=== PATIENT | male | born 1960 | race Caucasian/White ===

== ENCOUNTER 2016-11-13 13:08 | Inpatient (IN) | payer OTHER ==
[~2016-11-13] VITALS: Ht 185.4 cm; Wt 119.5 kg
[2016-11-13] MEDS ORDERED: SODIUM CHLOR 0.9% 1000 ML INJ 1,000 ML IV SCH ×2 (13:24)
--- NOTE | 2016-11-13 13:27 | PD ---
HPI Chief Complaint: general weakness Time Seen by Provider: 13:27 Travel History International Travel<30 days: No Contact w/Intl Traveler<30days: No History of Present Illness HPI 56-year-old male is brought to the emergency department by EMS for evaluation of generalized weakness for about 2 weeks. Per EMS report the patient initially had an oxygen saturation of 88% on room air. He was given 1 albuterol nebulizer and Solu-Medrol 125 mg IV. Once placed on oxygen his saturation improved to 95% on 2 L. The patient states that he's "felt sick" for the last 2 weeks. States that he has had a productive cough. States he has had some shortness of breath over the last several days as well. Denies fever, chills, nausea, vomiting, diarrhea, chest pain, abdominal pain. States that he feels a little confused and "out of it." He denies any alcohol or drug use. He denies any medical history. States that he has a remote history of smoking cigarettes for 20 years. States that his neighbor called 911 because he had seen him in several days because he's been laying in bed for about one week. No other complaints. Does not have a PCP. [facility] Social History Alcohol Use: No Tobacco Use: No (remote history) Substance Use: No (remote history of marijuana use) Allergies-Medications (Allergen,Severity, Reaction): Coded Allergies: No Known Allergies (Unverified , 11/13/16) Reported Meds & Prescriptions Reported Meds & Active Scripts Active No Active Prescriptions or Reported Medications Review of Systems Except as stated in HPI: all other systems reviewed are Neg Physical Exam Narrative GENERAL: Well-nourished and well-developed male patient in no acute distress who is nontoxic appearing. SKIN: Warm and dry. Few scattered erythematous lesions to bilateral lower legs. HEAD: Normocephalic and atraumatic. EYES: No injection, drainage, or hyphema noted. PERRLA. EOMI. ENT: No nasal drainage noted. Oropharynx is clear. NECK: Supple and the trachea is midline. CARDIOVASCULAR: Regular rate and rhythm. RESPIRATORY: Mild wheeze to right upper lobe. No accessory muscle use, rhonchi , or crackles. GASTROINTESTINAL: Abdomen is soft, non-tender, and nondistended. MUSCULOSKELETAL: Mild swelling of bilateral ankles. Negative Jaime's sign. No obvious deformities, cyanosis, or ecchymosis is present throughout the upper and lower extremities. Patient has full range of motion without any signs of neurovascular compromise. NEUROLOGICAL: Awake, alert, and oriented. Normal speech and gait. Cranial nerves are grossly intact. Data Data Last Documented VS Vital Signs Date Time Temp Pulse Resp B/P Pulse Ox O2 Delivery O2 Flow Rate FiO2 11/13/16 14:54 104 20 115/68 96 Nasal Cannula 4 11/13/16 13:38 98.6 Orders Complete Blood Count With Diff (11/13/16 13:24) Comprehensive Metabolic Panel (11/13/16 13:24) Act Partial Throm Time (Ptt) (11/13/16 13:24) Prothrombin Time / Inr (Pt) (11/13/16 13:24) Urinalysis - C+S If Indicated (11/13/16 13:24) Influenzae A/B Antigen (11/13/16 13:24) Iv Access Insert/Monitor (11/13/16 13:24) Electrocardiogram (11/13/16 13:24) Ecg Monitoring (11/13/16 13:24) Oximetry (11/13/16 13:24) Oxygen Administration (11/13/16 13:24) Chest, Single Ap (11/13/16 13:24) Sodium Chloride 0.9% Flush (Ns Flush) (11/13/16 13:30) Albuterol-Ipratropium Neb (Duoneb Neb) (11/13/16 13:30) Blood Culture (11/13/16 13:24) Ct Brain W/O Iv Contrast(Rout) (11/13/16 13:24) Sodium Chloride 0.9% Flush (Ns Flush) (11/13/16 13:30) Sodium Chlor 0.9% 1000 Ml Inj (Ns 1000 M (11/13/16 13:24) Sodium Chlor 0.9% 1000 Ml Inj (Ns 1000 M (11/13/16 13:24) Alcohol (Ethanol) (11/13/16 13:26) Drug Screen, Random Urine (11/13/16 13:26) Ct Pulmonary Angiogram (11/13/16 13:28) Lactic Acid Sepsis Protocol (11/13/16 14:15) Blood Culture (11/13/16 14:15) Piperacil-Tazo 4.5 Gm Premix (Zosyn 4.5 (11/13/16 14:15) Azithromycin Inj (Zithromax Inj) (11/13/16 14:15) Isolation 08,20 (11/13/16 14:28) Equip, Isolation Cart (11/13/16 14:28) Iohexol 350 Inj (Omnipaque 350 Inj) (11/13/16 16:08) Invasive Rad Dept Consult (11/13/16 16:22) Us Guided Thoracentesis (11/13/16 ) Amylase, Pleural Fluid (11/13/16 16:23) Glucose, Pleural Fluid (11/13/16 16:23) Ldh, Pleural Fluid (11/13/16 16:23) Pleural Fluid Ph (11/13/16 16:23) Pleural Fl Cell Count + Diff (11/13/16 16:23) Fluid Culture And Gram Stain (11/13/16 16:23) Fluid Afb Culture And Stain (11/13/16 16:23) Fluid Fungus Culture And Stain (11/13/16 16:23) Cytology Request For Service (11/13/16 16:23) Total Protein, Pleural Fluid (11/13/16 16:23) Labs Laboratory Tests Test 11/13/16 11/13/16 13:30 14:30 White Blood Count 35.0 TH/MM3 Red Blood Count 4.10 MIL/MM3 Hemoglobin 12.6 GM/DL Hematocrit 37.8 % Mean Corpuscular Volume 92.2 FL Mean Corpuscular Hemoglobin 30.9 PG Mean Corpuscular Hemoglobin 33.5 % Concent Red Cell Distribution Width 14.3 % Platelet Count 389 TH/MM3 Mean Platelet Volume 7.2 FL Neutrophils (%) (Auto) 89.6 % Lymphocytes (%) (Auto) 4.2 % Monocytes (%) (Auto) 5.7 % Eosinophils (%) (Auto) 0.0 % Basophils (%) (Auto) 0.5 % Neutrophils # (Auto) 31.3 TH/MM3 Lymphocytes # (Auto) 1.5 TH/MM3 Monocytes # (Auto) 2.0 TH/MM3 Eosinophils # (Auto) 0.0 TH/MM3 Basophils # (Auto) 0.2 TH/MM3 CBC Comment AUTO DIFF Differential Total Cells 100 Counted Neutrophils % (Manual) 91 % Band Neutrophils % 4 % Lymphocytes % 3 % Monocytes % 1 % Neutrophils # (Manual) 33.6 TH/MM3 Promyelocytes 1 % Differential Comment FINAL DIFF MANUAL Platelet Estimate NORMAL Platelet Morphology Comment NORMAL Prothrombin Time 15.4 SEC Prothromb Time International 1.4 RATIO Ratio Activated Partial 28.0 SEC Thromboplast Time Sodium Level 126 MEQ/L Potassium Level 4.0 MEQ/L Chloride Level 84 MEQ/L Carbon Dioxide Level 34.2 MEQ/L Anion Gap 8 MEQ/L Blood Urea Nitrogen 21 MG/DL Creatinine 0.86 MG/DL Estimat Glomerular Filtration 92 ML/MIN Rate Random Glucose 118 MG/DL Calcium Level 8.2 MG/DL Total Bilirubin 1.4 MG/DL Aspartate Amino Transf 56 U/L (AST/SGOT) Alanine Aminotransferase 48 U/L (ALT/SGPT) Alkaline Phosphatase 176 U/L Total Protein 7.6 GM/DL Albumin 1.6 GM/DL Lactic Acid Level 2.4 mmol/L MDM Medical Decision Making Medical Screen Exam Complete: Yes Emergency Medical Condition: Yes Differential Diagnosis Pneumonia versus sepsis versus dehydration versus PE Narrative Course 56-year-old male is brought to the emergency department by EMS for evaluation of generalized weakness with hypoxia. Patient is afebrile. He is tachycardic with a heart rate of 115 bpm. His oxygen saturation is 88% on room air. Once placed on 2 L of nasal cannula it improved to 95%. IV access is obtained, labs have been drawn and sent. Patient is placed on cardiac telemetry and pulse oximetry monitoring. Patient is given 2 more nebulizer treatments and IV fluids. CBC shows leukocytosis with a white count of 35 with 91% neutrophils. CMP shows hyponatremia with a sodium of 126. Mild dehydration with a BUN of 21. Kidney functions within normal limits. Lactic acid is 2.4. Coags show INR is elevated at 1.4, indicating intrinsic coagulopathy. Chest x-ray shows large 7.7 x 7.8 cm cavitary right midlung mass with associated small to moderate right-sided pleural effusion. Subcentimeter left mid lung pulmonary nodules. Apparently expansile left posterior ninth rib lesion. Overall findings are consistent with metastatic disease. Recommend further evaluation with CT scan. After chest x-ray findings patient is covered with Zosyn 4.5 g and Zithromax 500 mg IV and is placed on respiratory isolation. He does have risk factors for TB with recent night sweats and being [facility] [address] pulmonary angiogram is negative for PE. Shows multiple cavitary lesions within both lungs with the largest measuring 9.5 cm in the right upper lobe. Differential diagnosis includes infectious and neoplastic etiologies. Moderate size right pleural effusion with adjacent compressive atelectasis and/or infiltrate. Cardiomegaly and coronary artery calcifications. Subcarinal mediastinal lymphadenopathy. Degenerative changes throughout the thoracic spine. Patient is reassessed and has remained stable. He is currently on 5 L of nasal cannula with oxygen saturation of 96%. My attending physician spoke with interventional radiology and ordered a thoracentesis of the pleural effusion. The patient will be admitted to the negative turner apprentice service. I discussed the case with my attending physician Dr. Magana who is aware of the patients history, physical examination findings, and treatment plan. Physician Communication Physician Communication My attending physician Dr. Magana spoke with Dr. Padilla with IR and placed an order for thoracentesis. I spoke with Dr. Velez negative turner apprentice who agrees to admit the patient to his service. Diagnosis Primary Impression: Sepsis Qualified Code: A41.9 - Sepsis, due to unspecified organism Additional Impressions: Cavitary lung disease Pleural effusion Admitting Information Admitting Physician Requests: Admit Scripts No Active Prescriptions or Reported Meds Latesha Diego Nov 13, 2016 13:27
[2016-11-13] MEDS ORDERED: SODIUM CHLORIDE 0.9% FLUSH 10 ML FLUSH IVF PRN (13:30)
[2016-11-13] MEDS ORDERED: SODIUM CHLORIDE 0.9% FLUSH 5 ML FLUSH IV FLUSH PRN (13:30)
[2016-11-13 13:33] VITALS: O2SAT 92
[2016-11-13] MEDS: RESP: ALBUTEROL 2.5 MG/IPRATROPIUM 0.5 MG NEB (SCH) INH ×2 (13:33→21:06)
[2016-11-13 13:38] VITALS: BP 133/82; PULSE 115; RESP 22; TEMP 98.6; O2SAT 88
--- NOTE | 2016-11-13 13:52 | RADRPT ---
EXAM DATE/TIME: 11/13/2016 13:25 [facility] COMPARISON: No previous studies available for comparison. INDICATIONS : Short of breath. MEDICAL HISTORY : None. SURGICAL HISTORY : None. ENCOUNTER: Initial ACUITY: 1 day PAIN SCORE: Non-responsive. LOCATION: Bilateral chest FINDINGS: Large cavitary mass in the right midlung measuring 7.7 x 7.8 cm. There is associated [id number] e right-sided pleural effusion with associated right lower lobe airspace disease. There are additiona l subcentimeter nodular opacities noted in the left midlung. Cardiomediastinal contours are within no rmal limits. Apparent expansile mass in the left posterior ninth rib. CONCLUSION: 1. Large 7.7 x 7.8 cm cavitary right mid lung mass with associated small to moderate right-sided pleu ral effusion. 2. Subcentimeter left midlung pulmonary nodules. 3. Apparent expansile left posterior ninth rib lesion. 4. Overall findings are consistent with metastatic disease. Recommend further evaluation with CT exam . Elder Long MD on November 13, 2016 at 13:45 Board Certified Radiologist. This report was verified electronically.
[2016-11-13] MEDS ORDERED: PIPERACIL-TAZO 4.5 GM PREMIX 100 ML IV STA (14:15)
[2016-11-13] MEDS ORDERED: AZITHROMYCIN INJ 500 MG in SODIUM CHLOR 0.9% 250 ML INJ 250 ML IV STA (14:15)
[2016-11-13 14:16] LABS: AUTOMATED NEUTROPHIL # 31.3 TH/MM3 (1.8-7.7); BASOPHIL # 0.2 TH/MM3 (0-0.2); BASOPHIL % 0.5 % (0.0-2.0); HEMATOCRIT 37.8 % (39.0-51.0); LYMPH % 4.2 % (9.0-44.0); LYMPHOCYTE # 1.5 TH/MM3 (1.0-4.8); MEAN CELL VOLUME 92.2 FL (80.0-100.0); MEAN CORPUSCULAR HEMOGLOBIN 30.9 PG (27.0-34.0); MEAN CORPUSCULAR HGB CONC 33.5 % (32.0-36.0); MONO % 5.7 % (0.0-8.0); NEUT % 89.6 % (16.0-70.0); PLATELET COUNT 389 TH/MM3 (150-450); RED CELL DISTRIBUTION WIDTH 14.3 % (11.6-17.2)
[2016-11-13 14:18] LABS: HEMO FLAGS AUTO DIFF
[2016-11-13 14:28] LABS: INTERNATIONAL NORMALIZED RATIO 1.4 RATIO; PROTHROMBIN TIME - PATIENT 15.4 SEC (9.8-11.6)
[2016-11-13 14:29] LABS: ALT (GPT) 48 U/L (12-78); ANION GAP 8 MEQ/L (5-15); AST (GOT) 56 U/L (15-37); BICARBONATE 34.2 MEQ/L (21.0-32.0); BLOOD UREA NITROGEN 21 MG/DL (7-18); CHLORIDE 84 MEQ/L (98-107); GLOMERULAR FILTRATION RATE 92 ML/MIN (>89); SODIUM (NA) 126 MEQ/L (136-145)
[2016-11-13 14:31] LABS: ALKALINE PHOSPHATASE 176 U/L (45-117); TOTAL BILIRUBIN ADULT 1.4 MG/DL (0.2-1.0)
[2016-11-13 14:54] VITALS: BP 115/68; PULSE 104; RESP 20; O2SAT 96
--- NOTE | 2016-11-13 15:17 | PD ---
Data Data Last Documented VS Vital Signs Date Time Temp Pulse Resp B/P Pulse Ox O2 Delivery O2 Flow Rate FiO2 11/13/16 17:10 104 22 112/58 95 Nasal Cannula 5 11/13/16 13:38 98.6 Orders Complete Blood Count With Diff (11/13/16 13:24) Comprehensive Metabolic Panel (11/13/16 13:24) Act Partial Throm Time (Ptt) (11/13/16 13:24) Prothrombin Time / Inr (Pt) (11/13/16 13:24) Urinalysis - C+S If Indicated (11/13/16 13:24) Influenzae A/B Antigen (11/13/16 13:24) Iv Access Insert/Monitor (11/13/16 13:24) Electrocardiogram (11/13/16 13:24) Ecg Monitoring (11/13/16 13:24) Oximetry (11/13/16 13:24) Oxygen Administration (11/13/16 13:24) Chest, Single Ap (11/13/16 13:24) Sodium Chloride 0.9% Flush (Ns Flush) (11/13/16 13:30) Albuterol-Ipratropium Neb (Duoneb Neb) (11/13/16 13:30) Blood Culture (11/13/16 13:24) Ct Brain W/O Iv Contrast(Rout) (11/13/16 13:24) Sodium Chloride 0.9% Flush (Ns Flush) (11/13/16 13:30) Sodium Chlor 0.9% 1000 Ml Inj (Ns 1000 M (11/13/16 13:24) Sodium Chlor 0.9% 1000 Ml Inj (Ns 1000 M (11/13/16 13:24) Alcohol (Ethanol) (11/13/16 13:26) Drug Screen, Random Urine (11/13/16 13:26) Ct Pulmonary Angiogram (11/13/16 13:28) Lactic Acid Sepsis Protocol (11/13/16 14:15) Blood Culture (11/13/16 14:15) Piperacil-Tazo 4.5 Gm Premix (Zosyn 4.5 (11/13/16 14:15) Azithromycin Inj (Zithromax Inj) (11/13/16 14:15) Isolation 08,20 (11/13/16 14:28) Equip, Isolation Cart (11/13/16 14:28) Iohexol 350 Inj (Omnipaque 350 Inj) (11/13/16 16:08) Amylase, Pleural Fluid (11/13/16 16:23) Pleural Fluid Ph (11/13/16 16:23) Pleural Fl Cell Count + Diff (11/13/16 16:23) Fluid Culture And Gram Stain (11/13/16 16:23) Fluid Afb Culture And Stain (11/13/16 16:23) Fluid Fungus Culture And Stain (11/13/16 16:23) Cytology Request For Service (11/13/16 16:23) Admit Order (Ed Use Only) (11/13/16 17:08) Labs Laboratory Tests Test 11/13/16 11/13/16 11/13/16 13:26 13:30 14:30 Ethyl Alcohol Level 5 MG/DL White Blood Count 35.0 TH/MM3 Red Blood Count 4.10 MIL/MM3 Hemoglobin 12.6 GM/DL Hematocrit 37.8 % Mean Corpuscular Volume 92.2 FL Mean Corpuscular Hemoglobin 30.9 PG Mean Corpuscular Hemoglobin 33.5 % Concent Red Cell Distribution Width 14.3 % Platelet Count 389 TH/MM3 Mean Platelet Volume 7.2 FL Neutrophils (%) (Auto) 89.6 % Lymphocytes (%) (Auto) 4.2 % Monocytes (%) (Auto) 5.7 % Eosinophils (%) (Auto) 0.0 % Basophils (%) (Auto) 0.5 % Neutrophils # (Auto) 31.3 TH/MM3 Lymphocytes # (Auto) 1.5 TH/MM3 Monocytes # (Auto) 2.0 TH/MM3 Eosinophils # (Auto) 0.0 TH/MM3 Basophils # (Auto) 0.2 TH/MM3 CBC Comment AUTO DIFF Differential Total Cells 100 Counted Neutrophils % (Manual) 91 % Band Neutrophils % 4 % Lymphocytes % 3 % Monocytes % 1 % Neutrophils # (Manual) 33.6 TH/MM3 Promyelocytes 1 % Differential Comment FINAL DIFF MANUAL Platelet Estimate NORMAL Platelet Morphology Comment NORMAL Prothrombin Time 15.4 SEC Prothromb Time International 1.4 RATIO Ratio Activated Partial 28.0 SEC Thromboplast Time Sodium Level 126 MEQ/L Potassium Level 4.0 MEQ/L Chloride Level 84 MEQ/L Carbon Dioxide Level 34.2 MEQ/L Anion Gap 8 MEQ/L Blood Urea Nitrogen 21 MG/DL Creatinine 0.86 MG/DL Estimat Glomerular Filtration 92 ML/MIN Rate Random Glucose 118 MG/DL Calcium Level 8.2 MG/DL Total Bilirubin 1.4 MG/DL Aspartate Amino Transf 56 U/L (AST/SGOT) Alanine Aminotransferase 48 U/L (ALT/SGPT) Alkaline Phosphatase 176 U/L Total Protein 7.6 GM/DL Albumin 1.6 GM/DL Lactic Acid Level 2.4 mmol/L MDM Supervised Visit with KRYSTYNA: Yes Narrative Course I, Dr. Magana, have reviewed the advance practice practitioner's documentation and am in agreement, met with the patient face to face, made the diagnosis, and the medical decision making was done by me. *My assessment and Findings: This is a 56-year-old male who presents hypoxic with fever, sepsis protocol has been ordered. I reviewed his checks to x-ray which shows what could be a lung abscess versus cancer with reactive pleural effusion versus a parapneumonic effusion. Patient appears quite ill. CAT scan was obtained which does indeed show what appears to be a cavitary lesion considering its appearance staph bacteremia needs to be considered. Patient was initially discussed with Dr. Padilla for CT versus ultrasound guided thoracentesis however patient was admitted to Dr. Velez who elected to do this at the bedside. Nearly a liter of fluid was pulled off the patient's chest by Dr. Calix. She was started on broad -spectrum antibiotics. Will be admitted to the ICU. Diagnosis Primary Impression: Cavitary pneumonia Additional Impressions: Cavitary lung disease Severe sepsis Acute respiratory failure with hypoxia Admitting Information Admitting Physician Requests: Admit Scripts No Active Prescriptions or Reported Meds Condition: Serious Jed Magana MD Nov 13, 2016 15:17
[2016-11-13 15:38] LABS: BANDS 4 % (0-6); NEUTROPHIL # MANUAL DIFF 33.6 TH/MM3 (1.8-7.7); POLYS (SEG NEUTROPHILS) 91 % (16-70); PROMYELOCYTES 1 % (0-0); WBC DIFF SAMPLE 100
[2016-11-13 15:39] LABS: PLATELET ESTIMATE SMEAR NORMAL (NORMAL); PLATELET MORPHOLOGY NORMAL (NORMAL); SCAN/DIFF FINAL DIFF MANUAL
[2016-11-13] MEDS ORDERED: IOHEXOL 350 MG/ML 10 ML VIAL (for RAD DIAG) IV ONE (16:08)
--- NOTE | 2016-11-13 16:08 | RADRPT ---
EXAM DATE/TIME: 11/13/2016 15:46 [facility] COMPARISON: No previous studies available for comparison. INDICATIONS : Evaluate for altered mental status. RADIATION DOSE: 69.19 CTDIvol (mGy) MEDICAL HISTORY : None SURGICAL HISTORY : None. ENCOUNTER: Initial ACUITY: 1 week PAIN SCALE: 8/10 LOCATION: Bilateral cranial TECHNIQUE: Multiple contiguous axial images were obtained of the head. Using automated exposure control and adj ustment of the mA and/or kV according to patient size, radiation dose was kept as low as reasonably a chievable to obtain optimal diagnostic quality images. DICOM format image data is available electro nically for review and comparison. FINDINGS: CEREBRUM: Small subcentimeter left periventricular white matter hypodensity likely reflects small lacunar infar ct. The ventricles are normal for age. No evidence of midline shift, mass lesion, hemorrhage or acut e infarction. No extra-axial fluid collections are seen. POSTERIOR FOSSA: The cerebellum and brainstem are intact. The 4th ventricle is midline. The cerebellopontine angle i s unremarkable. EXTRACRANIAL: The visualized portion of the orbits is intact. SKULL: The calvaria is intact. No evidence of skull fracture. Probable small mucus retention cysts in the a ctually sinuses bilaterally. CONCLUSION: 1. No acute intracranial abnormality. Elder Long MD on November 13, 2016 at 16:03 Board Certified Radiologist. This report was verified electronically.
--- NOTE | 2016-11-13 16:24 | RADRPT ---
EXAM DATE/TIME: 11/13/2016 15:50 [facility] COMPARISON: No previous studies available for comparison. INDICATIONS : Evaluate for pulmonary embolism. IV CONTRAST: 75 cc Omnipaque 350 (iohexol) IV RADIATION DOSE: 13.28 CTDIvol (mGy) MEDICAL HISTORY : None SURGICAL HISTORY : None. ENCOUNTER: Initial ACUITY: 1 week PAIN SCALE: 8/10 LOCATION: Bilateral chest TECHNIQUE: Volumetric scanning of the chest was performed using a pulmonary embolism protocol MIP images were re constructed. Using automated exposure control and adjustment of the mA and/or kV according to patien t size, radiation dose was kept as low as reasonably achievable to obtain optimal diagnostic quality images. DICOM format image data is available electronically for review and comparison. FINDINGS: There is no evidence of pulmonary embolism. A moderate sized right pleural effusion is noted. Compr essive atelectasis and/or infiltrate is noted adjacent to the right pleural effusion. There are mult iple cavitary lesions throughout both lungs. The largest cavitary lesion is located within the right upper lobe and measures 9.5 cm in greatest dimension. Differential diagnosis includes infectious an d neoplastic etiologies. Subcarinal lymphadenopathy is noted measuring 2.2 cm in greatest dimension. Coronary artery calcifications are noted. There are scattered un-enlarged pretracheal, precarinal and AP window lymph nodes. No axillary lymphadenopathy is noted. No hilar lymphadenopathy is noted. The heart is enlarged. Degenerative changes are noted throughout the thoracic spine. CONCLUSION: 1. Multiple cavitary lesions within both lungs with the largest measuring 9.5 cm in the right upper lobe. Differential diagnosis includes infectious and neoplastic etiologies. 2. Moderate sized right pleural effusion with adjacent compressive atelectasis and/or infiltrate. 3. Cardiomegaly and coronary artery calcifications. 4. Subcarinal mediastinal lymphadenopathy. 5. Degenerative changes throughout the thoracic spine. Jed Ponce MD on November 13, 2016 at 16:10 Board Certified Radiologist. This report was verified electronically.
[2016-11-13 16:38] LABS: LACTIC ACID GHOST NOT REPORTABLE
[2016-11-13 17:10] VITALS: BP 112/58; PULSE 104; RESP 22; O2SAT 95
[2016-11-13] MEDS ORDERED: CHLORHEXIDINE GLUCONATE 2 % 1 PACK (2 CLOTHS) TOP PRN (17:15)
[2016-11-13] MEDS ORDERED: MISCELLANEOUS NURSING INFORMATION XX SCH (17:15)
[2016-11-13] MEDS ORDERED: Vancomycin Consult Pharmacy 1 EA OTHER SCH (17:30)
[2016-11-13] MEDS ORDERED: VANCOMYCIN INJ 1,250 MG in SODIUM CHLOR 0.9% 250 ML INJ 250 ML IV ONE (17:30)
--- NOTE | 2016-11-13 18:05 | HHI.HP ---
HPI Service Critical Care Medicine Primary Care Physician No Primary Care Physician Admission Diagnosis Sepsis, Pulmonary Cavitary Lesions, Pleural Effusion, Hypoxia Diagnosis: (1) Severe sepsis Diagnosis: Principal (2) Cavitary pneumonia Diagnosis: Principal (3) Pleural effusion Diagnosis: Principal (4) Acute respiratory insufficiency Diagnosis: Principal (5) Hyponatremia Diagnosis: Principal (6) Hypoxia Diagnosis: Principal (7) Leukocytosis Diagnosis: Principal Chief Complaint: Severe sepsis Encephalopathy Travel History International Travel<30 Days: No Contact w/Intl Traveler <30 Da: No Traveled to Known Affected Are: No Sepsis Criteria SIRS Criteria (2 or more): Heart rate over 90, RR > 20 or PaCO2 < 32, WBC > 78031, < 4000 or > 10% bands Sepsis Criteria (SIRS+source): Infect source susp/known Severe Sepsis (+one): Lactate >2 Criteria Outcome: Meets severe sepsis criteria History of Present Illness 56-year-old male is brought to the emergency department by EMS for evaluation of generalized weakness, confusion for about 2 weeks, and also increasing shortness of breath. His oxygen saturation was 88% on room air. EMS administered breathing treatments and Solu-Medrol 125 mg 1 and placed him on nasal cannula. Patient states that he had been sick for almost 10 days, but he is a poor historian. He had a productive cough, but reports no hematemesis or weight loss. He states that it was his neighbor who made him called EMS. He has no past medical history and last time had seen a doctor was about 15 years ago. He denies any fevers but reports some night sweats and chills. He was tachycardic with a heart rate of 115 bpm, had severe leukocytosis with a white count of 35,000 with 91% neutrophils. CMP shows hyponatremia with a sodium of 126. Lactic acid is 2.4. His Chest x-ray shows large 7.7 x 7.8 cm cavitary right midlung lesion with associated right-sided pleural effusion. Subcentimeter left mid lung pulmonary nodules. Patient received 1 L normal saline bolus and Zosyn 4.5 g and Zithromax 500 mg IV and was placed on TB/ respiratory isolation. He has been being in halfway 2 years ago increasing his risk of tuberculosis. CT pulmonary angiogram negative for PE but showed multiple cavitary lesions within both lungs with the largest measuring 9.5 cm in the right upper lobe. Moderate size right pleural effusion. I evaluated the patient in the emergency department. Patient appears critically ill in moderate distress mildly tachypneic, sweating. I performed a bedside ultrasound which showed a right effusion which is large. The thoracentesis was performed and 1 L of cloudy dark pleural fluid was removed. Patient will be continued on Zosyn and Levaquin and vancomycin. ID consulted and I discussed with Dr. Kraus-she recommended no empiric treatments for TB. Review of Systems ROS Limitations: Other (as per HPI) Past Family Social History Allergies: Coded Allergies: No Known Allergies (Unverified , 11/13/16) Past Medical History No significant past medical history Quit smoking in 1996 Past Surgical History No surgeries Reported Medications No medications Active Ordered Medications Received Zosyn and azithromycin in the ER Family History Patient does not give any pertinent family history Social History Quit smoking in 1996. No alcohol abuse. History of cocaine and cannabis use in Physical Exam Vital Signs Vital Signs Date Time Temp Pulse Resp B/P Pulse Ox O2 Delivery O2 Flow Rate FiO2 11/13/16 17:10 104 22 112/58 95 Nasal Cannula 5 11/13/16 14:54 104 20 115/68 96 Nasal Cannula 4 11/13/16 13:42 94 Nasal Cannula 3 11/13/16 13:38 98.6 115 22 133/82 88 11/13/16 13:33 92 Nasal Cannula 4.00 Physical Exam GENERAL: Well-nourished and well-developed male patient in moderate respiratory distress, sweating, appears toxic SKIN: Warm and dry. Scattered skin lesions erythematous predominantly left lower extremity, (probable bug bites per patient) HEAD: Normocephalic and atraumatic. EYES: No injection, drainage. PERRLA. ENT: No nasal drainage noted. Oropharynx is clear. NECK: Supple and the trachea is midline. CARDIOVASCULAR: Tachycardic, no murmurs. RESPIRATORY: Patient is tachypneic with mild accessory muscle use, bilateral mild expiratory wheezing and few crackles scattered GASTROINTESTINAL: Abdomen is soft, non-tender, and nondistended. MUSCULOSKELETAL: Mild swelling of bilateral ankles. Multiple erythematous raised lesions on bilateral lower extremity predominantly left lower leg NEUROLOGICAL: Awake, alert. Normal speech. Cranial nerves are grossly intact. Laboratory Laboratory Tests Test 11/13/16 11/13/16 13:30 14:30 White Blood Count 35.0 Red Blood Count 4.10 Hemoglobin 12.6 Hematocrit 37.8 Mean Corpuscular Volume 92.2 Mean Corpuscular Hemoglobin 30.9 Mean Corpuscular Hemoglobin 33.5 Concent Red Cell Distribution Width 14.3 Platelet Count 389 Mean Platelet Volume 7.2 Neutrophils (%) (Auto) 89.6 Lymphocytes (%) (Auto) 4.2 Monocytes (%) (Auto) 5.7 Eosinophils (%) (Auto) 0.0 Basophils (%) (Auto) 0.5 Neutrophils # (Auto) 31.3 Lymphocytes # (Auto) 1.5 Monocytes # (Auto) 2.0 Eosinophils # (Auto) 0.0 Basophils # (Auto) 0.2 CBC Comment AUTO DIFF Differential Total Cells 100 Counted Neutrophils % (Manual) 91 Band Neutrophils % 4 Lymphocytes % 3 Monocytes % 1 Neutrophils # (Manual) 33.6 Promyelocytes 1 Differential Comment FINAL DIFF MANUAL Platelet Estimate NORMAL Platelet Morphology Comment NORMAL Prothrombin Time 15.4 Prothromb Time International 1.4 Ratio Activated Partial 28.0 Thromboplast Time Sodium Level 126 Potassium Level 4.0 Chloride Level 84 Carbon Dioxide Level 34.2 Anion Gap 8 Blood Urea Nitrogen 21 Creatinine 0.86 Estimat Glomerular Filtration 92 Rate Random Glucose 118 Calcium Level 8.2 Total Bilirubin 1.4 Aspartate Amino Transf 56 (AST/SGOT) Alanine Aminotransferase 48 (ALT/SGPT) Alkaline Phosphatase 176 Total Protein 7.6 Albumin 1.6 Lactic Acid Level 2.4 Date/Time Procedure Status Source Growth 11/13/16 14:00 Influenza Types A,B Antigen ([facility]) - Final Complete Nasal Washing NEGATIVE FOR FLU A AND B ANTIGEN.... 11/13/16 13:30 Aerobic Blood Culture Received Blood Peripheral Pending 11/13/16 13:30 Anaerobic Blood Culture Received Blood Peripheral Pending Result Diagram: 11/13/16 1330 11/13/[address] of the chest shows multiple cavitated relations, large 9.5 cm cavitated lesion in the right upper lobe, moderate-sized right pleural effusion Septic Shock Reassessment Heart: Irregular, Other (tachycardic) Lungs: Course, Crackles Skin: Warm Peripheral Pulses: Bounding Right Radial Bounding Left Radial Capillary Refill: Brisk Assessment and Plan Assessment and Plan NEURO: Metabolic encephalopathy - His encephalopathy seems to be secondary to severe sepsis - Minimize sedation RESP: Bilateral cavitary lung lesions/most likely cavitating pneumonia Respiratory insufficiency with hypoxia Large right pleural effusion - Right thoracentesis with 1 L cloudy yellow fluid removed, fluid cell studies pending - Patient will need pig tail chest tube if pleural effusion is parapneumonic - Broad-spectrum antibiotics with vancomycin and Zosyn and Levaquin - DuoNeb every 6 hours and when necessary - AFB isolation, sputum culture including AFB stain - Pulmonology consult pending - Patient's presentation more consistent with cavitating bacterial pneumonia, cannot rule out tuberculosis or malignancy - Await fluid studies CV: Lactic acidosis - Normal saline IV fluids 3L bolus and 84 ml per hour - 2d echo to rule out infective endocarditis - Trend lactic acid GI: - Once clinically stable, heart healthy diet, IV Protonix - CT of the abdomen pelvis to rule out any evidence of metastatic disease or abscesses : - Monitor renal function closely. Fluid resuscitation as above ID: Severe sepsis Multilobar cavitating pneumonia - IV vancomycin, pharmacy to dose. Zosyn 4.5 g every 6 hours. Levaquin 750 mg daily - Discussed with ID Dr. Kraus, no indication for empiric treatment for TB - Follow-up on blood sputum cultures, send urine for Legionella and pneumococcal antigen HEME: - Monitor CBC, CMP, coags ENDO: Hyponatremia - Hyponatremia may be secondary to SIADH from pneumonia versus malignancy - Electrolyte Replacement per protocol PROPH: - Bilateral lower extremity SCDs. Lovenox, IV Protonix for prophylaxis LINES: - Utilize peripheral IVs, central line if needed CC time 77 min excluding procedures Code Status Full Discussed Condition With Jan Jay MD Nov 13, 2016 18:05
[2016-11-13] MEDS ORDERED: VANCOMYCIN INJ 2,000 MG in SODIUM CHLORID 0.9% 500 ML INJ 500 ML IV ONE (18:10)
--- NOTE | 2016-11-13 18:21 | PD.PROCEDR ---
Procedure Note Procedure Procedure Notes: Thoracentesis Indication: Large right pleural effusion A time-out was completed verifying correct patient, procedure, site, positioning , and special equipment if applicable. The patient's right side was prepped and draped in a sterile manner after the appropriate infiltration level was confirmed by ultrasound. 1% lidocaine was used anesthetize the surrounding skin. A 10-blade scalpel used to make the incision. The thoracentesis Angio cath was then introduced without difficulty and needle was removed. Catheter was connected to Vacutainer bottle and 1000 ml (1L) of cloudy dark yellow fluid was removed. A post-procedure chest x-ray was ordered and the fluid will be sent for several studies. Estimated Blood Loss: <1 ml The patient tolerated the procedure well and there were no immediate complications. Fluid send out for further studies Jan Velez MD Nov 13, 2016 18:21
[2016-11-13] MEDS: SODIUM CHLOR 0.9% 1000 ML INJ 1,000 ML IV SCH (18:22)
[2016-11-13] MEDS: LEVOFLOXACIN 750 MG PREMIX INJ 150 ML IV SCH (18:23)
[2016-11-13] MEDS ORDERED: SODIUM CHLOR 0.9% 1000 ML INJ 1,000 ML IV ONE ×2 (18:30→19:00)
--- NOTE | 2016-11-13 18:43 | RADRPT ---
EXAM DATE/TIME: 11/13/2016 18:32 [facility] COMPARISON: CT PULMONARY ANGIOGRAM, November 13, 2016, 15:50. CHEST SINGLE AP, November 13, 2016, 13:25. INDICATIONS : Post right side thoracentesis. Multiple cavitary lesions in both lungs. MEDICAL HISTORY : None. SURGICAL HISTORY : None. ENCOUNTER: Initial ACUITY: 1 day PAIN SCORE: 0/10 LOCATION: Right chest FINDINGS: A single AP expiratory erect view of the chest was obtained and demonstrates an interval decrease in the right pleural effusion with no visualized pneumothorax. There is a small residual right effusion. A large cavitary mass is again noted in the right midlung. There is mild patchy opacity in the left lung. The heart size remains within normal limits. The bony thorax is intact. CONCLUSION: 1. Interval decrease in the right pleural effusion with no visualized pneumothorax. 2. Large cavitary mass again noted in the right midlung. Krzysztfo Mendez MD on November 13, 2016 at 18:38 Board Certified Radiologist. This report was verified electronically.
--- NOTE | 2016-11-13 18:54 | RADRPT ---
EXAM DATE/TIME: 11/13/2016 18:33 [facility] COMPARISON: No previous studies available for comparison. INDICATIONS : Patient with shortness of breath, right effusion and multiple cavitary pulmonary masses. Evaluate for metastasis. ORAL CONTRAST: No oral contrast ingested. RADIATION DOSE: 10.03 CTDIvol (mGy) MEDICAL HISTORY : None SURGICAL HISTORY : None. ENCOUNTER: Initial ACUITY: 1 day PAIN SCALE: 0/10 LOCATION: TECHNIQUE: Volumetric scanning of the abdomen and pelvis was performed. Using automated exposure control and ad justment of the mA and/or kV according to patient size, radiation dose was kept as low as reasonably achievable to obtain optimal diagnostic quality images. DICOM format image data is available electro nically for review and comparison. FINDINGS: LOWER LUNGS: There is a right basilar effusion again noted which appears partially loculated. There is mild consol idation in the right lung base. There are multiple small scattered cavitary masses in the left lower lobe as well as a larger cavitary mass in the posterior lung base measuring up to 2 cm. There is a ca vitary mass in the right lung base as well. LIVER: Homogeneous density without lesion. There is no dilation of the biliary tree. No calcified gallston es. The gallbladder is contracted. SPLEEN: Normal size without lesion. There is apparent small adjacent splenule. PANCREAS: Within normal limits. KIDNEYS: Normal in size and shape. There is no solid mass, stone, or hydronephrosis. Excreted contrast is not ed in the kidneys, ureters and bladder. There is an apparent small simple cyst in the upper pole the right kidney measuring approximately 11 mm. ADRENAL GLANDS: Within normal limits. VASCULAR: There is no aortic aneurysm. BOWEL/MESENTERY: No oral contrast was given limiting the sensitivity of the exam. The stomach, small bowel, and colon demonstrate no acute abnormality. There is no free intraperitoneal air or fluid. ABDOMINAL WALL: Within normal limits. RETROPERITONEUM: There is no lymphadenopathy. BLADDER: No wall thickening or mass. REPRODUCTIVE: Within normal limits. INGUINAL: There is no lymphadenopathy or hernia. MUSCULOSKELETAL: Within normal limits for patient age. CONCLUSION: 1. No definite evidence of metastatic disease within the abdomen or pelvis on this noncontrast exam. No oral contrast was given limiting sensitivity. 2. Ultiple cavitary masses in both lung bases again noted. 3. Excreted contrast in the kidneys from prior CT. 4. Apparent small simple cyst in the upper pole of the right kidney. 5. Loculated right effusion with mild consolidation. Krzysztof Mendez MD on November 13, 2016 at 18:46 Board Certified Radiologist. This report was verified electronically.
[2016-11-13] MEDS ORDERED: RESP: ALBUTEROL 2.5 MG/IPRATROPIUM 0.5 MG NEB (SCH) INH (20:00)
[2016-11-13 20:52] VITALS: BP 132/83; PULSE 97; RESP 20; TEMP 97.7; O2SAT 98
[2016-11-13] MEDS: DOCUSATE SODIUM 50 MG/SENNA 8.6 MG TAB PO SCH (21:00)
[2016-11-13] MEDS: SODIUM CHLORIDE 0.9% FLUSH 10 ML FLUSH IV FLUSH SCH (21:00)
[2016-11-13 21:04] LABS: PLEURAL FLUID PH 8.5
[2016-11-13] MEDS: ENOXAPARIN SODIUM 40 MG/0.4 ML SYRINGE SQ SCH (21:06)
[2016-11-13] MEDS: PIPERACIL-TAZO 4.5 GM PREMIX 100 ML IV SCH (21:06)
[2016-11-13 21:07] VITALS: O2SAT 98
[2016-11-13 21:10] LABS: PLEURAL FLUID LYMPHS 12 %
[2016-11-14] VITALS (12 sets, daily range): BP systolic 120–162; BP diastolic 67–95; PULSE 88–100; RESP 14–29; TEMP 96.3–97.8; O2SAT 89–99
[2016-11-14] MEDS: RESP: ALBUTEROL 2.5 MG/IPRATROPIUM 0.5 MG NEB (SCH) INH ×4 (03:36→22:43)
[2016-11-14] MEDS: CHLORHEXIDINE GLUCONATE 2 % 1 PACK (2 CLOTHS) TOP SCH (03:39)
[2016-11-14] MEDS: PIPERACIL-TAZO 4.5 GM PREMIX 100 ML IV SCH ×4 (03:39→21:36)
[2016-11-14] MEDS: SODIUM CHLOR 0.9% 1000 ML INJ 1,000 ML IV SCH ×2 (03:39→17:43)
[2016-11-14] MEDS: VANCOMYCIN INJ 1,250 MG in SODIUM CHLOR 0.9% 250 ML INJ 250 ML IV SCH ×2 (03:42→17:51)
--- NOTE | 2016-11-14 03:48 | RADRPT ---
EXAM DATE/TIME: 11/14/2016 03:07 [facility] COMPARISON: CHEST SINGLE AP, November 13, 2016, 18:32. INDICATIONS : Shortness of breath, possible pulmonary disease. MEDICAL HISTORY : Sepsis. Hypoxia SURGICAL HISTORY : Thoracentesis ENCOUNTER: Subsequent ACUITY: 2 days PAIN SCORE: 0/10 LOCATION: Bilateral chest FINDINGS: Cavitary mass right midlung measures 9.5 cm superior/inferior extent. Focal thickening along collate ral margin and associated blunting of the costophrenic angle. The appearance is similar to prior exa m. In the left lung peripheral mid and upper region, there are 2 new small focal areas of infiltrate . Heart is normal size. CONCLUSION: 1. Stable cavitary lesion in the right mid chest, right pleural effusion and elevation right hemidiap hragm. 2. New small infiltrates in the lateral left mid and upper left lung. Keyur Sauceda MD on November 14, 2016 at 3:44 Board Certified Radiologist. This report was verified electronically.
[2016-11-14 04:40] LABS: AUTOMATED NEUTROPHIL # 27.3 TH/MM3 (1.8-7.7); BASOPHIL # 0.1 TH/MM3 (0-0.2); BASOPHIL % 0.3 % (0.0-2.0); EOSINOPHIL % 0.1 % (0.0-4.0); HEMATOCRIT 34.1 % (39.0-51.0); HEMO FLAGS DIFF FINAL; LYMPH % 2.5 % (9.0-44.0); LYMPHOCYTE # 0.7 TH/MM3 (1.0-4.8); MEAN CELL VOLUME 92.7 FL (80.0-100.0); MEAN CORPUSCULAR HEMOGLOBIN 30.9 PG (27.0-34.0); MEAN CORPUSCULAR HGB CONC 33.3 % (32.0-36.0); MONO % 2.5 % (0.0-8.0); NEUT % 94.6 % (16.0-70.0); PLATELET COUNT 302 TH/MM3 (150-450); RED BLOOD COUNT 3.68 MIL/MM3 (4.50-5.90); RED CELL DISTRIBUTION WIDTH 14.2 % (11.6-17.2); WHITE BLOOD COUNT 28.9 TH/MM3 (4.0-11.0)
[2016-11-14 05:05] LABS: ALKALINE PHOSPHATASE 152 U/L (45-117); ALT (GPT) 42 U/L (12-78); ANION GAP 8 MEQ/L (5-15); AST (GOT) 36 U/L (15-37); BICARBONATE 30.5 MEQ/L (21.0-32.0); BLOOD UREA NITROGEN 18 MG/DL (7-18); CHLORIDE 98 MEQ/L (98-107); GLOMERULAR FILTRATION RATE 125 ML/MIN (>89); POTASSIUM 3.6 MEQ/L (3.5-5.1); SODIUM (NA) 136 MEQ/L (136-145); TOTAL BILIRUBIN ADULT 0.7 MG/DL (0.2-1.0)
[2016-11-14] MEDS ORDERED: ONDANSETRON HCL 4 MG/2 ML VIAL IV PUSH PRN (06:30)
[2016-11-14] MEDS: INSULIN ASPART SUPPLEMENTAL SCALE SQ SCH ×4 (07:00→21:00)
[2016-11-14] MEDS ORDERED: MORPHINE SULFATE 8 MG/ML INJ ONE (07:01)
[2016-11-14] MEDS ORDERED: MORPHINE SULFATE 4 MG/ML INJ IV ONE ×3 (07:15→13:45)
--- NOTE | 2016-11-14 08:07 | EKG ---
Date Performed: 11/13/2016 Time Performed: 13:55:18 PTAGE: 56 years EKG: SINUS TACHYCARDIA POSSIBLE LEFT ATRIAL ENLARGEMENT ABNORMAL RHYTHM ECG NO PREVIOUS TRACING DOCTOR: Heriberto Prince Interpretating Date/Time 11/14/2016 08:01:02
--- NOTE | 2016-11-14 08:28 | HHI.CCPN ---
Subjective Remarks/Hospital Course 56-year-old male is brought to the emergency department by EMS for evaluation of generalized weakness, confusion for about 2 weeks, and also increasing shortness of breath. His oxygen saturation was 88% on room air. EMS administered breathing treatments and Solu-Medrol 125 mg 1 and placed him on nasal cannula. Patient states that he had been sick for almost 10 days, but he is a poor historian. He had a productive cough, but reports no hematemesis or weight loss. He states that it was his neighbor who made him called EMS. He has no past medical history and last time had seen a doctor was about 15 years ago. He denies any fevers but reports some night sweats and chills. He was tachycardic with a heart rate of 115 bpm, had severe leukocytosis with a white count of 35,000 with 91% neutrophils. CMP shows hyponatremia with a sodium of 126. Lactic acid is 2.4. His Chest x-ray shows large 7.7 x 7.8 cm cavitary right midlung lesion with associated right-sided pleural effusion. Subcentimeter left mid lung pulmonary nodules. Patient received 1 L normal saline bolus and Zosyn 4.5 g and Zithromax 500 mg IV and was placed on TB/ respiratory isolation. He has been being in longterm 2 years ago increasing his risk of tuberculosis. CT pulmonary angiogram negative for PE but showed multiple cavitary lesions within both lungs with the largest measuring 9.5 cm in the right upper lobe. Moderate size right pleural effusion. I evaluated the patient in the emergency department. Patient appears critically ill in moderate distress mildly tachypneic, sweating. I performed a bedside ultrasound which showed a right effusion which is large. The thoracentesis was performed and 1 L of cloudy dark pleural fluid was removed. Patient will be continued on Zosyn and Levaquin and vancomycin. ID consulted and I discussed with Dr. Kraus-she recommended no empiric treatments for TB. SUBJ 11/14/16: Patient seen and examined complaints of severe epigastric and periumbilical abdominal pain. Patient remains oriented to person. His white count is slightly improved from 35,000-28,9000. Na improved to 136. I have ordered a STAT CT abd/pelvis with IV contrast. Chest x-ray shows reaccumulation of right pleural effusion-fluid chemistries are pending but cell count indicates at least a parapneumonic effusion and patient will need a pigtail chest tube Objective Vital Signs Date Time Temp Pulse Resp B/P Pulse Ox O2 Delivery O2 Flow Rate FiO2 11/14/16 04:00 97.5 100 29 129/95 92 11/13/16 21:07 Nasal Cannula 5.00 Intake and Output 11/13/16 11/13/16 11/14/16 08:00 16:00 00:00 Intake Total 1042 ml Output Total 850 ml Balance 192 ml Result Diagram: 11/14/16 0406 11/14/16 0406 Other Results Microbiology Date/Time Procedure Status Source Growth 11/13/16 14:00 Influenza Types A,B Antigen ([facility]) - Final Complete Nasal Washing NEGATIVE FOR FLU A AND B ANTIGEN.... Imaging CT of the chest shows multiple cavitated relations, large 9.5 cm cavitated lesion in the right upper lobe, moderate-sized right pleural effusion Objective Remarks GENERAL: Well-nourished and well-developed male patient in moderate distress, toxic appearing SKIN: Warm and dry. Scattered skin lesions erythematous predominantly left lower extremity, (probable bug bites per patient) HEAD: Normocephalic and atraumatic. EYES: No injection, drainage. AMURO. ENT: No nasal drainage noted. Oropharynx is clear. NECK: Supple and the trachea is midline. CARDIOVASCULAR: Tachycardic, no murmurs. RESPIRATORY: Patient is slightly tachypneic with mild accessory muscle use, bilateral mild expiratory wheezing and few crackles GASTROINTESTINAL: Abdomen is soft, reports tenderness in the periumbilical region and epigastric region. No rebound or guarding MUSCULOSKELETAL: Mild swelling of bilateral ankles. Multiple erythematous raised lesions on bilateral lower extremity predominantly left lower leg NEUROLOGICAL: Awake, alert. Normal speech. Cranial nerves are grossly intact. Urinary Catheter: Yes Assessment to: Continue A/P Assessment and Plan NEURO: Metabolic encephalopathy - Encephalopathy seems to be secondary to severe sepsis - Minimize sedation - Morphine 2 mg IV every 6 hours when necessary RESP: Bilateral cavitary lung lesions/most likely cavitating pneumonia Respiratory insufficiency with hypoxia Large right pleural effusion - Right thoracentesis with 1 L cloudy yellow fluid removed, fluid cell studies WBC 2,600, chemistry pending - Patient will need pig tail chest tube - Broad-spectrum antibiotics with vancomycin and Zosyn and Levaquin - DuoNeb every 6 hours and when necessary - AFB isolation, sputum culture including AFB stain - Pulmonology consult pending, ID consult pending - Patient's presentation more consistent with cavitating bacterial pneumonia, cannot rule out tuberculosis or malignancy CV: Lactic acidosis - Normal saline IV fluids 3L bolus 11/13/16 and continue 84 ml per hour - 2d echo to rule out infective endocarditis - Trend lactic acid GI: Acute abdominal pain - NPO, IV Protonix. Check amylase, lipase STAT - CT of the abdomen pelvis with IV contrast stat due to 02/25 acute abdominal pain : - Monitor renal function closely. Fluid resuscitation as above ID: Severe sepsis Multilobar cavitating pneumonia - IV vancomycin, pharmacy to dose. Zosyn 4.5 g every 6 hours, Levaquin 750 mg IV daily - Discussed with ID Dr. Kraus, no indication for empiric treatment for TB - Follow-up on blood sputum cultures, f/u urine for Legionella and pneumococcal antigen HEME: - Monitor CBC, CMP, coags ENDO: Hyponatremia - Hyponatremia may be secondary to SIADH from pneumonia versus malignancy - Electrolyte Replacement per protocol PROPH: - Bilateral lower extremity SCDs. Lovenox, IV Protonix for prophylaxis LINES: - Utilize peripheral IVs, central line if needed CC time 45 min excluding procedures Patient remains critically ill with severe sepsis, multilobar cavitating pneumonia, metabolic encephalopathy and now with severe abdominal pain. His respiratory status remains tenuous, and he may progress to respiratory failure requiring intubation Jan Velez MD Nov 14, 2016 08:28
[2016-11-14] MEDS ORDERED: MORPHINE SULFATE 4 MG/ML INJ IV PUSH PRN (09:00)
[2016-11-14] MEDS ORDERED: PANTOPRAZOLE SODIUM 40 MG VIAL IV SCH (09:00)
[2016-11-14] MEDS: SODIUM CHLORIDE 0.9% FLUSH 10 ML FLUSH IV FLUSH SCH ×2 (09:05→21:36)
[2016-11-14] MEDS: DOCUSATE SODIUM 50 MG/SENNA 8.6 MG TAB PO SCH ×2 (09:05→21:35)
[2016-11-14] MEDS ORDERED: IOHEXOL 350 MG/ML 10 ML VIAL (for RAD DIAG) IV ONE (09:59)
--- NOTE | 2016-11-14 11:29 | RADRPT ---
EXAM DATE/TIME: 11/14/2016 09:55 [facility] COMPARISON: CT ABDOMEN & PELVIS W/O CONTRAST, November 13, 2016, 18:33. INDICATIONS : Severe abdominal pain. IV CONTRAST: 85 cc Omnipaque 350 (iohexol) IV ORAL CONTRAST: No oral contrast ingested. RADIATION DOSE: 12.57 CTDIvol (mGy) MEDICAL HISTORY : None SURGICAL HISTORY : None. ENCOUNTER: Initial ACUITY: 1 day PAIN SCALE: 7/10 LOCATION: Umbilical TECHNIQUE: Volumetric scanning of the abdomen and pelvis was performed. Using automated exposure control and ad justment of the mA and/or kV according to patient size, radiation dose was kept as low as reasonably achievable to obtain optimal diagnostic quality images. DICOM format image data is available electro nically for review and comparison. FINDINGS: LOWER LUNGS: Visualized lung bases again demonstrates a slightly loculated small right pleural effusion with multi ple bilateral cavitary masses are unchanged from yesterday's CT exam. LIVER: Homogeneous density without lesion. There is no dilation of the biliary tree. No calcified gallston es. SPLEEN: Normal size without lesion. PANCREAS: Within normal limits. KIDNEYS: Kidneys demonstrate symmetrical enhancement without evidence for radiopaque renal calculi or hydronep hrosis. There is a 2.0 x 2.1 cm ill-defined hypodense lesion in the left renal midpole. There is a st able 1.2 x 1.2 cm hypodense cystic lesion in the superior pole of the right kidney with indeterminate density. Subcentimeter hypodense lesions in the inferior pole of the right kidney are too small to f ully characterize. ADRENAL GLANDS: Within normal limits. VASCULAR: Mild to moderate atherosclerotic calcifications. Non-aneurysmal. BOWEL/MESENTERY: There is concentric luminal narrowing of the gastroduodenal junction which appears similar to yesterd ay's CT examination. There is no definitive associated mass or regional adenopathy. Small bowel is no t dilated. However, there are multiple loops of fluid-filled small bowel which are larger in caliber in comparison to yesterday's exam. This may reflect developing adynamic ileus. Bowel otherwise appear s grossly unremarkable. There is no significant free fluid or drainable fluid collection. ABDOMINAL WALL: Within normal limits. RETROPERITONEUM: There is no lymphadenopathy. BLADDER: No wall thickening or mass. REPRODUCTIVE: Within normal limits. INGUINAL: There is no lymphadenopathy or hernia. MUSCULOSKELETAL: No definite focal lytic or blastic bony lesions. CONCLUSION: 1. Multiple loops of fluid-filled small bowel which are larger in caliber in comparison to yesterday' s examination although not enlarged by size criteria. This may reflect mild enteritis versus developi ng mild adynamic ileus. 2. Persistent luminal narrowing at the gastroduodenal junction without definite focal mass. This is o f uncertain clinical significance and likely reflects gastric contraction. Gastric mass/metastatic di sease is not very likely based on appearance although it cannot be excluded. 3. 2 cm ill-defined hypodense lesion in the left renal mid pole with indeterminate density. Different ial considerations include complex cyst versus metastatic disease in this patient with apparent diffu se metastatic disease in the chest. 4. Redemonstration of multiple bilateral cavitary masses at the lung bases with loculated right pleur al effusion. Elder Long MD on November 14, 2016 at 10:47 Board Certified Radiologist. This report was verified electronically.
[2016-11-14 13:07] LABS: AMYLASE 78 U/L (25-115)
--- NOTE | 2016-11-14 14:50 | MB ---
cc: CARROLL GILBERT MD DATE OF CONSULTATION: 11/14/[address] Velez. REASON FOR CONSULTATION Multiple cavitary lesion. Risk of TB. HISTORY OF PRESENT ILLNESS This is a 56-year-old white male who presented to the emergency department with a 2-week history of weakness. He was noted to have low oxygen saturation. He reported that he had productive cough over the past couple of weeks and was experiencing shortness of breath. The patient is a poor historian. He is oriented to person and time and knows he is in the hospital but does not know which hospital. The patient had temperature of 98.6 degrees in the emergency department and a pulse of 104 and white count of 35,000 and lactic acid level of 2.4. He also was noted to have hyponatremia with sodium of 126. A chest x-ray showed a large cavitary lesion in the right lung and associated right-sided pleural effusion and also smaller left midlung pulmonary nodules. He is also noted to have a lesion at the left 9th rib. The patient was taken for thoracentesis and the fluid showed white count of 2620, 85% neutrophils, 1767 red cells and pH of 8.5. Blood cultures were taken and four bottles from 11/13 has gram-positive cocci. The pleural fluid culture is pending. The gram stain showed no organisms. Sputum culture for AFB is also pending. Pleural fluid culture for AFB is pending. The patient appears a little confused. He was sitting upright in bed and ripped off his cardiac monitoring leads. He tells me that he was getting up to take a shower. The patient denies prior history of pneumonias. He reports to me that he has been sleeping in the dow over the last few weeks. He denies night sweats and chest pain. He denies contact with sick persons. The patient tells me that he was in prison for 2 days approximately 1 year ago. He states that he has never been tested for tuberculosis and has no family members with tuberculosis to which he has been exposed in the past. He states that he may have lost approximately 15 pounds over the past 2-3 weeks. His appetite is good. The patient has several erythematous punctate lesions on the legs particularly the left anterior tibia and left foot and also the right foot with a crop of punctate lesions at the inner aspect of the right foot. He has debris at the soles of the feet. He reports to me that he walks barefoot. He admits to having had problems with shortness of breath with exertion over the last few weeks. He tells me that he has had a cough for about 7 months. His toxicology screen showed alcohol level of 5. The patient denies alcohol use. He denies drug use. PAST MEDICAL HISTORY Negative, per patient. ALLERGIES NO KNOWN DRUG ALLERGIES. MEDICATIONS 1. Vancomycin. 2. Piperacillin/Tazobactam. 3. Levaquin. 4. Insulin. 5. Protonix. 6. Albuterol. 7. Lovenox. 8. Chinyere-Colace. SOCIAL HISTORY The patient denies tobacco, alcohol or illicit drugs. FAMILY HISTORY Noncontributory. REVIEW OF SYSTEMS Pertinent as mentioned above in history of present illness. Otherwise, the patient denies back pain, chest pain, dysuria, night sweats or chills. PHYSICAL EXAMINATION GENERAL: This is a well-developed male who appears well-nourished. He is in no acute distress. VITAL SIGNS: Include temperature of 94 degrees. Temperature earlier today was 97.5. Blood pressure 147/64. Heart rate 94. HEENT: Head is atraumatic. Extraocular movements grossly intact, pupils reactive to light. No icterus. Oropharynx moist mucosa without lesions. No thrush. NECK: Supple without adenopathy. LUNGS: Rhonchi bilateral. HEART: Normal S1-S2 without audible murmurs, rubs or gallops. ABDOMEN: Bowel sounds present, soft, no tenderness appreciated. No palpable masses. RECTAL: Not performed. EXTREMITIES: No clubbing or cyanosis or edema. The distal extremities are cold. No calf tenderness. SKIN: Punctate erythematous lesions at the lower extremities including the left tibia, left foot and right foot which blanches with palpation. NEURO: No gross focal findings. PSYCHE: The patient is calm. He appears somewhat confused. LABORATORY DATA WBC 28.9, 94% neutrophils, hemoglobin 11.4, creatinine 0.66, BUN 18, sodium 136. Liver function tests normal. Alk phos slightly elevated at 152. IMPRESSION 1. Sepsis. Positive blood cultures with gram-positive cocci. 2. Cavitary pulmonary lesions. Questionable etiology. Rule out tuberculosis. 3. Pneumonia. 4. Skin lesions which potentially could be embolic. 5. Leukocytosis secondary to infection. 6. Rule out neoplastic etiology of lung lesions. RECOMMENDATIONS 1. Follow AFB from sputum and pleural fluid. 2. Hold off on TB treatment for now. 3. Continue vancomycin for gram-positive cocci in the blood. 4. Continue Levaquin. 5. Continue piperacillin/Tazobactam. 6. Monitor white blood cell count. 7. Obtain a 2-D echocardiogram to evaluate the heart valve in light of skin lesions and positive blood cultures. Thank you for this consultation. The patient's progress will be followed and further recommendations will be given on followup if necessary. Carroll Gilbert MD FD/KELLY /11:50 AM /2:20 PM
--- NOTE | 2016-11-14 14:51 | PD.CONS ---
HPI History of Present Illness This is a 56 year old male who presented after his "neighbor made" him come in; he was having increasing SOB, activity intolerance. On admission his sats were 88% and he was found to have leukocytosis, bilat cavitaria lesions, sepsis , hyponatremia. He is c/o of epigastric and umbilical pain that started today around lunch time with some nausea, no vomiting. He is not currently nauseous. Denies diarrhea; says he hasn't had a BM in 2 weeks. He has not been eating much either. He usually is regular. Denies weight loss, blood in stool, tarry stool, ever having had colonoscopy or upper endoscopy. Pt is poor historian. PFSH Past Medical History none per pt Past Surgical History none per pt Coded Allergies: No Known Allergies (Unverified , 11/13/16) Family History none per pt Social History no ETOH no tobacco use quit smoking marijuana 6m ago, denies other illicit drug use Review of Systems Constitutional: COMPLAINS OF: Fatigue, Change in appetite, DENIES: Weight loss Eyes: DENIES: Blurred vision Ears, nose, mouth, throat: DENIES: Hearing loss Respiratory: COMPLAINS OF: Cough, Wheezing, Shortness of breath Cardiovascular: DENIES: Palpitations Gastrointestinal: COMPLAINS OF: Abdominal pain, Constipation, Nausea, DENIES: Black stools, Bloody stools, Diarrhea, Vomiting, Hematemesis Genitourinary: DENIES: Urinary incontinence Musculoskeletal: DENIES: Joint Swelling Integumentary: DENIES: Jaundice Hematologic/lymphatic: DENIES: Bruising Neurologic: DENIES: Headache Psychiatric: COMPLAINS OF: Confusion GI Exam Vitals I&O Vital Signs Date Time Temp Pulse Resp B/P Pulse Ox O2 Delivery O2 Flow Rate FiO2 11/14/16 04:00 97.5 100 29 129/95 92 11/14/16 00:00 97.8 93 22 120/67 97 11/13/16 21:07 98 Nasal Cannula 5.00 11/13/16 20:52 97.7 97 20 132/83 98 11/13/16 17:10 104 22 112/58 95 Nasal Cannula 5 11/13/16 14:54 104 20 115/68 96 Nasal Cannula 4 I/O 11/13/16 11/13/16 11/13/16 11/14/16 11/14/16 11/14/16 06:59 14:59 22:59 06:59 14:59 22:59 Intake Total 1042 ml 1039 ml Output Total 850 ml 600 ml Balance 192 ml 439 ml Intake Oral 480 ml 480 ml IV Total 562 ml 559 ml Output Urine Total 850 ml 600 ml # Bowel Movements 0 0 Imaging Last Impressions Chest X-Ray 11/14/16 0000 Signed Impressions: Service Date/Time: October 03:07 - CONCLUSION: 1. Stable cavitary lesion in the right mid chest, right pleural effusion and elevation right hemidiaphragm. 2. New small infiltrates in the lateral left mid and upper left lung. Keyur Sauceda MD Abdomen/Pelvis CT 11/14/16 0000 Signed Impressions: Service Date/Time: October 09:55 - CONCLUSION: 1. Multiple loops of fluid-filled small bowel which are larger in caliber in comparison to yesterday's examination although not enlarged by size criteria. This may reflect mild enteritis versus developing mild adynamic ileus. 2. Persistent luminal narrowing at the gastroduodenal junction without definite focal mass. This is of uncertain clinical significance and likely reflects gastric contraction. Gastric mass/metastatic disease is not very likely based on appearance although it cannot be excluded. 3. 2 cm ill-defined hypodense lesion in the left renal mid pole with indeterminate density. Differential considerations include complex cyst versus metastatic disease in this patient with apparent diffuse metastatic disease in the chest. 4. Redemonstration of multiple bilateral cavitary masses at the lung bases with loculated right pleural effusion. Elder Long MD CT Angiography 11/13/16 1328 Signed Impressions: Service Date/Time: Sunday, November 13, 2016 15:50 - CONCLUSION: 1. Multiple cavitary lesions within both lungs with the largest measuring 9.5 cm in the right upper lobe. Differential diagnosis includes infectious and neoplastic etiologies. 2. Moderate sized right pleural effusion with adjacent compressive atelectasis and/or infiltrate. 3. Cardiomegaly and coronary artery calcifications. 4. Subcarinal mediastinal lymphadenopathy. 5. Degenerative changes throughout the thoracic spine. Jed Ponce MD Head CT 11/13/16 1324 Signed Impressions: Service Date/Time: Sunday, November 13, 2016 15:46 - CONCLUSION: 1. No acute intracranial abnormality. Elder Long MD Laboratory Test 11/13/16 11/13/16 11/13/16 11/14/16 18:20 20:20 21:00 04:06 Pleural Fluid pH 8.5 Pleural Fluid WBC 2620 /MM3 Pleural Fluid RBC 1767 /MM3 Pleural Fluid Neutrophils 85 % Pleural Fluid Lymphocytes 12 % Pleural Fluid Monocytes 3 % Pleural Fluid Comment Lactic Acid Level 1.4 mmol/L 1.8 mmol/L Nasal Screen MRSA (PCR) MRSA NOT DETECTED White Blood Count 28.9 TH/MM3 Red Blood Count 3.68 MIL/MM3 Hemoglobin 11.4 GM/DL Hematocrit 34.1 % Mean Corpuscular Volume 92.7 FL Mean Corpuscular Hemoglobin 30.9 PG Mean Corpuscular Hemoglobin 33.3 % Concent Red Cell Distribution Width 14.2 % Platelet Count 302 TH/MM3 Mean Platelet Volume 6.9 FL Neutrophils (%) (Auto) 94.6 % Lymphocytes (%) (Auto) 2.5 % Monocytes (%) (Auto) 2.5 % Eosinophils (%) (Auto) 0.1 % Basophils (%) (Auto) 0.3 % Neutrophils # (Auto) 27.3 TH/MM3 Lymphocytes # (Auto) 0.7 TH/MM3 Monocytes # (Auto) 0.7 TH/MM3 Eosinophils # (Auto) 0.0 TH/MM3 Basophils # (Auto) 0.1 TH/MM3 CBC Comment DIFF FINAL Differential Comment Sodium Level 136 MEQ/L Potassium Level 3.6 MEQ/L Chloride Level 98 MEQ/L Carbon Dioxide Level 30.5 MEQ/L Anion Gap 8 MEQ/L Blood Urea Nitrogen 18 MG/DL Creatinine 0.66 MG/DL Estimat Glomerular Filtration 125 ML/MIN Rate Random Glucose 253 MG/DL Calcium Level 7.9 MG/DL Total Bilirubin 0.7 MG/DL Aspartate Amino Transf 36 U/L (AST/SGOT) Alanine Aminotransferase 42 U/L (ALT/SGPT) Alkaline Phosphatase 152 U/L Total Protein 6.5 GM/DL Albumin 1.3 GM/DL Test 11/14/16 12:37 Lactic Acid Level 2.5 mmol/L Amylase Level 78 U/L Lipase 206 U/L Date/Time Procedure Status Source Growth 11/14/16 06:30 Gram Stain - Final Resulted Sputum Endotracheal 11/14/16 06:30 Sputum Culture Resulted Sputum Endotracheal Pending 11/14/16 06:30 Acid Fast Stain Received Sputum Expectorated Sputum Pending 11/14/16 06:30 Mycobacterial Culture Received Sputum Expectorated Sputum Pending 11/13/16 18:20 Fungal Smear Received Fluid Pleural Fluid Pending 11/13/16 18:20 Fungal Culture Received Fluid Pleural Fluid Pending 11/13/16 14:00 Influenza Types A,B Antigen ([facility]) - Final Complete Nasal Washing NEGATIVE FOR FLU A AND B ANTIGEN.... 11/13/16 13:30 Aerobic Blood Culture - Preliminary Resulted Blood Peripheral Staphylococcus Aureus 11/13/16 13:30 Anaerobic Blood Culture - Preliminary Resulted Gram Positive Cocci Physical Examination HEENT: PERRL; normocephalic; atraumatic; no jaundice. CHEST: wheezes CARDIAC: tachy ABDOMEN: Soft, mildly distended, TTP epigastric, umbilical regions; no hepatosplenomegaly; hypoactive BS EXTREMITIES: No clubbing, cyanosis, or edema. SKIN: Normal; no rash; no jaundice. [employer]: No focal deficits; alert and oriented times three. Assessment and Plan Plan ASSESSMENT - abdominal pain - pt says no BM in 2 weeks, has not been eating much. Today began having severe epigastric, umbilical pain but is only mildly tender on exam. hypoactive BS, +flatus. CT 11-14-16 --> 1. Multiple loops of fluid-filled small bowel which are larger in caliber in comparison to yesterday's examination although not enlarged by size criteria. This may reflect mild enteritis versus developing mild adynamic ileus. 2. Persistent luminal narrowing at the gastroduodenal junction without definite focal mass. This is of uncertain clinical significance and likely reflects gastric contraction. Gastric mass/ metastatic disease is not very likely based on appearance although it cannot be excluded. - sepsis, bilat cavitary lung lesions - per [facility] - npo with sips water - consider NGT if distention worsens - KUB in am - supportive care - consider EGD when respiratory status improved - further recommendations to follow This pt seen by myself and Dr Figueroa and this note is written on his behalf Kristy Sweeney Nov 14, 2016 14:51
--- NOTE | 2016-11-14 15:20 | PD.PROCEDR ---
Procedure Note Procedure Procedure Ultrasound-guided right pigtail chest tube placement Indication: Large right pleural effusion, probable empyema A time-out was completed verifying correct patient, procedure, site, positioning. The patient's right side was prepped and draped in a sterile manner after the appropriate infiltration level was confirmed by ultrasound. 1% lidocaine was used anesthetize the surrounding skin. A 10-blade scalpel used to make the incision. 18G needle was then introduced without difficulty and into the pleural space and yellow purulent appearing fluid was removed. Guidewire was placed through the needle and the needle was removed. A 7 Ethiopian dilator was used, followed by placement of 10 Ethiopian pigtail catheter the guidewire using Seldinger technique. Guidewire was removed and pigtail was connected to the Vacutainer, initial episode about 200 ML of purulent appearing pleural fluid. A post-procedure chest x-ray was ordered and the fluid will be sent for several studies. Estimated Blood Loss: <1 ml. The patient tolerated the procedure well and there were no immediate complications. Pleural fluid now has appearance of empyema. Fluid Gram stain growing staph aureus. Cardiothoracic surgery consulted and discussed with Jan Galindo MD Nov 14, 2016 15:20
--- NOTE | 2016-11-14 15:40 | RADRPT ---
EXAM DATE/TIME: 11/14/2016 14:15 [facility] COMPARISON: CHEST SINGLE AP, November 14, 2016, 3:07. INDICATIONS : Cardiac distress. MEDICAL HISTORY : None. SURGICAL HISTORY : None. ENCOUNTER: Subsequent ACUITY: 1 day PAIN SCORE: Non-responsive. LOCATION: Bilateral chest FINDINGS: A small right-sided pigtail catheter is noted at the right lung base. A small right pleural effusion is still noted. There is no pneumothorax. Cavitary lesions are again noted bilaterally and are sta ble. The heart is stable. CONCLUSION: 1. Stable cavitary lesions within both lungs. 2. Small right pleural effusion with pigtail catheter identified in the right lung base. Jed Ponce MD on November 14, 2016 at 15:03 Board Certified Radiologist. This report was verified electronically.
--- NOTE | 2016-11-14 17:00 | ECHRPT ---
Indication: sepsis CONCLUSIONS The left ventricular systolic function is normal with an estimated ejection fraction in the range of 55-60%. Left ventricular diastolic function parameters are normal. Calcification noted on the right coronary cusp, does not appear to have non-cardiac motion. If endocarditis, most likely old as it is calcified. Moderate aortic valve regurgitation. BP: 112 / 58 HR: 104 Rhythm: Sinus MEASUREMENTS (Male / Female) Normal Values Technical Quality:Good 2D ECHO LV Diastolic Diameter PLAX 5.4 cm 4.2 - 5.9 / 3.9 - 5.3 cm LV Systolic Diameter PLAX 4.1 cm IVS Diastolic Thickness 1.0 cm 0.6 - 1.0 / 0.6 - 0.9 cm LVPW Diastolic Thickness 0.9 cm 0.6 - 1.0 / 0.6 - 0.9 cm LV Relative Wall Thickness 0.4 RV Internal Dim ED PLAX 2.6 cm LA Systolic Diameter LX 3.8 cm 3.0 - 4.0 / 2.7 - 3.8 cm M-MODE Aortic Root Diameter MM 3.7 cm AV Cusp Separation MM 1.7 cm DOPPLER AV Peak Velocity 187.0 cm/s AV Peak Gradient 14.0 mmHg LVOT Peak Velocity 148.0 cm/s LVOT Peak Gradient 8.8 mmHg Mitral E Point Velocity 98.7 cm/s Mitral A Point Velocity 54.3 cm/s Mitral E to A Ratio 1.8 LV E' Lateral Velocity 15.7 cm/s Mitral E to LV E' Lateral Ratio 6.3 TR Peak Velocity 297.0 cm/s TR Peak Gradient 35.3 mmHg FINDINGS LEFT VENTRICLE Normal left ventricular size and wall thickness. The left ventricular systolic function is normal with an estimated ejection fraction in the range of 55-60%. Left ventricular diastolic function parameters are normal. RIGHT VENTRICLE Normal right ventricular size and systolic function. LEFT ATRIUM The left atrial size is normal. RIGHT ATRIUM The right atrial size is normal. 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 AORTA The aortic root and proximal ascending aorta are normal in size on limited imaging. MITRAL VALVE Structurally normal mitral valve. No mitral valve stenosis or regurgitation. AORTIC VALVE Calcification noted on the right coronary cusp, does not appear to have non-cardiac motion. If endocarditis, most likely old as it is calcified. Moderate aortic valve regurgitation. TRICUSPID VALVE Structurally normal tricuspid valve. No tricuspid valve stenosis or regurgitation. PULMONARY VALVE The pulmonary valve is not well visualized. VESSELS The inferior vena cava is normal in size. PERICARDIUM A small pleural effusion is noted Dominik Avendano DO (Electronically Signed) Final Date:14 November 2016 16:59
[2016-11-14] MEDS: METOCLOPRAMIDE HCL 10 MG/2 ML VIAL IM SCH ×2 (17:40→23:58)
[2016-11-14] MEDS: LEVOFLOXACIN 750 MG PREMIX INJ 150 ML IV SCH (17:52)
--- NOTE | 2016-11-14 18:01 | MB ---
cc: [facility]FFER DATE OF CONSULTATION 11/14/[address] Jan Velez REASON FOR CONSULTATION Pulmonary management HISTORY OF PRESENT ILLNESS Mr. Mohan is a 56-year-old white male with no significant past medical history. He has not seen a physician for many, many years. 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 He has not worked for many months. He has been incarcerated three times before. He says that he has not been feeling well, feeling fatigued for the last many, many months but lately he has been having shortness of breath, congestion in his chest. He did not have fevers or night sweats. Denies any significant weight loss. His neighbor [facility]. The patient was brought to the hospital. He had a workup done. His CT scan of the chest shows he has multiple cavitary lesions in the lung, largest measured 9.5 pneumothorax and he has moderate right pleural effusion. His CBC showed WBC count 28.9, hemoglobin 11.4, hematocrit 34.1, MCV 92, platelet count 302. INR 1.4. Sodium 136, potassium 3.6, chloride 98, CO2 30, BUN 18, creatinine 0.66. The patient was admitted in the ICU. He had a chest tube placed. Pleural fluid is exudative with WBC 2620. Pleural fluid culture is growing staph aureus. Blood cultures are also growing staph aureus. PAST MEDICAL HISTORY Unremarkable. MEDICATIONS Currently taking 1. Reglan 10 mg q.8 h. 2. Protonix 40 mg a day. 3. Morphine for pain. 4. Vancomycin 1250 mg q. 8-hour. 5. Albuterol/Atrovent treatment. 6. Zosyn q.6 h. 7. Lovenox 40 mg a day. ALLERGIES NO KNOWN DRUG ALLERGIES. SOCIAL HISTORY He is single, lives with a friend. He has a history of smoking which he quit. He drinks 6-12 pack off and on. He uses marijuana. 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 He has one son 20 years old who lives with his mother. REVIEW OF SYSTEMS Denies any weight loss. No fevers or chills. No night sweats. He has been incarcerated three times before. No known exposure to TB. PHYSICAL EXAMINATION GENERAL: Well-built, well-nourished male not in acute distress. VITAL SIGNS: Blood pressure 129/95, heart rate 100, respirations 29, temperature 97.5 HEENT: Pupils are equal and reactive to light. Oral mucosa and nasal mucosa normal. NECK: Supple. JVD not raised. CHEST: He has right chest tube in place with decreased air flow in the right. CARDIOVASCULAR: S1, S2 normal. ABDOMEN: Benign. EXTREMITIES: No edema. IMPRESSION AND PLAN 1. Empyema 2. Septicemia. He has staph aureus infection. 3. Hydropneumothorax 4. Leukocytosis. PLAN I discussed with the patient and discussed with Dr. Velez continue chest tube drainage. He is on vancomycin and Zosyn. Continue aerosol treatment. thoracic surgery is consulted for possible thoracotomy. Further treatment will depend on the course in the hospital. Thank you, Dr. Velez, for this consultation. MD VERONICA Romero/ /5:29 PM /5:39 PM [facility]
[2016-11-14] MEDS ORDERED: PHARMACY ORDERED LAB ONE (20:45)
[2016-11-14] MEDS: ENOXAPARIN SODIUM 40 MG/0.4 ML SYRINGE SQ SCH (21:35)
[2016-11-14] MEDS: POLYETHYLENE GLYCOL 17 GM PKG PO SCH (21:35)
[2016-11-14] MEDS: PANTOPRAZOLE SODIUM 40 MG VIAL IV SCH (21:36)
[2016-11-14 22:25] LABS: PLEURAL FLUID LYMPHS 2 %
[2016-11-15] VITALS (18 sets, daily range): BP systolic 114–137; BP diastolic 55–64; PULSE 95–158; RESP 18–31; TEMP 97.4–98.5; O2SAT 81–95
[2016-11-15] MEDS ORDERED: PHARMACY ORDERED LAB ONE ×2 (01:00→11:45)
[2016-11-15] MEDS ORDERED: VANCOMYCIN INJ 1,250 MG in SODIUM CHLOR 0.9% 250 ML INJ 250 ML IV SCH (02:00)
[2016-11-15] MEDS: CHLORHEXIDINE GLUCONATE 2 % 1 PACK (2 CLOTHS) TOP SCH (04:00)
[2016-11-15] MEDS: VANCOMYCIN INJ 1,250 MG in SODIUM CHLOR 0.9% 250 ML INJ 250 ML IV SCH ×2 (04:10→12:24)
[2016-11-15] MEDS: PIPERACIL-TAZO 4.5 GM PREMIX 100 ML IV SCH ×3 (04:11→14:30)
--- NOTE | 2016-11-15 04:21 | RADRPT ---
EXAM DATE/TIME: 11/15/2016 03:03 [facility] COMPARISON: CHEST SINGLE AP, November 14, 2016, 14:15. INDICATIONS : Status post patient pulling out right sided chest tube. Evaluate for pneumothorax. MEDICAL HISTORY : None. SURGICAL HISTORY : None. ENCOUNTER: Subsequent ACUITY: 1 day PAIN SCORE: Non-responsive. LOCATION: chest FINDINGS: Bilateral parenchymal opacities are present worse in the right lung and not significantly changed. Th e rest of the examination has not significantly changed. No definite pneumothorax is seen for techniq ue. CONCLUSION: No appreciable change. Reba Banerjee MD on November 15, 2016 at 4:19 Board Certified Radiologist. This report was verified electronically.
--- NOTE | 2016-11-15 04:25 | RADRPT ---
EXAM DATE/TIME: 11/15/2016 03:07 [facility] COMPARISON: CT ABDOMEN & PELVIS W CONTRAST, November 14, 2016, 9:55. CHEST SINGLE AP, November 15, 2016, 3:03. INDICATIONS : Evaluate for ileus. MEDICAL HISTORY : None. SURGICAL HISTORY : None. ENCOUNTER: Subsequent ACUITY: 1 day PAIN SCORE: Non-responsive. LOCATION: Abdomen FINDINGS: The right lung base parenchymal processes present discussed on the patient's chest x-ray. No definite free air is identified for technique. There is slight prominence of loops of bowel on the left side of the abdomen probable mild ileus. There is gas in the colon down to the rectum. CONCLUSION: Probable mild ileus involving loops of bowel on the left side. Reba Banerjee MD on November 15, 2016 at 4:22 Board Certified Radiologist. This report was verified electronically.
[2016-11-15] MEDS: RESP: ALBUTEROL 2.5 MG/IPRATROPIUM 0.5 MG NEB (SCH) INH ×4 (04:58→22:32)
[2016-11-15] MEDS: INSULIN ASPART SUPPLEMENTAL SCALE SQ SCH ×4 (07:00→21:00)
[2016-11-15] MEDS: METOCLOPRAMIDE HCL 10 MG/2 ML VIAL IM SCH ×3 (07:00→21:58)
[2016-11-15] MEDS: SODIUM CHLOR 0.9% 1000 ML INJ 1,000 ML IV SCH ×2 (07:01→22:00)
[2016-11-15 07:12] LABS: AUTOMATED NEUTROPHIL # 23.6 TH/MM3 (1.8-7.7); BASOPHIL # 0.1 TH/MM3 (0-0.2); BASOPHIL % 0.2 % (0.0-2.0); EOSINOPHIL % 0.1 % (0.0-4.0); HEMATOCRIT 36.9 % (39.0-51.0); LYMPH % 2.6 % (9.0-44.0); LYMPHOCYTE # 0.7 TH/MM3 (1.0-4.8); MEAN CELL VOLUME 93.5 FL (80.0-100.0); MEAN CORPUSCULAR HEMOGLOBIN 29.8 PG (27.0-34.0); MEAN CORPUSCULAR HGB CONC 31.8 % (32.0-36.0); MONO % 5.8 % (0.0-8.0); NEUT % 91.3 % (16.0-70.0); PLATELET COUNT 310 TH/MM3 (150-450); RED BLOOD COUNT 3.95 MIL/MM3 (4.50-5.90); RED CELL DISTRIBUTION WIDTH 14.3 % (11.6-17.2); WHITE BLOOD COUNT 25.8 TH/MM3 (4.0-11.0)
[2016-11-15 07:14] LABS: HEMO FLAGS AUTO DIFF
[2016-11-15 07:43] LABS: ALKALINE PHOSPHATASE 120 U/L (45-117); ALT (GPT) 32 U/L (12-78); ANION GAP 6 MEQ/L (5-15); AST (GOT) 33 U/L (15-37); BICARBONATE 32.3 MEQ/L (21.0-32.0); BLOOD UREA NITROGEN 17 MG/DL (7-18); CHLORIDE 96 MEQ/L (98-107); GLOMERULAR FILTRATION RATE 132 ML/MIN (>89); MAGNESIUM 2.5 MG/DL (1.5-2.5); POTASSIUM 3.9 MEQ/L (3.5-5.1); SODIUM (NA) 134 MEQ/L (136-145); TOTAL BILIRUBIN ADULT 0.8 MG/DL (0.2-1.0)
[2016-11-15 08:51] LABS: BANDS 15 % (0-6); NEUTROPHIL # MANUAL DIFF 24.3 TH/MM3 (1.8-7.7); PLATELET ESTIMATE SMEAR NORMAL (NORMAL); PLATELET MORPHOLOGY NORMAL (NORMAL); POLYS (SEG NEUTROPHILS) 79 % (16-70); SCAN/DIFF FINAL DIFF MANUAL; WBC DIFF SAMPLE 100
--- NOTE | 2016-11-15 10:18 | HHI.GIFU ---
Subjective Remarks Resting in bed. States he has not had a bowel movement in 8 days. No n/v, pain. Clinically, his abdomen is rather benign. Had CHANDNI this am, large vegetation. CT out overnight. Objective Vitals I&O Vital Signs Date Time Temp Pulse Resp B/P Pulse Ox O2 Delivery O2 Flow Rate FiO2 11/15/16 09:04 94 Nasal Cannula 5.00 11/15/16 06:00 100 11/15/16 06:00 100 11/15/16 04:00 98.5 96 28 133/64 93 11/15/16 04:00 96 11/15/16 02:00 95 11/15/16 00:00 97.5 96 28 136/64 81 11/15/16 00:00 96 11/14/16 22:43 99 Nasal Cannula 4.00 11/14/16 22:00 94 11/14/16 20:00 93 11/14/16 20:00 97.4 93 14 139/67 94 11/14/16 18:00 92 11/14/16 16:36 92 21 11/14/16 16:00 96.6 90 24 141/67 92 11/14/16 16:00 90 11/14/16 14:00 88 11/14/16 12:37 20 11/14/16 12:00 96.3 91 21 158/72 89 11/14/16 12:00 91 I/O 11/14/16 11/14/16 11/14/16 11/15/16 11/15/16 11/15/16 07:00 15:00 23:00 07:00 15:00 23:00 Intake Total 1039 ml 1365 ml 2322 ml 2008 ml Output Total 600 ml 540 ml 725 ml 350 ml Balance 439 ml 825 ml 1597 ml 1658 ml Intake Oral 480 ml 480 ml 1000 ml 1000 ml IV Total 559 ml 885 ml 1322 ml 1008 ml Output Urine Total 600 ml 200 ml 600 ml 350 ml Chest Tube Drainage Total 340 ml 125 ml # Voids 4 2 # Bowel Movements 0 Laboratory Laboratory Tests Test 11/14/16 11/14/16 11/15/16 11/15/16 12:37 14:15 06:17 06:48 Lactic Acid Level 2.5 Amylase Level 78 Lipase 206 Pleural Fluid WBC 23463 Pleural Fluid RBC 56110 Pleural Fluid Neutrophils 97 Pleural Fluid Lymphocytes 2 Pleural Fluid Monocytes 1 Sodium Level 134 Potassium Level 3.9 Chloride Level 96 Carbon Dioxide Level 32.3 Anion Gap 6 Blood Urea Nitrogen 17 Creatinine 0.63 Estimat Glomerular Filtration 132 Rate Random Glucose 127 Calcium Level 8.0 Magnesium Level 2.5 Total Bilirubin 0.8 Aspartate Amino Transf 33 (AST/SGOT) Alanine Aminotransferase 32 (ALT/SGPT) Alkaline Phosphatase 120 Total Protein 6.7 Albumin 1.4 White Blood Count 25.8 Red Blood Count 3.95 Hemoglobin 11.8 Hematocrit 36.9 Mean Corpuscular Volume 93.5 Mean Corpuscular Hemoglobin 29.8 Mean Corpuscular Hemoglobin 31.8 Concent Red Cell Distribution Width 14.3 Platelet Count 310 Mean Platelet Volume 6.9 Neutrophils (%) (Auto) 91.3 Lymphocytes (%) (Auto) 2.6 Monocytes (%) (Auto) 5.8 Eosinophils (%) (Auto) 0.1 Basophils (%) (Auto) 0.2 Neutrophils # (Auto) 23.6 Lymphocytes # (Auto) 0.7 Monocytes # (Auto) 1.5 Eosinophils # (Auto) 0.0 Basophils # (Auto) 0.1 CBC Comment AUTO DIFF Differential Total Cells 100 Counted Neutrophils % (Manual) 79 Band Neutrophils % 15 Lymphocytes % 2 Monocytes % 4 Neutrophils # (Manual) 24.3 Differential Comment FINAL DIFF MANUAL Platelet Estimate NORMAL Platelet Morphology Comment NORMAL Date/Time Procedure Status Source Growth 11/14/16 14:15 Gram Stain - Final Resulted Fluid Pleural Fluid 11/14/16 14:15 Body Fluid Culture Resulted Fluid Pleural Fluid Pending 11/14/16 14:15 Fungal Smear - Final Resulted Fluid Pleural Fluid NO FUNGAL ELEMENTS SEEN. 11/14/16 14:15 Fungal Culture Resulted Fluid Pleural Fluid Pending 11/14/16 14:15 Acid Fast Stain Received Fluid Pleural Fluid Pending 11/14/16 14:15 Mycobacterial Culture Received Fluid Pleural Fluid Pending 11/13/16 14:00 Influenza Types A,B Antigen ([facility]) - Final Complete Nasal Washing NEGATIVE FOR FLU A AND B ANTIGEN.... 11/13/16 13:30 Aerobic Blood Culture - Preliminary Resulted Blood Peripheral Staphylococcus Aureus 11/13/16 13:30 Anaerobic Blood Culture - Preliminary Resulted Gram Positive Cocci Imaging Last Impressions Chest X-Ray 11/15/16 0600 Signed Impressions: Service Date/Time: Tuesday, November 15, 2016 03:03 - CONCLUSION: No appreciable change. Reba Banerjee MD Abdomen X-Ray 11/15/16 0600 Signed Impressions: Service Date/Time: Tuesday, November 15, 2016 03:07 - CONCLUSION: Probable mild ileus involving loops of bowel on the left side. Reba Banerjee MD Abdomen/Pelvis CT 11/14/16 0000 Signed Impressions: Service Date/Time: October 09:55 - CONCLUSION: 1. Multiple loops of fluid-filled small bowel which are larger in caliber in comparison to yesterday's examination although not enlarged by size criteria. This may reflect mild enteritis versus developing mild adynamic ileus. 2. Persistent luminal narrowing at the gastroduodenal junction without definite focal mass. This is of uncertain clinical significance and likely reflects gastric contraction. Gastric mass/metastatic disease is not very likely based on appearance although it cannot be excluded. 3. 2 cm ill-defined hypodense lesion in the left renal mid pole with indeterminate density. Differential considerations include complex cyst versus metastatic disease in this patient with apparent diffuse metastatic disease in the chest. 4. Redemonstration of multiple bilateral cavitary masses at the lung bases with loculated right pleural effusion. Elder Long MD CT Angiography 11/13/16 1328 Signed Impressions: Service Date/Time: Sunday, November 13, 2016 15:50 - CONCLUSION: 1. Multiple cavitary lesions within both lungs with the largest measuring 9.5 cm in the right upper lobe. Differential diagnosis includes infectious and neoplastic etiologies. 2. Moderate sized right pleural effusion with adjacent compressive atelectasis and/or infiltrate. 3. Cardiomegaly and coronary artery calcifications. 4. Subcarinal mediastinal lymphadenopathy. 5. Degenerative changes throughout the thoracic spine. Jed Ponce MD Head CT 11/13/16 1324 Signed Impressions: Service Date/Time: Sunday, November 13, 2016 15:46 - CONCLUSION: 1. No acute intracranial abnormality. Elder Long MD Physical Exam HEENT: Normocephalic; atraumatic; no jaundice. CHEST: Resp even/unlabored, course. Diminished bases. Drsg right chest. CARDIAC: RRR ABDOMEN: Soft, nondistended, nontender; no hepatosplenomegaly; bowel sounds are present in all four quadrants. EXTREMITIES: No clubbing, cyanosis, or edema. SKIN: Multiple spotted lesions to ble/feet. [employer]: No focal deficits; alert and oriented times three. Assessment and Plan Plan ASSESSMENT - Abdominal pain. Abdomen/Pelvis CT (11/14/16)-----> 1. Multiple loops of fluid- filled small bowel which are larger in caliber in comparison to yesterday's examination although not enlarged by size criteria. This may reflect mild enteritis versus developing mild adynamic ileus. 2. Persistent luminal narrowing at the gastroduodenal junction without definite focal mass. This is of uncertain clinical significance and likely reflects gastric contraction. Gastric mass/metastatic disease is not very likely based on appearance although it cannot be excluded. 3. 2 cm ill-defined hypodense lesion in the left renal mid pole with indeterminate density. Differential considerations include complex cyst versus metastatic disease in this patient with apparent diffuse metastatic disease in the chest. 4. Redemonstration of multiple bilateral cavitary masses at the lung bases with loculated right pleural effusion. IMPROVED. No pain at this time. PPI. - Mild ileus/constipation. Abdomen X-Ray (11/15/16)----> Probable mild ileus involving loops of bowel on the left side. Reglan, Pericolace, Miralax. No bm yet, but abdomen is soft, nondistended, bowel sounds. Nontender. No abdominal pain. - Abnormal imaging with persistent luminal narrowing at the gastroduodenal junction without definite focal mass. PPI. Will need EGD at some point, timing to be determined. - Anemia. Likely multifactorial. No active bleeding. 11.8/36.9. - Bilateral cavitary lung lesions and right sided pleural effusion. CT Angiography (11/13/16)----> 1. Multiple cavitary lesions within both lungs with the largest measuring 9.5 cm in the right upper lobe. Differential diagnosis includes infectious and neoplastic etiologies. 2. Moderate sized right pleural effusion with adjacent compressive atelectasis and/or infiltrate. 3. Cardiomegaly and coronary artery calcifications. 4. Subcarinal mediastinal lymphadenopathy. 5. Degenerative changes throughout the thoracic spine. S /P CT, but out overnight. Pleural fluid with staphylococcus aureus. N/C. Vanco, Levaquin, Zosyn. Pulm/ID/CCM following. - Sepsis with endocarditis. Abnormal 2D echo with moderate aortic regurgitation and CHANDNI with large vegetation. WBC 25.8. per CCM/ID, Landy Templeton Zosyn PLAN: - Okay for clears from GI standpoint if okay with attending - Cont. PPI - Cont. Miralax - Cont. Reglan - Cont. Pericolace - Abx per ID/CCM - Monitor stool output - Supportive care - Consider EGD +/- Colonoscopy, timing to be determined- current septic with endocarditis/vegetation/bilateral cavitary lesions/pleural effusion. - Further recommendations to follow based on results of above - Pt seen and examined by Dr. Figueroa and myself and this note is written on his behalf Charlene Mueller Nov 15, 2016 10:18
[2016-11-15] MEDS: PANTOPRAZOLE SODIUM 40 MG VIAL IV SCH ×2 (10:36→21:59)
[2016-11-15] MEDS: DOCUSATE SODIUM 50 MG/SENNA 8.6 MG TAB PO SCH ×2 (10:37→21:58)
[2016-11-15] MEDS: POLYETHYLENE GLYCOL 17 GM PKG PO SCH ×2 (10:37→21:58)
[2016-11-15] MEDS: SODIUM CHLORIDE 0.9% FLUSH 10 ML FLUSH IV FLUSH SCH ×2 (10:37→21:59)
--- NOTE | 2016-11-15 12:55 | PD.CONS ---
History of Present Illness Service CT Surgery Consult Requested By Dr. Velez Reason for Consult Staph sepsis, right empyema Primary Care Physician No Primary Care Physician Diagnoses: (1) Severe sepsis (2) Cavitary pneumonia (3) Pleural effusion History of Present Illness 56y/o male presents with fever, malaise and dyspnea. His symptoms started ~2 weeks prior to admission. He was brought to the ED by EMS and found to be hypoxic. His evaluation is notable for bilateral cavitary lesions with a large~ 9 cm one on the right. He also had a right pleural effusion which was tapped. This fluid grew staph which is methicillin susceptible. A chest tube was placed by Dr. Velez with excellent drainage. He also recently underwent CHANDNI which shows a vegetation on the aortic valve. Review of Systems Constitutional: COMPLAINS OF: Diaphoretic episodes, Fatigue, Fever, Chills, Night Sweats Endocrine: DENIES: Heat/cold intolerance, Polydipsia, Polyuria, Polyphagia Eyes: DENIES: Blurred vision, Diplopia, Eye inflammation, Eye pain, Vision loss , Photosensitivity, Double Vision Ears, nose, mouth, throat: DENIES: Tinnitus, Hearing loss, Vertigo, Nasal discharge, Oral lesions, Throat pain, Hoarseness, Ear Pain, Running Nose, Epistaxis, Sinus Pain, Toothache, Odynophagia Respiratory: COMPLAINS OF: Cough, Sputum production, Shortness of breath, DENIES: Apneas, Snoring, Wheezing, Hemoptysis Cardiovascular: COMPLAINS OF: Chest pain, Dyspnea on Exertion, DENIES: Palpitations, Syncope, PND, Lower Extremity Edema, Orthopnea, Claudication Gastrointestinal: DENIES: Abdominal pain, Black stools, Bloody stools, Constipation, Diarrhea, Nausea, Vomiting, Difficulty Swallowing, Anorexia Genitourinary: DENIES: Sexual dysfunction, Urinary frequency, Urinary incontinence, Urgency, Hematuria, Dysuria, Nocturia, Penile Discharge, Testicular Pain, Testicular Swelling Musculoskeletal: COMPLAINS OF: Joint pain, Muscle aches, DENIES: Stiffness, Joint Swelling, Back pain, Neck pain Integumentary: DENIES: Abnormal pigmentation, Nail changes, Pruritus, Rash Hematologic/lymphatic: DENIES: Bruising, Lymphadenopathy Immunologic/allergic: DENIES: Eczema, Urticaria Neurologic: DENIES: Abnormal gait, Headache, Localized weakness, Paresthesias, Seizures, Speech Problems, Tremor, Poor Balance Psychiatric: COMPLAINS OF: Confusion, DENIES: Anxiety, Mood changes, Depression, Hallucinations, Agitation, Suicidal Ideation, Homicidal Ideation, Delusions Past Family Social History Allergies: Coded Allergies: No Known Allergies (Unverified , 11/13/16) Past Medical History none reported Past Surgical History none reported Reported Medications no outpatient medications Active Ordered Medications Current Medications Medications (Trade) Dose Ordered Sig/Gaye Route Start Time Stop Time Status Last Admin Piperacillin Sod/ Tazobactam Sod 100 ml @ 200 mls/hr Q6H IV 11/13/16 21:00 11/15/16 10:36 Levofloxacin/ Dextrose 150 ml @ 100 mls/hr Q24H IV 11/13/16 18:00 11/14/16 17:52 (NS 1000 ml Inj) 1,000 ml @ 84 mls/hr [id number] IV 11/13/16 17:15 11/15/16 07:01 (NS Flush) 2 ml UNSCH PRN IV FLUSH 11/13/16 17:15 (NS Flush) 2 ml BID IV FLUSH 11/13/16 21:00 11/15/16 10:37 (Lovenox Inj) 40 mg Q24H SQ 11/13/16 20:00 11/14/16 21:35 Miscellaneous Information 1 [id number] XX 11/13/16 17:15 (Chlorhexidine 2% Cloth) 3 pack Taper DAILY@04 TOP 11/14/16 04:00 11/10/17 03:59 11/15/16 04:00 (Chlorhexidine 2% Cloth) 3 pack UNSCH PRN TOP 11/13/16 17:15 Senna/Docusate Sodium 1 tab 1 tab BID PO 11/13/16 21:00 11/15/16 10:37 (Vancomycin Consult Pharmacy) 0 ml @ 0 mls/hr UNSCH OTHER 11/13/16 17:30 (Zofran Inj) 4 mg Q6H PRN IV PUSH 11/14/16 06:30 11/14/16 06:52 (Morphine Inj) 2 mg Q3H PRN IV PUSH 11/14/16 09:00 11/14/16 12:32 (Reglan Inj) 10 mg Q8HR IM 11/14/16 14:00 11/15/16 07:00 (Protonix Inj) 40 mg BID IV 11/14/16 21:00 11/15/16 10:36 Polyethylene Glycol 17 gm 17 gm BID PO 11/14/16 21:00 11/15/16 10:37 (Vancomycin Inj/ NS 250 ml Inj) 262.5 ml @ 250 mls/hr Q8H IV 11/15/16 04:00 11/15/16 12:24 Social History remote smoking history Physical Exam Vital Signs Vital Signs Date Time Temp Pulse Resp B/P Pulse Ox O2 Delivery O2 Flow Rate FiO2 11/15/16 12:00 101 11/15/16 12:00 97.4 101 18 124/60 95 11/15/16 10:00 101 11/15/16 09:04 94 Nasal Cannula 5.00 11/15/16 08:00 101 11/15/16 08:00 98.0 101 20 125/59 93 11/15/16 06:00 100 11/15/16 06:00 100 11/15/16 04:00 98.5 96 28 133/64 93 11/15/16 04:00 96 11/15/16 02:00 95 11/15/16 00:00 97.5 96 28 136/64 81 11/15/16 00:00 96 11/14/16 22:43 99 Nasal Cannula 4.00 11/14/16 22:00 94 11/14/16 20:00 93 11/14/16 20:00 97.4 93 14 139/67 94 11/14/16 18:00 92 11/14/16 16:36 92 21 11/14/16 16:00 96.6 90 24 141/67 92 11/14/16 16:00 90 11/14/16 14:00 88 Physical Exam GENERAL: This is a well-nourished, well-developed patient, in no apparent distress. SKIN: No rashes, ecchymoses or lesions. Cool and dry. HEAD: Atraumatic. Normocephalic. No temporal or scalp tenderness. EYES: Pupils equal round and reactive. Extraocular motions intact. No scleral icterus. No injection or drainage. ENT: Nose without bleeding, purulent drainage or septal hematoma. Throat without erythema, tonsillar hypertrophy or exudate. Uvula midline. Airway patent. NECK: Trachea midline. No JVD or lymphadenopathy. Supple, nontender, no meningeal signs. CARDIOVASCULAR: Regular rate and rhythm with soft diastolic murmur. RESPIRATORY: Bilateral crackles R>L. GASTROINTESTINAL: Abdomen soft, non-tender, nondistended. No hepato-splenomegaly , or palpable masses. MUSCULOSKELETAL: Extremities without clubbing, cyanosis, or edema. No joint tenderness, effusion, or edema noted. No calf tenderness. Negative Homans sign bilaterally. NEUROLOGICAL: Awake and alert. Cranial nerves II through XII intact. Motor and sensory grossly within normal limits. Five out of 5 muscle strength in all muscle groups. Normal speech. Laboratory Laboratory Tests Test 11/14/16 11/15/16 11/15/16 14:15 06:17 06:48 Pleural Fluid WBC 03812 Pleural Fluid RBC 39445 Pleural Fluid Neutrophils 97 Pleural Fluid Lymphocytes 2 Pleural Fluid Monocytes 1 Sodium Level 134 Potassium Level 3.9 Chloride Level 96 Carbon Dioxide Level 32.3 Anion Gap 6 Blood Urea Nitrogen 17 Creatinine 0.63 Estimat Glomerular Filtration 132 Rate Random Glucose 127 Calcium Level 8.0 Magnesium Level 2.5 Total Bilirubin 0.8 Aspartate Amino Transf 33 (AST/SGOT) Alanine Aminotransferase 32 (ALT/SGPT) Alkaline Phosphatase 120 Total Protein 6.7 Albumin 1.4 White Blood Count 25.8 Red Blood Count 3.95 Hemoglobin 11.8 Hematocrit 36.9 Mean Corpuscular Volume 93.5 Mean Corpuscular Hemoglobin 29.8 Mean Corpuscular Hemoglobin 31.8 Concent Red Cell Distribution Width 14.3 Platelet Count 310 Mean Platelet Volume 6.9 Neutrophils (%) (Auto) 91.3 Lymphocytes (%) (Auto) 2.6 Monocytes (%) (Auto) 5.8 Eosinophils (%) (Auto) 0.1 Basophils (%) (Auto) 0.2 Neutrophils # (Auto) 23.6 Lymphocytes # (Auto) 0.7 Monocytes # (Auto) 1.5 Eosinophils # (Auto) 0.0 Basophils # (Auto) 0.1 CBC Comment AUTO DIFF Differential Total Cells 100 Counted Neutrophils % (Manual) 79 Band Neutrophils % 15 Lymphocytes % 2 Monocytes % 4 Neutrophils # (Manual) 24.3 Differential Comment FINAL DIFF MANUAL Platelet Estimate NORMAL Platelet Morphology Comment NORMAL Date/Time Procedure Status Source Growth 11/14/16 14:15 Gram Stain - Final Resulted Fluid Pleural Fluid 11/14/16 14:15 Body Fluid Culture Resulted Fluid Pleural Fluid Pending 11/14/16 14:15 Fungal Smear - Final Resulted Fluid Pleural Fluid NO FUNGAL ELEMENTS SEEN. 6/29/17 14:15 Fungal Culture Resulted Fluid Pleural Fluid Pending 11/14/16 14:15 Acid Fast Stain Received Fluid Pleural Fluid Pending 11/14/16 14:15 Mycobacterial Culture Received Fluid Pleural Fluid Pending 11/13/16 14:00 Influenza Types A,B Antigen (KAMI) - Final Complete Nasal Washing NEGATIVE FOR FLU A AND B ANTIGEN.... 11/13/16 13:30 Aerobic Blood Culture - Preliminary Resulted Blood Peripheral Staphylococcus Aureus 11/13/16 13:30 Anaerobic Blood Culture - Preliminary Resulted Staphylococcus Aureus Result Diagram: 11/15/16 0648 11/15/16 0617 Imaging Last Impressions Chest X-Ray 11/15/16 0600 Signed Impressions: Service Date/Time: Tuesday, November 15, 2016 03:03 - CONCLUSION: No appreciable change. Reba Banerjee MD Abdomen X-Ray 11/15/16 0600 Signed Impressions: Service Date/Time: Tuesday, November 15, 2016 03:07 - CONCLUSION: Probable mild ileus involving loops of bowel on the left side. Reba Banerjee MD Abdomen/Pelvis CT 11/14/16 0000 Signed Impressions: Service Date/Time: October 09:55 - CONCLUSION: 1. Multiple loops of fluid-filled small bowel which are larger in caliber in comparison to yesterday's examination although not enlarged by size criteria. This may reflect mild enteritis versus developing mild adynamic ileus. 2. Persistent luminal narrowing at the gastroduodenal junction without definite focal mass. This is of uncertain clinical significance and likely reflects gastric contraction. Gastric mass/metastatic disease is not very likely based on appearance although it cannot be excluded. 3. 2 cm ill-defined hypodense lesion in the left renal mid pole with indeterminate density. Differential considerations include complex cyst versus metastatic disease in this patient with apparent diffuse metastatic disease in the chest. 4. Redemonstration of multiple bilateral cavitary masses at the lung bases with loculated right pleural effusion. Elder Long MD CT Angiography 11/13/16 1328 Signed Impressions: Service Date/Time: Sunday, November 13, 2016 15:50 - CONCLUSION: 1. Multiple cavitary lesions within both lungs with the largest measuring 9.5 cm in the right upper lobe. Differential diagnosis includes infectious and neoplastic etiologies. 2. Moderate sized right pleural effusion with adjacent compressive atelectasis and/or infiltrate. 3. Cardiomegaly and coronary artery calcifications. 4. Subcarinal mediastinal lymphadenopathy. 5. Degenerative changes throughout the thoracic spine. Jed Ponce MD Head CT 11/13/16 1324 Signed Impressions: Service Date/Time: Sunday, November 13, 2016 15:46 - CONCLUSION: 1. No acute intracranial abnormality. Elder Long MD Course Patient is admitted to the ICU. He has had multiple positive blood cultures and pleural fluid cultures for presumably MSSA. He is being treated with IV antibiotics. He pulled out the chest drain Dr. Velez placed for unknown reasons. He is not compliant. He denies IV drug use, but admits to cocaine and marijuana use in the past. Assessment and Plan Problem List: (1) Severe sepsis Status: Acute (2) Endocarditis Status: Acute (3) Empyema Status: Acute Assessment and Plan 56y/o male presents MSSA sepsis, apparent septic emboli to both lungs, and aortic valve endocarditis. The source of this infection is unclear as the patient denies IV drug use. Currently, his right chest has been drained well by Dr. Velez. It is unfortunate that the patient pulled out the chest drain. I currently have no plan to operate on him. His prognosis is guarded to poor. Recommend continuing supportive care. Discussed Condition With patient Problem Qualifiers (1) Endocarditis: Qualified Code: I33.0 - Acute bacterial endocarditis Breann Samuels MD Nov 15, 2016 12:55
--- NOTE | 2016-11-15 13:04 | ECHRPT ---
Indication: R/O AOV ENDOCARDITIS CONCLUSIONS There is a large vegetation that measures 17 x 17 mm that is very mobile going into and out of the o utflow tract. There is a moderate amount of aortic insufficiency that is with this vegetation. Normal left ventricular size. The left ventricular systolic function is normal. BP: 102 / 72 HR: 140 Rhythm: Sinus Technical Quality:Good Medications Complications Proc. Components FINDINGS LEFT VENTRICLE Normal left ventricular size. Wall thickness is normal. The left ventricular systolic function is grossly normal on limited imaging. The left ventricular systolic function is normal with an estimated ejection fraction in the range of 60-65%. RIGHT VENTRICLE The right ventricular systoilc function is normal. LEFT ATRIUM The left atrial size is normal. RIGHT ATRIUM The right atrial size is normal. ATRIAL APPENDAGES Normal left atrial appendage size with no evidence of thrombus formation. ATRIAL SEPTUM Normal atrial septal thickness without atrial level shunting by limited color doppler interrogation. AORTA mild plaquining MITRAL VALVE structurally normal mitral valve. [id number] mitral valve regurgitation. AORTIC VALVE There is a large vegetation that measures 17 x 17 mm that is very mobile going into and out of the o utflow tract. There is a moderate amount of aortic insufficiency that is with this vegetation. TRICUSPID VALVE trivial TR VESSELS No pulmonary valve regurgitation or stenosis. PERICADIUM No pericardial effusion. Godfrey Foley MD (Electronically Signed) Final Date:15 November 2016 13:03
[2016-11-15 14:21] LABS: BODY FLUID LDH 646 U/L (()); BODY FLUID LDH SOURCE PLEURAL (())
--- NOTE | 2016-11-15 15:19 | HHI.CCPN ---
Subjective Remarks/Hospital Course 56-year-old male is brought to the emergency department by EMS for evaluation of generalized weakness, confusion for about 2 weeks, and also increasing shortness of breath. His oxygen saturation was 88% on room air. EMS administered breathing treatments and Solu-Medrol 125 mg 1 and placed him on nasal cannula. Patient states that he had been sick for almost 10 days, but he is a poor historian. He had a productive cough, but reports no hematemesis or weight loss. He states that it was his neighbor who made him called EMS. He has no past medical history and last time had seen a doctor was about 15 years ago. He denies any fevers but reports some night sweats and chills. He was tachycardic with a heart rate of 115 bpm, had severe leukocytosis with a white count of 35,000 with 91% neutrophils. CMP shows hyponatremia with a sodium of 126. Lactic acid is 2.4. His Chest x-ray shows large 7.7 x 7.8 cm cavitary right midlung lesion with associated right-sided pleural effusion. Subcentimeter left mid lung pulmonary nodules. Patient received 1 L normal saline bolus and Zosyn 4.5 g and Zithromax 500 mg IV and was placed on TB/ respiratory isolation. He has been being in detention 2 years ago increasing his risk of tuberculosis. CT pulmonary angiogram negative for PE but showed multiple cavitary lesions within both lungs with the largest measuring 9.5 cm in the right upper lobe. Moderate size right pleural effusion. I evaluated the patient in the emergency department. Patient appears critically ill in moderate distress mildly tachypneic, sweating. I performed a bedside ultrasound which showed a right effusion which is large. The thoracentesis was performed and 1 L of cloudy dark pleural fluid was removed. Patient will be continued on Zosyn and Levaquin and vancomycin. ID consulted and I discussed with Dr. Steele-she recommended no empiric treatments for TB. 11/14/16: Patient seen and examined complaints of severe epigastric and periumbilical abdominal pain. Patient remains oriented to person. His white count is slightly improved from 35,000-28,9000. Na improved to 136. I have ordered a STAT CT abd/pelvis with IV contrast. Chest x-ray shows reaccumulation of right pleural effusion-fluid chemistries are pending but cell count indicates at least a parapneumonic effusion and patient will need a pigtail chest tube Subjective 11/15: Patient pulled his right-sided pigtail catheter out overnight last night. Currently nasal cannula in no acute distress. Afebrile. Continues to have a leukocytosis. Objective Vital Signs Date Time Temp Pulse Resp B/P Pulse Ox O2 Delivery O2 Flow Rate FiO2 11/15/16 14:00 105 11/15/16 12:00 97.4 18 124/60 95 11/15/16 09:04 Nasal Cannula 5.00 11/14/16 16:36 21 Intake and Output 11/14/16 11/14/16 11/15/16 08:00 16:00 00:00 Intake Total 1039 ml 1365 ml 2322 ml Output Total 600 ml 540 ml 725 ml Balance 439 ml 825 ml 1597 ml Result Diagram: 11/15/16 0648 11/15/16 0617 Other Results Microbiology Date/Time Procedure Status Source Growth 11/14/16 14:15 Gram Stain - Final Resulted Fluid Pleural Fluid 11/14/16 14:15 Body Fluid Culture - Preliminary Resulted Staphylococcus Aureus 11/14/16 14:15 Fungal Smear - Final Resulted Fluid Pleural Fluid NO FUNGAL ELEMENTS SEEN. 11/14/16 14:15 Fungal Culture Resulted Fluid Pleural Fluid Pending 11/14/16 14:15 Acid Fast Stain - Final Resulted Fluid Pleural Fluid NO ACID FAST BACILLI SEEN 11/14/16 14:15 Mycobacterial Culture Resulted Fluid Pleural Fluid Pending 11/13/16 14:00 Influenza Types A,B Antigen (KAMI) - Final Complete Nasal Washing NEGATIVE FOR FLU A AND B ANTIGEN.... 11/13/16 13:30 Aerobic Blood Culture - Preliminary Resulted Blood Peripheral Staphylococcus Aureus 11/13/16 13:30 Anaerobic Blood Culture - Preliminary Resulted Staphylococcus Aureus Imaging Last Impressions Chest X-Ray 11/15/16 0600 Signed Impressions: Service Date/Time: Tuesday, November 15, 2016 03:03 - CONCLUSION: No appreciable change. Reba Banerjee MD Abdomen X-Ray 11/15/16 0600 Signed Impressions: Service Date/Time: Tuesday, November 15, 2016 03:07 - CONCLUSION: Probable mild ileus involving loops of bowel on the left side. Reba Banerjee MD Abdomen/Pelvis CT 11/14/16 0000 Signed Impressions: Service Date/Time: October 09:55 - CONCLUSION: 1. Multiple loops of fluid-filled small bowel which are larger in caliber in comparison to yesterday's examination although not enlarged by size criteria. This may reflect mild enteritis versus developing mild adynamic ileus. 2. Persistent luminal narrowing at the gastroduodenal junction without definite focal mass. This is of uncertain clinical significance and likely reflects gastric contraction. Gastric mass/metastatic disease is not very likely based on appearance although it cannot be excluded. 3. 2 cm ill-defined hypodense lesion in the left renal mid pole with indeterminate density. Differential considerations include complex cyst versus metastatic disease in this patient with apparent diffuse metastatic disease in the chest. 4. Redemonstration of multiple bilateral cavitary masses at the lung bases with loculated right pleural effusion. Elder Long MD CT Angiography 11/13/16 1328 Signed Impressions: Service Date/Time: Sunday, November 13, 2016 15:50 - CONCLUSION: 1. Multiple cavitary lesions within both lungs with the largest measuring 9.5 cm in the right upper lobe. Differential diagnosis includes infectious and neoplastic etiologies. 2. Moderate sized right pleural effusion with adjacent compressive atelectasis and/or infiltrate. 3. Cardiomegaly and coronary artery calcifications. 4. Subcarinal mediastinal lymphadenopathy. 5. Degenerative changes throughout the thoracic spine. Jed Ponce MD Head CT 11/13/16 1323 Signed Impressions: Service Date/Time: Sunday, November 13, 2016 15:46 - CONCLUSION: 1. No acute intracranial abnormality. Elder Long MD Objective Remarks GENERAL: 86-year-old male, resting in bed in no acute distress SKIN: Warm and dry. Scattered skin lesions erythematous predominantly left lower extremity, (probable bug bites per patient) HEAD: Normocephalic and atraumatic. EYES: No injection, drainage. MAURO. ENT: No nasal drainage noted. Oropharynx is clear. NECK: Supple and the trachea is midline. CARDIOVASCULAR: Tachycardic, RR. S1, S2. No S4. Murmurs not appreciated RESPIRATORY: Diminished breath sounds right lower lobe. Bilateral mild expiratory wheezing and few crackles GASTROINTESTINAL: Abdomen is soft, reports tenderness in the periumbilical region and epigastric region. No rebound or guarding MUSCULOSKELETAL: Mild swelling of bilateral ankles. Multiple erythematous raised lesions on bilateral lower extremity predominantly left lower leg NEUROLOGICAL: Awake, alert. Normal speech. Cranial nerves are grossly intact. A/P Assessment and Plan NEURO/PSYCH: Metabolic encephalopathy - Encephalopathy seems to be secondary to severe sepsis - Minimize sedation - Morphine 2 mg IV every 6 hours when necessary for pain management RESP: Bilateral cavitary lung lesions/most likely cavitating pneumonia from staph aureus Respiratory insufficiency with hypoxia Large right loculated pleural effusion - Right thoracentesis with 1 L cloudy yellow fluid removed, fluid cell studies WBC 2,600, chemistry pending - Patient status post pigtail catheter placement yesterday, 445 cc prior pulled out yesterday. - DuoNeb every 6 hours and when necessary albuterol - Patient's presentation more consistent with cavitating bacterial pneumonia, cannot rule out tuberculosis or malignancy CV: Lactic acidosis Sinus tachycardia Aortic valve endocarditis - Normal saline IV fluids 3L bolus 11/13/16 and continue 84 ml per hour 2-D echocardiogram revealed EF 55-60%. Moderate AR. CHANDNI revealed 17 mm x 17 millimeter mobile mass on aortic valve - CT surgery consult. Recommendations pending - Trend lactic acid GI: Acute abdominal pain Hypoalbuminemia - NPO, IV Protonix. - CT of the abdomen pelvis with IV contrast revealed possible ileus., Gastric contraction at gastric duodenal junction. 2 mm renal cyst. - Ax-ray 11/15 revealed improving mild ileus. GI following. : - Monitor renal function closely. Fluid resuscitation as above ID: Severe sepsis Multilobar cavitating pneumonia secondary staph aureus Staph aureus empyema - IV vancomycin, pharmacy to dose. Zosyn 4.5 g every 6 hours, Pertinent cultures 11/13 - blood cultures 2 - staph aureus 11/13 and 11/14- pleural fluid- staph aureus 11/14- sputum- staph aureus Pansensitive. Blood cultures 2 ordered today. Infectious disease following. - Follow-up on blood sputum cultures, f/u urine for Legionella and pneumococcal antigen HEME: Leukocytosis - Monitor CBC, CMP, coags ENDO: Hyponatremia - Hyponatremia may be secondary to SIADH from pneumonia versus malignancy - Electrolyte Replacement per protocol PROPH: - Bilateral lower extremity SCDs. Lovenox, IV Protonix for prophylaxis LINES: - Utilize peripheral IVs, central line if needed level II Josh Saunders MD Nov 15, 2016 15:19
[2016-11-15] MEDS ORDERED: DILTIAZEM HCL 25 MG/5 ML VIAL IVP ONE (15:45)
[2016-11-15] MEDS ORDERED: POTASSIUM CHLORIDE 20 MEQ CONTROLLED RELEASE TAB PO ONE (15:45)
--- NOTE | 2016-11-15 16:09 | HHI.IDPN ---
Note Infectious Disease Note Patient is somnolent and unresponsive. Sedated. Afebrile. Currently in afib. Large vegetation on AV and moderate aortic regurg on CHANDNI. Culture of blood 11/14 - Staph aureus. Culture of pleural fluid 11/14 - staph aureus. AFB stain negative. Presented to the emergency department with a 2-week history of weakness. He was noted to have low oxygen saturation. He reported that he had productive cough over the past couple of weeks and was experiencing shortness of breath. ALLERGIES NO KNOWN DRUG ALLERGIES. Current Medications Medications (Trade) Dose Ordered Sig/Gaye Route PRN Reason Start Time Stop Time Status Last Admin Dose Admin Piperacillin Sod/ Tazobactam Sod 100 ml @ 200 mls/hr Q6H IV 11/13/16 21:00 11/15/16 14:30 Levofloxacin/ Dextrose 150 ml @ 100 mls/hr Q24H IV 11/13/16 18:00 11/14/16 17:52 Sodium Chloride (NS 1000 ml Inj) 1,000 ml @ 84 mls/hr [id number] IV 11/13/16 17:15 11/15/16 07:01 Sodium Chloride (NS Flush) 2 ml UNSCH PRN IV FLUSH FLUSH AFTER USING IV ACCESS 11/13/16 17:15 Sodium Chloride (NS Flush) 2 ml BID IV FLUSH 11/13/16 21:00 11/15/16 10:37 Enoxaparin Sodium (Lovenox Inj) 40 mg Q24H SQ 11/13/16 20:00 11/14/16 21:35 Miscellaneous Information 1 [id number] XX 11/13/16 17:15 Chlorhexidine Gluconate (Chlorhexidine 2% Cloth) 3 pack Taper DAILY@04 TOP 11/14/16 04:00 11/10/17 03:59 11/15/16 04:00 Chlorhexidine Gluconate (Chlorhexidine 2% Cloth) 3 pack UNSCH PRN TOP HYGIENIC CARE 11/13/16 17:15 Senna/Docusate Sodium 1 tab 1 tab BID PO 11/13/16 21:00 11/15/16 10:37 Pharmacy Profile Note (Vancomycin Consult Pharmacy) 0 ml @ 0 mls/hr UNSCH OTHER 11/13/16 17:30 Ondansetron HCl (Zofran Inj) 4 mg Q6H PRN IV PUSH NAUSEA 11/14/16 06:30 11/14/16 06:52 Morphine Sulfate (Morphine Inj) 2 mg Q3H PRN IV PUSH pain 5-10 11/14/16 09:00 11/14/16 12:32 Metoclopramide HCl (Reglan Inj) 10 mg Q8HR IM 11/14/16 14:00 11/15/16 14:30 Pantoprazole Sodium (Protonix Inj) 40 mg BID IV 11/14/16 21:00 11/15/16 10:36 Polyethylene Glycol 17 gm 17 gm BID PO 11/14/16 21:00 11/15/16 10:37 Vancomycin HCl/ Sodium Chloride (Vancomycin Inj/ NS 250 ml Inj) 262.5 ml @ 250 mls/hr Q8H IV 11/15/16 04:00 11/15/16 12:24 Miscellaneous Information SPECIFIC LAB TO BE ... ONCE ONCE .XX 11/16/16 03:45 11/16/16 03:46 Diltiazem HCl/ Sodium Chloride (Cardizem Inj/NS Inj) 125 ml @ 0 mls/hr TITRATE IV 11/15/16 15:45 OBJECTIVE: Vital Signs Date Time Temp Pulse Resp B/P Pulse Ox O2 Delivery O2 Flow Rate FiO2 11/15/16 14:00 105 11/15/16 12:00 101 11/15/16 12:00 97.4 101 18 124/60 95 11/15/16 10:00 101 11/15/16 09:04 94 Nasal Cannula 5.00 11/15/16 08:00 101 11/15/16 08:00 98.0 101 20 125/59 93 11/15/16 06:00 100 11/15/16 06:00 100 11/15/16 04:00 98.5 96 28 133/64 93 11/15/16 04:00 96 11/15/16 02:00 95 11/15/16 00:00 97.5 96 28 136/64 81 11/15/16 00:00 96 11/14/16 22:43 99 Nasal Cannula 4.00 11/14/16 22:00 94 11/14/16 20:00 93 11/14/16 20:00 97.4 93 14 139/67 94 11/14/16 18:00 92 11/14/16 16:36 92 21 11/14/16 11/14/16 11/15/16 15:00 23:00 07:00 Intake Total 1365 ml 2322 ml 2008 ml Output Total 540 ml 725 ml 350 ml Balance 825 ml 1597 ml 1658 ml Intake Oral 480 ml 1000 ml 1000 ml IV Total 885 ml 1322 ml 1008 ml Output Urine Total 200 ml 600 ml 350 ml Chest Tube Drainage Total 340 ml 125 ml # Voids 4 2 Laboratory Tests Test 11/14/16 11/15/16 04:06 06:48 White Blood Count 28.9 TH/MM3 25.8 TH/MM3 Red Blood Count 3.68 MIL/MM3 3.95 MIL/MM3 Hemoglobin 11.4 GM/DL 11.8 GM/DL Hematocrit 34.1 % 36.9 % Mean Corpuscular Volume 92.7 FL 93.5 FL Mean Corpuscular Hemoglobin 30.9 PG 29.8 PG Mean Corpuscular Hemoglobin 33.3 % 31.8 % Concent Red Cell Distribution Width 14.2 % 14.3 % Platelet Count 302 TH/MM3 310 TH/MM3 Mean Platelet Volume 6.9 FL 6.9 FL Neutrophils (%) (Auto) 94.6 % 91.3 % Lymphocytes (%) (Auto) 2.5 % 2.6 % Monocytes (%) (Auto) 2.5 % 5.8 % Eosinophils (%) (Auto) 0.1 % 0.1 % Basophils (%) (Auto) 0.3 % 0.2 % Neutrophils # (Auto) 27.3 TH/MM3 23.6 TH/MM3 Lymphocytes # (Auto) 0.7 TH/MM3 0.7 TH/MM3 Monocytes # (Auto) 0.7 TH/MM3 1.5 TH/MM3 Eosinophils # (Auto) 0.0 TH/MM3 0.0 TH/MM3 Basophils # (Auto) 0.1 TH/MM3 0.1 TH/MM3 CBC Comment DIFF FINAL AUTO DIFF Differential Comment FINAL DIFF MANUAL Differential Total Cells 100 Counted Neutrophils % (Manual) 79 % Band Neutrophils % 15 % Lymphocytes % 2 % Monocytes % 4 % Neutrophils # (Manual) 24.3 TH/MM3 Platelet Estimate NORMAL Platelet Morphology Comment NORMAL Laboratory Tests Test 11/13/16 11/14/16 11/14/16 11/15/16 20:20 04:06 12:37 06:17 Lactic Acid Level 1.4 mmol/L 1.8 mmol/L 2.5 mmol/L Sodium Level 136 MEQ/L 134 MEQ/L Potassium Level 3.6 MEQ/L 3.9 MEQ/L Chloride Level 98 MEQ/L 96 MEQ/L Carbon Dioxide Level 30.5 MEQ/L 32.3 MEQ/L Anion Gap 8 MEQ/L 6 MEQ/L Blood Urea Nitrogen 18 MG/DL 17 MG/DL Creatinine 0.66 MG/DL 0.63 MG/DL Estimat Glomerular Filtration 125 ML/MIN 132 ML/MIN Rate Random Glucose 253 MG/DL 127 MG/DL Calcium Level 7.9 MG/DL 8.0 MG/DL Total Bilirubin 0.7 MG/DL 0.8 MG/DL Aspartate Amino Transf 36 U/L 33 U/L (AST/SGOT) Alanine Aminotransferase 42 U/L 32 U/L (ALT/SGPT) Alkaline Phosphatase 152 U/L 120 U/L Total Protein 6.5 GM/DL 6.7 GM/DL Albumin 1.3 GM/DL 1.4 GM/DL Amylase Level 78 U/L Lipase 206 U/L Magnesium Level 2.5 MG/DL Microbiology Date/Time Procedure Status Source Growth 11/13/16 13:30 Aerobic Blood Culture - Preliminary Resulted Blood Peripheral Staphylococcus Aureus 11/13/16 13:30 Anaerobic Blood Culture - Preliminary Resulted Staphylococcus Aureus 11/13/16 13:30 Aerobic Blood Culture - Preliminary Resulted Blood Peripheral Staphylococcus Aureus 11/13/16 13:30 Anaerobic Blood Culture - Preliminary Resulted Staphylococcus Aureus 11/13/16 14:00 Influenza Types A,B Antigen (KAMI) - Final Complete Nasal Washing NEGATIVE FOR FLU A AND B ANTIGEN.... 11/13/16 18:20 Gram Stain - Final Complete Fluid Pleural Fluid 11/13/16 18:20 Body Fluid Culture - Final Complete Staphylococcus Aureus 11/13/16 18:20 Acid Fast Stain - Final Resulted Fluid Pleural Fluid NO ACID FAST BACILLI SEEN 11/13/16 18:20 Mycobacterial Culture Resulted Fluid Pleural Fluid Pending 11/13/16 18:20 Fungal Smear - Final Resulted Fluid Pleural Fluid NO FUNGAL ELEMENTS SEEN. 11/13/16 18:20 Fungal Culture Resulted Fluid Pleural Fluid Pending 11/14/16 06:30 Acid Fast Stain - Final Resulted Sputum Expectorated Sputum NO ACID FAST BACILLI SEEN 11/14/16 06:30 Mycobacterial Culture Resulted Sputum Expectorated Sputum Pending 11/14/16 06:30 Gram Stain - Final Resulted Sputum Endotracheal 11/14/16 06:30 Sputum Culture - Preliminary Resulted Staphylococcus Aureus 11/14/16 14:15 Gram Stain - Final Resulted Fluid Pleural Fluid 11/14/16 14:15 Body Fluid Culture - Preliminary Resulted Staphylococcus Aureus 11/14/16 14:15 Acid Fast Stain - Final Resulted Fluid Pleural Fluid NO ACID FAST BACILLI SEEN 11/14/16 14:15 Mycobacterial Culture Resulted Fluid Pleural Fluid Pending 11/14/16 14:15 Fungal Smear - Final Resulted Fluid Pleural Fluid NO FUNGAL ELEMENTS SEEN. 11/14/16 14:15 Fungal Culture Resulted Fluid Pleural Fluid Pending PHYSICAL EXAMINATION GENERAL: Sedate don the vent. HEENT: No icterus. Oropharynx moist mucosa without lesions. No thrush. NECK: Supple without adenopathy. LUNGS: Rhonchi bilateral. using accessory muscles. HEART: Normal S1-S2 without audible murmurs, rubs or gallops. ABDOMEN: Bowel sounds present, soft, no tenderness appreciated. No palpable masses. EXTREMITIES: No clubbing or cyanosis or edema. The distal extremities are cold. No calf tenderness. SKIN: Punctate erythematous lesions at the lower extremities including the left tibia, left foot and right foot which blanches with palpation. Not typically embolic appearing. NEURO: No gross focal findings. PSYCH: Somnolent, unable to assess. IMPRESSION 1. Sepsis. Endocarditis AV Staph aureus. 2. Cavitary pulmonary lesions. Embolic. 3. Pneumonia. 4. Skin lesions which potentially could be embolic. 5. Leukocytosis secondary to infection. RECOMMENDATIONS 1. Start IV Ancef. 2. Stop vancomycin. 3. Stop Levaquin. 4. Stop piperacillin/Tazobactam. 5. Discontinue AFB isolation. 6. Monitor white blood cell count. 7. Repeat blood culture. 8. Monitor temp. Slava Garcia MD Nov 15, 2016 16:09
[2016-11-15] MEDS ORDERED: METOPROLOL TARTRATE 5 MG/5 ML VIAL IV PUSH ONE (16:15)
[2016-11-15] MEDS: DILTIAZEM INJ 125 MG in SODIUM CHLORIDE 0.9% INJ 100 ML IV SCH (16:20)
[2016-11-15] MEDS: ceFAZolin 2 GM PREMIX 50 ML IV SCH (17:45)
[2016-11-15] MEDS: METOPROLOL TARTRATE 5 MG/5 ML VIAL IV PUSH SCH ×2 (17:45→21:58)
--- NOTE | 2016-11-15 19:05 | RADRPT ---
EXAM DATE/TIME: 11/15/2016 18:21 [facility] COMPARISON: CT PULMONARY ANGIOGRAM, November 13, 2016, 15:50. CHEST SINGLE AP, November 15, 2016, 3:03. INDICATIONS : Short of breath. Known cavitary lung masses. MEDICAL HISTORY : None. SURGICAL HISTORY : None. ENCOUNTER: Subsequent ACUITY: 1 day PAIN SCORE: Non-responsive. LOCATION: Bilateral chest FINDINGS: 2 AP portable semierect views of the chest were obtained and again demonstrate a large cavitary mass in the right mid and upper lung measuring up to 10.3 x 9.2 cm in diameter. There is a small right eff usion again noted with blunting of the costophrenic angle. There is coarse patchy opacity at the righ t lung base. There is mild streaky opacity in the left lung. The known small cavitary lesions seen on CT are not visualized. The heart size remains at the upper limits of normal. The bony thorax is inta ct. CONCLUSION: No significant change. Krzysztof Mendez MD on November 15, 2016 at 19:01 Board Certified Radiologist. This report was verified electronically.
--- NOTE | 2016-11-15 19:14 | HHI.PR ---
Subjective Remarks 56 YOWM with Bactremia, Empyema, Endocarditis Pulled out chest tube Seen by Mild sob, on 6LNC Does't sleep well wants sleeping pill, Objective Vital Signs Vital Signs Date Time Temp Pulse Resp B/P Pulse Ox O2 Delivery O2 Flow Rate FiO2 11/15/16 18:00 125 11/15/16 16:20 115 24 114/55 92 11/15/16 16:05 148 22 125/58 91 11/15/16 16:00 97.6 142 24 133/63 91 11/15/16 16:00 142 11/15/16 15:50 133 27 130/63 89 11/15/16 15:35 158 26 137/63 92 11/15/16 14:00 105 11/15/16 12:00 101 11/15/16 12:00 97.4 101 18 124/60 95 11/15/16 10:00 101 11/15/16 09:04 94 Nasal Cannula 5.00 11/15/16 08:00 101 11/15/16 08:00 98.0 101 20 125/59 93 11/15/16 06:00 100 11/15/16 06:00 100 11/15/16 04:00 98.5 96 28 133/64 93 11/15/16 04:00 96 11/15/16 02:00 95 11/15/16 00:00 97.5 96 28 136/64 81 11/15/16 00:00 96 11/14/16 22:43 99 Nasal Cannula 4.00 11/14/16 22:00 94 11/14/16 20:00 93 11/14/16 20:00 97.4 93 14 139/67 94 I/O 11/14/16 11/14/16 11/14/16 11/15/16 11/15/16 11/15/16 07:00 15:00 23:00 07:00 15:00 23:00 Intake Total 1039 ml 1365 ml 2322 ml 2008 ml 1268 ml Output Total 600 ml 540 ml 725 ml 350 ml 510 ml Balance 439 ml 825 ml 1597 ml 1658 ml 758 ml Intake Oral 480 ml 480 ml 1000 ml 1000 ml 240 ml IV Total 559 ml 885 ml 1322 ml 1008 ml 1028 ml Output Urine Total 600 ml 200 ml 600 ml 350 ml 510 ml Chest Tube Drainage Total 340 ml 125 ml # Voids 4 2 # Bowel Movements 0 Result Diagram: 11/15/16 0648 11/15/16 0617 Objective Remarks GENERAL: WMWN WM, mild sob SKIN: Warm and dry. HEAD: Normocephalic. EYES: No scleral icterus. No injection or drainage. NECK: Supple, trachea midline. No JVD or lymphadenopathy. CARDIOVASCULAR: Regular rate and rhythm without murmurs, gallops, or rubs. RESPIRATORY: Breath sounds equal bilaterally. No accessory muscle use. GASTROINTESTINAL: Abdomen soft, non-tender, nondistended. MUSCULOSKELETAL: No cyanosis, or edema. BACK: Nontender without obvious deformity. No CVA tenderness. A/P Assessment and Plan Empyema Bactremia, sepsis Endocarditis Leucocytosis PLAN: Cont Abx Supplement 02 Restoril 15 mg q hs prn Emmett Bolton MD Nov 15, 2016 19:14
--- NOTE | 2016-11-15 20:18 | EKG ---
Date Performed: 11/15/2016 Time Performed: 15:27:30 PTAGE: 56 years EKG: Atrial fibrillation with uncontrolled ventricular response with PVC(s) Extensive ST-T leone es are nonspecific Abnormal ECG In comparison, rapid atrial fibrillation is present. PREVIOUS TRACING : 11/13/2016 13.55 DOCTOR: Souleymane Hood Interpretating Date/Time 11/15/2016 20:17:43
[2016-11-15] MEDS ORDERED: TEMAZEPAM 15 MG CAP PO PRN (21:00)
[2016-11-15] MEDS: ENOXAPARIN SODIUM 40 MG/0.4 ML SYRINGE SQ SCH (21:57)
[2016-11-15 22:20] LABS: BICARBONATE 28.1 MEQ/L (21.0-32.0); MAGNESIUM 2.4 MG/DL (1.5-2.5); POTASSIUM 3.9 MEQ/L (3.5-5.1)
[2016-11-16] VITALS (19 sets, daily range): BP systolic 109–153; BP diastolic 58–75; PULSE 74–139; RESP 25–45; TEMP 97.2–98.6; O2SAT 84–98
[2016-11-16] MEDS ORDERED: SODIUM CHLOR 0.9% 1000 ML INJ 1,000 ML IV ONE ×2 (00:30)
[2016-11-16] MEDS ORDERED: METOPROLOL TARTRATE 5 MG/5 ML VIAL IV PUSH ONE (00:30)
[2016-11-16] MEDS: ceFAZolin 2 GM PREMIX 50 ML IV SCH ×3 (01:48→16:13)
[2016-11-16] MEDS: CHLORHEXIDINE GLUCONATE 2 % 1 PACK (2 CLOTHS) TOP SCH (02:54)
[2016-11-16] MEDS: DILTIAZEM INJ 125 MG in SODIUM CHLORIDE 0.9% INJ 100 ML IV SCH (02:54)
[2016-11-16] MEDS ORDERED: PHARMACY ORDERED LAB ONE (03:45)
[2016-11-16] MEDS: RESP: ALBUTEROL 2.5 MG/IPRATROPIUM 0.5 MG NEB (SCH) INH ×4 (04:29→22:39)
[2016-11-16] MEDS: METOPROLOL TARTRATE 5 MG/5 ML VIAL IV PUSH SCH ×4 (06:36→16:14)
[2016-11-16] MEDS: METOCLOPRAMIDE HCL 10 MG/2 ML VIAL IM SCH (06:36)
[2016-11-16 06:37] LABS: BICARBONATE 24.9 MEQ/L (21.0-32.0); MAGNESIUM 2.3 MG/DL (1.5-2.5)
[2016-11-16] MEDS: SODIUM CHLOR 0.9% 1000 ML INJ 1,000 ML IV SCH ×2 (06:38→17:55)
[2016-11-16] MEDS: INSULIN ASPART SUPPLEMENTAL SCALE SQ SCH ×4 (06:39→21:00)
[2016-11-16 07:17] LABS: AUTOMATED NEUTROPHIL # 36.4 TH/MM3 (1.8-7.7); BASOPHIL # 0.1 TH/MM3 (0-0.2); BASOPHIL % 0.2 % (0.0-2.0); EOSINOPHIL % 0.1 % (0.0-4.0); HEMATOCRIT 33.4 % (39.0-51.0); LYMPHOCYTE # 1.2 TH/MM3 (1.0-4.8); MEAN CELL VOLUME 93.9 FL (80.0-100.0); MONO % 4.3 % (0.0-8.0); NEUT % 92.4 % (16.0-70.0); PLATELET COUNT 321 TH/MM3 (150-450); RED BLOOD COUNT 3.56 MIL/MM3 (4.50-5.90); RED CELL DISTRIBUTION WIDTH 14.5 % (11.6-17.2); WHITE BLOOD COUNT 39.4 TH/MM3 (4.0-11.0)
[2016-11-16 07:27] LABS: HEMO FLAGS AUTO DIFF
--- NOTE | 2016-11-16 08:53 | HHI.CCPN ---
Subjective Remarks/Hospital Course 56-year-old male is brought to the emergency department by EMS for evaluation of generalized weakness, confusion for about 2 weeks, and also increasing shortness of breath. His oxygen saturation was 88% on room air. EMS administered breathing treatments and Solu-Medrol 125 mg 1 and placed him on nasal cannula. Patient states that he had been sick for almost 10 days, but he is a poor historian. He had a productive cough, but reports no hematemesis or weight loss. He states that it was his neighbor who made him called EMS. He has no past medical history and last time had seen a doctor was about 15 years ago. He denies any fevers but reports some night sweats and chills. He was tachycardic with a heart rate of 115 bpm, had severe leukocytosis with a white count of 35,000 with 91% neutrophils. CMP shows hyponatremia with a sodium of 126. Lactic acid is 2.4. His Chest x-ray shows large 7.7 x 7.8 cm cavitary right midlung lesion with associated right-sided pleural effusion. Subcentimeter left mid lung pulmonary nodules. Patient received 1 L normal saline bolus and Zosyn 4.5 g and Zithromax 500 mg IV and was placed on TB/ respiratory isolation. He has been being in detention 2 years ago increasing his risk of tuberculosis. CT pulmonary angiogram negative for PE but showed multiple cavitary lesions within both lungs with the largest measuring 9.5 cm in the right upper lobe. Moderate size right pleural effusion. I evaluated the patient in the emergency department. Patient appears critically ill in moderate distress mildly tachypneic, sweating. I performed a bedside ultrasound which showed a right effusion which is large. The thoracentesis was performed and 1 L of cloudy dark pleural fluid was removed. Patient will be continued on Zosyn and Levaquin and vancomycin. ID consulted and I discussed with Dr. Steele-she recommended no empiric treatments for TB. 11/14/16: Patient seen and examined complaints of severe epigastric and periumbilical abdominal pain. Patient remains oriented to person. His white count is slightly improved from 35,000-28,9000. Na improved to 136. I have ordered a STAT CT abd/pelvis with IV contrast. Chest x-ray shows reaccumulation of right pleural effusion-fluid chemistries are pending but cell count indicates at least a parapneumonic effusion and patient will need a pigtail chest tube 11/15: Patient pulled his right-sided pigtail catheter out overnight last night. Currently nasal cannula in no acute distress. Afebrile. Continues to have a leukocytosis. Subjective 11/16: Currently on room air. Hold out his IVs reportedly overnight last night. Requesting diet. Awake and alert and following commands. Objective Vital Signs Date Time Temp Pulse Resp B/P Pulse Ox O2 Delivery O2 Flow Rate FiO2 11/16/16 08:09 94 Nasal Cannula 5.00 11/16/16 06:00 97 11/16/16 04:00 98.2 33 117/58 11/14/16 16:36 21 Intake and Output 11/15/16 11/15/16 11/16/16 08:00 16:00 00:00 Intake Total 2008 ml 1268 ml 1129 ml Output Total 350 ml 510 ml 400 ml Balance 1658 ml 758 ml 729 ml Result Diagram: 11/16/16 0601 11/16/16 0601 Other Results Microbiology Date/Time Procedure Status Source Growth 11/15/16 21:19 Aerobic Blood Culture Received Blood Peripheral Pending 11/15/16 21:19 Anaerobic Blood Culture Received Blood Peripheral Pending 11/14/16 14:15 Gram Stain - Final Resulted Fluid Pleural Fluid 11/14/16 14:15 Body Fluid Culture - Preliminary Resulted Staphylococcus Aureus 11/14/16 14:15 Fungal Smear - Final Resulted Fluid Pleural Fluid NO FUNGAL ELEMENTS SEEN. 11/14/16 14:15 Fungal Culture Resulted Fluid Pleural Fluid Pending 11/14/16 14:15 Acid Fast Stain - Final Resulted Fluid Pleural Fluid NO ACID FAST BACILLI SEEN 11/14/16 14:15 Mycobacterial Culture Resulted Fluid Pleural Fluid Pending 11/13/16 14:00 Influenza Types A,B Antigen (KAMI) - Final Complete Nasal Washing NEGATIVE FOR FLU A AND B ANTIGEN.... 11/13/16 13:30 Aerobic Blood Culture - Preliminary Resulted Blood Peripheral Staphylococcus Aureus 11/13/16 13:30 Anaerobic Blood Culture - Preliminary Resulted Staphylococcus Aureus Imaging Last Impressions Chest X-Ray 11/15/16 0600 Signed Impressions: Service Date/Time: Tuesday, November 15, 2016 03:03 - CONCLUSION: No appreciable change. Reba Banerjee MD Abdomen X-Ray 11/15/16 0600 Signed Impressions: Service Date/Time: Tuesday, November 15, 2016 03:07 - CONCLUSION: Probable mild ileus involving loops of bowel on the left side. Reba Banerjee MD Abdomen/Pelvis CT 11/14/16 0000 Signed Impressions: Service Date/Time: October 09:55 - CONCLUSION: 1. Multiple loops of fluid-filled small bowel which are larger in caliber in comparison to yesterday's examination although not enlarged by size criteria. This may reflect mild enteritis versus developing mild adynamic ileus. 2. Persistent luminal narrowing at the gastroduodenal junction without definite focal mass. This is of uncertain clinical significance and likely reflects gastric contraction. Gastric mass/metastatic disease is not very likely based on appearance although it cannot be excluded. 3. 2 cm ill-defined hypodense lesion in the left renal mid pole with indeterminate density. Differential considerations include complex cyst versus metastatic disease in this patient with apparent diffuse metastatic disease in the chest. 4. Redemonstration of multiple bilateral cavitary masses at the lung bases with loculated right pleural effusion. Elder Long MD CT Angiography 11/13/16 1328 Signed Impressions: Service Date/Time: Sunday, November 13, 2016 15:50 - CONCLUSION: 1. Multiple cavitary lesions within both lungs with the largest measuring 9.5 cm in the right upper lobe. Differential diagnosis includes infectious and neoplastic etiologies. 2. Moderate sized right pleural effusion with adjacent compressive atelectasis and/or infiltrate. 3. Cardiomegaly and coronary artery calcifications. 4. Subcarinal mediastinal lymphadenopathy. 5. Degenerative changes throughout the thoracic spine. Jed Ponce MD Head CT 11/13/16 1324 Signed Impressions: Service Date/Time: Sunday, November 13, 2016 15:46 - CONCLUSION: 1. No acute intracranial abnormality. Elder Long MD Objective Remarks GENERAL: 86-year-old male, resting in bed in no acute distress SKIN: Warm and dry. Scattered skin lesions erythematous predominantly left lower extremity, (probable bug bites per patient) HEAD: Normocephalic and atraumatic. EYES: No injection, drainage. MAURO. ENT: No nasal drainage noted. Oropharynx is clear. NECK: Supple. No JVD or thyromegaly or lymphadenopathy. CARDIOVASCULAR: Tachycardic, RR. S1, S2. No S4. Surprisingly aortic regurgitation murmur not appreciated. RESPIRATORY: Diminished breath sounds right lower lobe. Bilateral mild expiratory wheezing and few crackles. Bandages placed over right chest status post chest tube removal GASTROINTESTINAL: Abdomen is soft, reports tenderness in the periumbilical region and epigastric region. No rebound or guarding MUSCULOSKELETAL: Mild swelling of bilateral ankles. Multiple erythematous raised lesions on bilateral lower extremity predominantly left lower leg NEUROLOGICAL: Awake, alert. Normal speech. Cranial nerves are grossly intact. A/P Assessment and Plan NEURO/PSYCH: Metabolic encephalopathy - Encephalopathy seems to be secondary to severe sepsis and resolving - Minimize sedation - Morphine 2 mg IV every 6 hours when necessary for pain management RESP: Bilateral cavitary lung lesions/most likely cavitating pneumonia from staph aureus Respiratory insufficiency with hypoxia Large right loculated pleural effusion/empyema - Right thoracentesis with 1 L cloudy yellow fluid removed, fluid cell studies WBC 2,600, - Patient status post pigtail catheter placement yesterday, 445 cc prior pulled out 11/15. - DuoNeb every 6 hours and when necessary albuterol - Patient's presentation more consistent with cavitating bacterial pneumonia, cannot rule out tuberculosis or malignancy Evaluated by Dr. Samuels/CT surgery. Per his recommendations, No indication for decortication at this time. Plan CT chest today to reevaluate right empyema. If loculated will likely need IR to attempt chest tube placement Friday? CV: Lactic acidosis Sinus tachycardia Aortic valve endocarditis Atrial fibrillation with RVR Elevated troponin - likely rate dependent - Normal saline IV fluids 3L bolus 11/13/16 and continue 84 ml per hour 2-D echocardiogram revealed EF 55-60%. Moderate AR. CHANDNI revealed 17 mm x 17 millimeter mobile mass on aortic valve - CT surgery consult. Recommendations to intervention at this time - Trend lactic acid has cleared Started on Cardizem drip at currently 15 mg an hour. Will wean off with oral Cardizem 30 mg 4 times a day. On Lopressor 5 mill grams IV every 4 hours. GI: Acute abdominal pain Hypoalbuminemia - NPO, IV Protonix. - CT of the abdomen pelvis with IV contrast revealed possible ileus., Gastric contraction at gastric duodenal junction. 2 mm renal cyst. - AX-ray 11/15 revealed improving mild ileus. GI following. : - Monitor renal function closely. Fluid resuscitation as above ID: Severe sepsis Multilobar cavitating pneumonia secondary staph aureus Staph aureus empyema - IV vancomycin, pharmacy to dose. Zosyn 4.5 g every 6 hours, discontinued yesterday 11/15 Currently on Ancef day #2 per ID Pertinent cultures 11/13 - blood cultures 2 - staph aureus 11/13 and 11/14- pleural fluid- staph aureus 11/14- sputum- staph aureus 11/15 - blood cultures 2 - pending Pansensitive. Infectious disease following. HEME: Leukocytosis Normocytic anemia - Monitor CBC, CMP, coags Noticed white cell count has increased overnight. ENDO: Hyponatremia - Hyponatremia may be secondary to SIADH from pneumonia versus malignancy - Electrolyte Replacement per protocol TSH 0.6. PROPH: - Bilateral lower extremity SCDs. Lovenox, IV Protonix for prophylaxis LINES: - Utilize peripheral IVs, central line if needed level II Addendum Patient became more confused, not His Mask. Likely Aspirating. Decision Made to Intubate. Central Line Placed after Discussion with Family friend (Kerrie hobson)[facility] Surrogate by Proxy Josh Saunders MD Nov 16, 2016 08:53
[2016-11-16] MEDS: PANTOPRAZOLE SODIUM 40 MG VIAL IV SCH ×2 (09:08→22:35)
[2016-11-16] MEDS: POLYETHYLENE GLYCOL 17 GM PKG PO SCH ×2 (09:08→21:00)
[2016-11-16] MEDS: DOCUSATE SODIUM 50 MG/SENNA 8.6 MG TAB PO SCH ×2 (09:09→21:00)
[2016-11-16] MEDS: SODIUM CHLORIDE 0.9% FLUSH 10 ML FLUSH IV FLUSH SCH ×2 (09:09→22:35)
[2016-11-16] MEDS: DILTIAZEM HCL 30 MG TAB PO SCH ×2 (09:09→13:25)
--- NOTE | 2016-11-16 10:37 | RADRPT ---
EXAM DATE/TIME: 11/16/2016 10:17 [facility] COMPARISON: CHEST SINGLE AP, November 15, 2016, 18:21. INDICATIONS : Shortness of breath. RADIATION DOSE: 56.35 CTDIvol (mGy) MEDICAL HISTORY : Sepsis. SURGICAL HISTORY : Chest tube. ENCOUNTER: Initial ACUITY: 1 day PAIN SCALE: 0/10 LOCATION: Bilateral chest TECHNIQUE: Volumetric scanning of the chest was performed. Using automated exposure control and adjustment of t he mA and/or kV according to patient size, radiation dose was kept as low as reasonably achievable to obtain optimal diagnostic quality images. DICOM format image data is available electronically for r eview and comparison. FINDINGS: There are bilateral pleural effusions including a loculated effusion on the right as well as a hydrop neumothorax on the right. There is patchy consolidation at both lung bases with scattered noncalcifie d nodular foci bilaterally, and cavitary mass in the right upper lobe with thick wall and air fluid l evel measuring 10 x 7.8 cm, cavitary left upper lobe mass measuring 4.4 x 2.7 cm and cavitary left up per lobe mass anteriorly measuring 4.2 x 3 1 cm. They're scattered reticulonodular infiltrates also s een. The osseous structures are intact. CONCLUSION: 1. Bilateral effusions, right hydropneumothorax and bilateral cavitary masses greatest in the right u pper lobe. 2. Patchy reticulonodular infiltrate and scattered noncalcified lung nodules. Deven Urrutia MD on November 16, 2016 at 10:34 Board Certified Radiologist. This report was verified electronically.
[2016-11-16] MEDS: MULTIVITAMIN INJ 10 ML, THIAMINE INJ 100 MG, FOLIC ACID INJ 1 MG in SODIUM CHLORID 0.9%... IV SCH (10:42)
[2016-11-16 11:04] LABS: BANDS 13 % (0-6); MYELOCYTES 4 % (0-0); NEUTROPHIL # MANUAL DIFF 34.3 TH/MM3 (1.8-7.7); PLATELET ESTIMATE SMEAR NORMAL (NORMAL); PLATELET MORPHOLOGY NORMAL (NORMAL); POLYS (SEG NEUTROPHILS) 70 % (16-70); SCAN/DIFF FINAL DIFF MANUAL; TOXIC GRANULATION 1+ (NORMAL); TOXIC VACUOLATION PRESENT (NONE SEEN); WBC DIFF SAMPLE 100
[2016-11-16] MEDS ORDERED: Gentamicin Consult Pharmacy 1 EA OTHER SCH (11:45)
--- NOTE | 2016-11-16 11:50 | HHI.IDPN ---
Note Infectious Disease Note ID [id number] for Chart reviewed. is a 56 y/o CM who presented to the emergency department with a 2-week history of generalized weakness and feeling unwell. He was noted to have low oxygen saturation. He reported that he had productive cough over the past couple of weeks and was experiencing shortness of breath. Patient is AAOx3 and reports to me that he has never had prior endocarditis before. 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 He denies any injuries. He denies any IVDA or drug abuse in general. He denies any skin lesions. Upon review of chart it appears patient is being treated for TV endocarditis, septic lung emboli, empyema (s/p pigtail catheter which patient pulled out accidentally). Large vegetation on AV and moderate aortic regurg on CHANDNI. Culture of blood 11/14 - Staph aureus (MSSA) Culture of pleural fluid 11/14 - staph aureus. AFB stain negative. Overnight events reviewed. No fevers No rash No diarrhea Short of breath, tachypneic. UO ok on Cardizem gtt Not on pressors. Moves all 4, AAOx3, follows commands. ALLERGIES NO KNOWN DRUG ALLERGIES. Current Medications Current Medications Medications (Trade) Dose Ordered Sig/Gaye Route Start Time Stop Time Status Last Admin (NS Flush) 2 ml UNSCH PRN IV FLUSH 11/13/16 17:15 (NS Flush) 2 ml BID IV FLUSH 11/13/16 21:00 11/16/16 09:09 (Lovenox Inj) 40 mg Q24H SQ 11/13/16 20:00 11/15/16 21:57 Miscellaneous Information 1 Q361D XX 11/13/16 17:15 (Chlorhexidine 2% Cloth) 3 pack Taper DAILY@04 TOP 11/14/16 04:00 11/10/17 03:59 11/16/16 02:54 (Chlorhexidine 2% Cloth) 3 pack UNSCH PRN TOP 11/13/16 17:15 (Chinyere-Colace) 1 tab BID PO 11/13/16 21:00 11/16/16 09:09 (Zofran Inj) 4 mg Q6H PRN IV PUSH 11/14/16 06:30 11/14/16 06:52 (Morphine Inj) 2 mg Q3H PRN IV PUSH 11/14/16 09:00 11/14/16 12:32 (Protonix Inj) 40 mg BID IV 11/14/16 21:00 11/16/16 09:08 Polyethylene Glycol 17 gm 17 gm BID PO 11/14/16 21:00 11/16/16 09:08 Diltiazem HCl 125 mg/Sodium Chloride 125 ml @ 0 mls/hr TITRATE IV 11/15/16 15:45 11/16/16 02:54 (Ancef 2 Gm Premix) 50 ml @ 100 mls/hr Q8H IV 11/15/16 17:00 11/16/16 09:08 (Restoril) 15 mg HS PRN PO 11/15/16 21:00 (Reglan Inj) 10 mg Q8HR IV 11/16/16 14:00 (Lopressor Inj) 5 mg Q4HR IV PUSH 11/16/16 12:00 Diltiazem HCl 30 mg 30 mg QID PO 11/16/16 09:00 11/16/16 09:09 (Mvi-12 Inj/ Thiamine Inj/ Folvite Inj/NS 500 ml Inj) 511.2 ml @ 125 mls/hr DAILY IV 11/16/16 09:00 11/19/16 08:59 11/16/16 10:42 OBJECTIVE: Vital Signs Date Time Temp Pulse Resp B/P Pulse Ox O2 Delivery O2 Flow Rate FiO2 11/16/16 08:09 94 Nasal Cannula 5.00 11/16/16 06:00 97 11/16/16 04:00 98.2 89 33 117/58 98 11/16/16 04:00 89 11/16/16 02:00 97 11/16/16 00:00 97.9 138 45 109/60 88 11/16/16 00:00 139 11/15/16 22:33 95 Nasal Cannula 5.00 11/15/16 22:00 146 11/15/16 20:00 98.0 131 31 117/57 90 11/15/16 20:00 131 11/15/16 18:00 125 11/15/16 16:20 115 24 114/55 92 11/15/16 16:05 148 22 125/58 91 11/15/16 16:00 97.6 142 24 133/63 91 11/15/16 16:00 142 11/15/16 15:50 133 27 130/63 89 11/15/16 15:35 158 26 137/63 92 11/15/16 14:00 105 11/15/16 12:00 101 11/15/16 12:00 97.4 101 18 124/60 95 11/15/16 11/15/16 11/16/16 15:00 23:00 07:00 Intake Total 1268 ml 1129 ml 2483 ml Output Total 510 ml 400 ml 350 ml Balance 758 ml 729 ml 2133 ml Intake Oral 240 ml 240 ml 240 ml IV Total 1028 ml 889 ml 2243 ml Output Urine Total 510 ml 400 ml 350 ml Laboratory Tests Laboratory Tests Test 11/13/16 11/13/16 11/13/16 11/13/16 13:26 13:30 14:30 18:20 Ethyl Alcohol Level 5 MG/DL White Blood Count 35.0 TH/MM3 Red Blood Count 4.10 MIL/MM3 Hemoglobin 12.6 GM/DL Hematocrit 37.8 % Mean Corpuscular Volume 92.2 FL Mean Corpuscular Hemoglobin 30.9 PG Mean Corpuscular Hemoglobin 33.5 % Concent Red Cell Distribution Width 14.3 % Platelet Count 389 TH/MM3 Mean Platelet Volume 7.2 FL Neutrophils (%) (Auto) 89.6 % Lymphocytes (%) (Auto) 4.2 % Monocytes (%) (Auto) 5.7 % Eosinophils (%) (Auto) 0.0 % Basophils (%) (Auto) 0.5 % Neutrophils # (Auto) 31.3 TH/MM3 Lymphocytes # (Auto) 1.5 TH/MM3 Monocytes # (Auto) 2.0 TH/MM3 Eosinophils # (Auto) 0.0 TH/MM3 Basophils # (Auto) 0.2 TH/MM3 CBC Comment AUTO DIFF Differential Total Cells 100 Counted Neutrophils % (Manual) 91 % Band Neutrophils % 4 % Lymphocytes % 3 % Monocytes % 1 % Neutrophils # (Manual) 33.6 TH/MM3 Promyelocytes 1 % Differential Comment FINAL DIFF MANUAL Platelet Estimate NORMAL Platelet Morphology Comment NORMAL Prothrombin Time 15.4 SEC Prothromb Time International 1.4 RATIO Ratio Activated Partial 28.0 SEC Thromboplast Time Sodium Level 126 MEQ/L Potassium Level 4.0 MEQ/L Chloride Level 84 MEQ/L Carbon Dioxide Level 34.2 MEQ/L Anion Gap 8 MEQ/L Blood Urea Nitrogen 21 MG/DL Creatinine 0.86 MG/DL Estimat Glomerular Filtration 92 ML/MIN Rate Random Glucose 118 MG/DL Calcium Level 8.2 MG/DL Total Bilirubin 1.4 MG/DL Aspartate Amino Transf 56 U/L (AST/SGOT) Alanine Aminotransferase 48 U/L (ALT/SGPT) Alkaline Phosphatase 176 U/L Total Protein 7.6 GM/DL Albumin 1.6 GM/DL Lactic Acid Level 2.4 mmol/L Pleural Fluid pH 8.5 Pleural Fluid WBC 2620 /MM3 Pleural Fluid RBC 1767 /MM3 Pleural Fluid Neutrophils 85 % Pleural Fluid Lymphocytes 12 % Pleural Fluid Monocytes 3 % Pleural Fluid Comment Body Fluid LDH Source PLEURAL Body Fluid Lactate 646 U/L Dehydrogenase Body Fluid Amylase Source PLEURAL Body Fluid Amylase 27 U/L Test 11/13/16 11/13/16 11/14/16 11/14/16 20:20 21:00 04:06 12:37 Lactic Acid Level 1.4 mmol/L 1.8 mmol/L 2.5 mmol/L Nasal Screen MRSA (PCR) MRSA NOT DETECTED White Blood Count 28.9 TH/MM3 Red Blood Count 3.68 MIL/MM3 Hemoglobin 11.4 GM/DL Hematocrit 34.1 % Mean Corpuscular Volume 92.7 FL Mean Corpuscular Hemoglobin 30.9 PG Mean Corpuscular Hemoglobin 33.3 % Concent Red Cell Distribution Width 14.2 % Platelet Count 302 TH/MM3 Mean Platelet Volume 6.9 FL Neutrophils (%) (Auto) 94.6 % Lymphocytes (%) (Auto) 2.5 % Monocytes (%) (Auto) 2.5 % Eosinophils (%) (Auto) 0.1 % Basophils (%) (Auto) 0.3 % Neutrophils # (Auto) 27.3 TH/MM3 Lymphocytes # (Auto) 0.7 TH/MM3 Monocytes # (Auto) 0.7 TH/MM3 Eosinophils # (Auto) 0.0 TH/MM3 Basophils # (Auto) 0.1 TH/MM3 CBC Comment DIFF FINAL Differential Comment Sodium Level 136 MEQ/L Potassium Level 3.6 MEQ/L Chloride Level 98 MEQ/L Carbon Dioxide Level 30.5 MEQ/L Anion Gap 8 MEQ/L Blood Urea Nitrogen 18 MG/DL Creatinine 0.66 MG/DL Estimat Glomerular Filtration 125 ML/MIN Rate Random Glucose 253 MG/DL Calcium Level 7.9 MG/DL Total Bilirubin 0.7 MG/DL Aspartate Amino Transf 36 U/L (AST/SGOT) Alanine Aminotransferase 42 U/L (ALT/SGPT) Alkaline Phosphatase 152 U/L Total Protein 6.5 GM/DL Albumin 1.3 GM/DL Amylase Level 78 U/L Lipase 206 U/L Test 11/14/16 11/15/16 11/15/16 11/15/16 14:15 06:17 06:48 21:19 Pleural Fluid WBC 97025 /MM3 Pleural Fluid RBC 88330 /MM3 Pleural Fluid Neutrophils 97 % Pleural Fluid Lymphocytes 2 % Pleural Fluid Monocytes 1 % Sodium Level 134 MEQ/L 135 MEQ/L Potassium Level 3.9 MEQ/L 3.9 MEQ/L Chloride Level 96 MEQ/L 99 MEQ/L Carbon Dioxide Level 32.3 MEQ/L 28.1 MEQ/L Anion Gap 6 MEQ/L 8 MEQ/L Blood Urea Nitrogen 17 MG/DL 13 MG/DL Creatinine 0.63 MG/DL 0.54 MG/DL Estimat Glomerular Filtration 132 ML/MIN 158 ML/MIN Rate Random Glucose 127 MG/DL 108 MG/DL Calcium Level 8.0 MG/DL 8.1 MG/DL Magnesium Level 2.5 MG/DL 2.4 MG/DL Total Bilirubin 0.8 MG/DL Aspartate Amino Transf 33 U/L (AST/SGOT) Alanine Aminotransferase 32 U/L (ALT/SGPT) Alkaline Phosphatase 120 U/L Total Protein 6.7 GM/DL Albumin 1.4 GM/DL Thyroid Stimulating Hormone 0.646 uIU/ML 3rd Gen White Blood Count 25.8 TH/MM3 Red Blood Count 3.95 MIL/MM3 Hemoglobin 11.8 GM/DL Hematocrit 36.9 % Mean Corpuscular Volume 93.5 FL Mean Corpuscular Hemoglobin 29.8 PG Mean Corpuscular Hemoglobin 31.8 % Concent Red Cell Distribution Width 14.3 % Platelet Count 310 TH/MM3 Mean Platelet Volume 6.9 FL Neutrophils (%) (Auto) 91.3 % Lymphocytes (%) (Auto) 2.6 % Monocytes (%) (Auto) 5.8 % Eosinophils (%) (Auto) 0.1 % Basophils (%) (Auto) 0.2 % Neutrophils # (Auto) 23.6 TH/MM3 Lymphocytes # (Auto) 0.7 TH/MM3 Monocytes # (Auto) 1.5 TH/MM3 Eosinophils # (Auto) 0.0 TH/MM3 Basophils # (Auto) 0.1 TH/MM3 CBC Comment AUTO DIFF Differential Total Cells 100 Counted Neutrophils % (Manual) 79 % Band Neutrophils % 15 % Lymphocytes % 2 % Monocytes % 4 % Neutrophils # (Manual) 24.3 TH/MM3 Differential Comment FINAL DIFF MANUAL Platelet Estimate NORMAL Platelet Morphology Comment NORMAL Phosphorus Level 3.3 MG/DL Troponin I 0.20 NG/ML Test 11/16/16 06:01 White Blood Count 39.4 TH/MM3 Red Blood Count 3.56 MIL/MM3 Hemoglobin 10.7 GM/DL Hematocrit 33.4 % Mean Corpuscular Volume 93.9 FL Mean Corpuscular Hemoglobin 30.0 PG Mean Corpuscular Hemoglobin 32.0 % Concent Red Cell Distribution Width 14.5 % Platelet Count 321 TH/MM3 Mean Platelet Volume 7.6 FL Neutrophils (%) (Auto) 92.4 % Lymphocytes (%) (Auto) 3.0 % Monocytes (%) (Auto) 4.3 % Eosinophils (%) (Auto) 0.1 % Basophils (%) (Auto) 0.2 % Neutrophils # (Auto) 36.4 TH/MM3 Lymphocytes # (Auto) 1.2 TH/MM3 Monocytes # (Auto) 1.7 TH/MM3 Eosinophils # (Auto) 0.0 TH/MM3 Basophils # (Auto) 0.1 TH/MM3 CBC Comment AUTO DIFF Differential Total Cells 100 Counted Neutrophils % (Manual) 70 % Band Neutrophils % 13 % Lymphocytes % 7 % Monocytes % 6 % Neutrophils # (Manual) 34.3 TH/MM3 Myelocytes 4 % Differential Comment FINAL DIFF MANUAL Toxic Granulation 1+ Toxic Vacuolation PRESENT Platelet Estimate NORMAL Platelet Morphology Comment NORMAL Sodium Level 134 MEQ/L Potassium Level 4.0 MEQ/L Chloride Level 102 MEQ/L Carbon Dioxide Level 24.9 MEQ/L Anion Gap 7 MEQ/L Blood Urea Nitrogen 20 MG/DL Creatinine 0.61 MG/DL Estimat Glomerular Filtration 137 ML/MIN Rate Random Glucose 124 MG/DL Calcium Level 8.1 MG/DL Phosphorus Level 3.3 MG/DL Magnesium Level 2.3 MG/DL Microbiology Date/Time Procedure Status Source Growth 11/15/16 21:19 Aerobic Blood Culture - Preliminary Resulted Blood Peripheral NO GROWTH IN 1 DAY 11/15/16 21:19 Anaerobic Blood Culture - Preliminary Resulted Blood Peripheral NO GROWTH IN 1 DAY 11/14/16 14:15 Gram Stain - Final Complete Fluid Pleural Fluid 11/14/16 14:15 Body Fluid Culture - Final Complete Staphylococcus Aureus 11/14/16 14:15 Fungal Smear - Final Resulted Fluid Pleural Fluid NO FUNGAL ELEMENTS SEEN. 11/14/16 14:15 Fungal Culture Resulted Fluid Pleural Fluid Pending 11/14/16 14:15 Acid Fast Stain - Final Resulted Fluid Pleural Fluid NO ACID FAST BACILLI SEEN 11/14/16 14:15 Mycobacterial Culture Resulted Fluid Pleural Fluid Pending 11/13/16 14:00 Influenza Types A,B Antigen ([facility]) - Final Complete Nasal Washing NEGATIVE FOR FLU A AND B ANTIGEN.... 11/13/16 13:30 Aerobic Blood Culture - Final Complete Blood Peripheral Staphylococcus Aureus 11/13/16 13:30 Anaerobic Blood Culture - Final Complete Staphylococcus Aureus Last Impressions Chest CT 11/16/16 0000 Signed Impressions: Service Date/Time: Wednesday, November 16, 2016 10:17 - CONCLUSION: 1. Bilateral effusions, right hydropneumothorax and bilateral cavitary masses greatest in the right upper lobe. 2. Patchy reticulonodular infiltrate and scattered noncalcified lung nodules. Deven Urrutia MD Chest X-Ray 11/15/16 0600 Signed Impressions: Service Date/Time: Tuesday, November 15, 2016 03:03 - CONCLUSION: No appreciable change. Reba Banerjee MD Abdomen X-Ray 11/15/16 0600 Signed Impressions: Service Date/Time: Tuesday, November 15, 2016 03:07 - CONCLUSION: Probable mild ileus involving loops of bowel on the left side. Reba Banerjee MD Abdomen/Pelvis CT 11/14/16 0000 Signed Impressions: Service Date/Time: October 09:55 - CONCLUSION: 1. Multiple loops of fluid-filled small bowel which are larger in caliber in comparison to yesterday's examination although not enlarged by size criteria. This may reflect mild enteritis versus developing mild adynamic ileus. 2. Persistent luminal narrowing at the gastroduodenal junction without definite focal mass. This is of uncertain clinical significance and likely reflects gastric contraction. Gastric mass/metastatic disease is not very likely based on appearance although it cannot be excluded. 3. 2 cm ill-defined hypodense lesion in the left renal mid pole with indeterminate density. Differential considerations include complex cyst versus metastatic disease in this patient with apparent diffuse metastatic disease in the chest. 4. Redemonstration of multiple bilateral cavitary masses at the lung bases with loculated right pleural effusion. Elder Long MD CT Angiography 11/13/16 1328 Signed Impressions: Service Date/Time: Sunday, November 13, 2016 15:50 - CONCLUSION: 1. Multiple cavitary lesions within both lungs with the largest measuring 9.5 cm in the right upper lobe. Differential diagnosis includes infectious and neoplastic etiologies. 2. Moderate sized right pleural effusion with adjacent compressive atelectasis and/or infiltrate. 3. Cardiomegaly and coronary artery calcifications. 4. Subcarinal mediastinal lymphadenopathy. 5. Degenerative changes throughout the thoracic spine. Jed Ponce MD Head CT 11/13/16 1324 Signed Impressions: Service Date/Time: Sunday, November 13, 2016 15:46 - CONCLUSION: 1. No acute intracranial abnormality. Elder Long MD PHYSICAL EXAMINATION GENERAL: Sick appearing, tachypneic, using accessory muscles of respiration. HEENT: No icterus. Oropharynx moist mucosa without lesions. No thrush. NECK: Supple without adenopathy. LUNGS: Rhonchi bilateral. using accessory muscles. HEART: Normal S1-S2 without audible murmurs, rubs or gallops. ABDOMEN: Bowel sounds present, soft, no tenderness appreciated. No palpable masses. EXTREMITIES: No clubbing or cyanosis or edema. The distal extremities are cold. No calf tenderness. SKIN: Punctate erythematous lesions at the lower extremities including the left tibia, left foot and right foot which blanches with palpation. Not typically embolic appearing. NEURO: No gross focal findings. No neck stiffness, AAOx3. Moves all 4 extremtiies. PSYCH: Cooperative. IMPRESSION Sepsis. 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 MSSA bacteremia/sepsis. Cavitary pulmonary lesions: embolic. Acute respiratory failure Pneumonia: MSSA and possible component of aspiration. Acute metabolic encephalopathy: infection related. Skin lesions which potentially could be embolic. Leukocytosis secondary to infection. RECOMMENDATIONS Continue Ancef IV (MSSA bacteremia, endocarditis) Start Genta IV (for synergy given large AV valve, persistent sepsis, increasing leucocytosis, surgical source control difficult to achieve: Noted CTS eval) Start Zosyn IV for PSAE coverage and aspiration pending further eval. If gets intubated recommend bronchoscopy (d/w ) and repeat sputum cultures. IR consult when respiratory stable to see if any drainable lung lesions. Follow clinically Follow Cultures If overnight any change in clinical condition ok to call ID and also start 1 dose of Vanco and 1 dose of Micafungin till further eval. Monitor white blood cell count. D/w Patient code status: wants to be full code and all measures taken. Consented to HIV and hepatitis panel testing. D.w RN Time spent in excess of 40 mins. Critical thinking, decision making, d/w RN and MD. Reviewed chart, cultures, MAR, interactions, radiology etc. Compared imaging. Carline Gallegos MD Nov 16, 2016 11:50
[2016-11-16] MEDS: PIPERACIL-TAZO 4.5 GM PREMIX 100 ML IV SCH ×2 (11:57→23:04)
--- NOTE | 2016-11-16 12:36 | HHI.PR ---
Subjective Remarks Patient is on 6L oxygen appears tachypneic and tachycardic. Afebrile. WBC increased 39.[address] chest chest showed, right hydropneumothorax and bilateral cavitary masses greatest in the right upper lobe.. Patchy reticulonodular infiltrate and scattered noncalcified lung nodules. Objective Vital Signs Vital Signs Date Time Temp Pulse Resp B/P Pulse Ox O2 Delivery O2 Flow Rate FiO2 11/16/16 08:09 94 Nasal Cannula 5.00 11/16/16 06:00 97 11/16/16 04:00 98.2 89 33 117/58 98 11/16/16 04:00 89 11/16/16 02:00 97 11/16/16 00:00 97.9 138 45 109/60 88 11/16/16 00:00 139 11/15/16 22:33 95 Nasal Cannula 5.00 11/15/16 22:00 146 11/15/16 20:00 98.0 131 31 117/57 90 11/15/16 20:00 131 11/15/16 18:00 125 11/15/16 16:20 115 24 114/55 92 11/15/16 16:05 148 22 125/58 91 11/15/16 16:00 97.6 142 24 133/63 91 11/15/16 16:00 142 11/15/16 15:50 133 27 130/63 89 11/15/16 15:35 158 26 137/63 92 11/15/16 14:00 105 I/O 11/15/16 11/15/16 11/15/16 11/16/16 11/16/16 11/16/16 07:00 15:00 23:00 07:00 15:00 23:00 Intake Total 2008 ml 1268 ml 1129 ml 2483 ml Output Total 350 ml 510 ml 400 ml 350 ml Balance 1658 ml 758 ml 729 ml 2133 ml Intake Oral 1000 ml 240 ml 240 ml 240 ml IV Total 1008 ml 1028 ml 889 ml 2243 ml Output Urine Total 350 ml 510 ml 400 ml 350 ml # Voids 2 Result Diagram: 11/16/16 0601 11/16/16 0601 Other Results Last Impressions Chest CT 11/16/16 0000 Signed Impressions: Service Date/Time: Wednesday, November 16, 2016 10:17 - CONCLUSION: 1. Bilateral effusions, right hydropneumothorax and bilateral cavitary masses greatest in the right upper lobe. 2. Patchy reticulonodular infiltrate and scattered noncalcified lung nodules. Deven Urrutia MD Chest X-Ray 11/15/16 0600 Signed Impressions: Service Date/Time: Tuesday, November 15, 2016 03:03 - CONCLUSION: No appreciable change. Reba Banerjee MD Abdomen X-Ray 11/15/16 0600 Signed Impressions: Service Date/Time: Tuesday, November 15, 2016 03:07 - CONCLUSION: Probable mild ileus involving loops of bowel on the left side. Reba Banerjee MD Abdomen/Pelvis CT 11/14/16 0000 Signed Impressions: Service Date/Time: October 09:55 - CONCLUSION: 1. Multiple loops of fluid-filled small bowel which are larger in caliber in comparison to yesterday's examination although not enlarged by size criteria. This may reflect mild enteritis versus developing mild adynamic ileus. 2. Persistent luminal narrowing at the gastroduodenal junction without definite focal mass. This is of uncertain clinical significance and likely reflects gastric contraction. Gastric mass/metastatic disease is not very likely based on appearance although it cannot be excluded. 3. 2 cm ill-defined hypodense lesion in the left renal mid pole with indeterminate density. Differential considerations include complex cyst versus metastatic disease in this patient with apparent diffuse metastatic disease in the chest. 4. Redemonstration of multiple bilateral cavitary masses at the lung bases with loculated right pleural effusion. Elder Long MD CT Angiography 11/13/16 1328 Signed Impressions: Service Date/Time: Sunday, November 13, 2016 15:50 - CONCLUSION: 1. Multiple cavitary lesions within both lungs with the largest measuring 9.5 cm in the right upper lobe. Differential diagnosis includes infectious and neoplastic etiologies. 2. Moderate sized right pleural effusion with adjacent compressive atelectasis and/or infiltrate. 3. Cardiomegaly and coronary artery calcifications. 4. Subcarinal mediastinal lymphadenopathy. 5. Degenerative changes throughout the thoracic spine. Jed Ponce MD Head CT 11/13/16 1324 Signed Impressions: Service Date/Time: Wednesday, November 13, 2016 15:46 - CONCLUSION: 1. No acute intracranial abnormality. Elder Long MD Objective Remarks GENERAL: Patient is 56 yo sititng up in bed tachypneic in mild- mod resp distress SKIN: Warm and dry. HEAD: Normocephalic. EYES: No scleral icterus. No injection or drainage. NECK: Supple, trachea midline. No JVD or lymphadenopathy. CARDIOVASCULAR: Regular rate and rhythm without murmurs, gallops, or rubs. RESPIRATORY: Breath sounds equal bilaterally. Diminished GASTROINTESTINAL: Abdomen soft, non-tender, nondistended. MUSCULOSKELETAL: No cyanosis,++ edema. Neuro: Awake and alert A/P Assessment and Plan 1)Resp Insuff 2)Staph Aureus bacteremia 3)Empyema 4)Endocarditis involving AV 5)Leucocytosis 6)Cavitary pulm masses 2nd staph Aureus 7)Right hydroPTX PLAN: Wean down oxygen as tiki keep sat >92% Bronchodilators. CT chest reviewed. Patient is high risk for bronch at this time given his resp status however will consider bronch with BAL if gets intubated. Abx per ID ( On Ancef, Zosyn, Gent)monitor for signs of infections ( Fever, WBC) CTS is following- no intervention at this time. Patient pulled his pig tail catheter. Continue treatment plan. Poor prognosis Noam Calhoun MD Nov 16, 2016 12:36
[2016-11-16] MEDS: METOCLOPRAMIDE HCL 10 MG/2 ML VIAL IV SCH ×2 (13:26→22:34)
--- NOTE | 2016-11-16 14:52 | HHI.GIFU ---
Subjective Remarks Pt had reportedly been doing well this morning then became tachypneic and tachycardic and required increased supplemental O2 to 6L oxygen. CT chest revealed right hydropneumothorax and bilateral cavitary masses greatest in the right upper lobe. Pt had been tolerating liquid diet and it was advanced this morning without any reported issues. (Mary Hand) Objective Vitals I&O Vital Signs Date Time Temp Pulse Resp B/P Pulse Ox O2 Delivery O2 Flow Rate FiO2 11/16/16 12:00 101 11/16/16 12:00 97.8 101 40 153/66 95 11/16/16 10:00 96 11/16/16 08:09 94 Nasal Cannula 5.00 11/16/16 08:00 97.4 94 34 129/58 84 11/16/16 08:00 94 11/16/16 06:00 97 11/16/16 04:00 98.2 89 33 117/58 98 11/16/16 04:00 89 11/16/16 02:00 97 11/16/16 00:00 97.9 138 45 109/60 88 11/16/16 00:00 139 11/15/16 22:33 95 Nasal Cannula 5.00 11/15/16 22:00 146 11/15/16 20:00 98.0 131 31 117/57 90 11/15/16 20:00 131 11/15/16 18:00 125 11/15/16 16:20 115 24 114/55 92 11/15/16 16:05 148 22 125/58 91 11/15/16 16:00 97.6 142 24 133/63 91 11/15/16 16:00 142 11/15/16 15:50 133 27 130/63 89 11/15/16 15:35 158 26 137/63 92 I/O 11/15/16 11/15/16 11/15/16 11/16/16 11/16/16 11/16/16 07:00 15:00 23:00 07:00 15:00 23:00 Intake Total 2008 ml 1268 ml 1129 ml 2483 ml Output Total 350 ml 510 ml 400 ml 350 ml Balance 1658 ml 758 ml 729 ml 2133 ml Intake Oral 1000 ml 240 ml 240 ml 240 ml IV Total 1008 ml 1028 ml 889 ml 2243 ml Output Urine Total 350 ml 510 ml 400 ml 350 ml # Voids 2 Laboratory Laboratory Tests Test 11/15/16 11/16/16 21:19 06:01 Sodium Level 135 134 Potassium Level 3.9 4.0 Chloride Level 99 102 Carbon Dioxide Level 28.1 24.9 Anion Gap 8 7 Blood Urea Nitrogen 13 20 Creatinine 0.54 0.61 Estimat Glomerular Filtration 158 137 Rate Random Glucose 108 124 Calcium Level 8.1 8.1 Phosphorus Level 3.3 3.3 Magnesium Level 2.4 2.3 Troponin I 0.20 White Blood Count 39.4 Red Blood Count 3.56 Hemoglobin 10.7 Hematocrit 33.4 Mean Corpuscular Volume 93.9 Mean Corpuscular Hemoglobin 30.0 Mean Corpuscular Hemoglobin 32.0 Concent Red Cell Distribution Width 14.5 Platelet Count 321 Mean Platelet Volume 7.6 Neutrophils (%) (Auto) 92.4 Lymphocytes (%) (Auto) 3.0 Monocytes (%) (Auto) 4.3 Eosinophils (%) (Auto) 0.1 Basophils (%) (Auto) 0.2 Neutrophils # (Auto) 36.4 Lymphocytes # (Auto) 1.2 Monocytes # (Auto) 1.7 Eosinophils # (Auto) 0.0 Basophils # (Auto) 0.1 CBC Comment AUTO DIFF Differential Total Cells 100 Counted Neutrophils % (Manual) 70 Band Neutrophils % 13 Lymphocytes % 7 Monocytes % 6 Neutrophils # (Manual) 34.3 Myelocytes 4 Differential Comment FINAL DIFF MANUAL Toxic Granulation 1+ Toxic Vacuolation PRESENT Platelet Estimate NORMAL Platelet Morphology Comment NORMAL Date/Time Procedure Status Source Growth 11/15/16 21:19 Aerobic Blood Culture - Preliminary Resulted Blood Peripheral NO GROWTH IN 1 DAY 11/15/16 21:19 Anaerobic Blood Culture - Preliminary Resulted Blood Peripheral NO GROWTH IN 1 DAY 11/14/16 14:15 Gram Stain - Final Complete Fluid Pleural Fluid 11/14/16 14:15 Body Fluid Culture - Final Complete Staphylococcus Aureus 11/14/16 14:15 Fungal Smear - Final Resulted Fluid Pleural Fluid NO FUNGAL ELEMENTS SEEN. 11/14/16 14:15 Fungal Culture Resulted Fluid Pleural Fluid Pending 11/14/16 14:15 Acid Fast Stain - Final Resulted Fluid Pleural Fluid NO ACID FAST BACILLI SEEN 11/14/16 14:15 Mycobacterial Culture Resulted Fluid Pleural Fluid Pending 11/13/16 14:00 Influenza Types A,B Antigen (KAMI) - Final Complete Nasal Washing NEGATIVE FOR FLU A AND B ANTIGEN.... 11/13/16 13:30 Aerobic Blood Culture - Final Complete Blood Peripheral Staphylococcus Aureus 11/13/16 13:30 Anaerobic Blood Culture - Final Complete Staphylococcus Aureus Imaging Last Impressions Chest CT 11/16/16 0000 Signed Impressions: Service Date/Time: Wednesday, November 16, 2016 10:17 - CONCLUSION: 1. Bilateral effusions, right hydropneumothorax and bilateral cavitary masses greatest in the right upper lobe. 2. Patchy reticulonodular infiltrate and scattered noncalcified lung nodules. Deven Urrutia MD Chest X-Ray 11/15/16 0600 Signed Impressions: Service Date/Time: Tuesday, November 15, 2016 03:03 - CONCLUSION: No appreciable change. Reba Banerjee MD Abdomen X-Ray 11/15/16 0600 Signed Impressions: Service Date/Time: Tuesday, November 15, 2016 03:07 - CONCLUSION: Probable mild ileus involving loops of bowel on the left side. Reba Banerjee MD Abdomen/Pelvis CT 11/14/16 0000 Signed Impressions: Service Date/Time: October 09:55 - CONCLUSION: 1. Multiple loops of fluid-filled small bowel which are larger in caliber in comparison to yesterday's examination although not enlarged by size criteria. This may reflect mild enteritis versus developing mild adynamic ileus. 2. Persistent luminal narrowing at the gastroduodenal junction without definite focal mass. This is of uncertain clinical significance and likely reflects gastric contraction. Gastric mass/metastatic disease is not very likely based on appearance although it cannot be excluded. 3. 2 cm ill-defined hypodense lesion in the left renal mid pole with indeterminate density. Differential considerations include complex cyst versus metastatic disease in this patient with apparent diffuse metastatic disease in the chest. 4. Redemonstration of multiple bilateral cavitary masses at the lung bases with loculated right pleural effusion. Elder Long MD CT Angiography 11/13/16 1328 Signed Impressions: Service Date/Time: Sunday, November 13, 2016 15:50 - CONCLUSION: 1. Multiple cavitary lesions within both lungs with the largest measuring 9.5 cm in the right upper lobe. Differential diagnosis includes infectious and neoplastic etiologies. 2. Moderate sized right pleural effusion with adjacent compressive atelectasis and/or infiltrate. 3. Cardiomegaly and coronary artery calcifications. 4. Subcarinal mediastinal lymphadenopathy. 5. Degenerative changes throughout the thoracic spine. Jed Ponce MD Head CT 11/13/16 1324 Signed Impressions: Service Date/Time: Sunday, November 13, 2016 15:46 - CONCLUSION: 1. No acute intracranial abnormality. Elder Long MD Physical Exam HEENT: Normocephalic; atraumatic; no jaundice. CHEST: Tachypneic, course breath sounds. Drsg right chest. CARDIAC: Tachy ABDOMEN: +BS, soft, nondistended, nontender. EXTREMITIES: No clubbing, cyanosis, or edema. SKIN: Multiple spotted lesions to ble/feet. GLUER AND WEDGER: No focal deficits; alert and oriented times three. (Mary Hand) Assessment and Plan Plan ASSESSMENT - Abdominal pain. Abdomen/Pelvis CT (11/14/16)-----> 1. Multiple loops of fluid- filled small bowel which are larger in caliber in comparison to yesterday's examination although not enlarged by size criteria. This may reflect mild enteritis versus developing mild adynamic ileus. 2. Persistent luminal narrowing at the gastroduodenal junction without definite focal mass. This is of uncertain clinical significance and likely reflects gastric contraction. Gastric mass/metastatic disease is not very likely based on appearance although it cannot be excluded. 3. 2 cm ill-defined hypodense lesion in the left renal mid pole with indeterminate density. Differential considerations include complex cyst versus metastatic disease in this patient with apparent diffuse metastatic disease in the chest. 4. Redemonstration of multiple bilateral cavitary masses at the lung bases with loculated right pleural effusion. IMPROVED. No pain at this time. PPI. - Mild ileus/constipation. Abdomen X-Ray (11/15/16)----> Probable mild ileus involving loops of bowel on the left side. Reglan, Pericolace, Miralax. No bm yet, but abdomen is soft, nondistended, bowel sounds. Nontender. No abdominal pain. - Abnormal imaging with persistent luminal narrowing at the gastroduodenal junction without definite focal mass. PPI. Will need EGD at some point, timing to be determined. - Anemia. Likely multifactorial. No active bleeding. 11.8/36.9. - Bilateral cavitary lung lesions and right sided pleural effusion. CT Angiography (11/13/16)----> 1. Multiple cavitary lesions within both lungs with the largest measuring 9.5 cm in the right upper lobe. Differential diagnosis includes infectious and neoplastic etiologies. 2. Moderate sized right pleural effusion with adjacent compressive atelectasis and/or infiltrate. 3. Cardiomegaly and coronary artery calcifications. 4. Subcarinal mediastinal lymphadenopathy. Degenerative changes throughout the thoracic spine. S/P CT , but pt pulled out on 11/15. Pleural fluid with staphylococcus aureus. Pt had reportedly been doing well this morning then became tachypneic and tachycardic and required increased supplemental O2 to 6L oxygen. CT chest (11/16/16) ---> Right hydropneumothorax and bilateral cavitary masses greatest in the right upper lobe. Landy Templeton Zosyn. Pulm/ID/CCM following. - Sepsis with endocarditis. Abnormal 2D echo with moderate aortic regurgitation and HCANDNI with large vegetation. WBC worsening to 39.4. per CCM/ID, Landy Templeton Zosyn PLAN: - Diet as tolerated - Cont. PPI - Cont. Miralax - Cont. Reglan - Cont. Chinyere-Colace - Abx per ID/CCM - Monitor stool output - Supportive care - Consider EGD +/- Colonoscopy, timing to be determined- current septic with endocarditis/vegetation/bilateral cavitary lesions/pleural effusion. - Further recommendations as the case develops - Pt seen and examined by Dr. Smith and myself and this note is written on his behalf (Mary Hand) Physician Comments Patient seen and examined Agree with above Continue with current supportive care Monitor labs (Melquiades Smith MD) Mary Hand Nov 16, 2016 14:52 Melquiades Smith MD Nov 16, 2016 18:33
[2016-11-16 15:08] LABS: BODY FLUID LDH 1881 U/L (()); BODY FLUID LDH SOURCE PLEURAL (())
[2016-11-16] MEDS: GENTAMICIN/SOD CHL 80 MG/100 ML IV SCH (16:13)
[2016-11-16] MEDS ORDERED: ROCURONIUM INJ 50 MG/5 ML VIAL ONE (16:20)
--- NOTE | 2016-11-16 16:24 | RADRPT ---
EXAM DATE/TIME: 11/16/2016 15:52 [facility] COMPARISON: CHEST SINGLE AP, November 15, 2016, 3:03. CT THORAX W/O CONTRAST, November 16, 2016, 10:17. CHEST SINGLE AP , November 15, 2016, 18:21. INDICATIONS : Follow-up right pneumothorax. MEDICAL HISTORY : Sepsis. Cavitary mass. SURGICAL HISTORY : Chest tube. ENCOUNTER: Subsequent ACUITY: 2 days PAIN SCORE: 0/10 LOCATION: Bilateral chest FINDINGS: The heart size is normal. There are numerous patchy areas of consolidation seen throughout both lungs . There is a large cavitary lesion seen in the right midlung measuring 11 cm in diameter. There is un derlying interstitial disease seen throughout. There is a mild right pleural effusion. There are smal l foci of air seen in the pleural space at the right base. CONCLUSION: Numerous patchy areas of consolidation including a large cavitary lesion in the right midlung. There is also diffuse increased interstitial markings from diffuse processes such as diffuse infection or e pavel. Compared to the prior exam, these parenchymal areas of consolidation appears questionably worse . There continues to be a mild right pleural effusion with some air seen in the inferior pleural spac e just above the right hemidiaphragm. Agustin Price MD on November 16, 2016 at 16:18 Board Certified Radiologist. This report was verified electronically.
[2016-11-16] MEDS ORDERED: ETOMIDATE 40 MG/20 ML VIAL IV PUSH ONE (16:30)
[2016-11-16] MEDS ORDERED: ROCURONIUM INJ 50 MG/5 ML VIAL IV ONE (16:30)
--- NOTE | 2016-11-16 17:03 | PD.PROCEDR ---
Central Line Procedure REASON FOR PROCEDURE Central venous access PROCEDURE PERFORMED Central line placement: Left IJ CVL CONSENT Informed consent for procedure was obtained. The risks and benefits of the procedure were discussed to include but limited to bleeding, clot formation, infection, and even . ANESTHESIA Local injection of 1% Lidocaine DESCRIPTION OF THE PROCEDURE The patient was placed in supine, mild Trendelenburg position. The area was exposed and cleansed with ChloraPrep, times two. Large sterile drape was used to cover the patient, with the site exposed, under sterile conditions including cap, face mask, sterile gown, and sterile gloves. On single attempt, the introducer needle was inserted with negative pressure in syringe and venous flash was obtained. The guide wire was then advanced without any restriction and the needle was removed. The dilator was used without any complications. Using Seldinger technique the triple-lumen antibiotic coated catheter was advanced over the guide wire to a depth of 20 centimeters. The guide wire was removed. All ports were aspirated with dark venous blood return and flushed easily with sterile saline. All ports were capped. Antibiotic disc was placed around central line at puncture site. The central line was secured to the skin with two interrupted 2.0 silk sutures. The area was bandaged with sterile see- through central line bandage. RADIOLOGICAL DATA Ultrasound guidance was used to locate left internal jugular vein. Doppler/ color flow was used to confirm venous flow. COMPLICATIONS: No apparent complications ESTIMATED BLOOD LOSS: Less than 1 cc. Josh Saunders MD Nov 16, 2016 17:03
--- NOTE | 2016-11-16 17:04 | PD.PROCEDR ---
Procedure Note Procedure DATE:11/16/2016 PROCEDURE: Orotracheal intubation INDICATION: Acute hypoxemic respiratory failure DETAILS OF PROCEDURE The patient was placed in optimal position and preoxygenated with 100% FiO2 via bag valve mask. At the start oxygen saturation was 92%. The patient was administered 20 mg etomidate IV and 50 mg rocuronium IV. I entered the oropharynx with a size 4 GVL glide scope blade and obtained a grade 2 view of the airway. On single attempt a size 8.0 cuffed endotracheal tube was passed through the vocal cords. Correct tube location was confirmed with end tidal CO2 detector and by auscultating over bilateral lung doyle. The endotracheal tube was secured with adhesive tape at a depth of 24 cm at the lips. The patient was connected to the ventilator. The patient tolerated the procedure well without any apparent complications. Oxygen saturations were maintained greater than 95% all times. STAT chest x-ray pending at time of dictation. Josh Saunders MD Nov 16, 2016 17:04
[2016-11-16] MEDS ORDERED: TERBUTALINE INJ 1 MG/ML AMP SQ PRN (17:15)
[2016-11-16 17:57] LABS: BLOOD GAS BASE EXCESS -0.1 mmol/L (-2-2); BLOOD GAS CARBOXYHEMOGLOBIN 1.2 % (0-4); BLOOD GAS HCO3 26 mmol/L (22-26); BLOOD GAS METHEMOGLOBIN 1.3 % (0-2); BLOOD GAS O2 HGB SATURATION 91 % (90-100); BLOOD GAS OXYGEN CONTENT 13.9 Vol % (12.0-20.0); BLOOD GAS PCO2 62 mmHg (38-42); BLOOD GAS PO2 86 mmHg (61-120); BLOOD GAS TOTAL HGB 10.8 G/DL (12.0-16.0); CRITICAL VALUE YES; DRAW SITE LT RADIAL; FIO2 100 %; NUMBER OF ARTERIAL PUNCTURES 1; OXYGEN DEVICE VENTILATOR; STAT NO; TEMP CORR TO 98.6; ULNAR PULSE PRESENT; VENT SETTINGS SEE COMMENTS
[2016-11-16] MEDS ORDERED: DILTIAZEM HCL 30 MG TAB NG SCH (18:00)
--- NOTE | 2016-11-16 18:07 | RADRPT ---
EXAM DATE/TIME: 11/16/2016 17:16 [facility] COMPARISON: CHEST SINGLE AP, November 16, 2016, 15:52. INDICATIONS : ET tube/ central line placement MEDICAL HISTORY : Sepsis. Cavitary mass. SURGICAL HISTORY : Chest tube ENCOUNTER: Initial ACUITY: 3 days PAIN SCORE: Non-responsive. LOCATION: Bilateral chest FINDINGS: The patient is intubated with ET tube 6 cm from the joseph. There is a left internal jugular central line place with the tip overlying the SVC. A significant pneumothorax is not seen. Again noted are th e multiple patchy masses/consolidations seen bilaterally and a cavitary mass in the right midlung. Th ere is a moderate right pleural effusion. There is chronic change at the distal left clavicle from pr ior injury. CONCLUSION: 1. ET tube and left internal jugular central line in good position. 2. Persistent patchy areas of consolidation seen bilaterally and the cavitary mass in the right mid l phoebe. 3. Moderate right pleural effusion. Agutsin Price MD on November 16, 2016 at 18:02 Board Certified Radiologist. This report was verified electronically.
[2016-11-16] MEDS ORDERED: LIDOCAINE 2%/EPINEPHrine 1:100,000 30ML MDV ONE (18:31)
[2016-11-16 18:41] LABS: BLOOD GAS BASE EXCESS -0.3 mmol/L (-2-2); BLOOD GAS CARBOXYHEMOGLOBIN 1.1 % (0-4); BLOOD GAS HCO3 26 mmol/L (22-26); BLOOD GAS METHEMOGLOBIN 1.1 % (0-2); BLOOD GAS O2 HGB SATURATION 97 % (90-100); BLOOD GAS OXYGEN CONTENT 14.7 Vol % (12.0-20.0); BLOOD GAS PCO2 55 mmHg (38-42); BLOOD GAS PO2 168 mmHg (61-120); BLOOD GAS TOTAL HGB 10.6 G/DL (12.0-16.0); CRITICAL VALUE YES; DRAW SITE LT RADIAL; FIO2 100 %; NUMBER OF ARTERIAL PUNCTURES 1; OXYGEN DEVICE VENTILATOR; STAT NO; TEMP CORR TO 98.6; ULNAR PULSE PRESENT; VENT SETTINGS SEE COMMENTS
--- NOTE | 2016-11-16 19:05 | PD.PROCEDR ---
Procedure Note Procedure Date of procedure: 11/16/2016 Procedure: Right chest tube placement Indication: Right hydropneumothorax Details of procedure: Informed consent was obtained from the healthcare proxy Deven. The patient was laid supine. The lateral chest wall was cleaned with ChloraPrep twice. Regional sterile drapes were applied. 1% lidocaine was used for local anesthesia and injected into the subcutaneous and deep muscle tissues. A 1.5 cm skin incision was made with a scalpel blade. A hemostat was used for blunt dissection. The hemostat was entered into the pleural space superior to the rib with release of balta fluid and air. I explored the wound with my finger. A size 28 Albanian chest tube was inserted with a Teetee clamp into the pleural cavity and directed toward the apex to a depth of 18. 0-0 silk was used to close the wound and to secure the chest tube. A sterile Vaseline gauze dressing was applied. The chest tube was connected to a Pleur-evac drainage system. There was a persistent 1 chamber air leak. There was 20 cc output from the chest tube. Estimated blood loss: 5 cc Complications: None. Stat chest x-ray pending at time of dictation. Josh Saunders MD Nov 16, 2016 19:05
--- NOTE | 2016-11-16 19:45 | RADRPT ---
EXAM DATE/TIME: 11/16/2016 19:05 [facility] COMPARISON: CT THORAX W/O CONTRAST, November 16, 2016, 10:17. CHEST SINGLE AP, November 16, 2016, 17:16. INDICATIONS : Evalute right sided chest tube placement. MEDICAL HISTORY : Sepsis. Cavitary mass. SURGICAL HISTORY : Chest tube. ENCOUNTER: Subsequent ACUITY: 3 days PAIN SCORE: Non-responsive. LOCATION: Bilateral chest FINDINGS: There is a right-sided chest tube seen over the right lateral inferior chest. There continues to be a mild right pleural effusion and some air in the inferior right pleural space. There is a cavitary ar ea in the right mid lung. There are patchy areas of consolidation seen bilaterally. ET tube, NG tube, and left internal jugular central line are well placed. CONCLUSION: Right-sided chest tube in place. Agustin Price MD on November 16, 2016 at 19:40 Board Certified Radiologist. This report was verified electronically.
[2016-11-16] MEDS: CHLORHEXIDINE 0.12% (ORAL KIT) 15 ML CUP MT SCH (20:00)
[2016-11-16] MEDS: PROPOFOL 1000 MG/100 ML INJ 100 ML IV SCH ×2 (20:03→22:36)
--- NOTE | 2016-11-16 21:14 | RADRPT ---
EXAM DATE/TIME: 11/16/2016 20:36 [facility] COMPARISON: CT PULMONARY ANGIOGRAM, November 13, 2016, 15:50. CT THORAX W/O CONTRAST, November 16, 2016, 10:17. INDICATIONS : Pneumothorax, right side chest tube. RADIATION DOSE: 7.93 CTDIvol (mGy) MEDICAL HISTORY : None SURGICAL HISTORY : Left tibia repair. ENCOUNTER: Initial ACUITY: 1 day PAIN SCALE: Non-responsive LOCATION: chest TECHNIQUE: Volumetric scanning of the chest was performed. Using automated exposure control and adjustment of t he mA and/or kV according to patient size, radiation dose was kept as low as reasonably achievable to obtain optimal diagnostic quality images. DICOM format image data is available electronically for r eview and comparison. FINDINGS: LUNGS: There is a 9.5 cm cavitary mass in the right midlung. There are multiple other focal irregular masses seen throughout both lungs. There are at least 2 masses on the left side demonstrating some cavitary change. There is atelectasis of the lower lobes posteriorly bilaterally. PLEURAE: There is a right-sided chest tube directed superiorly into the posterior superior pleural space. Ther e continues to be a moderate right pleural effusion primarily seen at the right base. There some scat tered loculated air within the right pleural space inferiorly. There is a mild left effusion. There i s a small focus of air seen within the posterior left effusion. MEDIASTINUM: Mild prominent lymph nodes are seen in the pre-carinal, subcarinal and tracheobronchial regions. AXILLAE: Within normal limits. No lymphadenopathy. MUSCULOSKELETAL: Within normal limits for patient age. MISCELLANEOUS: The visualized upper abdominal organs demonstrate no acute abnormality. CONCLUSION: 1. New right chest tube in the posterior superior right pleural space. There continues to be a modera te right pleural effusion primarily seen at the base. Some degree of loculation may be present inferi greg. The effusion does not layer posteriorly. There are scattered punctate areas of air within the p leural space inferiorly on the right. There is a solitary small area of air within the mild left pleu ral effusion. 2. Numerous irregular masses seen throughout both lungs some which are cavitary. These are nonspecifi c. Inflammatory masses needs be suspected. The multiplicity raises possibility of septic emboli. Agustin Price MD on November 16, 2016 at 21:04 Board Certified Radiologist. This report was verified electronically.
[2016-11-16] MEDS ORDERED: ROCURONIUM INJ 100 MG/10 ML VIAL IV ONE (21:15)
[2016-11-16 21:42] LABS: BLOOD, URINE NEG (NEG); COMMENT (UR) CULT NOT INDICATED; CULTURE IF INDICATED CULT NOT INDICATED; GLUCOSE,URINE NEG (NEG); GRANULAR CAST, URINE 3 /lpf; KETONE, URINE NEG (NEG); MUCUS URINE FEW /lpf (OCC); NITRITE,URINE NEG (NEG); SQUAMOUS EPITHELIAL CELL URINE <1 /hpf (0-5); URINE COLOR YELLOW (YELLW/STRAW); WHITE BLOOD CELL CAST, URINE 1 /lpf
--- NOTE | 2016-11-16 21:56 | PD.PROCEDR ---
Procedure Note Procedure DATE: 11/16/2016 PROCEDURE: Right femoral arterial catheter placement INDICATION: Neck access DETAILS OF PROCEDURE The patient was placed in supine position. The skin was cleansed with Chloraprep. Additional barrier precautions included large sterile drape, sterile gloves, sterile gown, face mask, and hat. 1% lidocaine was used for local anesthesia. Under direct ultrasound guidance and on the initial attempt, the artery was accessed with an introducer needle. The guide wire was advanced. Using Seldinger technique 20 gauge arterial catheter was placed. The guide wire was removed. The catheter was connected to a transducer line and flushed with saline. The video monitor displayed normal arterial wave forms. The catheter was secured with 2-0 silk. A sterile dressing with antibiotic disc was applied. ESTIMATED BLOOD LOSS: minimal COMPLICATIONS: None Josh Saunders MD Nov 16, 2016 21:56
--- NOTE | 2016-11-16 21:58 | PD.PROCEDR ---
Procedure Note Procedure DATE: 11/16/2016 Bronchoscopy/flexible diagnostic and therapeutic: With right upper, middle, lower and left upper and lower bronchoalveolar lavage INDICATION: Hypoxiacollapsed lower lobes bilaterally CONSENT Informed consent for procedure was obtained from both care proxy Madeline-. DESCRIPTION OF THE PROCEDURE The patient was placed in supine position. Patient received sedation with propofol drip at 50 mg/kg/m and fentanyl drip at 250 g an hour. Receiving rocuronium 50 mg IV 1 for paralytic. Patient was on ACV ventilation with FiO2 100%. I entered the 8.0 ET tube in noted thick white secretions at the end. These were lavaged. The trachea showed mild evidence of erythema and thick whitish secretions at the right and left mainstem. These were cleared with significant bronchial of arch over 10 minutes. After suctioning, each segment/ segment in the left upper lingula and lower lobe was visualized. There is mild friability throughout. There is modest thick white secretions/mucous plugging that was lavaged with sterile saline. There is no evidence of mass, anatomical distortion or hemorrhage. The bronchoscope was withdrawn and then advanced to the right mainstem. Again, thick white mucous plugging was lavaged with several aliquots of sterile saline. The right upper lobe showed no mass, anatomical distortions or hemorrhage. A Lukens trap was placed in right upper lobe with 30 cc sterile saline was irrigated with sample sent to see orders. The right middle, and lower lobes were both lavaged with mucous plugging. No mass/hemorrhage was noted. Mild friability throughout. The bronchoscope was withdrawn. Saturations remained above 92% all time. ESTIMATED BLOOD LOSS: Minimal COMPLICATIONS: No apparent complications. STAT chest x-ray pending at time of dictation Josh Saunders MD Nov 16, 2016 21:58
--- NOTE | 2016-11-16 22:26 | RADRPT ---
EXAM DATE/TIME: 11/16/2016 22:02 [facility] COMPARISON: CHEST SINGLE AP, November 16, 2016, 19:05. INDICATIONS : Post right sided bronchoscopy and right chest tube revision. MEDICAL HISTORY : Sepsis. Cavitary mass. SURGICAL HISTORY : Chest tube. ENCOUNTER: Subsequent ACUITY: 3 days PAIN SCORE: Non-responsive. LOCATION: Bilateral chest FINDINGS: There is a right-sided chest tube in place. The right effusion appears diminished. There is a large c avitary mass in the right midlung. There are multiple patchy areas of consolidation seen throughout b oth lungs. The heart size is normal. The ET tube, NG tube and left internal jugular central line are well placed. There is chronic change at the distal left clavicle. CONCLUSION: Right-sided chest tube with some decrease in the right pleural effusion. The parenchymal findings are unchanged. Agustin Price MD on November 16, 2016 at 22:21 Board Certified Radiologist. This report was verified electronically.
[2016-11-16] MEDS: HYDROCORTISONE SOD SUCCINATE 100 MG VIAL IV PUSH SCH (22:33)
[2016-11-16] MEDS: EPOPROSTENOL NEB SOLUTION 50 NG/KG/MIN 100 ML NEB SCH ×2 (22:33)
[2016-11-16] MEDS: VASOPRESSIN INJ 40 UNITS in DEXTROSE 5% IN WATER 100ML INJ 98 ML IV SCH ×2 (23:05)
[2016-11-16] MEDS: PHENYLEPHRINE INJ 160 MG in DEXTROSE 5% IN WATE 500 ML INJ 484 ML IV SCH ×2 (23:05)
[2016-11-17] VITALS (21 sets, daily range): BP systolic 108–123; BP diastolic 41–57; PULSE 65–74; RESP 20–22; TEMP 97.3–98.8; O2SAT 94–100
[2016-11-17] MEDS: GENTAMICIN/SOD CHL 80 MG/100 ML IV SCH ×3 (00:16→17:29)
[2016-11-17] MEDS: ceFAZolin 2 GM PREMIX 50 ML IV SCH ×3 (00:17→17:29)
[2016-11-17] MEDS: PROPOFOL 1000 MG/100 ML INJ 100 ML IV SCH ×6 (03:03→22:48)
[2016-11-17] MEDS: SODIUM CHLOR 0.9% 1000 ML INJ 1,000 ML IV SCH ×3 (03:03→15:43)
[2016-11-17] MEDS: CHLORHEXIDINE GLUCONATE 2 % 1 PACK (2 CLOTHS) TOP SCH (03:03)
[2016-11-17] MEDS: PIPERACIL-TAZO 4.5 GM PREMIX 100 ML IV SCH ×3 (03:28→21:48)
[2016-11-17] MEDS: fentaNYL DRIP 250 ML IV SCH ×2 (03:28→13:15)
[2016-11-17] MEDS: RESP: ALBUTEROL 2.5 MG/IPRATROPIUM 0.5 MG NEB (SCH) INH ×4 (03:50→20:09)
[2016-11-17 03:51] LABS: BRONCHOALVEOLAR LAVAGE WBC 422 /MM3
[2016-11-17 03:52] LABS: BRONCHOALVEOLAR LAVAGE RBC 56 /MM3; BRONCHOAVEOLAR HISTIOCYTES 2 %; BRONCHOAVEOLAR LYMPHOCYTES 4 %; BRONCHOAVEOLAR NEUTROPHILS 94 %
[2016-11-17 04:23] LABS: AUTOMATED NEUTROPHIL # 46.4 TH/MM3 (1.8-7.7); BASOPHIL # 0.1 TH/MM3 (0-0.2); BASOPHIL % 0.1 % (0.0-2.0); EOSINOPHIL # 0.1 TH/MM3 (0-0.4); EOSINOPHIL % 0.1 % (0.0-4.0); HEMATOCRIT 31.9 % (39.0-51.0); LYMPH % 2.1 % (9.0-44.0); MEAN CELL VOLUME 94.2 FL (80.0-100.0); MEAN CORPUSCULAR HEMOGLOBIN 30.2 PG (27.0-34.0); MEAN CORPUSCULAR HGB CONC 32.1 % (32.0-36.0); MONO % 2.8 % (0.0-8.0); NEUT % 94.9 % (16.0-70.0); PLATELET COUNT 340 TH/MM3 (150-450); RED BLOOD COUNT 3.39 MIL/MM3 (4.50-5.90); RED CELL DISTRIBUTION WIDTH 14.4 % (11.6-17.2)
[2016-11-17 04:30] LABS: HEMO FLAGS AUTO DIFF
--- NOTE | 2016-11-17 04:46 | RADRPT ---
EXAM DATE/TIME: 11/17/2016 03:36 [facility] COMPARISON: CHEST SINGLE AP, November 16, 2016, 22:02. INDICATIONS : Evaluate ETT placement. MEDICAL HISTORY : Sepsis. Cavitary mass. SURGICAL HISTORY : None. ENCOUNTER: Subsequent ACUITY: 1 week PAIN SCORE: Non-responsive. LOCATION: Bilateral chest FINDINGS: A single view of the chest demonstrates the endotracheal, nasogastric tube and left IJ central line i n good position. Right-sided chest tube remains with its tip overlying the apex. There is a large cav ity in the right midlung zone with the thick and thin walled cavity measuring 8.3 x 10.4 cm across. Some persistent consolidation the right lung base. Diffuse airspace disease on the left The cardiomed iastinal contours are unremarkable. Osseous structures are intact. CONCLUSION: Diffuse airspace disease a large cavity in the right midlung zone is unchanged. Tubes and catheter ar e in good position. Sawyer Robertson MD on November 17, 2016 at 4:43 Board Certified Radiologist. This report was verified electronically.
[2016-11-17 04:53] LABS: ANION GAP 9 MEQ/L (5-15); AST (GOT) 22 U/L (15-37); BICARBONATE 26.1 MEQ/L (21.0-32.0); BLOOD UREA NITROGEN 24 MG/DL (7-18); CHLORIDE 103 MEQ/L (98-107); GLOMERULAR FILTRATION RATE 110 ML/MIN (>89); MAGNESIUM 2.4 MG/DL (1.5-2.5); POTASSIUM 4.5 MEQ/L (3.5-5.1); SODIUM (NA) 138 MEQ/L (136-145)
[2016-11-17 04:55] LABS: ALT (GPT) 22 U/L (12-78)
[2016-11-17 04:56] LABS: ALKALINE PHOSPHATASE 142 U/L (45-117); BANDS 13 % (0-6); NEUTROPHIL # MANUAL DIFF 47.5 TH/MM3 (1.8-7.7); POLYS (SEG NEUTROPHILS) 84 % (16-70); TOTAL BILIRUBIN ADULT 1.1 MG/DL (0.2-1.0); WBC DIFF SAMPLE 100
[2016-11-17 04:57] LABS: PLATELET ESTIMATE SMEAR NORMAL (NORMAL); PLATELET MORPHOLOGY NORMAL (NORMAL); SCAN/DIFF FINAL DIFF MANUAL
[2016-11-17] MEDS: METOCLOPRAMIDE HCL 10 MG/2 ML VIAL IV SCH ×3 (05:34→21:50)
[2016-11-17] MEDS: HYDROCORTISONE SOD SUCCINATE 100 MG VIAL IV PUSH SCH ×3 (05:34→21:51)
[2016-11-17 05:58] LABS: BLOOD GAS BASE EXCESS -0.8 mmol/L (-2-2); BLOOD GAS HCO3 24 mmol/L (22-26); BLOOD GAS METHEMOGLOBIN 1.2 % (0-2); BLOOD GAS O2 HGB SATURATION 97 % (90-100); BLOOD GAS OXYGEN CONTENT 14.6 Vol % (12.0-20.0); BLOOD GAS PCO2 42 mmHg (38-42); BLOOD GAS PO2 158 mmHg (61-120); BLOOD GAS TOTAL HGB 10.5 G/DL (12.0-16.0); TEMP CORR TO 98.6
[2016-11-17 05:59] LABS: CRITICAL VALUE NO; FIO2 65 %; OXYGEN DEVICE VENTILATOR; VENT SETTINGS SEE COMMENTS
[2016-11-17 06:00] LABS: DRAW SITE ART LINE; STAT NO
[2016-11-17] MEDS: INSULIN ASPART SUPPLEMENTAL SCALE SQ SCH ×4 (06:41→21:00)
[2016-11-17] MEDS: EPOPROSTENOL NEB SOLUTION 50 NG/KG/MIN 100 ML NEB SCH ×6 (08:36→21:55)
[2016-11-17] MEDS: MULTIVITAMIN INJ 10 ML, THIAMINE INJ 100 MG, FOLIC ACID INJ 1 MG in SODIUM CHLORID 0.9%... IV SCH (08:37)
[2016-11-17] MEDS: PANTOPRAZOLE SODIUM 40 MG VIAL IV SCH ×2 (08:38→21:49)
[2016-11-17] MEDS: SODIUM CHLORIDE 0.9% FLUSH 10 ML FLUSH IV FLUSH SCH ×2 (08:39→21:49)
[2016-11-17] MEDS: SODIUM CHLORIDE 0.9% FLUSH 10 ML FLUSH IVF SCH (08:40)
[2016-11-17] MEDS: CHLORHEXIDINE 0.12% (ORAL KIT) 15 ML CUP MT SCH ×2 (08:41→21:49)
[2016-11-17] MEDS: POLYETHYLENE GLYCOL 17 GM PKG PO SCH ×2 (09:00→21:50)
[2016-11-17] MEDS: DOCUSATE SODIUM 50 MG/SENNA 8.6 MG TAB PO SCH ×2 (09:00→21:00)
--- NOTE | 2016-11-17 09:57 | HHI.PR ---
Subjective Remarks Patient was intubated last night for acute hypoxemic resp failure and a right chest tube was placed for right hydroPTX in addition patient underwent bronch with BAL ( mucous plugs b/l suctioned to clear). He is sedated with Diprivan, Fentanyl. Patient is also on Neosyn, Vasopressin and Flolan. Objective Vital Signs Vital Signs Date Time Temp Pulse Resp B/P Pulse Ox O2 Delivery O2 Flow Rate FiO2 11/17/16 07:36 97 40 11/17/16 06:02 99 45 11/17/16 06:00 71 11/17/16 04:27 98 65 11/17/16 04:00 65 11/17/16 04:00 97.6 69 20 114/56 96 112/42 11/17/16 04:00 71 11/17/16 02:00 69 11/17/16 01:13 99 85 11/17/16 00:00 98.8 74 20 112/50 97 117/43 11/17/16 00:00 74 11/17/16 00:00 100 11/16/16 22:44 97 100 11/16/16 22:00 74 11/16/16 21:24 95 100 11/16/16 20:50 95 100 11/16/16 20:27 96 100 11/16/16 20:00 98.6 81 25 114/58 96 11/16/16 20:00 81 11/16/16 20:00 100 11/16/16 18:00 81 11/16/16 17:33 98 100 11/16/16 16:35 100 11/16/16 16:00 97.2 101 25 150/75 93 11/16/16 16:00 101 11/16/16 14:00 92 11/16/16 12:00 101 11/16/16 12:00 97.8 101 40 153/66 95 11/16/16 10:00 96 I/O 11/16/16 11/16/16 11/16/16 11/17/16 11/17/16 11/17/16 07:00 15:00 23:00 07:00 15:00 23:00 Intake Total 2483 ml 2652 ml 2345 ml Output Total 350 ml 843 ml 698 ml Balance 2133 ml 1809 ml 1647 ml Intake Oral 240 ml 120 ml IV Total 2243 ml 2532 ml 2345 ml Output Urine Total 350 ml 843 ml 550 ml Chest Tube Drainage Total 148 ml # Bowel Movements 0 0 Result Diagram: 11/17/16 0330 11/17/16 0330 Other Results Laboratory Tests Test 11/16/16 11/16/16 11/16/16 11/16/16 17:46 18:30 20:00 22:00 Blood Gas Puncture Site LT RADIAL LT RADIAL Blood Gas Patient Temperature 98.6 98.6 Blood Gas HCO3 26 mmol/L 26 mmol/L Blood Gas Base Excess -0.1 mmol/L -0.3 mmol/L Blood Gas Oxygen Saturation 91 % 97 % Arterial Blood pH 7.25 7.29 Arterial Blood Partial 62 mmHg 55 mmHg Pressure CO2 Arterial Blood Partial 86 mmHg 168 mmHg Pressure O2 Arterial Blood Oxygen Content 13.9 Vol % 14.7 Vol % Arterial Blood 1.2 % 1.1 % Carboxyhemoglobin Arterial Blood Methemoglobin 1.3 % 1.1 % Blood Gas Hemoglobin 10.8 G/DL 10.6 G/DL Oxygen Delivery Device VENTILATOR VENTILATOR Blood Gas Ventilator Setting SEE COMMENTS SEE COMMENTS Blood Gas Inspired Oxygen 100 % 100 % Urine Color YELLOW Urine Turbidity HAZY Urine pH 6.0 Urine Specific [place] 1.026 Urine Protein 30 mg/dL Urine Glucose (UA) NEG mg/dL Urine Ketones NEG mg/dL Urine Occult Blood NEG Urine Nitrite NEG Urine Bilirubin NEG Urine Urobilinogen 2.0 MG/DL Urine Leukocyte Esterase NEG Urine RBC 1 /hpf Urine WBC 6 /hpf Urine Squamous Epithelial <1 /hpf Cells Urine Granular Casts 3 /lpf Urine White Blood Cell Casts 1 /lpf Urine Mucus FEW /lpf Microscopic Urinalysis Comment CULT NOT INDICATED Bronchoalveolar Lavage WBC 422 /MM3 Bronchoalveolar Lavage RBC 56 /MM3 Bronchoalveolar Lavage 94 % Neutrophils Bronchoalveolar Lavage 4 % Lymphocytes Bronchoalveolar Lavage 2 % Histiocytes Lavage Fluid Total Volume 20.0 ML Lavage Fluid Total WBC Count 5762996.000 MILLION Test 11/17/16 11/17/16 03:30 05:46 White Blood Count 49.0 TH/MM3 Red Blood Count 3.39 MIL/MM3 Hemoglobin 10.2 GM/DL Hematocrit 31.9 % Mean Corpuscular Volume 94.2 FL Mean Corpuscular Hemoglobin 30.2 PG Mean Corpuscular Hemoglobin 32.1 % Concent Red Cell Distribution Width 14.4 % Platelet Count 340 TH/MM3 Mean Platelet Volume 7.2 FL Neutrophils (%) (Auto) 94.9 % Lymphocytes (%) (Auto) 2.1 % Monocytes (%) (Auto) 2.8 % Eosinophils (%) (Auto) 0.1 % Basophils (%) (Auto) 0.1 % Neutrophils # (Auto) 46.4 TH/MM3 Lymphocytes # (Auto) 1.0 TH/MM3 Monocytes # (Auto) 1.4 TH/MM3 Eosinophils # (Auto) 0.1 TH/MM3 Basophils # (Auto) 0.1 TH/MM3 CBC Comment AUTO DIFF Differential Total Cells 100 Counted Neutrophils % (Manual) 84 % Band Neutrophils % 13 % Lymphocytes % 1 % Monocytes % 2 % Neutrophils # (Manual) 47.5 TH/MM3 Differential Comment FINAL DIFF MANUAL Platelet Estimate NORMAL Platelet Morphology Comment NORMAL Red Cell Morphology Comment NORMAL Sodium Level 138 MEQ/L Potassium Level 4.5 MEQ/L Chloride Level 103 MEQ/L Carbon Dioxide Level 26.1 MEQ/L Anion Gap 9 MEQ/L Blood Urea Nitrogen 24 MG/DL Creatinine 0.74 MG/DL Estimat Glomerular Filtration 110 ML/MIN Rate Random Glucose 146 MG/DL Lactic Acid Level 1.2 mmol/L Calcium Level 8.2 MG/DL Phosphorus Level 4.1 MG/DL Magnesium Level 2.4 MG/DL Total Bilirubin 1.1 MG/DL Aspartate Amino Transf 22 U/L (AST/SGOT) Alanine Aminotransferase 22 U/L (ALT/SGPT) Alkaline Phosphatase 142 U/L Total Protein 6.1 GM/DL Albumin 1.2 GM/DL Blood Gas Puncture Site ART LINE Blood Gas Patient Temperature 98.6 Blood Gas HCO3 24 mmol/L Blood Gas Base Excess -0.8 mmol/L Blood Gas Oxygen Saturation 97 % Arterial Blood pH 7.37 Arterial Blood Partial 42 mmHg Pressure CO2 Arterial Blood Partial 158 mmHg Pressure O2 Arterial Blood Oxygen Content 14.6 Vol % Arterial Blood 1.0 % Carboxyhemoglobin Arterial Blood Methemoglobin 1.2 % Blood Gas Hemoglobin 10.5 G/DL Oxygen Delivery Device VENTILATOR Blood Gas Ventilator Setting SEE COMMENTS Blood Gas Inspired Oxygen 65 % Objective Remarks GENERAL: Patient is 56 yo critically ill intubated , sedated and on pressors. SKIN: Warm and dry. HEAD: Normocephalic. EYES: No scleral icterus. No injection or drainage. NECK: Supple, trachea midline. No JVD or lymphadenopathy. CARDIOVASCULAR: Regular rate and rhythm without murmurs, gallops, or rubs. RESPIRATORY: Breath sounds equal bilaterally. No accessory muscle use. GASTROINTESTINAL: Abdomen soft, non-tender, nondistended. MUSCULOSKELETAL: No cyanosis, or edema. Neuro: Sedated and intubated A/P Assessment and Plan 1VDRF 2)Septic shock 3)Staph Aureus bacteremia 4)Empyema 6)Endocarditis involving AV 7)Leucocytosis 8)Cavitary pulm masses 2nd staph Aureus 9)Right hydroPTX PLAN: Continue with vent support keep sat >92% Bronchodilators, ICU vent bundle, on stress dose steroids- HC 100mg IV Q8 On PRVC/AC 20/520/1.1010, 40% On Flolan nebs ( 30,0000 ng/ml) 8ml/hr s/p bronch with BAL and right chest tube placement 11/16- Monitor chest tube drainage Continue with pressors ( Neosyn, Vaso) monitor HR and BP keep MAP>65mmHg Abx per ID ( On Ancef, Zosyn, Gent)monitor for signs of infections ( Fever, WBC ) Follow up on BAL results/cx CTS is following- no intervention at this time. Continue treatment plan. Poor prognosis Noam Calhoun MD Nov 17, 2016 09:57
--- NOTE | 2016-11-17 10:50 | RADRPT ---
EXAM DATE/TIME: 11/17/2016 10:39 [facility] COMPARISON: CT BRAIN W/O CONTRAST, November 13, 2016, 15:46. INDICATIONS : Altered mental status. RADIATION DOSE: 51.98 CTDIvol (mGy) MEDICAL HISTORY : Sepsis. Pneumthorax, weight loss, endocarditis. SURGICAL HISTORY : None. ENCOUNTER: Initial ACUITY: 2 days PAIN SCALE: Non-responsive LOCATION: cranial TECHNIQUE: Multiple contiguous axial images were obtained of the head. Using automated exposure control and adj ustment of the mA and/or kV according to patient size, radiation dose was kept as low as reasonably a chievable to obtain optimal diagnostic quality images. DICOM format image data is available electro nically for review and comparison. FINDINGS: No hemorrhage or mass. Stable low attenuation focus left frontal periventricular white matter consist ent with remote infarct. No signs of acute infarct or fracture. CONCLUSION: No significant change has occurred. Deven Urrutia MD on November 17, 2016 at 10:47 Board Certified Radiologist. This report was verified electronically.
--- NOTE | 2016-11-17 11:45 | HHI.CCPN ---
Subjective Remarks/Hospital Course 56-year-old male is brought to the emergency department by EMS for evaluation of generalized weakness, confusion for about 2 weeks, and also increasing shortness of breath. His oxygen saturation was 88% on room air. EMS administered breathing treatments and Solu-Medrol 125 mg 1 and placed him on nasal cannula. Patient states that he had been sick for almost 10 days, but he is a poor historian. He had a productive cough, but reports no hematemesis or weight loss. He states that it was his neighbor who made him called EMS. He has no past medical history and last time had seen a doctor was about 15 years ago. He denies any fevers but reports some night sweats and chills. He was tachycardic with a heart rate of 115 bpm, had severe leukocytosis with a white count of 35,000 with 91% neutrophils. CMP shows hyponatremia with a sodium of 126. Lactic acid is 2.4. His Chest x-ray shows large 7.7 x 7.8 cm cavitary right midlung lesion with associated right-sided pleural effusion. Subcentimeter left mid lung pulmonary nodules. Patient received 1 L normal saline bolus and Zosyn 4.5 g and Zithromax 500 mg IV and was placed on TB/ respiratory isolation. He has been being in [facility] 2 years ago increasing his risk of tuberculosis. CT pulmonary angiogram negative for PE but showed multiple cavitary lesions within both lungs with the largest measuring 9.5 cm in the right upper lobe. Moderate size right pleural effusion. I evaluated the patient in the emergency department. Patient appears critically ill in moderate distress mildly tachypneic, sweating. I performed a bedside ultrasound which showed a right effusion which is large. The thoracentesis was performed and 1 L of cloudy dark pleural fluid was removed. Patient will be continued on Zosyn and Levaquin and vancomycin. ID consulted and I discussed with Dr. Steele-she recommended no empiric treatments for TB. 11/14/16: Patient seen and examined complaints of severe epigastric and periumbilical abdominal pain. Patient remains oriented to person. His white count is slightly improved from 35,000-28,9000. Na improved to 136. I have ordered a STAT CT abd/pelvis with IV contrast. Chest x-ray shows reaccumulation of right pleural effusion-fluid chemistries are pending but cell count indicates at least a parapneumonic effusion and patient will need a pigtail chest tube 11/15: Patient pulled his right-sided pigtail catheter out overnight last night. Currently nasal cannula in no acute distress. Afebrile. Continues to have a leukocytosis. 11/16: Currently on room air. Hold out his IVs reportedly overnight last night. Requesting diet. Awake and alert and following commands. Subjective 11/17: Intubated yesterday due to acute hypercapnic respiratory failure. Hypoxic post intubation requiring right chest tube placement, bronchoscopy and Flolan. Bronchoscopy revealed thick mucous plugging at bilateral right and left mainstem which were clear. Improved oxygenation over the past 12 hours. Afebrile. Objective Vital Signs Date Time Temp Pulse Resp B/P Pulse Ox O2 Delivery O2 Flow Rate FiO2 11/17/16 11:13 95 40 11/17/16 06:00 71 11/17/16 04:00 97.6 20 114/56 112/42 11/16/16 08:09 Nasal Cannula 5.00 Intake and Output 11/16/16 11/16/16 11/17/16 08:00 16:00 00:00 Intake Total 2483 ml 2652 ml 1308 ml Output Total 350 ml 843 ml 436 ml Balance 2133 ml 1809 ml 872 ml Result Diagram: 11/17/16 0330 11/17/16 0330 Other Results Microbiology Date/Time Procedure Status Source Growth 11/16/16 22:00 Gram Stain - Final Resulted Bronchial Washings Right Upper Lobe 11/16/16 22:00 Bronchial Culture Resulted Bronchial Washings Right Upper Lobe Pending 11/16/16 22:00 Fungal Smear - Final Resulted Bronchial Washings Right Upper Lobe NO FUNGAL ELEMENTS SEEN. 11/16/16 22:00 Fungal Culture Resulted Bronchial Washings Right Upper Lobe Pending 11/16/16 22:00 Acid Fast Stain Received Bronchial Washings Right Upper Lobe Pending 11/16/16 22:00 Mycobacterial Culture Received Bronchial Washings Right Upper Lobe Pending 11/15/16 21:19 Aerobic Blood Culture - Preliminary Resulted Blood Peripheral NO GROWTH IN 2 DAYS 11/15/16 21:19 Anaerobic Blood Culture - Preliminary Resulted Blood Peripheral NO GROWTH IN 2 DAYS 11/14/16 14:15 Acid Fast Stain - Final Resulted Fluid Pleural Fluid NO ACID FAST BACILLI SEEN 11/14/16 14:15 Mycobacterial Culture Resulted Fluid Pleural Fluid Pending 11/13/16 14:00 Influenza Types A,B Antigen (KAMI) - Final Complete Nasal Washing NEGATIVE FOR FLU A AND B ANTIGEN.... 11/13/16 13:30 Aerobic Blood Culture - Final Complete Blood Peripheral Staphylococcus Aureus 11/13/16 13:30 Anaerobic Blood Culture - Final Complete Staphylococcus Aureus Imaging Last Impressions Head CT 11/17/16599 Signed Impressions: Service Date/Time: Thursday, November 17, 2016 10:39 - CONCLUSION: No significant change has occurred. Deven Urrutia MD Chest X-Ray 11/17/16599 Signed Impressions: Service Date/Time: Thursday, November 17, 2016 03:36 - CONCLUSION: Diffuse airspace disease a large cavity in the right midlung zone is unchanged. Tubes and catheter are in good position. Sawyer Robertson MD Chest CT 11/16/16 0000 Signed Impressions: Service Date/Time: Wednesday, November 16, 2016 20:36 - CONCLUSION: 1. New right chest tube in the posterior superior right pleural space. There continues to be a moderate right pleural effusion primarily seen at the base. Some degree of loculation may be present inferiorly. The effusion does not layer posteriorly. There are scattered punctate areas of air within the pleural space inferiorly on the right. There is a solitary small area of air within the mild left pleural effusion. 2. Numerous irregular masses seen throughout both lungs some which are cavitary. These are nonspecific. Inflammatory masses needs be suspected. The multiplicity raises possibility of septic emboli. Agustin Price MD Abdomen X-Ray 11/15/16599 Signed Impressions: Service Date/Time: Tuesday, November 15, 2016 03:07 - CONCLUSION: Probable mild ileus involving loops of bowel on the left side. Reba Banerjee MD Abdomen/Pelvis CT 11/14/16 0000 Signed Impressions: Service Date/Time: October 09:55 - CONCLUSION: 1. Multiple loops of fluid-filled small bowel which are larger in caliber in comparison to yesterday's examination although not enlarged by size criteria. This may reflect mild enteritis versus developing mild adynamic ileus. 2. Persistent luminal narrowing at the gastroduodenal junction without definite focal mass. This is of uncertain clinical significance and likely reflects gastric contraction. Gastric mass/metastatic disease is not very likely based on appearance although it cannot be excluded. 3. 2 cm ill-defined hypodense lesion in the left renal mid pole with indeterminate density. Differential considerations include complex cyst versus metastatic disease in this patient with apparent diffuse metastatic disease in the chest. 4. Redemonstration of multiple bilateral cavitary masses at the lung bases with loculated right pleural effusion. Elder Long MD CT Angiography 11/13/16 1328 Signed Impressions: Service Date/Time: Friday, November 13, 2016 15:50 - CONCLUSION: 1. Multiple cavitary lesions within both lungs with the largest measuring 9.5 cm in the right upper lobe. Differential diagnosis includes infectious and neoplastic etiologies. 2. Moderate sized right pleural effusion with adjacent compressive atelectasis and/or infiltrate. 3. Cardiomegaly and coronary artery calcifications. 4. Subcarinal mediastinal lymphadenopathy. 5. Degenerative changes throughout the thoracic spine. Jed Ponce MD Objective Remarks GENERAL: 86-year-old male, critically ill currently orotracheally intubated SKIN: Warm and dry. Scattered skin lesions erythematous predominantly left lower extremity HEAD: Normocephalic and atraumatic. EYES: No injection, drainage. Pupils equally round and reactive around 3 Diego 's bilaterally 2 mm. ENT: No nasal drainage noted. Oropharynx is clear. NECK: Supple. No JVD or thyromegaly or lymphadenopathy. Left IJ is clean dry and intact CARDIOVASCULAR: Tachycardic, RR. S1, S2. No S4. Surprisingly aortic regurgitation murmur not appreciated. RESPIRATORY: Diminished breath sounds right lower lobe. Bilateral mild expiratory wheezing and few crackles. Right chest tube is clean dry and intact. GASTROINTESTINAL: Abdomen is soft, no rebound or guarding on examination. Hypoactive bowel sounds are appreciated MUSCULOSKELETAL: Mild swelling of bilateral ankles. Multiple erythematous raised lesions on bilateral lower extremity predominantly left lower leg NEUROLOGICAL: Currently sedated on the ventilator propofol and fentanyl ventilator synchrony. Prior to intubation, moving all 4 extremity spontaneously interactive.. Urinary Catheter: Yes Assessment to: Continue Santana insert reason: Prolonged Immobilization Vascular Central Line Catheter: Yes Assessment to: Continue Date of Insertion: Nov 16, 2016 Line: Central Venous Catheter Side: Left Location: Internal, Jugular A/P Assessment and Plan NEURO/PSYCH: Metabolic encephalopathy Propofol at 25 mics grams per kilogram minutes//fentanyl 25 mics grams an hour drips for sedation/analgesia while intubated Goal of RA SS -[address] head 11/17 revealed no acute intracranial findings currently no signs of gross embolic events RESP: Bilateral cavitary lung lesions/most likely cavitating pneumonia from staph aureus Daily respiratory failure Large right loculated pleural effusion/empyema PRVC 20/520/1.05/28/39 Ventilator bundle Duo nebs every 4 hours with albuterol nebs every 2 hours. Breakthrough Flolan currently at 50 Right-sided chest tube #28 Serbian with 1 48 cc balta -20 cm H2O. - Right thoracentesis with 1 L cloudy yellow fluid removed, fluid cell studies WBC 2,600, - Patient status post pigtail catheter placement 11/14, 445 cc prior pulled out 11/15. Evaluated by Dr. Samuels/CT surgery. Per his recommendations, No indication for decortication at this time however will re-ask evaluation in a.m. on light of worsening status CV: Sinus tachycardia Aortic valve endocarditis Atrial fibrillation with RVR early normal sinus rhythm Elevated troponin - likely rate dependent Currently on Javed-Synephrine at 300 mics grams per minute/vasopressin 0.04 units per minute and Solu-Cortef 100 mg IV every 8 hours to maintain MAP> 65 Check CVP - Normal saline at 84 cc an hour 2-D echocardiogram revealed EF 55-60%. Moderate AR. CHANDNI revealed 17 mm x 17 millimeter mobile mass on aortic valve - CT surgery consult. Recommendations no intervention at this time and will re- asked to evaluate in a.m. Started on Cardizem drip and 11/15 today comes RVR.. In the meantime will hold oral Cardizem 30 mg 4 times a day. And Lopressor 5 mill grams IV every 4 hours while on vasopressors. GI: Acute abdominal pain - resolving Hypoalbuminemia Start tube feeding with Glucerna 1.5 goal 55 cc an hour. Dietary consultation IV Protonix. Chinyere-Colace and MiraLAX for bowel regimen Reglan for bowel motility - CT of the abdomen pelvis with IV contrast revealed possible ileus., Gastric contraction at gastric duodenal junction. 2 mm renal cyst. - AX-ray 11/15 revealed improving mild ileus. GI following. Okay for diet. A possible EGD and colonoscopy in future : - Monitor renal function closely. Fluid resuscitation as above ID: Severe sepsis Multilobar cavitating pneumonia secondary staph aureus Staph aureus empyema - IV vancomycin, pharmacy to dose. Zosyn 4.5 g every 6 hours, discontinued yesterday 11/15 Currently on Ancef day #3 per ID Pertinent cultures 11/13 - blood cultures 2 - staph aureus 11/13 and 11/14- pleural fluid- staph aureus 11/14- sputum- staph aureus 11/15 - blood cultures 2 - pending 11/16 - Broch samples all pending Pansensitive. Infectious disease following. HEME: Leukocytosis Normocytic anemia - Monitor CBC, CMP, coags Noticed white cell count has increased overnight. To 50,000 ENDO: Hyponatremia - resolved - Hyponatremia may be secondary to SIADH from pneumonia versus malignancy - Electrolyte Replacement per protocol TSH 0.6. PROPH: - Bilateral lower extremity SCDs. Lovenox, IV Protonix for prophylaxis LINES: - Utilize peripheral IVs, central line if needed Care time 35 minutes. Patient is critically ill requiring aggressive pulmonary intervention with Flolan and titration of vasoactive drips Addendum Patient became more confused, not His Mask. Likely Aspirating. Decision Made to Intubate. Central Line Placed after Discussion with Family friend (Kerrie hobson)[facility] Surrogate by Proxy Josh Saunders MD Nov 17, 2016 11:45
[2016-11-17] MEDS ORDERED: Vancomycin Consult Pharmacy 1 EA OTHER SCH (12:00)
--- NOTE | 2016-11-17 12:03 | HHI.IDPN ---
Note Infectious Disease Note ID Xcover for Chart reviewed. is a 56 y/o CM who presented to the emergency department with a 2-week history of generalized weakness and feeling unwell. He was noted to have low oxygen saturation. He reported that he had productive cough over the past couple of weeks and was experiencing shortness of breath. Patient is AAOx3 and reports to me that he has never had prior endocarditis before. 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 He denies any injuries. He denies any IVDA or drug abuse in general. He denies any skin lesions. Upon review of chart it appears patient is being treated for TV endocarditis, septic lung emboli, empyema (s/p pigtail catheter which patient pulled out accidentally). Large vegetation on AV and moderate aortic regurg on CHANDNI. Culture of blood 11/14 - Staph aureus (MSSA) Culture of pleural fluid 11/14 - staph aureus. AFB stain negative. Overnight events reviewed. Intubated overnight. CT placed on Right side. Central line placed in groin. S/p Bronchoscopy and cultures sent. No fevers No rash No diarrhea UO ok Not on pressors. Sedated. ALLERGIES NO KNOWN DRUG ALLERGIES. Current Medications Current Medications Current Medications Medications (Trade) Dose Ordered Sig/Gaye Route Start Time Stop Time Status Last Admin (NS Flush) 2 ml UNSCH PRN IV FLUSH 11/13/16 17:15 (NS Flush) 2 ml BID IV FLUSH 11/13/16 21:00 11/17/16 08:39 (Lovenox Inj) 40 mg Q24H SQ 11/13/16 20:00 Hold 11/15/16 21:57 Miscellaneous Information 1 Q361D XX 11/13/16 17:15 (Chlorhexidine 2% Cloth) 3 pack Taper DAILY@04 TOP 11/14/16 04:00 11/10/17 03:59 11/17/16 03:03 (Chlorhexidine 2% Cloth) 3 pack UNSCH PRN TOP 11/13/16 17:15 (Chinyere-Colace) 1 tab BID PO 11/13/16 21:00 11/17/16 09:00 (Zofran Inj) 4 mg Q6H PRN IV PUSH 11/14/16 06:30 11/14/16 06:52 (Morphine Inj) 2 mg Q3H PRN IV PUSH 11/14/16 09:00 11/14/16 12:32 (Protonix Inj) 40 mg BID IV 11/14/16 21:00 11/17/16 08:38 Polyethylene Glycol 17 gm 17 gm BID PO 11/14/16 21:00 11/17/16 09:00 (Ancef 2 Gm Premix) 50 ml @ 100 mls/hr Q8H IV 11/15/16 17:00 11/17/16 08:38 (Restoril) 15 mg HS PRN PO 11/15/16 21:00 (Reglan Inj) 10 mg Q8HR IV 11/16/16 14:00 11/17/16 05:34 Metoprolol Tartrate 5 mg 5 mg Q4HR IV PUSH 11/16/16 12:00 Hold 11/16/16 11:57 Multivitamins 10 ml/Thiamine HCl 100 mg/Folic Acid 1 mg/Sodium Chloride 511.2 ml @ 125 mls/hr DAILY IV 11/16/16 09:00 11/19/16 08:59 11/17/16 08:37 Pharmacy Profile Note 0 ml @ 0 mls/hr UNSCH OTHER 11/16/16 11:45 Piperacillin Sod/ Tazobactam Sod 100 ml @ 200 mls/hr Q8H IV 11/16/16 12:00 11/17/16 03:28 (Gentamicin 80 Mg Premix) 100 ml @ 200 mls/hr Q8H IV 11/16/16 16:00 11/17/16 08:39 Miscellaneous Information SPECIFIC LAB TO BE [facility]... ONCE ONCE .XX 11/17/16 15:30 11/17/16 15:31 Chlorhexidine Gluconate 15 ml 15 ml BID@08,20 MT 11/16/16 20:00 11/17/16 08:41 Propofol 100 ml @ 0 mls/hr TITRATE IV 11/16/16 16:30 11/17/16 11:28 (fentaNYL DRIP) 250 ml @ 0 mls/hr TITRATE IV 11/16/16 16:30 11/17/16 03:28 (NS Flush) DAILY IVF 11/17/16 09:00 11/17/16 08:40 (NS Flush) UNSCH PRN IVF 11/16/16 17:15 (Cardizem) 30 mg QID NG 11/16/16 18:00 Hold Terbutaline Sulfate 1 mg 1 mg UNSCH PRN SQ 11/16/16 17:15 Phenylephrine HCl 160 mg/Dextrose 500 ml @ 0 mls/hr TITRATE IV 11/16/16 18:00 11/16/16 23:05 Sodium Chloride 1,000 ml @ 100 mls/hr Q10H IV 11/16/16 17:15 11/17/16 03:03 Epoprostenol Sodium 100 ml/ Sodium Chloride 100 ml @ 8 mls/hr Q8H NEB 11/16/16 20:00 11/17/16 08:36 (Pitressin Inj/ D5W 100 ml Inj) 100 ml @ 1.5 mls/hr Q24H IV 11/16/16 21:57 11/16/16 23:05 (SoluCORTEF INJ) 100 mg Q8HR IV PUSH 11/16/16 22:00 11/17/16 05:34 (Tears Naturale Opth Soln) 1 drop Q8HR EACH EYE 11/17/16 14:00 OBJECTIVE: Vital Signs Date Time Temp Pulse Resp B/P Pulse Ox O2 Delivery O2 Flow Rate FiO2 11/17/16 11:13 95 40 11/17/16 11:00 100 100 11/17/16 07:36 97 40 11/17/16 06:02 99 45 11/17/16 06:00 71 11/17/16 04:27 98 65 11/17/16 04:00 65 11/17/16 04:00 97.6 69 20 114/56 96 112/42 11/17/16 04:00 71 11/17/16 02:00 69 11/17/16 01:13 99 85 11/17/16 00:00 98.8 74 20 112/50 97 117/43 11/17/16 00:00 74 11/17/16 00:00 100 11/16/16 22:44 97 100 11/16/16 22:00 74 11/16/16 21:24 95 100 11/16/16 20:50 95 100 11/16/16 20:27 96 100 11/16/16 20:00 98.6 81 25 114/58 96 11/16/16 20:00 81 11/16/16 20:00 100 11/16/16 18:00 81 11/16/16 17:33 98 100 11/16/16 16:35 100 11/16/16 16:00 97.2 101 25 150/75 93 11/16/16 16:00 101 11/16/16 14:00 92 11/16/16 12:00 101 11/16/16 12:00 97.8 101 40 153/66 95 11/16/16 11/16/16 11/17/16 15:00 23:00 07:00 Intake Total 2652 ml 2345 ml Output Total 843 ml 698 ml Balance 1809 ml 1647 ml Intake Oral 120 ml IV Total 2532 ml 2345 ml Output Urine Total 843 ml 550 ml Chest Tube Drainage Total 148 ml # Bowel Movements 0 0 Laboratory Tests Laboratory Tests Test 11/14/16 11/14/16 11/15/16 11/15/16 12:37 14:15 06:17 06:48 Lactic Acid Level 2.5 mmol/L Amylase Level 78 U/L Lipase 206 U/L Pleural Fluid WBC 95647 /MM3 Pleural Fluid RBC 24788 /MM3 Pleural Fluid Neutrophils 97 % Pleural Fluid Lymphocytes 2 % Pleural Fluid Monocytes 1 % Body Fluid LDH Source PLEURAL Body Fluid Lactate 1881 U/L Dehydrogenase Body Fluid Amylase Source PLEURAL Body Fluid Amylase 24 U/L Sodium Level 134 MEQ/L Potassium Level 3.9 MEQ/L Chloride Level 96 MEQ/L Carbon Dioxide Level 32.3 MEQ/L Anion Gap 6 MEQ/L Blood Urea Nitrogen 17 MG/DL Creatinine 0.63 MG/DL Estimat Glomerular Filtration 132 ML/MIN Rate Random Glucose 127 MG/DL Calcium Level 8.0 MG/DL Magnesium Level 2.5 MG/DL Total Bilirubin 0.8 MG/DL Aspartate Amino Transf 33 U/L (AST/SGOT) Alanine Aminotransferase 32 U/L (ALT/SGPT) Alkaline Phosphatase 120 U/L Total Protein 6.7 GM/DL Albumin 1.4 GM/DL Thyroid Stimulating Hormone 0.646 uIU/ML 3rd Gen White Blood Count 25.8 TH/MM3 Red Blood Count 3.95 MIL/MM3 Hemoglobin 11.8 GM/DL Hematocrit 36.9 % Mean Corpuscular Volume 93.5 FL Mean Corpuscular Hemoglobin 29.8 PG Mean Corpuscular Hemoglobin 31.8 % Concent Red Cell Distribution Width 14.3 % Platelet Count 310 TH/MM3 Mean Platelet Volume 6.9 FL Neutrophils (%) (Auto) 91.3 % Lymphocytes (%) (Auto) 2.6 % Monocytes (%) (Auto) 5.8 % Eosinophils (%) (Auto) 0.1 % Basophils (%) (Auto) 0.2 % Neutrophils # (Auto) 23.6 TH/MM3 Lymphocytes # (Auto) 0.7 TH/MM3 Monocytes # (Auto) 1.5 TH/MM3 Eosinophils # (Auto) 0.0 TH/MM3 Basophils # (Auto) 0.1 TH/MM3 CBC Comment AUTO DIFF Differential Total Cells 100 Counted Neutrophils % (Manual) 79 % Band Neutrophils % 15 % Lymphocytes % 2 % Monocytes % 4 % Neutrophils # (Manual) 24.3 TH/MM3 Differential Comment FINAL DIFF MANUAL Platelet Estimate NORMAL Platelet Morphology Comment NORMAL Test 11/15/16 11/16/16 11/16/16 11/16/16 21:19 06:01 17:46 18:30 Sodium Level 135 MEQ/L 134 MEQ/L Potassium Level 3.9 MEQ/L 4.0 MEQ/L Chloride Level 99 MEQ/L 102 MEQ/L Carbon Dioxide Level 28.1 MEQ/L 24.9 MEQ/L Anion Gap 8 MEQ/L 7 MEQ/L Blood Urea Nitrogen 13 MG/DL 20 MG/DL Creatinine 0.54 MG/DL 0.61 MG/DL Estimat Glomerular Filtration 158 ML/MIN 137 ML/MIN Rate Random Glucose 108 MG/DL 124 MG/DL Calcium Level 8.1 MG/DL 8.1 MG/DL Phosphorus Level 3.3 MG/DL 3.3 MG/DL Magnesium Level 2.4 MG/DL 2.3 MG/DL Troponin I 0.20 NG/ML White Blood Count 39.4 TH/MM3 Red Blood Count 3.56 MIL/MM3 Hemoglobin 10.7 GM/DL Hematocrit 33.4 % Mean Corpuscular Volume 93.9 FL Mean Corpuscular Hemoglobin 30.0 PG Mean Corpuscular Hemoglobin 32.0 % Concent Red Cell Distribution Width 14.5 % Platelet Count 321 TH/MM3 Mean Platelet Volume 7.6 FL Neutrophils (%) (Auto) 92.4 % Lymphocytes (%) (Auto) 3.0 % Monocytes (%) (Auto) 4.3 % Eosinophils (%) (Auto) 0.1 % Basophils (%) (Auto) 0.2 % Neutrophils # (Auto) 36.4 TH/MM3 Lymphocytes # (Auto) 1.2 TH/MM3 Monocytes # (Auto) 1.7 TH/MM3 Eosinophils # (Auto) 0.0 TH/MM3 Basophils # (Auto) 0.1 TH/MM3 CBC Comment AUTO DIFF Differential Total Cells 100 Counted Neutrophils % (Manual) 70 % Band Neutrophils % 13 % Lymphocytes % 7 % Monocytes % 6 % Neutrophils # (Manual) 34.3 TH/MM3 Myelocytes 4 % Differential Comment FINAL DIFF MANUAL Toxic Granulation 1+ Toxic Vacuolation PRESENT Platelet Estimate NORMAL Platelet Morphology Comment NORMAL Blood Gas Puncture Site LT RADIAL LT RADIAL Blood Gas Patient Temperature 98.6 98.6 Blood Gas HCO3 26 mmol/L 26 mmol/L Blood Gas Base Excess -0.1 mmol/L -0.3 mmol/L Blood Gas Oxygen Saturation 91 % 97 % Arterial Blood pH 7.25 7.29 Arterial Blood Partial 62 mmHg 55 mmHg Pressure CO2 Arterial Blood Partial 86 mmHg 168 mmHg Pressure O2 Arterial Blood Oxygen Content 13.9 Vol % 14.7 Vol % Arterial Blood 1.2 % 1.1 % Carboxyhemoglobin Arterial Blood Methemoglobin 1.3 % 1.1 % Blood Gas Hemoglobin 10.8 G/DL 10.6 G/DL Oxygen Delivery Device VENTILATOR VENTILATOR Blood Gas Ventilator Setting SEE COMMENTS SEE COMMENTS Blood Gas Inspired Oxygen 100 % 100 % Test 11/16/16 11/16/16 11/17/16 11/17/16 20:00 22:00 03:30 05:46 Urine Color YELLOW Urine Turbidity HAZY Urine pH 6.0 Urine Specific [place] 1.026 Urine Protein 30 mg/dL Urine Glucose (UA) NEG mg/dL Urine Ketones NEG mg/dL Urine Occult Blood NEG Urine Nitrite NEG Urine Bilirubin NEG Urine Urobilinogen 2.0 MG/DL Urine Leukocyte Esterase NEG Urine RBC 1 /hpf Urine WBC 6 /hpf Urine Squamous Epithelial <1 /hpf Cells Urine Granular Casts 3 /lpf Urine White Blood Cell Casts 1 /lpf Urine Mucus FEW /lpf Microscopic Urinalysis Comment CULT NOT INDICATED Bronchoalveolar Lavage WBC 422 /MM3 Bronchoalveolar Lavage RBC 56 /MM3 Bronchoalveolar Lavage 94 % Neutrophils Bronchoalveolar Lavage 4 % Lymphocytes Bronchoalveolar Lavage 2 % Histiocytes Lavage Fluid Total Volume 20.0 ML Lavage Fluid Total WBC Count 1746543.000 MILLION White Blood Count 49.0 TH/MM3 Red Blood Count 3.39 MIL/MM3 Hemoglobin 10.2 GM/DL Hematocrit 31.9 % Mean Corpuscular Volume 94.2 FL Mean Corpuscular Hemoglobin 30.2 PG Mean Corpuscular Hemoglobin 32.1 % Concent Red Cell Distribution Width 14.4 % Platelet Count 340 TH/MM3 Mean Platelet Volume 7.2 FL Neutrophils (%) (Auto) 94.9 % Lymphocytes (%) (Auto) 2.1 % Monocytes (%) (Auto) 2.8 % Eosinophils (%) (Auto) 0.1 % Basophils (%) (Auto) 0.1 % Neutrophils # (Auto) 46.4 TH/MM3 Lymphocytes # (Auto) 1.0 TH/MM3 Monocytes # (Auto) 1.4 TH/MM3 Eosinophils # (Auto) 0.1 TH/MM3 Basophils # (Auto) 0.1 TH/MM3 CBC Comment AUTO DIFF Differential Total Cells 100 Counted Neutrophils % (Manual) 84 % Band Neutrophils % 13 % Lymphocytes % 1 % Monocytes % 2 % Neutrophils # (Manual) 47.5 TH/MM3 Differential Comment FINAL DIFF MANUAL Platelet Estimate NORMAL Platelet Morphology Comment NORMAL Red Cell Morphology Comment NORMAL Sodium Level 138 MEQ/L Potassium Level 4.5 MEQ/L Chloride Level 103 MEQ/L Carbon Dioxide Level 26.1 MEQ/L Anion Gap 9 MEQ/L Blood Urea Nitrogen 24 MG/DL Creatinine 0.74 MG/DL Estimat Glomerular Filtration 110 ML/MIN Rate Random Glucose 146 MG/DL Lactic Acid Level 1.2 mmol/L Calcium Level 8.2 MG/DL Phosphorus Level 4.1 MG/DL Magnesium Level 2.4 MG/DL Total Bilirubin 1.1 MG/DL Aspartate Amino Transf 22 U/L (AST/SGOT) Alanine Aminotransferase 22 U/L (ALT/SGPT) Alkaline Phosphatase 142 U/L Total Protein 6.1 GM/DL Albumin 1.2 GM/DL Blood Gas Puncture Site ART LINE Blood Gas Patient Temperature 98.6 Blood Gas HCO3 24 mmol/L Blood Gas Base Excess -0.8 mmol/L Blood Gas Oxygen Saturation 97 % Arterial Blood pH 7.37 Arterial Blood Partial 42 mmHg Pressure CO2 Arterial Blood Partial 158 mmHg Pressure O2 Arterial Blood Oxygen Content 14.6 Vol % Arterial Blood 1.0 % Carboxyhemoglobin Arterial Blood Methemoglobin 1.2 % Blood Gas Hemoglobin 10.5 G/DL Oxygen Delivery Device VENTILATOR Blood Gas Ventilator Setting SEE COMMENTS Blood Gas Inspired Oxygen 65 % Laboratory Tests Microbiology Date/Time Procedure Status Source Growth 11/16/16 22:00 Gram Stain - Final Resulted Bronchial Washings Right Upper Lobe 7/1/17 22:00 Bronchial Culture Resulted Bronchial Washings Right Upper Lobe Pending 11/16/16 22:00 Fungal Smear - Final Resulted Bronchial Washings Right Upper Lobe NO FUNGAL ELEMENTS SEEN. 11/16/16 22:00 Fungal Culture Resulted Bronchial Washings Right Upper Lobe Pending 11/16/16 22:00 Acid Fast Stain Received Bronchial Washings Right Upper Lobe Pending 11/16/16 22:00 Mycobacterial Culture Received Bronchial Washings Right Upper Lobe Pending 11/15/16 21:19 Aerobic Blood Culture - Preliminary Resulted Blood Peripheral NO GROWTH IN 2 DAYS 11/15/16 21:19 Anaerobic Blood Culture - Preliminary Resulted Blood Peripheral NO GROWTH IN 2 DAYS 11/14/16 14:15 Acid Fast Stain - Final Resulted Fluid Pleural Fluid NO ACID FAST BACILLI SEEN 11/14/16 14:15 Mycobacterial Culture Resulted Fluid Pleural Fluid Pending 11/13/16 14:00 Influenza Types A,B Antigen ([facility]) - Final Complete Nasal Washing NEGATIVE FOR FLU A AND B ANTIGEN.... 11/13/16 13:30 Aerobic Blood Culture - Final Complete Blood Peripheral Staphylococcus Aureus 11/13/16 13:30 Anaerobic Blood Culture - Final Complete Staphylococcus Aureus Date/Time Procedure Status Source Growth 11/15/16 21:19 Aerobic Blood Culture - Preliminary Resulted Blood Peripheral NO GROWTH IN 1 DAY 11/15/16 21:19 Anaerobic Blood Culture - Preliminary Resulted Blood Peripheral NO GROWTH IN 1 DAY 11/14/16 14:15 Gram Stain - Final Complete Fluid Pleural Fluid 11/14/16 14:15 Body Fluid Culture - Final Complete Staphylococcus Aureus 11/14/16 14:15 Fungal Smear - Final Resulted Fluid Pleural Fluid NO FUNGAL ELEMENTS SEEN. 11/14/16 14:15 Fungal Culture Resulted Fluid Pleural Fluid Pending 11/14/16 14:15 Acid Fast Stain - Final Resulted Fluid Pleural Fluid NO ACID FAST BACILLI SEEN 11/14/16 14:15 Mycobacterial Culture Resulted Fluid Pleural Fluid Pending 11/13/16 14:00 Influenza Types A,B Antigen (KAMI) - Final Complete Nasal Washing NEGATIVE FOR FLU A AND B ANTIGEN.... 11/13/16 13:30 Aerobic Blood Culture - Final Complete Blood Peripheral Staphylococcus Aureus 11/13/16 13:30 Anaerobic Blood Culture - Final Complete Staphylococcus Aureus Last Impressions Last Impressions Head CT 11/17/16 0600 Signed Impressions: Service Date/Time: Thursday, November 17, 2016 10:39 - CONCLUSION: No significant change has occurred. Deven Urrutia MD Chest X-Ray 11/17/16 0600 Signed Impressions: Service Date/Time: Thursday, November 17, 2016 03:36 - CONCLUSION: Diffuse airspace disease a large cavity in the right midlung zone is unchanged. Tubes and catheter are in good position. Sawyer Robertson MD Chest CT 11/16/16 0000 Signed Impressions: Service Date/Time: Wednesday, November 16, 2016 20:36 - CONCLUSION: 1. New right chest tube in the posterior superior right pleural space. There continues to be a moderate right pleural effusion primarily seen at the base. Some degree of loculation may be present inferiorly. The effusion does not layer posteriorly. There are scattered punctate areas of air within the pleural space inferiorly on the right. There is a solitary small area of air within the mild left pleural effusion. 2. Numerous irregular masses seen throughout both lungs some which are cavitary. These are nonspecific. Inflammatory masses needs be suspected. The multiplicity raises possibility of septic emboli. Agustin Price MD Abdomen X-Ray 11/15/16 0600 Signed Impressions: Service Date/Time: Tuesday, November 15, 2016 03:07 - CONCLUSION: Probable mild ileus involving loops of bowel on the left side. Reba Banerjee MD Abdomen/Pelvis CT 11/14/16 0000 Signed Impressions: Service Date/Time: October 09:55 - CONCLUSION: 1. Multiple loops of fluid-filled small bowel which are larger in caliber in comparison to yesterday's examination although not enlarged by size criteria. This may reflect mild enteritis versus developing mild adynamic ileus. 2. Persistent luminal narrowing at the gastroduodenal junction without definite focal mass. This is of uncertain clinical significance and likely reflects gastric contraction. Gastric mass/metastatic disease is not very likely based on appearance although it cannot be excluded. 3. 2 cm ill-defined hypodense lesion in the left renal mid pole with indeterminate density. Differential considerations include complex cyst versus metastatic disease in this patient with apparent diffuse metastatic disease in the chest. 4. Redemonstration of multiple bilateral cavitary masses at the lung bases with loculated right pleural effusion. Elder Long MD CT Angiography 11/13/16 1328 Signed Impressions: Service Date/Time: Sunday, November 13, 2016 15:50 - CONCLUSION: 1. Multiple cavitary lesions within both lungs with the largest measuring 9.5 cm in the right upper lobe. Differential diagnosis includes infectious and neoplastic etiologies. 2. Moderate sized right pleural effusion with adjacent compressive atelectasis and/or infiltrate. 3. Cardiomegaly and coronary artery calcifications. 4. Subcarinal mediastinal lymphadenopathy. 5. Degenerative changes throughout the thoracic spine. Jed Ponce MD Chest CT 11/16/16 0000 Signed Impressions: Service Date/Time: Wednesday, November 16, 2016 10:17 - CONCLUSION: 1. Bilateral effusions, right hydropneumothorax and bilateral cavitary masses greatest in the right upper lobe. 2. Patchy reticulonodular infiltrate and scattered noncalcified lung nodules. Deven Urrutia MD Chest X-Ray 11/15/16 0600 Signed Impressions: Service Date/Time: Tuesday, November 15, 2016 03:03 - CONCLUSION: No appreciable change. Reba Banerjee MD Abdomen X-Ray 11/15/16 0600 Signed Impressions: Service Date/Time: Tuesday, November 15, 2016 03:07 - CONCLUSION: Probable mild ileus involving loops of bowel on the left side. Reba Banerjee MD Abdomen/Pelvis CT 11/14/16 0000 Signed Impressions: Service Date/Time: October 09:55 - CONCLUSION: 1. Multiple loops of fluid-filled small bowel which are larger in caliber in comparison to yesterday's examination although not enlarged by size criteria. This may reflect mild enteritis versus developing mild adynamic ileus. 2. Persistent luminal narrowing at the gastroduodenal junction without definite focal mass. This is of uncertain clinical significance and likely reflects gastric contraction. Gastric mass/metastatic disease is not very likely based on appearance although it cannot be excluded. 3. 2 cm ill-defined hypodense lesion in the left renal mid pole with indeterminate density. Differential considerations include complex cyst versus metastatic disease in this patient with apparent diffuse metastatic disease in the chest. 4. Redemonstration of multiple bilateral cavitary masses at the lung bases with loculated right pleural effusion. Elder Long MD CT Angiography 11/13/16 1328 Signed Impressions: Service Date/Time: Sunday, November 13, 2016 15:50 - CONCLUSION: 1. Multiple cavitary lesions within both lungs with the largest measuring 9.5 cm in the right upper lobe. Differential diagnosis includes infectious and neoplastic etiologies. 2. Moderate sized right pleural effusion with adjacent compressive atelectasis and/or infiltrate. 3. Cardiomegaly and coronary artery calcifications. 4. Subcarinal mediastinal lymphadenopathy. 5. Degenerative changes throughout the thoracic spine. Jed Ponce MD Head CT 11/13/16 1324 Signed Impressions: Service Date/Time: Sunday, November 13, 2016 15:46 - CONCLUSION: 1. No acute intracranial abnormality. Elder Long MD PHYSICAL EXAMINATION GENERAL: Sick appearing, tachypneic, using accessory muscles of respiration. HEENT: Intubated. NECK: Supple without adenopathy. LUNGS: Rhonchi bilateral. using accessory muscles. HEART: Normal S1-S2 without audible murmurs, rubs or gallops. ABDOMEN: Bowel sounds present, soft, no tenderness appreciated. No palpable masses. EXTREMITIES: No clubbing or cyanosis or edema. The distal extremities are cold. No calf tenderness. SKIN: Punctate erythematous lesions at the lower extremities including the left tibia, left foot and right foot which blanches with palpation. Not typically embolic appearing. NEURO: No gross focal findings. No neck stiffness, AAOx3. Moves all 4 extremities. PSYCH: Cooperative. IMPRESSION Sepsis. 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 MSSA bacteremia/sepsis. Cavitary pulmonary lesions: embolic. Acute respiratory failure Pneumonia: MSSA and possible component of aspiration. Acute metabolic encephalopathy: infection related. Skin lesions which potentially could be embolic. Leukocytosis secondary to infection. RECOMMENDATIONS Continue Ancef IV (MSSA bacteremia, endocarditis: definitive treatment for MSSA endocarditis) Continue Genta IV (for synergy given large AV valve, persistent sepsis, increasing leucocytosis) Continue Zosyn IV for PSAE coverage and aspiration pending further eval and culture reports in view of clinical worsening. Start Vanco IV (pending ID of the GP in sputum). Once identified as MSSA may be deescalated. Reconsult CT Surgery to reconsider lung decortication. Patient adamantly denied IVDA prior to being intubated. Source control is essential to control sepsis at this point as antibiotic therapy is optimized. Follow clinically Follow Cultures Monitor white blood cell count. Follow HIV and Hepatitis panel. D.w RN Time spent in excess of 40 mins. Critical thinking, decision making, d/w RN and MD. Reviewed chart, cultures, MAR, interactions, radiology etc. Compared imaging. to resume care in am 11/18/2016. Carline Gallegos MD Nov 17, 2016 12:03
[2016-11-17] MEDS: ARTIFICIAL TEARS OPTH SOLN 15 ML BTL EACH EYE SCH ×2 (13:19→21:50)
--- NOTE | 2016-11-17 13:56 | HHI.GIFU ---
Subjective Remarks Pt sedated on vent, intubated after respiratory failure yesterday, s/p bronch, insertion chest tube (Kristy Sweeney) Objective Vitals I&O Vital Signs Date Time Temp Pulse Resp B/P Pulse Ox O2 Delivery O2 Flow Rate FiO2 11/17/16 11:13 95 40 11/17/16 11:00 100 100 11/17/16 08:00 70 11/17/16 08:00 45 11/17/16 08:00 98.0 71 22 116/43 97 111/41 11/17/16 07:36 97 40 11/17/16 06:02 99 45 11/17/16 06:00 71 11/17/16 04:27 98 65 11/17/16 04:00 65 11/17/16 04:00 97.6 69 20 114/56 96 112/42 11/17/16 04:00 71 11/17/16 02:00 69 11/17/16 01:13 99 85 11/17/16 00:00 98.8 74 20 112/50 97 117/43 11/17/16 00:00 74 11/17/16 00:00 100 11/16/16 22:44 97 100 11/16/16 22:00 74 11/16/16 21:24 95 100 11/16/16 20:50 95 100 11/16/16 20:27 96 100 11/16/16 20:00 98.6 81 25 114/58 96 11/16/16 20:00 81 11/16/16 20:00 100 11/16/16 18:00 81 11/16/16 17:33 98 100 11/16/16 16:35 100 11/16/16 16:00 97.2 101 25 150/75 93 11/16/16 16:00 101 11/16/16 14:00 92 I/O 11/16/16 11/16/16 11/16/16 11/17/16 11/17/16 11/17/16 07:00 15:00 23:00 07:00 15:00 23:00 Intake Total 2483 ml 2652 ml 2345 ml Output Total 350 ml 843 ml 698 ml Balance 2133 ml 1809 ml 1647 ml Intake Oral 240 ml 120 ml IV Total 2243 ml 2532 ml 2345 ml Output Urine Total 350 ml 843 ml 550 ml Chest Tube Drainage Total 148 ml # Bowel Movements 0 0 Laboratory Laboratory Tests Test 11/16/16 11/16/16 11/16/16 11/16/16 17:46 18:30 20:00 22:00 Blood Gas Puncture Site LT RADIAL LT RADIAL Blood Gas Patient Temperature 98.6 98.6 Blood Gas HCO3 26 26 Blood Gas Base Excess -0.1 -0.3 Blood Gas Oxygen Saturation 91 97 Arterial Blood pH 7.25 7.29 Arterial Blood Partial 62 55 Pressure CO2 Arterial Blood Partial 86 168 Pressure O2 Arterial Blood Oxygen Content 13.9 14.7 Arterial Blood 1.2 1.1 Carboxyhemoglobin Arterial Blood Methemoglobin 1.3 1.1 Blood Gas Hemoglobin 10.8 10.6 Oxygen Delivery Device VENTILATOR VENTILATOR Blood Gas Ventilator Setting SEE COMMENTS SEE COMMENTS Blood Gas Inspired Oxygen 100 100 Urine Color YELLOW Urine Turbidity HAZY Urine pH 6.0 Urine Specific [place] 1.026 Urine Protein 30 Urine Glucose (UA) NEG Urine Ketones NEG Urine Occult Blood NEG Urine Nitrite NEG Urine Bilirubin NEG Urine Urobilinogen 2.0 Urine Leukocyte Esterase NEG Urine RBC 1 Urine WBC 6 Urine Squamous Epithelial <1 Cells Urine Granular Casts 3 Urine White Blood Cell Casts 1 Urine Mucus FEW Microscopic Urinalysis Comment CULT NOT INDICATED Bronchoalveolar Lavage WBC 422 Bronchoalveolar Lavage RBC 56 Bronchoalveolar Lavage 94 Neutrophils Bronchoalveolar Lavage 4 Lymphocytes Bronchoalveolar Lavage 2 Histiocytes Lavage Fluid Total Volume 20.0 Lavage Fluid Total WBC Count 5925041.000 Test 11/17/16 11/17/16 03:30 05:46 White Blood Count 49.0 Red Blood Count 3.39 Hemoglobin 10.2 Hematocrit 31.9 Mean Corpuscular Volume 94.2 Mean Corpuscular Hemoglobin 30.2 Mean Corpuscular Hemoglobin 32.1 Concent Red Cell Distribution Width 14.4 Platelet Count 340 Mean Platelet Volume 7.2 Neutrophils (%) (Auto) 94.9 Lymphocytes (%) (Auto) 2.1 Monocytes (%) (Auto) 2.8 Eosinophils (%) (Auto) 0.1 Basophils (%) (Auto) 0.1 Neutrophils # (Auto) 46.4 Lymphocytes # (Auto) 1.0 Monocytes # (Auto) 1.4 Eosinophils # (Auto) 0.1 Basophils # (Auto) 0.1 CBC Comment AUTO DIFF Differential Total Cells 100 Counted Neutrophils % (Manual) 84 Band Neutrophils % 13 Lymphocytes % 1 Monocytes % 2 Neutrophils # (Manual) 47.5 Differential Comment FINAL DIFF MANUAL Platelet Estimate NORMAL Platelet Morphology Comment NORMAL Red Cell Morphology Comment NORMAL Sodium Level 138 Potassium Level 4.5 Chloride Level 103 Carbon Dioxide Level 26.1 Anion Gap 9 Blood Urea Nitrogen 24 Creatinine 0.74 Estimat Glomerular Filtration 110 Rate Random Glucose 146 Lactic Acid Level 1.2 Calcium Level 8.2 Phosphorus Level 4.1 Magnesium Level 2.4 Total Bilirubin 1.1 Aspartate Amino Transf 22 (AST/SGOT) Alanine Aminotransferase 22 (ALT/SGPT) Alkaline Phosphatase 142 Total Protein 6.1 Albumin 1.2 Blood Gas Puncture Site ART LINE Blood Gas Patient Temperature 98.6 Blood Gas HCO3 24 Blood Gas Base Excess -0.8 Blood Gas Oxygen Saturation 97 Arterial Blood pH 7.37 Arterial Blood Partial 42 Pressure CO2 Arterial Blood Partial 158 Pressure O2 Arterial Blood Oxygen Content 14.6 Arterial Blood 1.0 Carboxyhemoglobin Arterial Blood Methemoglobin 1.2 Blood Gas Hemoglobin 10.5 Oxygen Delivery Device VENTILATOR Blood Gas Ventilator Setting SEE COMMENTS Blood Gas Inspired Oxygen 65 Date/Time Procedure Status Source Growth 11/16/16 22:00 Gram Stain - Final Resulted Bronchial Washings Right Upper Lobe 11/16/16 22:00 Bronchial Culture Resulted Bronchial Washings Right Upper Lobe Pending 11/16/16 22:00 Fungal Smear - Final Resulted Bronchial Washings Right Upper Lobe NO FUNGAL ELEMENTS SEEN. 11/16/16 22:00 Fungal Culture Resulted Bronchial Washings Right Upper Lobe Pending 11/16/16 22:00 Acid Fast Stain Received Bronchial Washings Right Upper Lobe Pending 11/16/16 22:00 Mycobacterial Culture Received Bronchial Washings Right Upper Lobe Pending 11/15/16 21:19 Aerobic Blood Culture - Preliminary Resulted Blood Peripheral NO GROWTH IN 2 DAYS 11/15/16 21:19 Anaerobic Blood Culture - Preliminary Resulted Blood Peripheral NO GROWTH IN 2 DAYS 11/14/16 14:15 Acid Fast Stain - Final Resulted Fluid Pleural Fluid NO ACID FAST BACILLI SEEN 11/14/16 14:15 Mycobacterial Culture Resulted Fluid Pleural Fluid Pending 11/13/16 14:00 Influenza Types A,B Antigen (KAMI) - Final Complete Nasal Washing NEGATIVE FOR FLU A AND B ANTIGEN.... 11/13/16 13:30 Aerobic Blood Culture - Final Complete Blood Peripheral Staphylococcus Aureus 11/13/16 13:30 Anaerobic Blood Culture - Final Complete Staphylococcus Aureus Imaging Last Impressions Head CT 7/2/17 0600 Signed Impressions: Service Date/Time: Thursday, November 17, 2016 10:39 - CONCLUSION: No significant change has occurred. Deven Urrutia MD Chest X-Ray 11/17/16599 Signed Impressions: Service Date/Time: Thursday, November 17, 2016 03:36 - CONCLUSION: Diffuse airspace disease a large cavity in the right midlung zone is unchanged. Tubes and catheter are in good position. Sawyer Robertson MD Chest CT 11/16/16 0000 Signed Impressions: Service Date/Time: Wednesday, November 16, 2016 20:36 - CONCLUSION: 1. New right chest tube in the posterior superior right pleural space. There continues to be a moderate right pleural effusion primarily seen at the base. Some degree of loculation may be present inferiorly. The effusion does not layer posteriorly. There are scattered punctate areas of air within the pleural space inferiorly on the right. There is a solitary small area of air within the mild left pleural effusion. 2. Numerous irregular masses seen throughout both lungs some which are cavitary. These are nonspecific. Inflammatory masses needs be suspected. The multiplicity raises possibility of septic emboli. Agustin Price MD Abdomen X-Ray 11/15/16599 Signed Impressions: Service Date/Time: Tuesday, November 15, 2016 03:07 - CONCLUSION: Probable mild ileus involving loops of bowel on the left side. Reba Banerjee MD Abdomen/Pelvis CT 11/14/16 0000 Signed Impressions: Service Date/Time: October 09:55 - CONCLUSION: 1. Multiple loops of fluid-filled small bowel which are larger in caliber in comparison to yesterday's examination although not enlarged by size criteria. This may reflect mild enteritis versus developing mild adynamic ileus. 2. Persistent luminal narrowing at the gastroduodenal junction without definite focal mass. This is of uncertain clinical significance and likely reflects gastric contraction. Gastric mass/metastatic disease is not very likely based on appearance although it cannot be excluded. 3. 2 cm ill-defined hypodense lesion in the left renal mid pole with indeterminate density. Differential considerations include complex cyst versus metastatic disease in this patient with apparent diffuse metastatic disease in the chest. 4. Redemonstration of multiple bilateral cavitary masses at the lung bases with loculated right pleural effusion. Elder Long MD CT Angiography 11/13/16 1328 Signed Impressions: Service Date/Time: Sunday, November 13, 2016 15:50 - CONCLUSION: 1. Multiple cavitary lesions within both lungs with the largest measuring 9.5 cm in the right upper lobe. Differential diagnosis includes infectious and neoplastic etiologies. 2. Moderate sized right pleural effusion with adjacent compressive atelectasis and/or infiltrate. 3. Cardiomegaly and coronary artery calcifications. 4. Subcarinal mediastinal lymphadenopathy. 5. Degenerative changes throughout the thoracic spine. Jed Ponce MD Physical Exam HEENT: Normocephalic; atraumatic; no jaundice. intubated CHEST: course breath sounds. chest tube right chest, blood tinged yellow drainage from tube CARDIAC: RRR ABDOMEN: +BS, soft, nondistended, nontender. EXTREMITIES: No clubbing, cyanosis, or edema. SKIN: Multiple spotted lesions to ble/feet. AREA FIELD PERSON: sedated on vent (Kristy Sweeney) Assessment and Plan Plan ASSESSMENT - Abdominal pain. Abdomen/Pelvis CT (11/14/16)-----> 1. Multiple loops of fluid- filled small bowel which are larger in caliber in comparison to yesterday's examination although not enlarged by size criteria. This may reflect mild enteritis versus developing mild adynamic ileus. 2. Persistent luminal narrowing at the gastroduodenal junction without definite focal mass. This is of uncertain clinical significance and likely reflects gastric contraction. Gastric mass/metastatic disease is not very likely based on appearance although it cannot be excluded. 3. 2 cm ill-defined hypodense lesion in the left renal mid pole with indeterminate density. Differential considerations include complex cyst versus metastatic disease in this patient with apparent diffuse metastatic disease in the chest. 4. Redemonstration of multiple bilateral cavitary masses at the lung bases with loculated right pleural effusion. IMPROVED. No pain at this time. PPI. - Mild ileus/constipation. Abdomen X-Ray (11/15/16)----> Probable mild ileus involving loops of bowel on the left side. Reglan, Pericolace, Miralax. No bm yet, but abdomen is soft, nondistended, bowel sounds. Nontender. No abdominal pain. - Abnormal imaging with persistent luminal narrowing at the gastroduodenal junction without definite focal mass. PPI. Will need EGD at some point, timing to be determined. - Anemia. Likely multifactorial. No active bleeding. 11.8/36.9. - elevated ALP - hep panel pending - Bilateral cavitary lung lesions and right sided pleural effusion. CT Angiography (11/13/16)----> 1. Multiple cavitary lesions within both lungs with the largest measuring 9.5 cm in the right upper lobe. Differential diagnosis includes infectious and neoplastic etiologies. 2. Moderate sized right pleural effusion with adjacent compressive atelectasis and/or infiltrate. 3. Cardiomegaly and coronary artery calcifications. 4. Subcarinal mediastinal lymphadenopathy. Degenerative changes throughout the thoracic spine. S/P CT , but pt pulled out on 11/15. Pleural fluid with staphylococcus aureus. Pt had reportedly been doing well this morning then became tachypneic and tachycardic and required increased supplemental O2 to 6L oxygen. CT chest (11/16/16) ---> Right hydropneumothorax and bilateral cavitary masses greatest in the right upper lobe. Landy Templeton Zosyn. Pulm/ID/CCM following. - Sepsis with endocarditis. Abnormal 2D echo with moderate aortic regurgitation and CHANDNI with large vegetation. WBC worsening to 39.4. per CCM/ID, Landy Templeton Zosyn - Respiratory failure - per CCM s/p bronch, chest tube insertion, intubation PLAN: - await hep panel - Cont. PPI - Cont. Miralax - Cont. Reglan - Cont. Chinyere-Colace - Abx per ID/CCM - Monitor stool output - Supportive care - Consider EGD +/- Colonoscopy, timing to be determined- current septic with endocarditis/vegetation/bilateral cavitary lesions/pleural effusion. - Further recommendations as the case develops - Pt seen and examined by and myself and this note is written on her behalf (Kristy Sweeney) Physician Comments seen, examined agree with above unstable for egd/colon stool c diff (Brisa Magallno MD) Kristy Sweeney Nov 17, 2016 13:56 Brisa Magallon MD Nov 17, 2016 14:14
[2016-11-17] MEDS: VANCOMYCIN INJ 1,250 MG in SODIUM CHLOR 0.9% 250 ML INJ 250 ML IV SCH ×2 (14:06→21:55)
[2016-11-17] MEDS ORDERED: PHARMACY ORDERED LAB ONE (15:30)
[2016-11-17] MEDS: PHENYLEPHRINE INJ 160 MG in DEXTROSE 5% IN WATE 500 ML INJ 484 ML IV SCH ×2 (21:48)
[2016-11-17] MEDS: VASOPRESSIN INJ 40 UNITS in DEXTROSE 5% IN WATER 100ML INJ 98 ML IV SCH ×2 (21:51)
[2016-11-18] VITALS (31 sets, daily range): BP systolic 104–155; BP diastolic 42–77; PULSE 64–103; RESP 11–27; TEMP 97.5–98.6; O2SAT 90–100
[2016-11-18] MEDS: ceFAZolin 2 GM PREMIX 50 ML IV SCH ×3 (00:18→17:19)
[2016-11-18] MEDS: GENTAMICIN/SOD CHL 80 MG/100 ML IV SCH ×4 (00:18→23:49)
[2016-11-18] MEDS: PROPOFOL 1000 MG/100 ML INJ 100 ML IV SCH ×5 (01:39→21:04)
[2016-11-18] MEDS: RESP: ALBUTEROL 2.5 MG/IPRATROPIUM 0.5 MG NEB (SCH) INH ×4 (03:54→20:09)
[2016-11-18] MEDS: CHLORHEXIDINE GLUCONATE 2 % 1 PACK (2 CLOTHS) TOP SCH (04:00)
[2016-11-18] MEDS: PIPERACIL-TAZO 4.5 GM PREMIX 100 ML IV SCH ×3 (04:08→20:09)
[2016-11-18 04:11] LABS: AUTOMATED NEUTROPHIL # 47.1 TH/MM3 (1.8-7.7); BASOPHIL % 0.1 % (0.0-2.0); HEMATOCRIT 31.7 % (39.0-51.0); LYMPH % 2.7 % (9.0-44.0); LYMPHOCYTE # 1.4 TH/MM3 (1.0-4.8); MEAN CELL VOLUME 94.6 FL (80.0-100.0); MEAN CORPUSCULAR HEMOGLOBIN 29.9 PG (27.0-34.0); MEAN CORPUSCULAR HGB CONC 31.6 % (32.0-36.0); MONO % 3.4 % (0.0-8.0); NEUT % 93.8 % (16.0-70.0); PLATELET COUNT 355 TH/MM3 (150-450); RED BLOOD COUNT 3.35 MIL/MM3 (4.50-5.90); RED CELL DISTRIBUTION WIDTH 15.2 % (11.6-17.2); WHITE BLOOD COUNT 50.2 TH/MM3 (4.0-11.0)
[2016-11-18 04:14] LABS: HEMO FLAGS AUTO DIFF
[2016-11-18 04:27] LABS: APTT (PATIENT) 27.2 SEC (24.3-30.1); PROTHROMBIN TIME - PATIENT 10.5 SEC (9.8-11.6)
[2016-11-18 04:38] LABS: ANION GAP 8 MEQ/L (5-15); AST (GOT) 21 U/L (15-37); BLOOD UREA NITROGEN 28 MG/DL (7-18); CHLORIDE 105 MEQ/L (98-107); GLOMERULAR FILTRATION RATE 115 ML/MIN (>89); MAGNESIUM 2.5 MG/DL (1.5-2.5); POTASSIUM 4.7 MEQ/L (3.5-5.1); SODIUM (NA) 137 MEQ/L (136-145)
[2016-11-18 04:40] LABS: ALT (GPT) 16 U/L (12-78)
[2016-11-18 04:43] LABS: ALKALINE PHOSPHATASE 108 U/L (45-117); CREATINE KINASE 235 U/L (39-308); TOTAL BILIRUBIN ADULT 0.8 MG/DL (0.2-1.0)
[2016-11-18] MEDS: ARTIFICIAL TEARS OPTH SOLN 15 ML BTL EACH EYE SCH ×3 (05:05→21:06)
[2016-11-18] MEDS: VANCOMYCIN INJ 1,250 MG in SODIUM CHLOR 0.9% 250 ML INJ 250 ML IV SCH ×3 (05:05→22:04)
[2016-11-18] MEDS: METOCLOPRAMIDE HCL 10 MG/2 ML VIAL IV SCH ×3 (05:05→21:05)
[2016-11-18] MEDS: HYDROCORTISONE SOD SUCCINATE 100 MG VIAL IV PUSH SCH ×4 (05:06→23:50)
[2016-11-18 05:47] LABS: BANDS 15 % (0-6); METAMYELOCYTES 2 % (0-1); NEUTROPHIL # MANUAL DIFF 50.2 TH/MM3 (1.8-7.7); PLATELET ESTIMATE SMEAR NORMAL (NORMAL); PLATELET MORPHOLOGY NORMAL (NORMAL); POLYS (SEG NEUTROPHILS) 83 % (16-70); SCAN/DIFF FINAL DIFF MANUAL; WBC DIFF SAMPLE 100
[2016-11-18 05:48] LABS: DOHLE BODIES PRESENT (NONE SEEN); TOXIC GRANULATION 1+ (NORMAL)
[2016-11-18] MEDS: INSULIN ASPART SUPPLEMENTAL SCALE SQ SCH ×4 (06:40→22:06)
[2016-11-18] MEDS: CHLORHEXIDINE 0.12% (ORAL KIT) 15 ML CUP MT SCH ×2 (07:37→20:09)
[2016-11-18] MEDS: PANTOPRAZOLE SODIUM 40 MG VIAL IV SCH ×2 (08:17→21:05)
[2016-11-18] MEDS: POLYETHYLENE GLYCOL 17 GM PKG PO SCH ×2 (08:17→21:04)
[2016-11-18] MEDS: MULTIVITAMIN INJ 10 ML, THIAMINE INJ 100 MG, FOLIC ACID INJ 1 MG in SODIUM CHLORID 0.9%... IV SCH (08:17)
[2016-11-18] MEDS: EPOPROSTENOL NEB SOLUTION 50 NG/KG/MIN 100 ML NEB SCH ×6 (08:18→20:09)
[2016-11-18] MEDS: fentaNYL DRIP 250 ML IV SCH ×2 (08:18→23:49)
[2016-11-18] MEDS: DOCUSATE SODIUM 50 MG/SENNA 8.6 MG TAB PO SCH ×2 (08:18→21:06)
[2016-11-18] MEDS: SODIUM CHLOR 0.9% 1000 ML INJ 1,000 ML IV SCH (08:19)
[2016-11-18] MEDS: SODIUM CHLORIDE 0.9% FLUSH 10 ML FLUSH IV FLUSH SCH ×2 (08:19→20:10)
[2016-11-18] MEDS: SODIUM CHLORIDE 0.9% FLUSH 10 ML FLUSH IVF SCH (08:19)
--- NOTE | 2016-11-18 09:55 | HHI.CCPN ---
Subjective Remarks/Hospital Course 56-year-old male is brought to the emergency department by EMS for evaluation of generalized weakness, confusion for about 2 weeks, and also increasing shortness of breath. His oxygen saturation was 88% on room air. EMS administered breathing treatments and Solu-Medrol 125 mg 1 and placed him on nasal cannula. Patient states that he had been sick for almost 10 days, but he is a poor historian. He had a productive cough, but reports no hematemesis or weight loss. He states that it was his neighbor who made him called EMS. He has no past medical history and last time had seen a doctor was about 15 years ago. He denies any fevers but reports some night sweats and chills. He was tachycardic with a heart rate of 115 bpm, had severe leukocytosis with a white count of 35,000 with 91% neutrophils. CMP shows hyponatremia with a sodium of 126. Lactic acid is 2.4. His Chest x-ray shows large 7.7 x 7.8 cm cavitary right midlung lesion with associated right-sided pleural effusion. Subcentimeter left mid lung pulmonary nodules. Patient received 1 L normal saline bolus and Zosyn 4.5 g and Zithromax 500 mg IV and was placed on TB/ respiratory isolation. He has been being in snf 2 years ago increasing his risk of tuberculosis. CT pulmonary angiogram negative for PE but showed multiple cavitary lesions within both lungs with the largest measuring 9.5 cm in the right upper lobe. Moderate size right pleural effusion. I evaluated the patient in the emergency department. Patient appears critically ill in moderate distress mildly tachypneic, sweating. I performed a bedside ultrasound which showed a right effusion which is large. The thoracentesis was performed and 1 L of cloudy dark pleural fluid was removed. Patient will be continued on Zosyn and Levaquin and vancomycin. ID consulted and I discussed with Dr. Steele-she recommended no empiric treatments for TB. 11/14/16: Patient seen and examined complaints of severe epigastric and periumbilical abdominal pain. Patient remains oriented to person. His white count is slightly improved from 35,000-28,9000. Na improved to 136. I have ordered a STAT CT abd/pelvis with IV contrast. Chest x-ray shows reaccumulation of right pleural effusion-fluid chemistries are pending but cell count indicates at least a parapneumonic effusion and patient will need a pigtail chest tube 11/15: Patient pulled his right-sided pigtail catheter out overnight last night. Currently nasal cannula in no acute distress. Afebrile. Continues to have a leukocytosis. 11/16: Currently on room air. Hold out his IVs reportedly overnight last night. Requesting diet. Awake and alert and following commands. Subjective 11/17: Intubated yesterday due to acute hypercapnic respiratory failure. Hypoxic post intubation requiring right chest tube placement, bronchoscopy and Flolan. Bronchoscopy revealed thick mucous plugging at bilateral right and left mainstem which were clear. Improved oxygenation over the past 12 hours. Afebrile. 11/18 Patient remains sedated with Diprivan, Fentanyl and intubated. On Vasopressin and Neosyn 120 mics. Objective Vital Signs Date Time Temp Pulse Resp B/P Pulse Ox O2 Delivery O2 Flow Rate FiO2 11/18/16 07:45 100 35 11/18/16 06:00 68 11/18/16 04:00 97.8 20 118/59 122/48 11/16/16 08:09 Nasal Cannula 5.00 Intake and Output 11/17/16 11/17/16 11/18/16 08:00 16:00 00:00 Intake Total 1037 ml 2418 ml 1441 ml Output Total 262 ml 490 ml 350 ml Balance 775 ml 1928 ml 1091 ml Result Diagram: 11/18/16 0345 11/18/16 0345 Other Results Laboratory Tests Test 11/18/16 03:45 White Blood Count 50.2 TH/MM3 Red Blood Count 3.35 MIL/MM3 Hemoglobin 10.0 GM/DL Hematocrit 31.7 % Mean Corpuscular Volume 94.6 FL Mean Corpuscular Hemoglobin 29.9 PG Mean Corpuscular Hemoglobin 31.6 % Concent Red Cell Distribution Width 15.2 % Platelet Count 355 TH/MM3 Mean Platelet Volume 7.2 FL Neutrophils (%) (Auto) 93.8 % Lymphocytes (%) (Auto) 2.7 % Monocytes (%) (Auto) 3.4 % Eosinophils (%) (Auto) 0.0 % Basophils (%) (Auto) 0.1 % Neutrophils # (Auto) 47.1 TH/MM3 Lymphocytes # (Auto) 1.4 TH/MM3 Monocytes # (Auto) 1.7 TH/MM3 Eosinophils # (Auto) 0.0 TH/MM3 Basophils # (Auto) 0.0 TH/MM3 CBC Comment AUTO DIFF Differential Total Cells 100 Counted Neutrophils % (Manual) 83 % Band Neutrophils % 15 % Neutrophils # (Manual) 50.2 TH/MM3 Metamyelocytes 2 % Differential Comment FINAL DIFF MANUAL Toxic Granulation 1+ Dohle Bodies PRESENT Platelet Estimate NORMAL Platelet Morphology Comment NORMAL Prothrombin Time 10.5 SEC Prothromb Time International 1.0 RATIO Ratio Activated Partial 27.2 SEC Thromboplast Time Fibrinogen 589 mg/dL Sodium Level 137 MEQ/L Potassium Level 4.7 MEQ/L Chloride Level 105 MEQ/L Carbon Dioxide Level 24.0 MEQ/L Anion Gap 8 MEQ/L Blood Urea Nitrogen 28 MG/DL Creatinine 0.71 MG/DL Estimat Glomerular Filtration 115 ML/MIN Rate Random Glucose 152 MG/DL Lactic Acid Level 1.3 mmol/L Calcium Level 8.0 MG/DL Phosphorus Level 4.1 MG/DL Magnesium Level 2.5 MG/DL Total Bilirubin 0.8 MG/DL Aspartate Amino Transf 21 U/L (AST/SGOT) Alanine Aminotransferase 16 U/L (ALT/SGPT) Alkaline Phosphatase 108 U/L Total Creatine Kinase 235 U/L Troponin I 0.11 NG/ML Total Protein 6.3 GM/DL Albumin 1.3 GM/DL Imaging Last Impressions Head CT 11/17/16 06 Signed Impressions: Service Date/Time: Thursday, November 17, 2016 10:39 - CONCLUSION: No significant change has occurred. Deven Urrutia MD Chest X-Ray 11/17/16 0600 Signed Impressions: Service Date/Time: Thursday, November 17, 2016 03:36 - CONCLUSION: Diffuse airspace disease a large cavity in the right midlung zone is unchanged. Tubes and catheter are in good position. Sawyer Robertson MD Chest CT 11/16/16 0000 Signed Impressions: Service Date/Time: Wednesday, November 16, 2016 20:36 - CONCLUSION: 1. New right chest tube in the posterior superior right pleural space. There continues to be a moderate right pleural effusion primarily seen at the base. Some degree of loculation may be present inferiorly. The effusion does not layer posteriorly. There are scattered punctate areas of air within the pleural space inferiorly on the right. There is a solitary small area of air within the mild left pleural effusion. 2. Numerous irregular masses seen throughout both lungs some which are cavitary. These are nonspecific. Inflammatory masses needs be suspected. The multiplicity raises possibility of septic emboli. Agustin Price MD Abdomen X-Ray 11/15/16 0600 Signed Impressions: Service Date/Time: Tuesday, November 15, 2016 03:07 - CONCLUSION: Probable mild ileus involving loops of bowel on the left side. Reba Banerjee MD Abdomen/Pelvis CT 11/14/16 0000 Signed Impressions: Service Date/Time: October 09:55 - CONCLUSION: 1. Multiple loops of fluid-filled small bowel which are larger in caliber in comparison to yesterday's examination although not enlarged by size criteria. This may reflect mild enteritis versus developing mild adynamic ileus. 2. Persistent luminal narrowing at the gastroduodenal junction without definite focal mass. This is of uncertain clinical significance and likely reflects gastric contraction. Gastric mass/metastatic disease is not very likely based on appearance although it cannot be excluded. 3. 2 cm ill-defined hypodense lesion in the left renal mid pole with indeterminate density. Differential considerations include complex cyst versus metastatic disease in this patient with apparent diffuse metastatic disease in the chest. 4. Redemonstration of multiple bilateral cavitary masses at the lung bases with loculated right pleural effusion. Elder Long MD CT Angiography 11/13/16 1328 Signed Impressions: Service Date/Time: Sunday, November 13, 2016 15:50 - CONCLUSION: 1. Multiple cavitary lesions within both lungs with the largest measuring 9.5 cm in the right upper lobe. Differential diagnosis includes infectious and neoplastic etiologies. 2. Moderate sized right pleural effusion with adjacent compressive atelectasis and/or infiltrate. 3. Cardiomegaly and coronary artery calcifications. 4. Subcarinal mediastinal lymphadenopathy. 5. Degenerative changes throughout the thoracic spine. Jed Ponce MD Objective Remarks GENERAL: 86-year-old male, critically ill currently orotracheally intubated SKIN: Warm and dry. Scattered skin lesions erythematous predominantly left lower extremity HEAD: Normocephalic and atraumatic. EYES: No injection, drainage. Pupils equally round and reactive around 3 Diego 's bilaterally 2 mm. ENT: No nasal drainage noted. Oropharynx is clear. NECK: Supple. No JVD or thyromegaly or lymphadenopathy. Left IJ is clean dry and intact CARDIOVASCULAR: Tachycardic, RR. S1, S2. No S4. Surprisingly aortic regurgitation murmur not appreciated. RESPIRATORY: Diminished breath sounds right lower lobe. Bilateral mild expiratory wheezing and few crackles. Right chest tube is clean dry and intact. GASTROINTESTINAL: Abdomen is soft, no rebound or guarding on examination. Hypoactive bowel sounds are appreciated MUSCULOSKELETAL: Mild swelling of bilateral ankles. Multiple erythematous raised lesions on bilateral lower extremity predominantly left lower leg NEUROLOGICAL: Currently sedated on the ventilator propofol and fentanyl ventilator synchrony. Prior to intubation, moving all 4 extremity spontaneously interactive.. Date of Insertion: Nov 16, 2016 Line: Central Venous Catheter Side: Left Location: Internal, Jugular A/P Assessment and Plan NEURO/PSYCH: Metabolic encephalopathy On Diprivan and Fentanyl infusion for sedation/analgesia while intubated Goal of RA SS -[address] head 11/17 revealed no acute intracranial findings currently no signs of gross embolic events On Thiamine/MVI/Folic acid RESP: Bilateral cavitary lung lesions/most likely cavitating pneumonia from staph aureus Daily respiratory failure Large right loculated pleural effusion/empyema PRVC 20/520/1.05/28/39 Continue with vent support keep sat >92%. Decrease PEEP: 5 Duo nebs every 4 hours with albuterol nebs every 2 hours. Vent bundle. Flolan currently at 30,000 ng/ml at 8ml/hr nebs Right-sided chest tube #28 Spanish with 1 48 cc balta -20 cm H2O. - Right thoracentesis with 1 L cloudy yellow fluid removed, fluid cell studies WBC 2,600, - Patient status post pigtail catheter placement 11/14, 445 cc prior pulled out 11/15. Evaluated by Dr. Samuels/CT surgery. Per his recommendations, No indication for decortication at this time CV: Sinus tachycardia Aortic valve endocarditis Atrial fibrillation with RVR early normal sinus rhythm Elevated troponin - likely rate dependent Wean off pressors as tiki ( On Neosyn 120 mics, Vasopressin) monitor HR and BP keep MAP>65mmHg - Stress dose steroids-decrease Hydrocortisone 50mg IV Q6 2-D echocardiogram revealed EF 55-60%. Moderate AR. CHANDNI revealed 17 mm x 17 millimeter mobile mass on aortic valve - CT surgery consult. Recommendations no intervention at this time GI: Acute abdominal pain - resolving Hypoalbuminemia Continue tube feeds with Glucerna 1.5 goal 55 cc an hour. IV Protonix for GI prophylaxis Chinyere-Colace and MiraLAX for bowel regimen Reglan for bowel motility - CT of the abdomen pelvis with IV contrast revealed possible ileus., Gastric contraction at gastric duodenal junction. 2 mm renal cyst. - KUB 11/15 revealed improving mild ileus. GI is following. ID: Severe sepsis Multilobar cavitating pneumonia secondary staph aureus Staph aureus empyema - Continue with abx per ID ( IV Vanco, Ancef, Zosyn, Gent) monitor for signs of infections ( Fever, WBC) Pertinent cultures 11/13 - blood cultures 2 - staph aureus 11/13 and 11/14- pleural fluid- staph aureus 11/14- sputum- staph aureus 11/15 - blood cultures 2 - pending 11/16 - Broch samples all pending 11/16 Sputum: Staph Aureus HEME: Leukocytosis Normocytic anemia - Monitor CBC, CMP, coags ENDO: SSI with accuchecks for glycemic control TSH 0.6. PROPH: - Bilateral lower extremity SCDs. Heaprin SQ, IV Protonix for prophylaxis LINES: - Left IJ CVP, Right Femoral Art line placed 11/16 Palliative care eval to asses with goals of care Care time 30 minutes. Noam Calhoun MD Nov 18, 2016 09:55 LINES: - Utilize peripheral IVs, central line if needed Care time 35 minutes. Patient is critically ill requiring aggressive pulmonary intervention with Flolan and titration of vasoactive drips Addendum Patient became more confused, not His Mask. Likely Aspirating. Decision Made to Intubate. Central Line Placed after Discussion with Family friend (Kerrie hobson)[facility] Surrogate by Proxy Noam Calhoun MD Nov 18, 2016 09:55
[2016-11-18] MEDS ORDERED: BUMETANIDE INJ 1 MG/4 ML VIAL IV PUSH ONE (10:00)
[2016-11-18] MEDS: MULTIVITAMIN TAB PO SCH (10:15)
[2016-11-18] MEDS: THIAMINE HCL 100 MG TAB PO SCH (10:15)
[2016-11-18] MEDS: FOLIC ACID 1 MG TAB PO SCH (10:15)
[2016-11-18] MEDS ORDERED: DEXTROSE 50% IN WATER 50 ML VIAL(D50) IV PUSH PRN (10:45)
[2016-11-18] MEDS ORDERED: GLUCAGON 1 MG/ML VIAL OTHER PRN (10:45)
--- NOTE | 2016-11-18 11:56 | HHI.GIFU ---
Subjective Remarks Resting in bed, sedated on the ventilator- required intubation on Friday. Friend at bedside. Tolerating TF. Objective Vitals I&O Vital Signs Date Time Temp Pulse Resp B/P Pulse Ox O2 Delivery O2 Flow Rate FiO2 11/18/16 10:00 68 11/18/16 08:00 40 11/18/16 08:00 97.5 65 20 115/55 100 118/51 11/18/16 08:00 68 11/18/16 07:45 100 35 11/18/16 06:00 68 11/18/16 04:12 100 40 11/18/16 04:00 66 11/18/16 04:00 40 11/18/16 04:00 97.8 66 20 118/59 100 122/48 11/18/16 02:00 64 11/18/16 00:51 100 40 11/18/16 00:00 40 11/18/16 00:00 97.6 68 20 114/56 95 111/42 11/18/16 00:00 68 11/17/16 22:55 99 40 11/17/16 22:00 65 11/17/16 20:11 98 40 11/17/16 20:00 40 11/17/16 20:00 68 11/17/16 20:00 97.3 68 20 113/57 97 123/50 11/17/16 18:00 67 11/17/16 16:00 97.4 67 20 108/55 94 116/44 11/17/16 16:00 67 11/17/16 16:00 40 11/17/16 15:17 96 40 11/17/16 14:00 69 11/17/16 12:00 98.3 70 20 108/57 97 114/42 11/17/16 12:00 70 11/17/16 12:00 40 I/O 11/17/16 11/17/16 11/17/16 11/18/16 11/18/16 11/18/16 07:00 15:00 23:00 07:00 15:00 23:00 Intake Total 2345 ml 2418 ml 1441 ml 1788 ml Output Total 698 ml 490 ml 350 ml 405 ml Balance 1647 ml 1928 ml 1091 ml 1383 ml IV Total 2345 ml 2418 ml 1441 ml 1788 ml Output Urine Total 550 ml 490 ml 250 ml 275 ml Chest Tube Drainage Total 148 ml 100 ml 130 ml # Bowel Movements 0 0 0 0 Laboratory Laboratory Tests Test 11/18/16 03:45 White Blood Count 50.2 Red Blood Count 3.35 Hemoglobin 10.0 Hematocrit 31.7 Mean Corpuscular Volume 94.6 Mean Corpuscular Hemoglobin 29.9 Mean Corpuscular Hemoglobin 31.6 Concent Red Cell Distribution Width 15.2 Platelet Count 355 Mean Platelet Volume 7.2 Neutrophils (%) (Auto) 93.8 Lymphocytes (%) (Auto) 2.7 Monocytes (%) (Auto) 3.4 Eosinophils (%) (Auto) 0.0 Basophils (%) (Auto) 0.1 Neutrophils # (Auto) 47.1 Lymphocytes # (Auto) 1.4 Monocytes # (Auto) 1.7 Eosinophils # (Auto) 0.0 Basophils # (Auto) 0.0 CBC Comment AUTO DIFF Differential Total Cells 100 Counted Neutrophils % (Manual) 83 Band Neutrophils % 15 Neutrophils # (Manual) 50.2 Metamyelocytes 2 Differential Comment FINAL DIFF MANUAL Toxic Granulation 1+ Dohle Bodies PRESENT Platelet Estimate NORMAL Platelet Morphology Comment NORMAL Prothrombin Time 10.5 Prothromb Time International 1.0 Ratio Activated Partial 27.2 Thromboplast Time Fibrinogen 589 Sodium Level 137 Potassium Level 4.7 Chloride Level 105 Carbon Dioxide Level 24.0 Anion Gap 8 Blood Urea Nitrogen 28 Creatinine 0.71 Estimat Glomerular Filtration 115 Rate Random Glucose 152 Lactic Acid Level 1.3 Calcium Level 8.0 Phosphorus Level 4.1 Magnesium Level 2.5 Total Bilirubin 0.8 Aspartate Amino Transf 21 (AST/SGOT) Alanine Aminotransferase 16 (ALT/SGPT) Alkaline Phosphatase 108 Total Creatine Kinase 235 Troponin I 0.11 Total Protein 6.3 Albumin 1.3 Date/Time Procedure Status Source Growth 11/16/16 22:00 Gram Stain - Final Resulted Bronchial Washings Right Upper Lobe 11/16/16 22:00 Bronchial Culture Resulted Bronchial Washings Right Upper Lobe Pending 11/16/16 22:00 Fungal Smear - Final Resulted Bronchial Washings Right Upper Lobe NO FUNGAL ELEMENTS SEEN. 11/16/16 22:00 Fungal Culture Resulted Bronchial Washings Right Upper Lobe Pending 11/16/16 22:00 Acid Fast Stain Received Bronchial Washings Right Upper Lobe Pending 11/16/16 22:00 Mycobacterial Culture Received Bronchial Washings Right Upper Lobe Pending 11/15/16 21:19 Aerobic Blood Culture - Preliminary Resulted Blood Peripheral Gram Positive Cocci 11/15/16 21:19 Anaerobic Blood Culture - Preliminary Resulted Blood Peripheral NO GROWTH IN 3 DAYS 11/14/16 14:15 Acid Fast Stain - Final Resulted Fluid Pleural Fluid NO ACID FAST BACILLI SEEN 11/14/16 14:15 Mycobacterial Culture Resulted Fluid Pleural Fluid Pending 11/13/16 14:00 Influenza Types A,B Antigen (KAMI) - Final Complete Nasal Washing NEGATIVE FOR FLU A AND B ANTIGEN.... 11/13/16 13:30 Aerobic Blood Culture - Final Complete Blood Peripheral Staphylococcus Aureus 11/13/16 13:30 Anaerobic Blood Culture - Final Complete Staphylococcus Aureus Imaging Last Impressions Head CT 11/17/16599 Signed Impressions: Service Date/Time: Thursday, November 17, 2016 10:39 - CONCLUSION: No significant change has occurred. Deven Urrutia MD Chest X-Ray 11/17/16599 Signed Impressions: Service Date/Time: Thursday, November 17, 2016 03:36 - CONCLUSION: Diffuse airspace disease a large cavity in the right midlung zone is unchanged. Tubes and catheter are in good position. Sawyer Robertson MD Chest CT 11/16/16 0000 Signed Impressions: Service Date/Time: Wednesday, November 16, 2016 20:36 - CONCLUSION: 1. New right chest tube in the posterior superior right pleural space. There continues to be a moderate right pleural effusion primarily seen at the base. Some degree of loculation may be present inferiorly. The effusion does not layer posteriorly. There are scattered punctate areas of air within the pleural space inferiorly on the right. There is a solitary small area of air within the mild left pleural effusion. 2. Numerous irregular masses seen throughout both lungs some which are cavitary. These are nonspecific. Inflammatory masses needs be suspected. The multiplicity raises possibility of septic emboli. Agustin Price MD Abdomen X-Ray 11/15/16 0600 Signed Impressions: Service Date/Time: Tuesday, November 15, 2016 03:07 - CONCLUSION: Probable mild ileus involving loops of bowel on the left side. Reba Banerjee MD Abdomen/Pelvis CT 11/14/16 0000 Signed Impressions: Service Date/Time: October 09:55 - CONCLUSION: 1. Multiple loops of fluid-filled small bowel which are larger in caliber in comparison to yesterday's examination although not enlarged by size criteria. This may reflect mild enteritis versus developing mild adynamic ileus. 2. Persistent luminal narrowing at the gastroduodenal junction without definite focal mass. This is of uncertain clinical significance and likely reflects gastric contraction. Gastric mass/metastatic disease is not very likely based on appearance although it cannot be excluded. 3. 2 cm ill-defined hypodense lesion in the left renal mid pole with indeterminate density. Differential considerations include complex cyst versus metastatic disease in this patient with apparent diffuse metastatic disease in the chest. 4. Redemonstration of multiple bilateral cavitary masses at the lung bases with loculated right pleural effusion. Elder Long MD CT Angiography 11/13/16 1328 Signed Impressions: Service Date/Time: Friday, November 13, 2016 15:50 - CONCLUSION: 1. Multiple cavitary lesions within both lungs with the largest measuring 9.5 cm in the right upper lobe. Differential diagnosis includes infectious and neoplastic etiologies. 2. Moderate sized right pleural effusion with adjacent compressive atelectasis and/or infiltrate. 3. Cardiomegaly and coronary artery calcifications. 4. Subcarinal mediastinal lymphadenopathy. 5. Degenerative changes throughout the thoracic spine. Jed Ponce MD Physical Exam HEENT: Normocephalic; atraumatic; no jaundice. CHEST: OETT to vent, course breath sounds. chest tube right chest CARDIAC: RRR ABDOMEN: Abdomen soft, nontender, nondistended. Bowel sounds present EXTREMITIES: No clubbing, cyanosis, or edema. SKIN: Multiple spotted lesions to ble/feet. 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 Abdomen/Pelvis CT (11/14/16)-----> 1. Multiple loops of fluid- filled small bowel which are larger in caliber in comparison to yesterday's examination although not enlarged by size criteria. This may reflect mild enteritis versus developing mild adynamic ileus. 2. Persistent luminal narrowing at the gastroduodenal junction without definite focal mass. This is of uncertain clinical significance and likely reflects gastric contraction. Gastric mass/metastatic disease is not very likely based on appearance although it cannot be excluded. 3. 2 cm ill-defined hypodense lesion in the left renal mid pole with indeterminate density. Differential considerations include complex cyst versus metastatic disease in this patient with apparent diffuse metastatic disease in the chest. 4. Redemonstration of multiple bilateral cavitary masses at the lung bases with loculated right pleural effusion. IMPROVED. Now sedated, but his pain resolved prior to being intubated. PPI. - Mild ileus/constipation. Abdomen X-Ray (11/15/16)----> Probable mild ileus involving loops of bowel on the left side. Reglan, Pericolace, Miralax. No bm yet, but abdomen is soft, nondistended, bowel sounds. Nontender. Does not appear to be tender. No BM yet. Will give dose of Lactulose today. - Abnormal imaging with persistent luminal narrowing at the gastroduodenal junction without definite focal mass. PPI. Will need EGD at some point, timing to be determined. - Anemia. Likely multifactorial. No active bleeding. 10.0/31.7. - Elevated alk phosphatase . Improved. LFT within normal limit now. Hepatitis panel negative. - Bilateral cavitary lung lesions and right sided pleural effusion. CT Angiography (11/13/16)----> 1. Multiple cavitary lesions within both lungs with the largest measuring 9.5 cm in the right upper lobe. Differential diagnosis includes infectious and neoplastic etiologies. 2. Moderate sized right pleural effusion with adjacent compressive atelectasis and/or infiltrate. 3. Cardiomegaly and coronary artery calcifications. 4. Subcarinal mediastinal lymphadenopathy. Degenerative changes throughout the thoracic spine. S/P CT , but pt pulled out on 11/15. Pleural fluid with staphylococcus aureus. CT replaced. He became tachypneic on 11/[address] chest (11/16/16) ---> Right hydropneumothorax and bilateral cavitary masses greatest in the right upper lobe. Vanco, Zosyn. Pulm/ID/CCM following. - Sepsis with endocarditis. Abnormal 2D echo with moderate aortic regurgitation and CHANDNI with large vegetation. Worsening WBC- 50.2 today. S/P CVT evaluation, no plans for surgical intervention at this time. Abx per ID/CCM. ByronoStephsyn - Respiratory failure - per CCM s/p bronch, chest tube insertion, intubation PLAN: - TF as tolerated - Lactulose 30mL po x 1 today - Cont. PPI - Cont. Miralax - Cont. Reglan - Cont. Chinyere-Colace - Abx per ID/CCM - Monitor stool output - Supportive care - Consider EGD +/- Colonoscopy, timing to be determined- current septic with endocarditis/vegetation/bilateral cavitary lesions/pleural effusion. - Further recommendations as the case develops - Pt seen and examined by Dr Figueroa and myself and this note is written on his behalf Charlene Mueller Nov 18, 2016 11:56
--- NOTE | 2016-11-18 12:30 | HHI.IDPN ---
Note Infectious Disease Note Weekend events noted. Patient intubated. On the vent. Has r. chest tube. Unresponsive. Sedated. Afebrile. On Neosynephrine. Large vegetation on AV and moderate aortic regurg on CHANDNI. Culture of blood 11/13, 11/15, 11/16. - Staph aureus. Culture of pleural fluid 11/14 - staph aureus. Presented to the emergency department with a 2-week history of weakness. He was noted to have low oxygen saturation. He reported that he had productive cough over the past couple of weeks and was experiencing shortness of breath. ALLERGIES NO KNOWN DRUG ALLERGIES. Current Medications Medications (Trade) Dose Ordered Sig/Gaye Route PRN Reason Start Time Stop Time Status Last Admin Dose Admin Sodium Chloride (NS Flush) 2 ml UNSCH PRN IV FLUSH FLUSH AFTER USING IV ACCESS 11/13/16 17:15 Sodium Chloride (NS Flush) 2 ml BID IV FLUSH 11/13/16 21:00 11/17/16 21:49 Miscellaneous Information 1 [id number] XX 11/13/16 17:15 Chlorhexidine Gluconate (Chlorhexidine 2% Cloth) 3 pack Taper DAILY@04 TOP 11/14/16 04:00 11/10/17 03:59 11/18/16 04:00 Chlorhexidine Gluconate (Chlorhexidine 2% Cloth) 3 pack UNSCH PRN TOP HYGIENIC CARE 11/13/16 17:15 Senna/Docusate Sodium (Chinyere-Colace) 1 tab BID PO 11/13/16 21:00 11/17/16 21:00 Ondansetron HCl (Zofran Inj) 4 mg Q6H PRN IV PUSH NAUSEA 11/14/16 06:30 11/14/16 06:52 Morphine Sulfate (Morphine Inj) 2 mg Q3H PRN IV PUSH pain 5-10 11/14/16 09:00 11/14/16 12:32 Pantoprazole Sodium (Protonix Inj) 40 mg BID IV 11/14/16 21:00 11/18/16 08:17 Polyethylene Glycol 17 gm 17 gm BID PO 11/14/16 21:00 11/18/16 08:17 Cefazolin Sodium/ Dextrose (Ancef 2 Gm Premix) 50 ml @ 100 mls/hr Q8H IV 11/15/16 17:00 11/18/16 08:18 Temazepam (Restoril) 15 mg HS PRN PO sleep 11/15/16 21:00 Metoclopramide HCl (Reglan Inj) 10 mg Q8HR IV 11/16/16 14:00 11/18/16 05:05 Metoprolol Tartrate 5 mg 5 mg Q4HR IV PUSH 11/16/16 12:00 Hold 11/16/16 11:57 Pharmacy Profile Note 0 ml @ 0 mls/hr UNSCH OTHER 11/16/16 11:45 Piperacillin Sod/ Tazobactam Sod 100 ml @ 200 mls/hr Q8H IV 11/16/16 12:00 11/18/16 11:44 Gentamicin Sulfate/Sodium Chloride (Gentamicin 80 Mg Premix) 100 ml @ 200 mls/hr Q8H IV 11/16/16 16:00 11/18/16 08:19 Chlorhexidine Gluconate 15 ml 15 ml BID@08,20 MT 11/16/16 20:00 11/18/16 07:37 Propofol 100 ml @ 0 mls/hr TITRATE IV 11/16/16 16:30 11/18/16 09:39 Fentanyl Citrate (fentaNYL DRIP) 250 ml @ 0 mls/hr TITRATE IV 11/16/16 16:30 11/18/16 08:18 Sodium Chloride (NS Flush) DAILY IVF 11/17/16 09:00 11/17/16 08:40 Sodium Chloride (NS Flush) UNSCH PRN IVF SEE PROTOCOL 11/16/16 17:15 Diltiazem HCl (Cardizem) 30 mg QID NG 11/16/16 18:00 Hold Terbutaline Sulfate 1 mg 1 mg UNSCH PRN SQ For Extravasation 11/16/16 17:15 Phenylephrine HCl 160 mg/Dextrose 500 ml @ 0 mls/hr TITRATE IV 11/16/16 18:00 11/17/16 21:48 Epoprostenol Sodium 100 ml/ Sodium Chloride 100 ml @ 8 mls/hr Q8H NEB 11/16/16 20:00 11/18/16 08:18 Vasopressin/ Dextrose (Pitressin Inj/ D5W 100 ml Inj) 100 ml @ 1.5 mls/hr Q24H IV 11/16/16 21:57 11/16/16 23:05 Artificial Tears 1 drop 1 drop Q8HR EACH EYE 11/17/16 14:00 11/18/16 05:05 Pharmacy Profile Note 0 ml @ 0 mls/hr UNSCH OTHER 11/17/16 12:00 Vancomycin HCl/ Sodium Chloride (Vancomycin Inj/ NS 250 ml Inj) 262.5 ml @ 250 mls/hr Q8H IV 11/17/16 14:00 11/18/16 05:05 Miscellaneous Information SPECIFIC LAB TO BE [facility]... ONCE ONCE .XX 11/18/16 13:45 11/18/16 13:46 Hydrocortisone Sodium Succinate (SoluCORTEF INJ) 50 mg Q6HR IV PUSH 11/18/16 12:00 11/18/16 11:44 Insulin Aspart (NovoLOG SUPPLEMENTAL SCALE) 1 Q6H SQ 11/18/16 11:00 Thiamine HCl (Vitamin B1) 100 mg DAILY PO 11/18/16 10:15 Folic Acid (Folate) 1 mg DAILY PO 11/18/16 10:15 Multivitamins (Theragran) 1 tab DAILY PO 11/18/16 10:15 Heparin Sodium (Porcine) (Heparin Inj) 5,000 units Q12HR SQ 11/18/16 21:00 Dextrose (D50w (Vial) Inj) 25 ml UNSCH PRN IV PUSH HYPOGLYCEMIA - SEE COMMENTS 11/18/16 10:45 Glucagon (Glucagon Inj) 1 mg UNSCH PRN OTHER HYPOGLYCEMIA-SEE COMMENTS 11/18/16 10:45 Lactulose (Lactulose Liq) 30 ml DAILY PO 11/18/16 12:00 UNV OBJECTIVE: Vital Signs Date Time Temp Pulse Resp B/P Pulse Ox O2 Delivery O2 Flow Rate FiO2 11/18/16 12:00 97.7 74 11 104/56 90 111/50 11/18/16 12:00 74 11/18/16 12:00 40 11/18/16 10:00 68 11/18/16 08:00 40 11/18/16 08:00 97.5 65 20 115/55 100 118/51 11/18/16 08:00 68 11/18/16 07:45 100 35 11/18/16 06:00 68 11/18/16 04:12 100 40 11/18/16 04:00 66 11/18/16 04:00 40 11/18/16 04:00 97.8 66 20 118/59 100 122/48 11/18/16 02:00 64 11/18/16 00:51 100 40 11/18/16 00:00 40 11/18/16 00:00 97.6 68 20 114/56 95 111/42 11/18/16 00:00 68 11/17/16 22:55 99 40 11/17/16 22:00 65 11/17/16 20:11 98 40 11/17/16 20:00 40 11/17/16 20:00 68 11/17/16 20:00 97.3 68 20 113/57 97 123/50 11/17/16 18:00 67 11/17/16 16:00 97.4 67 20 108/55 94 116/44 11/17/16 16:00 67 11/17/16 16:00 40 11/17/16 15:17 96 40 11/17/16 14:00 69 11/17/16 11/17/16 11/18/16 15:00 23:00 07:00 Intake Total 2418 ml 1441 ml 1788 ml Output Total 490 ml 350 ml 405 ml Balance 1928 ml 1091 ml 1383 ml IV Total 2418 ml 1441 ml 1788 ml Output Urine Total 490 ml 250 ml 275 ml Chest Tube Drainage Total 100 ml 130 ml # Bowel Movements 0 0 0 Laboratory Tests Test 11/17/16 11/18/16 03:30 03:45 White Blood Count 49.0 TH/MM3 50.2 TH/MM3 Red Blood Count 3.39 MIL/MM3 3.35 MIL/MM3 Hemoglobin 10.2 GM/DL 10.0 GM/DL Hematocrit 31.9 % 31.7 % Mean Corpuscular Volume 94.2 FL 94.6 FL Mean Corpuscular Hemoglobin 30.2 PG 29.9 PG Mean Corpuscular Hemoglobin 32.1 % 31.6 % Concent Red Cell Distribution Width 14.4 % 15.2 % Platelet Count 340 TH/MM3 355 TH/MM3 Mean Platelet Volume 7.2 FL 7.2 FL Neutrophils (%) (Auto) 94.9 % 93.8 % Lymphocytes (%) (Auto) 2.1 % 2.7 % Monocytes (%) (Auto) 2.8 % 3.4 % Eosinophils (%) (Auto) 0.1 % 0.0 % Basophils (%) (Auto) 0.1 % 0.1 % Neutrophils # (Auto) 46.4 TH/MM3 47.1 TH/MM3 Lymphocytes # (Auto) 1.0 TH/MM3 1.4 TH/MM3 Monocytes # (Auto) 1.4 TH/MM3 1.7 TH/MM3 Eosinophils # (Auto) 0.1 TH/MM3 0.0 TH/MM3 Basophils # (Auto) 0.1 TH/MM3 0.0 TH/MM3 CBC Comment AUTO DIFF AUTO DIFF Differential Total Cells 100 100 Counted Neutrophils % (Manual) 84 % 83 % Band Neutrophils % 13 % 15 % Lymphocytes % 1 % Monocytes % 2 % Neutrophils # (Manual) 47.5 TH/MM3 50.2 TH/MM3 Differential Comment FINAL DIFF FINAL DIFF MANUAL MANUAL Platelet Estimate NORMAL NORMAL Platelet Morphology Comment NORMAL NORMAL Red Cell Morphology Comment NORMAL Metamyelocytes 2 % Toxic Granulation 1+ Dohle Bodies PRESENT Laboratory Tests Test 11/17/16 11/18/16 03:30 03:45 Sodium Level 138 MEQ/L 137 MEQ/L Potassium Level 4.5 MEQ/L 4.7 MEQ/L Chloride Level 103 MEQ/L 105 MEQ/L Carbon Dioxide Level 26.1 MEQ/L 24.0 MEQ/L Anion Gap 9 MEQ/L 8 MEQ/L Blood Urea Nitrogen 24 MG/DL 28 MG/DL Creatinine 0.74 MG/DL 0.71 MG/DL Estimat Glomerular Filtration 110 ML/MIN 115 ML/MIN Rate Random Glucose 146 MG/DL 152 MG/DL Lactic Acid Level 1.2 mmol/L 1.3 mmol/L Calcium Level 8.2 MG/DL 8.0 MG/DL Phosphorus Level 4.1 MG/DL 4.1 MG/DL Magnesium Level 2.4 MG/DL 2.5 MG/DL Total Bilirubin 1.1 MG/DL 0.8 MG/DL Aspartate Amino Transf 22 U/L 21 U/L (AST/SGOT) Alanine Aminotransferase 22 U/L 16 U/L (ALT/SGPT) Alkaline Phosphatase 142 U/L 108 U/L Total Protein 6.1 GM/DL 6.3 GM/DL Albumin 1.2 GM/DL 1.3 GM/DL Total Creatine Kinase 235 U/L Troponin I 0.11 NG/ML Microbiology Date/Time Procedure Status Source Growth 11/15/16 21:10 Aerobic Blood Culture - Final Resulted Blood Peripheral Staphylococcus Aureus 11/15/16 21:10 Anaerobic Blood Culture - Preliminary Resulted Blood Peripheral NO GROWTH IN 3 DAYS 11/15/16 21:19 Aerobic Blood Culture - Preliminary Resulted Blood Peripheral Gram Positive Cocci 11/15/16 21:19 Anaerobic Blood Culture - Preliminary Resulted Blood Peripheral NO GROWTH IN 3 DAYS 11/16/16 16:40 Gram Stain - Final Resulted Sputum Endotracheal 11/16/16 16:40 Sputum Culture - Preliminary Resulted Staphylococcus Aureus 11/16/16 22:00 Gram Stain - Final Resulted Bronchial Washings Right Upper Lobe 11/16/16 22:00 Bronchial Culture Resulted Bronchial Washings Right Upper Lobe Pending 11/16/16 22:00 Acid Fast Stain Received Bronchial Washings Right Upper Lobe Pending 11/16/16 22:00 Mycobacterial Culture Received Bronchial Washings Right Upper Lobe Pending 11/16/16 22:00 Fungal Smear - Final Resulted Bronchial Washings Right Upper Lobe NO FUNGAL ELEMENTS SEEN. 11/16/16 22:00 Fungal Culture Resulted Bronchial Washings Right Upper Lobe Pending Microbiology Date/Time Procedure Status Source Growth 11/13/16 13:30 Aerobic Blood Culture - Preliminary Resulted Blood Peripheral Staphylococcus Aureus 11/13/16 13:30 Anaerobic Blood Culture - Preliminary Resulted Staphylococcus Aureus 11/13/16 13:30 Aerobic Blood Culture - Preliminary Resulted Blood Peripheral Staphylococcus Aureus 11/13/16 13:30 Anaerobic Blood Culture - Preliminary Resulted Staphylococcus Aureus 11/13/16 14:00 Influenza Types A,B Antigen ([facility]) - Final Complete Nasal Washing NEGATIVE FOR FLU A AND B ANTIGEN.... 11/13/16 18:20 Gram Stain - Final Complete Fluid Pleural Fluid 11/13/16 18:20 Body Fluid Culture - Final Complete Staphylococcus Aureus 11/13/16 18:20 Acid Fast Stain - Final Resulted Fluid Pleural Fluid NO ACID FAST BACILLI SEEN 11/13/16 18:20 Mycobacterial Culture Resulted Fluid Pleural Fluid Pending 11/13/16 18:20 Fungal Smear - Final Resulted Fluid Pleural Fluid NO FUNGAL ELEMENTS SEEN. 11/13/16 18:20 Fungal Culture Resulted Fluid Pleural Fluid Pending 11/14/16 06:30 Acid Fast Stain - Final Resulted Sputum Expectorated Sputum NO ACID FAST BACILLI SEEN 11/14/16 06:30 Mycobacterial Culture Resulted Sputum Expectorated Sputum Pending 11/14/16 06:30 Gram Stain - Final Resulted Sputum Endotracheal 11/14/16 06:30 Sputum Culture - Preliminary Resulted Staphylococcus Aureus 11/14/16 14:15 Gram Stain - Final Resulted Fluid Pleural Fluid 11/14/16 14:15 Body Fluid Culture - Preliminary Resulted Staphylococcus Aureus 11/14/16 14:15 Acid Fast Stain - Final Resulted Fluid Pleural Fluid NO ACID FAST BACILLI SEEN 11/14/16 14:15 Mycobacterial Culture Resulted Fluid Pleural Fluid Pending 11/14/16 14:15 Fungal Smear - Final Resulted Fluid Pleural Fluid NO FUNGAL ELEMENTS SEEN. 11/14/16 14:15 Fungal Culture Resulted Fluid Pleural Fluid Pending IMAGING: Head CT 11/17/16599 Signed Impressions: Service Date/Time: Thursday, November 17, 2016 10:39 - CONCLUSION: No significant change has occurred. Deven Urrutia MD Chest X-Ray 11/17/16599 Signed Impressions: Service Date/Time: Thursday, November 17, 2016 03:36 - CONCLUSION: Diffuse airspace disease a large cavity in the right midlung zone is unchanged. Tubes and catheter are in good position. Sawyer Robertson MD Chest CT 11/16/16 0000 Signed Impressions: Service Date/Time: Wednesday, November 16, 2016 20:36 - CONCLUSION: 1. New right chest tube in the posterior superior right pleural space. There continues to be a moderate right pleural effusion primarily seen at the base. Some degree of loculation may be present inferiorly. The effusion does not layer posteriorly. There are scattered punctate areas of air within the pleural space inferiorly on the right. There is a solitary small area of air within the mild left pleural effusion. 2. Numerous irregular masses seen throughout both lungs some which are cavitary. These are nonspecific. Inflammatory masses needs be suspected. The multiplicity raises possibility of septic emboli. Agustin Price MD Abdomen X-Ray 11/15/16599 Signed Impressions: Service Date/Time: Tuesday, November 15, 2016 03:07 - CONCLUSION: Probable mild ileus involving loops of bowel on the left side. Reba Banerjee MD Abdomen/Pelvis CT 11/14/16 0000 Signed Impressions: Service Date/Time: October 09:55 - CONCLUSION: 1. Multiple loops of fluid-filled small bowel which are larger in caliber in comparison to yesterday's examination although not enlarged by size criteria. This may reflect mild enteritis versus developing mild adynamic ileus. 2. Persistent luminal narrowing at the gastroduodenal junction without definite focal mass. This is of uncertain clinical significance and likely reflects gastric contraction. Gastric mass/metastatic disease is not very likely based on appearance although it cannot be excluded. 3. 2 cm ill-defined hypodense lesion in the left renal mid pole with indeterminate density. Differential considerations include complex cyst versus metastatic disease in this patient with apparent diffuse metastatic disease in the chest. 4. Redemonstration of multiple bilateral cavitary masses at the lung bases with loculated right pleural effusion. Elder Long MD CT Angiography 11/13/16 1328 Signed Impressions: Service Date/Time: Sunday, November 13, 2016 15:50 - CONCLUSION: 1. Multiple cavitary lesions within both lungs with the largest measuring 9.5 cm in the right upper lobe. Differential diagnosis includes infectious and neoplastic etiologies. 2. Moderate sized right pleural effusion with adjacent compressive atelectasis and/or infiltrate. 3. Cardiomegaly and coronary artery calcifications. 4. Subcarinal mediastinal lymphadenopathy. 5. Degenerative changes throughout the thoracic spine. Jed Ponce MD PHYSICAL EXAMINATION GENERAL: Sedate don the vent. HEENT: No icterus. Oropharynx moist mucosa without lesions. No thrush. NECK: Supple without adenopathy. LUNGS: Decreased breaths sound at the r. base. HEART: Normal S1-S2 without audible murmurs, rubs or gallops. ABDOMEN: Bowel sounds present, soft. EXTREMITIES: No clubbing or cyanosis or edema. SKIN: Punctate erythematous lesions at the lower extremities including the left tibia, left foot and right foot which blanches with palpation. NEURO: No gross focal findings. PSYCH: Somnolent, unable to assess. IMPRESSION 1. Sepsis. Endocarditis AV Staph aureus. 2. Cavitary pulmonary lesions. Embolic. 3. Pneumonia/parapneumonic effusion- MSSA. 4. Skin lesions which potentially could be embolic. 5. Leukocytosis secondary to infection. RECOMMENDATIONS 1. Continue IV Ancef. 2. Continue Vancomycin. 3. Continue Gentamycin. 4. Continue piperacillin/Tazobactam. 5. Monitor white blood cell count. 6. Monitor temp. 7. Monitor cultures. Slava Garcia MD Nov 18, 2016 12:30 Slava Garcia MD Nov 18, 2016 12:30
[2016-11-18] MEDS: LACTULOSE SYRUP 20 GM/30 ML CUP PO SCH (12:37)
[2016-11-18] MEDS ORDERED: PHARMACY ORDERED LAB ONE (13:45)
--- NOTE | 2016-11-18 16:33 | PD.CONS ---
Consult Service Palliative Care Consult Requested By Dr. Luque . Primary Care Physician No Primary Care Physician . Reason for Consultation a. To assist with evaluation and management of symptoms including: dyspnea b. To assist medical decision maker(s) with: better understanding of current medical conditions; weighing benefits/burdens of medical treatment options; making medical treatment decisions. . HPI History of Present Illness This 56-year-old male, with a past history of polysubstance abuse, presented to the emergency department on 11/13/16 after a couple weeks of progressive weakness , night sweats, and developing dyspnea. He did not have chest pain or reported syncope. In the emergency department, findings included: * Initial oxygen saturation 88% on room air, then 96% on 4 L * Temp 98.6, pulse 104, respirations 20, blood pressure 115/68 * White count 35,000, hemoglobin 12.6 * Sodium 126, creatinine 0.86, albumin 1.6 * Lactic acid 2.4 * Chest x-ray with a large cavitary lesion in the right midlung, and some nodules noted on the left * CT of the chest revealed multiple cavitary lesions bilateral and also some apparent adenopathy The patient was admitted, cultures were obtained, and he was begun on antibiotics. He became more dyspneic, and a thoracentesis was completed resulting in 1 L of dark fluid. That subsequently grew MSSA, and the blood cultures also returned MSSA. A pigtail catheter was put in the right chest, but on 11/14/16, the patient pulled that out. CHANDNI exam revealed a large vegetation on the aortic valve. On the morning of 11/16/16, the patient was alert and was beginning to ask for something to eat. However, later in the day he developed acute hypercapnic respiratory failure and was INTUBATED. Postintubation, he was still hypoxic, and a bronchoscopy found some thick mucus plugging and Flolan was also employed. The patient developed shock and has been on pressor drugs the past 24 hours. His white count as of today was 50.2, and albumin is down to 1.3. As the patient was declining, he was asked about a health care surrogate, and he named his landlord Kerrie and completed an HCS form. (However, now the family has arrived, Kerrie is declining to serve in that role and asks to be removed as the decision-maker.) Palliative Care was consulted to assist with symptom management, to identify the healthcare decision maker, and to enter into discussions with the family regarding the current illnesses, the prognosis, and the benefits and burdens of future treatment choices. . Function/Cognitive Trajectory The patient was reportedly functioning independently prior to the past couple weeks. . Review of Systems ROS Limitations: Clinical Condition, Intubated Constitutional: COMPLAINS OF: Diaphoretic episodes Endocrine: DENIES: Polyuria Eyes: DENIES: Eye inflammation Ears, nose, mouth, throat: DENIES: Epistaxis Respiratory: COMPLAINS OF: Cough, Shortness of breath Cardiovascular: COMPLAINS OF: Dyspnea on Exertion, DENIES: Chest pain, Syncope Gastrointestinal: DENIES: Bloody stools, Constipation, Diarrhea, Vomiting blood Genitourinary: DENIES: Hematuria Musculoskeletal: DENIES: Joint Swelling Integumentary: DENIES: Nail changes, Rash Hematologic/Lymphatics: DENIES: Bruising Immunologic/Allergic: DENIES: Urticaria Neurologic: DENIES: Seizures Psychiatric: COMPLAINS OF: Confusion, DENIES: Hallucinations, Agitation Past Family Social History Coded Allergies: No Known Allergies (Unverified , 11/13/16) Past Medical History * History of polysubstance abuse, but patient and subsequently his family have denied IV drug abuse . Past Surgical History No surgery prior to this hospitalization. Right thoracentesis 11/14/16 Right chest pigtail catheter insertion 11/14/16 . Reported Medications The patient was reportedly not on any prescription medicines at home. . Current Medications Medications (Trade) Dose Ordered Sig/Gaye Route Start Time Stop Time Status Last Admin (NS Flush) 2 ml UNSCH PRN IV FLUSH 11/13/16 17:15 (NS Flush) 2 ml BID IV FLUSH 11/13/16 21:00 11/17/16 21:49 Miscellaneous Information 1 Q361D XX 11/13/16 17:15 (Chlorhexidine 2% Cloth) 3 pack Taper DAILY@04 TOP 11/14/16 04:00 11/10/17 03:59 11/18/16 04:00 (Chlorhexidine 2% Cloth) 3 pack UNSCH PRN TOP 11/13/16 17:15 (Chinyere-Colace) 1 tab BID PO 11/13/16 21:00 11/17/16 21:00 (Zofran Inj) 4 mg Q6H PRN IV PUSH 11/14/16 06:30 11/14/16 06:52 (Morphine Inj) 2 mg Q3H PRN IV PUSH 11/14/16 09:00 11/14/16 12:32 (Protonix Inj) 40 mg BID IV 11/14/16 21:00 11/18/16 08:17 Polyethylene Glycol 17 gm 17 gm BID PO 11/14/16 21:00 11/18/16 08:17 (Ancef 2 Gm Premix) 50 ml @ 100 mls/hr Q8H IV 11/15/16 17:00 11/18/16 08:18 (Restoril) 15 mg HS PRN PO 11/15/16 21:00 (Reglan Inj) 10 mg Q8HR IV 11/16/16 14:00 11/18/16 12:37 Metoprolol Tartrate 5 mg 5 mg Q4HR IV PUSH 11/16/16 12:00 Hold 11/16/16 11:57 Pharmacy Profile Note 0 ml @ 0 mls/hr UNSCH OTHER 11/16/16 11:45 Piperacillin Sod/ Tazobactam Sod 100 ml @ 200 mls/hr Q8H IV 11/16/16 12:00 11/18/16 11:44 (Gentamicin 80 Mg Premix) 100 ml @ 200 mls/hr Q8H IV 11/16/16 16:00 11/18/16 08:19 Chlorhexidine Gluconate 15 ml 15 ml BID@08,20 MT 11/16/16 20:00 11/18/16 07:37 Propofol 100 ml @ 0 mls/hr TITRATE IV 11/16/16 16:30 11/18/16 12:51 (fentaNYL DRIP) 250 ml @ 0 mls/hr TITRATE IV 11/16/16 16:30 11/18/16 08:18 (NS Flush) DAILY IVF 11/17/16 09:00 11/17/16 08:40 (NS Flush) UNSCH PRN IVF 11/16/16 17:15 (Cardizem) 30 mg QID NG 11/16/16 18:00 Hold Terbutaline Sulfate 1 mg 1 mg UNSCH PRN SQ 11/16/16 17:15 Phenylephrine HCl 160 mg/Dextrose 500 ml @ 0 mls/hr TITRATE IV 11/16/16 18:00 11/17/16 21:48 Epoprostenol Sodium 100 ml/ Sodium Chloride 100 ml @ 8 mls/hr Q8H NEB 11/16/16 20:00 11/18/16 08:18 (Pitressin Inj/ D5W 100 ml Inj) 100 ml @ 1.5 mls/hr Q24H IV 11/16/16 21:57 11/16/16 23:05 Artificial Tears 1 drop 1 drop Q8HR EACH EYE 11/17/16 14:00 11/18/16 12:37 Pharmacy Profile Note 0 ml @ 0 mls/hr UNSCH OTHER 11/17/16 12:00 (Vancomycin Inj/ NS 250 ml Inj) 262.5 ml @ 250 mls/hr Q8H IV 11/17/16 14:00 11/18/16 05:05 (SoluCORTEF INJ) 50 mg Q6HR IV PUSH 11/18/16 12:00 11/18/16 11:44 (NovoLOG SUPPLEMENTAL SCALE) 1 Q6H SQ 11/18/16 11:00 (Vitamin B1) 100 mg DAILY PO 11/18/16 10:15 (Folate) 1 mg DAILY PO 11/18/16 10:15 (Theragran) 1 tab DAILY PO 11/18/16 10:15 (Heparin Inj) 5,000 units Q12HR SQ 11/18/16 21:00 (D50w (Vial) Inj) 25 ml UNSCH PRN IV PUSH 11/18/16 10:45 (Glucagon Inj) 1 mg UNSCH PRN OTHER 11/18/16 10:45 (Lactulose Liq) 30 ml DAILY PO 11/18/16 12:30 11/18/16 12:37 Miscellaneous Information SPECIFIC LAB TO BE [facility]... ONCE ONCE .XX 11/19/16 13:45 11/19/16 13:46 Family History The patient's father is of cardiac issues. His mother is present now in his room. No known family history of sepsis or diabetes. . Substance Use Tobacco: Long-term cigarette smoker, had reportedly quit 20 years ago but family reports he started again. Alcohol: Has used alcohol in excess in the past. Prescription med abuse: None reported Illicits: Has a history of cocaine and marijuana use, but reportedly preferring only marijuana in recent years. . Psychosocial History The patient was born in [place], but moved to [place] about 30 years ago. He has never been , but he has a 21-year-old son Adarsh Mohan living in [place] with his mother. 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 . 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 . Living Will: Never completed Health Care Surrogate: Copy in medical record Durable Power of Senior Electrical Project Manager: Never completed Health Care Surrogate(s): The patient lacks capacity for decision-making, and it seems unlikely that he will regain that capacity. Initially, he had named his landlord Kerrie Correa as healthcare surrogate on 11/14/16, but she makes it very clear by telephone [phone] on 11/18/16 that "since there is family around, I do not want to be the decision-maker for him in any way." I spoke with the patient's 21-year-old son Alexei Mohan [phone] in [place] by telephone, and he reports that he also does not want to be involved in the decision making; "he has not had any impact or played any role in my life, so that would not be appropriate for me to make decisions for him." Thus, the patient's mother Nellie Ying is his healthcare proxy decision-maker. Family/friends goals: The patient's family tells me they are "processing all of this bad news," and that they want to maintain his FULL CODE STATUS until they have time to consider this more and until we talk again tomorrow. The patient's mother and sister understand that the patient continues to worsen and that they may be facing a withdrawal of life support decision in the upcoming days. . Ethical and Legal Issues There are no ethical issues that would impact his care or decision-making at this time. The patient lacks capacity for decision-making, and it seems unlikely that he will regain that capacity. Initially, he had named his landlord Kerrie Correa as healthcare surrogate, but she makes it very clear by telephone [phone] on that "since there is family around, I do not want to be the decision- maker for him in any way." I spoke with the patient's 21-year-old son Alexei Mohan [phone] in [place] by telephone, and he reports that he also does not want to be involved in the decision making; "he has not had any impact or played any role in my life, so that would not be appropriate for me to make decisions for him." Thus, the patient's mother Nellie Ying is his healthcare proxy decision-maker. . Physical Exam Vital Signs Date Time Temp Pulse Resp B/P Pulse Ox O2 Delivery O2 Flow Rate FiO2 11/18/16 14:24 97 35 11/18/16 12:00 97.7 74 11 104/56 90 111/50 11/18/16 12:00 74 11/18/16 12:00 40 11/18/16 10:00 68 11/18/16 08:00 40 11/18/16 08:00 97.5 65 20 115/55 100 118/51 11/18/16 08:00 68 11/18/16 07:45 100 35 11/18/16 06:00 68 11/18/16 04:12 100 40 11/18/16 04:00 66 11/18/16 04:00 40 11/18/16 04:00 97.8 66 20 118/59 100 122/48 11/18/16 02:00 64 11/18/16 00:51 100 40 11/18/16 00:00 40 11/18/16 00:00 97.6 68 20 114/56 95 111/42 11/18/16 00:00 68 11/17/16 22:55 99 40 11/17/16 22:00 65 11/17/16 20:11 98 40 11/17/16 20:00 40 11/17/16 20:00 68 11/17/16 20:00 97.3 68 20 113/57 97 123/50 11/17/16 18:00 67 11/17/16 16:00 97.4 67 20 108/55 94 116/44 11/17/16 16:00 67 11/17/16 16:00 40 11/17/16 11/18/16 19:00 07:00 Intake Total 2418 ml 3229 ml Output Total 490 ml 755 ml Balance 1928 ml 2474 ml IV Total 2418 ml 3229 ml Output Urine Total 490 ml 525 ml Chest Tube Drainage Total 230 ml # Bowel Movements 0 0 Exam CONSTITUTIONAL/GENERAL: This is an adequately nourished patient, sedated, on the ventilator in [facility]. TUBES/LINES/DRAINS: Central line, endotracheal tube, Santana catheter SKIN: No jaundice, rashes. He has multiple small punctures and abrasions about his feet and ankles (reportedly from walking barefoot). No wounds seen anteriorly. Skin temperature appropriate. Not diaphoretic. HEAD: Atraumatic. Normocephalic. EYES: Pupils equal and round and reactive. No scleral icterus. No injection or drainage. Fundi not examined. ENT: Nose without bleeding or purulent drainage. NECK: Trachea midline. Supple, nontender. No palpable thyroid enlargement or nodularity. CARDIOVASCULAR: Regular rate and rhythm without murmurs, gallops, or rubs. No JVD. Peripheral pulses symmetric. RESPIRATORY/CHEST: Symmetric, unlabored respirations. Scattered rhonchi GASTROINTESTINAL: Abdomen soft, nondistended. No hepato-splenomegaly, or palpable masses. No guarding. Bowel sounds present. GENITOURINARY: Without palpable bladder distension. Santana catheter in place. MUSCULOSKELETAL: Extremities without clubbing, cyanosis, or edema. No joint tenderness or effusion noted. No mottling or clubbing. He has multiple small punctures and abrasions about his feet and ankles (reportedly from walking barefoot). LYMPHATICS: No palpable cervical or supraclavicular adenopathy. NEUROLOGICAL: Occasionally opens eyes slightly. Unresponsive to voice or painful stimulation. PSYCHIATRIC: Unable to assess due to clinical condition. . Diagnostic Tests Laboratory Laboratory Tests Test 11/15/16 11/16/16 11/16/16 11/16/16 21:19 06:01 17:46 18:30 Sodium Level 135 MEQ/L 134 MEQ/L (136-145) (136-145) Potassium Level 3.9 MEQ/L 4.0 MEQ/L (3.5-5.1) (3.5-5.1) Chloride Level 99 MEQ/L 102 MEQ/L (98-107) (98-107) Carbon Dioxide Level 28.1 MEQ/L 24.9 MEQ/L (21.0-32.0) (21.0-32.0) Anion Gap 8 MEQ/L (5-15) 7 MEQ/L (5-15) Blood Urea Nitrogen 13 MG/DL (7-18) 20 MG/DL (7-18) Creatinine 0.54 MG/DL 0.61 MG/DL (0.60-1.30) (0.60-1.30) Estimat Glomerular Filtration 158 ML/MIN 137 ML/MIN Rate (>89) (>89) Random Glucose 108 MG/DL 124 MG/DL (74-106) (74-106) Calcium Level 8.1 MG/DL 8.1 MG/DL (8.5-10.1) (8.5-10.1) Phosphorus Level 3.3 MG/DL 3.3 MG/DL (2.5-4.9) (2.5-4.9) Magnesium Level 2.4 MG/DL 2.3 MG/DL (1.5-2.5) (1.5-2.5) Troponin I 0.20 NG/ML (0.02-0.05) White Blood Count 39.4 TH/MM3 (4.0-11.0) Red Blood Count 3.56 MIL/MM3 (4.50-5.90) Hemoglobin 10.7 GM/DL (13.0-17.0) Hematocrit 33.4 % (39.0-51.0) Mean Corpuscular Volume 93.9 FL (80.0-100.0) Mean Corpuscular Hemoglobin 30.0 PG (27.0-34.0) Mean Corpuscular Hemoglobin 32.0 % Concent (32.0-36.0) Red Cell Distribution Width 14.5 % (11.6-17.2) Platelet Count 321 TH/MM3 (150-450) Mean Platelet Volume 7.6 FL (7.0-11.0) Neutrophils (%) (Auto) 92.4 % (16.0-70.0) Lymphocytes (%) (Auto) 3.0 % (9.0-44.0) Monocytes (%) (Auto) 4.3 % (0.0-8.0) Eosinophils (%) (Auto) 0.1 % (0.0-4.0) Basophils (%) (Auto) 0.2 % (0.0-2.0) Neutrophils # (Auto) 36.4 TH/MM3 (1.8-7.7) Lymphocytes # (Auto) 1.2 TH/MM3 (1.0-4.8) Monocytes # (Auto) 1.7 TH/MM3 (0-0.9) Eosinophils # (Auto) 0.0 TH/MM3 (0-0.4) Basophils # (Auto) 0.1 TH/MM3 (0-0.2) CBC Comment AUTO DIFF Differential Total Cells 100 Counted Neutrophils % (Manual) 70 % (16-70) Band Neutrophils % 13 % (0-6) Lymphocytes % 7 % (9-44) Monocytes % 6 % (0-8) Neutrophils # (Manual) 34.3 TH/MM3 (1.8-7.7) Myelocytes 4 % (0-0) Differential Comment FINAL DIFF MANUAL Toxic Granulation 1+ (NORMAL) Toxic Vacuolation PRESENT (NONE SEEN) Platelet Estimate NORMAL (NORMAL) Platelet Morphology Comment NORMAL (NORMAL) Blood Gas Puncture Site LT RADIAL LT RADIAL Blood Gas Patient Temperature 98.6 98.6 Blood Gas HCO3 26 mmol/L 26 mmol/L (22-26) (22-26) Blood Gas Base Excess -0.1 mmol/L -0.3 mmol/L (-2-2) (-2-2) Blood Gas Oxygen Saturation 91 % (90-100) 97 % (90-100) Arterial Blood pH 7.25 7.29 (7.380-7.420) (7.380-7.420) Arterial Blood Partial 62 mmHg (38-42) 55 mmHg (38-42) Pressure CO2 Arterial Blood Partial 86 mmHg 168 mmHg Pressure O2 (61-120) (61-120) Arterial Blood Oxygen Content 13.9 Vol % 14.7 Vol % (12.0-20.0) (12.0-20.0) Arterial Blood 1.2 % (0-4) 1.1 % (0-4) Carboxyhemoglobin Arterial Blood Methemoglobin 1.3 % (0-2) 1.1 % (0-2) Blood Gas Hemoglobin 10.8 G/DL 10.6 G/DL (12.0-16.0) (12.0-16.0) Oxygen Delivery Device VENTILATOR VENTILATOR Blood Gas Ventilator Setting SEE COMMENTS SEE COMMENTS Blood Gas Inspired Oxygen 100 % 100 % Test 7/1/17 7/1/17 7/1/17 7/2/17 20:00 21:07 22:00 03:30 Urine Color YELLOW (YELLW/STRAW) Urine Turbidity HAZY (CLEAR) Urine pH 6.0 (5.0-8.5) Urine Specific [place] 1.026 (1.002-1.035) Urine Protein 30 mg/dL (NEG-TRACE) Urine Glucose (UA) NEG mg/dL (NEG) Urine Ketones NEG mg/dL (NEG) Urine Occult Blood NEG (NEG) Urine Nitrite NEG (NEG) Urine Bilirubin NEG (NEG) Urine Urobilinogen 2.0 MG/DL (LESS THAN 2.0) Urine Leukocyte Esterase NEG (NEG) Urine RBC 1 /hpf (0-3) Urine WBC 6 /hpf (0-5) Urine Squamous Epithelial <1 /hpf (0-5) Cells Urine Granular Casts 3 /lpf (NONE) Urine White Blood Cell Casts 1 /lpf (NONE) Urine Mucus FEW /lpf (OCC) Microscopic Urinalysis Comment CULT NOT INDICATED Hepatitis A IgM Antibody NEGATIVE (NEGATIVE) Hepatitis B Surface Antigen NEGATIVE (NEGATIVE) Hepatitis B Core IgM Antibody NEGATIVE (NEGATIVE) Hepatitis C Antibody NEGATIVE (NEGATIVE) HIV (1&2) Antibody NEGATIVE (NEGATIVE) Bronchoalveolar Lavage WBC 422 /MM3 Bronchoalveolar Lavage RBC 56 /MM3 Bronchoalveolar Lavage 94 % Neutrophils Bronchoalveolar Lavage 4 % Lymphocytes Bronchoalveolar Lavage 2 % Histiocytes Lavage Fluid Total Volume 20.0 ML Lavage Fluid Total WBC Count 8.440 MILLION (4.700-7.100) White Blood Count 49.0 TH/MM3 (4.0-11.0) Red Blood Count 3.39 MIL/MM3 (4.50-5.90) Hemoglobin 10.2 GM/DL (13.0-17.0) Hematocrit 31.9 % (39.0-51.0) Mean Corpuscular Volume 94.2 FL (80.0-100.0) Mean Corpuscular Hemoglobin 30.2 PG (27.0-34.0) Mean Corpuscular Hemoglobin 32.1 % Concent (32.0-36.0) Red Cell Distribution Width 14.4 % (11.6-17.2) Platelet Count 340 TH/MM3 (150-450) Mean Platelet Volume 7.2 FL (7.0-11.0) Neutrophils (%) (Auto) 94.9 % (16.0-70.0) Lymphocytes (%) (Auto) 2.1 % (9.0-44.0) Monocytes (%) (Auto) 2.8 % (0.0-8.0) Eosinophils (%) (Auto) 0.1 % (0.0-4.0) Basophils (%) (Auto) 0.1 % (0.0-2.0) Neutrophils # (Auto) 46.4 TH/MM3 (1.8-7.7) Lymphocytes # (Auto) 1.0 TH/MM3 (1.0-4.8) Monocytes # (Auto) 1.4 TH/MM3 (0-0.9) Eosinophils # (Auto) 0.1 TH/MM3 (0-0.4) Basophils # (Auto) 0.1 TH/MM3 (0-0.2) CBC Comment AUTO DIFF Differential Total Cells 100 Counted Neutrophils % (Manual) 84 % (16-70) Band Neutrophils % 13 % (0-6) Lymphocytes % 1 % (9-44) Monocytes % 2 % (0-8) Neutrophils # (Manual) 47.5 TH/MM3 (1.8-7.7) Differential Comment FINAL DIFF MANUAL Platelet Estimate NORMAL (NORMAL) Platelet Morphology Comment NORMAL (NORMAL) Red Cell Morphology Comment NORMAL (NORMAL) Sodium Level 138 MEQ/L (136-145) Potassium Level 4.5 MEQ/L (3.5-5.1) Chloride Level 103 MEQ/L (98-107) Carbon Dioxide Level 26.1 MEQ/L (21.0-32.0) Anion Gap 9 MEQ/L (5-15) Blood Urea Nitrogen 24 MG/DL (7-18) Creatinine 0.74 MG/DL (0.60-1.30) Estimat Glomerular Filtration 110 ML/MIN Rate (>89) Random Glucose 146 MG/DL (74-106) Lactic Acid Level 1.2 mmol/L (0.4-2.0) Calcium Level 8.2 MG/DL (8.5-10.1) Phosphorus Level 4.1 MG/DL (2.5-4.9) Magnesium Level 2.4 MG/DL (1.5-2.5) Total Bilirubin 1.1 MG/DL (0.2-1.0) Aspartate Amino Transf 22 U/L (15-37) (AST/SGOT) Alanine Aminotransferase 22 U/L (12-78) (ALT/SGPT) Alkaline Phosphatase 142 U/L (45-117) Total Protein 6.1 GM/DL (6.4-8.2) Albumin 1.2 GM/DL (3.4-5.0) Test 11/17/16 11/17/16 11/18/16 11/18/16 05:46 07:28 03:45 13:45 Blood Gas Puncture Site ART LINE Blood Gas Patient Temperature 98.6 Blood Gas HCO3 24 mmol/L (22-26) Blood Gas Base Excess -0.8 mmol/L (-2-2) Blood Gas Oxygen Saturation 97 % (90-100) Arterial Blood pH 7.37 (7.380-7.420) Arterial Blood Partial 42 mmHg (38-42) Pressure CO2 Arterial Blood Partial 158 mmHg Pressure O2 (61-120) Arterial Blood Oxygen Content 14.6 Vol % (12.0-20.0) Arterial Blood 1.0 % (0-4) Carboxyhemoglobin Arterial Blood Methemoglobin 1.2 % (0-2) Blood Gas Hemoglobin 10.5 G/DL (12.0-16.0) Oxygen Delivery Device VENTILATOR Blood Gas Ventilator Setting SEE COMMENTS Blood Gas Inspired Oxygen 65 % Gentamicin Level Trough 0.9 MCG/ML (0.0-2.0) White Blood Count 50.2 TH/MM3 (4.0-11.0) Red Blood Count 3.35 MIL/MM3 (4.50-5.90) Hemoglobin 10.0 GM/DL (13.0-17.0) Hematocrit 31.7 % (39.0-51.0) Mean Corpuscular Volume 94.6 FL (80.0-100.0) Mean Corpuscular Hemoglobin 29.9 PG (27.0-34.0) Mean Corpuscular Hemoglobin 31.6 % Concent (32.0-36.0) Red Cell Distribution Width 15.2 % (11.6-17.2) Platelet Count 355 TH/MM3 (150-450) Mean Platelet Volume 7.2 FL (7.0-11.0) Neutrophils (%) (Auto) 93.8 % (16.0-70.0) Lymphocytes (%) (Auto) 2.7 % (9.0-44.0) Monocytes (%) (Auto) 3.4 % (0.0-8.0) Eosinophils (%) (Auto) 0.0 % (0.0-4.0) Basophils (%) (Auto) 0.1 % (0.0-2.0) Neutrophils # (Auto) 47.1 TH/MM3 (1.8-7.7) Lymphocytes # (Auto) 1.4 TH/MM3 (1.0-4.8) Monocytes # (Auto) 1.7 TH/MM3 (0-0.9) Eosinophils # (Auto) 0.0 TH/MM3 (0-0.4) Basophils # (Auto) 0.0 TH/MM3 (0-0.2) CBC Comment AUTO DIFF Differential Total Cells 100 Counted Neutrophils % (Manual) 83 % (16-70) Band Neutrophils % 15 % (0-6) Neutrophils # (Manual) 50.2 TH/MM3 (1.8-7.7) Metamyelocytes 2 % (0-1) Differential Comment FINAL DIFF MANUAL Toxic Granulation 1+ (NORMAL) Dohle Bodies PRESENT (NONE SEEN) Platelet Estimate NORMAL (NORMAL) Platelet Morphology Comment NORMAL (NORMAL) Prothrombin Time 10.5 SEC (9.8-11.6) Prothromb Time International 1.0 RATIO Ratio Activated Partial 27.2 SEC Thromboplast Time (24.3-30.1) Fibrinogen 589 mg/dL (227-377) Sodium Level 137 MEQ/L (136-145) Potassium Level 4.7 MEQ/L (3.5-5.1) Chloride Level 105 MEQ/L (98-107) Carbon Dioxide Level 24.0 MEQ/L (21.0-32.0) Anion Gap 8 MEQ/L (5-15) Blood Urea Nitrogen 28 MG/DL (7-18) Creatinine 0.71 MG/DL (0.60-1.30) Estimat Glomerular Filtration 115 ML/MIN Rate (>89) Random Glucose 152 MG/DL (74-106) Lactic Acid Level 1.3 mmol/L (0.4-2.0) Calcium Level 8.0 MG/DL (8.5-10.1) Phosphorus Level 4.1 MG/DL (2.5-4.9) Magnesium Level 2.5 MG/DL (1.5-2.5) Total Bilirubin 0.8 MG/DL (0.2-1.0) Aspartate Amino Transf 21 U/L (15-37) (AST/SGOT) Alanine Aminotransferase 16 U/L (12-78) (ALT/SGPT) Alkaline Phosphatase 108 U/L (45-117) Total Creatine Kinase 235 U/L (39-308) Troponin I 0.11 NG/ML (0.02-0.05) Total Protein 6.3 GM/DL (6.4-8.2) Albumin 1.3 GM/DL (3.4-5.0) Vancomycin Level Trough 17.5 MCG/ML (5.0-10.0) Result Diagram: 11/18/16 0345 11/18/16 0345 Microbiology Microbiology Date/Time Procedure Status Source Growth 11/15/16 21:10 Aerobic Blood Culture - Final Resulted Blood Peripheral Staphylococcus Aureus 11/15/16 21:10 Anaerobic Blood Culture - Preliminary Resulted Blood Peripheral NO GROWTH IN 3 DAYS 11/15/16 21:19 Aerobic Blood Culture - Preliminary Resulted Blood Peripheral Gram Positive Cocci 11/15/16 21:19 Anaerobic Blood Culture - Preliminary Resulted Blood Peripheral NO GROWTH IN 3 DAYS 11/16/16 16:40 Gram Stain - Final Complete Sputum Endotracheal 11/16/16 16:40 Sputum Culture - Final Complete Staphylococcus Aureus 11/16/16 22:00 Gram Stain - Final Resulted Bronchial Washings Right Upper Lobe 11/16/16 22:00 Bronchial Culture Resulted Bronchial Washings Right Upper Lobe Pending 11/16/16 22:00 Acid Fast Stain Received Bronchial Washings Right Upper Lobe Pending 11/16/16 22:00 Mycobacterial Culture Received Bronchial Washings Right Upper Lobe Pending 11/16/16 22:00 Fungal Smear - Final Resulted Bronchial Washings Right Upper Lobe NO FUNGAL ELEMENTS SEEN. 11/16/16 22:00 Fungal Culture Resulted Bronchial Washings Right Upper Lobe Pending Imaging Last Impressions Head CT 11/17/16 06 Signed Impressions: Service Date/Time: Thursday, November 17, 2016 10:39 - CONCLUSION: No significant change has occurred. Deven Urrutia MD Chest X-Ray 11/17/16 06 Signed Impressions: Service Date/Time: Thursday, November 17, 2016 03:36 - CONCLUSION: Diffuse airspace disease a large cavity in the right midlung zone is unchanged. Tubes and catheter are in good position. Sawyer Robertson MD Chest CT 11/16/16 0000 Signed Impressions: Service Date/Time: Wednesday, November 16, 2016 20:36 - CONCLUSION: 1. New right chest tube in the posterior superior right pleural space. There continues to be a moderate right pleural effusion primarily seen at the base. Some degree of loculation may be present inferiorly. The effusion does not layer posteriorly. There are scattered punctate areas of air within the pleural space inferiorly on the right. There is a solitary small area of air within the mild left pleural effusion. 2. Numerous irregular masses seen throughout both lungs some which are cavitary. These are nonspecific. Inflammatory masses needs be suspected. The multiplicity raises possibility of septic emboli. Agustin Price MD Abdomen X-Ray 11/15/16 0600 Signed Impressions: Service Date/Time: Tuesday, November 15, 2016 03:07 - CONCLUSION: Probable mild ileus involving loops of bowel on the left side. Reba Banerjee MD Abdomen/Pelvis CT 11/14/16 0000 Signed Impressions: Service Date/Time: October 09:55 - CONCLUSION: 1. Multiple loops of fluid-filled small bowel which are larger in caliber in comparison to yesterday's examination although not enlarged by size criteria. This may reflect mild enteritis versus developing mild adynamic ileus. 2. Persistent luminal narrowing at the gastroduodenal junction without definite focal mass. This is of uncertain clinical significance and likely reflects gastric contraction. Gastric mass/metastatic disease is not very likely based on appearance although it cannot be excluded. 3. 2 cm ill-defined hypodense lesion in the left renal mid pole with indeterminate density. Differential considerations include complex cyst versus metastatic disease in this patient with apparent diffuse metastatic disease in the chest. 4. Redemonstration of multiple bilateral cavitary masses at the lung bases with loculated right pleural effusion. Elder Long MD CT Angiography 11/13/16 1328 Signed Impressions: Service Date/Time: Sunday, November 13, 2016 15:50 - CONCLUSION: 1. Multiple cavitary lesions within both lungs with the largest measuring 9.5 cm in the right upper lobe. Differential diagnosis includes infectious and neoplastic etiologies. 2. Moderate sized right pleural effusion with adjacent compressive atelectasis and/or infiltrate. 3. Cardiomegaly and coronary artery calcifications. 4. Subcarinal mediastinal lymphadenopathy. 5. Degenerative changes throughout the thoracic spine. Jed Ponce MD Procedures Thoracentesis and right (pigtail) thoracostomy 11/14/16 INTUBATION 11/16/16 Bronchoscopy 11/16/16 . Patient/Family Conference Present at Family Conference: Patient's mother, sister Orquidea Ballard, and [id number] are present in the room initially. I also spoke on the telephone with his landlord Kerrie and the patient's son ALLYSSA Mohan. Family Conference Time (mins): 69 Family Conference Location: Bedside, Telephone Issues Discussed: * Palliative care role, purpose, approach * Additional medical, psychosocial, and spiritual history * Patients general health, functional status, and cognitive changes in the months leading up to the current hospitalization * Patient/family understanding of the current medical problems * Patient/family understanding of prognosis * Patients goals of care as best understood from advance directives and/or conversations and/or values * Current medical treatment options and benefits/burdens of those options * Likely scenarios comparing ongoing aggressive care with a transition to comfort measures only * Questions answered to the best of my ability * Palliative care contact information provided Assessment and Plan Disease Oriented Problem List: (1) respiratory failure (2) septic shock (3) MSSA sepsis (4) multiple pulmonary cavitary lesions (5) aortic valve endocarditis (6) aortic regurgitation Symptom Scale: (1) dyspnea 0-10 Scale: Unable to quantify (2) pain 0-10 Scale: Unable to quantify Pertinent Non-Medical Issues Psychosocial: Originally from [place], living here for 30 years. Never . One estranged son in [place]. 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 Legal: The patient lacks capacity for decision-making, and it seems unlikely that he will regain that capacity. Initially, he had named his landlord Kerrie Correa as healthcare surrogate, but she makes it very clear by telephone [phone] on 11/18/16 that "since there is family around, I do not want to be the decision-maker for him in any way." I spoke with the patient's 21-year-old son Alexei Mohan [phone] in [place] by telephone, and he reports that he also does not want to be involved in the decision making; "he has not had any impact or played any role in my life, so that would not be appropriate for me to make decisions for him." Thus, the patient's mother Nellie Ying is his healthcare proxy decision-maker. Ethical issues impacting care: None Important Contacts Mother: eNllie Ying <----> PROXY DECISION-MAKER -- [phone] Son: (estranged for many years) Adarsh Mohan [phone] . Prognosis The patient has multisystem organ failure and septic shock, and his overall prognosis is quite poor. . Code Status: Full Code Plan * FULL CODE * DECISION-MAKING: The patient lacks capacity for decision-making, and it seems unlikely that he will regain that capacity. Initially, he had named his landlord Kerrie Correa as healthcare surrogate, but she makes it very clear by telephone [phone] on 11/18/16 that "since there is family around, I do not want to be the decision-maker for him in any way." I spoke with the patient's 21-year-old son Alexei Mohan [phone] in [place] by telephone, and he reports that he also does not want to be involved in the decision making; "he has not had any impact or played any role in my life, so that would not be appropriate for me to make decisions for him." Thus, the patient's mother Nellie Ying is his healthcare proxy decision-maker. * GOALS: The patient's family tells me they are "processing all of this bad news," and that they want to maintain his FULL CODE STATUS until they have time to consider this more and until we talk again tomorrow. The patient's mother and sister understand that the patient continues to worsen and that they may be facing a withdrawal of life support decision in the upcoming days. * SYMPTOMS: Any pain or dyspnea is being managed by appropriate sedation in the ventilator, and I have no additional medication recommendations at this time. * Palliative Care will continue to follow the patient during this hospitalization. . Thank you for the opportunity to participate in the care of Mr. Mohan. Radha Carpenter MD Nov 18, 2016 16:33
[2016-11-18 16:44] LABS: M. TUBERCULOSIS PCR NOT DETECTED (NOT DETECT)
--- NOTE | 2016-11-18 19:58 | HHI.PR ---
Subjective Remarks Patient was intubated last night for acute hypoxemic resp failure and a right chest tube was placed for right hydroPTX in addition patient underwent bronch with BAL ( mucous plugs b/l suctioned to clear). He is sedated with Diprivan, Fentanyl. Patient is also on Neosyn, Vasopressin and Flolan. Awake, responds brother at Objective Vital Signs Vital Signs Date Time Temp Pulse Resp B/P Pulse Ox O2 Delivery O2 Flow Rate FiO2 11/18/16 18:00 82 11/18/16 16:00 83 11/18/16 16:00 40 11/18/16 16:00 97.7 82 17 125/64 96 126/52 11/18/16 14:24 97 35 11/18/16 14:00 85 11/18/16 12:00 97.7 74 11 104/56 90 111/50 11/18/16 12:00 74 11/18/16 12:00 40 11/18/16 10:00 68 11/18/16 08:00 40 11/18/16 08:00 97.5 65 20 115/55 100 118/51 11/18/16 08:00 68 11/18/16 07:45 100 35 11/18/16 06:00 68 11/18/16 04:12 100 40 11/18/16 04:00 66 11/18/16 04:00 40 11/18/16 04:00 97.8 66 20 118/59 100 122/48 11/18/16 02:00 64 11/18/16 00:51 100 40 11/18/16 00:00 40 11/18/16 00:00 97.6 68 20 114/56 95 111/42 11/18/16 00:00 68 11/17/16 22:55 99 40 11/17/16 22:00 65 11/17/16 20:11 98 40 11/17/16 20:00 40 11/17/16 20:00 68 11/17/16 20:00 97.3 68 20 113/57 97 123/50 I/O 11/17/16 11/17/16 11/17/16 11/18/16 11/18/16 11/18/16 07:00 15:00 23:00 07:00 15:00 23:00 Intake Total 2345 ml 2418 ml 1441 ml 1788 ml 1933 ml Output Total 698 ml 490 ml 350 ml 405 ml 650 ml Balance 1647 ml 1928 ml 1091 ml 1383 ml 1283 ml IV Total 2345 ml 2418 ml 1441 ml 1788 ml 1590 ml Tube Feeding 343 ml Output Urine Total 550 ml 490 ml 250 ml 275 ml 650 ml Chest Tube Drainage Total 148 ml 100 ml 130 ml # Bowel Movements 0 0 0 0 Result Diagram: 11/18/1634411/18/16344 Objective Remarks GENERAL: Patient is 56 yo critically ill intubated , sedated and on pressors. SKIN: Warm and dry. HEAD: Normocephalic. EYES: No scleral icterus. No injection or drainage. NECK: Supple, trachea midline. No JVD or lymphadenopathy. CARDIOVASCULAR: Regular rate and rhythm without murmurs, gallops, or rubs. RESPIRATORY: Breath sounds equal bilaterally. No accessory muscle use. GASTROINTESTINAL: Abdomen soft, non-tender, nondistended. MUSCULOSKELETAL: No cyanosis, or edema. Neuro: Sedated and intubated A/P Assessment and Plan 1VDRF 2)Septic shock 3)Staph Aureus bacteremia 4)Empyema 6)Endocarditis involving AV 7)Leucocytosis 8)Cavitary pulm masses 2nd staph Aureus 9)Right hydroPTX PLAN: Continue with vent support keep sat >92% Bronchodilators, ICU vent bundle, on stress dose steroids- HC 100mg IV Q8 On PRVC/AC 20/520/1.10/10, 40% On Flolan nebs ( 30,0000 ng/ml) 8ml/hr s/p bronch with BAL and right chest tube placement 11/16- Monitor chest tube drainage Continue with pressors ( Neosyn, Vaso) monitor HR and BP keep MAP>65mmHg Abx per ID ( On Ancef, Zosyn, Gent)monitor for signs of infections ( Fever, WBC ) Follow up on BAL results/cx CTS is following- no intervention at this time. Chest tube to suction Emmett Bolton MD Nov 18, 2016 19:58
[2016-11-18] MEDS: HEPARIN SODIUM - SQ 10,000 UNITS/ML VIAL SQ SCH (21:05)
[2016-11-18] MEDS: VASOPRESSIN INJ 40 UNITS in DEXTROSE 5% IN WATER 100ML INJ 98 ML IV SCH ×2 (21:57)
[2016-11-19] VITALS (58 sets, daily range): BP systolic 109–178; BP diastolic 49–82; PULSE 89–111; RESP 7–50; TEMP 98.1–99.4; O2SAT 92–100
[2016-11-19] MEDS: ceFAZolin 2 GM PREMIX 50 ML IV SCH ×3 (00:55→16:50)
[2016-11-19] MEDS: PROPOFOL 1000 MG/100 ML INJ 100 ML IV SCH ×3 (03:59→21:19)
[2016-11-19] MEDS: PIPERACIL-TAZO 4.5 GM PREMIX 100 ML IV SCH (03:59)
[2016-11-19] MEDS: CHLORHEXIDINE GLUCONATE 2 % 1 PACK (2 CLOTHS) TOP SCH (04:00)
[2016-11-19] MEDS: RESP: ALBUTEROL 2.5 MG/IPRATROPIUM 0.5 MG NEB (SCH) INH ×4 (04:30→21:04)
[2016-11-19 04:33] LABS: AUTOMATED NEUTROPHIL # 28.7 TH/MM3 (1.8-7.7); BASOPHIL # 0.1 TH/MM3 (0-0.2); BASOPHIL % 0.3 % (0.0-2.0); HEMATOCRIT 28.9 % (39.0-51.0); LYMPH % 2.5 % (9.0-44.0); LYMPHOCYTE # 0.8 TH/MM3 (1.0-4.8); MEAN CELL VOLUME 95.1 FL (80.0-100.0); MEAN CORPUSCULAR HEMOGLOBIN 30.6 PG (27.0-34.0); MEAN CORPUSCULAR HGB CONC 32.2 % (32.0-36.0); MONO % 2.9 % (0.0-8.0); NEUT % 94.3 % (16.0-70.0); PLATELET COUNT 314 TH/MM3 (150-450); RED BLOOD COUNT 3.03 MIL/MM3 (4.50-5.90); RED CELL DISTRIBUTION WIDTH 14.9 % (11.6-17.2); WHITE BLOOD COUNT 30.4 TH/MM3 (4.0-11.0)
[2016-11-19 04:37] LABS: HEMO FLAGS AUTO DIFF
[2016-11-19] MEDS: INSULIN ASPART SUPPLEMENTAL SCALE SQ SCH ×4 (05:00→22:28)
[2016-11-19 05:01] LABS: BICARBONATE 30.5 MEQ/L (21.0-32.0); POTASSIUM 4.4 MEQ/L (3.5-5.1)
[2016-11-19] MEDS: VANCOMYCIN INJ 1,250 MG in SODIUM CHLOR 0.9% 250 ML INJ 250 ML IV SCH ×3 (05:56→22:28)
[2016-11-19] MEDS: ARTIFICIAL TEARS OPTH SOLN 15 ML BTL EACH EYE SCH ×3 (05:56→22:28)
[2016-11-19] MEDS: EPOPROSTENOL NEB SOLUTION 50 NG/KG/MIN 100 ML NEB SCH ×2 (05:56)
[2016-11-19] MEDS: METOCLOPRAMIDE HCL 10 MG/2 ML VIAL IV SCH ×3 (05:58→22:28)
[2016-11-19] MEDS: HYDROCORTISONE SOD SUCCINATE 100 MG VIAL IV PUSH SCH ×3 (05:59→16:50)
[2016-11-19 07:15] LABS: BANDS 7 % (0-6); NEUTROPHIL # MANUAL DIFF 29.2 TH/MM3 (1.8-7.7); POLYS (SEG NEUTROPHILS) 89 % (16-70); WBC DIFF SAMPLE 100
[2016-11-19 07:16] LABS: SCAN/DIFF FINAL DIFF MANUAL
[2016-11-19] MEDS: CHLORHEXIDINE 0.12% (ORAL KIT) 15 ML CUP MT SCH ×2 (07:25→21:12)
[2016-11-19] MEDS: GENTAMICIN/SOD CHL 80 MG/100 ML IV SCH ×2 (07:58→16:50)
--- NOTE | 2016-11-19 08:38 | HHI.CCPN ---
Subjective Remarks/Hospital Course 56-year-old male is brought to the emergency department by EMS for evaluation of generalized weakness, confusion for about 2 weeks, and also increasing shortness of breath. His oxygen saturation was 88% on room air. EMS administered breathing treatments and Solu-Medrol 125 mg 1 and placed him on nasal cannula. Patient states that he had been sick for almost 10 days, but he is a poor historian. He had a productive cough, but reports no hematemesis or weight loss. He states that it was his neighbor who made him called EMS. He has no past medical history and last time had seen a doctor was about 15 years ago. He denies any fevers but reports some night sweats and chills. He was tachycardic with a heart rate of 115 bpm, had severe leukocytosis with a white count of 35,000 with 91% neutrophils. CMP shows hyponatremia with a sodium of 126. Lactic acid is 2.4. His Chest x-ray shows large 7.7 x 7.8 cm cavitary right midlung lesion with associated right-sided pleural effusion. Subcentimeter left mid lung pulmonary nodules. Patient received 1 L normal saline bolus and Zosyn 4.5 g and Zithromax 500 mg IV and was placed on TB/ respiratory isolation. He has been being in snf 2 years ago increasing his risk of tuberculosis. CT pulmonary angiogram negative for PE but showed multiple cavitary lesions within both lungs with the largest measuring 9.5 cm in the right upper lobe. Moderate size right pleural effusion. I evaluated the patient in the emergency department. Patient appears critically ill in moderate distress mildly tachypneic, sweating. I performed a bedside ultrasound which showed a right effusion which is large. The thoracentesis was performed and 1 L of cloudy dark pleural fluid was removed. Patient will be continued on Zosyn and Levaquin and vancomycin. ID consulted and I discussed with Dr. Steele-she recommended no empiric treatments for TB. 11/14/16: Patient seen and examined complaints of severe epigastric and periumbilical abdominal pain. Patient remains oriented to person. His white count is slightly improved from 35,000-28,9000. Na improved to 136. I have ordered a STAT CT abd/pelvis with IV contrast. Chest x-ray shows reaccumulation of right pleural effusion-fluid chemistries are pending but cell count indicates at least a parapneumonic effusion and patient will need a pigtail chest tube 11/15: Patient pulled his right-sided pigtail catheter out overnight last night. Currently nasal cannula in no acute distress. Afebrile. Continues to have a leukocytosis. 11/16: Currently on room air. Hold out his IVs reportedly overnight last night. Requesting diet. Awake and alert and following commands. Subjective 11/17: Intubated yesterday due to acute hypercapnic respiratory failure. Hypoxic post intubation requiring right chest tube placement, bronchoscopy and Flolan. Bronchoscopy revealed thick mucous plugging at bilateral right and left mainstem which were clear. Improved oxygenation over the past 12 hours. Afebrile. 11/18 Patient remains sedated with Diprivan, Fentanyl and intubated. On Vasopressin and Neosyn 120 mics. 11/19 Patient is sedated with Diprivan, Fentanyl and intubated. Afebrile. Off all pressors. Afebrile. WBC is trending down 30 today from 50. Objective Vital Signs Date Time Temp Pulse Resp B/P Pulse Ox O2 Delivery O2 Flow Rate FiO2 11/19/16 06:00 89 20 109/58 94 120/54 11/19/16 04:31 35 11/19/16 04:00 98.2 11/16/16 08:09 Nasal Cannula 5.00 Intake and Output 11/18/16 11/18/16 11/19/16 08:00 16:00 00:00 Intake Total 1788 ml 1933 ml 1387 ml Output Total 405 ml 650 ml 700.0 ml Balance 1383 ml 1283 ml 687.0 ml Result Diagram: 11/19/16 0335 11/19/16 0335 Other Results Laboratory Tests Test 11/18/16 11/18/16 11/19/16 12:45 13:45 03:35 M. tuberculosis Complex DNA NOT DETECTED (PCR) Vancomycin Level Trough 17.5 MCG/ML White Blood Count 30.4 TH/MM3 Red Blood Count 3.03 MIL/MM3 Hemoglobin 9.3 GM/DL Hematocrit 28.9 % Mean Corpuscular Volume 95.1 FL Mean Corpuscular Hemoglobin 30.6 PG Mean Corpuscular Hemoglobin 32.2 % Concent Red Cell Distribution Width 14.9 % Platelet Count 314 TH/MM3 Mean Platelet Volume 7.2 FL Neutrophils (%) (Auto) 94.3 % Lymphocytes (%) (Auto) 2.5 % Monocytes (%) (Auto) 2.9 % Eosinophils (%) (Auto) 0.0 % Basophils (%) (Auto) 0.3 % Neutrophils # (Auto) 28.7 TH/MM3 Lymphocytes # (Auto) 0.8 TH/MM3 Monocytes # (Auto) 0.9 TH/MM3 Eosinophils # (Auto) 0.0 TH/MM3 Basophils # (Auto) 0.1 TH/MM3 CBC Comment AUTO DIFF Differential Total Cells 100 Counted Neutrophils % (Manual) 89 % Band Neutrophils % 7 % Monocytes % 4 % Neutrophils # (Manual) 29.2 TH/MM3 Differential Comment FINAL DIFF MANUAL Sodium Level 144 MEQ/L Potassium Level 4.4 MEQ/L Chloride Level 109 MEQ/L Carbon Dioxide Level 30.5 MEQ/L Anion Gap 5 MEQ/L Blood Urea Nitrogen 27 MG/DL Creatinine 0.75 MG/DL Estimat Glomerular Filtration 108 ML/MIN Rate Random Glucose 121 MG/DL Calcium Level 8.3 MG/DL Imaging Last Impressions Head CT 11/17/16599 Signed Impressions: Service Date/Time: Thursday, November 17, 2016 10:39 - CONCLUSION: No significant change has occurred. Deven Urrutia MD Chest X-Ray 11/17/16 06 Signed Impressions: Service Date/Time: Thursday, November 17, 2016 03:36 - CONCLUSION: Diffuse airspace disease a large cavity in the right midlung zone is unchanged. Tubes and catheter are in good position. Sawyer Robertson MD Chest CT 11/16/16 0000 Signed Impressions: Service Date/Time: Wednesday, November 16, 2016 20:36 - CONCLUSION: 1. New right chest tube in the posterior superior right pleural space. There continues to be a moderate right pleural effusion primarily seen at the base. Some degree of loculation may be present inferiorly. The effusion does not layer posteriorly. There are scattered punctate areas of air within the pleural space inferiorly on the right. There is a solitary small area of air within the mild left pleural effusion. 2. Numerous irregular masses seen throughout both lungs some which are cavitary. These are nonspecific. Inflammatory masses needs be suspected. The multiplicity raises possibility of septic emboli. Agustin Price MD Abdomen X-Ray 11/15/16 0600 Signed Impressions: Service Date/Time: Tuesday, November 15, 2016 03:07 - CONCLUSION: Probable mild ileus involving loops of bowel on the left side. Reba Banerjee MD Abdomen/Pelvis CT 11/14/16 0000 Signed Impressions: Service Date/Time: October 09:55 - CONCLUSION: 1. Multiple loops of fluid-filled small bowel which are larger in caliber in comparison to yesterday's examination although not enlarged by size criteria. This may reflect mild enteritis versus developing mild adynamic ileus. 2. Persistent luminal narrowing at the gastroduodenal junction without definite focal mass. This is of uncertain clinical significance and likely reflects gastric contraction. Gastric mass/metastatic disease is not very likely based on appearance although it cannot be excluded. 3. 2 cm ill-defined hypodense lesion in the left renal mid pole with indeterminate density. Differential considerations include complex cyst versus metastatic disease in this patient with apparent diffuse metastatic disease in the chest. 4. Redemonstration of multiple bilateral cavitary masses at the lung bases with loculated right pleural effusion. Elder Long MD CT Angiography 11/13/16 1328 Signed Impressions: Service Date/Time: Sunday, November 13, 2016 15:50 - CONCLUSION: 1. Multiple cavitary lesions within both lungs with the largest measuring 9.5 cm in the right upper lobe. Differential diagnosis includes infectious and neoplastic etiologies. 2. Moderate sized right pleural effusion with adjacent compressive atelectasis and/or infiltrate. 3. Cardiomegaly and coronary artery calcifications. 4. Subcarinal mediastinal lymphadenopathy. 5. Degenerative changes throughout the thoracic spine. Jed Ponce MD Objective Remarks GENERAL: 86-year-old male, critically ill currently orotracheally intubated SKIN: Warm and dry. Scattered skin lesions erythematous predominantly left lower extremity HEAD: Normocephalic and atraumatic. EYES: No injection, drainage. Pupils equally round and reactive around 3 Diego 's bilaterally 2 mm. ENT: No nasal drainage noted. Oropharynx is clear. NECK: Supple. No JVD or thyromegaly or lymphadenopathy. Left IJ is clean dry and intact CARDIOVASCULAR: Tachycardic, RR. S1, S2. No S4. Surprisingly aortic regurgitation murmur not appreciated. RESPIRATORY: Diminished breath sounds right lower lobe. Bilateral mild expiratory wheezing and few crackles. Right chest tube is clean dry and intact. GASTROINTESTINAL: Abdomen is soft, no rebound or guarding on examination. Hypoactive bowel sounds are appreciated MUSCULOSKELETAL: Mild swelling of bilateral ankles. Multiple erythematous raised lesions on bilateral lower extremity predominantly left lower leg NEUROLOGICAL: Currently sedated on the ventilator propofol and fentanyl ventilator synchrony. Prior to intubation, moving all 4 extremity spontaneously interactive.. Date of Insertion: Nov 16, 2016 Line: Central Venous Catheter Side: Left Location: Internal, Jugular A/P Assessment and Plan NEURO/PSYCH: Metabolic encephalopathy On Diprivan and Fentanyl infusion for sedation/analgesia while intubated Goal of RA SS -[address] head 11/17 revealed no acute intracranial findings currently no signs of gross embolic events On Thiamine/MVI/Folic acid RESP: Bilateral cavitary lung lesions/most likely cavitating pneumonia from staph aureus Daily respiratory failure Large right loculated pleural effusion/empyema PRVC 20/520/1.05/28/34 Continue with vent support keep sat >92%. Decrease PEEP: 5 Duo nebs every 4 hours with albuterol nebs every 2 hours. Vent bundle. Start SBT daily as tiki. Flolan currently at 30,000 ng/ml at 8ml/hr nebs, Wean off Flolan Right-sided chest tube #28 English- monitor CT drainage( Drained 220 ml) - Right thoracentesis with 1 L cloudy yellow fluid removed, fluid cell studies WBC 2,600, - Patient status post pigtail catheter placement 11/14, 445 cc prior pulled out 11/15. Evaluated by Dr. Samuels/CT surgery. Per his recommendations, No indication for decortication at this time CV: Sinus tachycardia Aortic valve endocarditis Atrial fibrillation with RVR early normal sinus rhythm Elevated troponin - likely rate dependent Off all pressors monitor HR and BP keep MAP>65mmHg - Stress dose steroids- Hydrocortisone 50mg IV Q6 2-D echocardiogram revealed EF 55-60%. Moderate AR. CHANDNI revealed 17 mm x 17 millimeter mobile mass on aortic valve - CT surgery consult. Recommendations no intervention at this time GI: Acute abdominal pain - resolving Hypoalbuminemia Continue tube feeds with Glucerna 1.5 goal 55 cc an hour. IV Protonix for GI prophylaxis Chinyere-Colace and MiraLAX for bowel regimen Reglan for bowel motility - CT of the abdomen pelvis with IV contrast revealed possible ileus., Gastric contraction at gastric duodenal junction. 2 mm renal cyst. - KUB 11/15 revealed improving mild ileus. GI is following. : Monitor renal function, I/O's, electrolytes replacement per protocol. Diurese with Bumex 1mg x1 ID: Severe sepsis Multilobar cavitating pneumonia secondary staph aureus Staph aureus empyema - Continue with abx per ID ( IV Vanco, Ancef, Zosyn, Gent) monitor for signs of infections ( Fever, WBC) WBC is trending down Pertinent cultures 11/13 - blood cultures 2 - staph aureus 11/13 and 11/14- pleural fluid- staph aureus 11/14- sputum- staph aureus 11/15 - blood cultures 2 - pending 11/16 - Broch samples: Staph Aureus 11/16 Sputum: Staph Aureus HEME: Leukocytosis Normocytic anemia - Monitor CBC, CMP, coags ENDO: SSI with accuchecks for glycemic control TSH 0.6. PROPH: - Bilateral lower extremity SCDs. Heaprin SQ, IV Protonix for prophylaxis LINES: - Left IJ CVP, Right Femoral Art line placed 11/16 Palliative care is following Care time 30 minutes. Noam Calhoun MD Nov 19, 2016 08:38
[2016-11-19] MEDS: SODIUM CHLORIDE 0.9% FLUSH 10 ML FLUSH IV FLUSH SCH ×2 (09:00→21:13)
[2016-11-19] MEDS: SODIUM CHLORIDE 0.9% FLUSH 10 ML FLUSH IVF SCH (09:00)
[2016-11-19] MEDS ORDERED: BUMETANIDE INJ 1 MG/4 ML VIAL IV PUSH ONE (09:00)
[2016-11-19] MEDS: DOCUSATE SODIUM 50 MG/SENNA 8.6 MG TAB PO SCH ×2 (09:00→21:00)
[2016-11-19] MEDS: HEPARIN SODIUM - SQ 10,000 UNITS/ML VIAL SQ SCH ×2 (09:54→21:13)
[2016-11-19] MEDS: PANTOPRAZOLE SODIUM 40 MG VIAL IV SCH ×2 (09:54→21:13)
[2016-11-19] MEDS: THIAMINE HCL 100 MG TAB PO SCH (09:55)
[2016-11-19] MEDS: LACTULOSE SYRUP 20 GM/30 ML CUP PO SCH (09:55)
[2016-11-19] MEDS: MULTIVITAMIN TAB PO SCH (09:55)
[2016-11-19] MEDS: FOLIC ACID 1 MG TAB PO SCH (09:55)
[2016-11-19] MEDS: POLYETHYLENE GLYCOL 17 GM PKG PO SCH ×2 (09:57→21:00)
--- NOTE | 2016-11-19 11:16 | HHI.HCPN ---
Reason for visit a. To assist with evaluation and management of symptoms including: dyspnea b. To assist medical decision maker(s) with: better understanding of current medical conditions; weighing benefits/burdens of medical treatment options; making medical treatment decisions. . Subjective/Interval History INTERVAL NOTE: The patient is seen in the C and follow-up to reevaluate dyspnea and possible pain. The patient remains on the ventilator, but he has been removed from all pressors and is maintaining a reasonable blood pressure. He seems to be ventilating on his own somewhat now. His white count has gone from 50 back down to 30. At the time I am seeing him, he does not appear to be obviously dyspneic and does not appear to be in pain. . Family/friend interactions Discussed by telephone with the patient's mother Nellie. . Advance Directives Living Will: Never completed Health Care Surrogate: Copy in medical record Durable Power of Weigh Machine Operator: Never completed Advance Directive Specifics Health Care Surrogate(s): The patient lacks capacity for decision-making, and it seems unlikely that he will regain that capacity. Initially, he had named his landlord Kerrie Correa as healthcare surrogate on 11/14/16, but she makes it very clear by telephone [phone] on 11/18/16 that "since there is family around, I do not want to be the decision-maker for him in any way." I spoke with the patient's 21-year-old son Alexei Mohan [phone] in [place] by telephone, and he reports that he also does not want to be involved in the decision making; "he has not had any impact or played any role in my life, so that would not be appropriate for me to make decisions for him." Thus, the patient's mother Nellie Ying is his healthcare proxy decision-maker. Objective Vital Signs Date Time Temp Pulse Resp B/P Pulse Ox O2 Delivery O2 Flow Rate FiO2 11/19/16 08:53 97 35 11/19/16 08:00 104 11/19/16 08:00 40 11/19/16 08:00 98.2 94 20 117/58 93 130/57 11/19/16 06:00 89 20 109/58 94 120/54 11/19/16 06:00 89 11/19/16 05:45 90 20 109/55 93 123/55 7/4/17 05:30 93 38 113/55 95 125/55 7/4/17 05:15 103 35 124/62 100 156/76 7//17 05:00 99 7 121/58 96 138/63 7/4/17 04:45 99 32 129/63 98 148/66 7/4/17 04:31 99 35 7/4/17 04:30 98 23 117/61 99 126/54 7/4/17 04:30 98 23 117/61 99 126/54 7/4/17 04:15 98 24 121/64 97 130/55 7/4/17 04:00 99 17 04:00 98.2 99 22 121/67 98 135/58 7//17 04:00 99 27 121/67 98 135/58 7//17 04:00 40 /17 03:45 97 23 122/62 97 132/57 7/4/17 03:30 96 22 120/63 98 130/56 7//17 03:15 96 28 121/64 97 133/57 7//17 03:00 95 22 118/61 99 126/54 7//17 02:45 98 24 122/63 99 131/56 7/4/17 02:30 96 23 119/60 99 129/56 7/4/17 02:15 94 23 117/59 98 125/54 7//17 02:00 96 27 119/63 99 128/55 7/4/17 02:00 96 17 01:45 95 22 119/60 99 127/55 7/4/17 01:40 98 35 //17 01:30 94 20 117/57 98 123/53 7/4/17 01:15 92 19 113/59 97 118/51 7/4/17 01:00 95 21 116/57 98 121/52 7/4/17 00:45 95 23 118/58 97 121/52 7/4/17 00:30 102 27 121/62 99 133/56 7/4/17 00:15 96 21 122/59 97 124/53 7/4/17 00:00 98 /4/17 00:00 98 24 126/64 99 129/56 7/4/17 00:00 98 24 126/64 99 129/56 7/4/17 00:00 40 11/19/16 00:00 98.9 98 21 126/64 99 129/56 11/18/16 23:45 97 22 127/61 96 128/56 11/18/16 23:30 103 23 142/77 98 155/65 11/18/16 23:15 91 19 122/66 96 125/55 11/18/16 23:00 91 18 120/63 96 123/54 11/18/16 22:45 91 19 121/63 96 122/54 11/18/16 22:30 90 21 121/66 94 122/55 11/18/16 22:15 94 24 124/70 98 132/57 11/18/16 22:00 90 11/18/16 22:00 90 21 113/59 97 115/48 11/18/16 21:45 91 20 116/61 98 117/49 11/18/16 21:30 90 17 114/57 96 114/47 11/18/16 21:15 92 20 117/55 95 114/47 11/18/16 21:00 95 22 122/59 96 123/51 11/18/16 20:45 92 22 117/58 97 115/47 11/18/16 20:30 103 27 144/67 99 140/58 11/18/16 20:15 89 20 115/58 99 118/51 11/18/16 20:10 99 35 11/18/16 20:00 98.6 95 20 127/65 98 128/56 11/18/16 20:00 40 11/18/16 20:00 95 20 127/65 98 128/54 11/18/16 20:00 95 11/18/16 18:00 82 11/18/16 16:00 83 11/18/16 16:00 40 11/18/16 16:00 97.7 82 17 125/64 96 126/52 11/18/16 14:24 97 35 11/18/16 14:00 85 11/18/16 12:00 97.7 74 11 104/56 90 111/50 11/18/16 12:00 74 11/18/16 12:00 40 Intake & Output 11/19/16 11/19/16 07:00 19:00 Intake Total 2908 ml Output Total 1495.0 ml Balance 1413.0 ml IV Total 2123 ml Tube Feeding 665 ml Other 120 ml Output Urine Total 1275 ml Tube Feeding Residual Discard 0 ml Chest Tube Drainage Total 220 ml # Bowel Movements 1 Physical Exam CONSTITUTIONAL/GENERAL: This is an adequately nourished patient, sedated, on the ventilator [place] [facility] TUBES/LINES/DRAINS: Central line, endotracheal tube, Santana catheter SKIN: No jaundice, rashes. He has multiple small punctures and abrasions about his feet and ankles (reportedly from walking barefoot). No wounds seen anteriorly. Skin temperature appropriate. Not diaphoretic. NECK: Trachea midline. Supple, nontender. No palpable thyroid enlargement or nodularity. CARDIOVASCULAR: Regular rate and rhythm without murmurs, gallops, or rubs. No JVD. Peripheral pulses symmetric. RESPIRATORY/CHEST: Symmetric, unlabored respirations. Scattered rhonchi GASTROINTESTINAL: Abdomen soft, nondistended. No hepato-splenomegaly, or palpable masses. No guarding. Bowel sounds present. GENITOURINARY: Without palpable bladder distension. Santana catheter in place. MUSCULOSKELETAL: Extremities without clubbing, cyanosis, or edema. No joint tenderness or effusion noted. No mottling or clubbing. He has multiple small punctures and abrasions about his feet and ankles (reportedly from walking barefoot). NEUROLOGICAL: Occasionally opens eyes slightly. Unresponsive to voice or painful stimulation. PSYCHIATRIC: Unable to assess due to clinical condition. . Diagnostic Tests Laboratory Laboratory Tests Test 11/16/16 11/16/16 11/16/16 11/16/16 17:46 18:30 20:00 21:07 Blood Gas Puncture Site LT RADIAL LT RADIAL Blood Gas Patient Temperature 98.6 98.6 Blood Gas HCO3 26 mmol/L 26 mmol/L (22-26) (22-26) Blood Gas Base Excess -0.1 mmol/L -0.3 mmol/L (-2-2) (-2-2) Blood Gas Oxygen Saturation 91 % (90-100) 97 % (90-100) Arterial Blood pH 7.25 7.29 (7.380-7.420) (7.380-7.420) Arterial Blood Partial 62 mmHg (38-42) 55 mmHg (38-42) Pressure CO2 Arterial Blood Partial 86 mmHg 168 mmHg Pressure O2 (61-120) (61-120) Arterial Blood Oxygen Content 13.9 Vol % 14.7 Vol % (12.0-20.0) (12.0-20.0) Arterial Blood 1.2 % (0-4) 1.1 % (0-4) Carboxyhemoglobin Arterial Blood Methemoglobin 1.3 % (0-2) 1.1 % (0-2) Blood Gas Hemoglobin 10.8 G/DL 10.6 G/DL (12.0-16.0) (12.0-16.0) Oxygen Delivery Device VENTILATOR VENTILATOR Blood Gas Ventilator Setting SEE COMMENTS SEE COMMENTS Blood Gas Inspired Oxygen 100 % 100 % Urine Color YELLOW (YELLW/STRAW) Urine Turbidity HAZY (CLEAR) Urine pH 6.0 (5.0-8.5) Urine Specific [place] 1.026 (1.002-1.035) Urine Protein 30 mg/dL (NEG-TRACE) Urine Glucose (UA) NEG mg/dL (NEG) Urine Ketones NEG mg/dL (NEG) Urine Occult Blood NEG (NEG) Urine Nitrite NEG (NEG) Urine Bilirubin NEG (NEG) Urine Urobilinogen 2.0 MG/DL (LESS THAN 2.0) Urine Leukocyte Esterase NEG (NEG) Urine RBC 1 /hpf (0-3) Urine WBC 6 /hpf (0-5) Urine Squamous Epithelial <1 /hpf (0-5) Cells Urine Granular Casts 3 /lpf (NONE) Urine White Blood Cell Casts 1 /lpf (NONE) Urine Mucus FEW /lpf (OCC) Microscopic Urinalysis Comment CULT NOT INDICATED Hepatitis A IgM Antibody NEGATIVE (NEGATIVE) Hepatitis B Surface Antigen NEGATIVE (NEGATIVE) Hepatitis B Core IgM Antibody NEGATIVE (NEGATIVE) Hepatitis C Antibody NEGATIVE (NEGATIVE) HIV (1&2) Antibody NEGATIVE (NEGATIVE) Test 11/16/16 11/17/16 11/17/16 11/17/16 22:00 03:30 05:46 07:28 Bronchoalveolar Lavage WBC 422 /MM3 Bronchoalveolar Lavage RBC 56 /MM3 Bronchoalveolar Lavage 94 % Neutrophils Bronchoalveolar Lavage 4 % Lymphocytes Bronchoalveolar Lavage 2 % Histiocytes Lavage Fluid Total Volume 20.0 ML Lavage Fluid Total WBC Count 8.440 MILLION (4.700-7.100) White Blood Count 49.0 TH/MM3 (4.0-11.0) Red Blood Count 3.39 MIL/MM3 (4.50-5.90) Hemoglobin 10.2 GM/DL (13.0-17.0) Hematocrit 31.9 % (39.0-51.0) Mean Corpuscular Volume 94.2 FL (80.0-100.0) Mean Corpuscular Hemoglobin 30.2 PG (27.0-34.0) Mean Corpuscular Hemoglobin 32.1 % Concent (32.0-36.0) Red Cell Distribution Width 14.4 % (11.6-17.2) Platelet Count 340 TH/MM3 (150-450) Mean Platelet Volume 7.2 FL (7.0-11.0) Neutrophils (%) (Auto) 94.9 % (16.0-70.0) Lymphocytes (%) (Auto) 2.1 % (9.0-44.0) Monocytes (%) (Auto) 2.8 % (0.0-8.0) Eosinophils (%) (Auto) 0.1 % (0.0-4.0) Basophils (%) (Auto) 0.1 % (0.0-2.0) Neutrophils # (Auto) 46.4 TH/MM3 (1.8-7.7) Lymphocytes # (Auto) 1.0 TH/MM3 (1.0-4.8) Monocytes # (Auto) 1.4 TH/MM3 (0-0.9) Eosinophils # (Auto) 0.1 TH/MM3 (0-0.4) Basophils # (Auto) 0.1 TH/MM3 (0-0.2) CBC Comment AUTO DIFF Differential Total Cells 100 Counted Neutrophils % (Manual) 84 % (16-70) Band Neutrophils % 13 % (0-6) Lymphocytes % 1 % (9-44) Monocytes % 2 % (0-8) Neutrophils # (Manual) 47.5 TH/MM3 (1.8-7.7) Differential Comment FINAL DIFF MANUAL Platelet Estimate NORMAL (NORMAL) Platelet Morphology Comment NORMAL (NORMAL) Red Cell Morphology Comment NORMAL (NORMAL) Sodium Level 138 MEQ/L (136-145) Potassium Level 4.5 MEQ/L (3.5-5.1) Chloride Level 103 MEQ/L (98-107) Carbon Dioxide Level 26.1 MEQ/L (21.0-32.0) Anion Gap 9 MEQ/L (5-15) Blood Urea Nitrogen 24 MG/DL (7-18) Creatinine 0.74 MG/DL (0.60-1.30) Estimat Glomerular Filtration 110 ML/MIN Rate (>89) Random Glucose 146 MG/DL (74-106) Lactic Acid Level 1.2 mmol/L (0.4-2.0) Calcium Level 8.2 MG/DL (8.5-10.1) Phosphorus Level 4.1 MG/DL (2.5-4.9) Magnesium Level 2.4 MG/DL (1.5-2.5) Total Bilirubin 1.1 MG/DL (0.2-1.0) Aspartate Amino Transf 22 U/L (15-37) (AST/SGOT) Alanine Aminotransferase 22 U/L (12-78) (ALT/SGPT) Alkaline Phosphatase 142 U/L (45-117) Total Protein 6.1 GM/DL (6.4-8.2) Albumin 1.2 GM/DL (3.4-5.0) Blood Gas Puncture Site ART LINE Blood Gas Patient Temperature 98.6 Blood Gas HCO3 24 mmol/L (22-26) Blood Gas Base Excess -0.8 mmol/L (-2-2) Blood Gas Oxygen Saturation 97 % (90-100) Arterial Blood pH 7.37 (7.380-7.420) Arterial Blood Partial 42 mmHg (38-42) Pressure CO2 Arterial Blood Partial 158 mmHg Pressure O2 (61-120) Arterial Blood Oxygen Content 14.6 Vol % (12.0-20.0) Arterial Blood 1.0 % (0-4) Carboxyhemoglobin Arterial Blood Methemoglobin 1.2 % (0-2) Blood Gas Hemoglobin 10.5 G/DL (12.0-16.0) Oxygen Delivery Device VENTILATOR Blood Gas Ventilator Setting SEE COMMENTS Blood Gas Inspired Oxygen 65 % Gentamicin Level Trough 0.9 MCG/ML (0.0-2.0) Test 11/18/16 11/18/16 11/18/16 11/19/16 03:45 12:45 13:45 03:35 White Blood Count 50.2 TH/MM3 30.4 TH/MM3 (4.0-11.0) (4.0-11.0) Red Blood Count 3.35 MIL/MM3 3.03 MIL/MM3 (4.50-5.90) (4.50-5.90) Hemoglobin 10.0 GM/DL 9.3 GM/DL (13.0-17.0) (13.0-17.0) Hematocrit 31.7 % 28.9 % (39.0-51.0) (39.0-51.0) Mean Corpuscular Volume 94.6 FL 95.1 FL (80.0-100.0) (80.0-100.0) Mean Corpuscular Hemoglobin 29.9 PG 30.6 PG (27.0-34.0) (27.0-34.0) Mean Corpuscular Hemoglobin 31.6 % 32.2 % Concent (32.0-36.0) (32.0-36.0) Red Cell Distribution Width 15.2 % 14.9 % (11.6-17.2) (11.6-17.2) Platelet Count 355 TH/MM3 314 TH/MM3 (150-450) (150-450) Mean Platelet Volume 7.2 FL 7.2 FL (7.0-11.0) (7.0-11.0) Neutrophils (%) (Auto) 93.8 % 94.3 % (16.0-70.0) (16.0-70.0) Lymphocytes (%) (Auto) 2.7 % 2.5 % (9.0-44.0) (9.0-44.0) Monocytes (%) (Auto) 3.4 % (0.0-8.0) 2.9 % (0.0-8.0) Eosinophils (%) (Auto) 0.0 % (0.0-4.0) 0.0 % (0.0-4.0) Basophils (%) (Auto) 0.1 % (0.0-2.0) 0.3 % (0.0-2.0) Neutrophils # (Auto) 47.1 TH/MM3 28.7 TH/MM3 (1.8-7.7) (1.8-7.7) Lymphocytes # (Auto) 1.4 TH/MM3 0.8 TH/MM3 (1.0-4.8) (1.0-4.8) Monocytes # (Auto) 1.7 TH/MM3 0.9 TH/MM3 (0-0.9) (0-0.9) Eosinophils # (Auto) 0.0 TH/MM3 0.0 TH/MM3 (0-0.4) (0-0.4) Basophils # (Auto) 0.0 TH/MM3 0.1 TH/MM3 (0-0.2) (0-0.2) CBC Comment AUTO DIFF AUTO DIFF Differential Total Cells 100 100 Counted Neutrophils % (Manual) 83 % (16-70) 89 % (16-70) Band Neutrophils % 15 % (0-6) 7 % (0-6) Neutrophils # (Manual) 50.2 TH/MM3 29.2 TH/MM3 (1.8-7.7) (1.8-7.7) Metamyelocytes 2 % (0-1) Differential Comment FINAL DIFF FINAL DIFF MANUAL MANUAL Toxic Granulation 1+ (NORMAL) Dohle Bodies PRESENT (NONE SEEN) Platelet Estimate NORMAL (NORMAL) Platelet Morphology Comment NORMAL (NORMAL) Prothrombin Time 10.5 SEC (9.8-11.6) Prothromb Time International 1.0 RATIO Ratio Activated Partial 27.2 SEC Thromboplast Time (24.3-30.1) Fibrinogen 589 mg/dL (227-377) Sodium Level 137 MEQ/L 144 MEQ/L (136-145) (136-145) Potassium Level 4.7 MEQ/L 4.4 MEQ/L (3.5-5.1) (3.5-5.1) Chloride Level 105 MEQ/L 109 MEQ/L (98-107) (98-107) Carbon Dioxide Level 24.0 MEQ/L 30.5 MEQ/L (21.0-32.0) (21.0-32.0) Anion Gap 8 MEQ/L (5-15) 5 MEQ/L (5-15) Blood Urea Nitrogen 28 MG/DL (7-18) 27 MG/DL (7-18) Creatinine 0.71 MG/DL 0.75 MG/DL (0.60-1.30) (0.60-1.30) Estimat Glomerular Filtration 115 ML/MIN 108 ML/MIN Rate (>89) (>89) Random Glucose 152 MG/DL 121 MG/DL (74-106) (74-106) Lactic Acid Level 1.3 mmol/L (0.4-2.0) Calcium Level 8.0 MG/DL 8.3 MG/DL (8.5-10.1) (8.5-10.1) Phosphorus Level 4.1 MG/DL (2.5-4.9) Magnesium Level 2.5 MG/DL (1.5-2.5) Total Bilirubin 0.8 MG/DL (0.2-1.0) Aspartate Amino Transf 21 U/L (15-37) (AST/SGOT) Alanine Aminotransferase 16 U/L (12-78) (ALT/SGPT) Alkaline Phosphatase 108 U/L (45-117) Total Creatine Kinase 235 U/L (39-308) Troponin I 0.11 NG/ML (0.02-0.05) Total Protein 6.3 GM/DL (6.4-8.2) Albumin 1.3 GM/DL (3.4-5.0) M. tuberculosis Complex DNA NOT DETECTED (PCR) (NOT DETECT) Vancomycin Level Trough 17.5 MCG/ML (5.0-10.0) Monocytes % 4 % (0-8) Result Diagram: 11/19/16 0335 11/19/16 0335 Microbiology Microbiology Date/Time Procedure Status Source Growth 11/16/16 16:40 Gram Stain - Final Complete Sputum Endotracheal 11/16/16 16:40 Sputum Culture - Final Complete Staphylococcus Aureus 11/16/16 22:00 Gram Stain - Final Resulted Bronchial Washings Right Upper Lobe 11/16/16 22:00 Bronchial Culture - Preliminary Resulted Staphylococcus Aureus 11/16/16 22:00 Acid Fast Stain Worksheet Bronchial Washings Right Upper Lobe Pending 11/16/16 22:00 Mycobacterial Culture Worksheet Bronchial Washings Right Upper Lobe Pending 11/16/16 22:00 Fungal Smear - Final Resulted Bronchial Washings Right Upper Lobe NO FUNGAL ELEMENTS SEEN. 11/16/16 22:00 Fungal Culture Resulted Bronchial Washings Right Upper Lobe Pending Imaging Last Impressions Head CT 11/17/16 0600 Signed Impressions: Service Date/Time: Thursday, November 17, 2016 10:39 - CONCLUSION: No significant change has occurred. Deven Urrutia MD Chest X-Ray 11/17/16 0600 Signed Impressions: Service Date/Time: Thursday, November 17, 2016 03:36 - CONCLUSION: Diffuse airspace disease a large cavity in the right midlung zone is unchanged. Tubes and catheter are in good position. Sawyer Robertson MD Chest CT 11/16/16 0000 Signed Impressions: Service Date/Time: Wednesday, November 16, 2016 20:36 - CONCLUSION: 1. New right chest tube in the posterior superior right pleural space. There continues to be a moderate right pleural effusion primarily seen at the base. Some degree of loculation may be present inferiorly. The effusion does not layer posteriorly. There are scattered punctate areas of air within the pleural space inferiorly on the right. There is a solitary small area of air within the mild left pleural effusion. 2. Numerous irregular masses seen throughout both lungs some which are cavitary. These are nonspecific. Inflammatory masses needs be suspected. The multiplicity raises possibility of septic emboli. Agustin Price MD Abdomen X-Ray 11/15/16 0600 Signed Impressions: Service Date/Time: Tuesday, November 15, 2016 03:07 - CONCLUSION: Probable mild ileus involving loops of bowel on the left side. Reba Banerjee MD Abdomen/Pelvis CT 11/14/16 0000 Signed Impressions: Service Date/Time: October 09:55 - CONCLUSION: 1. Multiple loops of fluid-filled small bowel which are larger in caliber in comparison to yesterday's examination although not enlarged by size criteria. This may reflect mild enteritis versus developing mild adynamic ileus. 2. Persistent luminal narrowing at the gastroduodenal junction without definite focal mass. This is of uncertain clinical significance and likely reflects gastric contraction. Gastric mass/metastatic disease is not very likely based on appearance although it cannot be excluded. 3. 2 cm ill-defined hypodense lesion in the left renal mid pole with indeterminate density. Differential considerations include complex cyst versus metastatic disease in this patient with apparent diffuse metastatic disease in the chest. 4. Redemonstration of multiple bilateral cavitary masses at the lung bases with loculated right pleural effusion. Elder Long MD CT Angiography 11/13/16 1328 Signed Impressions: Service Date/Time: Sunday, November 13, 2016 15:50 - CONCLUSION: 1. Multiple cavitary lesions within both lungs with the largest measuring 9.5 cm in the right upper lobe. Differential diagnosis includes infectious and neoplastic etiologies. 2. Moderate sized right pleural effusion with adjacent compressive atelectasis and/or infiltrate. 3. Cardiomegaly and coronary artery calcifications. 4. Subcarinal mediastinal lymphadenopathy. 5. Degenerative changes throughout the thoracic spine. Jed Ponce MD Procedures Thoracentesis and right (pigtail) thoracostomy 11/14/16 INTUBATION 11/16/16 Bronchoscopy 11/16/16 . 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 Never . One estranged son in [place]. Spiritual: The patient is not and has not ever been spiritual or muslim person according to the family, but the family does want the billing department supervisor to continue to come and visit. Legal: The patient lacks capacity for decision-making, and it seems unlikely that he will regain that capacity. Initially, he had named his landlord Kerrie Correa as healthcare surrogate, but she makes it very clear by telephone [phone] on 11/18/16 that "since there is family around, I do not want to be the decision-maker for him in any way." I spoke with the patient's 21-year-old son Alexei Mohan [phone] in [place] by telephone, and he reports that he also does not want to be involved in the decision making; "he has not had any impact or played any role in my life, so that would not be appropriate for me to make decisions for him." Thus, the patient's mother Nellie Ying is his healthcare proxy decision-maker. Ethical issues impacting care: None . Important Contacts Mother: Nellie Ying <----> PROXY DECISION-MAKER -- [phone] Son: (estranged for many years) Adarsh Mohan [phone] . Prognosis The patient has multisystem organ failure and septic shock with a large vegetation on his aortic valve, and his overall prognosis is quite poor. . Code Status: Full Code Plan * FULL CODE * DECISION-MAKING: The patient lacks capacity for decision-making, and it seems unlikely that he will regain that capacity. Initially, he had named his landlord Kerrie Correa as healthcare surrogate, but she makes it very clear by telephone [phone] on 11/18/16 that "since there is family around, I do not want to be the decision-maker for him in any way." I spoke with the patient's 21-year-old son Alexei Mohan [phone] in [place] by telephone, and he reports that he also does not want to be involved in the decision making; "he has not had any impact or played any role in my life, so that would not be appropriate for me to make decisions for him." Thus, the patient's mother Nellie Ying is his healthcare proxy decision-maker. * GOALS: The patient's family tells me they are "processing all of this bad news," and that they want to maintain his FULL CODE STATUS for now. The patient 's mother and sister understand that the patient may still worsen and that they may be facing a withdrawal of life support decision at some point in time. * SYMPTOMS: Any pain or dyspnea is being managed by appropriate sedation and the ventilator, and I have no additional medication recommendations at this time. * Palliative Care will continue to follow the patient during this hospitalization. . Time Spent Total Floor Time (mins): 39 Face to Face Time (mins): 12 >50% Counseling/Coord of Care: Yes (d/w RN) Attestation To help prompt me to consider important information that might be impacting today's encounter and assessment, information from prior notes written by myself or my colleagues may have been "brought forward" into today's note. My signature on this note, however, is an attestation that I personally performed the exam, history, and/or decision-making noted today, and, unless otherwise indicated, the interactions with patient, family, and staff as well as the review of records all occurred today. I also attest that the listed assessment and stated plan reflect my best clinical judgment today based on the combination of historical information, prior notes, and today's exam/ interactions. When time spent is documented, it refers only to time spent today by the signer, or if indicated, combined time spent today by collaborating physician/nurse practitioner. Radha Carpenter MD Nov 19, 2016 11:16
--- NOTE | 2016-11-19 11:21 | HHI.IDPN ---
Note Infectious Disease Note Patient intubated. On the vent. Has r. chest tube. Sedated. Awakens when sedation is lifted. Afebrile. Off Neosynephrine. BP stable. Large vegetation on AV and moderate aortic regurg on CHANDNI. Culture of blood 11/13, 11/15, 11/16. - Staph aureus. Culture of pleural fluid 11/14 - staph aureus. Presented to the emergency department with a 2-week history of weakness. He was noted to have low oxygen saturation. He reported that he had productive cough over the past couple of weeks and was experiencing shortness of breath. ALLERGIES NO KNOWN DRUG ALLERGIES. Current Medications Medications (Trade) Dose Ordered Sig/Gaye Route PRN Reason Start Time Stop Time Status Last Admin Dose Admin Sodium Chloride (NS Flush) 2 ml UNSCH PRN IV FLUSH FLUSH AFTER USING IV ACCESS 11/13/16 17:15 Sodium Chloride (NS Flush) 2 ml BID IV FLUSH 11/13/16 21:00 11/18/16 20:10 Miscellaneous Information 1 Q361D XX 11/13/16 17:15 Chlorhexidine Gluconate (Chlorhexidine 2% Cloth) Taper DAILY@04 TOP 11/14/16 04:00 11/10/17 03:59 11/18/16 04:00 Chlorhexidine Gluconate (Chlorhexidine 2% Cloth) 3 pack UNSCH PRN TOP HYGIENIC CARE 11/13/16 17:15 Senna/Docusate Sodium (Chinyere-Colace) 1 tab BID PO 11/13/16 21:00 11/19/16 09:00 Ondansetron HCl (Zofran Inj) 4 mg Q6H PRN IV PUSH NAUSEA 11/14/16 06:30 11/14/16 06:52 Morphine Sulfate (Morphine Inj) 2 mg Q3H PRN IV PUSH pain 5-10 11/14/16 09:00 11/14/16 12:32 Pantoprazole Sodium (Protonix Inj) 40 mg BID IV 11/14/16 21:00 11/19/16 09:54 Polyethylene Glycol 17 gm 17 gm BID PO 11/14/16 21:00 11/19/16 09:57 Cefazolin Sodium/ Dextrose (Ancef 2 Gm Premix) 50 ml @ 100 mls/hr Q8H IV 11/15/16 17:00 11/19/16 07:58 Temazepam (Restoril) 15 mg HS PRN PO sleep 11/15/16 21:00 Metoclopramide HCl (Reglan Inj) 10 mg Q8HR IV 11/16/16 14:00 11/19/16 05:58 Metoprolol Tartrate 5 mg 5 mg Q4HR IV PUSH 11/16/16 12:00 Hold 11/16/16 11:57 Pharmacy Profile Note 0 ml @ 0 mls/hr UNSCH OTHER 11/16/16 11:45 Piperacillin Sod/ Tazobactam Sod 100 ml @ 200 mls/hr Q8H IV 11/16/16 12:00 11/19/16 03:59 Gentamicin Sulfate/Sodium Chloride (Gentamicin 80 Mg Premix) 100 ml @ 200 mls/hr Q8H IV 11/16/16 16:00 11/19/16 07:58 Chlorhexidine Gluconate 15 ml 15 ml BID@08,20 MT 11/16/16 20:00 11/19/16 07:25 Propofol 100 ml @ 0 mls/hr TITRATE IV 11/16/16 16:30 11/19/16 03:59 Fentanyl Citrate (fentaNYL DRIP) 250 ml @ 0 mls/hr TITRATE IV 11/16/16 16:30 11/18/16 23:49 Sodium Chloride (NS Flush) DAILY IVF 11/17/16 09:00 11/17/16 08:40 Sodium Chloride (NS Flush) UNSCH PRN IVF SEE PROTOCOL 11/16/16 17:15 Diltiazem HCl (Cardizem) 30 mg QID NG 11/16/16 18:00 Hold Terbutaline Sulfate 1 mg 1 mg UNSCH PRN SQ For Extravasation 11/16/16 17:15 Phenylephrine HCl 160 mg/Dextrose 500 ml @ 0 mls/hr TITRATE IV 11/16/16 18:00 11/17/16 21:48 Epoprostenol Sodium 100 ml/ Sodium Chloride 100 ml @ 8 mls/hr Q8H NEB 11/16/16 20:00 11/19/16 11:59 11/19/16 05:56 Vasopressin/ Dextrose (Pitressin Inj/ D5W 100 ml Inj) 100 ml @ 1.5 mls/hr Q24H IV 11/16/16 21:57 11/16/16 23:05 Artificial Tears 1 drop 1 drop Q8HR EACH EYE 11/17/16 14:00 11/19/16 05:56 Pharmacy Profile Note 0 ml @ 0 mls/hr UNSCH OTHER 11/17/16 12:00 Vancomycin HCl/ Sodium Chloride (Vancomycin Inj/ NS 250 ml Inj) 262.5 ml @ 250 mls/hr Q8H IV 11/17/16 14:00 11/19/16 05:56 Hydrocortisone Sodium Succinate (SoluCORTEF INJ) 50 mg Q6HR IV PUSH 11/18/16 12:00 11/19/16 05:59 Insulin Aspart (NovoLOG SUPPLEMENTAL SCALE) 1 Q6H SQ 11/18/16 11:00 Thiamine HCl (Vitamin B1) 100 mg DAILY PO 11/18/16 10:15 11/19/16 09:55 Folic Acid (Folate) 1 mg DAILY PO 11/18/16 10:15 11/19/16 09:55 Multivitamins (Theragran) 1 tab DAILY PO 11/18/16 10:15 11/19/16 09:55 Heparin Sodium (Porcine) (Heparin Inj) 5,000 units Q12HR SQ 11/18/16 21:00 11/19/16 09:54 Dextrose (D50w (Vial) Inj) 25 ml UNSCH PRN IV PUSH HYPOGLYCEMIA - SEE COMMENTS 11/18/16 10:45 Glucagon (Glucagon Inj) 1 mg UNSCH PRN OTHER HYPOGLYCEMIA-SEE COMMENTS 11/18/16 10:45 Lactulose (Lactulose Liq) 30 ml DAILY PO 11/18/16 12:30 11/19/16 09:55 Miscellaneous Information SPECIFIC LAB TO BE [facility]... ONCE ONCE .XX 11/19/16 13:45 11/19/16 13:46 Epoprostenol Sodium 80 ml/ Sodium Chloride 100 ml @ 8 mls/hr Q8H [facility] 11/19/16 12:00 11/19/16 19:59 Epoprostenol Sodium 60 ml/ Sodium Chloride 100 ml @ 8 mls/hr Q8H NEB 11/19/16 20:00 11/20/16 03:59 Epoprostenol Sodium 40 ml/ Sodium Chloride 100 ml @ 8 mls/hr Q8H [facility] 11/20/16 04:00 11/20/16 11:59 Epoprostenol Sodium/Sodium Chloride (Flolan (30,000 Ng/ml) Neb/NS Inj) 100 ml @ 8 mls/hr Q8H NEB 11/20/16 12:00 11/20/16 19:59 OBJECTIVE: Vital Signs Date Time Temp Pulse Resp B/P Pulse Ox O2 Delivery O2 Flow Rate FiO2 11/19/16 08:53 97 35 11/19/16 08:00 104 11/19/16 08:00 40 11/19/16 08:00 98.2 94 20 117/58 93 130/57 11/19/16 06:00 89 20 109/58 94 120/54 11/19/16 06:00 89 11/19/16 05:45 90 20 109/55 93 123/55 11/19/16 05:30 93 38 113/55 95 125/55 11/19/16 05:15 103 35 124/62 100 156/76 11/19/16 05:00 99 7 121/58 96 138/63 11/19/16 04:45 99 32 129/63 98 148/66 11/19/16 04:31 99 35 11/19/16 04:30 98 23 117/61 99 126/54 11/19/16 04:30 98 23 117/61 99 126/54 11/19/16 04:15 98 24 121/64 97 130/55 11/19/16 04:00 99 11/19/16 04:00 98.2 99 22 121/67 98 135/58 11/19/16 04:00 99 27 121/67 98 135/58 11/19/16 04:00 40 11/19/16 03:45 97 23 122/62 97 132/57 11/19/16 03:30 96 22 120/63 98 130/56 11/19/16 03:15 96 28 121/64 97 133/57 11/19/16 03:00 95 22 118/61 99 126/54 11/19/16 02:45 98 24 122/63 99 131/56 11/19/16 02:30 96 23 119/60 99 129/56 11/19/16 02:15 94 23 117/59 98 125/54 11/19/16 02:00 96 27 119/63 99 128/55 11/19/16 02:00 96 11/19/16 01:45 95 22 119/60 99 127/55 7/4/17 01:40 98 35 7/4/17 01:30 94 20 117/57 98 123/53 7/4/17 01:15 92 19 113/59 97 118/51 7/4/17 01:00 95 21 116/57 98 121/52 7/4/17 00:45 95 23 118/58 97 121/52 7/4/17 00:30 102 27 121/62 99 133/56 7/4/17 00:15 96 21 122/59 97 124/53 7/4/17 00:00 98 /4/17 00:00 98 24 126/64 99 129/56 7/4/17 00:00 98 24 126/64 99 129/56 7/4/17 00:00 40 7//17 00:00 98.9 98 21 126/64 99 129/56 7/3/17 23:45 97 22 127/61 96 128/56 7/3/17 23:30 103 23 142/77 98 155/65 7//17 23:15 91 19 122/66 96 125/55 7/3/17 23:00 91 18 120/63 96 123/54 7/3/17 22:45 91 19 121/63 96 122/54 7/3/17 22:30 90 21 121/66 94 122/55 7/3/17 22:15 94 24 124/70 98 132/57 7/3/17 22:00 90 11/18/17 22:00 90 21 113/59 97 115/48 7/3/17 21:45 91 20 116/61 98 117/49 7/3/17 21:30 90 17 114/57 96 114/47 7/3/17 21:15 92 20 117/55 95 114/47 7/3/17 21:00 95 22 122/59 96 123/51 7/3/17 20:45 92 22 117/58 97 115/47 7/3/17 20:30 103 27 144/67 99 140/58 7/3/17 20:15 89 20 115/58 99 118/51 7/3/17 20:10 99 35 7/3/17 20:00 98.6 95 20 127/65 98 128/56 7/3/17 20:00 40 7/3/17 20:00 95 20 127/65 98 128/54 7/3/17 20:00 95 11/18/16 18:00 82 11/18/16 16:00 83 11/18/16 16:00 40 11/18/16 16:00 97.7 82 17 125/64 96 126/52 11/18/16 14:24 97 35 11/18/16 14:00 85 11/18/16 12:00 97.7 74 11 104/56 90 111/50 11/18/16 12:00 74 11/18/16 12:00 40 11/18/16 11/18/16 11/19/16 15:00 23:00 07:00 Intake Total 1933 ml 1387 ml 1521 ml Output Total 650 ml 700 ml 795 ml Balance 1283 ml 687 ml 726 ml IV Total 1590 ml 1083 ml 1040 ml Tube Feeding 343 ml 244 ml 421 ml Other 60 ml 60 ml Output Urine Total 650 ml 650 ml 625 ml Tube Feeding Residual Discard 0 ml 0 ml Chest Tube Drainage Total 50 ml 170 ml # Bowel Movements 0 1 Laboratory Tests Test 11/18/16 11/19/16 03:45 03:35 White Blood Count 50.2 TH/MM3 30.4 TH/MM3 Red Blood Count 3.35 MIL/MM3 3.03 MIL/MM3 Hemoglobin 10.0 GM/DL 9.3 GM/DL Hematocrit 31.7 % 28.9 % Mean Corpuscular Volume 94.6 FL 95.1 FL Mean Corpuscular Hemoglobin 29.9 PG 30.6 PG Mean Corpuscular Hemoglobin 31.6 % 32.2 % Concent Red Cell Distribution Width 15.2 % 14.9 % Platelet Count 355 TH/MM3 314 TH/MM3 Mean Platelet Volume 7.2 FL 7.2 FL Neutrophils (%) (Auto) 93.8 % 94.3 % Lymphocytes (%) (Auto) 2.7 % 2.5 % Monocytes (%) (Auto) 3.4 % 2.9 % Eosinophils (%) (Auto) 0.0 % 0.0 % Basophils (%) (Auto) 0.1 % 0.3 % Neutrophils # (Auto) 47.1 TH/MM3 28.7 TH/MM3 Lymphocytes # (Auto) 1.4 TH/MM3 0.8 TH/MM3 Monocytes # (Auto) 1.7 TH/MM3 0.9 TH/MM3 Eosinophils # (Auto) 0.0 TH/MM3 0.0 TH/MM3 Basophils # (Auto) 0.0 TH/MM3 0.1 TH/MM3 CBC Comment AUTO DIFF AUTO DIFF Differential Total Cells 100 100 Counted Neutrophils % (Manual) 83 % 89 % Band Neutrophils % 15 % 7 % Neutrophils # (Manual) 50.2 TH/MM3 29.2 TH/MM3 Metamyelocytes 2 % Differential Comment FINAL DIFF FINAL DIFF MANUAL MANUAL Toxic Granulation 1+ Dohle Bodies PRESENT Platelet Estimate NORMAL Platelet Morphology Comment NORMAL Monocytes % 4 % Laboratory Tests Test 11/18/16 11/19/16 03:45 03:35 Sodium Level 137 MEQ/L 144 MEQ/L Potassium Level 4.7 MEQ/L 4.4 MEQ/L Chloride Level 105 MEQ/L 109 MEQ/L Carbon Dioxide Level 24.0 MEQ/L 30.5 MEQ/L Anion Gap 8 MEQ/L 5 MEQ/L Blood Urea Nitrogen 28 MG/DL 27 MG/DL Creatinine 0.71 MG/DL 0.75 MG/DL Estimat Glomerular Filtration 115 ML/MIN 108 ML/MIN Rate Random Glucose 152 MG/DL 121 MG/DL Lactic Acid Level 1.3 mmol/L Calcium Level 8.0 MG/DL 8.3 MG/DL Phosphorus Level 4.1 MG/DL Magnesium Level 2.5 MG/DL Total Bilirubin 0.8 MG/DL Aspartate Amino Transf 21 U/L (AST/SGOT) Alanine Aminotransferase 16 U/L (ALT/SGPT) Alkaline Phosphatase 108 U/L Total Creatine Kinase 235 U/L Troponin I 0.11 NG/ML Total Protein 6.3 GM/DL Albumin 1.3 GM/DL Microbiology Date/Time Procedure Status Source Growth 11/16/16 16:40 Gram Stain - Final Complete Sputum Endotracheal 11/16/16 16:40 Sputum Culture - Final Complete Staphylococcus Aureus 11/16/16 22:00 Gram Stain - Final Resulted Bronchial Washings Right Upper Lobe 11/16/16 22:00 Bronchial Culture - Preliminary Resulted Staphylococcus Aureus 11/16/16 22:00 Acid Fast Stain Worksheet Bronchial Washings Right Upper Lobe Pending 11/16/16 22:00 Mycobacterial Culture Worksheet Bronchial Washings Right Upper Lobe Pending 11/16/16 22:00 Fungal Smear - Final Resulted Bronchial Washings Right Upper Lobe NO FUNGAL ELEMENTS SEEN. 11/16/16 22:00 Fungal Culture Resulted Bronchial Washings Right Upper Lobe Pending IMAGING: Head CT 11/17/16599 Signed Impressions: Service Date/Time: Thursday, November 17, 2016 10:39 - CONCLUSION: No significant change has occurred. Deven Urrutia MD Chest X-Ray 11/17/16599 Signed Impressions: Service Date/Time: Thursday, November 17, 2016 03:36 - CONCLUSION: Diffuse airspace disease a large cavity in the right midlung zone is unchanged. Tubes and catheter are in good position. Sawyer Robertson MD Chest CT 11/16/16 0000 Signed Impressions: Service Date/Time: Wednesday, November 16, 2016 20:36 - CONCLUSION: 1. New right chest tube in the posterior superior right pleural space. There continues to be a moderate right pleural effusion primarily seen at the base. Some degree of loculation may be present inferiorly. The effusion does not layer posteriorly. There are scattered punctate areas of air within the pleural space inferiorly on the right. There is a solitary small area of air within the mild left pleural effusion. 2. Numerous irregular masses seen throughout both lungs some which are cavitary. These are nonspecific. Inflammatory masses needs be suspected. The multiplicity raises possibility of septic emboli. Agustin Price MD Abdomen X-Ray 11/15/16599 Signed Impressions: Service Date/Time: Tuesday, November 15, 2016 03:07 - CONCLUSION: Probable mild ileus involving loops of bowel on the left side. Reba Banerjee MD Abdomen/Pelvis CT 11/14/16 0000 Signed Impressions: Service Date/Time: October 09:55 - CONCLUSION: 1. Multiple loops of fluid-filled small bowel which are larger in caliber in comparison to yesterday's examination although not enlarged by size criteria. This may reflect mild enteritis versus developing mild adynamic ileus. 2. Persistent luminal narrowing at the gastroduodenal junction without definite focal mass. This is of uncertain clinical significance and likely reflects gastric contraction. Gastric mass/metastatic disease is not very likely based on appearance although it cannot be excluded. 3. 2 cm ill-defined hypodense lesion in the left renal mid pole with indeterminate density. Differential considerations include complex cyst versus metastatic disease in this patient with apparent diffuse metastatic disease in the chest. 4. Redemonstration of multiple bilateral cavitary masses at the lung bases with loculated right pleural effusion. Elder Long MD CT Angiography 11/13/16 1328 Signed Impressions: Service Date/Time: Sunday, November 13, 2016 15:50 - CONCLUSION: 1. Multiple cavitary lesions within both lungs with the largest measuring 9.5 cm in the right upper lobe. Differential diagnosis includes infectious and neoplastic etiologies. 2. Moderate sized right pleural effusion with adjacent compressive atelectasis and/or infiltrate. 3. Cardiomegaly and coronary artery calcifications. 4. Subcarinal mediastinal lymphadenopathy. 5. Degenerative changes throughout the thoracic spine. Jed Ponce MD PHYSICAL EXAMINATION GENERAL: On the vent. HEENT: No icterus. Oropharynx moist mucosa without lesions. No thrush. NECK: Supple without adenopathy. LUNGS: Bilateral rhonchi and mild wheezing. HEART: Normal S1-S2 without audible murmurs, rubs or gallops. ABDOMEN: Bowel sounds present, soft. EXTREMITIES: No clubbing or cyanosis or edema. SKIN: Punctate erythematous lesions at the lower extremities including the left tibia, left foot and right foot which blanches with palpation. NEURO: No gross focal findings. PSYCH: unable to assess. IMPRESSION 1. Sepsis. Endocarditis AV Staph aureus (MSSA). 2. Cavitary pulmonary lesions. Embolic. 3. Pneumonia/parapneumonic effusion- MSSA. 4. Skin lesions which potentially could be embolic. 5. Leukocytosis secondary to infection. WBC lower. RECOMMENDATIONS 1. Continue IV Ancef. 2. Continue Vancomycin. 3. Continue Gentamycin. 4. Stop piperacillin/Tazobactam. 5. Monitor white blood cell count. 6. Monitor temp. 7. Monitor cultures. Slava Garcia MD Nov 19, 2016 11:21
[2016-11-19] MEDS ORDERED: EPOPROSTENOL NEB SOLUTION 40 NG/KG/MIN 100 ML NEB SCH ×2 (12:00)
[2016-11-19] MEDS ORDERED: PHARMACY ORDERED LAB ONE (13:45)
--- NOTE | 2016-11-19 14:47 | HHI.PR ---
Subjective Remarks Patient was intubated last night for acute hypoxemic resp failure and a right chest tube was placed for right hydroPTX in addition patient underwent bronch with BAL ( mucous plugs b/l suctioned to clear). He is sedated with Diprivan, Fentanyl. Patient is also on Flolan. Neosyn weaned off Sister at [facility] with Diprivan and Fentanyl On Flolan Objective Vital Signs Vital Signs Date Time Temp Pulse Resp B/P Pulse Ox O2 Delivery O2 Flow Rate FiO2 11/19/16 14:00 91 11/19/16 12:41 97 35 11/19/16 12:00 40 11/19/16 12:00 100 11/19/16 12:00 98.1 100 125/60 99 140/58 11/19/16 10:00 99 11/19/16 08:53 97 35 11/19/16 08:00 104 11/19/16 08:00 40 11/19/16 08:00 98.2 94 20 117/58 93 130/57 11/19/16 06:00 89 20 109/58 94 120/54 11/19/16 06:00 89 11/19/16 05:45 90 20 109/55 93 123/55 11/19/16 05:30 93 38 113/55 95 125/55 11/19/16 05:15 103 35 124/62 100 156/76 11/19/16 05:00 99 7 121/58 96 138/63 11/19/16 04:45 99 32 129/63 98 148/66 11/19/16 04:31 99 35 11/19/16 04:30 98 23 117/61 99 126/54 11/19/16 04:30 98 23 117/61 99 126/54 11/19/16 04:15 98 24 121/64 97 130/55 11/19/16 04:00 99 11/19/16 04:00 98.2 99 22 121/67 98 135/58 11/19/16 04:00 99 27 121/67 98 135/58 11/19/16 04:00 40 11/19/16 03:45 97 23 122/62 97 132/57 11/19/16 03:30 96 22 120/63 98 130/56 11/19/16 03:15 96 28 121/64 97 133/57 11/19/16 03:00 95 22 118/61 99 126/54 7//17 02:45 98 24 122/63 99 131/56 7//17 02:30 96 23 119/60 99 129/56 7//17 02:15 94 23 117/59 98 125/54 7//17 02:00 96 27 119/63 99 128/55 7//17 02:00 96 11/19/16 01:45 95 22 119/60 99 127/55 7//17 01:40 98 35 /17 01:30 94 20 117/57 98 123/53 7//17 01:15 92 19 113/59 97 118/51 7//17 01:00 95 21 116/57 98 121/52 7//17 00:45 95 23 118/58 97 121/52 7//17 00:30 102 27 121/62 99 133/56 7//17 00:15 96 21 122/59 97 124/53 7//17 00:00 98 11/19/16 00:00 98 24 126/64 99 129/56 7//17 00:00 98 24 126/64 99 129/56 7//17 00:00 40 17 00:00 98.9 98 21 126/64 99 129/56 7//17 23:45 97 22 127/61 96 128/56 7//17 23:30 103 23 142/77 98 155/65 7//17 23:15 91 19 122/66 96 125/55 7//17 23:00 91 18 120/63 96 123/54 7//17 22:45 91 19 121/63 96 122/54 7//17 22:30 90 21 121/66 94 122/55 7/3/17 22:15 94 24 124/70 98 132/57 7//17 22:00 90 //17 22:00 90 21 113/59 97 115/48 7/3/17 21:45 91 20 116/61 98 117/49 7/3/17 21:30 90 17 114/57 96 114/47 7/3/17 21:15 92 20 117/55 95 114/47 7/3/17 21:00 95 22 122/59 96 123/51 7/3/17 20:45 92 22 117/58 97 115/47 11/18/16 20:30 103 27 144/67 99 140/58 11/18/16 20:15 89 20 115/58 99 118/51 11/18/16 20:10 99 35 11/18/16 20:00 98.6 95 20 127/65 98 128/56 11/18/16 20:00 40 11/18/16 20:00 95 20 127/65 98 128/54 11/18/16 20:00 95 11/18/16 18:00 82 11/18/16 16:00 83 11/18/16 16:00 40 11/18/16 16:00 97.7 82 17 125/64 96 126/52 I/O 11/18/16 11/18/16 11/18/16 11/19/16 11/19/16 11/19/16 07:00 15:00 23:00 07:00 15:00 23:00 Intake Total 1788 ml 1933 ml 1387 ml 1521 ml Output Total 405 ml 650 ml 700 ml 795 ml Balance 1383 ml 1283 ml 687 ml 726 ml IV Total 1788 ml 1590 ml 1083 ml 1040 ml Tube Feeding 343 ml 244 ml 421 ml Other 60 ml 60 ml Output Urine Total 275 ml 650 ml 650 ml 625 ml Tube Feeding Residual Discard 0 ml 0 ml Chest Tube Drainage Total 130 ml 50 ml 170 ml # Bowel Movements 0 0 1 Result Diagram: 11/19/16 0335 11/19/16 0335 Objective Remarks GENERAL: Patient is 56 yo critically ill intubated , sedated and on pressors. SKIN: Warm and dry. HEAD: Normocephalic. EYES: No scleral icterus. No injection or drainage. NECK: Supple, trachea midline. No JVD or lymphadenopathy. CARDIOVASCULAR: Regular rate and rhythm without murmurs, gallops, or rubs. RESPIRATORY: Breath sounds equal bilaterally. No accessory muscle use. GASTROINTESTINAL: Abdomen soft, non-tender, nondistended. MUSCULOSKELETAL: No cyanosis, or edema. Neuro: Sedated and intubated A/P Assessment and Plan 1VDRF 2)Septic shock 3)Staph Aureus bacteremia 4)Empyema 6)Endocarditis involving AV 7)Leucocytosis 8)Cavitary pulm masses 2nd staph Aureus 9)Right hydroPTX PLAN: Continue with vent support keep sat >92% Bronchodilators, ICU vent bundle, on stress dose steroids- HC 100mg IV Q8 On PRVC/AC /.02/25, 35% On Flolan nebs ( 30,0000 ng/ml) 8ml/hr s/p bronch with BAL and right chest tube placement 11/16- Monitor chest tube drainage Abx per ID ( On Ancef, Zosyn, Gent)monitor for signs of infections ( Fever, WBC ) Follow up on BAL results/cx CTS is following- no intervention at this time. Chest tube to suction Off Neosyn DW sister at [facility],Emmett Walker MD Nov 19, 2016 14:47
[2016-11-19] MEDS: fentaNYL DRIP 250 ML IV SCH (14:58)
[2016-11-19] MEDS ORDERED: EPOPROSTENOL NEB SOLUTION 30 NG/KG/MIN 100 ML NEB SCH ×2 (20:00)
[2016-11-20] VITALS (70 sets, daily range): BP systolic 111–166; BP diastolic 47–72; PULSE 88–129; RESP 21; TEMP 98.7–100; O2SAT 87–100
[2016-11-20] MEDS: GENTAMICIN/SOD CHL 80 MG/100 ML IV SCH ×3 (00:25→22:26)
[2016-11-20] MEDS: HYDROCORTISONE SOD SUCCINATE 100 MG VIAL IV PUSH SCH ×5 (00:25→22:29)
[2016-11-20] MEDS: PROPOFOL 1000 MG/100 ML INJ 100 ML IV SCH ×5 (00:25→22:26)
[2016-11-20] MEDS: ceFAZolin 2 GM PREMIX 50 ML IV SCH ×4 (01:08→22:28)
[2016-11-20] MEDS: RESP: ALBUTEROL 2.5 MG/IPRATROPIUM 0.5 MG NEB (SCH) INH ×4 (02:28→20:30)
[2016-11-20] MEDS: fentaNYL DRIP 250 ML IV SCH ×3 (03:04→22:26)
[2016-11-20] MEDS: CHLORHEXIDINE GLUCONATE 2 % 1 PACK (2 CLOTHS) TOP SCH (04:00)
[2016-11-20] MEDS ORDERED: EPOPROSTENOL NEB SOLUTION 20 NG/KG/MIN 100 ML NEB SCH ×2 (04:00)
[2016-11-20 04:41] LABS: AUTOMATED NEUTROPHIL # 25.2 TH/MM3 (1.8-7.7); BASOPHIL % 0.1 % (0.0-2.0); HEMATOCRIT 28.8 % (39.0-51.0); HEMO FLAGS DIFF FINAL; LYMPH % 3.7 % (9.0-44.0); MEAN CELL VOLUME 95.5 FL (80.0-100.0); MEAN CORPUSCULAR HEMOGLOBIN 30.5 PG (27.0-34.0); MONO % 4.1 % (0.0-8.0); NEUT % 92.1 % (16.0-70.0); PLATELET COUNT 301 TH/MM3 (150-450); RED BLOOD COUNT 3.01 MIL/MM3 (4.50-5.90); WHITE BLOOD COUNT 27.4 TH/MM3 (4.0-11.0)
[2016-11-20] MEDS: INSULIN ASPART SUPPLEMENTAL SCALE SQ SCH ×4 (05:00→22:34)
[2016-11-20 05:02] LABS: MAGNESIUM 2.4 MG/DL (1.5-2.5); POTASSIUM 4.1 MEQ/L (3.5-5.1)
[2016-11-20] MEDS: METOCLOPRAMIDE HCL 10 MG/2 ML VIAL IV SCH ×3 (06:23→22:29)
[2016-11-20] MEDS: VANCOMYCIN INJ 1,250 MG in SODIUM CHLOR 0.9% 250 ML INJ 250 ML IV SCH ×3 (06:23→22:28)
[2016-11-20] MEDS: ARTIFICIAL TEARS OPTH SOLN 15 ML BTL EACH EYE SCH ×3 (06:25→22:31)
[2016-11-20] MEDS ORDERED: PHARMACY ORDERED LAB ONE ×2 (07:45→13:45)
[2016-11-20] MEDS: LACTULOSE SYRUP 20 GM/30 ML CUP PO SCH (08:30)
[2016-11-20] MEDS: MULTIVITAMIN TAB PO SCH (08:30)
[2016-11-20] MEDS: FOLIC ACID 1 MG TAB PO SCH (08:30)
[2016-11-20] MEDS: SODIUM CHLORIDE 0.9% FLUSH 10 ML FLUSH IV FLUSH SCH ×2 (08:31→22:29)
[2016-11-20] MEDS: PANTOPRAZOLE SODIUM 40 MG VIAL IV SCH ×2 (08:31→22:29)
[2016-11-20] MEDS: SODIUM CHLORIDE 0.9% FLUSH 10 ML FLUSH IVF SCH (08:31)
[2016-11-20] MEDS: POLYETHYLENE GLYCOL 17 GM PKG PO SCH ×2 (08:31→21:00)
[2016-11-20] MEDS: CHLORHEXIDINE 0.12% (ORAL KIT) 15 ML CUP MT SCH ×2 (08:31→22:30)
[2016-11-20] MEDS: HEPARIN SODIUM - SQ 10,000 UNITS/ML VIAL SQ SCH ×2 (08:32→22:28)
[2016-11-20] MEDS: THIAMINE HCL 100 MG TAB PO SCH (08:32)
[2016-11-20] MEDS: DOCUSATE SODIUM 50 MG/SENNA 8.6 MG TAB PO SCH ×2 (09:00→21:00)
--- NOTE | 2016-11-20 11:02 | HHI.HCPN ---
Reason for visit a. To assist with evaluation and management of symptoms including: dyspnea b. To assist medical decision maker(s) with: better understanding of current medical conditions; weighing benefits/burdens of medical treatment options; making medical treatment decisions. . Subjective/Interval History INTERVAL NOTE: The patient is seen in the [facility] and follow-up to reevaluate dyspnea and possible pain. The patient remains on the ventilator, but he remains off of all pressors and is maintaining a reasonable blood pressure. He is breathing somewhat on his own. His white count has gone from 50 to 30 and now 27. At the time I am seeing him, he does not appear to be obviously dyspneic and does not appear to be in pain. Tmax 100.0 early a.m. . 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 They are hoping that he may become a surgical candidate or that the antibiotics will somehow "fix" the infection. They want to continue aggressive care at this time. . Advance Directives Living Will: Never completed Health Care Surrogate: Copy in medical record Durable Power of Food Concession Manager: Never completed Advance Directive Specifics Health Care Surrogate(s): The patient lacks capacity for decision-making, and it is uncertain whether he will regain that capacity. Initially, he had named his landlord Kerriejoshua Ferreray as healthcare surrogate on 11/14/16, but she makes it very clear by telephone on 11/18/16 that "since there is family around, I do not want to be the decision-maker for him in any way." I spoke with the patient's 21-year-old son Alexei Mohan [phone] in [place] by telephone, and he reports that he also does not want to be involved in the decision making; "he has not had any impact or played any role in my life, so that would not be appropriate for me to make decisions for him." Thus, the patient's mother Nellie Ying is his healthcare proxy decision-maker. Objective Vital Signs Date Time Temp Pulse Resp B/P Pulse Ox O2 Delivery O2 Flow Rate FiO2 11/20/16 08:06 95 35 11/20/16 06:00 89 135/61 94 116/50 7/5/17 06:00 89 7/5/17 05:45 88 133/60 94 114/50 7/5/17 05:30 90 134/61 93 117/51 7/5/17 05:15 92 138/60 92 115/50 7/5/17 05:00 94 142/63 91 121/51 7/5/17 04:45 96 142/63 91 119/52 7/5/17 04:30 98 143/65 97 124/62 7/5/17 04:30 98 143/65 97 124/62 7/5/17 04:15 109 148/60 94 126/54 7/5/17 04:00 100 134/61 92 124/52 7/5/17 04:00 35 7/5/17 04:00 100.0 100 21 134/61 92 124/52 7/5/17 04:00 92 35 7/5/17 04:00 100 7//17 03:46 104 138/65 96 125/52 7/5/17 03:30 115 158/72 97 151/62 7/5/17 03:15 108 152/67 93 140/56 7/5/17 03:00 100 136/63 99 123/51 7/5/17 02:45 95 135/61 99 119/50 7/5/17 02:30 97 141/64 99 125/52 7/5/17 02:15 97 138/64 100 124/51 7/5/17 02:00 97 136/63 99 121/49 7/5/17 02:00 97 7/5/17 01:50 100 40 7/5/17 01:45 97 138/62 100 120/50 7/5/17 01:30 99 140/65 100 123/51 7/5/17 01:15 101 140/64 97 127/51 7/5/17 01:00 105 149/67 96 134/54 7/5/17 00:45 103 145/65 95 137/55 7/5/17 00:30 93 132/61 98 120/49 7/5/17 00:15 92 135/61 97 119/48 7/5/17 00:00 92 134/61 97 119/49 7/5/17 00:00 92 134/61 97 119/49 7/5/17 00:00 92 75 00:00 98.9 92 21 134/61 97 119/49 7/5/17 00:00 35 7/4/17 23:45 93 137/63 97 120/49 7/4/17 23:30 96 135/61 96 122/49 7/4/17 23:15 97 135/63 96 124/50 7/4/17 23:00 103 154/67 96 130/53 7/4/17 22:45 101 20 148/67 97 153/62 7/4/17 22:30 99 21 146/66 93 138/59 7//17 22:15 98 21 147/63 93 143/62 7//17 22:05 93 40 7/09/02 22:00 97 24 144/64 92 141/61 7//17 22:00 97 /17 21:45 99 22 147/66 93 144/62 7//17 21:30 99 23 143/65 93 141/61 7//17 21:15 105 27 153/67 92 155/67 //17 21:00 92 20 130/62 93 125/54 7//17 20:45 95 21 129/62 93 129/55 7//17 20:30 98 21 133/60 93 128/54 7//17 20:15 97 21 132/63 93 145/70 7//17 20:00 35 7/17 20:00 111 717 20:00 99.4 111 21 165/77 95 178/82 7//17 20:00 111 26 165/77 95 178/82 7/4/17 19:51 93 35 7/4/17 18:00 100 7//17 16:00 97 7//17 16:00 98.4 103 20 131/60 94 165/75 7/4/17 16:00 40 7/4/17 15:29 94 35 7/4/17 14:00 91 7//17 14:00 93 114/57 94 129/54 7/4/17 13:00 96 117/58 96 132/55 7/4/17 12:41 97 35 7/4/17 12:00 100 125/60 99 140/58 7/4/17 12:00 40 7/4/17 12:00 100 11/19/16 12:00 98.1 100 125/60 99 140/58 11/19/16 11:00 104 129/63 93 158/72 Intake & Output 11/20/16 11/20/16 07:00 19:00 Intake Total 2060 ml Output Total 1160.0 ml Balance 900.0 ml IV Total 1481 ml Tube Feeding 489 ml Other 90 ml Output Urine Total 1050 ml Tube Feeding Residual Discard 0 ml Chest Tube Drainage Total 110 ml # Bowel Movements 2 Physical Exam CONSTITUTIONAL/GENERAL: This is an adequately nourished patient, sedated, on the ventilator in [facility]. TUBES/LINES/DRAINS: Central line, endotracheal tube, Santana catheter SKIN: No jaundice, rashes. He has multiple small punctures and abrasions about his feet and ankles (reportedly from walking barefoot). No wounds seen anteriorly. Skin temperature appropriate. Not diaphoretic. CARDIOVASCULAR: Regular rate and rhythm without murmurs, gallops, or rubs. No JVD. Peripheral pulses symmetric. RESPIRATORY/CHEST: Symmetric, unlabored respirations. Scattered rhonchi GASTROINTESTINAL: Abdomen soft, nondistended. No hepato-splenomegaly, or palpable masses. No guarding. Bowel sounds present. GENITOURINARY: Without palpable bladder distension. Santana catheter in place. MUSCULOSKELETAL: Extremities without clubbing, cyanosis, or edema. No joint tenderness or effusion noted. No mottling or clubbing. He has multiple small punctures and abrasions about his feet and ankles (reportedly from walking barefoot). NEUROLOGICAL: Occasionally opens eyes slightly. Unresponsive to voice or painful stimulation. PSYCHIATRIC: Unable to assess due to clinical condition. . Diagnostic Tests Laboratory Laboratory Tests Test 11/18/16 11/18/16 11/18/16 11/19/16 03:45 12:45 13:45 03:35 White Blood Count 50.2 TH/MM3 30.4 TH/MM3 (4.0-11.0) (4.0-11.0) Red Blood Count 3.35 MIL/MM3 3.03 MIL/MM3 (4.50-5.90) (4.50-5.90) Hemoglobin 10.0 GM/DL 9.3 GM/DL (13.0-17.0) (13.0-17.0) Hematocrit 31.7 % 28.9 % (39.0-51.0) (39.0-51.0) Mean Corpuscular Volume 94.6 FL 95.1 FL (80.0-100.0) (80.0-100.0) Mean Corpuscular Hemoglobin 29.9 PG 30.6 PG (27.0-34.0) (27.0-34.0) Mean Corpuscular Hemoglobin 31.6 % 32.2 % Concent (32.0-36.0) (32.0-36.0) Red Cell Distribution Width 15.2 % 14.9 % (11.6-17.2) (11.6-17.2) Platelet Count 355 TH/MM3 314 TH/MM3 (150-450) (150-450) Mean Platelet Volume 7.2 FL 7.2 FL (7.0-11.0) (7.0-11.0) Neutrophils (%) (Auto) 93.8 % 94.3 % (16.0-70.0) (16.0-70.0) Lymphocytes (%) (Auto) 2.7 % 2.5 % (9.0-44.0) (9.0-44.0) Monocytes (%) (Auto) 3.4 % (0.0-8.0) 2.9 % (0.0-8.0) Eosinophils (%) (Auto) 0.0 % (0.0-4.0) 0.0 % (0.0-4.0) Basophils (%) (Auto) 0.1 % (0.0-2.0) 0.3 % (0.0-2.0) Neutrophils # (Auto) 47.1 TH/MM3 28.7 TH/MM3 (1.8-7.7) (1.8-7.7) Lymphocytes # (Auto) 1.4 TH/MM3 0.8 TH/MM3 (1.0-4.8) (1.0-4.8) Monocytes # (Auto) 1.7 TH/MM3 0.9 TH/MM3 (0-0.9) (0-0.9) Eosinophils # (Auto) 0.0 TH/MM3 0.0 TH/MM3 (0-0.4) (0-0.4) Basophils # (Auto) 0.0 TH/MM3 0.1 TH/MM3 (0-0.2) (0-0.2) CBC Comment AUTO DIFF AUTO DIFF Differential Total Cells 100 100 Counted Neutrophils % (Manual) 83 % (16-70) 89 % (16-70) Band Neutrophils % 15 % (0-6) 7 % (0-6) Neutrophils # (Manual) 50.2 TH/MM3 29.2 TH/MM3 (1.8-7.7) (1.8-7.7) Metamyelocytes 2 % (0-1) Differential Comment FINAL DIFF FINAL DIFF MANUAL MANUAL Toxic Granulation 1+ (NORMAL) Dohle Bodies PRESENT (NONE SEEN) Platelet Estimate NORMAL (NORMAL) Platelet Morphology Comment NORMAL (NORMAL) Prothrombin Time 10.5 SEC (9.8-11.6) Prothromb Time International 1.0 RATIO Ratio Activated Partial 27.2 SEC Thromboplast Time (24.3-30.1) Fibrinogen 589 mg/dL (227-377) Sodium Level 137 MEQ/L 144 MEQ/L (136-145) (136-145) Potassium Level 4.7 MEQ/L 4.4 MEQ/L (3.5-5.1) (3.5-5.1) Chloride Level 105 MEQ/L 109 MEQ/L (98-107) (98-107) Carbon Dioxide Level 24.0 MEQ/L 30.5 MEQ/L (21.0-32.0) (21.0-32.0) Anion Gap 8 MEQ/L (5-15) 5 MEQ/L (5-15) Blood Urea Nitrogen 28 MG/DL (7-18) 27 MG/DL (7-18) Creatinine 0.71 MG/DL 0.75 MG/DL (0.60-1.30) (0.60-1.30) Estimat Glomerular Filtration 115 ML/MIN 108 ML/MIN Rate (>89) (>89) Random Glucose 152 MG/DL 121 MG/DL (74-106) (74-106) Lactic Acid Level 1.3 mmol/L (0.4-2.0) Calcium Level 8.0 MG/DL 8.3 MG/DL (8.5-10.1) (8.5-10.1) Phosphorus Level 4.1 MG/DL (2.5-4.9) Magnesium Level 2.5 MG/DL (1.5-2.5) Total Bilirubin 0.8 MG/DL (0.2-1.0) Aspartate Amino Transf 21 U/L (15-37) (AST/SGOT) Alanine Aminotransferase 16 U/L (12-78) (ALT/SGPT) Alkaline Phosphatase 108 U/L (45-117) Total Creatine Kinase 235 U/L (39-308) Troponin I 0.11 NG/ML (0.02-0.05) Total Protein 6.3 GM/DL (6.4-8.2) Albumin 1.3 GM/DL (3.4-5.0) M. tuberculosis Complex DNA NOT DETECTED (PCR) (NOT DETECT) Vancomycin Level Trough 17.5 MCG/ML (5.0-10.0) Monocytes % 4 % (0-8) Test 11/19/16 11/20/16 11/20/16 14:10 03:30 07:55 Vancomycin Level Trough 18.7 MCG/ML 38.4 MCG/ML (5.0-10.0) (5.0-10.0) White Blood Count 27.4 TH/MM3 (4.0-11.0) Red Blood Count 3.01 MIL/MM3 (4.50-5.90) Hemoglobin 9.2 GM/DL (13.0-17.0) Hematocrit 28.8 % (39.0-51.0) Mean Corpuscular Volume 95.5 FL (80.0-100.0) Mean Corpuscular Hemoglobin 30.5 PG (27.0-34.0) Mean Corpuscular Hemoglobin 32.0 % Concent (32.0-36.0) Red Cell Distribution Width 15.0 % (11.6-17.2) Platelet Count 301 TH/MM3 (150-450) Mean Platelet Volume 7.2 FL (7.0-11.0) Neutrophils (%) (Auto) 92.1 % (16.0-70.0) Lymphocytes (%) (Auto) 3.7 % (9.0-44.0) Monocytes (%) (Auto) 4.1 % (0.0-8.0) Eosinophils (%) (Auto) 0.0 % (0.0-4.0) Basophils (%) (Auto) 0.1 % (0.0-2.0) Neutrophils # (Auto) 25.2 TH/MM3 (1.8-7.7) Lymphocytes # (Auto) 1.0 TH/MM3 (1.0-4.8) Monocytes # (Auto) 1.1 TH/MM3 (0-0.9) Eosinophils # (Auto) 0.0 TH/MM3 (0-0.4) Basophils # (Auto) 0.0 TH/MM3 (0-0.2) CBC Comment DIFF FINAL Differential Comment Sodium Level 148 MEQ/L (136-145) Potassium Level 4.1 MEQ/L (3.5-5.1) Chloride Level 111 MEQ/L (98-107) Carbon Dioxide Level 30.0 MEQ/L (21.0-32.0) Anion Gap 7 MEQ/L (5-15) Blood Urea Nitrogen 23 MG/DL (7-18) Creatinine 0.67 MG/DL (0.60-1.30) Estimat Glomerular Filtration 123 ML/MIN Rate (>89) Random Glucose 107 MG/DL (74-106) Calcium Level 8.3 MG/DL (8.5-10.1) Phosphorus Level 3.4 MG/DL (2.5-4.9) Magnesium Level 2.4 MG/DL (1.5-2.5) Gentamicin Level Trough 1.1 MCG/ML (0.0-2.0) Result Diagram: 11/20/16 0330 11/20/16 033 Microbiology Microbiology Date/Time Procedure Status Source Growth 11/19/16 21:47 Aerobic Blood Culture Received Blood Peripheral Pending 11/19/16 21:47 Anaerobic Blood Culture Received Blood Peripheral Pending 11/19/16 21:50 Aerobic Blood Culture Received Blood Peripheral Pending 11/19/16 21:50 Anaerobic Blood Culture Received Blood Peripheral Pending Imaging Last Impressions Head CT 11/17/16 06 Signed Impressions: Service Date/Time: Thursday, November 17, 2016 10:39 - CONCLUSION: No significant change has occurred. Deven Urrutia MD Chest X-Ray 11/17/16 06 Signed Impressions: Service Date/Time: Thursday, November 17, 2016 03:36 - CONCLUSION: Diffuse airspace disease a large cavity in the right midlung zone is unchanged. Tubes and catheter are in good position. Sawyer Robertson MD Chest CT 11/16/16 0000 Signed Impressions: Service Date/Time: Wednesday, November 16, 2016 20:36 - CONCLUSION: 1. New right chest tube in the posterior superior right pleural space. There continues to be a moderate right pleural effusion primarily seen at the base. Some degree of loculation may be present inferiorly. The effusion does not layer posteriorly. There are scattered punctate areas of air within the pleural space inferiorly on the right. There is a solitary small area of air within the mild left pleural effusion. 2. Numerous irregular masses seen throughout both lungs some which are cavitary. These are nonspecific. Inflammatory masses needs be suspected. The multiplicity raises possibility of septic emboli. Agustin Price MD Abdomen X-Ray 11/15/16 0600 Signed Impressions: Service Date/Time: Tuesday, November 15, 2016 03:07 - CONCLUSION: Probable mild ileus involving loops of bowel on the left side. Reba Banerjee MD Abdomen/Pelvis CT 11/14/16 0000 Signed Impressions: Service Date/Time: October 09:55 - CONCLUSION: 1. Multiple loops of fluid-filled small bowel which are larger in caliber in comparison to yesterday's examination although not enlarged by size criteria. This may reflect mild enteritis versus developing mild adynamic ileus. 2. Persistent luminal narrowing at the gastroduodenal junction without definite focal mass. This is of uncertain clinical significance and likely reflects gastric contraction. Gastric mass/metastatic disease is not very likely based on appearance although it cannot be excluded. 3. 2 cm ill-defined hypodense lesion in the left renal mid pole with indeterminate density. Differential considerations include complex cyst versus metastatic disease in this patient with apparent diffuse metastatic disease in the chest. 4. Redemonstration of multiple bilateral cavitary masses at the lung bases with loculated right pleural effusion. Elder Long MD CT Angiography 11/13/16 1328 Signed Impressions: Service Date/Time: Sunday, November 13, 2016 15:50 - CONCLUSION: 1. Multiple cavitary lesions within both lungs with the largest measuring 9.5 cm in the right upper lobe. Differential diagnosis includes infectious and neoplastic etiologies. 2. Moderate sized right pleural effusion with adjacent compressive atelectasis and/or infiltrate. 3. Cardiomegaly and coronary artery calcifications. 4. Subcarinal mediastinal lymphadenopathy. 5. Degenerative changes throughout the thoracic spine. Jed Ponce MD Procedures Thoracentesis and right (pigtail) thoracostomy 11/14/16 INTUBATION 11/16/16 Bronchoscopy 11/16/16 . Assessment and Plan Disease Oriented Problem List: (1) respiratory failure (2) septic shock (3) MSSA sepsis (4) multiple pulmonary cavitary lesions (5) aortic valve endocarditis (6) aortic regurgitation Symptom Scale: (1) dyspnea 0-10 Scale: Unable to quantify (2) pain 0-10 Scale: Unable to quantify Pertinent Non-Medical Issues Psychosocial: Originally from [place], living here for 30 years. Never . One estranged son in [place]. Spiritual: The patient is not and has not ever been spiritual or rastafarian person according to the family, but the family does want the marketing analytics lead to continue to come and visit. Legal: The patient lacks capacity for decision-making, and it it is uncertain whether he will regain that capacity. Initially, he had named his landlord Kerrie Correa as healthcare surrogate, but she makes it very clear by telephone [phone] on 11/18/16 that "since there is family around, I do not want to be the decision-maker for him in any way." I spoke with the patient's 21-year-old son Alexei Mohan [phone] in [place] by telephone, and he reports that he also does not want to be involved in the decision making; "he has not had any impact or played any role in my life, so that would not be appropriate for me to make decisions for him." Thus, the patient's mother Nellie Ying is his healthcare proxy decision-maker. Ethical issues impacting care: None . Important Contacts Mother: Nellie Ying <----> PROXY DECISION-MAKER -- [phone] Son: (estranged for many years) Adarsh Mohan [phone] . Prognosis The patient has multisystem organ failure and septic shock with a large vegetation on his aortic valve, and his overall prognosis is quite guarded. . Code Status: Full Code Plan * FULL CODE * DECISION-MAKING: The patient lacks capacity for decision-making, and it is uncertain whether he will regain that capacity. Initially, he had named his landlord Kerrie Correa as healthcare surrogate, but she makes it very clear by telephone [phone] on 11/18/16 that "since there is family around, I do not want to be the decision-maker for him in any way." I spoke with the patient's 21-year-old son Alexei Mohan [phone] in [place] by telephone, and he reports that he also does not want to be involved in the decision making; "he has not had any impact or played any role in my life, so that would not be appropriate for me to make decisions for him." Thus, the patient's mother Nellie Ying is his healthcare proxy decision-maker. * GOALS: The patient's family wants to continue aggressive care at this time, hoping that perhaps he will be able to get a new valve or that the current infection will somehow resolve with medical treatment. (CV surgery may reevaluate the patient if he is able to be weaned and medically extubated at some point.) * SYMPTOMS: Any pain or dyspnea is being managed by appropriate sedation and the ventilator, and I have no additional medication recommendations at this time. * Palliative Care will continue to follow the patient during this hospitalization. . Time Spent Total Floor Time (mins): 38 Face to Face Time (mins): 12 >50% Counseling/Coord of Care: Yes (d/w Dr. Velez and w RN) Attestation To help prompt me to consider important information that might be impacting today's encounter and assessment, information from prior notes written by myself or my colleagues may have been "brought forward" into today's note. My signature on this note, however, is an attestation that I personally performed the exam, history, and/or decision-making noted today, and, unless otherwise indicated, the interactions with patient, family, and staff as well as the review of records all occurred today. I also attest that the listed assessment and stated plan reflect my best clinical judgment today based on the combination of historical information, prior notes, and today's exam/ interactions. When time spent is documented, it refers only to time spent today by the signer, or if indicated, combined time spent today by collaborating physician/nurse practitioner. Radha Carpenter MD Nov 20, 2016 11:02
[2016-11-20] MEDS: EPOPROSTENOL NEB SOLUTION 10 NG/KG/MIN 100 ML NEB SCH ×4 (12:00→18:49)
--- NOTE | 2016-11-20 12:04 | HHI.CCPN ---
Subjective Remarks/Hospital Course 56-year-old male is brought to the emergency department by EMS for evaluation of generalized weakness, confusion for about 2 weeks, and also increasing shortness of breath. His oxygen saturation was 88% on room air. EMS administered breathing treatments and Solu-Medrol 125 mg 1 and placed him on nasal cannula. Patient states that he had been sick for almost 10 days, but he is a poor historian. He had a productive cough, but reports no hematemesis or weight loss. He states that it was his neighbor who made him called EMS. He has no past medical history and last time had seen a doctor was about 15 years ago. He denies any fevers but reports some night sweats and chills. He was tachycardic with a heart rate of 115 bpm, had severe leukocytosis with a white count of 35,000 with 91% neutrophils. CMP shows hyponatremia with a sodium of 126. Lactic acid is 2.4. His Chest x-ray shows large 7.7 x 7.8 cm cavitary right midlung lesion with associated right-sided pleural effusion. Subcentimeter left mid lung pulmonary nodules. Patient received 1 L normal saline bolus and Zosyn 4.5 g and Zithromax 500 mg IV and was placed on TB/ respiratory isolation. He has been being in long term 2 years ago increasing his risk of tuberculosis. CT pulmonary angiogram negative for PE but showed multiple cavitary lesions within both lungs with the largest measuring 9.5 cm in the right upper lobe. Moderate size right pleural effusion. I evaluated the patient in the emergency department. Patient appears critically ill in moderate distress mildly tachypneic, sweating. I performed a bedside ultrasound which showed a right effusion which is large. The thoracentesis was performed and 1 L of cloudy dark pleural fluid was removed. Patient will be continued on Zosyn and Levaquin and vancomycin. ID consulted and I discussed with Dr. Steele-she recommended no empiric treatments for TB. 11/14/16: Patient seen and examined complaints of severe epigastric and periumbilical abdominal pain. Patient remains oriented to person. His white count is slightly improved from 35,000-28,9000. Na improved to 136. I have ordered a STAT CT abd/pelvis with IV contrast. Chest x-ray shows reaccumulation of right pleural effusion-fluid chemistries are pending but cell count indicates at least a parapneumonic effusion and patient will need a pigtail chest tube 11/15: Patient pulled his right-sided pigtail catheter out overnight last night. Currently nasal cannula in no acute distress. Afebrile. Continues to have a leukocytosis. 11/16: Currently on room air. Hold out his IVs reportedly overnight last night. Requesting diet. Awake and alert and following commands. Subjective 11/17: Intubated yesterday due to acute hypercapnic respiratory failure. Hypoxic post intubation requiring right chest tube placement, bronchoscopy and Flolan. Bronchoscopy revealed thick mucous plugging at bilateral right and left mainstem which were clear. Improved oxygenation over the past 12 hours. Afebrile. 11/18 Patient remains sedated with Diprivan, Fentanyl and intubated. On Vasopressin and Neosyn 120 mics. 11/19 Patient is sedated with Diprivan, Fentanyl and intubated. Afebrile. Off all pressors. Afebrile. WBC is trending down 30 today from 50. 11/20: Remains severely septic and encephalopathic even though weaned off all pressors. White count still elevated but trending down. Became extremely tachycardic and tachypneic on lowering sedation. We'll check MRI of the brain to rule out embolic infarct. Family at the bedside updated Objective Vital Signs Date Time Temp Pulse Resp B/P Pulse Ox O2 Delivery O2 Flow Rate FiO2 11/20/16 08:06 95 35 11/20/16 06:00 89 135/61 116/50 11/20/16 04:00 100.0 21 11/16/16 08:09 Nasal Cannula 5.00 Intake and Output 11/19/16 11/19/16 11/20/16 08:00 16:00 00:00 Intake Total 1521 ml 1154 ml 878 ml Output Total 795 ml 1570 ml 550.0 ml Balance 726 ml -416 ml 328.0 ml Result Diagram: 11/20/1632911/20/16329 Imaging Last Impressions Head CT 11/17/16599 Signed Impressions: Service Date/Time: Thursday, November 17, 2016 10:39 - CONCLUSION: No significant change has occurred. Deven Urrutia MD Chest X-Ray 11/17/16599 Signed Impressions: Service Date/Time: Thursday, November 17, 2016 03:36 - CONCLUSION: Diffuse airspace disease a large cavity in the right midlung zone is unchanged. Tubes and catheter are in good position. Sawyer Robertson MD Chest CT 11/16/16 0000 Signed Impressions: Service Date/Time: Wednesday, November 16, 2016 20:36 - CONCLUSION: 1. New right chest tube in the posterior superior right pleural space. There continues to be a moderate right pleural effusion primarily seen at the base. Some degree of loculation may be present inferiorly. The effusion does not layer posteriorly. There are scattered punctate areas of air within the pleural space inferiorly on the right. There is a solitary small area of air within the mild left pleural effusion. 2. Numerous irregular masses seen throughout both lungs some which are cavitary. These are nonspecific. Inflammatory masses needs be suspected. The multiplicity raises possibility of septic emboli. Agustin Price MD Abdomen X-Ray 11/15/16 0600 Signed Impressions: Service Date/Time: Tuesday, November 15, 2016 03:07 - CONCLUSION: Probable mild ileus involving loops of bowel on the left side. Reba Banerjee MD Abdomen/Pelvis CT 11/14/16 0000 Signed Impressions: Service Date/Time: October 09:55 - CONCLUSION: 1. Multiple loops of fluid-filled small bowel which are larger in caliber in comparison to yesterday's examination although not enlarged by size criteria. This may reflect mild enteritis versus developing mild adynamic ileus. 2. Persistent luminal narrowing at the gastroduodenal junction without definite focal mass. This is of uncertain clinical significance and likely reflects gastric contraction. Gastric mass/metastatic disease is not very likely based on appearance although it cannot be excluded. 3. 2 cm ill-defined hypodense lesion in the left renal mid pole with indeterminate density. Differential considerations include complex cyst versus metastatic disease in this patient with apparent diffuse metastatic disease in the chest. 4. Redemonstration of multiple bilateral cavitary masses at the lung bases with loculated right pleural effusion. Elder Long MD CT Angiography 11/13/16 1328 Signed Impressions: Service Date/Time: Sunday, November 13, 2016 15:50 - CONCLUSION: 1. Multiple cavitary lesions within both lungs with the largest measuring 9.5 cm in the right upper lobe. Differential diagnosis includes infectious and neoplastic etiologies. 2. Moderate sized right pleural effusion with adjacent compressive atelectasis and/or infiltrate. 3. Cardiomegaly and coronary artery calcifications. 4. Subcarinal mediastinal lymphadenopathy. 5. Degenerative changes throughout the thoracic spine. Jed Ponce MD Objective Remarks GENERAL: 86-year-old male, critically ill currently orotracheally intubated SKIN: Warm and dry. Scattered skin lesions erythematous predominantly left lower extremity HEAD: Normocephalic and atraumatic. EYES: No injection, drainage. Pupils equally round and reactive around 3 mm bilaterally 2 mm. ENT: No nasal drainage noted. Oropharynx is clear. NECK: Supple. No JVD or thyromegaly or lymphadenopathy. Left IJ is clean dry and intact CARDIOVASCULAR: Tachycardic, RR. S1, S2. No S4. Aortic regurgitation murmur not appreciated. RESPIRATORY: Diminished breath sounds right lower lobe. Bilateral mild expiratory wheezing and few crackles. Right chest tube is clean dry and intact , 230 ml output in 24 hours GASTROINTESTINAL: Abdomen is soft, no rebound or guarding on examination. Hypoactive bowel sounds are appreciated MUSCULOSKELETAL: Mild swelling of bilateral ankles. Multiple erythematous raised lesions on bilateral lower extremity predominantly left lower leg NEUROLOGICAL: Currently sedated on the ventilator propofol and fentanyl ventilator synchrony. Moving all 4 extremity spontaneously interactive. Do not follow commands Urinary Catheter: Yes Assessment to: Continue Date of Insertion: Nov 16, 2016 Line: Central Venous Catheter Side: Left Location: Internal, Jugular A/P Assessment and Plan NEURO/PSYCH: Metabolic encephalopathy On Diprivan and Fentanyl infusion for sedation/analgesia while intubated Goal of RA SS -2. Daily sedation vacation. Start Precedex to facilitate vent weaning CT head 11/17 revealed no acute intracranial findings currently no signs of gross embolic events. Check MRI brain with and without contrast On Thiamine/MVI/Folic acid RESP: Bilateral cavitary lung lesions/most likely cavitating pneumonia from staph aureus Daily respiratory failure Large right loculated pleural effusion/empyema PRVC 16/600/1.05/23/34. Continue with vent support keep sat >92%. Duo nebs every 4 hours with albuterol nebs every 2 hours. Vent bundle. Did not tolerate CPAP, failed due to severe agitation and tachypnea, tachycardia Flolan currently at 30,000 ng/ml at 8ml/hr nebs, Wean to DC Flolan Right-sided chest tube #28 Romanian- monitor CT drainage( Drained 230 ml, in 24 hours) - Right thoracentesis with 1 L cloudy yellow fluid removed, fluid cell studies WBC 2,600, - Patient status post pigtail catheter placement 11/14, 445 cc prior pulled out 11/15. Evaluated by Dr. Samuels/CT surgery. Per his recommendations, No indication for decortication at this time CV: Aortic valve endocarditis/large vegetation Sinus tachycardia Atrial fibrillation with RVR early normal sinus rhythm Elevated troponin - likely rate dependent Off all pressors monitor HR and BP keep MAP>65mmHg - Stress dose steroids- Hydrocortisone 50mg IV Q6 2-D echocardiogram revealed EF 55-60%. Moderate AR. CHANDNI revealed 17 mm x 17 millimeter mobile mass on aortic valve - CT surgery consult. Recommendations no intervention at this time - Repeat limited Echo on Friday GI: Hypoalbuminemia Continue tube feeds with Glucerna 1.5 goal 55 cc an hour. IV Protonix for GI prophylaxis Chinyere-Colace and MiraLAX for bowel regimen Reglan for bowel motility - CT of the abdomen pelvis with IV contrast revealed possible ileus., Gastric contraction at gastric duodenal junction. 2 mm renal cyst. - KUB 11/15 revealed improving mild ileus. GI is following. : Monitor renal function, I/O's, electrolytes replacement per protocol. Diuresed with Bumex 1mg x1 11/19 ID: Severe sepsis Multilobar cavitating pneumonia secondary staph aureus Staph aureus empyema - Continue with abx per ID ( IV Vanco, Ancef, Gent) monitor for signs of infections ( Fever, WBC) WBC is trending down Pertinent cultures 11/13 - blood cultures 2 - staph aureus 11/13 and 11/14- pleural fluid- staph aureus 11/14- sputum- staph aureus 11/15 - blood cultures 2 - pending 11/16 - Broch samples: Staph Aureus 11/16 Sputum: Staph Aureus HEME: Leukocytosis Normocytic anemia - Monitor CBC, CMP, coags ENDO: SSI with accuchecks for glycemic control TSH 0.6. PROPH: - Bilateral lower extremity SCDs. Heaprin SQ, IV Protonix for prophylaxis LINES: - Left IJ CVP, Right Femoral Art line placed 11/16 Palliative care is following Care time 35 minutes. Jan Velez MD Nov 20, 2016 12:03
--- NOTE | 2016-11-20 13:44 | HHI.IDPN ---
Note Infectious Disease Note Patient intubated. On the vent. Has r. chest tube. (+) output. Sedated. Becomes agitated and tachycardic when sedation is lifted. Afebrile. BP stable. Large vegetation on AV and moderate aortic regurg on CHANDNI. Culture of blood 11/13, 11/15, 11/16. - Staph aureus. / pending. Culture of pleural fluid 11/14 - staph aureus. Presented to the emergency department with a 2-week history of weakness. He was noted to have low oxygen saturation. He reported that he had productive cough over the past couple of weeks and was experiencing shortness of breath. ALLERGIES NO KNOWN DRUG ALLERGIES. Current Medications Medications (Trade) Dose Ordered Sig/Gaye Route PRN Reason Start Time Stop Time Status Last Admin Dose Admin Sodium Chloride (NS Flush) 2 ml UNSCH PRN IV FLUSH FLUSH AFTER USING IV ACCESS 11/13/16 17:15 Sodium Chloride (NS Flush) 2 ml BID IV FLUSH 11/13/16 21:00 11/20/16 08:31 Miscellaneous Information 1 Q361D XX 11/13/16 17:15 Chlorhexidine Gluconate (Chlorhexidine 2% Cloth) Taper DAILY@04 TOP 11/14/16 04:00 11/10/17 03:59 11/18/16 04:00 Chlorhexidine Gluconate (Chlorhexidine 2% Cloth) 3 pack UNSCH PRN TOP HYGIENIC CARE 11/13/16 17:15 Senna/Docusate Sodium (Chinyere-Colace) 1 tab BID PO 11/13/16 21:00 11/19/16 09:00 Ondansetron HCl (Zofran Inj) 4 mg Q6H PRN IV PUSH NAUSEA 11/14/16 06:30 11/14/16 06:52 Morphine Sulfate (Morphine Inj) 2 mg Q3H PRN IV PUSH pain 5-10 11/14/16 09:00 11/14/16 12:32 Pantoprazole Sodium (Protonix Inj) 40 mg BID IV 11/14/16 21:00 11/20/16 08:31 Polyethylene Glycol 17 gm 17 gm BID PO 11/14/16 21:00 11/20/16 08:31 Cefazolin Sodium/ Dextrose (Ancef 2 Gm Premix) 50 ml @ 100 mls/hr Q8H IV 11/15/16 17:00 11/20/16 08:33 Temazepam (Restoril) 15 mg HS PRN PO sleep 11/15/16 21:00 Metoclopramide HCl (Reglan Inj) 10 mg Q8HR IV 11/16/16 14:00 11/20/16 06:23 Metoprolol Tartrate 5 mg 5 mg Q4HR IV PUSH 11/16/16 12:00 Hold 11/16/16 11:57 Pharmacy Profile Note (Gentamicin Consult Pharmacy) 0 ml @ 0 mls/hr UNSCH OTHER 11/16/16 11:45 Chlorhexidine Gluconate 15 ml 15 ml BID@08,20 MT 11/16/16 20:00 11/20/16 08:31 Propofol 100 ml @ 0 mls/hr TITRATE IV 11/16/16 16:30 11/20/16 12:56 Fentanyl Citrate (fentaNYL DRIP) 250 ml @ 0 mls/hr TITRATE IV 11/16/16 16:30 11/20/16 13:01 Sodium Chloride (NS Flush) DAILY IVF 11/17/16 09:00 11/20/16 08:31 Sodium Chloride (NS Flush) UNSCH PRN IVF SEE PROTOCOL 11/16/16 17:15 Diltiazem HCl (Cardizem) 30 mg QID NG 11/16/16 18:00 Hold Terbutaline Sulfate 1 mg 1 mg UNSCH PRN SQ For Extravasation 11/16/16 17:15 Phenylephrine HCl 160 mg/Dextrose 500 ml @ 0 mls/hr TITRATE IV 11/16/16 18:00 11/17/16 21:48 Vasopressin/ Dextrose (Pitressin Inj/ D5W 100 ml Inj) 100 ml @ 1.5 mls/hr Q24H IV 11/16/16 21:57 11/16/16 23:05 Artificial Tears 1 drop 1 drop Q8HR EACH EYE 11/17/16 14:00 11/20/16 06:25 Pharmacy Profile Note 0 ml @ 0 mls/hr UNSCH OTHER 11/17/16 12:00 Vancomycin HCl/ Sodium Chloride (Vancomycin Inj/ NS 250 ml Inj) 262.5 ml @ 250 mls/hr Q8H IV 11/17/16 14:00 11/20/16 06:23 Hydrocortisone Sodium Succinate (SoluCORTEF INJ) 50 mg Q6HR IV PUSH 11/18/16 12:00 11/20/16 12:56 Insulin Aspart (NovoLOG SUPPLEMENTAL SCALE) 1 Q6H SQ 11/18/16 11:00 Thiamine HCl (Vitamin B1) 100 mg DAILY PO 11/18/16 10:15 11/20/16 08:32 Folic Acid (Folate) 1 mg DAILY PO 11/18/16 10:15 11/20/16 08:30 Multivitamins (Theragran) 1 tab DAILY PO 11/18/16 10:15 11/20/16 08:30 Heparin Sodium (Porcine) (Heparin Inj) 5,000 units Q12HR SQ 11/18/16 21:00 11/20/16 08:32 Dextrose (D50w (Vial) Inj) 25 ml UNSCH PRN IV PUSH HYPOGLYCEMIA - SEE COMMENTS 11/18/16 10:45 Glucagon (Glucagon Inj) 1 mg UNSCH PRN OTHER HYPOGLYCEMIA-SEE COMMENTS 11/18/16 10:45 Lactulose 30 ml 30 ml DAILY PO 11/18/16 12:30 11/20/16 08:30 Epoprostenol Sodium/Sodium Chloride (Flolan (30,000 Ng/ml) Neb/NS Inj) 100 ml @ 8 mls/hr Q8H NEB 11/20/16 12:00 11/20/16 19:59 Miscellaneous Information SPECIFIC LAB TO BE DRAWN:VANCO TROUGH DATE TO BE DR... ONCE ONCE .XX 11/20/16 13:45 11/20/16 13:46 Miscellaneous Information SPECIFIC LAB TO BE DRAWN:GENTAMICIN TROUGH DATE TO... ONCE ONCE .XX 11/22/16 07:45 11/22/16 07:46 Gentamicin Sulfate/Sodium Chloride 100 ml @ 200 mls/hr Q12H IV 11/20/16 12:00 11/20/16 12:57 Dexmedetomidine HCl/Sodium Chloride (Precedex Inj/NS Inj) 52 ml @ 0 mls/hr TITRATE IV 11/20/16 12:00 OBJECTIVE: Vital Signs Date Time Temp Pulse Resp B/P Pulse Ox O2 Delivery O2 Flow Rate FiO2 11/20/16 12:01 92 45 11/20/16 12:00 45 11/20/16 08:06 95 35 11/20/16 08:00 35 11/20/16 06:00 89 135/61 94 116/50 7/5/17 06:00 89 7/5/17 05:45 88 133/60 94 114/50 7/5/17 05:30 90 134/61 93 117/51 7/5/17 05:15 92 138/60 92 115/50 7/5/17 05:00 94 142/63 91 121/51 7/5/17 04:45 96 142/63 91 119/52 7/5/17 04:30 98 143/65 97 124/62 7/5/17 04:30 98 143/65 97 124/62 7/5/17 04:15 109 148/60 94 126/54 7/5/17 04:00 100 134/61 92 124/52 7/5/17 04:00 35 7/5/17 04:00 100.0 100 21 134/61 92 124/52 7/5/17 04:00 92 35 7/5/17 04:00 100 7//17 03:46 104 138/65 96 125/52 7/5/17 03:30 115 158/72 97 151/62 7/5/17 03:15 108 152/67 93 140/56 7/5/17 03:00 100 136/63 99 123/51 7/5/17 02:45 95 135/61 99 119/50 7/5/17 02:30 97 141/64 99 125/52 7/5/17 02:15 97 138/64 100 124/51 7/5/17 02:00 97 136/63 99 121/49 7/5/17 02:00 97 7/5/17 01:50 100 40 7/5/17 01:45 97 138/62 100 120/50 7/5/17 01:30 99 140/65 100 123/51 7/5/17 01:15 101 140/64 97 127/51 7/5/17 01:00 105 149/67 96 134/54 7/5/17 00:45 103 145/65 95 137/55 7/5/17 00:30 93 132/61 98 120/49 7/5/17 00:15 92 135/61 97 119/48 7/5/17 00:00 92 134/61 97 119/49 7/5/17 00:00 92 134/61 97 119/49 7/5/17 00:00 92 7/5/17 00:00 98.9 92 21 134/61 97 119/49 11/20/16 00:00 35 11/19/16 23:45 93 137/63 97 120/49 11/19/16 23:30 96 135/61 96 122/49 11/19/16 23:15 97 135/63 96 124/50 11/19/16 23:00 103 154/67 96 130/53 11/19/16 22:45 101 20 148/67 97 153/62 11/19/16 22:30 99 21 146/66 93 138/59 11/19/16 22:15 98 21 147/63 93 143/62 11/19/16 22:05 93 40 11/19/16 22:00 97 24 144/64 92 141/61 11/19/16 22:00 97 11/19/16 21:45 99 22 147/66 93 144/62 11/19/16 21:30 99 23 143/65 93 141/61 11/19/16 21:15 105 27 153/67 92 155/67 11/19/16 21:00 92 20 130/62 93 125/54 11/19/16 20:45 95 21 129/62 93 129/55 11/19/16 20:30 98 21 133/60 93 128/54 11/19/16 20:15 97 21 132/63 93 145/70 11/19/16 20:00 35 11/19/16 20:00 111 11/19/16 20:00 99.4 111 21 165/77 95 178/82 11/19/16 20:00 111 26 165/77 95 178/82 11/19/16 19:51 93 35 11/19/16 18:00 100 11/19/16 16:00 97 11/19/16 16:00 98.4 103 20 131/60 94 165/75 11/19/16 16:00 40 11/19/16 15:29 94 35 11/19/16 14:00 91 11/19/16 14:00 93 114/57 94 129/54 7//17 11/19/17 11/20/16 14:59 22:59 06:59 Intake Total 1154 ml 878 ml 1182 ml Output Total 1570 ml 550 ml 610 ml Balance -416 ml 328 ml 572 ml IV Total 946 ml 676 ml 805 ml Tube Feeding 208 ml 172 ml 317 ml Other 30 ml 60 ml Output Urine Total 1450 ml 550 ml 500 ml Tube Feeding Residual Discard 0 ml 0 ml Chest Tube Drainage Total 120 ml 110 ml # Bowel Movements 1 2 1 Laboratory Tests Test 11/19/16 11/20/16 03:35 03:30 White Blood Count 30.4 TH/MM3 27.4 TH/MM3 Red Blood Count 3.03 MIL/MM3 3.01 MIL/MM3 Hemoglobin 9.3 GM/DL 9.2 GM/DL Hematocrit 28.9 % 28.8 % Mean Corpuscular Volume 95.1 FL 95.5 FL Mean Corpuscular Hemoglobin 30.6 PG 30.5 PG Mean Corpuscular Hemoglobin 32.2 % 32.0 % Concent Red Cell Distribution Width 14.9 % 15.0 % Platelet Count 314 TH/MM3 301 TH/MM3 Mean Platelet Volume 7.2 FL 7.2 FL Neutrophils (%) (Auto) 94.3 % 92.1 % Lymphocytes (%) (Auto) 2.5 % 3.7 % Monocytes (%) (Auto) 2.9 % 4.1 % Eosinophils (%) (Auto) 0.0 % 0.0 % Basophils (%) (Auto) 0.3 % 0.1 % Neutrophils # (Auto) 28.7 TH/MM3 25.2 TH/MM3 Lymphocytes # (Auto) 0.8 TH/MM3 1.0 TH/MM3 Monocytes # (Auto) 0.9 TH/MM3 1.1 TH/MM3 Eosinophils # (Auto) 0.0 TH/MM3 0.0 TH/MM3 Basophils # (Auto) 0.1 TH/MM3 0.0 TH/MM3 CBC Comment AUTO DIFF DIFF FINAL Differential Total Cells 100 Counted Neutrophils % (Manual) 89 % Band Neutrophils % 7 % Monocytes % 4 % Neutrophils # (Manual) 29.2 TH/MM3 Differential Comment FINAL DIFF MANUAL Laboratory Tests Test 11/19/16 11/20/16 03:35 03:30 Sodium Level 144 MEQ/L 148 MEQ/L Potassium Level 4.4 MEQ/L 4.1 MEQ/L Chloride Level 109 MEQ/L 111 MEQ/L Carbon Dioxide Level 30.5 MEQ/L 30.0 MEQ/L Anion Gap 5 MEQ/L 7 MEQ/L Blood Urea Nitrogen 27 MG/DL 23 MG/DL Creatinine 0.75 MG/DL 0.67 MG/DL Estimat Glomerular Filtration 108 ML/MIN 123 ML/MIN Rate Random Glucose 121 MG/DL 107 MG/DL Calcium Level 8.3 MG/DL 8.3 MG/DL Phosphorus Level 3.4 MG/DL Magnesium Level 2.4 MG/DL Microbiology Date/Time Procedure Status Source Growth 11/19/16 21:47 Aerobic Blood Culture - Preliminary Resulted Blood Peripheral NO GROWTH IN 1 DAY 11/19/16 21:47 Anaerobic Blood Culture - Preliminary Resulted Blood Peripheral NO GROWTH IN 1 DAY 11/19/16 21:50 Aerobic Blood Culture - Preliminary Resulted Blood Peripheral NO GROWTH IN 1 DAY 11/19/16 21:50 Anaerobic Blood Culture - Preliminary Resulted Blood Peripheral NO GROWTH IN 1 DAY Microbiology Date/Time Procedure Status Source Growth 11/16/16 16:40 Gram Stain - Final Complete Sputum Endotracheal 11/16/16 16:40 Sputum Culture - Final Complete Staphylococcus Aureus 11/16/16 22:00 Gram Stain - Final Resulted Bronchial Washings Right Upper Lobe 11/16/16 22:00 Bronchial Culture - Preliminary Resulted Staphylococcus Aureus 11/16/16 22:00 Acid Fast Stain Worksheet Bronchial Washings Right Upper Lobe Pending 11/16/16 22:00 Mycobacterial Culture Worksheet Bronchial Washings Right Upper Lobe Pending 11/16/16 22:00 Fungal Smear - Final Resulted Bronchial Washings Right Upper Lobe NO FUNGAL ELEMENTS SEEN. 11/16/16 22:00 Fungal Culture Resulted Bronchial Washings Right Upper Lobe Pending IMAGING: Head CT 11/17/16 0600 Signed Impressions: Service Date/Time: Thursday, November 17, 2016 10:39 - CONCLUSION: No significant change has occurred. Deven Urrutia MD Chest X-Ray 11/17/16 0600 Signed Impressions: Service Date/Time: Thursday, November 17, 2016 03:36 - CONCLUSION: Diffuse airspace disease a large cavity in the right midlung zone is unchanged. Tubes and catheter are in good position. Sawyer Robertson MD Chest CT 11/16/16 0000 Signed Impressions: Service Date/Time: Wednesday, November 16, 2016 20:36 - CONCLUSION: 1. New right chest tube in the posterior superior right pleural space. There continues to be a moderate right pleural effusion primarily seen at the base. Some degree of loculation may be present inferiorly. The effusion does not layer posteriorly. There are scattered punctate areas of air within the pleural space inferiorly on the right. There is a solitary small area of air within the mild left pleural effusion. 2. Numerous irregular masses seen throughout both lungs some which are cavitary. These are nonspecific. Inflammatory masses needs be suspected. The multiplicity raises possibility of septic emboli. Agustin Price MD Abdomen X-Ray 11/15/16 0600 Signed Impressions: Service Date/Time: Tuesday, November 15, 2016 03:07 - CONCLUSION: Probable mild ileus involving loops of bowel on the left side. Reba Banerjee MD Abdomen/Pelvis CT 11/14/16 0000 Signed Impressions: Service Date/Time: October 09:55 - CONCLUSION: 1. Multiple loops of fluid-filled small bowel which are larger in caliber in comparison to yesterday's examination although not enlarged by size criteria. This may reflect mild enteritis versus developing mild adynamic ileus. 2. Persistent luminal narrowing at the gastroduodenal junction without definite focal mass. This is of uncertain clinical significance and likely reflects gastric contraction. Gastric mass/metastatic disease is not very likely based on appearance although it cannot be excluded. 3. 2 cm ill-defined hypodense lesion in the left renal mid pole with indeterminate density. Differential considerations include complex cyst versus metastatic disease in this patient with apparent diffuse metastatic disease in the chest. 4. Redemonstration of multiple bilateral cavitary masses at the lung bases with loculated right pleural effusion. Elder Long MD CT Angiography 11/13/16 1328 Signed Impressions: Service Date/Time: Sunday, November 13, 2016 15:50 - CONCLUSION: 1. Multiple cavitary lesions within both lungs with the largest measuring 9.5 cm in the right upper lobe. Differential diagnosis includes infectious and neoplastic etiologies. 2. Moderate sized right pleural effusion with adjacent compressive atelectasis and/or infiltrate. 3. Cardiomegaly and coronary artery calcifications. 4. Subcarinal mediastinal lymphadenopathy. 5. Degenerative changes throughout the thoracic spine. Jed Ponce MD PHYSICAL EXAMINATION GENERAL: On the vent. HEENT: No icterus. Oropharynx moist mucosa without lesions. No thrush. NECK: Supple without adenopathy. LUNGS: Coarse bilateral rhonchi. HEART: Normal S1-S2 without audible murmurs, rubs or gallops. ABDOMEN: Bowel sounds present, soft. EXTREMITIES: No clubbing or cyanosis or edema. SKIN: Punctate erythematous lesions at the lower extremities including the left tibia, left foot and right foot which blanches with palpation. NEURO: Sedated. PSYCH: unable to assess. IMPRESSION 1. Sepsis. Endocarditis Aortic valve Staph aureus (MSSA). 2. Cavitary pulmonary lesions. Embolic. 3. Pneumonia/parapneumonic effusion- MSSA. 4. Skin lesions which potentially could be embolic. 5. Leukocytosis secondary to infection. WBC lower. 6. Fever secondary to infection. RECOMMENDATIONS 1. Continue IV Ancef. 2. Continue Vancomycin. 3. Continue Gentamycin. 4. Monitor repeat blood culture. - No growth in 1 day. 5. Monitor white blood cell count. 6. Monitor temp. . Slava Garcia MD Nov 20, 2016 13:44
[2016-11-20 15:17] LABS: AMPHETAMINE, URINE NEG (NEG); BARBITURATES, URINE NEG (NEG); COCAINE, URINE NEG (NEG)
--- NOTE | 2016-11-20 18:11 | HHI.PR ---
Subjective Remarks Patient was intubated last night for acute hypoxemic resp failure and a right chest tube was placed for right hydroPTX in addition patient underwent bronch with BAL ( mucous plugs b/l suctioned to clear). He is sedated with Diprivan, Fentanyl. Patient is also on Flolan. Sister at [facility] Sedated with Diprivan and Fentanyl On Flolan Gets techcardiac on weaning sedation Objective Vital Signs Vital Signs Date Time Temp Pulse Resp B/P Pulse Ox O2 Delivery O2 Flow Rate FiO2 11/20/16 16:00 99.3 99 147/65 94 139/63 11/20/16 16:00 40 11/20/16 16:00 99 11/20/16 15:45 97 139/65 93 122/62 11/20/16 15:37 92 40 11/20/16 15:30 93 138/64 93 129/61 11/20/16 15:15 93 138/64 93 127/61 11/20/16 15:00 93 141/65 93 129/61 11/20/16 14:45 95 141/63 93 130/61 11/20/16 14:30 96 142/64 94 131/60 11/20/16 14:15 97 140/63 93 130/60 11/20/16 14:00 96 140/64 95 128/60 11/20/16 14:00 96 11/20/16 13:30 97 144/62 94 131/62 11/20/16 13:15 95 144/66 93 129/60 11/20/16 13:00 98 140/63 92 129/59 11/20/16 12:45 99 143/66 92 132/60 11/20/16 12:30 98 139/60 92 130/59 11/20/16 12:15 102 139/61 91 130/59 11/20/16 12:01 92 45 11/20/16 12:00 45 11/20/16 12:00 98.7 102 133/61 89 132/60 11/20/16 12:00 102 11/20/16 11:45 112 166/69 121/67 11/20/16 11:30 109 144/65 90 133/62 11/20/16 11:21 129 141/66 87 129/63 11/20/16 11:00 101 149/67 93 140/63 7/5/17 10:45 96 132/60 92 124/56 7/5/17 10:30 97 135/63 93 129/58 7/5/17 10:15 95 134/62 94 128/58 7/5/17 10:00 96 7/5/17 10:00 96 132/60 93 126/57 7/5/17 09:45 102 145/63 94 138/61 7/5/17 09:30 96 137/62 91 127/58 7/5/17 09:15 97 138/61 90 127/57 7/5/17 09:00 100 139/63 92 131/58 7/5/17 08:45 104 147/65 91 136/60 7/5/17 08:30 102 138/63 91 131/59 7/5/17 08:15 101 143/66 93 132/60 7/5/17 08:06 95 35 7/5/17 08:00 35 7//17 08:00 93 7//17 08:00 99.0 93 136/62 93 116/49 7/5/17 07:45 93 134/60 94 119/52 7/5/17 07:30 93 131/60 95 112/48 7/5/17 07:15 92 131/58 96 114/48 7/5/17 07:00 94 125/63 95 111/47 7/5/17 06:00 89 135/61 94 116/50 7/5/17 06:00 89 7//17 05:45 88 133/60 94 114/50 7/5/17 05:30 90 134/61 93 117/51 7/5/17 05:15 92 138/60 92 115/50 7/5/17 05:00 94 142/63 91 121/51 7/5/17 04:45 96 142/63 91 119/52 7/5/17 04:30 98 143/65 97 124/62 7/5/17 04:30 98 143/65 97 124/62 7/5/17 04:15 109 148/60 94 126/54 7/5/17 04:00 100 134/61 92 124/52 7/5/17 04:00 35 7/5/17 04:00 100.0 100 21 134/61 92 124/52 7/5/17 04:00 92 35 7/5/17 04:00 100 7/5/17 03:46 104 138/65 96 125/52 7/5/17 03:30 115 158/72 97 151/62 7/5/17 03:15 108 152/67 93 140/56 7/5/17 03:00 100 136/63 99 123/51 7/5/17 02:45 95 135/61 99 119/50 7/5/17 02:30 97 141/64 99 125/52 7/5/17 02:15 97 138/64 100 124/51 7/5/17 02:00 97 136/63 99 121/49 7/5/17 02:00 97 7/5/17 01:50 100 40 7/5/17 01:45 97 138/62 100 120/50 7/5/17 01:30 99 140/65 100 123/51 7/5/17 01:15 101 140/64 97 127/51 7/5/17 01:00 105 149/67 96 134/54 7/5/17 00:45 103 145/65 95 137/55 7/5/17 00:30 93 132/61 98 120/49 7/5/17 00:15 92 135/61 97 119/48 7/5/17 00:00 92 134/61 97 119/49 7/5/17 00:00 92 134/61 97 119/49 7/5/17 00:00 92 7/5/17 00:00 98.9 92 21 134/61 97 119/49 7/5/17 00:00 35 7//17 23:45 93 137/63 97 120/49 7/4/17 23:30 96 135/61 96 122/49 7/4/17 23:15 97 135/63 96 124/50 7/4/17 23:00 103 154/67 96 130/53 7/4/17 22:45 101 20 148/67 97 153/62 7/4/17 22:30 99 21 146/66 93 138/59 7/4/17 22:15 98 21 147/63 93 143/62 7/4/17 22:05 93 40 7/4/17 22:00 97 24 144/64 92 141/61 7/4/17 22:00 97 7/4/17 21:45 99 22 147/66 93 144/62 11/19/16 21:30 99 23 143/65 93 141/61 11/19/16 21:15 105 27 153/67 92 155/67 11/19/16 21:00 92 20 130/62 93 125/54 11/19/16 20:45 95 21 129/62 93 129/55 11/19/16 20:30 98 21 133/60 93 128/54 11/19/16 20:15 97 21 132/63 93 145/70 11/19/16 20:00 35 11/19/16 20:00 111 11/19/16 20:00 99.4 111 21 165/77 95 178/82 11/19/16 20:00 111 26 165/77 95 178/82 11/19/16 19:51 93 35 I/O 11/19/16 11/19/16 11/19/16 11/20/16 11/20/16 11/20/16 07:00 15:00 23:00 07:00 15:00 23:00 Intake Total 1521 ml 1154 ml 878 ml 1182 ml 1421 ml Output Total 795 ml 1570 ml 550 ml 610 ml 560 ml Balance 726 ml -416 ml 328 ml 572 ml 861 ml IV Total 1040 ml 946 ml 676 ml 805 ml 863 ml Tube Feeding 421 ml 208 ml 172 ml 317 ml 458 ml Other 60 ml 30 ml 60 ml 100 ml Output Urine Total 625 ml 1450 ml 550 ml 500 ml 500 ml Tube Feeding Residual Discard 0 ml 0 ml 0 ml 0 ml Chest Tube Drainage Total 170 ml 120 ml 110 ml 60 ml # Bowel Movements 1 1 2 1 1 Result Diagram: 11/20/16 0330 11/20/16 0330 Objective Remarks GENERAL: Patient is 56 yo critically ill intubated , sedated and on pressors. SKIN: Warm and dry. HEAD: Normocephalic. EYES: No scleral icterus. No injection or drainage. NECK: Supple, trachea midline. No JVD or lymphadenopathy. CARDIOVASCULAR: Regular rate and rhythm without murmurs, gallops, or rubs. RESPIRATORY: Breath sounds equal bilaterally. No accessory muscle use. GASTROINTESTINAL: Abdomen soft, non-tender, nondistended. MUSCULOSKELETAL: No cyanosis, or edema. Neuro: Sedated and intubated A/P Assessment and Plan 1VDRF 2)Septic shock 3)Staph Aureus bacteremia 4)Empyema 6)Endocarditis involving AV 7)Leucocytosis 8)Cavitary pulm masses 2nd staph Aureus 9)Right hydroPTX PLAN: Continue with vent support keep sat >92% Bronchodilators, ICU vent bundle, on stress dose steroids- HC 100mg IV Q8 On PRVC/AC 20/520/1.10/10, 40% Abx per ID ( On Ancef, Zosyn, Gent)monitor for signs of infections ( Fever, WBC ) Follow up on BAL results/cx CTS is following- no intervention at this time. Chest tube to suction Off Neosyn DW sister at [facility] [place],Emmett Walker MD Nov 20, 2016 18:11
[2016-11-20] MEDS: VASOPRESSIN INJ 40 UNITS in DEXTROSE 5% IN WATER 100ML INJ 98 ML IV SCH ×2 (21:57)
[2016-11-21] VITALS (21 sets, daily range): BP systolic 111–143; BP diastolic 43–65; PULSE 87–101; RESP 16; TEMP 98.4–99.7; O2SAT 88–98
[2016-11-21] MEDS: PROPOFOL 1000 MG/100 ML INJ 100 ML IV SCH ×5 (03:11→15:52)
[2016-11-21] MEDS: CHLORHEXIDINE GLUCONATE 2 % 1 PACK (2 CLOTHS) TOP SCH (03:11)
[2016-11-21] MEDS: INSULIN ASPART SUPPLEMENTAL SCALE SQ SCH ×4 (05:00→23:00)
[2016-11-21] MEDS: METOCLOPRAMIDE HCL 10 MG/2 ML VIAL IV SCH ×3 (06:03→21:28)
[2016-11-21] MEDS: HYDROCORTISONE SOD SUCCINATE 100 MG VIAL IV PUSH SCH ×3 (06:03→17:14)
[2016-11-21] MEDS: ARTIFICIAL TEARS OPTH SOLN 15 ML BTL EACH EYE SCH ×3 (06:04→21:30)
[2016-11-21] MEDS: VANCOMYCIN INJ 1,250 MG in SODIUM CHLOR 0.9% 250 ML INJ 250 ML IV SCH ×3 (06:04→21:28)
[2016-11-21] MEDS: POLYETHYLENE GLYCOL 17 GM PKG PO SCH ×2 (07:53→21:00)
[2016-11-21] MEDS: CHLORHEXIDINE 0.12% (ORAL KIT) 15 ML CUP MT SCH ×2 (07:53→21:31)
[2016-11-21] MEDS: FOLIC ACID 1 MG TAB PO SCH (07:54)
[2016-11-21] MEDS: MULTIVITAMIN TAB PO SCH (07:54)
[2016-11-21] MEDS: SODIUM CHLORIDE 0.9% FLUSH 10 ML FLUSH IV FLUSH SCH ×2 (07:54→21:29)
[2016-11-21] MEDS: DOCUSATE SODIUM 50 MG/SENNA 8.6 MG TAB PO SCH ×2 (07:54→21:00)
[2016-11-21] MEDS: SODIUM CHLORIDE 0.9% FLUSH 10 ML FLUSH IVF SCH (07:54)
[2016-11-21] MEDS: LACTULOSE SYRUP 20 GM/30 ML CUP PO SCH (07:54)
[2016-11-21] MEDS: THIAMINE HCL 100 MG TAB PO SCH (07:54)
[2016-11-21] MEDS: HEPARIN SODIUM - SQ 10,000 UNITS/ML VIAL SQ SCH ×2 (07:55→21:28)
[2016-11-21] MEDS: ceFAZolin 2 GM PREMIX 50 ML IV SCH ×2 (07:55→15:52)
[2016-11-21] MEDS: PANTOPRAZOLE SODIUM 40 MG VIAL IV SCH ×2 (07:55→21:28)
[2016-11-21] MEDS: fentaNYL DRIP 250 ML IV SCH ×2 (08:32→17:14)
--- NOTE | 2016-11-21 10:55 | HHI.CCPN ---
Subjective Remarks/Hospital Course 56-year-old male is brought to the emergency department by EMS for evaluation of generalized weakness, confusion for about 2 weeks, and also increasing shortness of breath. His oxygen saturation was 88% on room air. EMS administered breathing treatments and Solu-Medrol 125 mg 1 and placed him on nasal cannula. Patient states that he had been sick for almost 10 days, but he is a poor historian. He had a productive cough, but reports no hematemesis or weight loss. He states that it was his neighbor who made him called EMS. He has no past medical history and last time had seen a doctor was about 15 years ago. He denies any fevers but reports some night sweats and chills. He was tachycardic with a heart rate of 115 bpm, had severe leukocytosis with a white count of 35,000 with 91% neutrophils. CMP shows hyponatremia with a sodium of 126. Lactic acid is 2.4. His Chest x-ray shows large 7.7 x 7.8 cm cavitary right midlung lesion with associated right-sided pleural effusion. Subcentimeter left mid lung pulmonary nodules. Patient received 1 L normal saline bolus and Zosyn 4.5 g and Zithromax 500 mg IV and was placed on TB/ respiratory isolation. He has been being in [facility] 2 years ago increasing his risk of tuberculosis. CT pulmonary angiogram negative for PE but showed multiple cavitary lesions within both lungs with the largest measuring 9.5 cm in the right upper lobe. Moderate size right pleural effusion. I evaluated the patient in the emergency department. Patient appears critically ill in moderate distress mildly tachypneic, sweating. I performed a bedside ultrasound which showed a right effusion which is large. The thoracentesis was performed and 1 L of cloudy dark pleural fluid was removed. Patient will be continued on Zosyn and Levaquin and vancomycin. ID consulted and I discussed with Dr. Steele-she recommended no empiric treatments for TB. 11/14/16: Patient seen and examined complaints of severe epigastric and periumbilical abdominal pain. Patient remains oriented to person. His white count is slightly improved from 35,000-28,9000. Na improved to 136. I have ordered a STAT CT abd/pelvis with IV contrast. Chest x-ray shows reaccumulation of right pleural effusion-fluid chemistries are pending but cell count indicates at least a parapneumonic effusion and patient will need a pigtail chest tube 11/15: Patient pulled his right-sided pigtail catheter out overnight last night. Currently nasal cannula in no acute distress. Afebrile. Continues to have a leukocytosis. 11/16: Currently on room air. Hold out his IVs reportedly overnight last night. Requesting diet. Awake and alert and following commands. Subjective 11/17: Intubated yesterday due to acute hypercapnic respiratory failure. Hypoxic post intubation requiring right chest tube placement, bronchoscopy and Flolan. Bronchoscopy revealed thick mucous plugging at bilateral right and left mainstem which were clear. Improved oxygenation over the past 12 hours. Afebrile. 11/18 Patient remains sedated with Diprivan, Fentanyl and intubated. On Vasopressin and Neosyn 120 mics. 11/19 Patient is sedated with Diprivan, Fentanyl and intubated. Afebrile. Off all pressors. Afebrile. WBC is trending down 30 today from 50. 11/20: Remains severely septic and encephalopathic even though weaned off all pressors. White count still elevated but trending down. Became extremely tachycardic and tachypneic on lowering sedation. We'll check MRI of the brain to rule out embolic infarct. Family at the bedside updated 11/21 Remains heavily sedated, remains encephalopathic. MRI brain is pending. Family is at bedside. Remains critically with resp failure severe from endocarditis, now unable to wean off the ventilator due to severe metabolic encephalopathy Objective Vital Signs Date Time Temp Pulse Resp B/P Pulse Ox O2 Delivery O2 Flow Rate FiO2 11/21/16 09:12 95 35 11/21/16 06:00 92 11/21/16 04:00 98.9 16 136/62 130/60 Intake and Output 11/20/16 11/20/16 11/21/16 08:00 16:00 00:00 Intake Total 1182 ml 1421 ml 1327 ml Output Total 610.0 ml 560 ml 500 ml Balance 572.0 ml 861 ml 827 ml Result Diagram: 11/20/16 0330 11/20/16 033 Imaging Last Impressions Head CT 11/17/16 0600 Signed Impressions: Service Date/Time: Thursday, November 17, 2016 10:39 - CONCLUSION: No significant change has occurred. Deven Urrutia MD Chest X-Ray 11/17/16 0600 Signed Impressions: Service Date/Time: Thursday, November 17, 2016 03:36 - CONCLUSION: Diffuse airspace disease a large cavity in the right midlung zone is unchanged. Tubes and catheter are in good position. Sawyer Robertson MD Chest CT 11/16/16 0000 Signed Impressions: Service Date/Time: Wednesday, November 16, 2016 20:36 - CONCLUSION: 1. New right chest tube in the posterior superior right pleural space. There continues to be a moderate right pleural effusion primarily seen at the base. Some degree of loculation may be present inferiorly. The effusion does not layer posteriorly. There are scattered punctate areas of air within the pleural space inferiorly on the right. There is a solitary small area of air within the mild left pleural effusion. 2. Numerous irregular masses seen throughout both lungs some which are cavitary. These are nonspecific. Inflammatory masses needs be suspected. The multiplicity raises possibility of septic emboli. Agustin Price MD Abdomen X-Ray 11/15/16 0600 Signed Impressions: Service Date/Time: Tuesday, November 15, 2016 03:07 - CONCLUSION: Probable mild ileus involving loops of bowel on the left side. Reba Banerjee MD Abdomen/Pelvis CT 11/14/16 0000 Signed Impressions: Service Date/Time: October 09:55 - CONCLUSION: 1. Multiple loops of fluid-filled small bowel which are larger in caliber in comparison to yesterday's examination although not enlarged by size criteria. This may reflect mild enteritis versus developing mild adynamic ileus. 2. Persistent luminal narrowing at the gastroduodenal junction without definite focal mass. This is of uncertain clinical significance and likely reflects gastric contraction. Gastric mass/metastatic disease is not very likely based on appearance although it cannot be excluded. 3. 2 cm ill-defined hypodense lesion in the left renal mid pole with indeterminate density. Differential considerations include complex cyst versus metastatic disease in this patient with apparent diffuse metastatic disease in the chest. 4. Redemonstration of multiple bilateral cavitary masses at the lung bases with loculated right pleural effusion. Elder Long MD CT Angiography 11/13/16 1328 Signed Impressions: Service Date/Time: Sunday, November 13, 2016 15:50 - CONCLUSION: 1. Multiple cavitary lesions within both lungs with the largest measuring 9.5 cm in the right upper lobe. Differential diagnosis includes infectious and neoplastic etiologies. 2. Moderate sized right pleural effusion with adjacent compressive atelectasis and/or infiltrate. 3. Cardiomegaly and coronary artery calcifications. 4. Subcarinal mediastinal lymphadenopathy. 5. Degenerative changes throughout the thoracic spine. Jed Ponce MD Objective Remarks GENERAL: 86-year-old male, critically ill currently orotracheally intubated SKIN: Warm and dry. Scattered skin lesions erythematous predominantly left lower extremity HEAD: Normocephalic and atraumatic. EYES: No injection, drainage. Pupils equally round and reactive around 3 mm bilaterally 2 mm. ENT: No nasal drainage noted. Oropharynx is clear. NECK: Supple. No JVD or thyromegaly or lymphadenopathy. Left IJ is clean dry and intact CARDIOVASCULAR: Tachycardic, RR. S1, S2. No S4. Aortic regurgitation murmur not appreciated. RESPIRATORY: Diminished breath sounds right lower lobe. Mild expiratory wheezing and few crackles. Right chest tube is clean dry and intact, 140 ml output in 24 hours GASTROINTESTINAL: Abdomen is soft, no rebound or guarding on examination. Hypoactive bowel sounds are appreciated MUSCULOSKELETAL: Mild swelling of bilateral ankles. Multiple erythematous raised lesions on bilateral lower extremity predominantly left lower leg NEUROLOGICAL: Currently sedated on the ventilator propofol and fentanyl ventilator synchrony. Moving all 4 extremity spontaneously when sedation is lightened. Do not follow commands Date of Insertion: Nov 16, 2016 Line: Central Venous Catheter Side: Left Location: Internal, Jugular A/P Assessment and Plan NEURO/PSYCH: Metabolic encephalopathy On Diprivan and Fentanyl infusion for sedation/analgesia while intubated Goal of RA SS -2. Daily sedation vacation. Precedex to facilitate vent weaning CT head 11/17 revealed no acute intracranial findings currently no signs of gross embolic events. Check MRI brain with and without contrast-pending today On Thiamine/MVI/Folic acid RESP: Bilateral cavitary lung lesions/most likely cavitating pneumonia from staph aureus Acute respiratory failure Large right loculated pleural effusion/empyema PRVC 16/600/1.1/. Continue with vent support keep sat >90%. Duo nebs every 4 hours with albuterol nebs every 2 hours. Vent bundle. Did not tolerate CPAP, failed due to severe agitation and tachypnea, tachycardia DCd Flolan Right-sided chest tube #28 Pashto- monitor CT drainage( Drained 140 ml, in 24 hours) - Right thoracentesis with 1 L cloudy yellow fluid removed, fluid cell studies WBC 2,600, - Patient status post pigtail catheter placement 11/14, 445 cc prior pulled out 11/15. Evaluated by Dr. Samuels/CT surgery. Per his recommendations, No indication for decortication at this time CV: Aortic valve endocarditis/large vegetation Sinus tachycardia Atrial fibrillation with RVR early normal sinus rhythm Elevated troponin - likely rate dependent Off all pressors monitor HR and BP keep MAP>65mmHg - Stress dose steroids- Hydrocortisone 50mg IV Q6 - 2-D echocardiogram revealed EF 55-60%. Moderate AR. CHANDNI revealed 17 mm x 17 millimeter mobile mass on aortic valve - CT surgery. Recommendations no intervention at this time - Repeat limited Echo on Friday (11/22/16) GI: Hypoalbuminemia Continue tube feeds with Glucerna 1.5 goal 55 cc an hour. IV Protonix for GI prophylaxis Chinyere-Colace and MiraLAX for bowel regimen Reglan for bowel motility - CT of the abdomen pelvis with IV contrast revealed possible ileus., Gastric contraction at gastric duodenal junction. 2 mm renal cyst. - KUB 11/15 revealed improving mild ileus. GI is following. : Monitor renal function, I/O's, electrolytes replacement per protocol. Diuresed with Bumex 1mg x1 11/19 ID: Severe sepsis Multilobar cavitating pneumonia secondary staph aureus Staph aureus empyema - Continue with abx per ID ( IV Vanco, Ancef, Gent) monitor for signs of infections ( Fever, WBC) WBC is trending down Pertinent cultures 11/13 - blood cultures 2 - staph aureus 11/13 and 11/14- pleural fluid- staph aureus 11/14- sputum- staph aureus 11/15 - blood cultures 2 - pending 11/16 - Broch samples: Staph Aureus 11/16 Sputum: Staph Aureus HEME: Leukocytosis Normocytic anemia - Monitor CBC, CMP, coags ENDO: SSI with accuchecks for glycemic control TSH 0.6. PROPH: - Bilateral lower extremity SCDs. Heparin SQ, IV Protonix for prophylaxis LINES: - Left IJ CVP, Right Femoral Art line placed 11/16 Palliative care is following Care time 35 minutes. Jan Velez MD Nov 21, 2016 10:55
[2016-11-21] MEDS: GENTAMICIN/SOD CHL 80 MG/100 ML IV SCH (11:55)
[2016-11-21] MEDS ORDERED: GADODIAMIDE PF 287 MG/ML 5 ML VIAL (for RAD MRI) IV ONE (12:57)
--- NOTE | 2016-11-21 14:55 | RADRPT ---
EXAM DATE/TIME: 11/21/2016 12:33 [facility] COMPARISON: CT ABDOMEN & PELVIS W CONTRAST, November 14, 2016, 9:55. CT BRAIN W/O CONTRAST, November 17, 2016, 10:39. INDICATIONS : Altered mental status. Septic emboli. Abscess. CONTRAST: 21 cc Omniscan (gadodiamide) IV MEDICAL HISTORY : endocarditis, weight loss, pneomothorax, sepsis SURGICAL HISTORY : unable to obtain ENCOUNTER: Subsequent ACUITY: 1 week PAIN SCORE: 10/10 LOCATION: cranial TECHNIQUE: Multiplanar, multisequence MRI of the brain was performed both prior to and following the administrat ion of paramagnetic contrast. FINDINGS: CEREBRUM: Ventricles are normal in size. There are multiple scattered areas of flair and T2 hyperintense signal in the periventricular white matter, subcortical white matter, and cortically based in the right fro ntal high convexity. Some of these areas are associated with restricted diffusion. No enhancement is appreciated within these areas. There is a single punctate area of susceptibility artifact on the SWI images in the left parietal high convexity. No acute blood products are present. There is no midline shift or herniation. WHITE MATTER: There is mild scattered periventricular and subcortical white matter signal change bilaterally in an asymmetric distribution. POSTERIOR FOSSA: No acute abnormality is identified. DIFFUSION IMAGING: There are innumerable multifocal areas of restricted diffusion that are cortically based, and located in the periventricular and subcortical white matter bilaterally. The largest areas in the right fron april high convexity. EXTRACRANIAL: There is fluid in the nasopharynx and a small amount of fluid in the right mastoid air cells. POST-CONTRAST: No abnormal areas of parenchymal or dural enhancement. No evidence of blood-brain barrier breakdown. CONCLUSION: Multifocal areas of restricted diffusion primarily in the periventricular and subcortical white matte r bilaterally but also cortically based in the right frontal lobe. Findings likely represent ischemic change likely related to septic emboli given the patient's clinical history. No abscess or enhancing lesion is visualized. Agustin Bonner MD on November 21, 2016 at 14:45 Board Certified Radiologist. This report was verified electronically.
--- NOTE | 2016-11-21 15:44 | HHI.IDPN ---
Note Infectious Disease Note Patient intubated. On the vent. Sedated. Becomes agitated and tachycardic when sedation is lifted. Afebrile. BP stable. Large vegetation on AV and moderate aortic regurg on CHANDNI. Culture of blood 11/13, 11/15, 11/16. - Staph aureus. &/ pending. Culture of pleural fluid 11/14 - staph aureus. Presented to the emergency department with a 2-week history of weakness. He was noted to have low oxygen saturation. He reported that he had productive cough over the past couple of weeks and was experiencing shortness of breath. ALLERGIES NO KNOWN DRUG ALLERGIES. OBJECTIVE: Vital Signs Date Time Temp Pulse Resp B/P Pulse Ox O2 Delivery O2 Flow Rate FiO2 11/21/16 13:20 98 100 11/21/16 12:00 35 11/21/16 11:36 95 35 11/21/16 09:12 95 35 11/21/16 08:00 35 11/21/16 06:00 92 11/21/16 04:06 94 40 11/21/16 04:00 93 11/21/16 04:00 98.9 93 16 136/62 94 130/60 11/21/16 04:00 40 11/21/16 02:00 89 11/21/16 01:10 95 40 11/21/16 00:00 40 11/21/16 00:00 90 11/21/16 00:00 98.8 90 16 129/60 94 128/61 11/20/16 22:26 94 40 11/20/16 22:00 91 11/20/16 20:00 40 11/20/16 20:00 98.9 93 134/63 94 132/62 11/20/16 20:00 93 11/20/16 19:54 97 40 11/20/16 18:00 95 11/20/16 16:00 99.3 99 147/65 94 139/63 11/20/16 16:00 40 11/20/16 16:00 99 11/20/16 15:45 97 139/65 93 122/62 11/20/16 11/20/16 11/21/16 15:00 23:00 07:00 Intake Total 1421 ml 1327 ml 1080 ml Output Total 560 ml 500 ml 480 ml Balance 861 ml 827 ml 600 ml IV Total 863 ml 813 ml 655 ml Tube Feeding 458 ml 514 ml 425 ml Other 100 ml Output Urine Total 500 ml 500 ml 400 ml Tube Feeding Residual Discard 0 ml Chest Tube Drainage Total 60 ml 80 ml # Bowel Movements 1 1 Laboratory Tests Test 11/20/16 03:30 White Blood Count 27.4 TH/MM3 Red Blood Count 3.01 MIL/MM3 Hemoglobin 9.2 GM/DL Hematocrit 28.8 % Mean Corpuscular Volume 95.5 FL Mean Corpuscular Hemoglobin 30.5 PG Mean Corpuscular Hemoglobin 32.0 % Concent Red Cell Distribution Width 15.0 % Platelet Count 301 TH/MM3 Mean Platelet Volume 7.2 FL Neutrophils (%) (Auto) 92.1 % Lymphocytes (%) (Auto) 3.7 % Monocytes (%) (Auto) 4.1 % Eosinophils (%) (Auto) 0.0 % Basophils (%) (Auto) 0.1 % Neutrophils # (Auto) 25.2 TH/MM3 Lymphocytes # (Auto) 1.0 TH/MM3 Monocytes # (Auto) 1.1 TH/MM3 Eosinophils # (Auto) 0.0 TH/MM3 Basophils # (Auto) 0.0 TH/MM3 CBC Comment DIFF FINAL Differential Comment Laboratory Tests Test 11/20/16 03:30 Sodium Level 148 MEQ/L Potassium Level 4.1 MEQ/L Chloride Level 111 MEQ/L Carbon Dioxide Level 30.0 MEQ/L Anion Gap 7 MEQ/L Blood Urea Nitrogen 23 MG/DL Creatinine 0.67 MG/DL Estimat Glomerular Filtration 123 ML/MIN Rate Random Glucose 107 MG/DL Calcium Level 8.3 MG/DL Phosphorus Level 3.4 MG/DL Magnesium Level 2.4 MG/DL Microbiology Date/Time Procedure Status Source Growth 11/19/16 21:47 Aerobic Blood Culture - Preliminary Resulted Blood Peripheral NO GROWTH IN 2 DAYS 11/19/16 21:47 Anaerobic Blood Culture - Preliminary Resulted Blood Peripheral NO GROWTH IN 2 DAYS 11/19/16 21:50 Aerobic Blood Culture - Preliminary Resulted Blood Peripheral NO GROWTH IN 2 DAYS 11/19/16 21:50 Anaerobic Blood Culture - Preliminary Resulted Blood Peripheral NO GROWTH IN 2 DAYS Microbiology Date/Time Procedure Status Source Growth 11/19/16 21:47 Aerobic Blood Culture - Preliminary Resulted Blood Peripheral NO GROWTH IN 1 DAY 11/19/16 21:47 Anaerobic Blood Culture - Preliminary Resulted Blood Peripheral NO GROWTH IN 1 DAY 11/19/16 21:50 Aerobic Blood Culture - Preliminary Resulted Blood Peripheral NO GROWTH IN 1 DAY 11/19/16 21:50 Anaerobic Blood Culture - Preliminary Resulted Blood Peripheral NO GROWTH IN 1 DAY Microbiology Date/Time Procedure Status Source Growth 11/16/16 16:40 Gram Stain - Final Complete Sputum Endotracheal 11/16/16 16:40 Sputum Culture - Final Complete Staphylococcus Aureus 11/16/16 22:00 Gram Stain - Final Resulted Bronchial Washings Right Upper Lobe 11/16/16 22:00 Bronchial Culture - Preliminary Resulted Staphylococcus Aureus 11/16/16 22:00 Acid Fast Stain Worksheet Bronchial Washings Right Upper Lobe Pending 11/16/16 22:00 Mycobacterial Culture Worksheet Bronchial Washings Right Upper Lobe Pending 11/16/16 22:00 Fungal Smear - Final Resulted Bronchial Washings Right Upper Lobe NO FUNGAL ELEMENTS SEEN. 11/16/16 22:00 Fungal Culture Resulted Bronchial Washings Right Upper Lobe Pending IMAGING: Brain MRI 11/21/16 0000 Signed Impressions: Service Date/Time: November 12:33 - CONCLUSION: Multifocal areas of restricted diffusion primarily in the periventricular and subcortical white matter bilaterally but also cortically based in the right frontal lobe. Findings likely represent ischemic change likely related to septic emboli given the patient's clinical history. No abscess or enhancing lesion is visualized. Agustin Bonner MD Head CT 11/17/16 06 Signed Impressions: Service Date/Time: Thursday, November 17, 2016 10:39 - CONCLUSION: No significant change has occurred. Deven Urrutia MD Chest X-Ray 11/17/16 06 Signed Impressions: Service Date/Time: Thursday, November 17, 2016 03:36 - CONCLUSION: Diffuse airspace disease a large cavity in the right midlung zone is unchanged. Tubes and catheter are in good position. Sawyer Robertson MD Chest CT 11/16/16 0000 Signed Impressions: Service Date/Time: Wednesday, November 16, 2016 20:36 - CONCLUSION: 1. New right chest tube in the posterior superior right pleural space. There continues to be a moderate right pleural effusion primarily seen at the base. Some degree of loculation may be present inferiorly. The effusion does not layer posteriorly. There are scattered punctate areas of air within the pleural space inferiorly on the right. There is a solitary small area of air within the mild left pleural effusion. 2. Numerous irregular masses seen throughout both lungs some which are cavitary. These are nonspecific. Inflammatory masses needs be suspected. The multiplicity raises possibility of septic emboli. Agustin Price MD Abdomen X-Ray 11/15/16 0600 Signed Impressions: Service Date/Time: Tuesday, November 15, 2016 03:07 - CONCLUSION: Probable mild ileus involving loops of bowel on the left side. Reba Banerjee MD Abdomen/Pelvis CT 11/14/16 0000 Signed Impressions: Service Date/Time: October 09:55 - CONCLUSION: 1. Multiple loops of fluid-filled small bowel which are larger in caliber in comparison to yesterday's examination although not enlarged by size criteria. This may reflect mild enteritis versus developing mild adynamic ileus. 2. Persistent luminal narrowing at the gastroduodenal junction without definite focal mass. This is of uncertain clinical significance and likely reflects gastric contraction. Gastric mass/metastatic disease is not very likely based on appearance although it cannot be excluded. 3. 2 cm ill-defined hypodense lesion in the left renal mid pole with indeterminate density. Differential considerations include complex cyst versus metastatic disease in this patient with apparent diffuse metastatic disease in the chest. 4. Redemonstration of multiple bilateral cavitary masses at the lung bases with loculated right pleural effusion. Elder Long MD CT Angiography 11/13/16 1328 Signed Impressions: Service Date/Time: Sunday, November 13, 2016 15:50 - CONCLUSION: 1. Multiple cavitary lesions within both lungs with the largest measuring 9.5 cm in the right upper lobe. Differential diagnosis includes infectious and neoplastic etiologies. 2. Moderate sized right pleural effusion with adjacent compressive atelectasis and/or infiltrate. 3. Cardiomegaly and coronary artery calcifications. 4. Subcarinal mediastinal lymphadenopathy. 5. Degenerative changes throughout the thoracic spine. Jed Ponce MD PHYSICAL EXAMINATION GENERAL: On the vent. HEENT: No icterus. Oropharynx moist mucosa without lesions. NECK: Supple without adenopathy. LUNGS: Coarse bilateral rhonchi. HEART: Normal S1-S2 without audible murmurs, rubs or gallops. ABDOMEN: Bowel sounds present, soft. Distended. EXTREMITIES: No clubbing or cyanosis or edema. SKIN: Punctate erythematous lesions at the lower extremities including the left tibia, left foot and right foot which blanches with palpation. NEURO: Sedated. PSYCH: unable to assess. IMPRESSION 1. Sepsis. Endocarditis Aortic valve Staph aureus (MSSA). 2. Cavitary pulmonary lesions. Embolic./ CARPENTER ASSISTANT ischemic lesions suggesting embolic lesions. 3. Pneumonia/parapneumonic effusion- MSSA. 4. Skin lesions which potentially could be embolic. 5. Leukocytosis secondary to infection. WBC lower. 6. Fever secondary to infection. Temp lower. Remains critically ill. RECOMMENDATIONS 1. Continue IV Ancef. 2. Continue Vancomycin. 3. Continue Gentamycin. 4. Monitor repeat blood culture. - No growth day 2. 5. Monitor white blood cell count. 6. Monitor temp. . Slava Garcia MD Nov 21, 2016 15:44
--- NOTE | 2016-11-21 16:44 | HHI.HCPN ---
Reason for visit a. To assist with evaluation and management of symptoms including: dyspnea b. To assist medical decision maker(s) with: better understanding of current medical conditions; weighing benefits/burdens of medical treatment options; making medical treatment decisions. . Subjective/Interval History INTERVAL NOTE: The patient is seen in the C and follow-up to reevaluate dyspnea, encephalopathy, and possible pain. The patient remains on the ventilator, and he remains off of all pressors. He is severely encephalopathic, and has pronounced symptoms if sedation is lightened. No fever since yesterday morning. 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 . Family/friend interactions Sister Orquidea Ballard is at the bedside, and I informed her of the MRI findings. She understands that the patient is quite encephalopathic now, may not be able to be extubated, and may therefore not be a valve replacement candidate. . Advance Directives Living Will: Never completed Health Care Surrogate: Copy in medical record Durable Power of Premix Operator Concentrate: Never completed Advance Directive Specifics Health Care Surrogate(s): The patient lacks capacity for decision-making, and it is unlikely that he will regain that capacity. Initially, he had named his landlord Kerrie Correa as healthcare surrogate on 11/14/16, but she makes it very clear by telephone on 11/18/16 that "since there is family around, I do not want to be the decision-maker for him in any way." I spoke with the patient's 21-year-old son Alexei Mohan [phone] in [place] by telephone, and he reports that he also does not want to be involved in the decision making; "he has not had any impact or played any role in my life, so that would not be appropriate for me to make decisions for him." Thus, the patient's mother Nellie Ying is his healthcare proxy decision-maker. Objective Vital Signs Date Time Temp Pulse Resp B/P Pulse Ox O2 Delivery O2 Flow Rate FiO2 11/21/16 13:20 98 100 11/21/16 12:00 35 11/21/16 11:36 95 35 11/21/16 09:12 95 35 11/21/16 08:00 35 11/21/16 06:00 92 11/21/16 04:06 94 40 11/21/16 04:00 93 11/21/16 04:00 98.9 93 16 136/62 94 130/60 11/21/16 04:00 40 11/21/16 02:00 89 11/21/16 01:10 95 40 11/21/16 00:00 40 11/21/16 00:00 90 11/21/16 00:00 98.8 90 16 129/60 94 128/61 11/20/16 22:26 94 40 11/20/16 22:00 91 11/20/16 20:00 40 11/20/16 20:00 98.9 93 134/63 94 132/62 11/20/16 20:00 93 11/20/16 19:54 97 40 11/20/16 18:00 95 Intake & Output 11/21/16 11/21/16 07:00 19:00 Intake Total 2407 ml 901 ml Output Total 980 ml 555 ml Balance 1427 ml 346 ml IV Total 1468 ml 382 ml Tube Feeding 939 ml 319 ml Other 200 ml Output Urine Total 900 ml 425 ml Chest Tube Drainage Total 80 ml 130 ml # Bowel Movements 1 1 Physical Exam CONSTITUTIONAL/GENERAL: This is an adequately nourished patient, sedated, on the ventilator in [facility] [place]. TUBES/LINES/DRAINS: Central line, endotracheal tube, Santana catheter SKIN: No jaundice, rashes. He has multiple small, healing punctures and abrasions about his feet and ankles (reportedly from walking barefoot). CARDIOVASCULAR: Regular rate and rhythm with grade 2 systolic murmur. No JVD. Peripheral pulses symmetric. RESPIRATORY/CHEST: Symmetric, unlabored respirations. Scattered rhonchi GASTROINTESTINAL: Abdomen soft, nondistended. No hepato-splenomegaly, or palpable masses. No guarding. Bowel sounds present. GENITOURINARY: Without palpable bladder distension. Santana catheter in place. MUSCULOSKELETAL: Extremities without clubbing, cyanosis, or edema. No joint tenderness or effusion noted. No mottling or clubbing. He has multiple small punctures and abrasions about his feet and ankles (reportedly from walking barefoot). NEUROLOGICAL: Occasionally opens eyes slightly. Unresponsive to voice or painful stimulation. PSYCHIATRIC: Unable to assess due to clinical condition. . Diagnostic Tests Laboratory Laboratory Tests Test 11/19/16 11/19/16 11/20/16 11/20/16 03:35 14:10 03:30 07:55 White Blood Count 30.4 TH/MM3 27.4 TH/MM3 (4.0-11.0) (4.0-11.0) Red Blood Count 3.03 MIL/MM3 3.01 MIL/MM3 (4.50-5.90) (4.50-5.90) Hemoglobin 9.3 GM/DL 9.2 GM/DL (13.0-17.0) (13.0-17.0) Hematocrit 28.9 % 28.8 % (39.0-51.0) (39.0-51.0) Mean Corpuscular Volume 95.1 FL 95.5 FL (80.0-100.0) (80.0-100.0) Mean Corpuscular Hemoglobin 30.6 PG 30.5 PG (27.0-34.0) (27.0-34.0) Mean Corpuscular Hemoglobin 32.2 % 32.0 % Concent (32.0-36.0) (32.0-36.0) Red Cell Distribution Width 14.9 % 15.0 % (11.6-17.2) (11.6-17.2) Platelet Count 314 TH/MM3 301 TH/MM3 (150-450) (150-450) Mean Platelet Volume 7.2 FL 7.2 FL (7.0-11.0) (7.0-11.0) Neutrophils (%) (Auto) 94.3 % 92.1 % (16.0-70.0) (16.0-70.0) Lymphocytes (%) (Auto) 2.5 % 3.7 % (9.0-44.0) (9.0-44.0) Monocytes (%) (Auto) 2.9 % (0.0-8.0) 4.1 % (0.0-8.0) Eosinophils (%) (Auto) 0.0 % (0.0-4.0) 0.0 % (0.0-4.0) Basophils (%) (Auto) 0.3 % (0.0-2.0) 0.1 % (0.0-2.0) Neutrophils # (Auto) 28.7 TH/MM3 25.2 TH/MM3 (1.8-7.7) (1.8-7.7) Lymphocytes # (Auto) 0.8 TH/MM3 1.0 TH/MM3 (1.0-4.8) (1.0-4.8) Monocytes # (Auto) 0.9 TH/MM3 1.1 TH/MM3 (0-0.9) (0-0.9) Eosinophils # (Auto) 0.0 TH/MM3 0.0 TH/MM3 (0-0.4) (0-0.4) Basophils # (Auto) 0.1 TH/MM3 0.0 TH/MM3 (0-0.2) (0-0.2) CBC Comment AUTO DIFF DIFF FINAL Differential Total Cells 100 Counted Neutrophils % (Manual) 89 % (16-70) Band Neutrophils % 7 % (0-6) Monocytes % 4 % (0-8) Neutrophils # (Manual) 29.2 TH/MM3 (1.8-7.7) Differential Comment FINAL DIFF MANUAL Sodium Level 144 MEQ/L 148 MEQ/L (136-145) (136-145) Potassium Level 4.4 MEQ/L 4.1 MEQ/L (3.5-5.1) (3.5-5.1) Chloride Level 109 MEQ/L 111 MEQ/L (98-107) (98-107) Carbon Dioxide Level 30.5 MEQ/L 30.0 MEQ/L (21.0-32.0) (21.0-32.0) Anion Gap 5 MEQ/L (5-15) 7 MEQ/L (5-15) Blood Urea Nitrogen 27 MG/DL (7-18) 23 MG/DL (7-18) Creatinine 0.75 MG/DL 0.67 MG/DL (0.60-1.30) (0.60-1.30) Estimat Glomerular Filtration 108 ML/MIN 123 ML/MIN Rate (>89) (>89) Random Glucose 121 MG/DL 107 MG/DL (74-106) (74-106) Calcium Level 8.3 MG/DL 8.3 MG/DL (8.5-10.1) (8.5-10.1) Vancomycin Level Trough 18.7 MCG/ML 38.4 MCG/ML (5.0-10.0) (5.0-10.0) Phosphorus Level 3.4 MG/DL (2.5-4.9) Magnesium Level 2.4 MG/DL (1.5-2.5) Gentamicin Level Trough 1.1 MCG/ML (0.0-2.0) Test 11/20/16 11/20/16 13:30 13:45 Urine Opiates Screen NEG (NEG) Urine Barbiturates Screen NEG (NEG) Urine Amphetamines Screen NEG (NEG) Urine Benzodiazepines Screen NEG (NEG) Urine Cocaine Screen NEG (NEG) Urine Cannabinoids Screen POS (NEG) Vancomycin Level Trough 19.3 MCG/ML (5.0-10.0) Result Diagram: 11/20/16 0330 11/20/16 0330 Microbiology Microbiology Date/Time Procedure Status Source Growth 11/19/16 21:47 Aerobic Blood Culture - Preliminary Resulted Blood Peripheral NO GROWTH IN 2 DAYS 11/19/16 21:47 Anaerobic Blood Culture - Preliminary Resulted Blood Peripheral NO GROWTH IN 2 DAYS 11/19/16 21:50 Aerobic Blood Culture - Preliminary Resulted Blood Peripheral NO GROWTH IN 2 DAYS 11/19/16 21:50 Anaerobic Blood Culture - Preliminary Resulted Blood Peripheral NO GROWTH IN 2 DAYS Imaging Last Impressions Brain MRI 11/21/16 0000 Signed Impressions: Service Date/Time: November 12:33 - CONCLUSION: Multifocal areas of restricted diffusion primarily in the periventricular and subcortical white matter bilaterally but also cortically based in the right frontal lobe. Findings likely represent ischemic change likely related to septic emboli given the patient's clinical history. No abscess or enhancing lesion is visualized. Agustin Bonner MD Head CT 11/17/16 0600 Signed Impressions: Service Date/Time: Thursday, November 17, 2016 10:39 - CONCLUSION: No significant change has occurred. Deven Urrutia MD Chest X-Ray 11/17/16 0600 Signed Impressions: Service Date/Time: Thursday, November 17, 2016 03:36 - CONCLUSION: Diffuse airspace disease a large cavity in the right midlung zone is unchanged. Tubes and catheter are in good position. Sawyer Robertson MD Chest CT 11/16/16 0000 Signed Impressions: Service Date/Time: Wednesday, November 16, 2016 20:36 - CONCLUSION: 1. New right chest tube in the posterior superior right pleural space. There continues to be a moderate right pleural effusion primarily seen at the base. Some degree of loculation may be present inferiorly. The effusion does not layer posteriorly. There are scattered punctate areas of air within the pleural space inferiorly on the right. There is a solitary small area of air within the mild left pleural effusion. 2. Numerous irregular masses seen throughout both lungs some which are cavitary. These are nonspecific. Inflammatory masses needs be suspected. The multiplicity raises possibility of septic emboli. Agustin Price MD Abdomen X-Ray 11/15/16 0600 Signed Impressions: Service Date/Time: Tuesday, November 15, 2016 03:07 - CONCLUSION: Probable mild ileus involving loops of bowel on the left side. Reba Banerjee MD Abdomen/Pelvis CT 11/14/16 0000 Signed Impressions: Service Date/Time: October 09:55 - CONCLUSION: 1. Multiple loops of fluid-filled small bowel which are larger in caliber in comparison to yesterday's examination although not enlarged by size criteria. This may reflect mild enteritis versus developing mild adynamic ileus. 2. Persistent luminal narrowing at the gastroduodenal junction without definite focal mass. This is of uncertain clinical significance and likely reflects gastric contraction. Gastric mass/metastatic disease is not very likely based on appearance although it cannot be excluded. 3. 2 cm ill-defined hypodense lesion in the left renal mid pole with indeterminate density. Differential considerations include complex cyst versus metastatic disease in this patient with apparent diffuse metastatic disease in the chest. 4. Redemonstration of multiple bilateral cavitary masses at the lung bases with loculated right pleural effusion. Elder Long MD CT Angiography 11/13/16 1328 Signed Impressions: Service Date/Time: Sunday, November 13, 2016 15:50 - CONCLUSION: 1. Multiple cavitary lesions within both lungs with the largest measuring 9.5 cm in the right upper lobe. Differential diagnosis includes infectious and neoplastic etiologies. 2. Moderate sized right pleural effusion with adjacent compressive atelectasis and/or infiltrate. 3. Cardiomegaly and coronary artery calcifications. 4. Subcarinal mediastinal lymphadenopathy. 5. Degenerative changes throughout the thoracic spine. Jed Ponce MD Procedures Thoracentesis and right (pigtail) thoracostomy 11/14/16 INTUBATION 11/16/16 Bronchoscopy 11/16/16 . 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 Never . One estranged son in [place]. Spiritual: The patient is not and has not ever been spiritual or anglican person according to the family, but the family does want the hydraulic governor assembler to continue to come and visit. Legal: The patient lacks capacity for decision-making, and it it is uncertain whether he will regain that capacity. Initially, he had named his landlord Kerrie Correa as healthcare surrogate, but she makes it very clear by telephone [phone] on 11/18/16 that "since there is family around, I do not want to be the decision-maker for him in any way." I spoke with the patient's 21-year-old son Alexei Mohan [phone] in [place] by telephone, and he reports that he also does not want to be involved in the decision making; "he has not had any impact or played any role in my life, so that would not be appropriate for me to make decisions for him." Thus, the patient's mother Nellie Ying is his healthcare proxy decision-maker. Ethical issues impacting care: None . Important Contacts Mother: Nellie Ying <----> PROXY DECISION-MAKER -- [phone] Son: (estranged for many years) Adarsh Mohan [phone] . Prognosis The patient has multisystem organ failure and septic shock with a large vegetation on his aortic valve, and his overall prognosis is quite guarded. . Code Status: Full Code Plan * FULL CODE * DECISION-MAKING: The patient lacks capacity for decision-making, and it is unlikely that he will regain that capacity. The patient's mother Nellie Ying is his healthcare proxy decision-maker. * GOALS: The patient's family has been hoping that perhaps he will be able to get a new valve or that the current infection will somehow resolve with medical treatment. With his now documented multiple cerebral emboli and profound encephalopathy, his opportunity for valve replacement and return to functional status seems to be fading away. * SYMPTOMS: Any pain or dyspnea is being managed by appropriate sedation and the ventilator, and I have no additional medication recommendations at this time. * Palliative Care will continue to follow the patient during this hospitalization. . Time Spent Total Floor Time (mins): 40 Face to Face Time (mins): 28 >50% Counseling/Coord of Care: Yes (d/w RN) Radha Carpenter MD Nov 21, 2016 16:44
--- NOTE | 2016-11-21 18:50 | HHI.PR ---
Subjective Remarks Patient was intubated last night for acute hypoxemic resp failure and a right chest tube was placed for right hydroPTX in addition patient underwent bronch with BAL ( mucous plugs b/l suctioned to clear). He is sedated with Diprivan, Fentanyl. Patient is also on Flolan. Sister at BS Sedated with Diprivan and Fentanyl MRI brain multifocal area of septic emboli/infarct Objective Vital Signs Vital Signs Date Time Temp Pulse Resp B/P Pulse Ox O2 Delivery O2 Flow Rate FiO2 11/21/16 18:00 90 11/21/16 17:04 96 60 11/21/16 16:00 100 11/21/16 16:00 99.1 87 16 111/43 98 11/21/16 16:00 87 11/21/16 14:00 92 11/21/16 13:20 98 100 11/21/16 12:00 98 11/21/16 12:00 35 11/21/16 12:00 98.4 98 142/64 88 120/46 11/21/16 11:36 95 35 11/21/16 11:00 92 11/21/16 10:00 91 11/21/16 10:00 91 138/61 90 115/45 11/21/16 09:12 95 35 11/21/16 09:00 99 11/21/16 08:00 35 11/21/16 08:00 99.7 101 143/65 94 122/45 11/21/16 08:00 101 11/21/16 06:00 92 11/21/16 04:06 94 40 11/21/16 04:00 93 11/21/16 04:00 98.9 93 16 136/62 94 130/60 11/21/16 04:00 40 11/21/16 02:00 89 11/21/16 01:10 95 40 11/21/16 00:00 40 11/21/16 00:00 90 11/21/16 00:00 98.8 90 16 129/60 94 128/61 11/20/16 22:26 94 40 11/20/16 22:00 91 11/20/16 20:00 40 11/20/16 20:00 98.9 93 134/63 94 132/62 11/20/16 20:00 93 11/20/16 19:54 97 40 I/O 11/20/16 11/20/16 11/20/16 11/21/16 11/21/16 11/21/16 07:00 15:00 23:00 07:00 15:00 23:00 Intake Total 1182 ml 1421 ml 1327 ml 1080 ml 901 ml Output Total 610 ml 560 ml 500 ml 480 ml 555 ml Balance 572 ml 861 ml 827 ml 600 ml 346 ml IV Total 805 ml 863 ml 813 ml 655 ml 382 ml Tube Feeding 317 ml 458 ml 514 ml 425 ml 319 ml Other 60 ml 100 ml 200 ml Output Urine Total 500 ml 500 ml 500 ml 400 ml 425 ml Tube Feeding Residual Discard 0 ml 0 ml Chest Tube Drainage Total 110 ml 60 ml 80 ml 130 ml # Bowel Movements 1 1 1 1 Result Diagram: 11/20/1632911/20/16329 Objective Remarks GENERAL: Patient is 56 yo critically ill intubated , sedated and on pressors. SKIN: Warm and dry. HEAD: Normocephalic. EYES: No scleral icterus. No injection or drainage. NECK: Supple, trachea midline. No JVD or lymphadenopathy. CARDIOVASCULAR: Regular rate and rhythm without murmurs, gallops, or rubs. RESPIRATORY: Breath sounds equal bilaterally. No accessory muscle use. GASTROINTESTINAL: Abdomen soft, non-tender, nondistended. MUSCULOSKELETAL: No cyanosis, or edema. Neuro: Sedated and intubated A/P Assessment and Plan 1VDRF 2)Septic shock 3)Staph Aureus bacteremia 4)Empyema 6)Endocarditis involving AV 7)Leucocytosis 8)Cavitary pulm masses 2nd staph Aureus 9)Right hydroPTX PLAN: Continue with vent support keep sat >92% Bronchodilators, ICU vent bundle, on stress dose steroids- HC 100mg IV Q8 On PRVC/AC 20/520/1.10/10, 40% Abx per ID ( On Ancef, Zosyn, Gent)monitor for signs of infections ( Fever, WBC ) Follow up on BAL results/cx CTS is following- no intervention at this time. Chest tube to suction DW sister at palliative care following Emmett Bolton MD Nov 21, 2016 18:50
[2016-11-21] MEDS: RESP: ALBUTEROL 2.5 MG/3 ML NEB (PRN) INH (20:27)
[2016-11-21] MEDS: VASOPRESSIN INJ 40 UNITS in DEXTROSE 5% IN WATER 100ML INJ 98 ML IV SCH ×2 (21:30)
[2016-11-21 23:46] LABS: HEMATOCRIT 26.4 % (39.0-51.0); MEAN CELL VOLUME 97.2 FL (80.0-100.0); MEAN CORPUSCULAR HEMOGLOBIN 30.3 PG (27.0-34.0); MEAN CORPUSCULAR HGB CONC 31.2 % (32.0-36.0); PLATELET COUNT 285 TH/MM3 (150-450); RED BLOOD COUNT 2.71 MIL/MM3 (4.50-5.90); RED CELL DISTRIBUTION WIDTH 15.4 % (11.6-17.2); REVIEW FLAG FINAL; WHITE BLOOD COUNT 22.1 TH/MM3 (4.0-11.0)
[2016-11-22] VITALS (36 sets, daily range): BP systolic 96–169; BP diastolic 38–79; PULSE 86–128; RESP 15–41; TEMP 98.4–100; O2SAT 78–100
[2016-11-22] MEDS: ceFAZolin 2 GM PREMIX 50 ML IV SCH ×3 (01:05→16:57)
[2016-11-22] MEDS: PROPOFOL 1000 MG/100 ML INJ 100 ML IV SCH ×2 (01:06→03:27)
[2016-11-22] MEDS: HYDROCORTISONE SOD SUCCINATE 100 MG VIAL IV PUSH SCH ×3 (01:06→19:45)
[2016-11-22] MEDS: CHLORHEXIDINE GLUCONATE 2 % 1 PACK (2 CLOTHS) TOP SCH (01:07)
[2016-11-22] MEDS: GENTAMICIN/SOD CHL 80 MG/100 ML IV SCH ×2 (01:10→11:43)
[2016-11-22] MEDS: fentaNYL DRIP 250 ML IV SCH ×2 (03:27→19:44)
[2016-11-22 04:21] LABS: AUTOMATED NEUTROPHIL # 19.1 TH/MM3 (1.8-7.7); BASOPHIL % 0.1 % (0.0-2.0); EOSINOPHIL % 0.1 % (0.0-4.0); HEMATOCRIT 25.1 % (39.0-51.0); HEMO FLAGS DIFF FINAL; LYMPH % 3.5 % (9.0-44.0); LYMPHOCYTE # 0.7 TH/MM3 (1.0-4.8); MEAN CELL VOLUME 95.5 FL (80.0-100.0); MEAN CORPUSCULAR HGB CONC 32.5 % (32.0-36.0); NEUT % 91.3 % (16.0-70.0); PLATELET COUNT 285 TH/MM3 (150-450); RED BLOOD COUNT 2.62 MIL/MM3 (4.50-5.90); RED CELL DISTRIBUTION WIDTH 15.1 % (11.6-17.2)
[2016-11-22 04:42] LABS: MAGNESIUM 2.6 MG/DL (1.5-2.5)
[2016-11-22] MEDS: INSULIN ASPART SUPPLEMENTAL SCALE SQ SCH ×4 (05:00→22:40)
--- NOTE | 2016-11-22 05:48 | RADRPT ---
EXAM DATE/TIME: 11/22/2016 04:25 [facility] COMPARISON: CHEST SINGLE AP, November 17, 2016, 3:36. INDICATIONS : Evalaute for respiratory disease. MEDICAL HISTORY : Sepsis. Cavitary mass. SURGICAL HISTORY : None. ENCOUNTER: Subsequent ACUITY: 1 week PAIN SCORE: Non-responsive. LOCATION: chest FINDINGS: A single view of the chest demonstrates stable position of the right-sided thoracostomy tube. A promi nent cavitary lesion in the right midlung actually appear slightly smaller when compared to the prior . Improving right-sided effusion but there may be a loculated pneumothorax laterally in the right low er lung with progressive removal of the right-sided effusion. Left basilar consolidation/effusion. Mu ltiple nodular densities identified in the pulmonary parenchyma on the prior exam are less conspicuou s on the current exam. Life support tubes are all stable in position. Osseous spurring off the inferi or aspect of the left clavicle in the region of the coracoclavicular ligament. Osseous structures are otherwise intact. CONCLUSION: 1. Cavitary lesion in the right mid lung appears somewhat smaller when compared to prior. Multiple no dular densities previously seen in the left lung are less conspicuous on the current exam. 2. Stable position of life support tubes including a right sided thoracostomy tube. There may be a de veloping loculated pneumothorax inferolaterally on the right with marked improvement in the previousl y seen right-sided effusion. 3. Left basilar consolidation/effusion David Rojas MD on November 22, 2016 at 5:40 Board Certified Radiologist. This report was verified electronically.
[2016-11-22] MEDS: METOCLOPRAMIDE HCL 10 MG/2 ML VIAL IV SCH ×3 (06:18→22:39)
[2016-11-22] MEDS: VANCOMYCIN INJ 1,250 MG in SODIUM CHLOR 0.9% 250 ML INJ 250 ML IV SCH (06:18)
[2016-11-22] MEDS: ARTIFICIAL TEARS OPTH SOLN 15 ML BTL EACH EYE SCH ×3 (06:19→21:16)
[2016-11-22] MEDS: POLYETHYLENE GLYCOL 17 GM PKG PO SCH ×2 (08:10→19:45)
[2016-11-22] MEDS: FOLIC ACID 1 MG TAB PO SCH (08:10)
[2016-11-22] MEDS: LACTULOSE SYRUP 20 GM/30 ML CUP PO SCH (08:10)
[2016-11-22] MEDS: MULTIVITAMIN TAB PO SCH (08:10)
[2016-11-22] MEDS: THIAMINE HCL 100 MG TAB PO SCH (08:10)
[2016-11-22] MEDS: PANTOPRAZOLE SODIUM 40 MG VIAL IV SCH ×2 (08:11→19:45)
[2016-11-22] MEDS: SODIUM CHLORIDE 0.9% FLUSH 10 ML FLUSH IV FLUSH SCH ×2 (08:11→19:46)
[2016-11-22] MEDS: SODIUM CHLORIDE 0.9% FLUSH 10 ML FLUSH IVF SCH (08:11)
[2016-11-22] MEDS: CHLORHEXIDINE 0.12% (ORAL KIT) 15 ML CUP MT SCH ×2 (08:12→19:46)
[2016-11-22] MEDS: DOCUSATE SODIUM 50 MG/SENNA 8.6 MG TAB PO SCH ×2 (08:12→19:45)
[2016-11-22] MEDS: HEPARIN SODIUM - SQ 10,000 UNITS/ML VIAL SQ SCH ×2 (08:12→19:45)
--- NOTE | 2016-11-22 09:33 | HHI.CCPN ---
Subjective Remarks/Hospital Course 56-year-old male is brought to the emergency department by EMS for evaluation of generalized weakness, confusion for about 2 weeks, and also increasing shortness of breath. His oxygen saturation was 88% on room air. EMS administered breathing treatments and Solu-Medrol 125 mg 1 and placed him on nasal cannula. Patient states that he had been sick for almost 10 days, but he is a poor historian. He had a productive cough, but reports no hematemesis or weight loss. He states that it was his neighbor who made him called EMS. He has no past medical history and last time had seen a doctor was about 15 years ago. He denies any fevers but reports some night sweats and chills. He was tachycardic with a heart rate of 115 bpm, had severe leukocytosis with a white count of 35,000 with 91% neutrophils. CMP shows hyponatremia with a sodium of 126. Lactic acid is 2.4. His Chest x-ray shows large 7.7 x 7.8 cm cavitary right midlung lesion with associated right-sided pleural effusion. Subcentimeter left mid lung pulmonary nodules. Patient received 1 L normal saline bolus and Zosyn 4.5 g and Zithromax 500 mg IV and was placed on TB/ respiratory isolation. He has been being in [facility] 2 years ago increasing his risk of tuberculosis. CT pulmonary angiogram negative for PE but showed multiple cavitary lesions within both lungs with the largest measuring 9.5 cm in the right upper lobe. Moderate size right pleural effusion. I evaluated the patient in the emergency department. Patient appears critically ill in moderate distress mildly tachypneic, sweating. I performed a bedside ultrasound which showed a right effusion which is large. The thoracentesis was performed and 1 L of cloudy dark pleural fluid was removed. Patient will be continued on Zosyn and Levaquin and vancomycin. ID consulted and I discussed with Dr. Steele-she recommended no empiric treatments for TB. 11/14/16: Patient seen and examined complaints of severe epigastric and periumbilical abdominal pain. Patient remains oriented to person. His white count is slightly improved from 35,000-28,9000. Na improved to 136. I have ordered a STAT CT abd/pelvis with IV contrast. Chest x-ray shows reaccumulation of right pleural effusion-fluid chemistries are pending but cell count indicates at least a parapneumonic effusion and patient will need a pigtail chest tube 11/15: Patient pulled his right-sided pigtail catheter out overnight last night. Currently nasal cannula in no acute distress. Afebrile. Continues to have a leukocytosis. 11/16: Currently on room air. Hold out his IVs reportedly overnight last night. Requesting diet. Awake and alert and following commands. Subjective 11/17: Intubated yesterday due to acute hypercapnic respiratory failure. Hypoxic post intubation requiring right chest tube placement, bronchoscopy and Flolan. Bronchoscopy revealed thick mucous plugging at bilateral right and left mainstem which were clear. Improved oxygenation over the past 12 hours. Afebrile. 11/18 Patient remains sedated with Diprivan, Fentanyl and intubated. On Vasopressin and Neosyn 120 mics. 11/19 Patient is sedated with Diprivan, Fentanyl and intubated. Afebrile. Off all pressors. Afebrile. WBC is trending down 30 today from 50. 11/20: Remains severely septic and encephalopathic even though weaned off all pressors. White count still elevated but trending down. Became extremely tachycardic and tachypneic on lowering sedation. We'll check MRI of the brain to rule out embolic infarct. Family at the bedside updated 11/21 Remains heavily sedated, remains encephalopathic. MRI brain is pending. Family is at bedside. Remains critically with resp failure severe from endocarditis, now unable to wean off the ventilator due to severe metabolic encephalopathy 11/22 No events overnight. Sedated with Diprivan, fentanyl and intubated. Afebrile. MRI brain yesterday showed ischemic changes likely related to septic emboli. Objective Vital Signs Date Time Temp Pulse Resp B/P Pulse Ox O2 Delivery O2 Flow Rate FiO2 11/22/16 07:46 95 45 11/22/16 06:00 100 11/22/16 04:00 98.5 16 131/59 114/43 Intake and Output 11/21/16 11/21/16 11/22/16 08:00 16:00 00:00 Intake Total 1080 ml 901 ml Output Total 480 ml 555 ml Balance 600 ml 346 ml Result Diagram: 11/22/16 0330 11/22/16 0330 Other Results Laboratory Tests Test 11/21/16 11/22/16 22:12 03:30 White Blood Count 22.1 TH/MM3 21.0 TH/MM3 Red Blood Count 2.71 MIL/MM3 2.62 MIL/MM3 Hemoglobin 8.2 GM/DL 8.1 GM/DL Hematocrit 26.4 % 25.1 % Mean Corpuscular Volume 97.2 FL 95.5 FL Mean Corpuscular Hemoglobin 30.3 PG 31.0 PG Mean Corpuscular Hemoglobin 31.2 % 32.5 % Concent Red Cell Distribution Width 15.4 % 15.1 % Platelet Count 285 TH/MM3 285 TH/MM3 Mean Platelet Volume 7.5 FL 7.5 FL Neutrophils (%) (Auto) 91.3 % Lymphocytes (%) (Auto) 3.5 % Monocytes (%) (Auto) 5.0 % Eosinophils (%) (Auto) 0.1 % Basophils (%) (Auto) 0.1 % Neutrophils # (Auto) 19.1 TH/MM3 Lymphocytes # (Auto) 0.7 TH/MM3 Monocytes # (Auto) 1.0 TH/MM3 Eosinophils # (Auto) 0.0 TH/MM3 Basophils # (Auto) 0.0 TH/MM3 CBC Comment DIFF FINAL Differential Comment Creatinine 0.65 MG/DL Estimat Glomerular Filtration 128 ML/MIN Rate Magnesium Level 2.6 MG/DL Imaging Last Impressions Chest X-Ray 11/22/16 06 Signed Impressions: Service Date/Time: Tuesday, November 22, 2016 04:25 - CONCLUSION: 1. Cavitary lesion in the right mid lung appears somewhat smaller when compared to prior. Multiple nodular densities previously seen in the left lung are less conspicuous on the current exam. 2. Stable position of life support tubes including a right sided thoracostomy tube. There may be a developing loculated pneumothorax inferolaterally on the right with marked improvement in the previously seen right-sided effusion. 3. Left basilar consolidation/effusion David Rojas MD Brain MRI 11/21/16 0000 Signed Impressions: Service Date/Time: November 12:33 - CONCLUSION: Multifocal areas of restricted diffusion primarily in the periventricular and subcortical white matter bilaterally but also cortically based in the right frontal lobe. Findings likely represent ischemic change likely related to septic emboli given the patient's clinical history. No abscess or enhancing lesion is visualized. Agustin Bonner MD Head CT 11/17/16 0600 Signed Impressions: Service Date/Time: Thursday, November 17, 2016 10:39 - CONCLUSION: No significant change has occurred. Deven Urrutia MD Chest CT 11/16/16 0000 Signed Impressions: Service Date/Time: Wednesday, November 16, 2016 20:36 - CONCLUSION: 1. New right chest tube in the posterior superior right pleural space. There continues to be a moderate right pleural effusion primarily seen at the base. Some degree of loculation may be present inferiorly. The effusion does not layer posteriorly. There are scattered punctate areas of air within the pleural space inferiorly on the right. There is a solitary small area of air within the mild left pleural effusion. 2. Numerous irregular masses seen throughout both lungs some which are cavitary. These are nonspecific. Inflammatory masses needs be suspected. The multiplicity raises possibility of septic emboli. Agustin Price MD Abdomen X-Ray 11/15/16 0600 Signed Impressions: Service Date/Time: Tuesday, November 15, 2016 03:07 - CONCLUSION: Probable mild ileus involving loops of bowel on the left side. Reba Banerjee MD Abdomen/Pelvis CT 11/14/16 0000 Signed Impressions: Service Date/Time: October 09:55 - CONCLUSION: 1. Multiple loops of fluid-filled small bowel which are larger in caliber in comparison to yesterday's examination although not enlarged by size criteria. This may reflect mild enteritis versus developing mild adynamic ileus. 2. Persistent luminal narrowing at the gastroduodenal junction without definite focal mass. This is of uncertain clinical significance and likely reflects gastric contraction. Gastric mass/metastatic disease is not very likely based on appearance although it cannot be excluded. 3. 2 cm ill-defined hypodense lesion in the left renal mid pole with indeterminate density. Differential considerations include complex cyst versus metastatic disease in this patient with apparent diffuse metastatic disease in the chest. 4. Redemonstration of multiple bilateral cavitary masses at the lung bases with loculated right pleural effusion. Elder Long MD CT Angiography 11/13/16 1328 Signed Impressions: Service Date/Time: Sunday, November 13, 2016 15:50 - CONCLUSION: 1. Multiple cavitary lesions within both lungs with the largest measuring 9.5 cm in the right upper lobe. Differential diagnosis includes infectious and neoplastic etiologies. 2. Moderate sized right pleural effusion with adjacent compressive atelectasis and/or infiltrate. 3. Cardiomegaly and coronary artery calcifications. 4. Subcarinal mediastinal lymphadenopathy. 5. Degenerative changes throughout the thoracic spine. Jed Ponce MD Objective Remarks GENERAL: 86-year-old male, critically ill currently orotracheally intubated SKIN: Warm and dry. Scattered skin lesions erythematous predominantly left lower extremity HEAD: Normocephalic and atraumatic. EYES: No injection, drainage. Pupils equally round and reactive around 3 mm bilaterally 2 mm. ENT: No nasal drainage noted. Oropharynx is clear. NECK: Supple. No JVD or thyromegaly or lymphadenopathy. Left IJ is clean dry and intact CARDIOVASCULAR: Tachycardic, RR. S1, S2. No S4. Aortic regurgitation murmur not appreciated. RESPIRATORY: Diminished breath sounds right lower lobe. Mild expiratory wheezing and few crackles. Right chest tube is clean dry and intact, 140 ml output in 24 hours GASTROINTESTINAL: Abdomen is soft, no rebound or guarding on examination. Hypoactive bowel sounds are appreciated MUSCULOSKELETAL: Mild swelling of bilateral ankles. Multiple erythematous raised lesions on bilateral lower extremity predominantly left lower leg NEUROLOGICAL: Currently sedated on the ventilator propofol and fentanyl ventilator synchrony. Moving all 4 extremity spontaneously when sedation is lightened. Do not follow commands Date of Insertion: Nov 16, 2016 Line: Central Venous Catheter Side: Left Location: Internal, Jugular A/P Assessment and Plan NEURO/PSYCH: Metabolic encephalopathy On Diprivan and Fentanyl infusion for sedation/analgesia while intubated Goal of RA SS -2. Daily sedation vacation. MRI brain 11/21: Ischemic changes likely related to septic emboli. Neuro eval CT head 11/17 revealed no acute intracranial findings currently no signs of gross embolic events. Check MRI brain with and without contrast-pending today On Thiamine/MVI/Folic acid RESP: Bilateral cavitary lung lesions/most likely cavitating pneumonia from staph aureus Acute respiratory failure Large right loculated pleural effusion/empyema [facility] 16[address]/1.05/23/49. Continue with vent support keep sat >90%.Decrease FIO2 40 % as tiki. Duo nebs every 4 hours with albuterol nebs every 2 hours. Vent bundle. Off Flolan Right-sided chest tube #28 [place]- monitor CT drainage( Drained 60 ml overnight) - Right thoracentesis with 1 L cloudy yellow fluid removed, fluid cell studies WBC 2,600, - Patient status post pigtail catheter placement 11/14, 445 cc prior pulled out 11/15. Evaluated by Dr. Samuels/CT surgery. Per his recommendations, No indication for decortication at this time CV: Aortic valve endocarditis/large vegetation Sinus tachycardia Atrial fibrillation with RVR early normal sinus rhythm Elevated troponin - likely rate dependent Monitor HR and BP keep MAP>65mmHg - Stress dose steroids- Decrease Hydrocortisone 50mg IV Q12 - 2-D echocardiogram revealed EF 55-60%. Moderate AR. CHANDNI revealed 17 mm x 17 millimeter mobile mass on aortic valve. For a limited echo today - CT surgery. Recommendations no intervention at this time - Repeat limited Echo on Friday (11/22/16) GI: Hypoalbuminemia Continue tube feeds with Glucerna 1.5 goal 55 cc an hour. IV Protonix for GI prophylaxis Chinyere-Colace and MiraLAX for bowel regimen Reglan for bowel motility - CT of the abdomen pelvis with IV contrast revealed possible ileus., Gastric contraction at gastric duodenal junction. 2 mm renal cyst. - KUB 11/15 revealed improving mild ileus. GI is following. : Monitor renal function, I/O's, electrolytes replacement per protocol. Check BMP ID: Severe sepsis Multilobar cavitating pneumonia secondary staph aureus Staph aureus empyema - Continue with abx per ID ( IV Vanco, Ancef, Gent) monitor for signs of infections ( Fever, WBC) WBC is trending down Pertinent cultures 11/13 - blood cultures 2 - staph aureus 11/13 and 11/14- pleural fluid- staph aureus 11/14- sputum- staph aureus 11/15 - blood cultures 2 - pending 11/16 - Bronch samples: Staph Aureus 11/16 Sputum: Staph Aureus HEME: Leukocytosis Normocytic anemia - Monitor CBC, CMP, coags ENDO: SSI with accuchecks for glycemic control TSH 0.6. PROPH: - Bilateral lower extremity SCDs. Heparin SQ, IV Protonix for prophylaxis LINES: - Left IJ CVP, Right Femoral Art line placed 11/16 Palliative care is following Care time 30 minutes. Noam Calhoun MD Nov 22, 2016 09:33
[2016-11-22] MEDS: DEXMEDETOMIDINE INJ 200 MCG in SODIUM CHLORIDE 0.9% INJ 50 ML IV SCH ×6 (10:48→21:16)
--- NOTE | 2016-11-22 11:22 | HHI.IDPN ---
Note Infectious Disease Note Patient intubated. On the vent. Sedated weaned and he follows commands. Becomes agitated and tachycardic when sedation is lifted. Afebrile. D/W RN. Large vegetation on AV and moderate aortic regurg on CHANDNI. Culture of blood 11/13, 11/15, 11/16. - Staph aureus. &/4 pending. Culture of pleural fluid 11/14 - staph aureus. Presented to the emergency department with a 2-week history of weakness. He was noted to have low oxygen saturation. He reported that he had productive cough over the past couple of weeks and was experiencing shortness of breath. ALLERGIES NO KNOWN DRUG ALLERGIES. OBJECTIVE: Vital Signs Date Time Temp Pulse Resp B/P Pulse Ox O2 Delivery O2 Flow Rate FiO2 11/22/16 10:00 100 11/22/16 08:00 91 11/22/16 08:00 45 11/22/16 08:00 98.4 91 16 130/61 95 119/48 11/22/16 07:46 95 45 11/22/16 06:00 100 11/22/16 04:14 95 50 11/22/16 04:00 93 11/22/16 04:00 98.5 93 16 131/59 96 114/43 11/22/16 04:00 50 11/22/16 02:00 91 11/22/16 01:47 95 60 11/22/16 00:00 99.0 92 16 128/58 95 112/42 11/22/16 00:00 92 11/22/16 00:00 40 11/21/16 22:00 100 11/21/16 20:27 96 60 11/21/16 20:00 90 11/21/16 20:00 99.6 92 16 131/59 96 116/45 11/21/16 20:00 40 11/21/16 18:00 90 11/21/16 17:04 96 60 11/21/16 16:00 100 11/21/16 16:00 99.1 87 16 111/43 98 11/21/16 16:00 87 11/21/16 14:00 92 11/21/16 13:20 98 100 11/21/16 12:00 98 11/21/16 12:00 35 11/21/16 12:00 98.4 98 142/64 88 120/46 11/21/16 11:36 95 35 11/21/16 11/21/16 11/22/16 15:00 23:00 07:00 Intake Total 901 ml 2714 ml Output Total 555 ml 1010 ml Balance 346 ml 1704 ml IV Total 382 ml 1763 ml Tube Feeding 319 ml 951 ml Other 200 ml Output Urine Total 425 ml 950 ml Chest Tube Drainage Total 130 ml 60 ml # Bowel Movements 1 1 Laboratory Tests Test 11/21/16 11/22/16 22:12 03:30 White Blood Count 22.1 TH/MM3 21.0 TH/MM3 Red Blood Count 2.71 MIL/MM3 2.62 MIL/MM3 Hemoglobin 8.2 GM/DL 8.1 GM/DL Hematocrit 26.4 % 25.1 % Mean Corpuscular Volume 97.2 FL 95.5 FL Mean Corpuscular Hemoglobin 30.3 PG 31.0 PG Mean Corpuscular Hemoglobin 31.2 % 32.5 % Concent Red Cell Distribution Width 15.4 % 15.1 % Platelet Count 285 TH/MM3 285 TH/MM3 Mean Platelet Volume 7.5 FL 7.5 FL Neutrophils (%) (Auto) 91.3 % Lymphocytes (%) (Auto) 3.5 % Monocytes (%) (Auto) 5.0 % Eosinophils (%) (Auto) 0.1 % Basophils (%) (Auto) 0.1 % Neutrophils # (Auto) 19.1 TH/MM3 Lymphocytes # (Auto) 0.7 TH/MM3 Monocytes # (Auto) 1.0 TH/MM3 Eosinophils # (Auto) 0.0 TH/MM3 Basophils # (Auto) 0.0 TH/MM3 CBC Comment DIFF FINAL Differential Comment Laboratory Tests Test 11/22/16 03:30 Creatinine 0.65 MG/DL Estimat Glomerular Filtration 128 ML/MIN Rate Magnesium Level 2.6 MG/DL Microbiology Date/Time Procedure Status Source Growth 11/19/16 21:47 Aerobic Blood Culture - Preliminary Resulted Blood Peripheral NO GROWTH IN 3 DAYS 11/19/16 21:47 Anaerobic Blood Culture - Preliminary Resulted Blood Peripheral NO GROWTH IN 3 DAYS 11/19/16 21:50 Aerobic Blood Culture - Preliminary Resulted Blood Peripheral NO GROWTH IN 3 DAYS 11/19/16 21:50 Anaerobic Blood Culture - Preliminary Resulted Blood Peripheral NO GROWTH IN 3 DAYS Microbiology Date/Time Procedure Status Source Growth 11/19/16 21:47 Aerobic Blood Culture - Preliminary Resulted Blood Peripheral NO GROWTH IN 1 DAY 11/19/16 21:47 Anaerobic Blood Culture - Preliminary Resulted Blood Peripheral NO GROWTH IN 1 DAY 11/19/16 21:50 Aerobic Blood Culture - Preliminary Resulted Blood Peripheral NO GROWTH IN 1 DAY 11/19/16 21:50 Anaerobic Blood Culture - Preliminary Resulted Blood Peripheral NO GROWTH IN 1 DAY Microbiology Date/Time Procedure Status Source Growth 11/16/16 16:40 Gram Stain - Final Complete Sputum Endotracheal 11/16/16 16:40 Sputum Culture - Final Complete Staphylococcus Aureus 11/16/16 22:00 Gram Stain - Final Resulted Bronchial Washings Right Upper Lobe 11/16/16 22:00 Bronchial Culture - Preliminary Resulted Staphylococcus Aureus 11/16/16 22:00 Acid Fast Stain Worksheet Bronchial Washings Right Upper Lobe Pending 11/16/16 22:00 Mycobacterial Culture Worksheet Bronchial Washings Right Upper Lobe Pending 11/16/16 22:00 Fungal Smear - Final Resulted Bronchial Washings Right Upper Lobe NO FUNGAL ELEMENTS SEEN. 11/16/16 22:00 Fungal Culture Resulted Bronchial Washings Right Upper Lobe Pending IMAGING: Chest X-Ray 11/22/16 0600 Signed Impressions: Service Date/Time: Tuesday, November 22, 2016 04:25 - CONCLUSION: 1. Cavitary lesion in the right mid lung appears somewhat smaller when compared to prior. Multiple nodular densities previously seen in the left lung are less conspicuous on the current exam. 2. Stable position of life support tubes including a right sided thoracostomy tube. There may be a developing loculated pneumothorax inferolaterally on the right with marked improvement in the previously seen right-sided effusion. 3. Left basilar consolidation/effusion David Rojas MD Brain MRI 11/21/16 0000 Signed Impressions: Service Date/Time: November 12:33 - CONCLUSION: Multifocal areas of restricted diffusion primarily in the periventricular and subcortical white matter bilaterally but also cortically based in the right frontal lobe. Findings likely represent ischemic change likely related to septic emboli given the patient's clinical history. No abscess or enhancing lesion is visualized. Agustin Bonner MD Head CT 11/17/16 0600 Signed Impressions: Service Date/Time: Thursday, November 17, 2016 10:39 - CONCLUSION: No significant change has occurred. Deven Urrutia MD Chest X-Ray 11/17/16 0600 Signed Impressions: Service Date/Time: Thursday, November 17, 2016 03:36 - CONCLUSION: Diffuse airspace disease a large cavity in the right midlung zone is unchanged. Tubes and catheter are in good position. Sawyer Robertson MD Chest CT 11/16/16 0000 Signed Impressions: Service Date/Time: Wednesday, November 16, 2016 20:36 - CONCLUSION: 1. New right chest tube in the posterior superior right pleural space. There continues to be a moderate right pleural effusion primarily seen at the base. Some degree of loculation may be present inferiorly. The effusion does not layer posteriorly. There are scattered punctate areas of air within the pleural space inferiorly on the right. There is a solitary small area of air within the mild left pleural effusion. 2. Numerous irregular masses seen throughout both lungs some which are cavitary. These are nonspecific. Inflammatory masses needs be suspected. The multiplicity raises possibility of septic emboli. Agustin Price MD Abdomen X-Ray 11/15/16 0600 Signed Impressions: Service Date/Time: Tuesday, November 15, 2016 03:07 - CONCLUSION: Probable mild ileus involving loops of bowel on the left side. Reba Banerjee MD Abdomen/Pelvis CT 11/14/16 0000 Signed Impressions: Service Date/Time: October 09:55 - CONCLUSION: 1. Multiple loops of fluid-filled small bowel which are larger in caliber in comparison to yesterday's examination although not enlarged by size criteria. This may reflect mild enteritis versus developing mild adynamic ileus. 2. Persistent luminal narrowing at the gastroduodenal junction without definite focal mass. This is of uncertain clinical significance and likely reflects gastric contraction. Gastric mass/metastatic disease is not very likely based on appearance although it cannot be excluded. 3. 2 cm ill-defined hypodense lesion in the left renal mid pole with indeterminate density. Differential considerations include complex cyst versus metastatic disease in this patient with apparent diffuse metastatic disease in the chest. 4. Redemonstration of multiple bilateral cavitary masses at the lung bases with loculated right pleural effusion. Elder Long MD CT Angiography 11/13/16 7538 Signed Impressions: Service Date/Time: Sunday, November 13, 2016 15:50 - CONCLUSION: 1. Multiple cavitary lesions within both lungs with the largest measuring 9.5 cm in the right upper lobe. Differential diagnosis includes infectious and neoplastic etiologies. 2. Moderate sized right pleural effusion with adjacent compressive atelectasis and/or infiltrate. 3. Cardiomegaly and coronary artery calcifications. 4. Subcarinal mediastinal lymphadenopathy. 5. Degenerative changes throughout the thoracic spine. Jed Ponce MD PHYSICAL EXAMINATION GENERAL: On the vent. HEENT: No icterus. Oropharynx moist mucosa without lesions. NECK: Supple without adenopathy. LUNGS: Coarse bilateral rhonchi. HEART: Normal S1-S2 without audible murmurs, rubs or gallops. ABDOMEN: Bowel sounds present, soft. Distended. EXTREMITIES: No clubbing or cyanosis or edema. SKIN: Punctate erythematous lesions at the lower extremities including the left tibia, left foot and right foot which blanches with palpation. NEURO: Sedated. PSYCH: unable to assess. IMPRESSION 1. Sepsis. Endocarditis Aortic valve Staph aureus (MSSA). 2. Cavitary pulmonary lesions. Embolic./ [employer] ischemic lesions suggesting embolic lesions. 3. Pneumonia/parapneumonic effusion- MSSA. 4. Skin lesions which potentially could be embolic. 5. Leukocytosis secondary to infection. WBC lower. 6. Fever secondary to infection. Temp lower. Remains critically ill. RECOMMENDATIONS 1. Continue IV Ancef. 2. Stop Vancomycin. 3. Continue Gentamycin. 4. Monitor repeat blood culture. 5. Monitor white blood cell count. Decreasing. 6. Monitor temp. . Slava Garcia MD Nov 22, 2016 11:22
[2016-11-22] MEDS ORDERED: PHARMACY ORDERED LAB ONE (11:45)
[2016-11-22] MEDS ORDERED: PHARMACY ORDERED LAB-VANCO TROUGH ONE (13:45)
--- NOTE | 2016-11-22 17:28 | HHI.HCPN ---
Reason for visit a. To assist with evaluation and management of symptoms including: dyspnea b. To assist medical decision maker(s) with: better understanding of current medical conditions; weighing benefits/burdens of medical treatment options; making medical treatment decisions. . Subjective/Interval History INTERVAL NOTE: The patient is seen in the C and follow-up to reevaluate dyspnea, encephalopathy, and possible pain. The patient remains on the ventilator, and he remains off of pressors. He is more alert today, following some simple commands now. CPAP trials have been initiated, and he tolerated a couple hours today. 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 The chest x-ray today seems to be revealing some resolving areas of infection/cavitations. . Advance Directives Living Will: Never completed Health Care Surrogate: Copy in medical record Durable Power of Clin Nurse: Never completed Advance Directive Specifics Health Care Surrogate(s): The patient lacks capacity for decision-making, and it is uncertain whether he will regain that capacity. Initially, he had named his landlord Kerrie Correa as healthcare surrogate on 11/14/16, but she makes it very clear by telephone on 11/18/16 that "since there is family around, I do not want to be the decision-maker for him in any way." I spoke with the patient's 21-year-old son Alexei Mohan [phone] in [employer] by telephone, and he reports that he also does not want to be involved in the decision making; "he has not had any impact or played any role in my life, so that would not be appropriate for me to make decisions for him." Thus, the patient's mother Nellie Ying is his healthcare proxy decision-maker. Objective Vital Signs Date Time Temp Pulse Resp B/P Pulse Ox O2 Delivery O2 Flow Rate FiO2 11/22/16 16:03 92 45 11/22/16 16:00 45 11/22/16 16:00 98.8 86 21 111/53 93 105/42 11/22/16 16:00 86 11/22/16 14:38 92 80 11/22/16 14:00 115 11/22/16 14:00 45 11/22/16 12:00 127 11/22/16 12:00 40 11/22/16 12:00 100.0 127 41 146/76 93 151/62 11/22/16 11:35 94 40 11/22/16 10:00 100 11/22/16 10:00 40 11/22/16 08:00 91 11/22/16 08:00 45 11/22/16 08:00 98.4 91 16 130/61 95 119/48 11/22/16 07:46 95 45 11/22/16 06:00 100 11/22/16 04:14 95 50 11/22/16 04:00 93 11/22/16 04:00 98.5 93 16 131/59 96 114/43 11/22/16 04:00 50 11/22/16 02:00 91 11/22/16 01:47 95 60 11/22/16 00:00 99.0 92 16 128/58 95 112/42 11/22/16 00:00 92 11/22/16 00:00 40 11/21/16 22:00 100 11/21/16 20:27 96 60 11/21/16 20:00 90 11/21/16 20:00 99.6 92 16 131/59 96 116/45 11/21/16 20:00 40 11/21/16 18:00 90 Intake & Output 11/22/16 11/22/16 07:00 19:00 Intake Total 2714 ml 1292 ml Output Total 1010 ml 1510 ml Balance 1704 ml -218 ml IV Total 1763 ml 763 ml Tube Feeding 951 ml 529 ml Output Urine Total 950 ml 650 ml Stool Total 700 ml Chest Tube Drainage Total 60 ml 160 ml # Bowel Movements 1 3 Physical Exam CONSTITUTIONAL/GENERAL: This is an adequately nourished patient, sedated, on the ventilator in [facility]. TUBES/LINES/DRAINS: Central line, endotracheal tube, Santana catheter SKIN: No jaundice, rashes. He has multiple small, healing punctures and abrasions about his feet and ankles (reportedly from walking barefoot). CARDIOVASCULAR: Regular rate and rhythm with grade 2 systolic murmur. No JVD. Peripheral pulses symmetric. RESPIRATORY/CHEST: Symmetric, unlabored respirations. Scattered rhonchi GASTROINTESTINAL: Abdomen soft, nondistended. No hepato-splenomegaly, or palpable masses. No guarding. Bowel sounds present. MUSCULOSKELETAL: Extremities without clubbing, cyanosis, or edema. No joint tenderness or effusion noted. No mottling or clubbing. He has multiple small punctures and abrasions about his feet and ankles (reportedly from walking barefoot). NEUROLOGICAL: Opens eyes, tracks, follows some simple commands. PSYCHIATRIC: Seems restless at times . Diagnostic Tests Laboratory Laboratory Tests Test 11/20/16 11/20/16 11/20/16 11/20/16 03:30 07:55 13:30 13:45 White Blood Count 27.4 TH/MM3 (4.0-11.0) Red Blood Count 3.01 MIL/MM3 (4.50-5.90) Hemoglobin 9.2 GM/DL (13.0-17.0) Hematocrit 28.8 % (39.0-51.0) Mean Corpuscular Volume 95.5 FL (80.0-100.0) Mean Corpuscular Hemoglobin 30.5 PG (27.0-34.0) Mean Corpuscular Hemoglobin 32.0 % Concent (32.0-36.0) Red Cell Distribution Width 15.0 % (11.6-17.2) Platelet Count 301 TH/MM3 (150-450) Mean Platelet Volume 7.2 FL (7.0-11.0) Neutrophils (%) (Auto) 92.1 % (16.0-70.0) Lymphocytes (%) (Auto) 3.7 % (9.0-44.0) Monocytes (%) (Auto) 4.1 % (0.0-8.0) Eosinophils (%) (Auto) 0.0 % (0.0-4.0) Basophils (%) (Auto) 0.1 % (0.0-2.0) Neutrophils # (Auto) 25.2 TH/MM3 (1.8-7.7) Lymphocytes # (Auto) 1.0 TH/MM3 (1.0-4.8) Monocytes # (Auto) 1.1 TH/MM3 (0-0.9) Eosinophils # (Auto) 0.0 TH/MM3 (0-0.4) Basophils # (Auto) 0.0 TH/MM3 (0-0.2) CBC Comment DIFF FINAL Differential Comment Sodium Level 148 MEQ/L (136-145) Potassium Level 4.1 MEQ/L (3.5-5.1) Chloride Level 111 MEQ/L (98-107) Carbon Dioxide Level 30.0 MEQ/L (21.0-32.0) Anion Gap 7 MEQ/L (5-15) Blood Urea Nitrogen 23 MG/DL (7-18) Creatinine 0.67 MG/DL (0.60-1.30) Estimat Glomerular Filtration 123 ML/MIN Rate (>89) Random Glucose 107 MG/DL (74-106) Calcium Level 8.3 MG/DL (8.5-10.1) Phosphorus Level 3.4 MG/DL (2.5-4.9) Magnesium Level 2.4 MG/DL (1.5-2.5) Gentamicin Level Trough 1.1 MCG/ML (0.0-2.0) Vancomycin Level Trough 38.4 MCG/ML 19.3 MCG/ML (5.0-10.0) (5.0-10.0) Urine Opiates Screen NEG (NEG) Urine Barbiturates Screen NEG (NEG) Urine Amphetamines Screen NEG (NEG) Urine Benzodiazepines Screen NEG (NEG) Urine Cocaine Screen NEG (NEG) Urine Cannabinoids Screen POS (NEG) Test 11/21/16 11/22/16 11/22/16 22:12 03:30 10:00 White Blood Count 22.1 TH/MM3 21.0 TH/MM3 (4.0-11.0) (4.0-11.0) Red Blood Count 2.71 MIL/MM3 2.62 MIL/MM3 (4.50-5.90) (4.50-5.90) Hemoglobin 8.2 GM/DL 8.1 GM/DL (13.0-17.0) (13.0-17.0) Hematocrit 26.4 % 25.1 % (39.0-51.0) (39.0-51.0) Mean Corpuscular Volume 97.2 FL 95.5 FL (80.0-100.0) (80.0-100.0) Mean Corpuscular Hemoglobin 30.3 PG 31.0 PG (27.0-34.0) (27.0-34.0) Mean Corpuscular Hemoglobin 31.2 % 32.5 % Concent (32.0-36.0) (32.0-36.0) Red Cell Distribution Width 15.4 % 15.1 % (11.6-17.2) (11.6-17.2) Platelet Count 285 TH/MM3 285 TH/MM3 (150-450) (150-450) Mean Platelet Volume 7.5 FL 7.5 FL (7.0-11.0) (7.0-11.0) Neutrophils (%) (Auto) 91.3 % (16.0-70.0) Lymphocytes (%) (Auto) 3.5 % (9.0-44.0) Monocytes (%) (Auto) 5.0 % (0.0-8.0) Eosinophils (%) (Auto) 0.1 % (0.0-4.0) Basophils (%) (Auto) 0.1 % (0.0-2.0) Neutrophils # (Auto) 19.1 TH/MM3 (1.8-7.7) Lymphocytes # (Auto) 0.7 TH/MM3 (1.0-4.8) Monocytes # (Auto) 1.0 TH/MM3 (0-0.9) Eosinophils # (Auto) 0.0 TH/MM3 (0-0.4) Basophils # (Auto) 0.0 TH/MM3 (0-0.2) CBC Comment DIFF FINAL Differential Comment Creatinine 0.65 MG/DL (0.60-1.30) Estimat Glomerular Filtration 128 ML/MIN Rate (>89) Magnesium Level 2.6 MG/DL (1.5-2.5) Gentamicin Level Trough 0.9 MCG/ML (0.0-2.0) Result Diagram: 11/22/16 0330 11/22/16 0330 Microbiology Microbiology Date/Time Procedure Status Source Growth 11/19/16 21:47 Aerobic Blood Culture - Preliminary Resulted Blood Peripheral NO GROWTH IN 3 DAYS 11/19/16 21:47 Anaerobic Blood Culture - Preliminary Resulted Blood Peripheral NO GROWTH IN 3 DAYS 11/19/16 21:50 Aerobic Blood Culture - Preliminary Resulted Blood Peripheral NO GROWTH IN 3 DAYS 11/19/16 21:50 Anaerobic Blood Culture - Preliminary Resulted Blood Peripheral NO GROWTH IN 3 DAYS Imaging Last Impressions Chest X-Ray 11/22/16 0600 Signed Impressions: Service Date/Time: Tuesday, November 22, 2016 04:25 - CONCLUSION: 1. Cavitary lesion in the right mid lung appears somewhat smaller when compared to prior. Multiple nodular densities previously seen in the left lung are less conspicuous on the current exam. 2. Stable position of life support tubes including a right sided thoracostomy tube. There may be a developing loculated pneumothorax inferolaterally on the right with marked improvement in the previously seen right-sided effusion. 3. Left basilar consolidation/effusion David Rojas MD Brain MRI 11/21/16 0000 Signed Impressions: Service Date/Time: November 12:33 - CONCLUSION: Multifocal areas of restricted diffusion primarily in the periventricular and subcortical white matter bilaterally but also cortically based in the right frontal lobe. Findings likely represent ischemic change likely related to septic emboli given the patient's clinical history. No abscess or enhancing lesion is visualized. Agustin Bonner MD Head CT 11/17/16599 Signed Impressions: Service Date/Time: Thursday, November 17, 2016 10:39 - CONCLUSION: No significant change has occurred. Deven Urrutia MD Chest CT 11/16/16 0000 Signed Impressions: Service Date/Time: Wednesday, November 16, 2016 20:36 - CONCLUSION: 1. New right chest tube in the posterior superior right pleural space. There continues to be a moderate right pleural effusion primarily seen at the base. Some degree of loculation may be present inferiorly. The effusion does not layer posteriorly. There are scattered punctate areas of air within the pleural space inferiorly on the right. There is a solitary small area of air within the mild left pleural effusion. 2. Numerous irregular masses seen throughout both lungs some which are cavitary. These are nonspecific. Inflammatory masses needs be suspected. The multiplicity raises possibility of septic emboli. Agustin Price MD Abdomen X-Ray 11/15/16599 Signed Impressions: Service Date/Time: Tuesday, November 15, 2016 03:07 - CONCLUSION: Probable mild ileus involving loops of bowel on the left side. Reba Banerjee MD Abdomen/Pelvis CT 11/14/16 0000 Signed Impressions: Service Date/Time: October 09:55 - CONCLUSION: 1. Multiple loops of fluid-filled small bowel which are larger in caliber in comparison to yesterday's examination although not enlarged by size criteria. This may reflect mild enteritis versus developing mild adynamic ileus. 2. Persistent luminal narrowing at the gastroduodenal junction without definite focal mass. This is of uncertain clinical significance and likely reflects gastric contraction. Gastric mass/metastatic disease is not very likely based on appearance although it cannot be excluded. 3. 2 cm ill-defined hypodense lesion in the left renal mid pole with indeterminate density. Differential considerations include complex cyst versus metastatic disease in this patient with apparent diffuse metastatic disease in the chest. 4. Redemonstration of multiple bilateral cavitary masses at the lung bases with loculated right pleural effusion. Elder Long MD CT Angiography 11/13/16 1328 Signed Impressions: Service Date/Time: Friday, November 13, 2016 15:50 - CONCLUSION: 1. Multiple cavitary lesions within both lungs with the largest measuring 9.5 cm in the right upper lobe. Differential diagnosis includes infectious and neoplastic etiologies. 2. Moderate sized right pleural effusion with adjacent compressive atelectasis and/or infiltrate. 3. Cardiomegaly and coronary artery calcifications. 4. Subcarinal mediastinal lymphadenopathy. 5. Degenerative changes throughout the thoracic spine. Jed Ponce MD Procedures Thoracentesis and right (pigtail) thoracostomy 11/14/16 INTUBATION 11/16/16 Bronchoscopy 11/16/16 . 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 Never . One estranged son in [employer]. Spiritual: The patient is not and has not ever been spiritual or druze person according to the family, but the family does want the throw out clerk to continue to come and visit. Legal: The patient lacks capacity for decision-making, and it it is uncertain whether he will regain that capacity. Initially, he had named his landlord Kerrie Correa as healthcare surrogate, but she makes it very clear by telephone [phone] on 11/18/16 that "since there is family around, I do not want to be the decision-maker for him in any way." I spoke with the patient's 21-year-old son Alexei Mohan [phone] in [employer] by telephone, and he reports that he also does not want to be involved in the decision making; "he has not had any impact or played any role in my life, so that would not be appropriate for me to make decisions for him." Thus, the patient's mother Nellie Ying is his healthcare proxy decision-maker. Ethical issues impacting care: None . Important Contacts Mother: Nellie Ying <----> PROXY DECISION-MAKER -- [phone] Son: (estranged for many years) Adarsh Mohan [phone] . Prognosis The patient has multisystem organ failure and septic shock with a large vegetation on his aortic valve, and his overall prognosis is quite guarded. . Code Status: Full Code Plan * FULL CODE * DECISION-MAKING: The patient lacks capacity for decision-making, and it is uncertain whether he will regain that capacity. The patient's mother Nellie Ying is his healthcare proxy decision-maker. * GOALS: The patient's family has been hoping that perhaps he will be able to get a new valve or that the current infection will somehow resolve with medical treatment. With his now documented multiple cerebral emboli and encephalopathy , the family members' goals for valve replacement and return to functional status remain quite challenging. * SYMPTOMS: Any pain or dyspnea is being managed by appropriate sedation and the ventilator, and I have no additional medication recommendations at this time. * Palliative Care will continue to follow the patient during this hospitalization. . Time Spent Total Floor Time (mins): 36 Face to Face Time (mins): 11 >50% Counseling/Coord of Care: Yes (d/w Dr. Luque and with RN) Attestation To help prompt me to consider important information that might be impacting today's encounter and assessment, information from prior notes written by myself or my colleagues may have been "brought forward" into today's note. My signature on this note, however, is an attestation that I personally performed the exam, history, and/or decision-making noted today, and, unless otherwise indicated, the interactions with patient, family, and staff as well as the review of records all occurred today. I also attest that the listed assessment and stated plan reflect my best clinical judgment today based on the combination of historical information, prior notes, and today's exam/ interactions. When time spent is documented, it refers only to time spent today by the signer, or if indicated, combined time spent today by collaborating physician/nurse practitioner. Radha Carpenter MD Nov 22, 2016 17:28
--- NOTE | 2016-11-22 17:46 | HHI.PR ---
Subjective Remarks Patient was intubated last night for acute hypoxemic resp failure and a right chest tube was placed for right hydroPTX in addition patient underwent bronch with BAL ( mucous plugs b/l suctioned to clear). MRI brain multifocal area of septic emboli/infarct On Precedex, awake, moves extremities Objective Vital Signs Vital Signs Date Time Temp Pulse Resp B/P Pulse Ox O2 Delivery O2 Flow Rate FiO2 11/22/16 16:03 92 45 11/22/16 16:00 45 11/22/16 16:00 98.8 86 21 111/53 93 105/42 11/22/16 16:00 86 11/22/16 14:38 92 80 11/22/16 14:00 115 11/22/16 14:00 45 11/22/16 12:00 127 11/22/16 12:00 40 11/22/16 12:00 100.0 127 41 146/76 93 151/62 11/22/16 11:35 94 40 11/22/16 10:00 100 11/22/16 10:00 40 11/22/16 08:00 91 11/22/16 08:00 45 11/22/16 08:00 98.4 91 16 130/61 95 119/48 11/22/16 07:46 95 45 11/22/16 06:00 100 11/22/16 04:14 95 50 11/22/16 04:00 93 11/22/16 04:00 98.5 93 16 131/59 96 114/43 11/22/16 04:00 50 11/22/16 02:00 91 11/22/16 01:47 95 60 11/22/16 00:00 99.0 92 16 128/58 95 112/42 11/22/16 00:00 92 11/22/16 00:00 40 11/21/16 22:00 100 11/21/16 20:27 96 60 11/21/16 20:00 90 11/21/16 20:00 99.6 92 16 131/59 96 116/45 11/21/16 20:00 40 11/21/16 18:00 90 I/O 11/21/16 11/21/16 11/21/16 11/22/16 11/22/16 11/22/16 07:00 15:00 23:00 07:00 15:00 23:00 Intake Total 1080 ml 901 ml 2714 ml 1292 ml Output Total 480 ml 555 ml 1010 ml 1510 ml Balance 600 ml 346 ml 1704 ml -218 ml IV Total 655 ml 382 ml 1763 ml 763 ml Tube Feeding 425 ml 319 ml 951 ml 529 ml Other 200 ml Output Urine Total 400 ml 425 ml 950 ml 650 ml Stool Total 700 ml Chest Tube Drainage Total 80 ml 130 ml 60 ml 160 ml # Bowel Movements 1 1 3 Result Diagram: 11/22/16 03311/22/16 033 Objective Remarks GENERAL: Patient is 56 yo critically ill intubated , sedated and on pressors. SKIN: Warm and dry. HEAD: Normocephalic. EYES: No scleral icterus. No injection or drainage. NECK: Supple, trachea midline. No JVD or lymphadenopathy. CARDIOVASCULAR: Regular rate and rhythm without murmurs, gallops, or rubs. RESPIRATORY: Breath sounds equal bilaterally. No accessory muscle use. GASTROINTESTINAL: Abdomen soft, non-tender, nondistended. MUSCULOSKELETAL: No cyanosis, or edema. Neuro: Sedated and intubated A/P Assessment and Plan 1VDRF 2)Septic shock 3)Staph Aureus bacteremia 4)Empyema 6)Endocarditis involving AV 7)Leucocytosis 8)Cavitary pulm masses 2nd staph Aureus 9)Right hydroPTX PLAN: Continue with vent support keep sat >92% Bronchodilators, ICU vent bundle, on stress dose steroids- HC 100mg IV Q8 On PRVC/AC 20/520/1.10/10, 40% Abx per ID ( On Ancef, Zosyn, Gent)monitor for signs of infections ( Fever, WBC ) Follow up on BAL results/cx CTS is following- no intervention at this time. Chest tube to suction On Precedex palliative care following Emmett Bolton MD Nov 22, 2016 17:45
[2016-11-22 18:19] LABS: BICARBONATE 34.6 MEQ/L (21.0-32.0); MAGNESIUM 2.6 MG/DL (1.5-2.5)
--- NOTE | 2016-11-22 18:20 | ECHRPT ---
Indication: EVAL AORTIC VALVE VEGETATION CONCLUSIONS LV function grossly normal, wall motion not evaluated. There is an aortic valve vegetation that is present, noted on the right coronary cusp. Probably moderate aortic regurgitation, although difficult to determine on this echo. BP: 136 / 62 HR: 86 Rhythm: Sinus MEASUREMENTS (Male / Female) Normal Values Technical Quality:Fair 2D ECHO LVOT Diameter 2.6 cm Aortic Root Diameter 3.8 cm M-MODE AV Cusp Separation MM 2.7 cm DOPPLER AV Peak Velocity 192.0 cm/s AV Peak Gradient 14.7 mmHg AV Mean Gradient 7.0 mmHg AV Velocity Time Integral 33.2 cm AI Peak Velocity 353.0 cm/s AI Peak Gradient 49.8 mmHg AI Pressure Half Time 89.0 ms LVOT Peak Velocity 101.0 cm/s LVOT Peak Gradient 4.1 mmHg LVOT Velocity Time Integral 19.6 cm LVOT Cardiac Index 3803.7 cm/minm AV Area Cont Eq vti 3.1 cm AV Area Cont Eq pk 2.8 cm FINDINGS LEFT VENTRICLE LV function grossly normal, wall motion not evaluated AORTIC VALVE Trileaflet aortic valve. There is an aortic valve vegetation that is present, noted on the right coronary cusp. Probably moderate aortic regurgitation, although difficult to determine on this echo Dominik Avendano DO (Electronically Signed) Final Date:22 November 2016 18:18
--- NOTE | 2016-11-22 20:37 | MB ---
cc: KALEB ROLLE DATE OF CONSULTATION 11/22/16 REASON FOR CONSULTATION Encephalopathy. HISTORY OF PRESENT ILLNESS Mr. Mohan is a 56-year-old man who was admitted to the ER due to confusion and generalized weakness for about two weeks felt related to sepsis. She also was hypernatremic with a sodium of 126, O2 saturation was 88% room air. He has been treated with antibiotics and Solu-Medrol, has been on the ventilator. He also had a right pleural effusion. Thoracentesis was performed and he had a chest tube placed. He has found to have cavitary pulmonary lesions as well. The patient has been minimally responsive and he had an MRI of the brain performed which revealed multiple areas of restricted diffusion consistent with Strokes, possible septic emboli. He had a transesophageal echocardiogram performed showing a large vegetation 17 x 17 mm in the aortic valve. MEDICATIONS Current are 1. Gentamicin. 2. Hydrocortisone 3. Subcu Heparin 5000 units b.i.d., 4. Lactulose. 5. Thiamine. 6. Folic acid. NEUROLOGIC EXAMINATION Blood pressure is 111/53, pulse 86, respirations 21, temperature is 98.8 degrees. Higher cortical function - The patient is alert appearing. He does not follow any complex commands. Occasionally, he follows simple commands such as closing his eyes, but this is very intermittent. The pupils are 2 mm, symmetrical and reactive. Extraocular movements are intact. Motor exam - he has no focal deficits. Reflexes are symmetric. IMPRESSION Probable multiple septic emboli from endocarditis. RECOMMENDATIONS Continue antibiotic coverage. We will obtain an electroencephalogram. MD MIRELLA Ng/ /8:21 PM /8:36 PM
[2016-11-22] MEDS: VASOPRESSIN INJ 40 UNITS in DEXTROSE 5% IN WATER 100ML INJ 98 ML IV SCH ×2 (21:16)
[2016-11-22] MEDS: DEXMEDETOMIDINE INJ 1,000 MCG in SODIUM CHLOR 0.9% 250 ML INJ 240 ML IV SCH (23:24)
[2016-11-23] VITALS (49 sets, daily range): BP systolic 100–152; BP diastolic 46–74; PULSE 81–112; RESP 0–38; TEMP 98.4–101.3; O2SAT 75–100
[2016-11-23] MEDS: GENTAMICIN/SOD CHL 80 MG/100 ML IV SCH ×2 (00:01→11:57)
[2016-11-23] MEDS: ceFAZolin 2 GM PREMIX 50 ML IV SCH ×3 (01:20→17:27)
[2016-11-23] MEDS: CHLORHEXIDINE GLUCONATE 2 % 1 PACK (2 CLOTHS) TOP SCH (04:00)
[2016-11-23 04:32] LABS: AUTOMATED NEUTROPHIL # 14.7 TH/MM3 (1.8-7.7); EOSINOPHIL % 0.1 % (0.0-4.0); HEMATOCRIT 24.3 % (39.0-51.0); HEMO FLAGS DIFF FINAL; LYMPH % 7.6 % (9.0-44.0); LYMPHOCYTE # 1.3 TH/MM3 (1.0-4.8); MEAN CELL VOLUME 95.1 FL (80.0-100.0); MEAN CORPUSCULAR HEMOGLOBIN 30.7 PG (27.0-34.0); MEAN CORPUSCULAR HGB CONC 32.3 % (32.0-36.0); NEUT % 86.3 % (16.0-70.0); PLATELET COUNT 297 TH/MM3 (150-450); RED BLOOD COUNT 2.55 MIL/MM3 (4.50-5.90)
[2016-11-23 04:47] LABS: BICARBONATE 35.4 MEQ/L (21.0-32.0); POTASSIUM 3.8 MEQ/L (3.5-5.1)
[2016-11-23] MEDS: INSULIN ASPART SUPPLEMENTAL SCALE SQ SCH ×4 (05:00→23:00)
--- NOTE | 2016-11-23 05:21 | RADRPT ---
EXAM DATE/TIME: 11/23/2016 03:50 [facility] COMPARISON: CHEST SINGLE AP, November 22, 2016, 4:25. INDICATIONS : Shortness of breath, possible pulmonary disease. MEDICAL HISTORY : Sepsis. Cavitary mass SURGICAL HISTORY : Thoracentesis ENCOUNTER: Subsequent ACUITY: 1 week PAIN SCORE: Non-responsive. LOCATION: Bilateral chest FINDINGS: A single view of the chest demonstrates stable 5.7 cm cavitary lesion in the right upper lung. Persis tent haziness over the left chest suggests effusion with scattered nodular densities laterally in the left midlung. Right-sided thoracostomy tube without effusion. Again, there may be a loculated pneumo thorax laterally in the right base. Heart size is prominent. Life support tubes are all stable in pos ition including an endotracheal tube with the tip appropriately positioned above the joseph. CONCLUSION: 1. Stable appearance of the chest of a 5.7 cm cavitary lesion in the right upper lobe, left basilar c onsolidation/effusion and haziness over the left chest possibly representing a posterior layering eff usion. 2. Peripherally positioned nodular densities in the left mid chest. These are all stable. 3. Right-sided thoracostomy tube without effusion. There may be a small loculated pneumothorax latera lly in the right base, however. 4. Cardiomegaly David Rojas MD on November 23, 2016 at 5:16 Board Certified Radiologist. This report was verified electronically.
[2016-11-23] MEDS: ARTIFICIAL TEARS OPTH SOLN 15 ML BTL EACH EYE SCH ×3 (05:55→20:16)
[2016-11-23] MEDS: METOCLOPRAMIDE HCL 10 MG/2 ML VIAL IV SCH ×3 (05:55→20:16)
[2016-11-23] MEDS: THIAMINE HCL 100 MG TAB PO SCH (08:18)
[2016-11-23] MEDS: FOLIC ACID 1 MG TAB PO SCH (08:18)
[2016-11-23] MEDS: POLYETHYLENE GLYCOL 17 GM PKG PO SCH ×2 (08:18→20:13)
[2016-11-23] MEDS: MULTIVITAMIN TAB PO SCH (08:18)
[2016-11-23] MEDS: CHLORHEXIDINE 0.12% (ORAL KIT) 15 ML CUP MT SCH ×2 (08:18→20:11)
[2016-11-23] MEDS: DOCUSATE SODIUM 50 MG/SENNA 8.6 MG TAB PO SCH ×2 (08:18→20:13)
[2016-11-23] MEDS: DEXMEDETOMIDINE INJ 1,000 MCG in SODIUM CHLOR 0.9% 250 ML INJ 240 ML IV SCH ×3 (08:19→20:29)
[2016-11-23] MEDS: SODIUM CHLORIDE 0.9% FLUSH 10 ML FLUSH IVF SCH (08:19)
[2016-11-23] MEDS: SODIUM CHLORIDE 0.9% FLUSH 10 ML FLUSH IV FLUSH SCH ×2 (08:19→20:12)
[2016-11-23] MEDS: PANTOPRAZOLE SODIUM 40 MG VIAL IV SCH ×2 (08:19→20:11)
[2016-11-23] MEDS: LACTULOSE SYRUP 20 GM/30 ML CUP PO SCH (08:20)
[2016-11-23] MEDS: HEPARIN SODIUM - SQ 10,000 UNITS/ML VIAL SQ SCH ×2 (08:20→20:14)
[2016-11-23] MEDS: HYDROCORTISONE SOD SUCCINATE 100 MG VIAL IV PUSH SCH ×2 (08:20→20:12)
[2016-11-23] MEDS: DEXTROSE 5% IN WATE 1000ML INJ 1,000 ML IV SCH ×2 (10:54→17:28)
--- NOTE | 2016-11-23 15:32 | HHI.CCPN ---
Subjective Remarks/Hospital Course 56-year-old male is brought to the emergency department by EMS for evaluation of generalized weakness, confusion for about 2 weeks, and also increasing shortness of breath. His oxygen saturation was 88% on room air. EMS administered breathing treatments and Solu-Medrol 125 mg 1 and placed him on nasal cannula. Patient states that he had been sick for almost 10 days, but he is a poor historian. He had a productive cough, but reports no hematemesis or weight loss. He states that it was his neighbor who made him called EMS. He has no past medical history and last time had seen a doctor was about 15 years ago. He denies any fevers but reports some night sweats and chills. He was tachycardic with a heart rate of 115 bpm, had severe leukocytosis with a white count of 35,000 with 91% neutrophils. CMP shows hyponatremia with a sodium of 126. Lactic acid is 2.4. His Chest x-ray shows large 7.7 x 7.8 cm cavitary right midlung lesion with associated right-sided pleural effusion. Subcentimeter left mid lung pulmonary nodules. Patient received 1 L normal saline bolus and Zosyn 4.5 g and Zithromax 500 mg IV and was placed on TB/ respiratory isolation. He has been being in skilled nursing 2 years ago increasing his risk of tuberculosis. CT pulmonary angiogram negative for PE but showed multiple cavitary lesions within both lungs with the largest measuring 9.5 cm in the right upper lobe. Moderate size right pleural effusion. I evaluated the patient in the emergency department. Patient appears critically ill in moderate distress mildly tachypneic, sweating. I performed a bedside ultrasound which showed a right effusion which is large. The thoracentesis was performed and 1 L of cloudy dark pleural fluid was removed. Patient will be continued on Zosyn and Levaquin and vancomycin. ID consulted and I discussed with Dr. Steele-she recommended no empiric treatments for TB. 11/14/16: Patient seen and examined complaints of severe epigastric and periumbilical abdominal pain. Patient remains oriented to person. His white count is slightly improved from 35,000-28,9000. Na improved to 136. I have ordered a STAT CT abd/pelvis with IV contrast. Chest x-ray shows reaccumulation of right pleural effusion-fluid chemistries are pending but cell count indicates at least a parapneumonic effusion and patient will need a pigtail chest tube 11/15: Patient pulled his right-sided pigtail catheter out overnight last night. Currently nasal cannula in no acute distress. Afebrile. Continues to have a leukocytosis. 11/16: Currently on room air. Hold out his IVs reportedly overnight last night. Requesting diet. Awake and alert and following commands. Subjective 11/17: Intubated yesterday due to acute hypercapnic respiratory failure. Hypoxic post intubation requiring right chest tube placement, bronchoscopy and Flolan. Bronchoscopy revealed thick mucous plugging at bilateral right and left mainstem which were clear. Improved oxygenation over the past 12 hours. Afebrile. 11/18 Patient remains sedated with Diprivan, Fentanyl and intubated. On Vasopressin and Neosyn 120 mics. 11/19 Patient is sedated with Diprivan, Fentanyl and intubated. Afebrile. Off all pressors. Afebrile. WBC is trending down 30 today from 50. 11/20: Remains severely septic and encephalopathic even though weaned off all pressors. White count still elevated but trending down. Became extremely tachycardic and tachypneic on lowering sedation. We'll check MRI of the brain to rule out embolic infarct. Family at the bedside updated 11/21 Remains heavily sedated, remains encephalopathic. MRI brain is pending. Family is at bedside. Remains critically with resp failure severe from endocarditis, now unable to wean off the ventilator due to severe metabolic encephalopathy 11/22 No events overnight. Sedated with Diprivan, fentanyl and intubated. Afebrile. MRI brain yesterday showed ischemic changes likely related to septic emboli. 11/23: Patient remains encephalopathic, severe hyponatremia possible contributing , Na is 157 today. Currently on Precedex and fentanyl. CXR shows increasing L effusion Objective Vital Signs Date Time Temp Pulse Resp B/P Pulse Ox O2 Delivery O2 Flow Rate FiO2 11/23/16 14:00 106 11/23/16 12:32 94 45 11/23/16 12:00 99.6 25 117/58 133/56 Intake and Output 11/22/16 11/22/16 11/23/16 08:00 16:00 00:00 Intake Total 2714 ml 1292 ml 701 ml Output Total 1010 ml 1510 ml 500 ml Balance 1704 ml -218 ml 201 ml Result Diagram: 11/23/16 0400 11/23/16 1200 Imaging Last Impressions Chest X-Ray 11/22/16 06 Signed Impressions: Service Date/Time: Tuesday, November 22, 2016 04:25 - CONCLUSION: 1. Cavitary lesion in the right mid lung appears somewhat smaller when compared to prior. Multiple nodular densities previously seen in the left lung are less conspicuous on the current exam. 2. Stable position of life support tubes including a right sided thoracostomy tube. There may be a developing loculated pneumothorax inferolaterally on the right with marked improvement in the previously seen right-sided effusion. 3. Left basilar consolidation/effusion David Rojas MD Brain MRI 11/21/16 0000 Signed Impressions: Service Date/Time: November 12:33 - CONCLUSION: Multifocal areas of restricted diffusion primarily in the periventricular and subcortical white matter bilaterally but also cortically based in the right frontal lobe. Findings likely represent ischemic change likely related to septic emboli given the patient's clinical history. No abscess or enhancing lesion is visualized. Agustin Bonner MD Head CT 11/17/16 0600 Signed Impressions: Service Date/Time: Thursday, November 17, 2016 10:39 - CONCLUSION: No significant change has occurred. Deven Urrutia MD Chest CT 11/16/16 0000 Signed Impressions: Service Date/Time: Wednesday, November 16, 2016 20:36 - CONCLUSION: 1. New right chest tube in the posterior superior right pleural space. There continues to be a moderate right pleural effusion primarily seen at the base. Some degree of loculation may be present inferiorly. The effusion does not layer posteriorly. There are scattered punctate areas of air within the pleural space inferiorly on the right. There is a solitary small area of air within the mild left pleural effusion. 2. Numerous irregular masses seen throughout both lungs some which are cavitary. These are nonspecific. Inflammatory masses needs be suspected. The multiplicity raises possibility of septic emboli. Agustin Price MD Abdomen X-Ray 11/15/16 0600 Signed Impressions: Service Date/Time: Tuesday, November 15, 2016 03:07 - CONCLUSION: Probable mild ileus involving loops of bowel on the left side. Reba Banerjee MD Abdomen/Pelvis CT 11/14/16 0000 Signed Impressions: Service Date/Time: October 09:55 - CONCLUSION: 1. Multiple loops of fluid-filled small bowel which are larger in caliber in comparison to yesterday's examination although not enlarged by size criteria. This may reflect mild enteritis versus developing mild adynamic ileus. 2. Persistent luminal narrowing at the gastroduodenal junction without definite focal mass. This is of uncertain clinical significance and likely reflects gastric contraction. Gastric mass/metastatic disease is not very likely based on appearance although it cannot be excluded. 3. 2 cm ill-defined hypodense lesion in the left renal mid pole with indeterminate density. Differential considerations include complex cyst versus metastatic disease in this patient with apparent diffuse metastatic disease in the chest. 4. Redemonstration of multiple bilateral cavitary masses at the lung bases with loculated right pleural effusion. Elder Long MD CT Angiography 11/13/16 1328 Signed Impressions: Service Date/Time: Sunday, November 13, 2016 15:50 - CONCLUSION: 1. Multiple cavitary lesions within both lungs with the largest measuring 9.5 cm in the right upper lobe. Differential diagnosis includes infectious and neoplastic etiologies. 2. Moderate sized right pleural effusion with adjacent compressive atelectasis and/or infiltrate. 3. Cardiomegaly and coronary artery calcifications. 4. Subcarinal mediastinal lymphadenopathy. 5. Degenerative changes throughout the thoracic spine. Jed Ponce MD Objective Remarks GENERAL: 86-year-old male, critically ill currently orotracheally intubated SKIN: Warm and dry. Scattered skin lesions erythematous predominantly left lower extremity HEAD: Normocephalic and atraumatic. EYES: No injection, drainage. Pupils equally round and reactive around 3 mm bilaterally 2 mm. ENT: No nasal drainage noted. Oropharynx is clear. NECK: Supple. No JVD or thyromegaly or lymphadenopathy. Left IJ is clean dry and intact CARDIOVASCULAR: Tachycardic, RR. S1, S2. No S4. Aortic regurgitation murmur not appreciated. RESPIRATORY: Diminished breath sounds bilaterally. Mild expiratory wheezing and few crackles. Right chest tube is clean dry and intact, 200 ml output in 24 hours GASTROINTESTINAL: Abdomen is soft, no rebound or guarding on examination. Hypoactive bowel sounds are appreciated MUSCULOSKELETAL: Mild swelling of bilateral ankles. Multiple erythematous raised lesions on bilateral lower extremity predominantly left lower leg NEUROLOGICAL: Precedex and fentanyl ventilator synchrony. Moving all 4 extremity spontaneously and does follow commands Date of Insertion: Nov 16, 2016 Line: Central Venous Catheter Side: Left Location: Internal, Jugular A/P Assessment and Plan NEURO/PSYCH: Metabolic encephalopathy Septic brain emboli On Precedex and Fentanyl infusion for sedation/analgesia while intubated Goal of RA SS -2. Daily sedation vacation. MRI brain 11/21: Ischemic changes likely related to septic emboli. Neuro consulted Dr. Hernandez CT head 11/17 revealed no acute intracranial findings currently no signs of gross embolic events. On Thiamine/MVI/Folic acid RESP: Bilateral cavitary lung lesions/most likely cavitating pneumonia from staph aureus Acute respiratory failure Large right loculated pleural effusion/empyema Left pleural effusion PRVC 16/600/1.05/23/49. Continue with vent support keep sat >90%.Decrease FIO2 40 % as tiki. Duo nebs every 4 hours with albuterol nebs every 2 hours. Vent bundle. Off Flolan. Daily SBT Right-sided chest tube #28 Lao- monitor CT drainage( Drained 200 ml in 24 hours) - Right thoracentesis with 1 L cloudy yellow fluid removed, fluid cell studies WBC 2,600, - Patient status post pigtail catheter placement 11/14, 445 cc prior pulled out 11/15. Evaluated by Dr. Samuels/CT surgery. Per his recommendations, No indication for decortication at this time Bedside US to evaluate L effusion today CV: Aortic valve endocarditis/large vegetation Sinus tachycardia Atrial fibrillation with RVR early normal sinus rhythm Elevated troponin - likely rate dependent Monitor HR and BP keep MAP>65mmHg - Stress dose steroids-Hydrocortisone 50mg IV Q12 - 2-D echocardiogram revealed EF 55-60%. Moderate AR. CHANDNI revealed 17 mm x 17 millimeter mobile mass on aortic valve. limited echo 11/22 Persistent vegetation - CT surgery. Recommendations no intervention at this time GI: Hypoalbuminemia Continue tube feeds with Glucerna 1.5 goal 55 cc an hour. IV Protonix for GI prophylaxis Chinyere-Colace and MiraLAX for bowel regimen Reglan for bowel motility - CT of the abdomen pelvis with IV contrast revealed possible ileus., Gastric contraction at gastric duodenal junction. 2 mm renal cyst. - KUB 11/15 revealed improving mild ileus. GI is following. : Monitor renal function, I/O's, electrolytes replacement per protocol. BMP ID: Severe sepsis Multilobar cavitating pneumonia secondary staph aureus Staph aureus empyema - Continue with abx per ID ( IV Vanco, Ancef, Gent) monitor for signs of infections ( Fever, WBC) WBC is trending down Pertinent cultures 11/13 - blood cultures 2 - staph aureus 11/13 and 11/14- pleural fluid- staph aureus 11/14- sputum- staph aureus 11/15 - blood cultures 2 - pending 11/16 - Bronch samples: Staph Aureus 11/16 Sputum: Staph Aureus HEME: Leukocytosis Normocytic anemia - Monitor CBC, CMP, coags ENDO: SSI with accuchecks for glycemic control TSH 0.6. PROPH: - Bilateral lower extremity SCDs. Heparin SQ, IV Protonix for prophylaxis LINES: - Left IJ CVL, Right Femoral Art line placed 11/16-DC Art line Palliative care is following Care time 32 minutes excluding procedures. Jan Velez MD Nov 23, 2016 15:32
--- NOTE | 2016-11-23 15:33 | HHI.IDPN ---
Note Infectious Disease Note Patient intubated. On the vent. CPAP in progress. Sedated. follows commands. Becomes agitated and tachycardic when sedation is lifted. Afebrile. D/W RN. Large vegetation on AV and moderate aortic regurg on CHANDNI. Culture of blood 11/13, 11/15, 11/16. - Staph aureus. 11/19 no growth. Culture of pleural fluid 11/14 - staph aureus. Presented to the emergency department with a 2-week history of weakness. He was noted to have low oxygen saturation. He reported that he had productive cough over the past couple of weeks and was experiencing shortness of breath. ALLERGIES NO KNOWN DRUG ALLERGIES. OBJECTIVE: Vital Signs Date Time Temp Pulse Resp B/P Pulse Ox O2 Delivery O2 Flow Rate FiO2 11/23/16 15:25 98 40 11/23/16 14:00 106 11/23/16 12:32 94 45 11/23/16 12:00 45 11/23/16 12:00 98 11/23/16 12:00 99.6 98 25 117/58 100 133/56 11/23/16 11:30 87 19 116/54 99 119/51 11/23/16 11:00 112 29 125/59 97 146/60 11/23/16 10:30 91 21 118/56 95 120/51 11/23/16 10:00 102 11/23/16 10:00 102 23 132/61 95 138/58 11/23/16 09:00 102 22 128/60 75 135/57 11/23/16 08:32 95 45 11/23/16 08:30 96 24 128/60 100 135/57 11/23/16 08:00 45 11/23/16 08:00 87 11/23/16 08:00 98.4 87 19 111/56 96 116/50 11/23/16 07:30 83 17 113/53 97 118/51 11/23/16 07:00 84 19 112/53 96 121/53 11/23/16 06:31 101 24 125/56 98 134/56 11/23/16 06:00 84 11/23/16 06:00 84 17 110/56 96 111/49 11/23/16 05:30 87 18 113/53 97 118/51 11/23/16 05:00 97 22 119/58 96 128/55 11/23/16 04:00 98.7 92 20 119/56 100 117/47 11/23/16 04:00 92 11/23/16 04:00 45 11/23/16 03:48 100 45 11/23/16 02:00 90 11/23/16 01:08 98 45 11/23/16 00:00 104 11/23/16 00:00 45 11/23/16 00:00 98.9 104 23 119/57 98 127/50 11/22/16 22:00 113 11/22/16 21:44 100 45 11/22/16 20:00 95 11/22/16 20:00 99.0 95 18 115/56 94 109/43 11/22/16 20:00 45 11/22/16 18:00 105 11/22/16 18:00 105 21 130/62 78 135/54 11/22/16 17:30 101 21 126/59 95 111/38 11/22/16 17:00 105 23 123/56 93 134/45 11/22/16 16:30 86 20 112/53 96 105/40 11/22/16 16:03 92 45 11/22/16 16:00 45 11/22/16 16:00 98.8 86 21 111/53 93 105/42 11/22/16 16:00 86 11/22/16 15:30 91 22 122/58 92 113/46 11/22/16 11/22/16 11/23/16 15:00 23:00 07:00 Intake Total 1993 ml 961 ml Output Total 2010 ml 540 ml Balance -17 ml 421 ml IV Total 1106 ml 560 ml Tube Feeding 887 ml 401 ml Output Urine Total 1050 ml 450 ml Stool Total 800 ml 50 ml Chest Tube Drainage Total 160 ml 40 ml # Bowel Movements 3 Laboratory Tests Test 11/21/16 11/22/16 11/23/16 22:12 03:30 04:00 White Blood Count 22.1 TH/MM3 21.0 TH/MM3 17.0 TH/MM3 Red Blood Count 2.71 MIL/MM3 2.62 MIL/MM3 2.55 MIL/MM3 Hemoglobin 8.2 GM/DL 8.1 GM/DL 7.9 GM/DL Hematocrit 26.4 % 25.1 % 24.3 % Mean Corpuscular Volume 97.2 FL 95.5 FL 95.1 FL Mean Corpuscular Hemoglobin 30.3 PG 31.0 PG 30.7 PG Mean Corpuscular Hemoglobin 31.2 % 32.5 % 32.3 % Concent Red Cell Distribution Width 15.4 % 15.1 % 15.0 % Platelet Count 285 TH/MM3 285 TH/MM3 297 TH/MM3 Mean Platelet Volume 7.5 FL 7.5 FL 7.8 FL Neutrophils (%) (Auto) 91.3 % 86.3 % Lymphocytes (%) (Auto) 3.5 % 7.6 % Monocytes (%) (Auto) 5.0 % 6.0 % Eosinophils (%) (Auto) 0.1 % 0.1 % Basophils (%) (Auto) 0.1 % 0.0 % Neutrophils # (Auto) 19.1 TH/MM3 14.7 TH/MM3 Lymphocytes # (Auto) 0.7 TH/MM3 1.3 TH/MM3 Monocytes # (Auto) 1.0 TH/MM3 1.0 TH/MM3 Eosinophils # (Auto) 0.0 TH/MM3 0.0 TH/MM3 Basophils # (Auto) 0.0 TH/MM3 0.0 TH/MM3 CBC Comment DIFF FINAL DIFF FINAL Differential Comment Laboratory Tests Test 11/22/16 11/22/16 11/23/16 11/23/16 03:30 17:00 04:00 12:00 Creatinine 0.65 MG/DL 0.72 MG/DL 0.79 MG/DL Estimat Glomerular Filtration 128 ML/MIN 113 ML/MIN 102 ML/MIN Rate Magnesium Level 2.6 MG/DL 2.6 MG/DL Sodium Level 155 MEQ/L 157 MEQ/L 157 MEQ/L Potassium Level 4.0 MEQ/L 3.8 MEQ/L Chloride Level 117 MEQ/L 119 MEQ/L Carbon Dioxide Level 34.6 MEQ/L 35.4 MEQ/L Anion Gap 3 MEQ/L 3 MEQ/L Blood Urea Nitrogen 31 MG/DL 32 MG/DL Random Glucose 106 MG/DL 114 MG/DL Calcium Level 8.4 MG/DL 8.2 MG/DL Phosphorus Level 2.5 MG/DL Microbiology Date/Time Procedure Status Source Growth 11/19/16 21:47 Aerobic Blood Culture - Preliminary Resulted Blood Peripheral NO GROWTH IN 3 DAYS 11/19/16 21:47 Anaerobic Blood Culture - Preliminary Resulted Blood Peripheral NO GROWTH IN 3 DAYS 11/19/16 21:50 Aerobic Blood Culture - Preliminary Resulted Blood Peripheral NO GROWTH IN 3 DAYS 11/19/16 21:50 Anaerobic Blood Culture - Preliminary Resulted Blood Peripheral NO GROWTH IN 3 DAYS Microbiology Date/Time Procedure Status Source Growth 11/19/16 21:47 Aerobic Blood Culture - Preliminary Resulted Blood Peripheral NO GROWTH IN 1 DAY 11/19/16 21:47 Anaerobic Blood Culture - Preliminary Resulted Blood Peripheral NO GROWTH IN 1 DAY 11/19/16 21:50 Aerobic Blood Culture - Preliminary Resulted Blood Peripheral NO GROWTH IN 1 DAY 11/19/16 21:50 Anaerobic Blood Culture - Preliminary Resulted Blood Peripheral NO GROWTH IN 1 DAY Microbiology Date/Time Procedure Status Source Growth 11/16/16 16:40 Gram Stain - Final Complete Sputum Endotracheal 11/16/16 16:40 Sputum Culture - Final Complete Staphylococcus Aureus 11/16/16 22:00 Gram Stain - Final Resulted Bronchial Washings Right Upper Lobe 11/16/16 22:00 Bronchial Culture - Preliminary Resulted Staphylococcus Aureus 11/16/16 22:00 Acid Fast Stain Worksheet Bronchial Washings Right Upper Lobe Pending 11/16/16 22:00 Mycobacterial Culture Worksheet Bronchial Washings Right Upper Lobe Pending 11/16/16 22:00 Fungal Smear - Final Resulted Bronchial Washings Right Upper Lobe NO FUNGAL ELEMENTS SEEN. 11/16/16 22:00 Fungal Culture Resulted Bronchial Washings Right Upper Lobe Pending IMAGING: Chest X-Ray 11/23/16 0600 Signed Impressions: Service Date/Time: Wednesday, November 23, 2016 03:50 - CONCLUSION: 1. Stable appearance of the chest of a 5.7 cm cavitary lesion in the right upper lobe, left basilar consolidation/effusion and haziness over the left chest possibly representing a posterior layering effusion. 2. Peripherally positioned nodular densities in the left mid chest. These are all stable. 3. Right-sided thoracostomy tube without effusion. There may be a small loculated pneumothorax laterally in the right base, however. 4. Cardiomegaly David Rojas MD Brain MRI 11/21/16 0000 Signed Impressions: Service Date/Time: November 12:33 - CONCLUSION: Multifocal areas of restricted diffusion primarily in the periventricular and subcortical white matter bilaterally but also cortically based in the right frontal lobe. Findings likely represent ischemic change likely related to septic emboli given the patient's clinical history. No abscess or enhancing lesion is visualized. Agustin Bonner MD Head CT 11/17/16599 Signed Impressions: Service Date/Time: Thursday, November 17, 2016 10:39 - CONCLUSION: No significant change has occurred. Deven Urrutia MD Chest X-Ray 11/17/16599 Signed Impressions: Service Date/Time: Thursday, November 17, 2016 03:36 - CONCLUSION: Diffuse airspace disease a large cavity in the right midlung zone is unchanged. Tubes and catheter are in good position. Sawyer Robertson MD Chest CT 11/16/16 0000 Signed Impressions: Service Date/Time: Wednesday, November 16, 2016 20:36 - CONCLUSION: 1. New right chest tube in the posterior superior right pleural space. There continues to be a moderate right pleural effusion primarily seen at the base. Some degree of loculation may be present inferiorly. The effusion does not layer posteriorly. There are scattered punctate areas of air within the pleural space inferiorly on the right. There is a solitary small area of air within the mild left pleural effusion. 2. Numerous irregular masses seen throughout both lungs some which are cavitary. These are nonspecific. Inflammatory masses needs be suspected. The multiplicity raises possibility of septic emboli. Agustin Price MD Abdomen X-Ray 11/15/16599 Signed Impressions: Service Date/Time: Tuesday, November 15, 2016 03:07 - CONCLUSION: Probable mild ileus involving loops of bowel on the left side. Reba Banerjee MD Abdomen/Pelvis CT 11/14/16 0000 Signed Impressions: Service Date/Time: October 09:55 - CONCLUSION: 1. Multiple loops of fluid-filled small bowel which are larger in caliber in comparison to yesterday's examination although not enlarged by size criteria. This may reflect mild enteritis versus developing mild adynamic ileus. 2. Persistent luminal narrowing at the gastroduodenal junction without definite focal mass. This is of uncertain clinical significance and likely reflects gastric contraction. Gastric mass/metastatic disease is not very likely based on appearance although it cannot be excluded. 3. 2 cm ill-defined hypodense lesion in the left renal mid pole with indeterminate density. Differential considerations include complex cyst versus metastatic disease in this patient with apparent diffuse metastatic disease in the chest. 4. Redemonstration of multiple bilateral cavitary masses at the lung bases with loculated right pleural effusion. Elder Long MD CT Angiography 11/13/16 1328 Signed Impressions: Service Date/Time: Sunday, November 13, 2016 15:50 - CONCLUSION: 1. Multiple cavitary lesions within both lungs with the largest measuring 9.5 cm in the right upper lobe. Differential diagnosis includes infectious and neoplastic etiologies. 2. Moderate sized right pleural effusion with adjacent compressive atelectasis and/or infiltrate. 3. Cardiomegaly and coronary artery calcifications. 4. Subcarinal mediastinal lymphadenopathy. 5. Degenerative changes throughout the thoracic spine. Jed Ponce MD PHYSICAL EXAMINATION GENERAL: On the vent. HEENT: No icterus. Oropharynx moist mucosa without lesions. NECK: Supple without adenopathy. LUNGS: Coarse bilateral rhonchi. HEART: Normal S1-S2 without audible murmurs, rubs or gallops. ABDOMEN: Bowel sounds present, soft. Distended. EXTREMITIES: No clubbing or cyanosis or edema. SKIN: Punctate erythematous lesions at the lower extremities including the left tibia, left foot and right foot which blanches with palpation. NEURO: Sedated. PSYCH: unable to assess. IMPRESSION 1. Sepsis. Endocarditis Aortic valve Staph aureus (MSSA). 2. Cavitary pulmonary lesions. Embolic./ DAIRY HUSBANDMAN ischemic lesions suggesting embolic lesions. 3. Pneumonia/parapneumonic effusion- MSSA. 4. Skin lesions which potentially could be embolic. 5. Leukocytosis secondary to infection. WBC lower. 6. Fever secondary to infection. Temp lower. RECOMMENDATIONS 1. Continue IV Ancef. 2. Continue Gentamycin. 3. Monitor repeat blood culture. 4. Monitor white blood cell count. Decreasing. 5. Monitor temp. . Slava Garcia MD Nov 23, 2016 15:33
[2016-11-23] MEDS ORDERED: ROCURONIUM INJ 50 MG/5 ML VIAL ONE (15:55)
[2016-11-23] MEDS ORDERED: MIDAZOLAM HCL 5 MG/ML VIAL (1 ML) ONE (15:55)
--- NOTE | 2016-11-23 16:45 | PD.PROCEDR ---
Procedure Note Procedure Procedure Ultrasound-guided left pigtail chest tube placement Indication: Large right pleural effusion, in a patient with known right empyema A time-out was completed verifying correct patient, procedure, site, positioning. The patient's right side was prepped and draped in a sterile manner after the appropriate infiltration level was confirmed by ultrasound. 1% lidocaine was used to anesthetize the surrounding skin. A 10-blade scalpel used to make the incision. 18G needle was then introduced without difficulty and into the pleural space and slightly yellow free flowing fluid was removed. Guidewire was placed through the needle and the needle was removed. A 7 Faroese dilator was used, followed by placement of 10 Faroese pigtail catheter over the guidewire using Seldinger technique. Guidewire was removed and pigtail was connected to the PleuroVac, initial output about 1000 ML of clear light yellow pleural fluid. A post-procedure chest x-ray was ordered and the fluid will be sent for several studies. Estimated Blood Loss: <1 ml. The patient tolerated the procedure well and there were no immediate complications. Jan Velez MD Nov 23, 2016 16:45
[2016-11-23] MEDS ORDERED: MIDAZOLAM HCL 5 MG/5 ML VIAL IV ONE (17:15)
[2016-11-23] MEDS ORDERED: ROCURONIUM INJ 50 MG/5 ML VIAL IV ONE (17:15)
[2016-11-23] MEDS: fentaNYL DRIP 250 ML IV SCH (17:27)
--- NOTE | 2016-11-23 17:31 | RADRPT ---
EXAM DATE/TIME: 11/23/2016 16:59 [facility] COMPARISON: CHEST SINGLE AP, November 23, 2016, 3:50. INDICATIONS : Left sided chest tube placement. MEDICAL HISTORY : Sepsis. Cavitary mass. SURGICAL HISTORY : Thoracentesis. ENCOUNTER: Initial ACUITY: 1 day PAIN SCORE: Non-responsive. LOCATION: Bilateral chest FINDINGS: A single view of the chest demonstrates scattered parenchymal opacities greater throughout the right mid lung. Right-sided chest tube without pneumothorax. Cavitary lesion right upper lobe again seen. T here is volume loss on the right. Endotracheal tube is seen at the thoracic inlet and should be advan mi. Nasogastric tube with tip in stomach. Osseous structures are intact. CONCLUSION: 1. Bilateral pulmonary opacities greater in the right midlung. 2. Right-sided chest tube without pneumothorax. 3. There is volume loss on the right. 4. Endotracheal tube with tip at the thoracic inlet and should be advanced 4-5 cm. Jhoan Bishop MD on November 23, 2016 at 17:28 Board Certified Radiologist. This report was verified electronically.
[2016-11-23 19:11] LABS: PLEURAL FLUID LYMPHS 47 %
[2016-11-23] MEDS: VASOPRESSIN INJ 40 UNITS in DEXTROSE 5% IN WATER 100ML INJ 98 ML IV SCH ×2 (20:55)
[2016-11-24] VITALS (23 sets, daily range): BP systolic 109–147; BP diastolic 49–64; PULSE 79–109; RESP 20–27; TEMP 99.2–101.4; O2SAT 92–100
[2016-11-24] MEDS: GENTAMICIN/SOD CHL 80 MG/100 ML IV SCH ×3 (00:50→23:24)
[2016-11-24] MEDS: DEXTROSE 5% IN WATE 1000ML INJ 1,000 ML IV SCH ×5 (00:51→20:19)
[2016-11-24] MEDS: ceFAZolin 2 GM PREMIX 50 ML IV SCH ×3 (00:51→17:26)
[2016-11-24] MEDS: CHLORHEXIDINE GLUCONATE 2 % 1 PACK (2 CLOTHS) TOP SCH (04:00)
[2016-11-24] MEDS: INSULIN ASPART SUPPLEMENTAL SCALE SQ SCH ×4 (05:00→23:00)
[2016-11-24] MEDS: METOCLOPRAMIDE HCL 10 MG/2 ML VIAL IV SCH ×3 (05:36→20:21)
[2016-11-24] MEDS: DEXMEDETOMIDINE INJ 1,000 MCG in SODIUM CHLOR 0.9% 250 ML INJ 240 ML IV SCH (05:37)
[2016-11-24] MEDS: ARTIFICIAL TEARS OPTH SOLN 15 ML BTL EACH EYE SCH ×3 (05:38→20:20)
[2016-11-24] MEDS: RESP: ALBUTEROL 2.5 MG/3 ML NEB (PRN) INH ×2 (07:51→20:21)
[2016-11-24] MEDS: PANTOPRAZOLE SODIUM 40 MG VIAL IV SCH ×2 (07:59→20:19)
[2016-11-24] MEDS: MULTIVITAMIN TAB PO SCH (07:59)
[2016-11-24] MEDS: HEPARIN SODIUM - SQ 10,000 UNITS/ML VIAL SQ SCH ×2 (07:59→20:20)
[2016-11-24] MEDS: DOCUSATE SODIUM 50 MG/SENNA 8.6 MG TAB PO SCH ×2 (08:00→20:20)
[2016-11-24] MEDS: LACTULOSE SYRUP 20 GM/30 ML CUP PO SCH (08:00)
[2016-11-24] MEDS: FOLIC ACID 1 MG TAB PO SCH (08:00)
[2016-11-24] MEDS: THIAMINE HCL 100 MG TAB PO SCH (08:00)
[2016-11-24] MEDS: SODIUM CHLORIDE 0.9% FLUSH 10 ML FLUSH IVF SCH (08:00)
[2016-11-24] MEDS: SODIUM CHLORIDE 0.9% FLUSH 10 ML FLUSH IV FLUSH SCH ×2 (08:01→20:19)
[2016-11-24] MEDS: HYDROCORTISONE SOD SUCCINATE 100 MG VIAL IV PUSH SCH ×2 (08:01→20:19)
[2016-11-24] MEDS: CHLORHEXIDINE 0.12% (ORAL KIT) 15 ML CUP MT SCH ×2 (08:02→20:18)
[2016-11-24] MEDS: POLYETHYLENE GLYCOL 17 GM PKG PO SCH ×2 (08:02→20:19)
[2016-11-24] MEDS: fentaNYL DRIP 250 ML IV SCH (08:06)
--- NOTE | 2016-11-24 11:18 | RADRPT ---
EXAM DATE/TIME: 11/24/2016 10:31 [facility] COMPARISON: CHEST SINGLE AP, November 23, 2016, 16:59. INDICATIONS : Respiratory disease MEDICAL HISTORY : Sepsis. Cavitary mass. SURGICAL HISTORY : Thoracentesis. Left side chest tube ENCOUNTER: Subsequent ACUITY: 2 days PAIN SCORE: Non-responsive. LOCATION: Bilateral chest FINDINGS: A single view of the chest demonstrates there is a 9.1 x 7.5 cm cavitary lesion right lung apex. Righ t-sided chest remains in good position. There is a lucency in the right lateral costophrenic angle ma y be some residual pleural air. The endotracheal tube and nasogastric tube remain in good position . Patchy infiltrate in the left lung base. The cardiomediastinal contours are unremarkable. Osseous structures are intact. Left IJ central line in good position. CONCLUSION: Similar to previous study. The cavitary lesion right lung is stable. Right-sided chest remains in goo d position. Residual air right lower lateral costophrenic angle. Tubes and catheters in good position . Sawyer Robertson MD on November 24, 2016 at 11:14 Board Certified Radiologist. This report was verified electronically.
--- NOTE | 2016-11-24 12:38 | HHI.CCPN ---
Subjective Remarks/Hospital Course 56-year-old male is brought to the emergency department by EMS for evaluation of generalized weakness, confusion for about 2 weeks, and also increasing shortness of breath. His oxygen saturation was 88% on room air. EMS administered breathing treatments and Solu-Medrol 125 mg 1 and placed him on nasal cannula. Patient states that he had been sick for almost 10 days, but he is a poor historian. He had a productive cough, but reports no hematemesis or weight loss. He states that it was his neighbor who made him called EMS. He has no past medical history and last time had seen a doctor was about 15 years ago. He denies any fevers but reports some night sweats and chills. He was tachycardic with a heart rate of 115 bpm, had severe leukocytosis with a white count of 35,000 with 91% neutrophils. CMP shows hyponatremia with a sodium of 126. Lactic acid is 2.4. His Chest x-ray shows large 7.7 x 7.8 cm cavitary right midlung lesion with associated right-sided pleural effusion. Subcentimeter left mid lung pulmonary nodules. Patient received 1 L normal saline bolus and Zosyn 4.5 g and Zithromax 500 mg IV and was placed on TB/ respiratory isolation. He has been being in long-term 2 years ago increasing his risk of tuberculosis. CT pulmonary angiogram negative for PE but showed multiple cavitary lesions within both lungs with the largest measuring 9.5 cm in the right upper lobe. Moderate size right pleural effusion. I evaluated the patient in the emergency department. Patient appears critically ill in moderate distress mildly tachypneic, sweating. I performed a bedside ultrasound which showed a right effusion which is large. The thoracentesis was performed and 1 L of cloudy dark pleural fluid was removed. Patient will be continued on Zosyn and Levaquin and vancomycin. ID consulted and I discussed with Dr. Steele-she recommended no empiric treatments for TB. 11/14/16: Patient seen and examined complaints of severe epigastric and periumbilical abdominal pain. Patient remains oriented to person. His white count is slightly improved from 35,000-28,9000. Na improved to 136. I have ordered a STAT CT abd/pelvis with IV contrast. Chest x-ray shows reaccumulation of right pleural effusion-fluid chemistries are pending but cell count indicates at least a parapneumonic effusion and patient will need a pigtail chest tube 11/15: Patient pulled his right-sided pigtail catheter out overnight last night. Currently nasal cannula in no acute distress. Afebrile. Continues to have a leukocytosis. 11/16: Currently on room air. Hold out his IVs reportedly overnight last night. Requesting diet. Awake and alert and following commands. Subjective 11/17: Intubated yesterday due to acute hypercapnic respiratory failure. Hypoxic post intubation requiring right chest tube placement, bronchoscopy and Flolan. Bronchoscopy revealed thick mucous plugging at bilateral right and left mainstem which were clear. Improved oxygenation over the past 12 hours. Afebrile. 11/18 Patient remains sedated with Diprivan, Fentanyl and intubated. On Vasopressin and Neosyn 120 mics. 11/19 Patient is sedated with Diprivan, Fentanyl and intubated. Afebrile. Off all pressors. Afebrile. WBC is trending down 30 today from 50. 11/20: Remains severely septic and encephalopathic even though weaned off all pressors. White count still elevated but trending down. Became extremely tachycardic and tachypneic on lowering sedation. We'll check MRI of the brain to rule out embolic infarct. Family at the bedside updated 11/21 Remains heavily sedated, remains encephalopathic. MRI brain is pending. Family is at bedside. Remains critically with resp failure severe from endocarditis, now unable to wean off the ventilator due to severe metabolic encephalopathy 11/22 No events overnight. Sedated with Diprivan, fentanyl and intubated. Afebrile. MRI brain yesterday showed ischemic changes likely related to septic emboli. 11/23: Patient remains encephalopathic, severe hyponatremia possible contributing , Na is 157 today. Currently on Precedex and fentanyl. CXR shows increasing L effusion 11/24: Patient more awake today. Follows Commands but did not tolerate spontaneous breathing trials. Had left pigtail chest tube placed yesterday 1.6 L transudative fluid removal since placement Objective Vital Signs Date Time Temp Pulse Resp B/P Pulse Ox O2 Delivery O2 Flow Rate FiO2 11/24/16 11:11 99 40 11/24/16 06:00 80 11/24/16 04:00 101.3 20 109/54 147/53 Intake and Output 11/23/16 11/23/16 11/24/16 08:00 16:00 00:00 Intake Total 961 ml 1423 ml 1415 ml Output Total 540 ml 645 ml 450 ml Balance 421 ml 778 ml 965 ml Result Diagram: 11/23/16 0400 11/23/167 Imaging Last Impressions Chest X-Ray 11/22/16 0600 Signed Impressions: Service Date/Time: Tuesday, November 22, 2016 04:25 - CONCLUSION: 1. Cavitary lesion in the right mid lung appears somewhat smaller when compared to prior. Multiple nodular densities previously seen in the left lung are less conspicuous on the current exam. 2. Stable position of life support tubes including a right sided thoracostomy tube. There may be a developing loculated pneumothorax inferolaterally on the right with marked improvement in the previously seen right-sided effusion. 3. Left basilar consolidation/effusion David Rojas MD Brain MRI 11/21/16 0000 Signed Impressions: Service Date/Time: November 12:33 - CONCLUSION: Multifocal areas of restricted diffusion primarily in the periventricular and subcortical white matter bilaterally but also cortically based in the right frontal lobe. Findings likely represent ischemic change likely related to septic emboli given the patient's clinical history. No abscess or enhancing lesion is visualized. Agustin Bonner MD Head CT 11/17/16 0600 Signed Impressions: Service Date/Time: Thursday, November 17, 2016 10:39 - CONCLUSION: No significant change has occurred. Deven Urrutia MD Chest CT 11/16/16 0000 Signed Impressions: Service Date/Time: Wednesday, November 16, 2016 20:36 - CONCLUSION: 1. New right chest tube in the posterior superior right pleural space. There continues to be a moderate right pleural effusion primarily seen at the base. Some degree of loculation may be present inferiorly. The effusion does not layer posteriorly. There are scattered punctate areas of air within the pleural space inferiorly on the right. There is a solitary small area of air within the mild left pleural effusion. 2. Numerous irregular masses seen throughout both lungs some which are cavitary. These are nonspecific. Inflammatory masses needs be suspected. The multiplicity raises possibility of septic emboli. Agustin Price MD Abdomen X-Ray 11/15/16 0600 Signed Impressions: Service Date/Time: Tuesday, November 15, 2016 03:07 - CONCLUSION: Probable mild ileus involving loops of bowel on the left side. Reba Banerjee MD Abdomen/Pelvis CT 11/14/16 0000 Signed Impressions: Service Date/Time: October 09:55 - CONCLUSION: 1. Multiple loops of fluid-filled small bowel which are larger in caliber in comparison to yesterday's examination although not enlarged by size criteria. This may reflect mild enteritis versus developing mild adynamic ileus. 2. Persistent luminal narrowing at the gastroduodenal junction without definite focal mass. This is of uncertain clinical significance and likely reflects gastric contraction. Gastric mass/metastatic disease is not very likely based on appearance although it cannot be excluded. 3. 2 cm ill-defined hypodense lesion in the left renal mid pole with indeterminate density. Differential considerations include complex cyst versus metastatic disease in this patient with apparent diffuse metastatic disease in the chest. 4. Redemonstration of multiple bilateral cavitary masses at the lung bases with loculated right pleural effusion. Elder Long MD CT Angiography 11/13/16 1328 Signed Impressions: Service Date/Time: Sunday, November 13, 2016 15:50 - CONCLUSION: 1. Multiple cavitary lesions within both lungs with the largest measuring 9.5 cm in the right upper lobe. Differential diagnosis includes infectious and neoplastic etiologies. 2. Moderate sized right pleural effusion with adjacent compressive atelectasis and/or infiltrate. 3. Cardiomegaly and coronary artery calcifications. 4. Subcarinal mediastinal lymphadenopathy. 5. Degenerative changes throughout the thoracic spine. Jed Ponce MD Objective Remarks GENERAL: 56-year-old male, critically ill currently orotracheally intubated SKIN: Warm and dry. Scattered skin lesions erythematous predominantly left lower extremity HEAD: Normocephalic and atraumatic. EYES: No injection, drainage. Pupils equally round and reactive around 3 mm bilaterally 2 mm. ENT: No nasal drainage noted. Oropharynx is clear. NECK: Supple. No JVD or thyromegaly or lymphadenopathy. Left IJ is clean dry and intact CARDIOVASCULAR: Tachycardic, RR. S1, S2. No S4. Aortic regurgitation murmur not appreciated. RESPIRATORY: Diminished breath sounds bilaterally. Mild expiratory wheezing and few crackles. Right chest tube 170 ml output, L pigtail 210 ml output in 24 hours GASTROINTESTINAL: Abdomen is soft, distended no rebound or guarding on examination. Hypoactive bowel sounds are appreciated MUSCULOSKELETAL: Mild swelling of bilateral ankles. Multiple erythematous raised lesions on bilateral lower extremity predominantly left lower leg NEUROLOGICAL: Precedex and fentanyl ventilator synchrony. Awake, Moving all 4 extremity spontaneously and follows commands Date of Insertion: Nov 16, 2016 Line: Central Venous Catheter Side: Left Location: Internal, Jugular A/P Assessment and Plan NEURO/PSYCH: Metabolic encephalopathy Septic brain emboli On Precedex and Fentanyl infusion for sedation/analgesia while intubated. Will DC Precedex and re start propofol as the patient is noted ready for extubation Goal of RASS -2. Daily sedation vacation. steadily improving neuro exam MRI brain 11/21: Ischemic changes likely related to septic emboli. Neuro consulted Dr. Hernandez CT head 11/17 revealed no acute intracranial findings currently no signs of gross embolic events. On Thiamine/MVI/Folic acid RESP: Bilateral cavitary lung lesions/most likely cavitating pneumonia from staph aureus Acute respiratory failure Large right loculated pleural effusion/empyema Left pleural effusion PRVC 16/600/1.1/50. Continue with vent support keep sat >90%.Decrease FIO2 40 % as tiki. Duo nebs every 4 hours with albuterol nebs every 2 hours. Vent bundle. Daily SBT Right-sided chest tube #28 Swiss- monitor CT drainage( Drained 170 ml in 24 hours) Left-sided chest tube #10 Swiss- Drained 1600ml since placement 11/24/16 - Right thoracentesis with 1 L cloudy yellow fluid removed, fluid cell studies WBC 2,600, - Patient status post pigtail catheter placement 11/14, 445 cc prior pulled out 11/15. Evaluated by Dr. Samuels/CT surgery. Per his recommendations, No indication for decortication at this time Bedside US to evaluate L effusion today CV: Aortic valve endocarditis/large vegetation Sinus tachycardia Atrial fibrillation with RVR early normal sinus rhythm Elevated troponin - likely rate dependent Monitor HR and BP keep MAP>65mmHg - Stress dose steroids-Hydrocortisone 50mg IV Q12 - 2-D echocardiogram revealed EF 55-60%. Moderate AR. CHANDNI revealed 17 mm x 17 millimeter mobile mass on aortic valve. limited echo 11/22 Persistent vegetation - CT surgery. Recommendations no intervention at this time GI: Hypoalbuminemia Continue tube feeds with Glucerna 1.5 goal 55 cc an hour. IV Protonix for GI prophylaxis. Chinyere-Colace and MiraLAX for bowel regimen Reglan for bowel motility - CT of the abdomen pelvis with IV contrast revealed possible ileus., Gastric contraction at gastric duodenal junction. 2 mm renal cyst. - KUB 11/15 revealed improving mild ileus. GI is following. : Monitor renal function, I/O's, electrolytes replacement per protocol. BMP ID: Severe sepsis New fever Multilobar cavitating pneumonia secondary staph aureus Staph aureus empyema - Continue with abx per ID ( IV Vanco, Ancef, Gent) monitor for signs of infections ( Fever, WBC) WBC is trending down - Repeat kumar culture for new fever - May need central line changed or DCd Pertinent cultures 11/13 - blood cultures 2 - staph aureus 11/13 and 11/14- pleural fluid- staph aureus 11/14- sputum- staph aureus 11/15 - blood cultures 2 - pending 11/16 - Bronch samples: Staph Aureus 11/16 Sputum: Staph Aureus HEME: Leukocytosis Normocytic anemia - Monitor CBC, CMP, coags ENDO: SSI with accuchecks for glycemic control TSH 0.6. PROPH: - Bilateral lower extremity SCDs. Heparin SQ, IV Protonix for prophylaxis LINES: - Left IJ CVL, Right Femoral Art line placed 11/16-DC Art line Palliative care is following Care time 32 minutes excluding procedures. New fever today, kumar cultured. Not tolerating SBT, becomes tachypneic. Mother and sister Updated. Jan Velez MD Nov 24, 2016 12:38
--- NOTE | 2016-11-24 13:47 | HHI.PR ---
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 Diagnosis/Plan: Subjective Subjective Comments No acute events reported Active Medications Current Medications Medications (Trade) Dose Ordered Sig/Gaye Route Start Time Stop Time Status Last Admin (NS Flush) 2 ml UNSCH PRN IV FLUSH 11/13/16 17:15 (NS Flush) 2 ml BID IV FLUSH 11/13/16 21:00 11/23/16 20:12 Miscellaneous Information 1 Q361D XX 11/13/16 17:15 (Chlorhexidine 2% Cloth) Taper DAILY@04 TOP 11/14/16 04:00 11/10/17 03:59 11/24/16 04:00 (Chlorhexidine 2% Cloth) 3 pack UNSCH PRN TOP 11/13/16 17:15 (Chinyere-Colace) 1 tab BID PO 11/13/16 21:00 11/24/16 08:00 (Zofran Inj) 4 mg Q6H PRN IV PUSH 11/14/16 06:30 11/14/16 06:52 (Morphine Inj) 2 mg Q3H PRN IV PUSH 11/14/16 09:00 11/14/16 12:32 (Protonix Inj) 40 mg BID IV 11/14/16 21:00 11/24/16 07:59 Polyethylene Glycol 17 gm 17 gm BID PO 11/14/16 21:00 11/23/16 20:13 (Ancef 2 Gm Premix) 50 ml @ 100 mls/hr Q8H IV 11/15/16 17:00 11/24/16 07:58 (Restoril) 15 mg HS PRN PO 11/15/16 21:00 (Reglan Inj) 10 mg Q8HR IV 11/16/16 14:00 11/24/16 05:36 Metoprolol Tartrate 5 mg 5 mg Q4HR IV PUSH 11/16/16 12:00 Hold 11/16/16 11:57 (Gentamicin Consult Pharmacy) 0 ml @ 0 mls/hr UNSCH OTHER 11/16/16 11:45 Chlorhexidine Gluconate 15 ml 15 ml BID@08,20 MT 11/16/16 20:00 11/24/16 08:02 (fentaNYL DRIP) 250 ml @ 0 mls/hr TITRATE IV 11/16/16 16:30 11/24/16 08:06 (NS Flush) DAILY IVF 11/17/16 09:00 11/23/16 08:19 (NS Flush) UNSCH PRN IVF 11/16/16 17:15 (Cardizem) 30 mg QID NG 11/16/16 18:00 Hold Terbutaline Sulfate 1 mg 1 mg UNSCH PRN SQ 11/16/16 17:15 Phenylephrine HCl 160 mg/Dextrose 500 ml @ 0 mls/hr TITRATE IV 11/16/16 18:00 11/17/16 21:48 (Pitressin Inj/ D5W 100 ml Inj) 100 ml @ 1.5 mls/hr Q24H IV 11/16/16 21:57 11/16/16 23:05 (Tears Naturale Opth Soln) 1 drop Q8HR EACH EYE 11/17/16 14:00 11/24/16 05:38 (NovoLOG SUPPLEMENTAL SCALE) 1 Q6H SQ 11/18/16 11:00 11/22/16 11:48 (Vitamin B1) 100 mg DAILY PO 11/18/16 10:15 11/24/16 08:00 (Folate) 1 mg DAILY PO 11/18/16 10:15 11/24/16 08:00 (Theragran) 1 tab DAILY PO 11/18/16 10:15 11/24/16 07:59 (Heparin Inj) 5,000 units Q12HR SQ 11/18/16 21:00 11/24/16 07:59 (D50w (Vial) Inj) 25 ml UNSCH PRN IV PUSH 11/18/16 10:45 (Glucagon Inj) 1 mg UNSCH PRN OTHER 11/18/16 10:45 Lactulose 30 ml 30 ml DAILY PO 11/18/16 12:30 11/22/16 08:10 (Gentamicin 80 Mg Premix) 100 ml @ 200 mls/hr Q12H IV 11/20/16 12:00 11/24/16 00:50 Hydrocortisone Sodium Succinate 50 mg 50 mg Q12HR IV PUSH 11/22/16 21:00 11/24/16 08:01 Dextrose 1,000 ml @ 150 mls/hr Q6H40M IV 11/23/16 09:00 11/24/16 00:51 (Diprivan 1000 Mg/100ml Inj) 100 ml @ 0 mls/hr TITRATE IV 11/24/16 12:45 Allergies Allergies Coded Allergies No Known Allergies (Unverified11/13/16) Exam I&O / VS 11/23/16 11/23/16 11/24/16 15:00 23:00 07:00 Intake Total 1423 ml 1415 ml 2112 ml Output Total 645 ml 450 ml 985 ml Balance 778 ml 965 ml 1127 ml IV Total 950 ml 1096 ml 1607 ml Tube Feeding 473 ml 319 ml 505 ml Output Urine Total 525 ml 350 ml 475 ml Stool Total 100 ml 50 ml 200 ml Chest Tube Drainage Total 20 ml 50 ml 310 ml Vital Signs Date Time Temp Pulse Resp B/P Pulse Ox O2 Delivery O2 Flow Rate FiO2 11/24/16 11:11 99 40 11/24/16 07:45 95 40 11/24/16 06:00 80 11/24/16 04:17 100 50 11/24/16 04:00 50 11/24/16 04:00 101.3 83 20 109/54 100 147/53 11/24/16 04:00 79 11/24/16 02:00 80 11/24/16 01:05 100 50 11/24/16 00:00 80 11/24/16 00:00 101.4 90 25 110/53 100 114/49 11/24/16 00:00 50 11/23/16 22:05 100 50 11/23/16 22:00 82 11/23/16 20:31 98 60 11/23/16 20:00 50 11/23/16 20:00 101.3 82 16 102/52 100 117/50 11/23/16 20:00 82 11/23/16 18:00 81 11/23/16 18:00 81 16 104/52 100 110/48 11/23/16 17:30 82 16 103/55 100 106/46 11/23/16 17:00 86 10 110/53 100 109/49 11/23/16 16:56 87 0 108/53 100 112/52 11/23/16 16:52 90 1 110/53 100 113/52 11/23/16 16:48 92 0 112/53 100 118/55 11/23/16 16:44 94 33 110/57 96 121/48 11/23/16 16:40 100 38 103/58 96 143/65 11/23/16 16:36 100 13 102/57 95 140/67 11/23/16 16:32 100 7 102/56 94 137/65 11/23/16 16:28 105 17 105/57 89 141/66 11/23/16 16:24 105 1 111/57 89 148/71 11/23/16 16:20 107 0 112/56 89 148/71 11/23/16 16:16 108 1 114/60 88 151/72 11/23/16 16:12 108 2 115/59 89 152/74 11/23/16 16:08 100 0 100/49 87 129/56 11/23/16 16:00 98.9 96 29 114/54 95 123/51 11/23/16 16:00 100 11/23/16 16:00 96 11/23/16 15:31 102 29 119/57 100 135/55 11/23/16 15:25 98 40 11/23/16 15:00 104 34 109/57 90 136/56 11/23/16 14:30 98 26 112/57 97 128/53 11/23/16 14:00 106 27 123/58 84 134/55 11/23/16 14:00 106 Exam Comments more alert today. Follows simple commands PERRL, EOM-intact MOTOR moves both UE equally with no focal deficit noted Objective Micro and Labs Laboratory Tests Test 11/23/16 11/23/16 16:45 21:07 Pleural Fluid pH 9.0 Pleural Fluid WBC 191 Pleural Fluid RBC 82 Pleural Fluid Neutrophils 31 Pleural Fluid Lymphocytes 47 Pleural Fluid Monocytes 7 Pleural Fluid Plasma Cells 6 Pleural Fluid Mesothelial 9 Cells Sodium Level 154 Date/Time Procedure Status Source Growth 11/23/16 16:45 Gram Stain - Final Resulted Fluid Pleural Fluid 11/23/16 16:45 Body Fluid Culture Resulted Fluid Pleural Fluid Pending 11/23/16 16:45 Fungal Smear - Final Resulted Fluid Pleural Fluid NO FUNGAL ELEMENTS SEEN. 11/23/16 16:45 Fungal Culture Resulted Fluid Pleural Fluid Pending 11/23/16 16:45 Acid Fast Stain Received Fluid Pleural Fluid Pending 11/23/16 16:45 Mycobacterial Culture Received Fluid Pleural Fluid Pending 11/19/16 21:50 Aerobic Blood Culture - Final Complete Blood Peripheral NO GROWTH IN 5 DAYS 11/19/16 21:50 Anaerobic Blood Culture - Final Complete Blood Peripheral NO GROWTH IN 5 DAYS Adarsh Hernandez PhD Nov 24, 2016 13:47
[2016-11-24] MEDS: PROPOFOL 1000 MG/100 ML INJ 100 ML IV SCH (14:05)
--- NOTE | 2016-11-24 14:24 | HHI.IDPN ---
Note Infectious Disease Note Patient intubated. On the vent. CPAP in progress. Tolerating. Sedated. follows commands. Temp increased. Becomes agitated and tachycardic when sedation is lifted. Pulled out his arterial line. D/W RN. Large vegetation on AV and moderate aortic regurg on CHANDNI. Culture of blood 11/13, 11/15, 11/16. - Staph aureus. 11/19 no growth. Culture of pleural fluid 11/14 - staph aureus. Presented to the emergency department with a 2-week history of weakness. He was noted to have low oxygen saturation. He reported that he had productive cough over the past couple of weeks and was experiencing shortness of breath. ALLERGIES NO KNOWN DRUG ALLERGIES. OBJECTIVE: Vital Signs Date Time Temp Pulse Resp B/P Pulse Ox O2 Delivery O2 Flow Rate FiO2 11/24/16 12:00 40 11/24/16 11:11 99 40 11/24/16 08:00 40 11/24/16 07:45 95 40 11/24/16 06:00 80 11/24/16 04:17 100 50 11/24/16 04:00 50 11/24/16 04:00 101.3 83 20 109/54 100 147/53 11/24/16 04:00 79 11/24/16 02:00 80 11/24/16 01:05 100 50 11/24/16 00:00 80 11/24/16 00:00 101.4 90 25 110/53 100 114/49 11/24/16 00:00 50 11/23/16 22:05 100 50 11/23/16 22:00 82 11/23/16 20:31 98 60 11/23/16 20:00 50 11/23/16 20:00 101.3 82 16 102/52 100 117/50 11/23/16 20:00 82 11/23/16 18:00 81 11/23/16 18:00 81 16 104/52 100 110/48 11/23/16 17:30 82 16 103/55 100 106/46 11/23/16 17:00 86 10 110/53 100 109/49 11/23/16 16:56 87 0 108/53 100 112/52 11/23/16 16:52 90 1 110/53 100 113/52 11/23/16 16:48 92 0 112/53 100 118/55 11/23/16 16:44 94 33 110/57 96 121/48 11/23/16 16:40 100 38 103/58 96 143/65 11/23/16 16:36 100 13 102/57 95 140/67 17 16:32 100 7 102/56 94 137/65 11/23/16 16:28 105 17 105/57 89 141/66 11/23/16 16:24 105 1 111/57 89 148/71 11/23/16 16:20 107 0 112/56 89 148/71 11/23/16 16:16 108 1 114/60 88 151/72 11/23/16 16:12 108 2 115/59 89 152/74 11/23/16 16:08 100 0 100/49 87 129/56 11/23/16 16:00 98.9 96 29 114/54 95 123/51 11/23/16 16:00 100 11/23/16 16:00 96 11/23/16 15:31 102 29 119/57 100 135/55 11/23/16 15:25 98 40 11/23/16 15:00 104 34 109/57 90 136/56 11/23/16 14:30 98 26 112/57 97 128/53 11/23/16 11/23/16 11/24/16 15:00 23:00 07:00 Intake Total 1423 ml 1415 ml 2112 ml Output Total 645 ml 450 ml 985 ml Balance 778 ml 965 ml 1127 ml IV Total 950 ml 1096 ml 1607 ml Tube Feeding 473 ml 319 ml 505 ml Output Urine Total 525 ml 350 ml 475 ml Stool Total 100 ml 50 ml 200 ml Chest Tube Drainage Total 20 ml 50 ml 310 ml Laboratory Tests Test 11/23/16 04:00 White Blood Count 17.0 TH/MM3 Red Blood Count 2.55 MIL/MM3 Hemoglobin 7.9 GM/DL Hematocrit 24.3 % Mean Corpuscular Volume 95.1 FL Mean Corpuscular Hemoglobin 30.7 PG Mean Corpuscular Hemoglobin 32.3 % Concent Red Cell Distribution Width 15.0 % Platelet Count 297 TH/MM3 Mean Platelet Volume 7.8 FL Neutrophils (%) (Auto) 86.3 % Lymphocytes (%) (Auto) 7.6 % Monocytes (%) (Auto) 6.0 % Eosinophils (%) (Auto) 0.1 % Basophils (%) (Auto) 0.0 % Neutrophils # (Auto) 14.7 TH/MM3 Lymphocytes # (Auto) 1.3 TH/MM3 Monocytes # (Auto) 1.0 TH/MM3 Eosinophils # (Auto) 0.0 TH/MM3 Basophils # (Auto) 0.0 TH/MM3 CBC Comment DIFF FINAL Differential Comment Laboratory Tests Test 11/22/16 11/23/16 11/23/16 11/23/16 17:00 04:00 12:00 21:07 Sodium Level 155 MEQ/L 157 MEQ/L 157 MEQ/L 154 MEQ/L Potassium Level 4.0 MEQ/L 3.8 MEQ/L Chloride Level 117 MEQ/L 119 MEQ/L Carbon Dioxide Level 34.6 MEQ/L 35.4 MEQ/L Anion Gap 3 MEQ/L 3 MEQ/L Blood Urea Nitrogen 31 MG/DL 32 MG/DL Creatinine 0.72 MG/DL 0.79 MG/DL Estimat Glomerular Filtration 113 ML/MIN 102 ML/MIN Rate Random Glucose 106 MG/DL 114 MG/DL Calcium Level 8.4 MG/DL 8.2 MG/DL Phosphorus Level 2.5 MG/DL Magnesium Level 2.6 MG/DL Microbiology Date/Time Procedure Status Source Growth 11/23/16 16:45 Gram Stain - Final Resulted Fluid Pleural Fluid 11/23/16 16:45 Body Fluid Culture - Preliminary Resulted Fluid Pleural Fluid NO GROWTH IN 24 HOURS. 11/23/16 16:45 Acid Fast Stain Received Fluid Pleural Fluid Pending 11/23/16 16:45 Mycobacterial Culture Received Fluid Pleural Fluid Pending 11/23/16 16:45 Fungal Smear - Final Resulted Fluid Pleural Fluid NO FUNGAL ELEMENTS SEEN. 11/23/16 16:45 Fungal Culture Resulted Fluid Pleural Fluid Pending 11/24/16 14:10 Aerobic Blood Culture Received Blood Peripheral Pending 11/24/16 14:10 Anaerobic Blood Culture Received Blood Peripheral Pending 11/24/16 14:15 Aerobic Blood Culture Received Blood Peripheral Pending 11/24/16 14:15 Anaerobic Blood Culture Received Blood Peripheral Pending IMAGING: Chest X-Ray 11/24/16 0000 Signed Impressions: Service Date/Time: Thursday, November 24, 2016 10:31 - CONCLUSION: Similar to previous study. The cavitary lesion right lung is stable. Right-sided chest remains in good position. Residual air right lower lateral costophrenic angle. Tubes and catheters in good position. Sawyer Robertson MD Chest X-Ray 11/23/16599 Signed Impressions: Service Date/Time: Wednesday, November 23, 2016 03:50 - CONCLUSION: 1. Stable appearance of the chest of a 5.7 cm cavitary lesion in the right upper lobe, left basilar consolidation/effusion and haziness over the left chest possibly representing a posterior layering effusion. 2. Peripherally positioned nodular densities in the left mid chest. These are all stable. 3. Right-sided thoracostomy tube without effusion. There may be a small loculated pneumothorax laterally in the right base, however. 4. Cardiomegaly David Rojas MD Brain MRI 11/21/16 0000 Signed Impressions: Service Date/Time: November 12:33 - CONCLUSION: Multifocal areas of restricted diffusion primarily in the periventricular and subcortical white matter bilaterally but also cortically based in the right frontal lobe. Findings likely represent ischemic change likely related to septic emboli given the patient's clinical history. No abscess or enhancing lesion is visualized. Agustin Bonner MD Head CT 11/17/16599 Signed Impressions: Service Date/Time: Thursday, November 17, 2016 10:39 - CONCLUSION: No significant change has occurred. Deven Urrutia MD Chest X-Ray 11/17/16599 Signed Impressions: Service Date/Time: Thursday, November 17, 2016 03:36 - CONCLUSION: Diffuse airspace disease a large cavity in the right midlung zone is unchanged. Tubes and catheter are in good position. Sawyer Robertson MD Chest CT 11/16/16 0000 Signed Impressions: Service Date/Time: Wednesday, November 16, 2016 20:36 - CONCLUSION: 1. New right chest tube in the posterior superior right pleural space. There continues to be a moderate right pleural effusion primarily seen at the base. Some degree of loculation may be present inferiorly. The effusion does not layer posteriorly. There are scattered punctate areas of air within the pleural space inferiorly on the right. There is a solitary small area of air within the mild left pleural effusion. 2. Numerous irregular masses seen throughout both lungs some which are cavitary. These are nonspecific. Inflammatory masses needs be suspected. The multiplicity raises possibility of septic emboli. Agustin Price MD Abdomen X-Ray 11/15/16 0600 Signed Impressions: Service Date/Time: Tuesday, November 15, 2016 03:07 - CONCLUSION: Probable mild ileus involving loops of bowel on the left side. Reba Banerjee MD Abdomen/Pelvis CT 11/14/16 0000 Signed Impressions: Service Date/Time: October 09:55 - CONCLUSION: 1. Multiple loops of fluid-filled small bowel which are larger in caliber in comparison to yesterday's examination although not enlarged by size criteria. This may reflect mild enteritis versus developing mild adynamic ileus. 2. Persistent luminal narrowing at the gastroduodenal junction without definite focal mass. This is of uncertain clinical significance and likely reflects gastric contraction. Gastric mass/metastatic disease is not very likely based on appearance although it cannot be excluded. 3. 2 cm ill-defined hypodense lesion in the left renal mid pole with indeterminate density. Differential considerations include complex cyst versus metastatic disease in this patient with apparent diffuse metastatic disease in the chest. 4. Redemonstration of multiple bilateral cavitary masses at the lung bases with loculated right pleural effusion. Elder Long MD CT Angiography 11/13/16 1328 Signed Impressions: Service Date/Time: Sunday, November 13, 2016 15:50 - CONCLUSION: 1. Multiple cavitary lesions within both lungs with the largest measuring 9.5 cm in the right upper lobe. Differential diagnosis includes infectious and neoplastic etiologies. 2. Moderate sized right pleural effusion with adjacent compressive atelectasis and/or infiltrate. 3. Cardiomegaly and coronary artery calcifications. 4. Subcarinal mediastinal lymphadenopathy. 5. Degenerative changes throughout the thoracic spine. Jed Ponce MD PHYSICAL EXAMINATION GENERAL: On the vent. HEENT: No icterus. Oropharynx moist mucosa without lesions. NECK: Supple without adenopathy. LUNGS: Coarse bilateral rhonchi same. HEART: Normal S1-S2 without audible murmurs, rubs or gallops. ABDOMEN: Bowel sounds present, soft. Distended. EXTREMITIES: No clubbing or cyanosis or edema. SKIN: Punctate erythematous lesions at the lower extremities including the left tibia, left foot and right foot which blanches with palpation. NEURO: Sedated. PSYCH: unable to assess. IMPRESSION 1. Sepsis. Endocarditis Aortic valve Staph aureus (MSSA). 2. Cavitary pulmonary lesions. Embolic./ [employer] ischemic lesions suggesting embolic lesions. 3. Pneumonia/parapneumonic effusion- MSSA. 4. Skin lesions which potentially could be embolic. 5. Leukocytosis secondary to infection. WBC lower. 6. Fever secondary to infection. ? line related at this point. RECOMMENDATIONS 1. Continue IV Ancef. 2. Continue Gentamycin. 3. Monitor blood culture. 4. Monitor white blood cell count. Decreasing. 5. Monitor temp. 6. Agree with central line change. . Slava Garcia MD Nov 24, 2016 14:24
[2016-11-24] MEDS ORDERED: DEXTROSE 5% IN WATE 500 ML INJ 500 ML IV ONE (16:00)
[2016-11-24] MEDS: VASOPRESSIN INJ 40 UNITS in DEXTROSE 5% IN WATER 100ML INJ 98 ML IV SCH ×2 (20:20)
[2016-11-25] VITALS (23 sets, daily range): BP systolic 104–139; BP diastolic 53–61; PULSE 82–109; RESP 16–21; TEMP 97.6–99.9; O2SAT 92–100
[2016-11-25] MEDS: ceFAZolin 2 GM PREMIX 50 ML IV SCH ×3 (00:34→17:47)
[2016-11-25] MEDS: DEXTROSE 5% IN WATE 1000ML INJ 1,000 ML IV SCH ×4 (02:21→19:39)
[2016-11-25] MEDS: PROPOFOL 1000 MG/100 ML INJ 100 ML IV SCH ×3 (02:31→17:47)
[2016-11-25] MEDS: CHLORHEXIDINE GLUCONATE 2 % 1 PACK (2 CLOTHS) TOP SCH (04:00)
[2016-11-25] MEDS: ARTIFICIAL TEARS OPTH SOLN 15 ML BTL EACH EYE SCH ×3 (05:22→21:17)
[2016-11-25] MEDS: METOCLOPRAMIDE HCL 10 MG/2 ML VIAL IV SCH ×3 (05:22→22:50)
[2016-11-25] MEDS: INSULIN ASPART SUPPLEMENTAL SCALE SQ SCH ×4 (05:24→22:55)
[2016-11-25 05:36] LABS: AUTOMATED NEUTROPHIL # 13.7 TH/MM3 (1.8-7.7); BASOPHIL % 0.1 % (0.0-2.0); HEMATOCRIT 22.6 % (39.0-51.0); HEMO FLAGS DIFF FINAL; LYMPH % 6.7 % (9.0-44.0); MEAN CELL VOLUME 96.8 FL (80.0-100.0); MEAN CORPUSCULAR HEMOGLOBIN 30.5 PG (27.0-34.0); MEAN CORPUSCULAR HGB CONC 31.5 % (32.0-36.0); MONO % 4.8 % (0.0-8.0); NEUT % 88.4 % (16.0-70.0); PLATELET COUNT 223 TH/MM3 (150-450); RED BLOOD COUNT 2.33 MIL/MM3 (4.50-5.90); WHITE BLOOD COUNT 15.5 TH/MM3 (4.0-11.0)
[2016-11-25 05:54] LABS: ANION GAP 5 MEQ/L (5-15); AST (GOT) 25 U/L (15-37); BICARBONATE 31.6 MEQ/L (21.0-32.0); BLOOD UREA NITROGEN 36 MG/DL (7-18); CHLORIDE 113 MEQ/L (98-107); GLOMERULAR FILTRATION RATE 75 ML/MIN (>89); MAGNESIUM 2.5 MG/DL (1.5-2.5); POTASSIUM 3.7 MEQ/L (3.5-5.1); SODIUM (NA) 150 MEQ/L (136-145)
[2016-11-25 05:56] LABS: ALT (GPT) 26 U/L (12-78)
[2016-11-25 05:57] LABS: ALKALINE PHOSPHATASE 83 U/L (45-117); TOTAL BILIRUBIN ADULT 0.4 MG/DL (0.2-1.0)
--- NOTE | 2016-11-25 07:13 | RADRPT ---
EXAM DATE/TIME: 11/25/2016 04:41 [facility] COMPARISON: CHEST SINGLE AP, November 23, 2016, 16:59. CHEST SINGLE AP, November 24, 2016, 10:31. INDICATIONS : Shortness of breath, possible pulmonary disease. MEDICAL HISTORY : Sepsis. Cavitary mass SURGICAL HISTORY : Thoracentesis ENCOUNTER: Subsequent ACUITY: 2 weeks PAIN SCORE: Non-responsive. LOCATION: Bilateral chest FINDINGS: Right-sided chest tube remains in place. Small loculated pneumothorax is again noted in the right bas e. Cavitary lesion in the right mid to upper lung field is stable. Patchy airspace disease and interstitial vascular prominence remains throughout both lungs and may be slightly worse. Endotracheal tube and nasogastric remain in good position.. CONCLUSION: Mild increased interstitial vascular prominence. Stable right basilar loculated pneumothorax. Stable right lung cavitary lesion. Support devices remain in good position. Jose A Escobedo MD on November 25, 2016 at 7:09 Board Certified Radiologist. This report was verified electronically.
[2016-11-25] MEDS: PANTOPRAZOLE SODIUM 40 MG VIAL IV SCH ×2 (08:32→21:15)
[2016-11-25] MEDS: fentaNYL DRIP 250 ML IV SCH ×2 (08:32→22:51)
[2016-11-25] MEDS: POLYETHYLENE GLYCOL 17 GM PKG PO SCH ×2 (08:32→21:16)
[2016-11-25] MEDS: MULTIVITAMIN TAB PO SCH (08:33)
[2016-11-25] MEDS: DOCUSATE SODIUM 50 MG/SENNA 8.6 MG TAB PO SCH ×2 (08:33→21:00)
[2016-11-25] MEDS: THIAMINE HCL 100 MG TAB PO SCH (08:33)
[2016-11-25] MEDS: HEPARIN SODIUM - SQ 10,000 UNITS/ML VIAL SQ SCH ×2 (08:33→21:16)
[2016-11-25] MEDS: FOLIC ACID 1 MG TAB PO SCH (08:33)
[2016-11-25] MEDS: SODIUM CHLORIDE 0.9% FLUSH 10 ML FLUSH IV FLUSH SCH ×2 (08:34→21:16)
[2016-11-25] MEDS: LACTULOSE SYRUP 20 GM/30 ML CUP PO SCH (08:34)
[2016-11-25] MEDS: CHLORHEXIDINE 0.12% (ORAL KIT) 15 ML CUP MT SCH ×2 (08:34→21:15)
[2016-11-25] MEDS: SODIUM CHLORIDE 0.9% FLUSH 10 ML FLUSH IVF SCH (08:35)
--- NOTE | 2016-11-25 10:08 | HHI.CCPN ---
Subjective Remarks/Hospital Course 56-year-old male is brought to the emergency department by EMS for evaluation of generalized weakness, confusion for about 2 weeks, and also increasing shortness of breath. His oxygen saturation was 88% on room air. EMS administered breathing treatments and Solu-Medrol 125 mg 1 and placed him on nasal cannula. Patient states that he had been sick for almost 10 days, but he is a poor historian. He had a productive cough, but reports no hematemesis or weight loss. He states that it was his neighbor who made him called EMS. He has no past medical history and last time had seen a doctor was about 15 years ago. He denies any fevers but reports some night sweats and chills. He was tachycardic with a heart rate of 115 bpm, had severe leukocytosis with a white count of 35,000 with 91% neutrophils. CMP shows hyponatremia with a sodium of 126. Lactic acid is 2.4. His Chest x-ray shows large 7.7 x 7.8 cm cavitary right midlung lesion with associated right-sided pleural effusion. Subcentimeter left mid lung pulmonary nodules. Patient received 1 L normal saline bolus and Zosyn 4.5 g and Zithromax 500 mg IV and was placed on TB/ respiratory isolation. He has been being in senior care 2 years ago increasing his risk of tuberculosis. CT pulmonary angiogram negative for PE but showed multiple cavitary lesions within both lungs with the largest measuring 9.5 cm in the right upper lobe. Moderate size right pleural effusion. I evaluated the patient in the emergency department. Patient appears critically ill in moderate distress mildly tachypneic, sweating. I performed a bedside ultrasound which showed a right effusion which is large. The thoracentesis was performed and 1 L of cloudy dark pleural fluid was removed. Patient will be continued on Zosyn and Levaquin and vancomycin. ID consulted and I discussed with Dr. Steele-she recommended no empiric treatments for TB. 11/14/16: Patient seen and examined complaints of severe epigastric and periumbilical abdominal pain. Patient remains oriented to person. His white count is slightly improved from 35,000-28,9000. Na improved to 136. I have ordered a STAT CT abd/pelvis with IV contrast. Chest x-ray shows reaccumulation of right pleural effusion-fluid chemistries are pending but cell count indicates at least a parapneumonic effusion and patient will need a pigtail chest tube 11/15: Patient pulled his right-sided pigtail catheter out overnight last night. Currently nasal cannula in no acute distress. Afebrile. Continues to have a leukocytosis. 11/16: Currently on room air. Hold out his IVs reportedly overnight last night. Requesting diet. Awake and alert and following commands. Subjective 11/17: Intubated yesterday due to acute hypercapnic respiratory failure. Hypoxic post intubation requiring right chest tube placement, bronchoscopy and Flolan. Bronchoscopy revealed thick mucous plugging at bilateral right and left mainstem which were clear. Improved oxygenation over the past 12 hours. Afebrile. 11/18 Patient remains sedated with Diprivan, Fentanyl and intubated. On Vasopressin and Neosyn 120 mics. 11/19 Patient is sedated with Diprivan, Fentanyl and intubated. Afebrile. Off all pressors. Afebrile. WBC is trending down 30 today from 50. 11/20: Remains severely septic and encephalopathic even though weaned off all pressors. White count still elevated but trending down. Became extremely tachycardic and tachypneic on lowering sedation. We'll check MRI of the brain to rule out embolic infarct. Family at the bedside updated 11/21 Remains heavily sedated, remains encephalopathic. MRI brain is pending. Family is at bedside. Remains critically with resp failure severe from endocarditis, now unable to wean off the ventilator due to severe metabolic encephalopathy 11/22 No events overnight. Sedated with Diprivan, fentanyl and intubated. Afebrile. MRI brain yesterday showed ischemic changes likely related to septic emboli. 11/23: Patient remains encephalopathic, severe hyponatremia possible contributing , Na is 157 today. Currently on Precedex and fentanyl. CXR shows increasing L effusion 11/24: Patient more awake today. Follows Commands but did not tolerate spontaneous breathing trials. Had left pigtail chest tube placed yesterday 1.6 L transudative fluid removal since placement 11/25 Patient is sedated with Diprivan, Fentanyl and intubated. T:99.9 Objective Vital Signs Date Time Temp Pulse Resp B/P Pulse Ox O2 Delivery O2 Flow Rate FiO2 11/25/16 08:24 94 Ventilator 11/25/16 08:24 40 11/25/16 06:00 93 11/25/16 04:00 99.9 16 105/53 Intake and Output 11/24/16 11/24/16 11/25/16 08:00 16:00 00:00 Intake Total 2112 ml 2222 ml 2209 ml Output Total 985 ml 1050 ml 735 ml Balance 1127 ml 1172 ml 1474 ml Result Diagram: 11/25/16 0508 11/25/16 0508 Other Results Laboratory Tests Test 11/24/16 11/25/16 13:55 05:08 Sodium Level 154 MEQ/L 150 MEQ/L White Blood Count 15.5 TH/MM3 Red Blood Count 2.33 MIL/MM3 Hemoglobin 7.1 GM/DL Hematocrit 22.6 % Mean Corpuscular Volume 96.8 FL Mean Corpuscular Hemoglobin 30.5 PG Mean Corpuscular Hemoglobin 31.5 % Concent Red Cell Distribution Width 15.0 % Platelet Count 223 TH/MM3 Mean Platelet Volume 8.1 FL Neutrophils (%) (Auto) 88.4 % Lymphocytes (%) (Auto) 6.7 % Monocytes (%) (Auto) 4.8 % Eosinophils (%) (Auto) 0.0 % Basophils (%) (Auto) 0.1 % Neutrophils # (Auto) 13.7 TH/MM3 Lymphocytes # (Auto) 1.0 TH/MM3 Monocytes # (Auto) 0.7 TH/MM3 Eosinophils # (Auto) 0.0 TH/MM3 Basophils # (Auto) 0.0 TH/MM3 CBC Comment DIFF FINAL Differential Comment Potassium Level 3.7 MEQ/L Chloride Level 113 MEQ/L Carbon Dioxide Level 31.6 MEQ/L Anion Gap 5 MEQ/L Blood Urea Nitrogen 36 MG/DL Creatinine 1.03 MG/DL Estimat Glomerular Filtration 75 ML/MIN Rate Random Glucose 181 MG/DL Calcium Level 7.7 MG/DL Magnesium Level 2.5 MG/DL Total Bilirubin 0.4 MG/DL Aspartate Amino Transf 25 U/L (AST/SGOT) Alanine Aminotransferase 26 U/L (ALT/SGPT) Alkaline Phosphatase 83 U/L Total Protein 5.9 GM/DL Albumin 1.3 GM/DL Imaging Last Impressions Chest X-Ray 11/25/16 0600 Signed Impressions: Service Date/Time: Friday, November 25, 2016 04:41 - CONCLUSION: Mild increased interstitial vascular prominence. Stable right basilar loculated pneumothorax. Stable right lung cavitary lesion. Support devices remain in good position. Jose A Escobedo MD Brain MRI 11/21/16 Signed Impressions: Service Date/Time: November 12:33 - CONCLUSION: Multifocal areas of restricted diffusion primarily in the periventricular and subcortical white matter bilaterally but also cortically based in the right frontal lobe. Findings likely represent ischemic change likely related to septic emboli given the patient's clinical history. No abscess or enhancing lesion is visualized. Agustin Bonner MD Head CT 11/17/16599 Signed Impressions: Service Date/Time: Thursday, November 17, 2016 10:39 - CONCLUSION: No significant change has occurred. Deven Urrutia MD Chest CT 11/16/16 Signed Impressions: Service Date/Time: Wednesday, November 16, 2016 20:36 - CONCLUSION: 1. New right chest tube in the posterior superior right pleural space. There continues to be a moderate right pleural effusion primarily seen at the base. Some degree of loculation may be present inferiorly. The effusion does not layer posteriorly. There are scattered punctate areas of air within the pleural space inferiorly on the right. There is a solitary small area of air within the mild left pleural effusion. 2. Numerous irregular masses seen throughout both lungs some which are cavitary. These are nonspecific. Inflammatory masses needs be suspected. The multiplicity raises possibility of septic emboli. Agustin Price MD Abdomen X-Ray 11/15/16599 Signed Impressions: Service Date/Time: Tuesday, November 15, 2016 03:07 - CONCLUSION: Probable mild ileus involving loops of bowel on the left side. Reba Banerjee MD Abdomen/Pelvis CT 11/14/16 Signed Impressions: Service Date/Time: October 09:55 - CONCLUSION: 1. Multiple loops of fluid-filled small bowel which are larger in caliber in comparison to yesterday's examination although not enlarged by size criteria. This may reflect mild enteritis versus developing mild adynamic ileus. 2. Persistent luminal narrowing at the gastroduodenal junction without definite focal mass. This is of uncertain clinical significance and likely reflects gastric contraction. Gastric mass/metastatic disease is not very likely based on appearance although it cannot be excluded. 3. 2 cm ill-defined hypodense lesion in the left renal mid pole with indeterminate density. Differential considerations include complex cyst versus metastatic disease in this patient with apparent diffuse metastatic disease in the chest. 4. Redemonstration of multiple bilateral cavitary masses at the lung bases with loculated right pleural effusion. Elder Long MD CT Angiography 11/13/16 1328 Signed Impressions: Service Date/Time: Friday, November 13, 2016 15:50 - CONCLUSION: 1. Multiple cavitary lesions within both lungs with the largest measuring 9.5 cm in the right upper lobe. Differential diagnosis includes infectious and neoplastic etiologies. 2. Moderate sized right pleural effusion with adjacent compressive atelectasis and/or infiltrate. 3. Cardiomegaly and coronary artery calcifications. 4. Subcarinal mediastinal lymphadenopathy. 5. Degenerative changes throughout the thoracic spine. Jed Ponce MD Objective Remarks GENERAL: 56-year-old male, critically ill currently orotracheally intubated SKIN: Warm and dry. Scattered skin lesions erythematous predominantly left lower extremity HEAD: Normocephalic and atraumatic. EYES: No injection, drainage. Pupils equally round and reactive around 3 mm bilaterally 2 mm. ENT: No nasal drainage noted. Oropharynx is clear. NECK: Supple. No JVD or thyromegaly or lymphadenopathy. Left IJ is clean dry and intact CARDIOVASCULAR: Tachycardic, RR. S1, S2. No S4. Aortic regurgitation murmur not appreciated. RESPIRATORY: Diminished breath sounds bilaterally. Mild expiratory wheezing and few crackles. Right chest tube 170 ml output, L pigtail 210 ml output in 24 hours GASTROINTESTINAL: Abdomen is soft, distended no rebound or guarding on examination. Hypoactive bowel sounds are appreciated MUSCULOSKELETAL: Mild swelling of bilateral ankles. Multiple erythematous raised lesions on bilateral lower extremity predominantly left lower leg NEUROLOGICAL: Precedex and fentanyl ventilator synchrony. Awake, Moving all 4 extremity spontaneously and follows commands Date of Insertion: Nov 16, 2016 Line: Central Venous Catheter Side: Left Location: Internal, Jugular A/P Assessment and Plan NEURO/PSYCH: Metabolic encephalopathy Septic brain emboli On Diprivan and Fentanyl infusion for sedation/analgesia while intubated. Goal of RASS -2. Daily sedation vacation. steadily improving neuro exam MRI brain 11/21: Ischemic changes likely related to septic emboli. Neuro consulted Dr. Hernandez CT head 11/17 revealed no acute intracranial findings currently no signs of gross embolic events. On Thiamine/MVI/Folic acid RESP: Bilateral cavitary lung lesions/most likely cavitating pneumonia from staph aureus Acute respiratory failure Large right loculated pleural effusion/empyema Left pleural effusion PRVC 16/600/1.05/23/39. Continue with vent support keep sat >90%. Duo nebs every 4 hours with albuterol nebs every 2 hours. Vent bundle. Daily SBT Right-sided chest tube #28 Latv[place]- monitor CT drainage( Drained 380 ml in 24 hours) Left-sided chest tube #10 [place]- placed 11/24/16-drained 300 ml in 24 hrs - Right thoracentesis with 1 L cloudy yellow fluid removed, fluid cell studies WBC 2,600, - Patient status post pigtail catheter placement 11/14, 445 cc prior pulled out 11/15. Evaluated by Dr. Samuels/CT surgery. Per his recommendations, No indication for decortication at this time CV: Aortic valve endocarditis/large vegetation Sinus tachycardia Atrial fibrillation with RVR early normal sinus rhythm Elevated troponin - likely rate dependent Monitor HR and BP keep MAP>65mmHg - Stress dose steroids-Hydrocortisone 50mg IV Q12 - 2-D echocardiogram revealed EF 55-60%. Moderate AR. CHANDNI revealed 17 mm x 17 millimeter mobile mass on aortic valve. limited echo 11/22 Persistent vegetation - CT surgery. Recommendations no intervention at this time GI: Hypoalbuminemia Continue tube feeds with Glucerna 1.5@ 55 cc an hour. IV Protonix for GI prophylaxis. Chinyere-Colace and MiraLAX for bowel regimen Reglan for bowel motility - CT of the abdomen pelvis with IV contrast revealed possible ileus., Gastric contraction at gastric duodenal junction. 2 mm renal cyst. - KUB 11/15 revealed improving mild ileus. GI is following. : Monitor renal function, I/O's, electrolytes replacement per protocol. Decrease D5W 100ml/hr, add Free water 250ml Q8 monitor sodium level ( trending down) ID: Severe sepsis New fever Multilobar cavitating pneumonia secondary staph aureus Staph aureus empyema - Continue with abx per ID ( IV Vanco, Ancef, Gent) monitor for signs of infections ( Fever, WBC) WBC is trending down - Follow up on blood cxs from 11/24, fluid cxs from 11/23, check sputum cx Pertinent cultures 11/13 - blood cultures 2 - staph aureus 11/13 and 11/14- pleural fluid- staph aureus 11/14- sputum- staph aureus 11/15 - blood cultures 2 - pending 11/16 - Bronch samples: Staph Aureus 11/16 Sputum: Staph Aureus HEME: Leukocytosis Normocytic anemia - Monitor CBC, CMP, coags ENDO: SSI with accuchecks for glycemic control TSH 0.6. PROPH: - Bilateral lower extremity SCDs. Heparin SQ, IV Protonix for prophylaxis LINES: - Left IJ CVL placed 11/16 Palliative care is following Care time 30 minutes excluding procedures. Noam Calhoun MD Nov 25, 2016 10:08
[2016-11-25] MEDS: HYDROCORTISONE SOD SUCCINATE 100 MG VIAL IV PUSH SCH ×2 (11:41→21:16)
[2016-11-25] MEDS: GENTAMICIN/SOD CHL 80 MG/100 ML IV SCH ×2 (11:42→23:47)
--- NOTE | 2016-11-25 11:52 | MG ---
cc: MARITZA WILKERSON M.D. Lab No: [id number] Date: 11/24/2016 Age: 56 Sex: M Race: DATE OF : [address] Hernandez. Room 523. Intubated with photic stimulation, sedated ____ mcg, 1.3 mg. Unable to restless without sedation, intubated. MRI multifocal areas of restricted diffusion periventricular subcortical white matter, also right frontal lobe, history of 2 weeks confusion, generalized weakness. ____ gentamicin, Reglan, cephazolin, Dextrose, Fentanyl . DESCRIPTION OF RECORD Quite a bit of artifact, a lot of disorganization with the patient moving his arms and shaking his head. Overall what looks like a delta frequency. But again, there is so much artifact it is difficult to tell 2 Hz background, at one point he is asleep. There is no evidence of any epileptic activity. Photic stimulation there is no driving response. IMPRESSION Moderately severe background slowing consistent with what looks like an encephalopathic process without any epileptic activity. MD KAYY Singer/KELLY /9:37 AM /11:51 AM
[2016-11-25] MEDS: FREE WATER G-TUBE SCH ×2 (13:03→21:17)
--- NOTE | 2016-11-25 15:48 | HHI.HCPN ---
Reason for visit a. To assist with evaluation and management of symptoms including: dyspnea b. To assist medical decision maker(s) with: better understanding of current medical conditions; weighing benefits/burdens of medical treatment options; making medical treatment decisions. . Subjective/Interval History INTERVAL NOTE: The patient is seen in the [facility] and follow-up to reevaluate dyspnea, encephalopathy, and possible pain. Pt remains sedated and intubated. Over the weekend. neurology noted that pt followed some simple commands. Chest X ray today show mild increased in interstitial vascular prominence. Stable pneumothorax and right lung cavitary lesions. EEG showed moderate severe background slowing consistent with encephalopathic process, without epileptic activity. Family/friend interactions Spoke with pt's mother. Reviewed labs and gave update. Will meet with her tomorrow. Did went over the peg/trach decision, if we are not able to wean him off the ventilator. Advance Directives Living Will: Never completed Health Care Surrogate: Copy in medical record Durable Power of Deck Molder: Never completed Advance Directive Specifics Health Care Surrogate(s): The patient lacks capacity for decision-making, and it is uncertain whether he will regain that capacity. Initially, he had named his landlord Kerrie Correa as healthcare surrogate on 11/14/16, but she makes it very clear by telephone on 11/18/16 that "since there is family around, I do not want to be the decision-maker for him in any way." I spoke with the patient's 21-year-old son Alexei Mohan [phone] in [place] by telephone, and he reports that he also does not want to be involved in the decision making; "he has not had any impact or played any role in my life, so that would not be appropriate for me to make decisions for him." Thus, the patient's mother Nellie Ying is his healthcare proxy decision-maker. Objective Vital Signs Date Time Temp Pulse Resp B/P Pulse Ox O2 Delivery O2 Flow Rate FiO2 11/25/16 14:00 92 11/25/16 13:00 97 11/25/16 12:00 94 11/25/16 12:00 40 11/25/16 11:00 104 11/25/16 10:37 100 40 11/25/16 10:00 109 11/25/16 09:00 91 11/25/16 08:30 90 11/25/16 08:24 94 Ventilator 11/25/16 08:24 95 40 11/25/16 08:24 40 11/25/16 08:00 40 11/25/16 08:00 82 11/25/16 06:00 93 11/25/16 04:10 95 40 11/25/16 04:00 99.9 87 16 105/53 92 11/25/16 04:00 87 11/25/16 04:00 50 11/25/16 02:00 104 11/25/16 01:45 96 40 11/25/16 00:00 99.7 109 21 139/61 93 11/25/16 00:00 109 11/25/16 00:00 50 11/24/16 22:00 109 11/24/16 20:16 96 40 11/24/16 20:00 109 11/24/16 20:00 99.2 96 24 126/60 99 Arterial Line 11/24/16 20:00 50 11/24/16 18:00 93 11/24/16 17:00 101 11/24/16 16:00 40 11/24/16 16:00 99.8 91 27 117/56 92 11/24/16 16:00 91 Intake & Output 11/25/16 11/25/16 07:00 19:00 Intake Total 4694 ml 2282 ml Output Total 805 ml 870 ml Balance 3889 ml 1412 ml IV Total 3746 ml 1595 ml Tube Feeding 748 ml 437 ml Other 200 ml 250 ml Output Urine Total 275 ml 450 ml Stool Total 300 ml Chest Tube Drainage Total 230 ml 420 ml # Bowel Movements 2 Physical Exam CONSTITUTIONAL/GENERAL: This is an adequately nourished patient, sedated, on the ventilator in [facility]. TUBES/LINES/DRAINS: Central line, endotracheal tube, Santana catheter SKIN: No jaundice, rashes. He has multiple small, healing punctures and abrasions about his feet and ankles (reportedly from walking barefoot). CARDIOVASCULAR: Regular rate and rhythm with grade 2 systolic murmur. No JVD. Peripheral pulses symmetric. RESPIRATORY/CHEST: Symmetric, unlabored respirations. Scattered rhonchi GASTROINTESTINAL: Abdomen soft, nondistended. No hepato-splenomegaly, or palpable masses. No guarding. Bowel sounds present. MUSCULOSKELETAL: Extremities without clubbing, cyanosis, or edema. No joint tenderness or effusion noted. No mottling or clubbing. He has multiple small punctures and abrasions about his feet and ankles (reportedly from walking barefoot). NEUROLOGICAL: Opens eyes, tracks, follows some simple commands. PSYCHIATRIC: Seems restless at times . Diagnostic Tests Laboratory Laboratory Tests Test 11/22/16 11/23/16 11/23/16 11/23/16 17:00 04:00 12:00 16:45 Sodium Level 155 MEQ/L 157 MEQ/L 157 MEQ/L (136-145) (136-145) (136-145) Potassium Level 4.0 MEQ/L 3.8 MEQ/L (3.5-5.1) (3.5-5.1) Chloride Level 117 MEQ/L 119 MEQ/L (98-107) (98-107) Carbon Dioxide Level 34.6 MEQ/L 35.4 MEQ/L (21.0-32.0) (21.0-32.0) Anion Gap 3 MEQ/L (5-15) 3 MEQ/L (5-15) Blood Urea Nitrogen 31 MG/DL (7-18) 32 MG/DL (7-18) Creatinine 0.72 MG/DL 0.79 MG/DL (0.60-1.30) (0.60-1.30) Estimat Glomerular Filtration 113 ML/MIN 102 ML/MIN Rate (>89) (>89) Random Glucose 106 MG/DL 114 MG/DL (74-106) (74-106) Calcium Level 8.4 MG/DL 8.2 MG/DL (8.5-10.1) (8.5-10.1) Phosphorus Level 2.5 MG/DL (2.5-4.9) Magnesium Level 2.6 MG/DL (1.5-2.5) White Blood Count 17.0 TH/MM3 (4.0-11.0) Red Blood Count 2.55 MIL/MM3 (4.50-5.90) Hemoglobin 7.9 GM/DL (13.0-17.0) Hematocrit 24.3 % (39.0-51.0) Mean Corpuscular Volume 95.1 FL (80.0-100.0) Mean Corpuscular Hemoglobin 30.7 PG (27.0-34.0) Mean Corpuscular Hemoglobin 32.3 % Concent (32.0-36.0) Red Cell Distribution Width 15.0 % (11.6-17.2) Platelet Count 297 TH/MM3 (150-450) Mean Platelet Volume 7.8 FL (7.0-11.0) Neutrophils (%) (Auto) 86.3 % (16.0-70.0) Lymphocytes (%) (Auto) 7.6 % (9.0-44.0) Monocytes (%) (Auto) 6.0 % (0.0-8.0) Eosinophils (%) (Auto) 0.1 % (0.0-4.0) Basophils (%) (Auto) 0.0 % (0.0-2.0) Neutrophils # (Auto) 14.7 TH/MM3 (1.8-7.7) Lymphocytes # (Auto) 1.3 TH/MM3 (1.0-4.8) Monocytes # (Auto) 1.0 TH/MM3 (0-0.9) Eosinophils # (Auto) 0.0 TH/MM3 (0-0.4) Basophils # (Auto) 0.0 TH/MM3 (0-0.2) CBC Comment DIFF FINAL Differential Comment Pleural Fluid pH 9.0 Pleural Fluid WBC 191 /MM3 (0-10) Pleural Fluid RBC 82 /MM3 (0-0) Pleural Fluid Neutrophils 31 % Pleural Fluid Lymphocytes 47 % Pleural Fluid Monocytes 7 % Pleural Fluid Plasma Cells 6 % Pleural Fluid Mesothelial 9 % Cells Test 11/23/16 11/24/16 11/25/16 21:07 13:55 05:08 Sodium Level 154 MEQ/L 154 MEQ/L 150 MEQ/L (136-145) (136-145) (136-145) White Blood Count 15.5 TH/MM3 (4.0-11.0) Red Blood Count 2.33 MIL/MM3 (4.50-5.90) Hemoglobin 7.1 GM/DL (13.0-17.0) Hematocrit 22.6 % (39.0-51.0) Mean Corpuscular Volume 96.8 FL (80.0-100.0) Mean Corpuscular Hemoglobin 30.5 PG (27.0-34.0) Mean Corpuscular Hemoglobin 31.5 % Concent (32.0-36.0) Red Cell Distribution Width 15.0 % (11.6-17.2) Platelet Count 223 TH/MM3 (150-450) Mean Platelet Volume 8.1 FL (7.0-11.0) Neutrophils (%) (Auto) 88.4 % (16.0-70.0) Lymphocytes (%) (Auto) 6.7 % (9.0-44.0) Monocytes (%) (Auto) 4.8 % (0.0-8.0) Eosinophils (%) (Auto) 0.0 % (0.0-4.0) Basophils (%) (Auto) 0.1 % (0.0-2.0) Neutrophils # (Auto) 13.7 TH/MM3 (1.8-7.7) Lymphocytes # (Auto) 1.0 TH/MM3 (1.0-4.8) Monocytes # (Auto) 0.7 TH/MM3 (0-0.9) Eosinophils # (Auto) 0.0 TH/MM3 (0-0.4) Basophils # (Auto) 0.0 TH/MM3 (0-0.2) CBC Comment DIFF FINAL Differential Comment Potassium Level 3.7 MEQ/L (3.5-5.1) Chloride Level 113 MEQ/L (98-107) Carbon Dioxide Level 31.6 MEQ/L (21.0-32.0) Anion Gap 5 MEQ/L (5-15) Blood Urea Nitrogen 36 MG/DL (7-18) Creatinine 1.03 MG/DL (0.60-1.30) Estimat Glomerular Filtration 75 ML/MIN (>89) Rate Random Glucose 181 MG/DL (74-106) Calcium Level 7.7 MG/DL (8.5-10.1) Magnesium Level 2.5 MG/DL (1.5-2.5) Total Bilirubin 0.4 MG/DL (0.2-1.0) Aspartate Amino Transf 25 U/L (15-37) (AST/SGOT) Alanine Aminotransferase 26 U/L (12-78) (ALT/SGPT) Alkaline Phosphatase 83 U/L (45-117) Total Protein 5.9 GM/DL (6.4-8.2) Albumin 1.3 GM/DL (3.4-5.0) Result Diagram: 11/25/16 0508 11/25/16 0508 Microbiology Microbiology Date/Time Procedure Status Source Growth 11/23/16 16:45 Gram Stain - Final Resulted Fluid Pleural Fluid 11/23/16 16:45 Body Fluid Culture - Preliminary Resulted Fluid Pleural Fluid NO GROWTH IN 48 HOURS. 11/23/16 16:45 Acid Fast Stain Received Fluid Pleural Fluid Pending 11/23/16 16:45 Mycobacterial Culture Received Fluid Pleural Fluid Pending 11/23/16 16:45 Fungal Smear - Final Resulted Fluid Pleural Fluid NO FUNGAL ELEMENTS SEEN. 11/23/16 16:45 Fungal Culture Resulted Fluid Pleural Fluid Pending 11/24/16 14:10 Aerobic Blood Culture - Preliminary Resulted Blood Peripheral NO GROWTH IN 1 DAY 11/24/16 14:10 Anaerobic Blood Culture - Preliminary Resulted Blood Peripheral NO GROWTH IN 1 DAY 11/24/16 14:15 Aerobic Blood Culture - Preliminary Resulted Blood Peripheral NO GROWTH IN 1 DAY 11/24/16 14:15 Anaerobic Blood Culture - Preliminary Resulted Blood Peripheral NO GROWTH IN 1 DAY 11/25/16 05:15 Urine Culture Received Urine Catheterized Urine Pending 11/25/16 11:20 Gram Stain Received Sputum Endotracheal Pending 11/25/16 11:20 Sputum Culture Received Sputum Endotracheal Pending Procedures Thoracentesis and right (pigtail) thoracostomy 11/14/16 INTUBATION 11/16/16 Bronchoscopy 11/16/16 . 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 Never . One estranged son in [place]. Spiritual: The patient is not and has not ever been spiritual or yazidism person according to the family, but the family does want the detective lieutenant to continue to come and visit. Legal: The patient lacks capacity for decision-making, and it it is uncertain whether he will regain that capacity. Initially, he had named his landlord Kerrie Correa as healthcare surrogate, but she makes it very clear by telephone [phone] on 11/18/16 that "since there is family around, I do not want to be the decision-maker for him in any way." I spoke with the patient's 21-year-old son Alexei Mohan [phone] in [place] by telephone, and he reports that he also does not want to be involved in the decision making; "he has not had any impact or played any role in my life, so that would not be appropriate for me to make decisions for him." Thus, the patient's mother Nellie Ying is his healthcare proxy decision-maker. Ethical issues impacting care: None . Important Contacts Mother: Nellie Ying <----> PROXY DECISION-MAKER -- [phone] Son: (estranged for many years) Adarsh Mohan [phone] . Prognosis The patient has multisystem organ failure and septic shock with a large vegetation on his aortic valve, and his overall prognosis is quite guarded at best, and poor at worse. At risk for decompensation, sudden setback and . . Code Status: Full Code Plan * FULL CODE * DECISION-MAKING: The patient lacks capacity for decision-making at this time , and it is uncertain whether he will regain that capacity. The patient's mother Nellie Ying is his healthcare proxy decision-maker. * GOALS: The patient's family has been hoping that perhaps he will be able to get a new valve or that the current infection will somehow resolve with medical treatment. With his now documented multiple cerebral emboli and encephalopathy , the family members' goals for valve replacement and return to functional status remain quite challenging. * Meet with pt's mom tomorrow at 11:00am . * SYMPTOMS: Any pain or dyspnea is being managed by appropriate sedation and the ventilator, and I have no additional medication recommendations at this time. * Palliative Care will continue to follow the patient during this hospitalization. . Time Spent Total Floor Time (mins): 30 Attestation To help prompt me to consider important information that might be impacting today's encounter and assessment, information from prior notes written by myself or my colleagues may have been "brought forward" into today's note. My signature on this note, however, is an attestation that I personally performed the exam, history, and/or decision-making noted today, and, unless otherwise indicated, the interactions with patient, family, and staff as well as the review of records all occurred today. I also attest that the listed assessment and stated plan reflect my best clinical judgment today based on the combination of historical information, prior notes, and today's exam/ interactions. When time spent is documented, it refers only to time spent today by the signer, or if indicated, combined time spent today by collaborating physician/nurse practitioner. Celestine Hampton MD Nov 25, 2016 15:47
[2016-11-25 19:46] LABS: C. DIFF EPI 027 PRESUMPTIVE NEGATIVE (NEGATIVE); C. DIFF TOXIN PCR NEGATIVE (NEGATIVE)
--- NOTE | 2016-11-25 19:47 | HHI.PR ---
Subjective Remarks Patient was intubated last night for acute hypoxemic resp failure and a right chest tube was placed for right hydroPTX in addition patient underwent bronch with BAL ( mucous plugs b/l suctioned to clear). MRI brain multifocal area of septic emboli/infarct Sedated with diprivan and Fentanyl Tolerated CPAP 3 hrs Objective Vital Signs Vital Signs Date Time Temp Pulse Resp B/P Pulse Ox O2 Delivery O2 Flow Rate FiO2 11/25/16 18:00 87 11/25/16 16:10 96 40 11/25/16 16:00 98.9 84 16 104/56 97 11/25/16 16:00 84 11/25/16 16:00 40 11/25/16 14:00 92 11/25/16 13:00 97 11/25/16 12:00 94 11/25/16 12:00 98.2 94 19 117/56 92 11/25/16 12:00 40 11/25/16 11:00 104 11/25/16 10:37 100 40 11/25/16 10:00 109 11/25/16 09:00 91 11/25/16 08:30 90 11/25/16 08:24 94 Ventilator 11/25/16 08:24 95 40 11/25/16 08:24 40 11/25/16 08:00 98.0 82 16 106/53 92 11/25/16 08:00 40 11/25/16 08:00 82 11/25/16 06:00 93 11/25/16 04:10 95 40 11/25/16 04:00 99.9 87 16 105/53 92 11/25/16 04:00 87 11/25/16 04:00 50 11/25/16 02:00 104 11/25/16 01:45 96 40 11/25/16 00:00 99.7 109 21 139/61 93 11/25/16 00:00 109 11/25/16 00:00 50 11/24/16 22:00 109 11/24/16 20:16 96 40 11/24/16 20:00 109 11/24/16 20:00 99.2 96 24 126/60 99 Arterial Line 11/24/16 20:00 50 I/O 11/24/16 11/24/16 11/24/16 11/25/16 11/25/16 11/25/16 07:00 15:00 23:00 07:00 15:00 23:00 Intake Total 2112 ml 2222 ml 2209 ml 2485 ml 2282 ml Output Total 985 ml 1050 ml 735 ml 70 ml 870 ml Balance 1127 ml 1172 ml 1474 ml 2415 ml 1412 ml IV Total 1607 ml 1757 ml 1727 ml 2019 ml 1595 ml Tube Feeding 505 ml 465 ml 282 ml 466 ml 437 ml Other 200 ml 250 ml Output Urine Total 475 ml 600 ml 275 ml 450 ml Stool Total 200 ml 300 ml Chest Tube Drainage Total 310 ml 450 ml 160 ml 70 ml 420 ml # Bowel Movements 2 2 Result Diagram: 11/25/16 0508 11/25/16 0508 Objective Remarks GENERAL: Patient is 56 yo critically ill intubated , sedated and on pressors. SKIN: Warm and dry. HEAD: Normocephalic. EYES: No scleral icterus. No injection or drainage. NECK: Supple, trachea midline. No JVD or lymphadenopathy. CARDIOVASCULAR: Regular rate and rhythm without murmurs, gallops, or rubs. RESPIRATORY: Breath sounds equal bilaterally. No accessory muscle use. GASTROINTESTINAL: Abdomen soft, non-tender, nondistended. MUSCULOSKELETAL: No cyanosis, or edema. Neuro: Sedated and intubated A/P Assessment and Plan 1VDRF 2)Septic shock 3)Staph Aureus bacteremia 4)Empyema 6)Endocarditis involving AV 7)Leucocytosis 8)Cavitary pulm masses 2nd staph Aureus 9)Right hydroPTX PLAN: Continue with vent support keep sat >92% Bronchodilators, ICU vent bundle, on stress dose steroids- HC 100mg IV Q8 On PRVC/AC /.10, 40% Abx per ID ( On Ancef, Zosyn, Gent)monitor for signs of infections ( Fever, WBC ) Follow up on BAL results/cx CTS is following- no intervention at this time. Chest tube to suction Sedation with Diprivan and fentanyl palliative care following Emmett Bolton MD Nov 25, 2016 19:47
[2016-11-25] MEDS: VASOPRESSIN INJ 40 UNITS in DEXTROSE 5% IN WATER 100ML INJ 98 ML IV SCH ×2 (21:16)
[2016-11-26] VITALS (31 sets, daily range): BP systolic 97–165; BP diastolic 53–73; PULSE 75–118; RESP 13–29; TEMP 97.6–100.3; O2SAT 75–100
[2016-11-26] MEDS: ceFAZolin 2 GM PREMIX 50 ML IV SCH ×3 (01:08→18:12)
[2016-11-26] MEDS: PROPOFOL 1000 MG/100 ML INJ 100 ML IV SCH ×4 (02:22→18:17)
[2016-11-26] MEDS: CHLORHEXIDINE GLUCONATE 2 % 1 PACK (2 CLOTHS) TOP SCH (04:00)
[2016-11-26] MEDS: INSULIN ASPART SUPPLEMENTAL SCALE SQ SCH ×4 (04:27→23:00)
[2016-11-26] MEDS: DEXTROSE 5% IN WATE 1000ML INJ 1,000 ML IV SCH ×2 (05:19→06:25)
[2016-11-26 05:41] LABS: BICARBONATE 29.9 MEQ/L (21.0-32.0); MAGNESIUM 2.5 MG/DL (1.5-2.5); POTASSIUM 3.6 MEQ/L (3.5-5.1)
[2016-11-26 05:54] LABS: AUTOMATED NEUTROPHIL # 11.1 TH/MM3 (1.8-7.7); EOSINOPHIL % 0.1 % (0.0-4.0); HEMATOCRIT 22.1 % (39.0-51.0); HEMO FLAGS DIFF FINAL; LYMPH % 5.7 % (9.0-44.0); LYMPHOCYTE # 0.7 TH/MM3 (1.0-4.8); MEAN CELL VOLUME 95.6 FL (80.0-100.0); MEAN CORPUSCULAR HEMOGLOBIN 31.1 PG (27.0-34.0); MEAN CORPUSCULAR HGB CONC 32.6 % (32.0-36.0); MONO % 4.8 % (0.0-8.0); NEUT % 89.4 % (16.0-70.0); PLATELET COUNT 236 TH/MM3 (150-450); RED BLOOD COUNT 2.31 MIL/MM3 (4.50-5.90); RED CELL DISTRIBUTION WIDTH 15.4 % (11.6-17.2); WHITE BLOOD COUNT 12.4 TH/MM3 (4.0-11.0)
[2016-11-26] MEDS: FREE WATER G-TUBE SCH ×3 (06:24→22:00)
[2016-11-26] MEDS: METOCLOPRAMIDE HCL 10 MG/2 ML VIAL IV SCH ×3 (06:24→23:40)
[2016-11-26] MEDS: ARTIFICIAL TEARS OPTH SOLN 15 ML BTL EACH EYE SCH ×3 (06:25→23:39)
[2016-11-26] MEDS: SODIUM CHLORIDE 0.9% FLUSH 10 ML FLUSH IVF SCH (09:00)
[2016-11-26] MEDS: POLYETHYLENE GLYCOL 17 GM PKG PO SCH ×2 (09:00→23:39)
[2016-11-26] MEDS: DOCUSATE SODIUM 50 MG/SENNA 8.6 MG TAB PO SCH ×2 (09:00→21:00)
[2016-11-26] MEDS: SODIUM CHLORIDE 0.9% FLUSH 10 ML FLUSH IV FLUSH SCH ×2 (09:00→23:38)
[2016-11-26] MEDS: PANTOPRAZOLE SODIUM 40 MG VIAL IV SCH ×2 (09:28→23:38)
[2016-11-26] MEDS: HEPARIN SODIUM - SQ 10,000 UNITS/ML VIAL SQ SCH ×2 (09:28→23:39)
[2016-11-26] MEDS: LACTULOSE SYRUP 20 GM/30 ML CUP PO SCH (09:28)
[2016-11-26] MEDS: HYDROCORTISONE SOD SUCCINATE 100 MG VIAL IV PUSH SCH ×2 (09:28→23:38)
--- NOTE | 2016-11-26 09:28 | HHI.CCPN ---
Subjective Remarks/Hospital Course 56-year-old male is brought to the emergency department by EMS for evaluation of generalized weakness, confusion for about 2 weeks, and also increasing shortness of breath. His oxygen saturation was 88% on room air. EMS administered breathing treatments and Solu-Medrol 125 mg 1 and placed him on nasal cannula. Patient states that he had been sick for almost 10 days, but he is a poor historian. He had a productive cough, but reports no hematemesis or weight loss. He states that it was his neighbor who made him called EMS. He has no past medical history and last time had seen a doctor was about 15 years ago. He denies any fevers but reports some night sweats and chills. He was tachycardic with a heart rate of 115 bpm, had severe leukocytosis with a white count of 35,000 with 91% neutrophils. CMP shows hyponatremia with a sodium of 126. Lactic acid is 2.4. His Chest x-ray shows large 7.7 x 7.8 cm cavitary right midlung lesion with associated right-sided pleural effusion. Subcentimeter left mid lung pulmonary nodules. Patient received 1 L normal saline bolus and Zosyn 4.5 g and Zithromax 500 mg IV and was placed on TB/ respiratory isolation. He has been being in long-term 2 years ago increasing his risk of tuberculosis. CT pulmonary angiogram negative for PE but showed multiple cavitary lesions within both lungs with the largest measuring 9.5 cm in the right upper lobe. Moderate size right pleural effusion. I evaluated the patient in the emergency department. Patient appears critically ill in moderate distress mildly tachypneic, sweating. I performed a bedside ultrasound which showed a right effusion which is large. The thoracentesis was performed and 1 L of cloudy dark pleural fluid was removed. Patient will be continued on Zosyn and Levaquin and vancomycin. ID consulted and I discussed with Dr. Steele-she recommended no empiric treatments for TB. 11/14/16: Patient seen and examined complaints of severe epigastric and periumbilical abdominal pain. Patient remains oriented to person. His white count is slightly improved from 35,000-28,9000. Na improved to 136. I have ordered a STAT CT abd/pelvis with IV contrast. Chest x-ray shows reaccumulation of right pleural effusion-fluid chemistries are pending but cell count indicates at least a parapneumonic effusion and patient will need a pigtail chest tube 11/15: Patient pulled his right-sided pigtail catheter out overnight last night. Currently nasal cannula in no acute distress. Afebrile. Continues to have a leukocytosis. 11/16: Currently on room air. Hold out his IVs reportedly overnight last night. Requesting diet. Awake and alert and following commands. Subjective 11/17: Intubated yesterday due to acute hypercapnic respiratory failure. Hypoxic post intubation requiring right chest tube placement, bronchoscopy and Flolan. Bronchoscopy revealed thick mucous plugging at bilateral right and left mainstem which were clear. Improved oxygenation over the past 12 hours. Afebrile. 11/18 Patient remains sedated with Diprivan, Fentanyl and intubated. On Vasopressin and Neosyn 120 mics. 11/19 Patient is sedated with Diprivan, Fentanyl and intubated. Afebrile. Off all pressors. Afebrile. WBC is trending down 30 today from 50. 11/20: Remains severely septic and encephalopathic even though weaned off all pressors. White count still elevated but trending down. Became extremely tachycardic and tachypneic on lowering sedation. We'll check MRI of the brain to rule out embolic infarct. Family at the bedside updated 11/21 Remains heavily sedated, remains encephalopathic. MRI brain is pending. Family is at bedside. Remains critically with resp failure severe from endocarditis, now unable to wean off the ventilator due to severe metabolic encephalopathy 11/22 No events overnight. Sedated with Diprivan, fentanyl and intubated. Afebrile. MRI brain yesterday showed ischemic changes likely related to septic emboli. 11/23: Patient remains encephalopathic, severe hyponatremia possible contributing , Na is 157 today. Currently on Precedex and fentanyl. CXR shows increasing L effusion 11/24: Patient more awake today. Follows Commands but did not tolerate spontaneous breathing trials. Had left pigtail chest tube placed yesterday 1.6 L transudative fluid removal since placement 11/25 Patient is sedated with Diprivan, Fentanyl and intubated. T:99.9 11/26 No events overnight. Sedated and intubated. Patient was on CPAP x 3 hrs yesterday then became tachypneic. Objective Vital Signs Date Time Temp Pulse Resp B/P Pulse Ox O2 Delivery O2 Flow Rate FiO2 11/26/16 07:28 98 40 11/26/16 06:00 75 11/26/16 04:00 97.6 20 122/56 11/25/16 08:24 Ventilator Intake and Output 11/25/16 11/25/16 11/26/16 08:00 16:00 00:00 Intake Total 2485 ml 2282 ml 1729 ml Output Total 70 ml 870 ml 510 ml Balance 2415 ml 1412 ml 1219 ml Result Diagram: 11/26/16 0440 11/26/16 0440 Other Results Laboratory Tests Test 11/25/16 11/26/16 11:15 04:40 Stool C. difficile Toxin (PCR) NEGATIVE Stl C. difficile Toxin PRESUMPTIVE Epiderm 027 NEGATIVE White Blood Count 12.4 TH/MM3 Red Blood Count 2.31 MIL/MM3 Hemoglobin 7.2 GM/DL Hematocrit 22.1 % Mean Corpuscular Volume 95.6 FL Mean Corpuscular Hemoglobin 31.1 PG Mean Corpuscular Hemoglobin 32.6 % Concent Red Cell Distribution Width 15.4 % Platelet Count 236 TH/MM3 Mean Platelet Volume 8.6 FL Neutrophils (%) (Auto) 89.4 % Lymphocytes (%) (Auto) 5.7 % Monocytes (%) (Auto) 4.8 % Eosinophils (%) (Auto) 0.1 % Basophils (%) (Auto) 0.0 % Neutrophils # (Auto) 11.1 TH/MM3 Lymphocytes # (Auto) 0.7 TH/MM3 Monocytes # (Auto) 0.6 TH/MM3 Eosinophils # (Auto) 0.0 TH/MM3 Basophils # (Auto) 0.0 TH/MM3 CBC Comment DIFF FINAL Differential Comment Sodium Level 147 MEQ/L Potassium Level 3.6 MEQ/L Chloride Level 110 MEQ/L Carbon Dioxide Level 29.9 MEQ/L Anion Gap 7 MEQ/L Blood Urea Nitrogen 41 MG/DL Creatinine 1.22 MG/DL Estimat Glomerular Filtration 62 ML/MIN Rate Random Glucose 134 MG/DL Calcium Level 7.9 MG/DL Phosphorus Level 3.6 MG/DL Magnesium Level 2.5 MG/DL Imaging Last Impressions Chest X-Ray 11/25/16 0600 Signed Impressions: Service Date/Time: Friday, November 25, 2016 04:41 - CONCLUSION: Mild increased interstitial vascular prominence. Stable right basilar loculated pneumothorax. Stable right lung cavitary lesion. Support devices remain in good position. Jose A Escobedo MD Brain MRI 11/21/16 Signed Impressions: Service Date/Time: November 12:33 - CONCLUSION: Multifocal areas of restricted diffusion primarily in the periventricular and subcortical white matter bilaterally but also cortically based in the right frontal lobe. Findings likely represent ischemic change likely related to septic emboli given the patient's clinical history. No abscess or enhancing lesion is visualized. Agustin Bonner MD Head CT 11/17/16599 Signed Impressions: Service Date/Time: Thursday, November 17, 2016 10:39 - CONCLUSION: No significant change has occurred. Deven Urrutia MD Chest CT 11/16/16 Signed Impressions: Service Date/Time: Wednesday, November 16, 2016 20:36 - CONCLUSION: 1. New right chest tube in the posterior superior right pleural space. There continues to be a moderate right pleural effusion primarily seen at the base. Some degree of loculation may be present inferiorly. The effusion does not layer posteriorly. There are scattered punctate areas of air within the pleural space inferiorly on the right. There is a solitary small area of air within the mild left pleural effusion. 2. Numerous irregular masses seen throughout both lungs some which are cavitary. These are nonspecific. Inflammatory masses needs be suspected. The multiplicity raises possibility of septic emboli. Agustin Price MD Abdomen X-Ray 11/15/16599 Signed Impressions: Service Date/Time: Tuesday, November 15, 2016 03:07 - CONCLUSION: Probable mild ileus involving loops of bowel on the left side. Reba Banerjee MD Abdomen/Pelvis CT 11/14/16 Signed Impressions: Service Date/Time: October 09:55 - CONCLUSION: 1. Multiple loops of fluid-filled small bowel which are larger in caliber in comparison to yesterday's examination although not enlarged by size criteria. This may reflect mild enteritis versus developing mild adynamic ileus. 2. Persistent luminal narrowing at the gastroduodenal junction without definite focal mass. This is of uncertain clinical significance and likely reflects gastric contraction. Gastric mass/metastatic disease is not very likely based on appearance although it cannot be excluded. 3. 2 cm ill-defined hypodense lesion in the left renal mid pole with indeterminate density. Differential considerations include complex cyst versus metastatic disease in this patient with apparent diffuse metastatic disease in the chest. 4. Redemonstration of multiple bilateral cavitary masses at the lung bases with loculated right pleural effusion. Eledr Long MD CT Angiography 11/13/16 1328 Signed Impressions: Service Date/Time: Sunday, November 13, 2016 15:50 - CONCLUSION: 1. Multiple cavitary lesions within both lungs with the largest measuring 9.5 cm in the right upper lobe. Differential diagnosis includes infectious and neoplastic etiologies. 2. Moderate sized right pleural effusion with adjacent compressive atelectasis and/or infiltrate. 3. Cardiomegaly and coronary artery calcifications. 4. Subcarinal mediastinal lymphadenopathy. 5. Degenerative changes throughout the thoracic spine. Jed Ponce MD Objective Remarks GENERAL: 56-year-old male, critically ill currently orotracheally intubated SKIN: Warm and dry. Scattered skin lesions erythematous predominantly left lower extremity HEAD: Normocephalic and atraumatic. EYES: No injection, drainage. Pupils equally round and reactive around 3 mm bilaterally 2 mm. ENT: No nasal drainage noted. Oropharynx is clear. NECK: Supple. No JVD or thyromegaly or lymphadenopathy. Left IJ is clean dry and intact CARDIOVASCULAR: Tachycardic, RR. S1, S2. No S4. Aortic regurgitation murmur not appreciated. RESPIRATORY: Diminished breath sounds bilaterally. Mild expiratory wheezing and few crackles. Right chest tube 170 ml output, L pigtail 210 ml output in 24 hours GASTROINTESTINAL: Abdomen is soft, distended no rebound or guarding on examination. Hypoactive bowel sounds are appreciated MUSCULOSKELETAL: Mild swelling of bilateral ankles. Multiple erythematous raised lesions on bilateral lower extremity predominantly left lower leg NEUROLOGICAL: Precedex and fentanyl ventilator synchrony. Awake, Moving all 4 extremity spontaneously and follows commands Date of Insertion: Nov 16, 2016 Line: Central Venous Catheter Side: Left Location: Internal, Jugular A/P Assessment and Plan NEURO/PSYCH: Metabolic encephalopathy Septic brain emboli On Diprivan and Fentanyl infusion for sedation/analgesia while intubated. Goal of RASS -2. Daily sedation vacation. steadily improving neuro exam EEG 11/24: Slowing without any epileptic activity. MRI brain 11/21: Ischemic changes likely related to septic emboli. Neuro consulted Dr. Hernandez CT head 11/17 revealed no acute intracranial findings currently no signs of gross embolic events. On Thiamine/MVI/Folic acid RESP: Bilateral cavitary lung lesions/most likely cavitating pneumonia from staph aureus Acute respiratory failure Large right loculated pleural effusion/empyema Left pleural effusion PRVC 16/600/1.05/23/39. Continue with vent support keep sat >90%. Duo nebs every 4 hours with albuterol nebs every 2 hours. Vent bundle. Daily SBT, if no significant progress in weaning trials then he might need trach. Intubated on 11/16 Right-sided chest tube #28 [place]- monitor CT drainage( Drained 620 ml in 24 hours) Left-sided chest tube #10 [place]- placed 11/24/16-drained 60 ml in 24 hrs - Right thoracentesis with 1 L cloudy yellow fluid removed, fluid cell studies WBC 2,600, - Patient status post pigtail catheter placement 11/14, 445 cc prior pulled out 11/15. Evaluated by Dr. Samuels/CT surgery. Per his recommendations, No indication for decortication at this time CV: Aortic valve endocarditis/large vegetation Sinus tachycardia Atrial fibrillation with RVR early normal sinus rhythm Elevated troponin - likely rate dependent Monitor HR and BP keep MAP>65mmHg - Stress dose steroids-Hydrocortisone 50mg IV Q12 - 2-D echocardiogram revealed EF 55-60%. Moderate AR. CHANDNI revealed 17 mm x 17 millimeter mobile mass on aortic valve. limited echo 11/22 Persistent vegetation - CT surgery. Recommendations no intervention at this time GI: Hypoalbuminemia Continue tube feeds with Glucerna 1.5@ 55 cc an hour. IV Protonix for GI prophylaxis. Chinyere-Colace and MiraLAX for bowel regimen Reglan for bowel motility - CT of the abdomen pelvis with IV contrast revealed possible ileus., Gastric contraction at gastric duodenal junction. 2 mm renal cyst. - KUB 11/15 revealed improving mild ileus. GI is following. : Monitor renal function, I/O's, electrolytes replacement per protocol. D5W 100ml/hr, Free water 250ml Q8 monitor sodium level ( trending down) ID: Severe sepsis New fever Multilobar cavitating pneumonia secondary staph aureus Staph aureus empyema - Continue with abx per ID ( IV Ancef, Gent) monitor for signs of infections ( Fever, WBC) WBC is trending down - Follow up on blood cxs from 11/24, fluid cxs from 11/23, sputum/urine cx: All NGTD Pertinent cultures 11/13 - blood cultures 2 - staph aureus 11/13 and 11/14- pleural fluid- staph aureus 11/14- sputum- staph aureus 11/15 - blood cultures 2 - pending 11/16 - Bronch samples: Staph Aureus 11/16 Sputum: Staph Aureus HEME: Leukocytosis Normocytic anemia - Monitor CBC, CMP, coags ENDO: SSI with accuchecks for glycemic control TSH 0.6. PROPH: - Bilateral lower extremity SCDs. Heparin SQ, IV Protonix for prophylaxis LINES: - Left IJ CVL placed 11/16 Palliative care is following Care time 30 minutes excluding procedures. Noam Calhoun MD Nov 26, 2016 09:28
[2016-11-26] MEDS: FOLIC ACID 1 MG TAB PO SCH (09:29)
[2016-11-26] MEDS: MULTIVITAMIN TAB PO SCH (09:29)
[2016-11-26] MEDS: CHLORHEXIDINE 0.12% (ORAL KIT) 15 ML CUP MT SCH ×2 (09:30→23:37)
[2016-11-26] MEDS: THIAMINE HCL 100 MG TAB PO SCH (09:30)
[2016-11-26 10:10] LABS: BLOOD GAS BASE EXCESS 2.6 mmol/L (-2-2); BLOOD GAS CARBOXYHEMOGLOBIN 1.5 % (0-4); BLOOD GAS HCO3 28 mmol/L (22-26); BLOOD GAS METHEMOGLOBIN 1.1 % (0-2); BLOOD GAS O2 HGB SATURATION 95 % (90-100); BLOOD GAS OXYGEN CONTENT 17.1 Vol % (12.0-20.0); BLOOD GAS PCO2 51 mmHg (38-42); BLOOD GAS PO2 106 mmHg (61-120); BLOOD GAS TOTAL HGB 12.8 G/DL (12.0-16.0); TEMP CORR TO 98.6
[2016-11-26 10:11] LABS: CRITICAL VALUE YES
[2016-11-26 10:12] LABS: FIO2 40 %; OXYGEN DEVICE VENTILATOR; VENT SETTINGS PRVC 16/600/1.0/+5
[2016-11-26 10:13] LABS: DRAW SITE LT RADIAL; NUMBER OF ARTERIAL PUNCTURES 1; STAT NO; ULNAR PULSE PRESENT
[2016-11-26] MEDS: fentaNYL DRIP 250 ML IV SCH ×2 (11:39→23:45)
[2016-11-26] MEDS: GENTAMICIN/SOD CHL 80 MG/100 ML IV SCH (12:30)
[2016-11-26 13:01] LABS: BODY FLUID LDH 78 U/L (()); BODY FLUID LDH SOURCE PLEURAL (())
--- NOTE | 2016-11-26 13:33 | HHI.IDPN ---
Note Infectious Disease Note Patient intubated. On the vent. Alert and responsive. calm. Watching TV. Failed CPAP. Afebrile x 24 hours. chest tube draining. D/W RN. Large vegetation on AV and moderate aortic regurg on CHANDNI. Culture of blood 11/13, 11/15, 11/16. - Staph aureus. 11/19 no growth. Culture of pleural fluid 11/14 - staph aureus. Presented to the emergency department with a 2-week history of weakness. He was noted to have low oxygen saturation. He reported that he had productive cough over the past couple of weeks and was experiencing shortness of breath. ALLERGIES NO KNOWN DRUG ALLERGIES. ANTIBIOTICS: Gentamycin. Ancef. OBJECTIVE: Vital Signs Date Time Temp Pulse Resp B/P Pulse Ox O2 Delivery O2 Flow Rate FiO2 11/26/16 10:57 100 40 11/26/16 09:00 90 11/26/16 09:00 90 16 106/53 96 11/26/16 08:30 85 17 106/56 98 11/26/16 08:30 85 11/26/16 08:00 82 11/26/16 08:00 97.6 82 17 102/55 94 11/26/16 07:30 86 16 106/55 97 11/26/16 07:28 98 40 11/26/16 07:00 75 16 97/55 99 11/26/16 06:00 75 11/26/16 04:05 93 40 11/26/16 04:00 50 11/26/16 04:00 93 11/26/16 04:00 97.6 93 20 122/56 95 11/26/16 02:00 80 11/26/16 01:05 93 40 11/26/16 00:00 50 11/26/16 00:00 87 11/26/16 00:00 97.8 82 19 103/53 96 11/25/16 22:03 95 40 11/25/16 22:00 85 11/25/16 20:00 92 11/25/16 20:00 97.6 92 16 115/58 99 11/25/16 20:00 50 11/25/16 19:15 96 40 11/25/16 18:00 87 11/25/16 16:10 96 40 11/25/16 16:00 98.9 84 16 104/56 97 11/25/16 16:00 84 11/25/16 16:00 40 11/25/16 14:00 92 11/25/16 11/25/16 11/26/16 15:00 23:00 07:00 Intake Total 2282 ml 1729 ml 1113 ml Output Total 870 ml 510 ml 350 ml Balance 1412 ml 1219 ml 763 ml IV Total 1595 ml 977 ml 761 ml Tube Feeding 437 ml 502 ml 352 ml Other 250 ml 250 ml 0 ml Output Urine Total 450 ml 300 ml 200 ml Stool Total 100 ml Chest Tube Drainage Total 420 ml 110 ml 150 ml # Bowel Movements 2 0 Laboratory Tests Test 11/25/16 11/26/16 05:08 04:40 White Blood Count 15.5 TH/MM3 12.4 TH/MM3 Red Blood Count 2.33 MIL/MM3 2.31 MIL/MM3 Hemoglobin 7.1 GM/DL 7.2 GM/DL Hematocrit 22.6 % 22.1 % Mean Corpuscular Volume 96.8 FL 95.6 FL Mean Corpuscular Hemoglobin 30.5 PG 31.1 PG Mean Corpuscular Hemoglobin 31.5 % 32.6 % Concent Red Cell Distribution Width 15.0 % 15.4 % Platelet Count 223 TH/MM3 236 TH/MM3 Mean Platelet Volume 8.1 FL 8.6 FL Neutrophils (%) (Auto) 88.4 % 89.4 % Lymphocytes (%) (Auto) 6.7 % 5.7 % Monocytes (%) (Auto) 4.8 % 4.8 % Eosinophils (%) (Auto) 0.0 % 0.1 % Basophils (%) (Auto) 0.1 % 0.0 % Neutrophils # (Auto) 13.7 TH/MM3 11.1 TH/MM3 Lymphocytes # (Auto) 1.0 TH/MM3 0.7 TH/MM3 Monocytes # (Auto) 0.7 TH/MM3 0.6 TH/MM3 Eosinophils # (Auto) 0.0 TH/MM3 0.0 TH/MM3 Basophils # (Auto) 0.0 TH/MM3 0.0 TH/MM3 CBC Comment DIFF FINAL DIFF FINAL Differential Comment Laboratory Tests Test 11/24/16 11/25/16 11/26/16 13:55 05:08 04:40 Sodium Level 154 MEQ/L 150 MEQ/L 147 MEQ/L Potassium Level 3.7 MEQ/L 3.6 MEQ/L Chloride Level 113 MEQ/L 110 MEQ/L Carbon Dioxide Level 31.6 MEQ/L 29.9 MEQ/L Anion Gap 5 MEQ/L 7 MEQ/L Blood Urea Nitrogen 36 MG/DL 41 MG/DL Creatinine 1.03 MG/DL 1.22 MG/DL Estimat Glomerular Filtration 75 ML/MIN 62 ML/MIN Rate Random Glucose 181 MG/DL 134 MG/DL Calcium Level 7.7 MG/DL 7.9 MG/DL Magnesium Level 2.5 MG/DL 2.5 MG/DL Total Bilirubin 0.4 MG/DL Aspartate Amino Transf 25 U/L (AST/SGOT) Alanine Aminotransferase 26 U/L (ALT/SGPT) Alkaline Phosphatase 83 U/L Total Protein 5.9 GM/DL Albumin 1.3 GM/DL Phosphorus Level 3.6 MG/DL Microbiology Date/Time Procedure Status Source Growth 11/23/16 16:45 Gram Stain - Final Complete Fluid Pleural Fluid 11/23/16 16:45 Body Fluid Culture - Final Complete Fluid Pleural Fluid NO GROWTH IN 72 HRS.--AEROBICALLY OR ... 11/23/16 16:45 Acid Fast Stain - Final Resulted Fluid Pleural Fluid NO ACID FAST BACILLI SEEN 11/23/16 16:45 Mycobacterial Culture Resulted Fluid Pleural Fluid Pending 11/23/16 16:45 Fungal Smear - Final Resulted Fluid Pleural Fluid NO FUNGAL ELEMENTS SEEN. 11/23/16 16:45 Fungal Culture Resulted Fluid Pleural Fluid Pending 11/24/16 14:10 Aerobic Blood Culture - Preliminary Resulted Blood Peripheral NO GROWTH IN 2 DAYS 11/24/16 14:10 Anaerobic Blood Culture - Preliminary Resulted Blood Peripheral NO GROWTH IN 2 DAYS 11/24/16 14:15 Aerobic Blood Culture - Preliminary Resulted Blood Peripheral NO GROWTH IN 2 DAYS 11/24/16 14:15 Anaerobic Blood Culture - Preliminary Resulted Blood Peripheral NO GROWTH IN 2 DAYS 11/25/16 05:15 Urine Culture - Preliminary Resulted Urine Catheterized Urine NO GROWTH IN 24 HOURS. 11/25/16 11:20 Gram Stain Christopher Batch Sputum Endotracheal Pending 11/25/16 11:20 Sputum Culture Christopher Batch Sputum Endotracheal Pending IMAGING: Chest X-Ray 11/25/16 0600 Signed Impressions: Service Date/Time: Friday, November 25, 2016 04:41 - CONCLUSION: Mild increased interstitial vascular prominence. Stable right basilar loculated pneumothorax. Stable right lung cavitary lesion. Support devices remain in good position. Jose A F. Gregg, MD Chest X-Ray 11/24/16 Signed Impressions: Service Date/Time: Thursday, November 24, 2016 10:31 - CONCLUSION: Similar to previous study. The cavitary lesion right lung is stable. Right-sided chest remains in good position. Residual air right lower lateral costophrenic angle. Tubes and catheters in good position. Sawyer Robertson MD Chest X-Ray 11/23/16599 Signed Impressions: Service Date/Time: Wednesday, November 23, 2016 03:50 - CONCLUSION: 1. Stable appearance of the chest of a 5.7 cm cavitary lesion in the right upper lobe, left basilar consolidation/effusion and haziness over the left chest possibly representing a posterior layering effusion. 2. Peripherally positioned nodular densities in the left mid chest. These are all stable. 3. Right-sided thoracostomy tube without effusion. There may be a small loculated pneumothorax laterally in the right base, however. 4. Cardiomegaly David Rojas MD Brain MRI 11/21/16 Signed Impressions: Service Date/Time: November 12:33 - CONCLUSION: Multifocal areas of restricted diffusion primarily in the periventricular and subcortical white matter bilaterally but also cortically based in the right frontal lobe. Findings likely represent ischemic change likely related to septic emboli given the patient's clinical history. No abscess or enhancing lesion is visualized. Agustin Bonner MD Head CT 11/17/16599 Signed Impressions: Service Date/Time: Thursday, November 17, 2016 10:39 - CONCLUSION: No significant change has occurred. Deven Urrutia MD Chest X-Ray 11/17/16599 Signed Impressions: Service Date/Time: Thursday, November 17, 2016 03:36 - CONCLUSION: Diffuse airspace disease a large cavity in the right midlung zone is unchanged. Tubes and catheter are in good position. Sawyer Robertson MD Chest CT 11/16/16 0000 Signed Impressions: Service Date/Time: Wednesday, November 16, 2016 20:36 - CONCLUSION: 1. New right chest tube in the posterior superior right pleural space. There continues to be a moderate right pleural effusion primarily seen at the base. Some degree of loculation may be present inferiorly. The effusion does not layer posteriorly. There are scattered punctate areas of air within the pleural space inferiorly on the right. There is a solitary small area of air within the mild left pleural effusion. 2. Numerous irregular masses seen throughout both lungs some which are cavitary. These are nonspecific. Inflammatory masses needs be suspected. The multiplicity raises possibility of septic emboli. Agustin Price MD Abdomen X-Ray 11/15/16 0600 Signed Impressions: Service Date/Time: Tuesday, November 15, 2016 03:07 - CONCLUSION: Probable mild ileus involving loops of bowel on the left side. Reba Banerjee MD Abdomen/Pelvis CT 11/14/16 0000 Signed Impressions: Service Date/Time: October 09:55 - CONCLUSION: 1. Multiple loops of fluid-filled small bowel which are larger in caliber in comparison to yesterday's examination although not enlarged by size criteria. This may reflect mild enteritis versus developing mild adynamic ileus. 2. Persistent luminal narrowing at the gastroduodenal junction without definite focal mass. This is of uncertain clinical significance and likely reflects gastric contraction. Gastric mass/metastatic disease is not very likely based on appearance although it cannot be excluded. 3. 2 cm ill-defined hypodense lesion in the left renal mid pole with indeterminate density. Differential considerations include complex cyst versus metastatic disease in this patient with apparent diffuse metastatic disease in the chest. 4. Redemonstration of multiple bilateral cavitary masses at the lung bases with loculated right pleural effusion. Elder Long MD CT Angiography 11/13/16 1328 Signed Impressions: Service Date/Time: Sunday, November 13, 2016 15:50 - CONCLUSION: 1. Multiple cavitary lesions within both lungs with the largest measuring 9.5 cm in the right upper lobe. Differential diagnosis includes infectious and neoplastic etiologies. 2. Moderate sized right pleural effusion with adjacent compressive atelectasis and/or infiltrate. 3. Cardiomegaly and coronary artery calcifications. 4. Subcarinal mediastinal lymphadenopathy. 5. Degenerative changes throughout the thoracic spine. Jed Ponce MD PHYSICAL EXAMINATION GENERAL: On the vent. HEENT: No icterus. Oropharynx moist mucosa without lesions. NECK: Supple without adenopathy. LUNGS: Coarse bilateral rhonchi. HEART: Normal S1-S2 without audible murmurs, rubs or gallops. ABDOMEN: Bowel sounds present, soft. Distended. Non tender. EXTREMITIES: No clubbing or cyanosis or edema. SKIN: Punctate erythematous lesions at the lower extremities including the left tibia, left foot and right foot which blanches with palpation. NEURO: Sedated. Calm. PSYCH: unable to assess. IMPRESSION 1. Sepsis. Endocarditis Aortic valve Staph aureus (MSSA). 2. Cavitary pulmonary lesions. 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 3. Pneumonia/parapneumonic effusion- MSSA. 4. Skin lesions which potentially could be embolic. 5. Leukocytosis secondary to infection. WBC lower. 6. Fever secondary to infection. ? line related at this point. RECOMMENDATIONS 1. Continue IV Ancef. 2. Stop Gentamycin. Renal indices worsening. 3. Monitor blood culture. 4. Monitor white blood cell count. Decreasing. 5. Monitor temp. 6. Monitor sputum culture. Slava Garcia MD Nov 26, 2016 13:33
--- NOTE | 2016-11-26 16:17 | HHI.HCPN ---
Reason for visit a. To assist with evaluation and management of symptoms including: dyspnea b. To assist medical decision maker(s) with: better understanding of current medical conditions; weighing benefits/burdens of medical treatment options; making medical treatment decisions. . Subjective/Interval History Pt on my visit was alert, but restless and uncomfortable. He is undergoing CPAP trials, due to restlessness and discomfort, really could not review goals of care with him. Family/friend interactions Met with pt's Mother, Sister and Friend. Met with them and review course of hospitalization and medical decisions to be made. Understand pt has cardiac vegetation and that without surgery, likely will not clear infection, and overall poor prognosis. At this point in time, not a surgical candidate. Reviewed thus far he is unable to be weaned off the ventilator and likely will need decision on trach and peg by this Friday. Reviewed what peg and trach means, and his overall prognosis, if he is able to leave and survive hospitalization, he is as risk for multiple hospitalization and visits. Reviewed code status. Pt 's sister was very tearful. Mother is calm. Family sees the dire predicament, but pt is alert and responsive and young. Mother does not have a final decision, and would like more time to discuss, but by Friday knows we will need a decision. The difficulty with the family is he is young and so responsive. Not ready to opt for comfort measures only. Likely will opt for peg and Trach. Endorse a continue full code. Advance Directives Living Will: Never completed Health Care Surrogate: Copy in medical record Durable Power of Cook Mess: Never completed Advance Directive Specifics Health Care Surrogate(s): The patient lacks capacity for decision-making, and it is uncertain whether he will regain that capacity. Initially, he had named his landlord Kerrie Correa as healthcare surrogate on 11/14/16, but she makes it very clear by telephone on 11/18/16 that "since there is family around, I do not want to be the decision-maker for him in any way." I spoke with the patient's 21-year-old son Alexei Mohan [phone] in [place] by telephone, and he reports that he also does not want to be involved in the decision making; "he has not had any impact or played any role in my life, so that would not be appropriate for me to make decisions for him." Thus, the patient's mother Nellie Ying is his healthcare proxy decision-maker. Objective Vital Signs Date Time Temp Pulse Resp B/P Pulse Ox O2 Delivery O2 Flow Rate FiO2 11/26/16 15:08 93 40 11/26/16 13:00 97 20 119/58 75 11/26/16 13:00 97 11/26/16 12:15 40 11/26/16 12:00 98.3 118 27 165/73 79 11/26/16 12:00 118 11/26/16 11:00 107 11/26/16 11:00 107 29 138/64 100 11/26/16 10:57 100 40 11/26/16 10:20 40 11/26/16 10:00 92 11/26/16 10:00 92 20 119/56 97 11/26/16 09:00 90 11/26/16 09:00 90 16 106/53 96 11/26/16 08:30 85 17 106/56 98 11/26/16 08:30 85 11/26/16 08:00 82 11/26/16 08:00 97.6 82 17 102/55 94 11/26/16 07:30 86 16 106/55 97 11/26/16 07:28 98 40 11/26/16 07:00 75 16 97/55 99 11/26/16 06:00 75 11/26/16 04:05 93 40 11/26/16 04:00 50 11/26/16 04:00 93 11/26/16 04:00 97.6 93 20 122/56 95 11/26/16 02:00 80 11/26/16 01:05 93 40 11/26/16 00:00 50 11/26/16 00:00 87 11/26/16 00:00 97.8 82 19 103/53 96 11/25/16 22:03 95 40 11/25/16 22:00 85 11/25/16 20:00 92 11/25/16 20:00 97.6 92 16 115/58 99 11/25/16 20:00 50 11/25/16 19:15 96 40 11/25/16 18:00 87 11/25/16 16:10 96 40 11/25/16 16:00 98.9 84 16 104/56 97 11/25/16 16:00 84 11/25/16 16:00 40 Intake & Output 11/26/16 11/26/16 07:00 19:00 Intake Total 2842 ml 2347 ml Output Total 860 ml 1000 ml Balance 1982 ml 1347 ml IV Total 1738 ml 1382 ml Tube Feeding 854 ml 615 ml Other 250 ml 350 ml Output Urine Total 500 ml 400 ml Stool Total 100 ml 600 ml Chest Tube Drainage Total 260 ml # Bowel Movements 0 Physical Exam CONSTITUTIONAL/GENERAL: This is an adequately nourished patient, on the ventilator in [place]. TUBES/LINES/DRAINS: Central line, endotracheal tube, Santana catheter SKIN: No jaundice, rashes. He has multiple small, healing punctures and abrasions about his feet and ankles (reportedly from walking barefoot). CARDIOVASCULAR: Regular rate and rhythm with grade 2 systolic murmur. No JVD. Peripheral pulses symmetric. RESPIRATORY/CHEST: Symmetric, unlabored respirations. Scattered rhonchi GASTROINTESTINAL: Abdomen soft, nondistended. No hepato-splenomegaly, or palpable masses. No guarding. Bowel sounds present. MUSCULOSKELETAL: Extremities without clubbing, cyanosis, or edema. No joint tenderness or effusion noted. No mottling or clubbing. He has multiple small punctures and abrasions about his feet and ankles (reportedly from walking barefoot). NEUROLOGICAL: Opens eyes, tracks, follows some simple commands. PSYCHIATRIC: Seems restless at times, undergoin cpap trials. . Diagnostic Tests Laboratory Laboratory Tests Test 11/23/16 11/23/16 11/24/16 11/25/16 16:45 21:07 13:55 05:08 Pleural Fluid pH 9.0 Pleural Fluid WBC 191 /MM3 (0-10) Pleural Fluid RBC 82 /MM3 (0-0) Pleural Fluid Neutrophils 31 % Pleural Fluid Lymphocytes 47 % Pleural Fluid Monocytes 7 % Pleural Fluid Plasma Cells 6 % Pleural Fluid Mesothelial 9 % Cells Body Fluid LDH Source PLEURAL (()) Body Fluid Lactate 78 U/L (()) Dehydrogenase Body Fluid Amylase Source PLEURAL (()) Body Fluid Amylase 25 U/L (()) Sodium Level 154 MEQ/L 154 MEQ/L 150 MEQ/L (136-145) (136-145) (136-145) White Blood Count 15.5 TH/MM3 (4.0-11.0) Red Blood Count 2.33 MIL/MM3 (4.50-5.90) Hemoglobin 7.1 GM/DL (13.0-17.0) Hematocrit 22.6 % (39.0-51.0) Mean Corpuscular Volume 96.8 FL (80.0-100.0) Mean Corpuscular Hemoglobin 30.5 PG (27.0-34.0) Mean Corpuscular Hemoglobin 31.5 % Concent (32.0-36.0) Red Cell Distribution Width 15.0 % (11.6-17.2) Platelet Count 223 TH/MM3 (150-450) Mean Platelet Volume 8.1 FL (7.0-11.0) Neutrophils (%) (Auto) 88.4 % (16.0-70.0) Lymphocytes (%) (Auto) 6.7 % (9.0-44.0) Monocytes (%) (Auto) 4.8 % (0.0-8.0) Eosinophils (%) (Auto) 0.0 % (0.0-4.0) Basophils (%) (Auto) 0.1 % (0.0-2.0) Neutrophils # (Auto) 13.7 TH/MM3 (1.8-7.7) Lymphocytes # (Auto) 1.0 TH/MM3 (1.0-4.8) Monocytes # (Auto) 0.7 TH/MM3 (0-0.9) Eosinophils # (Auto) 0.0 TH/MM3 (0-0.4) Basophils # (Auto) 0.0 TH/MM3 (0-0.2) CBC Comment DIFF FINAL Differential Comment Potassium Level 3.7 MEQ/L (3.5-5.1) Chloride Level 113 MEQ/L (98-107) Carbon Dioxide Level 31.6 MEQ/L (21.0-32.0) Anion Gap 5 MEQ/L (5-15) Blood Urea Nitrogen 36 MG/DL (7-18) Creatinine 1.03 MG/DL (0.60-1.30) Estimat Glomerular Filtration 75 ML/MIN (>89) Rate Random Glucose 181 MG/DL (74-106) Calcium Level 7.7 MG/DL (8.5-10.1) Magnesium Level 2.5 MG/DL (1.5-2.5) Total Bilirubin 0.4 MG/DL (0.2-1.0) Aspartate Amino Transf 25 U/L (15-37) (AST/SGOT) Alanine Aminotransferase 26 U/L (12-78) (ALT/SGPT) Alkaline Phosphatase 83 U/L (45-117) Total Protein 5.9 GM/DL (6.4-8.2) Albumin 1.3 GM/DL (3.4-5.0) Test 11/25/16 11/26/16 11/26/16 11:15 04:40 09:55 Stool C. difficile Toxin (PCR) NEGATIVE (NEGATIVE) Stl C. difficile Toxin PRESUMPTIVE Epiderm 027 NEGATIVE (NEGATIVE) White Blood Count 12.4 TH/MM3 (4.0-11.0) Red Blood Count 2.31 MIL/MM3 (4.50-5.90) Hemoglobin 7.2 GM/DL (13.0-17.0) Hematocrit 22.1 % (39.0-51.0) Mean Corpuscular Volume 95.6 FL (80.0-100.0) Mean Corpuscular Hemoglobin 31.1 PG (27.0-34.0) Mean Corpuscular Hemoglobin 32.6 % Concent (32.0-36.0) Red Cell Distribution Width 15.4 % (11.6-17.2) Platelet Count 236 TH/MM3 (150-450) Mean Platelet Volume 8.6 FL (7.0-11.0) Neutrophils (%) (Auto) 89.4 % (16.0-70.0) Lymphocytes (%) (Auto) 5.7 % (9.0-44.0) Monocytes (%) (Auto) 4.8 % (0.0-8.0) Eosinophils (%) (Auto) 0.1 % (0.0-4.0) Basophils (%) (Auto) 0.0 % (0.0-2.0) Neutrophils # (Auto) 11.1 TH/MM3 (1.8-7.7) Lymphocytes # (Auto) 0.7 TH/MM3 (1.0-4.8) Monocytes # (Auto) 0.6 TH/MM3 (0-0.9) Eosinophils # (Auto) 0.0 TH/MM3 (0-0.4) Basophils # (Auto) 0.0 TH/MM3 (0-0.2) CBC Comment DIFF FINAL Differential Comment Sodium Level 147 MEQ/L (136-145) Potassium Level 3.6 MEQ/L (3.5-5.1) Chloride Level 110 MEQ/L (98-107) Carbon Dioxide Level 29.9 MEQ/L (21.0-32.0) Anion Gap 7 MEQ/L (5-15) Blood Urea Nitrogen 41 MG/DL (7-18) Creatinine 1.22 MG/DL (0.60-1.30) Estimat Glomerular Filtration 62 ML/MIN (>89) Rate Random Glucose 134 MG/DL (74-106) Calcium Level 7.9 MG/DL (8.5-10.1) Phosphorus Level 3.6 MG/DL (2.5-4.9) Magnesium Level 2.5 MG/DL (1.5-2.5) Blood Gas Puncture Site LT RADIAL Blood Gas Patient Temperature 98.6 Blood Gas HCO3 28 mmol/L (22-26) Blood Gas Base Excess 2.6 mmol/L (-2-2) Blood Gas Oxygen Saturation 95 % (90-100) Arterial Blood pH 7.36 (7.380-7.420) Arterial Blood Partial 51 mmHg (38-42) Pressure CO2 Arterial Blood Partial 106 mmHg Pressure O2 (61-120) Arterial Blood Oxygen Content 17.1 Vol % (12.0-20.0) Arterial Blood 1.5 % (0-4) Carboxyhemoglobin Arterial Blood Methemoglobin 1.1 % (0-2) Blood Gas Hemoglobin 12.8 G/DL (12.0-16.0) Oxygen Delivery Device VENTILATOR [facility]600/1.0/+5 Blood Gas Inspired Oxygen 40 % Result Diagram: 11/26/1643911/26/160 Microbiology Microbiology Date/Time Procedure Status Source Growth 11/23/16 16:45 Gram Stain - Final Complete Fluid Pleural Fluid 11/23/16 16:45 Body Fluid Culture - Final Complete Fluid Pleural Fluid NO GROWTH IN 72 HRS.--AEROBICALLY OR ... 11/23/16 16:45 Acid Fast Stain - Final Resulted Fluid Pleural Fluid NO ACID FAST BACILLI SEEN 11/23/16 16:45 Mycobacterial Culture Resulted Fluid Pleural Fluid Pending 11/23/16 16:45 Fungal Smear - Final Resulted Fluid Pleural Fluid NO FUNGAL ELEMENTS SEEN. 11/23/16 16:45 Fungal Culture Resulted Fluid Pleural Fluid Pending 11/24/16 14:10 Aerobic Blood Culture - Preliminary Resulted Blood Peripheral NO GROWTH IN 2 DAYS 11/24/16 14:10 Anaerobic Blood Culture - Preliminary Resulted Blood Peripheral NO GROWTH IN 2 DAYS 11/24/16 14:15 Aerobic Blood Culture - Preliminary Resulted Blood Peripheral NO GROWTH IN 2 DAYS 11/24/16 14:15 Anaerobic Blood Culture - Preliminary Resulted Blood Peripheral NO GROWTH IN 2 DAYS 11/25/16 05:15 Urine Culture - Preliminary Resulted Urine Catheterized Urine NO GROWTH IN 24 HOURS. 11/25/16 11:20 Gram Stain Christopher Batch Sputum Endotracheal Pending 11/25/16 11:20 Sputum Culture Christopher Batch Sputum Endotracheal Pending Procedures Thoracentesis and right (pigtail) thoracostomy 11/14/16 INTUBATION 11/16/16 Bronchoscopy 11/16/16 . 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 Never . One estranged son in [place]. Spiritual: The patient is not and has not ever been spiritual or congregation person according to the family, but the family does want the underbaster to continue to come and visit. Legal: The patient lacks capacity for decision-making, and it it is uncertain whether he will regain that capacity. Initially, he had named his landlord Kerrie Correa as healthcare surrogate, but she makes it very clear by telephone [phone] on 11/18/16 that "since there is family around, I do not want to be the decision-maker for him in any way." I spoke with the patient's 21-year-old son Alexei Mohan [phone] in [place] by telephone, and he reports that he also does not want to be involved in the decision making; "he has not had any impact or played any role in my life, so that would not be appropriate for me to make decisions for him." Thus, the patient's mother Nellie Ying is his healthcare proxy decision-maker. Ethical issues impacting care: None . Important Contacts Mother: Nellie Ying <----> PROXY DECISION-MAKER -- [phone] Son: (estranged for many years) Adarsh Mohan [phone] . Prognosis The patient has multisystem organ failure and septic shock with a large vegetation on his aortic valve, and his overall prognosis is quite guarded at best, and poor at worse. At risk for decompensation, sudden setback and . . Code Status: Full Code Plan ==FULL CODE ==DECISION-MAKING: The patient lacks capacity for decision-making at this time , and it is uncertain whether he will regain that capacity. The patient's mother Nellie Ying is his healthcare proxy decision-maker. ==Goals of Care: Met with pt's Mother, Sister and Friend today 11/26/2016. Met with them and review course of hospitalization and medical decisions to be made. Understand pt has cardiac vegetation and that without surgery, likely will not clear infection, and overall poor prognosis. At this point in time, not a surgical candidate. Reviewed thus far he is unable to be weaned off the ventilator and likely will need decision on trach and peg by this Friday. Reviewed what peg and trach means, and his overall prognosis, if he is able to leave and survive hospitalization, he is as risk for multiple hospitalization and visits. Reviewed code status. Pt 's sister was very tearful. Mother is calm. Family sees the dire predicament, but pt is alert and responsive and young. Mother does not have a final decision, and would like more time to discuss, but by Friday knows we will need a decision. The difficulty with the family is he is young and so responsive. Not ready to opt for comfort measures only. Likely will opt for peg and Trach, but want more time to discuss themselves. Endorse a continue full code. ==SYMPTOMS: Any pain or dyspnea is being managed by appropriate sedation and the ventilator, and I have no additional medication recommendations at this time. ==Palliative Care will continue to follow the patient during this hospitalization. . Time Spent Total Floor Time (mins): 38 Face to Face Time (mins): 30 Attestation To help prompt me to consider important information that might be impacting today's encounter and assessment, information from prior notes written by myself or my colleagues may have been "brought forward" into today's note. My signature on this note, however, is an attestation that I personally performed the exam, history, and/or decision-making noted today, and, unless otherwise indicated, the interactions with patient, family, and staff as well as the review of records all occurred today. I also attest that the listed assessment and stated plan reflect my best clinical judgment today based on the combination of historical information, prior notes, and today's exam/ interactions. When time spent is documented, it refers only to time spent today by the signer, or if indicated, combined time spent today by collaborating physician/nurse practitioner. Celestine Hampton MD Nov 26, 2016 16:17
--- NOTE | 2016-11-26 20:06 | HHI.PR ---
Subjective Remarks Patient was intubated last night for acute hypoxemic resp failure and a right chest tube was placed for right hydroPTX in addition patient underwent bronch with BAL ( mucous plugs b/l suctioned to clear). MRI brain multifocal area of septic emboli/infarct Sedated with diprivan and Fentanyl Tolerated CPAP 3 hrs Now on PRVC, Fi02 40% Objective Vital Signs Vital Signs Date Time Temp Pulse Resp B/P Pulse Ox O2 Delivery O2 Flow Rate FiO2 11/26/16 19:28 94 40 11/26/16 19:00 90 11/26/16 19:00 90 18 111/55 93 11/26/16 18:00 90 17 109/54 92 11/26/16 18:00 90 11/26/16 17:00 90 17 110/55 93 11/26/16 16:30 88 11/26/16 16:00 98.7 84 13 107/55 93 11/26/16 16:00 84 11/26/16 15:30 86 11/26/16 15:27 86 11/26/16 15:08 93 40 11/26/16 15:00 86 22 110/59 93 11/26/16 15:00 90 11/26/16 14:00 92 27 99 11/26/16 14:00 92 11/26/16 13:00 97 20 119/58 75 11/26/16 13:00 97 11/26/16 12:15 40 11/26/16 12:00 98.3 118 27 165/73 79 11/26/16 12:00 118 11/26/16 11:00 107 11/26/16 11:00 107 29 138/64 100 11/26/16 10:57 100 40 11/26/16 10:20 40 11/26/16 10:00 92 11/26/16 10:00 92 20 119/56 97 11/26/16 09:00 90 11/26/16 09:00 90 16 106/53 96 11/26/16 08:30 85 17 106/56 98 11/26/16 08:30 85 11/26/16 08:00 82 11/26/16 08:00 97.6 82 17 102/55 94 11/26/16 07:30 86 16 106/55 97 11/26/16 07:28 98 40 11/26/16 07:00 75 16 97/55 99 11/26/16 06:00 75 11/26/16 04:05 93 40 11/26/16 04:00 50 11/26/16 04:00 93 11/26/16 04:00 97.6 93 20 122/56 95 11/26/16 02:00 80 11/26/16 01:05 93 40 11/26/16 00:00 50 11/26/16 00:00 87 11/26/16 00:00 97.8 82 19 103/53 96 11/25/16 22:03 95 40 11/25/16 22:00 85 I/O 11/25/16 11/25/16 11/25/16 11/26/16 11/26/16 11/26/16 07:00 15:00 23:00 07:00 15:00 23:00 Intake Total 2485 ml 2282 ml 1729 ml 1113 ml 2347 ml Output Total 70 ml 870 ml 510 ml 350 ml 1000 ml Balance 2415 ml 1412 ml 1219 ml 763 ml 1347 ml IV Total 2019 ml 1595 ml 977 ml 761 ml 1382 ml Tube Feeding 466 ml 437 ml 502 ml 352 ml 615 ml Other 250 ml 250 ml 0 ml 350 ml Output Urine Total 450 ml 300 ml 200 ml 400 ml Stool Total 100 ml 600 ml Chest Tube Drainage Total 70 ml 420 ml 110 ml 150 ml # Bowel Movements 2 0 Result Diagram: 11/26/1643911/26/16439 Objective Remarks GENERAL: Patient is 56 yo critically ill intubated , sedated and on pressors. SKIN: Warm and dry. HEAD: Normocephalic. EYES: No scleral icterus. No injection or drainage. NECK: Supple, trachea midline. No JVD or lymphadenopathy. CARDIOVASCULAR: Regular rate and rhythm without murmurs, gallops, or rubs. RESPIRATORY: Breath sounds equal bilaterally. No accessory muscle use. GASTROINTESTINAL: Abdomen soft, non-tender, nondistended. MUSCULOSKELETAL: No cyanosis, or edema. Neuro: Sedated and intubated A/P Assessment and Plan 1VDRF 2)Septic shock 3)Staph Aureus bacteremia 4)Empyema 6)Endocarditis involving AV 7)Leucocytosis 8)Cavitary pulm masses 2nd staph Aureus 9)Right hydroPTX PLAN: Continue with vent support keep sat >92% Bronchodilators, ICU vent bundle, on stress dose steroids- HC 100mg IV Q8 On PRVC/AC /1.02/25, 40% Abx per ID ( On Ancef, Zosyn, Gent)monitor for signs of infections ( Fever, WBC ) Follow up on BAL results/cx CTS is following- no intervention at this time. Chest tube to suction Sedation with Diprivan and fentanyl Emmett Bolton MD Nov 26, 2016 20:06
[2016-11-26] MEDS: VASOPRESSIN INJ 40 UNITS in DEXTROSE 5% IN WATER 100ML INJ 98 ML IV SCH ×2 (21:57)
[2016-11-27] VITALS (33 sets, daily range): BP systolic 98–121; BP diastolic 51–59; PULSE 80–98; RESP 18–28; TEMP 96.7–99.7; O2SAT 40–100
[2016-11-27] MEDS: PROPOFOL 1000 MG/100 ML INJ 100 ML IV SCH ×5 (00:49→21:52)
[2016-11-27] MEDS: ceFAZolin 2 GM PREMIX 50 ML IV SCH ×3 (00:50→18:08)
[2016-11-27] MEDS: CHLORHEXIDINE GLUCONATE 2 % 1 PACK (2 CLOTHS) TOP SCH (04:00)
[2016-11-27] MEDS: INSULIN ASPART SUPPLEMENTAL SCALE SQ SCH ×4 (05:00→23:00)
[2016-11-27] MEDS: ARTIFICIAL TEARS OPTH SOLN 15 ML BTL EACH EYE SCH ×3 (05:45→20:16)
[2016-11-27] MEDS: FREE WATER G-TUBE SCH ×3 (05:45→22:00)
[2016-11-27] MEDS: METOCLOPRAMIDE HCL 10 MG/2 ML VIAL IV SCH ×3 (05:46→20:16)
--- NOTE | 2016-11-27 05:48 | RADRPT ---
EXAM DATE/TIME: 11/27/2016 04:52 [facility] COMPARISON: CHEST SINGLE AP, November 25, 2016, 4:41. INDICATIONS : Shortness of breath. MEDICAL HISTORY : Sepsis. Cavitary mass. SURGICAL HISTORY : Thoracentesis. ENCOUNTER: Subsequent ACUITY: 2 weeks PAIN SCORE: Non-responsive. LOCATION: Bilateral chest FINDINGS: Lung volumes are smaller than yesterday. Large cavitary mass in the right mid lung again seen and the re is worsening consolidation in the right mid lung and base. Patchy, mainly subpleural and basilar c onsolidation on the left not significantly changed. Endotracheal tube tip is about 6 cm above the joseph. Nasogastric tube courses into the stomach. CONCLUSION: 1. Worsening dense consolidation of the right mid and lower lung. 2. Right mid lung cavitary mass again seen not significantly changed. 3. Patchy subpleural airspace opacities of the left lung not significantly changed. Agustin Nolan MD on November 27, 2016 at 5:45 Board Certified Radiologist. This report was verified electronically.
[2016-11-27 06:34] LABS: AUTOMATED NEUTROPHIL # 10.7 TH/MM3 (1.8-7.7); BASOPHIL % 0.2 % (0.0-2.0); EOSINOPHIL % 0.2 % (0.0-4.0); HEMATOCRIT 21.9 % (39.0-51.0); HEMO FLAGS DIFF FINAL; LYMPHOCYTE # 0.7 TH/MM3 (1.0-4.8); MEAN CELL VOLUME 95.6 FL (80.0-100.0); MEAN CORPUSCULAR HEMOGLOBIN 30.4 PG (27.0-34.0); MEAN CORPUSCULAR HGB CONC 31.8 % (32.0-36.0); MONO % 5.1 % (0.0-8.0); NEUT % 88.5 % (16.0-70.0); PLATELET COUNT 214 TH/MM3 (150-450); RED BLOOD COUNT 2.28 MIL/MM3 (4.50-5.90); WHITE BLOOD COUNT 12.1 TH/MM3 (4.0-11.0)
[2016-11-27 06:43] LABS: ALT (GPT) 8 U/L (12-78); ANION GAP 7 MEQ/L (5-15); AST (GOT) 14 U/L (15-37); BICARBONATE 27.6 MEQ/L (21.0-32.0); BLOOD UREA NITROGEN 46 MG/DL (7-18); CHLORIDE 111 MEQ/L (98-107); GLOMERULAR FILTRATION RATE 42 ML/MIN (>89); MAGNESIUM 2.4 MG/DL (1.5-2.5); POTASSIUM 3.8 MEQ/L (3.5-5.1); SODIUM (NA) 146 MEQ/L (136-145)
[2016-11-27 06:45] LABS: ALKALINE PHOSPHATASE 94 U/L (45-117); TOTAL BILIRUBIN ADULT 0.3 MG/DL (0.2-1.0)
[2016-11-27] MEDS: PANTOPRAZOLE SODIUM 40 MG VIAL IV SCH ×2 (08:12→20:16)
[2016-11-27] MEDS: FOLIC ACID 1 MG TAB PO SCH (08:12)
[2016-11-27] MEDS: THIAMINE HCL 100 MG TAB PO SCH (08:12)
[2016-11-27] MEDS: HEPARIN SODIUM - SQ 10,000 UNITS/ML VIAL SQ SCH ×2 (08:12→20:15)
[2016-11-27] MEDS: SODIUM CHLORIDE 0.9% FLUSH 10 ML FLUSH IV FLUSH SCH ×2 (08:13→21:53)
[2016-11-27] MEDS: LACTULOSE SYRUP 20 GM/30 ML CUP PO SCH (08:13)
[2016-11-27] MEDS: HYDROCORTISONE SOD SUCCINATE 100 MG VIAL IV PUSH SCH ×2 (08:13→20:15)
[2016-11-27] MEDS: SODIUM CHLORIDE 0.9% FLUSH 10 ML FLUSH IVF SCH (08:13)
[2016-11-27] MEDS: POLYETHYLENE GLYCOL 17 GM PKG PO SCH ×2 (08:13→20:14)
[2016-11-27] MEDS: DOCUSATE SODIUM 50 MG/SENNA 8.6 MG TAB PO SCH (08:13)
--- NOTE | 2016-11-27 08:33 | HHI.CCPN ---
Subjective Remarks/Hospital Course 56-year-old male is brought to the emergency department by EMS for evaluation of generalized weakness, confusion for about 2 weeks, and also increasing shortness of breath. His oxygen saturation was 88% on room air. EMS administered breathing treatments and Solu-Medrol 125 mg 1 and placed him on nasal cannula. Patient states that he had been sick for almost 10 days, but he is a poor historian. He had a productive cough, but reports no hematemesis or weight loss. He states that it was his neighbor who made him called EMS. He has no past medical history and last time had seen a doctor was about 15 years ago. He denies any fevers but reports some night sweats and chills. He was tachycardic with a heart rate of 115 bpm, had severe leukocytosis with a white count of 35,000 with 91% neutrophils. CMP shows hyponatremia with a sodium of 126. Lactic acid is 2.4. His Chest x-ray shows large 7.7 x 7.8 cm cavitary right midlung lesion with associated right-sided pleural effusion. Subcentimeter left mid lung pulmonary nodules. Patient received 1 L normal saline bolus and Zosyn 4.5 g and Zithromax 500 mg IV and was placed on TB/ respiratory isolation. He has been being in care home 2 years ago increasing his risk of tuberculosis. CT pulmonary angiogram negative for PE but showed multiple cavitary lesions within both lungs with the largest measuring 9.5 cm in the right upper lobe. Moderate size right pleural effusion. I evaluated the patient in the emergency department. Patient appears critically ill in moderate distress mildly tachypneic, sweating. I performed a bedside ultrasound which showed a right effusion which is large. The thoracentesis was performed and 1 L of cloudy dark pleural fluid was removed. Patient will be continued on Zosyn and Levaquin and vancomycin. ID consulted and I discussed with Dr. Steele-she recommended no empiric treatments for TB. 11/14/16: Patient seen and examined complaints of severe epigastric and periumbilical abdominal pain. Patient remains oriented to person. His white count is slightly improved from 35,000-28,9000. Na improved to 136. I have ordered a STAT CT abd/pelvis with IV contrast. Chest x-ray shows reaccumulation of right pleural effusion-fluid chemistries are pending but cell count indicates at least a parapneumonic effusion and patient will need a pigtail chest tube 11/15: Patient pulled his right-sided pigtail catheter out overnight last night. Currently nasal cannula in no acute distress. Afebrile. Continues to have a leukocytosis. 11/16: Currently on room air. Hold out his IVs reportedly overnight last night. Requesting diet. Awake and alert and following commands. 11/17: Intubated yesterday due to acute hypercapnic respiratory failure. Hypoxic post intubation requiring right chest tube placement, bronchoscopy and Flolan. Bronchoscopy revealed thick mucous plugging at bilateral right and left mainstem which were clear. Improved oxygenation over the past 12 hours. Afebrile. 11/18 Patient remains sedated with Diprivan, Fentanyl and intubated. On Vasopressin and Neosyn 120 mics. 11/19 Patient is sedated with Diprivan, Fentanyl and intubated. Afebrile. Off all pressors. Afebrile. WBC is trending down 30 today from 50. 11/20: Remains severely septic and encephalopathic even though weaned off all pressors. White count still elevated but trending down. Became extremely tachycardic and tachypneic on lowering sedation. We'll check MRI of the brain to rule out embolic infarct. Family at the bedside updated 11/21 Remains heavily sedated, remains encephalopathic. MRI brain is pending. Family is at bedside. Remains critically with resp failure severe from endocarditis, now unable to wean off the ventilator due to severe metabolic encephalopathy 11/22 No events overnight. Sedated with Diprivan, fentanyl and intubated. Afebrile. MRI brain yesterday showed ischemic changes likely related to septic emboli. 11/23: Patient remains encephalopathic, severe hyponatremia possible contributing , Na is 157 today. Currently on Precedex and fentanyl. CXR shows increasing L effusion 11/24: Patient more awake today. Follows Commands but did not tolerate spontaneous breathing trials. Had left pigtail chest tube placed yesterday 1.6 L transudative fluid removal since placement 11/25 Patient is sedated with Diprivan, Fentanyl and intubated. T:99.9 11/26 No events overnight. Sedated and intubated. Patient was on CPAP x 3 hrs yesterday then became tachypneic. Subjective 11/27: Resting in bed comfortably on Diprivan at 40 mics grams per kilogram per minute and fentanyl drip at 200 an hour. Tolerated PSV trial 2 hours yesterday before becoming tachypnea. Positive BM via fecal containment device 1100 cc. Yesterday according to RN was following commands. Objective Vital Signs Date Time Temp Pulse Resp B/P Pulse Ox O2 Delivery O2 Flow Rate FiO2 11/27/16 07:16 40 35 11/27/16 06:00 82 11/27/16 04:00 96.7 18 98/53 11/25/16 08:24 Ventilator Intake and Output 11/26/16 11/26/16 11/27/16 08:00 16:00 00:00 Intake Total 1113 ml 2347 ml 1431 ml Output Total 350 ml 1000 ml 785 ml Balance 763 ml 1347 ml 646 ml Result Diagram: 11/27/16 0532 11/27/16 0532 Other Results Microbiology Date/Time Procedure Status Source Growth 11/25/16 11:20 Gram Stain Christopher Batch Sputum Endotracheal Pending 11/25/16 11:20 Sputum Culture Christopher Batch Sputum Endotracheal Pending 11/25/16 05:15 Urine Culture - Final Complete Urine Catheterized Urine NO GROWTH IN 48 HOURS. 11/24/16 14:15 Aerobic Blood Culture - Preliminary Resulted Blood Peripheral NO GROWTH IN 2 DAYS 11/24/16 14:15 Anaerobic Blood Culture - Preliminary Resulted Blood Peripheral NO GROWTH IN 2 DAYS 11/23/16 16:45 Gram Stain - Final Complete Fluid Pleural Fluid 11/23/16 16:45 Body Fluid Culture - Final Complete Fluid Pleural Fluid NO GROWTH IN 72 HRS.--AEROBICALLY OR ... 11/23/16 16:45 Fungal Smear - Final Resulted Fluid Pleural Fluid NO FUNGAL ELEMENTS SEEN. 11/23/16 16:45 Fungal Culture Resulted Fluid Pleural Fluid Pending 11/23/16 16:45 Acid Fast Stain - Final Resulted Fluid Pleural Fluid NO ACID FAST BACILLI SEEN 11/23/16 16:45 Mycobacterial Culture Resulted Fluid Pleural Fluid Pending Imaging Last 72 hours Impressions Chest X-Ray 11/27/16 0000 Signed Impressions: Service Date/Time: Sunday, November 27, 2016 04:52 - CONCLUSION: 1. Worsening dense consolidation of the right mid and lower lung. 2. Right mid lung cavitary mass again seen not significantly changed. 3. Patchy subpleural airspace opacities of the left lung not significantly changed. Agustin Nolan MD Chest X-Ray 11/25/16 0600 Signed Impressions: Service Date/Time: Friday, November 25, 2016 04:41 - CONCLUSION: Mild increased interstitial vascular prominence. Stable right basilar loculated pneumothorax. Stable right lung cavitary lesion. Support devices remain in good position. Jose A Escobedo MD Objective Remarks GENERAL: 56-year-old male, critically ill currently orotracheally intubated SKIN: Warm and dry. Scattered skin lesions erythematous predominantly left lower extremity HEAD: Normocephalic and atraumatic. EYES: No injection, drainage. Pupils equally round and reactive around 3 mm bilaterally and reactive to 2 mm. ENT: No nasal drainage noted. Oropharynx is clear. Orotracheally intubated NECK: Supple. No JVD or thyromegaly or lymphadenopathy. CARDIOVASCULAR: Tachycardic, RR. S1, S2. No S4. Aortic regurgitation murmur not appreciated. RESPIRATORY: Diminished breath sounds bilaterally. Mild expiratory wheezing and few crackles. Right chest tube 350 ml output, L pigtail 15 ml output in 24 hours GASTROINTESTINAL: Abdomen is soft, mildly distended no rebound or guarding on examination. Hypoactive bowel sounds are appreciated MUSCULOSKELETAL: 1+ pitting edema bilateral lower extremities. Multiple erythematous raised lesions on bilateral lower extremity predominantly left lower leg NEUROLOGICAL: Precedex and fentanyl ventilator synchrony. Awake, Moving all 4 extremity spontaneously and follows commands Date of Insertion: Nov 16, 2016 Line: Central Venous Catheter Side: Left Location: Internal, Jugular A/P Assessment and Plan NEURO/PSYCH: Metabolic encephalopathy Septic brain emboli On Diprivan at 40 mg/kg/m and Fentanyl infusion at 200 an hour for sedation/ analgesia while intubated. Goal of RASS -2. Daily sedation vacation. steadily improving neuro exam EEG 11/24: Generalized encephalopathy without any significant epileptic activity. MRI brain 11/21: Ischemic changes throughout white matter likely related to septic emboli. Neuro consulted Dr. Hernandez CT head 11/17 revealed no acute intracranial findings currently no signs of gross embolic events. On Thiamine/MVI/Folic acid RESP: Bilateral cavitary lung lesions/most likely cavitating pneumonia from staph aureus Acute respiratory failure Large right loculated pleural effusion/empyema Left pleural effusion PRVC 16/600/1.1/5/40. Currently on PSV trial 04/22 at 40% Continue with vent support keep sat >92%. Duo nebs every 4 hours with albuterol nebs every 2 hours. Vent bundle. Daily SBT, if no significant progress in weaning trials then he might need trach. Intubated on 11/16 Right-sided chest tube #28 Vietnamese- monitor CT drainage( Drained 350 ml in 24 hours) -20 cm H2O Left-sided chest tube #10 Vietnamese- placed 11/24/16-drained 15 ml in 24 hrs -20 cm H2O - Right thoracentesis with 1 L cloudy yellow fluid removed, fluid cell studies WBC 2,600, - Patient status post pigtail catheter placement 11/14, 445 cc prior pulled out 11/15. Evaluated by Dr. Samuels/CT surgery. Per his recommendations, No indication for decortication at this time CV: Aortic valve endocarditis/large vegetation Sinus tachycardia Atrial fibrillation with RVR early normal sinus rhythm Elevated troponin - likely rate dependent Monitor HR and BP keep MAP>65mmHg - Stress dose steroids-Hydrocortisone 50mg IV Q12 - 2-D echocardiogram revealed EF 55-60%. Moderate AR. CHANDNI revealed 17 mm x 17 millimeter mobile mass on aortic valve. limited echo 11/22 Persistent vegetation - CT surgery. Recommendations no intervention at this time GI: Hypoalbuminemia Continue tube feeds with Glucerna 1.5@ 55 cc an hour. IV Protonix for GI prophylaxis. MiraLAX twice a day for bowel regimen Reglan for bowel motility - CT of the abdomen pelvis with IV contrast revealed possible ileus., Gastric contraction at gastric duodenal junction. 2 mm renal cyst. - KUB 11/15 revealed improving mild ileus. GI is following. : Santana catheter has been placed for accurate I's and O's in a critically ill patient ID: Severe sepsis New fever Multilobar cavitating pneumonia secondary staph aureus Staph aureus empyema - Continue with abx per ID ( IV Ancef) monitor for signs of infections ( Fever, WBC) WBC is trending down - Gentamicin discontinued 11/26 due to elevated creatinine Pertinent cultures 11/13 - blood cultures 2 - staph aureus 11/13 and 11/14- pleural fluid- staph aureus 11/14- sputum- staph aureus 11/15 - blood cultures 2 -staph aureus 11/16 - Bronch samples: Staph Aureus 11/16 Sputum: Staph Aureus 11/19 - blood cultures 2 - no growth 11/23 - pleural fluid - no growth 11/24 - blood cultures 2 - no growth 11/25 - UA - negative 11/25 - sputum - pending HEME: Leukocytosis Normocytic anemia - Monitor CBC, CMP, coags ENDO: SSI with accuchecks for glycemic control TSH 0.6. FEN: Hypernatremia Currently on D5 water at 100 cc now. Patient is very edematous/volume overload. We'll discontinue Free water flushes at 250 cc every 8 hours. Follow-up on sodium in a.m. RENAL: Acute kidney injury Creatinine currently 1.7. Check urine eosinophil/electrolytes Monitor urine output Accurate I's and O's Avoid nephrotoxic drugs PROPH: - Bilateral lower extremity SCDs. Heparin SQ, IV Protonix for prophylaxis LINES: - Left IJ CVL placed 11/16 discontinued unknown time. Currently with peripheral IVs Palliative care is following Critical Care: The total critical care time was 30 minutes. Time to perform other separately billable procedures was not included in the critical care time. Josh Saunders MD Nov 27, 2016 08:33
[2016-11-27] MEDS ORDERED: FUROSEMIDE 20 MG/2 ML VIAL IV PUSH SCH (08:45)
[2016-11-27] MEDS: RESP: ALBUTEROL 2.5 MG/IPRATROPIUM 0.5 MG NEB (SCH) NEB ×4 (09:54→23:26)
[2016-11-27] MEDS: fentaNYL DRIP 250 ML IV SCH ×2 (11:54→21:52)
[2016-11-27] MEDS: MULTIVITAMIN TAB PO SCH (11:55)
[2016-11-27] MEDS: CHLORHEXIDINE 0.12% (ORAL KIT) 15 ML CUP MT SCH ×2 (11:55→20:00)
--- NOTE | 2016-11-27 13:47 | PD.WCN.NOT ---
Wound Consult Description: Screening of nursing documentation regarding wound to buttock Communicated with: KIERA Medeiros Recommendation: Calazime BID and PRN to bilateral upper buttock DTI Skin barrier film to bilateral heel DTI's Apply pump to Linett mattress Additional Information: Patient seen with KIERA Medeiros on [facility] for wound evaluation of bilateral buttocks. Patient is noted on a Linett mattress and positioned to his left side when entering room. Patient positioned further to his left side for assessment. Bilateral buttocks were visualized. Non blanchable dark maroon/ purple discoloration was noted to sacrum measuring 1cm x 5cm with periwound of partial thickness skin loss noted to bilateral buttocks. Applied barrier cream to sacral DTI, buttock/thigh areas of partial thickness skin loss. Left heel was noted with a blood filled blister measuring ~1cm x 1cm that was prepped with Cavilon skin barrier film and left open to air. Right heel is dark purple/ maroon with non blanching intact boggy skin measuring 1cm x 2cm that was prepped with Cavilon skin barrier film and left open to air. Heels were floated off mattress surface with a pillow underneath the calves. Nia Nix [facility] Nov 27, 2016 13:47
--- NOTE | 2016-11-27 16:48 | HHI.PR ---
Subjective Remarks Patient was intubated last night for acute hypoxemic resp failure and a right chest tube was placed for right hydroPTX in addition patient underwent bronch with BAL ( mucous plugs b/l suctioned to clear). MRI brain multifocal area of septic emboli/infarct Sedated with diprivan and Fentanyl Tolerating CPAP Objective Vital Signs Vital Signs Date Time Temp Pulse Resp B/P Pulse Ox O2 Delivery O2 Flow Rate FiO2 11/27/16 15:07 98 40 11/27/16 13:00 90 27 114/57 98 11/27/16 13:00 90 11/27/16 12:30 90 28 116/59 95 11/27/16 12:30 90 11/27/16 12:00 90 11/27/16 12:00 97.7 90 25 121/56 95 11/27/16 11:30 85 11/27/16 11:30 85 22 103/52 98 11/27/16 11:07 98 40 11/27/16 11:00 87 19 108/56 98 11/27/16 11:00 87 11/27/16 10:30 86 11/27/16 10:30 86 23 104/53 98 11/27/16 10:00 87 23 107/54 98 11/27/16 10:00 87 11/27/16 10:00 40 11/27/16 09:30 85 21 104/51 98 11/27/16 09:30 85 11/27/16 09:00 87 11/27/16 09:00 87 21 104/53 97 11/27/16 08:30 86 11/27/16 08:30 86 20 98/53 94 11/27/16 08:00 40 11/27/16 08:00 84 11/27/16 08:00 99.6 84 26 98/52 96 11/27/16 07:16 40 35 11/27/16 06:00 82 11/27/16 04:04 95 40 11/27/16 04:00 96.7 89 18 98/53 97 11/27/16 04:00 89 11/27/16 04:00 40 11/27/16 02:00 90 11/27/16 01:06 95 40 11/27/16 00:00 98 11/27/16 00:00 99.7 98 18 109/52 100 11/27/16 00:00 40 11/26/16 22:04 100 40 11/26/16 22:00 98 11/26/16 20:00 40 11/26/16 20:00 99.2 85 18 106/54 96 11/26/16 20:00 85 11/26/16 19:28 94 40 11/26/16 19:00 90 11/26/16 19:00 90 18 111/55 93 11/26/16 18:00 90 17 109/54 92 11/26/16 18:00 90 11/26/16 17:00 90 17 110/55 93 I/O 11/26/16 11/26/16 11/26/16 11/27/16 11/27/16 11/27/16 07:00 15:00 23:00 07:00 15:00 23:00 Intake Total 1113 ml 2347 ml 1431 ml 1740 ml Output Total 350 ml 1000 ml 785 ml 505 ml Balance 763 ml 1347 ml 646 ml 1235 ml IV Total 761 ml 1382 ml 747 ml 1052 ml Tube Feeding 352 ml 615 ml 434 ml 438 ml Other 0 ml 350 ml 250 ml 250 ml Output Urine Total 200 ml 400 ml 225 ml 200 ml Stool Total 600 ml 300 ml 200 ml Chest Tube Drainage Total 150 ml 260 ml 105 ml # Bowel Movements 0 Result Diagram: 11/27/1632 11/27/16531 Objective Remarks GENERAL: Patient is 56 yo critically ill intubated , sedated and on pressors. SKIN: Warm and dry. HEAD: Normocephalic. EYES: No scleral icterus. No injection or drainage. NECK: Supple, trachea midline. No JVD or lymphadenopathy. CARDIOVASCULAR: Regular rate and rhythm without murmurs, gallops, or rubs. RESPIRATORY: Breath sounds equal bilaterally. No accessory muscle use. GASTROINTESTINAL: Abdomen soft, non-tender, nondistended. MUSCULOSKELETAL: No cyanosis, or edema. Neuro: Sedated and intubated A/P Assessment and Plan 1VDRF 2)Septic shock 3)Staph Aureus bacteremia 4)Empyema 6)Endocarditis involving AV 7)Leucocytosis 8)Cavitary pulm masses 2nd staph Aureus 9)Right hydroPTX PLAN: Continue with vent support keep sat >92% Bronchodilators, ICU vent bundle, on stress dose steroids- HC 100mg IV Q8 On PRVC/AC /1.02/25, 40% Abx per ID CTS is following- no intervention at this time. Chest tube to suction Sedation with Diprivan and fentanyl Emmett Bolton MD Nov 27, 2016 16:48
[2016-11-28] VITALS (28 sets, daily range): BP systolic 101–131; BP diastolic 50–61; PULSE 86–100; RESP 15–28; TEMP 97.2–98.4; O2SAT 93–100
[2016-11-28] MEDS: PROPOFOL 1000 MG/100 ML INJ 100 ML IV SCH ×6 (01:12→21:23)
[2016-11-28] MEDS: ceFAZolin 2 GM PREMIX 50 ML IV SCH ×4 (01:20→23:32)
[2016-11-28] MEDS: RESP: ALBUTEROL 2.5 MG/IPRATROPIUM 0.5 MG NEB (SCH) NEB ×6 (03:49→23:07)
[2016-11-28] MEDS: CHLORHEXIDINE GLUCONATE 2 % 1 PACK (2 CLOTHS) TOP SCH (04:00)
[2016-11-28] MEDS: METOCLOPRAMIDE HCL 10 MG/2 ML VIAL IV SCH ×3 (04:27→21:22)
[2016-11-28] MEDS: INSULIN ASPART SUPPLEMENTAL SCALE SQ SCH ×4 (05:00→23:00)
[2016-11-28] MEDS: FREE WATER G-TUBE SCH ×3 (05:02→21:24)
[2016-11-28] MEDS: ARTIFICIAL TEARS OPTH SOLN 15 ML BTL EACH EYE SCH ×3 (05:02→21:23)
[2016-11-28 05:31] LABS: AUTOMATED NEUTROPHIL # 6.9 TH/MM3 (1.8-7.7); BASOPHIL % 0.1 % (0.0-2.0); EOSINOPHIL % 0.1 % (0.0-4.0); HEMATOCRIT 21.8 % (39.0-51.0); HEMO FLAGS DIFF FINAL; LYMPH % 8.5 % (9.0-44.0); LYMPHOCYTE # 0.7 TH/MM3 (1.0-4.8); MEAN CELL VOLUME 93.3 FL (80.0-100.0); MEAN CORPUSCULAR HEMOGLOBIN 31.1 PG (27.0-34.0); MEAN CORPUSCULAR HGB CONC 33.4 % (32.0-36.0); MONO % 6.4 % (0.0-8.0); NEUT % 84.9 % (16.0-70.0); PLATELET COUNT 210 TH/MM3 (150-450); RED BLOOD COUNT 2.33 MIL/MM3 (4.50-5.90); RED CELL DISTRIBUTION WIDTH 15.4 % (11.6-17.2); WHITE BLOOD COUNT 8.1 TH/MM3 (4.0-11.0)
[2016-11-28 05:49] LABS: ANION GAP 9 MEQ/L (5-15); AST (GOT) 10 U/L (15-37); BICARBONATE 26.1 MEQ/L (21.0-32.0); BLOOD UREA NITROGEN 53 MG/DL (7-18); CHLORIDE 108 MEQ/L (98-107); GLOMERULAR FILTRATION RATE 40 ML/MIN (>89); MAGNESIUM 2.6 MG/DL (1.5-2.5); POTASSIUM 3.8 MEQ/L (3.5-5.1); SODIUM (NA) 143 MEQ/L (136-145)
[2016-11-28 05:50] LABS: ALT (GPT) LESS THAN 6 U/L (12-78)
[2016-11-28 05:52] LABS: ALKALINE PHOSPHATASE 82 U/L (45-117); TOTAL BILIRUBIN ADULT 0.4 MG/DL (0.2-1.0)
[2016-11-28 05:55] LABS: CREATINE KINASE 71 U/L (39-308)
[2016-11-28] MEDS: CHLORHEXIDINE 0.12% (ORAL KIT) 15 ML CUP MT SCH ×2 (08:00→21:24)
[2016-11-28] MEDS: THIAMINE INJ 100 MG in SODIUM CHLORIDE 0.9% INJ 100 ML IV SCH (09:31)
[2016-11-28] MEDS: LACTULOSE SYRUP 20 GM/30 ML CUP PO SCH (09:31)
[2016-11-28] MEDS: SODIUM CHLORIDE 0.9% FLUSH 10 ML FLUSH IVF SCH (09:35)
[2016-11-28] MEDS: HYDROCORTISONE SOD SUCCINATE 100 MG VIAL IV PUSH SCH ×2 (09:35→21:23)
[2016-11-28] MEDS: SODIUM CHLORIDE 0.9% FLUSH 10 ML FLUSH IVF PRN (09:35)
[2016-11-28] MEDS: HEPARIN SODIUM - SQ 10,000 UNITS/ML VIAL SQ SCH ×2 (09:35→21:23)
[2016-11-28] MEDS: SODIUM CHLORIDE 0.9% FLUSH 10 ML FLUSH IV FLUSH PRN (09:35)
[2016-11-28] MEDS: SODIUM CHLORIDE 0.9% FLUSH 10 ML FLUSH IV FLUSH SCH ×2 (09:35→21:23)
[2016-11-28] MEDS: PANTOPRAZOLE SODIUM 40 MG VIAL IV SCH ×2 (09:36→21:23)
[2016-11-28] MEDS: FOLIC ACID 1 MG TAB PO SCH (09:36)
[2016-11-28] MEDS: MULTIVITAMIN TAB PO SCH (09:36)
[2016-11-28] MEDS: POLYETHYLENE GLYCOL 17 GM PKG PO SCH ×2 (09:36→21:23)
--- NOTE | 2016-11-28 10:15 | HHI.GIFU ---
Subjective Remarks Resting in bed. Sedated on ventilator. + BM in flexiseal. No GI bleeding. Objective Vitals I&O Vital Signs Date Time Temp Pulse Resp B/P Pulse Ox O2 Delivery O2 Flow Rate FiO2 11/28/16 09:15 35 11/28/16 09:12 35 11/28/16 09:12 100 35 11/28/16 08:00 40 11/28/16 07:32 100 35 11/28/16 06:00 91 11/28/16 04:00 40 11/28/16 04:00 88 11/28/16 04:00 97.8 88 19 103/53 97 11/28/16 03:50 96 35 11/28/16 02:00 91 11/28/16 01:33 93 35 11/28/16 00:00 97.2 86 17 101/50 98 11/28/16 00:00 86 11/28/16 00:00 40 11/27/16 22:21 98 35 11/27/16 22:00 84 11/27/16 20:00 40 11/27/16 20:00 80 11/27/16 20:00 97.6 80 20 99/51 97 11/27/16 20:00 40 11/27/16 19:56 96 35 11/27/16 19:00 86 11/27/16 18:30 88 11/27/16 18:00 90 11/27/16 17:27 99.1 90 28 110/59 100 11/27/16 17:05 98.4 88 24 109/59 98 11/27/16 17:00 87 23 109/59 100 11/27/16 17:00 87 11/27/16 16:00 89 11/27/16 16:00 40 11/27/16 16:00 98.4 89 25 111/57 98 11/27/16 15:07 98 40 11/27/16 15:00 84 23 106/53 98 11/27/16 15:00 84 11/27/16 14:00 86 11/27/16 14:00 86 23 112/55 97 11/27/16 13:00 90 27 114/57 98 11/27/16 13:00 90 11/27/16 12:30 90 28 116/59 95 11/27/16 12:30 90 11/27/16 12:00 90 11/27/16 12:00 40 11/27/16 12:00 97.7 90 25 121/56 95 11/27/16 11:30 85 11/27/16 11:30 85 22 103/52 98 11/27/16 11:07 98 40 11/27/16 11:00 87 19 108/56 98 11/27/16 11:00 87 11/27/16 10:30 86 11/27/16 10:30 86 23 104/53 98 11/27/16 10:00 87 23 107/54 98 11/27/16 10:00 87 11/27/16 10:00 40 I/O 11/27/16 11/27/16 11/27/16 11/28/16 11/28/16 11/28/16 07:00 15:00 23:00 07:00 15:00 23:00 Intake Total 1740 ml 1693 ml 1223 ml 862 ml Output Total 505 ml 510 ml 250 ml 795 ml Balance 1235 ml 1183 ml 973 ml 67 ml IV Total 1052 ml 741 ml 714 ml 326 ml Tube Feeding 438 ml 602 ml 389 ml 416 ml Other 250 ml 350 ml 120 ml 120 ml Output Urine Total 200 ml 400 ml 250 ml 650 ml Stool Total 200 ml 0 ml 100 ml Chest Tube Drainage Total 105 ml 110 ml 0 ml 45 ml # Voids 100 Laboratory Laboratory Tests Test 11/27/16 11/27/16 11/27/16 11/28/16 10:00 13:18 15:41 05:09 Urine Eosinophils NONE SEEN Urine Random Creatinine 105.4 Urine Random Sodium LESS THAN 5 Blood Type A POSITIVE A POSITIVE Antibody Screen NEGATIVE Crossmatch Leukocyte-Reduced Red Blood Cells Blood Bank Comment White Blood Count 8.1 Red Blood Count 2.33 Hemoglobin 7.3 Hematocrit 21.8 Mean Corpuscular Volume 93.3 Mean Corpuscular Hemoglobin 31.1 Mean Corpuscular Hemoglobin 33.4 Concent Red Cell Distribution Width 15.4 Platelet Count 210 Mean Platelet Volume 8.6 Neutrophils (%) (Auto) 84.9 Lymphocytes (%) (Auto) 8.5 Monocytes (%) (Auto) 6.4 Eosinophils (%) (Auto) 0.1 Basophils (%) (Auto) 0.1 Neutrophils # (Auto) 6.9 Lymphocytes # (Auto) 0.7 Monocytes # (Auto) 0.5 Eosinophils # (Auto) 0.0 Basophils # (Auto) 0.0 CBC Comment DIFF FINAL Differential Comment Sodium Level 143 Potassium Level 3.8 Chloride Level 108 Carbon Dioxide Level 26.1 Anion Gap 9 Blood Urea Nitrogen 53 Creatinine 1.78 Estimat Glomerular Filtration 40 Rate Random Glucose 168 Calcium Level 8.0 Phosphorus Level 4.6 Magnesium Level 2.6 Total Bilirubin 0.4 Aspartate Amino Transf 10 (AST/SGOT) Alanine Aminotransferase LESS THAN 6 (ALT/SGPT) Alkaline Phosphatase 82 Ammonia 39 Total Creatine Kinase 71 Total Protein 5.9 Albumin 1.2 Date/Time Procedure Status Source Growth 11/25/16 11:20 Gram Stain Christopher Batch Sputum Endotracheal Pending 11/25/16 11:20 Sputum Culture Christopher Batch Sputum Endotracheal Pending 11/25/16 05:15 Urine Culture - Final Complete Urine Catheterized Urine NO GROWTH IN 48 HOURS. 11/24/16 14:15 Aerobic Blood Culture - Preliminary Resulted Blood Peripheral NO GROWTH IN 3 DAYS 11/24/16 14:15 Anaerobic Blood Culture - Preliminary Resulted Blood Peripheral NO GROWTH IN 3 DAYS 11/23/16 16:45 Gram Stain - Final Complete Fluid Pleural Fluid 11/23/16 16:45 Body Fluid Culture - Final Complete Fluid Pleural Fluid NO GROWTH IN 72 HRS.--AEROBICALLY OR ... 11/23/16 16:45 Fungal Smear - Final Resulted Fluid Pleural Fluid NO FUNGAL ELEMENTS SEEN. 11/23/16 16:45 Fungal Culture Resulted Fluid Pleural Fluid Pending 11/23/16 16:45 Acid Fast Stain - Final Resulted Fluid Pleural Fluid NO ACID FAST BACILLI SEEN 11/23/16 16:45 Mycobacterial Culture Resulted Fluid Pleural Fluid Pending Imaging Last Impressions Chest X-Ray 11/27/16 0000 Signed Impressions: Service Date/Time: Sunday, November 27, 2016 04:52 - CONCLUSION: 1. Worsening dense consolidation of the right mid and lower lung. 2. Right mid lung cavitary mass again seen not significantly changed. 3. Patchy subpleural airspace opacities of the left lung not significantly changed. Agustin Nolan MD Brain MRI 11/21/16 0000 Signed Impressions: Service Date/Time: November 12:33 - CONCLUSION: Multifocal areas of restricted diffusion primarily in the periventricular and subcortical white matter bilaterally but also cortically based in the right frontal lobe. Findings likely represent ischemic change likely related to septic emboli given the patient's clinical history. No abscess or enhancing lesion is visualized. Agustin Bonner MD Head CT 11/17/16 0600 Signed Impressions: Service Date/Time: Thursday, November 17, 2016 10:39 - CONCLUSION: No significant change has occurred. Deven Urrutia MD Chest CT 11/16/16 0000 Signed Impressions: Service Date/Time: Wednesday, November 16, 2016 20:36 - CONCLUSION: 1. New right chest tube in the posterior superior right pleural space. There continues to be a moderate right pleural effusion primarily seen at the base. Some degree of loculation may be present inferiorly. The effusion does not layer posteriorly. There are scattered punctate areas of air within the pleural space inferiorly on the right. There is a solitary small area of air within the mild left pleural effusion. 2. Numerous irregular masses seen throughout both lungs some which are cavitary. These are nonspecific. Inflammatory masses needs be suspected. The multiplicity raises possibility of septic emboli. Agustin Price MD Abdomen X-Ray 11/15/16 06 Signed Impressions: Service Date/Time: Tuesday, November 15, 2016 03:07 - CONCLUSION: Probable mild ileus involving loops of bowel on the left side. Reba Banerjee MD Abdomen/Pelvis CT 11/14/16 0000 Signed Impressions: Service Date/Time: October 09:55 - CONCLUSION: 1. Multiple loops of fluid-filled small bowel which are larger in caliber in comparison to yesterday's examination although not enlarged by size criteria. This may reflect mild enteritis versus developing mild adynamic ileus. 2. Persistent luminal narrowing at the gastroduodenal junction without definite focal mass. This is of uncertain clinical significance and likely reflects gastric contraction. Gastric mass/metastatic disease is not very likely based on appearance although it cannot be excluded. 3. 2 cm ill-defined hypodense lesion in the left renal mid pole with indeterminate density. Differential considerations include complex cyst versus metastatic disease in this patient with apparent diffuse metastatic disease in the chest. 4. Redemonstration of multiple bilateral cavitary masses at the lung bases with loculated right pleural effusion. Elder Long MD CT Angiography 11/13/16 1524 Signed Impressions: Service Date/Time: Sunday, November 13, 2016 15:50 - CONCLUSION: 1. Multiple cavitary lesions within both lungs with the largest measuring 9.5 cm in the right upper lobe. Differential diagnosis includes infectious and neoplastic etiologies. 2. Moderate sized right pleural effusion with adjacent compressive atelectasis and/or infiltrate. 3. Cardiomegaly and coronary artery calcifications. 4. Subcarinal mediastinal lymphadenopathy. 5. Degenerative changes throughout the thoracic spine. Jed Ponce MD Physical Exam HEENT: Normocephalic; atraumatic CHEST: OETT to vent, course breath sounds. chest tube right chest, 20cm wall suction wiht serous drainage CARDIAC: RRR ABDOMEN: Abdomen soft, mildly distended, Bowel sounds present, flexiseal with brown stool EXTREMITIES: Generalized edema. SKIN: Multiple spotted lesions to ble/feet. 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 Abdomen/Pelvis CT (11/14/16)-----> 1. Multiple loops of fluid- filled small bowel which are larger in caliber in comparison to yesterday's examination although not enlarged by size criteria. This may reflect mild enteritis versus developing mild adynamic ileus. 2. Persistent luminal narrowing at the gastroduodenal junction without definite focal mass. This is of uncertain clinical significance and likely reflects gastric contraction. Gastric mass/metastatic disease is not very likely based on appearance although it cannot be excluded. 3. 2 cm ill-defined hypodense lesion in the left renal mid pole with indeterminate density. Differential considerations include complex cyst versus metastatic disease in this patient with apparent diffuse metastatic disease in the chest. 4. Redemonstration of multiple bilateral cavitary masses at the lung bases with loculated right pleural effusion. IMPROVED. Now sedated, but his pain resolved prior to being intubated. PPI. - Mild ileus/constipation. IMPROVED. Abdomen X-Ray (11/15/16)----> Probable mild ileus involving loops of bowel on the left side. + BM Lactulose, Miralax, Reglan. - Abnormal imaging with persistent luminal narrowing at the gastroduodenal junction without definite focal mass. PPI. Will need EGD during this admission, timing to be determined. - Anemia. Likely multifactorial. No active bleeding. 7.3/21.8. PRBC 1 PRBC. - Elevated alk phosphatase. Normalized. Hepatitis panel negative. - Bilateral cavitary lung lesions, right sided pleural effusion. CT Angiography (11/13/16)----> 1. Multiple cavitary lesions within both lungs with the largest measuring 9.5 cm in the right upper lobe. Differential diagnosis includes infectious and neoplastic etiologies. 2. Moderate sized right pleural effusion with adjacent compressive atelectasis and/or infiltrate. 3. Cardiomegaly and coronary artery calcifications. 4. Subcarinal mediastinal lymphadenopathy. Degenerative changes throughout the thoracic spine. S/P CT , but pt pulled out on 11/15. Pleural fluid with staphylococcus aureus. CT replaced. He became tachypneic on 11/[address] chest (11/16/16) ---> Right hydropneumothorax and bilateral cavitary masses greatest in the right upper lobe. Chest X-Ray (11/27/16)----> 1. Worsening dense consolidation of the right mid and lower lung. 2. Right mid lung cavitary mass again seen not significantly changed. 3. Patchy subpleural airspace opacities of the left lung not significantly changed. Pulm/ID/CCM following. Ancef - Sepsis with endocarditis and septic emboli. Abnormal 2D echo with moderate aortic regurgitation and CHANDNI with large vegetation. S/P CVT evaluation, no plans for surgical intervention at this time. Brain MRI (11/21/16)-----> Multifocal areas of restricted diffusion primarily in the periventricular and subcortical white matter bilaterally but also cortically based in the right frontal lobe. Findings likely represent ischemic change likely related to septic emboli given the patient's clinical history. No abscess or enhancing lesion is visualized. Abx per ID/CCM. Ancef. - Respiratory failure - per CCM s/p bronch, chest tube insertion, intubation PLAN: - TF as tolerated - Cont. PPI - Cont. Miralax - Cont. Lactulose - Cont. Reglan - Abx per ID/CCM - Monitor stool output - Supportive care - Will need EGD at some point. - Further recommendations as the case develops - Pt seen and examined by Dr Figueroa and myself and this note is written on his behalf Charlene Mueller Nov 28, 2016 10:15
[2016-11-28] MEDS: fentaNYL DRIP 250 ML IV SCH ×3 (10:27→23:47)
--- NOTE | 2016-11-28 11:44 | HHI.CCPN ---
Subjective Remarks/Hospital Course 56-year-old male is brought to the emergency department by EMS for evaluation of generalized weakness, confusion for about 2 weeks, and also increasing shortness of breath. His oxygen saturation was 88% on room air. EMS administered breathing treatments and Solu-Medrol 125 mg 1 and placed him on nasal cannula. Patient states that he had been sick for almost 10 days, but he is a poor historian. He had a productive cough, but reports no hematemesis or weight loss. He states that it was his neighbor who made him called EMS. He has no past medical history and last time had seen a doctor was about 15 years ago. He denies any fevers but reports some night sweats and chills. He was tachycardic with a heart rate of 115 bpm, had severe leukocytosis with a white count of 35,000 with 91% neutrophils. CMP shows hyponatremia with a sodium of 126. Lactic acid is 2.4. His Chest x-ray shows large 7.7 x 7.8 cm cavitary right midlung lesion with associated right-sided pleural effusion. Subcentimeter left mid lung pulmonary nodules. Patient received 1 L normal saline bolus and Zosyn 4.5 g and Zithromax 500 mg IV and was placed on TB/ respiratory isolation. He has been being in residential 2 years ago increasing his risk of tuberculosis. CT pulmonary angiogram negative for PE but showed multiple cavitary lesions within both lungs with the largest measuring 9.5 cm in the right upper lobe. Moderate size right pleural effusion. I evaluated the patient in the emergency department. Patient appears critically ill in moderate distress mildly tachypneic, sweating. I performed a bedside ultrasound which showed a right effusion which is large. The thoracentesis was performed and 1 L of cloudy dark pleural fluid was removed. Patient will be continued on Zosyn and Levaquin and vancomycin. ID consulted and I discussed with Dr. Steele-she recommended no empiric treatments for TB. 11/14/16: Patient seen and examined complaints of severe epigastric and periumbilical abdominal pain. Patient remains oriented to person. His white count is slightly improved from 35,000-28,9000. Na improved to 136. I have ordered a STAT CT abd/pelvis with IV contrast. Chest x-ray shows reaccumulation of right pleural effusion-fluid chemistries are pending but cell count indicates at least a parapneumonic effusion and patient will need a pigtail chest tube 11/15: Patient pulled his right-sided pigtail catheter out overnight last night. Currently nasal cannula in no acute distress. Afebrile. Continues to have a leukocytosis. 11/16: Currently on room air. Hold out his IVs reportedly overnight last night. Requesting diet. Awake and alert and following commands. 11/17: Intubated yesterday due to acute hypercapnic respiratory failure. Hypoxic post intubation requiring right chest tube placement, bronchoscopy and Flolan. Bronchoscopy revealed thick mucous plugging at bilateral right and left mainstem which were clear. Improved oxygenation over the past 12 hours. Afebrile. 11/18 Patient remains sedated with Diprivan, Fentanyl and intubated. On Vasopressin and Neosyn 120 mics. 11/19 Patient is sedated with Diprivan, Fentanyl and intubated. Afebrile. Off all pressors. Afebrile. WBC is trending down 30 today from 50. 11/20: Remains severely septic and encephalopathic even though weaned off all pressors. White count still elevated but trending down. Became extremely tachycardic and tachypneic on lowering sedation. We'll check MRI of the brain to rule out embolic infarct. Family at the bedside updated 11/21 Remains heavily sedated, remains encephalopathic. MRI brain is pending. Family is at bedside. Remains critically with resp failure severe from endocarditis, now unable to wean off the ventilator due to severe metabolic encephalopathy 11/22 No events overnight. Sedated with Diprivan, fentanyl and intubated. Afebrile. MRI brain yesterday showed ischemic changes likely related to septic emboli. 11/23: Patient remains encephalopathic, severe hyponatremia possible contributing , Na is 157 today. Currently on Precedex and fentanyl. CXR shows increasing L effusion 11/24: Patient more awake today. Follows Commands but did not tolerate spontaneous breathing trials. Had left pigtail chest tube placed yesterday 1.6 L transudative fluid removal since placement 11/25 Patient is sedated with Diprivan, Fentanyl and intubated. T:99.9 11/26 No events overnight. Sedated and intubated. Patient was on CPAP x 3 hrs yesterday then became tachypneic. 11/27: Resting in bed comfortably on Diprivan at 40 mics grams per kilogram per minute and fentanyl drip at 200 an hour. Tolerated PSV trial 2 hours yesterday before becoming tachypnea. Positive BM via fecal containment device 1100 cc. Yesterday according to RN was following commands. Subjective 11/28: Currently afebrile. Tolerating PSV trials 1.5 hours today for became tachypneic. Awake and alert and follows commands. Neurologically intact. Positive BM. Objective Vital Signs Date Time Temp Pulse Resp B/P Pulse Ox O2 Delivery O2 Flow Rate FiO2 11/28/16 10:00 100 28 126/61 98 11/28/16 09:15 35 11/28/16 08:00 98.1 11/25/16 08:24 Ventilator Intake and Output 11/27/16 11/27/16 11/28/16 08:00 16:00 00:00 Intake Total 1740 ml 1693 ml 1223 ml Output Total 505 ml 510 ml 250 ml Balance 1235 ml 1183 ml 973 ml Result Diagram: 11/28/16 0509 11/28/16 0509 Other Results Microbiology Date/Time Procedure Status Source Growth 11/25/16 11:20 Gram Stain Christopher Batch Sputum Endotracheal Pending 11/25/16 11:20 Sputum Culture Christopher Batch Sputum Endotracheal Pending 11/25/16 05:15 Urine Culture - Final Complete Urine Catheterized Urine NO GROWTH IN 48 HOURS. 11/24/16 14:15 Aerobic Blood Culture - Preliminary Resulted Blood Peripheral NO GROWTH IN 4 DAYS 11/24/16 14:15 Anaerobic Blood Culture - Preliminary Resulted Blood Peripheral NO GROWTH IN 4 DAYS 11/23/16 16:45 Gram Stain - Final Complete Fluid Pleural Fluid 11/23/16 16:45 Body Fluid Culture - Final Complete Fluid Pleural Fluid NO GROWTH IN 72 HRS.--AEROBICALLY OR ... 11/23/16 16:45 Fungal Smear - Final Resulted Fluid Pleural Fluid NO FUNGAL ELEMENTS SEEN. 11/23/16 16:45 Fungal Culture Resulted Fluid Pleural Fluid Pending 11/23/16 16:45 Acid Fast Stain - Final Resulted Fluid Pleural Fluid NO ACID FAST BACILLI SEEN 11/23/16 16:45 Mycobacterial Culture Resulted Fluid Pleural Fluid Pending Imaging Last 72 hours Impressions Chest X-Ray 11/27/16 0000 Signed Impressions: Service Date/Time: Sunday, November 27, 2016 04:52 - CONCLUSION: 1. Worsening dense consolidation of the right mid and lower lung. 2. Right mid lung cavitary mass again seen not significantly changed. 3. Patchy subpleural airspace opacities of the left lung not significantly changed. Agustin Nolan MD Objective Remarks GENERAL: 56-year-old male, critically ill currently orotracheally intubated SKIN: Warm and dry. Scattered skin lesions erythematous predominantly left lower extremity HEAD: Normocephalic and atraumatic. EYES: No injection, drainage. Pupils equally round and reactive around 3 mm bilaterally and reactive to 2 mm. ENT: No nasal drainage noted. Oropharynx is clear. Orotracheally intubated NECK: Supple. No JVD or thyromegaly or lymphadenopathy. CARDIOVASCULAR: Tachycardic, RR. S1, S2. No S4. Aortic regurgitation murmur not appreciated. RESPIRATORY: Diminished breath sounds bilaterally. Mild expiratory wheezing and few crackles. Right chest tube 150 ml output, L pigtail 0 ml output in 24 hours GASTROINTESTINAL: Abdomen is soft, mildly distended no rebound or guarding on examination. Hypoactive bowel sounds are appreciated MUSCULOSKELETAL: 1+ pitting edema bilateral lower extremities. Multiple erythematous raised lesions on bilateral lower extremity predominantly left lower leg NEUROLOGICAL: Awake, Moving all 4 extremity spontaneously and follows commands Date of Insertion: Nov 16, 2016 Line: Central Venous Catheter Side: Left Location: Internal, Jugular A/P Assessment and Plan NEURO/PSYCH: Metabolic encephalopathy Septic brain emboli On Diprivan at 40 mg/kg/m and Fentanyl infusion at 200 an hour for sedation/ analgesia while intubated. Goal of RASS -2. Daily sedation vacation. steadily improving neuro exam EEG 11/24: Generalized encephalopathy without any significant epileptic activity. MRI brain 11/21: Ischemic changes throughout white matter likely related to septic emboli. Neuro consulted Dr. Hernandez CT head 11/17 revealed no acute intracranial findings currently no signs of gross embolic events. On Thiamine/MVI/Folic acid RESP: Bilateral cavitary lung lesions/most likely cavitating pneumonia from staph aureus Acute respiratory failure Large right loculated pleural effusion/empyema Left pleural effusion PRVC 16/600/1.05/23/39. Currently on PSV trial 04/22 at 40% Continue with vent support keep sat >92%. Duo nebs every 4 hours with albuterol nebs every 2 hours. Vent bundle. Daily SBT, if no significant progress in weaning trials then he might need trach. Intubated on 11/16 Right-sided chest tube #28 English- monitor CT drainage( Drained 350 ml in 24 hours) -20 cm H2O Left-sided chest tube #10 English- placed 11/24/16-drained 15 ml in 24 hrs -20 cm H2O - Right thoracentesis with 1 L cloudy yellow fluid removed, fluid cell studies WBC 2,600, - Patient status post pigtail catheter placement 11/14, 445 cc prior pulled out 11/15. Evaluated by Dr. Samuels/CT surgery. Per his recommendations, No indication for decortication at this time CV: Aortic valve endocarditis/large vegetation Sinus tachycardia Atrial fibrillation with RVR early normal sinus rhythm Elevated troponin - likely rate dependent Monitor HR and BP keep MAP>65mmHg - Stress dose steroids-Hydrocortisone 50mg IV Q12 - 2-D echocardiogram revealed EF 55-60%. Moderate AR. CHANDNI revealed 17 mm x 17 millimeter mobile mass on aortic valve. limited echo 11/22 Persistent vegetation - CT surgery. Recommendations no intervention at this time GI: Hypoalbuminemia Moderate protein calorie malnutrition/acute Continue tube feeds with Glucerna 1.5@ 55 cc an hour. IV Protonix for GI prophylaxis. MiraLAX twice a day for bowel regimen Reglan for bowel motility - CT of the abdomen pelvis with IV contrast revealed possible ileus., Gastric contraction at gastric duodenal junction. 2 mm renal cyst. - KUB 11/15 revealed improving mild ileus. GI is following. : Santana catheter has been placed for accurate I's and O's in a critically ill patient ID: Severe sepsis New fever Multilobar cavitating pneumonia secondary staph aureus Staph aureus empyema - Continue with abx per ID ( IV Ancef) monitor for signs of infections ( Fever, WBC) WBC is trending down - Gentamicin discontinued 11/26 due to elevated creatinine currently 1.8 Pertinent cultures 11/13 - blood cultures 2 - staph aureus 11/13 and 11/14- pleural fluid- staph aureus 11/14- sputum- staph aureus 11/15 - blood cultures 2 -staph aureus 11/16 - Bronch samples: Staph Aureus 11/16 Sputum: Staph Aureus 11/19 - blood cultures 2 - no growth 11/23 - pleural fluid - no growth 11/24 - blood cultures 2 - no growth 11/25 - UA - negative 11/25 - sputum - pending HEME: Leukocytosis Normocytic anemia - Monitor CBC, CMP, coags ENDO: SSI with accuchecks for glycemic control TSH 0.6. FEN: Hypernatremia - resolved Currently on D5 water at 100 cc now. Patient is very edematous/volume overload. We'll discontinue Free water flushes at 250 cc every 8 hours. Follow-up on sodium in a.m. RENAL: Acute kidney injury Creatinine currently 1.7. Check urine eosinophil/electrolytes Monitor urine output Accurate I's and O's Avoid nephrotoxic drugs PROPH: - Bilateral lower extremity SCDs. Heparin SQ, IV Protonix for prophylaxis LINES: - Left IJ CVL placed 11/16 discontinued unknown time. Currently with peripheral IVs Palliative care is following Critical Care: The total critical care time was 30 minutes. Time to perform other separately billable procedures was not included in the critical care time. Josh Saunders MD Nov 28, 2016 11:44
[2016-11-28] MEDS ORDERED: ALBUMIN HUMAN 5% 25 GM/500 ML BOTTLE IV ONE (12:00)
--- NOTE | 2016-11-28 15:26 | HHI.IDPN ---
Note Infectious Disease Note On the vent. Somnolent. Failed CPAP. Afebrile. chest tube draining. D/W RN. Large vegetation on AV and moderate aortic regurg on CHANDNI. Culture of blood 11/13, 11/15, 11/16. - Staph aureus. 11/19 no growth. Culture of pleural fluid 11/14 - staph aureus. Presented to the emergency department with a 2-week history of weakness. He was noted to have low oxygen saturation. He reported that he had productive cough over the past couple of weeks and was experiencing shortness of breath. ALLERGIES NO KNOWN DRUG ALLERGIES. ANTIBIOTICS: Gentamycin. Ancef. OBJECTIVE: Vital Signs Date Time Temp Pulse Resp B/P Pulse Ox O2 Delivery O2 Flow Rate FiO2 11/28/16 13:18 100 35 11/28/16 11:00 40 11/28/16 10:44 99 35 11/28/16 10:00 100 28 126/61 98 11/28/16 10:00 100 11/28/16 09:30 95 27 131/59 100 11/28/16 09:15 35 11/28/16 09:12 35 11/28/16 09:12 100 35 11/28/16 09:00 90 18 111/54 100 11/28/16 08:00 40 11/28/16 08:00 92 11/28/16 08:00 98.1 92 15 109/54 100 11/28/16 07:32 100 35 11/28/16 07:00 96 16 113/53 100 11/28/16 06:00 91 11/28/16 04:00 40 11/28/16 04:00 88 11/28/16 04:00 97.8 88 19 103/53 97 11/28/16 03:50 96 35 11/28/16 02:00 91 11/28/16 01:33 93 35 11/28/16 00:00 97.2 86 17 101/50 98 11/28/16 00:00 86 11/28/16 00:00 40 11/27/16 22:21 98 35 11/27/16 22:00 84 11/27/16 20:00 40 11/27/16 20:00 80 11/27/16 20:00 97.6 80 20 99/51 97 11/27/16 20:00 40 11/27/16 19:56 96 35 11/27/16 19:00 86 11/27/16 18:30 88 11/27/16 18:00 90 11/27/16 17:27 99.1 90 28 110/59 100 11/27/16 17:05 98.4 88 24 109/59 98 11/27/16 17:00 87 23 109/59 100 11/27/16 17:00 87 11/27/16 16:00 89 11/27/16 16:00 40 11/27/16 16:00 98.4 89 25 111/57 98 11/27/16 11/27/16 11/28/16 15:00 23:00 07:00 Intake Total 1693 ml 1223 ml 862 ml Output Total 510 ml 250 ml 795 ml Balance 1183 ml 973 ml 67 ml IV Total 741 ml 714 ml 326 ml Tube Feeding 602 ml 389 ml 416 ml Other 350 ml 120 ml 120 ml Output Urine Total 400 ml 250 ml 650 ml Stool Total 0 ml 100 ml Chest Tube Drainage Total 110 ml 0 ml 45 ml # Voids 100 Laboratory Tests Test 11/27/16 11/28/16 05:32 05:09 White Blood Count 12.1 TH/MM3 8.1 TH/MM3 Red Blood Count 2.28 MIL/MM3 2.33 MIL/MM3 Hemoglobin 7.0 GM/DL 7.3 GM/DL Hematocrit 21.9 % 21.8 % Mean Corpuscular Volume 95.6 FL 93.3 FL Mean Corpuscular Hemoglobin 30.4 PG 31.1 PG Mean Corpuscular Hemoglobin 31.8 % 33.4 % Concent Red Cell Distribution Width 15.0 % 15.4 % Platelet Count 214 TH/MM3 210 TH/MM3 Mean Platelet Volume 9.1 FL 8.6 FL Neutrophils (%) (Auto) 88.5 % 84.9 % Lymphocytes (%) (Auto) 6.0 % 8.5 % Monocytes (%) (Auto) 5.1 % 6.4 % Eosinophils (%) (Auto) 0.2 % 0.1 % Basophils (%) (Auto) 0.2 % 0.1 % Neutrophils # (Auto) 10.7 TH/MM3 6.9 TH/MM3 Lymphocytes # (Auto) 0.7 TH/MM3 0.7 TH/MM3 Monocytes # (Auto) 0.6 TH/MM3 0.5 TH/MM3 Eosinophils # (Auto) 0.0 TH/MM3 0.0 TH/MM3 Basophils # (Auto) 0.0 TH/MM3 0.0 TH/MM3 CBC Comment DIFF FINAL DIFF FINAL Differential Comment Laboratory Tests Test 11/27/16 11/28/16 05:32 05:09 Sodium Level 146 MEQ/L 143 MEQ/L Potassium Level 3.8 MEQ/L 3.8 MEQ/L Chloride Level 111 MEQ/L 108 MEQ/L Carbon Dioxide Level 27.6 MEQ/L 26.1 MEQ/L Anion Gap 7 MEQ/L 9 MEQ/L Blood Urea Nitrogen 46 MG/DL 53 MG/DL Creatinine 1.70 MG/DL 1.78 MG/DL Estimat Glomerular Filtration 42 ML/MIN 40 ML/MIN Rate Random Glucose 127 MG/DL 168 MG/DL Calcium Level 7.9 MG/DL 8.0 MG/DL Phosphorus Level 3.6 MG/DL 4.6 MG/DL Magnesium Level 2.4 MG/DL 2.6 MG/DL Total Bilirubin 0.3 MG/DL 0.4 MG/DL Aspartate Amino Transf 14 U/L 10 U/L (AST/SGOT) Alanine Aminotransferase 8 U/L LESS THAN 6 U/L (ALT/SGPT) Alkaline Phosphatase 94 U/L 82 U/L Total Protein 6.0 GM/DL 5.9 GM/DL Albumin 1.2 GM/DL 1.2 GM/DL Ammonia 39 MCMOL/L Total Creatine Kinase 71 U/L IMAGING: Chest X-Ray 11/27/16 0000 Signed Impressions: Service Date/Time: Sunday, November 27, 2016 04:52 - CONCLUSION: 1. Worsening dense consolidation of the right mid and lower lung. 2. Right mid lung cavitary mass again seen not significantly changed. 3. Patchy subpleural airspace opacities of the left lung not significantly changed. Agustin Nolan MD Chest X-Ray 11/25/16 0600 Signed Impressions: Service Date/Time: Friday, November 25, 2016 04:41 - CONCLUSION: Mild increased interstitial vascular prominence. Stable right basilar loculated pneumothorax. Stable right lung cavitary lesion. Support devices remain in good position. Jose A Escobedo MD Chest X-Ray 11/24/16 0000 Signed Impressions: Service Date/Time: Thursday, November 24, 2016 10:31 - CONCLUSION: Similar to previous study. The cavitary lesion right lung is stable. Right-sided chest remains in good position. Residual air right lower lateral costophrenic angle. Tubes and catheters in good position. Sawyer Robertson MD Chest X-Ray 11/23/16599 Signed Impressions: Service Date/Time: Wednesday, November 23, 2016 03:50 - CONCLUSION: 1. Stable appearance of the chest of a 5.7 cm cavitary lesion in the right upper lobe, left basilar consolidation/effusion and haziness over the left chest possibly representing a posterior layering effusion. 2. Peripherally positioned nodular densities in the left mid chest. These are all stable. 3. Right-sided thoracostomy tube without effusion. There may be a small loculated pneumothorax laterally in the right base, however. 4. Cardiomegaly David Rojas MD Brain MRI 11/21/16 Signed Impressions: Service Date/Time: November 12:33 - CONCLUSION: Multifocal areas of restricted diffusion primarily in the periventricular and subcortical white matter bilaterally but also cortically based in the right frontal lobe. Findings likely represent ischemic change likely related to septic emboli given the patient's clinical history. No abscess or enhancing lesion is visualized. Agustin Bonner MD Head CT 11/17/16599 Signed Impressions: Service Date/Time: Thursday, November 17, 2016 10:39 - CONCLUSION: No significant change has occurred. Deven Urrutia MD Chest X-Ray 11/17/16599 Signed Impressions: Service Date/Time: Thursday, November 17, 2016 03:36 - CONCLUSION: Diffuse airspace disease a large cavity in the right midlung zone is unchanged. Tubes and catheter are in good position. Sawyer Robertson MD Chest CT 11/16/16 0000 Signed Impressions: Service Date/Time: Wednesday, November 16, 2016 20:36 - CONCLUSION: 1. New right chest tube in the posterior superior right pleural space. There continues to be a moderate right pleural effusion primarily seen at the base. Some degree of loculation may be present inferiorly. The effusion does not layer posteriorly. There are scattered punctate areas of air within the pleural space inferiorly on the right. There is a solitary small area of air within the mild left pleural effusion. 2. Numerous irregular masses seen throughout both lungs some which are cavitary. These are nonspecific. Inflammatory masses needs be suspected. The multiplicity raises possibility of septic emboli. Agustin Price MD Abdomen X-Ray 11/15/16 0600 Signed Impressions: Service Date/Time: Tuesday, November 15, 2016 03:07 - CONCLUSION: Probable mild ileus involving loops of bowel on the left side. Reba Banerjee MD Abdomen/Pelvis CT 11/14/16 0000 Signed Impressions: Service Date/Time: October 09:55 - CONCLUSION: 1. Multiple loops of fluid-filled small bowel which are larger in caliber in comparison to yesterday's examination although not enlarged by size criteria. This may reflect mild enteritis versus developing mild adynamic ileus. 2. Persistent luminal narrowing at the gastroduodenal junction without definite focal mass. This is of uncertain clinical significance and likely reflects gastric contraction. Gastric mass/metastatic disease is not very likely based on appearance although it cannot be excluded. 3. 2 cm ill-defined hypodense lesion in the left renal mid pole with indeterminate density. Differential considerations include complex cyst versus metastatic disease in this patient with apparent diffuse metastatic disease in the chest. 4. Redemonstration of multiple bilateral cavitary masses at the lung bases with loculated right pleural effusion. Elder Long MD CT Angiography 11/13/16 1328 Signed Impressions: Service Date/Time: Sunday, November 13, 2016 15:50 - CONCLUSION: 1. Multiple cavitary lesions within both lungs with the largest measuring 9.5 cm in the right upper lobe. Differential diagnosis includes infectious and neoplastic etiologies. 2. Moderate sized right pleural effusion with adjacent compressive atelectasis and/or infiltrate. 3. Cardiomegaly and coronary artery calcifications. 4. Subcarinal mediastinal lymphadenopathy. 5. Degenerative changes throughout the thoracic spine. Jed Ponce MD PHYSICAL EXAMINATION GENERAL: On the vent. HEENT: No icterus. Oropharynx moist mucosa without lesions. NECK: Supple without adenopathy. LUNGS: Coarse bilateral rhonchi. HEART: Normal S1-S2 without audible murmurs, rubs or gallops. ABDOMEN: Bowel sounds present, soft. Distended. Non tender. EXTREMITIES: No clubbing or cyanosis or edema. SKIN: Punctate erythematous lesions at the lower extremities including the left tibia, left foot and right foot which blanches with palpation. No diffuse rash. NEURO: Sedated. Calm. PSYCH: unable to assess. IMPRESSION 1. Sepsis. Endocarditis Aortic valve Staph aureus (MSSA). 2. Cavitary pulmonary lesions. 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 3. Pneumonia/parapneumonic effusion- MSSA. 4. Skin lesions which potentially could be embolic. 5. Leukocytosis secondary to infection. WBC improved. Now normal. 6. Fever secondary to infection. Improved. 7. Vent dependent respiratory failure. RECOMMENDATIONS 1. Continue IV Ancef. 2. Monitor renal function. 3. Monitor temp. 4. follow clinical status. Slava Garcia MD Nov 28, 2016 15:26
--- NOTE | 2016-11-28 15:28 | HHI.HCPN ---
Reason for visit a. To assist with evaluation and management of symptoms including: dyspnea b. To assist medical decision maker(s) with: better understanding of current medical conditions; weighing benefits/burdens of medical treatment options; making medical treatment decisions. . Subjective/Interval History Not tolerating cpap trials. On my visit pt remains intubated and is sedated. Family/friend interactions Spoke with mom and goals are aggressive and would consent to trach and peg. Advance Directives Living Will: Never completed Health Care Surrogate: Copy in medical record Durable Power of Pc Tech: Never completed Advance Directive Specifics Health Care Surrogate(s): The patient lacks capacity for decision-making, and it is uncertain whether he will regain that capacity. Initially, he had named his landlord Kerrie Madeline as healthcare surrogate on 11/14/16, but she makes it very clear by telephone on 11/18/16 that "since there is family around, I do not want to be the decision-maker for him in any way." I spoke with the patient's 21-year-old son Alexei Mohan [phone] in [place] by telephone, and he reports that he also does not want to be involved in the decision making; "he has not had any impact or played any role in my life, so that would not be appropriate for me to make decisions for him." Thus, the patient's mother Nellie Ying is his healthcare proxy decision-maker. Objective Vital Signs Date Time Temp Pulse Resp B/P Pulse Ox O2 Delivery O2 Flow Rate FiO2 11/28/16 13:18 100 35 11/28/16 11:00 40 11/28/16 10:44 99 35 11/28/16 10:00 100 28 126/61 98 11/28/16 10:00 100 11/28/16 09:30 95 27 131/59 100 11/28/16 09:15 35 11/28/16 09:12 35 11/28/16 09:12 100 35 11/28/16 09:00 90 18 111/54 100 11/28/16 08:00 40 11/28/16 08:00 92 11/28/16 08:00 98.1 92 15 109/54 100 11/28/16 07:32 100 35 11/28/16 07:00 96 16 113/53 100 11/28/16 06:00 91 11/28/16 04:00 40 11/28/16 04:00 88 11/28/16 04:00 97.8 88 19 103/53 97 11/28/16 03:50 96 35 11/28/16 02:00 91 11/28/16 01:33 93 35 11/28/16 00:00 97.2 86 17 101/50 98 11/28/16 00:00 86 11/28/16 00:00 40 11/27/16 22:21 98 35 11/27/16 22:00 84 11/27/16 20:00 40 11/27/16 20:00 80 11/27/16 20:00 97.6 80 20 99/51 97 11/27/16 20:00 40 11/27/16 19:56 96 35 11/27/16 19:00 86 11/27/16 18:30 88 11/27/16 18:00 90 11/27/16 17:27 99.1 90 28 110/59 100 11/27/16 17:05 98.4 88 24 109/59 98 11/27/16 17:00 87 23 109/59 100 11/27/16 17:00 87 11/27/16 16:00 89 11/27/16 16:00 40 11/27/16 16:00 98.4 89 25 111/57 98 Intake & Output 11/28/16 11/28/16 07:00 19:00 Intake Total 2085 ml Output Total 1045 ml Balance 1040 ml IV Total 1040 ml Tube Feeding 805 ml Other 240 ml Output Urine Total 900 ml Stool Total 100 ml Chest Tube Drainage Total 45 ml # Voids 100 Physical Exam CONSTITUTIONAL/GENERAL: This is an adequately nourished patient, on the ventilator in [facility] [place]. TUBES/LINES/DRAINS: Central line, endotracheal tube, Santana catheter SKIN: No jaundice, rashes. He has multiple small, healing punctures and abrasions about his feet and ankles (reportedly from walking barefoot). CARDIOVASCULAR: Regular rate and rhythm with grade 2 systolic murmur. No JVD. Peripheral pulses symmetric. RESPIRATORY/CHEST: Symmetric, unlabored respirations. Scattered rhonchi GASTROINTESTINAL: Abdomen soft, nondistended. No hepato-splenomegaly, or palpable masses. No guarding. Bowel sounds present. MUSCULOSKELETAL: Extremities without clubbing, cyanosis, or edema. No joint tenderness or effusion noted. No mottling or clubbing. He has multiple small punctures and abrasions about his feet and ankles (reportedly from walking barefoot). NEUROLOGICAL: Opens eyes, tracks, follows some simple commands, but currently sedated PSYCHIATRIC: could not evaluated . Diagnostic Tests Laboratory Laboratory Tests Test 11/26/16 11/26/16 11/27/16 11/27/16 04:40 09:55 05:32 10:00 White Blood Count 12.4 TH/MM3 12.1 TH/MM3 (4.0-11.0) (4.0-11.0) Red Blood Count 2.31 MIL/MM3 2.28 MIL/MM3 (4.50-5.90) (4.50-5.90) Hemoglobin 7.2 GM/DL 7.0 GM/DL (13.0-17.0) (13.0-17.0) Hematocrit 22.1 % 21.9 % (39.0-51.0) (39.0-51.0) Mean Corpuscular Volume 95.6 FL 95.6 FL (80.0-100.0) (80.0-100.0) Mean Corpuscular Hemoglobin 31.1 PG 30.4 PG (27.0-34.0) (27.0-34.0) Mean Corpuscular Hemoglobin 32.6 % 31.8 % Concent (32.0-36.0) (32.0-36.0) Red Cell Distribution Width 15.4 % 15.0 % (11.6-17.2) (11.6-17.2) Platelet Count 236 TH/MM3 214 TH/MM3 (150-450) (150-450) Mean Platelet Volume 8.6 FL 9.1 FL (7.0-11.0) (7.0-11.0) Neutrophils (%) (Auto) 89.4 % 88.5 % (16.0-70.0) (16.0-70.0) Lymphocytes (%) (Auto) 5.7 % 6.0 % (9.0-44.0) (9.0-44.0) Monocytes (%) (Auto) 4.8 % (0.0-8.0) 5.1 % (0.0-8.0) Eosinophils (%) (Auto) 0.1 % (0.0-4.0) 0.2 % (0.0-4.0) Basophils (%) (Auto) 0.0 % (0.0-2.0) 0.2 % (0.0-2.0) Neutrophils # (Auto) 11.1 TH/MM3 10.7 TH/MM3 (1.8-7.7) (1.8-7.7) Lymphocytes # (Auto) 0.7 TH/MM3 0.7 TH/MM3 (1.0-4.8) (1.0-4.8) Monocytes # (Auto) 0.6 TH/MM3 0.6 TH/MM3 (0-0.9) (0-0.9) Eosinophils # (Auto) 0.0 TH/MM3 0.0 TH/MM3 (0-0.4) (0-0.4) Basophils # (Auto) 0.0 TH/MM3 0.0 TH/MM3 (0-0.2) (0-0.2) CBC Comment DIFF FINAL DIFF FINAL Differential Comment Sodium Level 147 MEQ/L 146 MEQ/L (136-145) (136-145) Potassium Level 3.6 MEQ/L 3.8 MEQ/L (3.5-5.1) (3.5-5.1) Chloride Level 110 MEQ/L 111 MEQ/L (98-107) (98-107) Carbon Dioxide Level 29.9 MEQ/L 27.6 MEQ/L (21.0-32.0) (21.0-32.0) Anion Gap 7 MEQ/L (5-15) 7 MEQ/L (5-15) Blood Urea Nitrogen 41 MG/DL (7-18) 46 MG/DL (7-18) Creatinine 1.22 MG/DL 1.70 MG/DL (0.60-1.30) (0.60-1.30) Estimat Glomerular Filtration 62 ML/MIN (>89) 42 ML/MIN (>89) Rate Random Glucose 134 MG/DL 127 MG/DL (74-106) (74-106) Calcium Level 7.9 MG/DL 7.9 MG/DL (8.5-10.1) (8.5-10.1) Phosphorus Level 3.6 MG/DL 3.6 MG/DL (2.5-4.9) (2.5-4.9) Magnesium Level 2.5 MG/DL 2.4 MG/DL (1.5-2.5) (1.5-2.5) Blood Gas Puncture Site LT RADIAL Blood Gas Patient Temperature 98.6 Blood Gas HCO3 28 mmol/L (22-26) Blood Gas Base Excess 2.6 mmol/L (-2-2) Blood Gas Oxygen Saturation 95 % (90-100) Arterial Blood pH 7.36 (7.380-7.420) Arterial Blood Partial 51 mmHg (38-42) Pressure CO2 Arterial Blood Partial 106 mmHg Pressure O2 (61-120) Arterial Blood Oxygen Content 17.1 Vol % (12.0-20.0) Arterial Blood 1.5 % (0-4) Carboxyhemoglobin Arterial Blood Methemoglobin 1.1 % (0-2) Blood Gas Hemoglobin 12.8 G/DL (12.0-16.0) Oxygen Delivery Device VENTILATOR Blood Gas Ventilator Setting PRVC 16/600/1.0/+5 Blood Gas Inspired Oxygen 40 % Total Bilirubin 0.3 MG/DL (0.2-1.0) Aspartate Amino Transf 14 U/L (15-37) (AST/SGOT) Alanine Aminotransferase 8 U/L (12-78) (ALT/SGPT) Alkaline Phosphatase 94 U/L (45-117) Total Protein 6.0 GM/DL (6.4-8.2) Albumin 1.2 GM/DL (3.4-5.0) Urine Eosinophils NONE SEEN /HPF (NONE SEEN) Urine Random Creatinine 105.4 MG/DL Urine Random Sodium LESS THAN 5 MEQ/L Test 11/27/16 11/27/16 11/28/16 13:18 15:41 05:09 Blood Type A POSITIVE A POSITIVE Antibody Screen NEGATIVE Crossmatch Leukocyte-Reduced Red Blood Cells Blood Bank Comment White Blood Count 8.1 TH/MM3 (4.0-11.0) Red Blood Count 2.33 MIL/MM3 (4.50-5.90) Hemoglobin 7.3 GM/DL (13.0-17.0) Hematocrit 21.8 % (39.0-51.0) Mean Corpuscular Volume 93.3 FL (80.0-100.0) Mean Corpuscular Hemoglobin 31.1 PG (27.0-34.0) Mean Corpuscular Hemoglobin 33.4 % Concent (32.0-36.0) Red Cell Distribution Width 15.4 % (11.6-17.2) Platelet Count 210 TH/MM3 (150-450) Mean Platelet Volume 8.6 FL (7.0-11.0) Neutrophils (%) (Auto) 84.9 % (16.0-70.0) Lymphocytes (%) (Auto) 8.5 % (9.0-44.0) Monocytes (%) (Auto) 6.4 % (0.0-8.0) Eosinophils (%) (Auto) 0.1 % (0.0-4.0) Basophils (%) (Auto) 0.1 % (0.0-2.0) Neutrophils # (Auto) 6.9 TH/MM3 (1.8-7.7) Lymphocytes # (Auto) 0.7 TH/MM3 (1.0-4.8) Monocytes # (Auto) 0.5 TH/MM3 (0-0.9) Eosinophils # (Auto) 0.0 TH/MM3 (0-0.4) Basophils # (Auto) 0.0 TH/MM3 (0-0.2) CBC Comment DIFF FINAL Differential Comment Sodium Level 143 MEQ/L (136-145) Potassium Level 3.8 MEQ/L (3.5-5.1) Chloride Level 108 MEQ/L (98-107) Carbon Dioxide Level 26.1 MEQ/L (21.0-32.0) Anion Gap 9 MEQ/L (5-15) Blood Urea Nitrogen 53 MG/DL (7-18) Creatinine 1.78 MG/DL (0.60-1.30) Estimat Glomerular Filtration 40 ML/MIN (>89) Rate Random Glucose 168 MG/DL (74-106) Calcium Level 8.0 MG/DL (8.5-10.1) Phosphorus Level 4.6 MG/DL (2.5-4.9) Magnesium Level 2.6 MG/DL (1.5-2.5) Total Bilirubin 0.4 MG/DL (0.2-1.0) Aspartate Amino Transf 10 U/L (15-37) (AST/SGOT) Alanine Aminotransferase LESS THAN 6 (ALT/SGPT) U/L (12-78) Alkaline Phosphatase 82 U/L (45-117) Ammonia 39 MCMOL/L (11-32) Total Creatine Kinase 71 U/L (39-308) Total Protein 5.9 GM/DL (6.4-8.2) Albumin 1.2 GM/DL (3.4-5.0) Result Diagram: 11/28/16 0509 11/28/16 0509 Procedures Thoracentesis and right (pigtail) thoracostomy 11/14/16 INTUBATION 11/16/16 Bronchoscopy 11/16/16 . Assessment and Plan Disease Oriented Problem List: (1) respiratory failure (2) severe encephalopathy, likely due to sepsis and multiple embolic infarctions (3) septic shock (4) MSSA sepsis (5) multiple pulmonary cavitary lesions (6) aortic valve endocarditis (7) aortic regurgitation Symptom Scale: (1) dyspnea 0-10 Scale: Unable to quantify (2) pain 0-10 Scale: Unable to quantify Pertinent Non-Medical Issues Psychosocial: Originally from [place], living here for 30 years. Never . One estranged son in [place]. Spiritual: The patient is not and has not ever been spiritual or episcopal person according to the family, but the family does want the caustic purification operator to continue to come and visit. Legal: The patient lacks capacity for decision-making, and it it is uncertain whether he will regain that capacity. Initially, he had named his landlord Kerrie Correa as healthcare surrogate, but she makes it very clear by telephone [phone] on 11/18/16 that "since there is family around, I do not want to be the decision-maker for him in any way." I spoke with the patient's 21-year-old son Alexei Mohan [phone] in [place] by telephone, and he reports that he also does not want to be involved in the decision making; "he has not had any impact or played any role in my life, so that would not be appropriate for me to make decisions for him." Thus, the patient's mother Nellie Ying is his healthcare proxy decision-maker. Ethical issues impacting care: None . Important Contacts Mother: Nellie Ying <----> PROXY DECISION-MAKER -- [phone] Son: (estranged for many years) Adarsh Mohan [phone] . Prognosis The patient has multisystem organ failure and septic shock with a large vegetation on his aortic valve, and his overall prognosis is quite guarded at best, and poor at worse. At risk for decompensation, sudden setback and . . Code Status: Full Code Plan ==FULL CODE ==DECISION-MAKING: The patient lacks capacity for decision-making at this time , and it is uncertain whether he will regain that capacity. The patient's mother Nellie Ying is his healthcare proxy decision-maker. ==Goals of Care: Met with pt's Mother, Sister and Friend today 11/26/2016. Met with them and review course of hospitalization and medical decisions to be made. Understand pt has cardiac vegetation and that without surgery, likely will not clear infection, and overall poor prognosis. At this point in time, not a surgical candidate. Reviewed thus far he is unable to be weaned off the ventilator and likely will need decision on trach and peg by this Friday. Reviewed what peg and trach means, and his overall prognosis, if he is able to leave and survive hospitalization, he is as risk for multiple hospitalization and visits. Reviewed code status. Spoke with mother 11/28/2016 again, and they have decided to continue aggressive measure and consent to peg and trach. ==SYMPTOMS: Any pain or dyspnea is being managed by appropriate sedation and the ventilator, and I have no additional medication recommendations at this time. ==Palliative Care will continue to follow the patient during this hospitalization. . Time Spent Total Floor Time (mins): 35 Face to Face Time (mins): 20 Attestation To help prompt me to consider important information that might be impacting today's encounter and assessment, information from prior notes written by myself or my colleagues may have been "brought forward" into today's note. My signature on this note, however, is an attestation that I personally performed the exam, history, and/or decision-making noted today, and, unless otherwise indicated, the interactions with patient, family, and staff as well as the review of records all occurred today. I also attest that the listed assessment and stated plan reflect my best clinical judgment today based on the combination of historical information, prior notes, and today's exam/ interactions. When time spent is documented, it refers only to time spent today by the signer, or if indicated, combined time spent today by collaborating physician/nurse practitioner. Celestine Hampton MD Nov 28, 2016 15:28
--- NOTE | 2016-11-28 17:36 | HHI.PR ---
Subjective Remarks Patient was intubated last night for acute hypoxemic resp failure and a right chest tube was placed for right hydroPTX in addition patient underwent bronch with BAL ( mucous plugs b/l suctioned to clear). MRI brain multifocal area of septic emboli/infarct Sedated with diprivan and Fentanyl Tolerated CPAP2 hrs, back on PRVC Awake follows commands Objective Vital Signs Vital Signs Date Time Temp Pulse Resp B/P Pulse Ox O2 Delivery O2 Flow Rate FiO2 11/28/16 15:36 96 35 11/28/16 13:18 100 35 11/28/16 11:00 40 11/28/16 10:44 99 35 11/28/16 10:00 100 28 126/61 98 11/28/16 10:00 100 11/28/16 09:30 95 27 131/59 100 11/28/16 09:15 35 11/28/16 09:12 35 11/28/16 09:12 100 35 11/28/16 09:00 90 18 111/54 100 11/28/16 08:00 40 11/28/16 08:00 92 11/28/16 08:00 98.1 92 15 109/54 100 11/28/16 07:32 100 35 11/28/16 07:00 96 16 113/53 100 11/28/16 06:00 91 11/28/16 04:00 40 11/28/16 04:00 88 11/28/16 04:00 97.8 88 19 103/53 97 11/28/16 03:50 96 35 11/28/16 02:00 91 11/28/16 01:33 93 35 11/28/16 00:00 97.2 86 17 101/50 98 11/28/16 00:00 86 11/28/16 00:00 40 11/27/16 22:21 98 35 11/27/16 22:00 84 11/27/16 20:00 40 11/27/16 20:00 80 11/27/16 20:00 97.6 80 20 99/51 97 11/27/16 20:00 40 11/27/16 19:56 96 35 11/27/16 19:00 86 11/27/16 18:30 88 11/27/16 18:00 90 I/O 11/27/16 11/27/16 11/27/16 11/28/1613/17 7/13/17 07:00 15:00 23:00 07:00 15:00 23:00 Intake Total 1740 ml 1693 ml 1223 ml 862 ml Output Total 505 ml 510 ml 250 ml 795 ml Balance 1235 ml 1183 ml 973 ml 67 ml IV Total 1052 ml 741 ml 714 ml 326 ml Tube Feeding 438 ml 602 ml 389 ml 416 ml Other 250 ml 350 ml 120 ml 120 ml Output Urine Total 200 ml 400 ml 250 ml 650 ml Stool Total 200 ml 0 ml 100 ml Chest Tube Drainage Total 105 ml 110 ml 0 ml 45 ml # Voids 100 Result Diagram: 11/28/16 0509 11/28/16 0509 Objective Remarks GENERAL: Patient is 56 yo critically ill intubated , sedated and on pressors. SKIN: Warm and dry. HEAD: Normocephalic. EYES: No scleral icterus. No injection or drainage. NECK: Supple, trachea midline. No JVD or lymphadenopathy. CARDIOVASCULAR: Regular rate and rhythm without murmurs, gallops, or rubs. RESPIRATORY: Breath sounds equal bilaterally. No accessory muscle use. GASTROINTESTINAL: Abdomen soft, non-tender, nondistended. MUSCULOSKELETAL: No cyanosis, or edema. Neuro: Sedated and intubated A/P Assessment and Plan 1VDRF 2)Septic shock 3)Staph Aureus bacteremia 4)Empyema 6)Endocarditis involving AV 7)Leucocytosis 8)Cavitary pulm masses 2nd staph Aureus 9)Right hydroPTX PLAN: Continue with vent support keep sat >92% Bronchodilators, ICU vent bundle, on stress dose steroids- HC 100mg IV Q8 On PRVC/AC 20/520/1.10/10, 40% Abx per ID CTS is following- no intervention at this time. Chest tube to suction Sedation with Diprivan and fentanyl DAily CPAP trial Emmett Bolton MD Nov 28, 2016 17:36
--- NOTE | 2016-11-28 18:03 | PD.CONS ---
cc: Ravi Baker MD HPI Service General Surgery Consult Requested By Dr. Saunders Reason for Consult Trach placement Primary Care Physician No Primary Care Physician History of Present Illness This is a 56 year old male with essentially no medical history that presented to the ED on November 13 with generalized weakness, confusion and shortness of breath for two weeks. The patient was subsequently intubated on November 16. He had an elevated WBC. A CHANDNI was preformed with revealed a large vegetation on the AV and moderate aortic regurgitation. He was also found to have bilateral cavitary lesion. He is s/p several thoracentesis and pigtail chest tube placements. He was been unable to wean for the mechanical ventilator. A General Surgery consultation has been requesting for a tracheostomy tube placement. Review of Systems ROS Limitations: Intubated Past Family Social History Past Medical History None per mother and chart Past Surgical History None per mother and chart Reported Medications None per mother Allergies: Coded Allergies: No Known Allergies (Unverified , 11/13/16) Active Ordered Medications Current Medications Medications (Trade) Dose Ordered Sig/Gaye Route Start Time Stop Time Status Last Admin (NS Flush) 2 ml UNSCH PRN IV FLUSH 11/13/16 17:15 11/28/16 09:35 (NS Flush) 2 ml BID IV FLUSH 11/13/16 21:00 11/28/16 09:35 Miscellaneous Information 1 Q361D XX 11/13/16 17:15 (Chlorhexidine 2% Cloth) Taper DAILY@04 TOP 11/14/16 04:00 11/10/17 03:59 11/25/16 04:00 (Chlorhexidine 2% Cloth) 3 pack UNSCH PRN TOP 11/13/16 17:15 (Zofran Inj) 4 mg Q6H PRN IV PUSH 11/14/16 06:30 11/14/16 06:52 (Protonix Inj) 40 mg BID IV 11/14/16 21:00 11/28/16 09:36 Polyethylene Glycol 17 gm 17 gm BID PO 11/14/16 21:00 11/28/16 09:36 (Ancef 2 Gm Premix) 50 ml @ 100 mls/hr Q8H IV 11/15/16 17:00 11/28/16 16:25 (Reglan Inj) 10 mg Q8HR IV 11/16/16 14:00 11/28/16 12:33 (Lopressor Inj) 5 mg Q4HR IV PUSH 11/16/16 12:00 Hold 11/16/16 11:57 Chlorhexidine Gluconate 15 ml 15 ml BID@08,20 MT 11/16/16 20:00 11/28/16 08:00 (fentaNYL DRIP) 250 ml @ 0 mls/hr TITRATE IV 11/16/16 16:30 11/28/16 10:27 (NS Flush) DAILY IVF 11/17/16 09:00 11/28/16 09:35 (NS Flush) UNSCH PRN IVF 11/16/16 17:15 11/28/16 09:35 (Cardizem) 30 mg QID NG 11/16/16 18:00 Hold (Tears Naturale Opth Soln) 1 drop Q8HR EACH EYE 11/17/16 14:00 11/28/16 12:33 (NovoLOG SUPPLEMENTAL SCALE) 1 Q6H SQ 11/18/16 11:00 11/28/16 16:34 (Folate) 1 mg DAILY PO 11/18/16 10:15 11/28/16 09:36 (Heparin Inj) 5,000 units Q12HR SQ 11/18/16 21:00 11/28/16 09:35 (D50w (Vial) Inj) 25 ml UNSCH PRN IV PUSH 11/18/16 10:45 (Glucagon Inj) 1 mg UNSCH PRN OTHER 11/18/16 10:45 (Lactulose Liq) 30 ml DAILY PO 11/18/16 12:30 11/28/16 09:31 Hydrocortisone Sodium Succinate 50 mg 50 mg Q12HR IV PUSH 11/22/16 21:00 11/28/16 09:35 (Diprivan 1000 Mg/100ml Inj) 100 ml @ 0 mls/hr TITRATE IV 11/24/16 12:45 11/28/16 16:25 (Free Water) VOLUME OF WATER: ( 250 ) ML Q8HR G-TUBE 11/25/16 14:00 11/28/16 12:33 Multivitamins 1 tab 1 tab DAILY PO 11/27/16 09:00 11/28/16 09:36 (Thiamine Inj/NS Inj) 101 ml @ 101 mls/hr DAILY IV 11/28/16 09:00 11/28/16 09:31 Family History Noncontributory Social History Per records no current tobacco use, ETOH or illicit drug use Physical Exam Vital Signs Vital Signs Date Time Temp Pulse Resp B/P Pulse Ox O2 Delivery O2 Flow Rate FiO2 11/28/16 17:00 92 18 119/58 100 11/28/16 16:00 97.9 90 18 110/52 96 11/28/16 16:00 40 11/28/16 16:00 90 11/28/16 15:36 96 35 11/28/16 15:00 92 21 114/55 98 11/28/16 14:00 93 19 122/58 100 11/28/16 14:00 93 11/28/16 13:18 100 35 11/28/16 13:00 94 21 112/57 94 11/28/16 12:00 40 11/28/16 12:00 95 11/28/16 12:00 98.4 95 26 122/56 99 11/28/16 11:00 40 11/28/16 11:00 96 21 124/57 96 11/28/16 10:44 99 35 11/28/16 10:00 100 28 126/61 98 11/28/16 10:00 100 11/28/16 09:30 95 27 131/59 100 11/28/16 09:15 35 11/28/16 09:12 35 11/28/16 09:12 100 35 11/28/16 09:00 90 18 111/54 100 11/28/16 08:00 40 11/28/16 08:00 92 11/28/16 08:00 98.1 92 15 109/54 100 11/28/16 07:32 100 35 11/28/16 07:00 96 16 113/53 100 11/28/16 06:00 91 11/28/16 04:00 40 11/28/16 04:00 88 11/28/16 04:00 97.8 88 19 103/53 97 11/28/16 03:50 96 35 11/28/16 02:00 91 11/28/16 01:33 93 35 11/28/16 00:00 97.2 86 17 101/50 98 11/28/16 00:00 86 11/28/16 00:00 40 11/27/16 22:21 98 35 11/27/16 22:00 84 11/27/16 20:00 40 11/27/16 20:00 80 11/27/16 20:00 97.6 80 20 99/51 97 11/27/16 20:00 40 11/27/16 19:56 96 35 11/27/16 19:00 86 11/27/16 18:30 88 11/27/16 18:00 90 Physical Exam GENERAL: Critically ill 56 year old male resting in bed orally intubated on mechanical ventilation. SKIN: Warm and dry. HEAD: Atraumatic. Normocephalic. EYES: Pupils equal and round. No scleral icterus. No injection or drainage. ENT: No nasal bleeding or discharge. Mucous membranes pink and moist. NECK: Trachea midline. No visible scars on neck. Trachea palpable. CARDIOVASCULAR: Regular rate and rhythm. RESPIRATORY: No accessory muscle use. Clear to auscultation. Breath sounds equal bilaterally. GASTROINTESTINAL: Abdomen mildly distended, non tender. MUSCULOSKELETAL: BLE with pitting edema. NEUROLOGICAL: Intubated/Sedated. PSYCHIATRIC: Unable to exam at time of assessment. Laboratory Laboratory Tests Test 11/28/16 05:09 White Blood Count 8.1 Red Blood Count 2.33 Hemoglobin 7.3 Hematocrit 21.8 Mean Corpuscular Volume 93.3 Mean Corpuscular Hemoglobin 31.1 Mean Corpuscular Hemoglobin 33.4 Concent Red Cell Distribution Width 15.4 Platelet Count 210 Mean Platelet Volume 8.6 Neutrophils (%) (Auto) 84.9 Lymphocytes (%) (Auto) 8.5 Monocytes (%) (Auto) 6.4 Eosinophils (%) (Auto) 0.1 Basophils (%) (Auto) 0.1 Neutrophils # (Auto) 6.9 Lymphocytes # (Auto) 0.7 Monocytes # (Auto) 0.5 Eosinophils # (Auto) 0.0 Basophils # (Auto) 0.0 CBC Comment DIFF FINAL Differential Comment Sodium Level 143 Potassium Level 3.8 Chloride Level 108 Carbon Dioxide Level 26.1 Anion Gap 9 Blood Urea Nitrogen 53 Creatinine 1.78 Estimat Glomerular Filtration 40 Rate Random Glucose 168 Calcium Level 8.0 Phosphorus Level 4.6 Magnesium Level 2.6 Total Bilirubin 0.4 Aspartate Amino Transf 10 (AST/SGOT) Alanine Aminotransferase LESS THAN 6 (ALT/SGPT) Alkaline Phosphatase 82 Ammonia 39 Total Creatine Kinase 71 Total Protein 5.9 Albumin 1.2 Date/Time Procedure Status Source Growth 11/25/16 11:20 Gram Stain Christopher Batch Sputum Endotracheal Pending 11/25/16 11:20 Sputum Culture Christopher Batch Sputum Endotracheal Pending 11/25/16 05:15 Urine Culture - Final Complete Urine Catheterized Urine NO GROWTH IN 48 HOURS. 11/24/16 14:15 Aerobic Blood Culture - Preliminary Resulted Blood Peripheral NO GROWTH IN 4 DAYS 11/24/16 14:15 Anaerobic Blood Culture - Preliminary Resulted Blood Peripheral NO GROWTH IN 4 DAYS Result Diagram: 12/10/1662312/10/16623 Assessment and Plan Assessment and Plan 56 year old male with endocarditis and cavitary pulmonary lesions; with ventilator dependent respiratory failure in need of trachelotomy tube placement -Spoke with mother Nellie ---she agrees to consent for trach placement -Went over indications for procedure, risks and benefits with Mother -Plan for bedside trach placement tomorrow at 1pm -Thank you for this consult Discussed Condition With Dr. Samuel Ballard (mother) Attending Statement as above pt seen at bedside acute respiratory failure, need for surgical airway discussed with family and staff Attestation The exam, history, and the medical decision-making described in the above note were completed with the assistance of the mid-level provider. I reviewed and agree with the findings presented. I attest that I had a [id number] encounter with the patient on the same day, and personally performed and documented my assessment and findings in the medical record. Carey Barnett Nov 28, 2016 18:03 Ravi Baker MD Dec 10, 2016 10:05
[2016-11-28] MEDS ORDERED: MISC INFORMATION OTHER ONE (18:45)
[2016-11-29] VITALS (20 sets, daily range): BP systolic 103–117; BP diastolic 53–56; PULSE 86–97; RESP 18–20; TEMP 98.2–99.6; O2SAT 96–100
[2016-11-29] MEDS: PROPOFOL 1000 MG/100 ML INJ 100 ML IV SCH ×7 (00:58→21:27)
[2016-11-29] MEDS: RESP: ALBUTEROL 2.5 MG/IPRATROPIUM 0.5 MG NEB (SCH) NEB ×6 (03:25→23:08)
[2016-11-29] MEDS: CHLORHEXIDINE GLUCONATE 2 % 1 PACK (2 CLOTHS) TOP SCH (03:29)
[2016-11-29] MEDS: INSULIN ASPART SUPPLEMENTAL SCALE SQ SCH ×4 (05:00→23:00)
[2016-11-29] MEDS: METOCLOPRAMIDE HCL 10 MG/2 ML VIAL IV SCH ×3 (05:13→21:26)
[2016-11-29] MEDS: ARTIFICIAL TEARS OPTH SOLN 15 ML BTL EACH EYE SCH ×3 (05:14→21:27)
[2016-11-29] MEDS: FREE WATER G-TUBE SCH ×3 (05:14→21:27)
[2016-11-29 05:25] LABS: AUTOMATED NEUTROPHIL # 4.4 TH/MM3 (1.8-7.7); BASOPHIL % 0.2 % (0.0-2.0); EOSINOPHIL % 0.7 % (0.0-4.0); HEMATOCRIT 22.9 % (39.0-51.0); HEMO FLAGS DIFF FINAL; LYMPH % 9.6 % (9.0-44.0); LYMPHOCYTE # 0.5 TH/MM3 (1.0-4.8); MEAN CELL VOLUME 94.8 FL (80.0-100.0); MEAN CORPUSCULAR HEMOGLOBIN 30.2 PG (27.0-34.0); MEAN CORPUSCULAR HGB CONC 31.8 % (32.0-36.0); MONO % 8.9 % (0.0-8.0); NEUT % 80.6 % (16.0-70.0); PLATELET COUNT 230 TH/MM3 (150-450); RED BLOOD COUNT 2.42 MIL/MM3 (4.50-5.90); RED CELL DISTRIBUTION WIDTH 15.5 % (11.6-17.2); WHITE BLOOD COUNT 5.5 TH/MM3 (4.0-11.0)
[2016-11-29 05:45] LABS: ANION GAP 10 MEQ/L (5-15); AST (GOT) 18 U/L (15-37); BLOOD UREA NITROGEN 56 MG/DL (7-18); CHLORIDE 108 MEQ/L (98-107); GLOMERULAR FILTRATION RATE 44 ML/MIN (>89); MAGNESIUM 2.7 MG/DL (1.5-2.5); POTASSIUM 3.9 MEQ/L (3.5-5.1); SODIUM (NA) 145 MEQ/L (136-145)
[2016-11-29 06:11] LABS: ALKALINE PHOSPHATASE 96 U/L (45-117); ALT (GPT) LESS THAN 6 U/L (12-78); CREATINE KINASE 317 U/L (39-308); TOTAL BILIRUBIN ADULT 0.4 MG/DL (0.2-1.0)
[2016-11-29 06:32] LABS: CKMB 7.7 NG/ML (0.5-3.6)
[2016-11-29] MEDS ORDERED: PROPOFOL 200 MG/20 ML AMP IV ONE ×2 (07:28→15:30)
[2016-11-29] MEDS: PANTOPRAZOLE SODIUM 40 MG VIAL IV SCH ×2 (08:27→21:27)
[2016-11-29] MEDS: THIAMINE INJ 100 MG in SODIUM CHLORIDE 0.9% INJ 100 ML IV SCH (08:28)
[2016-11-29] MEDS: ceFAZolin 2 GM PREMIX 50 ML IV SCH ×3 (08:28→23:40)
[2016-11-29] MEDS: HYDROCORTISONE SOD SUCCINATE 100 MG VIAL IV PUSH SCH ×2 (08:28→21:26)
[2016-11-29] MEDS: SODIUM CHLORIDE 0.9% FLUSH 10 ML FLUSH IV FLUSH SCH ×2 (08:29→21:27)
[2016-11-29] MEDS: SODIUM CHLORIDE 0.9% FLUSH 10 ML FLUSH IVF SCH (08:30)
[2016-11-29] MEDS: MULTIVITAMIN TAB PO SCH (08:30)
[2016-11-29] MEDS: LACTULOSE SYRUP 20 GM/30 ML CUP PO SCH (08:30)
[2016-11-29] MEDS: FOLIC ACID 1 MG TAB PO SCH (08:30)
[2016-11-29] MEDS: POLYETHYLENE GLYCOL 17 GM PKG PO SCH ×2 (08:30→21:26)
[2016-11-29] MEDS: CHLORHEXIDINE 0.12% (ORAL KIT) 15 ML CUP MT SCH ×2 (08:31→21:28)
[2016-11-29] MEDS: fentaNYL DRIP 250 ML IV SCH (11:31)
[2016-11-29 12:33] LABS: APTT (PATIENT) 23.5 SEC (24.3-30.1); PROTHROMBIN TIME - PATIENT 10.8 SEC (9.8-11.6)
[2016-11-29] MEDS ORDERED: MIDAZOLAM HCL 5 MG/ML VIAL (1 ML) IV PUSH ONE (12:45)
[2016-11-29] MEDS ORDERED: NOREPINEPHRINE INJ 4 MG in SODIUM CHLOR 0.9% 250 ML INJ 246 ML IV SCH (12:45)
[2016-11-29] MEDS ORDERED: TERBUTALINE INJ 1 MG/ML AMP SQ PRN (12:45)
[2016-11-29] MEDS ORDERED: ROCURONIUM INJ 50 MG/5 ML VIAL IV ONE (12:45)
[2016-11-29] MEDS ORDERED: MIDAZOLAM HCL 5 MG/ML VIAL (1 ML) ONE (12:47)
--- NOTE | 2016-11-29 13:32 | PD.PROCEDR ---
Procedure Note Procedure Procedure Date: 11/29/16 Procedure: Fiberoptic bronchoscopy, diagnostic Indication: Ventilator dependent respiratory failure, percutaneous tracheostomy placement Details of procedure: Informed consent was obtained from after discussion of risks, benefits, alternatives.. The patient was on mechanical ventilation with 100% FiO2 via endotracheal tube and sedated with propofol at 40 g per kilo per minute and fentanyl drip at 2 mg an hour. Given 3 milligrams Versed IV and paralyzed with rocuronium 50 mg IV 1. I entered the 8.0 Macanese endotracheal tube with a flexible bronchoscope. The joseph was draped visualized and was sharp. ET tube was withdrawn to [address] Baker inserted a #8 Shiley percutaneous tracheostomy without complication. Scope was withdrawn from ET tube in place and the tracheostomy with direct visualization of joseph without complication. Tracheostomy was then sutured in place. I entered the #8 Shiley T tracheostomy injury could visualize right upper, middle lower lobes and left lingula/lower lobes. The right lower lobe was irrigated with 20 cc saline treatment with removal of thick white mucous plugging. Scope was withdrawn without complication. He tolerated procedure well. Sats were maintained above 95%. Josh Saundres MD Nov 29, 2016 13:32
--- NOTE | 2016-11-29 14:44 | HHI.IDPN ---
Note Infectious Disease Note On the vent. Had trach today 11/29. Somnolent. Sedated. Afebrile. chest tube draining. D/W RN. Large vegetation on AV and moderate aortic regurg on CHANDNI. Culture of blood 11/13, 11/15, 11/16. - Staph aureus. 11/19 no growth. Culture of pleural fluid 11/14 - staph aureus. Presented to the emergency department with a 2-week history of weakness. He was noted to have low oxygen saturation. He reported that he had productive cough over the past couple of weeks and was experiencing shortness of breath. ALLERGIES NO KNOWN DRUG ALLERGIES. ANTIBIOTICS: Ancef. OBJECTIVE: Vital Signs Date Time Temp Pulse Resp B/P Pulse Ox O2 Delivery O2 Flow Rate FiO2 11/29/16 14:00 95 11/29/16 13:45 100 35 11/29/16 13:15 100 100 11/29/16 12:00 91 11/29/16 12:00 35 11/29/16 12:00 99.6 91 18 104/54 98 11/29/16 12:00 100 100 11/29/16 10:51 97 35 11/29/16 10:00 93 11/29/16 08:26 98 35 11/29/16 08:00 90 11/29/16 08:00 35 11/29/16 08:00 98.3 90 18 111/56 98 11/29/16 06:00 91 11/29/16 04:07 96 35 11/29/16 04:00 90 11/29/16 04:00 98.2 90 18 107/54 98 11/29/16 04:00 35 11/29/16 02:00 97 11/29/16 01:20 96 35 11/29/16 00:00 35 11/29/16 00:00 86 11/29/16 00:00 98.3 86 18 103/53 100 11/28/16 22:59 98 35 11/28/16 22:00 90 11/28/16 20:00 86 11/28/16 20:00 97.5 86 18 108/53 100 11/28/16 20:00 35 11/28/16 19:47 98 35 11/28/16 18:00 93 11/28/16 17:00 92 18 119/58 100 11/28/16 16:00 97.9 90 18 110/52 96 11/28/16 16:00 40 11/28/16 16:00 90 11/28/16 15:36 96 35 11/28/16 15:00 92 21 114/55 98 11/28/16 11/28/16 11/29/16 14:59 22:59 06:59 Intake Total 1399 ml 1393 ml 748 ml Output Total 614 ml 844 ml 538 ml Balance 785 ml 549 ml 210 ml IV Total 671 ml 508 ml 448 ml Tube Feeding 478 ml 535 ml 200 ml Other 250 ml 350 ml 100 ml Output Urine Total 500 ml 550 ml 350 ml Stool Total 100 ml 100 ml 100 ml Chest Tube Drainage Total 14 ml 194 ml 88 ml Laboratory Tests Test 11/28/16 11/29/16 05:09 05:00 White Blood Count 8.1 TH/MM3 5.5 TH/MM3 Red Blood Count 2.33 MIL/MM3 2.42 MIL/MM3 Hemoglobin 7.3 GM/DL 7.3 GM/DL Hematocrit 21.8 % 22.9 % Mean Corpuscular Volume 93.3 FL 94.8 FL Mean Corpuscular Hemoglobin 31.1 PG 30.2 PG Mean Corpuscular Hemoglobin 33.4 % 31.8 % Concent Red Cell Distribution Width 15.4 % 15.5 % Platelet Count 210 TH/MM3 230 TH/MM3 Mean Platelet Volume 8.6 FL 8.9 FL Neutrophils (%) (Auto) 84.9 % 80.6 % Lymphocytes (%) (Auto) 8.5 % 9.6 % Monocytes (%) (Auto) 6.4 % 8.9 % Eosinophils (%) (Auto) 0.1 % 0.7 % Basophils (%) (Auto) 0.1 % 0.2 % Neutrophils # (Auto) 6.9 TH/MM3 4.4 TH/MM3 Lymphocytes # (Auto) 0.7 TH/MM3 0.5 TH/MM3 Monocytes # (Auto) 0.5 TH/MM3 0.5 TH/MM3 Eosinophils # (Auto) 0.0 TH/MM3 0.0 TH/MM3 Basophils # (Auto) 0.0 TH/MM3 0.0 TH/MM3 CBC Comment DIFF FINAL DIFF FINAL Differential Comment Laboratory Tests Test 11/28/16 11/29/16 05:09 05:00 Sodium Level 143 MEQ/L 145 MEQ/L Potassium Level 3.8 MEQ/L 3.9 MEQ/L Chloride Level 108 MEQ/L 108 MEQ/L Carbon Dioxide Level 26.1 MEQ/L 27.0 MEQ/L Anion Gap 9 MEQ/L 10 MEQ/L Blood Urea Nitrogen 53 MG/DL 56 MG/DL Creatinine 1.78 MG/DL 1.63 MG/DL Estimat Glomerular Filtration 40 ML/MIN 44 ML/MIN Rate Random Glucose 168 MG/DL 107 MG/DL Calcium Level 8.0 MG/DL 8.5 MG/DL Phosphorus Level 4.6 MG/DL 4.0 MG/DL Magnesium Level 2.6 MG/DL 2.7 MG/DL Total Bilirubin 0.4 MG/DL 0.4 MG/DL Aspartate Amino Transf 10 U/L 18 U/L (AST/SGOT) Alanine Aminotransferase LESS THAN 6 U/L LESS THAN 6 U/L (ALT/SGPT) Alkaline Phosphatase 82 U/L 96 U/L Ammonia 39 MCMOL/L Total Creatine Kinase 71 U/L 317 U/L Total Protein 5.9 GM/DL 6.6 GM/DL Albumin 1.2 GM/DL 1.6 GM/DL Creatine Kinase MB 7.7 NG/ML Creatine Kinase MB % 2.4 % IMAGING: Chest X-Ray 11/27/16 Signed Impressions: Service Date/Time: Sunday, November 27, 2016 04:52 - CONCLUSION: 1. Worsening dense consolidation of the right mid and lower lung. 2. Right mid lung cavitary mass again seen not significantly changed. 3. Patchy subpleural airspace opacities of the left lung not significantly changed. Agustin Nolan MD Brain MRI 11/21/16 0000 Signed Impressions: Service Date/Time: November 12:33 - CONCLUSION: Multifocal areas of restricted diffusion primarily in the periventricular and subcortical white matter bilaterally but also cortically based in the right frontal lobe. Findings likely represent ischemic change likely related to septic emboli given the patient's clinical history. No abscess or enhancing lesion is visualized. Agustin Bonner MD Head CT 11/17/16599 Signed Impressions: Service Date/Time: Thursday, November 17, 2016 10:39 - CONCLUSION: No significant change has occurred. Deven Urrutia MD Chest X-Ray 7/2/17 0600 Signed Impressions: Service Date/Time: Thursday, November 17, 2016 03:36 - CONCLUSION: Diffuse airspace disease a large cavity in the right midlung zone is unchanged. Tubes and catheter are in good position. Sawyer Robertson MD Chest CT 11/16/16 0000 Signed Impressions: Service Date/Time: Wednesday, November 16, 2016 20:36 - CONCLUSION: 1. New right chest tube in the posterior superior right pleural space. There continues to be a moderate right pleural effusion primarily seen at the base. Some degree of loculation may be present inferiorly. The effusion does not layer posteriorly. There are scattered punctate areas of air within the pleural space inferiorly on the right. There is a solitary small area of air within the mild left pleural effusion. 2. Numerous irregular masses seen throughout both lungs some which are cavitary. These are nonspecific. Inflammatory masses needs be suspected. The multiplicity raises possibility of septic emboli. Agustin Prcie MD Abdomen X-Ray 11/15/16 0600 Signed Impressions: Service Date/Time: Tuesday, November 15, 2016 03:07 - CONCLUSION: Probable mild ileus involving loops of bowel on the left side. Reba Banerjee MD Abdomen/Pelvis CT 11/14/16 0000 Signed Impressions: Service Date/Time: October 09:55 - CONCLUSION: 1. Multiple loops of fluid-filled small bowel which are larger in caliber in comparison to yesterday's examination although not enlarged by size criteria. This may reflect mild enteritis versus developing mild adynamic ileus. 2. Persistent luminal narrowing at the gastroduodenal junction without definite focal mass. This is of uncertain clinical significance and likely reflects gastric contraction. Gastric mass/metastatic disease is not very likely based on appearance although it cannot be excluded. 3. 2 cm ill-defined hypodense lesion in the left renal mid pole with indeterminate density. Differential considerations include complex cyst versus metastatic disease in this patient with apparent diffuse metastatic disease in the chest. 4. Redemonstration of multiple bilateral cavitary masses at the lung bases with loculated right pleural effusion. Elder Long MD CT Angiography 11/13/16 1328 Signed Impressions: Service Date/Time: Sunday, November 13, 2016 15:50 - CONCLUSION: 1. Multiple cavitary lesions within both lungs with the largest measuring 9.5 cm in the right upper lobe. Differential diagnosis includes infectious and neoplastic etiologies. 2. Moderate sized right pleural effusion with adjacent compressive atelectasis and/or infiltrate. 3. Cardiomegaly and coronary artery calcifications. 4. Subcarinal mediastinal lymphadenopathy. 5. Degenerative changes throughout the thoracic spine. Jed Ponce MD PHYSICAL EXAMINATION GENERAL: On the vent. HEENT: No icterus. Oropharynx moist mucosa without lesions. NECK: Supple without adenopathy. LUNGS: Coarse rhonchi. HEART: Normal S1-S2 without audible murmurs, rubs or gallops. ABDOMEN: Bowel sounds present, soft. Distended. Non tender. EXTREMITIES: No clubbing or cyanosis or edema. SKIN: Punctate erythematous lesions at the lower extremities including the left tibia, left foot and right foot which blanches with palpation. No diffuse rash. NEURO: Sedated. Calm. PSYCH: unable to assess. IMPRESSION 1. Sepsis. Endocarditis Aortic valve Staph aureus (MSSA). 2. Cavitary pulmonary lesions. Embolic./ [employer]TER ischemic lesions suggesting embolic lesions. 3. Pneumonia/parapneumonic effusion- MSSA. 4. Skin lesions which potentially could be embolic. 5. Leukocytosis secondary to infection. WBC improved. Now normal. 6. Fever secondary to infection. Improved. 7. Vent dependent respiratory failure. RECOMMENDATIONS 1. Continue IV Ancef. 2. Monitor renal function. 3. Monitor temp. 4. follow clinical status. Slava Garcia MD Nov 29, 2016 14:44
--- NOTE | 2016-11-29 14:47 | HHI.CCPN ---
Subjective Remarks/Hospital Course 56-year-old male is brought to the emergency department by EMS for evaluation of generalized weakness, confusion for about 2 weeks, and also increasing shortness of breath. His oxygen saturation was 88% on room air. EMS administered breathing treatments and Solu-Medrol 125 mg 1 and placed him on nasal cannula. Patient states that he had been sick for almost 10 days, but he is a poor historian. He had a productive cough, but reports no hematemesis or weight loss. He states that it was his neighbor who made him called EMS. He has no past medical history and last time had seen a doctor was about 15 years ago. He denies any fevers but reports some night sweats and chills. He was tachycardic with a heart rate of 115 bpm, had severe leukocytosis with a white count of 35,000 with 91% neutrophils. CMP shows hyponatremia with a sodium of 126. Lactic acid is 2.4. His Chest x-ray shows large 7.7 x 7.8 cm cavitary right midlung lesion with associated right-sided pleural effusion. Subcentimeter left mid lung pulmonary nodules. Patient received 1 L normal saline bolus and Zosyn 4.5 g and Zithromax 500 mg IV and was placed on TB/ respiratory isolation. He has been being in [facility] 2 years ago increasing his risk of tuberculosis. CT pulmonary angiogram negative for PE but showed multiple cavitary lesions within both lungs with the largest measuring 9.5 cm in the right upper lobe. Moderate size right pleural effusion. I evaluated the patient in the emergency department. Patient appears critically ill in moderate distress mildly tachypneic, sweating. I performed a bedside ultrasound which showed a right effusion which is large. The thoracentesis was performed and 1 L of cloudy dark pleural fluid was removed. Patient will be continued on Zosyn and Levaquin and vancomycin. ID consulted and I discussed with Dr. Steele-she recommended no empiric treatments for TB. 11/14/16: Patient seen and examined complaints of severe epigastric and periumbilical abdominal pain. Patient remains oriented to person. His white count is slightly improved from 35,000-28,9000. Na improved to 136. I have ordered a STAT CT abd/pelvis with IV contrast. Chest x-ray shows reaccumulation of right pleural effusion-fluid chemistries are pending but cell count indicates at least a parapneumonic effusion and patient will need a pigtail chest tube 11/15: Patient pulled his right-sided pigtail catheter out overnight last night. Currently nasal cannula in no acute distress. Afebrile. Continues to have a leukocytosis. 11/16: Currently on room air. Hold out his IVs reportedly overnight last night. Requesting diet. Awake and alert and following commands. 11/17: Intubated yesterday due to acute hypercapnic respiratory failure. Hypoxic post intubation requiring right chest tube placement, bronchoscopy and Flolan. Bronchoscopy revealed thick mucous plugging at bilateral right and left mainstem which were clear. Improved oxygenation over the past 12 hours. Afebrile. 11/18 Patient remains sedated with Diprivan, Fentanyl and intubated. On Vasopressin and Neosyn 120 mics. 11/19 Patient is sedated with Diprivan, Fentanyl and intubated. Afebrile. Off all pressors. Afebrile. WBC is trending down 30 today from 50. 11/20: Remains severely septic and encephalopathic even though weaned off all pressors. White count still elevated but trending down. Became extremely tachycardic and tachypneic on lowering sedation. We'll check MRI of the brain to rule out embolic infarct. Family at the bedside updated 11/21 Remains heavily sedated, remains encephalopathic. MRI brain is pending. Family is at bedside. Remains critically with resp failure severe from endocarditis, now unable to wean off the ventilator due to severe metabolic encephalopathy 11/22 No events overnight. Sedated with Diprivan, fentanyl and intubated. Afebrile. MRI brain yesterday showed ischemic changes likely related to septic emboli. 11/23: Patient remains encephalopathic, severe hyponatremia possible contributing , Na is 157 today. Currently on Precedex and fentanyl. CXR shows increasing L effusion 11/24: Patient more awake today. Follows Commands but did not tolerate spontaneous breathing trials. Had left pigtail chest tube placed yesterday 1.6 L transudative fluid removal since placement 11/25 Patient is sedated with Diprivan, Fentanyl and intubated. T:99.9 11/26 No events overnight. Sedated and intubated. Patient was on CPAP x 3 hrs yesterday then became tachypneic. 11/27: Resting in bed comfortably on Diprivan at 40 mics grams per kilogram per minute and fentanyl drip at 200 an hour. Tolerated PSV trial 2 hours yesterday before becoming tachypnea. Positive BM via fecal containment device 1100 cc. Yesterday according to RN was following commands. 11/28: Currently afebrile. Tolerating PSV trials 1.5 hours today for became tachypneic. Awake and alert and follows commands. Neurologically intact. Positive BM. Subjective 11/29: Tmax 99.6. Status post percutaneous tracheostomy secondary to failed extubation trials. Plan for PEG tube today. Awake and interactive the ventilator on sedation vacation. Objective Vital Signs Date Time Temp Pulse Resp B/P Pulse Ox O2 Delivery O2 Flow Rate FiO2 11/29/16 14:00 95 11/29/16 13:45 100 35 11/29/16 12:00 99.6 18 104/54 11/25/16 08:24 Ventilator Intake and Output 11/28/16 11/28/16 11/29/16 08:00 16:00 00:00 Intake Total 862 ml 1399 ml 1393 ml Output Total 795 ml 614 ml 844 ml Balance 67 ml 785 ml 549 ml Result Diagram: 11/29/16 0500 11/29/16 0500 Other Results Microbiology Date/Time Procedure Status Source Growth 11/25/16 11:20 Gram Stain Christopher Batch Sputum Endotracheal Pending 11/25/16 11:20 Sputum Culture Christopher Batch Sputum Endotracheal Pending 11/25/16 05:15 Urine Culture - Final Complete Urine Catheterized Urine NO GROWTH IN 48 HOURS. Imaging Last 72 hours Impressions Chest X-Ray 11/27/16 0000 Signed Impressions: Service Date/Time: Sunday, November 27, 2016 04:52 - CONCLUSION: 1. Worsening dense consolidation of the right mid and lower lung. 2. Right mid lung cavitary mass again seen not significantly changed. 3. Patchy subpleural airspace opacities of the left lung not significantly changed. Agustin Nolan MD Objective Remarks GENERAL: 56-year-old male, critically ill currently orotracheally intubated SKIN: Warm and dry. Scattered skin lesions erythematous predominantly left lower extremity HEAD: Normocephalic and atraumatic. EYES: No injection, drainage. Pupils equally round and reactive around 3 mm bilaterally and reactive to 2 mm. ENT: No nasal drainage noted. Oropharynx is clear. Orotracheally intubated NECK: Supple. No JVD or thyromegaly or lymphadenopathy. CARDIOVASCULAR: Tachycardic, RR. S1, S2. No S4. Aortic regurgitation murmur not appreciated. RESPIRATORY: Diminished breath sounds bilaterally. Mild expiratory wheezing and few crackles. Right chest tube 38 ml output, L pigtail 254 ml output in 24 hours GASTROINTESTINAL: Abdomen is soft, mildly distended no rebound or guarding on examination. Hypoactive bowel sounds are appreciated MUSCULOSKELETAL: 1+ pitting edema bilateral lower extremities. Multiple erythematous raised lesions on bilateral lower extremity predominantly left lower leg NEUROLOGICAL: Awake, Moving all 4 extremity spontaneously and follows commands Date of Insertion: Nov 16, 2016 Date of Removal: Nov 21, 2016 Line: Central Venous Catheter Side: Left Location: Internal, Jugular A/P Assessment and Plan NEURO/PSYCH: Metabolic encephalopathy Septic brain emboli On Diprivan at 40 mg/kg/m and Fentanyl infusion at 200 an hour for sedation/ analgesia while intubated. Goal of RASS -2. Daily sedation vacation. steadily improving neuro exam EEG 11/24: Generalized encephalopathy without any significant epileptic activity. MRI brain 11/21: Ischemic changes throughout white matter likely related to septic emboli. Neuro consulted Dr. Hernandez CT head 11/17 revealed no acute intracranial findings currently no signs of gross embolic events. On Thiamine/MVI/Folic acid RESP: Bilateral cavitary lung lesions/most likely cavitating pneumonia from staph aureus Acute respiratory failure Large right loculated pleural effusion/empyema Left pleural effusion PRVC 16/600/1.1//40. Currently on PSV trial 04/22 at 40% Continue with vent support keep sat >92%. Duo nebs every 4 hours with albuterol nebs every 2 hours. Vent bundle. Status post G [place] by Dr. Baker 11/29 Right-sided chest tube #28 Azer[place]- monitor CT drainage( Drained 38 ml in 24 hours) -20 cm H2O Left-sided chest tube #10 A[place]- placed 11/24/16-drained 254ml in 24 hrs -20 cm H2O - Right thoracentesis with 1 L cloudy yellow fluid removed, fluid cell studies WBC 2,600, - Patient status post pigtail catheter placement 11/14, 445 cc prior pulled out 11/15. Evaluated by Dr. Samuels/CT surgery. Per his recommendations, No indication for decortication at this time CV: Aortic valve endocarditis/large vegetation Sinus tachycardia Atrial fibrillation with RVR early normal sinus rhythm Elevated troponin - likely rate dependent Monitor HR and BP keep MAP>65mmHg - Stress dose steroids-Hydrocortisone 50mg IV Q12 - 2-D echocardiogram revealed EF 55-60%. Moderate AR. CHANDNI revealed 17 mm x 17 millimeter mobile mass on aortic valve. limited echo 11/22 Persistent vegetation - CT surgery. Recommendations no intervention at this time GI: Hypoalbuminemia Moderate protein calorie malnutrition/acute Continue tube feeds with Glucerna 1.5@ 55 cc an hour. IV Protonix for GI prophylaxis. MiraLAX twice a day for bowel regimen Reglan for bowel motility - CT of the abdomen pelvis with IV contrast revealed possible ileus., Gastric contraction at gastric duodenal junction. 2 mm renal cyst. - KUB 11/15 revealed improving mild ileus. GI is following. : Santana catheter has been placed for accurate I's and O's in a critically ill patient ID: Severe sepsis New fever Multilobar cavitating pneumonia secondary staph aureus Staph aureus empyema - Continue with abx per ID ( IV Ancef) monitor for signs of infections ( Fever, WBC) WBC is trending down - Gentamicin discontinued 11/26 due to elevated creatinine currently 1.8 Pertinent cultures 11/13 - blood cultures 2 - staph aureus 11/13 and 11/14- pleural fluid- staph aureus 11/14- sputum- staph aureus 11/15 - blood cultures 2 -staph aureus 11/16 - Bronch samples: Staph Aureus 11/16 Sputum: Staph Aureus 11/19 - blood cultures 2 - no growth 11/23 - pleural fluid - no growth 11/24 - blood cultures 2 - no growth 11/25 - UA - negative 11/25 - sputum no growth HEME: Normocytic anemia - Monitor CBC, CMP, coags ENDO: SSI with accuchecks for glycemic control TSH 0.6. FEN: Hyper-magnesium Currently on D5 water at 100 cc now. Patient is very edematous/volume overload. We'll discontinue Free water flushes at 250 cc every 8 hours. Follow-up on sodium in a.m. RENAL: Acute kidney injury Creatinine currently 1.6 Check urine eosinophil/electrolytes Monitor urine output Accurate I's and O's Avoid nephrotoxic drugs PROPH: - Bilateral lower extremity SCDs. Heparin SQ, IV Protonix for prophylaxis LINES: - Left IJ CVL placed 11/16 discontinued unknown time. Currently with peripheral IVs Palliative care is following Critical Care: The total critical care time was 30 minutes. Time to perform other separately billable procedures was not included in the critical care time. Josh Saunders MD Nov 29, 2016 14:47
--- NOTE | 2016-11-29 14:48 | RADRPT ---
EXAM DATE/TIME: 11/29/2016 14:01 [place] COMPARISON: CHEST SINGLE AP, November 27, 2016, 4:52. INDICATIONS : Post tracheostomy placement. MEDICAL HISTORY : Sepsis. SURGICAL HISTORY : Chest tube placement. ENCOUNTER: Initial ACUITY: 1 day PAIN SCORE: Non-responsive. LOCATION: Bilateral chest FINDINGS: There is a right-sided chest tube present. There is no pneumothorax. There is significant interval im provement in the appearance of the parenchyma on the right. The tracheostomy is in good position. The re are diffuse interstitial changes. CONCLUSION: 1. Improving aeration of the pulmonary parenchyma. 2. No pneumothorax. Mike Padilla MD on November 29, 2016 at 14:45 Board Certified Radiologist. This report was verified electronically.
--- NOTE | 2016-11-29 15:52 | HHI.GIFU ---
Subjective Remarks Immediate postop note: PEG tube placement Indication: Need for buttermaker nutritional support. Meds: On vent, additional MAC Findings: Esophagus; Normal Stomach: normal Duodenum: normal Excellent transillumination. Exc indentation/ PEG tube placed in the usual way without apparent complication. Objective Vitals I&O Vital Signs Date Time Temp Pulse Resp B/P Pulse Ox O2 Delivery O2 Flow Rate FiO2 11/29/16 14:00 95 11/29/16 13:45 100 35 11/29/16 13:15 100 100 11/29/16 12:00 91 11/29/16 12:00 35 11/29/16 12:00 99.6 91 18 104/54 98 11/29/16 12:00 100 100 11/29/16 10:51 97 35 11/29/16 10:00 93 11/29/16 08:26 98 35 11/29/16 08:00 90 11/29/16 08:00 35 11/29/16 08:00 98.3 90 18 111/56 98 11/29/16 06:00 91 11/29/16 04:07 96 35 11/29/16 04:00 90 11/29/16 04:00 98.2 90 18 107/54 98 11/29/16 04:00 35 11/29/16 02:00 97 11/29/16 01:20 96 35 11/29/16 00:00 35 11/29/16 00:00 86 11/29/16 00:00 98.3 86 18 103/53 100 11/28/16 22:59 98 35 11/28/16 22:00 90 11/28/16 20:00 86 11/28/16 20:00 97.5 86 18 108/53 100 11/28/16 20:00 35 11/28/16 19:47 98 35 11/28/16 18:00 93 11/28/16 17:00 92 18 119/58 100 11/28/16 16:00 97.9 90 18 110/52 96 11/28/16 16:00 40 11/28/16 16:00 90 I/O 11/28/16 11/28/16 11/28/16 11/29/16 11/29/16 11/29/16 06:59 14:59 22:59 06:59 14:59 22:59 Intake Total 862 ml 1399 ml 1393 ml 748 ml 655 ml Output Total 795 ml 614 ml 844 ml 538 ml 550 ml Balance 67 ml 785 ml 549 ml 210 ml 105 ml IV Total 326 ml 671 ml 508 ml 448 ml 655 ml Tube Feeding 416 ml 478 ml 535 ml 200 ml Other 120 ml 250 ml 350 ml 100 ml Output Urine Total 650 ml 500 ml 550 ml 350 ml 450 ml Stool Total 100 ml 100 ml 100 ml 100 ml 100 ml Chest Tube Drainage Total 45 ml 14 ml 194 ml 88 ml Laboratory Laboratory Tests Test 11/29/16 11/29/16 05:00 11:50 White Blood Count 5.5 Red Blood Count 2.42 Hemoglobin 7.3 Hematocrit 22.9 Mean Corpuscular Volume 94.8 Mean Corpuscular Hemoglobin 30.2 Mean Corpuscular Hemoglobin 31.8 Concent Red Cell Distribution Width 15.5 Platelet Count 230 Mean Platelet Volume 8.9 Neutrophils (%) (Auto) 80.6 Lymphocytes (%) (Auto) 9.6 Monocytes (%) (Auto) 8.9 Eosinophils (%) (Auto) 0.7 Basophils (%) (Auto) 0.2 Neutrophils # (Auto) 4.4 Lymphocytes # (Auto) 0.5 Monocytes # (Auto) 0.5 Eosinophils # (Auto) 0.0 Basophils # (Auto) 0.0 CBC Comment DIFF FINAL Differential Comment Sodium Level 145 Potassium Level 3.9 Chloride Level 108 Carbon Dioxide Level 27.0 Anion Gap 10 Blood Urea Nitrogen 56 Creatinine 1.63 Estimat Glomerular Filtration 44 Rate Random Glucose 107 Calcium Level 8.5 Phosphorus Level 4.0 Magnesium Level 2.7 Total Bilirubin 0.4 Aspartate Amino Transf 18 (AST/SGOT) Alanine Aminotransferase LESS THAN 6 (ALT/SGPT) Alkaline Phosphatase 96 Total Creatine Kinase 317 Creatine Kinase MB 7.7 Creatine Kinase MB % 2.4 Total Protein 6.6 Albumin 1.6 Prothrombin Time 10.8 Prothromb Time International 1.0 Ratio Activated Partial 23.5 Thromboplast Time Date/Time Procedure Status Source Growth 11/25/16 11:20 Gram Stain Christopher Batch Sputum Endotracheal Pending 11/25/16 11:20 Sputum Culture Christopher Batch Sputum Endotracheal Pending 11/25/16 05:15 Urine Culture - Final Complete Urine Catheterized Urine NO GROWTH IN 48 HOURS. Physical Exam HEENT: Normocephalic; atraumatic CHEST: OETT to vent, course breath sounds. chest tube right chest, 20cm wall suction wiht serous drainage CARDIAC: RRR ABDOMEN: Abdomen soft, mildly distended, Bowel sounds present, flexiseal with brown stool EXTREMITIES: Generalized edema. SKIN: Multiple spotted lesions to ble/feet. 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 Abdomen/Pelvis CT (11/14/16)-----> 1. Multiple loops of fluid- filled small bowel which are larger in caliber in comparison to yesterday's examination although not enlarged by size criteria. This may reflect mild enteritis versus developing mild adynamic ileus. 2. Persistent luminal narrowing at the gastroduodenal junction without definite focal mass. This is of uncertain clinical significance and likely reflects gastric contraction. Gastric mass/metastatic disease is not very likely based on appearance although it cannot be excluded. 3. 2 cm ill-defined hypodense lesion in the left renal mid pole with indeterminate density. Differential considerations include complex cyst versus metastatic disease in this patient with apparent diffuse metastatic disease in the chest. 4. Redemonstration of multiple bilateral cavitary masses at the lung bases with loculated right pleural effusion. IMPROVED. Now sedated, but his pain resolved prior to being intubated. PPI. - Mild ileus/constipation. IMPROVED. Abdomen X-Ray (11/15/16)----> Probable mild ileus involving loops of bowel on the left side. + BM Lactulose, Miralax, Reglan. - Abnormal imaging with persistent luminal narrowing at the gastroduodenal junction without definite focal mass. PPI. Will need EGD during this admission, timing to be determined. - Anemia. Likely multifactorial. No active bleeding. 7.3/21.8. PRBC 1 PRBC. - Elevated alk phosphatase. Normalized. Hepatitis panel negative. - Bilateral cavitary lung lesions, right sided pleural effusion. CT Angiography (11/13/16)----> 1. Multiple cavitary lesions within both lungs with the largest measuring 9.5 cm in the right upper lobe. Differential diagnosis includes infectious and neoplastic etiologies. 2. Moderate sized right pleural effusion with adjacent compressive atelectasis and/or infiltrate. 3. Cardiomegaly and coronary artery calcifications. 4. Subcarinal mediastinal lymphadenopathy. Degenerative changes throughout the thoracic spine. S/P CT , but pt pulled out on 11/15. Pleural fluid with staphylococcus aureus. CT replaced. He became tachypneic on 11/[address] chest (11/16/16) ---> Right hydropneumothorax and bilateral cavitary masses greatest in the right upper lobe. Chest X-Ray (11/27/16)----> 1. Worsening dense consolidation of the right mid and lower lung. 2. Right mid lung cavitary mass again seen not significantly changed. 3. Patchy subpleural airspace opacities of the left lung not significantly changed. Pulm/ID/CCM following. Ancef - Sepsis with endocarditis and septic emboli. Abnormal 2D echo with moderate aortic regurgitation and CHANDNI with large vegetation. S/P CVT evaluation, no plans for surgical intervention at this time. Brain MRI (11/21/16)-----> Multifocal areas of restricted diffusion primarily in the periventricular and subcortical white matter bilaterally but also cortically based in the right frontal lobe. Findings likely represent ischemic change likely related to septic emboli given the patient's clinical history. No abscess or enhancing lesion is visualized. Abx per ID/CCM. Ancef. - Respiratory failure - per CCM s/p bronch, chest tube insertion, intubation PLAN: -PEG tube placed 11/29 - OK to use today for meds and flushes - OK to use PEG tube tomorrow for tube feeding. - Cont. Miralax - Cont. Lactulose - Cont. Reglan - Abx per ID/CCM - Monitor stool output - Supportive care Onur Figueroa MD Nov 29, 2016 15:52
--- NOTE | 2016-11-29 18:52 | HHI.PR ---
Subjective Remarks Patient was intubated last night for acute hypoxemic resp failure and a right chest tube was placed for right hydroPTX in addition patient underwent bronch with BAL ( mucous plugs b/l suctioned to clear). MRI brain multifocal area of septic emboli/infarct Sedated with diprivan and Fentanyl Had Trach and PEG Objective Vital Signs Vital Signs Date Time Temp Pulse Resp B/P Pulse Ox O2 Delivery O2 Flow Rate FiO2 11/29/16 18:00 94 11/29/16 16:03 98 35 11/29/16 16:00 35 11/29/16 16:00 88 11/29/16 16:00 98.6 88 18 108/54 97 11/29/16 14:00 95 11/29/16 13:45 100 35 11/29/16 13:15 100 100 11/29/16 12:00 91 11/29/16 12:00 35 11/29/16 12:00 99.6 91 18 104/54 98 11/29/16 12:00 100 100 11/29/16 10:51 97 35 11/29/16 10:00 93 11/29/16 08:26 98 35 11/29/16 08:00 90 11/29/16 08:00 35 11/29/16 08:00 98.3 90 18 111/56 98 11/29/16 06:00 91 11/29/16 04:07 96 35 11/29/16 04:00 90 11/29/16 04:00 98.2 90 18 107/54 98 11/29/16 04:00 35 11/29/16 02:00 97 11/29/16 01:20 96 35 11/29/16 00:00 35 11/29/16 00:00 86 11/29/16 00:00 98.3 86 18 103/53 100 11/28/16 22:59 98 35 11/28/16 22:00 90 11/28/16 20:00 86 11/28/16 20:00 97.5 86 18 108/53 100 11/28/16 20:00 35 11/28/16 19:47 98 35 I/O 11/28/16 11/28/16 11/28/16 11/29/16 11/29/16 11/29/16 06:59 14:59 22:59 06:59 14:59 22:59 Intake Total 862 ml 1399 ml 1393 ml 748 ml 655 ml Output Total 795 ml 614 ml 844 ml 538 ml 550 ml Balance 67 ml 785 ml 549 ml 210 ml 105 ml IV Total 326 ml 671 ml 508 ml 448 ml 655 ml Tube Feeding 416 ml 478 ml 535 ml 200 ml Other 120 ml 250 ml 350 ml 100 ml Output Urine Total 650 ml 500 ml 550 ml 350 ml 450 ml Stool Total 100 ml 100 ml 100 ml 100 ml 100 ml Chest Tube Drainage Total 45 ml 14 ml 194 ml 88 ml Result Diagram: 11/29/16 0500 11/29/16 0500 Objective Remarks GENERAL: Patient is 56 yo critically ill intubated , sedated and on pressors. SKIN: Warm and dry. HEAD: Normocephalic. EYES: No scleral icterus. No injection or drainage. NECK: Supple, trachea midline. No JVD or lymphadenopathy. CARDIOVASCULAR: Regular rate and rhythm without murmurs, gallops, or rubs. RESPIRATORY: Breath sounds equal bilaterally. No accessory muscle use. GASTROINTESTINAL: Abdomen soft, non-tender, nondistended. MUSCULOSKELETAL: No cyanosis, or edema. Neuro: Sedated and intubated A/P Assessment and Plan 1VDRF 2)Septic shock 3)Staph Aureus bacteremia 4)Empyema 6)Endocarditis involving AV 7)Leucocytosis 8)Cavitary pulm masses 2nd staph Aureus 9)Right hydroPTX PLAN: Continue with vent support keep sat >92% Bronchodilators, ICU vent bundle, on stress dose steroids- HC 100mg IV Q8 On PRVC/AC 20/520/1.10/10, 35% Abx per ID CTS is following- no intervention at this time. Chest tube to suction Sedation with Diprivan and fentanyl Emmett Bolton MD Nov 29, 2016 18:51
--- NOTE | 2016-11-29 22:55 | MR ---
cc: ONELIA GUEVARA HAROLD H. MD DATE OF SURGERY 11/29/2016 PROCEDURE Esophagogastroduodenoscopy with placement of percutaneous gastrostomy tube. INDICATION Need for long-term nutritional support. The patient is critically ill, on the ventilator. REFERRING PHYSICIAN Dr. Guevara PROCEDURE IN DETAIL After informed consent was obtained the patient was in the supine position on the ventilator. He has a newly placed tracheostomy tube. Additional sedation was provided by the anesthesia service. After adequate sedation was achieved the Pentax video gastroscope was inserted in the oropharynx, advanced to the esophagus, stomach and duodenum, was then slowly withdrawn examining the mucosal surfaces carefully. The stomach was then inflated well and excellent transillumination was obtained in the epigastrium. Excellent indentation was also present. The skin was then sterilized with Betadine. The skin was anesthetized with 1% Xylocaine down into the subcutaneous tissue. A stab wound was made in the skin with a scalpel. Through the wound a needle and catheter were advanced down into the stomach. This was visualized with the scope. The catheter was then grasped with a snare. The wire was advanced into the catheter into the stomach. The wire was then grasped with the snare and pulled out through the mouth. The PEG tube was then loaded onto the wire and pulled down through the mouth into the stomach and then out the skin and placed into the appropriate position. The scope was then advanced back into the stomach and the PEG tube internal retainer was identified to be in excellent position. The external retainer was attached and the other attachments were placed on the tube. The scope was then withdrawn and the procedure was terminated. He tolerated the procedure well and remained in the intensive care unit in critical condition. FINDINGS 1. The esophagus was normal. 2. The stomach was normal. 3. The duodenum was normal. 4. Excellent transillumination, indentation were performed and the PEG tube was placed in the usual way as described above without apparent complication. IMPRESSION Successful placement of percutaneous gastrostomy tube. PLAN 1. It is okay to use the tube for medications and flushes. 2. Okay to use the tube tomorrow for beginning his tube feeding. Onur Figueroa MD [facility]/EO /4:01 PM /10:48 PM
[2016-11-30] VITALS (18 sets, daily range): BP systolic 115–141; BP diastolic 56–63; PULSE 96–109; RESP 20–35; TEMP 98.5–101.3; O2SAT 96–100
[2016-11-30] MEDS: PROPOFOL 1000 MG/100 ML INJ 100 ML IV SCH ×6 (01:21→21:23)
[2016-11-30] MEDS: CHLORHEXIDINE GLUCONATE 2 % 1 PACK (2 CLOTHS) TOP SCH (04:00)
[2016-11-30] MEDS: RESP: ALBUTEROL 2.5 MG/IPRATROPIUM 0.5 MG NEB (SCH) NEB ×5 (04:13→20:53)
[2016-11-30] MEDS: INSULIN ASPART SUPPLEMENTAL SCALE SQ SCH ×4 (05:00→22:38)
[2016-11-30] MEDS: fentaNYL DRIP 250 ML IV SCH (05:28)
[2016-11-30] MEDS: METOCLOPRAMIDE HCL 10 MG/2 ML VIAL IV SCH ×3 (05:28→20:13)
[2016-11-30] MEDS: ARTIFICIAL TEARS OPTH SOLN 15 ML BTL EACH EYE SCH ×3 (05:29→20:13)
[2016-11-30] MEDS: FREE WATER G-TUBE SCH ×3 (05:29→20:13)
[2016-11-30] MEDS: CHLORHEXIDINE 0.12% (ORAL KIT) 15 ML CUP MT SCH ×2 (08:00→20:18)
--- NOTE | 2016-11-30 08:18 | HHI.CCPN ---
Subjective Remarks/Hospital Course 56-year-old male is brought to the emergency department by EMS for evaluation of generalized weakness, confusion for about 2 weeks, and also increasing shortness of breath. His oxygen saturation was 88% on room air. EMS administered breathing treatments and Solu-Medrol 125 mg 1 and placed him on nasal cannula. Patient states that he had been sick for almost 10 days, but he is a poor historian. He had a productive cough, but reports no hematemesis or weight loss. He states that it was his neighbor who made him called EMS. He has no past medical history and last time had seen a doctor was about 15 years ago. He denies any fevers but reports some night sweats and chills. He was tachycardic with a heart rate of 115 bpm, had severe leukocytosis with a white count of 35,000 with 91% neutrophils. CMP shows hyponatremia with a sodium of 126. Lactic acid is 2.4. His Chest x-ray shows large 7.7 x 7.8 cm cavitary right midlung lesion with associated right-sided pleural effusion. Subcentimeter left mid lung pulmonary nodules. Patient received 1 L normal saline bolus and Zosyn 4.5 g and Zithromax 500 mg IV and was placed on TB/ respiratory isolation. He has been being in care home 2 years ago increasing his risk of tuberculosis. CT pulmonary angiogram negative for PE but showed multiple cavitary lesions within both lungs with the largest measuring 9.5 cm in the right upper lobe. Moderate size right pleural effusion. I evaluated the patient in the emergency department. Patient appears critically ill in moderate distress mildly tachypneic, sweating. I performed a bedside ultrasound which showed a right effusion which is large. The thoracentesis was performed and 1 L of cloudy dark pleural fluid was removed. Patient will be continued on Zosyn and Levaquin and vancomycin. ID consulted and I discussed with Dr. Steele-she recommended no empiric treatments for TB. 11/14/16: Patient seen and examined complaints of severe epigastric and periumbilical abdominal pain. Patient remains oriented to person. His white count is slightly improved from 35,000-28,9000. Na improved to 136. I have ordered a STAT CT abd/pelvis with IV contrast. Chest x-ray shows reaccumulation of right pleural effusion-fluid chemistries are pending but cell count indicates at least a parapneumonic effusion and patient will need a pigtail chest tube 11/15: Patient pulled his right-sided pigtail catheter out overnight last night. Currently nasal cannula in no acute distress. Afebrile. Continues to have a leukocytosis. 11/16: Currently on room air. Hold out his IVs reportedly overnight last night. Requesting diet. Awake and alert and following commands. 11/17: Intubated yesterday due to acute hypercapnic respiratory failure. Hypoxic post intubation requiring right chest tube placement, bronchoscopy and Flolan. Bronchoscopy revealed thick mucous plugging at bilateral right and left mainstem which were clear. Improved oxygenation over the past 12 hours. Afebrile. 11/18 Patient remains sedated with Diprivan, Fentanyl and intubated. On Vasopressin and Neosyn 120 mics. 11/19 Patient is sedated with Diprivan, Fentanyl and intubated. Afebrile. Off all pressors. Afebrile. WBC is trending down 30 today from 50. 11/20: Remains severely septic and encephalopathic even though weaned off all pressors. White count still elevated but trending down. Became extremely tachycardic and tachypneic on lowering sedation. We'll check MRI of the brain to rule out embolic infarct. Family at the bedside updated 11/21 Remains heavily sedated, remains encephalopathic. MRI brain is pending. Family is at bedside. Remains critically with resp failure severe from endocarditis, now unable to wean off the ventilator due to severe metabolic encephalopathy 11/22 No events overnight. Sedated with Diprivan, fentanyl and intubated. Afebrile. MRI brain yesterday showed ischemic changes likely related to septic emboli. 11/23: Patient remains encephalopathic, severe hyponatremia possible contributing , Na is 157 today. Currently on Precedex and fentanyl. CXR shows increasing L effusion 11/24: Patient more awake today. Follows Commands but did not tolerate spontaneous breathing trials. Had left pigtail chest tube placed yesterday 1.6 L transudative fluid removal since placement 11/25 Patient is sedated with Diprivan, Fentanyl and intubated. T:99.9 11/26 No events overnight. Sedated and intubated. Patient was on CPAP x 3 hrs yesterday then became tachypneic. 11/27: Resting in bed comfortably on Diprivan at 40 mics grams per kilogram per minute and fentanyl drip at 200 an hour. Tolerated PSV trial 2 hours yesterday before becoming tachypnea. Positive BM via fecal containment device 1100 cc. Yesterday according to RN was following commands. 11/28: Currently afebrile. Tolerating PSV trials 1.5 hours today for became tachypneic. Awake and alert and follows commands. Neurologically intact. Positive BM. 11/29: Tmax 99.6. Status post percutaneous tracheostomy secondary to failed extubation trials. Plan for PEG tube today. Awake and interactive the ventilator on sedation vacation. Subjective 11/30: DrAzael currently 98.8. Status post percutaneous tracheostomy Dr. Baker yesterday and PEG tube placement by Dr. Figueroa. Tube feeds will be resumed today. Otherwise appears comfortable ventilator. Arousable and follows commands on sedation vacation. Objective Vital Signs Date Time Temp Pulse Resp B/P Pulse Ox O2 Delivery O2 Flow Rate FiO2 11/30/16 07:30 98 35 11/30/16 06:00 99 11/30/16 04:00 99.4 20 115/56 Intake and Output 11/29/16 11/29/16 11/30/16 08:00 16:00 00:00 Intake Total 748 ml 655 ml 461 ml Output Total 538 ml 550 ml 610 ml Balance 210 ml 105 ml -149 ml Result Diagram: 11/29/16 0500 11/30/16 0429 Other Results Microbiology Date/Time Procedure Status Source Growth 11/25/16 11:20 Gram Stain Christopher Batch Sputum Endotracheal Pending 11/25/16 11:20 Sputum Culture Christopher Batch Sputum Endotracheal Pending Imaging Last 72 hours Impressions Chest X-Ray 11/29/16 0000 Signed Impressions: Service Date/Time: Tuesday, November 29, 2016 14:01 - CONCLUSION: 1. Improving aeration of the pulmonary parenchyma. 2. No pneumothorax. Mike Padilla MD Objective Remarks GENERAL: 56-year-old male, critically ill currently on ventilator via tracheostomy SKIN: Warm and dry. Scattered skin lesions erythematous predominantly left lower extremity HEAD: Normocephalic and atraumatic. EYES: No injection, drainage. Pupils equally round and reactive around 3 mm bilaterally and reactive to 2 mm. ENT: No nasal drainage noted. Oropharynx is clear. Orotracheally intubated NECK: Supple. No JVD or thyromegaly or lymphadenopathy. Tracheostomy is clean dry and intact CARDIOVASCULAR: Tachycardic, RR. S1, S2. No S4. Aortic regurgitation murmur not appreciated. RESPIRATORY: Diminished breath sounds bilaterally. Mild expiratory wheezing and few crackles. Right chest tube 20 ml output, L pigtail 100 ml output in 24 hours GASTROINTESTINAL: Abdomen is soft, mildly distended no rebound or guarding on examination. Hypoactive bowel sounds are appreciated. PEG tube site is clean dry and intact MUSCULOSKELETAL: 1+ pitting edema bilateral lower extremities. Multiple erythematous raised lesions on bilateral lower extremity predominantly left lower leg NEUROLOGICAL: Awake, Moving all 4 extremity spontaneously and follows commands Date of Insertion: Nov 16, 2016 Date of Removal: Nov 21, 2016 Line: Central Venous Catheter Side: Left Location: Internal, Jugular A/P Assessment and Plan NEURO/PSYCH: Metabolic encephalopathy Septic brain emboli On Diprivan at 40 mg/kg/m and Fentanyl infusion at 200 an hour for sedation/ analgesia while on ventilator. Goal of RASS -2. Daily sedation vacation. steadily improving neuro exam EEG 11/24: Generalized encephalopathy without any significant epileptic activity. MRI brain 11/21: Ischemic changes throughout white matter likely related to septic emboli. Neuro consulted Dr. Hernandez and has followed intermittently CT head 11/17 revealed no acute intracranial findings currently no signs of gross embolic events. On Thiamine/MVI/Folic acid RESP: Bilateral cavitary lung lesions/most likely cavitating pneumonia from staph aureus Acute respiratory failure Large right loculated pleural effusion/empyema Left pleural effusion PRVC 16/600/1.1. Currently on PSV trial 04/22 at 40% Continue with vent support keep sat >92%. Duo nebs every 4 hours with albuterol nebs every 2 hours. Vent bundle. Status post tracheostomy by Dr. Baker 11/29 Right-sided chest tube #28 [place]- monitor CT drainage( Drained 20 ml in 24 hours) -20 cm H2O Left-sided chest tube #10 [place]- placed 11/24/16-drained 100ml in 24 hrs -20 cm H2O We'll place to waterseal today - Right thoracentesis with 1 L cloudy yellow fluid removed, fluid cell studies WBC 2,600, - Patient status post pigtail catheter placement 11/14, 445 cc prior pulled out 11/15. Evaluated by Dr. Samuels/CT surgery. Per his recommendations, No indication for decortication at this time CV: Aortic valve endocarditis/large vegetation Sinus tachycardia Atrial fibrillation with RVR early normal sinus rhythm Elevated troponin - likely rate dependent Monitor HR and BP keep MAP>65mmHg - Stress dose steroids-Hydrocortisone 50mg IV Q12 - 2-D echocardiogram revealed EF 55-60%. Moderate AR. CHANDNI revealed 17 mm x 17 millimeter mobile mass on aortic valve. limited echo 11/22 Persistent vegetation - CT surgery. Recommendations no intervention at this time GI: Hypoalbuminemia Moderate protein calorie malnutrition/acute Continue tube feeds with Glucerna 1.5@ 55 cc an hour. IV Protonix for GI prophylaxis. MiraLAX twice a day for bowel regimen Reglan for bowel motility - CT of the abdomen pelvis with IV contrast revealed possible ileus., Gastric contraction at gastric duodenal junction. 2 mm renal cyst. - KUB 11/15 revealed improving mild ileus. GI is following. : Santana catheter has been placed for accurate I's and O's in a critically ill patient ID: Severe sepsis New fever Multilobar cavitating pneumonia secondary staph aureus Staph aureus empyema - Continue with abx per ID ( IV Ancef) monitor for signs of infections ( Fever, WBC) WBC is trending down - Gentamicin discontinued 11/26 due to elevated creatinine currently 1.8 Pertinent cultures 11/13 - blood cultures 2 - staph aureus 11/13 and 11/14- pleural fluid- staph aureus 11/14- sputum- staph aureus 11/15 - blood cultures 2 -staph aureus 11/16 - Bronch samples: Staph Aureus 11/16 Sputum: Staph Aureus 11/19 - blood cultures 2 - no growth 11/23 - pleural fluid - no growth 11/24 - blood cultures 2 - no growth 11/25 - UA - negative 11/25 - sputum no growth HEME: Normocytic anemia - Monitor CBC, CMP, coags ENDO: SSI with accuchecks for glycemic control TSH 0.6. FEN: Hyper-magnesium Currently on D5 water at 100 cc now. Patient is very edematous/volume overload. We'll discontinue Free water flushes at 250 cc every 8 hours. Follow-up on sodium in a.m. RENAL: Acute kidney injury Creatinine currently 1.6 Check urine eosinophil/electrolytes Monitor urine output Accurate I's and O's Avoid nephrotoxic drugs PROPH: - Bilateral lower extremity SCDs. Heparin SQ, IV Protonix for prophylaxis LINES: - Left IJ CVL placed 11/16 discontinued unknown time. Currently with peripheral IVs Palliative care is following Critical Care: The total critical care time was 30 minutes. Time to perform other separately billable procedures was not included in the critical care time. Josh Saunders MD Nov 30, 2016 08:18
[2016-11-30] MEDS: SODIUM CHLORIDE 0.9% FLUSH 10 ML FLUSH IVF SCH (09:00)
[2016-11-30] MEDS: HYDROCORTISONE SOD SUCCINATE 100 MG VIAL IV PUSH SCH ×2 (09:02→20:12)
[2016-11-30] MEDS: PANTOPRAZOLE SODIUM 40 MG VIAL IV SCH ×2 (09:02→20:13)
[2016-11-30] MEDS: THIAMINE INJ 100 MG in SODIUM CHLORIDE 0.9% INJ 100 ML IV SCH (09:02)
[2016-11-30] MEDS: MULTIVITAMIN TAB PO SCH (09:03)
[2016-11-30] MEDS: LACTULOSE SYRUP 20 GM/30 ML CUP PO SCH (09:03)
[2016-11-30] MEDS: POLYETHYLENE GLYCOL 17 GM PKG PO SCH ×2 (09:03→20:13)
[2016-11-30] MEDS: FOLIC ACID 1 MG TAB PO SCH (09:03)
[2016-11-30] MEDS: SODIUM CHLORIDE 0.9% FLUSH 10 ML FLUSH IV FLUSH SCH ×2 (09:03→20:12)
[2016-11-30] MEDS: ceFAZolin 2 GM PREMIX 50 ML IV SCH ×2 (09:03→17:52)
[2016-11-30 12:52] LABS: HEMATOCRIT 25.3 % (39.0-51.0); MEAN CELL VOLUME 95.9 FL (80.0-100.0); MEAN CORPUSCULAR HGB CONC 32.3 % (32.0-36.0); PLATELET COUNT 338 TH/MM3 (150-450); RED BLOOD COUNT 2.64 MIL/MM3 (4.50-5.90); RED CELL DISTRIBUTION WIDTH 15.6 % (11.6-17.2); REVIEW FLAG FINAL; WHITE BLOOD COUNT 7.7 TH/MM3 (4.0-11.0)
[2016-11-30 13:18] LABS: BICARBONATE 23.5 MEQ/L (21.0-32.0); POTASSIUM 3.5 MEQ/L (3.5-5.1)
--- NOTE | 2016-11-30 14:03 | HHI.GIFU ---
Subjective Remarks trach to vent. s/p PEG. (Kristy Sweeney) Objective Vitals I&O Vital Signs Date Time Temp Pulse Resp B/P Pulse Ox O2 Delivery O2 Flow Rate FiO2 11/30/16 12:00 106 11/30/16 12:00 35 11/30/16 12:00 101.3 106 35 135/63 97 11/30/16 10:00 107 11/30/16 09:57 97 35 11/30/16 08:00 102 11/30/16 08:00 35 11/30/16 08:00 99.3 102 28 121/56 100 11/30/16 07:30 98 35 11/30/16 06:00 99 11/30/16 04:09 99 35 11/30/16 04:00 99.4 96 20 115/56 99 11/30/16 04:00 35 11/30/16 04:00 96 11/30/16 02:00 99 11/30/16 00:57 99 35 11/30/16 00:00 35 11/30/16 00:00 99.3 101 20 116/58 98 11/30/16 00:00 101 11/29/16 22:00 97 11/29/16 20:00 96 11/29/16 20:00 99.5 96 20 117/55 97 11/29/16 20:00 35 11/29/16 19:41 100 35 11/29/16 18:00 94 11/29/16 16:03 98 35 11/29/16 16:00 35 11/29/16 16:00 88 11/29/16 16:00 98.6 88 18 108/54 97 I/O 11/29/16 11/29/16 11/29/16 11/30/16 11/30/16 11/30/16 07:00 15:00 23:00 07:00 15:00 23:00 Intake Total 748 ml 655 ml 461 ml 613 ml 250 ml Output Total 538 ml 550 ml 610 ml 610 ml Balance 210 ml 105 ml -149 ml 3 ml 250 ml IV Total 448 ml 655 ml 311 ml 363 ml Tube Feeding 200 ml Other 100 ml 150 ml 250 ml 250 ml Output Urine Total 350 ml 450 ml 450 ml 550 ml Stool Total 100 ml 100 ml 100 ml 0 ml Chest Tube Drainage Total 88 ml 60 ml 60 ml Laboratory Laboratory Tests Test 11/30/16 11/30/16 04:29 11:55 Creatinine 1.63 1.59 Estimat Glomerular Filtration 44 45 Rate White Blood Count 7.7 Red Blood Count 2.64 Hemoglobin 8.2 Hematocrit 25.3 Mean Corpuscular Volume 95.9 Mean Corpuscular Hemoglobin 31.0 Mean Corpuscular Hemoglobin 32.3 Concent Red Cell Distribution Width 15.6 Platelet Count 338 Mean Platelet Volume 7.9 Sodium Level 144 Potassium Level 3.5 Chloride Level 108 Carbon Dioxide Level 23.5 Anion Gap 13 Blood Urea Nitrogen 50 Random Glucose 92 Calcium Level 8.3 Imaging Last Impressions Chest X-Ray 11/29/16 0000 Signed Impressions: Service Date/Time: Tuesday, November 29, 2016 14:01 - CONCLUSION: 1. Improving aeration of the pulmonary parenchyma. 2. No pneumothorax. Mike Padilla MD Brain MRI 11/21/16 0000 Signed Impressions: Service Date/Time: November 12:33 - CONCLUSION: Multifocal areas of restricted diffusion primarily in the periventricular and subcortical white matter bilaterally but also cortically based in the right frontal lobe. Findings likely represent ischemic change likely related to septic emboli given the patient's clinical history. No abscess or enhancing lesion is visualized. Agustin Bonner MD Head CT 11/17/16 0600 Signed Impressions: Service Date/Time: Thursday, November 17, 2016 10:39 - CONCLUSION: No significant change has occurred. Deven Urrutia MD Chest CT 11/16/16 0000 Signed Impressions: Service Date/Time: Wednesday, November 16, 2016 20:36 - CONCLUSION: 1. New right chest tube in the posterior superior right pleural space. There continues to be a moderate right pleural effusion primarily seen at the base. Some degree of loculation may be present inferiorly. The effusion does not layer posteriorly. There are scattered punctate areas of air within the pleural space inferiorly on the right. There is a solitary small area of air within the mild left pleural effusion. 2. Numerous irregular masses seen throughout both lungs some which are cavitary. These are nonspecific. Inflammatory masses needs be suspected. The multiplicity raises possibility of septic emboli. Agustin Price MD Abdomen X-Ray 11/15/16 0600 Signed Impressions: Service Date/Time: Tuesday, November 15, 2016 03:07 - CONCLUSION: Probable mild ileus involving loops of bowel on the left side. Reba Banerjee MD Abdomen/Pelvis CT 11/14/16 0000 Signed Impressions: Service Date/Time: October 09:55 - CONCLUSION: 1. Multiple loops of fluid-filled small bowel which are larger in caliber in comparison to yesterday's examination although not enlarged by size criteria. This may reflect mild enteritis versus developing mild adynamic ileus. 2. Persistent luminal narrowing at the gastroduodenal junction without definite focal mass. This is of uncertain clinical significance and likely reflects gastric contraction. Gastric mass/metastatic disease is not very likely based on appearance although it cannot be excluded. 3. 2 cm ill-defined hypodense lesion in the left renal mid pole with indeterminate density. Differential considerations include complex cyst versus metastatic disease in this patient with apparent diffuse metastatic disease in the chest. 4. Redemonstration of multiple bilateral cavitary masses at the lung bases with loculated right pleural effusion. Elder Long MD CT Angiography 11/13/16 1328 Signed Impressions: Service Date/Time: Sunday, November 13, 2016 15:50 - CONCLUSION: 1. Multiple cavitary lesions within both lungs with the largest measuring 9.5 cm in the right upper lobe. Differential diagnosis includes infectious and neoplastic etiologies. 2. Moderate sized right pleural effusion with adjacent compressive atelectasis and/or infiltrate. 3. Cardiomegaly and coronary artery calcifications. 4. Subcarinal mediastinal lymphadenopathy. 5. Degenerative changes throughout the thoracic spine. Jed Ponce MD Physical Exam HEENT: Normocephalic; atraumatic CHEST: trach to vent, course breath sounds. chest tube right chest, 20cm wall suction with serous drainage CARDIAC: RRR ABDOMEN: Abdomen soft, mildly distended, Bowel sounds present, PEG site free of erythema, swelling EXTREMITIES: Generalized edema. SKIN: Multiple spotted lesions to ble/feet. [employer] WORK[employer]: sedated on vent (Kristy Sweeney) Assessment and Plan Plan ASSESSMENT - Abdominal pain. Abdomen/Pelvis CT (11/14/16)-----> 1. Multiple loops of fluid- filled small bowel which are larger in caliber in comparison to yesterday's examination although not enlarged by size criteria. This may reflect mild enteritis versus developing mild adynamic ileus. 2. Persistent luminal narrowing at the gastroduodenal junction without definite focal mass. This is of uncertain clinical significance and likely reflects gastric contraction. Gastric mass/metastatic disease is not very likely based on appearance although it cannot be excluded. 3. 2 cm ill-defined hypodense lesion in the left renal mid pole with indeterminate density. Differential considerations include complex cyst versus metastatic disease in this patient with apparent diffuse metastatic disease in the chest. 4. Redemonstration of multiple bilateral cavitary masses at the lung bases with loculated right pleural effusion. IMPROVED. Now sedated, but his pain resolved prior to being intubated. PPI. - Mild ileus/constipation. IMPROVED. Abdomen X-Ray (11/15/16)----> Probable mild ileus involving loops of bowel on the left side. + BM Lactulose, Miralax, Reglan. - Abnormal imaging with persistent luminal narrowing at the gastroduodenal junction without definite focal mass. PPI. s/p PEG placement, EGD normal 11/29 - Anemia. Likely multifactorial. No active bleeding. - Elevated alk phosphatase. Normalized. Hepatitis panel negative. - Bilateral cavitary lung lesions, right sided pleural effusion. CT Angiography (11/13/16)----> 1. Multiple cavitary lesions within both lungs with the largest measuring 9.5 cm in the right upper lobe. Differential diagnosis includes infectious and neoplastic etiologies. 2. Moderate sized right pleural effusion with adjacent compressive atelectasis and/or infiltrate. 3. Cardiomegaly and coronary artery calcifications. 4. Subcarinal mediastinal lymphadenopathy. Degenerative changes throughout the thoracic spine. S/P CT , but pt pulled out on 11/15. Pleural fluid with staphylococcus aureus. CT replaced. He became tachypneic on 11/[address] chest (11/16/16) ---> Right hydropneumothorax and bilateral cavitary masses greatest in the right upper lobe. Chest X-Ray (11/27/16)----> 1. Worsening dense consolidation of the right mid and lower lung. 2. Right mid lung cavitary mass again seen not significantly changed. 3. Patchy subpleural airspace opacities of the left lung not significantly changed. Pulm/ID/CCM following. Ancef - Sepsis with endocarditis and septic emboli. Abnormal 2D echo with moderate aortic regurgitation and CHANDNI with large vegetation. S/P CVT evaluation, no plans for surgical intervention at this time. Brain MRI (11/21/16)-----> Multifocal areas of restricted diffusion primarily in the periventricular and subcortical white matter bilaterally but also cortically based in the right frontal lobe. Findings likely represent ischemic change likely related to septic emboli given the patient's clinical history. No abscess or enhancing lesion is visualized. Abx per ID/CCM. Ancef. - Respiratory failure - per CCM s/p bronch, chest tube insertion, intubation PLAN: - OK to start TF - Cont. Miralax - Cont. Lactulose - Cont. Reglan - Abx per ID/CCM - Monitor stool output - Supportive care THis pt seen by myself and DR Mccarty and this note is written on his behalf ( Kristy Sweeney) Physician Comments patient was seen and examined, agree with above note and plan, may start using PEG, we will sign off, pls call GI with any question (Alec Mccarty MD) Kristy Sweeney Nov 30, 2016 14:03 Alec Mccarty MD Nov 30, 2016 16:02
--- NOTE | 2016-11-30 16:19 | HHI.PR ---
Subjective Subjective Notes Sedated Objective Vitals/I&O Vital Signs Date Time Temp Pulse Resp B/P Pulse Ox O2 Delivery O2 Flow Rate FiO2 11/30/16 15:49 100 35 11/30/16 14:00 109 11/30/16 12:00 101.3 35 135/63 Labs Laboratory Tests Test 11/30/16 11/30/16 04:29 11:55 Creatinine 1.63 1.59 Estimat Glomerular Filtration 44 45 Rate White Blood Count 7.7 Red Blood Count 2.64 Hemoglobin 8.2 Hematocrit 25.3 Mean Corpuscular Volume 95.9 Mean Corpuscular Hemoglobin 31.0 Mean Corpuscular Hemoglobin 32.3 Concent Red Cell Distribution Width 15.6 Platelet Count 338 Mean Platelet Volume 7.9 Sodium Level 144 Potassium Level 3.5 Chloride Level 108 Carbon Dioxide Level 23.5 Anion Gap 13 Blood Urea Nitrogen 50 Random Glucose 92 Calcium Level 8.3 Narrative Exam Trach site clean with minimal old bloody drainage A/P Assessment and Plan POD #1 trach placement; no issues Will sign off; please reconsult if needed. Krzysztof Davidson MD Nov 30, 2016 16:19
--- NOTE | 2016-11-30 18:09 | MP ---
cc: ALEX BAKER MD DATE OF SURGERY: 11/29/2016. PREOPERATIVE DIAGNOSIS: Acute respiratory failure, prolonged ventilation POSTOPERATIVE DIAGNOSIS: Acute respiratory failure, prolonged ventilation PROCEDURE PERFORMED: Percutaneous tracheostomy under bronchoscopic surveillance. SURGEON Dr. Alex Baker. RIDE ATTENDANT: Dr. Saunders for bronchoscopy. ANESTHESIA: Vecuronium 50, Versed 3, propofol 40, fentanyl 200. WOUND CLASSIFICATION: Clean. COMPLICATIONS: None. SPECIMEN: None FINDINGS: Good end tidal bilateral lungs. Exam clear on auscultation. Mucus in distal airway. INDICATIONS FOR THE PROCEDURE: The patient is 56-year-old male who presented with increased shortness of breath increased work of breathing, leukocytosis, septic, hyponatremia who presented with abdominal pain and went into acute respiratory failure. Multiple medical consultation were undertaken. Patient on prolonged ventilation greater than three weeks. Therefore decision was made for surgical airway including percutaneous tracheostomy. DESCRIPTION OF THE PROCEDURE IN DETAIL: The patient was prepped and draped in the usual sterile fashion after a time-out stating correct patient, procedure and surgical site. The patient was preoxygenated to 100% and placed on 100% FIO2. Dr. Saunders was at the top and did a bronchoscopy through the ET tube for direct visualization. I was scrubbed in by the patient's bedside for the percutaneous tracheostomy. Local anesthetic was directed to the midline trachea. The sternal notch and cricoid were identified and two rings distally were palpated. Incision was made midline with a #15 blade scalpel. Further dissection with a hemostat clamp. The trachea was identified. The second ring was again identified. An introducer needle or Angiocath was placed again under direct bronchoscopic surveillance. The needle pierced trachea and the Angiocath was advanced. Next the wire was advanced following this. A punch dilator was used x3. Next the blue rhino dilator was used x3. At this point, the trachea was dilated enough. The ET tube had been pulled back and retracted clear of the trachea. Next the #8 non-fenestrated cuffed Shiley tracheostomy was done and placed through the surgical airway over the guidewire. It was snugly in place and noted to be clearly above the joseph at its distal tip. The wire and tips were removed. The inner cannula was placed. The balloon was inflated and hooked up to end tidal CO2 confirmation of good oxygen and CO2 exchange an correct placement. Again this was also done under directed surveillance confirming adequate placement. Next the tracheostomy was sutured in place with four PDS 3-0 sutures. The neck collar was then placed. Dr. Saunders advanced the bronchoscope and will dictate his portion of the procedure but it was inspected and noted to be hemostatic and in good position. No complications. The patient tolerated procedure. MD SNOW Chicas/HARRIS /11:07 PM /5:56 PM [email or web address]
[2016-12-01] VITALS (18 sets, daily range): BP systolic 125–141; BP diastolic 58–65; PULSE 100–113; RESP 23–36; TEMP 99–100.4; O2SAT 92–100
[2016-12-01] MEDS: RESP: ALBUTEROL 2.5 MG/IPRATROPIUM 0.5 MG NEB (SCH) NEB ×7 (00:12→23:38)
[2016-12-01] MEDS: ceFAZolin 2 GM PREMIX 50 ML IV SCH ×3 (00:24→17:44)
[2016-12-01] MEDS: CHLORHEXIDINE GLUCONATE 2 % 1 PACK (2 CLOTHS) TOP SCH ×2 (00:24→20:30)
[2016-12-01] MEDS: fentaNYL DRIP 250 ML IV SCH ×2 (00:24→17:45)
[2016-12-01] MEDS: PROPOFOL 1000 MG/100 ML INJ 100 ML IV SCH ×7 (04:25→21:27)
[2016-12-01] MEDS: INSULIN ASPART SUPPLEMENTAL SCALE SQ SCH ×4 (04:28→23:00)
--- NOTE | 2016-12-01 05:08 | RADRPT ---
EXAM DATE/TIME: 12/01/2016 04:22 [facility] COMPARISON: CHEST SINGLE AP, November 29, 2016, 14:01. INDICATIONS : Shortness of breath, possible pulmonary disease. MEDICAL HISTORY : Sepsis. Cavitary mass SURGICAL HISTORY : thoracentesis ENCOUNTER: Subsequent ACUITY: 3 weeks PAIN SCORE: Non-responsive. LOCATION: Bilateral chest FINDINGS: Consolidation, small left effusion and tracheostomy tube again noted. No significant interval change. Cardiomegaly.No significant change has occurred. CONCLUSION: No significant change has occurred. Deven Urrutia MD on December 01, 2016 at 5:06 Board Certified Radiologist. This report was verified electronically.
[2016-12-01 05:17] LABS: AUTOMATED NEUTROPHIL # 4.7 TH/MM3 (1.8-7.7); BASOPHIL % 0.2 % (0.0-2.0); EOSINOPHIL % 0.5 % (0.0-4.0); HEMATOCRIT 23.5 % (39.0-51.0); HEMO FLAGS DIFF FINAL; LYMPH % 10.5 % (9.0-44.0); LYMPHOCYTE # 0.6 TH/MM3 (1.0-4.8); MEAN CORPUSCULAR HEMOGLOBIN 30.8 PG (27.0-34.0); MEAN CORPUSCULAR HGB CONC 32.7 % (32.0-36.0); MONO % 10.3 % (0.0-8.0); NEUT % 78.5 % (16.0-70.0); PLATELET COUNT 311 TH/MM3 (150-450); RED CELL DISTRIBUTION WIDTH 16.2 % (11.6-17.2)
[2016-12-01 05:31] LABS: ANION GAP 8 MEQ/L (5-15); AST (GOT) 15 U/L (15-37); BLOOD UREA NITROGEN 46 MG/DL (7-18); CHLORIDE 110 MEQ/L (98-107); GLOMERULAR FILTRATION RATE 53 ML/MIN (>89); MAGNESIUM 2.2 MG/DL (1.5-2.5); POTASSIUM 3.1 MEQ/L (3.5-5.1); SODIUM (NA) 145 MEQ/L (136-145)
[2016-12-01 05:33] LABS: ALT (GPT) LESS THAN 6 U/L (12-78)
[2016-12-01] MEDS: METOCLOPRAMIDE HCL 10 MG/2 ML VIAL IV SCH ×3 (05:33→20:29)
[2016-12-01] MEDS: FREE WATER G-TUBE SCH ×3 (05:33→20:29)
[2016-12-01] MEDS: ARTIFICIAL TEARS OPTH SOLN 15 ML BTL EACH EYE SCH ×3 (05:34→20:28)
[2016-12-01 05:35] LABS: ALKALINE PHOSPHATASE 81 U/L (45-117); TOTAL BILIRUBIN ADULT 0.5 MG/DL (0.2-1.0)
[2016-12-01] MEDS: CHLORHEXIDINE 0.12% (ORAL KIT) 15 ML CUP MT SCH ×2 (08:00→20:28)
[2016-12-01] MEDS: SODIUM CHLORIDE 0.9% FLUSH 10 ML FLUSH IVF SCH (09:00)
[2016-12-01] MEDS: HYDROCORTISONE SOD SUCCINATE 100 MG VIAL IV PUSH SCH ×2 (09:25→20:28)
[2016-12-01] MEDS: LACTULOSE SYRUP 20 GM/30 ML CUP PO SCH (09:25)
[2016-12-01] MEDS: FOLIC ACID 1 MG TAB PO SCH (09:25)
[2016-12-01] MEDS: POLYETHYLENE GLYCOL 17 GM PKG PO SCH ×2 (09:25→20:28)
[2016-12-01] MEDS: MULTIVITAMIN TAB PO SCH (09:25)
[2016-12-01] MEDS: PANTOPRAZOLE SODIUM 40 MG VIAL IV SCH ×2 (09:26→20:28)
[2016-12-01] MEDS: SODIUM CHLORIDE 0.9% FLUSH 10 ML FLUSH IV FLUSH SCH ×2 (09:27→20:29)
[2016-12-01] MEDS: THIAMINE INJ 100 MG in SODIUM CHLORIDE 0.9% INJ 100 ML IV SCH (09:27)
--- NOTE | 2016-12-01 10:07 | HHI.CCPN ---
Subjective Remarks/Hospital Course 56-year-old male is brought to the emergency department by EMS for evaluation of generalized weakness, confusion for about 2 weeks, and also increasing shortness of breath. His oxygen saturation was 88% on room air. EMS administered breathing treatments and Solu-Medrol 125 mg 1 and placed him on nasal cannula. Patient states that he had been sick for almost 10 days, but he is a poor historian. He had a productive cough, but reports no hematemesis or weight loss. He states that it was his neighbor who made him called EMS. He has no past medical history and last time had seen a doctor was about 15 years ago. He denies any fevers but reports some night sweats and chills. He was tachycardic with a heart rate of 115 bpm, had severe leukocytosis with a white count of 35,000 with 91% neutrophils. CMP shows hyponatremia with a sodium of 126. Lactic acid is 2.4. His Chest x-ray shows large 7.7 x 7.8 cm cavitary right midlung lesion with associated right-sided pleural effusion. Subcentimeter left mid lung pulmonary nodules. Patient received 1 L normal saline bolus and Zosyn 4.5 g and Zithromax 500 mg IV and was placed on TB/ respiratory isolation. He has been being in intermediate 2 years ago increasing his risk of tuberculosis. CT pulmonary angiogram negative for PE but showed multiple cavitary lesions within both lungs with the largest measuring 9.5 cm in the right upper lobe. Moderate size right pleural effusion. I evaluated the patient in the emergency department. Patient appears critically ill in moderate distress mildly tachypneic, sweating. I performed a bedside ultrasound which showed a right effusion which is large. The thoracentesis was performed and 1 L of cloudy dark pleural fluid was removed. Patient will be continued on Zosyn and Levaquin and vancomycin. ID consulted and I discussed with Dr. Steele-she recommended no empiric treatments for TB. 11/14/16: Patient seen and examined complaints of severe epigastric and periumbilical abdominal pain. Patient remains oriented to person. His white count is slightly improved from 35,000-28,9000. Na improved to 136. I have ordered a STAT CT abd/pelvis with IV contrast. Chest x-ray shows reaccumulation of right pleural effusion-fluid chemistries are pending but cell count indicates at least a parapneumonic effusion and patient will need a pigtail chest tube 11/15: Patient pulled his right-sided pigtail catheter out overnight last night. Currently nasal cannula in no acute distress. Afebrile. Continues to have a leukocytosis. 11/16: Currently on room air. Hold out his IVs reportedly overnight last night. Requesting diet. Awake and alert and following commands. 11/17: Intubated yesterday due to acute hypercapnic respiratory failure. Hypoxic post intubation requiring right chest tube placement, bronchoscopy and Flolan. Bronchoscopy revealed thick mucous plugging at bilateral right and left mainstem which were clear. Improved oxygenation over the past 12 hours. Afebrile. 11/18 Patient remains sedated with Diprivan, Fentanyl and intubated. On Vasopressin and Neosyn 120 mics. 11/19 Patient is sedated with Diprivan, Fentanyl and intubated. Afebrile. Off all pressors. Afebrile. WBC is trending down 30 today from 50. 11/20: Remains severely septic and encephalopathic even though weaned off all pressors. White count still elevated but trending down. Became extremely tachycardic and tachypneic on lowering sedation. We'll check MRI of the brain to rule out embolic infarct. Family at the bedside updated 11/21 Remains heavily sedated, remains encephalopathic. MRI brain is pending. Family is at bedside. Remains critically with resp failure severe from endocarditis, now unable to wean off the ventilator due to severe metabolic encephalopathy 11/22 No events overnight. Sedated with Diprivan, fentanyl and intubated. Afebrile. MRI brain yesterday showed ischemic changes likely related to septic emboli. 11/23: Patient remains encephalopathic, severe hyponatremia possible contributing , Na is 157 today. Currently on Precedex and fentanyl. CXR shows increasing L effusion 11/24: Patient more awake today. Follows Commands but did not tolerate spontaneous breathing trials. Had left pigtail chest tube placed yesterday 1.6 L transudative fluid removal since placement 11/25 Patient is sedated with Diprivan, Fentanyl and intubated. T:99.9 11/26 No events overnight. Sedated and intubated. Patient was on CPAP x 3 hrs yesterday then became tachypneic. 11/27: Resting in bed comfortably on Diprivan at 40 mics grams per kilogram per minute and fentanyl drip at 200 an hour. Tolerated PSV trial 2 hours yesterday before becoming tachypnea. Positive BM via fecal containment device 1100 cc. Yesterday according to RN was following commands. 11/28: Currently afebrile. Tolerating PSV trials 1.5 hours today for became tachypneic. Awake and alert and follows commands. Neurologically intact. Positive BM. 11/29: Tmax 99.6. Status post percutaneous tracheostomy secondary to failed extubation trials. Plan for PEG tube today. Awake and interactive the ventilator on sedation vacation. Subjective 11/30: DrAzael currently 98.8. Status post percutaneous tracheostomy Dr. Baker yesterday and PEG tube placement by Dr. Figueroa. Tube feeds will be resumed today. Otherwise appears comfortable ventilator. Arousable and follows commands on sedation vacation. 11/30: Patient becomes tachypneic on attempted CPAP, even with high pressure support. I will add by mouth Ativan to reduce IV sedation requirement. Decreasing chest tube output Objective Vital Signs Date Time Temp Pulse Resp B/P Pulse Ox O2 Delivery O2 Flow Rate FiO2 12/01/16 08:03 98 35 12/01/16 08:00 104 12/01/16 08:00 99.7 32 140/65 Intake and Output 11/30/16 11/30/16 12/01/16 08:00 16:00 00:00 Intake Total 613 ml 959 ml 808 ml Output Total 610 ml 750 ml 800 ml Balance 3 ml 209 ml 8 ml Result Diagram: 12/01/16 0431 12/01/16 0431 Imaging Last 72 hours Impressions Chest X-Ray 11/29/16 0000 Signed Impressions: Service Date/Time: Tuesday, November 29, 2016 14:01 - CONCLUSION: 1. Improving aeration of the pulmonary parenchyma. 2. No pneumothorax. Mike Padilla MD Objective Remarks GENERAL: 56-year-old male, critically ill currently on ventilator via tracheostomy SKIN: Warm and dry. Scattered skin lesions erythematous predominantly left lower extremity HEAD: Normocephalic and atraumatic. EYES: No injection, drainage. Pupils equally round and reactive around 3 mm bilaterally and reactive to 2 mm. ENT: No nasal drainage noted. Oropharynx is clear. Orotracheally intubated NECK: Supple. No JVD or thyromegaly or lymphadenopathy. Tracheostomy is clean dry and intact CARDIOVASCULAR: Tachycardic, RR. S1, S2. No S4. Aortic regurgitation murmur not appreciated. RESPIRATORY: Diminished breath sounds bilaterally. Mild expiratory wheezing and few crackles. Right chest tube 5 ml output, L pigtail 40 ml output in 24 hours GASTROINTESTINAL: Abdomen is soft, mildly distended no rebound or guarding on examination. Hypoactive bowel sounds are appreciated. PEG tube site is clean dry and intact MUSCULOSKELETAL: 1+ pitting edema bilateral lower extremities. Multiple erythematous raised lesions on bilateral lower extremity predominantly left lower leg NEUROLOGICAL: Awake, Moving all 4 extremity spontaneously and follows commands on sedation lightening Date of Insertion: Nov 16, 2016 Date of Removal: Nov 21, 2016 Line: Central Venous Catheter Side: Left Location: Internal, Jugular A/P Assessment and Plan NEURO/PSYCH: Metabolic encephalopathy Septic brain emboli On Diprivan at 30 mg/kg/m and Fentanyl infusion at 150 an hour for sedation/ analgesia while on ventilator. Goal of RASS -1. Add Ativan 1 mg PO [id number] to reduce IV sedation Daily sedation vacation. steadily improving neuro exam EEG 11/24: Generalized encephalopathy without any significant epileptic activity. MRI brain 11/21: Ischemic changes throughout white matter likely related to septic emboli. Neuro consulted Dr. Hernandez and has followed intermittently CT head 11/17 revealed no acute intracranial findings currently no signs of gross embolic events. On Thiamine/MVI/Folic acid RESP: Bilateral cavitary lung lesions/most likely cavitating pneumonia from staph aureus Acute respiratory failure Large right loculated pleural effusion/empyema Left pleural effusion PRVC 16/600/1.1//40. Attempt PSV trial /5 at 40% Continue with vent support keep sat >92%. Duo nebs every 4 hours with albuterol nebs every 2 hours. Vent bundle. Status post tracheostomy by Dr. Baker 11/29 Right-sided chest tube #28 Somali- monitor CT drainage( Drained 20 ml in 24 hours) -20 cm H2O Left-sided chest tube #10 Somali- placed 11/24/16-drained 100ml in 24 hrs -20 cm H2O We'll place Left CT to water seal today - Right thoracentesis with 1 L cloudy yellow fluid removed, fluid cell studies WBC 2,600, - Patient status post pigtail catheter placement 11/14, 445 cc prior pulled out 11/15. Evaluated by Dr. Samuels/CT surgery. Per his recommendations, No indication for decortication at this time CV: Aortic valve endocarditis/large vegetation Sinus tachycardia Atrial fibrillation with RVR early normal sinus rhythm Elevated troponin - likely rate dependent Monitor HR and BP keep MAP>65mmHg - Stress dose steroids-Hydrocortisone 50mg IV Q12 - 2-D echocardiogram revealed EF 55-60%. Moderate AR. CHANDNI revealed 17 mm x 17 millimeter mobile mass on aortic valve. limited echo 11/22 Persistent vegetation - CT surgery. Recommendations no intervention at this time GI: Hypoalbuminemia Moderate protein calorie malnutrition/acute Continue tube feeds with Glucerna 1.5@ 55 cc an hour. IV Protonix for GI prophylaxis. MiraLAX twice a day for bowel regimen Reglan for bowel motility - CT of the abdomen pelvis with IV contrast revealed possible ileus., Gastric contraction at gastric duodenal junction. 2 mm renal cyst. - KUB 11/15 revealed improving mild ileus. GI is following s/p PEG placement 11/29/16 : Santana catheter has been placed for accurate I's and O's in a critically ill patient ID: Severe sepsis New fever Multilobar cavitating pneumonia secondary staph aureus Staph aureus empyema Aortic valve endocarditis - Continue with abx per ID ( IV Ancef) monitor for signs of infections ( Fever, WBC) WBC is trending down - Gentamicin discontinued 11/26 due to elevated creatinine currently 1.8 Pertinent cultures 11/13 - blood cultures 2 - staph aureus 11/13 and 11/14- pleural fluid- staph aureus 11/14- sputum- staph aureus 11/15 - blood cultures 2 -staph aureus 11/16 - Bronch samples: Staph Aureus 11/16 Sputum: Staph Aureus 11/19 - blood cultures 2 - no growth 11/23 - pleural fluid - no growth 11/24 - blood cultures 2 - no growth 11/25 - UA - negative 11/25 - sputum no growth HEME: Normocytic anemia - Monitor CBC, CMP, coags ENDO: SSI with accuchecks for glycemic control TSH 0.6. FEN: Hyper-magnesium Free water flushes at 250 cc every 8 hours. Follow-up on sodium 145 RENAL: Acute kidney injury Creatinine currently 1.4 Check urine eosinophil/electrolytes Monitor urine output Accurate I's and O's Avoid nephrotoxic drugs PROPH: - Bilateral lower extremity SCDs. Heparin SQ, IV Protonix for prophylaxis LINES: - Left IJ CVL placed 11/16 discontinued unknown time. Currently with peripheral IVs Palliative care is following Critical Care: The total critical care time was 30 minutes. Time to perform other separately billable procedures was not included in the critical care time. Jan Velez MD Dec 01, 2016 10:07 Jan Velez MD Dec 01, 2016 10:07
[2016-12-01] MEDS ORDERED: MAGNESIUM OXIDE 400 MG TAB PO PRN (10:15)
[2016-12-01] MEDS ORDERED: POTASSIUM PHOSPHATE MONOBASIC 500 MG TAB PO/TUBE PRN (10:15)
[2016-12-01] MEDS ORDERED: MAGNESIUM SULFATE INJ 2 GM in SODIUM CHLORIDE 0.9% INJ 96 ML IV PRN (10:15)
[2016-12-01] MEDS ORDERED: MAGNESIUM SULFATE INJ 4 GM in SODIUM CHLORIDE 0.9% INJ 92 ML IV PRN (10:15)
[2016-12-01] MEDS ORDERED: POTASSIUM CHLOR 40 MEQ PREMIX 100 ML IV PRN ×2 (10:15)
[2016-12-01] MEDS ORDERED: POTASSIUM CHLORIDE 25 MEQ EFFERVESCENT TAB PO PRN (10:15)
[2016-12-01] MEDS ORDERED: SODIUM PHOSPHATE INJ 30 MMOL in SODIUM CHLOR 0.9% 250 ML INJ 240 ML IV PRN (10:15)
[2016-12-01] MEDS ORDERED: POTASSIUM PHOSPHATE INJ 30 MMOL in SODIUM CHLOR 0.9% 250 ML INJ 250 ML IV PRN (10:15)
[2016-12-01] MEDS ORDERED: POTASSIUM PHOSPHATE MONOBASIC 500 MG TAB PO PRN (10:15)
[2016-12-01] MEDS: LORazepam 1 MG TAB PO SCH ×2 (13:26→20:29)
[2016-12-01] MEDS: POTASSIUM CHLOR 20 MEQ PREMIX 100 ML IV PRN ×3 (13:35→17:36)
[2016-12-01] MEDS: HEPARIN SODIUM - SQ 10,000 UNITS/ML VIAL SQ SCH (20:29)
[2016-12-02] VITALS (34 sets, daily range): BP systolic 129–150; BP diastolic 60–70; PULSE 96–113; RESP 0–33; TEMP 98.7–103; O2SAT 82–98
[2016-12-02] MEDS: PROPOFOL 1000 MG/100 ML INJ 100 ML IV SCH ×7 (01:40→23:55)
[2016-12-02] MEDS: ceFAZolin 2 GM PREMIX 50 ML IV SCH ×3 (01:40→17:12)
[2016-12-02 02:19] LABS: AUTOMATED NEUTROPHIL # 6.1 TH/MM3 (1.8-7.7); BASOPHIL % 0.3 % (0.0-2.0); EOSINOPHIL % 0.3 % (0.0-4.0); HEMATOCRIT 23.2 % (39.0-51.0); HEMO FLAGS DIFF FINAL; LYMPH % 8.3 % (9.0-44.0); LYMPHOCYTE # 0.6 TH/MM3 (1.0-4.8); MEAN CELL VOLUME 95.1 FL (80.0-100.0); MEAN CORPUSCULAR HEMOGLOBIN 30.7 PG (27.0-34.0); MEAN CORPUSCULAR HGB CONC 32.3 % (32.0-36.0); MONO % 9.2 % (0.0-8.0); NEUT % 81.9 % (16.0-70.0); PLATELET COUNT 276 TH/MM3 (150-450); RED BLOOD COUNT 2.44 MIL/MM3 (4.50-5.90); RED CELL DISTRIBUTION WIDTH 15.8 % (11.6-17.2); WHITE BLOOD COUNT 7.4 TH/MM3 (4.0-11.0)
[2016-12-02 02:33] LABS: ALT (GPT) LESS THAN 6 U/L (12-78); ANION GAP 7 MEQ/L (5-15); AST (GOT) 10 U/L (15-37); BICARBONATE 26.8 MEQ/L (21.0-32.0); BLOOD UREA NITROGEN 41 MG/DL (7-18); CHLORIDE 112 MEQ/L (98-107); GLOMERULAR FILTRATION RATE 63 ML/MIN (>89); MAGNESIUM 2.1 MG/DL (1.5-2.5); POTASSIUM 3.8 MEQ/L (3.5-5.1); SODIUM (NA) 146 MEQ/L (136-145)
[2016-12-02 02:36] LABS: ALKALINE PHOSPHATASE 77 U/L (45-117); TOTAL BILIRUBIN ADULT 0.4 MG/DL (0.2-1.0)
[2016-12-02] MEDS: RESP: ALBUTEROL 2.5 MG/IPRATROPIUM 0.5 MG NEB (SCH) NEB ×5 (03:40→20:17)
[2016-12-02] MEDS: INSULIN ASPART SUPPLEMENTAL SCALE SQ SCH ×4 (05:00→23:00)
[2016-12-02] MEDS: METOCLOPRAMIDE HCL 10 MG/2 ML VIAL IV SCH ×3 (05:51→22:13)
[2016-12-02] MEDS: ARTIFICIAL TEARS OPTH SOLN 15 ML BTL EACH EYE SCH ×3 (05:51→22:13)
[2016-12-02] MEDS: LORazepam 1 MG TAB PO SCH ×3 (05:51→22:12)
[2016-12-02] MEDS: FREE WATER G-TUBE SCH ×3 (05:51→22:00)
--- NOTE | 2016-12-02 06:08 | RADRPT ---
EXAM DATE/TIME: 12/02/2016 05:10 [facility] COMPARISON: CHEST SINGLE AP, December 01, 2016, 4:22. INDICATIONS : Shortness of breath. MEDICAL HISTORY : Sepsis. Cavitary mass SURGICAL HISTORY : thoracentesis. ENCOUNTER: Subsequent ACUITY: 3 weeks PAIN SCORE: 0/10 LOCATION: Bilateral chest FINDINGS: The tracheostomy tube and right-sided chest tube remain in place. There continues to be stable bilate ral pulmonary infiltrates supple functions. The heart size is stable. There continues to be a small l oculated pneumothorax at the right costophrenic angle with 1 cm separation. This is mildly improved c ompared to the prior study. Otherwise, no other new or significant changes are demonstrated. CONCLUSION: 1. No significant change in the bilateral scattered pulmonary infiltrates. 2. Small loculated pneumothorax in the right costophrenic angle with 1 cm separation. Kulwinder Hernandez MD on December 02, 2016 at 6:05 Board Certified Radiologist. This report was verified electronically.
[2016-12-02] MEDS: THIAMINE INJ 100 MG in SODIUM CHLORIDE 0.9% INJ 100 ML IV SCH (08:52)
[2016-12-02] MEDS: CHLORHEXIDINE 0.12% (ORAL KIT) 15 ML CUP MT SCH ×2 (08:53→21:06)
[2016-12-02] MEDS: PANTOPRAZOLE SODIUM 40 MG VIAL IV SCH ×2 (08:54→21:06)
[2016-12-02] MEDS: FOLIC ACID 1 MG TAB PO SCH (08:54)
[2016-12-02] MEDS: MULTIVITAMIN TAB PO SCH (08:54)
[2016-12-02] MEDS: POLYETHYLENE GLYCOL 17 GM PKG PO SCH ×2 (08:54→21:06)
[2016-12-02] MEDS: LACTULOSE SYRUP 20 GM/30 ML CUP PO SCH (08:54)
[2016-12-02] MEDS: HYDROCORTISONE SOD SUCCINATE 100 MG VIAL IV PUSH SCH ×2 (08:55→21:07)
[2016-12-02] MEDS: HEPARIN SODIUM - SQ 10,000 UNITS/ML VIAL SQ SCH ×2 (08:55→21:12)
[2016-12-02] MEDS: SODIUM CHLORIDE 0.9% FLUSH 10 ML FLUSH IVF SCH (08:59)
[2016-12-02] MEDS: SODIUM CHLORIDE 0.9% FLUSH 10 ML FLUSH IV FLUSH SCH ×2 (08:59→21:06)
[2016-12-02] MEDS ORDERED: VANCOMYCIN INJ 1,250 MG in SODIUM CHLOR 0.9% 250 ML INJ 250 ML IV ONE (11:00)
--- NOTE | 2016-12-02 12:24 | HHI.CCPN ---
Subjective Remarks/Hospital Course 56-year-old male is brought to the emergency department by EMS for evaluation of generalized weakness, confusion for about 2 weeks, and also increasing shortness of breath. His oxygen saturation was 88% on room air. EMS administered breathing treatments and Solu-Medrol 125 mg 1 and placed him on nasal cannula. Patient states that he had been sick for almost 10 days, but he is a poor historian. He had a productive cough, but reports no hematemesis or weight loss. He states that it was his neighbor who made him called EMS. He has no past medical history and last time had seen a doctor was about 15 years ago. He denies any fevers but reports some night sweats and chills. He was tachycardic with a heart rate of 115 bpm, had severe leukocytosis with a white count of 35,000 with 91% neutrophils. CMP shows hyponatremia with a sodium of 126. Lactic acid is 2.4. His Chest x-ray shows large 7.7 x 7.8 cm cavitary right midlung lesion with associated right-sided pleural effusion. Subcentimeter left mid lung pulmonary nodules. Patient received 1 L normal saline bolus and Zosyn 4.5 g and Zithromax 500 mg IV and was placed on TB/ respiratory isolation. He has been being in [facility] 2 years ago increasing his risk of tuberculosis. CT pulmonary angiogram negative for PE but showed multiple cavitary lesions within both lungs with the largest measuring 9.5 cm in the right upper lobe. Moderate size right pleural effusion. I evaluated the patient in the emergency department. Patient appears critically ill in moderate distress mildly tachypneic, sweating. I performed a bedside ultrasound which showed a right effusion which is large. The thoracentesis was performed and 1 L of cloudy dark pleural fluid was removed. Patient will be continued on Zosyn and Levaquin and vancomycin. ID consulted and I discussed with Dr. Steele-she recommended no empiric treatments for TB. 11/14/16: Patient seen and examined complaints of severe epigastric and periumbilical abdominal pain. Patient remains oriented to person. His white count is slightly improved from 35,000-28,9000. Na improved to 136. I have ordered a STAT CT abd/pelvis with IV contrast. Chest x-ray shows reaccumulation of right pleural effusion-fluid chemistries are pending but cell count indicates at least a parapneumonic effusion and patient will need a pigtail chest tube 11/15: Patient pulled his right-sided pigtail catheter out overnight last night. Currently nasal cannula in no acute distress. Afebrile. Continues to have a leukocytosis. 11/16: Currently on room air. Hold out his IVs reportedly overnight last night. Requesting diet. Awake and alert and following commands. 11/17: Intubated yesterday due to acute hypercapnic respiratory failure. Hypoxic post intubation requiring right chest tube placement, bronchoscopy and Flolan. Bronchoscopy revealed thick mucous plugging at bilateral right and left mainstem which were clear. Improved oxygenation over the past 12 hours. Afebrile. 11/18 Patient remains sedated with Diprivan, Fentanyl and intubated. On Vasopressin and Neosyn 120 mics. 11/19 Patient is sedated with Diprivan, Fentanyl and intubated. Afebrile. Off all pressors. Afebrile. WBC is trending down 30 today from 50. 11/20: Remains severely septic and encephalopathic even though weaned off all pressors. White count still elevated but trending down. Became extremely tachycardic and tachypneic on lowering sedation. We'll check MRI of the brain to rule out embolic infarct. Family at the bedside updated 11/21 Remains heavily sedated, remains encephalopathic. MRI brain is pending. Family is at bedside. Remains critically with resp failure severe from endocarditis, now unable to wean off the ventilator due to severe metabolic encephalopathy 11/22 No events overnight. Sedated with Diprivan, fentanyl and intubated. Afebrile. MRI brain yesterday showed ischemic changes likely related to septic emboli. 11/23: Patient remains encephalopathic, severe hyponatremia possible contributing , Na is 157 today. Currently on Precedex and fentanyl. CXR shows increasing L effusion 11/24: Patient more awake today. Follows Commands but did not tolerate spontaneous breathing trials. Had left pigtail chest tube placed yesterday 1.6 L transudative fluid removal since placement 11/25 Patient is sedated with Diprivan, Fentanyl and intubated. T:99.9 11/26 No events overnight. Sedated and intubated. Patient was on CPAP x 3 hrs yesterday then became tachypneic. 11/27: Resting in bed comfortably on Diprivan at 40 mics grams per kilogram per minute and fentanyl drip at 200 an hour. Tolerated PSV trial 2 hours yesterday before becoming tachypnea. Positive BM via fecal containment device 1100 cc. Yesterday according to RN was following commands. 11/28: Currently afebrile. Tolerating PSV trials 1.5 hours today for became tachypneic. Awake and alert and follows commands. Neurologically intact. Positive BM. 11/29: Tmax 99.6. Status post percutaneous tracheostomy secondary to failed extubation trials. Plan for PEG tube today. Awake and interactive the ventilator on sedation vacation. Subjective 11/30: DrAzael currently 98.8. Status post percutaneous tracheostomy Dr. Baker yesterday and PEG tube placement by Dr. Figueroa. Tube feeds will be resumed today. Otherwise appears comfortable ventilator. Arousable and follows commands on sedation vacation. 12/01: Patient becomes tachypneic on attempted CPAP, even with high pressure support. I will add by mouth Ativan to reduce IV sedation requirement. Decreasing chest tube output 12/02: Patient failed spontaneous breathing trial clinically today secondary to severe tachypnea and tachycardia. His spiking fever upto 103. Panculture blood , dose of vancomycin given. Most likely patient is getting new sepsis Objective Vital Signs Date Time Temp Pulse Resp B/P Pulse Ox O2 Delivery O2 Flow Rate FiO2 12/02/16 11:40 98 35 12/02/16 10:25 98.7 12/02/16 10:00 108 12/02/16 08:00 30 141/63 Intake and Output 12/01/16 12/01/16 12/02/16 08:00 16:00 00:00 Intake Total 723 ml 891 ml 1698 ml Output Total 645 ml 980 ml 730 ml Balance 78 ml -89 ml 968 ml Result Diagram: 12/02/16 0205 12/02/16 0205 Imaging Last 72 hours Impressions Chest X-Ray 11/29/16 0000 Signed Impressions: Service Date/Time: Friday, November 29, 2016 14:01 - CONCLUSION: 1. Improving aeration of the pulmonary parenchyma. 2. No pneumothorax. Mike Padilla MD Objective Remarks GENERAL: 56-year-old male, critically ill currently on ventilator via tracheostomy, now febrile SKIN: Warm and dry. Scattered skin lesions erythematous predominantly left lower extremity HEAD: Normocephalic and atraumatic. EYES: No injection, drainage. Pupils equally round and reactive around 3 mm bilaterally and reactive to 2 mm. ENT: No nasal drainage noted. Oropharynx is clear. Orotracheally intubated NECK: Supple. No JVD or thyromegaly or lymphadenopathy. Tracheostomy is clean dry and intact CARDIOVASCULAR: Tachycardic, RR. S1, S2. No S4. No murmur not appreciated. RESPIRATORY: Diminished breath sounds bilaterally. Mild expiratory wheezing and few crackles. Bilateral chest tubes to waterseal GASTROINTESTINAL: Abdomen is soft, mildly distended no rebound or guarding on examination. Hypoactive bowel sounds are appreciated. PEG tube site is clean dry and intact MUSCULOSKELETAL: 1+ pitting edema bilateral lower extremities. Multiple erythematous raised lesions on bilateral lower extremity predominantly left lower leg NEUROLOGICAL: Currently heavily sedated for ventilator synchronyand extremities spontaneously (Was following commands previously) Date of Insertion: Nov 16, 2016 Date of Removal: Nov 21, 2016 Line: Central Venous Catheter Side: Left Location: Internal, Jugular A/P Assessment and Plan NEURO/PSYCH: Metabolic encephalopathy Septic brain emboli On Diprivan and Fentanyl for sedation/analgesia while on ventilator. Goal of RASS -1. Added Ativan 1 mg PO [id number] to reduce IV sedation on 12/01 Attempt Precedex again for vent weaning Daily sedation vacation. EEG 11/24: Generalized encephalopathy without any significant epileptic activity. MRI brain 11/21: Ischemic changes throughout white matter likely related to septic emboli. Neuro consulted Dr. Hernandez and has followed intermittently CT head 11/17 revealed no acute intracranial findings currently no signs of gross embolic events. On Thiamine/MVI/Folic acid RESP: Bilateral cavitary lung lesions/most likely cavitating pneumonia from staph aureus Acute respiratory failure Large right loculated pleural effusion/empyema Left pleural effusion Loculated right basilar pneumothorax PRVC 16/600/1.40. Continues to fail spontaneous breathing trials Continue with vent support keep sat >92%. Duo nebs every 4 hours with albuterol nebs every 2 hours. Vent bundle. Status post tracheostomy by Dr. Baker 11/29 Right-sided chest tube #28 Tongan- placed back on suction due to loculated pneumothorax on the right base Left-sided chest tube #10 Tongan- placed 11/24/16-drained 60ml in 24 hrs on waterseal now, remove today - Right thoracentesis with 1 L cloudy yellow fluid removed, fluid cell studies WBC 2,600, - Patient status post pigtail catheter placement 11/14, 445 cc prior pulled out 11/15. Evaluated by Dr. Samuels/CT surgery. Per his recommendations, No indication for decortication at this time CV: Aortic valve endocarditis/large vegetation Sinus tachycardia Atrial fibrillation with RVR early normal sinus rhythm Elevated troponin - likely rate dependent - Monitor HR and BP keep MAP>65mmHg - Stress dose steroids-Hydrocortisone 50mg IV Q12 - 2-D echocardiogram revealed EF 55-60%. Moderate AR. CHANDNI revealed 17 mm x 17 millimeter mobile mass on aortic valve. limited echo 11/22 Persistent vegetation - CT surgery. Recommendations no intervention at this time GI: Hypoalbuminemia Moderate protein calorie malnutrition/acute Continue tube feeds with Glucerna 1.5@ 55 cc an hour. IV Protonix for GI prophylaxis. MiraLAX twice a day for bowel regimen Reglan for bowel motility - CT of the abdomen pelvis with IV contrast revealed possible ileus., Gastric contraction at gastric duodenal junction. 2 mm renal cyst. - KUB 11/15 revealed improving mild ileus. GI is following s/p PEG placement 11/29/16 : Santana catheter has been placed for accurate I's and O's in a critically ill patient ID: Severe sepsis New fever up to 103 12/02/16 Multilobar cavitating pneumonia secondary staph aureus Staph aureus empyema Aortic valve endocarditis - Continue with abx per ID ( IV Ancef) monitor for signs of infections ( Fever, WBC) - Give single dose of vancomycin - Repeat blood urine and sputum culture today 12/02/16 - Gentamicin discontinued 11/26 due to elevated creatinine currently 1.8 Pertinent cultures 11/13 - blood cultures 2 - staph aureus 11/13 and 11/14- pleural fluid- staph aureus 11/14- sputum- staph aureus 11/15 - blood cultures 2 -staph aureus 11/16 - Bronch samples: Staph Aureus 11/16 Sputum: Staph Aureus 11/19 - blood cultures 2 - no growth 11/23 - pleural fluid - no growth 11/24 - blood cultures 2 - no growth 11/25 - UA - negative 11/25 - sputum no growth HEME: Normocytic anemia - Monitor CBC, CMP, coags ENDO: SSI with accuchecks for glycemic control TSH 0.6. FEN: Hyper-magnesium Free water flushes at 250 cc every 8 hours. RENAL: Acute kidney injury Creatinine currently normal Check urine eosinophil/electrolytes Monitor urine output Accurate I's and O's Avoid nephrotoxic drugs PROPH: - Bilateral lower extremity SCDs. Heparin SQ, IV Protonix for prophylaxis LINES: - Left IJ CVL placed 11/16 discontinued unknown time. Currently with peripheral IVs Palliative care is following Critical Care: The total critical care time was 35 minutes. Time to perform other separately billable procedures was not included in the critical care time. Jan Velez MD Dec 02, 2016 12:24
--- NOTE | 2016-12-02 13:01 | HHI.IDPN ---
Note Infectious Disease Note On the vent. Temp spike to 103. Post trach 11/29. Sedated. D/W RN. Large vegetation on AV and moderate aortic regurg on CHANDNI. Culture of blood 11/13, 11/15, 11/16. - Staph aureus. 11/19 no growth. Culture of pleural fluid 11/14 - staph aureus. Presented to the emergency department with a 2-week history of weakness. He was noted to have low oxygen saturation. He reported that he had productive cough over the past couple of weeks and was experiencing shortness of breath. ALLERGIES NO KNOWN DRUG ALLERGIES. ANTIBIOTICS: Ancef. Vanco dose. OBJECTIVE: Vital Signs Date Time Temp Pulse Resp B/P Pulse Ox O2 Delivery O2 Flow Rate FiO2 12/02/16 11:40 98 35 12/02/16 10:25 98.7 12/02/16 10:00 108 12/02/16 08:24 97 35 12/02/16 08:00 113 12/02/16 08:00 35 12/02/16 08:00 103.0 113 30 141/63 98 12/02/16 06:00 109 12/02/16 04:00 99.8 107 26 129/60 97 12/02/16 04:00 35 12/02/16 04:00 107 12/02/16 03:40 97 35 12/02/16 02:00 103 12/02/16 01:03 97 35 12/02/16 00:00 99.8 105 23 138/63 97 12/02/16 00:00 105 12/02/16 00:00 35 12/01/16 22:18 99 35 12/01/16 22:00 103 12/01/16 20:00 99.7 101 24 136/62 100 12/01/16 20:00 35 12/01/16 20:00 101 12/01/16 19:23 100 35 12/01/16 18:00 106 12/01/16 16:00 100.4 101 23 125/58 99 12/01/16 16:00 35 12/01/16 16:00 101 12/01/16 15:48 99 35 12/01/16 14:00 100 12/01/16 13:00 35 12/01/16 12/01/16 12/02/16 14:59 22:59 06:59 Intake Total 891 ml 1698 ml 976 ml Output Total 980 ml 730 ml 650 ml Balance -89 ml 968 ml 326 ml IV Total 473 ml 1200 ml 376 ml Tube Feeding 168 ml 248 ml 350 ml Other 250 ml 250 ml 250 ml Output Urine Total 550 ml 500 ml 450 ml Stool Total 400 ml 200 ml 200 ml Chest Tube Drainage Total 30 ml 30 ml 0 ml Laboratory Tests Test 12/01/16 12/02/16 04:31 02:05 White Blood Count 6.0 TH/MM3 7.4 TH/MM3 Red Blood Count 2.50 MIL/MM3 2.44 MIL/MM3 Hemoglobin 7.7 GM/DL 7.5 GM/DL Hematocrit 23.5 % 23.2 % Mean Corpuscular Volume 94.0 FL 95.1 FL Mean Corpuscular Hemoglobin 30.8 PG 30.7 PG Mean Corpuscular Hemoglobin 32.7 % 32.3 % Concent Red Cell Distribution Width 16.2 % 15.8 % Platelet Count 311 TH/MM3 276 TH/MM3 Mean Platelet Volume 7.3 FL 7.1 FL Neutrophils (%) (Auto) 78.5 % 81.9 % Lymphocytes (%) (Auto) 10.5 % 8.3 % Monocytes (%) (Auto) 10.3 % 9.2 % Eosinophils (%) (Auto) 0.5 % 0.3 % Basophils (%) (Auto) 0.2 % 0.3 % Neutrophils # (Auto) 4.7 TH/MM3 6.1 TH/MM3 Lymphocytes # (Auto) 0.6 TH/MM3 0.6 TH/MM3 Monocytes # (Auto) 0.6 TH/MM3 0.7 TH/MM3 Eosinophils # (Auto) 0.0 TH/MM3 0.0 TH/MM3 Basophils # (Auto) 0.0 TH/MM3 0.0 TH/MM3 CBC Comment DIFF FINAL DIFF FINAL Differential Comment Laboratory Tests Test 12/01/16 12/01/16 12/02/16 04:31 15:35 02:05 Sodium Level 145 MEQ/L 146 MEQ/L Potassium Level 3.1 MEQ/L 3.8 MEQ/L Chloride Level 110 MEQ/L 112 MEQ/L Carbon Dioxide Level 27.0 MEQ/L 26.8 MEQ/L Anion Gap 8 MEQ/L 7 MEQ/L Blood Urea Nitrogen 46 MG/DL 41 MG/DL Creatinine 1.39 MG/DL 1.20 MG/DL Estimat Glomerular Filtration 53 ML/MIN 63 ML/MIN Rate Random Glucose 101 MG/DL 112 MG/DL Calcium Level 8.3 MG/DL 8.1 MG/DL Phosphorus Level 4.0 MG/DL 4.5 MG/DL Magnesium Level 2.2 MG/DL 2.1 MG/DL Total Bilirubin 0.5 MG/DL 0.4 MG/DL Aspartate Amino Transf 15 U/L 10 U/L (AST/SGOT) Alanine Aminotransferase LESS THAN 6 U/L LESS THAN 6 U/L (ALT/SGPT) Alkaline Phosphatase 81 U/L 77 U/L Total Protein 6.2 GM/DL 6.3 GM/DL Albumin 1.4 GM/DL 1.4 GM/DL IMAGING: Chest X-Ray 12/02/16599 Signed Impressions: Service Date/Time: Friday, December 02, 2016 05:10 - CONCLUSION: 1. No significant change in the bilateral scattered pulmonary infiltrates. 2. Small loculated pneumothorax in the right costophrenic angle with 1 cm separation. Kulwinder Hernandez MD Chest X-Ray 12/01/16599 Signed Impressions: Service Date/Time: Thursday, December 01, 2016 04:22 - CONCLUSION: No significant change has occurred. Deven Urrutia MD Brain MRI 11/21/16 0000 Signed Impressions: Service Date/Time: November 12:33 - CONCLUSION: Multifocal areas of restricted diffusion primarily in the periventricular and subcortical white matter bilaterally but also cortically based in the right frontal lobe. Findings likely represent ischemic change likely related to septic emboli given the patient's clinical history. No abscess or enhancing lesion is visualized. Agustin Bonner MD Head CT 11/17/16599 Signed Impressions: Service Date/Time: Thursday, November 17, 2016 10:39 - CONCLUSION: No significant change has occurred. Deven Urrutia MD Chest X-Ray 11/17/16599 Signed Impressions: Service Date/Time: Thursday, November 17, 2016 03:36 - CONCLUSION: Diffuse airspace disease a large cavity in the right midlung zone is unchanged. Tubes and catheter are in good position. Sawyer Robertson MD Chest CT 11/16/16 0000 Signed Impressions: Service Date/Time: Wednesday, November 16, 2016 20:36 - CONCLUSION: 1. New right chest tube in the posterior superior right pleural space. There continues to be a moderate right pleural effusion primarily seen at the base. Some degree of loculation may be present inferiorly. The effusion does not layer posteriorly. There are scattered punctate areas of air within the pleural space inferiorly on the right. There is a solitary small area of air within the mild left pleural effusion. 2. Numerous irregular masses seen throughout both lungs some which are cavitary. These are nonspecific. Inflammatory masses needs be suspected. The multiplicity raises possibility of septic emboli. Agustin Price MD Abdomen X-Ray 11/15/16 0600 Signed Impressions: Service Date/Time: Tuesday, November 15, 2016 03:07 - CONCLUSION: Probable mild ileus involving loops of bowel on the left side. Reba Banerjee MD Abdomen/Pelvis CT 11/14/16 0000 Signed Impressions: Service Date/Time: October 09:55 - CONCLUSION: 1. Multiple loops of fluid-filled small bowel which are larger in caliber in comparison to yesterday's examination although not enlarged by size criteria. This may reflect mild enteritis versus developing mild adynamic ileus. 2. Persistent luminal narrowing at the gastroduodenal junction without definite focal mass. This is of uncertain clinical significance and likely reflects gastric contraction. Gastric mass/metastatic disease is not very likely based on appearance although it cannot be excluded. 3. 2 cm ill-defined hypodense lesion in the left renal mid pole with indeterminate density. Differential considerations include complex cyst versus metastatic disease in this patient with apparent diffuse metastatic disease in the chest. 4. Redemonstration of multiple bilateral cavitary masses at the lung bases with loculated right pleural effusion. Elder Long MD CT Angiography 11/13/16 1328 Signed Impressions: Service Date/Time: Sunday, November 13, 2016 15:50 - CONCLUSION: 1. Multiple cavitary lesions within both lungs with the largest measuring 9.5 cm in the right upper lobe. Differential diagnosis includes infectious and neoplastic etiologies. 2. Moderate sized right pleural effusion with adjacent compressive atelectasis and/or infiltrate. 3. Cardiomegaly and coronary artery calcifications. 4. Subcarinal mediastinal lymphadenopathy. 5. Degenerative changes throughout the thoracic spine. Jed Ponce MD PHYSICAL EXAMINATION GENERAL: On the vent. Sedated. HEENT: No icterus. Oropharynx moist mucosa without lesions. NECK: Supple without adenopathy. LUNGS: Bilateral rhonchi. HEART: Normal S1-S2 without audible murmurs, rubs or gallops. ABDOMEN: Bowel sounds present, soft. Distended. EXTREMITIES: No clubbing or cyanosis or edema. SKIN: Punctate erythematous lesions at the lower extremities including the left tibia, left foot and right foot which blanches with palpation. faded. No diffuse rash. NEURO: Sedated. Calm. PSYCH: unable to assess. IMPRESSION 1. Sepsis. Endocarditis Aortic valve Staph aureus (MSSA). 2. Cavitary pulmonary lesions. Embolic./ [employer] ischemic lesions suggesting embolic lesions. 3. Pneumonia/parapneumonic effusion- MSSA. 4. Skin lesions which potentially could be embolic. 5. Leukocytosis secondary to infection. WBC improved. Now normal. 6. Fever secondary to infection. Improved. 7. Vent dependent respiratory failure. 8. New Fever. RECOMMENDATIONS 1. Continue IV Ancef. 2. Follow new cultures. 3. Monitor temperature. Slava Garcia MD Dec 02, 2016 13:01
[2016-12-02] MEDS: fentaNYL DRIP 250 ML IV SCH (13:14)
--- NOTE | 2016-12-02 19:52 | HHI.PR ---
Subjective Remarks Patient was intubated last night for acute hypoxemic resp failure and a right chest tube was placed for right hydroPTX in addition patient underwent bronch with BAL ( mucous plugs b/l suctioned to clear). MRI brain multifocal area of septic emboli/infarct Sedated with diprivan and Fentanyl Had Trach and PEG Tolerates TF Did't tolerate CPAP Objective Vital Signs Vital Signs Date Time Temp Pulse Resp B/P Pulse Ox O2 Delivery O2 Flow Rate FiO2 12/02/16 18:00 105 12/02/16 16:00 35 12/02/16 16:00 109 12/02/16 16:00 103.0 109 26 131/61 94 12/02/16 15:27 96 35 12/02/16 14:00 110 12/02/16 12:00 35 12/02/16 12:00 108 12/02/16 12:00 98.8 108 29 131/60 97 12/02/16 11:40 98 35 12/02/16 10:25 98.7 12/02/16 10:00 108 12/02/16 08:24 97 35 12/02/16 08:00 113 12/02/16 08:00 35 12/02/16 08:00 103.0 113 30 141/63 98 12/02/16 06:00 109 12/02/16 04:00 99.8 107 26 129/60 97 12/02/16 04:00 35 12/02/16 04:00 107 12/02/16 03:40 97 35 12/02/16 02:00 103 12/02/16 01:03 97 35 12/02/16 00:00 99.8 105 23 138/63 97 12/02/16 00:00 105 12/02/16 00:00 35 12/01/16 22:18 99 35 12/01/16 22:00 103 12/01/16 20:00 99.7 101 24 136/62 100 12/01/16 20:00 35 12/01/16 20:00 101 I/O 12/01/16 12/01/16 12/01/16 12/02/16 12/02/16 12/02/16 07:00 15:00 23:00 07:00 15:00 23:00 Intake Total 723 ml 891 ml 1698 ml 976 ml 1407 ml Output Total 645 ml 980 ml 730 ml 650 ml 1180 ml Balance 78 ml -89 ml 968 ml 326 ml 227 ml IV Total 358 ml 473 ml 1200 ml 376 ml 706 ml Tube Feeding 115 ml 168 ml 248 ml 350 ml 451 ml Other 250 ml 250 ml 250 ml 250 ml 250 ml Output Urine Total 575 ml 550 ml 500 ml 450 ml 550 ml Stool Total 50 ml 400 ml 200 ml 200 ml 600 ml Chest Tube Drainage Total 20 ml 30 ml 30 ml 0 ml 30 ml Result Diagram: 12/02/1620412/02/16204 Objective Remarks GENERAL: Patient is 56 yo critically ill intubated , sedated and on pressors. SKIN: Warm and dry. HEAD: Normocephalic. EYES: No scleral icterus. No injection or drainage. NECK: Supple, trachea midline. No JVD or lymphadenopathy. CARDIOVASCULAR: Regular rate and rhythm without murmurs, gallops, or rubs. RESPIRATORY: Breath sounds equal bilaterally. No accessory muscle use. GASTROINTESTINAL: Abdomen soft, non-tender, nondistended. MUSCULOSKELETAL: No cyanosis, or edema. Neuro: Sedated and intubated A/P Assessment and Plan 1VDRF 2)Septic shock 3)Staph Aureus bacteremia 4)Empyema 6)Endocarditis involving AV 7)Leucocytosis 8)Cavitary pulm masses 2nd staph Aureus 9)Right hydroPTX PLAN: Continue with vent support keep sat >92% Bronchodilators, ICU vent bundle, on stress dose steroids- HC 100mg IV Q8 On PRVC/AC , 35% Abx per ID CTS is following- no intervention at this time. Chest tube to suction Sedation with Diprivan and fentanyl Emmett Bolton MD Dec 02, 2016 19:52
[2016-12-03] VITALS (62 sets, daily range): BP systolic 111–142; BP diastolic 53–75; PULSE 99–118; RESP 0–30; TEMP 98.8–102.9; O2SAT 92–100
[2016-12-03] MEDS: RESP: ALBUTEROL 2.5 MG/IPRATROPIUM 0.5 MG NEB (SCH) NEB ×7 (00:18→23:54)
[2016-12-03] MEDS: ceFAZolin 2 GM PREMIX 50 ML IV SCH ×3 (01:26→16:26)
[2016-12-03] MEDS: fentaNYL DRIP 250 ML IV SCH ×2 (01:27→12:52)
[2016-12-03] MEDS: PROPOFOL 1000 MG/100 ML INJ 100 ML IV SCH ×3 (03:51→10:28)
[2016-12-03] MEDS: CHLORHEXIDINE GLUCONATE 2 % 1 PACK (2 CLOTHS) TOP SCH (05:00)
[2016-12-03] MEDS: INSULIN ASPART SUPPLEMENTAL SCALE SQ SCH ×4 (05:00→23:00)
[2016-12-03 05:41] LABS: AUTOMATED NEUTROPHIL # 8.1 TH/MM3 (1.8-7.7); BASOPHIL % 0.1 % (0.0-2.0); EOSINOPHIL % 0.2 % (0.0-4.0); HEMATOCRIT 22.5 % (39.0-51.0); HEMO FLAGS DIFF FINAL; LYMPH % 10.3 % (9.0-44.0); MEAN CELL VOLUME 95.3 FL (80.0-100.0); MEAN CORPUSCULAR HEMOGLOBIN 31.5 PG (27.0-34.0); NEUT % 83.4 % (16.0-70.0); PLATELET COUNT 254 TH/MM3 (150-450); RED BLOOD COUNT 2.36 MIL/MM3 (4.50-5.90); RED CELL DISTRIBUTION WIDTH 15.7 % (11.6-17.2); WHITE BLOOD COUNT 9.7 TH/MM3 (4.0-11.0)
[2016-12-03] MEDS: FREE WATER G-TUBE SCH ×3 (06:00→21:48)
[2016-12-03] MEDS: ARTIFICIAL TEARS OPTH SOLN 15 ML BTL EACH EYE SCH ×3 (06:06→21:48)
[2016-12-03] MEDS: METOCLOPRAMIDE HCL 10 MG/2 ML VIAL IV SCH ×3 (06:06→21:46)
[2016-12-03] MEDS: LORazepam 1 MG TAB PO SCH (06:06)
[2016-12-03 06:09] LABS: ANION GAP 9 MEQ/L (5-15); BICARBONATE 26.9 MEQ/L (21.0-32.0); BLOOD UREA NITROGEN 43 MG/DL (7-18); CHLORIDE 111 MEQ/L (98-107); GLOMERULAR FILTRATION RATE 63 ML/MIN (>89); MAGNESIUM 2.1 MG/DL (1.5-2.5); POTASSIUM 3.6 MEQ/L (3.5-5.1); SODIUM (NA) 147 MEQ/L (136-145)
[2016-12-03 06:21] LABS: ALKALINE PHOSPHATASE 66 U/L (45-117); ALT (GPT) 6 U/L (12-78); AST (GOT) 10 U/L (15-37); TOTAL BILIRUBIN ADULT 0.4 MG/DL (0.2-1.0)
--- NOTE | 2016-12-03 06:37 | RADRPT ---
EXAM DATE/TIME: 12/03/2016 05:18 [facility] COMPARISON: CHEST SINGLE AP, December 02, 2016, 5:10. INDICATIONS : Respiratory disease. MEDICAL HISTORY : Sepsis. Cavitary mass SURGICAL HISTORY : None. ENCOUNTER: Subsequent ACUITY: 3 weeks PAIN SCORE: Non-responsive. LOCATION: Bilateral chest FINDINGS: The tracheostomy tube remains in place. The right-sided chest tube remains in place. No pneumothorax. No change in the scattered bilateral pulmonary infiltrates. The heart size is stable. CONCLUSION: No significant interval change. Kulwinder Hernandez MD on December 03, 2016 at 6:36 Board Certified Radiologist. This report was verified electronically.
[2016-12-03] MEDS: CHLORHEXIDINE 0.12% (ORAL KIT) 15 ML CUP MT SCH ×2 (08:29→20:02)
[2016-12-03] MEDS: ACETAMINOPHEN 325 MG TAB PO PRN ×2 (08:29→20:02)
[2016-12-03] MEDS: POLYETHYLENE GLYCOL 17 GM PKG PO SCH ×2 (08:30→21:07)
[2016-12-03] MEDS: LACTULOSE SYRUP 20 GM/30 ML CUP PO SCH (08:30)
[2016-12-03] MEDS: SODIUM CHLORIDE 0.9% FLUSH 10 ML FLUSH IVF SCH (08:30)
[2016-12-03] MEDS: SODIUM CHLORIDE 0.9% FLUSH 10 ML FLUSH IV FLUSH SCH ×2 (08:30→21:09)
[2016-12-03] MEDS: FOLIC ACID 1 MG TAB PO SCH (08:30)
[2016-12-03] MEDS: MULTIVITAMIN TAB PO SCH (08:30)
[2016-12-03] MEDS: THIAMINE INJ 100 MG in SODIUM CHLORIDE 0.9% INJ 100 ML IV SCH (08:30)
[2016-12-03] MEDS: HEPARIN SODIUM - SQ 10,000 UNITS/ML VIAL SQ SCH ×2 (08:30→21:08)
[2016-12-03] MEDS: PANTOPRAZOLE SODIUM 40 MG VIAL IV SCH ×2 (08:30→21:08)
[2016-12-03] MEDS: HYDROCORTISONE SOD SUCCINATE 100 MG VIAL IV PUSH SCH ×2 (08:31→21:08)
--- NOTE | 2016-12-03 11:55 | HHI.CCPN ---
Subjective Remarks/Hospital Course 56-year-old male is brought to the emergency department by EMS for evaluation of generalized weakness, confusion for about 2 weeks, and also increasing shortness of breath. His oxygen saturation was 88% on room air. EMS administered breathing treatments and Solu-Medrol 125 mg 1 and placed him on nasal cannula. Patient states that he had been sick for almost 10 days, but he is a poor historian. He had a productive cough, but reports no hematemesis or weight loss. He states that it was his neighbor who made him called EMS. He has no past medical history and last time had seen a doctor was about 15 years ago. He denies any fevers but reports some night sweats and chills. He was tachycardic with a heart rate of 115 bpm, had severe leukocytosis with a white count of 35,000 with 91% neutrophils. CMP shows hyponatremia with a sodium of 126. Lactic acid is 2.4. His Chest x-ray shows large 7.7 x 7.8 cm cavitary right midlung lesion with associated right-sided pleural effusion. Subcentimeter left mid lung pulmonary nodules. Patient received 1 L normal saline bolus and Zosyn 4.5 g and Zithromax 500 mg IV and was placed on TB/ respiratory isolation. He has been being in long term 2 years ago increasing his risk of tuberculosis. CT pulmonary angiogram negative for PE but showed multiple cavitary lesions within both lungs with the largest measuring 9.5 cm in the right upper lobe. Moderate size right pleural effusion. I evaluated the patient in the emergency department. Patient appears critically ill in moderate distress mildly tachypneic, sweating. I performed a bedside ultrasound which showed a right effusion which is large. The thoracentesis was performed and 1 L of cloudy dark pleural fluid was removed. Patient will be continued on Zosyn and Levaquin and vancomycin. ID consulted and I discussed with Dr. Steele-she recommended no empiric treatments for TB. 11/14/16: Patient seen and examined complaints of severe epigastric and periumbilical abdominal pain. Patient remains oriented to person. His white count is slightly improved from 35,000-28,9000. Na improved to 136. I have ordered a STAT CT abd/pelvis with IV contrast. Chest x-ray shows reaccumulation of right pleural effusion-fluid chemistries are pending but cell count indicates at least a parapneumonic effusion and patient will need a pigtail chest tube 11/15: Patient pulled his right-sided pigtail catheter out overnight last night. Currently nasal cannula in no acute distress. Afebrile. Continues to have a leukocytosis. 11/16: Currently on room air. Hold out his IVs reportedly overnight last night. Requesting diet. Awake and alert and following commands. 11/17: Intubated yesterday due to acute hypercapnic respiratory failure. Hypoxic post intubation requiring right chest tube placement, bronchoscopy and Flolan. Bronchoscopy revealed thick mucous plugging at bilateral right and left mainstem which were clear. Improved oxygenation over the past 12 hours. Afebrile. 11/18 Patient remains sedated with Diprivan, Fentanyl and intubated. On Vasopressin and Neosyn 120 mics. 11/19 Patient is sedated with Diprivan, Fentanyl and intubated. Afebrile. Off all pressors. Afebrile. WBC is trending down 30 today from 50. 11/20: Remains severely septic and encephalopathic even though weaned off all pressors. White count still elevated but trending down. Became extremely tachycardic and tachypneic on lowering sedation. We'll check MRI of the brain to rule out embolic infarct. Family at the bedside updated 11/21 Remains heavily sedated, remains encephalopathic. MRI brain is pending. Family is at bedside. Remains critically with resp failure severe from endocarditis, now unable to wean off the ventilator due to severe metabolic encephalopathy 11/22 No events overnight. Sedated with Diprivan, fentanyl and intubated. Afebrile. MRI brain yesterday showed ischemic changes likely related to septic emboli. 11/23: Patient remains encephalopathic, severe hyponatremia possible contributing , Na is 157 today. Currently on Precedex and fentanyl. CXR shows increasing L effusion 11/24: Patient more awake today. Follows Commands but did not tolerate spontaneous breathing trials. Had left pigtail chest tube placed yesterday 1.6 L transudative fluid removal since placement 11/25 Patient is sedated with Diprivan, Fentanyl and intubated. T:99.9 11/26 No events overnight. Sedated and intubated. Patient was on CPAP x 3 hrs yesterday then became tachypneic. 11/27: Resting in bed comfortably on Diprivan at 40 mics grams per kilogram per minute and fentanyl drip at 200 an hour. Tolerated PSV trial 2 hours yesterday before becoming tachypnea. Positive BM via fecal containment device 1100 cc. Yesterday according to RN was following commands. 11/28: Currently afebrile. Tolerating PSV trials 1.5 hours today for became tachypneic. Awake and alert and follows commands. Neurologically intact. Positive BM. 11/29: Tmax 99.6. Status post percutaneous tracheostomy secondary to failed extubation trials. Plan for PEG tube today. Awake and interactive the ventilator on sedation vacation. Subjective 11/30: currently 98.8. Status post percutaneous tracheostomy Dr. Baker yesterday and PEG tube placement by Dr. Figueroa. Tube feeds will be resumed today. Otherwise appears comfortable ventilator. Arousable and follows commands on sedation vacation. 12/01: Patient becomes tachypneic on attempted CPAP, even with high pressure support. I will add by mouth Ativan to reduce IV sedation requirement. Decreasing chest tube output 12/02: Patient failed spontaneous breathing trial clinically today secondary to severe tachypnea and tachycardia. His spiking fever upto 103. Panculture blood , dose of vancomycin given. Most likely patient is getting new sepsis 12/03: Continued to spike fever up to 102. Dose of vancomycin was given yesterday. Patient tolerated CPAP for 3 hours today, remains encephalopathic though. Objective Vital Signs Date Time Temp Pulse Resp B/P Pulse Ox O2 Delivery O2 Flow Rate FiO2 12/03/16 11:18 97 45 12/03/16 10:00 106 12/03/16 09:41 25 12/03/16 09:00 128/61 12/03/16 08:00 101.9 12/03/16 07:30 Mechanical Ventilator Intake and Output 12/02/16 12/02/16 12/02/16 07:59 15:59 23:59 Intake Total 976 ml 1407 ml 1261 ml Output Total 650 ml 1180 ml 600 ml Balance 326 ml 227 ml 661 ml Result Diagram: 12/03/16 0456 12/03/16 0456 Imaging Last 72 hours Impressions Chest X-Ray 11/29/16 0000 Signed Impressions: Service Date/Time: Tuesday, November 29, 2016 14:01 - CONCLUSION: 1. Improving aeration of the pulmonary parenchyma. 2. No pneumothorax. Mike Padilla MD Objective Remarks GENERAL: 56-year-old male, critically ill currently on ventilator via tracheostomy, now febrile SKIN: Warm and dry. Scattered skin lesions erythematous predominantly left lower extremity HEAD: Normocephalic and atraumatic. EYES: No injection, drainage. Pupils equally round and reactive around 3 mm bilaterally and reactive to 2 mm. ENT: No nasal drainage noted. Oropharynx is clear. Orotracheally intubated NECK: Supple. No JVD or thyromegaly or lymphadenopathy. Tracheostomy is clean dry and intact CARDIOVASCULAR: Tachycardic, RR. S1, S2. No S4. No murmur not appreciated. RESPIRATORY: Diminished breath sounds bilaterally. Mild expiratory wheezing and few crackles. Right chest tube to suction GASTROINTESTINAL: Abdomen is soft, mildly distended no rebound or guarding on examination. Hypoactive bowel sounds are appreciated. PEG tube site is clean dry and intact MUSCULOSKELETAL: 1+ pitting edema bilateral lower extremities. Multiple erythematous raised lesions on bilateral lower extremity predominantly left lower leg NEUROLOGICAL: Currently heavily sedated for ventilator synchrony. Localizes to deep pain Date of Insertion: Nov 16, 2016 Date of Removal: Nov 21, 2016 Line: Central Venous Catheter Side: Left Location: Internal, Jugular A/P Assessment and Plan NEURO/PSYCH: Metabolic encephalopathy Septic brain emboli On Diprivan and Fentanyl for sedation/analgesia while on ventilator. Attempt Precedex again for vent weaning Goal of RASS -1. Ativan 1 mg PO [id number] to reduce IV sedation on 12/01-will reduce to 0.5 q12 Daily sedation vacation. EEG 11/24: Generalized encephalopathy without any significant epileptic activity. MRI brain 11/21: Ischemic changes throughout white matter likely related to septic emboli. Neuro consulted Dr. Hernandez and has followed intermittently CT head 11/17 revealed no acute intracranial findings currently no signs of gross embolic events. On Thiamine/MVI/Folic acid RESP: Bilateral cavitary lung lesions/most likely cavitating pneumonia from staph aureus Acute respiratory failure Large right loculated pleural effusion/empyema Left pleural effusion Loculated right basilar pneumothorax PRVC 16/600/1.1/5/40. Tolerated CPAP 3 hours today 12/03 Continue with vent support keep sat >92%. DuoNebs every 4 hours with albuterol nebs every 2 hours. Vent bundle. Status post tracheostomy by Dr. Baker 11/29 Right-sided chest tube #28 [place]- placed back on suction due to loculated pneumothorax on the right base 12/02 Left-sided chest tube #10 [place]- placed 11/24/16-removed 12/02 - Right thoracentesis with 1 L cloudy yellow fluid removed, fluid cell studies WBC 2,600, - Patient status post pigtail catheter placement 11/14, 445 cc prior pulled out 11/15. Evaluated by Dr. Samuels/CT surgery. Per his recommendations, No indication for decortication at this time CV: Aortic valve endocarditis/large vegetation Sinus tachycardia Atrial fibrillation with RVR early normal sinus rhythm Elevated troponin - likely rate dependent - Monitor HR and BP keep MAP>65mmHg - Stress dose steroids-Hydrocortisone 50mg IV Q12 - 2-D echocardiogram revealed EF 55-60%. Moderate AR. CHANDNI revealed 17 mm x 17 millimeter mobile mass on aortic valve. limited echo 11/22 Persistent vegetation - CT surgery. Recommendations no intervention at this time GI: Hypoalbuminemia Moderate protein calorie malnutrition/acute Continue tube feeds with Glucerna 1.5@ 55 cc an hour. IV Protonix for GI prophylaxis. MiraLAX twice a day for bowel regimen Reglan for bowel motility - CT of the abdomen pelvis with IV contrast revealed possible ileus., Gastric contraction at gastric duodenal junction. 2 mm renal cyst. - KUB 11/15 revealed improving mild ileus. GI is following s/p PEG placement 11/29/16 : Santana catheter has been placed for accurate I's and O's in a critically ill patient ID: Severe sepsis New fever up to 103 12/02/16 Multilobar cavitating pneumonia secondary staph aureus Staph aureus empyema Aortic valve endocarditis - Continue with abx per ID ( IV Ancef) monitor for signs of infections ( Fever, WBC) - Give single dose of vancomycin 12/02. Repeat dose today, await cultures - Repeat blood urine and sputum culture today 12/02/16 - Gentamicin discontinued 11/26 due to elevated creatinine currently 1.8 Pertinent cultures 11/13 - blood cultures 2 - staph aureus 11/13 and 11/14- pleural fluid- staph aureus 11/14- sputum- staph aureus 11/15 - blood cultures 2 -staph aureus 11/16 - Bronch samples: Staph Aureus 11/16 Sputum: Staph Aureus 11/19 - blood cultures 2 - no growth 11/23 - pleural fluid - no growth 11/24 - blood cultures 2 - no growth 11/25 - UA - negative 11/25 - sputum no growth HEME: Normocytic anemia - Monitor CBC, CMP, coags ENDO: SSI with accuchecks for glycemic control TSH 0.6. FEN: Hyper-magnesium Free water flushes at 250 cc every 8 hours. RENAL: Acute kidney injury Creatinine currently normal Monitor urine output Accurate I's and O's Avoid nephrotoxic drugs PROPH: - Bilateral lower extremity SCDs. Heparin SQ, IV Protonix for prophylaxis LINES: - Left IJ CVL placed 11/16 discontinued. Currently with peripheral IVs Palliative care is following Critical Care: Level 3 Jan Velez MD Dec 03, 2016 11:54
[2016-12-03] MEDS: DEXMEDETOMIDINE INJ 200 MCG in SODIUM CHLORIDE 0.9% INJ 50 ML IV SCH ×2 (12:53→15:59)
[2016-12-03] MEDS ORDERED: VANCOMYCIN INJ 1,250 MG in SODIUM CHLOR 0.9% 250 ML INJ 250 ML IV ONE (13:00)
--- NOTE | 2016-12-03 16:29 | HHI.HCPN ---
Reason for visit a. To assist with evaluation and management of symptoms including: dyspnea b. To assist medical decision maker(s) with: better understanding of current medical conditions; weighing benefits/burdens of medical treatment options; making medical treatment decisions. . Subjective/Interval History Pt s/p peg and trach. Pt have been spiking fevers. Pt on my visit open eyes, but not interactive. Family/friend interactions Mom endorse today pt is more active and responded more to her since the trach. Review clinical course, and the upcoming challenges he faces, continue infections, weaning challenges, heart valve. After discussion, mom is amenable to change to intubation only, no shock, compressions or acls drugs. Continue medical treatment, and see if pt could progress. Anticipate sister will come to town this to see him. Further decisions can be review with palliative next week Friday after pt's sister have seen him. Advance Directives Living Will: Never completed Health Care Surrogate: Copy in medical record Durable Power of Confectionery Laboratory Manager: Never completed Advance Directive Specifics Health Care Surrogate(s): The patient lacks capacity for decision-making, and it is uncertain whether he will regain that capacity. Initially, he had named his landlord Kerrie Correa as healthcare surrogate on 11/14/16, but she makes it very clear by telephone on 11/18/16 that "since there is family around, I do not want to be the decision-maker for him in any way." I spoke with the patient's 21-year-old son Alexei Mohan [phone] in [place] by telephone, and he reports that he also does not want to be involved in the decision making; "he has not had any impact or played any role in my life, so that would not be appropriate for me to make decisions for him." Thus, the patient's mother Nellie Ying is his healthcare proxy decision-maker. Objective Vital Signs Date Time Temp Pulse Resp B/P Pulse Ox O2 Delivery O2 Flow Rate FiO2 12/03/16 15:12 100 45 12/03/16 14:00 110 12/03/16 13:17 45 12/03/16 13:00 103 27 117/60 100 12/03/16 12:40 45 12/03/16 12:00 102 12/03/16 12:00 101.2 102 24 113/55 98 7/18/17 11:18 97 45 7/18/17 11:00 106 0 115/57 97 7/18/17 10:00 106 7/18/17 10:00 106 0 118/58 100 7/18/17 09:41 25 7/18/17 09:00 104 25 128/61 98 7/18/17 08:46 45 7/18/17 08:40 45 7/18/17 08:13 98 45 7/18/17 08:00 45 7/18/17 08:00 101.9 103 22 126/58 98 7/18/17 08:00 103 7/18/17 07:30 Mechanical Ventilator 45 7/18/17 07:00 101 21 123/59 98 7/18/17 06:45 101 21 98 7/18/17 06:30 101 20 121/56 99 7/18/17 06:15 101 22 97 7/18/17 06:00 100 18 116/59 100 7/18/17 06:00 100 7/18/17 05:45 101 20 97 7/18/17 05:30 104 26 111/55 96 7/18/17 05:15 103 28 92 7/18/17 05:01 103 25 114/53 97 7/18/17 05:00 103 21 95 7/18/17 04:45 101 21 97 7/18/17 04:30 102 21 113/53 97 7/18/17 04:15 103 22 97 7/18/17 04:00 101 19 113/54 97 7/18/17 04:00 45 7/18/17 04:00 101 7/18/17 04:00 101 19 113/54 97 7/18/17 04:00 99.7 101 19 113/54 97 7/18/17 03:45 100 20 97 7/18/17 03:38 98 45 7/18/17 03:30 100 20 114/53 99 7/18/17 03:15 99 19 99 7/18/17 03:00 99 20 114/53 99 7/18/17 02:45 99 19 98 7/18/17 02:30 99 20 117/56 98 7/18/17 02:15 100 18 98 7/18/17 02:00 100 7/18/17 02:00 100 21 118/56 97 7/18/17 01:45 100 12 97 718/17 01:30 101 19 120/57 96 718/17 01:15 101 20 96 18/17 01:00 101 24 123/57 95 18/17 00:45 102 22 95 18/17 00:30 103 24 125/58 94 18/17 00:15 103 23 96 18/17 00:15 95 Mechanical Ventilator 55 12/03/16 00:00 104 18 00:00 104 18 136/62 100 1817 00:00 70 12/03/16 00:00 104 18 136/62 100 12/03/16 00:00 98.8 104 26 136/62 100 12/02/16 23:45 106 26 95 17 23:30 108 28 140/65 94 12/02/16 23:15 109 30 92 12/02/16 23:03 93 70 12/02/16 23:00 111 32 150/70 90 12/02/16 23:00 92 Mechanical Ventilator 70 12/02/16 22:45 113 28 82 12/02/16 22:30 96 33 143/68 96 17 22:30 90 Mechanical Ventilator 80 12/02/16 22:15 101 24 96 12/02/16 22:00 102 24 138/63 95 17 22:00 102 12/02/16 21:45 103 25 96 12/02/16 21:30 103 26 135/64 96 12/02/16 21:15 104 23 94 12/02/16 21:00 103 26 138/61 95 17 20:45 103 25 95 17 20:30 101 24 138/61 95 12/02/17 20:15 101 0 96 12/02/16 20:12 96 35 12/02/16 20:00 97 Mechanical Ventilator 35 12/02/16 20:00 101 12/02/16 20:00 101 0 131/60 97 17 20:00 99.4 101 21 131/60 97 17 20:00 35 17 18:00 105 Intake & Output 12/03/16 12/03/16 07:00 19:00 Intake Total 2510 ml 1559 ml Output Total 1180.0 ml 1275 ml Balance 1330.0 ml 284 ml IV Total 925 ml 758 ml Tube Feeding 965 ml 451 ml Tube Irrigant 100 ml Other 620 ml 250 ml Output Urine Total 880 ml 475 ml Stool Total 300 ml 800 ml Tube Feeding Residual Discard 0 ml Chest Tube Drainage Total 0 ml Physical Exam CONSTITUTIONAL/GENERAL: This is an adequately nourished patient, on the ventilator in [facility] [place]. TUBES/LINES/DRAINS: Central line, endotracheal tube, Santana catheter SKIN: No jaundice, rashes. He has multiple small, healing punctures and abrasions about his feet and ankles (reportedly from walking barefoot). CARDIOVASCULAR: Regular rate and rhythm with grade 2 systolic murmur. No JVD. Peripheral pulses symmetric. RESPIRATORY/CHEST: Symmetric, unlabored respirations. Scattered rhonchi GASTROINTESTINAL: Abdomen soft, nondistended. No hepato-splenomegaly, or palpable masses. No guarding. Bowel sounds present. MUSCULOSKELETAL: Extremities without clubbing, cyanosis, or edema. No joint tenderness or effusion noted. No mottling or clubbing. He has multiple small punctures and abrasions about his feet and ankles (reportedly from walking barefoot). NEUROLOGICAL: Opens eyes, tracks, follows some simple commands, but currently sedated PSYCHIATRIC: could not evaluated . Diagnostic Tests Laboratory Laboratory Tests Test 12/01/16 12/01/16 12/02/16 12/03/16 04:31 15:35 02:05 04:56 White Blood Count 6.0 TH/MM3 7.4 TH/MM3 9.7 TH/MM3 (4.0-11.0) (4.0-11.0) (4.0-11.0) Red Blood Count 2.50 MIL/MM3 2.44 MIL/MM3 2.36 MIL/MM3 (4.50-5.90) (4.50-5.90) (4.50-5.90) Hemoglobin 7.7 GM/DL 7.5 GM/DL 7.4 GM/DL (13.0-17.0) (13.0-17.0) (13.0-17.0) Hematocrit 23.5 % 23.2 % 22.5 % (39.0-51.0) (39.0-51.0) (39.0-51.0) Mean Corpuscular Volume 94.0 FL 95.1 FL 95.3 FL (80.0-100.0) (80.0-100.0) (80.0-100.0) Mean Corpuscular Hemoglobin 30.8 PG 30.7 PG 31.5 PG (27.0-34.0) (27.0-34.0) (27.0-34.0) Mean Corpuscular Hemoglobin 32.7 % 32.3 % 33.0 % Concent (32.0-36.0) (32.0-36.0) (32.0-36.0) Red Cell Distribution Width 16.2 % 15.8 % 15.7 % (11.6-17.2) (11.6-17.2) (11.6-17.2) Platelet Count 311 TH/MM3 276 TH/MM3 254 TH/MM3 (150-450) (150-450) (150-450) Mean Platelet Volume 7.3 FL 7.1 FL 7.4 FL (7.0-11.0) (7.0-11.0) (7.0-11.0) Neutrophils (%) (Auto) 78.5 % 81.9 % 83.4 % (16.0-70.0) (16.0-70.0) (16.0-70.0) Lymphocytes (%) (Auto) 10.5 % 8.3 % 10.3 % (9.0-44.0) (9.0-44.0) (9.0-44.0) Monocytes (%) (Auto) 10.3 % 9.2 % (0.0-8.0) 6.0 % (0.0-8.0) (0.0-8.0) Eosinophils (%) (Auto) 0.5 % (0.0-4.0) 0.3 % (0.0-4.0) 0.2 % (0.0-4.0) Basophils (%) (Auto) 0.2 % (0.0-2.0) 0.3 % (0.0-2.0) 0.1 % (0.0-2.0) Neutrophils # (Auto) 4.7 TH/MM3 6.1 TH/MM3 8.1 TH/MM3 (1.8-7.7) (1.8-7.7) (1.8-7.7) Lymphocytes # (Auto) 0.6 TH/MM3 0.6 TH/MM3 1.0 TH/MM3 (1.0-4.8) (1.0-4.8) (1.0-4.8) Monocytes # (Auto) 0.6 TH/MM3 0.7 TH/MM3 0.6 TH/MM3 (0-0.9) (0-0.9) (0-0.9) Eosinophils # (Auto) 0.0 TH/MM3 0.0 TH/MM3 0.0 TH/MM3 (0-0.4) (0-0.4) (0-0.4) Basophils # (Auto) 0.0 TH/MM3 0.0 TH/MM3 0.0 TH/MM3 (0-0.2) (0-0.2) (0-0.2) CBC Comment DIFF FINAL DIFF FINAL DIFF FINAL Differential Comment Sodium Level 145 MEQ/L 146 MEQ/L 147 MEQ/L (136-145) (136-145) (136-145) Potassium Level 3.1 MEQ/L 3.8 MEQ/L 3.6 MEQ/L (3.5-5.1) (3.5-5.1) (3.5-5.1) Chloride Level 110 MEQ/L 112 MEQ/L 111 MEQ/L (98-107) (98-107) (98-107) Carbon Dioxide Level 27.0 MEQ/L 26.8 MEQ/L 26.9 MEQ/L (21.0-32.0) (21.0-32.0) (21.0-32.0) Anion Gap 8 MEQ/L (5-15) 7 MEQ/L (5-15) 9 MEQ/L (5-15) Blood Urea Nitrogen 46 MG/DL (7-18) 41 MG/DL (7-18) 43 MG/DL (7-18) Creatinine 1.39 MG/DL 1.20 MG/DL 1.20 MG/DL (0.60-1.30) (0.60-1.30) (0.60-1.30) Estimat Glomerular Filtration 53 ML/MIN (>89) 63 ML/MIN (>89) 63 ML/MIN (>89) Rate Random Glucose 101 MG/DL 112 MG/DL 100 MG/DL (74-106) (74-106) (74-106) Calcium Level 8.3 MG/DL 8.1 MG/DL 8.1 MG/DL (8.5-10.1) (8.5-10.1) (8.5-10.1) Phosphorus Level 4.0 MG/DL 4.5 MG/DL (2.5-4.9) (2.5-4.9) Magnesium Level 2.2 MG/DL 2.1 MG/DL 2.1 MG/DL (1.5-2.5) (1.5-2.5) (1.5-2.5) Total Bilirubin 0.5 MG/DL 0.4 MG/DL 0.4 MG/DL (0.2-1.0) (0.2-1.0) (0.2-1.0) Aspartate Amino Transf 15 U/L (15-37) 10 U/L (15-37) 10 U/L (15-37) (AST/SGOT) Alanine Aminotransferase LESS THAN 6 LESS THAN 6 6 U/L (12-78) (ALT/SGPT) U/L (12-78) U/L (12-78) Alkaline Phosphatase 81 U/L (45-117) 77 U/L (45-117) 66 U/L (45-117) Total Protein 6.2 GM/DL 6.3 GM/DL 6.4 GM/DL (6.4-8.2) (6.4-8.2) (6.4-8.2) Albumin 1.4 GM/DL 1.4 GM/DL 1.3 GM/DL (3.4-5.0) (3.4-5.0) (3.4-5.0) Result Diagram: 12/03/16 0456 12/03/16 0456 Microbiology Microbiology Date/Time Procedure Status Source Growth 12/02/16 11:50 Gram Stain - Final Resulted Sputum Endotracheal 12/02/16 11:50 Sputum Culture - Preliminary Resulted Sputum Endotracheal HEAVY GROWTH NORMAL RESPIRATORY JAROCHO... 12/02/16 14:34 Aerobic Blood Culture - Preliminary Resulted Blood Peripheral NO GROWTH IN 1 DAY 12/02/16 14:34 Anaerobic Blood Culture - Preliminary Resulted Blood Peripheral NO GROWTH IN 1 DAY 12/02/16 14:39 Aerobic Blood Culture - Preliminary Resulted Blood Peripheral NO GROWTH IN 1 DAY 12/02/16 14:39 Anaerobic Blood Culture - Preliminary Resulted Blood Peripheral NO GROWTH IN 1 DAY 12/02/16 20:15 Urine Culture - Preliminary Resulted Urine Catheterized Urine NO GROWTH IN 24 HOURS. Procedures Thoracentesis and right (pigtail) thoracostomy 11/14/16 INTUBATION 11/16/16 Bronchoscopy 11/16/16 . 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 Never . One estranged son in [place]. Spiritual: The patient is not and has not ever been spiritual or anglican person according to the family, but the family does want the over the horizon targeting supervisor to continue to come and visit. Legal: The patient lacks capacity for decision-making, and it it is uncertain whether he will regain that capacity. Initially, he had named his landlord Kerrie Correa as healthcare surrogate, but she makes it very clear by telephone [phone] on 11/18/16 that "since there is family around, I do not want to be the decision-maker for him in any way." I spoke with the patient's 21-year-old son Alexei Mohan [phone] in [place] by telephone, and he reports that he also does not want to be involved in the decision making; "he has not had any impact or played any role in my life, so that would not be appropriate for me to make decisions for him." Thus, the patient's mother Nellie Ying is his healthcare proxy decision-maker. Ethical issues impacting care: None . Important Contacts Mother: Nellie Ying <----> PROXY DECISION-MAKER -- [phone] Son: (estranged for many years) Adarsh Mohan [phone] . Prognosis The patient has multisystem organ failure and septic shock with a large vegetation on his aortic valve, and his overall prognosis is quite guarded at best, and poor at worse. At risk for decompensation, sudden setback and . . Code Status: Alternative Code Plan ==Change to Intubation only. No compressions, shock or acls drugs. ==DECISION-MAKING: The patient lacks capacity for decision-making at this time , and it is uncertain whether he will regain that capacity. The patient's mother Nellie Ying is his healthcare proxy decision-maker. ==Goals of Care: Met with pt's Mother, Sister and Friend today 11/26/2016. Multiple family meeting and discussion with pt's mother. Understand pt has cardiac vegetation and that without surgery, likely will not clear infection, and overall poor prognosis. At this point in time, not a surgical candidate. Reviewed thus far he is unable to be weaned off the ventilator and likely will need decision on trach and peg by this Friday. Reviewed what peg and trach means, and his overall prognosis, if he is able to leave and survive hospitalization, he is as risk for multiple hospitalization and visits. They decided on peg and trach. Follow up with pt's and family- After discussion, mom is amenable to change to intubation only, no shock, compressions or acls drugs. Continue medical treatment, and see if pt could progress. Anticipate sister will come to town this to see him. Any change in goals of care, decisions can be review with palliative next week Friday after pt's sister have seen him. ==SYMPTOMS: Any pain or dyspnea is being managed by appropriate sedation and the ventilator, and I have no additional medication recommendations at this time. ==Palliative Care will continue to follow the patient during this hospitalization. . Time Spent Total Floor Time (mins): 45 Face to Face Time (mins): 35 Attestation To help prompt me to consider important information that might be impacting today's encounter and assessment, information from prior notes written by myself or my colleagues may have been "brought forward" into today's note. My signature on this note, however, is an attestation that I personally performed the exam, history, and/or decision-making noted today, and, unless otherwise indicated, the interactions with patient, family, and staff as well as the review of records all occurred today. I also attest that the listed assessment and stated plan reflect my best clinical judgment today based on the combination of historical information, prior notes, and today's exam/ interactions. When time spent is documented, it refers only to time spent today by the signer, or if indicated, combined time spent today by collaborating physician/nurse practitioner. Celestine Hampton MD Dec 03, 2016 16:29
[2016-12-03] MEDS: LORazepam 0.5 MG TAB PO SCH (17:13)
--- NOTE | 2016-12-03 19:02 | HHI.PR ---
Subjective Remarks Patient was intubated last night for acute hypoxemic resp failure and a right chest tube was placed for right hydroPTX in addition patient underwent bronch with BAL ( mucous plugs b/l suctioned to clear). MRI brain multifocal area of septic emboli/infarct Sedated with Precedex and Fentanyl Had Trach and PEG Tolerates TF Tolerated CPAP 3 hrs Objective Vital Signs Vital Signs Date Time Temp Pulse Resp B/P Pulse Ox O2 Delivery O2 Flow Rate FiO2 12/03/16 18:00 99 12/03/16 16:30 104 30 122/61 100 12/03/16 16:00 45 12/03/16 16:00 106 12/03/16 16:00 100.2 106 26 131/60 100 12/03/16 15:12 100 45 12/03/16 15:00 109 27 142/72 100 12/03/16 14:00 110 24 137/64 100 12/03/16 14:00 110 12/03/16 13:17 45 12/03/16 13:00 103 27 117/60 100 12/03/16 12:40 45 12/03/16 12:00 102 12/03/16 12:00 101.2 102 24 113/55 98 12/03/16 11:18 97 45 12/03/16 11:00 106 0 115/57 97 12/03/16 10:00 106 12/03/16 10:00 106 0 118/58 100 12/03/16 09:41 25 12/03/16 09:00 104 25 128/61 98 12/03/16 08:46 45 12/03/16 08:40 45 12/03/16 08:13 98 45 12/03/16 08:00 45 12/03/16 08:00 101.9 103 22 126/58 98 12/03/16 08:00 103 12/03/16 07:30 Mechanical Ventilator 45 12/03/16 07:00 101 21 123/59 98 12/03/16 06:45 101 21 98 12/03/16 06:30 101 20 121/56 99 12/03/16 06:15 101 22 97 12/03/16 06:00 100 18 116/59 100 12/03/16 06:00 100 12/03/16 05:45 101 20 97 12/03/16 05:30 104 26 111/55 96 7/18/17 05:15 103 28 92 7/18/17 05:01 103 25 114/53 97 7/18/17 05:00 103 21 95 7/18/17 04:45 101 21 97 7/18/17 04:30 102 21 113/53 97 7/18/17 04:15 103 22 97 7/18/17 04:00 101 19 113/54 97 7/18/17 04:00 45 7/18/17 04:00 101 7/18/17 04:00 101 19 113/54 97 7/18/17 04:00 99.7 101 19 113/54 97 7/18/17 03:45 100 20 97 7/18/17 03:38 98 45 7/18/17 03:30 100 20 114/53 99 7/18/17 03:15 99 19 99 7/18/17 03:00 99 20 114/53 99 7/18/17 02:45 99 19 98 7/18/17 02:30 99 20 117/56 98 7/18/17 02:15 100 18 98 7/18/17 02:00 100 7/18/17 02:00 100 21 118/56 97 7/18/17 01:45 100 12 97 7/18/17 01:30 101 19 120/57 96 7/18/17 01:15 101 20 96 7/18/17 01:00 101 24 123/57 95 7/18/17 00:45 102 22 95 7/18/17 00:30 103 24 125/58 94 7/18/17 00:15 103 23 96 7/18/17 00:15 95 Mechanical Ventilator 55 7/18/17 00:00 104 7/18/17 00:00 104 18 136/62 100 7/18/17 00:00 70 7/18/17 00:00 104 18 136/62 100 7/18/17 00:00 98.8 104 26 136/62 100 7/17/17 23:45 106 26 95 7/17/17 23:30 108 28 140/65 94 7/17/17 23:15 109 30 92 7/17/17 23:03 93 70 7/17/17 23:00 111 32 150/70 90 7/17/17 23:00 92 Mechanical Ventilator 70 7/17/17 22:45 113 28 82 7/17/17 22:30 96 33 143/68 96 12/02/16 22:30 90 Mechanical Ventilator 80 12/02/16 22:15 101 24 96 12/02/16 22:00 102 24 138/63 95 12/02/16 22:00 102 12/02/16 21:45 103 25 96 12/02/16 21:30 103 26 135/64 96 12/02/16 21:15 104 23 94 12/02/16 21:00 103 26 138/61 95 12/02/16 20:45 103 25 95 12/02/16 20:30 101 24 138/61 95 12/02/16 20:15 101 0 96 12/02/16 20:12 96 35 12/02/16 20:00 97 Mechanical Ventilator 35 12/02/16 20:00 101 12/02/16 20:00 101 0 131/60 97 12/02/16 20:00 99.4 101 21 131/60 97 12/02/16 20:00 35 I/O 12/02/16 12/02/16 12/02/16 12/03/16 12/03/16 12/03/16 07:00 15:00 23:00 07:00 15:00 23:00 Intake Total 976 ml 1407 ml 1261 ml 1249 ml 1559 ml Output Total 650 ml 1180 ml 600 ml 580 ml 1275 ml Balance 326 ml 227 ml 661 ml 669 ml 284 ml IV Total 376 ml 706 ml 444 ml 481 ml 758 ml Tube Feeding 350 ml 451 ml 507 ml 458 ml 451 ml Tube Irrigant 100 ml Other 250 ml 250 ml 310 ml 310 ml 250 ml Output Urine Total 450 ml 550 ml 480 ml 400 ml 475 ml Stool Total 200 ml 600 ml 120 ml 180 ml 800 ml Tube Feeding Residual Discard 0 ml Chest Tube Drainage Total 0 ml 30 ml 0 ml 0 ml Result Diagram: 12/03/16 0456 12/03/16 0456 Objective Remarks GENERAL: Patient is 56 yo critically ill intubated , sedated and on pressors. SKIN: Warm and dry. HEAD: Normocephalic. EYES: No scleral icterus. No injection or drainage. NECK: Supple, trachea midline. No JVD or lymphadenopathy. CARDIOVASCULAR: Regular rate and rhythm without murmurs, gallops, or rubs. RESPIRATORY: Breath sounds equal bilaterally. No accessory muscle use. GASTROINTESTINAL: Abdomen soft, non-tender, nondistended. MUSCULOSKELETAL: No cyanosis, or edema. Neuro: Sedated and intubated A/P Assessment and Plan 1VDRF 2)Septic shock 3)Staph Aureus bacteremia 4)Empyema 6)Endocarditis involving AV 7)Leucocytosis 8)Cavitary pulm masses 2nd staph Aureus 9)Right hydroPTX PLAN: Continue with vent support keep sat >92% Bronchodilators, ICU vent bundle, on stress dose steroids- HC 100mg IV Q8 On PRVC/AC , 35% Abx per ID Chest tube to suction Sedation with Precedex and fentanyl CPAP trial in AM. Emmett Bolton MD Dec 03, 2016 19:01
[2016-12-04] VITALS (44 sets, daily range): BP systolic 100–167; BP diastolic 50–81; PULSE 98–129; RESP 14–33; TEMP 97.9–103.7; O2SAT 91–100
[2016-12-04] MEDS: RESP: ALBUTEROL 2.5 MG/IPRATROPIUM 0.5 MG NEB (SCH) NEB ×5 (03:42→21:05)
[2016-12-04] MEDS: fentaNYL DRIP 250 ML IV SCH (04:25)
[2016-12-04] MEDS: DEXMEDETOMIDINE INJ 200 MCG in SODIUM CHLORIDE 0.9% INJ 50 ML IV SCH ×3 (04:26→10:32)
[2016-12-04] MEDS: CHLORHEXIDINE GLUCONATE 2 % 1 PACK (2 CLOTHS) TOP SCH (05:00)
[2016-12-04] MEDS: INSULIN ASPART SUPPLEMENTAL SCALE SQ SCH ×4 (05:00→23:00)
[2016-12-04] MEDS: LORazepam 0.5 MG TAB PO SCH ×2 (05:44→17:28)
[2016-12-04] MEDS: FREE WATER G-TUBE SCH ×3 (05:44→20:29)
[2016-12-04] MEDS: ARTIFICIAL TEARS OPTH SOLN 15 ML BTL EACH EYE SCH ×3 (05:44→20:29)
[2016-12-04] MEDS: METOCLOPRAMIDE HCL 10 MG/2 ML VIAL IV SCH ×3 (05:44→20:29)
[2016-12-04] MEDS: ceFAZolin 2 GM PREMIX 50 ML IV SCH ×3 (05:47→17:28)
[2016-12-04] MEDS ORDERED: BUMETANIDE INJ 1 MG/4 ML VIAL IV PUSH ONE (07:00)
[2016-12-04] MEDS ORDERED: POTASSIUM CHLORIDE 25 MEQ EFFERVESCENT TAB PO ONE (07:00)
--- NOTE | 2016-12-04 08:29 | RADRPT ---
EXAM DATE/TIME: 12/04/2016 07:43 [facility] COMPARISON: ABDOMEN KUB ONLY, November 15, 2016, 3:07. INDICATIONS : Obstruction. MEDICAL HISTORY : Sepsis. SURGICAL HISTORY : Thoracentesis. ENCOUNTER: Initial ACUITY: 2 weeks PAIN SCORE: Non-responsive. LOCATION: Bilateral abdomen. FINDINGS: 2 supine frontal views of the abdomen are blurred by motion artifact. Worsening gaseous distention of the proximal small bowel is observed. No gross pneumoperitoneum. No organomegaly. No appreciable ry cifications. The degenerative lumbar spine. CONCLUSION: Dilatation of the small bowel with a pattern suggesting small bowel obstruction. Keyur Toro Jr., MD on December 04, 2016 at 8:25 Board Certified Radiologist. This report was verified electronically.
--- NOTE | 2016-12-04 08:31 | RADRPT ---
EXAM DATE/TIME: 12/04/2016 07:39 [facility] COMPARISON: CHEST SINGLE AP, December 03, 2016, 5:18. INDICATIONS : Respiratory distress. MEDICAL HISTORY : None. SURGICAL HISTORY : None. ENCOUNTER: Subsequent ACUITY: 2 weeks PAIN SCORE: Non-responsive. LOCATION: Bilateral chest FINDINGS: A single portable frontal view of the chest shows a right-sided thoracostomy tube as well as tracheos lizz tube a small subpulmonic pneumothorax is seen on the right. Patchy areas of parenchymal consolid ation are noted bilaterally most pronounced within the right upper lobe. These are worse when compare d to the prior study. No effusions. Heart is mildly enlarged. CONCLUSION: 1. New small subpulmonic pneumothorax on the right. 2. Developing bilateral pulmonary infiltrates. Keyur Toro Jr., MD on December 04, 2016 at 8:28 Board Certified Radiologist. This report was verified electronically.
[2016-12-04] MEDS: THIAMINE INJ 100 MG in SODIUM CHLORIDE 0.9% INJ 100 ML IV SCH (09:08)
[2016-12-04] MEDS: POLYETHYLENE GLYCOL 17 GM PKG PO SCH ×2 (09:08→20:28)
[2016-12-04] MEDS: HYDROCORTISONE SOD SUCCINATE 100 MG VIAL IV PUSH SCH ×2 (09:08→20:28)
[2016-12-04] MEDS: SODIUM CHLORIDE 0.9% FLUSH 10 ML FLUSH IVF SCH (09:09)
[2016-12-04] MEDS: LACTULOSE SYRUP 20 GM/30 ML CUP PO SCH (09:09)
[2016-12-04] MEDS: FOLIC ACID 1 MG TAB PO SCH (09:09)
[2016-12-04] MEDS: MULTIVITAMIN TAB PO SCH (09:09)
[2016-12-04] MEDS: PANTOPRAZOLE SODIUM 40 MG VIAL IV SCH ×2 (09:09→20:28)
[2016-12-04] MEDS: HEPARIN SODIUM - SQ 10,000 UNITS/ML VIAL SQ SCH ×2 (09:09→20:28)
[2016-12-04] MEDS: SODIUM CHLORIDE 0.9% FLUSH 10 ML FLUSH IV FLUSH SCH ×2 (09:09→20:28)
[2016-12-04] MEDS: CHLORHEXIDINE 0.12% (ORAL KIT) 15 ML CUP MT SCH ×2 (09:10→20:27)
--- NOTE | 2016-12-04 12:13 | HHI.GIFU ---
Subjective Remarks Reconsulted for abdominal distention. Pt awake on ventilator- in mild-mod distress- tachypneic, mildly labored breathing. Does endorse abdominal pain. ( +) stool. Worsening distention today and therefore KUB was done- consistent with sbo (Charlene Mueller) Objective Vitals I&O Vital Signs Date Time Temp Pulse Resp B/P Pulse Ox O2 Delivery O2 Flow Rate FiO2 12/04/16 10:00 129 30 162/76 97 12/04/16 10:00 129 12/04/16 09:00 119 27 154/70 100 12/04/16 08:43 99 40 12/04/16 08:00 110 12/04/16 08:00 97.9 110 26 152/70 100 12/04/16 08:00 40 12/04/16 07:31 Mechanical Ventilator 40 12/04/16 07:00 108 21 153/72 100 12/04/16 06:45 98 28 100 12/04/16 06:30 109 18 149/69 100 12/04/16 06:15 109 25 100 12/04/16 06:00 113 12/04/16 06:00 113 20 145/66 100 12/04/16 05:45 113 24 100 12/04/16 05:30 104 28 132/60 100 12/04/16 05:15 108 30 100 12/04/16 05:00 109 28 148/70 91 12/04/16 04:45 110 27 100 12/04/16 04:30 104 23 133/60 100 12/04/16 04:15 100 31 97 12/04/16 04:00 99.2 106 22 131/62 100 12/04/16 04:00 106 25 131/62 100 12/04/16 04:00 106 12/04/16 04:00 106 25 131/62 100 12/04/16 04:00 45 12/04/16 03:45 113 15 100 12/04/16 03:30 121 27 146/81 99 12/04/16 03:15 120 24 99 12/04/16 03:00 114 21 143/66 100 12/04/16 02:45 111 23 98 12/04/16 02:30 122 25 167/76 99 12/04/16 02:15 108 22 99 12/04/16 02:00 104 12/04/16 02:00 104 15 127/58 97 719/17 01:45 110 22 98 719/17 01:30 116 24 145/78 98 719/17 01:19 100 45 7/17 01:15 110 27 98 7/17 01:00 113 14 132/62 97 7 00:45 114 24 97 12/04/16 00:30 117 20 129/63 97 7 00:15 119 25 97 7 00:00 108 29 132/78 100 12/04/16 00:00 108 29 132/78 100 12/04/ 00:00 45 12/04/16 00:00 99.4 108 25 132/78 100 12/04/16 00:00 108 718/17 23:45 111 23 100 718/17 23:30 110 18 132/75 100 718/17 23:15 109 13 100 718/17 23:00 110 15 130/74 100 718/17 22:45 108 19 100 7/18/17 22:30 99 23 123/59 99 7/18/17 22:15 107 4 99 7/18/17 22:00 99.9 7/18/17 22:00 112 20 133/62 100 7/18/17 22:00 112 7/18/17 21:45 114 25 100 7/18/17 21:30 115 22 138/65 100 7/18/17 21:15 114 24 100 7/18/17 21:00 106 6 125/60 98 7/18/17 20:45 105 26 98 7/18/17 20:30 118 24 140/73 100 7/18/17 20:25 100 45 7/18/17 20:15 116 21 100 7/18/17 20:00 116 28 140/68 100 7/18/17 20:00 102.9 116 26 140/68 100 7/18/17 20:00 45 7/18/17 20:00 116 7/18/17 20:00 100 Mechanical Ventilator 45 7/18/17 18:00 99 7/18/17 16:30 104 30 122/61 100 7/18/17 16:00 45 7/18/17 16:00 106 7/18/17 16:00 100.2 106 26 131/60 100 12/03/16 15:12 100 45 12/03/16 15:00 109 27 142/72 100 12/03/16 14:00 110 24 137/64 100 12/03/16 14:00 110 12/03/16 13:17 45 12/03/16 13:00 103 27 117/60 100 12/03/16 12:40 45 12/03/16 12:00 102 12/03/16 12:00 101.2 102 24 113/55 98 I/O 12/03/16 12/03/16 12/03/16 12/04/16 12/04/16 12/04/16 07:00 15:00 23:00 07:00 15:00 23:00 Intake Total 1249 ml 1559 ml 1003 ml 1171 ml Output Total 580 ml 1275 ml 1370 ml 1690 ml Balance 669 ml 284 ml -367 ml -519 ml IV Total 481 ml 758 ml 272 ml 330 ml Tube Feeding 458 ml 451 ml 421 ml 531 ml Tube Irrigant 100 ml Other 310 ml 250 ml 310 ml 310 ml Output Urine Total 400 ml 475 ml 450 ml 550 ml Stool Total 180 ml 800 ml 920 ml 1020 ml Tube Feeding Residual Discard 0 ml 0 ml 0 ml Chest Tube Drainage Total 0 ml 0 ml 120 ml Laboratory Date/Time Procedure Status Source Growth 12/02/16 20:15 Urine Culture - Preliminary Resulted Urine Catheterized Urine Yeast Species 12/02/16 14:39 Aerobic Blood Culture - Preliminary Resulted Blood Peripheral NO GROWTH IN 2 DAYS 12/02/16 14:39 Anaerobic Blood Culture - Preliminary Resulted Blood Peripheral NO GROWTH IN 2 DAYS 12/02/16 11:50 Gram Stain - Final Complete Sputum Endotracheal 12/02/16 11:50 Sputum Culture - Final Complete Sputum Endotracheal HEAVY GROWTH NORMAL RESPIRATORY [facility] Imaging Last Impressions Chest X-Ray 12/04/16 0000 Signed Impressions: Service Date/Time: Sunday, December 04, 2016 07:39 - CONCLUSION: 1. New small subpulmonic pneumothorax on the right. 2. Developing bilateral pulmonary infiltrates. Keyur Toro Jr., MD Abdomen X-Ray 12/04/16 0000 Signed Impressions: Service Date/Time: Sunday, December 04, 2016 07:43 - CONCLUSION: Dilatation of the small bowel with a pattern suggesting small bowel obstruction. Keyur Toro Jr., MD Brain MRI 7/6/17 0000 Signed Impressions: Service Date/Time: November 12:33 - CONCLUSION: Multifocal areas of restricted diffusion primarily in the periventricular and subcortical white matter bilaterally but also cortically based in the right frontal lobe. Findings likely represent ischemic change likely related to septic emboli given the patient's clinical history. No abscess or enhancing lesion is visualized. Agustin Bonner MD Head CT 11/17/16 0600 Signed Impressions: Service Date/Time: Thursday, November 17, 2016 10:39 - CONCLUSION: No significant change has occurred. Deven Urrutia MD Chest CT 11/16/16 0000 Signed Impressions: Service Date/Time: Wednesday, November 16, 2016 20:36 - CONCLUSION: 1. New right chest tube in the posterior superior right pleural space. There continues to be a moderate right pleural effusion primarily seen at the base. Some degree of loculation may be present inferiorly. The effusion does not layer posteriorly. There are scattered punctate areas of air within the pleural space inferiorly on the right. There is a solitary small area of air within the mild left pleural effusion. 2. Numerous irregular masses seen throughout both lungs some which are cavitary. These are nonspecific. Inflammatory masses needs be suspected. The multiplicity raises possibility of septic emboli. Agustin Price MD Abdomen/Pelvis CT 11/14/16 0000 Signed Impressions: Service Date/Time: October 09:55 - CONCLUSION: 1. Multiple loops of fluid-filled small bowel which are larger in caliber in comparison to yesterday's examination although not enlarged by size criteria. This may reflect mild enteritis versus developing mild adynamic ileus. 2. Persistent luminal narrowing at the gastroduodenal junction without definite focal mass. This is of uncertain clinical significance and likely reflects gastric contraction. Gastric mass/metastatic disease is not very likely based on appearance although it cannot be excluded. 3. 2 cm ill-defined hypodense lesion in the left renal mid pole with indeterminate density. Differential considerations include complex cyst versus metastatic disease in this patient with apparent diffuse metastatic disease in the chest. 4. Redemonstration of multiple bilateral cavitary masses at the lung bases with loculated right pleural effusion. Elder Long MD CT Angiography 11/13/16 0768 Signed Impressions: Service Date/Time: Sunday, November 13, 2016 15:50 - CONCLUSION: 1. Multiple cavitary lesions within both lungs with the largest measuring 9.5 cm in the right upper lobe. Differential diagnosis includes infectious and neoplastic etiologies. 2. Moderate sized right pleural effusion with adjacent compressive atelectasis and/or infiltrate. 3. Cardiomegaly and coronary artery calcifications. 4. Subcarinal mediastinal lymphadenopathy. 5. Degenerative changes throughout the thoracic spine. Jed Ponce MD Physical Exam HEENT: Normocephalic; atraumatic CHEST: Labored, tachypneic, trach to vent, course breath sounds. chest tube right chest, 20cm wall suction CARDIAC: ST- 130's- this was around 110 earlier today and overnight. ABDOMEN: Abdomen tympanic, distended, diffuse tenderness, Bowel sounds present , PEG site free of erythema, swelling EXTREMITIES: Generalized edema. SKIN: Multiple spotted lesions to ble/feet. 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 Abdomen X-Ray (12/04/16)-----> Dilatation of the small bowel with a pattern suggesting small bowel obstruction. Pt with significant distention, tympanic abdomen. (+) Stool. KUB with possible SBO. ? Severe ileus. Pt is in mild-mod distress with labored breathing, tachypneic, increased hr- but is more awake than usual. Make NPO , Place peg to LIWS, Stat CT scan. Stat CBC, Lactic acid. Suspect possible severe ileus, but will need to r/o perforation or sbo. Pt does seem in mild-mod distress- but is awake on ventilator and unsure how much is related to that vs. underlying process - Abdominal pain. Abdomen/Pelvis CT (11/14/16)-----> 1. Multiple loops of fluid- filled small bowel which are larger in caliber in comparison to yesterday's examination although not enlarged by size criteria. This may reflect mild enteritis versus developing mild adynamic ileus. 2. Persistent luminal narrowing at the gastroduodenal junction without definite focal mass. This is of uncertain clinical significance and likely reflects gastric contraction. Gastric mass/metastatic disease is not very likely based on appearance although it cannot be excluded. 3. 2 cm ill-defined hypodense lesion in the left renal mid pole with indeterminate density. Differential considerations include complex cyst versus metastatic disease in this patient with apparent diffuse metastatic disease in the chest. 4. Redemonstration of multiple bilateral cavitary masses at the lung bases with loculated right pleural effusion. Worsening pain today. PPI. - Abnormal imaging with persistent luminal narrowing at the gastroduodenal junction without definite focal mass- okay on EGD. S/P EGD with PEG placement (11/29/16)-----> normal esophagus, normal stomach, normal duodenum, successful PEG tube placement - Anemia. Likely multifactorial. No active bleeding. HH 7.09/07.5. - Elevated alk phosphatase. Normalized. Hepatitis panel negative. - Bilateral cavitary lung lesions, right sided pleural effusion. CT Angiography (11/13/16)----> 1. Multiple cavitary lesions within both lungs with the largest measuring 9.5 cm in the right upper lobe. Differential diagnosis includes infectious and neoplastic etiologies. 2. Moderate sized right pleural effusion with adjacent compressive atelectasis and/or infiltrate. 3. Cardiomegaly and coronary artery calcifications. 4. Subcarinal mediastinal lymphadenopathy. Degenerative changes throughout the thoracic spine. S/P CT , but pt pulled out on 11/15. Pleural fluid with staphylococcus aureus. CT replaced. He became tachypneic on 11/[address] chest (11/16/16) ---> Right hydropneumothorax and bilateral cavitary masses greatest in the right upper lobe. Chest X-Ray hest X-Ray (12/04/16)----> 1. New small subpulmonic pneumothorax on the right. 2. Developing bilateral pulmonary infiltrates. Pulm/ID/CCM following. Ancef - Sepsis with endocarditis and septic emboli. Abnormal 2D echo with moderate aortic regurgitation and CHANDNI with large vegetation. S/P CVT evaluation, no plans for surgical intervention at this time. Brain MRI (11/21/16)-----> Multifocal areas of restricted diffusion primarily in the periventricular and subcortical white matter bilaterally but also cortically based in the right frontal lobe. Findings likely represent ischemic change likely related to septic emboli given the patient's clinical history. No abscess or enhancing lesion is visualized. Abx per ID/CCM. Ancef. - Respiratory failure - per CCM s/p bronch, chest tube insertion, intubation PLAN: - NPO - PEG to LIWS - Stat CT scan abdomen and pelvis - Stat CBC, Lactic acid - Abx per ID/CCM - Monitor stool output - Supportive care - Further recommendations to follow based on results of above - Pt seen and examined by Dr. Magallon and myself and this note is written on his behalf Spoke to Dr. Rashid in radiology re: CT scan- multiple small pockets of free air, but it is unclear the etiology of this, as patient recently had PEG tube placed and also has PTX. However, he cannot rule out perforation. SB dilated, no transition point. Will notify GI to get their opinion. Keep NPO, NGT to LIWS. GS evaluation (Charlene Mueller) Physician Comments seen, examined agree with above abdomen softer after peg placed to suction, possible ileus vs obstruction most likely loculated free air from pneumothorax doubt perforated viscous ( Brisa Magallon MD) Charlene Mueller Dec 04, 2016 12:13 Brisa Magallon MD Dec 04, 2016 15:26
[2016-12-04] MEDS: ACETAMINOPHEN 325 MG TAB PO PRN ×2 (12:33→23:33)
[2016-12-04] MEDS ORDERED: METOPROLOL TARTRATE 5 MG/5 ML VIAL IV PUSH ONE ×2 (13:15→13:30)
--- NOTE | 2016-12-04 13:15 | HHI.IDPN ---
Note Infectious Disease Note On the vent. 40% FIO2. Trach. Temp spike to 103 today. Not responsive. D/W RN. Large vegetation on AV and moderate aortic regurg on CHANDNI. Culture of blood 11/13, 11/15, 11/16. - Staph aureus. 11/19 no growth. Culture of pleural fluid 11/14 - staph aureus. ALLERGIES NO KNOWN DRUG ALLERGIES. ANTIBIOTICS: Ancef. OBJECTIVE: Vital Signs Date Time Temp Pulse Resp B/P Pulse Ox O2 Delivery O2 Flow Rate FiO2 12/04/16 12:21 99 40 12/04/16 10:00 129 30 162/76 97 12/04/16 10:00 129 12/04/16 09:00 119 27 154/70 100 12/04/16 08:43 99 40 12/04/16 08:00 110 12/04/16 08:00 97.9 110 26 152/70 100 12/04/16 08:00 40 12/04/16 07:31 Mechanical Ventilator 40 12/04/16 07:00 108 21 153/72 100 12/04/16 06:45 98 28 100 12/04/16 06:30 109 18 149/69 100 12/04/16 06:15 109 25 100 12/04/16 06:00 113 12/04/16 06:00 113 20 145/66 100 12/04/16 05:45 113 24 100 12/04/16 05:30 104 28 132/60 100 12/04/16 05:15 108 30 100 12/04/16 05:00 109 28 148/70 91 12/04/16 04:45 110 27 100 12/04/16 04:30 104 23 133/60 100 12/04/16 04:15 100 31 97 12/04/16 04:00 99.2 106 22 131/62 100 12/04/16 04:00 106 25 131/62 100 12/04/16 04:00 106 12/04/16 04:00 106 25 131/62 100 12/04/16 04:00 45 12/04/16 03:45 113 15 100 12/04/16 03:30 121 27 146/81 99 12/04/16 03:15 120 24 99 12/04/16 03:00 114 21 143/66 100 12/04/16 02:45 111 23 98 7/19/17 02:30 122 25 167/76 99 17 02:15 108 22 99 719/17 02:00 104 12/04/16 02:00 104 15 127/58 97 12/04/16 01:45 110 22 98 7/17 01:30 116 24 145/78 98 7/17 01:19 100 45 7/ 01:15 110 27 98 7 01:00 113 14 132/62 97 12/04/16 00:45 114 24 97 12/04/16 00:30 117 20 129/63 97 12/04/16 00:15 119 25 97 12/04/16 00:00 108 29 132/78 100 12/04/16 00:00 108 29 132/78 100 12/04/16 00:00 45 12/04/16 00:00 99.4 108 25 132/78 100 12/04/17 00:00 108 18/17 23:45 111 23 100 718/17 23:30 110 18 132/75 100 718/17 23:15 109 13 100 718/17 23:00 110 15 130/74 100 718/17 22:45 108 19 100 7/18/17 22:30 99 23 123/59 99 7/18/17 22:15 107 4 99 7/18/17 22:00 99.9 7/18/17 22:00 112 20 133/62 100 7/18/17 22:00 112 7/18/17 21:45 114 25 100 7/18/17 21:30 115 22 138/65 100 7/18/17 21:15 114 24 100 7/18/17 21:00 106 6 125/60 98 7/18/17 20:45 105 26 98 7/18/17 20:30 118 24 140/73 100 7/18/17 20:25 100 45 7/18/17 20:15 116 21 100 7/18/17 20:00 116 28 140/68 100 7/18/17 20:00 102.9 116 26 140/68 100 7/18/17 20:00 45 7/18/17 20:00 116 7/18/17 20:00 100 Mechanical Ventilator 45 7/18/17 18:00 99 718/17 16:30 104 30 122/61 100 7/18/17 16:00 45 12/03/16 16:00 106 12/03/16 16:00 100.2 106 26 131/60 100 12/03/16 15:12 100 45 12/03/16 15:00 109 27 142/72 100 12/03/16 14:00 110 24 137/64 100 12/03/16 14:00 110 12/03/16 13:17 45 Laboratory Tests Test 12/03/16 04:56 White Blood Count 9.7 TH/MM3 Red Blood Count 2.36 MIL/MM3 Hemoglobin 7.4 GM/DL Hematocrit 22.5 % Mean Corpuscular Volume 95.3 FL Mean Corpuscular Hemoglobin 31.5 PG Mean Corpuscular Hemoglobin 33.0 % Concent Red Cell Distribution Width 15.7 % Platelet Count 254 TH/MM3 Mean Platelet Volume 7.4 FL Neutrophils (%) (Auto) 83.4 % Lymphocytes (%) (Auto) 10.3 % Monocytes (%) (Auto) 6.0 % Eosinophils (%) (Auto) 0.2 % Basophils (%) (Auto) 0.1 % Neutrophils # (Auto) 8.1 TH/MM3 Lymphocytes # (Auto) 1.0 TH/MM3 Monocytes # (Auto) 0.6 TH/MM3 Eosinophils # (Auto) 0.0 TH/MM3 Basophils # (Auto) 0.0 TH/MM3 CBC Comment DIFF FINAL Differential Comment Laboratory Tests Test 12/03/16 04:56 Sodium Level 147 MEQ/L Potassium Level 3.6 MEQ/L Chloride Level 111 MEQ/L Carbon Dioxide Level 26.9 MEQ/L Anion Gap 9 MEQ/L Blood Urea Nitrogen 43 MG/DL Creatinine 1.20 MG/DL Estimat Glomerular Filtration 63 ML/MIN Rate Random Glucose 100 MG/DL Calcium Level 8.1 MG/DL Magnesium Level 2.1 MG/DL Total Bilirubin 0.4 MG/DL Aspartate Amino Transf 10 U/L (AST/SGOT) Alanine Aminotransferase 6 U/L (ALT/SGPT) Alkaline Phosphatase 66 U/L Total Protein 6.4 GM/DL Albumin 1.3 GM/DL Microbiology Date/Time Procedure Status Source Growth 12/02/16 11:50 Gram Stain - Final Complete Sputum Endotracheal 12/02/16 11:50 Sputum Culture - Final Complete Sputum Endotracheal HEAVY GROWTH NORMAL RESPIRATORY JAROCHO 12/02/16 14:34 Aerobic Blood Culture - Preliminary Resulted Blood Peripheral NO GROWTH IN 2 DAYS 12/02/16 14:34 Anaerobic Blood Culture - Preliminary Resulted Blood Peripheral NO GROWTH IN 2 DAYS 12/02/16 14:39 Aerobic Blood Culture - Preliminary Resulted Blood Peripheral NO GROWTH IN 2 DAYS 12/02/16 14:39 Anaerobic Blood Culture - Preliminary Resulted Blood Peripheral NO GROWTH IN 2 DAYS 12/02/16 20:15 Urine Culture - Preliminary Resulted Urine Catheterized Urine Yeast Species IMAGING: Chest X-Ray 12/04/16 0000 Signed Impressions: Service Date/Time: Sunday, December 04, 2016 07:39 - CONCLUSION: 1. New small subpulmonic pneumothorax on the right. 2. Developing bilateral pulmonary infiltrates. Keyur Toro Jr., MD Abdomen X-Ray 12/04/16 0000 Signed Impressions: Service Date/Time: Sunday, December 04, 2016 07:43 - CONCLUSION: Dilatation of the small bowel with a pattern suggesting small bowel obstruction. Keyur Toro Jr., MD PHYSICAL EXAMINATION GENERAL: On the vent. Sedated. HEENT: No icterus. Oropharynx: No lesions. NECK: Supple without adenopathy. LUNGS: Bilateral rhonchi. HEART: Normal S1-S2 with 2/6 IRMA at LSB. ABDOMEN: Distended. Bowel sounds not audible. EXTREMITIES: No clubbing or cyanosis or edema. SKIN: No diffuse rash. NEURO: Sedated. Calm. PSYCH: unable to assess. IMPRESSION 1. Endocarditis Aortic valve Staph aureus (MSSA). 2. Cavitary pulmonary lesions. 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 3. Pneumonia/parapneumonic effusion- MSSA. 4. Skin lesions which potentially could be embolic. 5. Leukocytosis secondary to infection. WBC improved. Now normal. 6. Fever secondary to infection. Improved. 7. Vent dependent respiratory failure. 8. recurrent high spiking fever. New sepsis. RECOMMENDATIONS 1. Continue IV Ancef. 2. Add antifungal Micafungin. 3. Dose of Vancomycin today. 4. Monitor temperature. 5. Follow Abdominal CT scan. Slava Garcia MD Dec 04, 2016 13:15
--- NOTE | 2016-12-04 14:12 | HHI.CCPN ---
Subjective Remarks/Hospital Course 56-year-old male is brought to the emergency department by EMS for evaluation of generalized weakness, confusion for about 2 weeks, and also increasing shortness of breath. His oxygen saturation was 88% on room air. EMS administered breathing treatments and Solu-Medrol 125 mg 1 and placed him on nasal cannula. Patient states that he had been sick for almost 10 days, but he is a poor historian. He had a productive cough, but reports no hematemesis or weight loss. He states that it was his neighbor who made him called EMS. He has no past medical history and last time had seen a doctor was about 15 years ago. He denies any fevers but reports some night sweats and chills. He was tachycardic with a heart rate of 115 bpm, had severe leukocytosis with a white count of 35,000 with 91% neutrophils. CMP shows hyponatremia with a sodium of 126. Lactic acid is 2.4. His Chest x-ray shows large 7.7 x 7.8 cm cavitary right midlung lesion with associated right-sided pleural effusion. Subcentimeter left mid lung pulmonary nodules. Patient received 1 L normal saline bolus and Zosyn 4.5 g and Zithromax 500 mg IV and was placed on TB/ respiratory isolation. He has been being in long-term 2 years ago increasing his risk of tuberculosis. CT pulmonary angiogram negative for PE but showed multiple cavitary lesions within both lungs with the largest measuring 9.5 cm in the right upper lobe. Moderate size right pleural effusion. I evaluated the patient in the emergency department. Patient appears critically ill in moderate distress mildly tachypneic, sweating. I performed a bedside ultrasound which showed a right effusion which is large. The thoracentesis was performed and 1 L of cloudy dark pleural fluid was removed. Patient will be continued on Zosyn and Levaquin and vancomycin. ID consulted and I discussed with Dr. Steele-she recommended no empiric treatments for TB. 11/14/16: Patient seen and examined complaints of severe epigastric and periumbilical abdominal pain. Patient remains oriented to person. His white count is slightly improved from 35,000-28,9000. Na improved to 136. I have ordered a STAT CT abd/pelvis with IV contrast. Chest x-ray shows reaccumulation of right pleural effusion-fluid chemistries are pending but cell count indicates at least a parapneumonic effusion and patient will need a pigtail chest tube 11/15: Patient pulled his right-sided pigtail catheter out overnight last night. Currently nasal cannula in no acute distress. Afebrile. Continues to have a leukocytosis. 11/16: Currently on room air. Hold out his IVs reportedly overnight last night. Requesting diet. Awake and alert and following commands. 11/17: Intubated yesterday due to acute hypercapnic respiratory failure. Hypoxic post intubation requiring right chest tube placement, bronchoscopy and Flolan. Bronchoscopy revealed thick mucous plugging at bilateral right and left mainstem which were clear. Improved oxygenation over the past 12 hours. Afebrile. 11/18 Patient remains sedated with Diprivan, Fentanyl and intubated. On Vasopressin and Neosyn 120 mics. 11/19 Patient is sedated with Diprivan, Fentanyl and intubated. Afebrile. Off all pressors. Afebrile. WBC is trending down 30 today from 50. 11/20: Remains severely septic and encephalopathic even though weaned off all pressors. White count still elevated but trending down. Became extremely tachycardic and tachypneic on lowering sedation. We'll check MRI of the brain to rule out embolic infarct. Family at the bedside updated 11/21 Remains heavily sedated, remains encephalopathic. MRI brain is pending. Family is at bedside. Remains critically with resp failure severe from endocarditis, now unable to wean off the ventilator due to severe metabolic encephalopathy 11/22 No events overnight. Sedated with Diprivan, fentanyl and intubated. Afebrile. MRI brain yesterday showed ischemic changes likely related to septic emboli. 11/23: Patient remains encephalopathic, severe hyponatremia possible contributing , Na is 157 today. Currently on Precedex and fentanyl. CXR shows increasing L effusion 11/24: Patient more awake today. Follows Commands but did not tolerate spontaneous breathing trials. Had left pigtail chest tube placed yesterday 1.6 L transudative fluid removal since placement 11/25 Patient is sedated with Diprivan, Fentanyl and intubated. T:99.9 11/26 No events overnight. Sedated and intubated. Patient was on CPAP x 3 hrs yesterday then became tachypneic. 11/27: Resting in bed comfortably on Diprivan at 40 mics grams per kilogram per minute and fentanyl drip at 200 an hour. Tolerated PSV trial 2 hours yesterday before becoming tachypnea. Positive BM via fecal containment device 1100 cc. Yesterday according to RN was following commands. 11/28: Currently afebrile. Tolerating PSV trials 1.5 hours today for became tachypneic. Awake and alert and follows commands. Neurologically intact. Positive BM. 11/29: Tmax 99.6. Status post percutaneous tracheostomy secondary to failed extubation trials. Plan for PEG tube today. Awake and interactive the ventilator on sedation vacation. Subjective 11/30: currently 98.8. Status post percutaneous tracheostomy Dr. Baker yesterday and PEG tube placement by Dr. Figueroa. Tube feeds will be resumed today. Otherwise appears comfortable ventilator. Arousable and follows commands on sedation vacation. 12/01: Patient becomes tachypneic on attempted CPAP, even with high pressure support. I will add by mouth Ativan to reduce IV sedation requirement. Decreasing chest tube output 12/02: Patient failed spontaneous breathing trial clinically today secondary to severe tachypnea and tachycardia. His spiking fever upto 103. Panculture blood , dose of vancomycin given. Most likely patient is getting new sepsis 12/03: Continued to spike fever up to 102. Dose of vancomycin was given yesterday. Patient tolerated CPAP for 3 hours today, remains encephalopathic though. 12/04: Patient more awake alert follows commands, tolerated CPAP but did not tolerate TPs. Abdomen significantly distended, KUB shows ileus. Continues to spike high fever. Diflucan vancomycin added by ID and continue Ancef Objective Vital Signs Date Time Temp Pulse Resp B/P Pulse Ox O2 Delivery O2 Flow Rate FiO2 12/04/16 12:21 99 40 12/04/16 10:00 129 30 162/76 12/04/16 08:00 97.9 12/04/16 07:31 Mechanical Ventilator Intake and Output 12/03/16 12/03/16 12/04/16 08:00 16:00 00:00 Intake Total 1249 ml 1559 ml 1003 ml Output Total 580 ml 1275 ml 1370.0 ml Balance 669 ml 284 ml -367.0 ml Result Diagram: 12/03/16 0456 12/03/16 0456 Other Results Microbiology Date/Time Procedure Status Source Growth 12/02/16 11:50 Gram Stain - Final Complete Sputum Endotracheal 12/02/16 11:50 Sputum Culture - Final Complete Sputum Endotracheal HEAVY GROWTH NORMAL RESPIRATORY [facility] Imaging Last 72 hours Impressions Chest X-Ray 11/29/16 0000 Signed Impressions: Service Date/Time: Friday, November 29, 2016 14:01 - CONCLUSION: 1. Improving aeration of the pulmonary parenchyma. 2. No pneumothorax. Mike Padilla MD Objective Remarks GENERAL: 56-year-old male, critically ill currently on ventilator via tracheostomy, febrile SKIN: Warm and dry. Scattered skin lesions erythematous predominantly left lower extremity HEAD: Normocephalic and atraumatic. EYES: No injection, drainage. Pupils equally round and reactive around 3 mm ENT: No nasal drainage noted. Oropharynx is clear. Orotracheally intubated NECK: Supple. No JVD or thyromegaly or lymphadenopathy. Tracheostomy is clean dry and intact CARDIOVASCULAR: RR. S1, S2. No S4. No murmur not appreciated. RESPIRATORY: Diminished breath sounds bilaterally. Mild expiratory wheezing and few crackles. Right chest tube to suction GASTROINTESTINAL: Abdomen is distended mild tenderness MUSCULOSKELETAL: 1+ pitting edema bilateral lower extremities. Multiple erythematous raised lesions on bilateral lower extremity predominantly left lower leg NEUROLOGICAL: Patient is awake on the ventilator now lower extremities, follows commands with upper extremity Date of Insertion: Nov 16, 2016 Date of Removal: Nov 21, 2016 Line: Central Venous Catheter Side: Left Location: Internal, Jugular A/P Assessment and Plan NEURO/PSYCH: Metabolic encephalopathy Septic brain emboli Precedex and fentanyl for sedation and to facilitate ventilator weaning. Use propofol if needed Ativan 0.5 mg PO p1xnvns. Daily sedation vacation. EEG 11/24: Generalized encephalopathy without any significant epileptic activity. MRI brain 11/21: Ischemic changes throughout white matter likely related to septic emboli. Neuro consulted Dr. Hernandez and has followed intermittently On Thiamine/MVI/Folic acid RESP: Bilateral cavitary lung lesions/most likely cavitating pneumonia from staph aureus Acute respiratory failure Large right loculated pleural effusion/empyema Left pleural effusion Loculated right basilar pneumothorax PRVC 16/600/1.1//40. Tolerated CPAP today but failed TP Continue with vent support keep sat >90%. DuoNebs every 4 hours with albuterol nebs every 2 hours. Vent bundle. Status post tracheostomy by Dr. Baker 11/29 Right-sided chest tube #28 Bhutanese- placed back on suction due to loculated pneumothorax on the right base 12/02 Left-sided chest tube #10 Bhutanese- placed 11/24/16-removed 12/02 - Right thoracentesis with 1 L cloudy yellow fluid removed, fluid cell studies WBC 2,600, - Patient status post pigtail catheter placement 11/14, 445 cc prior pulled out 11/15. Evaluated by Dr. Samuels/CT surgery. Per his recommendations, No indication for decortication at this time CV: Aortic valve endocarditis/large vegetation Sinus tachycardia Atrial fibrillation with RVR early normal sinus rhythm Elevated troponin - likely rate dependent - Stress dose steroids-Hydrocortisone 50mg IV Q12 - 2-D echocardiogram revealed EF 55-60%. Moderate AR. CHANDNI revealed 17 mm x 17 millimeter mobile mass on aortic valve. - limited echo 11/22 Persistent vegetation - CT surgery. Recommendations no intervention at this time GI: Ileus Hypoalbuminemia Moderate protein calorie malnutrition/acute Hold Tube feeds. CT abdomen pelvis STAT IV Protonix for GI prophylaxis. MiraLAX twice a day for bowel regimen Reglan for bowel motility - Prev CT of the abdomen pelvis with IV contrast revealed possible ileus., Gastric contraction at gastric duodenal junction. 2 mm renal cyst. GI is following s/p PEG placement 11/29/16 : Santana catheter has been placed for accurate I's and O's in a critically ill patient ID: Severe sepsis Persistent fever Multilobar cavitating pneumonia secondary staph aureus Staph aureus empyema Aortic valve endocarditis - Continue with abx per ID ( IV Ancef) monitor for signs of infections ( Fever, WBC). Vanc and Diflucan added by ID - Repeat blood urine and sputum culture today 12/02/16 - Gentamicin discontinued 11/26 due to elevated creatinine currently 1.8 Pertinent cultures 11/13 - blood cultures 2 - staph aureus 11/13 and 11/14- pleural fluid- staph aureus 11/14- sputum- staph aureus 11/15 - blood cultures 2 -staph aureus 11/16 - Bronch samples: Staph Aureus 11/16 Sputum: Staph Aureus 11/19 - blood cultures 2 - no growth 11/23 - pleural fluid - no growth 11/24 - blood cultures 2 - no growth 7/10 - UA - negative 11/25 - sputum no growth HEME: Normocytic anemia - Monitor CBC, CMP, coags ENDO: SSI with accuchecks for glycemic control TSH 0.6. FEN: Hyper-magnesium Free water flushes at 250 cc every 8 hours. RENAL: Acute kidney injury Creatinine currently normal Monitor urine output Accurate I's and O's Avoid nephrotoxic drugs Bumex 1 mg 1 for fluid overload PROPH: - Bilateral lower extremity SCDs. Heparin SQ, IV Protonix for prophylaxis LINES: - Left IJ CVL placed 11/16 discontinued. Currently with peripheral IVs Palliative care is following Critical Care: Level 3 Jan Velez MD Dec 04, 2016 14:12
[2016-12-04] MEDS: FLUCONAZOLE 200 MG PREMIX BAG 100 ML IV SCH (14:38)
[2016-12-04] MEDS: PROPOFOL 1000 MG/100 ML INJ 100 ML IV SCH ×3 (14:38→22:10)
--- NOTE | 2016-12-04 14:41 | RADRPT ---
EXAM DATE/TIME: 12/04/2016 13:36 [facility] COMPARISON: Prior study 11/13/2016. INDICATIONS : Distention with pain in upper abdomen for one day. ORAL CONTRAST: No oral contrast ingested. RADIATION DOSE: 16.39 CTDIvol (mGy) MEDICAL HISTORY : None SURGICAL HISTORY : Left tibia surgery., Peg Tube ENCOUNTER: Initial ACUITY: 1 day PAIN SCALE: Non-responsive LOCATION: Bilateral upper quadrant TECHNIQUE: Volumetric scanning of the abdomen and pelvis was performed. Using automated exposure control and ad justment of the mA and/or kV according to patient size, radiation dose was kept as low as reasonably achievable to obtain optimal diagnostic quality images. [facility] and [facility]. FINDINGS: Noncontrast CT scan abdomen and pelvis was performed. There is a large amount of fluid within the st omach. The proximal small bowel is dilated. There is some proximal areas of the jejunum which have some questionable wall thickening. Distal to that, the jejunum is distended with a number of bowel l oops measuring almost 6 cm across. There are some distal loops of small bowel that are not markedly distended. I do not see an obvious transition zone or obvious abnormality within the mesentery. The re is still a normal appearing colon with moderate stool in the right hemicolon. The patient has a G-tube in place. The liver, gallbladder, pancreas, adrenal glands, kidneys and spl een are unremarkable. There is a fair amount of free fluid down both pericolic gutters left greater than right. There are numerous tiny locules of free air throughout the abdomen. The pat does have a G-tube which is new since October and the patient has a right-sided pneumothorax with the right-sided c hest tube. There are bilateral pleural effusions, left greater than right. Heart is enlarged. CONCLUSION: 1. Free air in the abdomen of uncertain etiology. It is unlikely to be related to the pneumothorax. The patient does have a new G-tube. 2. Dilated small bowel proximally although the only real area of wall thickening in the jejunum that I see is proximal to the small bowel distention. The distal small bowel is not nearly as distended b ut I don't see an obvious transition zone. There is a normal amount of stool in the right colon. 3. Right-sided pneumothorax despite the placement of a chest tube anteriorly. Moderate sized left ple ural effusion. 4. The free air was relayed to the nurse practitioner shortly after the completion of the study. Sawyer Robertson MD on December 04, 2016 at 14:03 Board Certified Radiologist. This report was verified electronically.
[2016-12-04] MEDS ORDERED: VANCOMYCIN INJ 1,250 MG in SODIUM CHLOR 0.9% 250 ML INJ 250 ML IV ONE (15:00)
[2016-12-04 17:42] LABS: AUTOMATED NEUTROPHIL # 10.8 TH/MM3 (1.8-7.7); BASOPHIL % 0.2 % (0.0-2.0); EOSINOPHIL % 0.1 % (0.0-4.0); HEMATOCRIT 25.5 % (39.0-51.0); HEMO FLAGS DIFF FINAL; LYMPH % 8.1 % (9.0-44.0); MEAN CELL VOLUME 94.1 FL (80.0-100.0); MEAN CORPUSCULAR HEMOGLOBIN 30.7 PG (27.0-34.0); MEAN CORPUSCULAR HGB CONC 32.6 % (32.0-36.0); MONO % 3.7 % (0.0-8.0); NEUT % 87.9 % (16.0-70.0); PLATELET COUNT 294 TH/MM3 (150-450); RED BLOOD COUNT 2.71 MIL/MM3 (4.50-5.90); RED CELL DISTRIBUTION WIDTH 15.6 % (11.6-17.2); WHITE BLOOD COUNT 12.3 TH/MM3 (4.0-11.0)
--- NOTE | 2016-12-04 18:17 | HHI.PR ---
Subjective Remarks Patient was intubated last night for acute hypoxemic resp failure and a right chest tube was placed for right hydroPTX in addition patient underwent bronch with BAL ( mucous plugs b/l suctioned to clear). MRI brain multifocal area of septic emboli/infarct Sedated with Diprivan and Fentanyl Had Trach and PEG Tolerates TF Tolerated CPAP [address] abd showes free air Surgery consulted Objective Vital Signs Vital Signs Date Time Temp Pulse Resp B/P Pulse Ox O2 Delivery O2 Flow Rate FiO2 12/04/16 18:00 109 12/04/16 16:18 100 40 12/04/16 16:00 99.1 101 21 100/50 99 12/04/16 16:00 101 12/04/16 16:00 40 12/04/16 15:00 104 12/04/16 12:21 99 40 12/04/16 12:00 103.7 129 33 147/65 99 12/04/16 12:00 40 12/04/16 12:00 105 12/04/16 10:00 129 30 162/76 97 12/04/16 10:00 129 12/04/16 09:00 119 27 154/70 100 12/04/16 08:43 99 40 12/04/16 08:00 110 12/04/16 08:00 97.9 110 26 152/70 100 12/04/16 08:00 40 12/04/16 07:31 Mechanical Ventilator 40 12/04/16 07:00 108 21 153/72 100 12/04/16 06:45 98 28 100 12/04/16 06:30 109 18 149/69 100 12/04/16 06:15 109 25 100 12/04/16 06:00 113 12/04/16 06:00 113 20 145/66 100 12/04/16 05:45 113 24 100 12/04/16 05:30 104 28 132/60 100 12/04/16 05:15 108 30 100 12/04/16 05:00 109 28 148/70 91 12/04/16 04:45 110 27 100 12/04/16 04:30 104 23 133/60 100 12/04/16 04:15 100 31 97 12/04/16 04:00 99.2 106 22 131/62 100 12/04/16 04:00 106 25 131/62 100 12/04/16 04:00 106 17 04:00 106 25 131/62 100 19/17 04:00 45 12/04/17 03:45 113 15 100 12/04/17 03:30 121 27 146/81 99 719/17 03:15 120 24 99 1917 03:00 114 21 143/66 100 19/17 02:45 111 23 98 12/04/17 02:30 122 25 167/76 99 17 02:15 108 22 99 12/04/16 02:00 104 12/04/16 02:00 104 15 127/58 97 12/04/17 01:45 110 22 98 12/04/16 01:30 116 24 145/78 98 12/04/17 01:19 100 45 17 01:15 110 27 98 12/04/17 01:00 113 14 132/62 97 17 00:45 114 24 97 12/04/ 00:30 117 20 129/63 97 17 00:15 119 25 97 12/04/16 00:00 108 29 132/78 100 19/17 00:00 108 29 132/78 100 19/17 00:00 45 12/04/16 00:00 99.4 108 25 132/78 100 19/17 00:00 108 18/17 23:45 111 23 100 7/18/17 23:30 110 18 132/75 100 7/18/17 23:15 109 13 100 718/17 23:00 110 15 130/74 100 7/18/17 22:45 108 19 100 7/18/17 22:30 99 23 123/59 99 7/18/17 22:15 107 4 99 7/18/17 22:00 99.9 7/18/17 22:00 112 20 133/62 100 7/18/17 22:00 112 7/18/17 21:45 114 25 100 7/18/17 21:30 115 22 138/65 100 7/18/17 21:15 114 24 100 7/18/17 21:00 106 6 125/60 98 7/18/17 20:45 105 26 98 7/18/17 20:30 118 24 140/73 100 7/18/17 20:25 100 45 7/18/17 20:15 116 21 100 12/03/16 20:00 116 28 140/68 100 12/03/16 20:00 102.9 116 26 140/68 100 12/03/16 20:00 45 12/03/16 20:00 116 12/03/16 20:00 100 Mechanical Ventilator 45 I/O 12/03/16 12/03/16 12/03/16 12/04/16 12/04/16 12/04/16 07:00 15:00 23:00 07:00 15:00 23:00 Intake Total 1249 ml 1559 ml 1003 ml 1171 ml 1031 ml Output Total 580 ml 1275 ml 1370 ml 1690 ml 1610 ml Balance 669 ml 284 ml -367 ml -519 ml -579 ml IV Total 481 ml 758 ml 272 ml 330 ml 456 ml Tube Feeding 458 ml 451 ml 421 ml 531 ml 225 ml Tube Irrigant 100 ml 100 ml Other 310 ml 250 ml 310 ml 310 ml 250 ml Output Urine Total 400 ml 475 ml 450 ml 550 ml 1100 ml Stool Total 180 ml 800 ml 920 ml 1020 ml 400 ml Tube Feeding Residual Discard 0 ml 0 ml 0 ml Chest Tube Drainage Total 0 ml 0 ml 120 ml 110 ml Result Diagram: 12/04/16 1657 12/03/16 0456 Objective Remarks GENERAL: Patient is 56 yo critically ill intubated , sedated and on pressors. SKIN: Warm and dry. HEAD: Normocephalic. EYES: No scleral icterus. No injection or drainage. NECK: Supple, trachea midline. No JVD or lymphadenopathy. CARDIOVASCULAR: Regular rate and rhythm without murmurs, gallops, or rubs. RESPIRATORY: Breath sounds equal bilaterally. No accessory muscle use. GASTROINTESTINAL: Abdomen soft, non-tender, nondistended. MUSCULOSKELETAL: No cyanosis, or edema. Neuro: Sedated and intubated A/P Assessment and Plan 1VDRF 2)Septic shock 3)Staph Aureus bacteremia 4)Empyema 6)Endocarditis involving AV 7)Leucocytosis 8)Cavitary pulm masses 2nd staph Aureus 9)Right hydroPTX PLAN: Continue with vent support keep sat >92% Bronchodilators, ICU vent bundle, on stress dose steroids- HC 100mg IV Q8 On PRVC/AC , 35% Abx per ID Chest tube to suction Sedation with Diprivan and fentanyl CPAP trial in AM. Surgery consulted Emmett Bolton MD Dec 04, 2016 18:17
[2016-12-05] VITALS (47 sets, daily range): BP systolic 94–124; BP diastolic 48–59; PULSE 101–117; RESP 21–29; TEMP 98.8–101.2; O2SAT 90–100
[2016-12-05] MEDS: RESP: ALBUTEROL 2.5 MG/IPRATROPIUM 0.5 MG NEB (SCH) NEB ×6 (00:28→20:22)
[2016-12-05] MEDS: ceFAZolin 2 GM PREMIX 50 ML IV SCH ×3 (01:18→16:13)
[2016-12-05] MEDS: PROPOFOL 1000 MG/100 ML INJ 100 ML IV SCH ×5 (02:18→22:19)
[2016-12-05] MEDS: CHLORHEXIDINE GLUCONATE 2 % 1 PACK (2 CLOTHS) TOP SCH (04:00)
[2016-12-05] MEDS: INSULIN ASPART SUPPLEMENTAL SCALE SQ SCH ×4 (05:00→22:28)
[2016-12-05] MEDS: FREE WATER G-TUBE SCH ×3 (05:01→22:00)
[2016-12-05] MEDS: ARTIFICIAL TEARS OPTH SOLN 15 ML BTL EACH EYE SCH ×3 (05:02→22:21)
[2016-12-05] MEDS: METOCLOPRAMIDE HCL 10 MG/2 ML VIAL IV SCH ×3 (05:02→22:19)
[2016-12-05] MEDS: LORazepam 0.5 MG TAB PO SCH ×2 (05:02→17:31)
--- NOTE | 2016-12-05 05:15 | RADRPT ---
EXAM DATE/TIME: 12/05/2016 03:49 [facility] COMPARISON: CHEST SINGLE AP, December 04, 2016, 7:39. INDICATIONS : Respiratory disease. MEDICAL HISTORY : Sepsis. Cavitary mass. SURGICAL HISTORY : None. ENCOUNTER: Subsequent ACUITY: 2 weeks PAIN SCORE: Non-responsive. LOCATION: Bilateral chest FINDINGS: The tracheostomy tube and right-sided central line remain in place. There is no definite pneumothorax . There continue to be bilateral scattered pulmonary infiltrates which are stable compared to the rah or study. The heart size is stable. CONCLUSION: 1. No evidence of pneumothorax. 2. No significant change in the bilateral scattered pulmonary infiltrates. Kulwinder Hernandez MD on December 05, 2016 at 5:13 Board Certified Radiologist. This report was verified electronically.
[2016-12-05 06:09] LABS: AUTOMATED NEUTROPHIL # 11.5 TH/MM3 (1.8-7.7); BASOPHIL # 0.1 TH/MM3 (0-0.2); BASOPHIL % 0.6 % (0.0-2.0); HEMATOCRIT 25.5 % (39.0-51.0); HEMO FLAGS DIFF FINAL; LYMPH % 8.1 % (9.0-44.0); LYMPHOCYTE # 1.1 TH/MM3 (1.0-4.8); MEAN CELL VOLUME 93.8 FL (80.0-100.0); MEAN CORPUSCULAR HEMOGLOBIN 30.9 PG (27.0-34.0); MEAN CORPUSCULAR HGB CONC 32.9 % (32.0-36.0); MONO % 3.9 % (0.0-8.0); NEUT % 87.4 % (16.0-70.0); PLATELET COUNT 301 TH/MM3 (150-450); RED BLOOD COUNT 2.72 MIL/MM3 (4.50-5.90); RED CELL DISTRIBUTION WIDTH 15.3 % (11.6-17.2); WHITE BLOOD COUNT 13.2 TH/MM3 (4.0-11.0)
[2016-12-05 06:27] LABS: ANION GAP 10 MEQ/L (5-15); AST (GOT) 11 U/L (15-37); BICARBONATE 24.7 MEQ/L (21.0-32.0); BLOOD UREA NITROGEN 48 MG/DL (7-18); CHLORIDE 110 MEQ/L (98-107); GLOMERULAR FILTRATION RATE 52 ML/MIN (>89); POTASSIUM 3.5 MEQ/L (3.5-5.1); SODIUM (NA) 145 MEQ/L (136-145)
[2016-12-05 06:29] LABS: ALT (GPT) LESS THAN 6 U/L (12-78)
[2016-12-05 06:31] LABS: ALKALINE PHOSPHATASE 70 U/L (45-117); TOTAL BILIRUBIN ADULT 0.9 MG/DL (0.2-1.0)
--- NOTE | 2016-12-05 07:27 | MB ---
cc: ALEX ESTRELLA MD DATE OF CONSULTATION 12/04/2016 REASON FOR CONSULTATION Free intraperitoneal air, ileus. HISTORY OF PRESENT ILLNESS The patient is a 56-year-old male who has multiple medical issues who initially presented to the emergency department on November 13 with weakness, confusion, shortness of breath. He was intubated and found to have basically sepsis and multiple bilateral cavitary lesion necessitating several chest tube placements. He has been on prolonged ventilation. He underwent tracheostomy and underwent PEG tube placement five days ago. The patient has been in the ICU, initially with extremely high leukocytosis greater than 39,000 which has been trending down. The patient has been on multiple antibiotics as he is noted to have septic pulmonary emboli along with yeast in his urine and several other infectious etiologies. The patient was noted to have severe distension that progressively got worse over the past couple of days. The patient is noted to have increase in grimacing with palpation. He again had undergone tracheostomy and a recent PEG tube placement. He underwent labs with one temperature of 103 spike and WBC of [address] scan showing significantly dilated stomach, small bowel, some anasarca, intraperitoneal fluid and evidence of multiple small dots of free intraperitoneal. Surgery was consulted for further evaluation. On my exam the patient is noted to be on the vent with tracheostomy. He internally follows commands. He is currently sedated on propofol and fentanyl and has some significant distension and tympanitic abdomen. The patient is making adequate good urine. He is off any vasopressor medications and having bowel movements. PAST MEDICAL HISTORY This was obtained per the chart and none reported. PAST SURGICAL HISTORY None. MEDICATIONS See EMR. ALLERGIES No known drug allergies. FAMILY HISTORY Noncontributory. SOCIAL HISTORY No current EtOH, IVDA or smoking. REVIEW OF SYSTEMS GENERAL: Unable to obtain. HEENT: Unable to obtain. Neck: Unable to obtain. Trache. LUNGS: Unable to obtain. Cavitary lesions. Chest tube. CARDIAC: Unable to obtain. Vegetations, endocarditis. ABDOMEN: Unable to obtain. However, distended, tender. EXTREMITIES: Unable to obtain. : Unable to obtain. ENDOCRINE: Unable to obtain. INTEGUMEN: Unable to obtain. PHYSICAL EXAMINATION VITAL SIGNS: Temperature 99.4, pulse 105, blood pressure 102/50, saturation 97% on 40 FIO2. GENERAL: The patient in mild distress, sitting on ventilator via trache. HEENT: Pupils equal, round. NECK: Supple. Trachea in place, clean, dry and intact. LUNGS: Bilateral expansion. Coarse. Chest tube in place. Decreased breath sounds bilateral basilar. HEART: S1-S2. ABDOMEN: Distended left-sided positive tenderness to palpation. No rigidity. No guarding. EXTREMITIES: Warm, perfused. PSYCH: Unable to obtain. NEUROLOGIC: Unable to do a full neurologic assessment. Moving extremities. LABORATORY AND DIAGNOSTIC DATA WBC 12.3, hemoglobin 8.3, hematocrit 25.5, platelets are 294. Sodium 147, potassium 3.6, chloride 111, BUN 43, creatinine 1.2, glucose 63, AST 10, ALT 6, albumin 1.3. Coagulation - INR is 1.4, PT 50.4, PTT 28. IMAGING STUDIES CT reviewed by myself. Free air. G-tube placement note, distended stomach and small bowel. No obvious transition. Stool in colon. Right-sided pneumo, anterior. Pleural effusion on the left. ASSESSMENT The patient is a 56-year-old male who presented in acute respiratory failure, feeding difficulties, status post recent PEG placement, septic pulmonary emboli, cavitary lesions, endocarditis, urinary tract infection. PLAN After a full clinical, radiologic and laboratory workup the patient with above-named issues including free intraperitoneal air. At this point the patient does have a leukocytosis. However, pressure appears stable. He is making adequate urine output. He is significantly distended with distended dilated loops of bowel and some anasarca and intraperitoneal fluid. Free intraperitoneal fluid likely due to recent PEG replacement. I do not see any solid evidence for bowel perforation or bowel necrosis. He does have severe ileus with dilated bowel. This could be somewhat normal variant following insufflation from endoscopy and PEG placement. At this time recommend serial abdominal exams and continue to observe the patient. We will consider repeat CT scan for reassessment in 24-48 hours. We will also follow the patient's clinical course to observe for increasing leukocytosis and decreasing and deteriorating clinical status. If the patient does deteriorate or require significant vasopressor source or if there is any increased intraperitoneal air on followup radiologic studies, we will proceed with operative intervention. However, at this point, currently recommend IV antibiotics, abdominal exams and nonoperative management. This was discussed with staff. Thank you for the consultation. MD SNOW Chicas/KUSHAL /11:18 PM /7:14 AM
[2016-12-05] MEDS: HYDROCORTISONE SOD SUCCINATE 100 MG VIAL IV PUSH SCH ×2 (08:54→20:12)
[2016-12-05] MEDS: LACTULOSE SYRUP 20 GM/30 ML CUP PO SCH (08:54)
[2016-12-05] MEDS: POTASSIUM CHLOR 20 MEQ PREMIX 100 ML IV PRN ×2 (08:54→11:23)
[2016-12-05] MEDS: PANTOPRAZOLE SODIUM 40 MG VIAL IV SCH ×2 (08:54→20:12)
[2016-12-05] MEDS: FOLIC ACID 1 MG TAB PO SCH (08:55)
[2016-12-05] MEDS: SODIUM CHLORIDE 0.9% FLUSH 10 ML FLUSH IV FLUSH SCH ×2 (08:55→20:13)
[2016-12-05] MEDS: MULTIVITAMIN TAB PO SCH (08:55)
[2016-12-05] MEDS: POLYETHYLENE GLYCOL 17 GM PKG PO SCH ×2 (08:55→20:12)
[2016-12-05] MEDS: HEPARIN SODIUM - SQ 10,000 UNITS/ML VIAL SQ SCH ×2 (08:55→20:12)
[2016-12-05] MEDS: SODIUM CHLORIDE 0.9% FLUSH 10 ML FLUSH IVF SCH (08:56)
[2016-12-05] MEDS: THIAMINE INJ 100 MG in SODIUM CHLORIDE 0.9% INJ 100 ML IV SCH (08:57)
[2016-12-05] MEDS: CHLORHEXIDINE 0.12% (ORAL KIT) 15 ML CUP MT SCH ×2 (09:06→20:15)
[2016-12-05] MEDS: PIPERACIL-TAZO 3.375 GM PREMIX 50 ML IV SCH ×3 (11:23→22:19)
[2016-12-05] MEDS: FLUCONAZOLE 200 MG PREMIX BAG 100 ML IV SCH (13:39)
--- NOTE | 2016-12-05 15:15 | HHI.PR ---
Subjective Remarks Patient was intubated last night for acute hypoxemic resp failure and a right chest tube was placed for right hydroPTX in addition patient underwent bronch with BAL ( mucous plugs b/l suctioned to clear). MRI brain multifocal area of septic emboli/infarct Sedated with Diprivan and Fentanyl Had Trach and PEG Tolerates TF Tolerated CPAP 3 hrs Abd less distended Objective Vital Signs Vital Signs Date Time Temp Pulse Resp B/P Pulse Ox O2 Delivery O2 Flow Rate FiO2 12/05/16 13:15 98 50 12/05/16 12:00 50 12/05/16 12:00 99.9 12/05/16 12:00 99.9 113 24 124/59 99 12/05/16 12:00 113 12/05/16 10:14 98 50 12/05/16 10:00 107 12/05/16 09:30 50 12/05/16 09:00 97 Mechanical Ventilator 50 12/05/16 08:00 104 12/05/16 08:00 40 12/05/16 08:00 99.5 104 24 102/51 92 12/05/16 07:52 93 40 12/05/16 07:00 91 Mechanical Ventilator 40 12/05/16 06:00 112 12/05/16 04:29 100 40 12/05/16 04:00 107 12/05/16 04:00 100.8 107 25 102/50 100 12/05/16 04:00 40 12/05/16 02:00 112 12/05/16 00:29 99 40 12/05/16 00:00 40 12/05/16 00:00 101.2 105 25 95/48 98 12/05/16 00:00 105 12/04/16 22:00 111 12/04/16 21:06 98 40 12/04/16 20:00 99.4 105 24 102/50 97 12/04/16 20:00 40 12/04/16 20:00 105 12/04/16 19:00 97 Mechanical Ventilator 40 12/04/16 18:00 109 12/04/16 16:18 100 40 12/04/16 16:10 100 100 12/04/16 16:00 99.1 101 21 100/50 99 12/04/16 16:00 101 12/04/16 16:00 40 I/O 7/1912/04/16 12/04/16 12/05/16 12/05/16 12/05/16 07:00 15:00 23:00 07:00 15:00 23:00 Intake Total 1171 ml 1031 ml 697 ml 344 ml 1263 ml Output Total 1690 ml 1610 ml 1010 ml 550 ml 525 ml Balance -519 ml -579 ml -313 ml -206 ml 738 ml IV Total 330 ml 456 ml 697 ml 344 ml 1013 ml Tube Feeding 531 ml 225 ml 0 ml 0 ml Tube Irrigant 100 ml Other 310 ml 250 ml 250 ml Output Urine Total 550 ml 1100 ml 250 ml 250 ml 225 ml Stool Total 1020 ml 400 ml 50 ml 50 ml 100 ml Gastric Drainage Total 700 ml 250 ml 200 ml Tube Feeding Residual Discard 0 ml Chest Tube Drainage Total 120 ml 110 ml 10 ml 0 ml Result Diagram: 12/05/16 0504 12/05/16 050 Objective Remarks GENERAL: Patient is 56 yo critically ill intubated , sedated and on pressors. SKIN: Warm and dry. HEAD: Normocephalic. EYES: No scleral icterus. No injection or drainage. NECK: Supple, trachea midline. No JVD or lymphadenopathy. CARDIOVASCULAR: Regular rate and rhythm without murmurs, gallops, or rubs. RESPIRATORY: Breath sounds equal bilaterally. No accessory muscle use. GASTROINTESTINAL: Abdomen soft, non-tender, nondistended. MUSCULOSKELETAL: No cyanosis, or edema. Neuro: Sedated and intubated A/P Assessment and Plan 1VDRF 2)Septic shock 3)Staph Aureus bacteremia 4)Empyema 6)Endocarditis involving AV 7)Leucocytosis 8)Cavitary pulm masses 2nd staph Aureus 9)Right hydroPTX PLAN: Continue with vent support keep sat >92% Bronchodilators, ICU vent bundle, on stress dose steroids- HC 100mg IV Q8 On PRVC/AC , 35% Abx per ID Chest tube to suction Sedation with Diprivan and fentanyl CPAP trial in AM. PEG tube to suction. Emmett Bolton MD Dec 05, 2016 15:15
--- NOTE | 2016-12-05 15:57 | HHI.IDPN ---
Note Infectious Disease Note On the vent. Sedated. Temp elevated. Follows commands when sedation is weaned. Ileus noted on CT scan. D/W RN. Large vegetation on AV and moderate aortic regurg on CHANDNI. Culture of blood 11/13, 11/15, 11/16. - Staph aureus. 11/19 no growth. Culture of pleural fluid 11/14 - staph aureus. ALLERGIES NO KNOWN DRUG ALLERGIES. ANTIBIOTICS: Ancef. Pip/Tazo. Diflucan. OBJECTIVE: Vital Signs Date Time Temp Pulse Resp B/P Pulse Ox O2 Delivery O2 Flow Rate FiO2 12/05/16 14:00 107 12/05/16 13:15 98 50 12/05/16 12:00 50 12/05/16 12:00 99.9 12/05/16 12:00 99.9 113 24 124/59 99 12/05/16 12:00 113 12/05/16 10:14 98 50 12/05/16 10:00 107 12/05/16 09:30 50 12/05/16 09:00 97 Mechanical Ventilator 50 12/05/16 08:00 104 12/05/16 08:00 40 12/05/16 08:00 99.5 104 24 102/51 92 12/05/16 07:52 93 40 12/05/16 07:00 91 Mechanical Ventilator 40 12/05/16 06:00 112 12/05/16 04:29 100 40 12/05/16 04:00 107 12/05/16 04:00 100.8 107 25 102/50 100 12/05/16 04:00 40 12/05/16 02:00 112 12/05/16 00:29 99 40 12/05/16 00:00 40 12/05/16 00:00 101.2 105 25 95/48 98 12/05/16 00:00 105 12/04/16 22:00 111 12/04/16 21:06 98 40 12/04/16 20:00 99.4 105 24 102/50 97 12/04/16 20:00 40 12/04/16 20:00 105 12/04/16 19:00 97 Mechanical Ventilator 40 12/04/16 18:00 109 12/04/16 16:18 100 40 12/04/16 16:10 100 100 12/04/16 16:00 99.1 101 21 100/50 99 12/04/16 16:00 101 12/04/16 16:00 40 12/04/16 12/04/16 12/05/16 15:00 23:00 07:00 Intake Total 1031 ml 697 ml 344 ml Output Total 1610 ml 1010 ml 550 ml Balance -579 ml -313 ml -206 ml IV Total 456 ml 697 ml 344 ml Tube Feeding 225 ml 0 ml 0 ml Tube Irrigant 100 ml Other 250 ml Output Urine Total 1100 ml 250 ml 250 ml Stool Total 400 ml 50 ml 50 ml Gastric Drainage Total 700 ml 250 ml Chest Tube Drainage Total 110 ml 10 ml 0 ml Laboratory Tests Test 12/04/16 12/05/16 16:57 05:04 White Blood Count 12.3 TH/MM3 13.2 TH/MM3 Red Blood Count 2.71 MIL/MM3 2.72 MIL/MM3 Hemoglobin 8.3 GM/DL 8.4 GM/DL Hematocrit 25.5 % 25.5 % Mean Corpuscular Volume 94.1 FL 93.8 FL Mean Corpuscular Hemoglobin 30.7 PG 30.9 PG Mean Corpuscular Hemoglobin 32.6 % 32.9 % Concent Red Cell Distribution Width 15.6 % 15.3 % Platelet Count 294 TH/MM3 301 TH/MM3 Mean Platelet Volume 7.5 FL 7.7 FL Neutrophils (%) (Auto) 87.9 % 87.4 % Lymphocytes (%) (Auto) 8.1 % 8.1 % Monocytes (%) (Auto) 3.7 % 3.9 % Eosinophils (%) (Auto) 0.1 % 0.0 % Basophils (%) (Auto) 0.2 % 0.6 % Neutrophils # (Auto) 10.8 TH/MM3 11.5 TH/MM3 Lymphocytes # (Auto) 1.0 TH/MM3 1.1 TH/MM3 Monocytes # (Auto) 0.5 TH/MM3 0.5 TH/MM3 Eosinophils # (Auto) 0.0 TH/MM3 0.0 TH/MM3 Basophils # (Auto) 0.0 TH/MM3 0.1 TH/MM3 CBC Comment DIFF FINAL DIFF FINAL Differential Comment Laboratory Tests Test 12/04/16 12/05/16 17:18 05:04 Lactic Acid Level 1.0 mmol/L Sodium Level 145 MEQ/L Potassium Level 3.5 MEQ/L Chloride Level 110 MEQ/L Carbon Dioxide Level 24.7 MEQ/L Anion Gap 10 MEQ/L Blood Urea Nitrogen 48 MG/DL Creatinine 1.41 MG/DL Estimat Glomerular Filtration 52 ML/MIN Rate Random Glucose 86 MG/DL Calcium Level 8.0 MG/DL Magnesium Level 2.0 MG/DL Total Bilirubin 0.9 MG/DL Aspartate Amino Transf 11 U/L (AST/SGOT) Alanine Aminotransferase LESS THAN 6 U/L (ALT/SGPT) Alkaline Phosphatase 70 U/L Total Protein 5.7 GM/DL Albumin 1.1 GM/DL Microbiology Date/Time Procedure Status Source Growth 12/02/16 20:15 Urine Culture - Final Complete Urine Catheterized Urine Marquita Tropicalis PHYSICAL EXAMINATION GENERAL: On the vent. Sedated. HEENT: No icterus. Oropharynx: No lesions. NECK: Supple without adenopathy. LUNGS: Bilateral rhonchi. HEART: Normal S1-S2 with 2/6 IRMA at LSB. ABDOMEN: Distended. Bowel sounds not audible. EXTREMITIES: No clubbing or cyanosis or edema. SKIN: No rash. NEURO: Sedated. Calm. PSYCH: unable to assess. IMPRESSION 1. Endocarditis Aortic valve Staph aureus (MSSA). 2. Cavitary pulmonary lesions. Embolic./ PRODUCT MARKETING ANALYST ischemic lesions suggesting embolic lesions. 3. Pneumonia/parapneumonic effusion- MSSA. 4. Skin lesions which potentially could be embolic. 5. Leukocytosis secondary to infection. WBC improved. Now normal. 6. Fever secondary to infection. Improved. 7. Vent dependent respiratory failure. 8. Recurrent high spiking fever. New sepsis. 9. Ileus. RECOMMENDATIONS 1. Continue IV Ancef. 2. Continue Fluconazole. 3. Continue Piperacillin/ Tazobactam. 4. Monitor temperature. 5. Vanco level noted. Hold off on vancomycin. re dose if he still has high fever. Slava Garcia MD Dec 05, 2016 15:56
[2016-12-05] MEDS: fentaNYL DRIP 250 ML IV SCH (16:14)
[2016-12-05] MEDS ORDERED: DIATRIZOATE MEGLUM/DIATRIZOATE SOD 9 ML CUP PO ONE (16:15)
--- NOTE | 2016-12-05 16:35 | RADRPT ---
EXAM DATE/TIME: 12/05/2016 15:41 [place] COMPARISON: No previous studies available for comparison. INDICATIONS : Ileus MEDICAL HISTORY : None. SURGICAL HISTORY : peg tube ENCOUNTER: Initial ACUITY: 3 weeks PAIN SCORE: Non-responsive. LOCATION: Bilateral abdomen FINDINGS: Supine view of the abdomen was performed. The abdominal bowel gas pattern is normal. No abnormal ma sses, calcifications, or organomegaly is seen. The osseous structures are unremarkable. CONCLUSION: Normal examination. G-tube overlies the upper abdomen. Sawyer Robertson MD on December 05, 2016 at 16:32 Board Certified Radiologist. This report was verified electronically.
--- NOTE | 2016-12-05 16:48 | HHI.CCPN ---
Subjective Remarks/Hospital Course 56-year-old male is brought to the emergency department by EMS for evaluation of generalized weakness, confusion for about 2 weeks, and also increasing shortness of breath. His oxygen saturation was 88% on room air. EMS administered breathing treatments and Solu-Medrol 125 mg 1 and placed him on nasal cannula. Patient states that he had been sick for almost 10 days, but he is a poor historian. He had a productive cough, but reports no hematemesis or weight loss. He states that it was his neighbor who made him called EMS. He has no past medical history and last time had seen a doctor was about 15 years ago. He denies any fevers but reports some night sweats and chills. He was tachycardic with a heart rate of 115 bpm, had severe leukocytosis with a white count of 35,000 with 91% neutrophils. CMP shows hyponatremia with a sodium of 126. Lactic acid is 2.4. His Chest x-ray shows large 7.7 x 7.8 cm cavitary right midlung lesion with associated right-sided pleural effusion. Subcentimeter left mid lung pulmonary nodules. Patient received 1 L normal saline bolus and Zosyn 4.5 g and Zithromax 500 mg IV and was placed on TB/ respiratory isolation. He has been being in senior care 2 years ago increasing his risk of tuberculosis. CT pulmonary angiogram negative for PE but showed multiple cavitary lesions within both lungs with the largest measuring 9.5 cm in the right upper lobe. Moderate size right pleural effusion. I evaluated the patient in the emergency department. Patient appears critically ill in moderate distress mildly tachypneic, sweating. I performed a bedside ultrasound which showed a right effusion which is large. The thoracentesis was performed and 1 L of cloudy dark pleural fluid was removed. Patient will be continued on Zosyn and Levaquin and vancomycin. ID consulted and I discussed with Dr. Steele-she recommended no empiric treatments for TB. 11/14/16: Patient seen and examined complaints of severe epigastric and periumbilical abdominal pain. Patient remains oriented to person. His white count is slightly improved from 35,000-28,9000. Na improved to 136. I have ordered a STAT CT abd/pelvis with IV contrast. Chest x-ray shows reaccumulation of right pleural effusion-fluid chemistries are pending but cell count indicates at least a parapneumonic effusion and patient will need a pigtail chest tube 11/15: Patient pulled his right-sided pigtail catheter out overnight last night. Currently nasal cannula in no acute distress. Afebrile. Continues to have a leukocytosis. 11/16: Currently on room air. Hold out his IVs reportedly overnight last night. Requesting diet. Awake and alert and following commands. 11/17: Intubated yesterday due to acute hypercapnic respiratory failure. Hypoxic post intubation requiring right chest tube placement, bronchoscopy and Flolan. Bronchoscopy revealed thick mucous plugging at bilateral right and left mainstem which were clear. Improved oxygenation over the past 12 hours. Afebrile. 11/18 Patient remains sedated with Diprivan, Fentanyl and intubated. On Vasopressin and Neosyn 120 mics. 11/19 Patient is sedated with Diprivan, Fentanyl and intubated. Afebrile. Off all pressors. Afebrile. WBC is trending down 30 today from 50. 11/20: Remains severely septic and encephalopathic even though weaned off all pressors. White count still elevated but trending down. Became extremely tachycardic and tachypneic on lowering sedation. We'll check MRI of the brain to rule out embolic infarct. Family at the bedside updated 11/21 Remains heavily sedated, remains encephalopathic. MRI brain is pending. Family is at bedside. Remains critically with resp failure severe from endocarditis, now unable to wean off the ventilator due to severe metabolic encephalopathy 11/22 No events overnight. Sedated with Diprivan, fentanyl and intubated. Afebrile. MRI brain yesterday showed ischemic changes likely related to septic emboli. 11/23: Patient remains encephalopathic, severe hyponatremia possible contributing , Na is 157 today. Currently on Precedex and fentanyl. CXR shows increasing L effusion 11/24: Patient more awake today. Follows Commands but did not tolerate spontaneous breathing trials. Had left pigtail chest tube placed yesterday 1.6 L transudative fluid removal since placement 11/25 Patient is sedated with Diprivan, Fentanyl and intubated. T:99.9 11/26 No events overnight. Sedated and intubated. Patient was on CPAP x 3 hrs yesterday then became tachypneic. 11/27: Resting in bed comfortably on Diprivan at 40 mics grams per kilogram per minute and fentanyl drip at 200 an hour. Tolerated PSV trial 2 hours yesterday before becoming tachypnea. Positive BM via fecal containment device 1100 cc. Yesterday according to RN was following commands. 11/28: Currently afebrile. Tolerating PSV trials 1.5 hours today for became tachypneic. Awake and alert and follows commands. Neurologically intact. Positive BM. 11/29: Tmax 99.6. Status post percutaneous tracheostomy secondary to failed extubation trials. Plan for PEG tube today. Awake and interactive the ventilator on sedation vacation. Subjective 11/30: DrAzael currently 98.8. Status post percutaneous tracheostomy Dr. Baker yesterday and PEG tube placement by Dr. Figueroa. Tube feeds will be resumed today. Otherwise appears comfortable ventilator. Arousable and follows commands on sedation vacation. 12/01: Patient becomes tachypneic on attempted CPAP, even with high pressure support. I will add by mouth Ativan to reduce IV sedation requirement. Decreasing chest tube output 12/02: Patient failed spontaneous breathing trial clinically today secondary to severe tachypnea and tachycardia. His spiking fever upto 103. Panculture blood , dose of vancomycin given. Most likely patient is getting new sepsis 12/03: Continued to spike fever up to 102. Dose of vancomycin was given yesterday. Patient tolerated CPAP for 3 hours today, remains encephalopathic though. 12/04: Patient more awake alert follows commands, tolerated CPAP but did not tolerate TPs. Abdomen significantly distended, KUB shows ileus. Continues to spike high fever. Diflucan vancomycin added by ID and continue Ancef 12/05: Abdomen remains distended, CT yesterday show intra abdominal free air. Unclear whether related to PEG or perforation. D/W with Dr. Baker, will get repeat CT with oral contrast today. Zosyn added by ID Objective Vital Signs Date Time Temp Pulse Resp B/P Pulse Ox O2 Delivery O2 Flow Rate FiO2 12/05/16 16:19 98 50 12/05/16 14:00 107 12/05/16 12:00 99.9 12/05/16 12:00 24 124/59 12/05/16 09:00 Mechanical Ventilator Intake and Output 12/04/16 12/04/16 12/05/16 08:00 16:00 00:00 Intake Total 1171 ml 1031 ml 697 ml Output Total 1690 ml 1610 ml 1010 ml Balance -519 ml -579 ml -313 ml Result Diagram: 12/05/16 0504 12/05/16 0504 Other Results Microbiology Date/Time Procedure Status Source Growth 12/02/16 20:15 Urine Culture - Final Complete Urine Catheterized Urine Marquita Tropicalis Imaging Last 72 hours Impressions Chest X-Ray 11/29/16 0000 Signed Impressions: Service Date/Time: Tuesday, November 29, 2016 14:01 - CONCLUSION: 1. Improving aeration of the pulmonary parenchyma. 2. No pneumothorax. Mike Padilla MD Objective Remarks GENERAL: 56-year-old male, critically ill currently on ventilator via tracheostomy, febrile SKIN: Warm and dry. Scattered skin lesions erythematous predominantly left lower extremity HEAD: Normocephalic and atraumatic. EYES: No injection, drainage. Pupils equally round and reactive around 3 mm ENT: No nasal drainage noted. Oropharynx is clear. Orotracheally intubated NECK: Supple. No JVD or thyromegaly or lymphadenopathy. Tracheostomy is clean dry and intact CARDIOVASCULAR: RR. S1, S2. No S4. No murmur not appreciated. RESPIRATORY: Diminished breath sounds bilaterally. Mild expiratory wheezing and few crackles. Right chest tube to suction GASTROINTESTINAL: Abdomen is distended, tender, tympanic, no guarding MUSCULOSKELETAL: 1+ pitting edema bilateral lower extremities. Multiple erythematous raised lesions on bilateral lower extremity predominantly left lower leg NEUROLOGICAL: Patient is awake on the ventilator but more encephalopathic and not following commands today Date of Insertion: Nov 16, 2016 Date of Removal: Nov 21, 2016 Line: Central Venous Catheter Side: Left Location: Internal, Jugular A/P Assessment and Plan NEURO/PSYCH: Metabolic encephalopathy Septic brain emboli Propofol and fentanyl for sedation and vent synchrony Ativan 0.5 mg PO [id number]. Daily sedation vacation. EEG 11/24: Generalized encephalopathy without any significant epileptic activity. MRI brain 11/21: Ischemic changes throughout white matter likely related to septic emboli. Neuro Dr. Hernandez and has followed intermittently On Thiamine/MVI/Folic acid RESP: Bilateral cavitary lung lesions/most likely cavitating pneumonia from staph aureus Acute respiratory failure Large right loculated pleural effusion/empyema Left pleural effusion Anterior pneumothorax PRVC 16/600/1.1/5/40. Tolerated CPAP yesterday, more lethargic today to attempt CPAP Continue with vent support keep sat >90%. DuoNebs every 4 hours with albuterol nebs every 2 hours. Vent bundle. Status post tracheostomy by Dr. Baker 11/29 Right-sided chest tube #28 Romansh- placed back on suction due to pneumothorax on right 12/02 Left-sided chest tube #10 Romansh- placed 11/24/16-removed 12/02 Right thoracentesis with 1 L cloudy yellow fluid removed, fluid cell studies WBC 2,600, Patient status post pigtail catheter placement 11/14, 445 cc prior pulled out . Evaluated by Dr. Samuels/CT surgery. Per his recommendations, No indication for decortication at this time CV: Aortic valve endocarditis/large vegetation Sinus tachycardia Atrial fibrillation with RVR early normal sinus rhythm Elevated troponin - likely rate dependent - Hydrocortisone 50mg IV [id number] to 25 q12 and stop in 3 days - 2-D echocardiogram revealed EF 55-60%. Moderate AR. CHANDNI revealed 17 mm x 17 millimeter mobile mass on aortic valve. - limited echo 11/22 Persistent vegetation - CT surgery. Recommendations no intervention at this time GI: Intra peritoneal free air. (Related to PEG or perforation). Ileus Hypoalbuminemia Moderate protein calorie malnutrition/acute CT yesterday show intra peritoneal free air. Unclear whether related to PEG or perforation. Hold Tube feeds. D/W Dr. Baker, repeat CT abdomen pelvis STAT with oral contrast IV Protonix for GI prophylaxis. MiraLAX twice a day for bowel regimen Reglan for bowel motility Prev CT of the abdomen pelvis with IV contrast revealed possible ileus., Gastric contraction at gastric duodenal junction. 2 mm renal cyst. GI is following; s/p PEG placement 11/29/16 : Asntana catheter has been placed for accurate I's and O's in a critically ill patient ID: Severe sepsis Persistent fever Multilobar cavitating pneumonia secondary staph aureus Staph aureus empyema Aortic valve endocarditis - Continue with abx per ID ( IV Ancef) monitor for signs of infections ( Fever, WBC). Vanc and Diflucan added by ID 12/04. Zosyn added today - Repeat blood urine and sputum culture 12/02/16. Pertinent cultures 11/13 - blood cultures 2 - staph aureus 11/13 and 11/14- pleural fluid- staph aureus 11/14- sputum- staph aureus 11/15 - blood cultures 2 -staph aureus 11/16 - Bronch samples: Staph Aureus 11/16 Sputum: Staph Aureus 11/19 - blood cultures 2 - no growth 11/23 - pleural fluid - no growth 11/24 - blood cultures 2 - no growth 11/25 - UA - negative 11/25 - sputum no growth 12/02: Urine C tropicalis HEME: Normocytic anemia - Monitor CBC, CMP, coags ENDO: SSI with accuchecks for glycemic control TSH 0.6. FEN: Hyper-magnesium Free water flushes at 250 cc every 8 hours. RENAL: Acute kidney injury Creatinine 1.4 Monitor urine output Accurate I's and O's Avoid nephrotoxic drugs PROPH: - Bilateral lower extremity SCDs. Heparin SQ, IV Protonix for prophylaxis LINES: - Left IJ CVL placed 11/16 discontinued. Currently with peripheral IVs Palliative care is following Critical Care: CCT 40 Acutely ill again with possible abdominal perforation and intra abdominal sepsis Jan Velez MD Dec 05, 2016 16:47
--- NOTE | 2016-12-05 17:07 | HHI.PR ---
Subjective Subjective Notes Resting in bed MV via trach RN Sandy at bedside Objective Vitals/I&O Vital Signs Date Time Temp Pulse Resp B/P Pulse Ox O2 Delivery O2 Flow Rate FiO2 12/05/16 16:19 98 50 12/05/16 14:00 107 12/05/16 12:00 99.9 12/05/16 12:00 24 124/59 12/05/16 09:00 Mechanical Ventilator Labs Laboratory Tests Test 12/04/16 12/05/16 12/05/16 17:18 05:04 11:12 Lactic Acid Level 1.0 White Blood Count 13.2 Red Blood Count 2.72 Hemoglobin 8.4 Hematocrit 25.5 Mean Corpuscular Volume 93.8 Mean Corpuscular Hemoglobin 30.9 Mean Corpuscular Hemoglobin 32.9 Concent Red Cell Distribution Width 15.3 Platelet Count 301 Mean Platelet Volume 7.7 Neutrophils (%) (Auto) 87.4 Lymphocytes (%) (Auto) 8.1 Monocytes (%) (Auto) 3.9 Eosinophils (%) (Auto) 0.0 Basophils (%) (Auto) 0.6 Neutrophils # (Auto) 11.5 Lymphocytes # (Auto) 1.1 Monocytes # (Auto) 0.5 Eosinophils # (Auto) 0.0 Basophils # (Auto) 0.1 CBC Comment DIFF FINAL Differential Comment Sodium Level 145 Potassium Level 3.5 Chloride Level 110 Carbon Dioxide Level 24.7 Anion Gap 10 Blood Urea Nitrogen 48 Creatinine 1.41 Estimat Glomerular Filtration 52 Rate Random Glucose 86 Calcium Level 8.0 Magnesium Level 2.0 Total Bilirubin 0.9 Aspartate Amino Transf 11 (AST/SGOT) Alanine Aminotransferase LESS THAN 6 (ALT/SGPT) Alkaline Phosphatase 70 Total Protein 5.7 Albumin 1.1 Random Vancomycin Level 16.3 Date/Time Procedure Status Source Growth 12/02/16 20:15 Urine Culture - Final Complete Urine Catheterized Urine Marquita Tropicalis 12/02/16 14:39 Aerobic Blood Culture - Preliminary Resulted Blood Peripheral NO GROWTH IN 3 DAYS 12/02/16 14:39 Anaerobic Blood Culture - Preliminary Resulted Blood Peripheral NO GROWTH IN 3 DAYS 12/02/16 11:50 Gram Stain - Final Complete Sputum Endotracheal 12/02/16 11:50 Sputum Culture - Final Complete Sputum Endotracheal HEAVY GROWTH NORMAL RESPIRATORY JAROCHO Cardiovascular: Regular Lungs: Clear Abdomen: Other (distended; grimaces with palpation ) Extremities: Other (mild generalized edema ) A/P Assessment and Plan 56 year old male with multiple medical problems; s/p trach; now with distended abdomen and CT showing free air -Stable -Continue to follow abdominal exam -NPO -May benefit from repeat CT abd in the next 24 hours -Monitor WBC; although this is not the best indicator since he is on steroids -We will continue to monitor Attending Statement as above pt seen at bedside recheck ct a/p in 24-48 hours c/w non op mgnt abdominal exams Attestation The exam, history, and the medical decision-making described in the above note were completed with the assistance of the mid-level provider. I reviewed and agree with the findings presented. I attest that I had a [id number] encounter with the patient on the same day, and personally performed and documented my assessment and findings in the medical record. Carey Barnett Dec 05, 2016 17:07 Ravi Baker MD Dec 10, 2016 11:10
--- NOTE | 2016-12-05 17:39 | HHI.GIFU ---
Subjective Remarks Resting in bed. Sedated on vent. Abdomen not quite as distended as yesterday, but still tympanic with diffuse tenderness. Nurse reports that repeat CT scan abdomen and pelvis was ordered- she is getting ready to give contrast. (Charlene Mueller) Objective Vitals I&O Vital Signs Date Time Temp Pulse Resp B/P Pulse Ox O2 Delivery O2 Flow Rate FiO2 12/05/16 16:19 98 50 12/05/16 14:00 107 12/05/16 13:15 98 50 12/05/16 12:00 50 12/05/16 12:00 99.9 12/05/16 12:00 99.9 113 24 124/59 99 12/05/16 12:00 113 12/05/16 10:14 98 50 12/05/16 10:00 107 12/05/16 09:30 50 12/05/16 09:00 97 Mechanical Ventilator 50 12/05/16 08:00 104 12/05/16 08:00 40 12/05/16 08:00 99.5 104 24 102/51 92 12/05/16 07:52 93 40 12/05/16 07:00 91 Mechanical Ventilator 40 12/05/16 06:00 112 12/05/16 04:29 100 40 12/05/16 04:00 107 12/05/16 04:00 100.8 107 25 102/50 100 12/05/16 04:00 40 12/05/16 02:00 112 12/05/16 00:29 99 40 12/05/16 00:00 40 12/05/16 00:00 101.2 105 25 95/48 98 12/05/16 00:00 105 12/04/16 22:00 111 12/04/16 21:06 98 40 12/04/16 20:00 99.4 105 24 102/50 97 12/04/16 20:00 40 12/04/16 20:00 105 12/04/16 19:00 97 Mechanical Ventilator 40 12/04/16 18:00 109 I/O 12/04/16 12/04/16 12/04/16 12/05/16 12/05/16 12/05/16 06:59 14:59 22:59 06:59 14:59 22:59 Intake Total 1171 ml 1031 ml 697 ml 344 ml 1263 ml Output Total 1690 ml 1610 ml 1010 ml 550 ml 525 ml Balance -519 ml -579 ml -313 ml -206 ml 738 ml IV Total 330 ml 456 ml 697 ml 344 ml 1013 ml Tube Feeding 531 ml 225 ml 0 ml 0 ml Tube Irrigant 100 ml Other 310 ml 250 ml 250 ml Output Urine Total 550 ml 1100 ml 250 ml 250 ml 225 ml Stool Total 1020 ml 400 ml 50 ml 50 ml 100 ml Gastric Drainage Total 700 ml 250 ml 200 ml Tube Feeding Residual Discard 0 ml Chest Tube Drainage Total 120 ml 110 ml 10 ml 0 ml Laboratory Laboratory Tests Test 12/05/16 12/05/16 12/05/16 05:04 11:12 16:30 White Blood Count 13.2 Red Blood Count 2.72 Hemoglobin 8.4 Hematocrit 25.5 Mean Corpuscular Volume 93.8 Mean Corpuscular Hemoglobin 30.9 Mean Corpuscular Hemoglobin 32.9 Concent Red Cell Distribution Width 15.3 Platelet Count 301 Mean Platelet Volume 7.7 Neutrophils (%) (Auto) 87.4 Lymphocytes (%) (Auto) 8.1 Monocytes (%) (Auto) 3.9 Eosinophils (%) (Auto) 0.0 Basophils (%) (Auto) 0.6 Neutrophils # (Auto) 11.5 Lymphocytes # (Auto) 1.1 Monocytes # (Auto) 0.5 Eosinophils # (Auto) 0.0 Basophils # (Auto) 0.1 CBC Comment DIFF FINAL Differential Comment Sodium Level 145 Potassium Level 3.5 Chloride Level 110 Carbon Dioxide Level 24.7 Anion Gap 10 Blood Urea Nitrogen 48 Creatinine 1.41 Estimat Glomerular Filtration 52 Rate Random Glucose 86 Calcium Level 8.0 Magnesium Level 2.0 Total Bilirubin 0.9 Aspartate Amino Transf 11 (AST/SGOT) Alanine Aminotransferase LESS THAN 6 (ALT/SGPT) Alkaline Phosphatase 70 Total Protein 5.7 Albumin 1.1 Random Vancomycin Level 16.3 Lactic Acid Level 0.8 Date/Time Procedure Status Source Growth 12/02/16 20:15 Urine Culture - Final Complete Urine Catheterized Urine Marquita Tropicalis 12/02/16 14:39 Aerobic Blood Culture - Preliminary Resulted Blood Peripheral NO GROWTH IN 3 DAYS 12/02/16 14:39 Anaerobic Blood Culture - Preliminary Resulted Blood Peripheral NO GROWTH IN 3 DAYS 12/02/16 11:50 Gram Stain - Final Complete Sputum Endotracheal 12/02/16 11:50 Sputum Culture - Final Complete Sputum Endotracheal HEAVY GROWTH NORMAL RESPIRATORY [facility] Imaging Last Impressions Chest X-Ray 12/05/16 0600 Signed Impressions: Service Date/Time: November 03:49 - CONCLUSION: 1. No evidence of pneumothorax. 2. No significant change in the bilateral scattered pulmonary infiltrates. Kulwinder Hernandez MD Abdomen X-Ray 12/05/16 0000 Signed Impressions: Service Date/Time: November 15:41 - CONCLUSION: Normal examination. G-tube overlies the upper abdomen. Sawyer Robertson MD Abdomen/Pelvis CT 12/04/16 0000 Signed Impressions: Service Date/Time: Sunday, December 04, 2016 13:36 - CONCLUSION: 1. Free air in the abdomen of uncertain etiology. It is unlikely to be related to the pneumothorax. The patient does have a new G-tube. 2. Dilated small bowel proximally although the only real area of wall thickening in the jejunum that I see is proximal to the small bowel distention. The distal small bowel is not nearly as distended but I don't see an obvious transition zone. There is a normal amount of stool in the right colon. 3. Right-sided pneumothorax despite the placement of a chest tube anteriorly. Moderate sized left pleural effusion. 4. The free air was relayed to the nurse practitioner shortly after the completion of the study. Sawyer Robertson MD Brain MRI 11/21/16 0000 Signed Impressions: Service Date/Time: November 12:33 - CONCLUSION: Multifocal areas of restricted diffusion primarily in the periventricular and subcortical white matter bilaterally but also cortically based in the right frontal lobe. Findings likely represent ischemic change likely related to septic emboli given the patient's clinical history. No abscess or enhancing lesion is visualized. Agustin Bonner MD Head CT 11/17/16 0600 Signed Impressions: Service Date/Time: Thursday, November 17, 2016 10:39 - CONCLUSION: No significant change has occurred. Deven Urrutia MD Chest CT 11/16/16 0000 Signed Impressions: Service Date/Time: Wednesday, November 16, 2016 20:36 - CONCLUSION: 1. New right chest tube in the posterior superior right pleural space. There continues to be a moderate right pleural effusion primarily seen at the base. Some degree of loculation may be present inferiorly. The effusion does not layer posteriorly. There are scattered punctate areas of air within the pleural space inferiorly on the right. There is a solitary small area of air within the mild left pleural effusion. 2. Numerous irregular masses seen throughout both lungs some which are cavitary. These are nonspecific. Inflammatory masses needs be suspected. The multiplicity raises possibility of septic emboli. Agustin Price MD CT Angiography 11/13/16 1328 Signed Impressions: Service Date/Time: Friday, November 13, 2016 15:50 - CONCLUSION: 1. Multiple cavitary lesions within both lungs with the largest measuring 9.5 cm in the right upper lobe. Differential diagnosis includes infectious and neoplastic etiologies. 2. Moderate sized right pleural effusion with adjacent compressive atelectasis and/or infiltrate. 3. Cardiomegaly and coronary artery calcifications. 4. Subcarinal mediastinal lymphadenopathy. 5. Degenerative changes throughout the thoracic spine. Jed Ponce MD Physical Exam HEENT: Normocephalic; atraumatic CHEST: Trach to vent, course breath sounds. chest tube right chest CARDIAC: ST- 109. ABDOMEN: Abdomen tympanic, distended (slightly improved from yesterday), diffuse tenderness- seems to be slightly improved, Bowel sounds present, PEG site free of erythema, swelling EXTREMITIES: Significant generalized edema. SKIN: Warm/dry HEADWAITER/HEADWAITRESS: Sedated on vent. (Charlene Mueller) Assessment and Plan Plan ASSESSMENT - Abdominal distention, worsening. Abdomen X-Ray (12/04/16)-----> Dilatation of the small bowel with a pattern suggesting small bowel obstruction. Pt with significant distention, tympanic abdomen. (+) Stool. KUB with possible SBO. Abdomen/Pelvis CT (12/04/16)----> 1. Free air in the abdomen of uncertain etiology. It is unlikely to be related to the pneumothorax. The patient does have a new G-tube. 2. Dilated small bowel proximally although the only real area of wall thickening in the jejunum that I see is proximal to the small bowel distention. The distal small bowel is not nearly as distended but I don't see an obvious transition zone. There is a normal amount of stool in the right colon. 3. Right-sided pneumothorax despite the placement of a chest tube anteriorly. Moderate sized left pleural effusion. 4. The free air was relayed to the nurse practitioner shortly after the completion of the study. Abdomen X-Ray (12/05/16)-----> Normal examination. G-tube overlies the upper abdomen. WBC 13.2. Creat. going up to 1.72. Going for repeat CT study later with po contrast. ? Severe ileus. ? free air from PEG tube placement. GS following. Zosyn. Of note, stool output has decreased. - Abdominal pain. Still with significant diffuse distention. PPI. - Abnormal imaging with persistent luminal narrowing at the gastroduodenal junction without definite focal mass- okay on EGD. S/P EGD with PEG placement (11/29/16)-----> normal esophagus, normal stomach, normal duodenum, successful PEG tube placement - Anemia. Likely multifactorial. No active bleeding. HH 8.4/25.5. - Elevated alk phosphatase. Normalized. Hepatitis panel negative. - Bilateral cavitary lung lesions, right sided pleural effusion. CT Angiography (11/13/16)----> 1. Multiple cavitary lesions within both lungs with the largest measuring 9.5 cm in the right upper lobe. Differential diagnosis includes infectious and neoplastic etiologies. 2. Moderate sized right pleural effusion with adjacent compressive atelectasis and/or infiltrate. 3. Cardiomegaly and coronary artery calcifications. 4. Subcarinal mediastinal lymphadenopathy. Degenerative changes throughout the thoracic spine. S/P CT , but pt pulled out on 11/15. Pleural fluid with staphylococcus aureus. CT replaced. He became tachypneic on 11/[address] chest (11/16/16) ---> Right hydropneumothorax and bilateral cavitary masses greatest in the right upper lobe. CXR as above. Pulm/ID/CCM following. Ancef - Sepsis with endocarditis and septic emboli. Abnormal 2D echo with moderate aortic regurgitation and CHANNDI with large vegetation. S/P CVT evaluation, no plans for surgical intervention at this time. Brain MRI (11/21/16)-----> Multifocal areas of restricted diffusion primarily in the periventricular and subcortical white matter bilaterally but also cortically based in the right frontal lobe. Findings likely represent ischemic change likely related to septic emboli given the patient's clinical history. No abscess or enhancing lesion is visualized. Abx per ID/CCM. Zosyn, diflucan - Respiratory failure - per CCM s/p bronch, chest tube insertion, intubation PLAN: - NPO - PEG to LIWS - Going for repeat CT scan abdomen/pelvis with po contrast - Abx per ID/CCM - Monitor stool output - CCM following - ID following - GS following - Supportive care - Further recommendations to follow based on results of above - Pt seen and examined by Dr. Magallon and myself and this note is written on his behalf (Charlene Mueller) Charlene Mueller Dec 05, 2016 17:39 Brisa Magallon MD Dec 05, 2016 17:49
--- NOTE | 2016-12-05 23:51 | RADRPT ---
EXAM DATE/TIME: 12/05/2016 23:28 [facility] COMPARISON: ABDOMEN KUB ONLY, December 05, 2016, 15:41. CT ABDOMEN & PELVIS W/O CONTRAST, December 04, 2016, 13:36. INDICATIONS : Abdominal distention and pain in upper quadrants. Evaluate for perforation. ORAL CONTRAST: Prescribed oral contrast ingested. RADIATION DOSE: 21.82 CTDIvol (mGy) MEDICAL HISTORY : None SURGICAL HISTORY : Peg tube. ENCOUNTER: Subsequent ACUITY: 3 days PAIN SCALE: Non-responsive LOCATION: Bilateral upper quadrant TECHNIQUE: Volumetric scanning of the abdomen and pelvis was performed. Using automated exposure control and ad justment of the mA and/or kV according to patient size, radiation dose was kept as low as reasonably achievable to obtain optimal diagnostic quality images. DICOM format image data is available electro nically for review and comparison. FINDINGS: A right chest tube is present with a medial pneumothorax without tension. Moderate size bilateral ple ural effusions are present left greater than right. Bibasilar atelectasis is present. Moderate ascites is present. The liver and spleen are normal in size and no focal defects are identif ied. A gastrostomy tube is in place overlying the region of the stomach. There is a small amount of f ree air medial to the gastrostomy tube as well as over the left lobe of the liver. There is small bow el dilatation proximally with wall thickening involving the jejunum. Examination of the pelvis demonstrates no evidence of free fluid or pelvic mass. No abnormally enlarg ed inguinal or retroperitoneal lymph nodes are present. A Santana catheter is present within the bladde r which does not allow for evaluation. CONCLUSION: 1. Small bowel dilatation which may related to ileus or obstruction. The findings are similar to the prior exam. 2. Moderate ascites 3. Small pneumoperitoneum is present. Toribio Magana MD on December 05, 2016 at 23:44 Board Certified Radiologist. This report was verified electronically.
[2016-12-06] VITALS (35 sets, daily range): BP systolic 92–124; BP diastolic 51–60; PULSE 104–126; RESP 16–30; TEMP 98.6–100; O2SAT 96–100
[2016-12-06] MEDS: ceFAZolin 2 GM PREMIX 50 ML IV SCH (00:31)
[2016-12-06] MEDS: RESP: ALBUTEROL 2.5 MG/IPRATROPIUM 0.5 MG NEB (SCH) NEB ×6 (00:54→19:32)
[2016-12-06] MEDS: INSULIN ASPART SUPPLEMENTAL SCALE SQ SCH ×4 (05:00→23:00)
[2016-12-06] MEDS: LORazepam 0.5 MG TAB PO SCH ×2 (05:18→18:10)
[2016-12-06] MEDS: METOCLOPRAMIDE HCL 10 MG/2 ML VIAL IV SCH ×3 (05:18→21:46)
[2016-12-06] MEDS: PROPOFOL 1000 MG/100 ML INJ 100 ML IV SCH ×2 (05:18→19:40)
[2016-12-06] MEDS: PIPERACIL-TAZO 3.375 GM PREMIX 50 ML IV SCH ×2 (05:19→11:02)
[2016-12-06] MEDS: CHLORHEXIDINE GLUCONATE 2 % 1 PACK (2 CLOTHS) TOP SCH (05:19)
[2016-12-06] MEDS: FREE WATER G-TUBE SCH ×3 (05:20→21:45)
[2016-12-06] MEDS: ARTIFICIAL TEARS OPTH SOLN 15 ML BTL EACH EYE SCH ×3 (05:20→21:46)
[2016-12-06 05:29] LABS: AUTOMATED NEUTROPHIL # 10.3 TH/MM3 (1.8-7.7); BASOPHIL % 0.3 % (0.0-2.0); EOSINOPHIL % 0.4 % (0.0-4.0); HEMATOCRIT 25.8 % (39.0-51.0); HEMO FLAGS DIFF FINAL; LYMPH % 7.8 % (9.0-44.0); LYMPHOCYTE # 0.9 TH/MM3 (1.0-4.8); MEAN CELL VOLUME 94.2 FL (80.0-100.0); MEAN CORPUSCULAR HEMOGLOBIN 29.3 PG (27.0-34.0); MEAN CORPUSCULAR HGB CONC 31.1 % (32.0-36.0); MONO % 5.5 % (0.0-8.0); PLATELET COUNT 356 TH/MM3 (150-450); RED BLOOD COUNT 2.73 MIL/MM3 (4.50-5.90); RED CELL DISTRIBUTION WIDTH 16.1 % (11.6-17.2)
[2016-12-06] MEDS: fentaNYL DRIP 250 ML IV SCH ×2 (05:46→18:10)
[2016-12-06 05:54] LABS: ALT (GPT) LESS THAN 6 U/L (12-78); ANION GAP 12 MEQ/L (5-15); AST (GOT) 12 U/L (15-37); BICARBONATE 23.7 MEQ/L (21.0-32.0); BLOOD UREA NITROGEN 58 MG/DL (7-18); CHLORIDE 107 MEQ/L (98-107); GLOMERULAR FILTRATION RATE 36 ML/MIN (>89); POTASSIUM 3.8 MEQ/L (3.5-5.1); SODIUM (NA) 143 MEQ/L (136-145)
[2016-12-06 05:57] LABS: ALKALINE PHOSPHATASE 66 U/L (45-117); TOTAL BILIRUBIN ADULT 0.7 MG/DL (0.2-1.0)
--- NOTE | 2016-12-06 06:30 | RADRPT ---
EXAM DATE/TIME: 12/06/2016 04:02 [facility] COMPARISON: CHEST SINGLE AP, December 05, 2016, 3:49. INDICATIONS : Respiratory failure- right side chest tube MEDICAL HISTORY : Sepsis. Cavitary mass SURGICAL HISTORY : None. ENCOUNTER: Subsequent ACUITY: 3 weeks PAIN SCORE: Non-responsive. LOCATION: Bilateral chest FINDINGS: The cardiac silhouette is enlarged in transverse diameter. A tracheostomy tube is in place in the mid line. There is patchy alveolar disease bilaterally compatible with edema or pneumonia. A right chest tube is in place. There is no evidence of pneumothorax. CONCLUSION: 1. Cardiomegaly 2. Patchy alveolar disease characteristic of edema or pneumonia. There has been no significant leone e when compared to the prior exam. Toribio Magana MD on December 06, 2016 at 6:28 Board Certified Radiologist. This report was verified electronically.
[2016-12-06] MEDS: SODIUM CHLORIDE 0.9% FLUSH 10 ML FLUSH IV FLUSH SCH ×2 (09:00→21:45)
[2016-12-06] MEDS: SODIUM CHLORIDE 0.9% FLUSH 10 ML FLUSH IVF SCH (09:00)
--- NOTE | 2016-12-06 10:18 | HHI.CCPN ---
Subjective Remarks/Hospital Course 56-year-old male is brought to the emergency department by EMS for evaluation of generalized weakness, confusion for about 2 weeks, and also increasing shortness of breath. His oxygen saturation was 88% on room air. EMS administered breathing treatments and Solu-Medrol 125 mg 1 and placed him on nasal cannula. Patient states that he had been sick for almost 10 days, but he is a poor historian. He had a productive cough, but reports no hematemesis or weight loss. He states that it was his neighbor who made him called EMS. He has no past medical history and last time had seen a doctor was about 15 years ago. He denies any fevers but reports some night sweats and chills. He was tachycardic with a heart rate of 115 bpm, had severe leukocytosis with a white count of 35,000 with 91% neutrophils. CMP shows hyponatremia with a sodium of 126. Lactic acid is 2.4. His Chest x-ray shows large 7.7 x 7.8 cm cavitary right midlung lesion with associated right-sided pleural effusion. Subcentimeter left mid lung pulmonary nodules. Patient received 1 L normal saline bolus and Zosyn 4.5 g and Zithromax 500 mg IV and was placed on TB/ respiratory isolation. He has been being in prison 2 years ago increasing his risk of tuberculosis. CT pulmonary angiogram negative for PE but showed multiple cavitary lesions within both lungs with the largest measuring 9.5 cm in the right upper lobe. Moderate size right pleural effusion. I evaluated the patient in the emergency department. Patient appears critically ill in moderate distress mildly tachypneic, sweating. I performed a bedside ultrasound which showed a right effusion which is large. The thoracentesis was performed and 1 L of cloudy dark pleural fluid was removed. Patient will be continued on Zosyn and Levaquin and vancomycin. ID consulted and I discussed with Dr. Steele-she recommended no empiric treatments for TB. 11/14/16: Patient seen and examined complaints of severe epigastric and periumbilical abdominal pain. Patient remains oriented to person. His white count is slightly improved from 35,000-28,9000. Na improved to 136. I have ordered a STAT CT abd/pelvis with IV contrast. Chest x-ray shows reaccumulation of right pleural effusion-fluid chemistries are pending but cell count indicates at least a parapneumonic effusion and patient will need a pigtail chest tube 11/15: Patient pulled his right-sided pigtail catheter out overnight last night. Currently nasal cannula in no acute distress. Afebrile. Continues to have a leukocytosis. 11/16: Currently on room air. Hold out his IVs reportedly overnight last night. Requesting diet. Awake and alert and following commands. 11/17: Intubated yesterday due to acute hypercapnic respiratory failure. Hypoxic post intubation requiring right chest tube placement, bronchoscopy and Flolan. Bronchoscopy revealed thick mucous plugging at bilateral right and left mainstem which were clear. Improved oxygenation over the past 12 hours. Afebrile. 11/18 Patient remains sedated with Diprivan, Fentanyl and intubated. On Vasopressin and Neosyn 120 mics. 11/19 Patient is sedated with Diprivan, Fentanyl and intubated. Afebrile. Off all pressors. Afebrile. WBC is trending down 30 today from 50. 11/20: Remains severely septic and encephalopathic even though weaned off all pressors. White count still elevated but trending down. Became extremely tachycardic and tachypneic on lowering sedation. We'll check MRI of the brain to rule out embolic infarct. Family at the bedside updated 11/21 Remains heavily sedated, remains encephalopathic. MRI brain is pending. Family is at bedside. Remains critically with resp failure severe from endocarditis, now unable to wean off the ventilator due to severe metabolic encephalopathy 11/22 No events overnight. Sedated with Diprivan, fentanyl and intubated. Afebrile. MRI brain yesterday showed ischemic changes likely related to septic emboli. 11/23: Patient remains encephalopathic, severe hyponatremia possible contributing , Na is 157 today. Currently on Precedex and fentanyl. CXR shows increasing L effusion 11/24: Patient more awake today. Follows Commands but did not tolerate spontaneous breathing trials. Had left pigtail chest tube placed yesterday 1.6 L transudative fluid removal since placement 11/25 Patient is sedated with Diprivan, Fentanyl and intubated. T:99.9 11/26 No events overnight. Sedated and intubated. Patient was on CPAP x 3 hrs yesterday then became tachypneic. 11/27: Resting in bed comfortably on Diprivan at 40 mics grams per kilogram per minute and fentanyl drip at 200 an hour. Tolerated PSV trial 2 hours yesterday before becoming tachypnea. Positive BM via fecal containment device 1100 cc. Yesterday according to RN was following commands. 11/28: Currently afebrile. Tolerating PSV trials 1.5 hours today for became tachypneic. Awake and alert and follows commands. Neurologically intact. Positive BM. 11/29: Tmax 99.6. Status post percutaneous tracheostomy secondary to failed extubation trials. Plan for PEG tube today. Awake and interactive the ventilator on sedation vacation. Subjective 11/30: DrAzael currently 98.8. Status post percutaneous tracheostomy Dr. Baker yesterday and PEG tube placement by Dr. Figueroa. Tube feeds will be resumed today. Otherwise appears comfortable ventilator. Arousable and follows commands on sedation vacation. 12/01: Patient becomes tachypneic on attempted CPAP, even with high pressure support. I will add by mouth Ativan to reduce IV sedation requirement. Decreasing chest tube output 12/02: Patient failed spontaneous breathing trial clinically today secondary to severe tachypnea and tachycardia. His spiking fever upto 103. Panculture blood , dose of vancomycin given. Most likely patient is getting new sepsis 12/03: Continued to spike fever up to 102. Dose of vancomycin was given yesterday. Patient tolerated CPAP for 3 hours today, remains encephalopathic though. 12/04: Patient more awake alert follows commands, tolerated CPAP but did not tolerate TPs. Abdomen significantly distended, KUB shows ileus. Continues to spike high fever. Diflucan vancomycin added by ID and continue Ancef 12/05: Abdomen remains distended, CT yesterday show intra abdominal free air. Unclear whether related to PEG or perforation. D/W with Dr. Baker, will get repeat CT with oral contrast today. Zosyn added by ID 12/06 Patient is sedated with Fentanyl and Diprivan. CT abdomen/pelvis yesterday sowed small bowel dilation ( ileus vs obstruction) Objective Vital Signs Date Time Temp Pulse Resp B/P Pulse Ox O2 Delivery O2 Flow Rate FiO2 12/06/16 08:30 97 40 12/06/16 06:00 119 12/06/16 04:30 23 101/52 12/06/16 04:00 98.6 12/05/16 20:23 Ventilator Intake and Output 12/05/16 12/05/16 12/05/16 07:59 15:59 23:59 Intake Total 344 ml 1263 ml 428 ml Output Total 550 ml 525 ml 650 ml Balance -206 ml 738 ml -222 ml Result Diagram: 12/06/16 0451 12/06/16 0451 Other Results Laboratory Tests Test 12/05/16 12/05/16 12/06/16 11:12 16:30 04:51 Random Vancomycin Level 16.3 COMMENT Potassium Level 4.1 MEQ/L 3.8 MEQ/L Lactic Acid Level 0.8 mmol/L White Blood Count 12.0 TH/MM3 Red Blood Count 2.73 MIL/MM3 Hemoglobin 8.0 GM/DL Hematocrit 25.8 % Mean Corpuscular Volume 94.2 FL Mean Corpuscular Hemoglobin 29.3 PG Mean Corpuscular Hemoglobin 31.1 % Concent Red Cell Distribution Width 16.1 % Platelet Count 356 TH/MM3 Mean Platelet Volume 7.2 FL Neutrophils (%) (Auto) 86.0 % Lymphocytes (%) (Auto) 7.8 % Monocytes (%) (Auto) 5.5 % Eosinophils (%) (Auto) 0.4 % Basophils (%) (Auto) 0.3 % Neutrophils # (Auto) 10.3 TH/MM3 Lymphocytes # (Auto) 0.9 TH/MM3 Monocytes # (Auto) 0.7 TH/MM3 Eosinophils # (Auto) 0.0 TH/MM3 Basophils # (Auto) 0.0 TH/MM3 CBC Comment DIFF FINAL Differential Comment Sodium Level 143 MEQ/L Chloride Level 107 MEQ/L Carbon Dioxide Level 23.7 MEQ/L Anion Gap 12 MEQ/L Blood Urea Nitrogen 58 MG/DL Creatinine 1.96 MG/DL Estimat Glomerular Filtration 36 ML/MIN Rate Random Glucose 85 MG/DL Calcium Level 8.1 MG/DL Total Bilirubin 0.7 MG/DL Aspartate Amino Transf 12 U/L (AST/SGOT) Alanine Aminotransferase LESS THAN 6 U/L (ALT/SGPT) Alkaline Phosphatase 66 U/L Total Protein 5.9 GM/DL Albumin 1.1 GM/DL Imaging Last Impressions Chest X-Ray 12/06/16 0600 Signed Impressions: Service Date/Time: Tuesday, December 06, 2016 04:02 - CONCLUSION: 1. Cardiomegaly 2. Patchy alveolar disease characteristic of edema or pneumonia. There has been no significant change when compared to the prior exam. Toribio Magana MD Abdomen/Pelvis CT 12/05/16 0000 Signed Impressions: Service Date/Time: November 23:28 - CONCLUSION: 1. Small bowel dilatation which may related to ileus or obstruction. The findings are similar to the prior exam. 2. Moderate ascites 3. Small pneumoperitoneum is present. Toribio Magana MD Abdomen X-Ray 12/05/16 0000 Signed Impressions: Service Date/Time: , December 05, 2016 15:41 - CONCLUSION: Normal examination. G-tube overlies the upper abdomen. Sawyer Robertson MD Brain MRI 11/21/16 0000 Signed Impressions: Service Date/Time: , November 21, 2016 12:33 - CONCLUSION: Multifocal areas of restricted diffusion primarily in the periventricular and subcortical white matter bilaterally but also cortically based in the right frontal lobe. Findings likely represent ischemic change likely related to septic emboli given the patient's clinical history. No abscess or enhancing lesion is visualized. Agustin Bonner MD Head CT 11/17/16 0600 Signed Impressions: Service Date/Time: Thursday, November 17, 2016 10:39 - CONCLUSION: No significant change has occurred. Deven Urrutia MD Chest CT 11/16/16 0000 Signed Impressions: Service Date/Time: Wednesday, November 16, 2016 20:36 - CONCLUSION: 1. New right chest tube in the posterior superior right pleural space. There continues to be a moderate right pleural effusion primarily seen at the base. Some degree of loculation may be present inferiorly. The effusion does not layer posteriorly. There are scattered punctate areas of air within the pleural space inferiorly on the right. There is a solitary small area of air within the mild left pleural effusion. 2. Numerous irregular masses seen throughout both lungs some which are cavitary. These are nonspecific. Inflammatory masses needs be suspected. The multiplicity raises possibility of septic emboli. Agustin Price MD CT Angiography 11/13/16 2968 Signed Impressions: Service Date/Time: Sunday, November 13, 2016 15:50 - CONCLUSION: 1. Multiple cavitary lesions within both lungs with the largest measuring 9.5 cm in the right upper lobe. Differential diagnosis includes infectious and neoplastic etiologies. 2. Moderate sized right pleural effusion with adjacent compressive atelectasis and/or infiltrate. 3. Cardiomegaly and coronary artery calcifications. 4. Subcarinal mediastinal lymphadenopathy. 5. Degenerative changes throughout the thoracic spine. Jed Ponce MD Objective Remarks GENERAL: 56-year-old male, critically ill currently on ventilator via tracheostomy, SKIN: Warm and dry. Scattered skin lesions erythematous predominantly left lower extremity HEAD: Normocephalic and atraumatic. EYES: No injection, drainage. Pupils equally round and reactive around 3 mm ENT: No nasal drainage noted. Oropharynx is clear. NECK: Supple. No JVD or thyromegaly or lymphadenopathy. Tracheostomy is clean dry and intact CARDIOVASCULAR: RR. S1, S2. No S4. No murmur not appreciated. RESPIRATORY: B/L equal air entry GASTROINTESTINAL: Abdomen is distended, tympanic, no guarding MUSCULOSKELETAL: 1+ pitting edema bilateral lower extremities. Multiple erythematous raised lesions on bilateral lower extremity predominantly left lower leg NEUROLOGICAL: Patient is awake on the ventilator but encephalopathic Date of Insertion: Nov 16, 2016 Date of Removal: Nov 21, 2016 Line: Central Venous Catheter Side: Left Location: Internal, Jugular A/P Assessment and Plan NEURO/PSYCH: Metabolic encephalopathy Septic brain emboli Propofol and fentanyl for sedation and vent synchrony Ativan 0.5 mg PO [id number]. Daily sedation vacation. EEG 11/24: Generalized encephalopathy without any significant epileptic activity. MRI brain 11/21: Ischemic changes throughout white matter likely related to septic emboli. Neuro Dr. Hernandez and has followed intermittently On Thiamine/MVI/Folic acid RESP: Bilateral cavitary lung lesions/most likely cavitating pneumonia from staph aureus Acute respiratory failure Large right loculated pleural effusion/empyema Left pleural effusion Anterior pneumothorax PRVC 18/600/1.0/5/50. Decrease FIO2 40% Continue with vent support keep sat >90%. DuoNebs every 4 hours with albuterol nebs every 2 hours. Vent bundle. Status post tracheostomy by Dr. Baker 11/29 Right-sided chest tube #28 [place]- placed back on suction due to pneumothorax on right 12/02 Left-sided chest tube #10 [place]- placed 11/24/16-removed 12/02 Right thoracentesis with 1 L cloudy yellow fluid removed, fluid cell studies WBC 2,600, Patient status post pigtail catheter placement 11/14, 445 cc prior pulled out . Evaluated by Dr. Samuels/CT surgery. Per his recommendations, No indication for decortication at this time CV: Aortic valve endocarditis/large vegetation Sinus tachycardia Atrial fibrillation with RVR early normal sinus rhythm Elevated troponin - likely rate dependent - Hydrocortisone 25mg IV Q12- - 2-D echocardiogram revealed EF 55-60%. Moderate AR. CHANDNI revealed 17 mm x 17 millimeter mobile mass on aortic valve. - limited echo 11/22 Persistent vegetation - CT surgery. Recommendations no intervention at this time GI: Intra peritoneal free air. (Related to PEG or perforation). Ileus Hypoalbuminemia Moderate protein calorie malnutrition/acute Repeat CT abdomen/pelvis 12/05- small pneumoperitoneum, small bowel dilation ( ileus vs obstruction) mod. ascites. Discussed with GI- will proceed with small bowel series with Gastrografin and CT guided paracentesis, small pneumoperitoneum likely related to previous PEG tube placement, GI/Surgery is following- Dr. Baker. CT abdomen 12/04 show intra peritoneal free air. ? related to PEG or perforation. IV Protonix for GI prophylaxis. MiraLAX twice a day for bowel regimen Reglan for bowel motility Prev CT of the abdomen pelvis with IV contrast revealed possible ileus., Gastric contraction at gastric duodenal junction. 2 mm renal cyst. GI is following; s/p PEG placement 11/29/16 : Monitor renal function, I/O's, electrolytes replacement per protocol. Cr increased 1.96 today from 1.41, add D5NS @84ml/hr On Free water 250ml Q8 ID: Severe sepsis Persistent fever Multilobar cavitating pneumonia secondary staph aureus Staph aureus empyema Aortic valve endocarditis - Continue with abx per ID ( Zosyn, Diflucan, Vanco, d/c Ancef- has been on Ancef since 11/15) monitor for signs of infections ( Fever, WBC). - Pancultured 12/02/16. Pertinent cultures 11/13 - blood cultures 2 - staph aureus 11/13 and 11/14- pleural fluid- staph aureus 11/14- sputum- staph aureus 11/15 - blood cultures 2 -staph aureus 11/16 - Bronch samples: Staph Aureus 11/16 Sputum: Staph Aureus 11/19 - blood cultures 2 - no growth 11/23 - pleural fluid - no growth 11/24 - blood cultures 2 - no growth 11/25 - UA - negative 11/25 - sputum no growth 12/02: Urine C tropicalis HEME: Normocytic anemia - Monitor CBC, CMP, coags ENDO: SSI with accuchecks for glycemic control TSH 0.6. PROPH: - Bilateral lower extremity SCDs. Heparin SQ, IV Protonix for prophylaxis LINES: - peripheral IVs Palliative care is following Level 3 Noam Calhoun MD Dec 06, 2016 10:17
[2016-12-06] MEDS: MULTIVITAMIN TAB PO SCH (10:20)
[2016-12-06] MEDS: PANTOPRAZOLE SODIUM 40 MG VIAL IV SCH ×2 (10:20→21:45)
[2016-12-06] MEDS: POLYETHYLENE GLYCOL 17 GM PKG PO SCH ×2 (10:21→21:00)
[2016-12-06] MEDS: CHLORHEXIDINE 0.12% (ORAL KIT) 15 ML CUP MT SCH ×2 (10:21→21:44)
[2016-12-06] MEDS: FOLIC ACID 1 MG TAB PO SCH (10:21)
[2016-12-06] MEDS: HEPARIN SODIUM - SQ 10,000 UNITS/ML VIAL SQ SCH ×2 (10:21→21:45)
[2016-12-06] MEDS: LACTULOSE SYRUP 20 GM/30 ML CUP PO SCH (10:21)
[2016-12-06] MEDS: HYDROCORTISONE SOD SUCCINATE 100 MG VIAL IV PUSH SCH ×2 (10:22→21:45)
--- NOTE | 2016-12-06 10:56 | HHI.GIFU ---
Subjective Remarks Pt resting in bed. Awake- nurse reports sedation off. Pt is on CPAP. His breathing is mildly labored, he is tachycardic at 120. Diffuse abdominal tenderness. Remains distended. Nurse reports that she removed flexiseal and pt passed large amount of thick liquid stool. Going down for US guided paracentesis later today. (Charlene Mueller) Objective Vitals I&O Vital Signs Date Time Temp Pulse Resp B/P Pulse Ox O2 Delivery O2 Flow Rate FiO2 12/06/16 08:30 97 40 12/06/16 08:30 40 12/06/16 06:00 119 12/06/16 04:30 115 23 101/52 100 12/06/16 04:06 100 50 12/06/16 04:05 113 23 102/52 100 12/06/16 04:00 98.6 109 21 100 12/06/16 04:00 50 12/06/16 04:00 115 12/06/16 03:30 104 22 93/51 99 12/06/16 03:00 105 20 94/52 100 12/06/16 02:30 105 22 92/52 100 12/06/16 02:00 104 23 94/51 99 12/06/16 02:00 115 12/06/16 01:00 109 23 92/51 99 12/06/16 00:51 100 50 12/06/16 00:30 110 24 97/53 98 12/06/16 00:00 50 12/06/16 00:00 104 12/06/16 00:00 99.0 116 26 108/57 99 12/05/16 23:45 115 24 98/51 99 12/05/16 23:30 117 21 102/50 98 12/05/16 23:00 115 26 97/49 97 12/05/16 22:54 110 22 101/54 97 12/05/16 22:30 112 24 102/52 97 12/05/16 22:00 114 25 106/53 98 12/05/16 22:00 110 12/05/16 21:30 115 25 106/53 97 12/05/16 21:00 115 24 110/56 98 12/05/16 20:30 113 24 108/52 98 12/05/16 20:23 99 Ventilator 50 12/05/16 20:15 98 50 7/20/17 20:00 50 720/17 20:00 99.2 109 22 102/54 98 720/17 20:00 110 720/17 19:00 97 Mechanical Ventilator 50 7/17 19:00 110 21 105/52 99 720/17 18:30 114 25 112/55 99 720/17 18:00 116 24 107/52 99 720/17 18:00 116 12/05/17 17:30 113 25 101/50 96 720/17 17:00 110 26 102/48 720/17 16:30 109 25 103/55 98 20/17 16:19 98 50 7/17 16:00 104 17 16:00 50 17 16:00 98.8 104 23 95/52 100 720/17 16:00 104 23 95/52 100 20/17 15:30 104 23 94/49 97 720/17 15:00 107 24 103/52 98 720/17 14:30 104 22 95/48 98 720/17 14:00 107 17 14:00 107 23 95/50 96 720/17 13:30 111 25 104/54 97 20/17 13:15 98 50 12/05/17 13:00 113 24 107/53 99 12/05/17 12:30 113 25 107/55 98 12/05/17 12:00 50 17 12:00 99.9 17 12:00 99.9 113 24 124/59 99 12/05/17 12:00 113 17 11:30 106 23 101/51 99 20/17 11:00 101 29 97/52 100 I/O 720/17 7/20/17 7/20/17 7//17 7//17 12/06/17 07:00 15:00 23:00 07:00 15:00 23:00 Intake Total 344 ml 1263 ml 428 ml 433 ml Output Total 550 ml 525 ml 650 ml 250 ml Balance -206 ml 738 ml -222 ml 183 ml IV Total 344 ml 1013 ml 428 ml 433 ml Tube Feeding 0 ml Other 250 ml Output Urine Total 250 ml 225 ml 300 ml 250 ml Stool Total 50 ml 100 ml 350 ml 0 ml Gastric Drainage Total 250 ml 200 ml Chest Tube Drainage Total 0 ml 0 ml Laboratory Laboratory Tests Test 12/05/16 12/05/16 12/06/16 11:12 16:30 04:51 Random Vancomycin Level 16.3 Potassium Level 4.1 3.8 Lactic Acid Level 0.8 White Blood Count 12.0 Red Blood Count 2.73 Hemoglobin 8.0 Hematocrit 25.8 Mean Corpuscular Volume 94.2 Mean Corpuscular Hemoglobin 29.3 Mean Corpuscular Hemoglobin 31.1 Concent Red Cell Distribution Width 16.1 Platelet Count 356 Mean Platelet Volume 7.2 Neutrophils (%) (Auto) 86.0 Lymphocytes (%) (Auto) 7.8 Monocytes (%) (Auto) 5.5 Eosinophils (%) (Auto) 0.4 Basophils (%) (Auto) 0.3 Neutrophils # (Auto) 10.3 Lymphocytes # (Auto) 0.9 Monocytes # (Auto) 0.7 Eosinophils # (Auto) 0.0 Basophils # (Auto) 0.0 CBC Comment DIFF FINAL Differential Comment Sodium Level 143 Chloride Level 107 Carbon Dioxide Level 23.7 Anion Gap 12 Blood Urea Nitrogen 58 Creatinine 1.96 Estimat Glomerular Filtration 36 Rate Random Glucose 85 Calcium Level 8.1 Total Bilirubin 0.7 Aspartate Amino Transf 12 (AST/SGOT) Alanine Aminotransferase LESS THAN 6 (ALT/SGPT) Alkaline Phosphatase 66 Total Protein 5.9 Albumin 1.1 Date/Time Procedure Status Source Growth 12/02/16 20:15 Urine Culture - Final Complete Urine Catheterized Urine Marquita Tropicalis 12/02/16 14:39 Aerobic Blood Culture - Preliminary Resulted Blood Peripheral NO GROWTH IN 3 DAYS 12/02/16 14:39 Anaerobic Blood Culture - Preliminary Resulted Blood Peripheral NO GROWTH IN 3 DAYS 12/02/16 11:50 Gram Stain - Final Complete Sputum Endotracheal 12/02/16 11:50 Sputum Culture - Final Complete Sputum Endotracheal HEAVY GROWTH NORMAL RESPIRATORY JAROCHO Physical Exam HEENT: Normocephalic; atraumatic CHEST: Trach to vent, course breath sounds. chest tube right chest, mildly labored CARDIAC: ST- 120's ABDOMEN: Abdomen tympanic, distended, diffuse tenderness- seems to be slightly improved, Bowel sounds present, PEG to LIWS EXTREMITIES: Generalized edema. SKIN: Warm/dry IT COMMUNICATIONS SPECIALIST: Awake, follows commands (Charlene Mueller) Assessment and Plan Plan ASSESSMENT - Abdominal distention, worsening. Abdomen X-Ray (12/04/16)-----> Dilatation of the small bowel with a pattern suggesting small bowel obstruction. Pt with significant distention, tympanic abdomen. (+) Stool. KUB with possible SBO. Abdomen/Pelvis CT (12/04/16)----> 1. Free air in the abdomen of uncertain etiology. It is unlikely to be related to the pneumothorax. The patient does have a new G-tube. 2. Dilated small bowel proximally although the only real area of wall thickening in the jejunum that I see is proximal to the small bowel distention. The distal small bowel is not nearly as distended but I don't see an obvious transition zone. There is a normal amount of stool in the right colon. 3. Right-sided pneumothorax despite the placement of a chest tube anteriorly. Moderate sized left pleural effusion. 4. The free air was relayed to the nurse practitioner shortly after the completion of the study. Rpt CT scan abdomen and pelvis with PO contrast (12/05/16)------> 1. Small bowel dilatation which may related to ileus or obstruction. The findings are similar to the prior exam. 2. Moderate ascites 3. Small pneumoperitoneum is present. Suspect severe ileus with small pneumoperitoneum from PEG tube placement. GS following. Continues to have significant distention and is tender on exam. Will get SBFT to r/o obstruction and also help with ileus. - Abdominal pain. SBFT today. PPI. - Abnormal imaging with persistent luminal narrowing at the gastroduodenal junction without definite focal mass- okay on EGD. S/P EGD with PEG placement (11/29/16)-----> normal esophagus, normal stomach, normal duodenum, successful PEG tube placement - Anemia. Likely multifactorial. No active bleeding. HH 8.0/25.8. - Elevated alk phosphatase. Normalized. Hepatitis panel negative. T. Bili 0.7, AST 12, ALT < 6, ALk PHosph 66. - Bilateral cavitary lung lesions, right sided pleural effusion. CT Angiography (11/13/16)----> 1. Multiple cavitary lesions within both lungs with the largest measuring 9.5 cm in the right upper lobe. Differential diagnosis includes infectious and neoplastic etiologies. 2. Moderate sized right pleural effusion with adjacent compressive atelectasis and/or infiltrate. 3. Cardiomegaly and coronary artery calcifications. 4. Subcarinal mediastinal lymphadenopathy. Degenerative changes throughout the thoracic spine. S/P CT , but pt pulled out on 11/15. Pleural fluid with staphylococcus aureus. CT replaced. He became tachypneic on 11/[address] chest (11/16/16) ---> Right hydropneumothorax and bilateral cavitary masses greatest in the right upper lobe. CXR as above. Pulm/ID/CCM following. Zosyn, diflucan - Sepsis with endocarditis and septic emboli. Abnormal 2D echo with moderate aortic regurgitation and CHANDNI with large vegetation. S/P CVT evaluation, no plans for surgical intervention at this time. Brain MRI (11/21/16)-----> Multifocal areas of restricted diffusion primarily in the periventricular and subcortical white matter bilaterally but also cortically based in the right frontal lobe. Findings likely represent ischemic change likely related to septic emboli given the patient's clinical history. No abscess or enhancing lesion is visualized. Abx per ID/CCM. Zosyn, diflucan. WBC 12.0 - Respiratory failure - per CCM s/p bronch, chest tube insertion, intubation PLAN: - NPO - PEG to LIWS - SBFT with gastrografin - US guided paracentesis (diagnostic and therapeutic) - Abx per ID/CCM - Monitor stool output - CCM following - ID following - GS following - Supportive care - Further recommendations to follow based on results of above - Pt seen and examined by Dr. Magallon and myself and this note is written on his behalf (Charlene Mueller) Charlene Mueller Dec 06, 2016 10:56 Brisa Magallon MD Dec 06, 2016 20:48
[2016-12-06] MEDS: THIAMINE INJ 100 MG in SODIUM CHLORIDE 0.9% INJ 100 ML IV SCH (11:01)
[2016-12-06] MEDS: DEXT 5%-NACL 0.9% 1000 ML INJ 1,000 ML IV SCH ×2 (11:23→21:46)
--- NOTE | 2016-12-06 12:51 | RADRPT ---
EXAM DATE/TIME: 12/06/2016 11:31 [place] COMPARISON: CT ABDOMEN & PELVIS W/O CONTRAST, December 05, 2016, 23:28. INDICATIONS : Ascites. MEDICAL HISTORY : Dyspnea. SURGICAL HISTORY : Left tibia surgery. ENCOUNTER: Initial ACUITY: 1 day PAIN SCORE: Nonresponsive. LOCATION: Abdomen. AREA EVALUATED: Abdomen. FINDINGS: Imaging of the abdomen and pelvis was performed to evaluate for ascites. However, no free fluid is vi sualized. There is a dilated bowel visualized. CONCLUSION: No free fluid is present. Agustin Bonner MD on December 06, 2016 at 12:48 Board Certified Radiologist. This report was verified electronically.
--- NOTE | 2016-12-06 13:02 | HHI.IDPN ---
Note Infectious Disease Note On the vent. Sedated. Now awake and responsive. Mouthing words but difficult to understand. Temp lower. Following commands. Ancef was discontinued by [facility]. D/W RN. Reported that he started having soft stools after removing dignishield. Large vegetation on AV and moderate aortic regurg on CHANDNI. Culture of blood 11/13, 11/15, 11/16. - Staph aureus. 11/19 no growth. Culture of pleural fluid 11/14 - staph aureus. ALLERGIES NO KNOWN DRUG ALLERGIES. ANTIBIOTICS: Ancef. Pip/Tazo. Diflucan. OBJECTIVE: Vital Signs Date Time Temp Pulse Resp B/P Pulse Ox O2 Delivery O2 Flow Rate FiO2 12/06/16 11:39 98 40 12/06/16 08:30 97 40 12/06/16 08:30 40 12/06/16 08:00 50 12/06/16 06:00 119 12/06/16 04:30 115 23 101/52 100 12/06/16 04:06 100 50 12/06/16 04:05 113 23 102/52 100 12/06/16 04:00 98.6 109 21 100 12/06/16 04:00 50 12/06/16 04:00 115 12/06/16 03:30 104 22 93/51 99 12/06/16 03:00 105 20 94/52 100 12/06/16 02:30 105 22 92/52 100 12/06/16 02:00 104 23 94/51 99 12/06/16 02:00 115 12/06/16 01:00 109 23 92/51 99 12/06/16 00:51 100 50 12/06/16 00:30 110 24 97/53 98 12/06/16 00:00 50 12/06/16 00:00 104 12/06/16 00:00 99.0 116 26 108/57 99 12/05/16 23:45 115 24 98/51 99 12/05/16 23:30 117 21 102/50 98 12/05/16 23:00 115 26 97/49 97 12/05/16 22:54 110 22 101/54 97 12/05/16 22:30 112 24 102/52 97 12/05/16 22:00 114 25 106/53 98 12/05/16 22:00 110 12/05/16 21:30 115 25 106/53 97 7/2017 21:00 115 24 110/56 98 20/17 20:30 113 24 108/52 98 20/17 20:23 99 Ventilator 50 12/05/17 20:15 98 50 12/05/17 20:00 50 17 20:00 99.2 109 22 102/54 98 20/17 20:00 110 12/05/16 19:00 97 Mechanical Ventilator 50 12/05/16 19:00 110 21 105/52 99 17 18:30 114 25 112/55 99 17 18:00 116 24 107/52 99 20/17 18:00 116 17 17:30 113 25 101/50 96 17 17:00 110 26 102/48 12/05/17 16:30 109 25 103/55 98 17 16:19 98 50 17 16:00 104 17 16:00 50 12/05/16 16:00 98.8 104 23 95/52 100 20/17 16:00 104 23 95/52 100 12/05/17 15:30 104 23 94/49 97 20/17 15:00 107 24 103/52 98 20/17 14:30 104 22 95/48 98 12/05/17 14:00 107 17 14:00 107 23 95/50 96 20/17 13:30 111 25 104/54 97 20/17 13:15 98 50 17 13:00 113 24 107/53 99 20/17 20/17 12/06/16 15:00 23:00 07:00 Intake Total 1263 ml 428 ml 433 ml Output Total 525 ml 650 ml 250 ml Balance 738 ml -222 ml 183 ml IV Total 1013 ml 428 ml 433 ml Other 250 ml Output Urine Total 225 ml 300 ml 250 ml Stool Total 100 ml 350 ml 0 ml Gastric Drainage Total 200 ml Chest Tube Drainage Total 0 ml Laboratory Tests Test 12/04/1617 12/06/16 16:57 05:04 04:51 White Blood Count 12.3 TH/MM3 13.2 TH/MM3 12.0 TH/MM3 Red Blood Count 2.71 MIL/MM3 2.72 MIL/MM3 2.73 MIL/MM3 Hemoglobin 8.3 GM/DL 8.4 GM/DL 8.0 GM/DL Hematocrit 25.5 % 25.5 % 25.8 % Mean Corpuscular Volume 94.1 FL 93.8 FL 94.2 FL Mean Corpuscular Hemoglobin 30.7 PG 30.9 PG 29.3 PG Mean Corpuscular Hemoglobin 32.6 % 32.9 % 31.1 % Concent Red Cell Distribution Width 15.6 % 15.3 % 16.1 % Platelet Count 294 TH/MM3 301 TH/MM3 356 TH/MM3 Mean Platelet Volume 7.5 FL 7.7 FL 7.2 FL Neutrophils (%) (Auto) 87.9 % 87.4 % 86.0 % Lymphocytes (%) (Auto) 8.1 % 8.1 % 7.8 % Monocytes (%) (Auto) 3.7 % 3.9 % 5.5 % Eosinophils (%) (Auto) 0.1 % 0.0 % 0.4 % Basophils (%) (Auto) 0.2 % 0.6 % 0.3 % Neutrophils # (Auto) 10.8 TH/MM3 11.5 TH/MM3 10.3 TH/MM3 Lymphocytes # (Auto) 1.0 TH/MM3 1.1 TH/MM3 0.9 TH/MM3 Monocytes # (Auto) 0.5 TH/MM3 0.5 TH/MM3 0.7 TH/MM3 Eosinophils # (Auto) 0.0 TH/MM3 0.0 TH/MM3 0.0 TH/MM3 Basophils # (Auto) 0.0 TH/MM3 0.1 TH/MM3 0.0 TH/MM3 CBC Comment DIFF FINAL DIFF FINAL DIFF FINAL Differential Comment Laboratory Tests Test 12/04/16 12/05/16 12/05/16 12/06/16 17:18 05:04 16:30 04:51 Lactic Acid Level 1.0 mmol/L 0.8 mmol/L Sodium Level 145 MEQ/L 143 MEQ/L Potassium Level 3.5 MEQ/L 4.1 MEQ/L 3.8 MEQ/L Chloride Level 110 MEQ/L 107 MEQ/L Carbon Dioxide Level 24.7 MEQ/L 23.7 MEQ/L Anion Gap 10 MEQ/L 12 MEQ/L Blood Urea Nitrogen 48 MG/DL 58 MG/DL Creatinine 1.41 MG/DL 1.96 MG/DL Estimat Glomerular Filtration 52 ML/MIN 36 ML/MIN Rate Random Glucose 86 MG/DL 85 MG/DL Calcium Level 8.0 MG/DL 8.1 MG/DL Magnesium Level 2.0 MG/DL Total Bilirubin 0.9 MG/DL 0.7 MG/DL Aspartate Amino Transf 11 U/L 12 U/L (AST/SGOT) Alanine Aminotransferase LESS THAN 6 U/L LESS THAN 6 U/L (ALT/SGPT) Alkaline Phosphatase 70 U/L 66 U/L Total Protein 5.7 GM/DL 5.9 GM/DL Albumin 1.1 GM/DL 1.1 GM/DL Microbiology Date/Time Procedure Status Source Growth 12/02/16 20:15 Urine Culture - Final Complete Urine Catheterized Urine Marquita Tropicalis IMAGING: Chest X-Ray 12/06/16 0600 Signed Impressions: Service Date/Time: Tuesday, December 06, 2016 04:02 - CONCLUSION: 1. Cardiomegaly 2. Patchy alveolar disease characteristic of edema or pneumonia. There has been no significant change when compared to the prior exam. Toribio Magana MD PHYSICAL EXAMINATION GENERAL: On the vent. Sedated. HEENT: No icterus. Oropharynx: No lesions. Mucosa moist. NECK: Supple without adenopathy. LUNGS: Bilateral rhonchi. HEART: Normal S1-S2 with 2/6 IRMA at LSB. ABDOMEN: Distended. Bowel sounds not audible. Unable to appreciate tenderness. EXTREMITIES: No clubbing or cyanosis, 2+ edema. SKIN: No rash. NEURO: Sedated. Calm. PSYCH: unable to assess. IMPRESSION 1. Endocarditis Aortic valve Staph aureus (MSSA). 2. Cavitary pulmonary lesions. Embolic./ PROCESS PLANNER ischemic lesions suggesting embolic lesions. 3. Pneumonia/parapneumonic effusion- MSSA. 4. Skin lesions which potentially could be embolic. 5. Leukocytosis secondary to infection. WBC fluctuating. 6. Fever secondary to infection. Improved. 7. Vent dependent respiratory failure. 8. Recurrent high spiking fever. New sepsis. Better. 9. Ileus. 10. Worsening renal function. ? obstruction. RECOMMENDATIONS 1. Resume and continue IV Ancef for endocarditis. Dose decreased because of renal function. 2. Continue Diflucan. 3. Continue PIP/Tazo. 4. Monitor temperature. 5. Hold off on vancomycin. Slava Garcia MD Dec 06, 2016 13:01
[2016-12-06] MEDS: FLUCONAZOLE 200 MG PREMIX BAG 100 ML IV SCH (13:54)
[2016-12-06] MEDS: PIPERACIL-TAZO 2.25 GM PREMIX 50 ML IV SCH (14:00)
--- NOTE | 2016-12-06 14:58 | HHI.HCPN ---
Reason for visit a. To assist with evaluation and management of symptoms including: dyspnea b. To assist medical decision maker(s) with: better understanding of current medical conditions; weighing benefits/burdens of medical treatment options; making medical treatment decisions. . Subjective/Interval History Small bowel dilatation which may related to ileus or obstruction. There is worsening abdominal distention. Paracentesis later on today. Pt open eyes, and interactive. Able to nod to indicate yes, and shook head to indicate not. Pt continue to require vent support, s/p trach, and remains on restraints. Pt able to discern for me his last name is not tima, but anjana. At times he is not able to answer questions, but just look at me, "The normal color of grass is green, please indicate for me if it's True(yes) or False no" Did not nod head, I feel pt is more interactive, but its questionable he has the capacity to weigh risk and benefits of medical decision. Family/friend interactions I have attempted to call pt's Mom, Ms. Ying x 2, and have left voicemail. Thus far as not called back. Advance Directives Living Will: Never completed Health Care Surrogate: Copy in medical record Durable Power of Community Living Instructor: Never completed Advance Directive Specifics Health Care Surrogate(s): The patient lacks capacity for decision-making, and it is uncertain whether he will regain that capacity. Initially, he had named his landlord Kerriejoshua Correa as healthcare surrogate on 11/14/16, but she makes it very clear by telephone [phone] on 11/18/16 that "since there is family around, I do not want to be the decision-maker for him in any way." I spoke with the patient's 21-year-old son Alexei Mohan [phone] in [place] by telephone, and he reports that he also does not want to be involved in the decision making; "he has not had any impact or played any role in my life, so that would not be appropriate for me to make decisions for him." Thus, the patient's mother Nellie Ying is his healthcare proxy decision-maker. Objective Vital Signs Date Time Temp Pulse Resp B/P Pulse Ox O2 Delivery O2 Flow Rate FiO2 12/06/16 14:30 121 22 102/53 98 12/06/16 14:30 121 12/06/16 14:00 122 19 102/54 97 12/06/16 14:00 122 12/06/16 13:30 125 12/06/16 13:30 125 24 103/56 98 12/06/16 13:00 120 12/06/16 13:00 120 23 105/52 96 12/06/16 12:30 121 27 109/53 96 12/06/16 12:30 121 12/06/16 12:00 126 29 115/58 97 12/06/16 12:00 126 12/06/16 11:39 98 40 12/06/16 11:30 123 28 110/56 98 12/06/16 11:30 123 12/06/16 11:00 121 28 114/57 97 12/06/16 11:00 121 12/06/16 10:30 122 29 116/59 97 12/06/16 10:30 122 12/06/16 10:00 122 16 114/57 97 12/06/16 10:00 122 12/06/16 09:30 121 19 124/60 98 12/06/16 09:30 121 12/06/16 09:00 115 23 107/53 98 12/06/16 09:00 115 12/06/16 08:30 97 40 12/06/16 08:30 40 12/06/16 08:30 116 12/06/16 08:30 116 30 107/54 98 12/06/16 08:00 113 22 98/51 98 12/06/16 08:00 50 12/06/16 08:00 113 12/06/16 06:00 119 12/06/16 04:30 115 23 101/52 100 12/06/16 04:06 100 50 12/06/16 04:05 113 23 102/52 100 12/06/16 04:00 98.6 109 21 100 12/06/16 04:00 50 12/06/16 04:00 115 12/06/16 03:30 104 22 93/51 99 12/06/16 03:00 105 20 94/52 100 12/06/16 02:30 105 22 92/52 100 12/06/16 02:00 104 23 94/51 99 12/06/16 02:00 115 12/06/16 01:00 109 23 92/51 99 12/06/16 00:51 100 50 12/06/16 00:30 110 24 97/53 98 12/06/16 00:00 50 12/06/16 00:00 104 12/06/16 00:00 99.0 116 26 108/57 99 12/05/16 23:45 115 24 98/51 99 12/05/16 23:30 117 21 102/50 98 12/05/16 23:00 115 26 97/49 97 12/05/16 22:54 110 22 101/54 97 12/05/16 22:30 112 24 102/52 97 12/05/16 22:00 114 25 106/53 98 12/05/16 22:00 110 12/05/16 21:30 115 25 106/53 97 12/05/16 21:00 115 24 110/56 98 12/05/16 20:30 113 24 108/52 98 12/05/16 20:23 99 Ventilator 50 12/05/16 20:15 98 50 12/05/16 20:00 50 12/05/16 20:00 99.2 109 22 102/54 98 12/05/16 20:00 110 12/05/16 19:00 97 Mechanical Ventilator 50 12/05/16 19:00 110 21 105/52 99 12/05/16 18:30 114 25 112/55 99 12/05/16 18:00 116 24 107/52 99 12/05/16 18:00 116 12/05/16 17:30 113 25 101/50 96 12/05/16 17:00 110 26 102/48 12/05/16 16:30 109 25 103/55 98 12/05/16 16:19 98 50 12/05/16 16:00 104 12/05/16 16:00 50 12/05/16 16:00 98.8 104 23 95/52 100 12/05/16 16:00 104 23 95/52 100 12/05/16 15:30 104 23 94/49 97 12/05/16 15:00 107 24 103/52 98 Intake & Output 12/06/16 12/06/16 07:00 19:00 Intake Total 861 ml Output Total 900 ml Balance -39 ml IV Total 861 ml Output Urine Total 550 ml Stool Total 350 ml Chest Tube Drainage Total 0 ml Physical Exam CONSTITUTIONAL/GENERAL: This is an adequately nourished patient, on the ventilator [place] [facility] TUBES/LINES/DRAINS: Central line, trach, peg, Santana catheter SKIN: No jaundice, rashes. He has multiple small, healing punctures and abrasions about his feet and ankles . CARDIOVASCULAR: Regular rate and rhythm with grade 2 systolic murmur. No JVD. Peripheral pulses symmetric. RESPIRATORY/CHEST: Symmetric, unlabored respirations. Scattered rhonchi GASTROINTESTINAL: Abdomen soft, nondistended. No hepato-splenomegaly, or palpable masses. No guarding. Bowel sounds present. MUSCULOSKELETAL: Extremities without clubbing, cyanosis, or edema. No joint tenderness or effusion noted. No mottling or clubbing. He has multiple small punctures and abrasions about his feet and ankles (reportedly from walking barefoot). NEUROLOGICAL: Opens eyes, tracks, follows some simple commands, PSYCHIATRIC: could not evaluated . Diagnostic Tests Laboratory Laboratory Tests Test 12/04/16 12/04/16 12/05/16 12/05/16 16:57 17:18 05:04 11:12 White Blood Count 12.3 TH/MM3 13.2 TH/MM3 (4.0-11.0) (4.0-11.0) Red Blood Count 2.71 MIL/MM3 2.72 MIL/MM3 (4.50-5.90) (4.50-5.90) Hemoglobin 8.3 GM/DL 8.4 GM/DL (13.0-17.0) (13.0-17.0) Hematocrit 25.5 % 25.5 % (39.0-51.0) (39.0-51.0) Mean Corpuscular Volume 94.1 FL 93.8 FL (80.0-100.0) (80.0-100.0) Mean Corpuscular Hemoglobin 30.7 PG 30.9 PG (27.0-34.0) (27.0-34.0) Mean Corpuscular Hemoglobin 32.6 % 32.9 % Concent (32.0-36.0) (32.0-36.0) Red Cell Distribution Width 15.6 % 15.3 % (11.6-17.2) (11.6-17.2) Platelet Count 294 TH/MM3 301 TH/MM3 (150-450) (150-450) Mean Platelet Volume 7.5 FL 7.7 FL (7.0-11.0) (7.0-11.0) Neutrophils (%) (Auto) 87.9 % 87.4 % (16.0-70.0) (16.0-70.0) Lymphocytes (%) (Auto) 8.1 % 8.1 % (9.0-44.0) (9.0-44.0) Monocytes (%) (Auto) 3.7 % (0.0-8.0) 3.9 % (0.0-8.0) Eosinophils (%) (Auto) 0.1 % (0.0-4.0) 0.0 % (0.0-4.0) Basophils (%) (Auto) 0.2 % (0.0-2.0) 0.6 % (0.0-2.0) Neutrophils # (Auto) 10.8 TH/MM3 11.5 TH/MM3 (1.8-7.7) (1.8-7.7) Lymphocytes # (Auto) 1.0 TH/MM3 1.1 TH/MM3 (1.0-4.8) (1.0-4.8) Monocytes # (Auto) 0.5 TH/MM3 0.5 TH/MM3 (0-0.9) (0-0.9) Eosinophils # (Auto) 0.0 TH/MM3 0.0 TH/MM3 (0-0.4) (0-0.4) Basophils # (Auto) 0.0 TH/MM3 0.1 TH/MM3 (0-0.2) (0-0.2) CBC Comment DIFF FINAL DIFF FINAL Differential Comment Lactic Acid Level 1.0 mmol/L (0.4-2.0) Sodium Level 145 MEQ/L (136-145) Potassium Level 3.5 MEQ/L (3.5-5.1) Chloride Level 110 MEQ/L (98-107) Carbon Dioxide Level 24.7 MEQ/L (21.0-32.0) Anion Gap 10 MEQ/L (5-15) Blood Urea Nitrogen 48 MG/DL (7-18) Creatinine 1.41 MG/DL (0.60-1.30) Estimat Glomerular Filtration 52 ML/MIN (>89) Rate Random Glucose 86 MG/DL (74-106) Calcium Level 8.0 MG/DL (8.5-10.1) Magnesium Level 2.0 MG/DL (1.5-2.5) Total Bilirubin 0.9 MG/DL (0.2-1.0) Aspartate Amino Transf 11 U/L (15-37) (AST/SGOT) Alanine Aminotransferase LESS THAN 6 (ALT/SGPT) U/L (12-78) Alkaline Phosphatase 70 U/L (45-117) Total Protein 5.7 GM/DL (6.4-8.2) Albumin 1.1 GM/DL (3.4-5.0) Random Vancomycin Level 16.3 COMMENT Test 12/05/16 12/06/16 16:30 04:51 Potassium Level 4.1 MEQ/L 3.8 MEQ/L (3.5-5.1) (3.5-5.1) Lactic Acid Level 0.8 mmol/L (0.4-2.0) White Blood Count 12.0 TH/MM3 (4.0-11.0) Red Blood Count 2.73 MIL/MM3 (4.50-5.90) Hemoglobin 8.0 GM/DL (13.0-17.0) Hematocrit 25.8 % (39.0-51.0) Mean Corpuscular Volume 94.2 FL (80.0-100.0) Mean Corpuscular Hemoglobin 29.3 PG (27.0-34.0) Mean Corpuscular Hemoglobin 31.1 % Concent (32.0-36.0) Red Cell Distribution Width 16.1 % (11.6-17.2) Platelet Count 356 TH/MM3 (150-450) Mean Platelet Volume 7.2 FL (7.0-11.0) Neutrophils (%) (Auto) 86.0 % (16.0-70.0) Lymphocytes (%) (Auto) 7.8 % (9.0-44.0) Monocytes (%) (Auto) 5.5 % (0.0-8.0) Eosinophils (%) (Auto) 0.4 % (0.0-4.0) Basophils (%) (Auto) 0.3 % (0.0-2.0) Neutrophils # (Auto) 10.3 TH/MM3 (1.8-7.7) Lymphocytes # (Auto) 0.9 TH/MM3 (1.0-4.8) Monocytes # (Auto) 0.7 TH/MM3 (0-0.9) Eosinophils # (Auto) 0.0 TH/MM3 (0-0.4) Basophils # (Auto) 0.0 TH/MM3 (0-0.2) CBC Comment DIFF FINAL Differential Comment Sodium Level 143 MEQ/L (136-145) Chloride Level 107 MEQ/L (98-107) Carbon Dioxide Level 23.7 MEQ/L (21.0-32.0) Anion Gap 12 MEQ/L (5-15) Blood Urea Nitrogen 58 MG/DL (7-18) Creatinine 1.96 MG/DL (0.60-1.30) Estimat Glomerular Filtration 36 ML/MIN (>89) Rate Random Glucose 85 MG/DL (74-106) Calcium Level 8.1 MG/DL (8.5-10.1) Total Bilirubin 0.7 MG/DL (0.2-1.0) Aspartate Amino Transf 12 U/L (15-37) (AST/SGOT) Alanine Aminotransferase LESS THAN 6 (ALT/SGPT) U/L (12-78) Alkaline Phosphatase 66 U/L (45-117) Total Protein 5.9 GM/DL (6.4-8.2) Albumin 1.1 GM/DL (3.4-5.0) Result Diagram: 12/06/16 0451 12/06/16 0451 Procedures Thoracentesis and right (pigtail) thoracostomy 11/14/16 INTUBATION 11/16/16 Bronchoscopy 11/16/16 . 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 Never . One estranged son in [place]. Spiritual: The patient is not and has not ever been spiritual or judaism person according to the family, but the family does want the medical front desk specialist to continue to come and visit. Legal: The patient lacks capacity for decision-making, and it it is uncertain whether he will regain that capacity. Initially, he had named his landlord Kerrie Correa as healthcare surrogate, but she makes it very clear by telephone [phone] on 11/18/16 that "since there is family around, I do not want to be the decision-maker for him in any way." I spoke with the patient's 21-year-old son Alexei Mohan [phone] in [place] by telephone, and he reports that he also does not want to be involved in the decision making; "he has not had any impact or played any role in my life, so that would not be appropriate for me to make decisions for him." Thus, the patient's mother Nellie Ying is his healthcare proxy decision-maker. Ethical issues impacting care: None . Important Contacts Mother: Nellie Ying <----> PROXY DECISION-MAKER -- [phone] Son: (estranged for many years) Adarsh Mohan [phone] . Prognosis The patient has multisystem organ failure and septic shock with a large vegetation on his aortic valve, and his overall prognosis is quite guarded at best, and poor at worse. At risk for decompensation, sudden setback and . . Code Status: Alternative Code Plan ==Code- Family request to change back to ull code. ==DECISION-MAKING: Pt open eyes, and interactive. Able to nod to indicate yes , and shook head to indicate not. Pt continue to require vent support, s/p trach, and remains on restraints. Pt able to discern for me his last name is not tima, but anjana. At times he is not able to answer questions, but just look at me, "The normal color of grass is green, please indicate for me if it's True(yes) or False no" Did not nod head, I feel pt is more interactive, but its questionable he has the capacity to weigh risk and benefits of medical decision. ==Goals of Care: Met with pt's Mother, Sister and Friend today 11/26/2016. Multiple family meeting and discussion with pt's mother. Understand pt has cardiac vegetation and that without surgery, likely will not clear infection, and overall poor prognosis. At this point in time, not a surgical candidate. Reviewed thus far he is unable to be weaned off the ventilator and likely will need decision on trach and peg by this Friday. Reviewed what peg and trach means, and his overall prognosis, if he is able to leave and survive hospitalization, he is as risk for multiple hospitalization and visits. They decided on peg and trach. Follow up with pt's and family- I have attempted to call Ms. Ying x 2, and left voicemail. Awaiting call back. There is a schedule meeting to take place Friday, after pt's sister arrives. ==SYMPTOMS: Any pain or dyspnea is being managed by appropriate sedation and the ventilator, and I have no additional medication recommendations at this time. ==Palliative Care will continue to follow the patient during this hospitalization. . Attestation To help prompt me to consider important information that might be impacting today's encounter and assessment, information from prior notes written by myself or my colleagues may have been "brought forward" into today's note. My signature on this note, however, is an attestation that I personally performed the exam, history, and/or decision-making noted today, and, unless otherwise indicated, the interactions with patient, family, and staff as well as the review of records all occurred today. I also attest that the listed assessment and stated plan reflect my best clinical judgment today based on the combination of historical information, prior notes, and today's exam/ interactions. When time spent is documented, it refers only to time spent today by the signer, or if indicated, combined time spent today by collaborating physician/nurse practitioner. Celestine Hampton MD Dec 06, 2016 14:58
--- NOTE | 2016-12-06 16:10 | HHI.PR ---
Subjective Subjective Notes Able to answer yes and no questions Reports no abdominal pain Objective Vitals/I&O Vital Signs Date Time Temp Pulse Resp B/P Pulse Ox O2 Delivery O2 Flow Rate FiO2 12/06/16 16:00 40 12/06/16 16:00 119 12/06/16 14:30 22 102/53 98 12/06/16 04:00 98.6 12/05/16 20:23 Ventilator Labs Laboratory Tests Test 12/05/16 12/06/16 16:30 04:51 Potassium Level 4.1 3.8 Lactic Acid Level 0.8 White Blood Count 12.0 Red Blood Count 2.73 Hemoglobin 8.0 Hematocrit 25.8 Mean Corpuscular Volume 94.2 Mean Corpuscular Hemoglobin 29.3 Mean Corpuscular Hemoglobin 31.1 Concent Red Cell Distribution Width 16.1 Platelet Count 356 Mean Platelet Volume 7.2 Neutrophils (%) (Auto) 86.0 Lymphocytes (%) (Auto) 7.8 Monocytes (%) (Auto) 5.5 Eosinophils (%) (Auto) 0.4 Basophils (%) (Auto) 0.3 Neutrophils # (Auto) 10.3 Lymphocytes # (Auto) 0.9 Monocytes # (Auto) 0.7 Eosinophils # (Auto) 0.0 Basophils # (Auto) 0.0 CBC Comment DIFF FINAL Differential Comment Sodium Level 143 Chloride Level 107 Carbon Dioxide Level 23.7 Anion Gap 12 Blood Urea Nitrogen 58 Creatinine 1.96 Estimat Glomerular Filtration 36 Rate Random Glucose 85 Calcium Level 8.1 Total Bilirubin 0.7 Aspartate Amino Transf 12 (AST/SGOT) Alanine Aminotransferase LESS THAN 6 (ALT/SGPT) Alkaline Phosphatase 66 Total Protein 5.9 Albumin 1.1 Date/Time Procedure Status Source Growth 12/02/16 20:15 Urine Culture - Final Complete Urine Catheterized Urine Marquita Tropicalis 12/02/16 14:39 Aerobic Blood Culture - Preliminary Resulted Blood Peripheral NO GROWTH IN 4 DAYS 12/02/16 14:39 Anaerobic Blood Culture - Preliminary Resulted Blood Peripheral NO GROWTH IN 4 DAYS 12/02/16 11:50 Gram Stain - Final Complete Sputum Endotracheal 12/02/16 11:50 Sputum Culture - Final Complete Sputum Endotracheal HEAVY GROWTH NORMAL RESPIRATORY JAROCHO Cardiovascular: Regular Lungs: Clear Abdomen: Other (distended; PEG in place ) Extremities: Other (generalized edema ) Narrative Exam trach in place A/P Assessment and Plan 56 year old male with multiple medical problems; s/p trach; now with distended abdomen and CT showing free air -Stable -Continue to follow abdominal exam -NPO -Repeat CT abd/pelvis shows small pneumoperitoneum; stable -Monitor WBC; although this is not the best indicator since he is on steroids -We will continue to monitor Attending Note - Dr. Davidson Abdomen distended but not really tender to palpation The exam, history, and the medical decision-making described in the above note were completed with the assistance of the mid-level provider. I reviewed and agree with the findings presented. I attest that I had a [id number] encounter with the patient on the same day, and personally performed and documented my assessment and findings in the medical record. Carey Barnett Dec 06, 2016 16:10 Krzysztof Davidson MD Dec 10, 2016 19:51
--- NOTE | 2016-12-06 17:54 | HHI.PR ---
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 Diagnosis/Plan: Subjective Subjective Comments No acute events reported Active Medications Current Medications Medications (Trade) Dose Ordered Sig/Gaye Route Start Time Stop Time Status Last Admin (NS Flush) 2 ml UNSCH PRN IV FLUSH 11/13/16 17:15 11/28/16 09:35 (NS Flush) 2 ml BID IV FLUSH 11/13/16 21:00 12/06/16 09:00 Miscellaneous Information 1 Q361D XX 11/13/16 17:15 (Chlorhexidine 2% Cloth) 3 pack Taper DAILY@04 TOP 11/14/16 04:00 11/10/17 03:59 12/06/16 05:19 (Chlorhexidine 2% Cloth) 3 pack UNSCH PRN TOP 11/13/16 17:15 (Zofran Inj) 4 mg Q6H PRN IV PUSH 11/14/16 06:30 11/14/16 06:52 (Protonix Inj) 40 mg BID IV 11/14/16 21:00 12/06/16 10:20 (Miralax) 17 gm BID PO 11/14/16 21:00 12/06/16 10:21 (Reglan Inj) 10 mg Q8HR IV 11/16/16 14:00 12/06/16 13:48 (Lopressor Inj) 5 mg Q4HR IV PUSH 11/16/16 12:00 Hold 11/16/16 11:57 Chlorhexidine Gluconate 15 ml 15 ml BID@08,20 MT 11/16/16 20:00 12/06/16 10:21 (fentaNYL DRIP) 250 ml @ 0 mls/hr TITRATE IV 11/16/16 16:30 12/06/16 05:46 (NS Flush) DAILY IVF 11/17/16 09:00 12/06/16 09:00 (NS Flush) UNSCH PRN IVF 11/16/16 17:15 11/28/16 09:35 (Cardizem) 30 mg QID NG 11/16/16 18:00 Hold (Tears Naturale Opth Soln) 1 drop Q8HR EACH EYE 11/17/16 14:00 12/06/16 14:00 (NovoLOG SUPPLEMENTAL SCALE) 1 Q6H SQ 11/18/16 11:00 11/28/16 16:34 (Folate) 1 mg DAILY PO 11/18/16 10:15 12/06/16 10:21 (D50w (Vial) Inj) 25 ml UNSCH PRN IV PUSH 11/18/16 10:45 (Glucagon Inj) 1 mg UNSCH PRN OTHER 11/18/16 10:45 Lactulose 30 ml 30 ml DAILY PO 11/18/16 12:30 12/06/16 10:21 (Diprivan 1000 Mg/100ml Inj) 100 ml @ 0 mls/hr TITRATE IV 11/24/16 12:45 12/06/16 05:18 (Free Water) VOLUME OF WATER: ( 250 ) ML Q8HR G-TUBE 11/25/16 14:00 12/06/16 14:00 Multivitamins 1 tab 1 tab DAILY PO 11/27/16 09:00 12/06/16 10:20 Thiamine HCl 100 mg/Sodium Chloride 101 ml @ 101 mls/hr DAILY IV 11/28/16 09:00 12/06/16 11:01 (Levophed Inj/NS 250 ml Inj) 250 ml @ 0 mls/hr TITRATE IV 11/29/16 12:45 (Brethine Inj) 1 mg UNSCH PRN SQ 11/29/16 12:45 Heparin Sodium (Porcine) 5000 units 5,000 units Q12HR SQ 12/01/16 21:00 12/06/16 10:21 Potassium Chloride 100 ml @ 50 mls/hr Q2H PRN IV 12/01/16 10:15 (KCl 20 Meq Premix Inj) 100 ml @ 50 mls/hr Q2H PRN IV 12/01/16 10:15 12/01/16 17:36 Potassium Bicarb/ Potassium Chloride 50 meq 50 meq UNSCH PRN PO 12/01/16 10:15 Potassium Chloride 100 ml @ 25 mls/hr UNSCH PRN IV 12/01/16 10:15 Potassium Chloride 100 ml @ 50 mls/hr Q2H PRN IV 12/01/16 10:15 12/05/16 11:23 (Magnesium Sulfate Inj/NS Inj) 100 ml @ 50 mls/hr UNSCH PRN IV 12/01/16 10:15 Magnesium Oxide 800 mg 800 mg UNSCH PRN PO 12/01/16 10:15 (Magnesium Sulfate Inj/NS Inj) 100 ml @ 50 mls/hr UNSCH PRN IV 12/01/16 10:15 Potassium Phosphate 2000 mg 2,000 mg Q4H PRN PO 12/01/16 10:15 (Sodium Phosphate Inj/NS 250 ml Inj) 250 ml @ 42 mls/hr UNSCH PRN IV 12/01/16 10:15 Potassium Phosphate 2000 mg 2,000 mg UNSCH PRN PO/TUBE 12/01/16 10:15 Potassium Phosphate 30 mmol/ Sodium Chloride 260 ml @ 42 mls/hr UNSCH PRN IV 12/01/16 10:15 (Precedex Inj/NS Inj) 52 ml @ 0 mls/hr TITRATE IV 12/02/16 13:00 12/04/16 10:32 (Tylenol) 650 mg Q6H PRN PO 12/02/16 20:00 12/04/16 23:33 Lorazepam 0.5 mg 0.5 mg Q12H PO 12/03/16 18:00 12/06/16 05:18 (Diflucan 200 Mg Premix Bag) 100 ml @ 100 mls/hr Q24H IV 12/04/16 14:00 12/06/16 13:54 Hydrocortisone Sodium Succinate 25 mg 25 mg Q12HR IV PUSH 12/05/16 21:00 12/08/16 20:59 12/06/16 10:22 Dextrose/Sodium Chloride 1,000 ml @ 84 mls/hr [id number] IV 12/06/16 10:15 12/06/16 11:23 Cefazolin Sodium 1000 mg/Sodium Chloride 100 ml @ 200 mls/hr Q8H IV 12/06/16 13:00 12/06/16 13:48 (Zosyn 2.25 Gm Premix) 50 ml @ 100 mls/hr Q12H IV 12/06/16 14:00 12/06/16 14:00 Allergies Allergies Coded Allergies No Known Allergies (Unverified11/13/16) Exam I&O / VS 12/05/16 12/05/16 12/06/16 15:00 23:00 07:00 Intake Total 1263 ml 428 ml 433 ml Output Total 525 ml 650 ml 250 ml Balance 738 ml -222 ml 183 ml IV Total 1013 ml 428 ml 433 ml Other 250 ml Output Urine Total 225 ml 300 ml 250 ml Stool Total 100 ml 350 ml 0 ml Gastric Drainage Total 200 ml Chest Tube Drainage Total 0 ml Vital Signs Date Time Temp Pulse Resp B/P Pulse Ox O2 Delivery O2 Flow Rate FiO2 12/06/16 16:50 100 12/06/16 16:24 100 40 12/06/16 16:00 40 12/06/16 16:00 119 12/06/16 16:00 119 25 111/54 98 12/06/16 14:30 121 22 102/53 98 12/06/16 14:30 121 12/06/16 14:00 122 19 102/54 97 12/06/16 14:00 122 12/06/16 13:30 125 12/06/16 13:30 125 24 103/56 98 12/06/16 13:00 120 12/06/16 13:00 120 23 105/52 96 12/06/16 12:30 121 27 109/53 96 12/06/16 12:30 121 12/06/16 12:00 40 12/06/16 12:00 126 29 115/58 97 12/06/16 12:00 126 12/06/16 11:39 98 40 12/06/16 11:30 123 28 110/56 98 12/06/16 11:30 123 12/06/16 11:00 121 28 114/57 97 12/06/16 11:00 121 12/06/16 10:30 122 29 116/59 97 12/06/16 10:30 122 12/06/16 10:00 122 16 114/57 97 12/06/16 10:00 122 12/06/16 09:30 121 19 124/60 98 12/06/16 09:30 121 12/06/16 09:00 115 23 107/53 98 12/06/16 09:00 115 12/06/16 08:30 97 40 12/06/16 08:30 40 12/06/16 08:30 116 12/06/16 08:30 116 30 107/54 98 12/06/16 08:00 113 22 98/51 98 12/06/16 08:00 50 12/06/16 08:00 113 12/06/16 06:00 119 12/06/16 04:30 115 23 101/52 100 12/06/16 04:06 100 50 12/06/16 04:05 113 23 102/52 100 7/21/17 04:00 98.6 109 21 100 12/06/16 04:00 50 12/06/16 04:00 115 12/06/16 03:30 104 22 93/51 99 12/06/16 03:00 105 20 94/52 100 12/06/16 02:30 105 22 92/52 100 12/06/16 02:00 104 23 94/51 99 12/06/16 02:00 115 12/06/16 01:00 109 23 92/51 99 12/06/16 00:51 100 50 12/06/16 00:30 110 24 97/53 98 12/06/16 00:00 50 12/06/16 00:00 104 12/06/16 00:00 99.0 116 26 108/57 99 12/05/16 23:45 115 24 98/51 99 12/05/16 23:30 117 21 102/50 98 12/05/16 23:00 115 26 97/49 97 12/05/16 22:54 110 22 101/54 97 12/05/16 22:30 112 24 102/52 97 12/05/16 22:00 114 25 106/53 98 12/05/16 22:00 110 12/05/16 21:30 115 25 106/53 97 12/05/16 21:00 115 24 110/56 98 12/05/16 20:30 113 24 108/52 98 12/05/16 20:23 99 Ventilator 50 12/05/16 20:15 98 50 12/05/16 20:00 50 12/05/16 20:00 99.2 109 22 102/54 98 12/05/16 20:00 110 12/05/16 19:00 97 Mechanical Ventilator 50 12/05/16 19:00 110 21 105/52 99 12/05/16 18:30 114 25 112/55 99 12/05/16 18:00 116 24 107/52 99 12/05/16 18:00 116 Exam Comments more alert . Follows simple commands PERRL, EOM-intact MOTOR --generalized weakness BUE and BLE Objective Micro and Labs Laboratory Tests Test 12/06/16 04:51 White Blood Count 12.0 Red Blood Count 2.73 Hemoglobin 8.0 Hematocrit 25.8 Mean Corpuscular Volume 94.2 Mean Corpuscular Hemoglobin 29.3 Mean Corpuscular Hemoglobin 31.1 Concent Red Cell Distribution Width 16.1 Platelet Count 356 Mean Platelet Volume 7.2 Neutrophils (%) (Auto) 86.0 Lymphocytes (%) (Auto) 7.8 Monocytes (%) (Auto) 5.5 Eosinophils (%) (Auto) 0.4 Basophils (%) (Auto) 0.3 Neutrophils # (Auto) 10.3 Lymphocytes # (Auto) 0.9 Monocytes # (Auto) 0.7 Eosinophils # (Auto) 0.0 Basophils # (Auto) 0.0 CBC Comment DIFF FINAL Differential Comment Sodium Level 143 Potassium Level 3.8 Chloride Level 107 Carbon Dioxide Level 23.7 Anion Gap 12 Blood Urea Nitrogen 58 Creatinine 1.96 Estimat Glomerular Filtration 36 Rate Random Glucose 85 Calcium Level 8.1 Total Bilirubin 0.7 Aspartate Amino Transf 12 (AST/SGOT) Alanine Aminotransferase LESS THAN 6 (ALT/SGPT) Alkaline Phosphatase 66 Total Protein 5.9 Albumin 1.1 Date/Time Procedure Status Source Growth 12/02/16 20:15 Urine Culture - Final Complete Urine Catheterized Urine Marquita Tropicalis 12/02/16 14:39 Aerobic Blood Culture - Preliminary Resulted Blood Peripheral NO GROWTH IN 4 DAYS 12/02/16 14:39 Anaerobic Blood Culture - Preliminary Resulted Blood Peripheral NO GROWTH IN 4 DAYS 12/02/16 11:50 Gram Stain - Final Complete Sputum Endotracheal 12/02/16 11:50 Sputum Culture - Final Complete Sputum Endotracheal HEAVY GROWTH NORMAL RESPIRATORY JAROCHO Adarsh Hernandez PhD Dec 06, 2016 17:54
--- NOTE | 2016-12-06 18:01 | PD.WCN.NOT ---
Wound Consult Description: Seen for follow up of wound to buttock Communicated with: KIERA Bianchi [facility] Recommendation: Calazime BID and PRN to bilateral upper buttock DTI opening to full thickness skin loss Skin barrier film to bilateral heel DTI's Turn every 2 hours. Additional Information: Saw patient 12/06/2016 at 1230: [facility] called advertising writer via [employer] to report change in wound condition to buttock area.Patient assessed with KIERA ARMANDO, [facility], [facility] and advertising writer. Turned patient to L side to reveal Large DTI that has opened to full thickness skin loss.wound bed presents with ~30% pink tissue ~40% eschar and ~30% discolored dark purple tissue. Periwound noted with incontinence associated dermatitis with scattered partial thickness skin loss.Wound noted without active drainage or foul odor.Wound measures ~13 cm x ~10 cm. Patient now on [facility] turn bed. Per KIERA Bianchi, was on regular natalya bed. Alternating pressure pump was recommended previously by wound care for Natalya bed. Patient tube feed is on hold and albumin is 1.1. Patient also noted with intact deep tissue injuries to R heel measuring 1.6cmx 1.7cm, L heel 1cm x 1.5cm,Medial L great toe 0.8cm x 1cm, L lateral foot 2 cm x 1.2 cm Device related deep tissue injury is also noted on lateral L leg measuring 8 cm x 1 cm from SCDs. Wound care will continue to follow patient weekly until discharged. Neg Pressure Wound Therapy Wound Location Wound Location: Screening of nursing documentation regarding wound to buttock Cristy Rogers [facility] Dec 06, 2016 18:01
--- NOTE | 2016-12-06 18:16 | HHI.PR ---
Subjective Remarks Patient was intubated last night for acute hypoxemic resp failure and a right chest tube was placed for right hydroPTX in addition patient underwent bronch with BAL ( mucous plugs b/l suctioned to clear). MRI brain multifocal area of septic emboli/infarct Had Trach and PEG Tolerates TF Abd less distended On CPAP, tolerates US abd no free fluid Objective Vital Signs Vital Signs Date Time Temp Pulse Resp B/P Pulse Ox O2 Delivery O2 Flow Rate FiO2 12/06/16 18:00 111 12/06/16 16:50 100 12/06/16 16:24 100 40 12/06/16 16:00 40 12/06/16 16:00 119 12/06/16 16:00 119 25 111/54 98 12/06/16 14:30 121 22 102/53 98 12/06/16 14:30 121 12/06/16 14:00 122 19 102/54 97 12/06/16 14:00 122 12/06/16 13:30 125 12/06/16 13:30 125 24 103/56 98 12/06/16 13:00 120 12/06/16 13:00 120 23 105/52 96 12/06/16 12:30 121 27 109/53 96 12/06/16 12:30 121 12/06/16 12:00 40 12/06/16 12:00 126 29 115/58 97 12/06/16 12:00 126 12/06/16 11:39 98 40 12/06/16 11:30 123 28 110/56 98 12/06/16 11:30 123 12/06/16 11:00 121 28 114/57 97 12/06/16 11:00 121 12/06/16 10:30 122 29 116/59 97 12/06/16 10:30 122 12/06/16 10:00 122 16 114/57 97 12/06/16 10:00 122 12/06/16 09:30 121 19 124/60 98 12/06/16 09:30 121 12/06/16 09:00 115 23 107/53 98 12/06/16 09:00 115 12/06/16 08:30 97 40 12/06/16 08:30 40 12/06/16 08:30 116 12/06/16 08:30 116 30 107/54 98 12/06/16 08:00 113 22 98/51 98 12/06/16 08:00 50 12/06/16 08:00 113 12/06/16 06:00 119 12/06/16 04:30 115 23 101/52 100 12/06/16 04:06 100 50 12/06/16 04:05 113 23 102/52 100 12/06/16 04:00 98.6 109 21 100 12/06/16 04:00 50 12/06/16 04:00 115 12/06/16 03:30 104 22 93/51 99 12/06/16 03:00 105 20 94/52 100 12/06/16 02:30 105 22 92/52 100 12/06/16 02:00 104 23 94/51 99 12/06/16 02:00 115 12/06/16 01:00 109 23 92/51 99 12/06/16 00:51 100 50 12/06/16 00:30 110 24 97/53 98 12/06/16 00:00 50 12/06/16 00:00 104 12/06/16 00:00 99.0 116 26 108/57 99 12/05/16 23:45 115 24 98/51 99 12/05/16 23:30 117 21 102/50 98 12/05/16 23:00 115 26 97/49 97 12/05/16 22:54 110 22 101/54 97 12/05/16 22:30 112 24 102/52 97 12/05/16 22:00 114 25 106/53 98 12/05/16 22:00 110 12/05/16 21:30 115 25 106/53 97 12/05/16 21:00 115 24 110/56 98 17 20:30 113 24 108/52 98 20/17 20:23 99 Ventilator 50 12/05/16 20:15 98 50 12/05/16 20:00 50 12/05/16 20:00 99.2 109 22 102/54 98 12/05/16 20:00 110 12/05/16 19:00 97 Mechanical Ventilator 50 12/05/16 19:00 110 21 105/52 99 12/05/16 18:30 114 25 112/55 99 I/O 12/05/1612/05/12/05/16 12/06/16 12/06/16/17 06:59 14:59 22:59 06:59 14:59 22:59 Intake Total 344 ml 1263 ml 428 ml 433 ml 586 ml Output Total 550 ml 525 ml 650 ml 250 ml 250 ml Balance -206 ml 738 ml -222 ml 183 ml 336 ml IV Total 344 ml 1013 ml 428 ml 433 ml 466 ml Tube Feeding 0 ml Other 250 ml 120 ml Output Urine Total 250 ml 225 ml 300 ml 250 ml 250 ml Stool Total 50 ml 100 ml 350 ml 0 ml Gastric Drainage Total 250 ml 200 ml Chest Tube Drainage Total 0 ml 0 ml 0 ml # Bowel Movements 5 Result Diagram: 12/06/16 0451 12/06/16 045 Objective Remarks GENERAL: Patient is 56 yo critically ill intubated , sedated and on pressors. SKIN: Warm and dry. HEAD: Normocephalic. EYES: No scleral icterus. No injection or drainage. NECK: Supple, trachea midline. No JVD or lymphadenopathy. CARDIOVASCULAR: Regular rate and rhythm without murmurs, gallops, or rubs. RESPIRATORY: Breath sounds equal bilaterally. No accessory muscle use. GASTROINTESTINAL: Abdomen soft, non-tender, distended., tympanic MUSCULOSKELETAL: No cyanosis, or edema. Neuro: Sedated and intubated A/P Assessment and Plan 1VDRF 2)Septic shock 3)Staph Aureus bacteremia 4)Empyema 6)Endocarditis involving AV 7)Leucocytosis 8)Cavitary pulm masses 2nd staph Aureus 9)Right hydroPTX PLAN: Continue with vent support keep sat >92% Bronchodilators, ICU vent bundle, on stress dose steroids- Abx per ID Chest tube to suction Sedation with Diprivan and fentanyl CPAP trial PEG tube to suction. Emmett Bolton MD Dec 06, 2016 18:15
[2016-12-06] MEDS ORDERED: DIATRIZOATE MEGLUM/DIATRIZOATE SOD 120 ML BTL (for RAD DIAG) PEG ONE (21:46)
[2016-12-07] VITALS (24 sets, daily range): BP systolic 103–129; BP diastolic 53–61; PULSE 100–125; RESP 9–28; TEMP 98.1–100.2; O2SAT 97–99
[2016-12-07] MEDS: PIPERACIL-TAZO 2.25 GM PREMIX 50 ML IV SCH ×2 (01:35→13:28)
[2016-12-07] MEDS: CHLORHEXIDINE GLUCONATE 2 % 1 PACK (2 CLOTHS) TOP SCH (01:36)
[2016-12-07] MEDS: RESP: ALBUTEROL 2.5 MG/IPRATROPIUM 0.5 MG NEB (SCH) NEB ×4 (03:21→19:38)
[2016-12-07] MEDS: INSULIN ASPART SUPPLEMENTAL SCALE SQ SCH ×4 (05:00→23:00)
[2016-12-07 05:30] LABS: AUTOMATED NEUTROPHIL # 6.8 TH/MM3 (1.8-7.7); BASOPHIL % 0.2 % (0.0-2.0); EOSINOPHIL % 0.1 % (0.0-4.0); HEMATOCRIT 21.5 % (39.0-51.0); HEMO FLAGS DIFF FINAL; LYMPH % 8.5 % (9.0-44.0); LYMPHOCYTE # 0.7 TH/MM3 (1.0-4.8); MEAN CELL VOLUME 93.8 FL (80.0-100.0); MEAN CORPUSCULAR HEMOGLOBIN 30.8 PG (27.0-34.0); MEAN CORPUSCULAR HGB CONC 32.8 % (32.0-36.0); MONO % 5.8 % (0.0-8.0); NEUT % 85.4 % (16.0-70.0); PLATELET COUNT 356 TH/MM3 (150-450); RED BLOOD COUNT 2.29 MIL/MM3 (4.50-5.90); RED CELL DISTRIBUTION WIDTH 15.8 % (11.6-17.2)
[2016-12-07 05:32] LABS: BICARBONATE 23.2 MEQ/L (21.0-32.0); MAGNESIUM 2.3 MG/DL (1.5-2.5); POTASSIUM 3.1 MEQ/L (3.5-5.1)
[2016-12-07] MEDS: ARTIFICIAL TEARS OPTH SOLN 15 ML BTL EACH EYE SCH ×3 (05:53→22:00)
[2016-12-07] MEDS: FREE WATER G-TUBE SCH ×3 (05:53→22:00)
[2016-12-07] MEDS: fentaNYL DRIP 250 ML IV SCH (05:53)
[2016-12-07] MEDS: METOCLOPRAMIDE HCL 10 MG/2 ML VIAL IV SCH (05:53)
[2016-12-07] MEDS: LORazepam 0.5 MG TAB PO SCH ×2 (05:53→17:28)
--- NOTE | 2016-12-07 08:15 | RADRPT ---
EXAM DATE/TIME: 12/06/2016 16:55 [facility] COMPARISON: CT ABDOMEN & PELVIS W/O CONTRAST, December 05, 2016, 23:28. ABDOMEN KUB ONLY, December 05, 2016, 15:41. INDICATIONS : Distension FLUORO TIME: 0.0 minutes IMAGE COUNT: 12 CONTRAST: Gastroabilio IMAGING TIME(S): 15 min, 1.5 hrs, 3 hrs, 5.5 coo20rz,14hr MEDICAL HISTORY : Sepsis SURGICAL HISTORY : PEG tube ENCOUNTER: Subsequent ACUITY: 3 days PAIN SCORE: Non-responsive. LOCATION: Abdomen FINDINGS: Preliminary film demonstrates dilated loops of small bowel somewhat organized on the left side of the abdomen with maximum diameter of 6.1 cm.. Single-contrast Gastrografin small bowel series is limited due to dilution of contrast throughout the abdomen and pelvis. Images were carried out to 14 hours. Contrast gets into the colon at 13 hours. CONCLUSION: Distended loops of small bowel could be due to significant ileus versus partial small bowel obstructi on and contrast gets into the colon at 13 hours. Reba Banerjee MD on December 07, 2016 at 8:12 Board Certified Radiologist. This report was verified electronically.
[2016-12-07] MEDS: POLYETHYLENE GLYCOL 17 GM PKG PO SCH ×2 (08:52→21:51)
[2016-12-07] MEDS: LACTULOSE SYRUP 20 GM/30 ML CUP PO SCH (08:52)
[2016-12-07] MEDS: FOLIC ACID 1 MG TAB PO SCH (08:53)
[2016-12-07] MEDS: MULTIVITAMIN TAB PO SCH (08:53)
[2016-12-07] MEDS: PANTOPRAZOLE SODIUM 40 MG VIAL IV SCH ×2 (08:53→21:50)
[2016-12-07] MEDS: HYDROCORTISONE SOD SUCCINATE 100 MG VIAL IV PUSH SCH ×2 (08:53→21:51)
[2016-12-07] MEDS: HEPARIN SODIUM - SQ 10,000 UNITS/ML VIAL SQ SCH ×2 (08:53→21:50)
[2016-12-07] MEDS: SODIUM CHLORIDE 0.9% FLUSH 10 ML FLUSH IVF SCH (08:54)
[2016-12-07] MEDS: SODIUM CHLORIDE 0.9% FLUSH 10 ML FLUSH IV FLUSH SCH ×2 (08:54→21:50)
[2016-12-07] MEDS ORDERED: BUMETANIDE INJ 1 MG/4 ML VIAL IV PUSH ONE (09:30)
--- NOTE | 2016-12-07 09:36 | HHI.CCPN ---
Subjective Remarks/Hospital Course 56-year-old male is brought to the emergency department by EMS for evaluation of generalized weakness, confusion for about 2 weeks, and also increasing shortness of breath. His oxygen saturation was 88% on room air. EMS administered breathing treatments and Solu-Medrol 125 mg 1 and placed him on nasal cannula. Patient states that he had been sick for almost 10 days, but he is a poor historian. He had a productive cough, but reports no hematemesis or weight loss. He states that it was his neighbor who made him called EMS. He has no past medical history and last time had seen a doctor was about 15 years ago. He denies any fevers but reports some night sweats and chills. He was tachycardic with a heart rate of 115 bpm, had severe leukocytosis with a white count of 35,000 with 91% neutrophils. CMP shows hyponatremia with a sodium of 126. Lactic acid is 2.4. His Chest x-ray shows large 7.7 x 7.8 cm cavitary right midlung lesion with associated right-sided pleural effusion. Subcentimeter left mid lung pulmonary nodules. Patient received 1 L normal saline bolus and Zosyn 4.5 g and Zithromax 500 mg IV and was placed on TB/ respiratory isolation. He has been being in assisted 2 years ago increasing his risk of tuberculosis. CT pulmonary angiogram negative for PE but showed multiple cavitary lesions within both lungs with the largest measuring 9.5 cm in the right upper lobe. Moderate size right pleural effusion. I evaluated the patient in the emergency department. Patient appears critically ill in moderate distress mildly tachypneic, sweating. I performed a bedside ultrasound which showed a right effusion which is large. The thoracentesis was performed and 1 L of cloudy dark pleural fluid was removed. Patient will be continued on Zosyn and Levaquin and vancomycin. ID consulted and I discussed with Dr. Steele-she recommended no empiric treatments for TB. 11/14/16: Patient seen and examined complaints of severe epigastric and periumbilical abdominal pain. Patient remains oriented to person. His white count is slightly improved from 35,000-28,9000. Na improved to 136. I have ordered a STAT CT abd/pelvis with IV contrast. Chest x-ray shows reaccumulation of right pleural effusion-fluid chemistries are pending but cell count indicates at least a parapneumonic effusion and patient will need a pigtail chest tube 11/15: Patient pulled his right-sided pigtail catheter out overnight last night. Currently nasal cannula in no acute distress. Afebrile. Continues to have a leukocytosis. 11/16: Currently on room air. Hold out his IVs reportedly overnight last night. Requesting diet. Awake and alert and following commands. 11/17: Intubated yesterday due to acute hypercapnic respiratory failure. Hypoxic post intubation requiring right chest tube placement, bronchoscopy and Flolan. Bronchoscopy revealed thick mucous plugging at bilateral right and left mainstem which were clear. Improved oxygenation over the past 12 hours. Afebrile. 11/18 Patient remains sedated with Diprivan, Fentanyl and intubated. On Vasopressin and Neosyn 120 mics. 11/19 Patient is sedated with Diprivan, Fentanyl and intubated. Afebrile. Off all pressors. Afebrile. WBC is trending down 30 today from 50. 11/20: Remains severely septic and encephalopathic even though weaned off all pressors. White count still elevated but trending down. Became extremely tachycardic and tachypneic on lowering sedation. We'll check MRI of the brain to rule out embolic infarct. Family at the bedside updated 11/21 Remains heavily sedated, remains encephalopathic. MRI brain is pending. Family is at bedside. Remains critically with resp failure severe from endocarditis, now unable to wean off the ventilator due to severe metabolic encephalopathy 11/22 No events overnight. Sedated with Diprivan, fentanyl and intubated. Afebrile. MRI brain yesterday showed ischemic changes likely related to septic emboli. 11/23: Patient remains encephalopathic, severe hyponatremia possible contributing , Na is 157 today. Currently on Precedex and fentanyl. CXR shows increasing L effusion 11/24: Patient more awake today. Follows Commands but did not tolerate spontaneous breathing trials. Had left pigtail chest tube placed yesterday 1.6 L transudative fluid removal since placement 11/25 Patient is sedated with Diprivan, Fentanyl and intubated. T:99.9 11/26 No events overnight. Sedated and intubated. Patient was on CPAP x 3 hrs yesterday then became tachypneic. 11/27: Resting in bed comfortably on Diprivan at 40 mics grams per kilogram per minute and fentanyl drip at 200 an hour. Tolerated PSV trial 2 hours yesterday before becoming tachypnea. Positive BM via fecal containment device 1100 cc. Yesterday according to RN was following commands. 11/28: Currently afebrile. Tolerating PSV trials 1.5 hours today for became tachypneic. Awake and alert and follows commands. Neurologically intact. Positive BM. 11/29: Tmax 99.6. Status post percutaneous tracheostomy secondary to failed extubation trials. Plan for PEG tube today. Awake and interactive the ventilator on sedation vacation. Subjective 11/30: DrAzael currently 98.8. Status post percutaneous tracheostomy Dr. Baker yesterday and PEG tube placement by Dr. Figueroa. Tube feeds will be resumed today. Otherwise appears comfortable ventilator. Arousable and follows commands on sedation vacation. 12/01: Patient becomes tachypneic on attempted CPAP, even with high pressure support. I will add by mouth Ativan to reduce IV sedation requirement. Decreasing chest tube output 12/02: Patient failed spontaneous breathing trial clinically today secondary to severe tachypnea and tachycardia. His spiking fever upto 103. Panculture blood , dose of vancomycin given. Most likely patient is getting new sepsis 12/03: Continued to spike fever up to 102. Dose of vancomycin was given yesterday. Patient tolerated CPAP for 3 hours today, remains encephalopathic though. 12/04: Patient more awake alert follows commands, tolerated CPAP but did not tolerate TPs. Abdomen significantly distended, KUB shows ileus. Continues to spike high fever. Diflucan vancomycin added by ID and continue Ancef 12/05: Abdomen remains distended, CT yesterday show intra abdominal free air. Unclear whether related to PEG or perforation. D/W with Dr. Baker, will get repeat CT with oral contrast today. Zosyn added by ID 12/06 Patient is sedated with Fentanyl and Diprivan. CT abdomen/pelvis yesterday sowed small bowel dilation ( ileus vs obstruction) 12/07 Patient remains intubated on low dose Diprivan and Fentanyl infusion however he is awake. Tolerated CPAP all day yesterday T: 100.0 last night. SB series showed distended loops of small bowel. Renal function worse today with Cr: 2.4 from 1.96. Objective Vital Signs Date Time Temp Pulse Resp B/P Pulse Ox O2 Delivery O2 Flow Rate FiO2 12/07/16 08:03 98 40 12/07/16 06:00 111 12/07/16 04:00 99.9 23 107/56 12/06/16 19:00 Mechanical Ventilator Intake and Output 12/06/16 12/06/16 12/07/16 08:00 16:00 00:00 Intake Total 433 ml 586 ml 1269 ml Output Total 250 ml 250 ml 300 ml Balance 183 ml 336 ml 969 ml Result Diagram: 12/07/16 0411 12/07/16 0411 Other Results Laboratory Tests Test 12/07/16 04:11 White Blood Count 8.0 TH/MM3 Red Blood Count 2.29 MIL/MM3 Hemoglobin 7.1 GM/DL Hematocrit 21.5 % Mean Corpuscular Volume 93.8 FL Mean Corpuscular Hemoglobin 30.8 PG Mean Corpuscular Hemoglobin 32.8 % Concent Red Cell Distribution Width 15.8 % Platelet Count 356 TH/MM3 Mean Platelet Volume 7.5 FL Neutrophils (%) (Auto) 85.4 % Lymphocytes (%) (Auto) 8.5 % Monocytes (%) (Auto) 5.8 % Eosinophils (%) (Auto) 0.1 % Basophils (%) (Auto) 0.2 % Neutrophils # (Auto) 6.8 TH/MM3 Lymphocytes # (Auto) 0.7 TH/MM3 Monocytes # (Auto) 0.5 TH/MM3 Eosinophils # (Auto) 0.0 TH/MM3 Basophils # (Auto) 0.0 TH/MM3 CBC Comment DIFF FINAL Differential Comment Sodium Level 146 MEQ/L Potassium Level 3.1 MEQ/L Chloride Level 112 MEQ/L Carbon Dioxide Level 23.2 MEQ/L Anion Gap 11 MEQ/L Blood Urea Nitrogen 62 MG/DL Creatinine 2.40 MG/DL Estimat Glomerular Filtration 28 ML/MIN Rate Random Glucose 96 MG/DL Calcium Level 8.3 MG/DL Phosphorus Level 5.6 MG/DL Magnesium Level 2.3 MG/DL Imaging Last Impressions Chest X-Ray 12/06/16 0600 Signed Impressions: Service Date/Time: Tuesday, December 06, 2016 04:02 - CONCLUSION: 1. Cardiomegaly 2. Patchy alveolar disease characteristic of edema or pneumonia. There has been no significant change when compared to the prior exam. Toribio Magana MD Small Bowel X-Ray 12/06/16 0000 Signed Impressions: Service Date/Time: Tuesday, December 06, 2016 16:55 - CONCLUSION: Distended loops of small bowel could be due to significant ileus versus partial small bowel obstruction and contrast gets into the colon at 13 hours. Reba Banerjee MD Abdomen Ultrasound 12/06/16 0000 Signed Impressions: Service Date/Time: Tuesday, December 06, 2016 11:31 - CONCLUSION: No free fluid is present. Agustin Bonner MD Abdomen/Pelvis CT 12/05/16 0000 Signed Impressions: Service Date/Time: November 23:28 - CONCLUSION: 1. Small bowel dilatation which may related to ileus or obstruction. The findings are similar to the prior exam. 2. Moderate ascites 3. Small pneumoperitoneum is present. Toribio Magana MD Abdomen X-Ray 12/05/16 0000 Signed Impressions: Service Date/Time: November 15:41 - CONCLUSION: Normal examination. G-tube overlies the upper abdomen. Sawyer Robertson MD Brain MRI 11/21/16 0000 Signed Impressions: Service Date/Time: November 12:33 - CONCLUSION: Multifocal areas of restricted diffusion primarily in the periventricular and subcortical white matter bilaterally but also cortically based in the right frontal lobe. Findings likely represent ischemic change likely related to septic emboli given the patient's clinical history. No abscess or enhancing lesion is visualized. Agustin Bonner MD Head CT 11/17/16 0600 Signed Impressions: Service Date/Time: Thursday, November 17, 2016 10:39 - CONCLUSION: No significant change has occurred. Deven Urrutia MD Chest CT 11/16/16 0000 Signed Impressions: Service Date/Time: Wednesday, November 16, 2016 20:36 - CONCLUSION: 1. New right chest tube in the posterior superior right pleural space. There continues to be a moderate right pleural effusion primarily seen at the base. Some degree of loculation may be present inferiorly. The effusion does not layer posteriorly. There are scattered punctate areas of air within the pleural space inferiorly on the right. There is a solitary small area of air within the mild left pleural effusion. 2. Numerous irregular masses seen throughout both lungs some which are cavitary. These are nonspecific. Inflammatory masses needs be suspected. The multiplicity raises possibility of septic emboli. Agustin Price MD CT Angiography 11/13/16 1328 Signed Impressions: Service Date/Time: Friday, November 13, 2016 15:50 - CONCLUSION: 1. Multiple cavitary lesions within both lungs with the largest measuring 9.5 cm in the right upper lobe. Differential diagnosis includes infectious and neoplastic etiologies. 2. Moderate sized right pleural effusion with adjacent compressive atelectasis and/or infiltrate. 3. Cardiomegaly and coronary artery calcifications. 4. Subcarinal mediastinal lymphadenopathy. 5. Degenerative changes throughout the thoracic spine. Jed Ponce MD Objective Remarks GENERAL: 56-year-old male, critically ill currently on ventilator via tracheostomy, SKIN: Warm and dry. Scattered skin lesions erythematous predominantly left lower extremity HEAD: Normocephalic and atraumatic. EYES: No injection, drainage. Pupils equally round and reactive around 3 mm ENT: No nasal drainage noted. Oropharynx is clear. NECK: Supple. No JVD or thyromegaly or lymphadenopathy. Tracheostomy is clean dry and intact CARDIOVASCULAR: RR. S1, S2. No S4. No murmur not appreciated. RESPIRATORY: B/L equal air entry GASTROINTESTINAL: Abdomen is distended, tympanic, no guarding MUSCULOSKELETAL: 1+ pitting edema bilateral lower extremities. Multiple erythematous raised lesions on bilateral lower extremity predominantly left lower leg NEUROLOGICAL: Patient is awake on the ventilator but encephalopathic Date of Insertion: Nov 16, 2016 Date of Removal: Nov 21, 2016 Line: Central Venous Catheter Side: Left Location: Internal, Jugular A/P Assessment and Plan NEURO/PSYCH: Metabolic encephalopathy Septic brain emboli Propofol and fentanyl for sedation and vent synchrony. Daily sedation vacation. Monitor neuro status Ativan 0.5 mg PO [id number]. EEG 11/24: Generalized encephalopathy without any significant epileptic activity. MRI brain 11/21: Ischemic changes throughout white matter likely related to septic emboli. Neuro Dr. Hernandez and has followed intermittently On Thiamine/MVI/Folic acid RESP: Bilateral cavitary lung lesions/most likely cavitating pneumonia from staph aureus Acute respiratory failure Large right loculated pleural effusion/empyema Left pleural effusion Anterior pneumothorax PRVC 18/600/1.0/5/40. Continue with vent support keep sat >90%. DuoNebs every 4 hours with albuterol nebs every 2 hours. Vent bundle.SBT daily as tiki Status post tracheostomy by Dr. Baker 11/29 Right-sided chest tube #28 Italian- placed back on suction due to pneumothorax on right 12/02 Left-sided chest tube #10 Italian- placed 11/24/16-removed 12/02 Right thoracentesis with 1 L cloudy yellow fluid removed, fluid cell studies WBC 2,600, Patient status post pigtail catheter placement 11/14, 445 cc prior pulled out . Evaluated by Dr. Samuels/CT surgery. Per his recommendations, No indication for decortication at this time CV: Aortic valve endocarditis/large vegetation Sinus tachycardia Atrial fibrillation with RVR early normal sinus rhythm Elevated troponin - likely rate dependent -Monitor HR and BP keep MAP>65mmHg - Hydrocortisone 25mg IV Q12- taper dose - 2-D echocardiogram revealed EF 55-60%. Moderate AR. CHANDNI revealed 17 mm x 17 millimeter mobile mass on aortic valve. - limited echo 11/22 Persistent vegetation - CT surgery. Recommendations no intervention at this time GI: Intra peritoneal free air. (Related to PEG or perforation). Ileus Hypoalbuminemia Moderate protein calorie malnutrition/acute SB series w/ Gastrografin showed distended SB loops- ileus vs partial bowel obstruction Repeat CT abdomen/pelvis 12/05- small pneumoperitoneum, small bowel dilation ( ileus vs obstruction) small pneumoperitoneum likely related to previous PEG tube placement, PEG tube to suction. GI/Surgery is following- Dr. Baker. CT abdomen 12/04 show intra peritoneal free air. ? related to PEG or perforation. IV Protonix for GI prophylaxis. MiraLAX twice a day for bowel regimen Reglan for bowel motility Prev CT of the abdomen pelvis with IV contrast revealed possible ileus., Gastric contraction at gastric duodenal junction. 2 mm renal cyst. GI is following; s/p PEG placement 11/29/16 : Monitor renal function, I/O's, electrolytes replacement per protocol. Cr increased 2.4 from 1.96 ,on D5NS @84ml/hr. On Free water 250ml Q8 Check renal US, diurese with Bumex 1mg x1, Renal eval. Will give KCL 40meq IV for K 3.1 ID: Severe sepsis Persistent fever Multilobar cavitating pneumonia secondary staph aureus Staph aureus empyema Aortic valve endocarditis - Continue with abx per ID ( Zosyn, Diflucan, Vanco, Ancef for endocarditis)- monitor for signs of infections ( Fever, WBC). - Pancultured 12/02/16. Pertinent cultures 11/13 - blood cultures 2 - staph aureus 11/13 and 11/14- pleural fluid- staph aureus 11/14- sputum- staph aureus 11/15 - blood cultures 2 -staph aureus 11/16 - Bronch samples: Staph Aureus 11/16 Sputum: Staph Aureus 11/19 - blood cultures 2 - no growth 11/23 - pleural fluid - no growth 11/24 - blood cultures 2 - no growth 11/25 - UA - negative 11/25 - sputum no growth 12/02: Urine C tropicalis HEME: Normocytic anemia - Monitor CBC, CMP, coags ENDO: SSI with accuchecks for glycemic control TSH 0.6. PROPH: - Bilateral lower extremity SCDs. Heparin SQ, IV Protonix for prophylaxis LINES: - peripheral IVs Palliative care is following Level 3 Noam Calhoun MD Dec 07, 2016 09:36
[2016-12-07] MEDS: POTASSIUM CHLOR 20 MEQ PREMIX 100 ML IV SCH ×2 (09:40→12:45)
[2016-12-07] MEDS: CHLORHEXIDINE 0.12% (ORAL KIT) 15 ML CUP MT SCH ×2 (09:41→21:51)
[2016-12-07] MEDS: DEXT 5%-NACL 0.9% 1000 ML INJ 1,000 ML IV SCH ×2 (09:41→22:00)
[2016-12-07] MEDS: THIAMINE INJ 100 MG in SODIUM CHLORIDE 0.9% INJ 100 ML IV SCH (09:41)
--- NOTE | 2016-12-07 11:46 | RADRPT ---
EXAM DATE/TIME: 12/07/2016 10:08 [facility] COMPARISON: No previous studies available for comparison. INDICATIONS : Acute renal failure. MEDICAL HISTORY : Dyspnea. Confusion. Sputum production. SURGICAL HISTORY : Left tibia. ENCOUNTER: Initial ACUITY: 1 day PAIN SCORE: Nonresponsive. LOCATION: Bilateral flank MEASUREMENTS: RIGHT KIDNEY: 12.1 x 7.0 x 6.0 cm LEFT KIDNEY: 12.5 x 5.7 x 6.4 cm FINDINGS: There is no hydronephrosis. No definite solid mass is identified. No definite stone is identified f or technique. The bladder is grossly intact for technique and not being completely distended during t he exam. There is a trace of ascites. CONCLUSION: Unremarkable renal ultrasound and a trace of ascites identified. Reba Banerjee MD on December 07, 2016 at 11:44 Board Certified Radiologist. This report was verified electronically.
[2016-12-07 11:52] LABS: HEMATOCRIT 22.6 % (39.0-51.0); REVIEW FLAG FINAL
[2016-12-07] MEDS: FLUCONAZOLE 200 MG PREMIX BAG 100 ML IV SCH (13:25)
[2016-12-07 16:03] LABS: BACTERIA, URINE OCC /hpf; BLOOD, URINE SMALL (NEG); GLUCOSE,URINE NEG (NEG); GRANULAR CAST, URINE 22 /lpf; KETONE, URINE NEG (NEG); MUCUS URINE FEW /lpf (OCC); NITRITE,URINE NEG (NEG); URINE COLOR YELLOW (YELLW/STRAW)
[2016-12-07 16:04] LABS: COMMENT (UR) CATH-CULTURE IND; CULTURE IF INDICATED CATH CULTURE IND
--- NOTE | 2016-12-07 17:29 | HHI.PR ---
Subjective Subjective Notes Not painful by nodding. Laying supine in bed. Objective Vitals/I&O Vital Signs Date Time Temp Pulse Resp B/P Pulse Ox O2 Delivery O2 Flow Rate FiO2 12/07/16 16:01 99 40 12/07/16 16:00 125 12/07/16 12:00 98.1 25 122/58 12/07/16 07:00 Mechanical Ventilator Labs Laboratory Tests Test 12/07/16 12/07/16 12/07/16 04:11 11:20 15:10 White Blood Count 8.0 Red Blood Count 2.29 Hemoglobin 7.1 7.2 Hematocrit 21.5 22.6 Mean Corpuscular Volume 93.8 Mean Corpuscular Hemoglobin 30.8 Mean Corpuscular Hemoglobin 32.8 Concent Red Cell Distribution Width 15.8 Platelet Count 356 Mean Platelet Volume 7.5 Neutrophils (%) (Auto) 85.4 Lymphocytes (%) (Auto) 8.5 Monocytes (%) (Auto) 5.8 Eosinophils (%) (Auto) 0.1 Basophils (%) (Auto) 0.2 Neutrophils # (Auto) 6.8 Lymphocytes # (Auto) 0.7 Monocytes # (Auto) 0.5 Eosinophils # (Auto) 0.0 Basophils # (Auto) 0.0 CBC Comment DIFF FINAL Differential Comment Sodium Level 146 Potassium Level 3.1 Chloride Level 112 Carbon Dioxide Level 23.2 Anion Gap 11 Blood Urea Nitrogen 62 Creatinine 2.40 Estimat Glomerular Filtration 28 Rate Random Glucose 96 Calcium Level 8.3 Phosphorus Level 5.6 Magnesium Level 2.3 Urine Color YELLOW Urine Turbidity CLOUDY Urine pH 5.0 Urine Specific [place] 1.016 Urine Protein 30 Urine Glucose (UA) NEG Urine Ketones NEG Urine Occult Blood SMALL Urine Nitrite NEG Urine Bilirubin NEG Urine Urobilinogen LESS THAN 2.0 Urine Leukocyte Esterase SMALL Urine RBC 1 Urine WBC 6 Urine WBC Clumps RARE Urine Amorphous Sediment RARE Urine Bacteria OCC Urine Granular Casts 22 Urine Mucus FEW Microscopic Urinalysis Comment CATH-CULTURE IND Urine Random Sodium 62 Date/Time Procedure Status Source Growth 12/07/16 16:20 Gram Stain Received Sputum Endotracheal Pending 12/07/16 16:20 Sputum Culture Received Sputum Endotracheal Pending 12/07/16 15:10 Urine Culture Received Urine Catheterized Urine Pending 12/02/16 20:15 Urine Culture - Final Complete Urine Catheterized Urine Marquita Tropicalis Abdomen: Non-tender, Other (Distended) A/P Assessment and Plan Assessment and Plan 56 year old male with multiple medical problems; s/p trach; now with distended abdomen and CT showing MINIMAL free air -Stable -Continue to follow abdominal exam -NPO -Repeat CT abd/pelvis shows small pneumoperitoneum; stable -Check decubitus KUB today due to distention -We will continue to monitor Krzysztof Davidson MD Dec 07, 2016 17:28
--- NOTE | 2016-12-07 17:57 | RADRPT ---
EXAM DATE/TIME: 12/07/2016 16:16 [facility] COMPARISON: No previous studies available for comparison. INDICATIONS : Free air. Distention. MEDICAL HISTORY : Endocarditis, weight loss, pneomothorax, sepsis. SURGICAL HISTORY : PEG tube. Trach. ENCOUNTER: Subsequent ACUITY: 1 day PAIN SCORE: Non-responsive. LOCATION: abdomen. FINDINGS: Limited Left lateral decubitus view of the abdomen demonstrates a normal bowel gas pattern. No free air is identified. No organomegaly is evident. Osseous structures are intact. CONCLUSION: Limited study but no free air seen. Jhoan Bishop MD on December 07, 2016 at 17:54 Board Certified Radiologist. This report was verified electronically.
[2016-12-07] MEDS: PROPOFOL 1000 MG/100 ML INJ 100 ML IV SCH (18:00)
[2016-12-07] MEDS: SODIUM CHLORIDE 0.9% FLUSH 10 ML FLUSH IV FLUSH PRN (21:51)
[2016-12-08] VITALS (36 sets, daily range): BP systolic 89–141; BP diastolic 54–69; PULSE 90–115; RESP 9–36; TEMP 98.1–101; O2SAT 95–100
[2016-12-08] MEDS: POTASSIUM CHLOR 20 MEQ PREMIX 100 ML IV SCH ×4 (00:11→05:52)
[2016-12-08] MEDS: PROPOFOL 1000 MG/100 ML INJ 100 ML IV SCH ×4 (00:15→19:09)
[2016-12-08] MEDS: PIPERACIL-TAZO 2.25 GM PREMIX 50 ML IV SCH ×2 (02:09→14:21)
[2016-12-08] MEDS: RESP: ALBUTEROL 2.5 MG/IPRATROPIUM 0.5 MG NEB (SCH) NEB ×4 (03:22→19:48)
[2016-12-08] MEDS: CHLORHEXIDINE GLUCONATE 2 % 1 PACK (2 CLOTHS) TOP SCH (04:00)
[2016-12-08] MEDS: INSULIN ASPART SUPPLEMENTAL SCALE SQ SCH ×4 (05:00→23:00)
[2016-12-08] MEDS: fentaNYL DRIP 250 ML IV SCH (05:16)
[2016-12-08] MEDS: FREE WATER G-TUBE SCH ×3 (05:52→21:31)
[2016-12-08] MEDS: ARTIFICIAL TEARS OPTH SOLN 15 ML BTL EACH EYE SCH ×3 (05:52→21:31)
[2016-12-08] MEDS: LORazepam 0.5 MG TAB PO SCH ×2 (05:52→17:26)
[2016-12-08] MEDS: PANTOPRAZOLE SODIUM 40 MG VIAL IV SCH ×2 (07:53→20:58)
[2016-12-08] MEDS: HYDROCORTISONE SOD SUCCINATE 100 MG VIAL IV PUSH SCH (07:53)
[2016-12-08] MEDS: LACTULOSE SYRUP 20 GM/30 ML CUP PO SCH (07:53)
[2016-12-08] MEDS: MULTIVITAMIN TAB PO SCH (07:54)
[2016-12-08] MEDS: FOLIC ACID 1 MG TAB PO SCH (07:54)
[2016-12-08] MEDS: SODIUM CHLORIDE 0.9% FLUSH 10 ML FLUSH IV FLUSH SCH ×2 (07:54→20:12)
[2016-12-08] MEDS: POLYETHYLENE GLYCOL 17 GM PKG PO SCH ×2 (07:54→21:31)
[2016-12-08] MEDS: HEPARIN SODIUM - SQ 10,000 UNITS/ML VIAL SQ SCH (07:54)
[2016-12-08] MEDS: SODIUM CHLORIDE 0.9% FLUSH 10 ML FLUSH IVF SCH (07:55)
[2016-12-08] MEDS: CHLORHEXIDINE 0.12% (ORAL KIT) 15 ML CUP MT SCH ×2 (07:56→20:12)
[2016-12-08] MEDS: THIAMINE INJ 100 MG in SODIUM CHLORIDE 0.9% INJ 100 ML IV SCH (08:12)
[2016-12-08] MEDS: DEXT 5%-NACL 0.9% 1000 ML INJ 1,000 ML IV SCH (09:47)
--- NOTE | 2016-12-08 10:34 | HHI.CCPN ---
Subjective Remarks/Hospital Course 56-year-old male is brought to the emergency department by EMS for evaluation of generalized weakness, confusion for about 2 weeks, and also increasing shortness of breath. His oxygen saturation was 88% on room air. EMS administered breathing treatments and Solu-Medrol 125 mg 1 and placed him on nasal cannula. Patient states that he had been sick for almost 10 days, but he is a poor historian. He had a productive cough, but reports no hematemesis or weight loss. He states that it was his neighbor who made him called EMS. He has no past medical history and last time had seen a doctor was about 15 years ago. He denies any fevers but reports some night sweats and chills. He was tachycardic with a heart rate of 115 bpm, had severe leukocytosis with a white count of 35,000 with 91% neutrophils. CMP shows hyponatremia with a sodium of 126. Lactic acid is 2.4. His Chest x-ray shows large 7.7 x 7.8 cm cavitary right midlung lesion with associated right-sided pleural effusion. Subcentimeter left mid lung pulmonary nodules. Patient received 1 L normal saline bolus and Zosyn 4.5 g and Zithromax 500 mg IV and was placed on TB/ respiratory isolation. He has been being in [facility] 2 years ago increasing his risk of tuberculosis. CT pulmonary angiogram negative for PE but showed multiple cavitary lesions within both lungs with the largest measuring 9.5 cm in the right upper lobe. Moderate size right pleural effusion. I evaluated the patient in the emergency department. Patient appears critically ill in moderate distress mildly tachypneic, sweating. I performed a bedside ultrasound which showed a right effusion which is large. The thoracentesis was performed and 1 L of cloudy dark pleural fluid was removed. Patient will be continued on Zosyn and Levaquin and vancomycin. ID consulted and I discussed with Dr. Steele-she recommended no empiric treatments for TB. 11/14/16: Patient seen and examined complaints of severe epigastric and periumbilical abdominal pain. Patient remains oriented to person. His white count is slightly improved from 35,000-28,9000. Na improved to 136. I have ordered a STAT CT abd/pelvis with IV contrast. Chest x-ray shows reaccumulation of right pleural effusion-fluid chemistries are pending but cell count indicates at least a parapneumonic effusion and patient will need a pigtail chest tube 11/15: Patient pulled his right-sided pigtail catheter out overnight last night. Currently nasal cannula in no acute distress. Afebrile. Continues to have a leukocytosis. 11/16: Currently on room air. Hold out his IVs reportedly overnight last night. Requesting diet. Awake and alert and following commands. 11/17: Intubated yesterday due to acute hypercapnic respiratory failure. Hypoxic post intubation requiring right chest tube placement, bronchoscopy and Flolan. Bronchoscopy revealed thick mucous plugging at bilateral right and left mainstem which were clear. Improved oxygenation over the past 12 hours. Afebrile. 11/18 Patient remains sedated with Diprivan, Fentanyl and intubated. On Vasopressin and Neosyn 120 mics. 11/19 Patient is sedated with Diprivan, Fentanyl and intubated. Afebrile. Off all pressors. Afebrile. WBC is trending down 30 today from 50. 11/20: Remains severely septic and encephalopathic even though weaned off all pressors. White count still elevated but trending down. Became extremely tachycardic and tachypneic on lowering sedation. We'll check MRI of the brain to rule out embolic infarct. Family at the bedside updated 11/21 Remains heavily sedated, remains encephalopathic. MRI brain is pending. Family is at bedside. Remains critically with resp failure severe from endocarditis, now unable to wean off the ventilator due to severe metabolic encephalopathy 11/22 No events overnight. Sedated with Diprivan, fentanyl and intubated. Afebrile. MRI brain yesterday showed ischemic changes likely related to septic emboli. 11/23: Patient remains encephalopathic, severe hyponatremia possible contributing , Na is 157 today. Currently on Precedex and fentanyl. CXR shows increasing L effusion 11/24: Patient more awake today. Follows Commands but did not tolerate spontaneous breathing trials. Had left pigtail chest tube placed yesterday 1.6 L transudative fluid removal since placement 11/25 Patient is sedated with Diprivan, Fentanyl and intubated. T:99.9 11/26 No events overnight. Sedated and intubated. Patient was on CPAP x 3 hrs yesterday then became tachypneic. 11/27: Resting in bed comfortably on Diprivan at 40 mics grams per kilogram per minute and fentanyl drip at 200 an hour. Tolerated PSV trial 2 hours yesterday before becoming tachypnea. Positive BM via fecal containment device 1100 cc. Yesterday according to RN was following commands. 11/28: Currently afebrile. Tolerating PSV trials 1.5 hours today for became tachypneic. Awake and alert and follows commands. Neurologically intact. Positive BM. 11/29: Tmax 99.6. Status post percutaneous tracheostomy secondary to failed extubation trials. Plan for PEG tube today. Awake and interactive the ventilator on sedation vacation. Subjective 11/30: DrAzael currently 98.8. Status post percutaneous tracheostomy Dr. Baker yesterday and PEG tube placement by Dr. Figueroa. Tube feeds will be resumed today. Otherwise appears comfortable ventilator. Arousable and follows commands on sedation vacation. 12/01: Patient becomes tachypneic on attempted CPAP, even with high pressure support. I will add by mouth Ativan to reduce IV sedation requirement. Decreasing chest tube output 12/02: Patient failed spontaneous breathing trial clinically today secondary to severe tachypnea and tachycardia. His spiking fever upto 103. Panculture blood , dose of vancomycin given. Most likely patient is getting new sepsis 12/03: Continued to spike fever up to 102. Dose of vancomycin was given yesterday. Patient tolerated CPAP for 3 hours today, remains encephalopathic though. 12/04: Patient more awake alert follows commands, tolerated CPAP but did not tolerate TPs. Abdomen significantly distended, KUB shows ileus. Continues to spike high fever. Diflucan vancomycin added by ID and continue Ancef 12/05: Abdomen remains distended, CT yesterday show intra abdominal free air. Unclear whether related to PEG or perforation. D/W with Dr. Baker, will get repeat CT with oral contrast today. Zosyn added by ID 12/06 Patient is sedated with Fentanyl and Diprivan. CT abdomen/pelvis yesterday sowed small bowel dilation ( ileus vs obstruction) 12/07 Patient remains intubated on low dose Diprivan and Fentanyl infusion however he is awake. Tolerated CPAP all day yesterday T: 100.0 last night. SB series showed distended loops of small bowel. Renal function worse today with Cr: 2.4 from 1.96. 12/08 No events overnight. On Diprivan and Fentanyl drip for sedation. T:99.9 last night. Objective Vital Signs Date Time Temp Pulse Resp B/P Pulse Ox O2 Delivery O2 Flow Rate FiO2 12/08/16 08:30 96 40 12/08/16 07:00 Mechanical Ventilator 12/08/16 06:00 103 27 105/58 12/08/16 00:00 99.0 Intake and Output 12/07/16 12/07/16 12/07/16 07:59 15:59 23:59 Intake Total 1045 ml 1537 ml 1289 ml Output Total 1200 ml 1500 ml 950 ml Balance -155 ml 37 ml 339 ml Result Diagram: 12/07/16 1120 12/07/162124 Other Results Laboratory Tests Test 12/07/16 12/07/16 12/07/16 11:20 15:10 21:25 Hemoglobin 7.2 GM/DL Hematocrit 22.6 % Urine Color YELLOW Urine Turbidity CLOUDY Urine pH 5.0 Urine Specific Sullivan 1.016 Urine Protein 30 mg/dL Urine Glucose (UA) NEG mg/dL Urine Ketones NEG mg/dL Urine Occult Blood SMALL Urine Nitrite NEG Urine Bilirubin NEG Urine Urobilinogen LESS THAN 2.0 MG/DL Urine Leukocyte Esterase SMALL Urine RBC 1 /hpf Urine WBC 6 /hpf Urine WBC Clumps RARE Urine Amorphous Sediment RARE Urine Bacteria OCC /hpf Urine Granular Casts 22 /lpf Urine Mucus FEW /lpf Microscopic Urinalysis Comment CATH-CULTURE IND Urine Eosinophils NONE SEEN /HPF Urine Osmolality 367 MOSM/KG Urine Random Sodium 62 MEQ/L Potassium Level 2.8 MEQ/L Imaging Last Impressions Renal Ultrasound 12/07/16 0000 Signed Impressions: Service Date/Time: Wednesday, December 07, 2016 10:08 - CONCLUSION: Unremarkable renal ultrasound and a trace of ascites identified. Reba Banerjee MD Abdomen X-Ray 12/07/16 0000 Signed Impressions: Service Date/Time: Wednesday, December 07, 2016 16:16 - CONCLUSION: Limited study but no free air seen. Jhoan Bishop MD Chest X-Ray 12/06/16 0600 Signed Impressions: Service Date/Time: Tuesday, December 06, 2016 04:02 - CONCLUSION: 1. Cardiomegaly 2. Patchy alveolar disease characteristic of edema or pneumonia. There has been no significant change when compared to the prior exam. Toribio Magana MD Small Bowel X-Ray 12/06/16 0000 Signed Impressions: Service Date/Time: Tuesday, December 06, 2016 16:55 - CONCLUSION: Distended loops of small bowel could be due to significant ileus versus partial small bowel obstruction and contrast gets into the colon at 13 hours. Reba Banerjee MD Abdomen Ultrasound 12/06/16 0000 Signed Impressions: Service Date/Time: Tuesday, December 06, 2016 11:31 - CONCLUSION: No free fluid is present. Agustin Bonner MD Abdomen/Pelvis CT 12/05/16 0000 Signed Impressions: Service Date/Time: November 23:28 - CONCLUSION: 1. Small bowel dilatation which may related to ileus or obstruction. The findings are similar to the prior exam. 2. Moderate ascites 3. Small pneumoperitoneum is present. Toribio Magana MD Brain MRI 11/21/16 0000 Signed Impressions: Service Date/Time: November 12:33 - CONCLUSION: Multifocal areas of restricted diffusion primarily in the periventricular and subcortical white matter bilaterally but also cortically based in the right frontal lobe. Findings likely represent ischemic change likely related to septic emboli given the patient's clinical history. No abscess or enhancing lesion is visualized. Agustin Bonner MD Head CT 11/17/16 0600 Signed Impressions: Service Date/Time: Thursday, November 17, 2016 10:39 - CONCLUSION: No significant change has occurred. Deven Urrutia MD Chest CT 11/16/16 0000 Signed Impressions: Service Date/Time: Wednesday, November 16, 2016 20:36 - CONCLUSION: 1. New right chest tube in the posterior superior right pleural space. There continues to be a moderate right pleural effusion primarily seen at the base. Some degree of loculation may be present inferiorly. The effusion does not layer posteriorly. There are scattered punctate areas of air within the pleural space inferiorly on the right. There is a solitary small area of air within the mild left pleural effusion. 2. Numerous irregular masses seen throughout both lungs some which are cavitary. These are nonspecific. Inflammatory masses needs be suspected. The multiplicity raises possibility of septic emboli. Agustin Price MD CT Angiography 11/13/16 1963 Signed Impressions: Service Date/Time: Sunday, November 13, 2016 15:50 - CONCLUSION: 1. Multiple cavitary lesions within both lungs with the largest measuring 9.5 cm in the right upper lobe. Differential diagnosis includes infectious and neoplastic etiologies. 2. Moderate sized right pleural effusion with adjacent compressive atelectasis and/or infiltrate. 3. Cardiomegaly and coronary artery calcifications. 4. Subcarinal mediastinal lymphadenopathy. 5. Degenerative changes throughout the thoracic spine. Jed Ponce MD Objective Remarks GENERAL: 56-year-old male, critically ill currently on ventilator via tracheostomy, SKIN: Warm and dry. Scattered skin lesions erythematous predominantly left lower extremity HEAD: Normocephalic and atraumatic. EYES: No injection, drainage. Pupils equally round and reactive around 3 mm ENT: No nasal drainage noted. Oropharynx is clear. NECK: Supple. No JVD or thyromegaly or lymphadenopathy. Tracheostomy is clean dry and intact CARDIOVASCULAR: RR. S1, S2. No S4. No murmur not appreciated. RESPIRATORY: B/L equal air entry GASTROINTESTINAL: Abdomen is distended, tympanic, no guarding MUSCULOSKELETAL: 1+ pitting edema bilateral lower extremities. Multiple erythematous raised lesions on bilateral lower extremity predominantly left lower leg NEUROLOGICAL: Patient is awake on the ventilator but encephalopathic Date of Insertion: Nov 16, 2016 Date of Removal: Nov 21, 2016 Line: Central Venous Catheter Side: Left Location: Internal, Jugular A/P Assessment and Plan NEURO/PSYCH: Metabolic encephalopathy Septic brain emboli Propofol and fentanyl for sedation and vent synchrony. Daily sedation vacation. Monitor neuro status Ativan 0.5 mg PO [id number]. EEG 11/24: Generalized encephalopathy without any significant epileptic activity. MRI brain 11/21: Ischemic changes throughout white matter likely related to septic emboli. Neuro Dr. Hernandez and has followed intermittently On Thiamine/MVI/Folic acid RESP: Bilateral cavitary lung lesions/most likely cavitating pneumonia from staph aureus Acute respiratory failure Large right loculated pleural effusion/empyema Left pleural effusion Anterior pneumothorax PRVC 18/600/1.0/540. Continue with vent support keep sat >90%. DuoNebs every 4 hours with albuterol nebs every 2 hours. Vent bundle.SBT daily as tiki Status post tracheostomy by Dr. Baker 11/29 Right-sided chest tube #28 Polish-monitor CT drainage Left-sided chest tube #10 Polish- placed 11/24/16-removed 12/02 Right thoracentesis with 1 L cloudy yellow fluid removed, fluid cell studies WBC 2,600, Patient status post pigtail catheter placement 11/14, 445 cc prior pulled out . Evaluated by Dr. Samuels/CT surgery. Per his recommendations, No indication for decortication at this time CV: Aortic valve endocarditis/large vegetation Sinus tachycardia Atrial fibrillation with RVR early normal sinus rhythm Elevated troponin - likely rate dependent -Monitor HR and BP keep MAP>65mmHg - Hydrocortisone 25mg IV Q12- taper dose - 2-D echocardiogram revealed EF 55-60%. Moderate AR. CHANDNI revealed 17 mm x 17 millimeter mobile mass on aortic valve. - limited echo 11/22 Persistent vegetation - CT surgery. Recommendations no intervention at this time GI: Intra peritoneal free air. (Related to PEG or perforation). Ileus Hypoalbuminemia Moderate protein calorie malnutrition/acute Keep NPO SB series w/ Gastrografin showed distended SB loops- ileus vs partial bowel obstruction Repeat CT abdomen/pelvis 12/05- small pneumoperitoneum, small bowel dilation ( ileus vs obstruction) small pneumoperitoneum likely related to previous PEG tube placement, PEG tube to suction. GI/Surgery is following- Dr. Baker. CT abdomen 12/04 show intra peritoneal free air. ? related to PEG or perforation. IV Protonix for GI prophylaxis. MiraLAX twice a day for bowel regimen Reglan for bowel motility Prev CT of the abdomen pelvis with IV contrast revealed possible ileus., Gastric contraction at gastric duodenal junction. 2 mm renal cyst. GI is following; s/p PEG placement 11/29/16 : Monitor renal function, I/O's, electrolytes replacement as needed. Receiving K replacement K 2.8 last night. On D5NS @84ml/hr. On Free water 250ml Q8, follow up on BMP Renal US: unremarkable, renal is following- Dr. Mireles ID: Severe sepsis Persistent fever Multilobar cavitating pneumonia secondary staph aureus Staph aureus empyema Aortic valve endocarditis - Continue with abx per ID ( Zosyn, Diflucan, Vanco, Ancef for endocarditis)- monitor for signs of infections ( Fever, WBC). - Pancultured 12/07/16 ( Blood, sputum, urine) Pertinent cultures 11/13 - blood cultures 2 - staph aureus 11/13 and 11/14- pleural fluid- staph aureus 11/14- sputum- staph aureus 11/15 - blood cultures 2 -staph aureus 11/16 - Bronch samples: Staph Aureus 11/16 Sputum: Staph Aureus 11/19 - blood cultures 2 - no growth 11/23 - pleural fluid - no growth 11/24 - blood cultures 2 - no growth 11/25 - UA - negative 11/25 - sputum no growth 12/02: Urine C tropicalis HEME: Normocytic anemia - Monitor CBC, CMP, coags ENDO: SSI with accuchecks for glycemic control TSH 0.6. PROPH: - Bilateral lower extremity SCDs. Heparin SQ, IV Protonix for prophylaxis LINES: - peripheral IVs Palliative care is following Level 3 Noam Calhoun MD Dec 08, 2016 10:33
--- NOTE | 2016-12-08 11:21 | HHI.NPPN ---
Subjective General Problems: Anemia, Edema, Hypotension Renal Failure: Acute History of Present Illness This is 56 years old male, with Resp. failure, post tracheostomy, develop MENDY. Additional Remarks Patient remain on the vent, open eyes on command, not following. Objective Data Data 12/07/16 12/08/16 19:00 07:00 Intake Total 1537 ml 2510 ml Output Total 1500 ml 1750 ml Balance 37 ml 760 ml Intake Oral 0 ml IV Total 1287 ml 1660 ml Other 250 ml 850 ml Output Urine Total 550 ml 750 ml Stool Total 800 ml 800 ml Gastric Drainage Total 150 ml 200 ml Chest Tube Drainage Total 0 ml 0 ml Vital Signs Date Time Temp Pulse Resp B/P Pulse Ox O2 Delivery O2 Flow Rate FiO2 12/08/16 11:06 100 40 12/08/16 10:00 106 12/08/16 08:30 96 40 12/08/16 08:00 40 12/08/16 08:00 98.1 97 19 89/54 99 12/08/16 08:00 90 12/08/16 07:00 100 Mechanical Ventilator 12/08/16 06:00 103 27 105/58 100 12/08/16 06:00 100 12/08/16 05:55 100 40 12/08/16 05:30 104 36 106/58 99 12/08/16 05:00 106 24 114/58 100 12/08/16 04:30 106 21 117/56 100 12/08/16 04:00 106 26 119/58 100 12/08/16 04:00 102 12/08/16 04:00 40 12/08/16 03:22 95 40 12/08/16 03:00 99 23 100 12/08/16 02:30 99 25 99 12/08/16 02:00 101 12 119/58 99 12/08/16 02:00 103 12/08/16 01:30 102 17 122/60 99 12/08/16 01:00 104 16 125/58 99 12/08/16 00:30 105 23 124/60 97 12/08/16 00:00 105 12/08/16 00:00 99.0 109 9 128/61 98 12/08/16 00:00 40 12/07/16 22:47 99 40 12/07/16 22:30 104 9 123/58 99 12/07/16 22:00 104 20 122/56 98 12/07/16 22:00 102 12/07/16 21:30 105 20 125/58 97 12/07/16 21:00 105 21 123/58 97 12/07/16 20:30 110 22 129/58 97 12/07/16 20:00 100 12/07/16 20:00 40 12/07/16 20:00 99.9 109 22 127/58 98 12/07/16 19:39 98 40 12/07/16 19:00 98 Mechanical Ventilator 12/07/16 18:00 112 12/07/16 16:01 99 40 12/07/16 16:00 125 12/07/16 16:00 40 12/07/16 16:00 98.7 123 28 126/61 99 12/07/16 15:00 122 12/07/16 14:00 123 12/07/16 12:00 113 12/07/16 12:00 40 12/07/16 12:00 98.1 113 25 122/58 99 12/07/16 11:38 99 40 -: 12/07/16 1120 12/07/16 2125 Microbiology 12/07/16 Urine Culture, Received Pending 12/07/16 Gram Stain - Final, Resulted 12/07/16 Sputum Culture, Resulted Pending 12/07/16 Aerobic Blood Culture, Received Pending 12/07/16 Anaerobic Blood Culture, Received Pending 12/07/16 Aerobic Blood Culture, Received Pending 12/07/16 Anaerobic Blood Culture, Received Pending Physical Exam General Appearance Remarks On the vent. with Trach., open eyes spontaneously. Eyes Eye Exam: Pupils Equal Throat Throat Exam: Oral Mucosa [place] & Moist Neck Neck Exam: Neck Supple Pulmonary Resp Exam: No Distress, Crackles, Rhonchi, Decreased Bases, Diminished Breath Sounds Cardiology CV Exam: Tachycardia Gastrointestinal/Abdomen GI Exam: Soft, Non-Tender, Bowel Sounds Present, Distended Extremeties Extremities Exam: Moderate Edema, Pitting Edema, Dependent Edema Neurologic Neuro Exam: Obtunded Assessment/Plan Assessment Summary: MENDY/Acute Renal Failure, Hypotension Problem List: (1) Leukocytosis (2) Acute respiratory insufficiency (3) Sepsis (4) multiple pulmonary cavitary lesions (5) severe encephalopathy, likely due to sepsis and multiple embolic infarctions (6) Acute kidney injury Plan Patient has increase in the Creatinine. Urine out put is better. BP is still on lower side, but better. Urine Na. is normal, most likely has ATN causing MENDY. Continue antibiotics and IVF. Avoid Nephrotoxins. Follow the urine out put and BMP. D/W the family at bed side. Problem Qualifiers (1) Sepsis: Qualified Code: A41.9 - Sepsis, due to unspecified organism Otoniel Mireles MD Dec 08, 2016 11:21
--- NOTE | 2016-12-08 11:58 | HHI.GIFU ---
Subjective Remarks Lying in bed in no distress. Awake on vent. (Alma Rosa Ge) Objective Vitals I&O Vital Signs Date Time Temp Pulse Resp B/P Pulse Ox O2 Delivery O2 Flow Rate FiO2 12/08/16 11:06 100 40 12/08/16 10:00 106 12/08/16 08:30 96 40 12/08/16 08:00 40 12/08/16 08:00 98.1 97 19 89/54 99 12/08/16 08:00 90 12/08/16 07:00 100 Mechanical Ventilator 12/08/16 06:00 103 27 105/58 100 12/08/16 06:00 100 12/08/16 05:55 100 40 12/08/16 05:30 104 36 106/58 99 12/08/16 05:00 106 24 114/58 100 12/08/16 04:30 106 21 117/56 100 12/08/16 04:00 106 26 119/58 100 12/08/16 04:00 102 12/08/16 04:00 40 12/08/16 03:22 95 40 12/08/16 03:00 99 23 100 12/08/16 02:30 99 25 99 12/08/16 02:00 101 12 119/58 99 12/08/16 02:00 103 12/08/16 01:30 102 17 122/60 99 12/08/16 01:00 104 16 125/58 99 12/08/16 00:30 105 23 124/60 97 12/08/16 00:00 105 12/08/16 00:00 99.0 109 9 128/61 98 12/08/16 00:00 40 12/07/16 22:47 99 40 12/07/16 22:30 104 9 123/58 99 12/07/16 22:00 104 20 122/56 98 12/07/16 22:00 102 12/07/16 21:30 105 20 125/58 97 12/07/16 21:00 105 21 123/58 97 12/07/16 20:30 110 22 129/58 97 12/07/16 20:00 100 12/07/16 20:00 40 12/07/16 20:00 99.9 109 22 127/58 98 12/07/16 19:39 98 40 12/07/16 19:00 98 Mechanical Ventilator 12/07/16 18:00 112 12/07/16 16:01 99 40 12/07/16 16:00 125 12/07/16 16:00 40 12/07/16 16:00 98.7 123 28 126/61 99 12/07/16 15:00 122 12/07/16 14:00 123 12/07/16 12:00 113 12/07/16 12:00 40 12/07/16 12:00 98.1 113 25 122/58 99 I/O 12/07/16 12/07/16 12/07/16 12/08/16 12/08/16 12/08/16 07:00 15:00 23:00 07:00 15:00 23:00 Intake Total 1045 ml 1537 ml 1289 ml 1221 ml Output Total 1200 ml 1500 ml 950 ml 800 ml Balance -155 ml 37 ml 339 ml 421 ml Intake Oral 0 ml 0 ml IV Total 845 ml 1287 ml 789 ml 871 ml Other 200 ml 250 ml 500 ml 350 ml Output Urine Total 300 ml 550 ml 350 ml 400 ml Stool Total 900 ml 800 ml 600 ml 200 ml Gastric Drainage Total 150 ml 0 ml 200 ml Chest Tube Drainage Total 0 ml 0 ml 0 ml Laboratory Laboratory Tests Test 12/07/16 12/07/16 15:10 21:25 Urine Color YELLOW Urine Turbidity CLOUDY Urine pH 5.0 Urine Specific [place] 1.016 Urine Protein 30 Urine Glucose (UA) NEG Urine Ketones NEG Urine Occult Blood SMALL Urine Nitrite NEG Urine Bilirubin NEG Urine Urobilinogen LESS THAN 2.0 Urine Leukocyte Esterase SMALL Urine RBC 1 Urine WBC 6 Urine WBC Clumps RARE Urine Amorphous Sediment RARE Urine Bacteria OCC Urine Granular Casts 22 Urine Mucus FEW Microscopic Urinalysis Comment CATH-CULTURE IND Urine Eosinophils NONE SEEN Urine Osmolality 367 Urine Random Sodium 62 Potassium Level 2.8 Date/Time Procedure Status Source Growth 12/07/16 21:25 Aerobic Blood Culture - Preliminary Resulted Blood Peripheral NO GROWTH IN 1 DAY 12/07/16 21:25 Anaerobic Blood Culture - Preliminary Resulted Blood Peripheral NO GROWTH IN 1 DAY 12/07/16 16:20 Gram Stain - Final Resulted Sputum Endotracheal 12/07/16 16:20 Sputum Culture Resulted Sputum Endotracheal Pending 12/07/16 15:10 Urine Culture Received Urine Catheterized Urine Pending Imaging Last Impressions Renal Ultrasound 12/07/16 0000 Signed Impressions: Service Date/Time: Wednesday, December 07, 2016 10:08 - CONCLUSION: Unremarkable renal ultrasound and a trace of ascites identified. Reba Banerjee MD Abdomen X-Ray 12/07/16 0000 Signed Impressions: Service Date/Time: Wednesday, December 07, 2016 16:16 - CONCLUSION: Limited study but no free air seen. Jhoan Bishop MD Chest X-Ray 12/06/16 0600 Signed Impressions: Service Date/Time: Tuesday, December 06, 2016 04:02 - CONCLUSION: 1. Cardiomegaly 2. Patchy alveolar disease characteristic of edema or pneumonia. There has been no significant change when compared to the prior exam. Toribio Magana MD Small Bowel X-Ray 12/06/16 0000 Signed Impressions: Service Date/Time: Tuesday, December 06, 2016 16:55 - CONCLUSION: Distended loops of small bowel could be due to significant ileus versus partial small bowel obstruction and contrast gets into the colon at 13 hours. Reba Banerjee MD Abdomen Ultrasound 12/06/16 0000 Signed Impressions: Service Date/Time: Tuesday, December 06, 2016 11:31 - CONCLUSION: No free fluid is present. Agustin Bonner MD Abdomen/Pelvis CT 12/05/16 0000 Signed Impressions: Service Date/Time: November 23:28 - CONCLUSION: 1. Small bowel dilatation which may related to ileus or obstruction. The findings are similar to the prior exam. 2. Moderate ascites 3. Small pneumoperitoneum is present. Toribio Magana MD Brain MRI 11/21/16 0000 Signed Impressions: Service Date/Time: November 12:33 - CONCLUSION: Multifocal areas of restricted diffusion primarily in the periventricular and subcortical white matter bilaterally but also cortically based in the right frontal lobe. Findings likely represent ischemic change likely related to septic emboli given the patient's clinical history. No abscess or enhancing lesion is visualized. Agustin Bonner MD Head CT 11/17/16 0600 Signed Impressions: Service Date/Time: Thursday, November 17, 2016 10:39 - CONCLUSION: No significant change has occurred. Deven Urrutia MD Chest CT 11/16/16 0000 Signed Impressions: Service Date/Time: Wednesday, November 16, 2016 20:36 - CONCLUSION: 1. New right chest tube in the posterior superior right pleural space. There continues to be a moderate right pleural effusion primarily seen at the base. Some degree of loculation may be present inferiorly. The effusion does not layer posteriorly. There are scattered punctate areas of air within the pleural space inferiorly on the right. There is a solitary small area of air within the mild left pleural effusion. 2. Numerous irregular masses seen throughout both lungs some which are cavitary. These are nonspecific. Inflammatory masses needs be suspected. The multiplicity raises possibility of septic emboli. Agustin Price MD CT Angiography 11/13/16 1328 Signed Impressions: Service Date/Time: Sunday, November 13, 2016 15:50 - CONCLUSION: 1. Multiple cavitary lesions within both lungs with the largest measuring 9.5 cm in the right upper lobe. Differential diagnosis includes infectious and neoplastic etiologies. 2. Moderate sized right pleural effusion with adjacent compressive atelectasis and/or infiltrate. 3. Cardiomegaly and coronary artery calcifications. 4. Subcarinal mediastinal lymphadenopathy. 5. Degenerative changes throughout the thoracic spine. Jed Ponce MD Physical Exam HEENT: Normocephalic; atraumatic. PERRLA. Tracheostomy is CDI. CHEST: Trach to vent, course breath sounds. CARDIAC: RRR RESPIRATORY: CTA ABDOMEN: Abdomen tympanic, distended, no guarding. Bowel sounds present EXTREMITIES: 1+ pitting edema bilateral LE. SKIN: Warm/dry ALLOCATION ANALYST: Awake, follows commands, On ventilator via tracheostomy. (Alma Rosa Ge) Assessment and Plan Plan ASSESSMENT - Abdominal distention, worsening. Abdomen X-Ray (12/04/16)-----> Dilatation of the small bowel with a pattern suggesting small bowel obstruction. Pt with significant distention, tympanic abdomen. (+) Stool. KUB with possible SBO. Abdomen/Pelvis CT (12/04/16)----> 1. Free air in the abdomen of uncertain etiology. It is unlikely to be related to the pneumothorax. The patient does have a new G-tube. 2. Dilated small bowel proximally although the only real area of wall thickening in the jejunum that I see is proximal to the small bowel distention. The distal small bowel is not nearly as distended but I don't see an obvious transition zone. There is a normal amount of stool in the right colon. 3. Right-sided pneumothorax despite the placement of a chest tube anteriorly. Moderate sized left pleural effusion. 4. The free air was relayed to the nurse practitioner shortly after the completion of the study. Rpt CT scan abdomen and pelvis with PO contrast (12/05/16)------> 1. Small bowel dilatation which may related to ileus or obstruction. The findings are similar to the prior exam. 2. Moderate ascites 3. Small pneumoperitoneum is present. Suspect severe ileus with small pneumoperitoneum from PEG tube placement. GS following. Continues to have significant distention. Small Bowel X-Ray --Distended loops of small bowel could be due to significant ileus versus partial small bowel obstruction and contrast gets into the colon at 13 hours. Abdomen X-Ray 12/07/16-- Limited study but no free air seen. Abdomen Ultrasound 12/06/16--No free fluid is present. - Abdominal pain. No guarding on abdominal palpation. SBFT as above. PPI. - Abnormal imaging with persistent luminal narrowing at the gastroduodenal junction without definite focal mass- okay on EGD. S/P EGD with PEG placement (11/29/16)-----> normal esophagus, normal stomach, normal duodenum, successful PEG tube placement - Anemia. Likely multifactorial. No active bleeding. HH 7.2/.6. - Elevated alk phosphatase. Normalized. Hepatitis panel negative. T. Bili 0.7, AST 12, ALT < 6, ALk PHosph 66. - Bilateral cavitary lung lesions, right sided pleural effusion. CT Angiography (11/13/16)----> 1. Multiple cavitary lesions within both lungs with the largest measuring 9.5 cm in the right upper lobe. Differential diagnosis includes infectious and neoplastic etiologies. 2. Moderate sized right pleural effusion with adjacent compressive atelectasis and/or infiltrate. 3. Cardiomegaly and coronary artery calcifications. 4. Subcarinal mediastinal lymphadenopathy. Degenerative changes throughout the thoracic spine. S/P CT , but pt pulled out on 11/15. Pleural fluid with staphylococcus aureus. CT replaced. He became tachypneic on 11/[address] chest (11/16/16) ---> Right hydropneumothorax and bilateral cavitary masses greatest in the right upper lobe. CXR as above. Pulm/ID/CCM following. Zosyn, diflucan - Sepsis with endocarditis and septic emboli. Abnormal 2D echo with moderate aortic regurgitation and CHANDNI with large vegetation. S/P CVT evaluation, no plans for surgical intervention at this time. Brain MRI (11/21/16)-----> Multifocal areas of restricted diffusion primarily in the periventricular and subcortical white matter bilaterally but also cortically based in the right frontal lobe. Findings likely represent ischemic change likely related to septic emboli given the patient's clinical history. No abscess or enhancing lesion is visualized. Abx per ID/CCM. Zosyn, diflucan. WBC 8 - Respiratory failure - per CCM s/p bronch, chest tube insertion, intubation PLAN: - NPO - PEG to LIWS - Miralax BID - Monitor stool output - Abx per ID/CCM - CCM following - ID following - GS following - Supportive care - Further recommendations to follow based on results of above Patient seen and examined by Dr. Magallon and myself and this note is written on his behalf (Alma Rosa Ge) Physician Comments seen, examined agree with above monitor closely (Brisa Magallon MD) Alma Rosa Ge Dec 08, 2016 11:58 Brisa Magallon MD Dec 08, 2016 14:46
--- NOTE | 2016-12-08 13:41 | HHI.IDPN ---
Note Infectious Disease Note ID COVERAGE Chart reviewed. is a 56 y/o CM who presented to the emergency department with a 2-week history of generalized weakness and feeling unwell. He was noted to have low oxygen saturation. He reported that he had productive cough over the past couple of weeks and was experiencing shortness of breath. Patient is AAOx3 and reports to me that he has never had prior endocarditis before. 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 He denies any injuries. He denies any IVDA or drug abuse in general. He denies any skin lesions. Upon review of chart it appears patient is being treated for TV endocarditis, septic lung emboli, empyema (s/p pigtail catheter which patient pulled out accidentally). Large vegetation on AV and moderate aortic regurg on CHANDNI. Culture of blood 11/14 - Staph aureus (MSSA) Culture of pleural fluid 11/14 - staph aureus. Notes reviewed Temps better On CPAP Awake and alert R CT in place Creatinine rising, has good UO PAST HISTORY Unremarkable ALLERGIES NO KNOWN DRUG ALLERGIES. ANTIBIOTICS: Ancef. Pip/Tazo. Diflucan. OBJECTIVE: Vital Signs Date Time Temp Pulse Resp B/P Pulse Ox O2 Delivery O2 Flow Rate FiO2 12/07/16 12:00 113 12/07/16 12:00 40 12/07/16 12:00 98.1 113 25 122/58 99 12/07/16 11:38 99 40 12/07/16 10:00 111 12/07/16 08:03 98 40 12/07/16 08:00 110 12/07/16 08:00 40 12/07/16 08:00 98.9 110 13 113/56 98 12/07/16 07:00 99 Mechanical Ventilator 12/07/16 06:22 98 40 12/07/16 06:00 111 12/07/16 04:00 107 12/07/16 04:00 40 12/07/16 04:00 99.9 107 23 107/56 98 12/07/16 02:12 98 40 12/07/16 02:00 103 12/07/16 00:00 112 12/07/16 00:00 40 12/07/16 00:00 100.2 112 18 103/53 98 12/06/16 22:44 96 40 12/06/16 22:00 123 12/06/16 20:00 100.0 107 18 96/52 98 12/06/16 20:00 40 12/06/16 20:00 107 12/06/16 19:32 98 40 12/06/16 19:00 98 Mechanical Ventilator 12/06/16 18:00 111 12/06/16 16:50 100 12/06/16 16:24 100 40 12/06/16 16:00 40 12/06/16 16:00 119 12/06/16 16:00 119 25 111/54 98 12/06/16 14:30 121 22 102/53 98 12/06/16 14:30 121 12/06/16 14:00 122 19 102/54 97 12/06/16 14:00 122 12/06/16 13:30 125 12/06/16 13:30 125 24 103/56 98 12/06/16 13:00 120 12/06/16 13:00 120 23 105/52 96 Vital Signs Date Time Temp Pulse Resp B/P Pulse Ox O2 Delivery O2 Flow Rate FiO2 12/05/16 14:00 107 12/05/16 13:15 98 50 12/05/16 12:00 50 12/05/16 12:00 99.9 12/05/16 12:00 99.9 113 24 124/59 99 12/05/16 12:00 113 12/05/16 10:14 98 50 12/05/16 10:00 107 12/05/16 09:30 50 12/05/16 09:00 97 Mechanical Ventilator 50 12/05/16 08:00 104 12/05/16 08:00 40 12/05/16 08:00 99.5 104 24 102/51 92 12/05/16 07:52 93 40 12/05/16 07:00 91 Mechanical Ventilator 40 12/05/16 06:00 112 12/05/16 04:29 100 40 12/05/16 04:00 107 12/05/16 04:00 100.8 107 25 102/50 100 12/05/16 04:00 40 12/05/16 02:00 112 12/05/16 00:29 99 40 12/05/16 00:00 40 12/05/16 00:00 101.2 105 25 95/48 98 12/05/16 00:00 105 12/04/16 22:00 111 12/04/16 21:06 98 40 12/04/16 20:00 99.4 105 24 102/50 97 12/04/16 20:00 40 12/04/16 20:00 105 12/04/16 19:00 97 Mechanical Ventilator 40 12/04/16 18:00 109 12/04/16 16:18 100 40 12/04/16 16:10 100 100 12/04/16 16:00 99.1 101 21 100/50 99 12/04/16 16:00 101 12/04/16 16:00 40 Laboratory Tests Test 12/06/16 12/07/16 12/07/16 04:51 04:11 11:20 White Blood Count 12.0 TH/MM3 8.0 TH/MM3 Red Blood Count 2.73 MIL/MM3 2.29 MIL/MM3 Hemoglobin 8.0 GM/DL 7.1 GM/DL 7.2 GM/DL Hematocrit 25.8 % 21.5 % 22.6 % Mean Corpuscular Volume 94.2 FL 93.8 FL Mean Corpuscular Hemoglobin 29.3 PG 30.8 PG Mean Corpuscular Hemoglobin 31.1 % 32.8 % Concent Red Cell Distribution Width 16.1 % 15.8 % Platelet Count 356 TH/MM3 356 TH/MM3 Mean Platelet Volume 7.2 FL 7.5 FL Neutrophils (%) (Auto) 86.0 % 85.4 % Lymphocytes (%) (Auto) 7.8 % 8.5 % Monocytes (%) (Auto) 5.5 % 5.8 % Eosinophils (%) (Auto) 0.4 % 0.1 % Basophils (%) (Auto) 0.3 % 0.2 % Neutrophils # (Auto) 10.3 TH/MM3 6.8 TH/MM3 Lymphocytes # (Auto) 0.9 TH/MM3 0.7 TH/MM3 Monocytes # (Auto) 0.7 TH/MM3 0.5 TH/MM3 Eosinophils # (Auto) 0.0 TH/MM3 0.0 TH/MM3 Basophils # (Auto) 0.0 TH/MM3 0.0 TH/MM3 CBC Comment DIFF FINAL DIFF FINAL Differential Comment Laboratory Tests Test 12/05/16 12/06/16 12/07/16 16:30 04:51 04:11 Potassium Level 4.1 MEQ/L 3.8 MEQ/L 3.1 MEQ/L Lactic Acid Level 0.8 mmol/L Sodium Level 143 MEQ/L 146 MEQ/L Chloride Level 107 MEQ/L 112 MEQ/L Carbon Dioxide Level 23.7 MEQ/L 23.2 MEQ/L Anion Gap 12 MEQ/L 11 MEQ/L Blood Urea Nitrogen 58 MG/DL 62 MG/DL Creatinine 1.96 MG/DL 2.40 MG/DL Estimat Glomerular Filtration 36 ML/MIN 28 ML/MIN Rate Random Glucose 85 MG/DL 96 MG/DL Calcium Level 8.1 MG/DL 8.3 MG/DL Total Bilirubin 0.7 MG/DL Aspartate Amino Transf 12 U/L (AST/SGOT) Alanine Aminotransferase LESS THAN 6 U/L (ALT/SGPT) Alkaline Phosphatase 66 U/L Total Protein 5.9 GM/DL Albumin 1.1 GM/DL Phosphorus Level 5.6 MG/DL Magnesium Level 2.3 MG/DL Laboratory Tests Test 12/04/16 12/05/16 16:57 05:04 White Blood Count 12.3 TH/MM3 13.2 TH/MM3 Red Blood Count 2.71 MIL/MM3 2.72 MIL/MM3 Hemoglobin 8.3 GM/DL 8.4 GM/DL Hematocrit 25.5 % 25.5 % Mean Corpuscular Volume 94.1 FL 93.8 FL Mean Corpuscular Hemoglobin 30.7 PG 30.9 PG Mean Corpuscular Hemoglobin 32.6 % 32.9 % Concent Red Cell Distribution Width 15.6 % 15.3 % Platelet Count 294 TH/MM3 301 TH/MM3 Mean Platelet Volume 7.5 FL 7.7 FL Neutrophils (%) (Auto) 87.9 % 87.4 % Lymphocytes (%) (Auto) 8.1 % 8.1 % Monocytes (%) (Auto) 3.7 % 3.9 % Eosinophils (%) (Auto) 0.1 % 0.0 % Basophils (%) (Auto) 0.2 % 0.6 % Neutrophils # (Auto) 10.8 TH/MM3 11.5 TH/MM3 Lymphocytes # (Auto) 1.0 TH/MM3 1.1 TH/MM3 Monocytes # (Auto) 0.5 TH/MM3 0.5 TH/MM3 Eosinophils # (Auto) 0.0 TH/MM3 0.0 TH/MM3 Basophils # (Auto) 0.0 TH/MM3 0.1 TH/MM3 CBC Comment DIFF FINAL DIFF FINAL Differential Comment Laboratory Tests Test 12/04/16 12/05/16 17:18 05:04 Lactic Acid Level 1.0 mmol/L Sodium Level 145 MEQ/L Potassium Level 3.5 MEQ/L Chloride Level 110 MEQ/L Carbon Dioxide Level 24.7 MEQ/L Anion Gap 10 MEQ/L Blood Urea Nitrogen 48 MG/DL Creatinine 1.41 MG/DL Estimat Glomerular Filtration 52 ML/MIN Rate Random Glucose 86 MG/DL Calcium Level 8.0 MG/DL Magnesium Level 2.0 MG/DL Total Bilirubin 0.9 MG/DL Aspartate Amino Transf 11 U/L (AST/SGOT) Alanine Aminotransferase LESS THAN 6 U/L (ALT/SGPT) Alkaline Phosphatase 70 U/L Total Protein 5.7 GM/DL Albumin 1.1 GM/DL Microbiology Date/Time Procedure Status Source Growth 12/02/16 20:15 Urine Culture - Final Complete Urine Catheterized Urine Marquita Tropicalis IMAGING Renal Ultrasound 12/07/16 0000 Signed Impressions: Service Date/Time: Wednesday, December 07, 2016 10:08 - CONCLUSION: Unremarkable renal ultrasound and a trace of ascites identified. Reba Banerjee MD Chest X-Ray 12/06/16 0600 Signed Impressions: Service Date/Time: Tuesday, December 06, 2016 04:02 - CONCLUSION: 1. Cardiomegaly 2. Patchy alveolar disease characteristic of edema or pneumonia. There has been no significant change when compared to the prior exam. Toribio Magana MD Small Bowel X-Ray 12/06/16 0000 Signed Impressions: Service Date/Time: Tuesday, December 06, 2016 16:55 - CONCLUSION: Distended loops of small bowel could be due to significant ileus versus partial small bowel obstruction and contrast gets into the colon at 13 hours. Reba Banerjee MD Abdomen Ultrasound 12/06/16 0000 Signed Impressions: Service Date/Time: Tuesday, December 06, 2016 11:31 - CONCLUSION: No free fluid is present. Agustin Bonner MD Abdomen/Pelvis CT 12/05/16 0000 Signed Impressions: Service Date/Time: November 23:28 - CONCLUSION: 1. Small bowel dilatation which may related to ileus or obstruction. The findings are similar to the prior exam. 2. Moderate ascites 3. Small pneumoperitoneum is present. Toribio Magana MD Abdomen X-Ray 12/05/16 0000 Signed Impressions: Service Date/Time: November 15:41 - CONCLUSION: Normal examination. G-tube overlies the upper abdomen. Sawyer Robertson MD Brain MRI 11/21/16 0000 Signed Impressions: Service Date/Time: , November 21, 2016 12:33 - CONCLUSION: Multifocal areas of restricted diffusion primarily in the periventricular and subcortical white matter bilaterally but also cortically based in the right frontal lobe. Findings likely represent ischemic change likely related to septic emboli given the patient's clinical history. No abscess or enhancing lesion is visualized. Agustin Bonner MD Head CT 11/17/16 0600 Signed Impressions: Service Date/Time: Thursday, November 17, 2016 10:39 - CONCLUSION: No significant change has occurred. Deven Urrutia MD Chest CT 11/16/16 0000 Signed Impressions: Service Date/Time: Wednesday, November 16, 2016 20:36 - CONCLUSION: 1. New right chest tube in the posterior superior right pleural space. There continues to be a moderate right pleural effusion primarily seen at the base. Some degree of loculation may be present inferiorly. The effusion does not layer posteriorly. There are scattered punctate areas of air within the pleural space inferiorly on the right. There is a solitary small area of air within the mild left pleural effusion. 2. Numerous irregular masses seen throughout both lungs some which are cavitary. These are nonspecific. Inflammatory masses needs be suspected. The multiplicity raises possibility of septic emboli. Agustin Price MD CT Angiography 11/13/16 1328 Signed Impressions: Service Date/Time: Sunday, November 13, 2016 15:50 - CONCLUSION: 1. Multiple cavitary lesions within both lungs with the largest measuring 9.5 cm in the right upper lobe. Differential diagnosis includes infectious and neoplastic etiologies. 2. Moderate sized right pleural effusion with adjacent compressive atelectasis and/or infiltrate. 3. Cardiomegaly and coronary artery calcifications. 4. Subcarinal mediastinal lymphadenopathy. 5. Degenerative changes throughout the thoracic spine. Jed Ponce MD PHYSICAL EXAMINATION GENERAL: Awake and alert. responding. Comfortable on CPAP. HEENT: No icterus. No petechia or hemorrhage. No nasal discharge. Oropharynx : No lesions. Moist mucosa NECK: Supple without adenopathy. Tarch site ok LUNGS: Bilateral rhonchi. R CT in place, output serous HEART: Normal S1-S2 with 2/6 IRMA at LSB. ABDOMEN: Distended. Bowel sounds hypoactive, not tender. EXTREMITIES: No clubbing or cyanosis. Has some pedal edema. SKIN: No rash. NEURO: Awake, non-focal PSYCH: Calm an cooperative : Santana in place, urine looks clear LINE: NO evidence of infection IMPRESSION 1. Endocarditis Aortic valve Staph aureus (MSSA). 2. Cavitary pulmonary lesions. Embolic./ [employer] ischemic lesions suggesting embolic lesions. 3. Pneumonia/parapneumonic effusion- MSSA. 4. Skin lesions which potentially could be embolic. 5. Leukocytosis secondary to infection. WBC improved. Now normal. 6. Fever secondary to infection. Has occasional low grade temps 7. Vent dependent respiratory failure. 8. Recurrent high spiking fever. New sepsis. 9. Ileus. 10. Marquita in UC RECOMMENDATIONS Continue IV Ancef. Also on Diflucan Continue Piperacillin/ Tazobactam. Monitor temperature. Repeat new Renal evaluating elevated creatinine Monitor progress Weaning per [facility] Anabela Steele MD Dec 08, 2016 13:41
[2016-12-08] MEDS: FLUCONAZOLE 200 MG PREMIX BAG 100 ML IV SCH (14:21)
--- NOTE | 2016-12-08 16:11 | HHI.PR ---
Subjective Subjective Notes DAILY PROGRESS NOTE FOR SURGICAL ATTENDING, DR. FAN SPEARS In the ICU PEG tube noted trach noted Objective Vitals/I&O Vital Signs Date Time Temp Pulse Resp B/P Pulse Ox O2 Delivery O2 Flow Rate FiO2 12/08/16 14:00 103 12/08/16 12:00 98.9 23 120/56 98 12/08/16 12:00 40 12/08/16 07:00 Mechanical Ventilator Labs Laboratory Tests Test 12/07/16 21:25 Potassium Level 2.8 Date/Time Procedure Status Source Growth 12/07/16 21:25 Aerobic Blood Culture - Preliminary Resulted Blood Peripheral NO GROWTH IN 1 DAY 12/07/16 21:25 Anaerobic Blood Culture - Preliminary Resulted Blood Peripheral NO GROWTH IN 1 DAY 12/07/16 16:20 Gram Stain - Final Resulted Sputum Endotracheal 12/07/16 16:20 Sputum Culture - Preliminary Resulted Pseudomonas Species 12/07/16 15:10 Urine Culture - Preliminary Resulted Urine Catheterized Urine IMMATURE GROWTH - REINCUBATE Radiology Last Impressions Renal Ultrasound 12/07/16 0000 Signed Impressions: Service Date/Time: Wednesday, December 07, 2016 10:08 - CONCLUSION: Unremarkable renal ultrasound and a trace of ascites identified. Reba Banerjee MD Abdomen X-Ray 12/07/16 0000 Signed Impressions: Service Date/Time: Wednesday, December 07, 2016 16:16 - CONCLUSION: Limited study but no free air seen. Jhoan Bishop MD Chest X-Ray 12/06/16 0600 Signed Impressions: Service Date/Time: Tuesday, December 06, 2016 04:02 - CONCLUSION: 1. Cardiomegaly 2. Patchy alveolar disease characteristic of edema or pneumonia. There has been no significant change when compared to the prior exam. Toribio Magana MD Small Bowel X-Ray 12/06/16 0000 Signed Impressions: Service Date/Time: Tuesday, December 06, 2016 16:55 - CONCLUSION: Distended loops of small bowel could be due to significant ileus versus partial small bowel obstruction and contrast gets into the colon at 13 hours. Reba Banerjee MD Abdomen Ultrasound 12/06/16 0000 Signed Impressions: Service Date/Time: Tuesday, December 06, 2016 11:31 - CONCLUSION: No free fluid is present. Agustin Bonner MD Abdomen/Pelvis CT 12/05/16 0000 Signed Impressions: Service Date/Time: November 23:28 - CONCLUSION: 1. Small bowel dilatation which may related to ileus or obstruction. The findings are similar to the prior exam. 2. Moderate ascites 3. Small pneumoperitoneum is present. Toribio Magana MD Brain MRI 11/21/16 0000 Signed Impressions: Service Date/Time: November 12:33 - CONCLUSION: Multifocal areas of restricted diffusion primarily in the periventricular and subcortical white matter bilaterally but also cortically based in the right frontal lobe. Findings likely represent ischemic change likely related to septic emboli given the patient's clinical history. No abscess or enhancing lesion is visualized. Agustin Bonner MD Head CT 11/17/16 0600 Signed Impressions: Service Date/Time: Thursday, November 17, 2016 10:39 - CONCLUSION: No significant change has occurred. Deven Urrutia MD Chest CT 11/16/16 0000 Signed Impressions: Service Date/Time: Wednesday, November 16, 2016 20:36 - CONCLUSION: 1. New right chest tube in the posterior superior right pleural space. There continues to be a moderate right pleural effusion primarily seen at the base. Some degree of loculation may be present inferiorly. The effusion does not layer posteriorly. There are scattered punctate areas of air within the pleural space inferiorly on the right. There is a solitary small area of air within the mild left pleural effusion. 2. Numerous irregular masses seen throughout both lungs some which are cavitary. These are nonspecific. Inflammatory masses needs be suspected. The multiplicity raises possibility of septic emboli. Agustin Price MD CT Angiography 11/13/16 1328 Signed Impressions: Service Date/Time: Sunday, November 13, 2016 15:50 - CONCLUSION: 1. Multiple cavitary lesions within both lungs with the largest measuring 9.5 cm in the right upper lobe. Differential diagnosis includes infectious and neoplastic etiologies. 2. Moderate sized right pleural effusion with adjacent compressive atelectasis and/or infiltrate. 3. Cardiomegaly and coronary artery calcifications. 4. Subcarinal mediastinal lymphadenopathy. 5. Degenerative changes throughout the thoracic spine. Jed Ponce MD Cardiovascular: Regular Lungs: Clear Abdomen: Non-distended, Other (PEG tube minimal tenderness if any on his abdominal exam) Extremities: SCD's on A/P Problem List: (1) S/P percutaneous endoscopic gastrostomy (PEG) tube placement Assessment and Plan Patient had a little free air that was seen on imaging after PEG tube placement This is resolving clinically he does not have any GI leak. Consider resuming tube feeds through the PEG tube tomorrow Fan Spears MD Dec 08, 2016 16:11
[2016-12-08 16:26] LABS: AUTOMATED NEUTROPHIL # 4.8 TH/MM3 (1.8-7.7); BASOPHIL % 0.3 % (0.0-2.0); EOSINOPHIL % 0.4 % (0.0-4.0); HEMATOCRIT 21.2 % (39.0-51.0); LYMPHOCYTE # 0.6 TH/MM3 (1.0-4.8); MEAN CELL VOLUME 93.6 FL (80.0-100.0); MEAN CORPUSCULAR HEMOGLOBIN 30.5 PG (27.0-34.0); MEAN CORPUSCULAR HGB CONC 32.6 % (32.0-36.0); MONO % 6.5 % (0.0-8.0); NEUT % 81.8 % (16.0-70.0); PLATELET COUNT 348 TH/MM3 (150-450); RED BLOOD COUNT 2.27 MIL/MM3 (4.50-5.90); WHITE BLOOD COUNT 5.9 TH/MM3 (4.0-11.0)
[2016-12-08 16:27] LABS: HEMO FLAGS DIFF FINAL
[2016-12-08 16:36] LABS: BICARBONATE 21.4 MEQ/L (21.0-32.0); MAGNESIUM 2.1 MG/DL (1.5-2.5); POTASSIUM 3.8 MEQ/L (3.5-5.1)
[2016-12-08 17:23] LABS: CALCIUM-PROTEIN CORRECTED 8.9 MG/DL (8.5-10.1)
[2016-12-08] MEDS: DEXTROSE 5% IN WATE 1000ML INJ 1,000 ML IV SCH (17:27)
[2016-12-09] VITALS (30 sets, daily range): BP systolic 103–141; BP diastolic 51–66; PULSE 97–112; RESP 21–40; TEMP 98.2–100.9; O2SAT 93–100
[2016-12-09] MEDS: PIPERACIL-TAZO 2.25 GM PREMIX 50 ML IV SCH ×2 (01:55→17:22)
[2016-12-09] MEDS: RESP: ALBUTEROL 2.5 MG/IPRATROPIUM 0.5 MG NEB (SCH) NEB ×4 (03:40→21:38)
[2016-12-09] MEDS: CHLORHEXIDINE GLUCONATE 2 % 1 PACK (2 CLOTHS) TOP SCH (03:59)
[2016-12-09 04:15] LABS: AUTOMATED NEUTROPHIL # 5.1 TH/MM3 (1.8-7.7); BASOPHIL % 0.4 % (0.0-2.0); EOSINOPHIL % 0.5 % (0.0-4.0); HEMATOCRIT 24.2 % (39.0-51.0); HEMO FLAGS DIFF FINAL; LYMPH % 11.1 % (9.0-44.0); LYMPHOCYTE # 0.7 TH/MM3 (1.0-4.8); MEAN CELL VOLUME 93.6 FL (80.0-100.0); MEAN CORPUSCULAR HEMOGLOBIN 29.6 PG (27.0-34.0); MEAN CORPUSCULAR HGB CONC 31.7 % (32.0-36.0); MONO % 6.3 % (0.0-8.0); NEUT % 81.7 % (16.0-70.0); PLATELET COUNT 341 TH/MM3 (150-450); RED BLOOD COUNT 2.58 MIL/MM3 (4.50-5.90); RED CELL DISTRIBUTION WIDTH 16.5 % (11.6-17.2); WHITE BLOOD COUNT 6.3 TH/MM3 (4.0-11.0)
[2016-12-09] MEDS: PROPOFOL 1000 MG/100 ML INJ 100 ML IV SCH ×2 (04:44→22:26)
[2016-12-09 04:59] LABS: MAGNESIUM 2.1 MG/DL (1.5-2.5); POTASSIUM 3.1 MEQ/L (3.5-5.1)
[2016-12-09] MEDS: INSULIN ASPART SUPPLEMENTAL SCALE SQ SCH ×4 (05:00→22:30)
[2016-12-09] MEDS: FREE WATER G-TUBE SCH ×3 (06:00→22:00)
[2016-12-09] MEDS: DEXTROSE 5% IN WATE 1000ML INJ 1,000 ML IV SCH ×2 (06:13→19:40)
[2016-12-09] MEDS: LORazepam 0.5 MG TAB PO SCH ×2 (06:13→17:22)
[2016-12-09] MEDS: ARTIFICIAL TEARS OPTH SOLN 15 ML BTL EACH EYE SCH ×3 (06:14→22:00)
--- NOTE | 2016-12-09 07:55 | HHI.CCPN ---
Subjective Remarks/Hospital Course 56-year-old male is brought to the emergency department by EMS for evaluation of generalized weakness, confusion for about 2 weeks, and also increasing shortness of breath. His oxygen saturation was 88% on room air. EMS administered breathing treatments and Solu-Medrol 125 mg 1 and placed him on nasal cannula. Patient states that he had been sick for almost 10 days, but he is a poor historian. He had a productive cough, but reports no hematemesis or weight loss. He states that it was his neighbor who made him called EMS. He has no past medical history and last time had seen a doctor was about 15 years ago. He denies any fevers but reports some night sweats and chills. He was tachycardic with a heart rate of 115 bpm, had severe leukocytosis with a white count of 35,000 with 91% neutrophils. CMP shows hyponatremia with a sodium of 126. Lactic acid is 2.4. His Chest x-ray shows large 7.7 x 7.8 cm cavitary right midlung lesion with associated right-sided pleural effusion. Subcentimeter left mid lung pulmonary nodules. Patient received 1 L normal saline bolus and Zosyn 4.5 g and Zithromax 500 mg IV and was placed on TB/ respiratory isolation. He has been being in group home 2 years ago increasing his risk of tuberculosis. CT pulmonary angiogram negative for PE but showed multiple cavitary lesions within both lungs with the largest measuring 9.5 cm in the right upper lobe. Moderate size right pleural effusion. I evaluated the patient in the emergency department. Patient appears critically ill in moderate distress mildly tachypneic, sweating. I performed a bedside ultrasound which showed a right effusion which is large. The thoracentesis was performed and 1 L of cloudy dark pleural fluid was removed. Patient will be continued on Zosyn and Levaquin and vancomycin. ID consulted and I discussed with Dr. Steele-she recommended no empiric treatments for TB. 11/14/16: Patient seen and examined complaints of severe epigastric and periumbilical abdominal pain. Patient remains oriented to person. His white count is slightly improved from 35,000-28,9000. Na improved to 136. I have ordered a STAT CT abd/pelvis with IV contrast. Chest x-ray shows reaccumulation of right pleural effusion-fluid chemistries are pending but cell count indicates at least a parapneumonic effusion and patient will need a pigtail chest tube 11/15: Patient pulled his right-sided pigtail catheter out overnight last night. Currently nasal cannula in no acute distress. Afebrile. Continues to have a leukocytosis. 11/16: Currently on room air. Hold out his IVs reportedly overnight last night. Requesting diet. Awake and alert and following commands. 11/17: Intubated yesterday due to acute hypercapnic respiratory failure. Hypoxic post intubation requiring right chest tube placement, bronchoscopy and Flolan. Bronchoscopy revealed thick mucous plugging at bilateral right and left mainstem which were clear. Improved oxygenation over the past 12 hours. Afebrile. 11/18 Patient remains sedated with Diprivan, Fentanyl and intubated. On Vasopressin and Neosyn 120 mics. 11/19 Patient is sedated with Diprivan, Fentanyl and intubated. Afebrile. Off all pressors. Afebrile. WBC is trending down 30 today from 50. 11/20: Remains severely septic and encephalopathic even though weaned off all pressors. White count still elevated but trending down. Became extremely tachycardic and tachypneic on lowering sedation. We'll check MRI of the brain to rule out embolic infarct. Family at the bedside updated 11/21 Remains heavily sedated, remains encephalopathic. MRI brain is pending. Family is at bedside. Remains critically with resp failure severe from endocarditis, now unable to wean off the ventilator due to severe metabolic encephalopathy 11/22 No events overnight. Sedated with Diprivan, fentanyl and intubated. Afebrile. MRI brain yesterday showed ischemic changes likely related to septic emboli. 11/23: Patient remains encephalopathic, severe hyponatremia possible contributing , Na is 157 today. Currently on Precedex and fentanyl. CXR shows increasing L effusion 11/24: Patient more awake today. Follows Commands but did not tolerate spontaneous breathing trials. Had left pigtail chest tube placed yesterday 1.6 L transudative fluid removal since placement 11/25 Patient is sedated with Diprivan, Fentanyl and intubated. T:99.9 11/26 No events overnight. Sedated and intubated. Patient was on CPAP x 3 hrs yesterday then became tachypneic. 11/27: Resting in bed comfortably on Diprivan at 40 mics grams per kilogram per minute and fentanyl drip at 200 an hour. Tolerated PSV trial 2 hours yesterday before becoming tachypnea. Positive BM via fecal containment device 1100 cc. Yesterday according to RN was following commands. 11/28: Currently afebrile. Tolerating PSV trials 1.5 hours today for became tachypneic. Awake and alert and follows commands. Neurologically intact. Positive BM. 11/29: Tmax 99.6. Status post percutaneous tracheostomy secondary to failed extubation trials. Plan for PEG tube today. Awake and interactive the ventilator on sedation vacation. Subjective 11/30: DrAzael currently 98.8. Status post percutaneous tracheostomy Dr. Baker yesterday and PEG tube placement by Dr. Figueroa. Tube feeds will be resumed today. Otherwise appears comfortable ventilator. Arousable and follows commands on sedation vacation. 12/01: Patient becomes tachypneic on attempted CPAP, even with high pressure support. I will add by mouth Ativan to reduce IV sedation requirement. Decreasing chest tube output 12/02: Patient failed spontaneous breathing trial clinically today secondary to severe tachypnea and tachycardia. His spiking fever upto 103. Panculture blood , dose of vancomycin given. Most likely patient is getting new sepsis 12/03: Continued to spike fever up to 102. Dose of vancomycin was given yesterday. Patient tolerated CPAP for 3 hours today, remains encephalopathic though. 12/04: Patient more awake alert follows commands, tolerated CPAP but did not tolerate TPs. Abdomen significantly distended, KUB shows ileus. Continues to spike high fever. Diflucan vancomycin added by ID and continue Ancef 12/05: Abdomen remains distended, CT yesterday show intra abdominal free air. Unclear whether related to PEG or perforation. D/W with Dr. Baker, will get repeat CT with oral contrast today. Zosyn added by ID 12/06 Patient is sedated with Fentanyl and Diprivan. CT abdomen/pelvis yesterday sowed small bowel dilation ( ileus vs obstruction) 12/07 Patient remains intubated on low dose Diprivan and Fentanyl infusion however he is awake. Tolerated CPAP all day yesterday T: 100.0 last night. SB series showed distended loops of small bowel. Renal function worse today with Cr: 2.4 from 1.96. 12/08 No events overnight. On Diprivan and Fentanyl drip for sedation. T:99.9 last night. 12/09 Patient remains on ventilator via trach, sedated with Diprivan and Fentanyl. T: 101.0 last night. s/p transfusion 1unit PRBC yesterday. Objective Vital Signs Date Time Temp Pulse Resp B/P Pulse Ox O2 Delivery O2 Flow Rate FiO2 12/09/16 07:00 105 28 128/64 99 12/09/16 04:00 40 12/09/16 04:00 99.4 12/08/16 20:00 Mechanical Ventilator 5.00 Intake and Output 12/08/16 12/08/16 12/09/16 08:00 16:00 00:00 Intake Total 1221 ml 1373 ml 1107 ml Output Total 800 ml 925 ml 565 ml Balance 421 ml 448 ml 542 ml Result Diagram: 12/09/16 0403 12/09/16 0403 Other Results Laboratory Tests Test 12/08/16 12/08/16 12/09/16 15:12 18:00 04:03 White Blood Count 5.9 TH/MM3 6.3 TH/MM3 Red Blood Count 2.27 MIL/MM3 2.58 MIL/MM3 Hemoglobin 6.9 GM/DL 7.7 GM/DL Hematocrit 21.2 % 24.2 % Mean Corpuscular Volume 93.6 FL 93.6 FL Mean Corpuscular Hemoglobin 30.5 PG 29.6 PG Mean Corpuscular Hemoglobin 32.6 % 31.7 % Concent Red Cell Distribution Width 16.0 % 16.5 % Platelet Count 348 TH/MM3 341 TH/MM3 Mean Platelet Volume 7.2 FL 6.4 FL Neutrophils (%) (Auto) 81.8 % 81.7 % Lymphocytes (%) (Auto) 11.0 % 11.1 % Monocytes (%) (Auto) 6.5 % 6.3 % Eosinophils (%) (Auto) 0.4 % 0.5 % Basophils (%) (Auto) 0.3 % 0.4 % Neutrophils # (Auto) 4.8 TH/MM3 5.1 TH/MM3 Lymphocytes # (Auto) 0.6 TH/MM3 0.7 TH/MM3 Monocytes # (Auto) 0.4 TH/MM3 0.4 TH/MM3 Eosinophils # (Auto) 0.0 TH/MM3 0.0 TH/MM3 Basophils # (Auto) 0.0 TH/MM3 0.0 TH/MM3 CBC Comment DIFF FINAL DIFF FINAL Differential Comment Sodium Level 149 MEQ/L 146 MEQ/L Potassium Level 3.8 MEQ/L 3.1 MEQ/L Chloride Level 118 MEQ/L 115 MEQ/L Carbon Dioxide Level 21.4 MEQ/L 22.0 MEQ/L Anion Gap 10 MEQ/L 9 MEQ/L Blood Urea Nitrogen 59 MG/DL 61 MG/DL Creatinine 2.54 MG/DL 2.47 MG/DL Estimat Glomerular Filtration 26 ML/MIN 27 ML/MIN Rate Random Glucose 108 MG/DL 97 MG/DL Calcium Level 7.2 MG/DL 7.8 MG/DL Protein Corrected Calcium 8.9 MG/DL Phosphorus Level 5.4 MG/DL 4.6 MG/DL Magnesium Level 2.1 MG/DL 2.1 MG/DL Total Protein 4.2 GM/DL Blood Type A POSITIVE Antibody Screen NEGATIVE Crossmatch Leukocyte-Reduced Red Blood Cells Blood Bank Comment Imaging Last Impressions Renal Ultrasound 12/07/16 0000 Signed Impressions: Service Date/Time: Wednesday, December 07, 2016 10:08 - CONCLUSION: Unremarkable renal ultrasound and a trace of ascites identified. Reba Banerjee MD Abdomen X-Ray 12/07/16 0000 Signed Impressions: Service Date/Time: Wednesday, December 07, 2016 16:16 - CONCLUSION: Limited study but no free air seen. Jhoan Bishop MD Chest X-Ray 12/06/16 0600 Signed Impressions: Service Date/Time: Tuesday, December 06, 2016 04:02 - CONCLUSION: 1. Cardiomegaly 2. Patchy alveolar disease characteristic of edema or pneumonia. There has been no significant change when compared to the prior exam. Toribio Magana MD Small Bowel X-Ray 12/06/16 0000 Signed Impressions: Service Date/Time: Tuesday, December 06, 2016 16:55 - CONCLUSION: Distended loops of small bowel could be due to significant ileus versus partial small bowel obstruction and contrast gets into the colon at 13 hours. Reba Banerjee MD Abdomen Ultrasound 12/06/16 0000 Signed Impressions: Service Date/Time: Tuesday, December 06, 2016 11:31 - CONCLUSION: No free fluid is present. Agustin Bonner MD Abdomen/Pelvis CT 12/05/16 0000 Signed Impressions: Service Date/Time: November 23:28 - CONCLUSION: 1. Small bowel dilatation which may related to ileus or obstruction. The findings are similar to the prior exam. 2. Moderate ascites 3. Small pneumoperitoneum is present. Toribio Magana MD Brain MRI 11/21/16 0000 Signed Impressions: Service Date/Time: November 12:33 - CONCLUSION: Multifocal areas of restricted diffusion primarily in the periventricular and subcortical white matter bilaterally but also cortically based in the right frontal lobe. Findings likely represent ischemic change likely related to septic emboli given the patient's clinical history. No abscess or enhancing lesion is visualized. Agustin Bonner MD Head CT 11/17/16 0600 Signed Impressions: Service Date/Time: Thursday, November 17, 2016 10:39 - CONCLUSION: No significant change has occurred. Deven Urrutia MD Chest CT 11/16/16 0000 Signed Impressions: Service Date/Time: Wednesday, November 16, 2016 20:36 - CONCLUSION: 1. New right chest tube in the posterior superior right pleural space. There continues to be a moderate right pleural effusion primarily seen at the base. Some degree of loculation may be present inferiorly. The effusion does not layer posteriorly. There are scattered punctate areas of air within the pleural space inferiorly on the right. There is a solitary small area of air within the mild left pleural effusion. 2. Numerous irregular masses seen throughout both lungs some which are cavitary. These are nonspecific. Inflammatory masses needs be suspected. The multiplicity raises possibility of septic emboli. Agustin Price MD CT Angiography 11/13/16 1328 Signed Impressions: Service Date/Time: Sunday, November 13, 2016 15:50 - CONCLUSION: 1. Multiple cavitary lesions within both lungs with the largest measuring 9.5 cm in the right upper lobe. Differential diagnosis includes infectious and neoplastic etiologies. 2. Moderate sized right pleural effusion with adjacent compressive atelectasis and/or infiltrate. 3. Cardiomegaly and coronary artery calcifications. 4. Subcarinal mediastinal lymphadenopathy. 5. Degenerative changes throughout the thoracic spine. Jed Ponce MD Objective Remarks GENERAL: 56-year-old male, critically ill currently on ventilator via tracheostomy, SKIN: Warm and dry. Scattered skin lesions erythematous predominantly left lower extremity HEAD: Normocephalic and atraumatic. EYES: No injection, drainage. Pupils equally round and reactive around 3 mm ENT: No nasal drainage noted. Oropharynx is clear. NECK: Supple. No JVD or thyromegaly or lymphadenopathy. Tracheostomy is clean dry and intact CARDIOVASCULAR: RR. S1, S2. No S4. No murmur not appreciated. RESPIRATORY: B/L equal air entry GASTROINTESTINAL: Abdomen is distended, tympanic, no guarding MUSCULOSKELETAL: 1+ pitting edema bilateral lower extremities. Multiple erythematous raised lesions on bilateral lower extremity predominantly left lower leg NEUROLOGICAL: Patient is awake on the ventilator but encephalopathic Date of Insertion: Nov 16, 2016 Date of Removal: Nov 21, 2016 Line: Central Venous Catheter Side: Left Location: Internal, Jugular A/P Assessment and Plan NEURO/PSYCH: Metabolic encephalopathy Septic brain emboli Propofol and fentanyl for sedation and vent synchrony. Daily sedation vacation. Monitor neuro status Ativan 0.5 mg PO [id number]. EEG 11/24: Generalized encephalopathy without any significant epileptic activity. MRI brain 11/21: Ischemic changes throughout white matter likely related to septic emboli. Neuro Dr. Hernandez and has followed intermittently On Thiamine/MVI/Folic acid RESP: Bilateral cavitary lung lesions/most likely cavitating pneumonia from staph aureus Acute respiratory failure Large right loculated pleural effusion/empyema Left pleural effusion Anterior pneumothorax PRVC 18/600/1.0/5/40. Continue with vent support keep sat >90%. DuoNebs every 4 hours with albuterol nebs every 2 hours. Vent bundle.SBT daily as tiki Status post tracheostomy by Dr. Baker 11/29 Right-sided chest tube #28 Nepalese-monitor CT drainage, check CXR Left-sided chest tube #10 Nepalese- placed 11/24/16-removed 12/02 Right thoracentesis with 1 L cloudy yellow fluid removed, fluid cell studies WBC 2,600, Patient status post pigtail catheter placement 11/14, 445 cc prior pulled out . Evaluated by Dr. Samuels/CT surgery. Per his recommendations, No indication for decortication at this time CV: Aortic valve endocarditis/large vegetation Sinus tachycardia Atrial fibrillation with RVR early normal sinus rhythm Elevated troponin - likely rate dependent -Place on Lopressor 25mg Q12, Monitor HR and BP keep MAP>65mmHg - 2-D echocardiogram revealed EF 55-60%. Moderate AR. CHANDNI revealed 17 mm x 17 millimeter mobile mass on aortic valve. - limited echo 11/22 Persistent vegetation - CT surgery. Recommendations no intervention at this time GI: Intra peritoneal free air. (Related to PEG or perforation). Ileus Hypoalbuminemia Moderate protein calorie malnutrition/acute Keep NPO SB series w/ Gastrografin showed distended SB loops- ileus vs partial bowel obstruction Repeat CT abdomen/pelvis 12/05- small pneumoperitoneum, small bowel dilation ( ileus vs obstruction) small pneumoperitoneum likely related to previous PEG tube placement, PEG tube to suction. GI/Surgery is following- Dr. Baker. CT abdomen 12/04 show intra peritoneal free air. ? related to PEG or perforation. IV Protonix for GI prophylaxis. MiraLAX twice a day for bowel regimen Reglan for bowel motility Prev CT of the abdomen pelvis with IV contrast revealed possible ileus., Gastric contraction at gastric duodenal junction. 2 mm renal cyst. GI is following; s/p PEG placement 11/29/16 : Monitor renal function, I/O's, electrolytes replacement as needed. Will need K replacement today On D5W@75ml/hr. On Free water 250ml Q8, Renal US: unremarkable, renal is following- Dr. Mireles ID: Severe sepsis Persistent fever Multilobar cavitating pneumonia secondary staph aureus Staph aureus empyema Aortic valve endocarditis - Continue with abx per ID ( Zosyn, Diflucan, Vanco, Ancef for endocarditis)- monitor for signs of infections ( Fever, WBC). - Check BC x2 sets , urine cx Pertinent cultures 11/13 - blood cultures 2 - staph aureus 11/13 and 11/14- pleural fluid- staph aureus 11/14- sputum- staph aureus 11/15 - blood cultures 2 -staph aureus 11/16 - Bronch samples: Staph Aureus 11/16 Sputum: Staph Aureus 11/19 - blood cultures 2 - no growth 11/23 - pleural fluid - no growth 11/24 - blood cultures 2 - no growth 11/25 - UA - negative 11/25 - sputum no growth 12/02: Urine C tropicalis 12/07: Sputum: Pseudomonas 12/07 BC: NGTD HEME: Normocytic anemia - Monitor CBC,s/p transfusion 1u PRBC 12/08 ENDO: SSI with accuchecks for glycemic control TSH 0.6. PROPH: - Bilateral lower extremity SCDs. Heparin SQ on hold for anemia requiring blood transfusion IV Protonix for prophylaxis LINES: - peripheral IVs Palliative care is following Level 3 Noam Calhoun MD Dec 09, 2016 07:55
--- NOTE | 2016-12-09 08:34 | MB ---
cc: DAVID VIEIRA MD DATE OF CONSULTATION: 12/07/2016 REASON FOR CONSULTATION: Elevated BUN and creatinine for evaluation. HISTORY OF PRESENT ILLNESS This is 56-year-old male with no significant past medical history was presented to the hospital with 2 weeks and history of weakness. On admission he was noted to have low oxygen saturation and a productive cough and the patient, regular respiratory failure. He was diagnosed with pneumonia. He has been treated with multiple antibiotics. Infectious disease has been following the patient for possibly of cavity lesion with possible pneumonia and has also encephalopathy. I was called mainly because of elevated BUN and creatinine patient has creatinine of 0.7-0.6 most of the time and that this started going up 10 days ago and went up to 1.7 and then it was improving, then for the last [id number] days has been going up again and now it is 2.4. The patient has likely decreased urine output. His Santana catheter was flushed and he has been getting Zosyn and cephazolin and his blood pressure has been on the lower side and systolic. Has multiple readings of 90s. He is currently getting IV fluid and has been on ventilator through the tracheostomy. PAST MEDICAL HISTORY None. PAST SURGICAL HISTORY: None. REVIEW OF SYSTEMS Not done since the patient cannot talk and he is not answering most of the questions. SOCIAL HISTORY There is no history of smoking or alcoholism. FAMILY HISTORY: Family history is noncontributory. ALLERGIES He has NO KNOWN DRUG ALLERGIES. MEDICATIONS Currently he is on following medications 1. Dextrose. 2. Normal saline at 84 an hour. 3. Protonix 40 mg IV b.i.d. 4. Clarinex 17 grams b.i.d. 5. Folic acid 1 mg once a day 6. lactulose 30 ml once a day. 7. Theragran 1 tablet daily. 8. Thiamine 100 mg IV daily. 9. DuoNeb nebulizers. 10. Lorazepam as well as needed. 11. Zosyn 2.25 grams IV q. 12-hour. 12. Hydrocortisone 25 mg q 12 hours. 13. Fluconazole 400 milligram q.24 h. 14. Potassium chloride. 15. Cephazolin 1 gram IV q. 8-hour. PHYSICAL EXAMINATION: IN GENERAL: On examination the patient is awake, his eyes open and he has been on ventilator through tracheostomy. HEAD, EYES, EARS, NOSE, AND THROAT: Pupils are mid constricted. Nonicteric sclera, conjunctiva pale. NECK: The neck is supple. No jugular venous distention is not elevated. He has tracheostomy in the neck. LUNGS: Bilateral decreased air entry with basilar rales and scattered wheezing which is diffuse. HEART: S1, S2, regular rhythm. ABDOMEN: The abdomen is distended, soft lax. Bowel sounds positive. EXTREMITIES: There is bilateral 1+ leg edema, and arm edema INVESTIGATIONS: WBC count is 8.0, hemoglobin 7.1, platelet count 356, neutrophils 85.4%. Sodium 146, potassium 3.1, chloride 112, bicarb 23.2, BUN 62, creatinine 2.4, calcium 8.3, phosphorus 5.6, magnesium 2.3, AST is less than 6, ALT is 12, total protein is 5.9, albumin is 3.1. INR 1.0. Urinalysis showing protein of 30 on admission, urine eosinophils none seen. The urine sodium was 5 this was done ten days ago. Cultures growing corinne in the urine and staph aureus in the blood and bronchial washings in the past. IMAGING STUDIES The patient has ultrasound of the kidneys done which shows both kidneys are normal in size, there is no hydronephrosis. Trace ascites. A chest x-ray was done which shows cardiomegaly with some increased vascular markings. Abdominal ultrasound was done which shows no free fluid. CT scan of the abdomen and pelvis was done without IV contrast shows moderate ascites, small bowel dilatation, small pneumoperitoneum. ASSESSMENT 1. Acute kidney injury 2. Pneumonia. 3. Sepsis 4. Respiratory failure 5. Anemia. 6. Malnutrition. 7. Edema. PLAN: The patient has an acute kidney injury most likely this is related to hypotension and acute tubular necrosis. I will recheck the urine sodium osmolality agree with continuing the gentle hydration and IV antibiotics. Follow the urine output and the BUN and creatinine and avoid any nephrotoxins. I discussed with the patient's and discussed with the patient's family at the bedside. Thank you for the consultation. I will follow the patient while he is in-house MD TABBY Dutta/derek /12:03 PM /8:28 AM
--- NOTE | 2016-12-09 08:40 | RADRPT ---
EXAM DATE/TIME: 12/09/2016 07:39 [facility] COMPARISON: CHEST SINGLE AP, December 06, 2016, 4:02. INDICATIONS : Shortness of breath; VDRF. MEDICAL HISTORY : Sepsis. Cavitary mass. SURGICAL HISTORY : ENCOUNTER: Subsequent ACUITY: 1 month PAIN SCORE: Non-responsive. LOCATION: Bilateral chest FINDINGS: A right thoracostomy tube has pulled back significantly and there has been interval development of a large basilar pneumothorax. Diffuse parenchymal infiltrates persists elsewhere. Tracheostomy is stabl e. Cardiac contours are stable. CONCLUSION: Interval retraction of right thoracostomy tube with redevelopment of large basilar pneumothorax Agustin Pérez MD on December 09, 2016 at 8:37 Board Certified Radiologist. This report was verified electronically.
[2016-12-09] MEDS: PANTOPRAZOLE SODIUM 40 MG VIAL IV SCH ×2 (09:05→22:27)
[2016-12-09] MEDS: POTASSIUM CHLOR 20 MEQ PREMIX 100 ML IV SCH ×2 (09:06→12:42)
[2016-12-09] MEDS: FOLIC ACID 1 MG TAB PO SCH (09:06)
[2016-12-09] MEDS: MULTIVITAMIN TAB PO SCH (09:06)
[2016-12-09] MEDS: POLYETHYLENE GLYCOL 17 GM PKG PO SCH ×2 (09:07→22:27)
[2016-12-09] MEDS: METOPROLOL TARTRATE 25 MG TAB PO SCH ×2 (09:07→22:27)
[2016-12-09] MEDS: LACTULOSE SYRUP 20 GM/30 ML CUP PO SCH (09:07)
[2016-12-09] MEDS: SODIUM CHLORIDE 0.9% FLUSH 10 ML FLUSH IV FLUSH SCH ×2 (09:08→21:00)
[2016-12-09] MEDS: CHLORHEXIDINE 0.12% (ORAL KIT) 15 ML CUP MT SCH ×2 (09:08→22:28)
--- NOTE | 2016-12-09 10:26 | HHI.HCPN ---
Reason for visit a. To assist with evaluation and management of symptoms including: dyspnea b. To assist medical decision maker(s) with: better understanding of current medical conditions; weighing benefits/burdens of medical treatment options; making medical treatment decisions. . Subjective/Interval History Pt s/p trach and peg, remains on ventilator, and sedated. Pt had tmx of 100.9. Cr is 2.47. Pt has interval retraction of right thoracostomy tube with redevelopment of large basilar pneumothorax. Nephrology was consulted and will monitor, continue gentle iv hydration, and iv antibiotics. On my exam, open eyes, able to answer some questions appropriately. "Is your last name Keyur." Shock is head no. "Are you in [place] Family/friend interactions spoke with pt's mother. No change in goals of care,and endorses Full Code remains. She and pt's friend sees him as more responsive and feels he would want "to do everything possible." Advance Directives Living Will: Never completed Health Care Surrogate: Copy in medical record Durable Power of Auto Body Painter: Never completed Advance Directive Specifics Health Care Surrogate(s): The patient lacks capacity for decision-making, and it is uncertain whether he will regain that capacity. Initially, he had named his landlord Kerrie Correa as healthcare surrogate on 11/14/16, but she makes it very clear by telephone on 11/18/16 that "since there is family around, I do not want to be the decision-maker for him in any way." I spoke with the patient's 21-year-old son Alexei Mohan [phone] in [place] by telephone, and he reports that he also does not want to be involved in the decision making; "he has not had any impact or played any role in my life, so that would not be appropriate for me to make decisions for him." Thus, the patient's mother Nellie Ying is his healthcare proxy decision-maker. Objective Vital Signs Date Time Temp Pulse Resp B/P Pulse Ox O2 Delivery O2 Flow Rate FiO2 12/09/16 08:21 100 40 12/09/16 07:00 105 28 128/64 99 12/09/16 06:30 103 24 123/57 100 12/09/16 06:00 102 12/09/16 06:00 102 23 122/57 99 12/09/16 05:30 104 28 124/59 99 12/09/16 05:00 104 33 125/60 100 12/09/16 04:30 101 21 116/58 99 12/09/16 04:00 106 26 126/60 99 12/09/16 04:00 40 12/09/16 04:00 106 26 126/60 99 12/09/16 04:00 106 12/09/16 04:00 99.4 106 23 126/60 99 12/09/16 03:41 100 40 12/09/16 03:30 110 24 129/60 100 12/09/16 03:00 109 40 129/62 100 12/09/16 02:30 109 32 141/66 100 12/09/16 02:00 110 12/09/16 02:00 110 25 138/63 99 12/09/16 01:30 109 25 136/64 99 12/09/16 01:14 99 40 12/09/16 01:00 110 25 141/63 99 12/09/16 00:30 109 25 137/63 100 12/09/16 00:00 100.9 111 25 141/65 98 12/09/16 00:00 111 24 141/65 99 12/09/16 00:00 111 12/09/16 00:00 111 24 141/65 99 12/09/16 00:00 100.9 111 25 141/65 98 12/09/16 00:00 40 12/08/16 23:30 109 20 138/65 99 12/08/16 23:00 113 25 141/67 98 12/08/16 22:51 98 40 12/08/16 22:30 112 25 136/67 98 12/08/16 22:00 109 12/08/16 22:00 109 31 130/60 95 12/08/16 21:41 111 24 139/66 100 12/08/16 21:40 99.2 111 24 100 12/08/16 21:30 110 24 135/63 100 12/08/16 21:25 100.0 110 25 137/64 99 12/08/16 21:15 110 24 137/64 99 12/08/16 21:00 112 25 138/63 99 12/08/16 20:31 114 26 141/65 98 12/08/16 20:00 40 12/08/16 20:00 110 12/08/16 20:00 101.0 110 25 137/61 99 12/08/16 20:00 110 25 126/58 100 12/08/16 20:00 100 Mechanical Ventilator 5.00 40 12/08/16 19:48 100 40 12/08/16 18:00 109 12/08/16 16:00 99.7 115 27 136/69 97 12/08/16 16:00 40 12/08/16 16:00 115 12/08/16 14:00 103 12/08/16 12:00 98.9 100 23 120/56 98 12/08/16 12:00 100 12/08/16 12:00 98.9 100 23 120/56 98 12/08/16 12:00 40 12/08/16 11:06 100 40 Intake & Output 12/09/16 12/09/16 06:59 18:59 Intake Total 2896 ml Output Total 1215 ml Balance 1681 ml IV Total 1754 ml Packed Cells 302 ml Other 840 ml Output Urine Total 775 ml Stool Total 300 ml Gastric Drainage Total 140 ml Chest Tube Drainage Total 0 ml Physical Exam CONSTITUTIONAL/GENERAL: This is an adequately nourished patient, on the ventilator in [facility], on restraints TUBES/LINES/DRAINS: Central line, trach, peg, Santana catheter SKIN: No jaundice, rashes. He has multiple small, healing punctures and abrasions about his feet and ankles . CARDIOVASCULAR: Regular rate and rhythm with grade 2 systolic murmur. No JVD. Peripheral pulses symmetric. RESPIRATORY/CHEST: Symmetric, unlabored respirations. Scattered rhonchi GASTROINTESTINAL: Abdomen soft, nondistended. No hepato-splenomegaly, or palpable masses. No guarding. Bowel sounds present. MUSCULOSKELETAL: Extremities without clubbing, cyanosis, or edema. No joint tenderness or effusion noted. No mottling or clubbing. He has multiple small punctures and abrasions about his feet and ankles (reportedly from walking barefoot). NEUROLOGICAL: Opens eyes, tracks, follows some simple commands, PSYCHIATRIC: could not evaluated . Diagnostic Tests Laboratory Laboratory Tests Test 12/07/16 12/07/16 12/07/16 12/07/16 04:11 11:20 15:10 21:25 White Blood Count 8.0 TH/MM3 (4.0-11.0) Red Blood Count 2.29 MIL/MM3 (4.50-5.90) Hemoglobin 7.1 GM/DL 7.2 GM/DL (13.0-17.0) (13.0-17.0) Hematocrit 21.5 % 22.6 % (39.0-51.0) (39.0-51.0) Mean Corpuscular Volume 93.8 FL (80.0-100.0) Mean Corpuscular Hemoglobin 30.8 PG (27.0-34.0) Mean Corpuscular Hemoglobin 32.8 % Concent (32.0-36.0) Red Cell Distribution Width 15.8 % (11.6-17.2) Platelet Count 356 TH/MM3 (150-450) Mean Platelet Volume 7.5 FL (7.0-11.0) Neutrophils (%) (Auto) 85.4 % (16.0-70.0) Lymphocytes (%) (Auto) 8.5 % (9.0-44.0) Monocytes (%) (Auto) 5.8 % (0.0-8.0) Eosinophils (%) (Auto) 0.1 % (0.0-4.0) Basophils (%) (Auto) 0.2 % (0.0-2.0) Neutrophils # (Auto) 6.8 TH/MM3 (1.8-7.7) Lymphocytes # (Auto) 0.7 TH/MM3 (1.0-4.8) Monocytes # (Auto) 0.5 TH/MM3 (0-0.9) Eosinophils # (Auto) 0.0 TH/MM3 (0-0.4) Basophils # (Auto) 0.0 TH/MM3 (0-0.2) CBC Comment DIFF FINAL Differential Comment Sodium Level 146 MEQ/L (136-145) Potassium Level 3.1 MEQ/L 2.8 MEQ/L (3.5-5.1) (3.5-5.1) Chloride Level 112 MEQ/L (98-107) Carbon Dioxide Level 23.2 MEQ/L (21.0-32.0) Anion Gap 11 MEQ/L (5-15) Blood Urea Nitrogen 62 MG/DL (7-18) Creatinine 2.40 MG/DL (0.60-1.30) Estimat Glomerular Filtration 28 ML/MIN (>89) Rate Random Glucose 96 MG/DL (74-106) Calcium Level 8.3 MG/DL (8.5-10.1) Phosphorus Level 5.6 MG/DL (2.5-4.9) Magnesium Level 2.3 MG/DL (1.5-2.5) Urine Color YELLOW (YELLW/STRAW) Urine Turbidity CLOUDY (CLEAR) Urine pH 5.0 (5.0-8.5) Urine Specific [place] 1.016 (1.002-1.035) Urine Protein 30 mg/dL (NEG-TRACE) Urine Glucose (UA) NEG mg/dL (NEG) Urine Ketones NEG mg/dL (NEG) Urine Occult Blood SMALL (NEG) Urine Nitrite NEG (NEG) Urine Bilirubin NEG (NEG) Urine Urobilinogen LESS THAN 2.0 MG/DL (LESS THAN 2.0) Urine Leukocyte Esterase SMALL (NEG) Urine RBC 1 /hpf (0-3) Urine WBC 6 /hpf (0-5) Urine WBC Clumps RARE (NONE) Urine Amorphous Sediment RARE Urine Bacteria OCC /hpf (NONE) Urine Granular Casts 22 /lpf (NONE) Urine Mucus FEW /lpf (OCC) Microscopic Urinalysis Comment CATH-CULTURE IND Urine Eosinophils NONE SEEN /HPF (NONE SEEN) Urine Osmolality 367 MOSM/KG (300-1300) Urine Random Sodium 62 MEQ/L Test 12/08/16 12/08/16 12/09/16 15:12 18:00 04:03 White Blood Count 5.9 TH/MM3 6.3 TH/MM3 (4.0-11.0) (4.0-11.0) Red Blood Count 2.27 MIL/MM3 2.58 MIL/MM3 (4.50-5.90) (4.50-5.90) Hemoglobin 6.9 GM/DL 7.7 GM/DL (13.0-17.0) (13.0-17.0) Hematocrit 21.2 % 24.2 % (39.0-51.0) (39.0-51.0) Mean Corpuscular Volume 93.6 FL 93.6 FL (80.0-100.0) (80.0-100.0) Mean Corpuscular Hemoglobin 30.5 PG 29.6 PG (27.0-34.0) (27.0-34.0) Mean Corpuscular Hemoglobin 32.6 % 31.7 % Concent (32.0-36.0) (32.0-36.0) Red Cell Distribution Width 16.0 % 16.5 % (11.6-17.2) (11.6-17.2) Platelet Count 348 TH/MM3 341 TH/MM3 (150-450) (150-450) Mean Platelet Volume 7.2 FL 6.4 FL (7.0-11.0) (7.0-11.0) Neutrophils (%) (Auto) 81.8 % 81.7 % (16.0-70.0) (16.0-70.0) Lymphocytes (%) (Auto) 11.0 % 11.1 % (9.0-44.0) (9.0-44.0) Monocytes (%) (Auto) 6.5 % (0.0-8.0) 6.3 % (0.0-8.0) Eosinophils (%) (Auto) 0.4 % (0.0-4.0) 0.5 % (0.0-4.0) Basophils (%) (Auto) 0.3 % (0.0-2.0) 0.4 % (0.0-2.0) Neutrophils # (Auto) 4.8 TH/MM3 5.1 TH/MM3 (1.8-7.7) (1.8-7.7) Lymphocytes # (Auto) 0.6 TH/MM3 0.7 TH/MM3 (1.0-4.8) (1.0-4.8) Monocytes # (Auto) 0.4 TH/MM3 0.4 TH/MM3 (0-0.9) (0-0.9) Eosinophils # (Auto) 0.0 TH/MM3 0.0 TH/MM3 (0-0.4) (0-0.4) Basophils # (Auto) 0.0 TH/MM3 0.0 TH/MM3 (0-0.2) (0-0.2) CBC Comment DIFF FINAL DIFF FINAL Differential Comment Sodium Level 149 MEQ/L 146 MEQ/L (136-145) (136-145) Potassium Level 3.8 MEQ/L 3.1 MEQ/L (3.5-5.1) (3.5-5.1) Chloride Level 118 MEQ/L 115 MEQ/L (98-107) (98-107) Carbon Dioxide Level 21.4 MEQ/L 22.0 MEQ/L (21.0-32.0) (21.0-32.0) Anion Gap 10 MEQ/L (5-15) 9 MEQ/L (5-15) Blood Urea Nitrogen 59 MG/DL (7-18) 61 MG/DL (7-18) Creatinine 2.54 MG/DL 2.47 MG/DL (0.60-1.30) (0.60-1.30) Estimat Glomerular Filtration 26 ML/MIN (>89) 27 ML/MIN (>89) Rate Random Glucose 108 MG/DL 97 MG/DL (74-106) (74-106) Calcium Level 7.2 MG/DL 7.8 MG/DL (8.5-10.1) (8.5-10.1) Protein Corrected Calcium 8.9 MG/DL (8.5-10.1) Phosphorus Level 5.4 MG/DL 4.6 MG/DL (2.5-4.9) (2.5-4.9) Magnesium Level 2.1 MG/DL 2.1 MG/DL (1.5-2.5) (1.5-2.5) Total Protein 4.2 GM/DL (6.4-8.2) Blood Type A POSITIVE Antibody Screen NEGATIVE Crossmatch Leukocyte-Reduced Red Blood Cells Blood Bank Comment Result Diagram: 12/09/16 0403 12/09/16 0403 Microbiology Microbiology Date/Time Procedure Status Source Growth 12/07/16 15:10 Urine Culture - Preliminary Resulted Urine Catheterized Urine IMMATURE GROWTH - REINCUBATE 12/07/16 16:20 Gram Stain - Final Resulted Sputum Endotracheal 12/07/16 16:20 Sputum Culture - Preliminary Resulted Pseudomonas Species 12/07/16 19:08 Aerobic Blood Culture - Preliminary Resulted Blood Peripheral NO GROWTH IN 1 DAY 12/07/16 19:08 Anaerobic Blood Culture - Preliminary Resulted Blood Peripheral NO GROWTH IN 1 DAY 12/07/16 21:25 Aerobic Blood Culture - Preliminary Resulted Blood Peripheral NO GROWTH IN 1 DAY 12/07/16 21:25 Anaerobic Blood Culture - Preliminary Resulted Blood Peripheral NO GROWTH IN 1 DAY 12/09/16 09:47 Aerobic Blood Culture Received Blood Peripheral Pending 12/09/16 09:47 Anaerobic Blood Culture Received Blood Peripheral Pending 12/09/16 09:54 Aerobic Blood Culture Received Blood Peripheral Pending 12/09/16 09:54 Anaerobic Blood Culture Received Blood Peripheral Pending Procedures Thoracentesis and right (pigtail) thoracostomy 11/14/16 INTUBATION 11/16/16 Bronchoscopy 11/16/16 . 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 Never . One estranged son in [place]. Spiritual: The patient is not and has not ever been spiritual or latter day person according to the family, but the family does want the hotel maintenance technician to continue to come and visit. Legal: The patient lacks capacity for decision-making, and it it is uncertain whether he will regain that capacity. Initially, he had named his landlord Kerrie Correa as healthcare surrogate, but she makes it very clear by telephone [phone] on 11/18/16 that "since there is family around, I do not want to be the decision-maker for him in any way." I spoke with the patient's 21-year-old son Alexei Mohan [phone] in [place] by telephone, and he reports that he also does not want to be involved in the decision making; "he has not had any impact or played any role in my life, so that would not be appropriate for me to make decisions for him." Thus, the patient's mother Nellie Ying is his healthcare proxy decision-maker. Ethical issues impacting care: None . Important Contacts Mother: Nellie Ying <----> PROXY DECISION-MAKER -- [phone] Son: (estranged for many years) Adarsh Mohan [phone] . Prognosis The patient has multisystem organ failure and septic shock with a large vegetation on his aortic valve, and his overall prognosis is quite guarded at best, and poor at worse. At risk for decompensation, sudden setback and . . Code Status: Alternative Code Plan ==Code- Family request to change back to Full Code, Code status reviewed agian after my conversation with mom, pt's mom endorses full code. pt is already peg / trach ==DECISION-MAKING: Pt open eyes, and interactive. Able to nod to indicate yes , and shook head to indicate not, but at times not answering question approriately. I feel pt is more interactive, but its questionable he has the capacity to weigh risk and benefits of medical decision. Likef flutuates, but at this time I cannot say pt has capacity to make medical decisions. ==Goals of Care: Met with pt's Mother, Sister and Friend 11/26/2016. Multiple family meeting and discussion with pt's mother. Understand pt has cardiac vegetation and that without surgery, likely will not clear infection, and overall poor prognosis. At this point in time, not a surgical candidate. Reviewed what peg and trach means, and his overall prognosis, if he is able to leave and survive hospitalization, he is as risk for multiple hospitalization and visits. S/p trach and peg Goals of care is aggressive, and is again reviewed with pt's mom again. Unlikely will have change of goals of care until another significant setback. ==SYMPTOMS: Any pain or dyspnea is being managed by appropriate sedation and the ventilator, and I have no additional medication recommendations at this time. ==Palliative Care will continue to follow the patient during this hospitalization. . Attestation To help prompt me to consider important information that might be impacting today's encounter and assessment, information from prior notes written by myself or my colleagues may have been "brought forward" into today's note. My signature on this note, however, is an attestation that I personally performed the exam, history, and/or decision-making noted today, and, unless otherwise indicated, the interactions with patient, family, and staff as well as the review of records all occurred today. I also attest that the listed assessment and stated plan reflect my best clinical judgment today based on the combination of historical information, prior notes, and today's exam/ interactions. When time spent is documented, it refers only to time spent today by the signer, or if indicated, combined time spent today by collaborating physician/nurse practitioner. Celestine Hampton MD Dec 09, 2016 10:26 Celestine Hampton MD Dec 09, 2016 10:26
[2016-12-09] MEDS: THIAMINE INJ 100 MG in SODIUM CHLORIDE 0.9% INJ 100 ML IV SCH (12:45)
--- NOTE | 2016-12-09 13:33 | HHI.GIFU ---
Subjective Remarks Patient is awake, accompanied by a friend. Denies abd pain. (Fransisco Morel) Objective Vitals I&O Vital Signs Date Time Temp Pulse Resp B/P Pulse Ox O2 Delivery O2 Flow Rate FiO2 12/09/16 11:57 99 40 12/09/16 08:21 100 40 12/09/16 07:00 105 28 128/64 99 12/09/16 06:30 103 24 123/57 100 12/09/16 06:00 102 12/09/16 06:00 102 23 122/57 99 12/09/16 05:30 104 28 124/59 99 12/09/16 05:00 104 33 125/60 100 12/09/16 04:30 101 21 116/58 99 12/09/16 04:00 106 26 126/60 99 12/09/16 04:00 40 12/09/16 04:00 106 26 126/60 99 12/09/16 04:00 106 12/09/16 04:00 99.4 106 23 126/60 99 12/09/16 03:41 100 40 12/09/16 03:30 110 24 129/60 100 12/09/16 03:00 109 40 129/62 100 12/09/16 02:30 109 32 141/66 100 12/09/16 02:00 110 12/09/16 02:00 110 25 138/63 99 12/09/16 01:30 109 25 136/64 99 12/09/16 01:14 99 40 12/09/16 01:00 110 25 141/63 99 12/09/16 00:30 109 25 137/63 100 12/09/16 00:00 100.9 111 25 141/65 98 12/09/16 00:00 111 24 141/65 99 12/09/16 00:00 111 12/09/16 00:00 111 24 141/65 99 12/09/16 00:00 100.9 111 25 141/65 98 12/09/16 00:00 40 12/08/16 23:30 109 20 138/65 99 12/08/16 23:00 113 25 141/67 98 12/08/16 22:51 98 40 12/08/16 22:30 112 25 136/67 98 12/08/16 22:00 109 12/08/16 22:00 109 31 130/60 95 12/08/16 21:41 111 24 139/66 100 12/08/16 21:40 99.2 111 24 100 12/08/16 21:30 110 24 135/63 100 12/08/16 21:25 100.0 110 25 137/64 99 12/08/16 21:15 110 24 137/64 99 12/08/16 21:00 112 25 138/63 99 12/08/16 20:31 114 26 141/65 98 12/08/16 20:00 40 12/08/16 20:00 110 12/08/16 20:00 101.0 110 25 137/61 99 12/08/16 20:00 110 25 126/58 100 12/08/16 20:00 100 Mechanical Ventilator 5.00 40 12/08/16 19:48 100 40 12/08/16 18:00 109 12/08/16 16:00 99.7 115 27 136/69 97 12/08/16 16:00 40 12/08/16 16:00 115 12/08/16 14:00 103 I/O 12/08/16 12/08/16 12/08/16 12/09/16 12/09/16 12/09/16 07:00 15:00 23:00 07:00 15:00 23:00 Intake Total 1221 ml 1373 ml 1107 ml 1789 ml Output Total 800 ml 925 ml 565 ml 650 ml Balance 421 ml 448 ml 542 ml 1139 ml Intake Oral 0 ml 0 ml IV Total 871 ml 1123 ml 797 ml 957 ml Packed Cells 302 ml Other 350 ml 250 ml 310 ml 530 ml Output Urine Total 400 ml 325 ml 325 ml 450 ml Stool Total 200 ml 400 ml 200 ml 100 ml Gastric Drainage Total 200 ml 200 ml 40 ml 100 ml Chest Tube Drainage Total 0 ml 0 ml 0 ml Laboratory Laboratory Tests Test 12/08/16 12/08/16 12/09/16 15:12 18:00 04:03 White Blood Count 5.9 6.3 Red Blood Count 2.27 2.58 Hemoglobin 6.9 7.7 Hematocrit 21.2 24.2 Mean Corpuscular Volume 93.6 93.6 Mean Corpuscular Hemoglobin 30.5 29.6 Mean Corpuscular Hemoglobin 32.6 31.7 Concent Red Cell Distribution Width 16.0 16.5 Platelet Count 348 341 Mean Platelet Volume 7.2 6.4 Neutrophils (%) (Auto) 81.8 81.7 Lymphocytes (%) (Auto) 11.0 11.1 Monocytes (%) (Auto) 6.5 6.3 Eosinophils (%) (Auto) 0.4 0.5 Basophils (%) (Auto) 0.3 0.4 Neutrophils # (Auto) 4.8 5.1 Lymphocytes # (Auto) 0.6 0.7 Monocytes # (Auto) 0.4 0.4 Eosinophils # (Auto) 0.0 0.0 Basophils # (Auto) 0.0 0.0 CBC Comment DIFF FINAL DIFF FINAL Differential Comment Sodium Level 149 146 Potassium Level 3.8 3.1 Chloride Level 118 115 Carbon Dioxide Level 21.4 22.0 Anion Gap 10 9 Blood Urea Nitrogen 59 61 Creatinine 2.54 2.47 Estimat Glomerular Filtration 26 27 Rate Random Glucose 108 97 Calcium Level 7.2 7.8 Protein Corrected Calcium 8.9 Phosphorus Level 5.4 4.6 Magnesium Level 2.1 2.1 Total Protein 4.2 Blood Type A POSITIVE Antibody Screen NEGATIVE Crossmatch Leukocyte-Reduced Red Blood Cells Blood Bank Comment Date/Time Procedure Status Source Growth 12/09/16 09:54 Aerobic Blood Culture Received Blood Peripheral Pending 12/09/16 09:54 Anaerobic Blood Culture Received Blood Peripheral Pending 12/07/16 21:25 Aerobic Blood Culture - Preliminary Resulted Blood Peripheral NO GROWTH IN 2 DAYS 12/07/16 21:25 Anaerobic Blood Culture - Preliminary Resulted Blood Peripheral NO GROWTH IN 2 DAYS 12/07/16 16:20 Gram Stain - Final Complete Sputum Endotracheal 12/07/16 16:20 Sputum Culture - Final Complete Pseudomonas Aeruginosa 12/07/16 15:10 Urine Culture - Final Complete Urine Catheterized Urine Marquita Tropical[facility] Imaging Last Impressions Chest X-Ray 12/09/16 0000 Signed Impressions: Service Date/Time: Friday, December 09, 2016 07:39 - CONCLUSION: Interval retraction of right thoracostomy tube with redevelopment of large basilar pneumothorax Agustin Pérez MD Renal Ultrasound 12/07/16 0000 Signed Impressions: Service Date/Time: Wednesday, December 07, 2016 10:08 - CONCLUSION: Unremarkable renal ultrasound and a trace of ascites identified. Reba Banerjee MD Abdomen X-Ray 12/07/16 0000 Signed Impressions: Service Date/Time: Wednesday, December 07, 2016 16:16 - CONCLUSION: Limited study but no free air seen. Jhoan Bishop MD Small Bowel X-Ray 12/06/16 0000 Signed Impressions: Service Date/Time: Tuesday, December 06, 2016 16:55 - CONCLUSION: Distended loops of small bowel could be due to significant ileus versus partial small bowel obstruction and contrast gets into the colon at 13 hours. Reba Banerjee MD Abdomen Ultrasound 12/06/16 0000 Signed Impressions: Service Date/Time: Tuesday, December 06, 2016 11:31 - CONCLUSION: No free fluid is present. Agustin Bonner MD Abdomen/Pelvis CT 12/05/16 0000 Signed Impressions: Service Date/Time: November 23:28 - CONCLUSION: 1. Small bowel dilatation which may related to ileus or obstruction. The findings are similar to the prior exam. 2. Moderate ascites 3. Small pneumoperitoneum is present. Toribio Magana MD Brain MRI 11/21/16 0000 Signed Impressions: Service Date/Time: November 12:33 - CONCLUSION: Multifocal areas of restricted diffusion primarily in the periventricular and subcortical white matter bilaterally but also cortically based in the right frontal lobe. Findings likely represent ischemic change likely related to septic emboli given the patient's clinical history. No abscess or enhancing lesion is visualized. Agustin Bonner MD Head CT 11/17/16 0600 Signed Impressions: Service Date/Time: Thursday, November 17, 2016 10:39 - CONCLUSION: No significant change has occurred. Deven Urrutia MD Chest CT 11/16/16 0000 Signed Impressions: Service Date/Time: Wednesday, November 16, 2016 20:36 - CONCLUSION: 1. New right chest tube in the posterior superior right pleural space. There continues to be a moderate right pleural effusion primarily seen at the base. Some degree of loculation may be present inferiorly. The effusion does not layer posteriorly. There are scattered punctate areas of air within the pleural space inferiorly on the right. There is a solitary small area of air within the mild left pleural effusion. 2. Numerous irregular masses seen throughout both lungs some which are cavitary. These are nonspecific. Inflammatory masses needs be suspected. The multiplicity raises possibility of septic emboli. Agustin Price MD CT Angiography 11/13/16 1328 Signed Impressions: Service Date/Time: Sunday, November 13, 2016 15:50 - CONCLUSION: 1. Multiple cavitary lesions within both lungs with the largest measuring 9.5 cm in the right upper lobe. Differential diagnosis includes infectious and neoplastic etiologies. 2. Moderate sized right pleural effusion with adjacent compressive atelectasis and/or infiltrate. 3. Cardiomegaly and coronary artery calcifications. 4. Subcarinal mediastinal lymphadenopathy. 5. Degenerative changes throughout the thoracic spine. Jed Ponce MD Physical Exam HEENT: Normocephalic; atraumatic. PERRLA. CHEST: Trach to vent, course breath sounds. CARDIAC: RRR RESPIRATORY: CTA ABDOMEN: soft, nondistended, no guarding. Bowel sounds present EXTREMITIES: 1+ pitting edema bilateral LE and UE SKIN: Warm/dry AD OPERATIONS INTERN: Awake, follows commands, On ventilator via tracheostomy. (Fransisco MorelP ) Assessment and Plan Plan ASSESSMENT - Abdominal distention, worsening. Abdomen X-Ray (12/04/16)-----> Dilatation of the small bowel with a pattern suggesting small bowel obstruction. Pt with significant distention, tympanic abdomen. (+) Stool. KUB with possible SBO. Abdomen/Pelvis CT (12/04/16)----> 1. Free air in the abdomen of uncertain etiology. It is unlikely to be related to the pneumothorax. The patient does have a new G-tube. 2. Dilated small bowel proximally although the only real area of wall thickening in the jejunum that I see is proximal to the small bowel distention. The distal small bowel is not nearly as distended but I don't see an obvious transition zone. There is a normal amount of stool in the right colon. 3. Right-sided pneumothorax despite the placement of a chest tube anteriorly. Moderate sized left pleural effusion. 4. The free air was relayed to the nurse practitioner shortly after the completion of the study. Rpt CT scan abdomen and pelvis with PO contrast (12/05/16)------> 1. Small bowel dilatation which may related to ileus or obstruction. The findings are similar to the prior exam. 2. Moderate ascites 3. Small pneumoperitoneum is present. Suspect severe ileus with small pneumoperitoneum from PEG tube placement. GS following. Continues to have significant distention. Small Bowel X-Ray --Distended loops of small bowel could be due to significant ileus versus partial small bowel obstruction and contrast gets into the colon at 13 hours. Abdomen X-Ray 12/07/16-- Limited study but no free air seen. Abdomen Ultrasound 12/06/16--No free fluid is present. - Abdominal pain. No guarding on abdominal palpation. SBFT as above. PPI. - Abnormal imaging with persistent luminal narrowing at the gastroduodenal junction without definite focal mass- okay on EGD. S/P EGD with PEG placement (11/29/16)-----> normal esophagus, normal stomach, normal duodenum, successful PEG tube placement - Anemia. Likely multifactorial. No active bleeding. HH 7.07/10.6. - Elevated alk phosphatase. Normalized. Hepatitis panel negative. T. Bili 0.7, AST 12, ALT < 6, ALk PHosph 66. - Bilateral cavitary lung lesions, right sided pleural effusion. CT Angiography (11/13/16)----> 1. Multiple cavitary lesions within both lungs with the largest measuring 9.5 cm in the right upper lobe. Differential diagnosis includes infectious and neoplastic etiologies. 2. Moderate sized right pleural effusion with adjacent compressive atelectasis and/or infiltrate. 3. Cardiomegaly and coronary artery calcifications. 4. Subcarinal mediastinal lymphadenopathy. Degenerative changes throughout the thoracic spine. S/P CT , but pt pulled out on 11/15. Pleural fluid with staphylococcus aureus. CT replaced. He became tachypneic on 11/[address] chest (11/16/16) ---> Right hydropneumothorax and bilateral cavitary masses greatest in the right upper lobe. CXR as above. Pulm/ID/CCM following. Zosyn, diflucan - Sepsis with endocarditis and septic emboli. Abnormal 2D echo with moderate aortic regurgitation and CHANDNI with large vegetation. S/P CVT evaluation, no plans for surgical intervention at this time. Brain MRI (11/21/16)-----> Multifocal areas of restricted diffusion primarily in the periventricular and subcortical white matter bilaterally but also cortically based in the right frontal lobe. Findings likely represent ischemic change likely related to septic emboli given the patient's clinical history. No abscess or enhancing lesion is visualized. Abx per ID/CCM. Zosyn, diflucan. WBC 8 - Respiratory failure - per CCM s/p bronch, chest tube insertion, intubation 12-09-16- patient is awake, no abd pain, PEG tube was to suction but has been clamped all morning and patient did well. PLAN: - Okay to start trickle feeding then advance as tolerated - PEG to LIWS if not tolerating TF, this was discussed with nurse - Cont. Miralax - Monitor stool output - Abx per ID/CCM - CCM following - ID following - GS following - Supportive care - Further recommendations to follow based on results of above Patient seen and examined by Dr. Smith and myself and this note is written on his behalf (Fransisco Morel) Physician Comments Patient seen and examined Agree with above Continue with current supportive care Monitor labs Consider changing G-tube to GJ tube if nausea and vomiting persist and patient is unable to tolerate tube feeds Otherwise not much to add from a GI perspective (Melquiades Smith MD) Fransisco Morel Dec 09, 2016 13:33 Melquiades Smith MD Dec 09, 2016 22:41
--- NOTE | 2016-12-09 14:24 | HHI.PR ---
Subjective Subjective Notes Resting in bed Able to nod yes and no to questions; nods no when asked about abdominal pain Objective Vitals/I&O Vital Signs Date Time Temp Pulse Resp B/P Pulse Ox O2 Delivery O2 Flow Rate FiO2 12/09/16 13:57 99 40 12/09/16 07:00 105 28 128/64 12/09/16 04:00 99.4 12/08/16 20:00 Mechanical Ventilator 5.00 Labs Laboratory Tests Test 12/08/16 12/08/16 12/09/16 15:12 18:00 04:03 White Blood Count 5.9 6.3 Red Blood Count 2.27 2.58 Hemoglobin 6.9 7.7 Hematocrit 21.2 24.2 Mean Corpuscular Volume 93.6 93.6 Mean Corpuscular Hemoglobin 30.5 29.6 Mean Corpuscular Hemoglobin 32.6 31.7 Concent Red Cell Distribution Width 16.0 16.5 Platelet Count 348 341 Mean Platelet Volume 7.2 6.4 Neutrophils (%) (Auto) 81.8 81.7 Lymphocytes (%) (Auto) 11.0 11.1 Monocytes (%) (Auto) 6.5 6.3 Eosinophils (%) (Auto) 0.4 0.5 Basophils (%) (Auto) 0.3 0.4 Neutrophils # (Auto) 4.8 5.1 Lymphocytes # (Auto) 0.6 0.7 Monocytes # (Auto) 0.4 0.4 Eosinophils # (Auto) 0.0 0.0 Basophils # (Auto) 0.0 0.0 CBC Comment DIFF FINAL DIFF FINAL Differential Comment Sodium Level 149 146 Potassium Level 3.8 3.1 Chloride Level 118 115 Carbon Dioxide Level 21.4 22.0 Anion Gap 10 9 Blood Urea Nitrogen 59 61 Creatinine 2.54 2.47 Estimat Glomerular Filtration 26 27 Rate Random Glucose 108 97 Calcium Level 7.2 7.8 Protein Corrected Calcium 8.9 Phosphorus Level 5.4 4.6 Magnesium Level 2.1 2.1 Total Protein 4.2 Blood Type A POSITIVE Antibody Screen NEGATIVE Crossmatch Leukocyte-Reduced Red Blood Cells Blood Bank Comment Date/Time Procedure Status Source Growth 12/09/16 09:54 Aerobic Blood Culture Received Blood Peripheral Pending 12/09/16 09:54 Anaerobic Blood Culture Received Blood Peripheral Pending 12/07/16 21:25 Aerobic Blood Culture - Preliminary Resulted Blood Peripheral NO GROWTH IN 2 DAYS 12/07/16 21:25 Anaerobic Blood Culture - Preliminary Resulted Blood Peripheral NO GROWTH IN 2 DAYS 12/07/16 16:20 Gram Stain - Final Complete Sputum Endotracheal 12/07/16 16:20 Sputum Culture - Final Complete Pseudomonas Aeruginosa 12/07/16 15:10 Urine Culture - Final Complete Urine Catheterized Urine Marquita Tropicalis Radiology Last Impressions Renal Ultrasound 12/07/16 0000 Signed Impressions: Service Date/Time: Wednesday, December 07, 2016 10:08 - CONCLUSION: Unremarkable renal ultrasound and a trace of ascites identified. Reba Banerjee MD Abdomen X-Ray 12/07/16 0000 Signed Impressions: Service Date/Time: Wednesday, December 07, 2016 16:16 - CONCLUSION: Limited study but no free air seen. Jhoan Bishop MD Chest X-Ray 12/06/16 0600 Signed Impressions: Service Date/Time: Tuesday, December 06, 2016 04:02 - CONCLUSION: 1. Cardiomegaly 2. Patchy alveolar disease characteristic of edema or pneumonia. There has been no significant change when compared to the prior exam. Toribio Magana MD Small Bowel X-Ray 12/06/16 0000 Signed Impressions: Service Date/Time: Tuesday, December 06, 2016 16:55 - CONCLUSION: Distended loops of small bowel could be due to significant ileus versus partial small bowel obstruction and contrast gets into the colon at 13 hours. Reba Banerjee MD Abdomen Ultrasound 12/06/16 0000 Signed Impressions: Service Date/Time: Tuesday, December 06, 2016 11:31 - CONCLUSION: No free fluid is present. Agustin Bonner MD Abdomen/Pelvis CT 12/05/16 0000 Signed Impressions: Service Date/Time: November 23:28 - CONCLUSION: 1. Small bowel dilatation which may related to ileus or obstruction. The findings are similar to the prior exam. 2. Moderate ascites 3. Small pneumoperitoneum is present. Toribio Magana MD Brain MRI 11/21/16 0000 Signed Impressions: Service Date/Time: November 12:33 - CONCLUSION: Multifocal areas of restricted diffusion primarily in the periventricular and subcortical white matter bilaterally but also cortically based in the right frontal lobe. Findings likely represent ischemic change likely related to septic emboli given the patient's clinical history. No abscess or enhancing lesion is visualized. Agustin Bonner MD Head CT 11/17/16 0600 Signed Impressions: Service Date/Time: Thursday, November 17, 2016 10:39 - CONCLUSION: No significant change has occurred. Deven Urrutia MD Chest CT 11/16/16 0000 Signed Impressions: Service Date/Time: Wednesday, November 16, 2016 20:36 - CONCLUSION: 1. New right chest tube in the posterior superior right pleural space. There continues to be a moderate right pleural effusion primarily seen at the base. Some degree of loculation may be present inferiorly. The effusion does not layer posteriorly. There are scattered punctate areas of air within the pleural space inferiorly on the right. There is a solitary small area of air within the mild left pleural effusion. 2. Numerous irregular masses seen throughout both lungs some which are cavitary. These are nonspecific. Inflammatory masses needs be suspected. The multiplicity raises possibility of septic emboli. Agustin Price MD CT Angiography 11/13/16 1328 Signed Impressions: Service Date/Time: Sunday, November 13, 2016 15:50 - CONCLUSION: 1. Multiple cavitary lesions within both lungs with the largest measuring 9.5 cm in the right upper lobe. Differential diagnosis includes infectious and neoplastic etiologies. 2. Moderate sized right pleural effusion with adjacent compressive atelectasis and/or infiltrate. 3. Cardiomegaly and coronary artery calcifications. 4. Subcarinal mediastinal lymphadenopathy. 5. Degenerative changes throughout the thoracic spine. Jed Ponce MD Cardiovascular: Regular Lungs: Clear Abdomen: Other (distended; non tender; PEG in place ) Extremities: No edema Narrative Exam trach in place A/P Problem List: (1) S/P percutaneous endoscopic gastrostomy (PEG) tube placement Assessment and Plan 56 year old male with multiple medical problems; s/p trach; now with distended abdomen and CT showing free air -Stable -Continue to follow abdominal exam -Okay to start trickle feeds -Monitor WBC -We will continue to monitor Attending Note - Dr. Davidson Abdomen is benign Free air due to recent PEG tube placement Will follow The exam, history, and the medical decision-making described in the above note were completed with the assistance of the mid-level provider. I reviewed and agree with the findings presented. I attest that I had a [id number] encounter with the patient on the same day, and personally performed and documented my assessment and findings in the medical record. Carey Barnett Dec 09, 2016 14:24 Krzysztof Davidson MD Dec 13, 2016 18:47
--- NOTE | 2016-12-09 15:55 | RADRPT ---
EXAM DATE/TIME: 12/09/2016 14:53 [facility] COMPARISON: No previous studies available for comparison. INDICATIONS : Patient is in need of placement of additional right chest tube due to pneumothorax. MEDICAL HISTORY : History of respiratory failure, pneumonia, anemia, edema, cardiomegaly, ascites, hyponatremia. SURGICAL HISTORY : History of tracheostomy, gasrostomy tube placement. ENCOUNTER: Initial ACUITY: 1 month PAIN SCORE: 0/10 LOCATION: Patient is vented. FLUORO TIME: 4.7 minutes IMAGE SERIES: 0 DEVICE(S): 1.) 16 Austrian non-locking catheter 30 cm Expel drainage catheter PROCEDURE : 1. Fluoroscopically guided chest tube placement. 2. Conscious sedation with continuous EKG and oximetry monitoring. The risks, benefits and alternatives to the procedure were explained and verbal and written consent w as obtained. The site was prepped in sterile fashion. Full sterile technique was used, including ca p, mask, sterile gloves and gown and a large sterile sheet. Hand hygiene and 2% chlorhexidine and/or betadine/alcohol prep was utilized per protocol for cutaneous antisepsis. The skin and subcutaneous tissues were infiltrated with local anesthetic solution. With fluoroscopic guidance the chest was punctured in the low lateral anterior chest and the prescrib ed catheter was placed into the pleural space. Wall suction was applied. The lung was observed to re expand. Post procedure images demonstrate satisfactory position of the tube. The catheter was suture d in place and a sterile dressing was applied Conscious sedation was performed with the prescribed dosages and duration as above in the presence of an independent trained radiology nurse to assist in the monitoring of the patient. EKG and oximetry remained stable throughout the procedure. The patient tolerated the procedure well and there were n o complications. The patient was sent to post anesthesia recovery in stable condition. CONCLUSION: Uncomplicated chest tube placement as above. Agustin Pérez MD on December 09, 2016 at 15:52 Board Certified Radiologist. This report was verified electronically.
--- NOTE | 2016-12-09 16:22 | HHI.NPPN ---
Subjective General Problems: Anemia, Edema, Hypotension Renal Failure: Acute History of Present Illness This is 56 years old male, with Resp. failure, post tracheostomy, develop MENDY. Additional Remarks Patient remain on the vent, open eyes on command, not following, clinically same , seen after the chest tube insertion. Objective Data Data 12/08/16 12/09/16 19:00 07:00 Intake Total 1373 ml 2896 ml Output Total 925 ml 1215 ml Balance 448 ml 1681 ml Intake Oral 0 ml IV Total 1123 ml 1754 ml Packed Cells 302 ml Other 250 ml 840 ml Output Urine Total 325 ml 775 ml Stool Total 400 ml 300 ml Gastric Drainage Total 200 ml 140 ml Chest Tube Drainage Total 0 ml 0 ml Vital Signs Date Time Temp Pulse Resp B/P Pulse Ox O2 Delivery O2 Flow Rate FiO2 12/09/16 16:03 99 40 12/09/16 15:19 99 100 12/09/16 13:57 99 40 12/09/16 11:57 99 40 12/09/16 08:21 100 40 12/09/16 07:00 105 28 128/64 99 12/09/16 06:30 103 24 123/57 100 12/09/16 06:00 102 12/09/16 06:00 102 23 122/57 99 12/09/16 05:30 104 28 124/59 99 12/09/16 05:00 104 33 125/60 100 12/09/16 04:30 101 21 116/58 99 12/09/16 04:00 106 26 126/60 99 12/09/16 04:00 40 12/09/16 04:00 106 26 126/60 99 12/09/16 04:00 106 12/09/16 04:00 99.4 106 23 126/60 99 12/09/16 03:41 100 40 12/09/16 03:30 110 24 129/60 100 12/09/16 03:00 109 40 129/62 100 12/09/16 02:30 109 32 141/66 100 12/09/16 02:00 110 12/09/16 02:00 110 25 138/63 99 12/09/16 01:30 109 25 136/64 99 12/09/16 01:14 99 40 12/09/16 01:00 110 25 141/63 99 12/09/16 00:30 109 25 137/63 100 12/09/16 00:00 100.9 111 25 141/65 98 12/09/16 00:00 111 24 141/65 99 12/09/16 00:00 111 12/09/16 00:00 111 24 141/65 99 12/09/16 00:00 100.9 111 25 141/65 98 12/09/16 00:00 40 12/08/16 23:30 109 20 138/65 99 12/08/16 23:00 113 25 141/67 98 12/08/16 22:51 98 40 12/08/16 22:30 112 25 136/67 98 12/08/16 22:00 109 12/08/16 22:00 109 31 130/60 95 12/08/16 21:41 111 24 139/66 100 12/08/16 21:40 99.2 111 24 100 12/08/16 21:30 110 24 135/63 100 12/08/16 21:25 100.0 110 25 137/64 99 12/08/16 21:15 110 24 137/64 99 12/08/16 21:00 112 25 138/63 99 12/08/16 20:31 114 26 141/65 98 12/08/16 20:00 40 12/08/16 20:00 110 12/08/16 20:00 101.0 110 25 137/61 99 12/08/16 20:00 110 25 126/58 100 12/08/16 20:00 100 Mechanical Ventilator 5.00 40 12/08/16 19:48 100 40 12/08/16 18:00 109 -: 12/09/16 0403 12/09/16 0403 Microbiology 12/09/16 Aerobic Blood Culture, Received Pending 12/09/16 Anaerobic Blood Culture, Received Pending 12/09/16 Aerobic Blood Culture, Received Pending 12/09/16 Anaerobic Blood Culture, Received Pending Physical Exam General Appearance Remarks On the vent. with Trach., open eyes spontaneously. Eyes Eye Exam: Pupils Equal Throat Throat Exam: Oral Mucosa [place] & Moist Neck Neck Exam: Neck Supple Pulmonary Resp Exam: No Distress, Crackles, Rhonchi, Decreased Bases, Diminished Breath Sounds Cardiology CV Exam: Tachycardia Gastrointestinal/Abdomen GI Exam: Soft, Non-Tender, Bowel Sounds Present, Distended Extremeties Extremities Exam: Moderate Edema, Pitting Edema, Dependent Edema Neurologic Neuro Exam: Obtunded Assessment/Plan Assessment Summary: MENDY/Acute Renal Failure, Hypotension Problem List: (1) Leukocytosis (2) Acute respiratory insufficiency (3) Sepsis (4) multiple pulmonary cavitary lesions (5) severe encephalopathy, likely due to sepsis and multiple embolic infarctions (6) Acute kidney injury Plan Urine out put is better. BP is still on lower side, but better. Urine Na. is normal, most likely has ATN causing MENDY. Continue antibiotics and IVF. Avoid Nephrotoxins. Now has chest tube. Creatinine is almost same. Continue IVF. Problem Qualifiers (1) Sepsis: Qualified Code: A41.9 - Sepsis, due to unspecified organism Otoniel Mireles MD Dec 09, 2016 16:22
--- NOTE | 2016-12-09 16:33 | PD.RAD ---
Post Procedure Progress Note Pre Procedure Diagnosis: (1) Pneumothorax Post Procedure Diagnosis: (1) Pneumothorax Procedure Date: Dec 09, 2016 Supervising Radiologist: Agustin Pérez Proceduralist/Assist: RT Kianna(R) Anesthesia: Local, Conscious Sedation Plan of Activity Patient to Unit: Critical Care Patient Condition: Critical See PACS Report for procedural detail/treatment Drainage Procedure Procedure 1 Imaging Guidance: Fluoroscopy Side: Right Procedure Type: Chest Tube Non-Tunneled Procedure: Placement [place]: 16 Drainage: Pleurovac Agustin Pérez MD Dec 09, 2016 16:33
--- NOTE | 2016-12-09 17:17 | RADRPT ---
EXAM DATE/TIME: 12/09/2016 16:36 [facility] COMPARISON: CHEST SINGLE AP, December 09, 2016, 7:39. INDICATIONS : Post chest tube placement right side MEDICAL HISTORY : Sepsis. pulmonary cavitary lesion SURGICAL HISTORY : chest tube x 2 ENCOUNTER: Subsequent ACUITY: 1 month PAIN SCORE: Non-responsive. LOCATION: Bilateral chest FINDINGS: In the interval from the prior study there has been placement of a small caliber thoracostomy tube wi thin the inferior right hemithorax. There has been resolution of the subpulmonic pneumothorax. A larg e caliber right thoracostomy tube remains laterally within the hemithorax with the sidehole just with in the chest cavity. Tracheostomy tube noted. Bibasilar parenchymal consolidations are unchanged. Mil d cardiomegaly is stable. CONCLUSION: Right-sided chest tube placed with resolution of the subpulmonic pneumothorax. Bibasilar infiltrates are unchanged. Keyur Toro Jr., MD on December 09, 2016 at 17:13 Board Certified Radiologist. This report was verified electronically.
[2016-12-09] MEDS: FLUCONAZOLE 200 MG PREMIX BAG 100 ML IV SCH (17:28)
[2016-12-09] MEDS: SODIUM CHLORIDE 0.9% FLUSH 10 ML FLUSH IVF SCH (17:29)
--- NOTE | 2016-12-09 19:39 | HHI.PR ---
Subjective Remarks Patient was intubated last night for acute hypoxemic resp failure and a right chest tube was placed for right hydroPTX in addition patient underwent bronch with BAL ( mucous plugs b/l suctioned to clear). MRI brain multifocal area of septic emboli/infarct Had Trach and PEG Tolerates TF Abd less distended had chest pigtail cathetor Tolerated CPAP Now, on PRVC, Fi02 40% Objective Vital Signs Vital Signs Date Time Temp Pulse Resp B/P Pulse Ox O2 Delivery O2 Flow Rate FiO2 12/09/16 16:03 99 40 12/09/16 15:19 99 100 12/09/16 13:57 99 40 12/09/16 11:57 99 40 12/09/16 08:21 100 40 12/09/16 07:00 105 28 128/64 99 12/09/16 06:30 103 24 123/57 100 12/09/16 06:00 102 12/09/16 06:00 102 23 122/57 99 12/09/16 05:30 104 28 124/59 99 12/09/16 05:00 104 33 125/60 100 12/09/16 04:30 101 21 116/58 99 12/09/16 04:00 106 26 126/60 99 12/09/16 04:00 40 12/09/16 04:00 106 26 126/60 99 12/09/16 04:00 106 12/09/16 04:00 99.4 106 23 126/60 99 12/09/16 03:41 100 40 12/09/16 03:30 110 24 129/60 100 12/09/16 03:00 109 40 129/62 100 12/09/16 02:30 109 32 141/66 100 12/09/16 02:00 110 12/09/16 02:00 110 25 138/63 99 12/09/16 01:30 109 25 136/64 99 12/09/16 01:14 99 40 12/09/16 01:00 110 25 141/63 99 12/09/16 00:30 109 25 137/63 100 12/09/16 00:00 100.9 111 25 141/65 98 12/09/16 00:00 111 24 141/65 99 12/09/16 00:00 111 12/09/16 00:00 111 24 141/65 99 12/09/16 00:00 100.9 111 25 141/65 98 12/09/16 00:00 40 12/08/16 23:30 109 20 138/65 99 12/08/16 23:00 113 25 141/67 98 12/08/16 22:51 98 40 12/08/16 22:30 112 25 136/67 98 12/08/16 22:00 109 12/08/16 22:00 109 31 130/60 95 12/08/16 21:41 111 24 139/66 100 12/08/16 21:40 99.2 111 24 100 12/08/16 21:30 110 24 135/63 100 12/08/16 21:25 100.0 110 25 137/64 99 12/08/16 21:15 110 24 137/64 99 12/08/16 21:00 112 25 138/63 99 12/08/16 20:31 114 26 141/65 98 12/08/16 20:00 40 12/08/16 20:00 110 12/08/16 20:00 101.0 110 25 137/61 99 12/08/16 20:00 110 25 126/58 100 12/08/16 20:00 100 Mechanical Ventilator 5.00 40 12/08/16 19:48 100 40 I/O 12/08/16 12/08/16 12/08/16 12/09/16 12/09/16 12/09/16 07:00 15:00 23:00 07:00 15:00 23:00 Intake Total 1221 ml 1373 ml 1107 ml 1789 ml Output Total 800 ml 925 ml 565 ml 650 ml Balance 421 ml 448 ml 542 ml 1139 ml Intake Oral 0 ml 0 ml IV Total 871 ml 1123 ml 797 ml 957 ml Packed Cells 302 ml Other 350 ml 250 ml 310 ml 530 ml Output Urine Total 400 ml 325 ml 325 ml 450 ml Stool Total 200 ml 400 ml 200 ml 100 ml Gastric Drainage Total 200 ml 200 ml 40 ml 100 ml Chest Tube Drainage Total 0 ml 0 ml 0 ml Result Diagram: 12/09/1640212/09/16402 Objective Remarks GENERAL: Patient is 56 yo critically ill intubated , sedated and on pressors. SKIN: Warm and dry. HEAD: Normocephalic. EYES: No scleral icterus. No injection or drainage. NECK: Supple, trachea midline. No JVD or lymphadenopathy. CARDIOVASCULAR: Regular rate and rhythm without murmurs, gallops, or rubs. RESPIRATORY: Breath sounds equal bilaterally. No accessory muscle use. GASTROINTESTINAL: Abdomen soft, non-tender, distended., tympanic MUSCULOSKELETAL: No cyanosis, or edema. Neuro: Sedated and intubated A/P Assessment and Plan 1VDRF 2)Septic shock 3)Staph Aureus bacteremia 4)Empyema 6)Endocarditis involving AV 7)Leucocytosis 8)Cavitary pulm masses 2nd staph Aureus 9)Right hydroPTX PLAN: Continue with vent support keep sat >92% Bronchodilators, ICU vent bundle, on stress dose steroids- Abx per ID Chest tube to suction Sedation with Diprivan and fentanyl CPAP trial OK to remove trach stitches in AM Emmett Bolton MD Dec 09, 2016 19:39
[2016-12-09] MEDS: fentaNYL DRIP 250 ML IV SCH (22:26)
[2016-12-10] VITALS (16 sets, daily range): BP systolic 114–134; BP diastolic 55–62; PULSE 101–113; RESP 23–32; TEMP 98.4–101.6; O2SAT 94–100
[2016-12-10] MEDS: PIPERACIL-TAZO 2.25 GM PREMIX 50 ML IV SCH ×2 (01:28→15:05)
[2016-12-10] MEDS: CHLORHEXIDINE GLUCONATE 2 % 1 PACK (2 CLOTHS) TOP SCH (03:14)
[2016-12-10] MEDS: RESP: ALBUTEROL 2.5 MG/IPRATROPIUM 0.5 MG NEB (SCH) NEB ×2 (04:04→08:47)
[2016-12-10] MEDS: ARTIFICIAL TEARS OPTH SOLN 15 ML BTL EACH EYE SCH ×3 (04:41→20:20)
[2016-12-10] MEDS: INSULIN ASPART SUPPLEMENTAL SCALE SQ SCH ×4 (04:41→23:00)
[2016-12-10] MEDS: LORazepam 0.5 MG TAB PO SCH ×2 (04:41→18:01)
[2016-12-10] MEDS: FREE WATER G-TUBE SCH ×3 (04:41→23:04)
[2016-12-10 06:56] LABS: AUTOMATED NEUTROPHIL # 5.4 TH/MM3 (1.8-7.7); BASOPHIL % 0.3 % (0.0-2.0); EOSINOPHIL % 0.4 % (0.0-4.0); HEMATOCRIT 22.1 % (39.0-51.0); HEMO FLAGS DIFF FINAL; LYMPH % 14.1 % (9.0-44.0); LYMPHOCYTE # 0.9 TH/MM3 (1.0-4.8); MEAN CELL VOLUME 92.6 FL (80.0-100.0); MEAN CORPUSCULAR HEMOGLOBIN 30.5 PG (27.0-34.0); MEAN CORPUSCULAR HGB CONC 32.9 % (32.0-36.0); MONO % 3.9 % (0.0-8.0); NEUT % 81.3 % (16.0-70.0); PLATELET COUNT 276 TH/MM3 (150-450); RED BLOOD COUNT 2.39 MIL/MM3 (4.50-5.90); RED CELL DISTRIBUTION WIDTH 16.1 % (11.6-17.2); WHITE BLOOD COUNT 6.6 TH/MM3 (4.0-11.0)
[2016-12-10 07:07] LABS: BICARBONATE 22.3 MEQ/L (21.0-32.0)
[2016-12-10] MEDS: CHLORHEXIDINE 0.12% (ORAL KIT) 15 ML CUP MT SCH ×2 (07:47→20:00)
[2016-12-10] MEDS: PANTOPRAZOLE SODIUM 40 MG VIAL IV SCH ×2 (07:48→20:19)
[2016-12-10] MEDS: FOLIC ACID 1 MG TAB PO SCH (07:48)
[2016-12-10] MEDS: METOPROLOL TARTRATE 25 MG TAB PO SCH ×2 (07:48→20:19)
[2016-12-10] MEDS: MULTIVITAMIN TAB PO SCH (07:48)
[2016-12-10] MEDS: POLYETHYLENE GLYCOL 17 GM PKG PO SCH ×2 (07:49→20:19)
[2016-12-10] MEDS: ACETAMINOPHEN 325 MG TAB PO PRN (07:49)
[2016-12-10] MEDS: LACTULOSE SYRUP 20 GM/30 ML CUP PO SCH (07:49)
[2016-12-10] MEDS: SODIUM CHLORIDE 0.9% FLUSH 10 ML FLUSH IV FLUSH SCH ×2 (07:49→21:00)
[2016-12-10] MEDS: THIAMINE INJ 100 MG in SODIUM CHLORIDE 0.9% INJ 100 ML IV SCH (07:59)
[2016-12-10] MEDS: SODIUM CHLORIDE 0.9% FLUSH 10 ML FLUSH IVF SCH (09:00)
--- NOTE | 2016-12-10 10:28 | HHI.CCPN ---
Subjective Remarks/Hospital Course 56-year-old male is brought to the emergency department by EMS for evaluation of generalized weakness, confusion for about 2 weeks, and also increasing shortness of breath. His oxygen saturation was 88% on room air. EMS administered breathing treatments and Solu-Medrol 125 mg 1 and placed him on nasal cannula. Patient states that he had been sick for almost 10 days, but he is a poor historian. He had a productive cough, but reports no hematemesis or weight loss. He states that it was his neighbor who made him called EMS. He has no past medical history and last time had seen a doctor was about 15 years ago. He denies any fevers but reports some night sweats and chills. He was tachycardic with a heart rate of 115 bpm, had severe leukocytosis with a white count of 35,000 with 91% neutrophils. CMP shows hyponatremia with a sodium of 126. Lactic acid is 2.4. His Chest x-ray shows large 7.7 x 7.8 cm cavitary right midlung lesion with associated right-sided pleural effusion. Subcentimeter left mid lung pulmonary nodules. Patient received 1 L normal saline bolus and Zosyn 4.5 g and Zithromax 500 mg IV and was placed on TB/ respiratory isolation. He has been being in snf 2 years ago increasing his risk of tuberculosis. CT pulmonary angiogram negative for PE but showed multiple cavitary lesions within both lungs with the largest measuring 9.5 cm in the right upper lobe. Moderate size right pleural effusion. I evaluated the patient in the emergency department. Patient appears critically ill in moderate distress mildly tachypneic, sweating. I performed a bedside ultrasound which showed a right effusion which is large. The thoracentesis was performed and 1 L of cloudy dark pleural fluid was removed. Patient will be continued on Zosyn and Levaquin and vancomycin. ID consulted and I discussed with Dr. Steele-she recommended no empiric treatments for TB. 11/14/16: Patient seen and examined complaints of severe epigastric and periumbilical abdominal pain. Patient remains oriented to person. His white count is slightly improved from 35,000-28,9000. Na improved to 136. I have ordered a STAT CT abd/pelvis with IV contrast. Chest x-ray shows reaccumulation of right pleural effusion-fluid chemistries are pending but cell count indicates at least a parapneumonic effusion and patient will need a pigtail chest tube 11/15: Patient pulled his right-sided pigtail catheter out overnight last night. Currently nasal cannula in no acute distress. Afebrile. Continues to have a leukocytosis. 11/16: Currently on room air. Hold out his IVs reportedly overnight last night. Requesting diet. Awake and alert and following commands. 11/17: Intubated yesterday due to acute hypercapnic respiratory failure. Hypoxic post intubation requiring right chest tube placement, bronchoscopy and Flolan. Bronchoscopy revealed thick mucous plugging at bilateral right and left mainstem which were clear. Improved oxygenation over the past 12 hours. Afebrile. 11/18 Patient remains sedated with Diprivan, Fentanyl and intubated. On Vasopressin and Neosyn 120 mics. 11/19 Patient is sedated with Diprivan, Fentanyl and intubated. Afebrile. Off all pressors. Afebrile. WBC is trending down 30 today from 50. 11/20: Remains severely septic and encephalopathic even though weaned off all pressors. White count still elevated but trending down. Became extremely tachycardic and tachypneic on lowering sedation. We'll check MRI of the brain to rule out embolic infarct. Family at the bedside updated 11/21 Remains heavily sedated, remains encephalopathic. MRI brain is pending. Family is at bedside. Remains critically with resp failure severe from endocarditis, now unable to wean off the ventilator due to severe metabolic encephalopathy 11/22 No events overnight. Sedated with Diprivan, fentanyl and intubated. Afebrile. MRI brain yesterday showed ischemic changes likely related to septic emboli. 11/23: Patient remains encephalopathic, severe hyponatremia possible contributing , Na is 157 today. Currently on Precedex and fentanyl. CXR shows increasing L effusion 11/24: Patient more awake today. Follows Commands but did not tolerate spontaneous breathing trials. Had left pigtail chest tube placed yesterday 1.6 L transudative fluid removal since placement 11/25 Patient is sedated with Diprivan, Fentanyl and intubated. T:99.9 11/26 No events overnight. Sedated and intubated. Patient was on CPAP x 3 hrs yesterday then became tachypneic. 11/27: Resting in bed comfortably on Diprivan at 40 mics grams per kilogram per minute and fentanyl drip at 200 an hour. Tolerated PSV trial 2 hours yesterday before becoming tachypnea. Positive BM via fecal containment device 1100 cc. Yesterday according to RN was following commands. 11/28: Currently afebrile. Tolerating PSV trials 1.5 hours today for became tachypneic. Awake and alert and follows commands. Neurologically intact. Positive BM. 11/29: Tmax 99.6. Status post percutaneous tracheostomy secondary to failed extubation trials. Plan for PEG tube today. Awake and interactive the ventilator on sedation vacation. Subjective 11/30: DrAzael currently 98.8. Status post percutaneous tracheostomy Dr. Baker yesterday and PEG tube placement by Dr. Figueroa. Tube feeds will be resumed today. Otherwise appears comfortable ventilator. Arousable and follows commands on sedation vacation. 12/01: Patient becomes tachypneic on attempted CPAP, even with high pressure support. I will add by mouth Ativan to reduce IV sedation requirement. Decreasing chest tube output 12/02: Patient failed spontaneous breathing trial clinically today secondary to severe tachypnea and tachycardia. His spiking fever upto 103. Panculture blood , dose of vancomycin given. Most likely patient is getting new sepsis 12/03: Continued to spike fever up to 102. Dose of vancomycin was given yesterday. Patient tolerated CPAP for 3 hours today, remains encephalopathic though. 12/04: Patient more awake alert follows commands, tolerated CPAP but did not tolerate TPs. Abdomen significantly distended, KUB shows ileus. Continues to spike high fever. Diflucan vancomycin added by ID and continue Ancef 12/05: Abdomen remains distended, CT yesterday show intra abdominal free air. Unclear whether related to PEG or perforation. D/W with Dr. Baker, will get repeat CT with oral contrast today. Zosyn added by ID 12/06 Patient is sedated with Fentanyl and Diprivan. CT abdomen/pelvis yesterday sowed small bowel dilation ( ileus vs obstruction) 12/07 Patient remains intubated on low dose Diprivan and Fentanyl infusion however he is awake. Tolerated CPAP all day yesterday T: 100.0 last night. SB series showed distended loops of small bowel. Renal function worse today with Cr: 2.4 from 1.96. 12/08 No events overnight. On Diprivan and Fentanyl drip for sedation. T:99.9 last night. 12/09 Patient remains on ventilator via trach, sedated with Diprivan and Fentanyl. T: 101.0 last night. s/p transfusion 1unit PRBC yesterday. 12/10 Patient is sedate with Dip, Fentanyl and intubated. T: 101.6 at 8 am. Objective Vital Signs Date Time Temp Pulse Resp B/P Pulse Ox O2 Delivery O2 Flow Rate FiO2 12/10/16 10:00 108 12/10/16 08:52 99 35 12/10/16 08:00 101.6 23 122/62 12/10/16 07:00 Mechanical Ventilator 12/08/16 20:00 5.00 Intake and Output 12/09/16 12/09/16 12/10/16 08:00 16:00 00:00 Intake Total 1789 ml 1410 ml 942 ml Output Total 650 ml 890 ml 510 ml Balance 1139 ml 520 ml 432 ml Result Diagram: 12/10/1624 12/10/16623 Other Results Laboratory Tests Test 12/09/16 12/10/16 18:36 06:24 Potassium Level 3.1 MEQ/L 3.0 MEQ/L White Blood Count 6.6 TH/MM3 Red Blood Count 2.39 MIL/MM3 Hemoglobin 7.3 GM/DL Hematocrit 22.1 % Mean Corpuscular Volume 92.6 FL Mean Corpuscular Hemoglobin 30.5 PG Mean Corpuscular Hemoglobin 32.9 % Concent Red Cell Distribution Width 16.1 % Platelet Count 276 TH/MM3 Mean Platelet Volume 6.8 FL Neutrophils (%) (Auto) 81.3 % Lymphocytes (%) (Auto) 14.1 % Monocytes (%) (Auto) 3.9 % Eosinophils (%) (Auto) 0.4 % Basophils (%) (Auto) 0.3 % Neutrophils # (Auto) 5.4 TH/MM3 Lymphocytes # (Auto) 0.9 TH/MM3 Monocytes # (Auto) 0.3 TH/MM3 Eosinophils # (Auto) 0.0 TH/MM3 Basophils # (Auto) 0.0 TH/MM3 CBC Comment DIFF FINAL Differential Comment Sodium Level 147 MEQ/L Chloride Level 117 MEQ/L Carbon Dioxide Level 22.3 MEQ/L Anion Gap 8 MEQ/L Blood Urea Nitrogen 55 MG/DL Creatinine 2.41 MG/DL Estimat Glomerular Filtration 28 ML/MIN Rate Random Glucose 101 MG/DL Calcium Level 7.7 MG/DL Imaging Last Impressions Chest X-Ray 12/09/16 Signed Impressions: Service Date/Time: Friday, December 09, 2016 16:36 - CONCLUSION: Right-sided chest tube placed with resolution of the subpulmonic pneumothorax. Bibasilar infiltrates are unchanged. Keyur Toro Jr., MD Chest Tube Insertion 12/09/16 Signed Impressions: Service Date/Time: Friday, December 09, 2016 14:53 - CONCLUSION: Uncomplicated chest tube placement as above. Agustin Pérez MD Renal Ultrasound 12/07/16 Signed Impressions: Service Date/Time: Wednesday, December 07, 2016 10:08 - CONCLUSION: Unremarkable renal ultrasound and a trace of ascites identified. Reba Banerjee MD Abdomen X-Ray 12/07/16 Signed Impressions: Service Date/Time: Wednesday, December 07, 2016 16:16 - CONCLUSION: Limited study but no free air seen. Jhoan Bishop MD Small Bowel X-Ray 12/06/16 Signed Impressions: Service Date/Time: Tuesday, December 06, 2016 16:55 - CONCLUSION: Distended loops of small bowel could be due to significant ileus versus partial small bowel obstruction and contrast gets into the colon at 13 hours. Reba Banerjee MD Abdomen Ultrasound 12/06/16 0000 Signed Impressions: Service Date/Time: Tuesday, December 06, 2016 11:31 - CONCLUSION: No free fluid is present. Agustin Bonner MD Abdomen/Pelvis CT 12/05/16 0000 Signed Impressions: Service Date/Time: November 23:28 - CONCLUSION: 1. Small bowel dilatation which may related to ileus or obstruction. The findings are similar to the prior exam. 2. Moderate ascites 3. Small pneumoperitoneum is present. Toribio Magana MD Brain MRI 11/21/16 0000 Signed Impressions: Service Date/Time: November 12:33 - CONCLUSION: Multifocal areas of restricted diffusion primarily in the periventricular and subcortical white matter bilaterally but also cortically based in the right frontal lobe. Findings likely represent ischemic change likely related to septic emboli given the patient's clinical history. No abscess or enhancing lesion is visualized. Agustin Bonner MD Head CT 11/17/16 0600 Signed Impressions: Service Date/Time: Thursday, November 17, 2016 10:39 - CONCLUSION: No significant change has occurred. Deven Urrutia MD Chest CT 11/16/16 0000 Signed Impressions: Service Date/Time: Wednesday, November 16, 2016 20:36 - CONCLUSION: 1. New right chest tube in the posterior superior right pleural space. There continues to be a moderate right pleural effusion primarily seen at the base. Some degree of loculation may be present inferiorly. The effusion does not layer posteriorly. There are scattered punctate areas of air within the pleural space inferiorly on the right. There is a solitary small area of air within the mild left pleural effusion. 2. Numerous irregular masses seen throughout both lungs some which are cavitary. These are nonspecific. Inflammatory masses needs be suspected. The multiplicity raises possibility of septic emboli. Agustin Price MD CT Angiography 11/13/16 1328 Signed Impressions: Service Date/Time: Sunday, November 13, 2016 15:50 - CONCLUSION: 1. Multiple cavitary lesions within both lungs with the largest measuring 9.5 cm in the right upper lobe. Differential diagnosis includes infectious and neoplastic etiologies. 2. Moderate sized right pleural effusion with adjacent compressive atelectasis and/or infiltrate. 3. Cardiomegaly and coronary artery calcifications. 4. Subcarinal mediastinal lymphadenopathy. 5. Degenerative changes throughout the thoracic spine. Jed Ponce MD Objective Remarks GENERAL: 56-year-old male, critically ill currently on ventilator via tracheostomy, SKIN: Warm and dry. Scattered skin lesions erythematous predominantly left lower extremity HEAD: Normocephalic and atraumatic. EYES: No injection, drainage. Pupils equally round and reactive around 3 mm ENT: No nasal drainage noted. Oropharynx is clear. NECK: Supple. No JVD or thyromegaly or lymphadenopathy. Tracheostomy is clean dry and intact CARDIOVASCULAR: RR. S1, S2. No S4. No murmur not appreciated. RESPIRATORY: B/L equal air entry GASTROINTESTINAL: Abdomen is distended, tympanic, no guarding MUSCULOSKELETAL: +3 pitting edema bilateral lower extremities. Multiple erythematous raised lesions on bilateral lower extremity predominantly left lower leg NEUROLOGICAL: Patient is awake on the ventilator but encephalopathic Date of Insertion: Nov 16, 2016 Date of Removal: Nov 21, 2016 Line: Central Venous Catheter Side: Left Location: Internal, Jugular A/P Assessment and Plan NEURO/PSYCH: Metabolic encephalopathy Septic brain emboli Propofol and fentanyl for sedation and vent synchrony. Daily sedation vacation. Monitor neuro status Ativan 0.5 mg PO c4owels. EEG 11/24: Generalized encephalopathy without any significant epileptic activity. MRI brain 11/21: Ischemic changes throughout white matter likely related to septic emboli. Neuro Dr. Hernandez and has followed intermittently On Thiamine/MVI/Folic acid RESP: Bilateral cavitary lung lesions/most likely cavitating pneumonia from staph aureus Acute respiratory failure Large right loculated pleural effusion/empyema Left pleural effusion Right pneumothorax PRVC 18/600/1.0/5/40. Continue with vent support keep sat >90%. DuoNebs every 4 hours with albuterol nebs every 2 hours. Vent bundle.SBT daily as tiki Status post tracheostomy by Dr. Baker 11/29 A second Right sided 16 [place] chest tube placed yesterday by IR 12/09 Right-sided chest tube #28 [place], advance CT and check CXR Left-sided chest tube #10 [place]- placed 11/24/16-removed 12/02 Right thoracentesis with 1 L cloudy yellow fluid removed, fluid cell studies WBC 2,600, Patient status post pigtail catheter placement 11/14, 445 cc prior pulled out . Evaluated by Dr. Samuels/CT surgery. Per his recommendations, No indication for decortication at this time CV: Aortic valve endocarditis/large vegetation Sinus tachycardia Atrial fibrillation with RVR early normal sinus rhythm Elevated troponin - likely rate dependent - On Lopressor 25mg Q12, Monitor HR and BP keep MAP>65mmHg - 2-D echocardiogram revealed EF 55-60%. Moderate AR. CHANDNI revealed 17 mm x 17 millimeter mobile mass on aortic valve. - limited echo 11/22 Persistent vegetation - CT surgery. Recommendations no intervention at this time GI: Intra peritoneal free air. (Related to PEG or perforation). Ileus Hypoalbuminemia Moderate protein calorie malnutrition/acute Continue with tube feeds- Nepro@40ml/hr. GI is following 12/06 SB series w/ Gastrografin showed distended SB loops- ileus vs partial bowel obstruction 12/[address] abdomen/pelvis- small pneumoperitoneum, small bowel dilation ( ileus vs obstruction) small pneumoperitoneum likely related to previous PEG tube placement, PEG tube to suction. GI/Surgery is following- Dr. Baker. CT abdomen 12/04 show intra peritoneal free air. ? related to PEG or perforation. IV Protonix for GI prophylaxis. Reglan, MiraLAX twice a day for bowel regimen Prev CT of the abdomen pelvis with IV contrast revealed possible ileus., Gastric contraction at gastric duodenal junction. 2 mm renal cyst. s/p PEG placement 11/29/16 : Monitor renal function, I/O's, electrolytes replacement as needed. Will give KCL 40meq IV Free water 250ml Q6, monitor sodium level, d/c IVF, diurese with Bumex 1mg x1 Renal US: unremarkable, renal is following- Dr. Mirlees ID: Severe sepsis Persistent fever Multilobar cavitating pneumonia secondary staph aureus Staph aureus empyema Aortic valve endocarditis - Continue with abx per ID ( Zosyn, Diflucan, Vanco, Ancef for endocarditis)- monitor for signs of infections ( Fever, WBC). - Replace Santana, recheck UA, check sputum cx Pertinent cultures 11/13 - blood cultures 2 - staph aureus 11/13 and 11/14- pleural fluid- staph aureus 11/14- sputum- staph aureus 11/15 - blood cultures 2 -staph aureus 11/16 - Bronch samples: Staph Aureus 11/16 Sputum: Staph Aureus 11/19 - blood cultures 2 - no growth 11/23 - pleural fluid - no growth 11/24 - blood cultures 2 - no growth 11/25 - UA - negative 11/25 - sputum no growth 12/02, 12/07: Urine C tropicalis 12/07: Sputum: Pseudomonas 12/07, 12/09 BC: NGTD HEME: Normocytic anemia - Monitor CBC,s/p transfusion 1u PRBC 12/08 ENDO: SSI with accuchecks for glycemic control TSH 0.6. PROPH: - Bilateral lower extremity SCDs. Heparin SQ on hold for anemia requiring blood transfusion IV Protonix for prophylaxis LINES: - peripheral IVs Palliative care is following Level 3 Noam Calhoun MD Dec 10, 2016 10:28 Noam Calhoun MD Dec 10, 2016 10:28
--- NOTE | 2016-12-10 10:51 | HHI.IDPN ---
Note Infectious Disease Note On the vent. Sedated. Awake. following movements. No following commands. Went for replacement of r. chest tube. Recurring pleural effusion. Temp elevated. Large vegetation on AV and moderate aortic regurg on CHANDNI. Culture of blood 11/13, 11/15, 11/16. - Staph aureus. 11/19 no growth. Culture of pleural fluid 11/14 - staph aureus. ALLERGIES NO KNOWN DRUG ALLERGIES. ANTIBIOTICS: DIFLUCAN. PIP/TAZO. ANCEF. OBJECTIVE: Vital Signs Date Time Temp Pulse Resp B/P Pulse Ox O2 Delivery O2 Flow Rate FiO2 12/10/16 10:00 108 12/10/16 08:52 99 35 12/10/16 08:52 35 12/10/16 08:47 99 40 12/10/16 08:00 40 12/10/16 08:00 101.6 112 23 122/62 99 12/10/16 08:00 112 12/10/16 07:00 99 Mechanical Ventilator 40 12/10/16 05:36 98 40 12/10/16 04:00 98.4 104 30 116/61 100 12/10/16 04:00 40 12/10/16 03:23 99 40 12/10/16 00:00 98.7 104 23 122/56 100 12/10/16 00:00 40 12/09/16 22:15 100 40 12/09/16 20:00 40 12/09/16 20:00 99.0 97 21 103/51 99 12/09/16 19:00 99 Mechanical Ventilator 40 12/09/16 18:00 99 12/09/16 16:03 99 40 12/09/16 16:00 99.9 112 28 118/56 99 12/09/16 16:00 40 12/09/16 16:00 112 12/09/16 15:19 99 100 12/09/16 14:00 109 12/09/16 13:57 99 40 12/09/16 12:00 99.4 111 123/58 93 12/09/16 12:00 40 12/09/16 12:00 111 12/09/16 11:57 99 40 12/09/16 12/09/16 12/10/16 15:00 23:00 07:00 Intake Total 1410 ml 942 ml 1103 ml Output Total 890 ml 510 ml 360 ml Balance 520 ml 432 ml 743 ml Intake Oral 0 ml 0 ml IV Total 1160 ml 652 ml 612 ml Tube Feeding 40 ml 241 ml Other 250 ml 250 ml 250 ml Output Urine Total 550 ml 400 ml 300 ml Stool Total 260 ml 50 ml 50 ml Gastric Drainage Total 0 ml 0 ml 0 ml Chest Tube Drainage Total 80 ml 60 ml 10 ml Laboratory Tests Test 12/08/16 12/09/16 12/10/16 15:12 04:03 06:24 White Blood Count 5.9 TH/MM3 6.3 TH/MM3 6.6 TH/MM3 Red Blood Count 2.27 MIL/MM3 2.58 MIL/MM3 2.39 MIL/MM3 Hemoglobin 6.9 GM/DL 7.7 GM/DL 7.3 GM/DL Hematocrit 21.2 % 24.2 % 22.1 % Mean Corpuscular Volume 93.6 FL 93.6 FL 92.6 FL Mean Corpuscular Hemoglobin 30.5 PG 29.6 PG 30.5 PG Mean Corpuscular Hemoglobin 32.6 % 31.7 % 32.9 % Concent Red Cell Distribution Width 16.0 % 16.5 % 16.1 % Platelet Count 348 TH/MM3 341 TH/MM3 276 TH/MM3 Mean Platelet Volume 7.2 FL 6.4 FL 6.8 FL Neutrophils (%) (Auto) 81.8 % 81.7 % 81.3 % Lymphocytes (%) (Auto) 11.0 % 11.1 % 14.1 % Monocytes (%) (Auto) 6.5 % 6.3 % 3.9 % Eosinophils (%) (Auto) 0.4 % 0.5 % 0.4 % Basophils (%) (Auto) 0.3 % 0.4 % 0.3 % Neutrophils # (Auto) 4.8 TH/MM3 5.1 TH/MM3 5.4 TH/MM3 Lymphocytes # (Auto) 0.6 TH/MM3 0.7 TH/MM3 0.9 TH/MM3 Monocytes # (Auto) 0.4 TH/MM3 0.4 TH/MM3 0.3 TH/MM3 Eosinophils # (Auto) 0.0 TH/MM3 0.0 TH/MM3 0.0 TH/MM3 Basophils # (Auto) 0.0 TH/MM3 0.0 TH/MM3 0.0 TH/MM3 CBC Comment DIFF FINAL DIFF FINAL DIFF FINAL Differential Comment Laboratory Tests Test 12/08/16 12/09/16 12/09/16 12/10/16 15:12 04:03 18:36 06:24 Sodium Level 149 MEQ/L 146 MEQ/L 147 MEQ/L Potassium Level 3.8 MEQ/L 3.1 MEQ/L 3.1 MEQ/L 3.0 MEQ/L Chloride Level 118 MEQ/L 115 MEQ/L 117 MEQ/L Carbon Dioxide Level 21.4 MEQ/L 22.0 MEQ/L 22.3 MEQ/L Anion Gap 10 MEQ/L 9 MEQ/L 8 MEQ/L Blood Urea Nitrogen 59 MG/DL 61 MG/DL 55 MG/DL Creatinine 2.54 MG/DL 2.47 MG/DL 2.41 MG/DL Estimat Glomerular Filtration 26 ML/MIN 27 ML/MIN 28 ML/MIN Rate Random Glucose 108 MG/DL 97 MG/DL 101 MG/DL Calcium Level 7.2 MG/DL 7.8 MG/DL 7.7 MG/DL Protein Corrected Calcium 8.9 MG/DL Phosphorus Level 5.4 MG/DL 4.6 MG/DL Magnesium Level 2.1 MG/DL 2.1 MG/DL Total Protein 4.2 GM/DL Microbiology Date/Time Procedure Status Source Growth 12/07/16 15:10 Urine Culture - Final Complete Urine Catheterized Urine Marquita Tropicalis 12/07/16 16:20 Gram Stain - Final Complete Sputum Endotracheal 12/07/16 16:20 Sputum Culture - Final Complete Pseudomonas Aeruginosa 12/07/16 19:08 Aerobic Blood Culture - Preliminary Resulted Blood Peripheral NO GROWTH IN 2 DAYS 12/07/16 19:08 Anaerobic Blood Culture - Preliminary Resulted Blood Peripheral NO GROWTH IN 2 DAYS 12/07/16 21:25 Aerobic Blood Culture - Preliminary Resulted Blood Peripheral NO GROWTH IN 2 DAYS 12/07/16 21:25 Anaerobic Blood Culture - Preliminary Resulted Blood Peripheral NO GROWTH IN 2 DAYS 12/09/16 09:47 Aerobic Blood Culture Received Blood Peripheral Pending 12/09/16 09:47 Anaerobic Blood Culture Received Blood Peripheral Pending 12/09/16 09:54 Aerobic Blood Culture Received Blood Peripheral Pending 12/09/16 09:54 Anaerobic Blood Culture Received Blood Peripheral Pending PHYSICAL EXAMINATION GENERAL: On the vent. Awake. HEENT: No icterus. Oropharynx: Mucosa moist. NECK: Supple without adenopathy. trach area has a little savage secretions. LUNGS: Bilateral rhonchi coarse at the bases. HEART: Irregular with 2/6 IRMA at LSB. ABDOMEN: Distended. Bowel sounds decreased. tenderness not appreciated. EXTREMITIES: No clubbing or cyanosis, 2+ edema. SKIN: No rash. NEURO: Sedated. Calm. PSYCH: unable to assess. IMPRESSION 1. Endocarditis Aortic valve Staph aureus (MSSA). 2. Cavitary pulmonary lesions. Embolic./ [employer] ischemic lesions suggesting embolic lesions. 3. Pneumonia/parapneumonic effusion- MSSA. 4. Leukocytosis secondary to infection. Improved. 5. Vent dependent respiratory failure. 6. Recurrent high spiking fever. 7. Pseudomonas pneumonia. 7. Acute renal failure. Renal function not recovering. RECOMMENDATIONS 1. Continue IV Ancef for endocarditis. 2. Continue Diflucan. 3. Continue PIP/Tazo. 4. Add Levaquin. 5. Monitor temperature. 6. Monitor blood cultures. Slava Garcia MD Dec 10, 2016 10:51
--- NOTE | 2016-12-10 12:00 | RADRPT ---
EXAM DATE/TIME: 12/10/2016 10:24 [facility] COMPARISON: CHEST SINGLE AP, December 09, 2016, 7:39. INDICATIONS : Patient is short of breath. MEDICAL HISTORY : Sepsis. Cavitary mass. SURGICAL HISTORY : Peg tube. ENCOUNTER: Subsequent ACUITY: 1 month PAIN SCORE: Non-responsive. LOCATION: Bilateral chest FINDINGS: A single view of the chest demonstrates interval placement of a large bore thoracostomy tube laterall y in the right lung base with resolution of the previously seen loculated pneumothorax. The large bor e thoracostomy tube in the right mid chest is stable in position with the side port just inside the c hest wall. Stable bilateral scattered air space disease. Bibasilar atelectatic changes are present wi th possible associated right-sided effusion. Heart size is prominent. Tracheostomy tube is stable in position. CONCLUSION: 1. Interval placement of a large bore [place] loop thoracostomy tube laterally in the right lower chest with interval resolution of the previously seen loculated pneumothorax. 2. Right-sided surgical thoracostomy tube is unchanged in position with the side port just inside the chest wall. 3. Stable scattered airspace disease bilaterally. Bibasilar atelectatic changes with possible small r ight-sided effusion. 4. Heart size remains prominent but stable. David Rojas MD on December 10, 2016 at 11:50 Board Certified Radiologist. This report was verified electronically.
--- NOTE | 2016-12-10 12:01 | HHI.GIFU ---
Subjective Remarks Patient was seen during PT session. He is doing good per nurse, he tolerated TF at rate 40 ml/hr, with no residual. (Fransisco Morel) Objective Vitals I&O Vital Signs Date Time Temp Pulse Resp B/P Pulse Ox O2 Delivery O2 Flow Rate FiO2 12/10/16 11:10 98 40 12/10/16 10:00 108 12/10/16 08:52 99 35 12/10/16 08:52 35 12/10/16 08:47 99 40 12/10/16 08:00 40 12/10/16 08:00 101.6 112 23 122/62 99 12/10/16 08:00 112 12/10/16 07:00 99 Mechanical Ventilator 40 12/10/16 05:36 98 40 12/10/16 04:00 98.4 104 30 116/61 100 12/10/16 04:00 40 12/10/16 03:23 99 40 12/10/16 00:00 98.7 104 23 122/56 100 12/10/16 00:00 40 12/09/16 22:15 100 40 12/09/16 20:00 40 12/09/16 20:00 99.0 97 21 103/51 99 12/09/16 19:00 99 Mechanical Ventilator 40 12/09/16 18:00 99 12/09/16 16:03 99 40 12/09/16 16:00 99.9 112 28 118/56 99 12/09/16 16:00 40 12/09/16 16:00 112 12/09/16 15:19 99 100 12/09/16 14:00 109 12/09/16 13:57 99 40 12/09/16 12:00 99.4 111 123/58 93 12/09/16 12:00 40 12/09/16 12:00 111 I/O 12/09/16 12/09/16 12/09/16 12/10/16 12/10/16 12/10/16 07:00 15:00 23:00 07:00 15:00 23:00 Intake Total 1789 ml 1410 ml 942 ml 1103 ml Output Total 650 ml 890 ml 510 ml 360 ml Balance 1139 ml 520 ml 432 ml 743 ml Intake Oral 0 ml 0 ml IV Total 957 ml 1160 ml 652 ml 612 ml Tube Feeding 40 ml 241 ml Packed Cells 302 ml Other 530 ml 250 ml 250 ml 250 ml Output Urine Total 450 ml 550 ml 400 ml 300 ml Stool Total 100 ml 260 ml 50 ml 50 ml Gastric Drainage Total 100 ml 0 ml 0 ml 0 ml Chest Tube Drainage Total 0 ml 80 ml 60 ml 10 ml Laboratory Laboratory Tests Test 12/09/16 12/10/16 18:36 06:24 Potassium Level 3.1 3.0 White Blood Count 6.6 Red Blood Count 2.39 Hemoglobin 7.3 Hematocrit 22.1 Mean Corpuscular Volume 92.6 Mean Corpuscular Hemoglobin 30.5 Mean Corpuscular Hemoglobin 32.9 Concent Red Cell Distribution Width 16.1 Platelet Count 276 Mean Platelet Volume 6.8 Neutrophils (%) (Auto) 81.3 Lymphocytes (%) (Auto) 14.1 Monocytes (%) (Auto) 3.9 Eosinophils (%) (Auto) 0.4 Basophils (%) (Auto) 0.3 Neutrophils # (Auto) 5.4 Lymphocytes # (Auto) 0.9 Monocytes # (Auto) 0.3 Eosinophils # (Auto) 0.0 Basophils # (Auto) 0.0 CBC Comment DIFF FINAL Differential Comment Sodium Level 147 Chloride Level 117 Carbon Dioxide Level 22.3 Anion Gap 8 Blood Urea Nitrogen 55 Creatinine 2.41 Estimat Glomerular Filtration 28 Rate Random Glucose 101 Calcium Level 7.7 Date/Time Procedure Status Source Growth 12/09/16 09:54 Aerobic Blood Culture - Preliminary Resulted Blood Peripheral NO GROWTH IN 1 DAY 12/09/16 09:54 Anaerobic Blood Culture - Preliminary Resulted Blood Peripheral NO GROWTH IN 1 DAY 12/07/16 16:20 Gram Stain - Final Complete Sputum Endotracheal 12/07/16 16:20 Sputum Culture - Final Complete Pseudomonas Aeruginosa 12/07/16 15:10 Urine Culture - Final Complete Urine Catheterized Urine Marquita Tropicalis Physical Exam HEENT: Normocephalic; atraumatic. PERRLA. CHEST: Trach to vent, course breath sounds. CARDIAC: RRR RESPIRATORY: CTA ABDOMEN: soft, nondistended, no guarding. Bowel sounds present EXTREMITIES: 1+ pitting edema bilateral LE and UE SKIN: Warm/dry INDEPENDENT FREIGHT AGENT: Awake, follows commands, On ventilator via tracheostomy. (Fransisco Morel ) Assessment and Plan Plan ASSESSMENT - Abdominal distention, worsening. Abdomen X-Ray (12/04/16)-----> Dilatation of the small bowel with a pattern suggesting small bowel obstruction. Pt with significant distention, tympanic abdomen. (+) Stool. KUB with possible SBO. Abdomen/Pelvis CT (12/04/16)----> 1. Free air in the abdomen of uncertain etiology. It is unlikely to be related to the pneumothorax. The patient does have a new G-tube. 2. Dilated small bowel proximally although the only real area of wall thickening in the jejunum that I see is proximal to the small bowel distention. The distal small bowel is not nearly as distended but I don't see an obvious transition zone. There is a normal amount of stool in the right colon. 3. Right-sided pneumothorax despite the placement of a chest tube anteriorly. Moderate sized left pleural effusion. 4. The free air was relayed to the nurse practitioner shortly after the completion of the study. Rpt CT scan abdomen and pelvis with PO contrast (12/05/16)------> 1. Small bowel dilatation which may related to ileus or obstruction. The findings are similar to the prior exam. 2. Moderate ascites 3. Small pneumoperitoneum is present. Suspect severe ileus with small pneumoperitoneum from PEG tube placement. GS following. Continues to have significant distention. Small Bowel X-Ray --Distended loops of small bowel could be due to significant ileus versus partial small bowel obstruction and contrast gets into the colon at 13 hours. Abdomen X-Ray 12/07/16-- Limited study but no free air seen. Abdomen Ultrasound 12/06/16--No free fluid is present. - Abdominal pain. No guarding on abdominal palpation. SBFT as above. PPI. - Abnormal imaging with persistent luminal narrowing at the gastroduodenal junction without definite focal mass- okay on EGD. S/P EGD with PEG placement (11/29/16)-----> normal esophagus, normal stomach, normal duodenum, successful PEG tube placement - Anemia. Likely multifactorial. No active bleeding. HH 7.07/10.6. - Elevated alk phosphatase. Normalized. Hepatitis panel negative. T. Bili 0.7, AST 12, ALT < 6, ALk PHosph 66. - Bilateral cavitary lung lesions, right sided pleural effusion. CT Angiography (11/13/16)----> 1. Multiple cavitary lesions within both lungs with the largest measuring 9.5 cm in the right upper lobe. Differential diagnosis includes infectious and neoplastic etiologies. 2. Moderate sized right pleural effusion with adjacent compressive atelectasis and/or infiltrate. 3. Cardiomegaly and coronary artery calcifications. 4. Subcarinal mediastinal lymphadenopathy. Degenerative changes throughout the thoracic spine. S/P CT , but pt pulled out on 11/15. Pleural fluid with staphylococcus aureus. CT replaced. He became tachypneic on 11/[address] chest (11/16/16) ---> Right hydropneumothorax and bilateral cavitary masses greatest in the right upper lobe. CXR as above. Pulm/ID/CCM following. Zosyn, diflucan - Sepsis with endocarditis and septic emboli. Abnormal 2D echo with moderate aortic regurgitation and CHANDNI with large vegetation. S/P CVT evaluation, no plans for surgical intervention at this time. Brain MRI (11/21/16)-----> Multifocal areas of restricted diffusion primarily in the periventricular and subcortical white matter bilaterally but also cortically based in the right frontal lobe. Findings likely represent ischemic change likely related to septic emboli given the patient's clinical history. No abscess or enhancing lesion is visualized. Abx per ID/CCM. Zosyn, diflucan. WBC 8 - Respiratory failure - per CCM s/p bronch, chest tube insertion, intubation 12-09-16- patient is awake, no abd pain, PEG tube was to suction but has been clamped all morning and patient did well. 12-10-16- Patient is tolerating TF at goal of 40 ml/hr, no nausea, vomiting or high residual PLAN: - Okay to advance TF to goal rate - PEG to LIWS if not tolerating TF, this was discussed with nurse - Cont. Miralax - Monitor stool output - Abx per ID/CCM - CCM following - ID following - GS following - GI will sign off, please reconsult as needed Patient seen and examined by Dr. Smith and myself and this note is written on his behalf (Fransisco Morel) Physician Comments Patient seen and examined Agree with above Continue with current supportive care Monitor labs Not much to add from a GI standpoint we will sign off (Melquiades Smith MD ) Fransisco Morel Dec 10, 2016 12:01 Melquiades Smith MD Dec 10, 2016 22:50
[2016-12-10] MEDS: LEVOFLOXACIN 250 MG PREMIX INJ 50 ML IV SCH (12:10)
[2016-12-10] MEDS: POTASSIUM CHLOR 20 MEQ PREMIX 100 ML IV SCH ×2 (12:10→15:06)
[2016-12-10] MEDS ORDERED: LIDOCAINE HCL 1% 50 ML VIAL ONE (12:45)
[2016-12-10] MEDS ORDERED: BUMETANIDE INJ 1 MG/4 ML VIAL IV PUSH ONE (13:30)
--- NOTE | 2016-12-10 14:11 | RADRPT ---
EXAM DATE/TIME: 12/10/2016 13:18 [place] COMPARISON: CHEST SINGLE AP, December 10, 2016, 10:24. INDICATIONS : Post chest tube adjustment MEDICAL HISTORY : sepsis,pulmonary cavitary lesion SURGICAL HISTORY : peg tube ENCOUNTER: Subsequent ACUITY: 1 month PAIN SCORE: Non-responsive. LOCATION: Right chest FINDINGS: A single portable frontal view of the chest shows repositioning of the large chest tube on the right. Tip is now at the apical level. Small caliber thoracostomy tube remains within the inferior right he mithorax. No discernible pneumothorax. Diffuse bilateral pulmonary infiltrates most pronounced within the bases are unchanged. No discrete effusion. Heart is mildly enlarged. Tracheostomy tube noted. CONCLUSION: Repositioning of the right large caliber thoracostomy tube into the apex. No pneumothorax. Unchanged infiltrates. Keyur Toro Jr., MD on December 10, 2016 at 14:08 Board Certified Radiologist. This report was verified electronically.
--- NOTE | 2016-12-10 14:33 | HHI.PR ---
Subjective Subjective Notes KIERA Quinones and Dr. Luque at bedside repositioning chest tube Patient nods no when asked about abdominal pain Objective Vitals/I&O Vital Signs Date Time Temp Pulse Resp B/P Pulse Ox O2 Delivery O2 Flow Rate FiO2 12/10/16 11:10 98 40 12/10/16 10:00 108 12/10/16 08:00 101.6 23 122/62 12/10/16 07:00 Mechanical Ventilator 12/08/16 20:00 5.00 Labs Laboratory Tests Test 12/09/16 12/10/16 18:36 06:24 Potassium Level 3.1 3.0 White Blood Count 6.6 Red Blood Count 2.39 Hemoglobin 7.3 Hematocrit 22.1 Mean Corpuscular Volume 92.6 Mean Corpuscular Hemoglobin 30.5 Mean Corpuscular Hemoglobin 32.9 Concent Red Cell Distribution Width 16.1 Platelet Count 276 Mean Platelet Volume 6.8 Neutrophils (%) (Auto) 81.3 Lymphocytes (%) (Auto) 14.1 Monocytes (%) (Auto) 3.9 Eosinophils (%) (Auto) 0.4 Basophils (%) (Auto) 0.3 Neutrophils # (Auto) 5.4 Lymphocytes # (Auto) 0.9 Monocytes # (Auto) 0.3 Eosinophils # (Auto) 0.0 Basophils # (Auto) 0.0 CBC Comment DIFF FINAL Differential Comment Sodium Level 147 Chloride Level 117 Carbon Dioxide Level 22.3 Anion Gap 8 Blood Urea Nitrogen 55 Creatinine 2.41 Estimat Glomerular Filtration 28 Rate Random Glucose 101 Calcium Level 7.7 Date/Time Procedure Status Source Growth 12/10/16 13:40 Gram Stain Received Sputum Endotracheal Pending 12/10/16 13:40 Sputum Culture Received Sputum Endotracheal Pending 12/09/16 09:54 Aerobic Blood Culture - Preliminary Resulted Blood Peripheral NO GROWTH IN 1 DAY 12/09/16 09:54 Anaerobic Blood Culture - Preliminary Resulted Blood Peripheral NO GROWTH IN 1 DAY 12/07/16 16:20 Gram Stain - Final Complete Sputum Endotracheal 12/07/16 16:20 Sputum Culture - Final Complete Pseudomonas Aeruginosa 12/07/16 15:10 Urine Culture - Final Complete Urine Catheterized Urine Marquita Tropicalis Radiology Last Impressions Renal Ultrasound 12/07/16 0000 Signed Impressions: Service Date/Time: Wednesday, December 07, 2016 10:08 - CONCLUSION: Unremarkable renal ultrasound and a trace of ascites identified. Reba Banerjee MD Abdomen X-Ray 12/07/16 0000 Signed Impressions: Service Date/Time: Wednesday, December 07, 2016 16:16 - CONCLUSION: Limited study but no free air seen. Jhoan Bishop MD Chest X-Ray 12/06/16 0600 Signed Impressions: Service Date/Time: Tuesday, December 06, 2016 04:02 - CONCLUSION: 1. Cardiomegaly 2. Patchy alveolar disease characteristic of edema or pneumonia. There has been no significant change when compared to the prior exam. Toribio Magana MD Small Bowel X-Ray 12/06/16 0000 Signed Impressions: Service Date/Time: Tuesday, December 06, 2016 16:55 - CONCLUSION: Distended loops of small bowel could be due to significant ileus versus partial small bowel obstruction and contrast gets into the colon at 13 hours. Reba Banerjee MD Abdomen Ultrasound 12/06/16 0000 Signed Impressions: Service Date/Time: Tuesday, December 06, 2016 11:31 - CONCLUSION: No free fluid is present. Agustin Bonner MD Abdomen/Pelvis CT 12/05/16 0000 Signed Impressions: Service Date/Time: November 23:28 - CONCLUSION: 1. Small bowel dilatation which may related to ileus or obstruction. The findings are similar to the prior exam. 2. Moderate ascites 3. Small pneumoperitoneum is present. Toribio Magana MD Brain MRI 11/21/16 0000 Signed Impressions: Service Date/Time: November 12:33 - CONCLUSION: Multifocal areas of restricted diffusion primarily in the periventricular and subcortical white matter bilaterally but also cortically based in the right frontal lobe. Findings likely represent ischemic change likely related to septic emboli given the patient's clinical history. No abscess or enhancing lesion is visualized. Agustin Bonner MD Head CT 11/17/16 06 Signed Impressions: Service Date/Time: Thursday, November 17, 2016 10:39 - CONCLUSION: No significant change has occurred. Deven Urrutia MD Chest CT 11/16/16 0000 Signed Impressions: Service Date/Time: Wednesday, November 16, 2016 20:36 - CONCLUSION: 1. New right chest tube in the posterior superior right pleural space. There continues to be a moderate right pleural effusion primarily seen at the base. Some degree of loculation may be present inferiorly. The effusion does not layer posteriorly. There are scattered punctate areas of air within the pleural space inferiorly on the right. There is a solitary small area of air within the mild left pleural effusion. 2. Numerous irregular masses seen throughout both lungs some which are cavitary. These are nonspecific. Inflammatory masses needs be suspected. The multiplicity raises possibility of septic emboli. Agustin Price MD CT Angiography 11/13/16 1328 Signed Impressions: Service Date/Time: Sunday, November 13, 2016 15:50 - CONCLUSION: 1. Multiple cavitary lesions within both lungs with the largest measuring 9.5 cm in the right upper lobe. Differential diagnosis includes infectious and neoplastic etiologies. 2. Moderate sized right pleural effusion with adjacent compressive atelectasis and/or infiltrate. 3. Cardiomegaly and coronary artery calcifications. 4. Subcarinal mediastinal lymphadenopathy. 5. Degenerative changes throughout the thoracic spine. Jed Ponce MD Cardiovascular: Regular Lungs: Clear Abdomen: Other (distended; non tender ) Extremities: Other (generalized edema ) Narrative Exam trach in place A/P Problem List: (1) S/P percutaneous endoscopic gastrostomy (PEG) tube placement Assessment and Plan 56 year old male with multiple medical problems; s/p trach; now with distended abdomen and CT showing free air -Stable -Continue to follow abdominal exam -Tolerating TF at 40 cc/hr -Monitor WBC -We will continue to monitor Attending Statement patient seen at bedside abdomen benign Attestation The exam, history, and the medical decision-making described in the above note were completed with the assistance of the mid-level provider. I reviewed and agree with the findings presented. I attest that I had a [id number] encounter with the patient on the same day, and personally performed and documented my assessment and findings in the medical record. Carey Barnett Dec 10, 2016 14:33 Ravi Baker MD Dec 20, 2016 15:25
[2016-12-10] MEDS: FLUCONAZOLE 200 MG PREMIX BAG 100 ML IV SCH (15:04)
--- NOTE | 2016-12-10 16:39 | HHI.NPPN ---
Subjective General Problems: Anemia, Edema, Hypotension Renal Failure: Acute History of Present Illness This is 56 years old male, with Resp. failure, post tracheostomy, develop MENDY. Additional Remarks Patient is more alert, remain on the vent., not following all commands, and spiking fever. Objective Data Data 12/09/16 12/10/16 18:59 06:59 Intake Total 1410 ml 2045 ml Output Total 890 ml 870 ml Balance 520 ml 1175 ml Intake Oral 0 ml IV Total 1160 ml 1264 ml Tube Feeding 281 ml Other 250 ml 500 ml Output Urine Total 550 ml 700 ml Stool Total 260 ml 100 ml Gastric Drainage Total 0 ml 0 ml Chest Tube Drainage Total 80 ml 70 ml Vital Signs Date Time Temp Pulse Resp B/P Pulse Ox O2 Delivery O2 Flow Rate FiO2 12/10/16 13:29 97 T-piece 5.00 28 12/10/16 11:10 98 40 12/10/16 10:00 108 12/10/16 08:52 99 35 12/10/16 08:52 35 12/10/16 08:47 99 40 12/10/16 08:00 40 12/10/16 08:00 101.6 112 23 122/62 99 12/10/16 08:00 112 12/10/16 07:00 99 Mechanical Ventilator 40 12/10/16 05:36 98 40 12/10/16 04:00 98.4 104 30 116/61 100 12/10/16 04:00 40 12/10/16 03:23 99 40 12/10/16 00:00 98.7 104 23 122/56 100 12/10/16 00:00 40 12/09/16 22:15 100 40 12/09/16 20:00 40 12/09/16 20:00 99.0 97 21 103/51 99 12/09/16 19:00 99 Mechanical Ventilator 40 12/09/16 18:00 99 -: 12/10/16 0624 12/10/16 0624 Microbiology 12/10/16 Gram Stain, Received Pending 12/10/16 Sputum Culture, Received Pending Physical Exam General Appearance Remarks On the vent. with Trach., open eyes spontaneously. Eyes Eye Exam: Pupils Equal Throat Throat Exam: Oral Mucosa [place] & Moist Neck Neck Exam: Neck Supple Pulmonary Resp Exam: No Distress, Crackles, Rhonchi, Decreased Bases, Diminished Breath Sounds Cardiology CV Exam: Tachycardia Gastrointestinal/Abdomen GI Exam: Soft, Non-Tender, Bowel Sounds Present, Distended Extremeties Extremities Exam: Moderate Edema, Pitting Edema, Dependent Edema Neurologic Neuro Exam: Obtunded Assessment/Plan Assessment Summary: MENDY/Acute Renal Failure, Hypotension Problem List: (1) Leukocytosis (2) Acute respiratory insufficiency (3) Sepsis (4) multiple pulmonary cavitary lesions (5) severe encephalopathy, likely due to sepsis and multiple embolic infarctions (6) Acute kidney injury Plan Urine out put is better. BP is stable. Urine Na. is normal, most likely has ATN causing MENDY. Continue antibiotics and IVF. Avoid Nephrotoxins. Now has chest tube. Creatinine is almost same. Randall fever, cultures done. Continue antibiotics. Problem Qualifiers (1) Sepsis: Qualified Code: A41.9 - Sepsis, due to unspecified organism Otoniel Mireles MD Dec 10, 2016 16:39
[2016-12-10 19:03] LABS: BACTERIA, URINE RARE /hpf; BLOOD, URINE MOD (NEG); GLUCOSE,URINE NEG (NEG); KETONE, URINE NEG (NEG); NITRITE,URINE NEG (NEG); PH, URINE 5.5 (5.0-8.5); SQUAMOUS EPITHELIAL CELL URINE <1 /hpf (0-5); URINE COLOR YELLOW (YELLW/STRAW)
--- NOTE | 2016-12-10 19:10 | HHI.PR ---
Subjective Remarks Patient was intubated last night for acute hypoxemic resp failure and a right chest tube was placed for right hydroPTX in addition patient underwent bronch with BAL ( mucous plugs b/l suctioned to clear). MRI brain multifocal area of septic emboli/infarct Had Trach and PEG Tolerates TF Abd less distended cathetor TTolerated CPAp and T-tube Alert, awake, follows commands Started TF Objective Vital Signs Vital Signs Date Time Temp Pulse Resp B/P Pulse Ox O2 Delivery O2 Flow Rate FiO2 12/10/16 18:00 105 12/10/16 16:00 113 12/10/16 14:00 105 12/10/16 13:29 97 T-piece 5.00 28 12/10/16 12:00 101 12/10/16 11:10 98 40 12/10/16 10:00 108 12/10/16 08:52 99 35 12/10/16 08:52 35 12/10/16 08:47 99 40 12/10/16 08:00 40 12/10/16 08:00 101.6 112 23 122/62 99 12/10/16 08:00 112 12/10/16 07:00 99 Mechanical Ventilator 40 12/10/16 05:36 98 40 12/10/16 04:00 98.4 104 30 116/61 100 12/10/16 04:00 40 12/10/16 03:23 99 40 12/10/16 00:00 98.7 104 23 122/56 100 12/10/16 00:00 40 12/09/16 22:15 100 40 12/09/16 20:00 40 12/09/16 20:00 99.0 97 21 103/51 99 I/O 12/09/16 12/09/16 12/09/16 12/10/16 12/10/16 12/10/16 07:00 15:00 23:00 07:00 15:00 23:00 Intake Total 1789 ml 1410 ml 942 ml 1103 ml Output Total 650 ml 890 ml 510 ml 360 ml Balance 1139 ml 520 ml 432 ml 743 ml Intake Oral 0 ml 0 ml IV Total 957 ml 1160 ml 652 ml 612 ml Tube Feeding 40 ml 241 ml Packed Cells 302 ml Other 530 ml 250 ml 250 ml 250 ml Output Urine Total 450 ml 550 ml 400 ml 300 ml Stool Total 100 ml 260 ml 50 ml 50 ml Gastric Drainage Total 100 ml 0 ml 0 ml 0 ml Chest Tube Drainage Total 0 ml 80 ml 60 ml 10 ml Result Diagram: 12/10/1662312/10/16623 Objective Remarks GENERAL: Patient is 56 yo critically ill intubated , sedated and on pressors. SKIN: Warm and dry. HEAD: Normocephalic. EYES: No scleral icterus. No injection or drainage. NECK: Supple, trachea midline. No JVD or lymphadenopathy. CARDIOVASCULAR: Regular rate and rhythm without murmurs, gallops, or rubs. RESPIRATORY: Breath sounds equal bilaterally. No accessory muscle use. GASTROINTESTINAL: Abdomen soft, non-tender, distended., tympanic MUSCULOSKELETAL: No cyanosis, or edema. Neuro: Sedated and intubated A/P Assessment and Plan 1VDRF 2)Septic shock 3)Staph Aureus bacteremia 4)Empyema 6)Endocarditis involving AV 7)Leucocytosis 8)Cavitary pulm masses 2nd staph Aureus 9)Right hydroPTX PLAN: Continue with vent support keep sat >92% Bronchodilators, ICU vent bundle, on stress dose steroids- Abx per ID Chest tube to suction Sedation with Diprivan and fentanyl CPAP OK to remove trach stitches TF 40 cc/hr Emmett Bolton MD Dec 10, 2016 19:10
[2016-12-10 19:27] LABS: COMMENT (UR) CATH-CULTURE IND; CULTURE IF INDICATED CATH CULTURE IND
[2016-12-10] MEDS: fentaNYL DRIP 250 ML IV SCH (20:19)
[2016-12-10] MEDS: PROPOFOL 1000 MG/100 ML INJ 100 ML IV SCH (20:19)
[2016-12-11] VITALS (35 sets, daily range): BP systolic 98–125; BP diastolic 51–58; PULSE 93–118; RESP 23–32; TEMP 98.9–101.5; O2SAT 84–99
[2016-12-11] MEDS: PIPERACIL-TAZO 2.25 GM PREMIX 50 ML IV SCH ×2 (01:07→16:35)
[2016-12-11] MEDS: CHLORHEXIDINE GLUCONATE 2 % 1 PACK (2 CLOTHS) TOP SCH (04:00)
[2016-12-11] MEDS: INSULIN ASPART SUPPLEMENTAL SCALE SQ SCH ×4 (05:00→22:11)
[2016-12-11] MEDS: FREE WATER G-TUBE SCH ×4 (05:09→22:11)
[2016-12-11] MEDS: LORazepam 0.5 MG TAB PO SCH (05:10)
[2016-12-11] MEDS: ARTIFICIAL TEARS OPTH SOLN 15 ML BTL EACH EYE SCH ×4 (05:10→20:37)
[2016-12-11 05:46] LABS: BICARBONATE 19.3 MEQ/L (21.0-32.0)
[2016-12-11 05:47] LABS: BASOPHIL % 0.3 % (0.0-2.0); EOSINOPHIL % 0.4 % (0.0-4.0); HEMATOCRIT 21.4 % (39.0-51.0); HEMO FLAGS DIFF FINAL; LYMPH % 16.6 % (9.0-44.0); LYMPHOCYTE # 1.3 TH/MM3 (1.0-4.8); MEAN CORPUSCULAR HGB CONC 33.7 % (32.0-36.0); MONO % 4.9 % (0.0-8.0); NEUT % 77.8 % (16.0-70.0); PLATELET COUNT 226 TH/MM3 (150-450); RED BLOOD COUNT 2.32 MIL/MM3 (4.50-5.90); RED CELL DISTRIBUTION WIDTH 16.3 % (11.6-17.2); WHITE BLOOD COUNT 7.7 TH/MM3 (4.0-11.0)
[2016-12-11 05:51] LABS: POTASSIUM 2.8 MEQ/L (3.5-5.1)
[2016-12-11] MEDS ORDERED: POTASSIUM CHLORIDE 20 MEQ PWD PACKET PO SCH (06:45)
[2016-12-11] MEDS ORDERED: POTASSIUM CHLOR 20 MEQ PREMIX 100 ML IV SCH ×2 (07:00→19:00)
[2016-12-11] MEDS: POLYETHYLENE GLYCOL 17 GM PKG PO SCH (09:00)
[2016-12-11] MEDS: SODIUM CHLORIDE 0.9% FLUSH 10 ML FLUSH IVF SCH (09:00)
[2016-12-11] MEDS: SODIUM CHLORIDE 0.9% FLUSH 10 ML FLUSH IV FLUSH SCH ×2 (09:00→20:35)
[2016-12-11] MEDS: FOLIC ACID 1 MG TAB PO SCH (10:13)
[2016-12-11] MEDS: METOPROLOL TARTRATE 25 MG TAB PO SCH (10:13)
[2016-12-11] MEDS: PANTOPRAZOLE SODIUM 40 MG VIAL IV SCH ×2 (10:13→20:35)
[2016-12-11] MEDS: THIAMINE INJ 100 MG in SODIUM CHLORIDE 0.9% INJ 100 ML IV SCH (10:13)
[2016-12-11] MEDS: MULTIVITAMIN TAB PO SCH (10:13)
[2016-12-11] MEDS: LACTULOSE SYRUP 20 GM/30 ML CUP PO SCH (10:13)
[2016-12-11] MEDS: CHLORHEXIDINE 0.12% (ORAL KIT) 15 ML CUP MT SCH ×2 (10:15→20:00)
--- NOTE | 2016-12-11 10:54 | HHI.PR ---
Subjective Subjective Notes Resting in bed No acute issues overnight Objective Vitals/I&O Vital Signs Date Time Temp Pulse Resp B/P Pulse Ox O2 Delivery O2 Flow Rate FiO2 12/11/16 07:57 98 35 12/11/16 04:00 98.9 97 26 98/55 12/10/16 19:00 Mechanical Ventilator 12/10/16 13:29 5.00 Labs Laboratory Tests Test 12/10/16 12/10/16 12/11/16 18:30 18:39 04:59 Urine Color YELLOW Urine Turbidity CLOUDY Urine pH 5.5 Urine Specific [place] 1.020 Urine Protein 30 Urine Glucose (UA) NEG Urine Ketones NEG Urine Occult Blood MOD Urine Nitrite NEG Urine Bilirubin NEG Urine Urobilinogen LESS THAN 2.0 Urine Leukocyte Esterase MOD Urine RBC 40 Urine WBC 4 Urine Squamous Epithelial <1 Cells Urine Amorphous Sediment RARE Urine Bacteria RARE Microscopic Urinalysis Comment CATH-CULTURE IND Potassium Level 3.0 2.8 White Blood Count 7.7 Red Blood Count 2.32 Hemoglobin 7.2 Hematocrit 21.4 Mean Corpuscular Volume 92.0 Mean Corpuscular Hemoglobin 31.0 Mean Corpuscular Hemoglobin 33.7 Concent Red Cell Distribution Width 16.3 Platelet Count 226 Mean Platelet Volume 7.1 Neutrophils (%) (Auto) 77.8 Lymphocytes (%) (Auto) 16.6 Monocytes (%) (Auto) 4.9 Eosinophils (%) (Auto) 0.4 Basophils (%) (Auto) 0.3 Neutrophils # (Auto) 6.0 Lymphocytes # (Auto) 1.3 Monocytes # (Auto) 0.4 Eosinophils # (Auto) 0.0 Basophils # (Auto) 0.0 CBC Comment DIFF FINAL Differential Comment Sodium Level 147 Chloride Level 118 Carbon Dioxide Level 19.3 Anion Gap 10 Blood Urea Nitrogen 61 Creatinine 2.47 Estimat Glomerular Filtration 27 Rate Random Glucose 110 Calcium Level 7.7 Date/Time Procedure Status Source Growth 12/10/16 18:30 Urine Culture Received Urine Catheterized Urine Pending 12/10/16 18:30 Cancelled Urine Catheterized Urine 12/10/16 13:40 Gram Stain - Final Resulted Sputum Endotracheal 12/10/16 13:40 Sputum Culture Resulted Sputum Endotracheal Pending 12/09/16 09:54 Aerobic Blood Culture - Preliminary Resulted Blood Peripheral NO GROWTH IN 1 DAY 12/09/16 09:54 Anaerobic Blood Culture - Preliminary Resulted Blood Peripheral NO GROWTH IN 1 DAY 12/07/16 15:10 Urine Culture - Final Complete Urine Catheterized Urine Marquita Tropicalis Radiology Last Impressions Renal Ultrasound 12/07/16 0000 Signed Impressions: Service Date/Time: Wednesday, December 07, 2016 10:08 - CONCLUSION: Unremarkable renal ultrasound and a trace of ascites identified. Reba Banerjee MD Abdomen X-Ray 12/07/16 0000 Signed Impressions: Service Date/Time: Wednesday, December 07, 2016 16:16 - CONCLUSION: Limited study but no free air seen. Jhoan Bishop MD Chest X-Ray 12/06/16 0600 Signed Impressions: Service Date/Time: Tuesday, December 06, 2016 04:02 - CONCLUSION: 1. Cardiomegaly 2. Patchy alveolar disease characteristic of edema or pneumonia. There has been no significant change when compared to the prior exam. Toribio Magana MD Small Bowel X-Ray 12/06/16 0000 Signed Impressions: Service Date/Time: Tuesday, December 06, 2016 16:55 - CONCLUSION: Distended loops of small bowel could be due to significant ileus versus partial small bowel obstruction and contrast gets into the colon at 13 hours. Reba Banerjee MD Abdomen Ultrasound 12/06/16 0000 Signed Impressions: Service Date/Time: Tuesday, December 06, 2016 11:31 - CONCLUSION: No free fluid is present. Agustin Bonner MD Abdomen/Pelvis CT 12/05/16 0000 Signed Impressions: Service Date/Time: November 23:28 - CONCLUSION: 1. Small bowel dilatation which may related to ileus or obstruction. The findings are similar to the prior exam. 2. Moderate ascites 3. Small pneumoperitoneum is present. Toribio Magana MD Brain MRI 11/21/16 0000 Signed Impressions: Service Date/Time: November 12:33 - CONCLUSION: Multifocal areas of restricted diffusion primarily in the periventricular and subcortical white matter bilaterally but also cortically based in the right frontal lobe. Findings likely represent ischemic change likely related to septic emboli given the patient's clinical history. No abscess or enhancing lesion is visualized. Agustin Bonner MD Head CT 11/17/16 0600 Signed Impressions: Service Date/Time: Thursday, November 17, 2016 10:39 - CONCLUSION: No significant change has occurred. Deven Urrutia MD Chest CT 11/16/16 0000 Signed Impressions: Service Date/Time: Wednesday, November 16, 2016 20:36 - CONCLUSION: 1. New right chest tube in the posterior superior right pleural space. There continues to be a moderate right pleural effusion primarily seen at the base. Some degree of loculation may be present inferiorly. The effusion does not layer posteriorly. There are scattered punctate areas of air within the pleural space inferiorly on the right. There is a solitary small area of air within the mild left pleural effusion. 2. Numerous irregular masses seen throughout both lungs some which are cavitary. These are nonspecific. Inflammatory masses needs be suspected. The multiplicity raises possibility of septic emboli. Agustin Price MD CT Angiography 11/13/16 1328 Signed Impressions: Service Date/Time: Sunday, November 13, 2016 15:50 - CONCLUSION: 1. Multiple cavitary lesions within both lungs with the largest measuring 9.5 cm in the right upper lobe. Differential diagnosis includes infectious and neoplastic etiologies. 2. Moderate sized right pleural effusion with adjacent compressive atelectasis and/or infiltrate. 3. Cardiomegaly and coronary artery calcifications. 4. Subcarinal mediastinal lymphadenopathy. 5. Degenerative changes throughout the thoracic spine. Jed Ponce MD Cardiovascular: Regular Lungs: Clear Abdomen: Other (distended; exam unchanged; non tender to palpation ) Extremities: No edema Narrative Exam trach in place A/P Problem List: (1) S/P percutaneous endoscopic gastrostomy (PEG) tube placement Assessment and Plan 56 year old male with multiple medical problems; s/p trach; now with distended abdomen and CT showing free air -Stable -Continue to follow abdominal exam; exam currently benign -Tolerating TF at 40 cc/hr (goal) -We will continue to monitor Attending Statement patient seen at bedside s/p ir drain stable Attestation The exam, history, and the medical decision-making described in the above note were completed with the assistance of the mid-level provider. I reviewed and agree with the findings presented. I attest that I had a [id number] encounter with the patient on the same day, and personally performed and documented my assessment and findings in the medical record. Carey Barnett Dec 11, 2016 10:54 Ravi Baker MD Dec 20, 2016 15:30
[2016-12-11] MEDS: PROPOFOL 1000 MG/100 ML INJ 100 ML IV SCH (11:23)
--- NOTE | 2016-12-11 12:16 | HHI.IDPN ---
Note Infectious Disease Note On the vent. Awake and alert. Talks in weak inaudible voice. Now awake and responsive. Afebrile. Following commands. No distress. Has loose stools in rectal bag. D/W RN. Large vegetation on AV and moderate aortic regurg on CHANDNI. Culture of blood 11/13, 11/15, 11/16. - Staph aureus. 11/19 no growth. Culture of pleural fluid 11/14 - staph aureus. ALLERGIES NO KNOWN DRUG ALLERGIES. ANTIBIOTICS: Ancef. Pip/Tazo. Diflucan. OBJECTIVE: Vital Signs Date Time Temp Pulse Resp B/P Pulse Ox O2 Delivery O2 Flow Rate FiO2 12/11/16 11:18 98 35 12/11/16 07:57 98 35 12/11/16 04:07 98 35 12/11/16 04:00 98.9 97 26 98/55 98 12/11/16 04:00 35 12/11/16 00:10 98 35 12/11/16 00:00 35 12/11/16 00:00 99.4 102 26 123/58 97 12/10/16 20:47 98 35 12/10/16 20:00 99.1 105 23 114/55 99 12/10/16 20:00 35 12/10/16 19:00 98 Mechanical Ventilator 40 12/10/16 18:00 105 12/10/16 16:00 40 12/10/16 16:00 100.3 113 28 134/60 94 12/10/16 16:00 113 12/10/16 14:00 105 12/10/16 13:29 97 T-piece 5.00 28 12/10/16 12/10/16 12/11/16 15:00 23:00 07:00 Intake Total 1415 ml 944 ml 849 ml Output Total 1420 ml 1242 ml 700 ml Balance -5 ml -298 ml 149 ml Intake Oral 0 ml 0 ml IV Total 884 ml 393 ml 321 ml Tube Feeding 281 ml 301 ml 278 ml Other 250 ml 250 ml 250 ml Output Urine Total 400 ml 350 ml 375 ml Stool Total 1000 ml 800 ml 225 ml Gastric Drainage Total 0 ml 0 ml Chest Tube Drainage Total 20 ml 92 ml 100 ml Laboratory Tests Test 12/10/16 12/11/16 06:24 04:59 White Blood Count 6.6 TH/MM3 7.7 TH/MM3 Red Blood Count 2.39 MIL/MM3 2.32 MIL/MM3 Hemoglobin 7.3 GM/DL 7.2 GM/DL Hematocrit 22.1 % 21.4 % Mean Corpuscular Volume 92.6 FL 92.0 FL Mean Corpuscular Hemoglobin 30.5 PG 31.0 PG Mean Corpuscular Hemoglobin 32.9 % 33.7 % Concent Red Cell Distribution Width 16.1 % 16.3 % Platelet Count 276 TH/MM3 226 TH/MM3 Mean Platelet Volume 6.8 FL 7.1 FL Neutrophils (%) (Auto) 81.3 % 77.8 % Lymphocytes (%) (Auto) 14.1 % 16.6 % Monocytes (%) (Auto) 3.9 % 4.9 % Eosinophils (%) (Auto) 0.4 % 0.4 % Basophils (%) (Auto) 0.3 % 0.3 % Neutrophils # (Auto) 5.4 TH/MM3 6.0 TH/MM3 Lymphocytes # (Auto) 0.9 TH/MM3 1.3 TH/MM3 Monocytes # (Auto) 0.3 TH/MM3 0.4 TH/MM3 Eosinophils # (Auto) 0.0 TH/MM3 0.0 TH/MM3 Basophils # (Auto) 0.0 TH/MM3 0.0 TH/MM3 CBC Comment DIFF FINAL DIFF FINAL Differential Comment Laboratory Tests Test 12/09/16 12/10/16 12/10/16 12/11/16 18:36 06:24 18:39 04:59 Potassium Level 3.1 MEQ/L 3.0 MEQ/L 3.0 MEQ/L 2.8 MEQ/L Sodium Level 147 MEQ/L 147 MEQ/L Chloride Level 117 MEQ/L 118 MEQ/L Carbon Dioxide Level 22.3 MEQ/L 19.3 MEQ/L Anion Gap 8 MEQ/L 10 MEQ/L Blood Urea Nitrogen 55 MG/DL 61 MG/DL Creatinine 2.41 MG/DL 2.47 MG/DL Estimat Glomerular Filtration 28 ML/MIN 27 ML/MIN Rate Random Glucose 101 MG/DL 110 MG/DL Calcium Level 7.7 MG/DL 7.7 MG/DL Microbiology Date/Time Procedure Status Source Growth 12/09/16 09:47 Aerobic Blood Culture - Preliminary Resulted Blood Peripheral NO GROWTH IN 2 DAYS 12/09/16 09:47 Anaerobic Blood Culture - Preliminary Resulted Blood Peripheral NO GROWTH IN 2 DAYS 12/09/16 09:54 Aerobic Blood Culture - Preliminary Resulted Blood Peripheral NO GROWTH IN 2 DAYS 12/09/16 09:54 Anaerobic Blood Culture - Preliminary Resulted Blood Peripheral NO GROWTH IN 2 DAYS 12/10/16 13:40 Gram Stain - Final Resulted Sputum Endotracheal 12/10/16 13:40 Sputum Culture Resulted Sputum Endotracheal Pending 12/10/16 18:30 Urine Culture Received Urine Catheterized Urine Pending 12/10/16 18:30 Cancelled Urine Catheterized Urine PHYSICAL EXAMINATION GENERAL: On the vent. Awake. HEENT: No icterus. Oropharynx: No lesions. Mucosa moist. NECK: Supple without adenopathy. LUNGS: Bilateral rhonchi. Breath sounds decreased. HEART: Normal S1-S2 with 2/6 IRMA at LSB. ABDOMEN: Markedly distended. Decreased bowel sounds. Unable to appreciate tenderness. EXTREMITIES: No clubbing or cyanosis, 1+ edema. SKIN: No rash. NEURO: Non focal. PSYCH: unable to assess. IMPRESSION 1. Endocarditis Aortic valve Staph aureus (MSSA). 2. Cavitary pulmonary lesions. 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 3. Pneumonia/parapneumonic effusion- MSSA. - pseudomonas pneumonia. VAP. 4. Leukocytosis secondary to infection. WBC fluctuating. 5. Fever secondary to infection. Improved. 6. Vent dependent respiratory failure. 7. Recurrent high spiking fever. New sepsis. Better. 8. Ileus. 9. Acute renal function. RECOMMENDATIONS 1. Continue IV Ancef for endocarditis. Dose decreased because of renal function. 2. Continue Diflucan. 3. Continue PIP/Tazo. 4. Monitor temperature. 5. Monitor sputum culture. Slava Garcia MD Dec 11, 2016 12:16
[2016-12-11] MEDS: FLUCONAZOLE 200 MG PREMIX BAG 100 ML IV SCH (15:35)
[2016-12-11] MEDS ORDERED: HALOPERIDOL LACTATE 5 MG/ML AMP IV PUSH PRN (16:15)
--- NOTE | 2016-12-11 16:29 | HHI.CCPN ---
Subjective Remarks/Hospital Course 56-year-old male is brought to the emergency department by EMS for evaluation of generalized weakness, confusion for about 2 weeks, and also increasing shortness of breath. His oxygen saturation was 88% on room air. EMS administered breathing treatments and Solu-Medrol 125 mg 1 and placed him on nasal cannula. Patient states that he had been sick for almost 10 days, but he is a poor historian. He had a productive cough, but reports no hematemesis or weight loss. He states that it was his neighbor who made him called EMS. He has no past medical history and last time had seen a doctor was about 15 years ago. He denies any fevers but reports some night sweats and chills. He was tachycardic with a heart rate of 115 bpm, had severe leukocytosis with a white count of 35,000 with 91% neutrophils. CMP shows hyponatremia with a sodium of 126. Lactic acid is 2.4. His Chest x-ray shows large 7.7 x 7.8 cm cavitary right midlung lesion with associated right-sided pleural effusion. Subcentimeter left mid lung pulmonary nodules. Patient received 1 L normal saline bolus and Zosyn 4.5 g and Zithromax 500 mg IV and was placed on TB/ respiratory isolation. He has been being in [facility] 2 years ago increasing his risk of tuberculosis. CT pulmonary angiogram negative for PE but showed multiple cavitary lesions within both lungs with the largest measuring 9.5 cm in the right upper lobe. Moderate size right pleural effusion. I evaluated the patient in the emergency department. Patient appears critically ill in moderate distress mildly tachypneic, sweating. I performed a bedside ultrasound which showed a right effusion which is large. The thoracentesis was performed and 1 L of cloudy dark pleural fluid was removed. Patient will be continued on Zosyn and Levaquin and vancomycin. ID consulted and I discussed with Dr. Steele-she recommended no empiric treatments for TB. 11/14/16: Patient seen and examined complaints of severe epigastric and periumbilical abdominal pain. Patient remains oriented to person. His white count is slightly improved from 35,000-28,9000. Na improved to 136. I have ordered a STAT CT abd/pelvis with IV contrast. Chest x-ray shows reaccumulation of right pleural effusion-fluid chemistries are pending but cell count indicates at least a parapneumonic effusion and patient will need a pigtail chest tube 11/15: Patient pulled his right-sided pigtail catheter out overnight last night. Currently nasal cannula in no acute distress. Afebrile. Continues to have a leukocytosis. 11/16: Currently on room air. Hold out his IVs reportedly overnight last night. Requesting diet. Awake and alert and following commands. 11/17: Intubated yesterday due to acute hypercapnic respiratory failure. Hypoxic post intubation requiring right chest tube placement, bronchoscopy and Flolan. Bronchoscopy revealed thick mucous plugging at bilateral right and left mainstem which were clear. Improved oxygenation over the past 12 hours. Afebrile. 11/18 Patient remains sedated with Diprivan, Fentanyl and intubated. On Vasopressin and Neosyn 120 mics. 11/19 Patient is sedated with Diprivan, Fentanyl and intubated. Afebrile. Off all pressors. Afebrile. WBC is trending down 30 today from 50. 11/20: Remains severely septic and encephalopathic even though weaned off all pressors. White count still elevated but trending down. Became extremely tachycardic and tachypneic on lowering sedation. We'll check MRI of the brain to rule out embolic infarct. Family at the bedside updated 11/21 Remains heavily sedated, remains encephalopathic. MRI brain is pending. Family is at bedside. Remains critically with resp failure severe from endocarditis, now unable to wean off the ventilator due to severe metabolic encephalopathy 11/22 No events overnight. Sedated with Diprivan, fentanyl and intubated. Afebrile. MRI brain yesterday showed ischemic changes likely related to septic emboli. 11/23: Patient remains encephalopathic, severe hyponatremia possible contributing , Na is 157 today. Currently on Precedex and fentanyl. CXR shows increasing L effusion 11/24: Patient more awake today. Follows Commands but did not tolerate spontaneous breathing trials. Had left pigtail chest tube placed yesterday 1.6 L transudative fluid removal since placement 11/25 Patient is sedated with Diprivan, Fentanyl and intubated. T:99.9 11/26 No events overnight. Sedated and intubated. Patient was on CPAP x 3 hrs yesterday then became tachypneic. 11/27: Resting in bed comfortably on Diprivan at 40 mics grams per kilogram per minute and fentanyl drip at 200 an hour. Tolerated PSV trial 2 hours yesterday before becoming tachypnea. Positive BM via fecal containment device 1100 cc. Yesterday according to RN was following commands. 11/28: Currently afebrile. Tolerating PSV trials 1.5 hours today for became tachypneic. Awake and alert and follows commands. Neurologically intact. Positive BM. 11/29: Tmax 99.6. Status post percutaneous tracheostomy secondary to failed extubation trials. Plan for PEG tube today. Awake and interactive the ventilator on sedation vacation. 11/30: DrAzael currently 98.8. Status post percutaneous tracheostomy Dr. Baker yesterday and PEG tube placement by Dr. Figueroa. Tube feeds will be resumed today. Otherwise appears comfortable ventilator. Arousable and follows commands on sedation vacation. 12/01: Patient becomes tachypneic on attempted CPAP, even with high pressure support. I will add by mouth Ativan to reduce IV sedation requirement. Decreasing chest tube output 12/02: Patient failed spontaneous breathing trial clinically today secondary to severe tachypnea and tachycardia. His spiking fever upto 103. Panculture blood , dose of vancomycin given. Most likely patient is getting new sepsis 12/03: Continued to spike fever up to 102. Dose of vancomycin was given yesterday. Patient tolerated CPAP for 3 hours today, remains encephalopathic though. 12/04: Patient more awake alert follows commands, tolerated CPAP but did not tolerate TPs. Abdomen significantly distended, KUB shows ileus. Continues to spike high fever. Diflucan vancomycin added by ID and continue Ancef 12/05: Abdomen remains distended, CT yesterday show intra abdominal free air. Unclear whether related to PEG or perforation. D/W with Dr. Baker, will get repeat CT with oral contrast today. Zosyn added by ID 12/06 Patient is sedated with Fentanyl and Diprivan. CT abdomen/pelvis yesterday sowed small bowel dilation ( ileus vs obstruction) 12/07 Patient remains intubated on low dose Diprivan and Fentanyl infusion however he is awake. Tolerated CPAP all day yesterday T: 100.0 last night. SB series showed distended loops of small bowel. Renal function worse today with Cr: 2.4 from 1.96. 12/08 No events overnight. On Diprivan and Fentanyl drip for sedation. T:99.9 last night. 12/09 Patient remains on ventilator via trach, sedated with Diprivan and Fentanyl. T: 101.0 last night. s/p transfusion 1unit PRBC yesterday. 12/10 Patient is sedate with Dip, Fentanyl and intubated. T: 101.6 at 8 am. Subjective 12/11: patient remains on sedation for his agitated delirium. remains febrile today. 25kg up from admission and Cr uptrending. bedside critical care echo demonstrates 2cm ivc without respiratory variation, RVSP 48 mmHg, mild RV dilation, normal LV function. by physical exam, grossly volume overloaded. Objective Vital Signs Date Time Temp Pulse Resp B/P Pulse Ox O2 Delivery O2 Flow Rate FiO2 12/11/16 15:32 99 35 12/11/16 13:00 97 32 106/55 12/11/16 12:00 98.9 12/11/16 08:00 Mechanical Ventilator 12/10/16 13:29 5.00 Intake and Output 12/10/16 12/10/16 12/11/16 08:00 16:00 00:00 Intake Total 1103 ml 1415 ml 944 ml Output Total 360 ml 1420 ml 1242 ml Balance 743 ml -5 ml -298 ml Result Diagram: 12/11/16 0459 12/11/16 0459 Other Results Microbiology Date/Time Procedure Status Source Growth 12/10/16 13:40 Gram Stain - Final Complete Sputum Endotracheal 12/10/16 13:40 Sputum Culture - Final Complete Pseudomonas Aeruginosa Imaging Last Impressions Chest X-Ray 12/09/16 0000 Signed Impressions: Service Date/Time: Friday, December 09, 2016 16:36 - CONCLUSION: Right-sided chest tube placed with resolution of the subpulmonic pneumothorax. Bibasilar infiltrates are unchanged. Keyur Toro Jr., MD Chest Tube Insertion 12/09/16 0000 Signed Impressions: Service Date/Time: Friday, December 09, 2016 14:53 - CONCLUSION: Uncomplicated chest tube placement as above. Agustin Pérez MD Renal Ultrasound 12/07/16 0000 Signed Impressions: Service Date/Time: Wednesday, December 07, 2016 10:08 - CONCLUSION: Unremarkable renal ultrasound and a trace of ascites identified. Reba Banerjee MD Abdomen X-Ray 12/07/16 0000 Signed Impressions: Service Date/Time: Wednesday, December 07, 2016 16:16 - CONCLUSION: Limited study but no free air seen. Jhoan Bishop MD Small Bowel X-Ray 12/06/16 0000 Signed Impressions: Service Date/Time: Tuesday, December 06, 2016 16:55 - CONCLUSION: Distended loops of small bowel could be due to significant ileus versus partial small bowel obstruction and contrast gets into the colon at 13 hours. Reba Banerjee MD Abdomen Ultrasound 12/06/16 0000 Signed Impressions: Service Date/Time: Tuesday, December 06, 2016 11:31 - CONCLUSION: No free fluid is present. Agustin Bonner MD Abdomen/Pelvis CT 12/05/16 0000 Signed Impressions: Service Date/Time: November 23:28 - CONCLUSION: 1. Small bowel dilatation which may related to ileus or obstruction. The findings are similar to the prior exam. 2. Moderate ascites 3. Small pneumoperitoneum is present. Toribio Magana MD Brain MRI 11/21/16 0000 Signed Impressions: Service Date/Time: November 12:33 - CONCLUSION: Multifocal areas of restricted diffusion primarily in the periventricular and subcortical white matter bilaterally but also cortically based in the right frontal lobe. Findings likely represent ischemic change likely related to septic emboli given the patient's clinical history. No abscess or enhancing lesion is visualized. Agustin Bonner MD Head CT 11/17/16 0600 Signed Impressions: Service Date/Time: Thursday, November 17, 2016 10:39 - CONCLUSION: No significant change has occurred. Deven Urrutia MD Chest CT 11/16/16 0000 Signed Impressions: Service Date/Time: Wednesday, November 16, 2016 20:36 - CONCLUSION: 1. New right chest tube in the posterior superior right pleural space. There continues to be a moderate right pleural effusion primarily seen at the base. Some degree of loculation may be present inferiorly. The effusion does not layer posteriorly. There are scattered punctate areas of air within the pleural space inferiorly on the right. There is a solitary small area of air within the mild left pleural effusion. 2. Numerous irregular masses seen throughout both lungs some which are cavitary. These are nonspecific. Inflammatory masses needs be suspected. The multiplicity raises possibility of septic emboli. Agustin Price MD CT Angiography 11/13/16 1328 Signed Impressions: Service Date/Time: Sunday, November 13, 2016 15:50 - CONCLUSION: 1. Multiple cavitary lesions within both lungs with the largest measuring 9.5 cm in the right upper lobe. Differential diagnosis includes infectious and neoplastic etiologies. 2. Moderate sized right pleural effusion with adjacent compressive atelectasis and/or infiltrate. 3. Cardiomegaly and coronary artery calcifications. 4. Subcarinal mediastinal lymphadenopathy. 5. Degenerative changes throughout the thoracic spine. Jed Ponce MD Objective Remarks GENERAL: 56-year-old male, critically ill currently on ventilator via tracheostomy, SKIN: Warm and dry. Scattered skin lesions erythematous predominantly left lower extremity HEAD: Normocephalic and atraumatic. EYES: No injection, drainage. Pupils equally round and reactive around 3 mm ENT: No nasal drainage noted. Oropharynx is clear. NECK: trachea midline. Tracheostomy is clean dry and intact CARDIOVASCULAR: slightly tachycardic rate, regular rhythm. sinus by tele. RESPIRATORY: PSV 10/5/40%. equal chest rise GASTROINTESTINAL: Abdomen is distended, tympanic, no guarding MUSCULOSKELETAL: +3 pitting edema bilateral lower extremities. Multiple erythematous raised lesions on bilateral lower extremity predominantly left lower leg NEUROLOGICAL: Patient is awake on the ventilator. CAM+. 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 25kg up from admission. will attempt to diurese. his agitation is a problem and preventing clinical improvement, will add anti-delirium meds. multiorgan failure secondary to infective endocarditis is unlikely to overall improve, and his prognosis is poor. I do not think he will survive this hospitalization. Very complex medical patient with multiple medical problems. Off pathway. NEURO/PSYCH: Metabolic encephalopathy Septic brain emboli Agitated Delirium d/c propofol and fentanyl. start scheduled oxycodone 10mg po q4h per tube. start seroquel 100mg po q8hr start melatonin 5mg po qHS add haldol 5mg iv q4h prn for breakthrough agitation will swap from metoprolol to propranolol for increased [employer] penatration. --d/c ativan as this can be deliriogenic. EEG 11/24: Generalized encephalopathy without any significant epileptic activity. MRI brain 11/21: Ischemic changes throughout white matter likely related to septic emboli. Neuro Dr. Hernandez and has followed intermittently On change thiamine to PO. RESP: Bilateral cavitary lung lesions/most likely cavitating pneumonia from staph aureus Chronic respiratory failure Large right loculated pleural effusion/empyema Left pleural effusion Right pneumothorax Daily SBTs. start trach collar trials daily. Continue with vent support keep sat >90%. DuoNebs every 4 hours with albuterol nebs every 2 hours. Vent bundle. Status post tracheostomy by Dr. Baker 11/29 A second Right sided 16 Mosotho chest tube placed by IR 12/09 Right-sided chest tube #28 Mosotho, advance CT and check CXR Left-sided chest tube #10 Mosoth[place]- placed 11/24/16-removed 12/02 Right thoracentesis with 1 L cloudy yellow fluid removed, fluid cell studies WBC 2,600, Patient status post pigtail catheter placement 11/14, 445 cc prior pulled out . Evaluated by Dr. Samuels/CT surgery. Per his recommendations, No indication for decortication at this time CV: Aortic valve endocarditis/large vegetation Moderate Aortic Insufficiency Congestive Heart Failure secondary to valvulopathy Sinus tachycardia Atrial fibrillation with RVR - resolved, now normal sinus rhythm Elevated troponin - likely rate dependent - d/c lopressor. start propranolol 20mg po q6h. , Monitor HR and BP keep MAP>65mmHg - 2-D echocardiogram revealed EF 55-60%. Moderate AR. CHANDNI revealed 17 mm x 17 millimeter mobile mass on aortic valve. - limited echo 11/22 Persistent vegetation - CT surgery. Recommendations no intervention at this time - needs aggressive forced diuresis. bumex 1mg iv q8h with albumin. GI: Intra peritoneal free air. (Related to PEG or perforation). Ileus Hypoalbuminemia Moderate protein calorie malnutrition/acute Continue with tube feeds- Nepro@40ml/hr. GI is following 12/06 SB series w/ Gastrografin showed distended SB loops- ileus vs partial bowel obstruction 12/[address] abdomen/pelvis- small pneumoperitoneum, small bowel dilation ( ileus vs obstruction) small pneumoperitoneum likely related to previous PEG tube placement, PEG tube to suction. GI/Surgery is following- Dr. Baker. CT abdomen 12/04 show intra peritoneal free air. ? related to PEG or perforation. IV Protonix for GI prophylaxis. Reglan, MiraLAX twice a day for bowel regimen Prev CT of the abdomen pelvis with IV contrast revealed possible ileus., Gastric contraction at gastric duodenal junction. 2 mm renal cyst. s/p PEG placement 11/29/16 : Monitor renal function, I/O's, electrolytes replacement as needed. Free water 250ml Q6, monitor sodium level, d/c IVF, diurese with Bumex 1mg iv q8h. Renal US: unremarkable, renal is following- Dr. Mireles ID: Severe sepsis Persistent fever Multilobar cavitating pneumonia secondary staph aureus Staph aureus empyema Aortic valve endocarditis - Continue with abx per ID ( Zosyn, Diflucan, Vanco, Ancef for endocarditis)- monitor for signs of infections ( Fever, WBC). Pertinent cultures 11/13 - blood cultures 2 - staph aureus 11/13 and 11/14- pleural fluid- staph aureus 11/14- sputum- staph aureus 11/15 - blood cultures 2 -staph aureus 11/16 - Bronch samples: Staph Aureus 11/16 Sputum: Staph Aureus 11/19 - blood cultures 2 - no growth 11/23 - pleural fluid - no growth 11/24 - blood cultures 2 - no growth 11/25 - UA - negative 11/25 - sputum no growth 12/02, 12/07: Urine C tropicalis 12/07: Sputum: Pseudomonas 12/07, 12/09 BC: NGTD HEME: Normocytic anemia - Monitor CBC,s/p transfusion 1u PRBC 12/08 ENDO: SSI with accuchecks for glycemic control TSH 0.6. PROPH: - Bilateral lower extremity SCDs. Heparin SQ on hold for anemia requiring blood transfusion IV Protonix for prophylaxis LINES: - peripheral IVs Palliative care is following Level 3 Benjamín Guzman MD Dec 11, 2016 16:29
[2016-12-11] MEDS: ACETAMINOPHEN 325 MG TAB PO PRN (16:33)
[2016-12-11] MEDS: PROPRANOLOL HCL 20 MG TAB PO SCH ×2 (17:36→22:12)
[2016-12-11] MEDS: BUMETANIDE INJ 1 MG/4 ML VIAL IV PUSH SCH (17:36)
[2016-12-11] MEDS: ALBUMIN HUMAN 25% 25 GM/100 ML BAGP IV SCH (17:37)
[2016-12-11] MEDS: oxyCODONE HCL ORAL CONC 20 MG/ML SYRINGE PO SCH ×2 (17:37→20:36)
[2016-12-11] MEDS: QUEtiapine FUMARATE 100 MG TAB PO SCH ×2 (17:39→22:11)
--- NOTE | 2016-12-11 18:33 | HHI.PR ---
Subjective Remarks Patient was intubated last night for acute hypoxemic resp failure and a right chest tube was placed for right hydroPTX in addition patient underwent bronch with BAL ( mucous plugs b/l suctioned to clear). MRI brain multifocal area of septic emboli/infarct Had Trach and PEG Tolerates TF Alert, awake, follows commands Off Diprivan Started Oxycodone and Seraquel Objective Vital Signs Vital Signs Date Time Temp Pulse Resp B/P Pulse Ox O2 Delivery O2 Flow Rate FiO2 12/11/16 16:30 100 32 109/57 98 12/11/16 16:30 100 12/11/16 16:00 101.5 98 26 104/55 98 12/11/16 16:00 40 12/11/16 16:00 98 12/11/16 15:32 99 35 12/11/16 15:30 100 12/11/16 15:30 100 23 105/55 98 12/11/16 15:00 100 27 107/56 98 12/11/16 15:00 100 12/11/16 14:30 98 12/11/16 14:30 98 31 103/51 98 12/11/16 14:00 100 29 109/57 98 12/11/16 14:00 100 12/11/16 13:00 97 32 106/55 98 12/11/16 13:00 97 12/11/16 12:30 100 12/11/16 12:30 100 27 107/56 99 12/11/16 12:00 40 12/11/16 12:00 98.9 100 26 117/58 99 12/11/16 12:00 100 12/11/16 11:31 102 12/11/16 11:31 102 28 122/58 98 12/11/16 11:18 98 35 12/11/16 11:00 102 12/11/16 11:00 102 30 113/57 97 12/11/16 10:30 104 27 113/55 97 12/11/16 10:30 104 12/11/16 10:00 104 28 112/56 97 12/11/16 10:00 104 12/11/16 09:30 118 28 111/55 84 12/11/16 09:30 118 12/11/16 09:00 115 29 116/58 92 12/11/16 09:00 115 12/11/16 08:30 100 12/11/16 08:30 100 28 99/54 98 12/11/16 08:00 99.9 102 28 100/52 98 12/11/16 08:00 98 Mechanical Ventilator 40 12/11/16 08:00 102 12/11/16 08:00 40 12/11/16 07:57 98 35 12/11/16 07:30 101 12/11/16 07:00 101 12/11/16 04:07 98 35 12/11/16 04:00 98.9 97 26 98/55 98 12/11/16 04:00 35 12/11/16 00:10 98 35 12/11/16 00:00 35 12/11/16 00:00 99.4 102 26 123/58 97 12/10/16 20:47 98 35 12/10/16 20:00 99.1 105 23 114/55 99 12/10/16 20:00 35 12/10/16 19:00 98 Mechanical Ventilator 40 I/O 12/10/16 12/10/16 12/10/16 12/11/16 12/11/16 12/11/16 06:59 14:59 22:59 06:59 14:59 22:59 Intake Total 1103 ml 1415 ml 944 ml 849 ml 1510 ml Output Total 360 ml 1420 ml 1242 ml 700 ml 1518 ml Balance 743 ml -5 ml -298 ml 149 ml -8 ml Intake Oral 0 ml 0 ml 0 ml IV Total 612 ml 884 ml 393 ml 321 ml 839 ml Tube Feeding 241 ml 281 ml 301 ml 278 ml 361 ml Other 250 ml 250 ml 250 ml 250 ml 310 ml Output Urine Total 300 ml 400 ml 350 ml 375 ml 350 ml Stool Total 50 ml 1000 ml 800 ml 225 ml 1100 ml Gastric Drainage Total 0 ml 0 ml 0 ml Chest Tube Drainage Total 10 ml 20 ml 92 ml 100 ml 68 ml Result Diagram: 12/11/16 0459 12/11/16 1725 Objective Remarks GENERAL: Patient is 56 yo critically ill intubated , sedated and on pressors. SKIN: Warm and dry. HEAD: Normocephalic. EYES: No scleral icterus. No injection or drainage. NECK: Supple, trachea midline. No JVD or lymphadenopathy. CARDIOVASCULAR: Regular rate and rhythm without murmurs, gallops, or rubs. RESPIRATORY: Breath sounds equal bilaterally. No accessory muscle use. GASTROINTESTINAL: Abdomen soft, non-tender, distended., tympanic MUSCULOSKELETAL: No cyanosis, or edema. Neuro: Sedated and intubated A/P Assessment and Plan 1VDRF 2)Septic shock 3)Staph Aureus bacteremia 4)Empyema 6)Endocarditis involving AV 7)Leucocytosis 8)Cavitary pulm masses 2nd staph Aureus 9)Right hydroPTX PLAN: Continue with vent support keep sat >92% Bronchodilators, ICU vent bundle, on stress dose steroids- Abx per ID Chest tube to suction Sedation with fentanyl, oxycodone and Seraquel CPAP TF 40 cc/hr Emmett Bolton MD Dec 11, 2016 18:33
[2016-12-11] MEDS ORDERED: POTASSIUM CHLORIDE 25 MEQ EFFERVESCENT TAB PO ONE (19:00)
--- NOTE | 2016-12-11 19:39 | HHI.NPPN ---
Subjective General Problems: Anemia, Edema, Hypotension Renal Failure: Acute History of Present Illness This is 56 years old male, with Resp. failure, post tracheostomy, develop MENDY. Additional Remarks Patient is lethargic, remain on the vent., not in distress. Objective Data Data 12/10/16 12/11/16 18:59 06:59 Intake Total 1415 ml 1793 ml Output Total 1420 ml 1942 ml Balance -5 ml -149 ml Intake Oral 0 ml IV Total 884 ml 714 ml Tube Feeding 281 ml 579 ml Other 250 ml 500 ml Output Urine Total 400 ml 725 ml Stool Total 1000 ml 1025 ml Gastric Drainage Total 0 ml Chest Tube Drainage Total 20 ml 192 ml Vital Signs Date Time Temp Pulse Resp B/P Pulse Ox O2 Delivery O2 Flow Rate FiO2 12/11/16 19:00 97 12/11/16 19:00 97 27 107/52 97 12/11/16 18:30 104 29 116/58 97 12/11/16 18:30 104 12/11/16 18:00 105 12/11/16 18:00 98.9 105 28 120/56 98 12/11/16 17:30 104 12/11/16 17:30 104 27 122/58 97 12/11/16 17:00 104 27 125/58 98 12/11/16 17:00 104 12/11/16 16:30 100 32 109/57 98 12/11/16 16:30 100 12/11/16 16:00 101.5 98 26 104/55 98 12/11/16 16:00 40 12/11/16 16:00 98 12/11/16 15:32 99 35 12/11/16 15:30 100 12/11/16 15:30 100 23 105/55 98 12/11/16 15:00 100 27 107/56 98 12/11/16 15:00 100 12/11/16 14:30 98 12/11/16 14:30 98 31 103/51 98 12/11/16 14:00 100 29 109/57 98 12/11/16 14:00 100 12/11/16 13:00 97 32 106/55 98 12/11/16 13:00 97 12/11/16 12:30 100 12/11/16 12:30 100 27 107/56 99 12/11/16 12:00 40 12/11/16 12:00 98.9 100 26 117/58 99 12/11/16 12:00 100 12/11/16 11:31 102 12/11/16 11:31 102 28 122/58 98 12/11/16 11:18 98 35 12/11/16 11:00 102 12/11/16 11:00 102 30 113/57 97 12/11/16 10:30 104 27 113/55 97 12/11/16 10:30 104 12/11/16 10:00 104 28 112/56 97 12/11/16 10:00 104 12/11/16 09:30 118 28 111/55 84 12/11/16 09:30 118 12/11/16 09:00 115 29 116/58 92 12/11/16 09:00 115 12/11/16 08:30 100 12/11/16 08:30 100 28 99/54 98 12/11/16 08:00 99.9 102 28 100/52 98 12/11/16 08:00 98 Mechanical Ventilator 40 12/11/16 08:00 102 12/11/16 08:00 40 12/11/16 07:57 98 35 12/11/16 07:30 101 12/11/16 07:00 101 12/11/16 04:07 98 35 12/11/16 04:00 98.9 97 26 98/55 98 12/11/16 04:00 35 12/11/16 00:10 98 35 12/11/16 00:00 35 12/11/16 00:00 99.4 102 26 123/58 97 12/10/16 20:47 98 35 12/10/16 20:00 99.1 105 23 114/55 99 12/10/16 20:00 35 -: 12/11/16 0459 12/11/16 1725 Physical Exam General Appearance Remarks On the vent. with Trach., open eyes spontaneously. Eyes Eye Exam: Pupils Equal Throat Throat Exam: Oral Mucosa [place] & Moist Neck Neck Exam: Neck Supple Pulmonary Resp Exam: No Distress, Crackles, Rhonchi, Decreased Bases, Diminished Breath Sounds Cardiology CV Exam: Tachycardia Gastrointestinal/Abdomen GI Exam: Soft, Non-Tender, Bowel Sounds Present, Distended Extremeties Extremities Exam: Moderate Edema, Pitting Edema, Dependent Edema Neurologic Neuro Exam: Obtunded Assessment/Plan Assessment Summary: MENDY/Acute Renal Failure, Hypotension Problem List: (1) Leukocytosis (2) Acute respiratory insufficiency (3) Sepsis (4) multiple pulmonary cavitary lesions (5) severe encephalopathy, likely due to sepsis and multiple embolic infarctions (6) Acute kidney injury Plan Urine out put is better. BP is stable. Urine Na. is normal, most likely has ATN causing MENDY. Continue antibiotics and IVF. Avoid Nephrotoxins. Now has chest tube. Creatinine is almost same. K was low and replaced. Problem Qualifiers (1) Sepsis: Qualified Code: A41.9 - Sepsis, due to unspecified organism Otoniel Mireles MD Dec 11, 2016 19:39
[2016-12-11] MEDS ORDERED: POTASSIUM CHLOR 40 MEQ PREMIX 100 ML IV SCH (20:00)
[2016-12-11] MEDS: MELATONIN 5 MG TAB PO SCH (20:35)
[2016-12-11] MEDS: POTASSIUM CHLOR 20 MEQ PREMIX 100 ML IV SCH ×3 (20:35→22:12)
[2016-12-12] VITALS (40 sets, daily range): BP systolic 93–128; BP diastolic 53–76; PULSE 92–119; RESP 24–35; TEMP 98.5–100; O2SAT 92–100
[2016-12-12] MEDS: BUMETANIDE INJ 1 MG/4 ML VIAL IV PUSH SCH ×3 (01:23→17:25)
[2016-12-12] MEDS: oxyCODONE HCL ORAL CONC 20 MG/ML SYRINGE PO SCH ×6 (01:23→21:43)
[2016-12-12] MEDS: PIPERACIL-TAZO 2.25 GM PREMIX 50 ML IV SCH (01:24)
[2016-12-12] MEDS: POTASSIUM CHLOR 20 MEQ PREMIX 100 ML IV SCH (01:24)
[2016-12-12] MEDS: ALBUMIN HUMAN 25% 25 GM/100 ML BAGP IV SCH ×3 (01:24→17:24)
[2016-12-12] MEDS: RESP: ALBUTEROL 2.5 MG/3 ML NEB (PRN) INH ×2 (02:35→22:45)
[2016-12-12] MEDS: CHLORHEXIDINE GLUCONATE 2 % 1 PACK (2 CLOTHS) TOP SCH (03:09)
[2016-12-12] MEDS: INSULIN ASPART SUPPLEMENTAL SCALE SQ SCH ×4 (05:00→23:00)
[2016-12-12] MEDS: FREE WATER G-TUBE SCH ×5 (05:03→23:50)
[2016-12-12] MEDS: QUEtiapine FUMARATE 100 MG TAB PO SCH ×3 (05:04→22:36)
[2016-12-12] MEDS: PROPRANOLOL HCL 20 MG TAB PO SCH ×4 (05:04→23:50)
[2016-12-12 05:17] LABS: MEAN CELL VOLUME 92.2 FL (80.0-100.0); MEAN CORPUSCULAR HEMOGLOBIN 30.7 PG (27.0-34.0); MEAN CORPUSCULAR HGB CONC 33.3 % (32.0-36.0); PLATELET COUNT 195 TH/MM3 (150-450); RED BLOOD COUNT 2.24 MIL/MM3 (4.50-5.90); RED CELL DISTRIBUTION WIDTH 16.3 % (11.6-17.2); WHITE BLOOD COUNT 7.7 TH/MM3 (4.0-11.0)
[2016-12-12 05:38] LABS: HEMATOCRIT 20.7 % (39.0-51.0); REVIEW FLAG FINAL
--- NOTE | 2016-12-12 06:18 | RADRPT ---
EXAM DATE/TIME: 12/12/2016 03:53 [facility] COMPARISON: CHEST SINGLE AP, December 10, 2016, 13:18. INDICATIONS : Short of breath. MEDICAL HISTORY : Sepsis. SURGICAL HISTORY : PEG tube. ENCOUNTER: Subsequent ACUITY: 1 month PAIN SCORE: Non-responsive. LOCATION: Bilateral chest FINDINGS: Portable AP view the chest demonstrates a normal-sized cardiac silhouette. Tracheostomy and right glory st tube remain present. No pneumothorax is visualized. There is airspace consolidation in the right l ower lung zone and atelectasis versus consolidation at the left lung base. Tubing overlies the right inferior hemithorax. CONCLUSION: 1. Increased airspace consolidation in the right lower lung zone. The left lung base opacity is stabl e. 2. Right chest tube is present and no pneumothorax is visualized. Agutsin Bonner MD on December 12, 2016 at 6:15 Board Certified Radiologist. This report was verified electronically.
[2016-12-12] MEDS: THIAMINE HCL 100 MG TAB PO SCH (07:32)
[2016-12-12] MEDS: PANTOPRAZOLE SODIUM 40 MG VIAL IV SCH ×2 (07:32→21:43)
[2016-12-12] MEDS: FOLIC ACID 1 MG TAB PO SCH (07:33)
[2016-12-12] MEDS: SODIUM CHLORIDE 0.9% FLUSH 10 ML FLUSH IVF SCH (07:33)
[2016-12-12] MEDS: MULTIVITAMIN TAB PO SCH (07:33)
[2016-12-12] MEDS: SODIUM CHLORIDE 0.9% FLUSH 10 ML FLUSH IV FLUSH SCH ×2 (08:08→21:33)
[2016-12-12] MEDS: CHLORHEXIDINE 0.12% (ORAL KIT) 15 ML CUP MT SCH ×2 (08:10→21:33)
--- NOTE | 2016-12-12 11:50 | HHI.PR ---
Subjective Subjective Notes Resting in bed Family visiting Nods no when asked about abdominal pain Objective Vitals/I&O Vital Signs Date Time Temp Pulse Resp B/P Pulse Ox O2 Delivery O2 Flow Rate FiO2 12/12/16 10:32 99.9 105 28 109/55 97 12/12/16 10:25 35 12/11/16 19:00 Mechanical Ventilator 12/10/16 13:29 5.00 Labs Laboratory Tests Test 12/11/16 12/12/16 12/12/16 17:25 04:28 08:28 Potassium Level 2.9 4.0 White Blood Count 7.7 Red Blood Count 2.24 Hemoglobin 6.9 Hematocrit 20.7 Mean Corpuscular Volume 92.2 Mean Corpuscular Hemoglobin 30.7 Mean Corpuscular Hemoglobin 33.3 Concent Red Cell Distribution Width 16.3 Platelet Count 195 Mean Platelet Volume 7.4 Sodium Level 149 Chloride Level 121 Carbon Dioxide Level 20.0 Anion Gap 8 Blood Urea Nitrogen 60 Creatinine 2.62 Estimat Glomerular Filtration 26 Rate Random Glucose 101 Calcium Level 7.9 B-Type Natriuretic Peptide 2946 Blood Type A POSITIVE Antibody Screen NEGATIVE Crossmatch Leukocyte-Reduced Red Blood Cells Blood Bank Comment Date/Time Procedure Status Source Growth 12/10/16 18:30 Urine Culture - Final Complete Urine Catheterized Urine NO GROWTH IN 48 HOURS. 12/10/16 18:30 Cancelled Urine Catheterized Urine 12/10/16 13:40 Gram Stain - Final Complete Sputum Endotracheal 12/10/16 13:40 Sputum Culture - Final Complete Pseudomonas Aeruginosa 12/09/16 09:54 Aerobic Blood Culture - Preliminary Resulted Blood Peripheral NO GROWTH IN 3 DAYS 12/09/16 09:54 Anaerobic Blood Culture - Preliminary Resulted Blood Peripheral NO GROWTH IN 3 DAYS 12/07/16 21:25 Aerobic Blood Culture - Final Complete Blood Peripheral NO GROWTH IN 5 DAYS 12/07/16 21:25 Anaerobic Blood Culture - Final Complete Blood Peripheral NO GROWTH IN 5 DAYS Radiology Last Impressions Renal Ultrasound 12/07/16 0000 Signed Impressions: Service Date/Time: Wednesday, December 07, 2016 10:08 - CONCLUSION: Unremarkable renal ultrasound and a trace of ascites identified. Reba Banerjee MD Abdomen X-Ray 12/07/16 0000 Signed Impressions: Service Date/Time: Wednesday, December 07, 2016 16:16 - CONCLUSION: Limited study but no free air seen. Jhoan Bishop MD Chest X-Ray 12/06/16 0600 Signed Impressions: Service Date/Time: Tuesday, December 06, 2016 04:02 - CONCLUSION: 1. Cardiomegaly 2. Patchy alveolar disease characteristic of edema or pneumonia. There has been no significant change when compared to the prior exam. Toribio Magana MD Small Bowel X-Ray 12/06/16 0000 Signed Impressions: Service Date/Time: Tuesday, December 06, 2016 16:55 - CONCLUSION: Distended loops of small bowel could be due to significant ileus versus partial small bowel obstruction and contrast gets into the colon at 13 hours. Reba Banerjee MD Abdomen Ultrasound 12/06/16 0000 Signed Impressions: Service Date/Time: Tuesday, December 06, 2016 11:31 - CONCLUSION: No free fluid is present. Agustin Bonner MD Abdomen/Pelvis CT 12/05/16 0000 Signed Impressions: Service Date/Time: November 23:28 - CONCLUSION: 1. Small bowel dilatation which may related to ileus or obstruction. The findings are similar to the prior exam. 2. Moderate ascites 3. Small pneumoperitoneum is present. Toribio Magana MD Brain MRI 11/21/16 0000 Signed Impressions: Service Date/Time: November 12:33 - CONCLUSION: Multifocal areas of restricted diffusion primarily in the periventricular and subcortical white matter bilaterally but also cortically based in the right frontal lobe. Findings likely represent ischemic change likely related to septic emboli given the patient's clinical history. No abscess or enhancing lesion is visualized. Agustin Bonner MD Head CT 11/17/16 0600 Signed Impressions: Service Date/Time: Thursday, November 17, 2016 10:39 - CONCLUSION: No significant change has occurred. Deven Urrutia MD Chest CT 11/16/16 0000 Signed Impressions: Service Date/Time: Wednesday, November 16, 2016 20:36 - CONCLUSION: 1. New right chest tube in the posterior superior right pleural space. There continues to be a moderate right pleural effusion primarily seen at the base. Some degree of loculation may be present inferiorly. The effusion does not layer posteriorly. There are scattered punctate areas of air within the pleural space inferiorly on the right. There is a solitary small area of air within the mild left pleural effusion. 2. Numerous irregular masses seen throughout both lungs some which are cavitary. These are nonspecific. Inflammatory masses needs be suspected. The multiplicity raises possibility of septic emboli. Agustin Price MD CT Angiography 11/13/16 1328 Signed Impressions: Service Date/Time: Sunday, November 13, 2016 15:50 - CONCLUSION: 1. Multiple cavitary lesions within both lungs with the largest measuring 9.5 cm in the right upper lobe. Differential diagnosis includes infectious and neoplastic etiologies. 2. Moderate sized right pleural effusion with adjacent compressive atelectasis and/or infiltrate. 3. Cardiomegaly and coronary artery calcifications. 4. Subcarinal mediastinal lymphadenopathy. 5. Degenerative changes throughout the thoracic spine. Jed Ponce MD Cardiovascular: Regular Lungs: Clear Abdomen: Other (mildly distended; non tender ) Extremities: No edema Narrative Exam trach in place A/P Problem List: (1) S/P percutaneous endoscopic gastrostomy (PEG) tube placement Assessment and Plan 56 year old male with multiple medical problems; s/p trach; now with distended abdomen and CT showing free air -Stable -Continue to follow abdominal exam; exam currently benign -Tolerating TF at 40 cc/hr (goal) -We will continue to monitor Attending Statement patient seen at bedside tolerating tf abdomen benign Attestation The exam, history, and the medical decision-making described in the above note were completed with the assistance of the mid-level provider. I reviewed and agree with the findings presented. I attest that I had a [id number] encounter with the patient on the same day, and personally performed and documented my assessment and findings in the medical record. Carey Barnett Dec 12, 2016 11:50 Ravi Baker MD Dec 20, 2016 15:32
--- NOTE | 2016-12-12 12:51 | HHI.IDPN ---
Note Infectious Disease Note On the vent. Awake and alert. Responsive. Temp spike yesterday. Low grade temp now. Following commands. No distress. Thick white secretions. Santana has cloudy urine. D/W RN. Large vegetation on AV and moderate aortic regurg on CHANDNI. Culture of blood 11/13, 11/15, 11/16. - Staph aureus. 11/19 no growth. Culture of pleural fluid 11/14 - staph aureus. ALLERGIES NO KNOWN DRUG ALLERGIES. ANTIBIOTICS: Ancef. Pip/Tazo. Diflucan. OBJECTIVE: Vital Signs Date Time Temp Pulse Resp B/P Pulse Ox O2 Delivery O2 Flow Rate FiO2 12/12/16 10:32 99.9 105 28 109/55 97 12/12/16 10:25 35 12/12/16 10:23 99 35 12/12/16 10:20 40 12/12/16 10:12 98.6 109 27 117/56 99 12/12/16 10:00 109 12/12/16 10:00 109 28 117/56 100 12/12/16 09:00 104 12/12/16 09:00 104 32 111/55 99 12/12/16 08:00 35 12/12/16 08:00 108 12/12/16 08:00 98.6 108 28 116/56 100 12/12/16 07:00 109 26 112/76 100 12/12/16 07:00 109 12/12/16 04:39 99 35 12/12/16 04:00 35 12/12/16 04:00 98.5 100 31 106/53 99 12/12/16 02:35 98 35 12/12/16 00:00 98.8 92 30 93/54 98 12/12/16 00:00 35 12/11/16 23:54 99 35 12/11/16 22:00 12/11/16 20:38 98 35 12/11/16 20:00 12/11/16 20:00 99.0 93 26 109/53 98 12/11/16 20:00 35 12/11/16 19:00 97 12/11/16 19:00 97 27 107/52 97 12/11/16 19:00 98 Mechanical Ventilator 40 12/11/16 18:30 104 29 116/58 97 12/11/16 18:30 104 12/11/16 18:00 105 12/11/16 18:00 98.9 105 28 120/56 98 12/11/16 17:30 104 12/11/16 17:30 104 27 122/58 97 12/11/16 17:00 104 27 125/58 98 12/11/16 17:00 104 12/11/16 16:30 100 32 109/57 98 12/11/16 16:30 100 12/11/16 16:00 101.5 98 26 104/55 98 12/11/16 16:00 40 12/11/16 16:00 98 12/11/16 15:32 99 35 12/11/16 15:30 100 12/11/16 15:30 100 23 105/55 98 12/11/16 15:00 100 27 107/56 98 12/11/16 15:00 100 12/11/16 14:30 98 12/11/16 14:30 98 31 103/51 98 12/11/16 14:00 100 29 109/57 98 12/11/16 14:00 100 12/11/16 13:00 97 32 106/55 98 12/11/16 13:00 97 12/11/16 12/11/16 12/12/16 15:00 23:00 07:00 Intake Total 1510 ml 913 ml 1047 ml Output Total 1518 ml 840 ml 785 ml Balance -8 ml 73 ml 262 ml Intake Oral 0 ml IV Total 839 ml 351 ml 502 ml Tube Feeding 361 ml 302 ml 285 ml Other 310 ml 260 ml 260 ml Output Urine Total 350 ml 500 ml 325 ml Stool Total 1100 ml 300 ml 400 ml Chest Tube Drainage Total 68 ml 40 ml 60 ml Laboratory Tests Test 12/11/16 12/12/16 04:59 04:28 White Blood Count 7.7 TH/MM3 7.7 TH/MM3 Red Blood Count 2.32 MIL/MM3 2.24 MIL/MM3 Hemoglobin 7.2 GM/DL 6.9 GM/DL Hematocrit 21.4 % 20.7 % Mean Corpuscular Volume 92.0 FL 92.2 FL Mean Corpuscular Hemoglobin 31.0 PG 30.7 PG Mean Corpuscular Hemoglobin 33.7 % 33.3 % Concent Red Cell Distribution Width 16.3 % 16.3 % Platelet Count 226 TH/MM3 195 TH/MM3 Mean Platelet Volume 7.1 FL 7.4 FL Neutrophils (%) (Auto) 77.8 % Lymphocytes (%) (Auto) 16.6 % Monocytes (%) (Auto) 4.9 % Eosinophils (%) (Auto) 0.4 % Basophils (%) (Auto) 0.3 % Neutrophils # (Auto) 6.0 TH/MM3 Lymphocytes # (Auto) 1.3 TH/MM3 Monocytes # (Auto) 0.4 TH/MM3 Eosinophils # (Auto) 0.0 TH/MM3 Basophils # (Auto) 0.0 TH/MM3 CBC Comment DIFF FINAL Differential Comment Laboratory Tests Test 12/10/16 12/11/16 12/11/16 12/12/16 18:39 04:59 17:25 04:28 Potassium Level 3.0 MEQ/L 2.8 MEQ/L 2.9 MEQ/L 4.0 MEQ/L Sodium Level 147 MEQ/L 149 MEQ/L Chloride Level 118 MEQ/L 121 MEQ/L Carbon Dioxide Level 19.3 MEQ/L 20.0 MEQ/L Anion Gap 10 MEQ/L 8 MEQ/L Blood Urea Nitrogen 61 MG/DL 60 MG/DL Creatinine 2.47 MG/DL 2.62 MG/DL Estimat Glomerular Filtration 27 ML/MIN 26 ML/MIN Rate Random Glucose 110 MG/DL 101 MG/DL Calcium Level 7.7 MG/DL 7.9 MG/DL B-Type Natriuretic Peptide 2946 PG/ML Microbiology Date/Time Procedure Status Source Growth 12/10/16 13:40 Gram Stain - Final Complete Sputum Endotracheal 12/10/16 13:40 Sputum Culture - Final Complete Pseudomonas Aeruginosa 12/10/16 18:30 Urine Culture - Final Complete Urine Catheterized Urine NO GROWTH IN 48 HOURS. 12/10/16 18:30 Cancelled Urine Catheterized Urine IMAGING: Chest X-Ray 12/12/16 0600 Signed Impressions: Service Date/Time: November 03:53 - CONCLUSION: 1. Increased airspace consolidation in the right lower lung zone. The left lung base opacity is stable. 2. Right chest tube is present and no pneumothorax is visualized. Agustin Bonner MD PHYSICAL EXAMINATION GENERAL: On the vent. Awake. HEENT: No icterus. Oropharynx: No lesions. Mucosa moist. NECK: Supple without adenopathy. LUNGS: Bilateral rhonchi. HEART: Normal S1-S2 with 2/6 IRMA at LSB. ABDOMEN: Markedly distended. Decreased bowel sounds. Unable to appreciate tenderness. EXTREMITIES: No clubbing or cyanosis, 1+ edema. SKIN: No rash. NEURO: Non focal. PSYCH: unable to assess. IMPRESSION 1. Endocarditis Aortic valve Staph aureus (MSSA). 2. Cavitary pulmonary lesions. Embolic./ [place] ischemic lesions suggesting embolic lesions. 3. Pneumonia/parapneumonic effusion- MSSA. - pseudomonas pneumonia. VAP. 4. Leukocytosis secondary to infection. WBC now normal. 5. Recurrent fever. ? source. 6. Vent dependent respiratory failure. 7. Ileus. 8. Acute renal failure. RECOMMENDATIONS 1. Continue IV Ancef for endocarditis. Dose decreased because of renal function. 2. Continue Diflucan. 3. Continue PIP/Tazobactam. 4. Monitor temperature. 5. Repeat urine culture. Slava Garcia MD Dec 12, 2016 12:51
[2016-12-12] MEDS: ARTIFICIAL TEARS OPTH SOLN 15 ML BTL EACH EYE SCH ×2 (15:42→21:43)
[2016-12-12] MEDS: LEVOFLOXACIN 250 MG PREMIX INJ 50 ML IV SCH (15:42)
[2016-12-12] MEDS: FLUCONAZOLE 200 MG PREMIX BAG 100 ML IV SCH (16:30)
[2016-12-12] MEDS: PIPERACIL-TAZO 3.375 GM PREMIX 50 ML IV SCH ×2 (17:25→21:41)
--- NOTE | 2016-12-12 18:08 | HHI.CCPN ---
Subjective Remarks/Hospital Course 56-year-old male is brought to the emergency department by EMS for evaluation of generalized weakness, confusion for about 2 weeks, and also increasing shortness of breath. His oxygen saturation was 88% on room air. EMS administered breathing treatments and Solu-Medrol 125 mg 1 and placed him on nasal cannula. Patient states that he had been sick for almost 10 days, but he is a poor historian. He had a productive cough, but reports no hematemesis or weight loss. He states that it was his neighbor who made him called EMS. He has no past medical history and last time had seen a doctor was about 15 years ago. He denies any fevers but reports some night sweats and chills. He was tachycardic with a heart rate of 115 bpm, had severe leukocytosis with a white count of 35,000 with 91% neutrophils. CMP shows hyponatremia with a sodium of 126. Lactic acid is 2.4. His Chest x-ray shows large 7.7 x 7.8 cm cavitary right midlung lesion with associated right-sided pleural effusion. Subcentimeter left mid lung pulmonary nodules. Patient received 1 L normal saline bolus and Zosyn 4.5 g and Zithromax 500 mg IV and was placed on TB/ respiratory isolation. He has been being in care home 2 years ago increasing his risk of tuberculosis. CT pulmonary angiogram negative for PE but showed multiple cavitary lesions within both lungs with the largest measuring 9.5 cm in the right upper lobe. Moderate size right pleural effusion. I evaluated the patient in the emergency department. Patient appears critically ill in moderate distress mildly tachypneic, sweating. I performed a bedside ultrasound which showed a right effusion which is large. The thoracentesis was performed and 1 L of cloudy dark pleural fluid was removed. Patient will be continued on Zosyn and Levaquin and vancomycin. ID consulted and I discussed with Dr. Steele-she recommended no empiric treatments for TB. 11/14/16: Patient seen and examined complaints of severe epigastric and periumbilical abdominal pain. Patient remains oriented to person. His white count is slightly improved from 35,000-28,9000. Na improved to 136. I have ordered a STAT CT abd/pelvis with IV contrast. Chest x-ray shows reaccumulation of right pleural effusion-fluid chemistries are pending but cell count indicates at least a parapneumonic effusion and patient will need a pigtail chest tube 11/15: Patient pulled his right-sided pigtail catheter out overnight last night. Currently nasal cannula in no acute distress. Afebrile. Continues to have a leukocytosis. 11/16: Currently on room air. Hold out his IVs reportedly overnight last night. Requesting diet. Awake and alert and following commands. 11/17: Intubated yesterday due to acute hypercapnic respiratory failure. Hypoxic post intubation requiring right chest tube placement, bronchoscopy and Flolan. Bronchoscopy revealed thick mucous plugging at bilateral right and left mainstem which were clear. Improved oxygenation over the past 12 hours. Afebrile. 11/18 Patient remains sedated with Diprivan, Fentanyl and intubated. On Vasopressin and Neosyn 120 mics. 11/19 Patient is sedated with Diprivan, Fentanyl and intubated. Afebrile. Off all pressors. Afebrile. WBC is trending down 30 today from 50. 11/20: Remains severely septic and encephalopathic even though weaned off all pressors. White count still elevated but trending down. Became extremely tachycardic and tachypneic on lowering sedation. We'll check MRI of the brain to rule out embolic infarct. Family at the bedside updated 11/21 Remains heavily sedated, remains encephalopathic. MRI brain is pending. Family is at bedside. Remains critically with resp failure severe from endocarditis, now unable to wean off the ventilator due to severe metabolic encephalopathy 11/22 No events overnight. Sedated with Diprivan, fentanyl and intubated. Afebrile. MRI brain yesterday showed ischemic changes likely related to septic emboli. 11/23: Patient remains encephalopathic, severe hyponatremia possible contributing , Na is 157 today. Currently on Precedex and fentanyl. CXR shows increasing L effusion 11/24: Patient more awake today. Follows Commands but did not tolerate spontaneous breathing trials. Had left pigtail chest tube placed yesterday 1.6 L transudative fluid removal since placement 11/25 Patient is sedated with Diprivan, Fentanyl and intubated. T:99.9 11/26 No events overnight. Sedated and intubated. Patient was on CPAP x 3 hrs yesterday then became tachypneic. 11/27: Resting in bed comfortably on Diprivan at 40 mics grams per kilogram per minute and fentanyl drip at 200 an hour. Tolerated PSV trial 2 hours yesterday before becoming tachypnea. Positive BM via fecal containment device 1100 cc. Yesterday according to RN was following commands. 11/28: Currently afebrile. Tolerating PSV trials 1.5 hours today for became tachypneic. Awake and alert and follows commands. Neurologically intact. Positive BM. 11/29: Tmax 99.6. Status post percutaneous tracheostomy secondary to failed extubation trials. Plan for PEG tube today. Awake and interactive the ventilator on sedation vacation. 11/30: DrAzael currently 98.8. Status post percutaneous tracheostomy Dr. Baker yesterday and PEG tube placement by Dr. Figueroa. Tube feeds will be resumed today. Otherwise appears comfortable ventilator. Arousable and follows commands on sedation vacation. 12/01: Patient becomes tachypneic on attempted CPAP, even with high pressure support. I will add by mouth Ativan to reduce IV sedation requirement. Decreasing chest tube output 12/02: Patient failed spontaneous breathing trial clinically today secondary to severe tachypnea and tachycardia. His spiking fever upto 103. Panculture blood , dose of vancomycin given. Most likely patient is getting new sepsis 12/03: Continued to spike fever up to 102. Dose of vancomycin was given yesterday. Patient tolerated CPAP for 3 hours today, remains encephalopathic though. 12/04: Patient more awake alert follows commands, tolerated CPAP but did not tolerate TPs. Abdomen significantly distended, KUB shows ileus. Continues to spike high fever. Diflucan vancomycin added by ID and continue Ancef 12/05: Abdomen remains distended, CT yesterday show intra abdominal free air. Unclear whether related to PEG or perforation. D/W with Dr. Baker, will get repeat CT with oral contrast today. Zosyn added by ID 12/06 Patient is sedated with Fentanyl and Diprivan. CT abdomen/pelvis yesterday sowed small bowel dilation ( ileus vs obstruction) 12/07 Patient remains intubated on low dose Diprivan and Fentanyl infusion however he is awake. Tolerated CPAP all day yesterday T: 100.0 last night. SB series showed distended loops of small bowel. Renal function worse today with Cr: 2.4 from 1.96. 12/08 No events overnight. On Diprivan and Fentanyl drip for sedation. T:99.9 last night. 12/09 Patient remains on ventilator via trach, sedated with Diprivan and Fentanyl. T: 101.0 last night. s/p transfusion 1unit PRBC yesterday. 12/10 Patient is sedate with Dip, Fentanyl and intubated. T: 101.6 at 8 am. 12/11: patient remains on sedation for his agitated delirium. remains febrile today. 25kg up from admission and Cr uptrending. bedside critical care echo demonstrates 2cm ivc without respiratory variation, RVSP 48 mmHg, mild RV dilation, normal LV function. by physical exam, grossly volume overloaded. Subjective 12/12: patient less agitated. following commands. still did not diurese well on intermittent bumex. BNP severely elevated. on my examination today patient with leaking trach despite multiple inflation of balloon. trach swapped out over cook exchange catheter with good seal for new trach (8.0 shiley cuffed). not making improvements. Objective Vital Signs Date Time Temp Pulse Resp B/P Pulse Ox O2 Delivery O2 Flow Rate FiO2 12/12/16 17:42 98 35 12/12/16 16:30 119 12/12/16 16:30 30 128/58 12/12/16 16:00 98.6 12/11/16 19:00 Mechanical Ventilator 12/10/16 13:29 5.00 Intake and Output 12/11/16 12/11/16 12/12/16 08:00 16:00 00:00 Intake Total 849 ml 1510 ml 913 ml Output Total 700 ml 1518 ml 840 ml Balance 149 ml -8 ml 73 ml Result Diagram: 12/12/16 0428 12/12/16 0428 Other Results Microbiology Date/Time Procedure Status Source Growth 12/10/16 13:40 Gram Stain - Final Complete Sputum Endotracheal 12/10/16 13:40 Sputum Culture - Final Complete Pseudomonas Aeruginosa 12/10/16 18:30 Urine Culture - Final Complete Urine Catheterized Urine NO GROWTH IN 48 HOURS. Imaging Last Impressions Chest X-Ray 12/09/16 0000 Signed Impressions: Service Date/Time: Friday, December 09, 2016 16:36 - CONCLUSION: Right-sided chest tube placed with resolution of the subpulmonic pneumothorax. Bibasilar infiltrates are unchanged. Keyur Toro Jr., MD Chest Tube Insertion 12/09/16 0000 Signed Impressions: Service Date/Time: Friday, December 09, 2016 14:53 - CONCLUSION: Uncomplicated chest tube placement as above. Agustin Pérez MD Renal Ultrasound 12/07/16 0000 Signed Impressions: Service Date/Time: Wednesday, December 07, 2016 10:08 - CONCLUSION: Unremarkable renal ultrasound and a trace of ascites identified. Reba Banerjee MD Abdomen X-Ray 12/07/16 0000 Signed Impressions: Service Date/Time: Wednesday, December 07, 2016 16:16 - CONCLUSION: Limited study but no free air seen. Jhoan Bishop MD Small Bowel X-Ray 12/06/16 0000 Signed Impressions: Service Date/Time: Tuesday, December 06, 2016 16:55 - CONCLUSION: Distended loops of small bowel could be due to significant ileus versus partial small bowel obstruction and contrast gets into the colon at 13 hours. Reba Banerjee MD Abdomen Ultrasound 12/06/16 0000 Signed Impressions: Service Date/Time: Tuesday, December 06, 2016 11:31 - CONCLUSION: No free fluid is present. Agustin Bonner MD Abdomen/Pelvis CT 12/05/16 0000 Signed Impressions: Service Date/Time: November 23:28 - CONCLUSION: 1. Small bowel dilatation which may related to ileus or obstruction. The findings are similar to the prior exam. 2. Moderate ascites 3. Small pneumoperitoneum is present. Toribio Magana MD Brain MRI 11/21/16 0000 Signed Impressions: Service Date/Time: November 12:33 - CONCLUSION: Multifocal areas of restricted diffusion primarily in the periventricular and subcortical white matter bilaterally but also cortically based in the right frontal lobe. Findings likely represent ischemic change likely related to septic emboli given the patient's clinical history. No abscess or enhancing lesion is visualized. Agustin Bonner MD Head CT 11/17/16 0600 Signed Impressions: Service Date/Time: Thursday, November 17, 2016 10:39 - CONCLUSION: No significant change has occurred. eDven Urrutia MD Chest CT 11/16/16 0000 Signed Impressions: Service Date/Time: Wednesday, November 16, 2016 20:36 - CONCLUSION: 1. New right chest tube in the posterior superior right pleural space. There continues to be a moderate right pleural effusion primarily seen at the base. Some degree of loculation may be present inferiorly. The effusion does not layer posteriorly. There are scattered punctate areas of air within the pleural space inferiorly on the right. There is a solitary small area of air within the mild left pleural effusion. 2. Numerous irregular masses seen throughout both lungs some which are cavitary. These are nonspecific. Inflammatory masses needs be suspected. The multiplicity raises possibility of septic emboli. Agustin Price MD CT Angiography 11/13/16 1328 Signed Impressions: Service Date/Time: Sunday, November 13, 2016 15:50 - CONCLUSION: 1. Multiple cavitary lesions within both lungs with the largest measuring 9.5 cm in the right upper lobe. Differential diagnosis includes infectious and neoplastic etiologies. 2. Moderate sized right pleural effusion with adjacent compressive atelectasis and/or infiltrate. 3. Cardiomegaly and coronary artery calcifications. 4. Subcarinal mediastinal lymphadenopathy. 5. Degenerative changes throughout the thoracic spine. Jed Ponce MD Objective Remarks GENERAL: 56-year-old male, critically ill currently on ventilator via tracheostomy, SKIN: Warm and dry. Scattered skin lesions erythematous predominantly left lower extremity HEAD: Normocephalic and atraumatic. EYES: No injection, drainage. Pupils equally round and reactive around 3 mm ENT: No nasal drainage noted. Oropharynx is clear. NECK: trachea midline. Tracheostomy is clean dry and intact CARDIOVASCULAR: slightly tachycardic rate, regular rhythm. sinus by tele. RESPIRATORY: PSV 10/5/40%. equal chest rise GASTROINTESTINAL: Abdomen is distended, tympanic, no guarding MUSCULOSKELETAL: +3 pitting edema bilateral lower extremities. Multiple erythematous raised lesions on bilateral lower extremity predominantly left lower leg NEUROLOGICAL: Patient is awake on the ventilator. CAM-. 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 25kg up from admission, CHF refractory to diuretics. likely this will not get better given his pathology, but he is seeing end-organ damage from this. will start bumex drip for added forced diuresis. multiorgan failure secondary to infective endocarditis is unlikely to overall improve, and his prognosis is poor. I do not think he will survive this hospitalization. Very complex medical patient with multiple medical problems. Off pathway. NEURO/PSYCH: Metabolic encephalopathy Septic brain emboli Agitated Delirium off sedation. scheduled oxycodone 10mg po q4h per tube. seroquel 100mg po q8hr melatonin 5mg po qHS haldol 5mg iv q4h prn for breakthrough agitation will swap from metoprolol to propranolol for increased [employer] ABUSE [employer]IST penatration. --d/c ativan as this can be deliriogenic. EEG 11/24: Generalized encephalopathy without any significant epileptic activity. MRI brain 11/21: Ischemic changes throughout white matter likely related to septic emboli. Neuro Dr. Hernandez and has followed intermittently On change thiamine to PO. RESP: Bilateral cavitary lung lesions/most likely cavitating pneumonia from staph aureus Chronic respiratory failure Large right loculated pleural effusion/empyema Left pleural effusion Right pneumothorax Daily SBTs. start trach collar trials daily. Continue with vent support keep sat >90%. DuoNebs every 4 hours with albuterol nebs every 2 hours. Vent bundle. Status post tracheostomy by Dr. Baker 11/29 A second Right sided 16 Gren[place] chest tube placed by IR 12/09 Right-sided chest tube #28 Grenadian, advance CT and check CXR Left-sided chest tube #10 Gren[place]- placed 11/24/16-removed 12/02 Right thoracentesis with 1 L cloudy yellow fluid removed, fluid cell studies WBC 2,600, Patient status post pigtail catheter placement 11/14, 445 cc prior pulled out . Evaluated by Dr. Samuels/CT surgery. Per his recommendations, No indication for decortication at this time CV: Aortic valve endocarditis/large vegetation Moderate Aortic Insufficiency Congestive Heart Failure secondary to valvulopathy Sinus tachycardia Atrial fibrillation with RVR - resolved, now normal sinus rhythm Elevated troponin - likely rate dependent - d/c lopressor. start propranolol 20mg po q6h. , Monitor HR and BP keep MAP>65mmHg - 2-D echocardiogram revealed EF 55-60%. Moderate AR. CHANDNI revealed 17 mm x 17 millimeter mobile mass on aortic valve. - limited echo 11/22 Persistent vegetation - CT surgery. Recommendations no intervention at this time - needs aggressive forced diuresis. bumex drip with metolazone. continue albumin. GI: Intra peritoneal free air. (Related to PEG or perforation). Ileus Hypoalbuminemia Moderate protein calorie malnutrition/acute Continue with tube feeds- Nepro@40ml/hr. GI is following 12/06 SB series w/ Gastrografin showed distended SB loops- ileus vs partial bowel obstruction 12/[address] abdomen/pelvis- small pneumoperitoneum, small bowel dilation ( ileus vs obstruction) small pneumoperitoneum likely related to previous PEG tube placement, PEG tube to suction. GI/Surgery is following- Dr. Baker. CT abdomen 12/04 show intra peritoneal free air. ? related to PEG or perforation. IV Protonix for GI prophylaxis. Reglan, MiraLAX twice a day for bowel regimen Prev CT of the abdomen pelvis with IV contrast revealed possible ileus., Gastric contraction at gastric duodenal junction. 2 mm renal cyst. s/p PEG placement 11/29/16 : Acute kidney injury- persistent, not improving - may have component of congestive renal disease/cardiorenal syndrome from severe AI. Monitor renal function, I/O's, electrolytes replacement as needed. increase free water to 300mL q4h.monitor sodium level, Renal US: unremarkable, renal is following- Dr. Mireles ID: Severe sepsis Persistent fever Multilobar cavitating pneumonia secondary staph aureus Staph aureus empyema Aortic valve endocarditis - Continue with abx per ID ( Zosyn, Diflucan, Vanco, Ancef for endocarditis)- monitor for signs of infections ( Fever, WBC). Pertinent cultures 11/13 - blood cultures 2 - staph aureus 11/13 and 11/14- pleural fluid- staph aureus 11/14- sputum- staph aureus 11/15 - blood cultures 2 -staph aureus 11/16 - Bronch samples: Staph Aureus 11/16 Sputum: Staph Aureus 11/19 - blood cultures 2 - no growth 11/23 - pleural fluid - no growth 11/24 - blood cultures 2 - no growth 11/25 - UA - negative 11/25 - sputum no growth 12/02, 12/07: Urine C tropicalis 12/07: Sputum: Pseudomonas 12/07, 12/09 BC: NGTD HEME: Normocytic anemia - Monitor CBC,s/p transfusion 1u PRBC 12/08 ENDO: SSI with accuchecks for glycemic control TSH 0.6. PROPH: - Bilateral lower extremity SCDs. Heparin SQ on hold for anemia requiring blood transfusion IV Protonix for prophylaxis LINES: - peripheral IVs Palliative care is following Level 3 Benjamín Guzman MD Dec 12, 2016 18:08
--- NOTE | 2016-12-12 18:31 | HHI.NPPN ---
Subjective General Problems: Anemia, Edema, Hypotension Renal Failure: Acute History of Present Illness This is 56 years old male, with Resp. failure, post tracheostomy, develop MENDY. Additional Remarks Patient remain on the vent. and lethargic. Objective Data Data 12/11/16 12/12/16 19:00 07:00 Intake Total 1510 ml 1960 ml Output Total 1518 ml 1625 ml Balance -8 ml 335 ml Intake Oral 0 ml IV Total 839 ml 853 ml Tube Feeding 361 ml 587 ml Other 310 ml 520 ml Output Urine Total 350 ml 825 ml Stool Total 1100 ml 700 ml Chest Tube Drainage Total 68 ml 100 ml Vital Signs Date Time Temp Pulse Resp B/P Pulse Ox O2 Delivery O2 Flow Rate FiO2 12/12/16 17:42 98 35 12/12/16 16:30 119 12/12/16 16:30 119 30 128/58 97 12/12/16 16:00 118 12/12/16 16:00 98.6 118 30 125/58 99 12/12/16 16:00 40 12/12/16 15:30 109 12/12/16 15:30 109 30 114/59 98 12/12/16 15:00 109 27 121/59 98 12/12/16 15:00 109 12/12/16 14:30 111 12/12/16 14:30 111 29 118/58 99 12/12/16 14:25 98.6 112 25 123/58 98 12/12/16 14:05 98.6 114 26 123/59 97 12/12/16 14:03 97 35 12/12/16 14:00 114 34 123/59 97 12/12/16 14:00 114 12/12/16 13:30 115 33 126/63 97 12/12/16 13:30 115 12/12/16 13:00 110 12/12/16 13:00 110 27 119/58 98 12/12/16 12:30 110 27 122/58 98 12/12/16 12:30 110 12/12/16 12:00 100.0 106 31 117/59 99 12/12/16 12:00 40 12/12/16 12:00 106 12/12/16 11:30 106 12/12/16 11:30 106 35 110/57 99 12/12/16 11:00 109 12/12/16 11:00 109 26 119/58 100 7/27/17 10:32 99.9 105 28 109/55 97 12/12/16 10:25 35 12/12/16 10:23 99 35 12/12/16 10:20 40 12/12/16 10:12 98.6 109 27 117/56 99 12/12/16 10:00 109 12/12/16 10:00 109 28 117/56 100 12/12/16 09:00 104 12/12/16 09:00 104 32 111/55 99 12/12/16 08:00 35 12/12/16 08:00 108 12/12/16 08:00 98.6 108 28 116/56 100 12/12/16 07:00 109 26 112/76 100 12/12/16 07:00 109 12/12/16 04:39 99 35 12/12/16 04:00 35 12/12/16 04:00 98.5 100 31 106/53 99 12/12/16 02:35 98 35 12/12/16 00:00 98.8 92 30 93/54 98 12/12/16 00:00 35 12/11/16 23:54 99 35 12/11/16 22:00 12/11/16 20:38 98 35 12/11/16 20:00 12/11/16 20:00 99.0 93 26 109/53 98 12/11/16 20:00 35 12/11/16 19:00 97 12/11/16 19:00 97 27 107/52 97 12/11/16 19:00 98 Mechanical Ventilator 40 12/11/16 18:30 104 29 116/58 97 12/11/16 18:30 104 -: 12/12/16 0428 12/12/16 0428 Physical Exam General Appearance Remarks On the vent. with Trach. Eyes Eye Exam: Pupils Equal Throat Throat Exam: Oral Mucosa [place] & Moist Neck Neck Exam: Neck Supple Pulmonary Resp Exam: No Distress, Crackles, Rhonchi, Decreased Bases, Diminished Breath Sounds Cardiology CV Exam: Tachycardia Gastrointestinal/Abdomen GI Exam: Soft, Non-Tender, Bowel Sounds Present, Distended Extremeties Extremities Exam: Moderate Edema, Pitting Edema, Dependent Edema Neurologic Neuro Exam: Obtunded, Unresponsive Assessment/Plan Assessment Summary: MENDY/Acute Renal Failure, Hypotension Problem List: (1) Leukocytosis (2) Acute respiratory insufficiency (3) Sepsis (4) multiple pulmonary cavitary lesions (5) severe encephalopathy, likely due to sepsis and multiple embolic infarctions (6) Acute kidney injury Plan Started on Bumex infusion, and got one dose of Metolazone. Urine out put is better. BP is stable. Urine Na. is normal, most likely has ATN causing MENDY. Continue antibiotics. Creatinine is increased slightly and Hgb. dropped. Palliative care following. Problem Qualifiers (1) Sepsis: Qualified Code: A41.9 - Sepsis, due to unspecified organism Otoniel Mireles MD Dec 12, 2016 18:31
[2016-12-12] MEDS ORDERED: METOLAZONE 5 MG TAB PO ONE (18:45)
--- NOTE | 2016-12-12 19:06 | HHI.PR ---
Subjective Remarks Patient was intubated last night for acute hypoxemic resp failure and a right chest tube was placed for right hydroPTX in addition patient underwent bronch with BAL ( mucous plugs b/l suctioned to clear). MRI brain multifocal area of septic emboli/infarct Had Trach and PEG Tolerates TF Started Oxycodone and Seraquel had trach tube changed Objective Vital Signs Vital Signs Date Time Temp Pulse Resp B/P Pulse Ox O2 Delivery O2 Flow Rate FiO2 12/12/16 18:30 100 12/12/16 18:00 103 12/12/16 17:42 98 35 12/12/16 17:30 109 12/12/16 17:00 117 12/12/16 16:30 119 12/12/16 16:30 119 30 128/58 97 12/12/16 16:00 118 12/12/16 16:00 98.6 118 30 125/58 99 12/12/16 16:00 40 12/12/16 15:30 109 12/12/16 15:30 109 30 114/59 98 12/12/16 15:00 109 27 121/59 98 12/12/16 15:00 109 12/12/16 14:30 111 12/12/16 14:30 111 29 118/58 99 12/12/16 14:25 98.6 112 25 123/58 98 12/12/16 14:05 98.6 114 26 123/59 97 12/12/16 14:03 97 35 12/12/16 14:00 114 34 123/59 97 12/12/16 14:00 114 12/12/16 13:30 115 33 126/63 97 12/12/16 13:30 115 12/12/16 13:00 110 12/12/16 13:00 110 27 119/58 98 12/12/16 12:30 110 27 122/58 98 12/12/16 12:30 110 12/12/16 12:00 100.0 106 31 117/59 99 12/12/16 12:00 40 12/12/16 12:00 106 12/12/16 11:30 106 12/12/16 11:30 106 35 110/57 99 12/12/16 11:00 109 12/12/16 11:00 109 26 119/58 100 12/12/16 10:32 99.9 105 28 109/55 97 12/12/16 10:25 35 12/12/16 10:23 99 35 12/12/16 10:20 40 12/12/16 10:12 98.6 109 27 117/56 99 12/12/16 10:00 109 12/12/16 10:00 109 28 117/56 100 12/12/16 09:00 104 12/12/16 09:00 104 32 111/55 99 12/12/16 08:00 35 12/12/16 08:00 108 12/12/16 08:00 98.6 108 28 116/56 100 12/12/16 07:00 109 26 112/76 100 12/12/16 07:00 109 12/12/16 04:39 99 35 12/12/16 04:00 35 12/12/16 04:00 98.5 100 31 106/53 99 12/12/16 02:35 98 35 12/12/16 00:00 98.8 92 30 93/54 98 12/12/16 00:00 35 12/11/16 23:54 99 35 12/11/16 22:00 12/11/16 20:38 98 35 12/11/16 20:00 12/11/16 20:00 99.0 93 26 109/53 98 12/11/16 20:00 35 I/O 12/11/16 12/11/16 12/11/16 12/12/16 12/12/16 12/12/16 06:59 14:59 22:59 06:59 14:59 22:59 Intake Total 849 ml 1510 ml 913 ml 1047 ml 677 ml 129 ml Output Total 700 ml 1518 ml 840 ml 785 ml 1520 ml Balance 149 ml -8 ml 73 ml 262 ml -843 ml 129 ml Intake Oral 0 ml 0 ml IV Total 321 ml 839 ml 351 ml 502 ml 103 ml Tube Feeding 278 ml 361 ml 302 ml 285 ml Packed Cells 574 ml 129 ml Other 250 ml 310 ml 260 ml 260 ml Output Urine Total 375 ml 350 ml 500 ml 325 ml 1200 ml Stool Total 225 ml 1100 ml 300 ml 400 ml 250 ml Gastric Drainage Total 0 ml Chest Tube Drainage Total 100 ml 68 ml 40 ml 60 ml 70 ml Result Diagram: 12/12/16 0428 12/12/16 042 Objective Remarks GENERAL: Patient is 56 yo critically ill intubated , sedated and on pressors. SKIN: Warm and dry. HEAD: Normocephalic. EYES: No scleral icterus. No injection or drainage. NECK: Supple, trachea midline. No JVD or lymphadenopathy. CARDIOVASCULAR: Regular rate and rhythm without murmurs, gallops, or rubs. RESPIRATORY: Breath sounds equal bilaterally. No accessory muscle use. GASTROINTESTINAL: Abdomen soft, non-tender, distended., tympanic MUSCULOSKELETAL: No cyanosis, or edema. Neuro: Sedated and intubated A/P Assessment and Plan 1VDRF 2)Septic shock 3)Staph Aureus bacteremia 4)Empyema 6)Endocarditis involving AV 7)Leucocytosis 8)Cavitary pulm masses 2nd staph Aureus 9)Right hydroPTX PLAN: Continue with vent support keep sat >92% Bronchodilators, ICU vent bundle, on stress dose steroids- Abx per ID Chest tube to suction Sedation with oxycodone and Seraquel CPAP in AM TF 40 cc/hr Emmett Bolton MD Dec 12, 2016 19:06
[2016-12-12] MEDS ORDERED: BUMETANIDE INJ 100 ML IV SCH (20:00)
[2016-12-12 20:35] LABS: BACTERIA, URINE RARE /hpf; BLOOD, URINE MOD (NEG); GLUCOSE,URINE NEG (NEG); GRANULAR CAST, URINE 39 /lpf; HYALINE CAST, URINE 4 /lpf (RARE); KETONE, URINE NEG (NEG); NITRITE,URINE NEG (NEG); PH, URINE 5.5 (5.0-8.5); URINE COLOR YELLOW (YELLW/STRAW)
[2016-12-12 20:37] LABS: COMMENT (UR) CATH-CULTURE IND; CULTURE IF INDICATED CATH CULTURE IND
[2016-12-12 21:24] LABS: POTASSIUM 3.7 MEQ/L (3.5-5.1)
[2016-12-12] MEDS: MELATONIN 5 MG TAB PO SCH (21:43)
[2016-12-13] VITALS (35 sets, daily range): BP systolic 83–114; BP diastolic 45–58; PULSE 82–97; RESP 17–28; TEMP 98.8–100.8; O2SAT 98–100
[2016-12-13] MEDS: ALBUMIN HUMAN 25% 25 GM/100 ML BAGP IV SCH ×3 (01:14→17:48)
[2016-12-13] MEDS: oxyCODONE HCL ORAL CONC 20 MG/ML SYRINGE PO SCH ×7 (01:15→23:59)
[2016-12-13] MEDS: PIPERACIL-TAZO 3.375 GM PREMIX 50 ML IV SCH ×4 (02:46→20:07)
[2016-12-13] MEDS: RESP: ALBUTEROL 2.5 MG/3 ML NEB (PRN) INH (03:07)
[2016-12-13] MEDS: FREE WATER G-TUBE SCH ×6 (04:00→23:59)
[2016-12-13] MEDS: CHLORHEXIDINE GLUCONATE 2 % 1 PACK (2 CLOTHS) TOP SCH (04:00)
[2016-12-13] MEDS: INSULIN ASPART SUPPLEMENTAL SCALE SQ SCH ×4 (05:00→22:15)
[2016-12-13] MEDS: PROPRANOLOL HCL 20 MG TAB PO SCH ×4 (05:08→23:59)
[2016-12-13] MEDS: ARTIFICIAL TEARS OPTH SOLN 15 ML BTL EACH EYE SCH ×3 (05:09→22:11)
[2016-12-13] MEDS: QUEtiapine FUMARATE 100 MG TAB PO SCH ×3 (05:10→22:11)
[2016-12-13 06:12] LABS: HEMATOCRIT 23.3 % (39.0-51.0); MEAN CELL VOLUME 90.6 FL (80.0-100.0); MEAN CORPUSCULAR HEMOGLOBIN 30.6 PG (27.0-34.0); MEAN CORPUSCULAR HGB CONC 33.7 % (32.0-36.0); PLATELET COUNT 155 TH/MM3 (150-450); RED BLOOD COUNT 2.57 MIL/MM3 (4.50-5.90); RED CELL DISTRIBUTION WIDTH 17.2 % (11.6-17.2); REVIEW FLAG FINAL; WHITE BLOOD COUNT 9.5 TH/MM3 (4.0-11.0)
[2016-12-13 06:38] LABS: BICARBONATE 19.9 MEQ/L (21.0-32.0); POTASSIUM 3.3 MEQ/L (3.5-5.1)
[2016-12-13] MEDS: CHLORHEXIDINE 0.12% (ORAL KIT) 15 ML CUP MT SCH ×2 (08:00→20:07)
[2016-12-13] MEDS ORDERED: POTASSIUM CHLOR 20 MEQ PREMIX 100 ML IV ONE (09:00)
--- NOTE | 2016-12-13 09:09 | HHI.CCPN ---
Subjective Remarks/Hospital Course 56-year-old male is brought to the emergency department by EMS for evaluation of generalized weakness, confusion for about 2 weeks, and also increasing shortness of breath. His oxygen saturation was 88% on room air. EMS administered breathing treatments and Solu-Medrol 125 mg 1 and placed him on nasal cannula. Patient states that he had been sick for almost 10 days, but he is a poor historian. He had a productive cough, but reports no hematemesis or weight loss. He states that it was his neighbor who made him called EMS. He has no past medical history and last time had seen a doctor was about 15 years ago. He denies any fevers but reports some night sweats and chills. He was tachycardic with a heart rate of 115 bpm, had severe leukocytosis with a white count of 35,000 with 91% neutrophils. CMP shows hyponatremia with a sodium of 126. Lactic acid is 2.4. His Chest x-ray shows large 7.7 x 7.8 cm cavitary right midlung lesion with associated right-sided pleural effusion. Subcentimeter left mid lung pulmonary nodules. Patient received 1 L normal saline bolus and Zosyn 4.5 g and Zithromax 500 mg IV and was placed on TB/ respiratory isolation. He has been being in nursing home 2 years ago increasing his risk of tuberculosis. CT pulmonary angiogram negative for PE but showed multiple cavitary lesions within both lungs with the largest measuring 9.5 cm in the right upper lobe. Moderate size right pleural effusion. I evaluated the patient in the emergency department. Patient appears critically ill in moderate distress mildly tachypneic, sweating. I performed a bedside ultrasound which showed a right effusion which is large. The thoracentesis was performed and 1 L of cloudy dark pleural fluid was removed. Patient will be continued on Zosyn and Levaquin and vancomycin. ID consulted and I discussed with Dr. Steele-she recommended no empiric treatments for TB. 11/14/16: Patient seen and examined complaints of severe epigastric and periumbilical abdominal pain. Patient remains oriented to person. His white count is slightly improved from 35,000-28,9000. Na improved to 136. I have ordered a STAT CT abd/pelvis with IV contrast. Chest x-ray shows reaccumulation of right pleural effusion-fluid chemistries are pending but cell count indicates at least a parapneumonic effusion and patient will need a pigtail chest tube 11/15: Patient pulled his right-sided pigtail catheter out overnight last night. Currently nasal cannula in no acute distress. Afebrile. Continues to have a leukocytosis. 11/16: Currently on room air. Hold out his IVs reportedly overnight last night. Requesting diet. Awake and alert and following commands. 11/17: Intubated yesterday due to acute hypercapnic respiratory failure. Hypoxic post intubation requiring right chest tube placement, bronchoscopy and Flolan. Bronchoscopy revealed thick mucous plugging at bilateral right and left mainstem which were clear. Improved oxygenation over the past 12 hours. Afebrile. 11/18 Patient remains sedated with Diprivan, Fentanyl and intubated. On Vasopressin and Neosyn 120 mics. 11/19 Patient is sedated with Diprivan, Fentanyl and intubated. Afebrile. Off all pressors. Afebrile. WBC is trending down 30 today from 50. 11/20: Remains severely septic and encephalopathic even though weaned off all pressors. White count still elevated but trending down. Became extremely tachycardic and tachypneic on lowering sedation. We'll check MRI of the brain to rule out embolic infarct. Family at the bedside updated 11/21 Remains heavily sedated, remains encephalopathic. MRI brain is pending. Family is at bedside. Remains critically with resp failure severe from endocarditis, now unable to wean off the ventilator due to severe metabolic encephalopathy 11/22 No events overnight. Sedated with Diprivan, fentanyl and intubated. Afebrile. MRI brain yesterday showed ischemic changes likely related to septic emboli. 11/23: Patient remains encephalopathic, severe hyponatremia possible contributing , Na is 157 today. Currently on Precedex and fentanyl. CXR shows increasing L effusion 11/24: Patient more awake today. Follows Commands but did not tolerate spontaneous breathing trials. Had left pigtail chest tube placed yesterday 1.6 L transudative fluid removal since placement 11/25 Patient is sedated with Diprivan, Fentanyl and intubated. T:99.9 11/26 No events overnight. Sedated and intubated. Patient was on CPAP x 3 hrs yesterday then became tachypneic. 11/27: Resting in bed comfortably on Diprivan at 40 mics grams per kilogram per minute and fentanyl drip at 200 an hour. Tolerated PSV trial 2 hours yesterday before becoming tachypnea. Positive BM via fecal containment device 1100 cc. Yesterday according to RN was following commands. 11/28: Currently afebrile. Tolerating PSV trials 1.5 hours today for became tachypneic. Awake and alert and follows commands. Neurologically intact. Positive BM. 11/29: Tmax 99.6. Status post percutaneous tracheostomy secondary to failed extubation trials. Plan for PEG tube today. Awake and interactive the ventilator on sedation vacation. 11/30: DrAzael currently 98.8. Status post percutaneous tracheostomy Dr. Baker yesterday and PEG tube placement by Dr. Figueroa. Tube feeds will be resumed today. Otherwise appears comfortable ventilator. Arousable and follows commands on sedation vacation. 12/01: Patient becomes tachypneic on attempted CPAP, even with high pressure support. I will add by mouth Ativan to reduce IV sedation requirement. Decreasing chest tube output 12/02: Patient failed spontaneous breathing trial clinically today secondary to severe tachypnea and tachycardia. His spiking fever upto 103. Panculture blood , dose of vancomycin given. Most likely patient is getting new sepsis 12/03: Continued to spike fever up to 102. Dose of vancomycin was given yesterday. Patient tolerated CPAP for 3 hours today, remains encephalopathic though. 12/04: Patient more awake alert follows commands, tolerated CPAP but did not tolerate TPs. Abdomen significantly distended, KUB shows ileus. Continues to spike high fever. Diflucan vancomycin added by ID and continue Ancef 12/05: Abdomen remains distended, CT yesterday show intra abdominal free air. Unclear whether related to PEG or perforation. D/W with Dr. Baker, will get repeat CT with oral contrast today. Zosyn added by ID 12/06 Patient is sedated with Fentanyl and Diprivan. CT abdomen/pelvis yesterday sowed small bowel dilation ( ileus vs obstruction) 12/07 Patient remains intubated on low dose Diprivan and Fentanyl infusion however he is awake. Tolerated CPAP all day yesterday T: 100.0 last night. SB series showed distended loops of small bowel. Renal function worse today with Cr: 2.4 from 1.96. 12/08 No events overnight. On Diprivan and Fentanyl drip for sedation. T:99.9 last night. 12/09 Patient remains on ventilator via trach, sedated with Diprivan and Fentanyl. T: 101.0 last night. s/p transfusion 1unit PRBC yesterday. 12/10 Patient is sedate with Dip, Fentanyl and intubated. T: 101.6 at 8 am. 12/11: patient remains on sedation for his agitated delirium. remains febrile today. 25kg up from admission and Cr uptrending. bedside critical care echo demonstrates 2cm ivc without respiratory variation, RVSP 48 mmHg, mild RV dilation, normal LV function. by physical exam, grossly volume overloaded. Subjective 12/12: patient less agitated. following commands. still did not diurese well on intermittent bumex. BNP severely elevated. on my examination today patient with leaking trach despite multiple inflation of balloon. trach swapped out over cook exchange catheter with good seal for new trach (8.0 shiley cuffed). not making improvements. 12/13 No events overnight. On Bumex drip 1mg/hr, T: 100.8. Off sedation. Objective Vital Signs Date Time Temp Pulse Resp B/P Pulse Ox O2 Delivery O2 Flow Rate FiO2 12/13/16 08:50 99 35 12/13/16 08:00 100.8 88 23 94/50 12/13/16 07:00 Mechanical Ventilator 12/10/16 13:29 5.00 Intake and Output 12/12/16 12/12/16 12/13/16 08:00 16:00 00:00 Intake Total 1047 ml 777 ml 1254 ml Output Total 785 ml 1520 ml 685.0 ml Balance 262 ml -743 ml 569.0 ml Result Diagram: 12/13/16 0551 12/13/16 0551 Other Results Laboratory Tests Test 12/12/16 12/12/16 12/13/16 18:25 19:09 05:51 Urine Color YELLOW Urine Turbidity CLOUDY Urine pH 5.5 Urine Specific [place] 1.021 Urine Protein 100 mg/dL Urine Glucose (UA) NEG mg/dL Urine Ketones NEG mg/dL Urine Occult Blood MOD Urine Nitrite NEG Urine Bilirubin NEG Urine Urobilinogen LESS THAN 2.0 MG/DL Urine Leukocyte Esterase MOD Urine RBC 16 /hpf Urine WBC 34 /hpf Urine Amorphous Sediment RARE Urine Bacteria RARE /hpf Urine Hyaline Casts 4 /lpf Urine Granular Casts 39 /lpf Microscopic Urinalysis Comment CATH-CULTURE IND Sodium Level 150 MEQ/L 149 MEQ/L Potassium Level 3.7 MEQ/L 3.3 MEQ/L Chloride Level 123 MEQ/L 120 MEQ/L Carbon Dioxide Level 17.0 MEQ/L 19.9 MEQ/L Anion Gap 10 MEQ/L 9 MEQ/L Blood Urea Nitrogen 64 MG/DL 67 MG/DL Creatinine 2.79 MG/DL 3.02 MG/DL Estimat Glomerular Filtration 24 ML/MIN 22 ML/MIN Rate Random Glucose 128 MG/DL 124 MG/DL Calcium Level 8.0 MG/DL 7.9 MG/DL White Blood Count 9.5 TH/MM3 Red Blood Count 2.57 MIL/MM3 Hemoglobin 7.9 GM/DL Hematocrit 23.3 % Mean Corpuscular Volume 90.6 FL Mean Corpuscular Hemoglobin 30.6 PG Mean Corpuscular Hemoglobin 33.7 % Concent Red Cell Distribution Width 17.2 % Platelet Count 155 TH/MM3 Mean Platelet Volume 7.8 FL Imaging Last Impressions Chest X-Ray 12/12/16 0600 Signed Impressions: Service Date/Time: November 03:53 - CONCLUSION: 1. Increased airspace consolidation in the right lower lung zone. The left lung base opacity is stable. 2. Right chest tube is present and no pneumothorax is visualized. Agustin Bonner MD Chest Tube Insertion 12/09/16 0000 Signed Impressions: Service Date/Time: Friday, December 09, 2016 14:53 - CONCLUSION: Uncomplicated chest tube placement as above. Agustin Pérez MD Renal Ultrasound 12/07/16 0000 Signed Impressions: Service Date/Time: Wednesday, December 07, 2016 10:08 - CONCLUSION: Unremarkable renal ultrasound and a trace of ascites identified. Reba Banerjee MD Abdomen X-Ray 12/07/16 0000 Signed Impressions: Service Date/Time: Wednesday, December 07, 2016 16:16 - CONCLUSION: Limited study but no free air seen. Jhoan Bishop MD Small Bowel X-Ray 12/06/16 0000 Signed Impressions: Service Date/Time: Tuesday, December 06, 2016 16:55 - CONCLUSION: Distended loops of small bowel could be due to significant ileus versus partial small bowel obstruction and contrast gets into the colon at 13 hours. Reba Banerjee MD Abdomen Ultrasound 12/06/16 0000 Signed Impressions: Service Date/Time: Tuesday, December 06, 2016 11:31 - CONCLUSION: No free fluid is present. Agustin Bonner MD Abdomen/Pelvis CT 12/05/16 0000 Signed Impressions: Service Date/Time: November 23:28 - CONCLUSION: 1. Small bowel dilatation which may related to ileus or obstruction. The findings are similar to the prior exam. 2. Moderate ascites 3. Small pneumoperitoneum is present. Toribio Magana MD Brain MRI 11/21/16 0000 Signed Impressions: Service Date/Time: November 12:33 - CONCLUSION: Multifocal areas of restricted diffusion primarily in the periventricular and subcortical white matter bilaterally but also cortically based in the right frontal lobe. Findings likely represent ischemic change likely related to septic emboli given the patient's clinical history. No abscess or enhancing lesion is visualized. Agustin Bonner MD Head CT 11/17/16 0600 Signed Impressions: Service Date/Time: Thursday, November 17, 2016 10:39 - CONCLUSION: No significant change has occurred. Deven Urrutia MD Chest CT 11/16/16 0000 Signed Impressions: Service Date/Time: Wednesday, November 16, 2016 20:36 - CONCLUSION: 1. New right chest tube in the posterior superior right pleural space. There continues to be a moderate right pleural effusion primarily seen at the base. Some degree of loculation may be present inferiorly. The effusion does not layer posteriorly. There are scattered punctate areas of air within the pleural space inferiorly on the right. There is a solitary small area of air within the mild left pleural effusion. 2. Numerous irregular masses seen throughout both lungs some which are cavitary. These are nonspecific. Inflammatory masses needs be suspected. The multiplicity raises possibility of septic emboli. Agustin Price MD CT Angiography 11/13/16 1328 Signed Impressions: Service Date/Time: Sunday, November 13, 2016 15:50 - CONCLUSION: 1. Multiple cavitary lesions within both lungs with the largest measuring 9.5 cm in the right upper lobe. Differential diagnosis includes infectious and neoplastic etiologies. 2. Moderate sized right pleural effusion with adjacent compressive atelectasis and/or infiltrate. 3. Cardiomegaly and coronary artery calcifications. 4. Subcarinal mediastinal lymphadenopathy. 5. Degenerative changes throughout the thoracic spine. Jed Ponce MD Objective Remarks GENERAL: 56-year-old male, critically ill currently on ventilator via tracheostomy, SKIN: Warm and dry. Scattered skin lesions erythematous predominantly left lower extremity HEAD: Normocephalic and atraumatic. EYES: No injection, drainage. Pupils equally round and reactive around 3 mm ENT: No nasal drainage noted. Oropharynx is clear. NECK: trachea midline. Tracheostomy is clean dry and intact CARDIOVASCULAR: slightly tachycardic rate, regular rhythm. sinus by tele. RESPIRATORY: PSV 10/5/40%. equal chest rise GASTROINTESTINAL: Abdomen is distended, tympanic, no guarding MUSCULOSKELETAL: +3 pitting edema bilateral lower extremities. Multiple erythematous raised lesions on bilateral lower extremity predominantly left lower leg NEUROLOGICAL: Patient is awake on the ventilator. CAM-. 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 25kg up from admission, CHF refractory to diuretics. likely this will not get better given his pathology, but he is seeing end-organ damage from this. will start bumex drip for added forced diuresis. multiorgan failure secondary to infective endocarditis is unlikely to overall improve, and his prognosis is poor. I do not think he will survive this hospitalization. Very complex medical patient with multiple medical problems. Off pathway. NEURO/PSYCH: Metabolic encephalopathy Septic brain emboli Agitated Delirium off sedation. scheduled oxycodone 10mg po q4h per tube. Seroquel 100mg po q8hr melatonin 5mg po qHS Haldol 5mg iv q4h prn for breakthrough agitation EEG 11/24: Generalized encephalopathy without any significant epileptic activity. MRI brain 11/21: Ischemic changes throughout white matter likely related to septic emboli. Neuro Dr. Hernandez and has followed intermittently On change thiamine to PO. RESP: Bilateral cavitary lung lesions/most likely cavitating pneumonia from staph aureus Chronic respiratory failure Large right loculated pleural effusion/empyema Left pleural effusion Right pneumothorax Daily SBTs. start trach collar trials daily. Continue with vent support keep sat >90%. DuoNebs every 4 hours with albuterol nebs every 2 hours. Vent bundle. Status post tracheostomy by Dr. Baekr 11/29 A second Right sided 16 [place] chest tube placed by IR 12/09 Right-sided chest tube #28 [place], Left-sided chest tube #10 [place]- placed 11/24/16-removed 12/02 Right thoracentesis with 1 L cloudy yellow fluid removed, fluid cell studies WBC 2,600, Patient status post pigtail catheter placement 11/14, 445 cc prior pulled out . Evaluated by Dr. Samuels/CT surgery. Per his recommendations, No indication for decortication at this time CV: Aortic valve endocarditis/large vegetation Moderate Aortic Insufficiency Congestive Heart Failure secondary to valvulopathy Sinus tachycardia Atrial fibrillation with RVR - resolved, now normal sinus rhythm Elevated troponin - likely rate dependent - On propranolol 30mg po q6h. , Monitor HR and BP keep MAP>65mmHg - 2-D echocardiogram revealed EF 55-60%. Moderate AR. CHANDNI revealed 17 mm x 17 millimeter mobile mass on aortic valve. - limited echo 11/22 Persistent vegetation - CT surgery. Recommendations no intervention at this time GI: Intra peritoneal free air. (Related to PEG or perforation). Ileus Hypoalbuminemia Moderate protein calorie malnutrition/acute Continue with tube feeds- Nepro@40ml/hr. GI is following 12/06 SB series w/ Gastrografin showed distended SB loops- ileus vs partial bowel obstruction 12/[address] abdomen/pelvis- small pneumoperitoneum, small bowel dilation ( ileus vs obstruction) small pneumoperitoneum likely related to previous PEG tube placement, PEG tube to suction. GI/Surgery is following- Dr. Baker. CT abdomen 12/04 show intra peritoneal free air. ? related to PEG or perforation. IV Protonix for GI prophylaxis. Reglan, MiraLAX twice a day for bowel regimen Prev CT of the abdomen pelvis with IV contrast revealed possible ileus., Gastric contraction at gastric duodenal junction. 2 mm renal cyst. s/p PEG placement 11/29/16 : Acute kidney injury- persistent, not improving - may have component of congestive renal disease/cardiorenal syndrome from severe AI. Monitor renal function, I/O's, electrolytes replacement as needed. On Bumex 1mg/ hr., Albumin 25gms Q8 Cr: 3.0 from 2.79, UOP: 2375ml in 24 hrs On free water to 300mL q4h.monitor sodium level, Renal US: unremarkable, renal is following- Dr. Mireles ID: Severe sepsis Persistent fever Multilobar cavitating pneumonia secondary staph aureus Staph aureus empyema Aortic valve endocarditis - Continue with abx per ID ( Zosyn, Levaquin, Diflucan, Vanco, Ancef for endocarditis)- monitor for signs of infections ( Fever, WBC). Pertinent cultures 11/13 - blood cultures 2 - staph aureus 11/13 and 11/14- pleural fluid- staph aureus 11/14- sputum- staph aureus 11/15 - blood cultures 2 -staph aureus 11/16 - Bronch samples: Staph Aureus 11/16 Sputum: Staph Aureus 11/19 - blood cultures 2 - no growth 11/23 - pleural fluid - no growth 11/24 - blood cultures 2 - no growth 11/25 - UA - negative 11/25 - sputum no growth 12/02, 12/07: Urine C tropicalis 12/07, 12/10: Sputum: Pseudomonas 12/07, 12/09 BC: NGTD HEME: Normocytic anemia - Monitor CBC,s/p transfusion 1u PRBC 12/08, 2units PRBC given 12/12 ENDO: SSI with accuchecks for glycemic control TSH 0.6. PROPH: - Bilateral lower extremity SCDs. Heparin SQ on hold for anemia requiring blood transfusion IV Protonix for prophylaxis LINES: - peripheral IVs Palliative care is following Level 3 Noam Calhoun MD Dec 13, 2016 09:09
[2016-12-13] MEDS: SODIUM CHLORIDE 0.9% FLUSH 10 ML FLUSH IV FLUSH SCH ×2 (09:11→21:09)
[2016-12-13] MEDS: SODIUM CHLORIDE 0.9% FLUSH 10 ML FLUSH IV FLUSH PRN (09:11)
[2016-12-13] MEDS: SODIUM CHLORIDE 0.9% FLUSH 10 ML FLUSH IVF SCH (09:11)
[2016-12-13] MEDS: FOLIC ACID 1 MG TAB PO SCH (09:11)
[2016-12-13] MEDS: ACETAMINOPHEN 325 MG TAB PO PRN (09:11)
[2016-12-13] MEDS: SODIUM CHLORIDE 0.9% FLUSH 10 ML FLUSH IVF PRN (09:11)
[2016-12-13] MEDS: MULTIVITAMIN TAB PO SCH (09:11)
[2016-12-13] MEDS: THIAMINE HCL 100 MG TAB PO SCH (09:11)
[2016-12-13] MEDS: PANTOPRAZOLE SODIUM 40 MG VIAL IV SCH ×2 (09:12→21:09)
--- NOTE | 2016-12-13 13:05 | HHI.IDPN ---
Note Infectious Disease Note On the vent. Lethargic. On CPAP. Opens eyes but drifts back to sleep. Low grade temp now. No distress. D/W RN. Large vegetation on AV and moderate aortic regurg on CHANDNI. Culture of blood 11/13, 11/15, 11/16. - Staph aureus. 11/19 no growth. Culture of pleural fluid 11/14 - staph aureus. ALLERGIES NO KNOWN DRUG ALLERGIES. ANTIBIOTICS: Ancef. Pip/Tazo. Diflucan. levaquin. OBJECTIVE: Vital Signs Date Time Temp Pulse Resp B/P Pulse Ox O2 Delivery O2 Flow Rate FiO2 12/13/16 12:00 85 12/13/16 12:00 35 12/13/16 12:00 100.2 85 22 84/47 100 12/13/16 11:41 100 35 12/13/16 11:00 87 19 91/55 100 12/13/16 10:00 86 22 92/55 99 12/13/16 10:00 86 12/13/16 09:00 86 23 93/50 100 12/13/16 08:50 99 35 12/13/16 08:00 35 12/13/16 08:00 100.8 88 23 94/50 100 12/13/16 08:00 86 12/13/16 07:00 100 Mechanical Ventilator 35 12/13/16 07:00 88 23 94/50 100 12/13/16 06:30 87 22 95/51 100 12/13/16 06:00 91 23 99/51 100 12/13/16 06:00 91 12/13/16 05:30 93 25 114/57 99 12/13/16 05:00 91 26 109/56 99 12/13/16 04:30 93 26 108/54 98 12/13/16 04:00 94 26 108/54 98 12/13/16 04:00 94 12/13/16 04:00 35 12/13/16 04:00 98.8 94 25 108/54 99 12/13/16 03:52 98 35 12/13/16 03:30 97 24 113/57 98 12/13/16 03:00 93 25 110/58 98 12/13/16 02:30 91 26 107/55 100 12/13/16 02:15 25 12/13/16 02:00 92 26 109/55 99 12/13/16 02:00 92 12/13/16 01:30 91 25 106/55 99 12/13/16 01:00 99 35 12/13/16 01:00 91 27 106/58 99 12/13/16 00:30 91 26 107/58 99 12/13/16 00:00 93 28 108/55 99 12/13/16 00:00 99.4 93 26 108/55 99 12/13/16 00:00 93 12/13/16 00:00 35 12/13/16 00:00 93 28 108/55 99 12/12/16 23:30 94 28 105/59 92 12/12/16 23:00 96 30 106/56 97 12/12/16 22:43 99 35 12/12/16 22:30 92 25 106/56 99 12/12/16 22:00 97 29 110/55 99 12/12/16 22:00 97 12/12/16 21:30 97 33 110/55 99 12/12/16 21:00 97 30 112/56 99 12/12/16 20:30 95 34 110/55 98 12/12/16 20:00 99 12/12/16 20:00 99 28 111/56 99 12/12/16 20:00 35 12/12/16 20:00 99.9 99 24 111/56 99 12/12/16 20:00 99 Mechanical Ventilator 35 12/12/16 18:30 100 12/12/16 18:00 103 12/12/16 17:42 98 35 12/12/16 17:30 109 12/12/16 17:00 117 12/12/16 16:30 119 12/12/16 16:30 119 30 128/58 97 12/12/16 16:00 118 12/12/16 16:00 98.6 118 30 125/58 99 12/12/16 16:00 40 12/12/16 15:30 109 12/12/16 15:30 109 30 114/59 98 12/12/16 15:00 109 27 121/59 98 12/12/16 15:00 109 12/12/16 14:30 111 12/12/16 14:30 111 29 118/58 99 12/12/16 14:25 98.6 112 25 123/58 98 12/12/16 14:05 98.6 114 26 123/59 97 12/12/16 14:03 97 35 12/12/16 14:00 114 34 123/59 97 12/12/16 14:00 114 12/12/16 13:30 115 33 126/63 97 12/12/16 13:30 115 12/12/16 13:00 110 12/12/16 13:00 110 27 119/58 98 12/12/16 12/12/16 12/13/16 15:00 23:00 07:00 Intake Total 777 ml 1254 ml 1259 ml Output Total 1520 ml 685 ml 1520.0 ml Balance -743 ml 569 ml -261.0 ml IV Total 103 ml 367 ml 343 ml Tube Feeding 298 ml 286 ml Albumin 100 ml 100 ml Packed Cells 574 ml 129 ml Other 360 ml 630 ml Output Urine Total 1200 ml 250 ml 925 ml Stool Total 250 ml 410 ml 550 ml Tube Feeding Residual Discard 0 ml 0 ml Chest Tube Drainage Total 70 ml 25 ml 45 ml Laboratory Tests Test 12/12/16 12/13/16 04:28 05:51 White Blood Count 7.7 TH/MM3 9.5 TH/MM3 Red Blood Count 2.24 MIL/MM3 2.57 MIL/MM3 Hemoglobin 6.9 GM/DL 7.9 GM/DL Hematocrit 20.7 % 23.3 % Mean Corpuscular Volume 92.2 FL 90.6 FL Mean Corpuscular Hemoglobin 30.7 PG 30.6 PG Mean Corpuscular Hemoglobin 33.3 % 33.7 % Concent Red Cell Distribution Width 16.3 % 17.2 % Platelet Count 195 TH/MM3 155 TH/MM3 Mean Platelet Volume 7.4 FL 7.8 FL Laboratory Tests Test 12/11/16 12/12/16 12/12/16 12/13/16 17:25 04:28 19:09 05:51 Potassium Level 2.9 MEQ/L 4.0 MEQ/L 3.7 MEQ/L 3.3 MEQ/L Sodium Level 149 MEQ/L 150 MEQ/L 149 MEQ/L Chloride Level 121 MEQ/L 123 MEQ/L 120 MEQ/L Carbon Dioxide Level 20.0 MEQ/L 17.0 MEQ/L 19.9 MEQ/L Anion Gap 8 MEQ/L 10 MEQ/L 9 MEQ/L Blood Urea Nitrogen 60 MG/DL 64 MG/DL 67 MG/DL Creatinine 2.62 MG/DL 2.79 MG/DL 3.02 MG/DL Estimat Glomerular Filtration 26 ML/MIN 24 ML/MIN 22 ML/MIN Rate Random Glucose 101 MG/DL 128 MG/DL 124 MG/DL Calcium Level 7.9 MG/DL 8.0 MG/DL 7.9 MG/DL B-Type Natriuretic Peptide 2946 PG/ML Microbiology Date/Time Procedure Status Source Growth 12/10/16 13:40 Gram Stain - Final Complete Sputum Endotracheal 12/10/16 13:40 Sputum Culture - Final Complete Pseudomonas Aeruginosa 12/10/16 18:30 Urine Culture - Final Complete Urine Catheterized Urine NO GROWTH IN 48 HOURS. 12/10/16 18:30 Cancelled Urine Catheterized Urine 12/12/16 18:25 Urine Culture Received Urine Catheterized Urine Pending IMAGING: Chest X-Ray 12/12/16 0600 Signed Impressions: Service Date/Time: November 03:53 - CONCLUSION: 1. Increased airspace consolidation in the right lower lung zone. The left lung base opacity is stable. 2. Right chest tube is present and no pneumothorax is visualized. Agustin Bonner MD PHYSICAL EXAMINATION GENERAL: On the vent. Awake. HEENT: No icterus. Oropharynx: No lesions. Mucosa moist. NECK: Supple without adenopathy. LUNGS: Bilateral rhonchi. HEART: Normal S1-S2 with 2/6 IRMA at LSB. ABDOMEN: Less distended. Soft. Decreased bowel sounds. Unable to appreciate tenderness. EXTREMITIES: No clubbing or cyanosis, 1+ edema. SKIN: No rash. NEURO: Non focal. PSYCH: unable to assess. IMPRESSION 1. Endocarditis Aortic valve Staph aureus (MSSA). 2. Cavitary pulmonary lesions. Embolic./ SOCK LINER ischemic lesions suggesting embolic lesions. 3. Pneumonia/parapneumonic effusion- MSSA. - pseudomonas pneumonia. VAP. Sensitive. 4. Leukocytosis secondary to infection. WBC now normal. 5. Recurrent fever. ? source. 6. Vent dependent respiratory failure. 7. Ileus. 8. Acute renal failure. RECOMMENDATIONS 1. Continue IV Ancef for endocarditis. Dose decreased because of renal function. 2. Continue Diflucan. 3. Continue PIP/Tazobactam. 4. Continue Levaquin. 5. Monitor temperature. 6. Monitor urine culture. Slava Garcia MD Dec 13, 2016 13:05
[2016-12-13] MEDS: FLUCONAZOLE 200 MG PREMIX BAG 100 ML IV SCH (14:54)
[2016-12-13] MEDS ORDERED: BUMETANIDE INJ 100 ML IV SCH (16:00)
--- NOTE | 2016-12-13 16:35 | HHI.PR ---
Subjective Subjective Notes Resting in bed Family visiting at bedside Nods no when asked about abdominal pain Objective Vitals/I&O Vital Signs Date Time Temp Pulse Resp B/P Pulse Ox O2 Delivery O2 Flow Rate FiO2 12/13/16 16:22 100 35 12/13/16 14:00 82 12/13/16 12:00 100.2 22 84/47 12/13/16 07:00 Mechanical Ventilator 12/10/16 13:29 5.00 Labs Laboratory Tests Test 12/12/16 12/12/16 12/13/16 18:25 19:09 05:51 Urine Color YELLOW Urine Turbidity CLOUDY Urine pH 5.5 Urine Specific [place] 1.021 Urine Protein 100 Urine Glucose (UA) NEG Urine Ketones NEG Urine Occult Blood MOD Urine Nitrite NEG Urine Bilirubin NEG Urine Urobilinogen LESS THAN 2.0 Urine Leukocyte Esterase MOD Urine RBC 16 Urine WBC 34 Urine Amorphous Sediment RARE Urine Bacteria RARE Urine Hyaline Casts 4 Urine Granular Casts 39 Microscopic Urinalysis Comment CATH-CULTURE IND Sodium Level 150 149 Potassium Level 3.7 3.3 Chloride Level 123 120 Carbon Dioxide Level 17.0 19.9 Anion Gap 10 9 Blood Urea Nitrogen 64 67 Creatinine 2.79 3.02 Estimat Glomerular Filtration 24 22 Rate Random Glucose 128 124 Calcium Level 8.0 7.9 White Blood Count 9.5 Red Blood Count 2.57 Hemoglobin 7.9 Hematocrit 23.3 Mean Corpuscular Volume 90.6 Mean Corpuscular Hemoglobin 30.6 Mean Corpuscular Hemoglobin 33.7 Concent Red Cell Distribution Width 17.2 Platelet Count 155 Mean Platelet Volume 7.8 Date/Time Procedure Status Source Growth 12/12/16 18:25 Urine Culture - Preliminary Resulted Urine Catheterized Urine RESULTS PENDING 12/10/16 18:30 Urine Culture - Final Complete Urine Catheterized Urine NO GROWTH IN 48 HOURS. 12/10/16 18:30 Cancelled Urine Catheterized Urine 12/10/16 13:40 Gram Stain - Final Complete Sputum Endotracheal 12/10/16 13:40 Sputum Culture - Final Complete Pseudomonas Aeruginosa 12/09/16 09:54 Aerobic Blood Culture - Preliminary Resulted Blood Peripheral NO GROWTH IN 4 DAYS 12/09/16 09:54 Anaerobic Blood Culture - Preliminary Resulted Blood Peripheral NO GROWTH IN 4 DAYS Radiology Last Impressions Renal Ultrasound 12/07/16 0000 Signed Impressions: Service Date/Time: Wednesday, December 07, 2016 10:08 - CONCLUSION: Unremarkable renal ultrasound and a trace of ascites identified. Reba Banerjee MD Abdomen X-Ray 12/07/16 0000 Signed Impressions: Service Date/Time: Wednesday, December 07, 2016 16:16 - CONCLUSION: Limited study but no free air seen. Jhoan Bishop MD Chest X-Ray 12/06/16 0600 Signed Impressions: Service Date/Time: Tuesday, December 06, 2016 04:02 - CONCLUSION: 1. Cardiomegaly 2. Patchy alveolar disease characteristic of edema or pneumonia. There has been no significant change when compared to the prior exam. Toribio Magana MD Small Bowel X-Ray 12/06/16 0000 Signed Impressions: Service Date/Time: Tuesday, December 06, 2016 16:55 - CONCLUSION: Distended loops of small bowel could be due to significant ileus versus partial small bowel obstruction and contrast gets into the colon at 13 hours. Reba Banerjee MD Abdomen Ultrasound 12/06/16 0000 Signed Impressions: Service Date/Time: Tuesday, December 06, 2016 11:31 - CONCLUSION: No free fluid is present. Agustin Bonner MD Abdomen/Pelvis CT 12/05/16 0000 Signed Impressions: Service Date/Time: November 23:28 - CONCLUSION: 1. Small bowel dilatation which may related to ileus or obstruction. The findings are similar to the prior exam. 2. Moderate ascites 3. Small pneumoperitoneum is present. Toribio Magana MD Brain MRI 11/21/16 0000 Signed Impressions: Service Date/Time: November 12:33 - CONCLUSION: Multifocal areas of restricted diffusion primarily in the periventricular and subcortical white matter bilaterally but also cortically based in the right frontal lobe. Findings likely represent ischemic change likely related to septic emboli given the patient's clinical history. No abscess or enhancing lesion is visualized. Agutsin Bonner MD Head CT 11/17/16 0600 Signed Impressions: Service Date/Time: Thursday, November 17, 2016 10:39 - CONCLUSION: No significant change has occurred. Deven Urrutia MD Chest CT 11/16/16 0000 Signed Impressions: Service Date/Time: Wednesday, November 16, 2016 20:36 - CONCLUSION: 1. New right chest tube in the posterior superior right pleural space. There continues to be a moderate right pleural effusion primarily seen at the base. Some degree of loculation may be present inferiorly. The effusion does not layer posteriorly. There are scattered punctate areas of air within the pleural space inferiorly on the right. There is a solitary small area of air within the mild left pleural effusion. 2. Numerous irregular masses seen throughout both lungs some which are cavitary. These are nonspecific. Inflammatory masses needs be suspected. The multiplicity raises possibility of septic emboli. Agustin Price MD CT Angiography 11/13/16 1328 Signed Impressions: Service Date/Time: Sunday, November 13, 2016 15:50 - CONCLUSION: 1. Multiple cavitary lesions within both lungs with the largest measuring 9.5 cm in the right upper lobe. Differential diagnosis includes infectious and neoplastic etiologies. 2. Moderate sized right pleural effusion with adjacent compressive atelectasis and/or infiltrate. 3. Cardiomegaly and coronary artery calcifications. 4. Subcarinal mediastinal lymphadenopathy. 5. Degenerative changes throughout the thoracic spine. Jed Ponce MD Cardiovascular: Regular Lungs: Clear Abdomen: Other (distended; no abdominal pain; exam unchanged; PEG in place ) Extremities: No edema Narrative Exam trach in place A/P Problem List: (1) S/P percutaneous endoscopic gastrostomy (PEG) tube placement Assessment and Plan 56 year old male with multiple medical problems; s/p trach; now with distended abdomen and CT showing free air -Stable -Continue to follow abdominal exam; exam currently benign -Tolerating TF at 40 cc/hr (goal) -General Surgery will follow peripherally; please call with questions Attending Statement patient seen at bedside no abdominal pain will follow prn Attestation The exam, history, and the medical decision-making described in the above note were completed with the assistance of the mid-level provider. I reviewed and agree with the findings presented. I attest that I had a [id number] encounter with the patient on the same day, and personally performed and documented my assessment and findings in the medical record. Carey Barnett Dec 13, 2016 16:35 Ravi Baker MD Dec 20, 2016 15:39
[2016-12-13 16:52] LABS: BICARBONATE 17.7 MEQ/L (21.0-32.0); POTASSIUM 3.4 MEQ/L (3.5-5.1)
--- NOTE | 2016-12-13 18:48 | HHI.PR ---
Subjective Remarks Patient was intubated last night for acute hypoxemic resp failure and a right chest tube was placed for right hydroPTX in addition patient underwent bronch with BAL ( mucous plugs b/l suctioned to clear). MRI brain multifocal area of septic emboli/infarct Tolerates TF Started Oxycodone and Seraquel had trach tube changed Tolerates CPAP Objective Vital Signs Vital Signs Date Time Temp Pulse Resp B/P Pulse Ox O2 Delivery O2 Flow Rate FiO2 12/13/16 18:00 87 12/13/16 17:00 86 17 93/50 100 12/13/16 16:22 100 35 12/13/16 16:00 85 12/13/16 16:00 100.6 85 18 93/55 100 12/13/16 16:00 35 12/13/16 15:00 85 19 91/54 100 12/13/16 14:00 82 22 83/45 100 12/13/16 14:00 82 12/13/16 13:00 84 21 84/46 100 12/13/16 12:00 85 12/13/16 12:00 35 12/13/16 12:00 100.2 85 22 84/47 100 12/13/16 11:41 100 35 12/13/16 11:00 87 19 91/55 100 12/13/16 10:00 86 22 92/55 99 12/13/16 10:00 86 12/13/16 09:00 86 23 93/50 100 12/13/16 08:50 99 35 12/13/16 08:00 35 12/13/16 08:00 100.8 88 23 94/50 100 12/13/16 08:00 86 12/13/16 07:00 100 Mechanical Ventilator 35 12/13/16 07:00 88 23 94/50 100 12/13/16 06:30 87 22 95/51 100 12/13/16 06:00 91 23 99/51 100 12/13/16 06:00 91 12/13/16 05:30 93 25 114/57 99 12/13/16 05:00 91 26 109/56 99 12/13/16 04:30 93 26 108/54 98 12/13/16 04:00 94 26 108/54 98 12/13/16 04:00 94 12/13/16 04:00 35 12/13/16 04:00 98.8 94 25 108/54 99 12/13/16 03:52 98 35 12/13/16 03:30 97 24 113/57 98 12/13/16 03:00 93 25 110/58 98 12/13/16 02:30 91 26 107/55 100 12/13/16 02:15 25 12/13/16 02:00 92 26 109/55 99 12/13/16 02:00 92 12/13/16 01:30 91 25 106/55 99 12/13/16 01:00 99 35 12/13/16 01:00 91 27 106/58 99 12/13/16 00:30 91 26 107/58 99 12/13/16 00:00 93 28 108/55 99 12/13/16 00:00 99.4 93 26 108/55 99 12/13/16 00:00 93 12/13/16 00:00 35 12/13/16 00:00 93 28 108/55 99 12/12/16 23:30 94 28 105/59 92 12/12/16 23:00 96 30 106/56 97 12/12/16 22:43 99 35 12/12/16 22:30 92 25 106/56 99 12/12/16 22:00 97 29 110/55 99 12/12/16 22:00 97 12/12/16 21:30 97 33 110/55 99 12/12/16 21:00 97 30 112/56 99 12/12/16 20:30 95 34 110/55 98 12/12/16 20:00 99 12/12/16 20:00 99 28 111/56 99 12/12/16 20:00 35 12/12/16 20:00 99.9 99 24 111/56 99 12/12/16 20:00 99 Mechanical Ventilator 35 I/O 12/12/16 12/12/16 12/12/16 12/13/16 12/13/16 12/13/16 07:00 15:00 23:00 07:00 15:00 23:00 Intake Total 1047 ml 777 ml 1254 ml 1259 ml 1091 ml Output Total 785 ml 1520 ml 685 ml 1520.0 ml 960 ml Balance 262 ml -743 ml 569 ml -261.0 ml 131 ml Intake Oral 0 ml IV Total 502 ml 103 ml 367 ml 343 ml 245 ml Tube Feeding 285 ml 298 ml 286 ml 246 ml Albumin 100 ml 100 ml Packed Cells 574 ml 129 ml Other 260 ml 360 ml 630 ml 600 ml Output Urine Total 325 ml 1200 ml 250 ml 925 ml 500 ml Stool Total 400 ml 250 ml 410 ml 550 ml 450 ml Tube Feeding Residual Discard 0 ml 0 ml 0 ml Chest Tube Drainage Total 60 ml 70 ml 25 ml 45 ml 10 ml Result Diagram: 12/13/16 0551 12/13/16 1558 Objective Remarks GENERAL: Patient is 56 yo critically ill intubated , sedated and on pressors. SKIN: Warm and dry. HEAD: Normocephalic. EYES: No scleral icterus. No injection or drainage. NECK: Supple, trachea midline. No JVD or lymphadenopathy. CARDIOVASCULAR: Regular rate and rhythm without murmurs, gallops, or rubs. RESPIRATORY: Breath sounds equal bilaterally. No accessory muscle use. GASTROINTESTINAL: Abdomen soft, non-tender, distended., tympanic MUSCULOSKELETAL: No cyanosis, or edema. Neuro: Sedated and intubated A/P Assessment and Plan 1VDRF 2)Septic shock 3)Staph Aureus bacteremia 4)Empyema 6)Endocarditis involving AV 7)Leucocytosis 8)Cavitary pulm masses 2nd staph Aureus 9)Right hydroPTX PLAN: Continue with vent support keep sat >92% Bronchodilators, ICU vent bundle, on stress dose steroids- Abx per ID Chest tube to suction Sedation with oxycodone and Seraquel CPAP TF 40 cc/hr Emmett Bolton MD Dec 13, 2016 18:48
[2016-12-13] MEDS: MELATONIN 5 MG TAB PO SCH (21:08)
--- NOTE | 2016-12-13 21:47 | HHI.NPPN ---
Subjective General Problems: Anemia, Edema, Hypotension Renal Failure: Acute History of Present Illness This is 56 years old male, with Resp. failure, post tracheostomy, develop MENDY. Additional Remarks Patient remain on the vent. and lethargic, clinically same. Objective Data Data 12/12/16 12/13/16 19:00 07:00 Intake Total 1006 ml 2284 ml Output Total 1520 ml 2205.0 ml Balance -514 ml 79.0 ml IV Total 103 ml 710 ml Tube Feeding 584 ml Albumin 200 ml Packed Cells 703 ml Other 990 ml Output Urine Total 1200 ml 1175 ml Stool Total 250 ml 960 ml Tube Feeding Residual Discard 0 ml Chest Tube Drainage Total 70 ml 70 ml Vital Signs Date Time Temp Pulse Resp B/P Pulse Ox O2 Delivery O2 Flow Rate FiO2 12/13/16 20:46 35 12/13/16 20:40 99 35 12/13/16 18:00 87 12/13/16 17:00 86 17 93/50 100 12/13/16 16:22 100 35 12/13/16 16:00 85 12/13/16 16:00 100.6 85 18 93/55 100 12/13/16 16:00 35 12/13/16 15:00 85 19 91/54 100 12/13/16 14:00 82 22 83/45 100 12/13/16 14:00 82 12/13/16 13:00 84 21 84/46 100 12/13/16 12:00 85 12/13/16 12:00 35 12/13/16 12:00 100.2 85 22 84/47 100 12/13/16 11:41 100 35 12/13/16 11:00 87 19 91/55 100 12/13/16 10:00 86 22 92/55 99 12/13/16 10:00 86 12/13/16 09:00 86 23 93/50 100 12/13/16 08:50 99 35 12/13/16 08:00 35 12/13/16 08:00 100.8 88 23 94/50 100 12/13/16 08:00 86 12/13/16 07:00 100 Mechanical Ventilator 35 12/13/16 07:00 88 23 94/50 100 12/13/16 06:30 87 22 95/51 100 12/13/16 06:00 91 23 99/51 100 12/13/16 06:00 91 12/13/16 05:30 93 25 114/57 99 12/13/16 05:00 91 26 109/56 99 12/13/16 04:30 93 26 108/54 98 12/13/16 04:00 94 26 108/54 98 12/13/16 04:00 94 12/13/16 04:00 35 12/13/16 04:00 98.8 94 25 108/54 99 12/13/16 03:52 98 35 12/13/16 03:30 97 24 113/57 98 12/13/16 03:00 93 25 110/58 98 12/13/16 02:30 91 26 107/55 100 12/13/16 02:15 25 12/13/16 02:00 92 26 109/55 99 12/13/16 02:00 92 12/13/16 01:30 91 25 106/55 99 12/13/16 01:00 99 35 12/13/16 01:00 91 27 106/58 99 12/13/16 00:30 91 26 107/58 99 12/13/16 00:00 93 28 108/55 99 12/13/16 00:00 99.4 93 26 108/55 99 12/13/16 00:00 93 12/13/16 00:00 35 12/13/16 00:00 93 28 108/55 99 12/12/16 23:30 94 28 105/59 92 12/12/16 23:00 96 30 106/56 97 12/12/16 22:43 99 35 12/12/16 22:30 92 25 106/56 99 12/12/16 22:00 97 29 110/55 99 12/12/16 22:00 97 -: 12/13/16 0551 12/13/16 1558 Physical Exam General Appearance Remarks On the vent. with Trach. Eyes Eye Exam: Pupils Equal Throat Throat Exam: Oral Mucosa [place] & Moist Neck Neck Exam: Neck Supple Pulmonary Resp Exam: No Distress, Crackles, Rhonchi, Decreased Bases, Diminished Breath Sounds Cardiology CV Exam: Tachycardia Gastrointestinal/Abdomen GI Exam: Soft, Non-Tender, Bowel Sounds Present, Distended Extremeties Extremities Exam: Moderate Edema, Pitting Edema, Dependent Edema Neurologic Neuro Exam: Obtunded, Unresponsive Assessment/Plan Assessment Summary: MENDY/Acute Renal Failure, Hypotension Problem List: (1) Leukocytosis (2) Acute respiratory insufficiency (3) Sepsis (4) multiple pulmonary cavitary lesions (5) severe encephalopathy, likely due to sepsis and multiple embolic infarctions (6) Acute kidney injury Plan Creatinine has been increasing. Bumex infusion decreased. Urine out put is better. BP is stable. Urine Na. is normal, most likely has ATN causing MENDY. Continue antibiotics. Palliative care following. Follow the urine out put and BMP. Problem Qualifiers (1) Sepsis: Qualified Code: A41.9 - Sepsis, due to unspecified organism Otoniel Mireles MD Dec 13, 2016 21:47
[2016-12-14] VITALS (41 sets, daily range): BP systolic 91–107; BP diastolic 50–59; PULSE 81–92; RESP 19–33; TEMP 98.6–100.1; O2SAT 97–100
[2016-12-14] MEDS: PIPERACIL-TAZO 3.375 GM PREMIX 50 ML IV SCH ×4 (02:12→22:01)
[2016-12-14] MEDS: CHLORHEXIDINE GLUCONATE 2 % 1 PACK (2 CLOTHS) TOP SCH (04:00)
[2016-12-14] MEDS: INSULIN ASPART SUPPLEMENTAL SCALE SQ SCH ×4 (05:00→23:00)
[2016-12-14] MEDS: QUEtiapine FUMARATE 100 MG TAB PO SCH ×3 (05:36→22:02)
[2016-12-14] MEDS: PROPRANOLOL HCL 20 MG TAB PO SCH ×3 (05:36→17:46)
[2016-12-14] MEDS: ARTIFICIAL TEARS OPTH SOLN 15 ML BTL EACH EYE SCH ×3 (05:37→22:03)
[2016-12-14] MEDS: oxyCODONE HCL ORAL CONC 20 MG/ML SYRINGE PO SCH ×5 (05:37→22:02)
[2016-12-14 06:31] LABS: AUTOMATED NEUTROPHIL # 6.8 TH/MM3 (1.8-7.7); BASOPHIL % 0.5 % (0.0-2.0); EOSINOPHIL % 0.3 % (0.0-4.0); HEMATOCRIT 23.6 % (39.0-51.0); HEMO FLAGS DIFF FINAL; LYMPH % 24.6 % (9.0-44.0); LYMPHOCYTE # 2.4 TH/MM3 (1.0-4.8); MEAN CELL VOLUME 91.2 FL (80.0-100.0); MEAN CORPUSCULAR HEMOGLOBIN 30.6 PG (27.0-34.0); MEAN CORPUSCULAR HGB CONC 33.5 % (32.0-36.0); MONO % 5.3 % (0.0-8.0); NEUT % 69.3 % (16.0-70.0); PLATELET COUNT 138 TH/MM3 (150-450); RED BLOOD COUNT 2.58 MIL/MM3 (4.50-5.90); RED CELL DISTRIBUTION WIDTH 17.6 % (11.6-17.2); WHITE BLOOD COUNT 9.8 TH/MM3 (4.0-11.0)
[2016-12-14 06:35] LABS: BICARBONATE 19.1 MEQ/L (21.0-32.0); POTASSIUM 3.3 MEQ/L (3.5-5.1)
[2016-12-14] MEDS: FREE WATER G-TUBE SCH ×4 (08:00→20:00)
[2016-12-14] MEDS: ALBUMIN HUMAN 25% 25 GM/100 ML BAGP IV SCH ×3 (08:21→17:45)
[2016-12-14] MEDS: FOLIC ACID 1 MG TAB PO SCH (08:22)
[2016-12-14] MEDS: MULTIVITAMIN TAB PO SCH (08:22)
[2016-12-14] MEDS: PANTOPRAZOLE SODIUM 40 MG VIAL IV SCH ×2 (08:22→22:03)
[2016-12-14] MEDS: THIAMINE HCL 100 MG TAB PO SCH (08:22)
[2016-12-14] MEDS: SODIUM CHLORIDE 0.9% FLUSH 10 ML FLUSH IV FLUSH SCH ×2 (08:23→22:03)
[2016-12-14] MEDS: SODIUM CHLORIDE 0.9% FLUSH 10 ML FLUSH IVF SCH (08:23)
[2016-12-14] MEDS: CHLORHEXIDINE 0.12% (ORAL KIT) 15 ML CUP MT SCH ×2 (08:24→22:04)
--- NOTE | 2016-12-14 09:05 | HHI.CCPN ---
Subjective Remarks/Hospital Course 56-year-old male is brought to the emergency department by EMS for evaluation of generalized weakness, confusion for about 2 weeks, and also increasing shortness of breath. His oxygen saturation was 88% on room air. EMS administered breathing treatments and Solu-Medrol 125 mg 1 and placed him on nasal cannula. Patient states that he had been sick for almost 10 days, but he is a poor historian. He had a productive cough, but reports no hematemesis or weight loss. He states that it was his neighbor who made him called EMS. He has no past medical history and last time had seen a doctor was about 15 years ago. He denies any fevers but reports some night sweats and chills. He was tachycardic with a heart rate of 115 bpm, had severe leukocytosis with a white count of 35,000 with 91% neutrophils. CMP shows hyponatremia with a sodium of 126. Lactic acid is 2.4. His Chest x-ray shows large 7.7 x 7.8 cm cavitary right midlung lesion with associated right-sided pleural effusion. Subcentimeter left mid lung pulmonary nodules. Patient received 1 L normal saline bolus and Zosyn 4.5 g and Zithromax 500 mg IV and was placed on TB/ respiratory isolation. He has been being in care home 2 years ago increasing his risk of tuberculosis. CT pulmonary angiogram negative for PE but showed multiple cavitary lesions within both lungs with the largest measuring 9.5 cm in the right upper lobe. Moderate size right pleural effusion. I evaluated the patient in the emergency department. Patient appears critically ill in moderate distress mildly tachypneic, sweating. I performed a bedside ultrasound which showed a right effusion which is large. The thoracentesis was performed and 1 L of cloudy dark pleural fluid was removed. Patient will be continued on Zosyn and Levaquin and vancomycin. ID consulted and I discussed with Dr. Steele-she recommended no empiric treatments for TB. 11/14/16: Patient seen and examined complaints of severe epigastric and periumbilical abdominal pain. Patient remains oriented to person. His white count is slightly improved from 35,000-28,9000. Na improved to 136. I have ordered a STAT CT abd/pelvis with IV contrast. Chest x-ray shows reaccumulation of right pleural effusion-fluid chemistries are pending but cell count indicates at least a parapneumonic effusion and patient will need a pigtail chest tube 11/15: Patient pulled his right-sided pigtail catheter out overnight last night. Currently nasal cannula in no acute distress. Afebrile. Continues to have a leukocytosis. 11/16: Currently on room air. Hold out his IVs reportedly overnight last night. Requesting diet. Awake and alert and following commands. 11/17: Intubated yesterday due to acute hypercapnic respiratory failure. Hypoxic post intubation requiring right chest tube placement, bronchoscopy and Flolan. Bronchoscopy revealed thick mucous plugging at bilateral right and left mainstem which were clear. Improved oxygenation over the past 12 hours. Afebrile. 11/18 Patient remains sedated with Diprivan, Fentanyl and intubated. On Vasopressin and Neosyn 120 mics. 11/19 Patient is sedated with Diprivan, Fentanyl and intubated. Afebrile. Off all pressors. Afebrile. WBC is trending down 30 today from 50. 11/20: Remains severely septic and encephalopathic even though weaned off all pressors. White count still elevated but trending down. Became extremely tachycardic and tachypneic on lowering sedation. We'll check MRI of the brain to rule out embolic infarct. Family at the bedside updated 11/21 Remains heavily sedated, remains encephalopathic. MRI brain is pending. Family is at bedside. Remains critically with resp failure severe from endocarditis, now unable to wean off the ventilator due to severe metabolic encephalopathy 11/22 No events overnight. Sedated with Diprivan, fentanyl and intubated. Afebrile. MRI brain yesterday showed ischemic changes likely related to septic emboli. 11/23: Patient remains encephalopathic, severe hyponatremia possible contributing , Na is 157 today. Currently on Precedex and fentanyl. CXR shows increasing L effusion 11/24: Patient more awake today. Follows Commands but did not tolerate spontaneous breathing trials. Had left pigtail chest tube placed yesterday 1.6 L transudative fluid removal since placement 11/25 Patient is sedated with Diprivan, Fentanyl and intubated. T:99.9 11/26 No events overnight. Sedated and intubated. Patient was on CPAP x 3 hrs yesterday then became tachypneic. 11/27: Resting in bed comfortably on Diprivan at 40 mics grams per kilogram per minute and fentanyl drip at 200 an hour. Tolerated PSV trial 2 hours yesterday before becoming tachypnea. Positive BM via fecal containment device 1100 cc. Yesterday according to RN was following commands. 11/28: Currently afebrile. Tolerating PSV trials 1.5 hours today for became tachypneic. Awake and alert and follows commands. Neurologically intact. Positive BM. 11/29: Tmax 99.6. Status post percutaneous tracheostomy secondary to failed extubation trials. Plan for PEG tube today. Awake and interactive the ventilator on sedation vacation. 11/30: DrAzael currently 98.8. Status post percutaneous tracheostomy Dr. Baker yesterday and PEG tube placement by Dr. Figueroa. Tube feeds will be resumed today. Otherwise appears comfortable ventilator. Arousable and follows commands on sedation vacation. 12/01: Patient becomes tachypneic on attempted CPAP, even with high pressure support. I will add by mouth Ativan to reduce IV sedation requirement. Decreasing chest tube output 12/02: Patient failed spontaneous breathing trial clinically today secondary to severe tachypnea and tachycardia. His spiking fever upto 103. Panculture blood , dose of vancomycin given. Most likely patient is getting new sepsis 12/03: Continued to spike fever up to 102. Dose of vancomycin was given yesterday. Patient tolerated CPAP for 3 hours today, remains encephalopathic though. 12/04: Patient more awake alert follows commands, tolerated CPAP but did not tolerate TPs. Abdomen significantly distended, KUB shows ileus. Continues to spike high fever. Diflucan vancomycin added by ID and continue Ancef 12/05: Abdomen remains distended, CT yesterday show intra abdominal free air. Unclear whether related to PEG or perforation. D/W with Dr. Baker, will get repeat CT with oral contrast today. Zosyn added by ID 12/06 Patient is sedated with Fentanyl and Diprivan. CT abdomen/pelvis yesterday sowed small bowel dilation ( ileus vs obstruction) 12/07 Patient remains intubated on low dose Diprivan and Fentanyl infusion however he is awake. Tolerated CPAP all day yesterday T: 100.0 last night. SB series showed distended loops of small bowel. Renal function worse today with Cr: 2.4 from 1.96. 12/08 No events overnight. On Diprivan and Fentanyl drip for sedation. T:99.9 last night. 12/09 Patient remains on ventilator via trach, sedated with Diprivan and Fentanyl. T: 101.0 last night. s/p transfusion 1unit PRBC yesterday. 12/10 Patient is sedate with Dip, Fentanyl and intubated. T: 101.6 at 8 am. 12/11: patient remains on sedation for his agitated delirium. remains febrile today. 25kg up from admission and Cr uptrending. bedside critical care echo demonstrates 2cm ivc without respiratory variation, RVSP 48 mmHg, mild RV dilation, normal LV function. by physical exam, grossly volume overloaded. Subjective 12/12: patient less agitated. following commands. still did not diurese well on intermittent bumex. BNP severely elevated. on my examination today patient with leaking trach despite multiple inflation of balloon. trach swapped out over cook exchange catheter with good seal for new trach (8.0 shiley cuffed). not making improvements. 12/13 No events overnight. On Bumex drip 1mg/hr, T: 100.8. Off sedation. 12/14 Patient is on ventilator via trach. T;100.7 last night. On Bumex drip 0.5mg /hr. Renal function worse Cr: 3.67 from 3.20 with UOP 1150ml in 24 hrs. Objective Vital Signs Date Time Temp Pulse Resp B/P Pulse Ox O2 Delivery O2 Flow Rate FiO2 12/14/16 08:37 35 12/14/16 08:36 100 12/14/16 07:00 83 20 98/52 12/14/16 04:00 99.0 12/13/16 20:00 Bi-Pap 12/10/16 13:29 5.00 Intake and Output 12/13/16 12/13/16 12/14/16 08:00 16:00 00:00 Intake Total 1259 ml 1091 ml 1213 ml Output Total 1520.0 ml 960 ml 945 ml Balance -261.0 ml 131 ml 268 ml Result Diagram: 12/14/16 0552 12/14/16 0552 Other Results Laboratory Tests Test 12/13/16 12/14/16 15:58 05:52 Sodium Level 146 MEQ/L 146 MEQ/L Potassium Level 3.4 MEQ/L 3.3 MEQ/L Chloride Level 117 MEQ/L 116 MEQ/L Carbon Dioxide Level 17.7 MEQ/L 19.1 MEQ/L Anion Gap 11 MEQ/L 11 MEQ/L Blood Urea Nitrogen 73 MG/DL 73 MG/DL Creatinine 3.20 MG/DL 3.67 MG/DL Estimat Glomerular Filtration 20 ML/MIN 17 ML/MIN Rate Random Glucose 116 MG/DL 115 MG/DL Calcium Level 7.9 MG/DL 7.9 MG/DL White Blood Count 9.8 TH/MM3 Red Blood Count 2.58 MIL/MM3 Hemoglobin 7.9 GM/DL Hematocrit 23.6 % Mean Corpuscular Volume 91.2 FL Mean Corpuscular Hemoglobin 30.6 PG Mean Corpuscular Hemoglobin 33.5 % Concent Red Cell Distribution Width 17.6 % Platelet Count 138 TH/MM3 Mean Platelet Volume 8.3 FL Neutrophils (%) (Auto) 69.3 % Lymphocytes (%) (Auto) 24.6 % Monocytes (%) (Auto) 5.3 % Eosinophils (%) (Auto) 0.3 % Basophils (%) (Auto) 0.5 % Neutrophils # (Auto) 6.8 TH/MM3 Lymphocytes # (Auto) 2.4 TH/MM3 Monocytes # (Auto) 0.5 TH/MM3 Eosinophils # (Auto) 0.0 TH/MM3 Basophils # (Auto) 0.0 TH/MM3 CBC Comment DIFF FINAL Differential Comment Imaging Last Impressions Chest X-Ray 12/12/16 0600 Signed Impressions: Service Date/Time: November 03:53 - CONCLUSION: 1. Increased airspace consolidation in the right lower lung zone. The left lung base opacity is stable. 2. Right chest tube is present and no pneumothorax is visualized. Agustin Bonner MD Chest Tube Insertion 12/09/16 0000 Signed Impressions: Service Date/Time: Friday, December 09, 2016 14:53 - CONCLUSION: Uncomplicated chest tube placement as above. Agustin Pérez MD Renal Ultrasound 12/07/16 0000 Signed Impressions: Service Date/Time: Wednesday, December 07, 2016 10:08 - CONCLUSION: Unremarkable renal ultrasound and a trace of ascites identified. Reba Banerjee MD Abdomen X-Ray 12/07/16 0000 Signed Impressions: Service Date/Time: Wednesday, December 07, 2016 16:16 - CONCLUSION: Limited study but no free air seen. Jhoan Bishop MD Small Bowel X-Ray 12/06/16 0000 Signed Impressions: Service Date/Time: Tuesday, December 06, 2016 16:55 - CONCLUSION: Distended loops of small bowel could be due to significant ileus versus partial small bowel obstruction and contrast gets into the colon at 13 hours. Reba Banerjee MD Abdomen Ultrasound 12/06/16 0000 Signed Impressions: Service Date/Time: Tuesday, December 06, 2016 11:31 - CONCLUSION: No free fluid is present. Agustin Bonner MD Abdomen/Pelvis CT 12/05/16 0000 Signed Impressions: Service Date/Time: November 23:28 - CONCLUSION: 1. Small bowel dilatation which may related to ileus or obstruction. The findings are similar to the prior exam. 2. Moderate ascites 3. Small pneumoperitoneum is present. Toribio Magana MD Brain MRI 11/21/16 0000 Signed Impressions: Service Date/Time: November 12:33 - CONCLUSION: Multifocal areas of restricted diffusion primarily in the periventricular and subcortical white matter bilaterally but also cortically based in the right frontal lobe. Findings likely represent ischemic change likely related to septic emboli given the patient's clinical history. No abscess or enhancing lesion is visualized. Agustin Bonner MD Head CT 11/17/16 0600 Signed Impressions: Service Date/Time: Thursday, November 17, 2016 10:39 - CONCLUSION: No significant change has occurred. Deven Urrutia MD Chest CT 11/16/16 0000 Signed Impressions: Service Date/Time: Wednesday, November 16, 2016 20:36 - CONCLUSION: 1. New right chest tube in the posterior superior right pleural space. There continues to be a moderate right pleural effusion primarily seen at the base. Some degree of loculation may be present inferiorly. The effusion does not layer posteriorly. There are scattered punctate areas of air within the pleural space inferiorly on the right. There is a solitary small area of air within the mild left pleural effusion. 2. Numerous irregular masses seen throughout both lungs some which are cavitary. These are nonspecific. Inflammatory masses needs be suspected. The multiplicity raises possibility of septic emboli. Agustin Price MD CT Angiography 11/13/16 1328 Signed Impressions: Service Date/Time: Sunday, November 13, 2016 15:50 - CONCLUSION: 1. Multiple cavitary lesions within both lungs with the largest measuring 9.5 cm in the right upper lobe. Differential diagnosis includes infectious and neoplastic etiologies. 2. Moderate sized right pleural effusion with adjacent compressive atelectasis and/or infiltrate. 3. Cardiomegaly and coronary artery calcifications. 4. Subcarinal mediastinal lymphadenopathy. 5. Degenerative changes throughout the thoracic spine. Jed Ponce MD Objective Remarks GENERAL: 56-year-old male, critically ill currently on ventilator via tracheostomy, SKIN: Warm and dry. Scattered skin lesions erythematous predominantly left lower extremity HEAD: Normocephalic and atraumatic. EYES: No injection, drainage. Pupils equally round and reactive around 3 mm ENT: No nasal drainage noted. Oropharynx is clear. NECK: trachea midline. Tracheostomy is clean dry and intact CARDIOVASCULAR: slightly tachycardic rate, regular rhythm. sinus by tele. RESPIRATORY: PSV 10/5/40%. equal chest rise GASTROINTESTINAL: Abdomen is distended, tympanic, no guarding MUSCULOSKELETAL: +3 pitting edema bilateral lower extremities. Multiple erythematous raised lesions on bilateral lower extremity predominantly left lower leg NEUROLOGICAL: Patient is awake on the ventilator. CAM-. 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 25kg up from admission, CHF refractory to diuretics. likely this will not get better given his pathology, but he is seeing end-organ damage from this. will start bumex drip for added forced diuresis. multiorgan failure secondary to infective endocarditis is unlikely to overall improve, and his prognosis is poor. I do not think he will survive this hospitalization. Very complex medical patient with multiple medical problems. Off pathway. NEURO/PSYCH: Metabolic encephalopathy Septic brain emboli Agitated Delirium off sedation. scheduled oxycodone 10mg po q4h per tube. Seroquel 100mg po q8hr melatonin 5mg po qHS Haldol 5mg iv q4h prn for breakthrough agitation EEG 11/24: Generalized encephalopathy without any significant epileptic activity. MRI brain 11/21: Ischemic changes throughout white matter likely related to septic emboli. Neuro Dr. Hernandez and has followed intermittently Thiamine 100mg PO daily RESP: Bilateral cavitary lung lesions/most likely cavitating pneumonia from staph aureus Chronic respiratory failure Large right loculated pleural effusion/empyema Left pleural effusion Right pneumothorax Daily SBTs. start trach collar trials daily. Continue with vent support keep sat >90%. check CXR/ ABG DuoNebs every 4 hours with albuterol nebs every 2 hours. Vent bundle. Status post tracheostomy by Dr. Baker 11/29 A second Right sided 16 M[place]gasque chest tube placed by IR 12/09 Right-sided chest tube #28 Monegasque, Left-sided chest tube #10 M[place]gasque- placed 11/24/16-removed 12/02 Right thoracentesis with 1 L cloudy yellow fluid removed, fluid cell studies WBC 2,600, Patient status post pigtail catheter placement 11/14, 445 cc prior pulled out . Evaluated by Dr. Samuels/CT surgery. Per his recommendations, No indication for decortication at this time CV: Aortic valve endocarditis/large vegetation Moderate Aortic Insufficiency Congestive Heart Failure secondary to valvulopathy Sinus tachycardia Atrial fibrillation with RVR - resolved, now normal sinus rhythm Elevated troponin - likely rate dependent - On propranolol 30mg po q6h. , Monitor HR and BP keep MAP>65mmHg - 2-D echocardiogram revealed EF 55-60%. Moderate AR. CHANDNI revealed 17 mm x 17 millimeter mobile mass on aortic valve. - limited echo 11/22 Persistent vegetation - CT surgery. Recommendations no intervention at this time GI: Intra peritoneal free air. (Related to PEG or perforation). Ileus Hypoalbuminemia Moderate protein calorie malnutrition/acute Continue with tube feeds- Nepro@40ml/hr. GI is following 12/06 SB series w/ Gastrografin showed distended SB loops- ileus vs partial bowel obstruction 12/[address] abdomen/pelvis- small pneumoperitoneum, small bowel dilation ( ileus vs obstruction) small pneumoperitoneum likely related to previous PEG tube placement, PEG tube to suction. GI/Surgery is following- Dr. Baker. CT abdomen 12/04 show intra peritoneal free air. ? related to PEG or perforation. IV Protonix for GI prophylaxis. Reglan, MiraLAX twice a day for bowel regimen Prev CT of the abdomen pelvis with IV contrast revealed possible ileus., Gastric contraction at gastric duodenal junction. 2 mm renal cyst. s/p PEG placement 11/29/16 : Acute kidney injury- persistent, not improving - may have component of congestive renal disease/cardiorenal syndrome from severe AI. Monitor renal function, I/O's, electrolytes replacement as needed. On Bumex 0.5mg/ hr., Albumin 25gms Q8 Cr:3.67 today from 3.2 UOP: 1150ml in 24 hrs On free water to 300mL q4h.monitor sodium level, Renal US: unremarkable, renal is following- Dr. Mireles ID: Severe sepsis Persistent fever Multilobar cavitating pneumonia secondary staph aureus Staph aureus empyema Aortic valve endocarditis - Continue with abx per ID ( Zosyn, Levaquin, Diflucan, Vanco, Ancef for endocarditis)- monitor for signs of infections ( Fever, WBC). -Check BC x 2 sets, sputum cx, Pertinent cultures 11/13 - blood cultures 2 - staph aureus 11/13 and 11/14- pleural fluid- staph aureus 11/14- sputum- staph aureus 11/15 - blood cultures 2 -staph aureus 11/16 - Bronch samples: Staph Aureus 11/16 Sputum: Staph Aureus 11/19 - blood cultures 2 - no growth 11/23 - pleural fluid - no growth 11/24 - blood cultures 2 - no growth 11/25 - UA - negative 11/25 - sputum no growth 12/02, 12/07: Urine C tropicalis 12/07, 12/10: Sputum: Pseudomonas 12/07, 12/09 BC: NGTD HEME: Normocytic anemia - Monitor CBC,s/p transfusion 1u PRBC 12/08, 2units PRBC given 12/12 ENDO: SSI with accuchecks for glycemic control TSH 0.6. PROPH: - Bilateral lower extremity SCDs. Heparin SQ on hold for anemia requiring blood transfusion IV Protonix for prophylaxis LINES: - peripheral IVs Palliative care is following Level 3 Noam Calhoun MD Dec 14, 2016 09:05
--- NOTE | 2016-12-14 10:00 | RADRPT ---
EXAM DATE/TIME: 12/14/2016 09:11 [facility] COMPARISON: CHEST SINGLE AP, December 12, 2016, 3:53. INDICATIONS : Respiratory failure. MEDICAL HISTORY : Sepsis. SURGICAL HISTORY : PEG tube. ENCOUNTER: Subsequent ACUITY: 1 month PAIN SCORE: Non-responsive. LOCATION: Bilateral chest FINDINGS: Large-bore chest tube is in the apex on the right. Small-bore chest tube is in the base on the right . The heart remains enlarged. Moderate interstitial edema is present, stable in the interval. Tracheostomy tube is in good position. CONCLUSION: 1. No interval change. 2. There is no pneumothorax. gR Padilla MD FACR on December 14, 2016 at 9:56 Board Certified Radiologist. This report was verified electronically.
[2016-12-14 11:18] LABS: BLOOD GAS BASE EXCESS -9.1 mmol/L (-2-2); BLOOD GAS CARBOXYHEMOGLOBIN 1.8 % (0-4); BLOOD GAS HCO3 16 mmol/L (22-26); BLOOD GAS METHEMOGLOBIN 1.2 % (0-2); BLOOD GAS O2 HGB SATURATION 96 % (90-100); BLOOD GAS OXYGEN CONTENT 10.1 Vol % (12.0-20.0); BLOOD GAS PCO2 35 mmHg (38-42); BLOOD GAS PO2 119 mmHg (61-120); BLOOD GAS TOTAL HGB 7.3 G/DL (12.0-16.0); CRITICAL VALUE NO; DRAW SITE LT RADIAL; FIO2 35 %; NUMBER OF ARTERIAL PUNCTURES 1; OXYGEN DEVICE VENTILATOR; STAT NO; TEMP CORR TO 98.6; ULNAR PULSE PRESENT; VENT SETTINGS CPAP+5/PSV15
--- NOTE | 2016-12-14 12:32 | HHI.NPPN ---
Subjective General Problems: Anemia, Edema, Hypotension Renal Failure: Acute History of Present Illness This is 56 years old male, with Resp. failure, post tracheostomy, develop MENDY. Additional Remarks Patient remain on the vent. and lethargic, clinically same. Objective Data Data 12/13/16 12/14/16 19:00 07:00 Intake Total 1091 ml 2405 ml Output Total 960 ml 1490 ml Balance 131 ml 915 ml IV Total 245 ml 696 ml Tube Feeding 246 ml 749 ml Other 600 ml 960 ml Output Urine Total 500 ml 650 ml Stool Total 450 ml 820 ml Tube Feeding Residual Discard 0 ml Chest Tube Drainage Total 10 ml 20 ml Vital Signs Date Time Temp Pulse Resp B/P Pulse Ox O2 Delivery O2 Flow Rate FiO2 12/14/16 08:37 35 12/14/16 08:36 100 35 12/14/16 08:33 100 35 12/14/16 07:00 100 Mechanical Ventilator 35 12/14/16 07:00 83 20 98/52 100 12/14/16 06:00 90 23 107/56 100 12/14/16 06:00 90 12/14/16 05:00 87 21 102/58 99 12/14/16 04:30 87 21 99 12/14/16 04:15 86 33 100 12/14/16 04:14 99 35 12/14/16 04:00 35 12/14/16 04:00 86 20 101/56 99 12/14/16 04:00 86 12/14/16 04:00 86 20 101/56 99 12/14/16 04:00 99.0 86 28 101/56 99 12/14/16 03:45 81 27 98 12/14/16 03:30 82 27 97 12/14/16 03:15 82 28 98 12/14/16 03:00 83 25 98/52 98 12/14/16 02:45 83 23 98 12/14/16 02:30 84 19 99 12/14/16 02:15 85 19 98 12/14/16 02:00 84 19 99/54 99 12/14/16 02:00 84 12/14/16 01:45 84 19 99 12/14/16 01:30 84 20 99 12/14/16 01:15 85 20 99 12/14/16 01:00 85 20 100/54 99 12/14/16 00:59 18 12/14/16 00:45 84 21 99 12/14/16 00:30 85 20 99 12/14/16 00:15 87 20 99 12/14/16 00:15 99 35 12/14/16 00:00 35 12/14/16 00:00 89 20 106/59 99 12/14/16 00:00 86 12/14/16 00:00 99.0 86 20 106/59 99 12/14/16 00:00 89 20 106/59 99 12/13/16 23:00 85 21 105/56 98 12/13/16 22:00 86 19 102/50 99 12/13/16 22:00 86 12/13/16 21:00 87 20 100/55 99 12/13/16 20:46 35 12/13/16 20:45 35 12/13/16 20:40 99 35 12/13/16 20:00 35 12/13/16 20:00 100.7 91 21 102/51 100 12/13/16 20:00 91 12/13/16 20:00 91 23 102/51 100 12/13/16 20:00 100 Bi-Pap 35 12/13/16 18:00 87 12/13/16 17:00 86 17 93/50 100 12/13/16 16:22 100 35 12/13/16 16:00 85 12/13/16 16:00 100.6 85 18 93/55 100 12/13/16 16:00 35 12/13/16 15:00 85 19 91/54 100 12/13/16 14:00 82 22 83/45 100 12/13/16 14:00 82 12/13/16 13:00 84 21 84/46 100 -: 12/14/16 0552 12/14/16 0552 Physical Exam Eyes Eye Exam: Pupils Equal Throat Throat Exam: Oral Mucosa [place] & Moist Neck Neck Exam: Neck Supple Pulmonary Resp Exam: No Distress, Crackles, Rhonchi, Decreased Bases, Diminished Breath Sounds Cardiology CV Exam: Tachycardia Gastrointestinal/Abdomen GI Exam: Soft, Non-Tender, Bowel Sounds Present, Distended Extremeties Extremities Exam: Moderate Edema, Pitting Edema, Dependent Edema Neurologic Neuro Exam: Obtunded, Unresponsive Assessment/Plan Assessment Summary: MENDY/Acute Renal Failure, Hypotension Problem List: (1) Leukocytosis (2) Acute respiratory insufficiency (3) Sepsis (4) multiple pulmonary cavitary lesions (5) severe encephalopathy, likely due to sepsis and multiple embolic infarctions (6) Acute kidney injury 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 Bumex infusion decreased. Urine out put is better. BP is stable. Urine Na. is normal, most likely has ATN causing MENDY. Continue antibiotics. On Bumex 0.5mg/ hr., Albumin 25gms Q8 Cr:3.67 today from 3.2 UOP: 1150ml in 24 hrs Palliative care following. Follow the urine out put and BMP. Problem Qualifiers (1) Sepsis: Qualified Code: A41.9 - Sepsis, due to unspecified organism Trevor Willard MD Dec 14, 2016 12:32
[2016-12-14] MEDS ORDERED: POTASSIUM CHLOR 40 MEQ PREMIX 100 ML IV ONE (13:00)
[2016-12-14] MEDS: LEVOFLOXACIN 250 MG PREMIX INJ 50 ML IV SCH (13:09)
[2016-12-14] MEDS: ACETAMINOPHEN 325 MG TAB PO PRN (13:32)
[2016-12-14] MEDS: POTASSIUM CHLOR 20 MEQ PREMIX 100 ML IV SCH ×2 (13:35→15:30)
[2016-12-14] MEDS: FLUCONAZOLE 200 MG PREMIX BAG 100 ML IV SCH (13:36)
--- NOTE | 2016-12-14 14:43 | HHI.PR ---
Subjective Remarks Patient was intubated last night for acute hypoxemic resp failure and a right chest tube was placed for right hydroPTX in addition patient underwent bronch with BAL ( mucous plugs b/l suctioned to clear). MRI brain multifocal area of septic emboli/infarct Tolerates TF on Oxycodone and Seraquel Tolerates CPAP has worsening renal functions and Acidosis Objective Vital Signs Vital Signs Date Time Temp Pulse Resp B/P Pulse Ox O2 Delivery O2 Flow Rate FiO2 12/14/16 14:00 92 26 106/57 100 12/14/16 13:00 84 22 97/51 100 12/14/16 12:51 100 35 12/14/16 12:00 100.1 84 24 95/54 100 12/14/16 11:00 83 19 96/52 100 12/14/16 10:00 82 19 96/53 99 12/14/16 09:00 82 22 98/56 100 12/14/16 08:37 35 12/14/16 08:36 100 35 12/14/16 08:33 100 35 12/14/16 08:00 99.2 83 21 100/54 100 12/14/16 08:00 35 12/14/16 07:00 100 Mechanical Ventilator 35 12/14/16 07:00 83 20 98/52 100 12/14/16 06:00 90 23 107/56 100 12/14/16 06:00 90 12/14/16 05:00 87 21 102/58 99 12/14/16 04:30 87 21 99 12/14/16 04:15 86 33 100 12/14/16 04:14 99 35 12/14/16 04:00 35 12/14/16 04:00 86 20 101/56 99 12/14/16 04:00 86 12/14/16 04:00 86 20 101/56 99 12/14/16 04:00 99.0 86 28 101/56 99 12/14/16 03:45 81 27 98 12/14/16 03:30 82 27 97 12/14/16 03:15 82 28 98 12/14/16 03:00 83 25 98/52 98 12/14/16 02:45 83 23 98 12/14/16 02:30 84 19 99 12/14/16 02:15 85 19 98 12/14/16 02:00 84 19 99/54 99 12/14/16 02:00 84 12/14/16 01:45 84 19 99 12/14/16 01:30 84 20 99 12/14/16 01:15 85 20 99 12/14/16 01:00 85 20 100/54 99 12/14/16 00:59 18 12/14/16 00:45 84 21 99 12/14/16 00:30 85 20 99 12/14/16 00:15 87 20 99 12/14/16 00:15 99 35 12/14/16 00:00 35 12/14/16 00:00 89 20 106/59 99 12/14/16 00:00 86 12/14/16 00:00 99.0 86 20 106/59 99 12/14/16 00:00 89 20 106/59 99 12/13/16 23:00 85 21 105/56 98 12/13/16 22:00 86 19 102/50 99 12/13/16 22:00 86 12/13/16 21:00 87 20 100/55 99 12/13/16 20:46 35 12/13/16 20:45 35 12/13/16 20:40 99 35 12/13/16 20:00 35 12/13/16 20:00 100.7 91 21 102/51 100 12/13/16 20:00 91 12/13/16 20:00 91 23 102/51 100 12/13/16 20:00 100 Bi-Pap 35 12/13/16 18:00 87 12/13/16 17:00 86 17 93/50 100 12/13/16 16:22 100 35 12/13/16 16:00 85 12/13/16 16:00 100.6 85 18 93/55 100 12/13/16 16:00 35 12/13/16 15:00 85 19 91/54 100 I/O 12/13/16 12/13/16 12/13/16 12/14/16 12/14/16 12/14/16 07:00 15:00 23:00 07:00 15:00 23:00 Intake Total 1259 ml 1091 ml 1213 ml 1192 ml Output Total 1520.0 ml 960 ml 945 ml 545 ml Balance -261.0 ml 131 ml 268 ml 647 ml IV Total 343 ml 245 ml 515 ml 181 ml Tube Feeding 286 ml 246 ml 368 ml 381 ml Other 630 ml 600 ml 330 ml 630 ml Output Urine Total 925 ml 500 ml 375 ml 275 ml Stool Total 550 ml 450 ml 560 ml 260 ml Tube Feeding Residual Discard 0 ml 0 ml Chest Tube Drainage Total 45 ml 10 ml 10 ml 10 ml Result Diagram: 12/14/16 0552 12/14/16 0552 Objective Remarks GENERAL: Patient is 56 yo critically ill intubated , sedated and on pressors. SKIN: Warm and dry. HEAD: Normocephalic. EYES: No scleral icterus. No injection or drainage. NECK: Supple, trachea midline. No JVD or lymphadenopathy. CARDIOVASCULAR: Regular rate and rhythm without murmurs, gallops, or rubs. RESPIRATORY: Breath sounds equal bilaterally. No accessory muscle use. GASTROINTESTINAL: Abdomen soft, non-tender, distended., tympanic MUSCULOSKELETAL: No cyanosis, or edema. Neuro: Sedated and intubated A/P Assessment and Plan 1VDRF 2)Septic shock 3)Staph Aureus bacteremia 4)Empyema 6)Endocarditis involving AV 7)Leucocytosis 8)Cavitary pulm masses 2nd staph Aureus 9)Right hydroPTX PLAN: Continue with vent support keep sat >92% Bronchodilators, ICU vent bundle, on stress dose steroids- Abx per ID Chest tube to suction Sedation with oxycodone and Seraquel CPAP TF 40 cc/hr Renal following Emmett Bolton MD Dec 14, 2016 14:43
[2016-12-14] MEDS: MELATONIN 5 MG TAB PO SCH (22:02)
[2016-12-15] VITALS (27 sets, daily range): BP systolic 84–110; BP diastolic 50–59; PULSE 84–92; RESP 18–26; TEMP 98.6–99.5; O2SAT 99–100
[2016-12-15] MEDS: PIPERACIL-TAZO 3.375 GM PREMIX 50 ML IV SCH ×4 (01:05→19:33)
[2016-12-15] MEDS: ALBUMIN HUMAN 25% 25 GM/100 ML BAGP IV SCH ×3 (01:05→17:48)
[2016-12-15] MEDS: PROPRANOLOL HCL 20 MG TAB PO SCH ×4 (01:05→17:48)
[2016-12-15] MEDS: oxyCODONE HCL ORAL CONC 20 MG/ML SYRINGE PO SCH ×6 (01:06→20:53)
[2016-12-15] MEDS: CHLORHEXIDINE GLUCONATE 2 % 1 PACK (2 CLOTHS) TOP SCH (03:42)
[2016-12-15] MEDS: FREE WATER G-TUBE SCH ×6 (04:00→19:33)
[2016-12-15] MEDS: INSULIN ASPART SUPPLEMENTAL SCALE SQ SCH ×4 (05:00→22:46)
[2016-12-15] MEDS: QUEtiapine FUMARATE 100 MG TAB PO SCH ×3 (05:07→20:52)
[2016-12-15] MEDS: ARTIFICIAL TEARS OPTH SOLN 15 ML BTL EACH EYE SCH ×3 (05:08→20:53)
[2016-12-15 06:07] LABS: AUTOMATED NEUTROPHIL # 7.2 TH/MM3 (1.8-7.7); BASOPHIL % 0.3 % (0.0-2.0); EOSINOPHIL % 0.4 % (0.0-4.0); HEMATOCRIT 22.5 % (39.0-51.0); HEMO FLAGS DIFF FINAL; LYMPH % 23.4 % (9.0-44.0); LYMPHOCYTE # 2.4 TH/MM3 (1.0-4.8); MEAN CELL VOLUME 92.7 FL (80.0-100.0); MEAN CORPUSCULAR HEMOGLOBIN 29.8 PG (27.0-34.0); MEAN CORPUSCULAR HGB CONC 32.2 % (32.0-36.0); MONO % 4.6 % (0.0-8.0); NEUT % 71.3 % (16.0-70.0); PLATELET COUNT 129 TH/MM3 (150-450); RED BLOOD COUNT 2.43 MIL/MM3 (4.50-5.90); RED CELL DISTRIBUTION WIDTH 17.5 % (11.6-17.2); WHITE BLOOD COUNT 10.1 TH/MM3 (4.0-11.0)
[2016-12-15 06:24] LABS: BICARBONATE 17.1 MEQ/L (21.0-32.0); POTASSIUM 3.6 MEQ/L (3.5-5.1)
[2016-12-15] MEDS: THIAMINE HCL 100 MG TAB PO SCH (07:47)
[2016-12-15] MEDS: MULTIVITAMIN TAB PO SCH (07:47)
[2016-12-15] MEDS: PANTOPRAZOLE SODIUM 40 MG VIAL IV SCH ×2 (07:47→20:52)
[2016-12-15] MEDS: CHLORHEXIDINE 0.12% (ORAL KIT) 15 ML CUP MT SCH ×2 (07:48→19:34)
[2016-12-15] MEDS: FOLIC ACID 1 MG TAB PO SCH (07:50)
[2016-12-15] MEDS: SODIUM CHLORIDE 0.9% FLUSH 10 ML FLUSH IV FLUSH SCH ×2 (07:50→20:53)
[2016-12-15] MEDS: SODIUM CHLORIDE 0.9% FLUSH 10 ML FLUSH IVF SCH (07:50)
--- NOTE | 2016-12-15 08:37 | HHI.CCPN ---
Subjective Remarks/Hospital Course 56-year-old male is brought to the emergency department by EMS for evaluation of generalized weakness, confusion for about 2 weeks, and also increasing shortness of breath. His oxygen saturation was 88% on room air. EMS administered breathing treatments and Solu-Medrol 125 mg 1 and placed him on nasal cannula. Patient states that he had been sick for almost 10 days, but he is a poor historian. He had a productive cough, but reports no hematemesis or weight loss. He states that it was his neighbor who made him called EMS. He has no past medical history and last time had seen a doctor was about 15 years ago. He denies any fevers but reports some night sweats and chills. He was tachycardic with a heart rate of 115 bpm, had severe leukocytosis with a white count of 35,000 with 91% neutrophils. CMP shows hyponatremia with a sodium of 126. Lactic acid is 2.4. His Chest x-ray shows large 7.7 x 7.8 cm cavitary right midlung lesion with associated right-sided pleural effusion. Subcentimeter left mid lung pulmonary nodules. Patient received 1 L normal saline bolus and Zosyn 4.5 g and Zithromax 500 mg IV and was placed on TB/ respiratory isolation. He has been being in [facility] 2 years ago increasing his risk of tuberculosis. CT pulmonary angiogram negative for PE but showed multiple cavitary lesions within both lungs with the largest measuring 9.5 cm in the right upper lobe. Moderate size right pleural effusion. I evaluated the patient in the emergency department. Patient appears critically ill in moderate distress mildly tachypneic, sweating. I performed a bedside ultrasound which showed a right effusion which is large. The thoracentesis was performed and 1 L of cloudy dark pleural fluid was removed. Patient will be continued on Zosyn and Levaquin and vancomycin. ID consulted and I discussed with Dr. Steele-she recommended no empiric treatments for TB. 11/14/16: Patient seen and examined complaints of severe epigastric and periumbilical abdominal pain. Patient remains oriented to person. His white count is slightly improved from 35,000-28,9000. Na improved to 136. I have ordered a STAT CT abd/pelvis with IV contrast. Chest x-ray shows reaccumulation of right pleural effusion-fluid chemistries are pending but cell count indicates at least a parapneumonic effusion and patient will need a pigtail chest tube 11/15: Patient pulled his right-sided pigtail catheter out overnight last night. Currently nasal cannula in no acute distress. Afebrile. Continues to have a leukocytosis. 11/16: Currently on room air. Hold out his IVs reportedly overnight last night. Requesting diet. Awake and alert and following commands. 11/17: Intubated yesterday due to acute hypercapnic respiratory failure. Hypoxic post intubation requiring right chest tube placement, bronchoscopy and Flolan. Bronchoscopy revealed thick mucous plugging at bilateral right and left mainstem which were clear. Improved oxygenation over the past 12 hours. Afebrile. 11/18 Patient remains sedated with Diprivan, Fentanyl and intubated. On Vasopressin and Neosyn 120 mics. 11/19 Patient is sedated with Diprivan, Fentanyl and intubated. Afebrile. Off all pressors. Afebrile. WBC is trending down 30 today from 50. 11/20: Remains severely septic and encephalopathic even though weaned off all pressors. White count still elevated but trending down. Became extremely tachycardic and tachypneic on lowering sedation. We'll check MRI of the brain to rule out embolic infarct. Family at the bedside updated 11/21 Remains heavily sedated, remains encephalopathic. MRI brain is pending. Family is at bedside. Remains critically with resp failure severe from endocarditis, now unable to wean off the ventilator due to severe metabolic encephalopathy 11/22 No events overnight. Sedated with Diprivan, fentanyl and intubated. Afebrile. MRI brain yesterday showed ischemic changes likely related to septic emboli. 11/23: Patient remains encephalopathic, severe hyponatremia possible contributing , Na is 157 today. Currently on Precedex and fentanyl. CXR shows increasing L effusion 11/24: Patient more awake today. Follows Commands but did not tolerate spontaneous breathing trials. Had left pigtail chest tube placed yesterday 1.6 L transudative fluid removal since placement 11/25 Patient is sedated with Diprivan, Fentanyl and intubated. T:99.9 11/26 No events overnight. Sedated and intubated. Patient was on CPAP x 3 hrs yesterday then became tachypneic. 11/27: Resting in bed comfortably on Diprivan at 40 mics grams per kilogram per minute and fentanyl drip at 200 an hour. Tolerated PSV trial 2 hours yesterday before becoming tachypnea. Positive BM via fecal containment device 1100 cc. Yesterday according to RN was following commands. 11/28: Currently afebrile. Tolerating PSV trials 1.5 hours today for became tachypneic. Awake and alert and follows commands. Neurologically intact. Positive BM. 11/29: Tmax 99.6. Status post percutaneous tracheostomy secondary to failed extubation trials. Plan for PEG tube today. Awake and interactive the ventilator on sedation vacation. 11/30: DrAzael currently 98.8. Status post percutaneous tracheostomy Dr. Baker yesterday and PEG tube placement by Dr. Figueora. Tube feeds will be resumed today. Otherwise appears comfortable ventilator. Arousable and follows commands on sedation vacation. 12/01: Patient becomes tachypneic on attempted CPAP, even with high pressure support. I will add by mouth Ativan to reduce IV sedation requirement. Decreasing chest tube output 12/02: Patient failed spontaneous breathing trial clinically today secondary to severe tachypnea and tachycardia. His spiking fever upto 103. Panculture blood , dose of vancomycin given. Most likely patient is getting new sepsis 12/03: Continued to spike fever up to 102. Dose of vancomycin was given yesterday. Patient tolerated CPAP for 3 hours today, remains encephalopathic though. 12/04: Patient more awake alert follows commands, tolerated CPAP but did not tolerate TPs. Abdomen significantly distended, KUB shows ileus. Continues to spike high fever. Diflucan vancomycin added by ID and continue Ancef 12/05: Abdomen remains distended, CT yesterday show intra abdominal free air. Unclear whether related to PEG or perforation. D/W with Dr. Baker, will get repeat CT with oral contrast today. Zosyn added by ID 12/06 Patient is sedated with Fentanyl and Diprivan. CT abdomen/pelvis yesterday sowed small bowel dilation ( ileus vs obstruction) 12/07 Patient remains intubated on low dose Diprivan and Fentanyl infusion however he is awake. Tolerated CPAP all day yesterday T: 100.0 last night. SB series showed distended loops of small bowel. Renal function worse today with Cr: 2.4 from 1.96. 12/08 No events overnight. On Diprivan and Fentanyl drip for sedation. T:99.9 last night. 12/09 Patient remains on ventilator via trach, sedated with Diprivan and Fentanyl. T: 101.0 last night. s/p transfusion 1unit PRBC yesterday. 12/10 Patient is sedate with Dip, Fentanyl and intubated. T: 101.6 at 8 am. 12/11: patient remains on sedation for his agitated delirium. remains febrile today. 25kg up from admission and Cr uptrending. bedside critical care echo demonstrates 2cm ivc without respiratory variation, RVSP 48 mmHg, mild RV dilation, normal LV function. by physical exam, grossly volume overloaded. Subjective 12/12: patient less agitated. following commands. still did not diurese well on intermittent bumex. BNP severely elevated. on my examination today patient with leaking trach despite multiple inflation of balloon. trach swapped out over cook exchange catheter with good seal for new trach (8.0 shiley cuffed). not making improvements. 12/13 No events overnight. On Bumex drip 1mg/hr, T: 100.8. Off sedation. 12/14 Patient is on ventilator via trach. T;100.7 last night. On Bumex drip 0.5mg /hr. Renal function worse Cr: 3.67 from 3.20 with UOP 1150ml in 24 hrs. 12/15 Patient remains on Bumex drip 0.5mg/hr however renal function is worsening with Cr: 4.27 from 3.67 and UOP: 400ml in 24 hrs. Afebrile. Tolerated CPAP all day yesterday. Objective Vital Signs Date Time Temp Pulse Resp B/P Pulse Ox O2 Delivery O2 Flow Rate FiO2 12/15/16 08:11 35 12/15/16 08:09 100 12/15/16 06:07 20 12/15/16 06:00 85 12/15/16 04:00 98.6 96/51 12/14/16 19:00 Mechanical Ventilator Intake and Output 12/14/16 12/14/16 12/15/16 08:00 16:00 00:00 Intake Total 1192 ml 1260 ml 1235 ml Output Total 545 ml 375 ml 145 ml Balance 647 ml 885 ml 1090 ml Result Diagram: 12/15/16 0538 12/15/16 0535 Other Results Laboratory Tests Test 12/14/16 12/15/16 12/15/16 11:12 05:35 05:38 Blood Gas Puncture Site LT RADIAL Blood Gas Patient Temperature 98.6 Blood Gas HCO3 16 mmol/L Blood Gas Base Excess -9.1 mmol/L Blood Gas Oxygen Saturation 96 % Arterial Blood pH 7.29 Arterial Blood Partial 35 mmHg Pressure CO2 Arterial Blood Partial 119 mmHg Pressure O2 Arterial Blood Oxygen Content 10.1 Vol % Arterial Blood 1.8 % Carboxyhemoglobin Arterial Blood Methemoglobin 1.2 % Blood Gas Hemoglobin 7.3 G/DL Oxygen Delivery Device VENTILATOR Blood Gas Ventilator Setting CPAP+5/PSV15 Blood Gas Inspired Oxygen 35 % Sodium Level 144 MEQ/L Potassium Level 3.6 MEQ/L Chloride Level 114 MEQ/L Carbon Dioxide Level 17.1 MEQ/L Anion Gap 13 MEQ/L Blood Urea Nitrogen 80 MG/DL Creatinine 4.27 MG/DL Estimat Glomerular Filtration 15 ML/MIN Rate Random Glucose 111 MG/DL Calcium Level 7.8 MG/DL White Blood Count 10.1 TH/MM3 Red Blood Count 2.43 MIL/MM3 Hemoglobin 7.2 GM/DL Hematocrit 22.5 % Mean Corpuscular Volume 92.7 FL Mean Corpuscular Hemoglobin 29.8 PG Mean Corpuscular Hemoglobin 32.2 % Concent Red Cell Distribution Width 17.5 % Platelet Count 129 TH/MM3 Mean Platelet Volume 8.2 FL Neutrophils (%) (Auto) 71.3 % Lymphocytes (%) (Auto) 23.4 % Monocytes (%) (Auto) 4.6 % Eosinophils (%) (Auto) 0.4 % Basophils (%) (Auto) 0.3 % Neutrophils # (Auto) 7.2 TH/MM3 Lymphocytes # (Auto) 2.4 TH/MM3 Monocytes # (Auto) 0.5 TH/MM3 Eosinophils # (Auto) 0.0 TH/MM3 Basophils # (Auto) 0.0 TH/MM3 CBC Comment DIFF FINAL Differential Comment Imaging Last Impressions Chest X-Ray 12/14/16 0000 Signed Impressions: Service Date/Time: Wednesday, December 14, 2016 09:11 - CONCLUSION: 1. No interval change. 2. There is no pneumothorax. Rg Padilla MD FACR Chest Tube Insertion 12/09/16 0000 Signed Impressions: Service Date/Time: Friday, December 09, 2016 14:53 - CONCLUSION: Uncomplicated chest tube placement as above. Agustin Pérez MD Renal Ultrasound 12/07/16 0000 Signed Impressions: Service Date/Time: Wednesday, December 07, 2016 10:08 - CONCLUSION: Unremarkable renal ultrasound and a trace of ascites identified. Reba Banerjee MD Abdomen X-Ray 12/07/16 0000 Signed Impressions: Service Date/Time: Wednesday, December 07, 2016 16:16 - CONCLUSION: Limited study but no free air seen. Jhoan Bishop MD Small Bowel X-Ray 12/06/16 0000 Signed Impressions: Service Date/Time: Tuesday, December 06, 2016 16:55 - CONCLUSION: Distended loops of small bowel could be due to significant ileus versus partial small bowel obstruction and contrast gets into the colon at 13 hours. Reba Banerjee MD Abdomen Ultrasound 12/06/16 0000 Signed Impressions: Service Date/Time: Tuesday, December 06, 2016 11:31 - CONCLUSION: No free fluid is present. Agustin Bonner MD Abdomen/Pelvis CT 12/05/16 0000 Signed Impressions: Service Date/Time: November 23:28 - CONCLUSION: 1. Small bowel dilatation which may related to ileus or obstruction. The findings are similar to the prior exam. 2. Moderate ascites 3. Small pneumoperitoneum is present. Toribio Magana MD Brain MRI 11/21/16 0000 Signed Impressions: Service Date/Time: November 12:33 - CONCLUSION: Multifocal areas of restricted diffusion primarily in the periventricular and subcortical white matter bilaterally but also cortically based in the right frontal lobe. Findings likely represent ischemic change likely related to septic emboli given the patient's clinical history. No abscess or enhancing lesion is visualized. Agustin Bonner MD Head CT 11/17/16 0600 Signed Impressions: Service Date/Time: Thursday, November 17, 2016 10:39 - CONCLUSION: No significant change has occurred. Deven Urrutia MD Chest CT 11/16/16 0000 Signed Impressions: Service Date/Time: Wednesday, November 16, 2016 20:36 - CONCLUSION: 1. New right chest tube in the posterior superior right pleural space. There continues to be a moderate right pleural effusion primarily seen at the base. Some degree of loculation may be present inferiorly. The effusion does not layer posteriorly. There are scattered punctate areas of air within the pleural space inferiorly on the right. There is a solitary small area of air within the mild left pleural effusion. 2. Numerous irregular masses seen throughout both lungs some which are cavitary. These are nonspecific. Inflammatory masses needs be suspected. The multiplicity raises possibility of septic emboli. Agustin Price MD CT Angiography 11/13/16 1328 Signed Impressions: Service Date/Time: Sunday, November 13, 2016 15:50 - CONCLUSION: 1. Multiple cavitary lesions within both lungs with the largest measuring 9.5 cm in the right upper lobe. Differential diagnosis includes infectious and neoplastic etiologies. 2. Moderate sized right pleural effusion with adjacent compressive atelectasis and/or infiltrate. 3. Cardiomegaly and coronary artery calcifications. 4. Subcarinal mediastinal lymphadenopathy. 5. Degenerative changes throughout the thoracic spine. Jed Ponce MD Objective Remarks GENERAL: 56-year-old male, critically ill currently on ventilator via tracheostomy, SKIN: Warm and dry. Scattered skin lesions erythematous predominantly left lower extremity HEAD: Normocephalic and atraumatic. EYES: No injection, drainage. Pupils equally round and reactive around 3 mm ENT: No nasal drainage noted. Oropharynx is clear. NECK: trachea midline. Tracheostomy is clean dry and intact CARDIOVASCULAR: slightly tachycardic rate, regular rhythm. sinus by tele. RESPIRATORY: PSV 10/5/40%. equal chest rise GASTROINTESTINAL: Abdomen is distended, tympanic, no guarding MUSCULOSKELETAL: +3 pitting edema bilateral lower extremities. Multiple erythematous raised lesions on bilateral lower extremity predominantly left lower leg NEUROLOGICAL: Patient is awake on the ventilator. CAM-. RASS 0/-1 A/P Assessment and Plan NEURO/PSYCH: Metabolic encephalopathy Septic brain emboli Agitated Delirium off sedation. scheduled oxycodone 10mg po q4h per tube. Seroquel 100mg po q8hr melatonin 5mg po qHS Haldol 5mg iv q4h prn for breakthrough agitation EEG 11/24: Generalized encephalopathy without any significant epileptic activity. MRI brain 11/21: Ischemic changes throughout white matter likely related to septic emboli. Neuro Dr. Hernandez and has followed intermittently Thiamine 100mg PO daily RESP: Bilateral cavitary lung lesions/most likely cavitating pneumonia from staph aureus Chronic respiratory failure Large right loculated pleural effusion/empyema Left pleural effusion Right pneumothorax Daily SBTs. start trach collar trials daily. Continue with vent support keep sat >90%. DuoNebs every 4 hours with albuterol nebs every 2 hours. Vent bundle. Status post tracheostomy by Dr. Baker 11/29 A second Right sided 16 [place] chest tube placed by IR 12/09 Right-sided chest tube #28 [place], Left-sided chest tube #10 [place]- placed 11/24/16-removed 12/02 Right thoracentesis with 1 L cloudy yellow fluid removed, fluid cell studies WBC 2,600, Patient status post pigtail catheter placement 11/14, 445 cc prior pulled out . Evaluated by Dr. Samuels/CT surgery. Per his recommendations, No indication for decortication at this time CV: Aortic valve endocarditis/large vegetation Moderate Aortic Insufficiency Congestive Heart Failure secondary to valvulopathy Sinus tachycardia Atrial fibrillation with RVR - resolved, now normal sinus rhythm Elevated troponin - likely rate dependent - On propranolol 30mg po q6h. , Monitor HR and BP keep MAP>65mmHg - 2-D echocardiogram revealed EF 55-60%. Moderate AR. CHANDNI revealed 17 mm x 17 millimeter mobile mass on aortic valve. - limited echo 11/22 Persistent vegetation - CT surgery. Recommendations no intervention at this time GI: Intra peritoneal free air. (Related to PEG or perforation). Ileus Hypoalbuminemia Moderate protein calorie malnutrition/acute Continue with tube feeds- Nepro@40ml/hr. GI is following 12/06 SB series w/ Gastrografin showed distended SB loops- ileus vs partial bowel obstruction 12/[address] abdomen/pelvis- small pneumoperitoneum, small bowel dilation ( ileus vs obstruction) small pneumoperitoneum likely related to previous PEG tube placement, PEG tube to suction. GI/Surgery is following- Dr. Baker. CT abdomen 12/04 show intra peritoneal free air. ? related to PEG or perforation. IV Protonix for GI prophylaxis. Reglan, MiraLAX twice a day for bowel regimen Prev CT of the abdomen pelvis with IV contrast revealed possible ileus., Gastric contraction at gastric duodenal junction. 2 mm renal cyst. s/p PEG placement 11/29/16 : Acute kidney injury- persistent, not improving - may have component of congestive renal disease/cardiorenal syndrome from severe AI. Monitor renal function, I/O's, electrolytes replacement as needed. On Bumex 0.5mg/ hr., Albumin 25gms Q8 Cr: 4.27 today from 3.67 UOP: 400 ml in 24 hrs. Will d/c Bumex drip give NS 1 Liter bolus if no changes patient might need HD. Discussed with Renal- Dr. Willard. On free water to 300mL q4h.monitor sodium level, Renal US: unremarkable, renal is following- Dr. Mireles ID: Severe sepsis Persistent fever Multilobar cavitating pneumonia secondary staph aureus Staph aureus empyema Aortic valve endocarditis - Continue with abx per ID ( Zosyn, Levaquin, Diflucan, Vanco, Ancef for endocarditis)- monitor for signs of infections ( Fever, WBC). -Follow up on BC from 12/14, check sputum cx Pertinent cultures 11/13 - blood cultures 2 - staph aureus 11/13 and 11/14- pleural fluid- staph aureus 11/14- sputum- staph aureus 11/15 - blood cultures 2 -staph aureus 11/16 - Bronch samples: Staph Aureus 11/16 Sputum: Staph Aureus 11/19 - blood cultures 2 - no growth 11/23 - pleural fluid - no growth 11/24 - blood cultures 2 - no growth 11/25 - UA - negative 11/25 - sputum no growth 12/02, 12/07: Urine C tropicalis 12/07, 12/10: Sputum: Pseudomonas 12/07, 12/09 BC: NGTD 12/12 Urine: Yeast species HEME: Normocytic anemia - Monitor CBC,s/p transfusion 1u PRBC 12/08, 2units PRBC given 12/12 ENDO: SSI with accuchecks for glycemic control TSH 0.6. PROPH: - Bilateral lower extremity SCDs. Heparin SQ on hold for anemia requiring blood transfusion IV Protonix for prophylaxis LINES: - peripheral IVs Palliative care is following Level 3 Noam Calhoun MD Dec 15, 2016 08:37
[2016-12-15] MEDS ORDERED: SODIUM CHLOR 0.9% 1000 ML INJ 1,000 ML IV ONE (09:30)
[2016-12-15 11:18] LABS: INTERNATIONAL NORMALIZED RATIO 1.3 RATIO; PROTHROMBIN TIME - PATIENT 14.4 SEC (9.8-11.6)
--- NOTE | 2016-12-15 11:34 | HHI.NPPN ---
Subjective General Problems: Anemia, Edema, Hypotension Renal Failure: Acute History of Present Illness This is 56 years old male, with Resp. failure, post tracheostomy, develop MENDY. Additional Remarks Patient remain on the vent. and lethargic, clinically same. Objective Data Data 12/14/16 12/15/16 19:00 07:00 Intake Total 1260 ml 2616 ml Output Total 375 ml 455 ml Balance 885 ml 2161 ml IV Total 320 ml 932 ml Tube Feeding 340 ml 684 ml Albumin 100 ml Other 600 ml 900 ml Output Urine Total 175 ml 225 ml Stool Total 200 ml 200 ml Chest Tube Drainage Total 0 ml 30 ml Vital Signs Date Time Temp Pulse Resp B/P Pulse Ox O2 Delivery O2 Flow Rate FiO2 12/15/16 10:00 87 20 99/53 100 12/15/16 09:00 91 23 110/59 100 12/15/16 08:11 35 12/15/16 08:09 100 35 12/15/16 08:04 100 35 12/15/16 08:00 99.1 86 20 94/52 100 12/15/16 08:00 35 12/15/16 07:00 Mechanical Ventilator 12/15/16 06:07 20 12/15/16 06:00 85 12/15/16 04:34 99 35 12/15/16 04:00 35 12/15/16 04:00 98.6 85 20 96/51 99 12/15/16 04:00 85 12/15/16 02:00 88 12/15/16 01:41 100 35 12/15/16 00:11 100 35 12/15/16 00:00 88 12/15/16 00:00 99.4 88 21 92/54 100 12/15/16 00:00 35 12/14/16 22:00 85 12/14/16 21:01 100 35 12/14/16 20:00 35 12/14/16 20:00 84 12/14/16 20:00 98.6 84 20 91/54 100 12/14/16 19:00 99 Mechanical Ventilator 35 12/14/16 18:00 84 20 92/52 99 12/14/16 17:00 83 19 93/50 99 12/14/16 16:21 98 35 12/14/16 16:00 35 12/14/16 16:00 99.1 83 20 93/54 99 12/14/16 15:00 86 25 96/55 98 12/14/16 14:00 92 26 106/57 100 12/14/16 13:00 84 22 97/51 100 12/14/16 12:51 100 35 12/14/16 12:00 35 12/14/16 12:00 100.1 84 24 95/54 100 -: 12/15/16 0538 12/15/16 0535 Microbiology 12/14/16 Aerobic Blood Culture - Preliminary, Resulted NO GROWTH IN 1 DAY 12/14/16 Anaerobic Blood Culture - Preliminary, Resulted NO GROWTH IN 1 DAY 12/14/16 Aerobic Blood Culture - Preliminary, Resulted NO GROWTH IN 1 DAY 12/14/16 Anaerobic Blood Culture - Preliminary, Resulted NO GROWTH IN 1 DAY 12/15/16 Gram Stain, Received Pending 12/15/16 Sputum Culture, Received Pending Physical Exam Eyes Eye Exam: Pupils Equal Throat Throat Exam: Oral Mucosa [place] & Moist Neck Neck Exam: Neck Supple Pulmonary Resp Exam: No Distress, Crackles, Rhonchi, Decreased Bases, Diminished Breath Sounds Cardiology CV Exam: Tachycardia Gastrointestinal/Abdomen GI Exam: Soft, Non-Tender, Bowel Sounds Present, Distended Extremeties Extremities Exam: Moderate Edema, Pitting Edema, Dependent Edema Neurologic Neuro Exam: Obtunded, Unresponsive Assessment/Plan Assessment Summary: MENDY/Acute Renal Failure, Hypotension Problem List: (1) Leukocytosis (2) Acute respiratory insufficiency (3) Sepsis (4) multiple pulmonary cavitary lesions (5) severe encephalopathy, likely due to sepsis and multiple embolic infarctions (6) Acute kidney injury 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 Bumex infusion decreased. Urine out put declined BP low dc Bumex given IVF as Cr high Urine Na. is normal, most likely has ATN causing MENDY. Continue antibiotics. Dr. Mireles to decide about dialysis d/w family they are aware of possibility discussed hypotension as a possibility d/w dr. Calhoun Palliative care following. Follow the urine out put and BMP. Problem Qualifiers (1) Sepsis: Qualified Code: A41.9 - Sepsis, due to unspecified organism Trevor Willard MD Dec 15, 2016 11:34
[2016-12-15] MEDS: FLUCONAZOLE 200 MG PREMIX BAG 100 ML IV SCH (12:29)
--- NOTE | 2016-12-15 15:18 | HHI.PR ---
Subjective Remarks Patient was intubated last night for acute hypoxemic resp failure and a right chest tube was placed for right hydroPTX in addition patient underwent bronch with BAL ( mucous plugs b/l suctioned to clear). MRI brain multifocal area of septic emboli/infarct Tolerates TF on Oxycodone and Seraquel Tolerates CPAP has worsening renal functions and Acidosis On Bumex drip Objective Vital Signs Vital Signs Date Time Temp Pulse Resp B/P Pulse Ox O2 Delivery O2 Flow Rate FiO2 12/15/16 12:06 100 35 12/15/16 10:00 87 20 99/53 100 12/15/16 09:00 91 23 110/59 100 12/15/16 08:11 35 12/15/16 08:09 100 35 12/15/16 08:04 100 35 12/15/16 08:00 99.1 86 20 94/52 100 12/15/16 08:00 35 12/15/16 07:00 Mechanical Ventilator 12/15/16 06:07 20 12/15/16 06:00 85 12/15/16 04:34 99 35 12/15/16 04:00 35 12/15/16 04:00 98.6 85 20 96/51 99 12/15/16 04:00 85 12/15/16 02:00 88 12/15/16 01:41 100 35 12/15/16 00:11 100 35 12/15/16 00:00 88 12/15/16 00:00 99.4 88 21 92/54 100 12/15/16 00:00 35 12/14/16 22:00 85 12/14/16 21:01 100 35 12/14/16 20:00 35 12/14/16 20:00 84 12/14/16 20:00 98.6 84 20 91/54 100 12/14/16 19:00 99 Mechanical Ventilator 35 12/14/16 18:00 84 20 92/52 99 12/14/16 17:00 83 19 93/50 99 12/14/16 16:21 98 35 12/14/16 16:00 35 12/14/16 16:00 99.1 83 20 93/54 99 I/O 12/14/16 12/14/16 12/14/16 12/15/16 12/15/16 12/15/16 07:00 15:00 23:00 07:00 15:00 23:00 Intake Total 1192 ml 1260 ml 1235 ml 1381 ml Output Total 545 ml 375 ml 145 ml 310 ml Balance 647 ml 885 ml 1090 ml 1071 ml IV Total 181 ml 320 ml 563 ml 369 ml Tube Feeding 381 ml 340 ml 372 ml 312 ml Albumin 100 ml Other 630 ml 600 ml 300 ml 600 ml Output Urine Total 275 ml 175 ml 125 ml 100 ml Stool Total 260 ml 200 ml 0 ml 200 ml Chest Tube Drainage Total 10 ml 0 ml 20 ml 10 ml Result Diagram: 12/15/16 0538 12/15/16 0535 Objective Remarks GENERAL: Patient is 56 yo critically ill intubated , sedated and on pressors. SKIN: Warm and dry. HEAD: Normocephalic. EYES: No scleral icterus. No injection or drainage. NECK: Supple, trachea midline. No JVD or lymphadenopathy. CARDIOVASCULAR: Regular rate and rhythm without murmurs, gallops, or rubs. RESPIRATORY: Breath sounds equal bilaterally. No accessory muscle use. GASTROINTESTINAL: Abdomen soft, non-tender, distended., tympanic MUSCULOSKELETAL: No cyanosis, or edema. Neuro: Sedated and intubated A/P Assessment and Plan 1VDRF 2)Septic shock 3)Staph Aureus bacteremia 4)Empyema 6)Endocarditis involving AV 7)Leucocytosis 8)Cavitary pulm masses 2nd staph Aureus 9)Right hydroPTX PLAN: Continue with vent support keep sat >92% Bronchodilators, ICU vent bundle, on stress dose steroids- Abx per ID Chest tube to suction Sedation with oxycodone and Seraquel CPAP TF 40 cc/hr Renal cosidering Vascath and HD if renal function don;t improve Emmett Bolton MD Dec 15, 2016 15:18
[2016-12-15 16:53] LABS: BLOOD GAS BASE EXCESS -12.4 mmol/L (-2-2); BLOOD GAS CARBOXYHEMOGLOBIN 1.3 % (0-4); BLOOD GAS HCO3 14 mmol/L (22-26); BLOOD GAS O2 HGB SATURATION 95 % (90-100); BLOOD GAS OXYGEN CONTENT 10.6 Vol % (12.0-20.0); BLOOD GAS PCO2 37 mmHg (38-42); BLOOD GAS PO2 111 mmHg (61-120); BLOOD GAS TOTAL HGB 7.8 G/DL (12.0-16.0); CRITICAL VALUE YES; OXYGEN DEVICE VENT; TEMP CORR TO 98.6
[2016-12-15 16:54] LABS: DRAW SITE LT RADIAL; FIO2 40 %; NUMBER OF ARTERIAL PUNCTURES 1; STAT YES; ULNAR PULSE PRESENT
[2016-12-15] MEDS ORDERED: SODIUM BICARBONATE 8.4% INJ 50 MEQ/50 ML SYR IV PUSH ONE (17:00)
[2016-12-15] MEDS: SODIUM BICARBONATE 8.4% INJ 150 MEQ in DEXTROSE 5% IN WATE 1000ML INJ 1,000 ML IV SCH ×2 (17:25)
[2016-12-15 20:18] LABS: BLOOD GAS BASE EXCESS -10.5 mmol/L (-2-2); BLOOD GAS CARBOXYHEMOGLOBIN 1.6 % (0-4); BLOOD GAS HCO3 16 mmol/L (22-26); BLOOD GAS METHEMOGLOBIN 1.1 % (0-2); BLOOD GAS O2 HGB SATURATION 94 % (90-100); BLOOD GAS OXYGEN CONTENT 9.8 Vol % (12.0-20.0); BLOOD GAS PCO2 37 mmHg (38-42); BLOOD GAS PO2 88 mmHg (61-120); BLOOD GAS TOTAL HGB 7.3 G/DL (12.0-16.0); CRITICAL VALUE YES; TEMP CORR TO 98.6
[2016-12-15 20:19] LABS: DRAW SITE RT RADIAL; NUMBER OF ARTERIAL PUNCTURES 1; OXYGEN DEVICE VENT; STAT NO; ULNAR PULSE PRESENT; VENT SETTINGS SEE COMMENTS
[2016-12-15] MEDS: MELATONIN 5 MG TAB PO SCH (20:52)
[2016-12-15 22:10] LABS: BICARBONATE 16.8 MEQ/L (21.0-32.0); POTASSIUM 3.7 MEQ/L (3.5-5.1)
[2016-12-16] VITALS (39 sets, daily range): BP systolic 87–107; BP diastolic 50–59; PULSE 82–93; RESP 18–30; TEMP 97.9–98.8; O2SAT 98–100
[2016-12-16] MEDS: oxyCODONE HCL ORAL CONC 20 MG/ML SYRINGE PO SCH ×3 (01:00→07:40)
[2016-12-16] MEDS: ALBUMIN HUMAN 25% 25 GM/100 ML BAGP IV SCH ×3 (01:03→17:04)
[2016-12-16] MEDS: PIPERACIL-TAZO 3.375 GM PREMIX 50 ML IV SCH ×4 (01:03→21:25)
[2016-12-16] MEDS: FREE WATER G-TUBE SCH ×6 (04:00→20:00)
[2016-12-16] MEDS: CHLORHEXIDINE GLUCONATE 2 % 1 PACK (2 CLOTHS) TOP SCH (04:00)
[2016-12-16] MEDS: SODIUM BICARBONATE 8.4% INJ 150 MEQ in DEXTROSE 5% IN WATE 1000ML INJ 1,000 ML IV SCH ×4 (04:09→17:00)
[2016-12-16 05:45] LABS: AUTOMATED NEUTROPHIL # 7.1 TH/MM3 (1.8-7.7); BASOPHIL % 0.2 % (0.0-2.0); EOSINOPHIL % 0.1 % (0.0-4.0); HEMATOCRIT 21.9 % (39.0-51.0); HEMO FLAGS DIFF FINAL; LYMPH % 26.6 % (9.0-44.0); LYMPHOCYTE # 2.8 TH/MM3 (1.0-4.8); MEAN CELL VOLUME 91.1 FL (80.0-100.0); MEAN CORPUSCULAR HEMOGLOBIN 30.7 PG (27.0-34.0); MEAN CORPUSCULAR HGB CONC 33.6 % (32.0-36.0); MONO % 5.5 % (0.0-8.0); NEUT % 67.6 % (16.0-70.0); PLATELET COUNT 141 TH/MM3 (150-450); RED CELL DISTRIBUTION WIDTH 16.8 % (11.6-17.2); WHITE BLOOD COUNT 10.5 TH/MM3 (4.0-11.0)
[2016-12-16] MEDS: PROPRANOLOL HCL 20 MG TAB PO SCH ×2 (06:00)
[2016-12-16] MEDS: QUEtiapine FUMARATE 100 MG TAB PO SCH (06:00)
[2016-12-16 06:12] LABS: BICARBONATE 18.4 MEQ/L (21.0-32.0); POTASSIUM 3.4 MEQ/L (3.5-5.1)
[2016-12-16] MEDS: ARTIFICIAL TEARS OPTH SOLN 15 ML BTL EACH EYE SCH ×3 (06:12→21:26)
[2016-12-16] MEDS: INSULIN ASPART SUPPLEMENTAL SCALE SQ SCH ×2 (06:12→11:00)
[2016-12-16] MEDS: PANTOPRAZOLE SODIUM 40 MG VIAL IV SCH ×2 (07:40→21:26)
[2016-12-16] MEDS: MULTIVITAMIN TAB PO SCH (07:40)
[2016-12-16] MEDS: FOLIC ACID 1 MG TAB PO SCH (07:40)
[2016-12-16] MEDS: THIAMINE HCL 100 MG TAB PO SCH (07:40)
[2016-12-16] MEDS: SODIUM CHLORIDE 0.9% FLUSH 10 ML FLUSH IVF SCH (07:41)
[2016-12-16] MEDS: SODIUM CHLORIDE 0.9% FLUSH 10 ML FLUSH IV FLUSH SCH (07:41)
[2016-12-16] MEDS: CHLORHEXIDINE 0.12% (ORAL KIT) 15 ML CUP MT SCH ×2 (07:42→21:26)
--- NOTE | 2016-12-16 09:12 | HHI.CCPN ---
Subjective Remarks/Hospital Course 56-year-old male is brought to the emergency department by EMS for evaluation of generalized weakness, confusion for about 2 weeks, and also increasing shortness of breath. His oxygen saturation was 88% on room air. EMS administered breathing treatments and Solu-Medrol 125 mg 1 and placed him on nasal cannula. Patient states that he had been sick for almost 10 days, but he is a poor historian. He had a productive cough, but reports no hematemesis or weight loss. He states that it was his neighbor who made him called EMS. He has no past medical history and last time had seen a doctor was about 15 years ago. He denies any fevers but reports some night sweats and chills. He was tachycardic with a heart rate of 115 bpm, had severe leukocytosis with a white count of 35,000 with 91% neutrophils. CMP shows hyponatremia with a sodium of 126. Lactic acid is 2.4. His Chest x-ray shows large 7.7 x 7.8 cm cavitary right midlung lesion with associated right-sided pleural effusion. Subcentimeter left mid lung pulmonary nodules. Patient received 1 L normal saline bolus and Zosyn 4.5 g and Zithromax 500 mg IV and was placed on TB/ respiratory isolation. He has been being in [facility] 2 years ago increasing his risk of tuberculosis. CT pulmonary angiogram negative for PE but showed multiple cavitary lesions within both lungs with the largest measuring 9.5 cm in the right upper lobe. Moderate size right pleural effusion. I evaluated the patient in the emergency department. Patient appears critically ill in moderate distress mildly tachypneic, sweating. I performed a bedside ultrasound which showed a right effusion which is large. The thoracentesis was performed and 1 L of cloudy dark pleural fluid was removed. Patient will be continued on Zosyn and Levaquin and vancomycin. ID consulted and I discussed with Dr. Steele-she recommended no empiric treatments for TB. 11/14/16: Patient seen and examined complaints of severe epigastric and periumbilical abdominal pain. Patient remains oriented to person. His white count is slightly improved from 35,000-28,9000. Na improved to 136. I have ordered a STAT CT abd/pelvis with IV contrast. Chest x-ray shows reaccumulation of right pleural effusion-fluid chemistries are pending but cell count indicates at least a parapneumonic effusion and patient will need a pigtail chest tube 11/15: Patient pulled his right-sided pigtail catheter out overnight last night. Currently nasal cannula in no acute distress. Afebrile. Continues to have a leukocytosis. 11/16: Currently on room air. Hold out his IVs reportedly overnight last night. Requesting diet. Awake and alert and following commands. 11/17: Intubated yesterday due to acute hypercapnic respiratory failure. Hypoxic post intubation requiring right chest tube placement, bronchoscopy and Flolan. Bronchoscopy revealed thick mucous plugging at bilateral right and left mainstem which were clear. Improved oxygenation over the past 12 hours. Afebrile. 11/18 Patient remains sedated with Diprivan, Fentanyl and intubated. On Vasopressin and Neosyn 120 mics. 11/19 Patient is sedated with Diprivan, Fentanyl and intubated. Afebrile. Off all pressors. Afebrile. WBC is trending down 30 today from 50. 11/20: Remains severely septic and encephalopathic even though weaned off all pressors. White count still elevated but trending down. Became extremely tachycardic and tachypneic on lowering sedation. We'll check MRI of the brain to rule out embolic infarct. Family at the bedside updated 11/21 Remains heavily sedated, remains encephalopathic. MRI brain is pending. Family is at bedside. Remains critically with resp failure severe from endocarditis, now unable to wean off the ventilator due to severe metabolic encephalopathy 11/22 No events overnight. Sedated with Diprivan, fentanyl and intubated. Afebrile. MRI brain yesterday showed ischemic changes likely related to septic emboli. 11/23: Patient remains encephalopathic, severe hyponatremia possible contributing , Na is 157 today. Currently on Precedex and fentanyl. CXR shows increasing L effusion 11/24: Patient more awake today. Follows Commands but did not tolerate spontaneous breathing trials. Had left pigtail chest tube placed yesterday 1.6 L transudative fluid removal since placement 11/25 Patient is sedated with Diprivan, Fentanyl and intubated. T:99.9 11/26 No events overnight. Sedated and intubated. Patient was on CPAP x 3 hrs yesterday then became tachypneic. 11/27: Resting in bed comfortably on Diprivan at 40 mics grams per kilogram per minute and fentanyl drip at 200 an hour. Tolerated PSV trial 2 hours yesterday before becoming tachypnea. Positive BM via fecal containment device 1100 cc. Yesterday according to RN was following commands. 11/28: Currently afebrile. Tolerating PSV trials 1.5 hours today for became tachypneic. Awake and alert and follows commands. Neurologically intact. Positive BM. 11/29: Tmax 99.6. Status post percutaneous tracheostomy secondary to failed extubation trials. Plan for PEG tube today. Awake and interactive the ventilator on sedation vacation. 11/30: DrAzael currently 98.8. Status post percutaneous tracheostomy Dr. Baker yesterday and PEG tube placement by Dr. Figueroa. Tube feeds will be resumed today. Otherwise appears comfortable ventilator. Arousable and follows commands on sedation vacation. 12/01: Patient becomes tachypneic on attempted CPAP, even with high pressure support. I will add by mouth Ativan to reduce IV sedation requirement. Decreasing chest tube output 12/02: Patient failed spontaneous breathing trial clinically today secondary to severe tachypnea and tachycardia. His spiking fever upto 103. Panculture blood , dose of vancomycin given. Most likely patient is getting new sepsis 12/03: Continued to spike fever up to 102. Dose of vancomycin was given yesterday. Patient tolerated CPAP for 3 hours today, remains encephalopathic though. 12/04: Patient more awake alert follows commands, tolerated CPAP but did not tolerate TPs. Abdomen significantly distended, KUB shows ileus. Continues to spike high fever. Diflucan vancomycin added by ID and continue Ancef 12/05: Abdomen remains distended, CT yesterday show intra abdominal free air. Unclear whether related to PEG or perforation. D/W with Dr. Baker, will get repeat CT with oral contrast today. Zosyn added by ID 12/06 Patient is sedated with Fentanyl and Diprivan. CT abdomen/pelvis yesterday sowed small bowel dilation ( ileus vs obstruction) 12/07 Patient remains intubated on low dose Diprivan and Fentanyl infusion however he is awake. Tolerated CPAP all day yesterday T: 100.0 last night. SB series showed distended loops of small bowel. Renal function worse today with Cr: 2.4 from 1.96. 12/08 No events overnight. On Diprivan and Fentanyl drip for sedation. T:99.9 last night. 12/09 Patient remains on ventilator via trach, sedated with Diprivan and Fentanyl. T: 101.0 last night. s/p transfusion 1unit PRBC yesterday. 12/10 Patient is sedate with Dip, Fentanyl and intubated. T: 101.6 at 8 am. 12/11: patient remains on sedation for his agitated delirium. remains febrile today. 25kg up from admission and Cr uptrending. bedside critical care echo demonstrates 2cm ivc without respiratory variation, RVSP 48 mmHg, mild RV dilation, normal LV function. by physical exam, grossly volume overloaded. Subjective 12/12: patient less agitated. following commands. still did not diurese well on intermittent bumex. BNP severely elevated. on my examination today patient with leaking trach despite multiple inflation of balloon. trach swapped out over cook exchange catheter with good seal for new trach (8.0 shiley cuffed). not making improvements. 12/13 No events overnight. On Bumex drip 1mg/hr, T: 100.8. Off sedation. 12/14 Patient is on ventilator via trach. T;100.7 last night. On Bumex drip 0.5mg /hr. Renal function worse Cr: 3.67 from 3.20 with UOP 1150ml in 24 hrs. 12/15 Patient remains on Bumex drip 0.5mg/hr however renal function is worsening with Cr: 4.27 from 3.67 and UOP: 400ml in 24 hrs. Afebrile. Tolerated CPAP all day yesterday. 12/16 Patient remains on ventilator via trach, renal function continue to decline with Cr: 4.83 from 4.72 with poor UOP. Vascath just placed for HD. Afebrile. On Bicarb drip. Objective Vital Signs Date Time Temp Pulse Resp B/P Pulse Ox O2 Delivery O2 Flow Rate FiO2 12/16/16 06:00 83 12/16/16 05:10 29 12/16/16 04:46 100 35 12/16/16 04:00 98.8 96/52 12/15/16 20:00 Mechanical Ventilator Intake and Output 12/15/16 12/15/16 12/16/16 08:00 16:00 00:00 Intake Total 1381 ml 2450 ml 1464 ml Output Total 310 ml 185 ml 325 ml Balance 1071 ml 2265 ml 1139 ml Result Diagram: 12/16/16 0459 12/16/16 0459 Other Results Laboratory Tests Test 12/15/16 12/15/16 12/15/16 12/15/16 10:51 16:38 20:02 21:42 Prothrombin Time 14.4 SEC Prothromb Time International 1.3 RATIO Ratio Blood Gas Puncture Site LT RADIAL RT RADIAL Blood Gas Patient Temperature 98.6 98.6 Blood Gas HCO3 14 mmol/L 16 mmol/L Blood Gas Base Excess -12.4 mmol/L -10.5 mmol/L Blood Gas Oxygen Saturation 95 % 94 % Arterial Blood pH 7.20 7.24 Arterial Blood Partial 37 mmHg 37 mmHg Pressure CO2 Arterial Blood Partial 111 mmHg 88 mmHg Pressure O2 Arterial Blood Oxygen Content 10.6 Vol % 9.8 Vol % Arterial Blood 1.3 % 1.6 % Carboxyhemoglobin Arterial Blood Methemoglobin 1.0 % 1.1 % Blood Gas Hemoglobin 7.8 G/DL 7.3 G/DL Oxygen Delivery Device VENT VENT Blood Gas Ventilator [facility]600/5/40 SEE COMMENTS Blood Gas Inspired Oxygen 40 % Sodium Level 143 MEQ/L Potassium Level 3.7 MEQ/L Chloride Level 113 MEQ/L Carbon Dioxide Level 16.8 MEQ/L Anion Gap 13 MEQ/L Blood Urea Nitrogen 85 MG/DL Creatinine 4.72 MG/DL Estimat Glomerular Filtration 13 ML/MIN Rate Random Glucose 160 MG/DL Calcium Level 7.7 MG/DL Test 12/16/16 04:59 White Blood Count 10.5 TH/MM3 Red Blood Count 2.40 MIL/MM3 Hemoglobin 7.4 GM/DL Hematocrit 21.9 % Mean Corpuscular Volume 91.1 FL Mean Corpuscular Hemoglobin 30.7 PG Mean Corpuscular Hemoglobin 33.6 % Concent Red Cell Distribution Width 16.8 % Platelet Count 141 TH/MM3 Mean Platelet Volume 9.3 FL Neutrophils (%) (Auto) 67.6 % Lymphocytes (%) (Auto) 26.6 % Monocytes (%) (Auto) 5.5 % Eosinophils (%) (Auto) 0.1 % Basophils (%) (Auto) 0.2 % Neutrophils # (Auto) 7.1 TH/MM3 Lymphocytes # (Auto) 2.8 TH/MM3 Monocytes # (Auto) 0.6 TH/MM3 Eosinophils # (Auto) 0.0 TH/MM3 Basophils # (Auto) 0.0 TH/MM3 CBC Comment DIFF FINAL Differential Comment Sodium Level 143 MEQ/L Potassium Level 3.4 MEQ/L Chloride Level 110 MEQ/L Carbon Dioxide Level 18.4 MEQ/L Anion Gap 15 MEQ/L Blood Urea Nitrogen 87 MG/DL Creatinine 4.83 MG/DL Estimat Glomerular Filtration 13 ML/MIN Rate Random Glucose 158 MG/DL Calcium Level 8.0 MG/DL Imaging Last Impressions Chest X-Ray 12/14/16 Signed Impressions: Service Date/Time: Wednesday, December 14, 2016 09:11 - CONCLUSION: 1. No interval change. 2. There is no pneumothorax. Rg Padilla MD FACR Chest Tube Insertion 12/09/16 Signed Impressions: Service Date/Time: Friday, December 09, 2016 14:53 - CONCLUSION: Uncomplicated chest tube placement as above. Agustin Pérez MD Renal Ultrasound 12/07/16 0000 Signed Impressions: Service Date/Time: Wednesday, December 07, 2016 10:08 - CONCLUSION: Unremarkable renal ultrasound and a trace of ascites identified. Reba Banerjee MD Abdomen X-Ray 12/07/16 0000 Signed Impressions: Service Date/Time: Wednesday, December 07, 2016 16:16 - CONCLUSION: Limited study but no free air seen. Jhoan Bishop MD Small Bowel X-Ray 12/06/16 Signed Impressions: Service Date/Time: Tuesday, December 06, 2016 16:55 - CONCLUSION: Distended loops of small bowel could be due to significant ileus versus partial small bowel obstruction and contrast gets into the colon at 13 hours. Reba Banerjee MD Abdomen Ultrasound 12/06/16 0000 Signed Impressions: Service Date/Time: Tuesday, December 06, 2016 11:31 - CONCLUSION: No free fluid is present. Agustin Bonner MD Abdomen/Pelvis CT 12/05/16 0000 Signed Impressions: Service Date/Time: November 23:28 - CONCLUSION: 1. Small bowel dilatation which may related to ileus or obstruction. The findings are similar to the prior exam. 2. Moderate ascites 3. Small pneumoperitoneum is present. Toribio Magana MD Brain MRI 11/21/16 0000 Signed Impressions: Service Date/Time: November 12:33 - CONCLUSION: Multifocal areas of restricted diffusion primarily in the periventricular and subcortical white matter bilaterally but also cortically based in the right frontal lobe. Findings likely represent ischemic change likely related to septic emboli given the patient's clinical history. No abscess or enhancing lesion is visualized. Agustin Bonner MD Head CT 11/17/16 0600 Signed Impressions: Service Date/Time: Thursday, November 17, 2016 10:39 - CONCLUSION: No significant change has occurred. Deven Urrutia MD Chest CT 11/16/16 0000 Signed Impressions: Service Date/Time: Wednesday, November 16, 2016 20:36 - CONCLUSION: 1. New right chest tube in the posterior superior right pleural space. There continues to be a moderate right pleural effusion primarily seen at the base. Some degree of loculation may be present inferiorly. The effusion does not layer posteriorly. There are scattered punctate areas of air within the pleural space inferiorly on the right. There is a solitary small area of air within the mild left pleural effusion. 2. Numerous irregular masses seen throughout both lungs some which are cavitary. These are nonspecific. Inflammatory masses needs be suspected. The multiplicity raises possibility of septic emboli. Agustin Price MD CT Angiography 11/13/16 1328 Signed Impressions: Service Date/Time: Sunday, November 13, 2016 15:50 - CONCLUSION: 1. Multiple cavitary lesions within both lungs with the largest measuring 9.5 cm in the right upper lobe. Differential diagnosis includes infectious and neoplastic etiologies. 2. Moderate sized right pleural effusion with adjacent compressive atelectasis and/or infiltrate. 3. Cardiomegaly and coronary artery calcifications. 4. Subcarinal mediastinal lymphadenopathy. 5. Degenerative changes throughout the thoracic spine. Jed Ponce MD Objective Remarks GENERAL: 56-year-old male, critically ill currently on ventilator via tracheostomy, SKIN: Warm and dry. Scattered skin lesions erythematous predominantly left lower extremity HEAD: Normocephalic and atraumatic. EYES: No injection, drainage. Pupils equally round and reactive around 3 mm ENT: No nasal drainage noted. Oropharynx is clear. NECK: trachea midline. Tracheostomy is clean dry and intact CARDIOVASCULAR: slightly tachycardic rate, regular rhythm. sinus by tele. RESPIRATORY: PSV 10/5/40%. equal chest rise GASTROINTESTINAL: Abdomen is distended, tympanic, no guarding MUSCULOSKELETAL: +3 pitting edema bilateral lower extremities. Multiple erythematous raised lesions on bilateral lower extremity predominantly left lower leg NEUROLOGICAL: Patient is awake on the ventilator. CAM-. RASS 0/-1 A/P Assessment and Plan NEURO/PSYCH: Metabolic encephalopathy Septic brain emboli Agitated Delirium off sedation. Hold oxycodone , Seroquel for encephalopathy melatonin 5mg po qHS Haldol 5mg iv q4h prn for breakthrough agitation EEG 11/24: Generalized encephalopathy without any significant epileptic activity. MRI brain 11/21: Ischemic changes throughout white matter likely related to septic emboli. Neuro Dr. Hernandez and has followed intermittently Thiamine 100mg PO daily RESP: Bilateral cavitary lung lesions/most likely cavitating pneumonia from staph aureus Chronic respiratory failure Large right loculated pleural effusion/empyema Left pleural effusion Right pneumothorax Continue with vent support keep sat >90%. DuoNebs every 4 hours with albuterol nebs every 2 hours. Vent bundle. Status post tracheostomy by Dr. Baker 11/29 A second Right sided 16 Japanese chest tube placed by IR 12/09 Right-sided chest tube #28 Japanese, Left-sided chest tube #10 Japanese- placed 11/24/16-removed 12/02 Right thoracentesis with 1 L cloudy yellow fluid removed, fluid cell studies WBC 2,600, Patient status post pigtail catheter placement 11/14, 445 cc prior pulled out . Evaluated by Dr. Samuels/CT surgery. Per his recommendations, No indication for decortication at this time CV: Aortic valve endocarditis/large vegetation Moderate Aortic Insufficiency Congestive Heart Failure secondary to valvulopathy Sinus tachycardia Atrial fibrillation with RVR - resolved, now normal sinus rhythm Elevated troponin - likely rate dependent , Monitor HR and BP keep MAP>65mmHg, hold propranolol - 2-D echocardiogram revealed EF 55-60%. Moderate AR. CHANDNI revealed 17 mm x 17 millimeter mobile mass on aortic valve. - limited echo 11/22 Persistent vegetation - CT surgery. Recommendations no intervention at this time GI: Intra peritoneal free air. (Related to PEG or perforation). Ileus Hypoalbuminemia Moderate protein calorie malnutrition/acute Continue with tube feeds- Nepro@40ml/hr. GI is following 12/06 SB series w/ Gastrografin showed distended SB loops- ileus vs partial bowel obstruction 12/[address] abdomen/pelvis- small pneumoperitoneum, small bowel dilation ( ileus vs obstruction) small pneumoperitoneum likely related to previous PEG tube placement, PEG tube to suction. GI/Surgery is following- Dr. Baker. CT abdomen 12/04 show intra peritoneal free air. ? related to PEG or perforation. IV Protonix for GI prophylaxis. Reglan, MiraLAX twice a day for bowel regimen Prev CT of the abdomen pelvis with IV contrast revealed possible ileus., Gastric contraction at gastric duodenal junction. 2 mm renal cyst. s/p PEG placement 11/29/16 : Acute kidney injury- persistent, not improving - may have component of congestive renal disease/cardiorenal syndrome from severe AI. Monitor renal function, I/O's, electrolytes replacement as needed. Avoid nephrotoxins Off Bumex drip, Cr: 4.83 today with poor UOP., On D5W+3 amps bicarb @100ml/hr Renal- Chi to start HD today On free water to 300mL q4h.monitor sodium level, Renal US: unremarkable, renal is following- Dr. Mireles ID: Severe sepsis Persistent fever Multilobar cavitating pneumonia secondary staph aureus Staph aureus empyema Aortic valve endocarditis - Continue with abx per ID ( Zosyn, Levaquin, Diflucan, Vanco, Ancef for endocarditis)- monitor for signs of infections ( Fever, WBC). -Follow up on BC from 12/14, check sputum cx Pertinent cultures 11/13 - blood cultures 2 - staph aureus 11/13 and 11/14- pleural fluid- staph aureus 11/14- sputum- staph aureus 11/15 - blood cultures 2 -staph aureus 11/16 - Bronch samples: Staph Aureus 11/16 Sputum: Staph Aureus 11/19 - blood cultures 2 - no growth 11/23 - pleural fluid - no growth 11/24 - blood cultures 2 - no growth 11/25 - UA - negative 11/25 - sputum no growth 12/02, 12/07: Urine C tropicalis 12/07, 12/10: Sputum: Pseudomonas 12/07, 12/09 BC: NGTD 12/12 Urine: Yeast species HEME: Normocytic anemia - Monitor CBC,s/p transfusion 1u PRBC 12/08, 2units PRBC given 12/12 ENDO: SSI with accuchecks for glycemic control TSH 0.6. PROPH: - Bilateral lower extremity SCDs. Heparin SQ on hold for anemia requiring blood transfusion IV Protonix for prophylaxis LINES: - peripheral IVs, Right IJ vascath placed today Palliative care is following Level 3 Noam Calhoun MD Dec 16, 2016 09:12 Noam Calhoun MD Dec 16, 2016 09:12
--- NOTE | 2016-12-16 09:16 | PD.PROCEDR ---
Central Line Procedure REASON FOR PROCEDURE Central venous access PROCEDURE PERFORMED Central line placement: Right IJ vascath CONSENT Informed consent for procedure was obtained. The risks and benefits of the procedure were discussed to include but limited to bleeding, clot formation, infection, and even . ANESTHESIA Local injection of 1% Lidocaine DESCRIPTION OF THE PROCEDURE The patient was placed in supine, mild Trendelenburg position. The area was exposed and cleansed with ChloraPrep, times two. Large sterile drape was used to cover the patient, with the site exposed, under sterile conditions including cap, face mask, sterile gown, and sterile gloves. On single attempt, the introducer needle was inserted with negative pressure in syringe and venous flash was obtained. The guide wire was then advanced without any restriction and the needle was removed. The dilator was used without any complications. Using Seldinger technique the catheter was advanced over the guide wire to a depth of 20 centimeters. The guide wire was removed. All ports were aspirated with dark venous blood return and flushed easily with sterile saline. All ports were capped. Antibiotic disc was placed around central line at puncture site. The central line was secured to the skin with two interrupted 2.0 silk sutures. The area was bandaged with sterile see-through central line bandage. RADIOLOGICAL DATA Ultrasound guidance was used to locate Right IJ vein. CXR ordered to verify line placement COMPLICATIONS: No apparent complications ESTIMATED BLOOD LOSS: Less than 1 cc. Noam Calhoun MD Dec 16, 2016 09:16
[2016-12-16] MEDS ORDERED: SODIUM CHLOR 0.9% 1000 ML INJ 1,000 ML IV PRN ×3 (10:10)
--- NOTE | 2016-12-16 10:13 | RADRPT ---
EXAM DATE/TIME: 12/16/2016 08:42 [facility] COMPARISON: CT ABDOMEN & PELVIS W/O CONTRAST, December 05, 2016, 23:28. CHEST SINGLE AP, December 14, 2016, 9:11. INDICATIONS : Right central line placement. MEDICAL HISTORY : Sepsis. SURGICAL HISTORY : PEG tube. ENCOUNTER: Subsequent ACUITY: 1 month PAIN SCORE: Non-responsive. LOCATION: Bilateral chest FINDINGS: Stable ETT and right-sided chest tubes. Interval placement of right internal jugular central venous c atheter with tip near the atriocaval junction. Stable tracheostomy. Interval improvement of right-isra ed pleural effusion with small loculated infralateral pneumothorax. Cardiomediastinal contours are st able. Remainder of exam is unchanged. CONCLUSION: 1. Right IJ central line in good position with tip in the cavoatrial junction. 2. Stable right-sided chest tubes in place with interval resolution of right pleural effusion. Small loculated inferior pneumothorax. 3. Remainder of the exam is unchanged. Elder Long MD on December 16, 2016 at 9:59 Board Certified Radiologist. This report was verified electronically.
[2016-12-16] MEDS ORDERED: MANNITOL 12.5 GM/50 ML VIAL IV PRN (10:15)
[2016-12-16] MEDS ORDERED: HEPARIN SODIUM - IV 10,000 UNITS/10 ML VIAL IVF PRN (10:15)
[2016-12-16] MEDS ORDERED: diphenhydrAMINE HCL 25 MG CAP PO PRN (10:15)
[2016-12-16] MEDS ORDERED: ALBUMIN HUMAN 25% 25 GM/100 ML BAGP IV PRN (10:15)
[2016-12-16] MEDS ORDERED: NITROGLYCERIN 0.4 MG SL 25 TABS/BTL SL PRN (10:15)
[2016-12-16] MEDS ORDERED: GELATIN 12 MM/7 MM FOAM TOP PRN (10:15)
[2016-12-16] MEDS ORDERED: SODIUM CHLORIDE 0.9% FLUSH 10 ML FLUSH IV FLUSH PRN (10:15)
[2016-12-16] MEDS ORDERED: ONDANSETRON HCL 4 MG/2 ML VIAL IV PRN (10:15)
[2016-12-16] MEDS ORDERED: ACETAMINOPHEN 325 MG TAB PO PRN (10:15)
[2016-12-16] MEDS ORDERED: cloNIDine HCL 0.1 MG TAB PO PRN (10:15)
--- NOTE | 2016-12-16 12:19 | HHI.IDPN ---
Note Infectious Disease Note On the vent. 35% fio2. Lethargic. Opens eyes. Afebrile. Hemodialysis about to be started. SBP 90. D/W RN. Large vegetation on AV and moderate aortic regurg on CHANDNI. Culture of blood 11/13, 11/15, 11/16. - Staph aureus. 11/19 no growth. Culture of pleural fluid 11/14 - staph aureus. ALLERGIES NO KNOWN DRUG ALLERGIES. ANTIBIOTICS: Ancef. Pip/Tazo. Diflucan. levaquin. OBJECTIVE: Vital Signs Date Time Temp Pulse Resp B/P Pulse Ox O2 Delivery O2 Flow Rate FiO2 12/16/16 10:30 84 25 89/51 99 12/16/16 10:00 84 24 94/53 99 12/16/16 09:30 87 24 95/53 100 12/16/16 09:26 100 35 12/16/16 09:24 85 23 94/53 100 12/16/16 09:00 85 26 94/53 100 12/16/16 08:30 98.4 91 26 104/56 100 12/16/16 08:00 85 28 102/59 100 12/16/16 08:00 35 12/16/16 07:00 Mechanical Ventilator 12/16/16 06:00 83 12/16/16 05:10 29 12/16/16 04:46 100 35 12/16/16 04:00 86 12/16/16 04:00 35 12/16/16 04:00 98.8 86 18 96/52 100 12/16/16 02:00 88 12/16/16 01:57 100 35 12/16/16 00:00 35 12/16/16 00:00 86 12/16/16 00:00 97.9 86 23 92/51 100 12/15/16 22:06 100 35 12/15/16 22:00 85 12/15/16 20:00 35 12/15/16 20:00 100 Mechanical Ventilator 35 12/15/16 20:00 86 12/15/16 20:00 99.5 86 24 88/55 100 12/15/16 19:41 100 35 12/15/16 18:00 87 21 93/52 100 12/15/16 17:00 87 23 92/54 99 12/15/16 16:00 98.7 92 23 109/55 99 12/15/16 16:00 35 12/15/16 15:46 100 35 12/15/16 15:00 86 26 90/54 100 12/15/16 14:41 86 23 99/52 100 12/15/16 14:00 84 20 84/52 100 12/15/16 13:00 85 21 92/54 100 12/15/16 12/15/16 12/16/16 15:00 23:00 07:00 Intake Total 2450 ml 1464 ml 1866 ml Output Total 185 ml 325 ml 300 ml Balance 2265 ml 1139 ml 1566 ml IV Total 1410 ml 802 ml 922 ml Tube Feeding 340 ml 362 ml 344 ml Albumin 100 ml Other 600 ml 300 ml 600 ml Output Urine Total 35 ml 15 ml 0 ml Stool Total 150 ml 300 ml 300 ml Chest Tube Drainage Total 10 ml 0 ml Laboratory Tests Test 12/15/16 12/16/16 05:38 04:59 White Blood Count 10.1 TH/MM3 10.5 TH/MM3 Red Blood Count 2.43 MIL/MM3 2.40 MIL/MM3 Hemoglobin 7.2 GM/DL 7.4 GM/DL Hematocrit 22.5 % 21.9 % Mean Corpuscular Volume 92.7 FL 91.1 FL Mean Corpuscular Hemoglobin 29.8 PG 30.7 PG Mean Corpuscular Hemoglobin 32.2 % 33.6 % Concent Red Cell Distribution Width 17.5 % 16.8 % Platelet Count 129 TH/MM3 141 TH/MM3 Mean Platelet Volume 8.2 FL 9.3 FL Neutrophils (%) (Auto) 71.3 % 67.6 % Lymphocytes (%) (Auto) 23.4 % 26.6 % Monocytes (%) (Auto) 4.6 % 5.5 % Eosinophils (%) (Auto) 0.4 % 0.1 % Basophils (%) (Auto) 0.3 % 0.2 % Neutrophils # (Auto) 7.2 TH/MM3 7.1 TH/MM3 Lymphocytes # (Auto) 2.4 TH/MM3 2.8 TH/MM3 Monocytes # (Auto) 0.5 TH/MM3 0.6 TH/MM3 Eosinophils # (Auto) 0.0 TH/MM3 0.0 TH/MM3 Basophils # (Auto) 0.0 TH/MM3 0.0 TH/MM3 CBC Comment DIFF FINAL DIFF FINAL Differential Comment Laboratory Tests Test 12/15/16 12/15/16 12/16/16 05:35 21:42 04:59 Sodium Level 144 MEQ/L 143 MEQ/L 143 MEQ/L Potassium Level 3.6 MEQ/L 3.7 MEQ/L 3.4 MEQ/L Chloride Level 114 MEQ/L 113 MEQ/L 110 MEQ/L Carbon Dioxide Level 17.1 MEQ/L 16.8 MEQ/L 18.4 MEQ/L Anion Gap 13 MEQ/L 13 MEQ/L 15 MEQ/L Blood Urea Nitrogen 80 MG/DL 85 MG/DL 87 MG/DL Creatinine 4.27 MG/DL 4.72 MG/DL 4.83 MG/DL Estimat Glomerular Filtration 15 ML/MIN 13 ML/MIN 13 ML/MIN Rate Random Glucose 111 MG/DL 160 MG/DL 158 MG/DL Calcium Level 7.8 MG/DL 7.7 MG/DL 8.0 MG/DL Microbiology Date/Time Procedure Status Source Growth 12/14/16 12:02 Aerobic Blood Culture - Preliminary Resulted Blood Peripheral NO GROWTH IN 2 DAYS 12/14/16 12:02 Anaerobic Blood Culture - Preliminary Resulted Blood Peripheral NO GROWTH IN 2 DAYS 12/14/16 12:24 Aerobic Blood Culture - Preliminary Resulted Blood Peripheral NO GROWTH IN 2 DAYS 12/14/16 12:24 Anaerobic Blood Culture - Preliminary Resulted Blood Peripheral NO GROWTH IN 2 DAYS 12/15/16 08:20 Gram Stain - Final Resulted Sputum Endotracheal 12/15/16 08:20 Sputum Culture Resulted Sputum Endotracheal Pending IMAGING: Chest X-Ray 12/16/16 0000 Signed Impressions: Service Date/Time: Friday, December 16, 2016 08:42 - CONCLUSION: 1. Right IJ central line in good position with tip in the cavoatrial junction. 2. Stable right-sided chest tubes in place with interval resolution of right pleural effusion. Small loculated inferior pneumothorax. 3. Remainder of the exam is unchanged. Elder Long MD Chest X-Ray 12/12/16 0600 Signed Impressions: Service Date/Time: November 03:53 - CONCLUSION: 1. Increased airspace consolidation in the right lower lung zone. The left lung base opacity is stable. 2. Right chest tube is present and no pneumothorax is visualized. Agustin Bonner MD PHYSICAL EXAMINATION GENERAL: On the vent. HEENT: No icterus. Oropharynx: No lesions. Mucosa moist. NECK: Supple without adenopathy. LUNGS: Decreased breath sounds. Clear. HEART: Normal S1-S2 with 2/6 IRMA at LSB. ABDOMEN: Less distended. Soft. Decreased bowel sounds. Unable to appreciate tenderness. EXTREMITIES: No clubbing or cyanosis, 1+ edema. SKIN: No rash. NEURO: Unable to assess, not following commands. PSYCH: unable to assess. IMPRESSION 1. Endocarditis Aortic valve Staph aureus (MSSA). 2. Cavitary pulmonary lesions. 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 3. Pneumonia/parapneumonic effusion- MSSA. - pseudomonas pneumonia. VAP. 4. Leukocytosis secondary to infection. WBC now normal. 5. Recurrent fever. ? source. Probably pulmonary. 6. Vent dependent respiratory failure. 7. Ileus. 8. Acute renal failure. 9. Fever - temp improved. RECOMMENDATIONS 1. Continue IV Ancef for endocarditis. Dose decreased because of renal function. 2. Stop Diflucan. 3. Continue PIP/Tazobactam. 4. Continue Levaquin. 5. Monitor temperature. 6. Follow sputum culture. Slava Garcia MD Dec 16, 2016 12:19
[2016-12-16] MEDS: LEVOFLOXACIN 250 MG PREMIX INJ 50 ML IV SCH (14:07)
[2016-12-16] MEDS: HEPARIN SODIUM - IV 10,000 UNITS/10 ML VIAL PRN (14:18)
[2016-12-16] MEDS: GENTAMICIN SULFATE (DIALYSIS USE ONLY) 20 MG/2 ML VIAL IV PRN (14:19)
[2016-12-16] MEDS: EPOETIN ALFA 10,000 UNITS/ML VIAL IV PRN (14:19)
--- NOTE | 2016-12-16 16:55 | HHI.PR ---
Subjective Subjective Notes Resting in bed Tolerating TF Start on HD Objective Vitals/I&O Vital Signs Date Time Temp Pulse Resp B/P Pulse Ox O2 Delivery O2 Flow Rate FiO2 12/16/16 14:53 99 35 12/16/16 10:30 84 25 89/51 12/16/16 08:30 98.4 12/16/16 07:00 Mechanical Ventilator Labs Laboratory Tests Test 12/15/16 12/15/16 12/16/16 20:02 21:42 04:59 Blood Gas Puncture Site RT RADIAL Blood Gas Patient Temperature 98.6 Blood Gas HCO3 16 Blood Gas Base Excess -10.5 Blood Gas Oxygen Saturation 94 Arterial Blood pH 7.24 Arterial Blood Partial 37 Pressure CO2 Arterial Blood Partial 88 Pressure O2 Arterial Blood Oxygen Content 9.8 Arterial Blood 1.6 Carboxyhemoglobin Arterial Blood Methemoglobin 1.1 Blood Gas Hemoglobin 7.3 Oxygen Delivery Device VENT Blood Gas Ventilator Setting SEE COMMENTS Sodium Level 143 143 Potassium Level 3.7 3.4 Chloride Level 113 110 Carbon Dioxide Level 16.8 18.4 Anion Gap 13 15 Blood Urea Nitrogen 85 87 Creatinine 4.72 4.83 Estimat Glomerular Filtration 13 13 Rate Random Glucose 160 158 Calcium Level 7.7 8.0 White Blood Count 10.5 Red Blood Count 2.40 Hemoglobin 7.4 Hematocrit 21.9 Mean Corpuscular Volume 91.1 Mean Corpuscular Hemoglobin 30.7 Mean Corpuscular Hemoglobin 33.6 Concent Red Cell Distribution Width 16.8 Platelet Count 141 Mean Platelet Volume 9.3 Neutrophils (%) (Auto) 67.6 Lymphocytes (%) (Auto) 26.6 Monocytes (%) (Auto) 5.5 Eosinophils (%) (Auto) 0.1 Basophils (%) (Auto) 0.2 Neutrophils # (Auto) 7.1 Lymphocytes # (Auto) 2.8 Monocytes # (Auto) 0.6 Eosinophils # (Auto) 0.0 Basophils # (Auto) 0.0 CBC Comment DIFF FINAL Differential Comment Date/Time Procedure Status Source Growth 12/15/16 08:20 Gram Stain - Final Resulted Sputum Endotracheal 12/15/16 08:20 Sputum Culture - Preliminary Resulted Pseudomonas Aeruginosa 12/14/16 12:24 Aerobic Blood Culture - Preliminary Resulted Blood Peripheral NO GROWTH IN 2 DAYS 12/14/16 12:24 Anaerobic Blood Culture - Preliminary Resulted Blood Peripheral NO GROWTH IN 2 DAYS 12/12/16 18:25 Urine Culture - Final Complete Urine Catheterized Urine Marquita Tropicalis Radiology Last Impressions Renal Ultrasound 12/07/16 0000 Signed Impressions: Service Date/Time: Wednesday, December 07, 2016 10:08 - CONCLUSION: Unremarkable renal ultrasound and a trace of ascites identified. Reba Banerjee MD Abdomen X-Ray 12/07/16 0000 Signed Impressions: Service Date/Time: Wednesday, December 07, 2016 16:16 - CONCLUSION: Limited study but no free air seen. Jhoan Bishop MD Chest X-Ray 12/06/16 06 Signed Impressions: Service Date/Time: Tuesday, December 06, 2016 04:02 - CONCLUSION: 1. Cardiomegaly 2. Patchy alveolar disease characteristic of edema or pneumonia. There has been no significant change when compared to the prior exam. Toribio Magana MD Small Bowel X-Ray 12/06/16 0000 Signed Impressions: Service Date/Time: Tuesday, December 06, 2016 16:55 - CONCLUSION: Distended loops of small bowel could be due to significant ileus versus partial small bowel obstruction and contrast gets into the colon at 13 hours. Reba Banerjee MD Abdomen Ultrasound 12/06/16 0000 Signed Impressions: Service Date/Time: Tuesday, December 06, 2016 11:31 - CONCLUSION: No free fluid is present. Agustin Bonner MD Abdomen/Pelvis CT 12/05/16 0000 Signed Impressions: Service Date/Time: November 23:28 - CONCLUSION: 1. Small bowel dilatation which may related to ileus or obstruction. The findings are similar to the prior exam. 2. Moderate ascites 3. Small pneumoperitoneum is present. Toribio Magana MD Brain MRI 11/21/16 0000 Signed Impressions: Service Date/Time: November 12:33 - CONCLUSION: Multifocal areas of restricted diffusion primarily in the periventricular and subcortical white matter bilaterally but also cortically based in the right frontal lobe. Findings likely represent ischemic change likely related to septic emboli given the patient's clinical history. No abscess or enhancing lesion is visualized. Agustin Bonner MD Head CT 11/17/16 0600 Signed Impressions: Service Date/Time: Thursday, November 17, 2016 10:39 - CONCLUSION: No significant change has occurred. Deven Urrutia MD Chest CT 11/16/16 0000 Signed Impressions: Service Date/Time: Wednesday, November 16, 2016 20:36 - CONCLUSION: 1. New right chest tube in the posterior superior right pleural space. There continues to be a moderate right pleural effusion primarily seen at the base. Some degree of loculation may be present inferiorly. The effusion does not layer posteriorly. There are scattered punctate areas of air within the pleural space inferiorly on the right. There is a solitary small area of air within the mild left pleural effusion. 2. Numerous irregular masses seen throughout both lungs some which are cavitary. These are nonspecific. Inflammatory masses needs be suspected. The multiplicity raises possibility of septic emboli. Agustin Price MD CT Angiography 11/13/16 1328 Signed Impressions: Service Date/Time: Sunday, November 13, 2016 15:50 - CONCLUSION: 1. Multiple cavitary lesions within both lungs with the largest measuring 9.5 cm in the right upper lobe. Differential diagnosis includes infectious and neoplastic etiologies. 2. Moderate sized right pleural effusion with adjacent compressive atelectasis and/or infiltrate. 3. Cardiomegaly and coronary artery calcifications. 4. Subcarinal mediastinal lymphadenopathy. 5. Degenerative changes throughout the thoracic spine. Jed Ponce MD Cardiovascular: Regular Lungs: Clear Abdomen: Other (distended; non tender ) Extremities: Other (mild generalized edema ) Narrative Exam trach in place A/P Problem List: (1) S/P percutaneous endoscopic gastrostomy (PEG) tube placement Assessment and Plan 56 year old male with multiple medical problems; s/p trach; now with distended abdomen and CT showing free air -Stable -Continue to follow abdominal exam; exam currently benign -Tolerating TF at 40 cc/hr (goal) -General Surgery will continue to follow peripherally; please call with questions Attestation The exam, history, and the medical decision-making described in the above note were completed with the assistance of the mid-level provider. I reviewed and agree with the findings presented. I attest that I had a [id number] encounter with the patient on the same day, and personally performed and documented my assessment and findings in the medical record. Carey Barnett Dec 16, 2016 16:55 Ravi Baker MD Dec 20, 2016 15:49
--- NOTE | 2016-12-16 17:16 | HHI.PR ---
Subjective Remarks Patient was intubated last night for acute hypoxemic resp failure and a right chest tube was placed for right hydroPTX in addition patient underwent bronch with BAL ( mucous plugs b/l suctioned to clear). MRI brain multifocal area of septic emboli/infarct Tolerates TF on Oxycodone and Seraquel has worsening renal functions and Acidosis Had HD today On Vent Objective Vital Signs Vital Signs Date Time Temp Pulse Resp B/P Pulse Ox O2 Delivery O2 Flow Rate FiO2 12/16/16 14:53 99 35 12/16/16 12:00 35 12/16/16 10:30 84 25 89/51 99 12/16/16 10:00 84 24 94/53 99 12/16/16 09:30 87 24 95/53 100 12/16/16 09:26 100 35 12/16/16 09:24 85 23 94/53 100 12/16/16 09:00 85 26 94/53 100 12/16/16 08:30 98.4 91 26 104/56 100 12/16/16 08:00 85 28 102/59 100 12/16/16 08:00 35 12/16/16 07:00 Mechanical Ventilator 12/16/16 06:00 83 12/16/16 05:10 29 12/16/16 04:46 100 35 12/16/16 04:00 86 12/16/16 04:00 35 12/16/16 04:00 98.8 86 18 96/52 100 12/16/16 02:00 88 12/16/16 01:57 100 35 12/16/16 00:00 35 12/16/16 00:00 86 12/16/16 00:00 97.9 86 23 92/51 100 12/15/16 22:06 100 35 12/15/16 22:00 85 12/15/16 20:00 35 12/15/16 20:00 100 Mechanical Ventilator 35 12/15/16 20:00 86 12/15/16 20:00 99.5 86 24 88/55 100 12/15/16 19:41 100 35 12/15/16 18:00 87 21 93/52 100 I/O 12/15/16 12/15/16 12/15/16 12/16/16 12/16/16 12/16/16 06:59 14:59 22:59 06:59 14:59 22:59 Intake Total 1381 ml 2450 ml 1464 ml 1866 ml 1720 ml Output Total 310 ml 185 ml 325 ml 300 ml 420 ml Balance 1071 ml 2265 ml 1139 ml 1566 ml 1300 ml IV Total 369 ml 1410 ml 802 ml 922 ml 970 ml Tube Feeding 312 ml 340 ml 362 ml 344 ml 150 ml Albumin 100 ml 100 ml Other 600 ml 600 ml 300 ml 600 ml 600 ml Output Urine Total 100 ml 35 ml 15 ml 0 ml 10 ml Stool Total 200 ml 150 ml 300 ml 300 ml 400 ml Chest Tube Drainage Total 10 ml 10 ml 0 ml 10 ml Result Diagram: 12/16/16 0459 12/16/16 0459 Objective Remarks GENERAL: Patient is 56 yo critically ill intubated , sedated and on pressors. SKIN: Warm and dry. HEAD: Normocephalic. EYES: No scleral icterus. No injection or drainage. NECK: Supple, trachea midline. No JVD or lymphadenopathy. CARDIOVASCULAR: Regular rate and rhythm without murmurs, gallops, or rubs. RESPIRATORY: Breath sounds equal bilaterally. No accessory muscle use. GASTROINTESTINAL: Abdomen soft, non-tender, distended., tympanic MUSCULOSKELETAL: No cyanosis, or edema. Neuro: Sedated and intubated A/P Assessment and Plan 1VDRF 2)Septic shock 3)Staph Aureus bacteremia 4)Empyema 6)Endocarditis involving AV 7)Leucocytosis 8)Cavitary pulm masses 2nd staph Aureus 9)Right hydroPTX 10) renal failure PLAN: Continue with vent support keep sat >92% Bronchodilators, ICU vent bundle, on stress dose steroids- Abx per ID Chest tube to suction Sedation with oxycodone and Seraquel Vent support TF 40 cc/hr Emmett Bolotn MD Dec 16, 2016 17:16
--- NOTE | 2016-12-16 18:17 | HHI.NPPN ---
Subjective General Problems: Anemia, Edema, Hypotension Renal Failure: Acute History of Present Illness This is 56 years old male, with Resp. failure, post tracheostomy, develop MENDY. Additional Remarks Patient remain on the vent. open eyes, not following commands. Objective Data Data 12/15/16 12/16/16 19:00 07:00 Intake Total 2450 ml 3330 ml Output Total 185 ml 625 ml Balance 2265 ml 2705 ml IV Total 1410 ml 1724 ml Tube Feeding 340 ml 706 ml Albumin 100 ml Other 600 ml 900 ml Output Urine Total 35 ml 15 ml Stool Total 150 ml 600 ml Chest Tube Drainage Total 10 ml Vital Signs Date Time Temp Pulse Resp B/P Pulse Ox O2 Delivery O2 Flow Rate FiO2 12/16/16 16:30 86 26 88/54 100 12/16/16 16:15 90 26 92/54 100 12/16/16 16:00 35 12/16/16 16:00 98.7 85 23 92/54 100 12/16/16 15:45 86 22 93/50 100 12/16/16 15:30 87 21 91/51 100 12/16/16 15:15 85 24 87/50 99 12/16/16 15:00 85 26 90/54 99 12/16/16 14:53 99 35 12/16/16 14:45 86 25 92/53 99 12/16/16 14:30 87 24 89/54 100 12/16/16 14:15 89 29 93/54 100 12/16/16 14:00 87 24 98/54 100 12/16/16 13:45 88 24 101/58 100 12/16/16 13:30 88 25 100/55 100 12/16/16 13:15 84 23 91/50 100 12/16/16 13:00 87 30 96/56 100 12/16/16 12:45 86 23 97/56 100 12/16/16 12:30 84 22 101/57 100 12/16/16 12:00 98.4 82 25 90/55 100 12/16/16 12:00 35 12/16/16 11:30 83 28 103/57 100 12/16/16 11:00 83 24 88/51 99 12/16/16 10:30 84 25 89/51 99 12/16/16 10:00 84 24 94/53 99 12/16/16 09:30 87 24 95/53 100 12/16/16 09:26 100 35 12/16/16 09:24 85 23 94/53 100 12/16/16 09:00 85 26 94/53 100 12/16/16 08:30 98.4 91 26 104/56 100 12/16/16 08:00 85 28 102/59 100 12/16/16 08:00 35 12/16/16 07:00 Mechanical Ventilator 12/16/16 06:00 83 12/16/16 05:10 29 12/16/16 04:46 100 35 12/16/16 04:00 86 12/16/16 04:00 35 12/16/16 04:00 98.8 86 18 96/52 100 12/16/16 02:00 88 12/16/16 01:57 100 35 12/16/16 00:00 35 12/16/16 00:00 86 12/16/16 00:00 97.9 86 23 92/51 100 12/15/16 22:06 100 35 12/15/16 22:00 85 12/15/16 20:00 35 12/15/16 20:00 100 Mechanical Ventilator 35 12/15/16 20:00 86 12/15/16 20:00 99.5 86 24 88/55 100 12/15/16 19:41 100 35 -: 12/16/16 0459 12/16/16 0459 Physical Exam General Appearance Remarks On the vent. with Trach. Eyes Eye Exam: Pupils Equal Throat Throat Exam: Oral Mucosa [place] & Moist Neck Neck Exam: Neck Supple Pulmonary Resp Exam: No Distress, Crackles, Rhonchi, Decreased Bases, Diminished Breath Sounds Cardiology CV Exam: Tachycardia Gastrointestinal/Abdomen GI Exam: Soft, Non-Tender, Bowel Sounds Present, Distended Extremeties Extremities Exam: Moderate Edema, Pitting Edema, Dependent Edema Neurologic Neuro Exam: Awake Assessment/Plan Assessment Summary: MENDY/Acute Renal Failure, Hypotension Problem List: (1) Leukocytosis (2) Acute respiratory insufficiency (3) Sepsis (4) multiple pulmonary cavitary lesions (5) severe encephalopathy, likely due to sepsis and multiple embolic infarctions (6) Acute kidney injury 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 Bumex infusion decreased. Urine out put declined BP low. Started on HD as Creatinine continue to increase. Removed 2 liters. Prognosis is guarded.. Palliative care following. Problem Qualifiers (1) Sepsis: Qualified Code: A41.9 - Sepsis, due to unspecified organism Otoniel Mireles MD Dec 16, 2016 18:17
[2016-12-16] MEDS: RESP: ALBUTEROL 2.5 MG/3 ML NEB (PRN) INH (21:12)
[2016-12-16] MEDS: MELATONIN 5 MG TAB PO SCH (21:26)
[2016-12-17] VITALS (40 sets, daily range): BP systolic 100–154; BP diastolic 51–104; PULSE 76–114; RESP 12–43; TEMP 98–103.1; O2SAT 97–100
[2016-12-17] MEDS: INSULIN ASPART SUPPLEMENTAL SCALE SQ SCH ×5 (00:39→23:00)
[2016-12-17] MEDS: ALBUMIN HUMAN 25% 25 GM/100 ML BAGP IV SCH ×3 (00:40→16:09)
[2016-12-17] MEDS: FREE WATER G-TUBE SCH ×5 (04:00→16:00)
[2016-12-17] MEDS: CHLORHEXIDINE GLUCONATE 2 % 1 PACK (2 CLOTHS) TOP SCH (04:00)
[2016-12-17] MEDS: RESP: ALBUTEROL 2.5 MG/3 ML NEB (PRN) INH ×2 (05:04→20:13)
--- NOTE | 2016-12-17 05:33 | RADRPT ---
EXAM DATE/TIME: 12/17/2016 03:03 [facility] COMPARISON: CHEST EXPIRATION ONLY, December 09, 2016, 16:36. INDICATIONS : Short of breath. MEDICAL HISTORY : Sepsis. SURGICAL HISTORY : PEG tube. ENCOUNTER: Subsequent ACUITY: 1 month PAIN SCORE: 0/10 LOCATION: Bilateral chest FINDINGS: A single AP portable semierect view of the chest was obtained and demonstrates interval placement of a right internal jugular central venous line with the tip projected over the superior vena cava. Ther e is no new pneumothorax. The right-sided chest tube remains in place as does the small bore chest tu be. Lucency remains at the right lung base. The tracheostomy tube remains in place. There is abnormal opacity remaining in both lung bases right greater than left. The heart size is mildly prominent. CONCLUSION: 1. Interval placement of right internal jugular central venous line with no new pneumothorax. 2. Right-sided chest tubes remain in place with stable lucency at the right lung base. Krzysztof Mendez MD on December 17, 2016 at 5:29 Board Certified Radiologist. This report was verified electronically.
[2016-12-17] MEDS: ARTIFICIAL TEARS OPTH SOLN 15 ML BTL EACH EYE SCH ×2 (06:00→16:08)
[2016-12-17] MEDS: PIPERACIL-TAZO 3.375 GM PREMIX 50 ML IV SCH ×3 (06:34→14:00)
[2016-12-17] MEDS: SODIUM BICARBONATE 8.4% INJ 150 MEQ in DEXTROSE 5% IN WATE 1000ML INJ 1,000 ML IV SCH ×2 (06:34)
[2016-12-17] MEDS: CHLORHEXIDINE 0.12% (ORAL KIT) 15 ML CUP MT SCH (08:00)
[2016-12-17 09:55] LABS: AUTOMATED NEUTROPHIL # 8.8 TH/MM3 (1.8-7.7); BASOPHIL % 0.3 % (0.0-2.0); EOSINOPHIL % 0.1 % (0.0-4.0); HEMATOCRIT 21.6 % (39.0-51.0); HEMO FLAGS DIFF FINAL; LYMPH % 24.9 % (9.0-44.0); LYMPHOCYTE # 3.1 TH/MM3 (1.0-4.8); MEAN CELL VOLUME 91.1 FL (80.0-100.0); MEAN CORPUSCULAR HEMOGLOBIN 30.3 PG (27.0-34.0); MEAN CORPUSCULAR HGB CONC 33.2 % (32.0-36.0); MONO % 5.3 % (0.0-8.0); NEUT % 69.4 % (16.0-70.0); PLATELET COUNT 177 TH/MM3 (150-450); RED BLOOD COUNT 2.37 MIL/MM3 (4.50-5.90); WHITE BLOOD COUNT 12.6 TH/MM3 (4.0-11.0)
[2016-12-17 10:23] LABS: BICARBONATE 19.1 MEQ/L (21.0-32.0)
[2016-12-17] MEDS: SODIUM CHLORIDE 0.9% FLUSH 10 ML FLUSH IVF SCH (10:31)
[2016-12-17] MEDS: PANTOPRAZOLE SODIUM 40 MG VIAL IV SCH (10:31)
[2016-12-17 10:32] LABS: POTASSIUM 3.2 MEQ/L (3.5-5.1)
[2016-12-17] MEDS: FOLIC ACID 1 MG TAB PO SCH (10:32)
[2016-12-17] MEDS: THIAMINE HCL 100 MG TAB PO SCH (10:32)
[2016-12-17] MEDS: MULTIVITAMIN TAB PO SCH (10:32)
[2016-12-17] MEDS: EPOETIN ALFA 10,000 UNITS/ML VIAL IV PRN (11:29)
[2016-12-17] MEDS: GENTAMICIN SULFATE (DIALYSIS USE ONLY) 20 MG/2 ML VIAL IV PRN (11:29)
[2016-12-17] MEDS: HEPARIN SODIUM - IV 10,000 UNITS/10 ML VIAL PRN (11:29)
--- NOTE | 2016-12-17 12:53 | HHI.CCPN ---
Subjective Remarks/Hospital Course 56-year-old male is brought to the emergency department by EMS for evaluation of generalized weakness, confusion for about 2 weeks, and also increasing shortness of breath. His oxygen saturation was 88% on room air. EMS administered breathing treatments and Solu-Medrol 125 mg 1 and placed him on nasal cannula. Patient states that he had been sick for almost 10 days, but he is a poor historian. He had a productive cough, but reports no hematemesis or weight loss. He states that it was his neighbor who made him called EMS. He has no past medical history and last time had seen a doctor was about 15 years ago. He denies any fevers but reports some night sweats and chills. He was tachycardic with a heart rate of 115 bpm, had severe leukocytosis with a white count of 35,000 with 91% neutrophils. CMP shows hyponatremia with a sodium of 126. Lactic acid is 2.4. His Chest x-ray shows large 7.7 x 7.8 cm cavitary right midlung lesion with associated right-sided pleural effusion. Subcentimeter left mid lung pulmonary nodules. Patient received 1 L normal saline bolus and Zosyn 4.5 g and Zithromax 500 mg IV and was placed on TB/ respiratory isolation. He has been being in assisted 2 years ago increasing his risk of tuberculosis. CT pulmonary angiogram negative for PE but showed multiple cavitary lesions within both lungs with the largest measuring 9.5 cm in the right upper lobe. Moderate size right pleural effusion. I evaluated the patient in the emergency department. Patient appears critically ill in moderate distress mildly tachypneic, sweating. I performed a bedside ultrasound which showed a right effusion which is large. The thoracentesis was performed and 1 L of cloudy dark pleural fluid was removed. Patient will be continued on Zosyn and Levaquin and vancomycin. ID consulted and I discussed with Dr. Steele-she recommended no empiric treatments for TB. 11/14/16: Patient seen and examined complaints of severe epigastric and periumbilical abdominal pain. Patient remains oriented to person. His white count is slightly improved from 35,000-28,9000. Na improved to 136. I have ordered a STAT CT abd/pelvis with IV contrast. Chest x-ray shows reaccumulation of right pleural effusion-fluid chemistries are pending but cell count indicates at least a parapneumonic effusion and patient will need a pigtail chest tube 11/15: Patient pulled his right-sided pigtail catheter out overnight last night. Currently nasal cannula in no acute distress. Afebrile. Continues to have a leukocytosis. 11/16: Currently on room air. Hold out his IVs reportedly overnight last night. Requesting diet. Awake and alert and following commands. 11/17: Intubated yesterday due to acute hypercapnic respiratory failure. Hypoxic post intubation requiring right chest tube placement, bronchoscopy and Flolan. Bronchoscopy revealed thick mucous plugging at bilateral right and left mainstem which were clear. Improved oxygenation over the past 12 hours. Afebrile. 11/18 Patient remains sedated with Diprivan, Fentanyl and intubated. On Vasopressin and Neosyn 120 mics. 11/19 Patient is sedated with Diprivan, Fentanyl and intubated. Afebrile. Off all pressors. Afebrile. WBC is trending down 30 today from 50. 11/20: Remains severely septic and encephalopathic even though weaned off all pressors. White count still elevated but trending down. Became extremely tachycardic and tachypneic on lowering sedation. We'll check MRI of the brain to rule out embolic infarct. Family at the bedside updated 11/21 Remains heavily sedated, remains encephalopathic. MRI brain is pending. Family is at bedside. Remains critically with resp failure severe from endocarditis, now unable to wean off the ventilator due to severe metabolic encephalopathy 11/22 No events overnight. Sedated with Diprivan, fentanyl and intubated. Afebrile. MRI brain yesterday showed ischemic changes likely related to septic emboli. 11/23: Patient remains encephalopathic, severe hyponatremia possible contributing , Na is 157 today. Currently on Precedex and fentanyl. CXR shows increasing L effusion 11/24: Patient more awake today. Follows Commands but did not tolerate spontaneous breathing trials. Had left pigtail chest tube placed yesterday 1.6 L transudative fluid removal since placement 11/25 Patient is sedated with Diprivan, Fentanyl and intubated. T:99.9 11/26 No events overnight. Sedated and intubated. Patient was on CPAP x 3 hrs yesterday then became tachypneic. 11/27: Resting in bed comfortably on Diprivan at 40 mics grams per kilogram per minute and fentanyl drip at 200 an hour. Tolerated PSV trial 2 hours yesterday before becoming tachypnea. Positive BM via fecal containment device 1100 cc. Yesterday according to RN was following commands. 11/28: Currently afebrile. Tolerating PSV trials 1.5 hours today for became tachypneic. Awake and alert and follows commands. Neurologically intact. Positive BM. 11/29: Tmax 99.6. Status post percutaneous tracheostomy secondary to failed extubation trials. Plan for PEG tube today. Awake and interactive the ventilator on sedation vacation. 11/30: DrAzael currently 98.8. Status post percutaneous tracheostomy Dr. Baker yesterday and PEG tube placement by Dr. Figueroa. Tube feeds will be resumed today. Otherwise appears comfortable ventilator. Arousable and follows commands on sedation vacation. 12/01: Patient becomes tachypneic on attempted CPAP, even with high pressure support. I will add by mouth Ativan to reduce IV sedation requirement. Decreasing chest tube output 12/02: Patient failed spontaneous breathing trial clinically today secondary to severe tachypnea and tachycardia. His spiking fever upto 103. Panculture blood , dose of vancomycin given. Most likely patient is getting new sepsis 12/03: Continued to spike fever up to 102. Dose of vancomycin was given yesterday. Patient tolerated CPAP for 3 hours today, remains encephalopathic though. 12/04: Patient more awake alert follows commands, tolerated CPAP but did not tolerate TPs. Abdomen significantly distended, KUB shows ileus. Continues to spike high fever. Diflucan vancomycin added by ID and continue Ancef 12/05: Abdomen remains distended, CT yesterday show intra abdominal free air. Unclear whether related to PEG or perforation. D/W with Dr. Baker, will get repeat CT with oral contrast today. Zosyn added by ID 12/06 Patient is sedated with Fentanyl and Diprivan. CT abdomen/pelvis yesterday sowed small bowel dilation ( ileus vs obstruction) 12/07 Patient remains intubated on low dose Diprivan and Fentanyl infusion however he is awake. Tolerated CPAP all day yesterday T: 100.0 last night. SB series showed distended loops of small bowel. Renal function worse today with Cr: 2.4 from 1.96. 12/08 No events overnight. On Diprivan and Fentanyl drip for sedation. T:99.9 last night. 12/09 Patient remains on ventilator via trach, sedated with Diprivan and Fentanyl. T: 101.0 last night. s/p transfusion 1unit PRBC yesterday. 12/10 Patient is sedate with Dip, Fentanyl and intubated. T: 101.6 at 8 am. 12/11: patient remains on sedation for his agitated delirium. remains febrile today. 25kg up from admission and Cr uptrending. bedside critical care echo demonstrates 2cm ivc without respiratory variation, RVSP 48 mmHg, mild RV dilation, normal LV function. by physical exam, grossly volume overloaded. Subjective 12/12: patient less agitated. following commands. still did not diurese well on intermittent bumex. BNP severely elevated. on my examination today patient with leaking trach despite multiple inflation of balloon. trach swapped out over cook exchange catheter with good seal for new trach (8.0 shiley cuffed). not making improvements. 12/13 No events overnight. On Bumex drip 1mg/hr, T: 100.8. Off sedation. 12/14 Patient is on ventilator via trach. T;100.7 last night. On Bumex drip 0.5mg /hr. Renal function worse Cr: 3.67 from 3.20 with UOP 1150ml in 24 hrs. 12/15 Patient remains on Bumex drip 0.5mg/hr however renal function is worsening with Cr: 4.27 from 3.67 and UOP: 400ml in 24 hrs. Afebrile. Tolerated CPAP all day yesterday. 12/16 Patient remains on ventilator via trach, renal function continue to decline with Cr: 4.83 from 4.72 with poor UOP. Vascath just placed for HD. Afebrile. On Bicarb drip. 12/17 Patient is on ventilator via trach s/p HD yesterday with removal 2L for another HD session today. Afebrile. Objective Vital Signs Date Time Temp Pulse Resp B/P Pulse Ox O2 Delivery O2 Flow Rate FiO2 12/17/16 12:00 35 12/17/16 11:43 98 12/17/16 10:00 104 27 116/69 12/17/16 08:00 99.0 12/17/16 07:00 Mechanical Ventilator Intake and Output 12/16/16 12/16/16 12/17/16 08:00 16:00 00:00 Intake Total 1866 ml 1720 ml Output Total 300 ml 2420 ml Balance 1566 ml -700 ml Result Diagram: 12/17/16 0840 12/17/16 0840 Imaging Last Impressions Chest X-Ray 12/14/16 0000 Signed Impressions: Service Date/Time: Wednesday, December 14, 2016 09:11 - CONCLUSION: 1. No interval change. 2. There is no pneumothorax. Rg Padilla MD FACR Chest Tube Insertion 12/09/16 0000 Signed Impressions: Service Date/Time: Friday, December 09, 2016 14:53 - CONCLUSION: Uncomplicated chest tube placement as above. Agustin Pérez MD Renal Ultrasound 12/07/16 0000 Signed Impressions: Service Date/Time: Wednesday, December 07, 2016 10:08 - CONCLUSION: Unremarkable renal ultrasound and a trace of ascites identified. Reba Banerjee MD Abdomen X-Ray 12/07/16 0000 Signed Impressions: Service Date/Time: Wednesday, December 07, 2016 16:16 - CONCLUSION: Limited study but no free air seen. Jhoan Bishop MD Small Bowel X-Ray 12/06/16 0000 Signed Impressions: Service Date/Time: Tuesday, December 06, 2016 16:55 - CONCLUSION: Distended loops of small bowel could be due to significant ileus versus partial small bowel obstruction and contrast gets into the colon at 13 hours. Reba Banerjee MD Abdomen Ultrasound 12/06/16 0000 Signed Impressions: Service Date/Time: Tuesday, December 06, 2016 11:31 - CONCLUSION: No free fluid is present. Agustin Bonner MD Abdomen/Pelvis CT 12/05/16 0000 Signed Impressions: Service Date/Time: November 23:28 - CONCLUSION: 1. Small bowel dilatation which may related to ileus or obstruction. The findings are similar to the prior exam. 2. Moderate ascites 3. Small pneumoperitoneum is present. Toribio Magana MD Brain MRI 11/21/16 0000 Signed Impressions: Service Date/Time: November 12:33 - CONCLUSION: Multifocal areas of restricted diffusion primarily in the periventricular and subcortical white matter bilaterally but also cortically based in the right frontal lobe. Findings likely represent ischemic change likely related to septic emboli given the patient's clinical history. No abscess or enhancing lesion is visualized. Agustin Bonner MD Head CT 11/17/16 0600 Signed Impressions: Service Date/Time: Thursday, November 17, 2016 10:39 - CONCLUSION: No significant change has occurred. Deven Urrutia MD Chest CT 11/16/16 0000 Signed Impressions: Service Date/Time: Wednesday, November 16, 2016 20:36 - CONCLUSION: 1. New right chest tube in the posterior superior right pleural space. There continues to be a moderate right pleural effusion primarily seen at the base. Some degree of loculation may be present inferiorly. The effusion does not layer posteriorly. There are scattered punctate areas of air within the pleural space inferiorly on the right. There is a solitary small area of air within the mild left pleural effusion. 2. Numerous irregular masses seen throughout both lungs some which are cavitary. These are nonspecific. Inflammatory masses needs be suspected. The multiplicity raises possibility of septic emboli. Agustin Price MD CT Angiography 11/13/16 1328 Signed Impressions: Service Date/Time: Sunday, November 13, 2016 15:50 - CONCLUSION: 1. Multiple cavitary lesions within both lungs with the largest measuring 9.5 cm in the right upper lobe. Differential diagnosis includes infectious and neoplastic etiologies. 2. Moderate sized right pleural effusion with adjacent compressive atelectasis and/or infiltrate. 3. Cardiomegaly and coronary artery calcifications. 4. Subcarinal mediastinal lymphadenopathy. 5. Degenerative changes throughout the thoracic spine. Jed Ponce MD Objective Remarks GENERAL: 56-year-old male, critically ill currently on ventilator via tracheostomy, SKIN: Warm and dry. Scattered skin lesions erythematous predominantly left lower extremity HEAD: Normocephalic and atraumatic. EYES: No injection, drainage. Pupils equally round and reactive around 3 mm ENT: No nasal drainage noted. Oropharynx is clear. NECK: trachea midline. Tracheostomy is clean dry and intact CARDIOVASCULAR: slightly tachycardic rate, regular rhythm. sinus by tele. RESPIRATORY: PSV 10/5/40%. equal chest rise GASTROINTESTINAL: Abdomen is distended, tympanic, no guarding MUSCULOSKELETAL: +3 pitting edema bilateral lower extremities. Multiple erythematous raised lesions on bilateral lower extremity predominantly left lower leg NEUROLOGICAL: Patient is awake on the ventilator. CAM-. RASS 0/-1 A/P Assessment and Plan NEURO/PSYCH: Metabolic encephalopathy Septic brain emboli Agitated Delirium off sedation. Hold oxycodone , Seroquel for encephalopathy melatonin 5mg po qHS Haldol 5mg iv q4h prn for breakthrough agitation EEG 11/24: Generalized encephalopathy without any significant epileptic activity. MRI brain 11/21: Ischemic changes throughout white matter likely related to septic emboli. Neuro Dr. Hernandez and has followed intermittently Thiamine 100mg PO daily RESP: Bilateral cavitary lung lesions/most likely cavitating pneumonia from staph aureus Chronic respiratory failure Large right loculated pleural effusion/empyema Left pleural effusion Right pneumothorax Continue with vent support keep sat >90%. DuoNebs every 4 hours with albuterol nebs every 2 hours. Vent bundle. Status post tracheostomy by Dr. Baker 11/29 A second Right sided 16 English chest tube placed by IR 12/09 Right-sided chest tube #28 English, Left-sided chest tube #10 English- placed 11/24/16-removed 12/02 Right thoracentesis with 1 L cloudy yellow fluid removed, fluid cell studies WBC 2,600, Patient status post pigtail catheter placement 11/14, 445 cc prior pulled out . Evaluated by Dr. Samuels/CT surgery. Per his recommendations, No indication for decortication at this time CV: Aortic valve endocarditis/large vegetation Moderate Aortic Insufficiency Congestive Heart Failure secondary to valvulopathy Sinus tachycardia Atrial fibrillation with RVR - resolved, now normal sinus rhythm Elevated troponin - likely rate dependent , Monitor HR and BP keep MAP>65mmHg, hold propranolol - 2-D echocardiogram revealed EF 55-60%. Moderate AR. CHANDNI revealed 17 mm x 17 millimeter mobile mass on aortic valve. - limited echo 11/22 Persistent vegetation - CT surgery. Recommendations no intervention at this time GI: Intra peritoneal free air. (Related to PEG or perforation). Ileus Hypoalbuminemia Moderate protein calorie malnutrition/acute Continue with tube feeds- Nepro@40ml/hr. GI is following 12/06 SB series w/ Gastrografin showed distended SB loops- ileus vs partial bowel obstruction 12/[address] abdomen/pelvis- small pneumoperitoneum, small bowel dilation ( ileus vs obstruction) small pneumoperitoneum likely related to previous PEG tube placement, PEG tube to suction. GI/Surgery is following- Dr. Baker. CT abdomen 12/04 show intra peritoneal free air. ? related to PEG or perforation. IV Protonix for GI prophylaxis. Reglan, MiraLAX twice a day for bowel regimen Prev CT of the abdomen pelvis with IV contrast revealed possible ileus., Gastric contraction at gastric duodenal junction. 2 mm renal cyst. s/p PEG placement 11/29/16 : Acute kidney injury- persistent, not improving - may have component of congestive renal disease/cardiorenal syndrome from severe AI. Monitor renal function, I/O's, electrolytes replacement as needed. Avoid nephrotoxins Off Bumex drip, Cr: 4.83 today with poor UOP., On D5W+3 amps bicarb @100ml/hr Renal- Chi to start HD today On free water to 300mL q4h.monitor sodium level, Renal US: unremarkable, renal is following- Dr. Mireles ID: Severe sepsis Persistent fever Multilobar cavitating pneumonia secondary staph aureus Staph aureus empyema Aortic valve endocarditis - Continue with abx per ID ( Zosyn, Levaquin, Diflucan, Vanco, Ancef for endocarditis)- monitor for signs of infections ( Fever, WBC). -Follow up on BC from 12/14, check sputum cx Pertinent cultures 11/13 - blood cultures 2 - staph aureus 11/13 and 11/14- pleural fluid- staph aureus 11/14- sputum- staph aureus 11/15 - blood cultures 2 -staph aureus 11/16 - Bronch samples: Staph Aureus 11/16 Sputum: Staph Aureus 11/19 - blood cultures 2 - no growth 11/23 - pleural fluid - no growth 11/24 - blood cultures 2 - no growth 11/25 - UA - negative 11/25 - sputum no growth 12/02, 12/07: Urine C tropicalis 12/07, 12/10: Sputum: Pseudomonas 12/07, 12/09 BC: NGTD 12/12 Urine: Yeast species HEME: Normocytic anemia - Monitor CBC,s/p transfusion 1u PRBC 12/08, 2units PRBC given 12/12 ENDO: SSI with accuchecks for glycemic control TSH 0.6. PROPH: - Bilateral lower extremity SCDs. Heparin SQ on hold for anemia requiring blood transfusion IV Protonix for prophylaxis LINES: - peripheral IVs, Right IJ vascath placed today Palliative care is following Level 3 Noam Calhoun MD Dec 17, 2016 12:53
--- NOTE | 2016-12-17 13:02 | HHI.CCPN ---
Subjective Remarks/Hospital Course 56-year-old male is brought to the emergency department by EMS for evaluation of generalized weakness, confusion for about 2 weeks, and also increasing shortness of breath. His oxygen saturation was 88% on room air. EMS administered breathing treatments and Solu-Medrol 125 mg 1 and placed him on nasal cannula. Patient states that he had been sick for almost 10 days, but he is a poor historian. He had a productive cough, but reports no hematemesis or weight loss. He states that it was his neighbor who made him called EMS. He has no past medical history and last time had seen a doctor was about 15 years ago. He denies any fevers but reports some night sweats and chills. He was tachycardic with a heart rate of 115 bpm, had severe leukocytosis with a white count of 35,000 with 91% neutrophils. CMP shows hyponatremia with a sodium of 126. Lactic acid is 2.4. His Chest x-ray shows large 7.7 x 7.8 cm cavitary right midlung lesion with associated right-sided pleural effusion. Subcentimeter left mid lung pulmonary nodules. Patient received 1 L normal saline bolus and Zosyn 4.5 g and Zithromax 500 mg IV and was placed on TB/ respiratory isolation. He has been being in senior living 2 years ago increasing his risk of tuberculosis. CT pulmonary angiogram negative for PE but showed multiple cavitary lesions within both lungs with the largest measuring 9.5 cm in the right upper lobe. Moderate size right pleural effusion. I evaluated the patient in the emergency department. Patient appears critically ill in moderate distress mildly tachypneic, sweating. I performed a bedside ultrasound which showed a right effusion which is large. The thoracentesis was performed and 1 L of cloudy dark pleural fluid was removed. Patient will be continued on Zosyn and Levaquin and vancomycin. ID consulted and I discussed with Dr. Steele-she recommended no empiric treatments for TB. 11/14/16: Patient seen and examined complaints of severe epigastric and periumbilical abdominal pain. Patient remains oriented to person. His white count is slightly improved from 35,000-28,9000. Na improved to 136. I have ordered a STAT CT abd/pelvis with IV contrast. Chest x-ray shows reaccumulation of right pleural effusion-fluid chemistries are pending but cell count indicates at least a parapneumonic effusion and patient will need a pigtail chest tube 11/15: Patient pulled his right-sided pigtail catheter out overnight last night. Currently nasal cannula in no acute distress. Afebrile. Continues to have a leukocytosis. 11/16: Currently on room air. Hold out his IVs reportedly overnight last night. Requesting diet. Awake and alert and following commands. 11/17: Intubated yesterday due to acute hypercapnic respiratory failure. Hypoxic post intubation requiring right chest tube placement, bronchoscopy and Flolan. Bronchoscopy revealed thick mucous plugging at bilateral right and left mainstem which were clear. Improved oxygenation over the past 12 hours. Afebrile. 11/18 Patient remains sedated with Diprivan, Fentanyl and intubated. On Vasopressin and Neosyn 120 mics. 11/19 Patient is sedated with Diprivan, Fentanyl and intubated. Afebrile. Off all pressors. Afebrile. WBC is trending down 30 today from 50. 11/20: Remains severely septic and encephalopathic even though weaned off all pressors. White count still elevated but trending down. Became extremely tachycardic and tachypneic on lowering sedation. We'll check MRI of the brain to rule out embolic infarct. Family at the bedside updated 11/21 Remains heavily sedated, remains encephalopathic. MRI brain is pending. Family is at bedside. Remains critically with resp failure severe from endocarditis, now unable to wean off the ventilator due to severe metabolic encephalopathy 11/22 No events overnight. Sedated with Diprivan, fentanyl and intubated. Afebrile. MRI brain yesterday showed ischemic changes likely related to septic emboli. 11/23: Patient remains encephalopathic, severe hyponatremia possible contributing , Na is 157 today. Currently on Precedex and fentanyl. CXR shows increasing L effusion 11/24: Patient more awake today. Follows Commands but did not tolerate spontaneous breathing trials. Had left pigtail chest tube placed yesterday 1.6 L transudative fluid removal since placement 11/25 Patient is sedated with Diprivan, Fentanyl and intubated. T:99.9 11/26 No events overnight. Sedated and intubated. Patient was on CPAP x 3 hrs yesterday then became tachypneic. 11/27: Resting in bed comfortably on Diprivan at 40 mics grams per kilogram per minute and fentanyl drip at 200 an hour. Tolerated PSV trial 2 hours yesterday before becoming tachypnea. Positive BM via fecal containment device 1100 cc. Yesterday according to RN was following commands. 11/28: Currently afebrile. Tolerating PSV trials 1.5 hours today for became tachypneic. Awake and alert and follows commands. Neurologically intact. Positive BM. 11/29: Tmax 99.6. Status post percutaneous tracheostomy secondary to failed extubation trials. Plan for PEG tube today. Awake and interactive the ventilator on sedation vacation. 11/30: DrAzael currently 98.8. Status post percutaneous tracheostomy Dr. Baker yesterday and PEG tube placement by Dr. Figueroa. Tube feeds will be resumed today. Otherwise appears comfortable ventilator. Arousable and follows commands on sedation vacation. 12/01: Patient becomes tachypneic on attempted CPAP, even with high pressure support. I will add by mouth Ativan to reduce IV sedation requirement. Decreasing chest tube output 12/02: Patient failed spontaneous breathing trial clinically today secondary to severe tachypnea and tachycardia. His spiking fever upto 103. Panculture blood , dose of vancomycin given. Most likely patient is getting new sepsis 12/03: Continued to spike fever up to 102. Dose of vancomycin was given yesterday. Patient tolerated CPAP for 3 hours today, remains encephalopathic though. 12/04: Patient more awake alert follows commands, tolerated CPAP but did not tolerate TPs. Abdomen significantly distended, KUB shows ileus. Continues to spike high fever. Diflucan vancomycin added by ID and continue Ancef 12/05: Abdomen remains distended, CT yesterday show intra abdominal free air. Unclear whether related to PEG or perforation. D/W with Dr. Baker, will get repeat CT with oral contrast today. Zosyn added by ID 12/06 Patient is sedated with Fentanyl and Diprivan. CT abdomen/pelvis yesterday sowed small bowel dilation ( ileus vs obstruction) 12/07 Patient remains intubated on low dose Diprivan and Fentanyl infusion however he is awake. Tolerated CPAP all day yesterday T: 100.0 last night. SB series showed distended loops of small bowel. Renal function worse today with Cr: 2.4 from 1.96. 12/08 No events overnight. On Diprivan and Fentanyl drip for sedation. T:99.9 last night. 12/09 Patient remains on ventilator via trach, sedated with Diprivan and Fentanyl. T: 101.0 last night. s/p transfusion 1unit PRBC yesterday. 12/10 Patient is sedate with Dip, Fentanyl and intubated. T: 101.6 at 8 am. 12/11: patient remains on sedation for his agitated delirium. remains febrile today. 25kg up from admission and Cr uptrending. bedside critical care echo demonstrates 2cm ivc without respiratory variation, RVSP 48 mmHg, mild RV dilation, normal LV function. by physical exam, grossly volume overloaded. Subjective 12/12: patient less agitated. following commands. still did not diurese well on intermittent bumex. BNP severely elevated. on my examination today patient with leaking trach despite multiple inflation of balloon. trach swapped out over cook exchange catheter with good seal for new trach (8.0 shiley cuffed). not making improvements. 12/13 No events overnight. On Bumex drip 1mg/hr, T: 100.8. Off sedation. 12/14 Patient is on ventilator via trach. T;100.7 last night. On Bumex drip 0.5mg /hr. Renal function worse Cr: 3.67 from 3.20 with UOP 1150ml in 24 hrs. 12/15 Patient remains on Bumex drip 0.5mg/hr however renal function is worsening with Cr: 4.27 from 3.67 and UOP: 400ml in 24 hrs. Afebrile. Tolerated CPAP all day yesterday. 12/16 Patient remains on ventilator via trach, renal function continue to decline with Cr: 4.83 from 4.72 with poor UOP. Vascath just placed for HD. Afebrile. On Bicarb drip. 12/17 Patient is on ventilator via trach s/p HD yesterday with removal 2L for another HD session today. Afebrile. Objective Vital Signs Date Time Temp Pulse Resp B/P Pulse Ox O2 Delivery O2 Flow Rate FiO2 12/17/16 12:00 35 12/17/16 11:43 98 12/17/16 10:00 104 27 116/69 12/17/16 08:00 99.0 12/17/16 07:00 Mechanical Ventilator Intake and Output 12/16/16 12/16/16 12/17/16 08:00 16:00 00:00 Intake Total 1866 ml 1720 ml Output Total 300 ml 2420 ml Balance 1566 ml -700 ml Result Diagram: 12/17/16 0840 12/17/16 0840 Other Results Laboratory Tests Test 12/17/16 08:40 White Blood Count 12.6 TH/MM3 Red Blood Count 2.37 MIL/MM3 Hemoglobin 7.2 GM/DL Hematocrit 21.6 % Mean Corpuscular Volume 91.1 FL Mean Corpuscular Hemoglobin 30.3 PG Mean Corpuscular Hemoglobin 33.2 % Concent Red Cell Distribution Width 17.0 % Platelet Count 177 TH/MM3 Mean Platelet Volume 9.6 FL Neutrophils (%) (Auto) 69.4 % Lymphocytes (%) (Auto) 24.9 % Monocytes (%) (Auto) 5.3 % Eosinophils (%) (Auto) 0.1 % Basophils (%) (Auto) 0.3 % Neutrophils # (Auto) 8.8 TH/MM3 Lymphocytes # (Auto) 3.1 TH/MM3 Monocytes # (Auto) 0.7 TH/MM3 Eosinophils # (Auto) 0.0 TH/MM3 Basophils # (Auto) 0.0 TH/MM3 CBC Comment DIFF FINAL Differential Comment Sodium Level 140 MEQ/L Potassium Level 3.2 MEQ/L Chloride Level 104 MEQ/L Carbon Dioxide Level 19.1 MEQ/L Anion Gap 17 MEQ/L Blood Urea Nitrogen 75 MG/DL Creatinine 4.53 MG/DL Estimat Glomerular Filtration 14 ML/MIN Rate Random Glucose 153 MG/DL Calcium Level 7.9 MG/DL Imaging Last Impressions Chest X-Ray 12/17/16 0600 Signed Impressions: Service Date/Time: Saturday, December 17, 2016 03:03 - CONCLUSION: 1. Interval placement of right internal jugular central venous line with no new pneumothorax. 2. Right-sided chest tubes remain in place with stable lucency at the right lung base. Krzysztof Mendez MD Chest Tube Insertion 12/09/16 0000 Signed Impressions: Service Date/Time: Friday, December 09, 2016 14:53 - CONCLUSION: Uncomplicated chest tube placement as above. Agustin Pérez MD Renal Ultrasound 12/07/16 0000 Signed Impressions: Service Date/Time: Wednesday, December 07, 2016 10:08 - CONCLUSION: Unremarkable renal ultrasound and a trace of ascites identified. Reba Banerjee MD Abdomen X-Ray 12/07/16 0000 Signed Impressions: Service Date/Time: Wednesday, December 07, 2016 16:16 - CONCLUSION: Limited study but no free air seen. Jhoan Bishop MD Small Bowel X-Ray 12/06/16 0000 Signed Impressions: Service Date/Time: Tuesday, December 06, 2016 16:55 - CONCLUSION: Distended loops of small bowel could be due to significant ileus versus partial small bowel obstruction and contrast gets into the colon at 13 hours. Reba Banerjee MD Abdomen Ultrasound 12/06/16 0000 Signed Impressions: Service Date/Time: Tuesday, December 06, 2016 11:31 - CONCLUSION: No free fluid is present. Agustin Bonner MD Abdomen/Pelvis CT 12/05/16 0000 Signed Impressions: Service Date/Time: November 23:28 - CONCLUSION: 1. Small bowel dilatation which may related to ileus or obstruction. The findings are similar to the prior exam. 2. Moderate ascites 3. Small pneumoperitoneum is present. Toribio Magana MD Brain MRI 11/21/16 0000 Signed Impressions: Service Date/Time: November 12:33 - CONCLUSION: Multifocal areas of restricted diffusion primarily in the periventricular and subcortical white matter bilaterally but also cortically based in the right frontal lobe. Findings likely represent ischemic change likely related to septic emboli given the patient's clinical history. No abscess or enhancing lesion is visualized. Agustin Bonner MD Head CT 11/17/16 0600 Signed Impressions: Service Date/Time: Thursday, November 17, 2016 10:39 - CONCLUSION: No significant change has occurred. Deven Urrutia MD Chest CT 11/16/16 0000 Signed Impressions: Service Date/Time: Wednesday, November 16, 2016 20:36 - CONCLUSION: 1. New right chest tube in the posterior superior right pleural space. There continues to be a moderate right pleural effusion primarily seen at the base. Some degree of loculation may be present inferiorly. The effusion does not layer posteriorly. There are scattered punctate areas of air within the pleural space inferiorly on the right. There is a solitary small area of air within the mild left pleural effusion. 2. Numerous irregular masses seen throughout both lungs some which are cavitary. These are nonspecific. Inflammatory masses needs be suspected. The multiplicity raises possibility of septic emboli. Agustin Price MD CT Angiography 11/13/16 1328 Signed Impressions: Service Date/Time: Sunday, November 13, 2016 15:50 - CONCLUSION: 1. Multiple cavitary lesions within both lungs with the largest measuring 9.5 cm in the right upper lobe. Differential diagnosis includes infectious and neoplastic etiologies. 2. Moderate sized right pleural effusion with adjacent compressive atelectasis and/or infiltrate. 3. Cardiomegaly and coronary artery calcifications. 4. Subcarinal mediastinal lymphadenopathy. 5. Degenerative changes throughout the thoracic spine. Jed Ponce MD Objective Remarks GENERAL: 56-year-old male, critically ill currently on ventilator via tracheostomy, SKIN: Warm and dry. Scattered skin lesions erythematous predominantly left lower extremity HEAD: Normocephalic and atraumatic. EYES: No injection, drainage. Pupils equally round and reactive around 3 mm ENT: No nasal drainage noted. Oropharynx is clear. NECK: trachea midline. Tracheostomy is clean dry and intact CARDIOVASCULAR: Tachycardic, nl Sq, S2 RESPIRATORY: PSV 10/5/40%. equal chest rise GASTROINTESTINAL: Abdomen is distended, tympanic, no guarding MUSCULOSKELETAL: +3 pitting edema bilateral lower extremities. Multiple erythematous raised lesions on bilateral lower extremity predominantly left lower leg NEUROLOGICAL: Patient is awake on the ventilator. CAM-. RASS 0/-1 A/P Assessment and Plan NEURO/PSYCH: Metabolic encephalopathy Septic brain emboli Agitated Delirium off sedation. Hold oxycodone , Seroquel for encephalopathy melatonin 5mg po qHS Haldol 5mg iv q4h prn for breakthrough agitation EEG 11/24: Generalized encephalopathy without any significant epileptic activity. MRI brain 11/21: Ischemic changes throughout white matter likely related to septic emboli. Neuro Dr. Hernandez and has followed intermittently Thiamine 100mg PO daily RESP: Bilateral cavitary lung lesions/most likely cavitating pneumonia from staph aureus Chronic respiratory failure Large right loculated pleural effusion/empyema Left pleural effusion Right pneumothorax Continue with vent support keep sat >90%. DuoNebs every 4 hours with albuterol nebs every 2 hours. Vent bundle. Status post tracheostomy by Dr. Baker 11/29 A second Right sided 16 Angolan chest tube placed by IR 12/09 Right-sided chest tube #28 Angolan, Left-sided chest tube #10 Angolan- placed 11/24/16-removed 12/02 Right thoracentesis with 1 L cloudy yellow fluid removed, fluid cell studies WBC 2,600, Patient status post pigtail catheter placement 11/14, 445 cc prior pulled out . Evaluated by Dr. Samuels/CT surgery. Per his recommendations, No indication for decortication at this time CV: Aortic valve endocarditis/large vegetation Moderate Aortic Insufficiency Congestive Heart Failure secondary to valvulopathy Sinus tachycardia Atrial fibrillation with RVR - resolved, now normal sinus rhythm Elevated troponin - likely rate dependent , Monitor HR and BP keep MAP>65mmHg, - 2-D echocardiogram revealed EF 55-60%. Moderate AR. CHANDNI revealed 17 mm x 17 millimeter mobile mass on aortic valve. - limited echo 11/22 Persistent vegetation - CT surgery. Recommendations no intervention at this time GI: Intra peritoneal free air. (Related to PEG or perforation). Ileus Hypoalbuminemia Moderate protein calorie malnutrition/acute TF placed on hold( Nepro@40ml/hr) check KUB abdomen r/o ileus. GI is following 12/06 SB series w/ Gastrografin showed distended SB loops- ileus vs partial bowel obstruction 12/[address] abdomen/pelvis- small pneumoperitoneum, small bowel dilation ( ileus vs obstruction) small pneumoperitoneum likely related to previous PEG tube placement, PEG tube to suction. GI/Surgery is following- Dr. Baker. CT abdomen 12/04 show intra peritoneal free air. ? related to PEG or perforation. IV Protonix for GI prophylaxis. Reglan, MiraLAX twice a day for bowel regimen Prev CT of the abdomen pelvis with IV contrast revealed possible ileus., Gastric contraction at gastric duodenal junction. 2 mm renal cyst. s/p PEG placement 11/29/16 : Acute kidney injury- HD initiated 12/16 s/p HD 12/16 with removal 2L, for another HD treatment today Monitor renal function, I/O's, electrolytes replacement as needed. Avoid nephrotoxins On D5W+3 amps bicarb @100ml/hr Cr:4.5 Renal- Jumani On free water to 300mL q4h.monitor sodium level, Renal US: unremarkable, renal is following- Dr. Mireles ID: Severe sepsis Persistent fever Multilobar cavitating pneumonia secondary staph aureus Staph aureus empyema Aortic valve endocarditis - Continue with abx per ID ( Zosyn, Levaquin, Vanco, Ancef for endocarditis)- monitor for signs of infections ( Fever, WBC). - 12/07, 12/10,12/15, sputum cx: Pseudomonas Pertinent cultures 11/13 - blood cultures 2 - staph aureus 11/13 and 11/14- pleural fluid- staph aureus 11/14- sputum- staph aureus 11/15 - blood cultures 2 -staph aureus 11/16 - Bronch samples: Staph Aureus 11/16 Sputum: Staph Aureus 11/19 - blood cultures 2 - no growth 11/23 - pleural fluid - no growth 11/24 - blood cultures 2 - no growth 11/25 - UA - negative 11/25 - sputum no growth 12/02, 12/07: Urine C tropicalis 12/07, 12/10: Sputum: Pseudomonas 12/07, 12/09 BC: NGTD 12/12 Urine: Yeast species HEME: Normocytic anemia - Monitor CBC,s/p transfusion 1u PRBC 12/08, 2units PRBC given 12/12 ENDO: SSI with accuchecks for glycemic control TSH 0.6. PROPH: - Bilateral lower extremity SCDs. Heparin SQ on hold for anemia requiring blood transfusion IV Protonix for prophylaxis LINES: - peripheral IVs, Right IJ vascath placed 12/16 Palliative care is following Level 3 Noam Calhoun MD Dec 17, 2016 13:02
--- NOTE | 2016-12-17 13:15 | HHI.IDPN ---
Note Infectious Disease Note On the vent. Not responsive. Just finished hemodialysis. Afebrile. Sputum culture has pseudomonas. D/W RN. Large vegetation on AV and moderate aortic regurg on CHANDNI. Culture of blood 11/13, 11/15, 11/16. - Staph aureus. 11/19 no growth. Culture of pleural fluid 11/14 - staph aureus. ALLERGIES NO KNOWN DRUG ALLERGIES. ANTIBIOTICS: Ancef. Pip/Tazo. Diflucan. levaquin. OBJECTIVE: Vital Signs Date Time Temp Pulse Resp B/P Pulse Ox O2 Delivery O2 Flow Rate FiO2 12/17/16 12:00 35 12/17/16 11:43 98 35 12/17/16 10:00 104 27 116/69 99 12/17/16 10:00 104 12/17/16 09:11 100 35 12/17/16 09:00 100 23 115/57 98 12/17/16 08:11 108 32 135/63 98 12/17/16 08:00 103 12/17/16 08:00 35 12/17/16 08:00 99.0 103 31 100 12/17/16 07:00 35 Mechanical Ventilator 12/17/16 07:00 106 29 126/65 98 12/17/16 06:00 106 29 127/63 100 12/17/16 06:00 87 12/17/16 05:04 98 35 12/17/16 05:00 111 31 142/70 100 12/17/16 04:00 35 12/17/16 04:00 76 12/17/16 04:00 99.0 104 18 140/62 98 12/17/16 02:00 94 12/17/16 00:06 100 35 12/17/16 00:00 98.8 93 22 105/51 100 12/17/16 00:00 94 12/17/16 00:00 35 12/16/16 23:00 98.8 93 18 107/59 100 12/16/16 22:00 89 12/16/16 21:00 100 35 12/16/16 20:00 93 12/16/16 20:00 96 Mechanical Ventilator 35 12/16/16 20:00 98.7 93 20 107/59 98 12/16/16 20:00 35 12/16/16 16:30 86 26 88/54 100 12/16/16 16:15 90 26 92/54 100 12/16/16 16:00 35 12/16/16 16:00 98.7 85 23 92/54 100 12/16/16 15:45 86 22 93/50 100 12/16/16 15:30 87 21 91/51 100 12/16/16 15:15 85 24 87/50 99 12/16/16 15:00 85 26 90/54 99 12/16/16 14:53 99 35 12/16/16 14:45 86 25 92/53 99 12/16/16 14:30 87 24 89/54 100 12/16/16 14:15 89 29 93/54 100 12/16/16 14:00 87 24 98/54 100 12/16/16 13:45 88 24 101/58 100 12/16/16 13:30 88 25 100/55 100 12/16/16 13:15 84 23 91/50 100 12/16/16 12/16/16 12/17/16 15:00 23:00 07:00 Intake Total 1720 ml 1670 ml Output Total 2420 ml 200 ml Balance -700 ml 1470 ml IV Total 970 ml 1070 ml Tube Feeding 150 ml 300 ml Other 600 ml 300 ml Output Urine Total 10 ml 0 ml Stool Total 400 ml 200 ml Chest Tube Drainage Total 10 ml Hemodialysis 2000 ml Laboratory Tests Test 12/16/16 12/17/16 04:59 08:40 White Blood Count 10.5 TH/MM3 12.6 TH/MM3 Red Blood Count 2.40 MIL/MM3 2.37 MIL/MM3 Hemoglobin 7.4 GM/DL 7.2 GM/DL Hematocrit 21.9 % 21.6 % Mean Corpuscular Volume 91.1 FL 91.1 FL Mean Corpuscular Hemoglobin 30.7 PG 30.3 PG Mean Corpuscular Hemoglobin 33.6 % 33.2 % Concent Red Cell Distribution Width 16.8 % 17.0 % Platelet Count 141 TH/MM3 177 TH/MM3 Mean Platelet Volume 9.3 FL 9.6 FL Neutrophils (%) (Auto) 67.6 % 69.4 % Lymphocytes (%) (Auto) 26.6 % 24.9 % Monocytes (%) (Auto) 5.5 % 5.3 % Eosinophils (%) (Auto) 0.1 % 0.1 % Basophils (%) (Auto) 0.2 % 0.3 % Neutrophils # (Auto) 7.1 TH/MM3 8.8 TH/MM3 Lymphocytes # (Auto) 2.8 TH/MM3 3.1 TH/MM3 Monocytes # (Auto) 0.6 TH/MM3 0.7 TH/MM3 Eosinophils # (Auto) 0.0 TH/MM3 0.0 TH/MM3 Basophils # (Auto) 0.0 TH/MM3 0.0 TH/MM3 CBC Comment DIFF FINAL DIFF FINAL Differential Comment Laboratory Tests Test 12/15/16 12/16/16 12/17/16 21:42 04:59 08:40 Sodium Level 143 MEQ/L 143 MEQ/L 140 MEQ/L Potassium Level 3.7 MEQ/L 3.4 MEQ/L 3.2 MEQ/L Chloride Level 113 MEQ/L 110 MEQ/L 104 MEQ/L Carbon Dioxide Level 16.8 MEQ/L 18.4 MEQ/L 19.1 MEQ/L Anion Gap 13 MEQ/L 15 MEQ/L 17 MEQ/L Blood Urea Nitrogen 85 MG/DL 87 MG/DL 75 MG/DL Creatinine 4.72 MG/DL 4.83 MG/DL 4.53 MG/DL Estimat Glomerular Filtration 13 ML/MIN 13 ML/MIN 14 ML/MIN Rate Random Glucose 160 MG/DL 158 MG/DL 153 MG/DL Calcium Level 7.7 MG/DL 8.0 MG/DL 7.9 MG/DL Microbiology Date/Time Procedure Status Source Growth 12/15/16 08:20 Gram Stain - Final Resulted Sputum Endotracheal 12/15/16 08:20 Sputum Culture - Preliminary Resulted Pseudomonas Aeruginosa IMAGING: Chest X-Ray 12/17/16 0600 Signed Impressions: Service Date/Time: Saturday, December 17, 2016 03:03 - CONCLUSION: 1. Interval placement of right internal jugular central venous line with no new pneumothorax. 2. Right-sided chest tubes remain in place with stable lucency at the right lung base. Krzysztof Mendez MD PHYSICAL EXAMINATION GENERAL: On the vent. HEENT: No icterus. Oropharynx: No lesions. Mucosa moist. NECK: Supple without adenopathy. LUNGS: Decreased breath sounds. HEART: Normal S1-S2 with 2/6 IRMA at LSB. ABDOMEN: More distended. Soft. Decreased bowel sounds. EXTREMITIES: No clubbing or cyanosis, 1+ edema. SKIN: No rash. NEURO: Unable to assess, not following commands. PSYCH: unable to assess. IMPRESSION 1. Endocarditis Aortic valve Staph aureus (MSSA). 2. Cavitary pulmonary lesions. Embolic./ RESEARCH INSTRUCTOR ischemic lesions suggesting embolic lesions. 3. Pneumonia/parapneumonic effusion- MSSA. - pseudomonas pneumonia. VAP. 4. Leukocytosis secondary to infection. WBC now normal. 5. Recurrent fever. ? source. Probably pulmonary. 6. Vent dependent respiratory failure. 7. Ileus. 8. Acute renal failure. 9. Fever - temp improved. Probably from pneumonia. RECOMMENDATIONS 1. Continue IV Ancef for endocarditis. Dose decreased because of renal function. 2. Continue PIP/Tazobactam. 3. Continue Levaquin. 4. Monitor temperature. 5. Follow sputum culture. Slava Garcia MD Dec 17, 2016 13:15
--- NOTE | 2016-12-17 14:35 | RADRPT ---
EXAM DATE/TIME: 12/17/2016 13:15 [facility] COMPARISON: CT ABDOMEN & PELVIS W/O CONTRAST, December 05, 2016, 23:28. ABDOMEN KUB ONLY, December 05, 2016, 15:41. INDICATIONS : R/o ileus. MEDICAL HISTORY : Sepsis SURGICAL HISTORY : peg tube ENCOUNTER: Initial ACUITY: 1 month PAIN SCORE: Non-responsive. LOCATION: Bilateral abdomen FINDINGS: 2 supine frontal views of the abdomen demonstrate distended colon and a few dilated segments of small bowel in the central abdomen. The degree of bowel dilatation is similar to the prior study. No organ omegaly is appreciated. Bones demonstrate no acute finding. CONCLUSION: Stable examination with mildly dilated small bowel similar to the prior study from December 05, 2016. Agustin Bonner MD on December 17, 2016 at 14:25 Board Certified Radiologist. This report was verified electronically.
[2016-12-17 15:02] LABS: BLOOD GAS BASE EXCESS 0.7 mmol/L (-2-2); BLOOD GAS CARBOXYHEMOGLOBIN 2.1 % (0-4); BLOOD GAS HCO3 24 mmol/L (22-26); BLOOD GAS METHEMOGLOBIN 1.5 % (0-2); BLOOD GAS O2 HGB SATURATION 93 % (90-100); BLOOD GAS OXYGEN CONTENT 10.1 Vol % (12.0-20.0); BLOOD GAS PCO2 35 mmHg (38-42); BLOOD GAS PO2 78 mmHg (61-120); BLOOD GAS TOTAL HGB 7.6 G/DL (12.0-16.0); CRITICAL VALUE NO; OXYGEN DEVICE VENTILATOR; TEMP CORR TO 98.6
[2016-12-17 15:03] LABS: FIO2 35 %
[2016-12-17 15:04] LABS: DRAW SITE LT RADIAL; NUMBER OF ARTERIAL PUNCTURES 1; STAT NO; ULNAR PULSE PRESENT
--- NOTE | 2016-12-17 15:22 | RADRPT ---
EXAM DATE/TIME: 12/17/2016 14:35 [facility] COMPARISON: CT THORAX W/O CONTRAST, November 16, 2016, 20:36. CHEST SINGLE AP, December 16, 2016, 8:42. INDICATIONS : Disconnected chest tube. MEDICAL HISTORY : Sepsis. SURGICAL HISTORY : peg tube, chest tubes ENCOUNTER: Initial ACUITY: 1 month PAIN SCORE: Non-responsive. LOCATION: Bilateral chest FINDINGS: 2 AP views of the chest demonstrate a normal-sized cardiac silhouette. Tracheostomy and right IJ line remain present. 2 right chest tubes are present. There is stable lucency in the peripheral inferior right hemithorax. There is stable left lower lobe opacity and linear opacities at the right base. CONCLUSION: Stable chest x-ray with unchanged lucency in the peripheral inferior right hemithorax likely represen ting air within the previously documented cavitary lesion in this region. Otherwise, no pneumothorax is identified. Agustin Bonner MD on December 17, 2016 at 15:15 Board Certified Radiologist. This report was verified electronically.
--- NOTE | 2016-12-17 18:30 | HHI.NPPN ---
Subjective General Problems: Anemia, Edema, Hypotension Renal Failure: Acute History of Present Illness This is 56 years old male, with Resp. failure, post tracheostomy, develop MENDY. Additional Remarks Patient remain on the vent. unresponsive, not in distress. Objective Data Data 12/16/16 12/17/16 19:00 07:00 Intake Total 1720 ml 1670 ml Output Total 2420 ml 200 ml Balance -700 ml 1470 ml IV Total 970 ml 1070 ml Tube Feeding 150 ml 300 ml Other 600 ml 300 ml Output Urine Total 10 ml 0 ml Stool Total 400 ml 200 ml Chest Tube Drainage Total 10 ml Hemodialysis 2000 ml Vital Signs Date Time Temp Pulse Resp B/P Pulse Ox O2 Delivery O2 Flow Rate FiO2 12/17/16 16:00 35 12/17/16 15:45 98 35 12/17/16 13:00 104 33 107/53 98 12/17/16 12:45 102 22 100/54 98 12/17/16 12:30 103 30 113/53 97 12/17/16 12:16 107 33 122/58 98 12/17/16 12:00 35 12/17/16 12:00 109 12/17/16 12:00 98.0 105 29 110/56 99 12/17/16 11:45 104 30 107/53 98 12/17/16 11:43 98 35 12/17/16 11:30 101 26 102/53 98 12/17/16 11:16 108 34 132/66 99 12/17/16 11:00 105 29 119/60 99 12/17/16 10:45 103 21 119/57 99 12/17/16 10:30 102 30 112/53 99 12/17/16 10:15 103 27 116/58 98 12/17/16 10:00 104 27 116/69 99 12/17/16 10:00 104 12/17/16 10:00 104 27 116/69 99 12/17/16 09:11 100 35 12/17/16 09:00 100 23 115/57 98 12/17/16 08:11 108 32 135/63 98 12/17/16 08:00 103 12/17/16 08:00 35 12/17/16 08:00 99.0 103 31 100 12/17/16 07:00 35 Mechanical Ventilator 12/17/16 07:00 106 29 126/65 98 12/17/16 06:00 106 29 127/63 100 12/17/16 06:00 87 12/17/16 05:04 98 35 12/17/16 05:00 111 31 142/70 100 12/17/16 04:00 35 12/17/16 04:00 76 12/17/16 04:00 99.0 104 18 140/62 98 12/17/16 02:00 94 12/17/16 00:06 100 35 12/17/16 00:00 98.8 93 22 105/51 100 12/17/16 00:00 94 12/17/16 00:00 35 12/16/16 23:00 98.8 93 18 107/59 100 12/16/16 22:00 89 12/16/16 21:00 100 35 12/16/16 20:00 93 12/16/16 20:00 96 Mechanical Ventilator 35 12/16/16 20:00 98.7 93 20 107/59 98 12/16/16 20:00 35 -: 12/17/16 0840 12/17/16 0840 Physical Exam General Appearance: Anxious Appearance Remarks On the vent. with Trach. Eyes Eye Exam: Pupils Equal Throat Throat Exam: Oral Mucosa Avis & Moist Neck Neck Exam: Neck Supple Pulmonary Resp Exam: No Distress, Crackles, Rhonchi, Decreased Bases, Diminished Breath Sounds Cardiology CV Exam: Tachycardia Gastrointestinal/Abdomen GI Exam: Soft, Non-Tender, Bowel Sounds Present, Distended Extremeties Extremities Exam: Moderate Edema, Pitting Edema, Dependent Edema Neurologic Neuro Exam: Obtunded, Unresponsive Assessment/Plan Assessment Summary: MENDY/Acute Renal Failure, Hypotension Problem List: (1) Leukocytosis (2) Acute respiratory insufficiency (3) Sepsis (4) multiple pulmonary cavitary lesions (5) severe encephalopathy, likely due to sepsis and multiple embolic infarctions (6) Acute kidney injury 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 Bumex infusion decreased. Urine out put declined BP low. Started on HD as Creatinine continue to increase. HD done today and 3 liters removed. BP is stable. D/C IVF, follow the urine out put and BMP. HD as needed. Problem Qualifiers (1) Sepsis: Qualified Code: A41.9 - Sepsis, due to unspecified organism Otoniel Mireles MD Dec 17, 2016 18:30
--- NOTE | 2016-12-17 19:19 | HHI.PR ---
Subjective Remarks Patient was intubated last night for acute hypoxemic resp failure and a right chest tube was placed for right hydroPTX in addition patient underwent bronch with BAL ( mucous plugs b/l suctioned to clear). MRI brain multifocal area of septic emboli/infarct Tolerates TF on Oxycodone and Seraquel has worsening renal functions and Acidosis Had HD today On Vent, PRVC mode Had vomiting PEG tube to suction. Objective Vital Signs Vital Signs Date Time Temp Pulse Resp B/P Pulse Ox O2 Delivery O2 Flow Rate FiO2 12/17/16 18:00 111 43 143/60 100 12/17/16 18:00 111 12/17/16 17:30 113 39 132/62 100 12/17/16 17:00 111 38 133/65 98 12/17/16 16:30 112 42 142/67 100 12/17/16 16:00 99.0 111 35 120/56 99 12/17/16 16:00 112 12/17/16 16:00 35 12/17/16 15:45 98 35 12/17/16 15:30 111 37 131/62 99 12/17/16 15:00 110 38 119/86 100 12/17/16 14:30 109 35 136/62 99 12/17/16 14:00 112 12 154/104 98 12/17/16 14:00 111 12/17/16 13:00 104 33 107/53 98 12/17/16 12:45 102 22 100/54 98 12/17/16 12:30 103 30 113/53 97 12/17/16 12:16 107 33 122/58 98 12/17/16 12:00 35 12/17/16 12:00 109 12/17/16 12:00 98.0 105 29 110/56 99 12/17/16 11:45 104 30 107/53 98 12/17/16 11:43 98 35 12/17/16 11:30 101 26 102/53 98 12/17/16 11:16 108 34 132/66 99 12/17/16 11:00 105 29 119/60 99 12/17/16 10:45 103 21 119/57 99 12/17/16 10:30 102 30 112/53 99 12/17/16 10:15 103 27 116/58 98 12/17/16 10:00 104 27 116/69 99 12/17/16 10:00 104 12/17/16 10:00 104 27 116/69 99 12/17/16 09:11 100 35 12/17/16 09:00 100 23 115/57 98 12/17/16 08:11 108 32 135/63 98 12/17/16 08:00 103 12/17/16 08:00 35 12/17/16 08:00 99.0 103 31 100 12/17/16 07:00 35 Mechanical Ventilator 12/17/16 07:00 106 29 126/65 98 12/17/16 06:00 106 29 127/63 100 12/17/16 06:00 87 12/17/16 05:04 98 35 12/17/16 05:00 111 31 142/70 100 12/17/16 04:00 35 12/17/16 04:00 76 12/17/16 04:00 99.0 104 18 140/62 98 12/17/16 02:00 94 12/17/16 00:06 100 35 12/17/16 00:00 98.8 93 22 105/51 100 12/17/16 00:00 94 12/17/16 00:00 35 12/16/16 23:00 98.8 93 18 107/59 100 12/16/16 22:00 89 12/16/16 21:00 100 35 12/16/16 20:00 93 12/16/16 20:00 96 Mechanical Ventilator 35 12/16/16 20:00 98.7 93 20 107/59 98 12/16/16 20:00 35 I/O 12/16/16 12/16/16 12/16/16 12/17/16 12/17/16 12/17/16 07:00 15:00 23:00 07:00 15:00 23:00 Intake Total 1866 ml 1720 ml 1670 ml 1435 ml Output Total 300 ml 2420 ml 200 ml 3300 ml Balance 1566 ml -700 ml 1470 ml -1865 ml IV Total 922 ml 970 ml 1070 ml 1235 ml Tube Feeding 344 ml 150 ml 300 ml Albumin 200 ml Other 600 ml 600 ml 300 ml Output Urine Total 0 ml 10 ml 0 ml Stool Total 300 ml 400 ml 200 ml 300 ml Chest Tube Drainage Total 0 ml 10 ml Hemodialysis 2000 ml 3000 ml # Bowel Movements 1 Result Diagram: 12/17/16 0840 12/17/16 0840 Objective Remarks GENERAL: Patient is 56 yo critically ill intubated , sedated and on pressors. SKIN: Warm and dry. HEAD: Normocephalic. EYES: No scleral icterus. No injection or drainage. NECK: Supple, trachea midline. No JVD or lymphadenopathy. CARDIOVASCULAR: Regular rate and rhythm without murmurs, gallops, or rubs. RESPIRATORY: Breath sounds equal bilaterally. No accessory muscle use. GASTROINTESTINAL: Abdomen soft, non-tender, distended., tympanic MUSCULOSKELETAL: No cyanosis, or edema. Neuro: Sedated and intubated A/P Assessment and Plan 1VDRF 2)Septic shock 3)Staph Aureus bacteremia 4)Empyema 6)Endocarditis involving AV 7)Leucocytosis 8)Cavitary pulm masses 2nd staph Aureus 9)Right hydroPTX 10) renal failure PLAN: Continue with vent support keep sat >92% Bronchodilators, ICU vent bundle, on stress dose steroids- Abx per ID Chest tube to suction Sedation with oxycodone and Seraquel Vent support TF 40 cc/hr Cont Vent Family considering DNR in Emmett Caballero MD Dec 17, 2016 19:19
[2016-12-17] MEDS: MELATONIN 5 MG TAB PO SCH (21:00)
[2016-12-18] VITALS (23 sets, daily range): BP systolic 106–117; BP diastolic 51–60; PULSE 86–109; RESP 18–37; TEMP 98.2–102.2; O2SAT 96–100
[2016-12-18] MEDS: ALBUMIN HUMAN 25% 25 GM/100 ML BAGP IV SCH ×3 (01:00→16:41)
[2016-12-18] MEDS: RESP: ALBUTEROL 2.5 MG/3 ML NEB (PRN) INH (03:06)
[2016-12-18] MEDS: CHLORHEXIDINE GLUCONATE 2 % 1 PACK (2 CLOTHS) TOP SCH (04:00)
[2016-12-18 07:49] LABS: BASOPHIL % 0.1 % (0.0-2.0); EOSINOPHIL % 0.1 % (0.0-4.0); LYMPH % 25.1 % (9.0-44.0); LYMPHOCYTE # 3.2 TH/MM3 (1.0-4.8); MEAN CORPUSCULAR HEMOGLOBIN 29.7 PG (27.0-34.0); MEAN CORPUSCULAR HGB CONC 33.3 % (32.0-36.0); MONO % 4.3 % (0.0-8.0); NEUT % 70.4 % (16.0-70.0); PLATELET COUNT 192 TH/MM3 (150-450); RED BLOOD COUNT 2.14 MIL/MM3 (4.50-5.90); WHITE BLOOD COUNT 12.8 TH/MM3 (4.0-11.0)
[2016-12-18 07:56] LABS: HEMO FLAGS DIFF FINAL
[2016-12-18 07:59] LABS: HEMATOCRIT 19.1 % (39.0-51.0)
[2016-12-18] MEDS: FREE WATER G-TUBE SCH ×3 (08:00→20:00)
[2016-12-18 08:09] LABS: BICARBONATE 24.6 MEQ/L (21.0-32.0)
[2016-12-18 08:30] LABS: POTASSIUM 2.7 MEQ/L (3.5-5.1)
[2016-12-18] MEDS: PANTOPRAZOLE SODIUM 40 MG VIAL IV SCH ×2 (09:00→22:07)
[2016-12-18] MEDS: SODIUM CHLORIDE 0.9% FLUSH 10 ML FLUSH IV FLUSH SCH ×2 (09:00→21:56)
--- NOTE | 2016-12-18 09:06 | HHI.CCPN ---
Subjective Remarks/Hospital Course 56-year-old male is brought to the emergency department by EMS for evaluation of generalized weakness, confusion for about 2 weeks, and also increasing shortness of breath. His oxygen saturation was 88% on room air. EMS administered breathing treatments and Solu-Medrol 125 mg 1 and placed him on nasal cannula. Patient states that he had been sick for almost 10 days, but he is a poor historian. He had a productive cough, but reports no hematemesis or weight loss. He states that it was his neighbor who made him called EMS. He has no past medical history and last time had seen a doctor was about 15 years ago. He denies any fevers but reports some night sweats and chills. He was tachycardic with a heart rate of 115 bpm, had severe leukocytosis with a white count of 35,000 with 91% neutrophils. CMP shows hyponatremia with a sodium of 126. Lactic acid is 2.4. His Chest x-ray shows large 7.7 x 7.8 cm cavitary right midlung lesion with associated right-sided pleural effusion. Subcentimeter left mid lung pulmonary nodules. Patient received 1 L normal saline bolus and Zosyn 4.5 g and Zithromax 500 mg IV and was placed on TB/ respiratory isolation. He has been being in correction 2 years ago increasing his risk of tuberculosis. CT pulmonary angiogram negative for PE but showed multiple cavitary lesions within both lungs with the largest measuring 9.5 cm in the right upper lobe. Moderate size right pleural effusion. I evaluated the patient in the emergency department. Patient appears critically ill in moderate distress mildly tachypneic, sweating. I performed a bedside ultrasound which showed a right effusion which is large. The thoracentesis was performed and 1 L of cloudy dark pleural fluid was removed. Patient will be continued on Zosyn and Levaquin and vancomycin. ID consulted and I discussed with Dr. Steele-she recommended no empiric treatments for TB. 11/14/16: Patient seen and examined complaints of severe epigastric and periumbilical abdominal pain. Patient remains oriented to person. His white count is slightly improved from 35,000-28,9000. Na improved to 136. I have ordered a STAT CT abd/pelvis with IV contrast. Chest x-ray shows reaccumulation of right pleural effusion-fluid chemistries are pending but cell count indicates at least a parapneumonic effusion and patient will need a pigtail chest tube 11/15: Patient pulled his right-sided pigtail catheter out overnight last night. Currently nasal cannula in no acute distress. Afebrile. Continues to have a leukocytosis. 11/16: Currently on room air. Hold out his IVs reportedly overnight last night. Requesting diet. Awake and alert and following commands. 11/17: Intubated yesterday due to acute hypercapnic respiratory failure. Hypoxic post intubation requiring right chest tube placement, bronchoscopy and Flolan. Bronchoscopy revealed thick mucous plugging at bilateral right and left mainstem which were clear. Improved oxygenation over the past 12 hours. Afebrile. 11/18 Patient remains sedated with Diprivan, Fentanyl and intubated. On Vasopressin and Neosyn 120 mics. 11/19 Patient is sedated with Diprivan, Fentanyl and intubated. Afebrile. Off all pressors. Afebrile. WBC is trending down 30 today from 50. 11/20: Remains severely septic and encephalopathic even though weaned off all pressors. White count still elevated but trending down. Became extremely tachycardic and tachypneic on lowering sedation. We'll check MRI of the brain to rule out embolic infarct. Family at the bedside updated 11/21 Remains heavily sedated, remains encephalopathic. MRI brain is pending. Family is at bedside. Remains critically with resp failure severe from endocarditis, now unable to wean off the ventilator due to severe metabolic encephalopathy 11/22 No events overnight. Sedated with Diprivan, fentanyl and intubated. Afebrile. MRI brain yesterday showed ischemic changes likely related to septic emboli. 11/23: Patient remains encephalopathic, severe hyponatremia possible contributing , Na is 157 today. Currently on Precedex and fentanyl. CXR shows increasing L effusion 11/24: Patient more awake today. Follows Commands but did not tolerate spontaneous breathing trials. Had left pigtail chest tube placed yesterday 1.6 L transudative fluid removal since placement 11/25 Patient is sedated with Diprivan, Fentanyl and intubated. T:99.9 11/26 No events overnight. Sedated and intubated. Patient was on CPAP x 3 hrs yesterday then became tachypneic. 11/27: Resting in bed comfortably on Diprivan at 40 mics grams per kilogram per minute and fentanyl drip at 200 an hour. Tolerated PSV trial 2 hours yesterday before becoming tachypnea. Positive BM via fecal containment device 1100 cc. Yesterday according to RN was following commands. 11/28: Currently afebrile. Tolerating PSV trials 1.5 hours today for became tachypneic. Awake and alert and follows commands. Neurologically intact. Positive BM. 11/29: Tmax 99.6. Status post percutaneous tracheostomy secondary to failed extubation trials. Plan for PEG tube today. Awake and interactive the ventilator on sedation vacation. 11/30: DrAzael currently 98.8. Status post percutaneous tracheostomy Dr. Baker yesterday and PEG tube placement by Dr. Figueroa. Tube feeds will be resumed today. Otherwise appears comfortable ventilator. Arousable and follows commands on sedation vacation. 12/01: Patient becomes tachypneic on attempted CPAP, even with high pressure support. I will add by mouth Ativan to reduce IV sedation requirement. Decreasing chest tube output 12/02: Patient failed spontaneous breathing trial clinically today secondary to severe tachypnea and tachycardia. His spiking fever upto 103. Panculture blood , dose of vancomycin given. Most likely patient is getting new sepsis 12/03: Continued to spike fever up to 102. Dose of vancomycin was given yesterday. Patient tolerated CPAP for 3 hours today, remains encephalopathic though. 12/04: Patient more awake alert follows commands, tolerated CPAP but did not tolerate TPs. Abdomen significantly distended, KUB shows ileus. Continues to spike high fever. Diflucan vancomycin added by ID and continue Ancef 12/05: Abdomen remains distended, CT yesterday show intra abdominal free air. Unclear whether related to PEG or perforation. D/W with Dr. Baker, will get repeat CT with oral contrast today. Zosyn added by ID 12/06 Patient is sedated with Fentanyl and Diprivan. CT abdomen/pelvis yesterday sowed small bowel dilation ( ileus vs obstruction) 12/07 Patient remains intubated on low dose Diprivan and Fentanyl infusion however he is awake. Tolerated CPAP all day yesterday T: 100.0 last night. SB series showed distended loops of small bowel. Renal function worse today with Cr: 2.4 from 1.96. 12/08 No events overnight. On Diprivan and Fentanyl drip for sedation. T:99.9 last night. 12/09 Patient remains on ventilator via trach, sedated with Diprivan and Fentanyl. T: 101.0 last night. s/p transfusion 1unit PRBC yesterday. 12/10 Patient is sedate with Dip, Fentanyl and intubated. T: 101.6 at 8 am. 12/11: patient remains on sedation for his agitated delirium. remains febrile today. 25kg up from admission and Cr uptrending. bedside critical care echo demonstrates 2cm ivc without respiratory variation, RVSP 48 mmHg, mild RV dilation, normal LV function. by physical exam, grossly volume overloaded. Subjective 12/12: patient less agitated. following commands. still did not diurese well on intermittent bumex. BNP severely elevated. on my examination today patient with leaking trach despite multiple inflation of balloon. trach swapped out over cook exchange catheter with good seal for new trach (8.0 shiley cuffed). not making improvements. 12/13 No events overnight. On Bumex drip 1mg/hr, T: 100.8. Off sedation. 12/14 Patient is on ventilator via trach. T;100.7 last night. On Bumex drip 0.5mg /hr. Renal function worse Cr: 3.67 from 3.20 with UOP 1150ml in 24 hrs. 12/15 Patient remains on Bumex drip 0.5mg/hr however renal function is worsening with Cr: 4.27 from 3.67 and UOP: 400ml in 24 hrs. Afebrile. Tolerated CPAP all day yesterday. 12/16 Patient remains on ventilator via trach, renal function continue to decline with Cr: 4.83 from 4.72 with poor UOP. Vascath just placed for HD. Afebrile. On Bicarb drip. 12/17 Patient is on ventilator via trach s/p HD yesterday with removal 2L for another HD session today. Afebrile. 12/18 No events overnight. Spiked fever with Tmax: 103.1 last night. s/p HD yesterday with 3L removal. Objective Vital Signs Date Time Temp Pulse Resp B/P Pulse Ox O2 Delivery O2 Flow Rate FiO2 12/18/16 08:36 98 35 12/18/16 06:00 103 12/18/16 04:00 100.5 18 110/53 12/17/16 20:00 Mechanical Ventilator Intake and Output 12/17/16 12/17/16 12/18/16 08:00 16:00 00:00 Intake Total 1670 ml 1435 ml 150 ml Output Total 200 ml 3300 ml 350 ml Balance 1470 ml -1865 ml -200 ml Result Diagram: 12/18/16 0630 12/18/16 0630 Other Results Laboratory Tests Test 12/17/16 12/18/16 14:47 06:30 Blood Gas Puncture Site LT RADIAL Blood Gas Patient Temperature 98.6 Blood Gas HCO3 24 mmol/L Blood Gas Base Excess 0.7 mmol/L Blood Gas Oxygen Saturation 93 % Arterial Blood pH 7.46 Arterial Blood Partial 35 mmHg Pressure CO2 Arterial Blood Partial 78 mmHg Pressure O2 Arterial Blood Oxygen Content 10.1 Vol % Arterial Blood 2.1 % Carboxyhemoglobin Arterial Blood Methemoglobin 1.5 % Blood Gas Hemoglobin 7.6 G/DL Oxygen Delivery Device VENTILATOR Blood Gas Ventilator Setting Blood Gas Inspired Oxygen 35 % White Blood Count 12.8 TH/MM3 Red Blood Count 2.14 MIL/MM3 Hemoglobin 6.4 GM/DL Hematocrit 19.1 % Mean Corpuscular Volume 89.0 FL Mean Corpuscular Hemoglobin 29.7 PG Mean Corpuscular Hemoglobin 33.3 % Concent Red Cell Distribution Width 17.0 % Platelet Count 192 TH/MM3 Mean Platelet Volume 8.8 FL Neutrophils (%) (Auto) 70.4 % Lymphocytes (%) (Auto) 25.1 % Monocytes (%) (Auto) 4.3 % Eosinophils (%) (Auto) 0.1 % Basophils (%) (Auto) 0.1 % Neutrophils # (Auto) 9.0 TH/MM3 Lymphocytes # (Auto) 3.2 TH/MM3 Monocytes # (Auto) 0.6 TH/MM3 Eosinophils # (Auto) 0.0 TH/MM3 Basophils # (Auto) 0.0 TH/MM3 CBC Comment DIFF FINAL Differential Comment Sodium Level 143 MEQ/L Potassium Level 2.7 MEQ/L Chloride Level 102 MEQ/L Carbon Dioxide Level 24.6 MEQ/L Anion Gap 16 MEQ/L Blood Urea Nitrogen 64 MG/DL Creatinine 4.33 MG/DL Estimat Glomerular Filtration 14 ML/MIN Rate Random Glucose 99 MG/DL Calcium Level 7.9 MG/DL Imaging Last Impressions Chest X-Ray 12/17/16 0600 Signed Impressions: Service Date/Time: Saturday, December 17, 2016 03:03 - CONCLUSION: 1. Interval placement of right internal jugular central venous line with no new pneumothorax. 2. Right-sided chest tubes remain in place with stable lucency at the right lung base. Krzysztof Mendez MD Abdomen X-Ray 12/17/16 0000 Signed Impressions: Service Date/Time: Saturday, December 17, 2016 13:15 - CONCLUSION: Stable examination with mildly dilated small bowel similar to the prior study from December 05, 2016. Agustin Bonner MD Chest Tube Insertion 12/09/16 0000 Signed Impressions: Service Date/Time: Friday, December 09, 2016 14:53 - CONCLUSION: Uncomplicated chest tube placement as above. Agustin Pérez MD Renal Ultrasound 12/07/16 0000 Signed Impressions: Service Date/Time: Wednesday, December 07, 2016 10:08 - CONCLUSION: Unremarkable renal ultrasound and a trace of ascites identified. Reba Banerjee MD Small Bowel X-Ray 12/06/16 0000 Signed Impressions: Service Date/Time: Tuesday, December 06, 2016 16:55 - CONCLUSION: Distended loops of small bowel could be due to significant ileus versus partial small bowel obstruction and contrast gets into the colon at 13 hours. Reba Banerjee MD Abdomen Ultrasound 12/06/16 0000 Signed Impressions: Service Date/Time: Tuesday, December 06, 2016 11:31 - CONCLUSION: No free fluid is present. Agustin Bonner MD Abdomen/Pelvis CT 12/05/16 0000 Signed Impressions: Service Date/Time: November 23:28 - CONCLUSION: 1. Small bowel dilatation which may related to ileus or obstruction. The findings are similar to the prior exam. 2. Moderate ascites 3. Small pneumoperitoneum is present. Toribio Magana MD Brain MRI 11/21/16 0000 Signed Impressions: Service Date/Time: November 12:33 - CONCLUSION: Multifocal areas of restricted diffusion primarily in the periventricular and subcortical white matter bilaterally but also cortically based in the right frontal lobe. Findings likely represent ischemic change likely related to septic emboli given the patient's clinical history. No abscess or enhancing lesion is visualized. Agustin Bonner MD Head CT 11/17/16 0600 Signed Impressions: Service Date/Time: Thursday, November 17, 2016 10:39 - CONCLUSION: No significant change has occurred. Deven Urrutia MD Chest CT 11/16/16 0000 Signed Impressions: Service Date/Time: Wednesday, November 16, 2016 20:36 - CONCLUSION: 1. New right chest tube in the posterior superior right pleural space. There continues to be a moderate right pleural effusion primarily seen at the base. Some degree of loculation may be present inferiorly. The effusion does not layer posteriorly. There are scattered punctate areas of air within the pleural space inferiorly on the right. There is a solitary small area of air within the mild left pleural effusion. 2. Numerous irregular masses seen throughout both lungs some which are cavitary. These are nonspecific. Inflammatory masses needs be suspected. The multiplicity raises possibility of septic emboli. Agustin Price MD CT Angiography 11/13/16 1328 Signed Impressions: Service Date/Time: Sunday, November 13, 2016 15:50 - CONCLUSION: 1. Multiple cavitary lesions within both lungs with the largest measuring 9.5 cm in the right upper lobe. Differential diagnosis includes infectious and neoplastic etiologies. 2. Moderate sized right pleural effusion with adjacent compressive atelectasis and/or infiltrate. 3. Cardiomegaly and coronary artery calcifications. 4. Subcarinal mediastinal lymphadenopathy. 5. Degenerative changes throughout the thoracic spine. Jed Ponce MD Objective Remarks GENERAL: 56-year-old male, critically ill currently on ventilator via tracheostomy, SKIN: Warm and dry. Scattered skin lesions erythematous predominantly left lower extremity HEAD: Normocephalic and atraumatic. EYES: No injection, drainage. Pupils equally round and reactive around 3 mm ENT: No nasal drainage noted. Oropharynx is clear. NECK: trachea midline. Tracheostomy is clean dry and intact CARDIOVASCULAR: Tachycardic, nl Sq, S2 RESPIRATORY: PSV 10/5/40%. equal chest rise GASTROINTESTINAL: Abdomen is distended, tympanic, no guarding MUSCULOSKELETAL: +3 pitting edema bilateral lower extremities. Multiple erythematous raised lesions on bilateral lower extremity predominantly left lower leg NEUROLOGICAL: Patient is awake on the ventilator. CAM-. RASS 0/-1 A/P Assessment and Plan NEURO/PSYCH: Metabolic encephalopathy Septic brain emboli Agitated Delirium off sedation. Hold oxycodone , Seroquel for encephalopathy melatonin 5mg po qHS Haldol 5mg iv q4h prn for breakthrough agitation EEG 11/24: Generalized encephalopathy without any significant epileptic activity. MRI brain 11/21: Ischemic changes throughout white matter likely related to septic emboli. Neuro Dr. Hernandez and has followed intermittently Thiamine 100mg PO daily RESP: Bilateral cavitary lung lesions/most likely cavitating pneumonia from staph aureus Chronic respiratory failure Large right loculated pleural effusion/empyema Left pleural effusion Right pneumothorax Continue with vent support keep sat >90%. DuoNebs every 4 hours with albuterol nebs every 2 hours. Vent bundle. Status post tracheostomy by Dr. Baker 11/29 A second Right sided 16 Malagasy chest tube placed by IR 12/09 Right-sided chest tube #28 Malagasy, Left-sided chest tube #10 Malagasy- placed 11/24/16-removed 12/02 Right thoracentesis with 1 L cloudy yellow fluid removed, fluid cell studies WBC 2,600, Patient status post pigtail catheter placement 11/14, 445 cc prior pulled out . Evaluated by Dr. Samuels/CT surgery. Per his recommendations, No indication for decortication at this time CV: Aortic valve endocarditis/large vegetation Moderate Aortic Insufficiency Congestive Heart Failure secondary to valvulopathy Sinus tachycardia Atrial fibrillation with RVR - resolved, now normal sinus rhythm Elevated troponin - likely rate dependent , Monitor HR and BP keep MAP>65mmHg, - 2-D echocardiogram revealed EF 55-60%. Moderate AR. CHANDNI revealed 17 mm x 17 millimeter mobile mass on aortic valve. - limited echo 11/22 Persistent vegetation - CT surgery. Recommendations no intervention at this time GI: Intra peritoneal free air. (Related to PEG or perforation). Ileus Hypoalbuminemia Moderate protein calorie malnutrition/acute TF on hold( Nepro@40ml/hr) 12/17 KUB abdomen: Mildly dilated small bowel. GI is following PEG tube to LIMWS -gastric output 250ml in 24hrs 12/06 SB series w/ Gastrografin showed distended SB loops- ileus vs partial bowel obstruction 12/[address] abdomen/pelvis- small pneumoperitoneum, small bowel dilation ( ileus vs obstruction) small pneumoperitoneum likely related to previous PEG tube placement, PEG tube to suction. GI/Surgery is following- Dr. Baker. CT abdomen 12/04 show intra peritoneal free air. ? related to PEG or perforation. IV Protonix for GI prophylaxis. Reglan, MiraLAX twice a day for bowel regimen Prev CT of the abdomen pelvis with IV contrast revealed possible ileus., Gastric contraction at gastric duodenal junction. 2 mm renal cyst. s/p PEG placement 11/29/16 : Acute kidney injury- HD initiated 12/16 s/p HD 12/16 with removal 2L, HD 12/17 with 3L removal. Monitor renal function, I/O's, electrolytes replacement as needed. Avoid nephrotoxins Cr:4.33, give KCL 40meqIV x1 Renal- Chi On free water to 300mL q4h.monitor sodium level, Renal US: unremarkable, renal is following- Dr. Mireles ID: Severe sepsis Persistent fever Multilobar cavitating pneumonia secondary staph aureus Staph aureus empyema Aortic valve endocarditis - Continue with abx per ID ( Zosyn, Levaquin, Vanco, Ancef for endocarditis)- monitor for signs of infections ( Fever, WBC). - 12/07, 12/10,12/15, sputum cx: Pseudomonas - 12/18 BC x 2 sets today Pertinent cultures 11/13 - blood cultures 2 - staph aureus 11/13 and 11/14- pleural fluid- staph aureus 11/14- sputum- staph aureus 11/15 - blood cultures 2 -staph aureus 11/16 - Bronch samples: Staph Aureus 11/16 Sputum: Staph Aureus 11/19 - blood cultures 2 - no growth 11/23 - pleural fluid - no growth 11/24 - blood cultures 2 - no growth 11/25 - UA - negative 11/25 - sputum no growth 12/02, 12/07: Urine C tropicalis 12/07, 12/10: Sputum: Pseudomonas 12/07, 12/09 BC: NGTD 12/12 Urine: C. Tropicalis HEME: Normocytic anemia - Monitor CBC,s/p transfusion 1u PRBC 12/08, 2units PRBC given 12/12 Transfuse 2unit PRBC today for Hgb 6.4 ENDO: SSI with accuchecks for glycemic control TSH 0.6. PROPH: - Bilateral lower extremity SCDs. Heparin SQ on hold for anemia requiring blood transfusion IV Protonix for prophylaxis LINES: - peripheral IVs, Right IJ vascath placed 12/16 Palliative care is following Level 3 Noam Calhoun MD Dec 18, 2016 09:06
[2016-12-18] MEDS: PIPERACIL-TAZO 3.375 GM PREMIX 50 ML IV SCH ×3 (09:18→22:07)
[2016-12-18] MEDS: MULTIVITAMIN TAB PO SCH (09:19)
[2016-12-18] MEDS: FOLIC ACID 1 MG TAB PO SCH (09:19)
[2016-12-18] MEDS: THIAMINE HCL 100 MG TAB PO SCH (09:19)
[2016-12-18] MEDS: INSULIN ASPART SUPPLEMENTAL SCALE SQ SCH ×3 (11:00→21:56)
[2016-12-18] MEDS: POTASSIUM CHLOR 20 MEQ PREMIX 100 ML IV SCH ×2 (11:51→13:18)
[2016-12-18] MEDS: LEVOFLOXACIN 250 MG PREMIX INJ 50 ML IV SCH (11:52)
--- NOTE | 2016-12-18 12:22 | HHI.HCPN ---
Reason for visit a. To assist with evaluation and management of symptoms including: dyspnea b. To assist medical decision maker(s) with: better understanding of current medical conditions; weighing benefits/burdens of medical treatment options; making medical treatment decisions. . Subjective/Interval History Remains on ventilator, and sedated. Continues to have intermittent fever, and remains profoundly encephalopathic. He is in oliguric renal failure, and has been getting dialyzed the past 3 or 4 days. Lengthy discussion with family regarding goals, and they want to transition to comfort care in the upcoming days or days, with eventual withdrawal of life support, see below. . Family/friend interactions Met with patient's proxy decision-maker/mother Nellie Ying, . Orquidea Salasil , and longtime close friend Keyur Her. They all agree that the patient is not getting better and is in fact worsening now with multisystem organ failure. They do not believe that he would want to be kept alive this way indefinitely , and they want to focus more on comfort. They are requesting DNR status, and initiation of scheduled opiates to make sure he is not in pain, and they will likely proceed to withdrawal of life support and cessation of dialysis in the upcoming days or days (allowing time for other family to visit). . Advance Directives Living Will: Never completed Health Care Surrogate: Copy in medical record Durable Power of Manager Labor Relations: Never completed Advance Directive Specifics Health Care Surrogate(s): The patient lacks capacity for decision-making, and it is uncertain whether he will regain that capacity. Initially, he had named his landlord Kerrie Correa as healthcare surrogate on 11/14/16, but she makes it very clear by telephone on 11/18/16 that "since there is family around, I do not want to be the decision-maker for him in any way." I spoke with the patient's 21-year-old son Alexei Mohan [phone] in [place] by telephone, and he reports that he also does not want to be involved in the decision making; "he has not had any impact or played any role in my life, so that would not be appropriate for me to make decisions for him." Thus, the patient's mother Nellie Ying is his healthcare proxy decision-maker. Significant change in goals: Transitioning to comfort 12/18/16 . Objective Vital Signs Date Time Temp Pulse Resp B/P Pulse Ox O2 Delivery O2 Flow Rate FiO2 12/18/16 08:36 98 35 12/18/16 06:00 103 12/18/16 04:00 35 12/18/16 04:00 100.5 102 18 110/53 96 12/18/16 04:00 103 12/18/16 03:43 99 35 12/18/16 02:00 86 12/18/16 00:00 102.2 109 22 107/51 96 12/18/16 00:00 35 12/18/16 00:00 86 12/17/16 23:14 99 35 12/17/16 22:00 110 12/17/16 20:10 100 35 12/17/16 20:00 Mechanical Ventilator 35 12/17/16 20:00 95 Mechanical Ventilator 35 12/17/16 20:00 35 12/17/16 20:00 103.1 114 24 130/63 98 12/17/16 20:00 98 Mechanical Ventilator 35 12/17/16 20:00 110 12/17/16 18:00 111 43 143/60 100 12/17/16 18:00 111 12/17/16 17:30 113 39 132/62 100 12/17/16 17:00 111 38 133/65 98 12/17/16 16:30 112 42 142/67 100 12/17/16 16:00 99.0 111 35 120/56 99 12/17/16 16:00 112 12/17/16 16:00 35 12/17/16 15:45 98 35 12/17/16 15:30 111 37 131/62 99 12/17/16 15:00 110 38 119/86 100 12/17/16 14:30 109 35 136/62 99 12/17/16 14:00 112 12 154/104 98 12/17/16 14:00 111 12/17/16 13:00 104 33 107/53 98 12/17/16 12:45 102 22 100/54 98 12/17/16 12:30 103 30 113/53 97 12/17/16 12:16 107 33 122/58 98 Intake & Output 12/18/16 12/18/16 07:00 19:00 Intake Total 500 ml Output Total 450 ml Balance 50 ml IV Total 500 ml Output Urine Total 0 ml Stool Total 200 ml Gastric Drainage Total 250 ml Physical Exam CONSTITUTIONAL/GENERAL: This is an adequately nourished patient, on the ventilator in [facility], on restraints TUBES/LINES/DRAINS: Central line, trach, peg, Santana catheter SKIN: No jaundice, rashes. He has multiple small, healing punctures and abrasions about his feet and ankles . CARDIOVASCULAR: Regular rate and rhythm with grade 2 systolic murmur. No JVD. Peripheral pulses symmetric. RESPIRATORY/CHEST: Symmetric, unlabored respirations. Scattered rhonchi GASTROINTESTINAL: Abdomen soft, nondistended. No hepato-splenomegaly, or palpable masses. No guarding. Bowel sounds present. MUSCULOSKELETAL: Extremities with diffuse edema NEUROLOGICAL: Moves occasionally, does not track PSYCHIATRIC: could not evaluated . Diagnostic Tests Laboratory Laboratory Tests Test 12/15/16 12/15/16 12/15/16 12/16/16 16:38 20:02 21:42 04:59 Blood Gas Puncture Site LT RADIAL RT RADIAL Blood Gas Patient Temperature 98.6 98.6 Blood Gas HCO3 14 mmol/L 16 mmol/L (22-26) (22-26) Blood Gas Base Excess -12.4 mmol/L -10.5 mmol/L (-2-2) (-2-2) Blood Gas Oxygen Saturation 95 % (90-100) 94 % (90-100) Arterial Blood pH 7.20 7.24 (7.380-7.420) (7.380-7.420) Arterial Blood Partial 37 mmHg (38-42) 37 mmHg (38-42) Pressure CO2 Arterial Blood Partial 111 mmHg 88 mmHg Pressure O2 (61-120) (61-120) Arterial Blood Oxygen Content 10.6 Vol % 9.8 Vol % (12.0-20.0) (12.0-20.0) Arterial Blood 1.3 % (0-4) 1.6 % (0-4) Carboxyhemoglobin Arterial Blood Methemoglobin 1.0 % (0-2) 1.1 % (0-2) Blood Gas Hemoglobin 7.8 G/DL 7.3 G/DL (12.0-16.0) (12.0-16.0) Oxygen Delivery Device VENT VENT Blood Gas Ventilator Setting PRVC/18/600/5/40 SEE COMMENTS Blood Gas Inspired Oxygen 40 % Sodium Level 143 MEQ/L 143 MEQ/L (136-145) (136-145) Potassium Level 3.7 MEQ/L 3.4 MEQ/L (3.5-5.1) (3.5-5.1) Chloride Level 113 MEQ/L 110 MEQ/L (98-107) (98-107) Carbon Dioxide Level 16.8 MEQ/L 18.4 MEQ/L (21.0-32.0) (21.0-32.0) Anion Gap 13 MEQ/L (5-15) 15 MEQ/L (5-15) Blood Urea Nitrogen 85 MG/DL (7-18) 87 MG/DL (7-18) Creatinine 4.72 MG/DL 4.83 MG/DL (0.60-1.30) (0.60-1.30) Estimat Glomerular Filtration 13 ML/MIN (>89) 13 ML/MIN (>89) Rate Random Glucose 160 MG/DL 158 MG/DL (74-106) (74-106) Calcium Level 7.7 MG/DL 8.0 MG/DL (8.5-10.1) (8.5-10.1) White Blood Count 10.5 TH/MM3 (4.0-11.0) Red Blood Count 2.40 MIL/MM3 (4.50-5.90) Hemoglobin 7.4 GM/DL (13.0-17.0) Hematocrit 21.9 % (39.0-51.0) Mean Corpuscular Volume 91.1 FL (80.0-100.0) Mean Corpuscular Hemoglobin 30.7 PG (27.0-34.0) Mean Corpuscular Hemoglobin 33.6 % Concent (32.0-36.0) Red Cell Distribution Width 16.8 % (11.6-17.2) Platelet Count 141 TH/MM3 (150-450) Mean Platelet Volume 9.3 FL (7.0-11.0) Neutrophils (%) (Auto) 67.6 % (16.0-70.0) Lymphocytes (%) (Auto) 26.6 % (9.0-44.0) Monocytes (%) (Auto) 5.5 % (0.0-8.0) Eosinophils (%) (Auto) 0.1 % (0.0-4.0) Basophils (%) (Auto) 0.2 % (0.0-2.0) Neutrophils # (Auto) 7.1 TH/MM3 (1.8-7.7) Lymphocytes # (Auto) 2.8 TH/MM3 (1.0-4.8) Monocytes # (Auto) 0.6 TH/MM3 (0-0.9) Eosinophils # (Auto) 0.0 TH/MM3 (0-0.4) Basophils # (Auto) 0.0 TH/MM3 (0-0.2) CBC Comment DIFF FINAL Differential Comment Test 12/17/16 12/17/16 12/18/16 08:40 14:47 06:30 White Blood Count 12.6 TH/MM3 12.8 TH/MM3 (4.0-11.0) (4.0-11.0) Red Blood Count 2.37 MIL/MM3 2.14 MIL/MM3 (4.50-5.90) (4.50-5.90) Hemoglobin 7.2 GM/DL 6.4 GM/DL (13.0-17.0) (13.0-17.0) Hematocrit 21.6 % 19.1 % (39.0-51.0) (39.0-51.0) Mean Corpuscular Volume 91.1 FL 89.0 FL (80.0-100.0) (80.0-100.0) Mean Corpuscular Hemoglobin 30.3 PG 29.7 PG (27.0-34.0) (27.0-34.0) Mean Corpuscular Hemoglobin 33.2 % 33.3 % Concent (32.0-36.0) (32.0-36.0) Red Cell Distribution Width 17.0 % 17.0 % (11.6-17.2) (11.6-17.2) Platelet Count 177 TH/MM3 192 TH/MM3 (150-450) (150-450) Mean Platelet Volume 9.6 FL 8.8 FL (7.0-11.0) (7.0-11.0) Neutrophils (%) (Auto) 69.4 % 70.4 % (16.0-70.0) (16.0-70.0) Lymphocytes (%) (Auto) 24.9 % 25.1 % (9.0-44.0) (9.0-44.0) Monocytes (%) (Auto) 5.3 % (0.0-8.0) 4.3 % (0.0-8.0) Eosinophils (%) (Auto) 0.1 % (0.0-4.0) 0.1 % (0.0-4.0) Basophils (%) (Auto) 0.3 % (0.0-2.0) 0.1 % (0.0-2.0) Neutrophils # (Auto) 8.8 TH/MM3 9.0 TH/MM3 (1.8-7.7) (1.8-7.7) Lymphocytes # (Auto) 3.1 TH/MM3 3.2 TH/MM3 (1.0-4.8) (1.0-4.8) Monocytes # (Auto) 0.7 TH/MM3 0.6 TH/MM3 (0-0.9) (0-0.9) Eosinophils # (Auto) 0.0 TH/MM3 0.0 TH/MM3 (0-0.4) (0-0.4) Basophils # (Auto) 0.0 TH/MM3 0.0 TH/MM3 (0-0.2) (0-0.2) CBC Comment DIFF FINAL DIFF FINAL Differential Comment Sodium Level 140 MEQ/L 143 MEQ/L (136-145) (136-145) Potassium Level 3.2 MEQ/L 2.7 MEQ/L (3.5-5.1) (3.5-5.1) Chloride Level 104 MEQ/L 102 MEQ/L (98-107) (98-107) Carbon Dioxide Level 19.1 MEQ/L 24.6 MEQ/L (21.0-32.0) (21.0-32.0) Anion Gap 17 MEQ/L (5-15) 16 MEQ/L (5-15) Blood Urea Nitrogen 75 MG/DL (7-18) 64 MG/DL (7-18) Creatinine 4.53 MG/DL 4.33 MG/DL (0.60-1.30) (0.60-1.30) Estimat Glomerular Filtration 14 ML/MIN (>89) 14 ML/MIN (>89) Rate Random Glucose 153 MG/DL 99 MG/DL (74-106) (74-106) Calcium Level 7.9 MG/DL 7.9 MG/DL (8.5-10.1) (8.5-10.1) Blood Gas Puncture Site LT RADIAL Blood Gas Patient Temperature 98.6 Blood Gas HCO3 24 mmol/L (22-26) Blood Gas Base Excess 0.7 mmol/L (-2-2) Blood Gas Oxygen Saturation 93 % (90-100) Arterial Blood pH 7.46 (7.380-7.420) Arterial Blood Partial 35 mmHg (38-42) Pressure CO2 Arterial Blood Partial 78 mmHg Pressure O2 (61-120) Arterial Blood Oxygen Content 10.1 Vol % (12.0-20.0) Arterial Blood 2.1 % (0-4) Carboxyhemoglobin Arterial Blood Methemoglobin 1.5 % (0-2) Blood Gas Hemoglobin 7.6 G/DL (12.0-16.0) Oxygen Delivery Device VENTILATOR Blood Gas Ventilator Setting Blood Gas Inspired Oxygen 35 % Result Diagram: 12/18/1630 12/18/16 0630 Microbiology Microbiology Date/Time Procedure Status Source Growth 12/18/16 06:24 Aerobic Blood Culture Received Blood Peripheral Pending 12/18/16 06:24 Anaerobic Blood Culture Received Blood Peripheral Pending 12/18/16 06:30 Aerobic Blood Culture Received Blood Peripheral Pending 12/18/16 06:30 Anaerobic Blood Culture Received Blood Peripheral Pending Imaging Last Impressions Chest X-Ray 12/17/16 0600 Signed Impressions: Service Date/Time: Saturday, December 17, 2016 03:03 - CONCLUSION: 1. Interval placement of right internal jugular central venous line with no new pneumothorax. 2. Right-sided chest tubes remain in place with stable lucency at the right lung base. Krzysztof Mendez MD Abdomen X-Ray 12/17/16 0000 Signed Impressions: Service Date/Time: Saturday, December 17, 2016 13:15 - CONCLUSION: Stable examination with mildly dilated small bowel similar to the prior study from December 05, 2016. Agustin Bonner MD Chest Tube Insertion 12/09/16 0000 Signed Impressions: Service Date/Time: Friday, December 09, 2016 14:53 - CONCLUSION: Uncomplicated chest tube placement as above. Agustin Pérez MD Renal Ultrasound 12/07/16 0000 Signed Impressions: Service Date/Time: Wednesday, December 07, 2016 10:08 - CONCLUSION: Unremarkable renal ultrasound and a trace of ascites identified. Reba Banerjee MD Small Bowel X-Ray 12/06/16 0000 Signed Impressions: Service Date/Time: Tuesday, December 06, 2016 16:55 - CONCLUSION: Distended loops of small bowel could be due to significant ileus versus partial small bowel obstruction and contrast gets into the colon at 13 hours. Reba Banerjee MD Abdomen Ultrasound 12/06/16 0000 Signed Impressions: Service Date/Time: Tuesday, December 06, 2016 11:31 - CONCLUSION: No free fluid is present. Agustin Bonner MD Abdomen/Pelvis CT 12/05/16 0000 Signed Impressions: Service Date/Time: November 23:28 - CONCLUSION: 1. Small bowel dilatation which may related to ileus or obstruction. The findings are similar to the prior exam. 2. Moderate ascites 3. Small pneumoperitoneum is present. Toribio Magana MD Brain MRI 11/21/16 0000 Signed Impressions: Service Date/Time: November 12:33 - CONCLUSION: Multifocal areas of restricted diffusion primarily in the periventricular and subcortical white matter bilaterally but also cortically based in the right frontal lobe. Findings likely represent ischemic change likely related to septic emboli given the patient's clinical history. No abscess or enhancing lesion is visualized. Agustin Bonner MD Head CT 11/17/16 0600 Signed Impressions: Service Date/Time: Thursday, November 17, 2016 10:39 - CONCLUSION: No significant change has occurred. Deven Urrutia MD Chest CT 11/16/16 0000 Signed Impressions: Service Date/Time: Wednesday, November 16, 2016 20:36 - CONCLUSION: 1. New right chest tube in the posterior superior right pleural space. There continues to be a moderate right pleural effusion primarily seen at the base. Some degree of loculation may be present inferiorly. The effusion does not layer posteriorly. There are scattered punctate areas of air within the pleural space inferiorly on the right. There is a solitary small area of air within the mild left pleural effusion. 2. Numerous irregular masses seen throughout both lungs some which are cavitary. These are nonspecific. Inflammatory masses needs be suspected. The multiplicity raises possibility of septic emboli. Agustin Price MD CT Angiography 11/13/16 1328 Signed Impressions: Service Date/Time: Sunday, November 13, 2016 15:50 - CONCLUSION: 1. Multiple cavitary lesions within both lungs with the largest measuring 9.5 cm in the right upper lobe. Differential diagnosis includes infectious and neoplastic etiologies. 2. Moderate sized right pleural effusion with adjacent compressive atelectasis and/or infiltrate. 3. Cardiomegaly and coronary artery calcifications. 4. Subcarinal mediastinal lymphadenopathy. 5. Degenerative changes throughout the thoracic spine. Jed Ponce MD Procedures Thoracentesis and right (pigtail) thoracostomy 11/14/16 INTUBATION 11/16/16 Bronchoscopy 11/16/16 . 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 Never . One estranged son in [place]. Spiritual: The patient is not and has not ever been spiritual or rastafarian person according to the family, but the family does want the grease maker head to continue to come and visit. Legal: The patient lacks capacity for decision-making, and it it is uncertain whether he will regain that capacity. Initially, he had named his landlord Kerrie Correa as healthcare surrogate, but she makes it very clear by telephone [phone] on 11/18/16 that "since there is family around, I do not want to be the decision-maker for him in any way." I spoke with the patient's 21-year-old son Alexei Mohan [phone] in [place] by telephone, and he reports that he also does not want to be involved in the decision making; "he has not had any impact or played any role in my life, so that would not be appropriate for me to make decisions for him." Thus, the patient's mother Nellie Ying is his healthcare proxy decision-maker. Ethical issues impacting care: None . Important Contacts Mother: Nellie Ying <----> PROXY DECISION-MAKER -- [phone] Son: (estranged for many years) Adarsh Mohan [phone] . Prognosis The patient has multisystem organ failure and septic shock with a large vegetation on his aortic valve, and his overall prognosis is quite guarded at best, and poor at worse. At risk for decompensation, sudden setback and . . Code Status: No Code Plan == DO NOT RESUSCITATE, per request of mother, sister, and longtime friend 12/18/16 == DECISION-MAKING: The patient lacks capacity for decision-making; mother is decision making proxy. == GOALS: 12/18/16: Met with patient's proxy decision-maker/mother Nellietomas Ying , . Orquidae Mohan, and longtime close friend Keyur Her. They all agree that the patient is not getting better and is in fact worsening now with multisystem organ failure. They do not believe that he would want to be kept alive this way indefinitely, and they want to focus more on comfort. They are requesting DNR status, and initiation of scheduled opiates to make sure he is not in pain, and they will likely proceed to withdrawal of life support and cessation of dialysis in the upcoming days or days (allowing time for other family to visit) == SYMPTOMS: 12/18/16, transitioning to comfort, and family initiation of scheduled pain medicine to make sure patient is staying comfortable.. ---> Hydromorphone order added. ==Palliative Care will continue to follow the patient during this hospitalization. . Time Spent Total Floor Time (mins): 46 Face to Face Time (mins): 14 >50% Counseling/Coord of Care: Yes (d/w Dr. Luque) Attestation To help prompt me to consider important information that might be impacting today's encounter and assessment, information from prior notes written by myself or my colleagues may have been "brought forward" into today's note. My signature on this note, however, is an attestation that I personally performed the exam, history, and/or decision-making noted today, and, unless otherwise indicated, the interactions with patient, family, and staff as well as the review of records all occurred today. I also attest that the listed assessment and stated plan reflect my best clinical judgment today based on the combination of historical information, prior notes, and today's exam/ interactions. When time spent is documented, it refers only to time spent today by the signer, or if indicated, combined time spent today by collaborating physician/nurse practitioner. Radha Carpenter MD Dec 18, 2016 12:22
--- NOTE | 2016-12-18 12:44 | HHI.IDPN ---
Note Infectious Disease Note On the vent. CPAP. Looks distressed. Moving head from side to side. Eyes open. Not following commands. Temp spike to 103. Tachypneic. Now DNR status. Sputum culture has pseudomonas sensitive to current antibiotics. D/W RN. Large vegetation on AV and moderate aortic regurg on CHANDNI. Culture of blood 11/13, 11/15, 11/16. - Staph aureus. 11/19 no growth. Culture of pleural fluid 11/14 - staph aureus. ALLERGIES NO KNOWN DRUG ALLERGIES. ANTIBIOTICS: Ancef. Pip/Tazo. levaquin. OBJECTIVE: Vital Signs Date Time Temp Pulse Resp B/P Pulse Ox O2 Delivery O2 Flow Rate FiO2 12/18/16 08:36 98 35 12/18/16 07:00 100 Mechanical Ventilator 35 12/18/16 06:00 103 12/18/16 04:00 35 12/18/16 04:00 100.5 102 18 110/53 96 12/18/16 04:00 103 12/18/16 03:43 99 35 12/18/16 02:00 86 12/18/16 00:00 102.2 109 22 107/51 96 12/18/16 00:00 35 12/18/16 00:00 86 12/17/16 23:14 99 35 12/17/16 22:00 110 12/17/16 20:10 100 35 12/17/16 20:00 Mechanical Ventilator 35 12/17/16 20:00 95 Mechanical Ventilator 35 12/17/16 20:00 35 12/17/16 20:00 103.1 114 24 130/63 98 12/17/16 20:00 98 Mechanical Ventilator 35 12/17/16 20:00 110 12/17/16 18:00 111 43 143/60 100 12/17/16 18:00 111 12/17/16 17:30 113 39 132/62 100 12/17/16 17:00 111 38 133/65 98 12/17/16 16:30 112 42 142/67 100 12/17/16 16:00 99.0 111 35 120/56 99 12/17/16 16:00 112 12/17/16 16:00 35 12/17/16 15:45 98 35 12/17/16 15:30 111 37 131/62 99 12/17/16 15:00 110 38 119/86 100 12/17/16 14:30 109 35 136/62 99 12/17/16 14:00 112 12 154/104 98 12/17/16 14:00 111 12/17/16 13:00 104 33 107/53 98 12/17/16 12:45 102 22 100/54 98 12/17/16 12/17/16 12/18/16 14:59 22:59 06:59 Intake Total 1585 ml 350 ml Output Total 3000 ml 650 ml 100 ml Balance -3000 ml 935 ml 250 ml IV Total 1385 ml 350 ml Albumin 200 ml Output Urine Total 0 ml 0 ml Stool Total 400 ml 100 ml Gastric Drainage Total 250 ml Hemodialysis 3000 ml # Bowel Movements 1 Laboratory Tests Test 12/17/16 12/18/16 08:40 06:30 White Blood Count 12.6 TH/MM3 12.8 TH/MM3 Red Blood Count 2.37 MIL/MM3 2.14 MIL/MM3 Hemoglobin 7.2 GM/DL 6.4 GM/DL Hematocrit 21.6 % 19.1 % Mean Corpuscular Volume 91.1 FL 89.0 FL Mean Corpuscular Hemoglobin 30.3 PG 29.7 PG Mean Corpuscular Hemoglobin 33.2 % 33.3 % Concent Red Cell Distribution Width 17.0 % 17.0 % Platelet Count 177 TH/MM3 192 TH/MM3 Mean Platelet Volume 9.6 FL 8.8 FL Neutrophils (%) (Auto) 69.4 % 70.4 % Lymphocytes (%) (Auto) 24.9 % 25.1 % Monocytes (%) (Auto) 5.3 % 4.3 % Eosinophils (%) (Auto) 0.1 % 0.1 % Basophils (%) (Auto) 0.3 % 0.1 % Neutrophils # (Auto) 8.8 TH/MM3 9.0 TH/MM3 Lymphocytes # (Auto) 3.1 TH/MM3 3.2 TH/MM3 Monocytes # (Auto) 0.7 TH/MM3 0.6 TH/MM3 Eosinophils # (Auto) 0.0 TH/MM3 0.0 TH/MM3 Basophils # (Auto) 0.0 TH/MM3 0.0 TH/MM3 CBC Comment DIFF FINAL DIFF FINAL Differential Comment Laboratory Tests Test 12/17/16 12/18/16 08:40 06:30 Sodium Level 140 MEQ/L 143 MEQ/L Potassium Level 3.2 MEQ/L 2.7 MEQ/L Chloride Level 104 MEQ/L 102 MEQ/L Carbon Dioxide Level 19.1 MEQ/L 24.6 MEQ/L Anion Gap 17 MEQ/L 16 MEQ/L Blood Urea Nitrogen 75 MG/DL 64 MG/DL Creatinine 4.53 MG/DL 4.33 MG/DL Estimat Glomerular Filtration 14 ML/MIN 14 ML/MIN Rate Random Glucose 153 MG/DL 99 MG/DL Calcium Level 7.9 MG/DL 7.9 MG/DL Microbiology Date/Time Procedure Status Source Growth 12/18/16 06:24 Aerobic Blood Culture Received Blood Peripheral Pending 12/18/16 06:24 Anaerobic Blood Culture Received Blood Peripheral Pending 12/18/16 06:30 Aerobic Blood Culture Received Blood Peripheral Pending 12/18/16 06:30 Anaerobic Blood Culture Received Blood Peripheral Pending IMAGING: Chest X-Ray 12/17/16 0600 Signed Impressions: Service Date/Time: Saturday, December 17, 2016 03:03 - CONCLUSION: 1. Interval placement of right internal jugular central venous line with no new pneumothorax. 2. Right-sided chest tubes remain in place with stable lucency at the right lung base. Krzysztof Mendez MD Chest X-Ray 12/17/16 0000 Signed Impressions: Service Date/Time: Saturday, December 17, 2016 14:35 - CONCLUSION: Stable chest x-ray with unchanged lucency in the peripheral inferior right hemithorax likely representing air within the previously documented cavitary lesion in this region. Otherwise, no pneumothorax is identified. Agustin Bonner MD Abdomen X-Ray 12/17/16 0000 Signed Impressions: Service Date/Time: Saturday, December 17, 2016 13:15 - CONCLUSION: Stable examination with mildly dilated small bowel similar to the prior study from December 05, 2016. Agustin Bonner MD PHYSICAL EXAMINATION GENERAL: On the vent. HEENT: No icterus. Oropharynx: No lesions. Mucosa moist. NECK: Supple without adenopathy. LUNGS: Decreased breath sounds. HEART: Normal S1-S2 with 2/6 IRMA at LSB. ABDOMEN: Markedly distended. Soft. Decreased bowel sounds. EXTREMITIES: No clubbing or cyanosis, 1+ edema. SKIN: No rash. NEURO: Unable to assess, not following commands. PSYCH: unable to assess. IMPRESSION 1. Endocarditis Aortic valve Staph aureus (MSSA). 2. Cavitary pulmonary lesions. Embolic./ [employer] ischemic lesions suggesting embolic lesions. 3. Pneumonia/parapneumonic effusion- MSSA. - pseudomonas pneumonia. VAP. 4. Leukocytosis secondary to infection. WBC now normal. 5. Recurrent fever. ? source. Probably pulmonary. 6. Vent dependent respiratory failure. 7. Ileus. 8. Acute renal failure. On hemodialysis. 9. Fever - recurring. Probably from pneumonia. ? abdomen. RECOMMENDATIONS 1. Continue IV Ancef for endocarditis. 2. Continue PIP/Tazobactam. 3. Continue Levaquin. 4. Add Flagyl. 5. Monitor temperature. 6. Follow blood cultures. Slava Garcia MD Dec 18, 2016 12:44
[2016-12-18] MEDS ORDERED: LORazepam 2 MG/ML VIAL IV PUSH PRN (13:00)
--- NOTE | 2016-12-18 14:23 | PD.WCN.NOT ---
Wound Consult Description: Seen for follow up of wound to buttock Communicated with: KIERA Banda 5th [place] [facility] [place]: Continue Calazime BID and PRN to bilateral upper buttock DTI opening to full thickness skin loss Skin barrier film to bilateral heel DTI's Turn every 2 hours. Additional Information: Late entry: Saw patient on 12/16/2016 at 11am.Patient seen for follow up of wound to buttock area. KIERA Ontiveros [facility] [place] care nurse via [employer] to report change in wound condition to buttock area.Patient assessed with Nia CHAMORRO, residential mortgage underwriter and Rama QURESHI [facility] [place] Turned patient to R side to reveal Large DTI that has opened to full thickness skin loss.wound bed presents with ~40% pink tissue or ~2cm pink tissue surrounding an island of ~60% soft black eschar. Periwound noted with incontinence associated dermatitis.Wound noted with minimal sero-sanguinous active drainage without foul odor.Wound measures ~13 cm x ~10 cm. Patient on [facility] turn bed. Wound care will continue to follow patient weekly until discharge. Cristy Rogers [facility] Dec 18, 2016 14:23 Wound Location: Seen for follow up of wound to buttock Cristy Rogers [facility] Dec 18, 2016 14:23
[2016-12-18] MEDS: HYDROmorphone HCL PF 1 MG/ML VIAL IV PUSH SCH ×3 (15:03→22:08)
[2016-12-18] MEDS: ARTIFICIAL TEARS OPTH SOLN 15 ML BTL EACH EYE SCH ×2 (15:37→21:56)
[2016-12-18] MEDS: metroNIDAZOLE 500 MG INJ 100 ML IV SCH ×2 (15:41→18:50)
[2016-12-18] MEDS: CHLORHEXIDINE 0.12% (ORAL KIT) 15 ML CUP MT SCH ×2 (16:42→21:57)
--- NOTE | 2016-12-18 18:37 | HHI.NPPN ---
Subjective General Problems: Anemia, Edema, Hypotension Renal Failure: Acute History of Present Illness This is 56 years old male, with Resp. failure, post tracheostomy, develop MENDY. Additional Remarks Patient remain on the vent. unresponsive, not in distress, clinically same. Objective Data Data 12/17/16 12/18/16 19:00 07:00 Intake Total 1435 ml 500 ml Output Total 3300 ml 450 ml Balance -1865 ml 50 ml IV Total 1235 ml 500 ml Albumin 200 ml Output Urine Total 0 ml Stool Total 300 ml 200 ml Gastric Drainage Total 250 ml Hemodialysis 3000 ml # Bowel Movements 1 Vital Signs Date Time Temp Pulse Resp B/P Pulse Ox O2 Delivery O2 Flow Rate FiO2 12/18/16 18:00 102 12/18/16 16:00 100.1 104 31 107/59 100 12/18/16 16:00 104 12/18/16 16:00 35 12/18/16 16:00 104 31 107/59 100 12/18/16 15:59 100 35 12/18/16 15:05 103 25 100 12/18/16 15:00 104 34 106/55 100 12/18/16 14:50 104 29 100 12/18/16 14:00 35 12/18/16 14:00 108 12/18/16 14:00 106 24 110/56 100 12/18/16 13:00 104 31 109/54 100 12/18/16 12:39 100 35 12/18/16 12:00 99.1 108 33 113/56 100 12/18/16 12:00 35 12/18/16 12:00 108 33 113/56 100 12/18/16 12:00 108 12/18/16 11:00 108 34 109/60 100 12/18/16 10:00 108 28 117/59 100 12/18/16 10:00 109 12/18/16 09:00 109 37 113/59 100 12/18/16 08:36 98 35 12/18/16 08:00 35 12/18/16 08:00 101.1 12/18/16 08:00 101.1 109 28 111/59 100 12/18/16 07:00 100 Mechanical Ventilator 35 12/18/16 06:00 103 12/18/16 04:00 35 12/18/16 04:00 100.5 102 18 110/53 96 12/18/16 04:00 103 8/2/17 03:43 99 35 12/18/16 02:00 86 12/18/16 00:00 102.2 109 22 107/51 96 12/18/16 00:00 35 12/18/16 00:00 86 12/17/16 23:14 99 35 12/17/16 22:00 110 12/17/16 20:10 100 35 12/17/16 20:00 Mechanical Ventilator 35 12/17/16 20:00 95 Mechanical Ventilator 35 12/17/16 20:00 35 12/17/16 20:00 103.1 114 24 130/63 98 12/17/16 20:00 98 Mechanical Ventilator 35 12/17/16 20:00 110 -: 12/18/16 0630 12/18/16 0630 Microbiology 12/18/16 Aerobic Blood Culture, Received Pending 12/18/16 Anaerobic Blood Culture, Received Pending 12/18/16 Aerobic Blood Culture, Received Pending 12/18/16 Anaerobic Blood Culture, Received Pending Physical Exam General Appearance: Anxious Appearance Remarks On the vent. with Trach. Eyes Eye Exam: Pupils Equal Throat Throat Exam: Oral Mucosa [place] & Moist Neck Neck Exam: Neck Supple Pulmonary Resp Exam: No Distress, Crackles, Rhonchi, Decreased Bases, Diminished Breath Sounds Cardiology CV Exam: Tachycardia Gastrointestinal/Abdomen GI Exam: Soft, Non-Tender, Bowel Sounds Present, Distended Extremeties Extremities Exam: Moderate Edema, Pitting Edema, Dependent Edema Neurologic Neuro Exam: Obtunded, Unresponsive Assessment/Plan Assessment Summary: MENDY/Acute Renal Failure, Hypotension Problem List: (1) Leukocytosis (2) Acute respiratory insufficiency (3) Sepsis (4) multiple pulmonary cavitary lesions (5) severe encephalopathy, likely due to sepsis and multiple embolic infarctions (6) Acute kidney injury 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 Bumex infusion decreased. Urine out put declined BP low. Started on HD as Creatinine continue to increase. HD done yesterday. K was low and replaced. Urine out put is low. HD will be in AM. Problem Qualifiers (1) Sepsis: Qualified Code: A41.9 - Sepsis, due to unspecified organism Otoniel Mireles MD Dec 18, 2016 18:37
--- NOTE | 2016-12-18 20:04 | HHI.PR ---
Subjective Remarks Patient was intubated last night for acute hypoxemic resp failure and a right chest tube was placed for right hydroPTX in addition patient underwent bronch with BAL ( mucous plugs b/l suctioned to clear). MRI brain multifocal area of septic emboli/infarct Tolerates TF on Oxycodone and Seraquel has worsening renal functions and Acidosis Had HD today On Vent, PRVC mode Family Met with Palliative care Now DNR, family considering comfort care and withdrawl in few days Objective Vital Signs Vital Signs Date Time Temp Pulse Resp B/P Pulse Ox O2 Delivery O2 Flow Rate FiO2 12/18/16 18:00 102 12/18/16 16:00 100.1 104 31 107/59 100 12/18/16 16:00 104 12/18/16 16:00 35 12/18/16 16:00 104 31 107/59 100 12/18/16 15:59 100 35 12/18/16 15:05 103 25 100 12/18/16 15:00 104 34 106/55 100 12/18/16 14:50 104 29 100 12/18/16 14:00 35 12/18/16 14:00 108 12/18/16 14:00 106 24 110/56 100 12/18/16 13:00 104 31 109/54 100 12/18/16 12:39 100 35 12/18/16 12:00 99.1 108 33 113/56 100 12/18/16 12:00 35 12/18/16 12:00 108 33 113/56 100 12/18/16 12:00 108 12/18/16 11:00 108 34 109/60 100 12/18/16 10:00 108 28 117/59 100 12/18/16 10:00 109 12/18/16 09:00 109 37 113/59 100 12/18/16 08:36 98 35 12/18/16 08:00 35 12/18/16 08:00 101.1 12/18/16 08:00 101.1 109 28 111/59 100 12/18/16 07:00 100 Mechanical Ventilator 35 12/18/16 06:00 103 12/18/16 04:00 35 12/18/16 04:00 100.5 102 18 110/53 96 12/18/16 04:00 103 12/18/16 03:43 99 35 12/18/16 02:00 86 12/18/16 00:00 102.2 109 22 107/51 96 12/18/16 00:00 35 12/18/16 00:00 86 12/17/16 23:14 99 35 12/17/16 22:00 110 12/17/16 20:10 100 35 I/O 12/17/16 12/17/16 12/17/16 12/18/16 12/18/16 12/18/16 07:00 15:00 23:00 07:00 15:00 23:00 Intake Total 1670 ml 1435 ml 150 ml 350 ml 315 ml Output Total 200 ml 3300 ml 350 ml 100 ml 545 ml Balance 1470 ml -1865 ml -200 ml 250 ml -230 ml IV Total 1070 ml 1235 ml 150 ml 350 ml 265 ml Tube Feeding 300 ml Albumin 200 ml Tube Irrigant 50 ml Other 300 ml Output Urine Total 0 ml 0 ml 0 ml 25 ml Stool Total 200 ml 300 ml 100 ml 100 ml 500 ml Gastric Drainage Total 250 ml Chest Tube Drainage Total 20 ml Hemodialysis 3000 ml # Bowel Movements 1 Result Diagram: 12/18/16 0630 12/18/16 0630 Objective Remarks GENERAL: Patient is 56 yo critically ill intubated , sedated and on pressors. SKIN: Warm and dry. HEAD: Normocephalic. EYES: No scleral icterus. No injection or drainage. NECK: Supple, trachea midline. No JVD or lymphadenopathy. CARDIOVASCULAR: Regular rate and rhythm without murmurs, gallops, or rubs. RESPIRATORY: Breath sounds equal bilaterally. No accessory muscle use. GASTROINTESTINAL: Abdomen soft, non-tender, distended., tympanic MUSCULOSKELETAL: No cyanosis, or edema. Neuro: Sedated and intubated A/P Assessment and Plan 1VDRF 2)Septic shock 3)Staph Aureus bacteremia 4)Empyema 6)Endocarditis involving AV 7)Leucocytosis 8)Cavitary pulm masses 2nd staph Aureus 9)Right hydroPTX 10) renal failure PLAN: Continue with vent support keep sat >92% Bronchodilators, ICU vent bundle, on stress dose steroids- Abx per ID Chest tube to suction Sedation with oxycodone and Seraquel Vent support Cont Vent Family considering DNR in AMDNR Emmett Bolton MD Dec 18, 2016 20:04
[2016-12-18] MEDS: MELATONIN 5 MG TAB PO SCH (21:00)
[2016-12-19] VITALS (11 sets, daily range): BP systolic 100–113; BP diastolic 52–57; PULSE 97–109; RESP 20–25; TEMP 98.3–101.4; O2SAT 100
[2016-12-19] MEDS: PIPERACIL-TAZO 3.375 GM PREMIX 50 ML IV SCH ×2 (01:00→08:39)
[2016-12-19] MEDS: HYDROmorphone HCL PF 1 MG/ML VIAL IV PUSH SCH ×3 (01:01→08:36)
[2016-12-19] MEDS: metroNIDAZOLE 500 MG INJ 100 ML IV SCH ×2 (01:01→06:38)
[2016-12-19] MEDS: ALBUMIN HUMAN 25% 25 GM/100 ML BAGP IV SCH ×2 (01:06→08:36)
[2016-12-19] MEDS: FREE WATER G-TUBE SCH ×3 (04:00→08:00)
[2016-12-19] MEDS: CHLORHEXIDINE GLUCONATE 2 % 1 PACK (2 CLOTHS) TOP SCH (04:00)
--- NOTE | 2016-12-19 04:18 | RADRPT ---
EXAM DATE/TIME: 12/19/2016 03:22 [place] COMPARISON: CHEST SINGLE AP, December 17, 2016, 14:35. INDICATIONS : Shortness of breath MEDICAL HISTORY : Sepsis. SURGICAL HISTORY : peg tube, chest tubes ENCOUNTER: Subsequent ACUITY: 1 month PAIN SCORE: Non-responsive. LOCATION: Bilateral chest FINDINGS: A single AP portable erect view of the chest was obtained and again demonstrates a tracheostomy tube in place. The right internal jugular central venous line is unchanged. The right-sided chest tube rem ains in place. The basilar chest tube is stable as well. There has been interval decrease in the size of the right basilar and lateral pneumothorax with small residual. The heart size remains mildly pro minent. There is patchy opacity mainly in the right perihilar region the right lung base. CONCLUSION: 1. Mild interval decrease in the size of the right pneumothorax. 2. 2 right-sided chest tubes remain in place. Krzysztof Mendez MD on December 19, 2016 at 4:15 Board Certified Radiologist. This report was verified electronically.
[2016-12-19] MEDS: INSULIN ASPART SUPPLEMENTAL SCALE SQ SCH ×2 (05:00→11:00)
[2016-12-19 06:18] LABS: AUTOMATED NEUTROPHIL # 7.6 TH/MM3 (1.8-7.7); BASOPHIL # 0.1 TH/MM3 (0-0.2); BASOPHIL % 0.6 % (0.0-2.0); EOSINOPHIL % 0.2 % (0.0-4.0); HEMATOCRIT 22.1 % (39.0-51.0); HEMO FLAGS DIFF FINAL; LYMPH % 22.6 % (9.0-44.0); LYMPHOCYTE # 2.4 TH/MM3 (1.0-4.8); MEAN CELL VOLUME 88.7 FL (80.0-100.0); MEAN CORPUSCULAR HEMOGLOBIN 30.8 PG (27.0-34.0); MEAN CORPUSCULAR HGB CONC 34.8 % (32.0-36.0); MONO % 6.1 % (0.0-8.0); NEUT % 70.5 % (16.0-70.0); PLATELET COUNT 174 TH/MM3 (150-450); RED CELL DISTRIBUTION WIDTH 16.2 % (11.6-17.2); WHITE BLOOD COUNT 10.8 TH/MM3 (4.0-11.0)
[2016-12-19] MEDS: ARTIFICIAL TEARS OPTH SOLN 15 ML BTL EACH EYE SCH ×2 (06:38→14:04)
[2016-12-19 06:47] LABS: BICARBONATE 23.7 MEQ/L (21.0-32.0)
[2016-12-19 06:53] LABS: POTASSIUM 2.8 MEQ/L (3.5-5.1)
[2016-12-19] MEDS: MULTIVITAMIN TAB PO SCH (08:33)
[2016-12-19] MEDS: FOLIC ACID 1 MG TAB PO SCH (08:33)
[2016-12-19] MEDS: THIAMINE HCL 100 MG TAB PO SCH (08:33)
[2016-12-19] MEDS: ACETAMINOPHEN 325 MG TAB PO PRN (08:33)
[2016-12-19] MEDS: PANTOPRAZOLE SODIUM 40 MG VIAL IV SCH (08:34)
--- NOTE | 2016-12-19 09:31 | HHI.CCPN ---
Subjective Remarks/Hospital Course 56-year-old male is brought to the emergency department by EMS for evaluation of generalized weakness, confusion for about 2 weeks, and also increasing shortness of breath. His oxygen saturation was 88% on room air. EMS administered breathing treatments and Solu-Medrol 125 mg 1 and placed him on nasal cannula. Patient states that he had been sick for almost 10 days, but he is a poor historian. He had a productive cough, but reports no hematemesis or weight loss. He states that it was his neighbor who made him called EMS. He has no past medical history and last time had seen a doctor was about 15 years ago. He denies any fevers but reports some night sweats and chills. He was tachycardic with a heart rate of 115 bpm, had severe leukocytosis with a white count of 35,000 with 91% neutrophils. CMP shows hyponatremia with a sodium of 126. Lactic acid is 2.4. His Chest x-ray shows large 7.7 x 7.8 cm cavitary right midlung lesion with associated right-sided pleural effusion. Subcentimeter left mid lung pulmonary nodules. Patient received 1 L normal saline bolus and Zosyn 4.5 g and Zithromax 500 mg IV and was placed on TB/ respiratory isolation. He has been being in assisted 2 years ago increasing his risk of tuberculosis. CT pulmonary angiogram negative for PE but showed multiple cavitary lesions within both lungs with the largest measuring 9.5 cm in the right upper lobe. Moderate size right pleural effusion. I evaluated the patient in the emergency department. Patient appears critically ill in moderate distress mildly tachypneic, sweating. I performed a bedside ultrasound which showed a right effusion which is large. The thoracentesis was performed and 1 L of cloudy dark pleural fluid was removed. Patient will be continued on Zosyn and Levaquin and vancomycin. ID consulted and I discussed with Dr. Steele-she recommended no empiric treatments for TB. 11/14/16: Patient seen and examined complaints of severe epigastric and periumbilical abdominal pain. Patient remains oriented to person. His white count is slightly improved from 35,000-28,9000. Na improved to 136. I have ordered a STAT CT abd/pelvis with IV contrast. Chest x-ray shows reaccumulation of right pleural effusion-fluid chemistries are pending but cell count indicates at least a parapneumonic effusion and patient will need a pigtail chest tube 11/15: Patient pulled his right-sided pigtail catheter out overnight last night. Currently nasal cannula in no acute distress. Afebrile. Continues to have a leukocytosis. 11/16: Currently on room air. Hold out his IVs reportedly overnight last night. Requesting diet. Awake and alert and following commands. 11/17: Intubated yesterday due to acute hypercapnic respiratory failure. Hypoxic post intubation requiring right chest tube placement, bronchoscopy and Flolan. Bronchoscopy revealed thick mucous plugging at bilateral right and left mainstem which were clear. Improved oxygenation over the past 12 hours. Afebrile. 11/18 Patient remains sedated with Diprivan, Fentanyl and intubated. On Vasopressin and Neosyn 120 mics. 11/19 Patient is sedated with Diprivan, Fentanyl and intubated. Afebrile. Off all pressors. Afebrile. WBC is trending down 30 today from 50. 11/20: Remains severely septic and encephalopathic even though weaned off all pressors. White count still elevated but trending down. Became extremely tachycardic and tachypneic on lowering sedation. We'll check MRI of the brain to rule out embolic infarct. Family at the bedside updated 11/21 Remains heavily sedated, remains encephalopathic. MRI brain is pending. Family is at bedside. Remains critically with resp failure severe from endocarditis, now unable to wean off the ventilator due to severe metabolic encephalopathy 11/22 No events overnight. Sedated with Diprivan, fentanyl and intubated. Afebrile. MRI brain yesterday showed ischemic changes likely related to septic emboli. 11/23: Patient remains encephalopathic, severe hyponatremia possible contributing , Na is 157 today. Currently on Precedex and fentanyl. CXR shows increasing L effusion 11/24: Patient more awake today. Follows Commands but did not tolerate spontaneous breathing trials. Had left pigtail chest tube placed yesterday 1.6 L transudative fluid removal since placement 11/25 Patient is sedated with Diprivan, Fentanyl and intubated. T:99.9 11/26 No events overnight. Sedated and intubated. Patient was on CPAP x 3 hrs yesterday then became tachypneic. 11/27: Resting in bed comfortably on Diprivan at 40 mics grams per kilogram per minute and fentanyl drip at 200 an hour. Tolerated PSV trial 2 hours yesterday before becoming tachypnea. Positive BM via fecal containment device 1100 cc. Yesterday according to RN was following commands. 11/28: Currently afebrile. Tolerating PSV trials 1.5 hours today for became tachypneic. Awake and alert and follows commands. Neurologically intact. Positive BM. 11/29: Tmax 99.6. Status post percutaneous tracheostomy secondary to failed extubation trials. Plan for PEG tube today. Awake and interactive the ventilator on sedation vacation. 11/30: DrAzael currently 98.8. Status post percutaneous tracheostomy Dr. Baker yesterday and PEG tube placement by Dr. Figueroa. Tube feeds will be resumed today. Otherwise appears comfortable ventilator. Arousable and follows commands on sedation vacation. 12/01: Patient becomes tachypneic on attempted CPAP, even with high pressure support. I will add by mouth Ativan to reduce IV sedation requirement. Decreasing chest tube output 12/02: Patient failed spontaneous breathing trial clinically today secondary to severe tachypnea and tachycardia. His spiking fever upto 103. Panculture blood , dose of vancomycin given. Most likely patient is getting new sepsis 12/03: Continued to spike fever up to 102. Dose of vancomycin was given yesterday. Patient tolerated CPAP for 3 hours today, remains encephalopathic though. 12/04: Patient more awake alert follows commands, tolerated CPAP but did not tolerate TPs. Abdomen significantly distended, KUB shows ileus. Continues to spike high fever. Diflucan vancomycin added by ID and continue Ancef 12/05: Abdomen remains distended, CT yesterday show intra abdominal free air. Unclear whether related to PEG or perforation. D/W with Dr. Baker, will get repeat CT with oral contrast today. Zosyn added by ID 12/06 Patient is sedated with Fentanyl and Diprivan. CT abdomen/pelvis yesterday sowed small bowel dilation ( ileus vs obstruction) 12/07 Patient remains intubated on low dose Diprivan and Fentanyl infusion however he is awake. Tolerated CPAP all day yesterday T: 100.0 last night. SB series showed distended loops of small bowel. Renal function worse today with Cr: 2.4 from 1.96. 12/08 No events overnight. On Diprivan and Fentanyl drip for sedation. T:99.9 last night. 12/09 Patient remains on ventilator via trach, sedated with Diprivan and Fentanyl. T: 101.0 last night. s/p transfusion 1unit PRBC yesterday. 12/10 Patient is sedate with Dip, Fentanyl and intubated. T: 101.6 at 8 am. 12/11: patient remains on sedation for his agitated delirium. remains febrile today. 25kg up from admission and Cr uptrending. bedside critical care echo demonstrates 2cm ivc without respiratory variation, RVSP 48 mmHg, mild RV dilation, normal LV function. by physical exam, grossly volume overloaded. Subjective 12/12: patient less agitated. following commands. still did not diurese well on intermittent bumex. BNP severely elevated. on my examination today patient with leaking trach despite multiple inflation of balloon. trach swapped out over cook exchange catheter with good seal for new trach (8.0 shiley cuffed). not making improvements. 12/13 No events overnight. On Bumex drip 1mg/hr, T: 100.8. Off sedation. 12/14 Patient is on ventilator via trach. T;100.7 last night. On Bumex drip 0.5mg /hr. Renal function worse Cr: 3.67 from 3.20 with UOP 1150ml in 24 hrs. 12/15 Patient remains on Bumex drip 0.5mg/hr however renal function is worsening with Cr: 4.27 from 3.67 and UOP: 400ml in 24 hrs. Afebrile. Tolerated CPAP all day yesterday. 12/16 Patient remains on ventilator via trach, renal function continue to decline with Cr: 4.83 from 4.72 with poor UOP. Vascath just placed for HD. Afebrile. On Bicarb drip. 12/17 Patient is on ventilator via trach s/p HD yesterday with removal 2L for another HD session today. Afebrile. 12/18 No events overnight. Spiked fever with Tmax: 103.1 last night. s/p HD yesterday with 3L removal. 12/19: No improvement in mental status.According to palliative care notes, family will likely proceed to withdrawal of life support and cessation of dialysis in the next few days. They are allowing time for other family to visit Objective Vital Signs Date Time Temp Pulse Resp B/P Pulse Ox O2 Delivery O2 Flow Rate FiO2 12/19/16 08:57 100 35 12/19/16 06:00 101 12/19/16 04:57 22 12/19/16 04:00 99.7 104/57 12/18/16 19:00 Mechanical Ventilator Intake and Output 12/18/16 12/18/16 12/19/16 08:00 16:00 00:00 Intake Total 350 ml 315 ml 1199 ml Output Total 100 ml 545 ml 265 ml Balance 250 ml -230 ml 934 ml Result Diagram: 12/19/16 0518 12/19/16 0518 Imaging Last Impressions Chest X-Ray 12/17/16 0600 Signed Impressions: Service Date/Time: Saturday, December 17, 2016 03:03 - CONCLUSION: 1. Interval placement of right internal jugular central venous line with no new pneumothorax. 2. Right-sided chest tubes remain in place with stable lucency at the right lung base. Krzysztof Mendez MD Abdomen X-Ray 12/17/16 0000 Signed Impressions: Service Date/Time: Saturday, December 17, 2016 13:15 - CONCLUSION: Stable examination with mildly dilated small bowel similar to the prior study from December 05, 2016. Agustin Bonner MD Chest Tube Insertion 12/09/16 0000 Signed Impressions: Service Date/Time: Friday, December 09, 2016 14:53 - CONCLUSION: Uncomplicated chest tube placement as above. Agustin Pérez MD Renal Ultrasound 12/07/16 0000 Signed Impressions: Service Date/Time: Wednesday, December 07, 2016 10:08 - CONCLUSION: Unremarkable renal ultrasound and a trace of ascites identified. Reba Banerjee MD Small Bowel X-Ray 12/06/16 0000 Signed Impressions: Service Date/Time: Tuesday, December 06, 2016 16:55 - CONCLUSION: Distended loops of small bowel could be due to significant ileus versus partial small bowel obstruction and contrast gets into the colon at 13 hours. Reba Banerjee MD Abdomen Ultrasound 12/06/16 0000 Signed Impressions: Service Date/Time: Tuesday, December 06, 2016 11:31 - CONCLUSION: No free fluid is present. Agustin Bonner MD Abdomen/Pelvis CT 12/05/16 0000 Signed Impressions: Service Date/Time: November 23:28 - CONCLUSION: 1. Small bowel dilatation which may related to ileus or obstruction. The findings are similar to the prior exam. 2. Moderate ascites 3. Small pneumoperitoneum is present. Toribio Magana MD Brain MRI 11/21/16 0000 Signed Impressions: Service Date/Time: November 12:33 - CONCLUSION: Multifocal areas of restricted diffusion primarily in the periventricular and subcortical white matter bilaterally but also cortically based in the right frontal lobe. Findings likely represent ischemic change likely related to septic emboli given the patient's clinical history. No abscess or enhancing lesion is visualized. Agustin Bonner MD Head CT 11/17/16 0600 Signed Impressions: Service Date/Time: Thursday, November 17, 2016 10:39 - CONCLUSION: No significant change has occurred. Deven Urrutia MD Chest CT 11/16/16 0000 Signed Impressions: Service Date/Time: Wednesday, November 16, 2016 20:36 - CONCLUSION: 1. New right chest tube in the posterior superior right pleural space. There continues to be a moderate right pleural effusion primarily seen at the base. Some degree of loculation may be present inferiorly. The effusion does not layer posteriorly. There are scattered punctate areas of air within the pleural space inferiorly on the right. There is a solitary small area of air within the mild left pleural effusion. 2. Numerous irregular masses seen throughout both lungs some which are cavitary. These are nonspecific. Inflammatory masses needs be suspected. The multiplicity raises possibility of septic emboli. Agustin Price MD CT Angiography 11/13/16 1328 Signed Impressions: Service Date/Time: Sunday, November 13, 2016 15:50 - CONCLUSION: 1. Multiple cavitary lesions within both lungs with the largest measuring 9.5 cm in the right upper lobe. Differential diagnosis includes infectious and neoplastic etiologies. 2. Moderate sized right pleural effusion with adjacent compressive atelectasis and/or infiltrate. 3. Cardiomegaly and coronary artery calcifications. 4. Subcarinal mediastinal lymphadenopathy. 5. Degenerative changes throughout the thoracic spine. Jed Ponce MD Objective Remarks GENERAL: 56-year-old male, critically ill currently on ventilator via tracheostomy, SKIN: Warm and dry. Scattered skin lesions erythematous predominantly left lower extremity HEAD: Normocephalic and atraumatic. EYES: No injection, drainage. Pupils equally round and reactive around 3 mm ENT: No nasal drainage noted. Oropharynx is clear. NECK: trachea midline. Tracheostomy is clean dry and intact CARDIOVASCULAR: Tachycardic, nl Sq, S2 RESPIRATORY: PSV 10/5/40%. equal chest rise GASTROINTESTINAL: Abdomen is distended, tympanic, no guarding MUSCULOSKELETAL: +3 pitting edema bilateral lower extremities. Multiple erythematous raised lesions on bilateral lower extremity predominantly left lower leg NEUROLOGICAL: Patient is awake on the ventilator. He occasionally tracts but does not follow commands. A/P Assessment and Plan NEURO/PSYCH: Metabolic encephalopathy Septic brain emboli Agitated Delirium off sedation except scheduled Dilaudid for comfort Hold oxycodone , Seroquel for encephalopathy melatonin 5mg po qHS Haldol 5mg iv q4h prn for breakthrough agitation EEG 11/24: Generalized encephalopathy without any significant epileptic activity. MRI brain 11/21: Ischemic changes throughout white matter likely related to septic emboli. Neuro Dr. Hernandez and has followed intermittently Thiamine 100mg PO daily RESP: Bilateral cavitary lung lesions/most likely cavitating pneumonia from staph aureus Chronic respiratory failure Large right loculated pleural effusion/empyema Left pleural effusion Right pneumothorax Continue with vent support keep sat >90%. Family may decide in the next few days regarding withdrawal of life support DuoNebs every 4 hours with albuterol nebs every 2 hours. Vent bundle. Status post tracheostomy by Dr. Baker 11/29 A second Right sided 16 Ethiopian chest tube placed by IR 12/09 Right-sided chest tube #28 Ethiopian, Left-sided chest tube #10 Ethiopian- placed 11/24/16-removed 12/02 Right thoracentesis with 1 L cloudy yellow fluid removed, fluid cell studies WBC 2,600, Patient status post pigtail catheter placement 11/14, 445 cc prior pulled out . Evaluated by Dr. Samuels/CT surgery. Per his recommendations, No indication for decortication at this time CV: Aortic valve endocarditis/large vegetation Moderate Aortic Insufficiency Congestive Heart Failure secondary to valvulopathy Sinus tachycardia Atrial fibrillation with RVR - resolved, now normal sinus rhythm Elevated troponin - likely rate dependent , Monitor HR and BP keep MAP>65mmHg, - 2-D echocardiogram revealed EF 55-60%. Moderate AR. CHANDNI revealed 17 mm x 17 millimeter mobile mass on aortic valve. - limited echo 11/22 Persistent vegetation - CT surgery. Recommendations no intervention at this time GI: Intra peritoneal free air. (Related to PEG or perforation). Ileus Hypoalbuminemia Moderate protein calorie malnutrition/acute TF on hold( Nepro@40ml/hr) 12/17 KUB abdomen: Mildly dilated small bowel. GI is following PEG tube to LIMWS -gastric output 250ml in 24hrs 12/06 SB series w/ Gastrografin showed distended SB loops- ileus vs partial bowel obstruction 12/[address] abdomen/pelvis- small pneumoperitoneum, small bowel dilation ( ileus vs obstruction) small pneumoperitoneum likely related to previous PEG tube placement, PEG tube to suction. GI/Surgery is following- Dr. Baker. CT abdomen 12/04 show intra peritoneal free air. ? related to PEG or perforation. IV Protonix for GI prophylaxis. Reglan, MiraLAX twice a day for bowel regimen Prev CT of the abdomen pelvis with IV contrast revealed possible ileus., Gastric contraction at gastric duodenal junction. 2 mm renal cyst. s/p PEG placement 11/29/16 : Acute kidney injury- HD initiated 12/16 s/p HD 12/16 with removal 2L, HD 12/17 with 3L removal. Renal- Chi On free water to 300mL q4h.monitor sodium level, Renal US: unremarkable, renal is following- Dr. Mireles Replace potassium ID: Severe sepsis Persistent fever Multilobar cavitating pneumonia secondary staph aureus Staph aureus empyema Aortic valve endocarditis - Continue with abx per ID ( Zosyn, Levaquin, Flagyl, Ancef)- monitor for signs of infections ( Fever, WBC). - 12/07, 12/10,12/15, sputum cx: Pseudomonas - 12/18 BC x 2 sets today Pertinent cultures 11/13 - blood cultures 2 - staph aureus 11/13 and 11/14- pleural fluid- staph aureus 11/14- sputum- staph aureus 11/15 - blood cultures 2 -staph aureus 11/16 - Bronch samples: Staph Aureus 11/16 Sputum: Staph Aureus 11/19 - blood cultures 2 - no growth 11/23 - pleural fluid - no growth 11/24 - blood cultures 2 - no growth 11/25 - UA - negative 11/25 - sputum no growth 12/02, 12/07: Urine C tropicalis 12/07, 12/10: Sputum: Pseudomonas 12/07, 12/09 BC: NGTD 12/12 Urine: C. Tropicalis HEME: Normocytic anemia - Monitor CBC,s/p transfusion 1u PRBC 12/08, 2units PRBC given 12/12 Transfuse 2unit PRBC today for Hgb 6.4 ENDO: SSI with accuchecks for glycemic control TSH 0.6. PROPH: - Bilateral lower extremity SCDs. Heparin SQ on hold for anemia requiring blood transfusion IV Protonix for prophylaxis LINES: - peripheral IVs, Right IJ vascath placed 12/16 Palliative care is following Level 2 Probable transition to comfort measures in the next few days, after other family members arrive Jan Velez MD Dec 19, 2016 09:31
[2016-12-19] MEDS ORDERED: POTASSIUM CHLORIDE 25 MEQ EFFERVESCENT TAB PO ONE (10:00)
[2016-12-19] MEDS: SODIUM CHLORIDE 0.9% FLUSH 10 ML FLUSH IVF SCH (11:06)
[2016-12-19] MEDS: SODIUM CHLORIDE 0.9% FLUSH 10 ML FLUSH IV FLUSH SCH (11:06)
[2016-12-19] MEDS: CHLORHEXIDINE 0.12% (ORAL KIT) 15 ML CUP MT SCH (11:08)
[2016-12-19] MEDS ORDERED: HYDROmorphone HCL PF 2 MG/ML VIAL IV ONE ×2 (12:00→12:15)
[2016-12-19] MEDS ORDERED: HYOSCYAMINE 0.5 MG/ML AMP IV ONE (12:00)
[2016-12-19] MEDS ORDERED: LORazepam 2 MG/ML VIAL IV ONE ×2 (12:00→12:15)
--- NOTE | 2016-12-19 12:00 | HHI.HCPN ---
Reason for visit a. To assist with evaluation and management of symptoms including: dyspnea b. To assist medical decision maker(s) with: better understanding of current medical conditions; weighing benefits/burdens of medical treatment options; making medical treatment decisions. . Subjective/Interval History Remains on ventilator. Continues to have intermittent fever, and remains profoundly encephalopathic. He is in oliguric renal failure, and has been getting dialyzed the past few days. Lengthy discussion again with family regarding goals, and they want to transition to comfort care and withdraw life support today, see below. . Family/friend interactions I met with the patient's mother, sister, brother, [id number], and friend again. They all agree that they would like to transition to comfort care, requesting withdrawal of life support. . Advance Directives Living Will: Never completed Health Care Surrogate: Copy in medical record Durable Power of Mental Health Program Specialist: Never completed Advance Directive Specifics Health Care Surrogate(s): The patient lacks capacity for decision-making, and it is uncertain whether he will regain that capacity. Initially, he had named his landlord Kerrie Correa as healthcare surrogate on 11/14/16, but she makes it very clear by telephone on 11/18/16 that "since there is family around, I do not want to be the decision-maker for him in any way." I spoke with the patient's 21-year-old son Alexei Mohan [phone] in [place] by telephone, and he reports that he also does not want to be involved in the decision making; "he has not had any impact or played any role in my life, so that would not be appropriate for me to make decisions for him." Thus, the patient's mother Nellie Ying is his healthcare proxy decision-maker. Significant change in goals: Transition to comfort care, withdrawal of life support today . Objective Vital Signs Date Time Temp Pulse Resp B/P Pulse Ox O2 Delivery O2 Flow Rate FiO2 12/19/16 08:57 100 35 12/19/16 07:00 100 Mechanical Ventilator 35 12/19/16 06:00 101 12/19/16 04:57 22 12/19/16 04:12 100 35 12/19/16 04:00 100 12/19/16 04:00 35 12/19/16 04:00 99.7 100 22 104/57 100 12/19/16 02:00 103 12/19/16 01:09 100 35 12/19/16 00:00 98.3 97 20 100/52 100 12/19/16 00:00 97 12/19/16 00:00 35 12/18/16 22:00 104 12/18/16 20:51 100 35 12/18/16 20:00 35 12/18/16 20:00 103 12/18/16 20:00 98.2 103 23 109/57 100 12/18/16 19:00 100 Mechanical Ventilator 35 12/18/16 18:00 102 12/18/16 16:00 100.1 104 31 107/59 100 12/18/16 16:00 104 12/18/16 16:00 35 12/18/16 16:00 104 31 107/59 100 12/18/16 15:59 100 35 12/18/16 15:05 103 25 100 12/18/16 15:00 104 34 106/55 100 12/18/16 14:50 104 29 100 12/18/16 14:00 35 12/18/16 14:00 108 12/18/16 14:00 106 24 110/56 100 12/18/16 13:00 104 31 109/54 100 12/18/16 12:39 100 35 12/18/16 12:00 99.1 108 33 113/56 100 12/18/16 12:00 35 12/18/16 12:00 108 33 113/56 100 12/18/16 12:00 108 Intake & Output 12/19/16 12/19/16 07:00 19:00 Intake Total 1520 ml Output Total 478 ml Balance 1042 ml IV Total 680 ml Albumin 100 ml Packed Cells 740 ml Output Urine Total 10 ml Stool Total 400 ml Gastric Drainage Total 50 ml Chest Tube Drainage Total 18 ml Physical Exam CONSTITUTIONAL/GENERAL: This is an adequately nourished patient, on the ventilator in [facility], on restraints TUBES/LINES/DRAINS: Central line, trach, peg, Santana catheter SKIN: No jaundice, rashes. He has multiple small, healing punctures and abrasions about his feet and ankles . CARDIOVASCULAR: Regular rate and rhythm with grade 2 systolic murmur. No JVD. Peripheral pulses symmetric. RESPIRATORY/CHEST: Symmetric, unlabored respirations. Scattered rhonchi GASTROINTESTINAL: Abdomen soft, nondistended. No hepato-splenomegaly, or palpable masses. No guarding. Bowel sounds present. MUSCULOSKELETAL: Extremities with diffuse edema NEUROLOGICAL: Moves occasionally, does not track even though eyes open PSYCHIATRIC: Unable to evaluate due to clinical condition . Diagnostic Tests Laboratory Laboratory Tests Test 12/17/16 12/17/16 12/18/16 12/18/16 08:40 14:47 06:30 11:14 White Blood Count 12.6 TH/MM3 12.8 TH/MM3 (4.0-11.0) (4.0-11.0) Red Blood Count 2.37 MIL/MM3 2.14 MIL/MM3 (4.50-5.90) (4.50-5.90) Hemoglobin 7.2 GM/DL 6.4 GM/DL (13.0-17.0) (13.0-17.0) Hematocrit 21.6 % 19.1 % (39.0-51.0) (39.0-51.0) Mean Corpuscular Volume 91.1 FL 89.0 FL (80.0-100.0) (80.0-100.0) Mean Corpuscular Hemoglobin 30.3 PG 29.7 PG (27.0-34.0) (27.0-34.0) Mean Corpuscular Hemoglobin 33.2 % 33.3 % Concent (32.0-36.0) (32.0-36.0) Red Cell Distribution Width 17.0 % 17.0 % (11.6-17.2) (11.6-17.2) Platelet Count 177 TH/MM3 192 TH/MM3 (150-450) (150-450) Mean Platelet Volume 9.6 FL 8.8 FL (7.0-11.0) (7.0-11.0) Neutrophils (%) (Auto) 69.4 % 70.4 % (16.0-70.0) (16.0-70.0) Lymphocytes (%) (Auto) 24.9 % 25.1 % (9.0-44.0) (9.0-44.0) Monocytes (%) (Auto) 5.3 % (0.0-8.0) 4.3 % (0.0-8.0) Eosinophils (%) (Auto) 0.1 % (0.0-4.0) 0.1 % (0.0-4.0) Basophils (%) (Auto) 0.3 % (0.0-2.0) 0.1 % (0.0-2.0) Neutrophils # (Auto) 8.8 TH/MM3 9.0 TH/MM3 (1.8-7.7) (1.8-7.7) Lymphocytes # (Auto) 3.1 TH/MM3 3.2 TH/MM3 (1.0-4.8) (1.0-4.8) Monocytes # (Auto) 0.7 TH/MM3 0.6 TH/MM3 (0-0.9) (0-0.9) Eosinophils # (Auto) 0.0 TH/MM3 0.0 TH/MM3 (0-0.4) (0-0.4) Basophils # (Auto) 0.0 TH/MM3 0.0 TH/MM3 (0-0.2) (0-0.2) CBC Comment DIFF FINAL DIFF FINAL Differential Comment Sodium Level 140 MEQ/L 143 MEQ/L (136-145) (136-145) Potassium Level 3.2 MEQ/L 2.7 MEQ/L (3.5-5.1) (3.5-5.1) Chloride Level 104 MEQ/L 102 MEQ/L (98-107) (98-107) Carbon Dioxide Level 19.1 MEQ/L 24.6 MEQ/L (21.0-32.0) (21.0-32.0) Anion Gap 17 MEQ/L (5-15) 16 MEQ/L (5-15) Blood Urea Nitrogen 75 MG/DL (7-18) 64 MG/DL (7-18) Creatinine 4.53 MG/DL 4.33 MG/DL (0.60-1.30) (0.60-1.30) Estimat Glomerular Filtration 14 ML/MIN (>89) 14 ML/MIN (>89) Rate Random Glucose 153 MG/DL 99 MG/DL (74-106) (74-106) Calcium Level 7.9 MG/DL 7.9 MG/DL (8.5-10.1) (8.5-10.1) Blood Gas Puncture Site LT RADIAL Blood Gas Patient Temperature 98.6 Blood Gas HCO3 24 mmol/L (22-26) Blood Gas Base Excess 0.7 mmol/L (-2-2) Blood Gas Oxygen Saturation 93 % (90-100) Arterial Blood pH 7.46 (7.380-7.420) Arterial Blood Partial 35 mmHg (38-42) Pressure CO2 Arterial Blood Partial 78 mmHg Pressure O2 (61-120) Arterial Blood Oxygen Content 10.1 Vol % (12.0-20.0) Arterial Blood 2.1 % (0-4) Carboxyhemoglobin Arterial Blood Methemoglobin 1.5 % (0-2) Blood Gas Hemoglobin 7.6 G/DL (12.0-16.0) Oxygen Delivery Device VENTILATOR Blood Gas Ventilator Setting Blood Gas Inspired Oxygen 35 % Blood Type A POSITIVE Antibody Screen NEGATIVE Crossmatch Leukocyte-Reduced Red Blood Cells Blood Bank Comment Test 12/19/16 05:18 White Blood Count 10.8 TH/MM3 (4.0-11.0) Red Blood Count 2.50 MIL/MM3 (4.50-5.90) Hemoglobin 7.7 GM/DL (13.0-17.0) Hematocrit 22.1 % (39.0-51.0) Mean Corpuscular Volume 88.7 FL (80.0-100.0) Mean Corpuscular Hemoglobin 30.8 PG (27.0-34.0) Mean Corpuscular Hemoglobin 34.8 % Concent (32.0-36.0) Red Cell Distribution Width 16.2 % (11.6-17.2) Platelet Count 174 TH/MM3 (150-450) Mean Platelet Volume 8.4 FL (7.0-11.0) Neutrophils (%) (Auto) 70.5 % (16.0-70.0) Lymphocytes (%) (Auto) 22.6 % (9.0-44.0) Monocytes (%) (Auto) 6.1 % (0.0-8.0) Eosinophils (%) (Auto) 0.2 % (0.0-4.0) Basophils (%) (Auto) 0.6 % (0.0-2.0) Neutrophils # (Auto) 7.6 TH/MM3 (1.8-7.7) Lymphocytes # (Auto) 2.4 TH/MM3 (1.0-4.8) Monocytes # (Auto) 0.7 TH/MM3 (0-0.9) Eosinophils # (Auto) 0.0 TH/MM3 (0-0.4) Basophils # (Auto) 0.1 TH/MM3 (0-0.2) CBC Comment DIFF FINAL Differential Comment Sodium Level 142 MEQ/L (136-145) Potassium Level 2.8 MEQ/L (3.5-5.1) Chloride Level 102 MEQ/L (98-107) Carbon Dioxide Level 23.7 MEQ/L (21.0-32.0) Anion Gap 16 MEQ/L (5-15) Blood Urea Nitrogen 72 MG/DL (7-18) Creatinine 5.06 MG/DL (0.60-1.30) Estimat Glomerular Filtration 12 ML/MIN (>89) Rate Random Glucose 92 MG/DL (74-106) Calcium Level 7.8 MG/DL (8.5-10.1) Result Diagram: 12/19/1618 12/19/16517 Microbiology Microbiology Date/Time Procedure Status Source Growth 12/18/16 06:24 Aerobic Blood Culture - Preliminary Resulted Blood Peripheral NO GROWTH IN 1 DAY 12/18/16 06:24 Anaerobic Blood Culture - Preliminary Resulted Blood Peripheral NO GROWTH IN 1 DAY 12/18/16 06:30 Aerobic Blood Culture - Preliminary Resulted Blood Peripheral NO GROWTH IN 1 DAY 12/18/16 06:30 Anaerobic Blood Culture - Preliminary Resulted Blood Peripheral NO GROWTH IN 1 DAY Procedures Thoracentesis and right (pigtail) thoracostomy 11/14/16 INTUBATION 11/16/16 Bronchoscopy 11/16/16 . Assessment and Plan Disease Oriented Problem List: (1) respiratory failure (2) severe encephalopathy, likely due to sepsis and multiple embolic infarctions (3) septic shock (4) MSSA sepsis (5) multiple pulmonary cavitary lesions (6) aortic valve endocarditis (7) aortic regurgitation Symptom Scale: (1) dyspnea 0-10 Scale: Unable to quantify (2) pain 0-10 Scale: Unable to quantify Pertinent Non-Medical Issues Psychosocial: Originally from [place], living here for 30 years. Never . One estranged son in [place]. Spiritual: The patient is not and has not ever been spiritual or taoist person according to the family, but the family does want the reference assistant to continue to come and visit. Legal: The patient lacks capacity for decision-making, and it it is uncertain whether he will regain that capacity. Initially, he had named his landlord Kerrie Correa as healthcare surrogate, but she makes it very clear by telephone [phone] on 11/18/16 that "since there is family around, I do not want to be the decision-maker for him in any way." I spoke with the patient's 21-year-old son Alexei Mohan [phone] in [place] by telephone, and he reports that he also does not want to be involved in the decision making; "he has not had any impact or played any role in my life, so that would not be appropriate for me to make decisions for him." Thus, the patient's mother Nellie Ying is his healthcare proxy decision-maker. Ethical issues impacting care: None . Important Contacts Mother: Nellie Ying <----> PROXY DECISION-MAKER -- [phone] Son: (estranged for many years) Adarsh Mohan [phone] . Prognosis The patient has multisystem organ failure and septic shock with a large vegetation on his aortic valve, and his overall prognosis is quite guarded at best, and poor at worse. At risk for decompensation, sudden setback and . . Code Status: No Code Plan == DO NOT RESUSCITATE, per request of mother, sister, and longtime friend 12/18/16 == DECISION-MAKING: The patient lacks capacity for decision-making; mother is decision making proxy. == GOALS: 12/19/16: Met with the patient's mother and multiple other family members; they all agree that they want to transition to comfort care now, withdrawing life support today to allow natural . == SYMPTOMS: Orders written for comfort care, withdrawal of life support ==Palliative Care will continue to follow the patient during this hospitalization. . Time Spent Total Floor Time (mins): 45 Face to Face Time (mins): 10 >50% Counseling/Coord of Care: Yes (d/w Dr. Velez) Attestation To help prompt me to consider important information that might be impacting today's encounter and assessment, information from prior notes written by myself or my colleagues may have been "brought forward" into today's note. My signature on this note, however, is an attestation that I personally performed the exam, history, and/or decision-making noted today, and, unless otherwise indicated, the interactions with patient, family, and staff as well as the review of records all occurred today. I also attest that the listed assessment and stated plan reflect my best clinical judgment today based on the combination of historical information, prior notes, and today's exam/ interactions. When time spent is documented, it refers only to time spent today by the signer, or if indicated, combined time spent today by collaborating physician/nurse practitioner. Radha Carpenter MD Dec 19, 2016 12:00
[2016-12-19] MEDS ORDERED: HALOPERIDOL LACTATE 5 MG/ML AMP IV PUSH PRN (12:15)
[2016-12-19] MEDS ORDERED: HYDROmorphone HCL PF 2 MG/ML VIAL IV PRN ×2 (12:30)
[2016-12-19] MEDS ORDERED: HYOSCYAMINE 0.5 MG/ML AMP IV PRN (12:30)
[2016-12-19] MEDS ORDERED: LORazepam 2 MG/ML VIAL IV PRN ×2 (12:30)
[2016-12-19] MEDS ORDERED: ACETAMINOPHEN 650 MG SUPP RECTAL PRN (12:30)
[2016-12-19] MEDS ORDERED: LORazepam 2 MG/ML VIAL IVS PRN (12:30)
[2016-12-19] MEDS ORDERED: BISACODYL 10 MG SUPP RECTAL PRN (12:30)
--- NOTE | 2016-12-19 13:00 | HHI.NPPN ---
Subjective General Problems: Anemia, Edema, Hypotension Renal Failure: Acute History of Present Illness This is 56 years old male, with Resp. failure, post tracheostomy, develop MENDY. Additional Remarks Patient remain on the vent. his eyes open, not following any commands. Objective Data Data 12/18/16 12/19/16 19:00 07:00 Intake Total 315 ml 1520 ml Output Total 545 ml 478 ml Balance -230 ml 1042 ml IV Total 265 ml 680 ml Albumin 100 ml Packed Cells 740 ml Tube Irrigant 50 ml Output Urine Total 25 ml 10 ml Stool Total 500 ml 400 ml Gastric Drainage Total 50 ml Chest Tube Drainage Total 20 ml 18 ml Vital Signs Date Time Temp Pulse Resp B/P Pulse Ox O2 Delivery O2 Flow Rate FiO2 12/19/16 08:57 100 35 12/19/16 08:00 35 12/19/16 07:00 100 Mechanical Ventilator 35 12/19/16 06:00 101 12/19/16 04:57 22 12/19/16 04:12 100 35 12/19/16 04:00 100 12/19/16 04:00 35 12/19/16 04:00 99.7 100 22 104/57 100 12/19/16 02:00 103 12/19/16 01:09 100 35 12/19/16 00:00 98.3 97 20 100/52 100 12/19/16 00:00 97 12/19/16 00:00 35 12/18/16 22:00 104 12/18/16 20:51 100 35 12/18/16 20:00 35 12/18/16 20:00 103 12/18/16 20:00 98.2 103 23 109/57 100 12/18/16 19:00 100 Mechanical Ventilator 35 12/18/16 18:00 102 12/18/16 16:00 100.1 104 31 107/59 100 12/18/16 16:00 104 12/18/16 16:00 35 12/18/16 16:00 104 31 107/59 100 12/18/16 15:59 100 35 12/18/16 15:05 103 25 100 12/18/16 15:00 104 34 106/55 100 12/18/16 14:50 104 29 100 12/18/16 14:00 35 12/18/16 14:00 108 12/18/16 14:00 106 24 110/56 100 8/2/17 13:00 104 31 109/54 100 -: 12/19/16 0518 12/19/16 0518 Physical Exam General Appearance: Anxious Appearance Remarks On the vent. with Trach. Eyes Eye Exam: Pupils Equal Throat Throat Exam: Oral Mucosa [place] & Moist Neck Neck Exam: Neck Supple Pulmonary Resp Exam: No Distress, Crackles, Rhonchi, Decreased Bases, Diminished Breath Sounds Cardiology CV Exam: Tachycardia Gastrointestinal/Abdomen GI Exam: Soft, Non-Tender, Bowel Sounds Present, Distended Extremeties Extremities Exam: Moderate Edema, Pitting Edema, Dependent Edema Neurologic Neuro Exam: Obtunded, Unresponsive Assessment/Plan Assessment Summary: MENDY/Acute Renal Failure, Hypotension Problem List: (1) Leukocytosis (2) Acute respiratory insufficiency (3) Sepsis (4) multiple pulmonary cavitary lesions (5) severe encephalopathy, likely due to sepsis and multiple embolic infarctions (6) Acute kidney injury 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 Urine out put declined BP low. Started on HD as Creatinine continue to increase. Patient's sister at bedside. The family decided to withdraw all treatment including Dialysis. I will sign off from Nephrology, please call again if needed. Problem Qualifiers (1) Sepsis: Qualified Code: A41.9 - Sepsis, due to unspecified organism Otoniel Mireles MD Dec 19, 2016 13:00
[2016-12-19] MEDS ORDERED: HYDROmorphone HCL PF 2 MG/ML VIAL IV SCH (16:00)
[2016-12-19] MEDS ORDERED: LORazepam 2 MG/ML VIAL IV SCH (16:00)
--- NOTE | 2016-12-20 18:41 | HHI.DS ---
Summary Note Date of : Dec 19, 2016 Time Of : 1542 Admission Date Nov 13, 2016 at 17:10 Admitting Diagnosis Sepsis, Pulmonary Cavitary Lesions, Pleural Effusion, Hypoxia Diagnosis at Time of : (1) Severe sepsis ICD Code: A41.9 Diagnosis: Principal (2) Hyponatremia ICD Code: E87.1 Diagnosis: Principal (3) Hypoxia ICD Code: R09.02 Diagnosis: Principal (4) Cavitary lung disease ICD Code: J98.4 Diagnosis: Principal (5) Acute respiratory failure with hypoxia ICD Code: J96.01 Diagnosis: Principal (6) Endocarditis ICD Code: I38 Diagnosis: Principal (7) multiple pulmonary cavitary lesions Diagnosis: Principal (8) septic shock Diagnosis: Principal (9) aortic valve endocarditis Diagnosis: Principal (10) MSSA sepsis Diagnosis: Principal (11) Empyema ICD Code: J86.9 Diagnosis: Principal (12) Acute kidney injury ICD Code: N17.9 Diagnosis: Principal (13) Pneumothorax ICD Code: J93.9 Diagnosis: Principal (14) severe encephalopathy, likely due to sepsis and multiple embolic infarctions Diagnosis: Principal (15) aortic regurgitation Diagnosis: Principal (16) Cavitary pneumonia ICD Code: J18.9 Diagnosis: Principal (17) Leukocytosis ICD Code: D72.829 Diagnosis: Principal (18) Pleural effusion ICD Code: J90 Diagnosis: Principal Brief History 56-year-old male is brought to the emergency department by EMS for evaluation of generalized weakness, confusion for about 2 weeks, and also increasing shortness of breath. His oxygen saturation was 88% on room air. EMS administered breathing treatments and Solu-Medrol 125 mg 1 and placed him on nasal cannula. Patient states that he had been sick for almost 10 days, but he is a poor historian. He had a productive cough, but reports no hematemesis or weight loss. He states that it was his neighbor who made him called EMS. He has no past medical history and last time had seen a doctor was about 15 years ago. He denies any fevers but reports some night sweats and chills. He was tachycardic with a heart rate of 115 bpm, had severe leukocytosis with a white count of 35,000 with 91% neutrophils. CMP shows hyponatremia with a sodium of 126. Lactic acid is 2.4. His Chest x-ray shows large 7.7 x 7.8 cm cavitary right midlung lesion with associated right-sided pleural effusion. Subcentimeter left mid lung pulmonary nodules. Patient received 1 L normal saline bolus and Zosyn 4.5 g and Zithromax 500 mg IV and was placed on TB/ respiratory isolation. He has been being in alf 2 years ago increasing his risk of tuberculosis. CT pulmonary angiogram negative for PE but showed multiple cavitary lesions within both lungs with the largest measuring 9.5 cm in the right upper lobe. Moderate size right pleural effusion. I evaluated the patient in the emergency department. Patient appears critically ill in moderate distress mildly tachypneic, sweating. I performed a bedside ultrasound which showed a right effusion which is large. The thoracentesis was performed and 1 L of cloudy dark pleural fluid was removed. Patient will be continued on Zosyn and Levaquin and vancomycin. ID consulted and I discussed with Dr. Steele-she recommended no empiric treatments for TB. CBC/BMP: 12/19/16 0518 12/19/16 0518 Significant Findings Laboratory Tests Test 12/18/16 12/19/16 06:30 05:18 White Blood Count 12.8 TH/MM3 (4.0-11.0) Red Blood Count 2.14 MIL/MM3 2.50 MIL/MM3 (4.50-5.90) (4.50-5.90) Hemoglobin 6.4 GM/DL 7.7 GM/DL (13.0-17.0) (13.0-17.0) Hematocrit 19.1 % 22.1 % (39.0-51.0) (39.0-51.0) Neutrophils (%) (Auto) 70.4 % 70.5 % (16.0-70.0) (16.0-70.0) Neutrophils # (Auto) 9.0 TH/MM3 (1.8-7.7) Potassium Level 2.7 MEQ/L 2.8 MEQ/L (3.5-5.1) (3.5-5.1) Anion Gap 16 MEQ/L (5-15) 16 MEQ/L (5-15) Blood Urea Nitrogen 64 MG/DL (7-18) 72 MG/DL (7-18) Creatinine 4.33 MG/DL 5.06 MG/DL (0.60-1.30) (0.60-1.30) Estimat Glomerular Filtration 14 ML/MIN (>89) 12 ML/MIN (>89) Rate Calcium Level 7.9 MG/DL 7.8 MG/DL (8.5-10.1) (8.5-10.1) Imaging Last Impressions Chest X-Ray 12/17/16 0600 Signed Impressions: Service Date/Time: Saturday, December 17, 2016 03:03 - CONCLUSION: 1. Interval placement of right internal jugular central venous line with no new pneumothorax. 2. Right-sided chest tubes remain in place with stable lucency at the right lung base. Krzysztof Mendez MD Abdomen X-Ray 12/17/16 0000 Signed Impressions: Service Date/Time: Saturday, December 17, 2016 13:15 - CONCLUSION: Stable examination with mildly dilated small bowel similar to the prior study from December 05, 2016. Agustin Bonner MD Chest Tube Insertion 12/09/16 0000 Signed Impressions: Service Date/Time: Friday, December 09, 2016 14:53 - CONCLUSION: Uncomplicated chest tube placement as above. Agustin Pérez MD Renal Ultrasound 12/07/16 0000 Signed Impressions: Service Date/Time: Wednesday, December 07, 2016 10:08 - CONCLUSION: Unremarkable renal ultrasound and a trace of ascites identified. Reba Banerjee MD Small Bowel X-Ray 12/06/16 0000 Signed Impressions: Service Date/Time: Tuesday, December 06, 2016 16:55 - CONCLUSION: Distended loops of small bowel could be due to significant ileus versus partial small bowel obstruction and contrast gets into the colon at 13 hours. Reba Banerjee MD Abdomen Ultrasound 12/06/16 0000 Signed Impressions: Service Date/Time: Tuesday, December 06, 2016 11:31 - CONCLUSION: No free fluid is present. Agustin Bonner MD Abdomen/Pelvis CT 12/05/16 0000 Signed Impressions: Service Date/Time: November 23:28 - CONCLUSION: 1. Small bowel dilatation which may related to ileus or obstruction. The findings are similar to the prior exam. 2. Moderate ascites 3. Small pneumoperitoneum is present. Toribio Magana MD Brain MRI 11/21/16 0000 Signed Impressions: Service Date/Time: November 12:33 - CONCLUSION: Multifocal areas of restricted diffusion primarily in the periventricular and subcortical white matter bilaterally but also cortically based in the right frontal lobe. Findings likely represent ischemic change likely related to septic emboli given the patient's clinical history. No abscess or enhancing lesion is visualized. Agustin Bonner MD Head CT 11/17/16 0600 Signed Impressions: Service Date/Time: Thursday, November 17, 2016 10:39 - CONCLUSION: No significant change has occurred. Deven Urrutia MD Chest CT 11/16/16 0000 Signed Impressions: Service Date/Time: Wednesday, November 16, 2016 20:36 - CONCLUSION: 1. New right chest tube in the posterior superior right pleural space. There continues to be a moderate right pleural effusion primarily seen at the base. Some degree of loculation may be present inferiorly. The effusion does not layer posteriorly. There are scattered punctate areas of air within the pleural space inferiorly on the right. There is a solitary small area of air within the mild left pleural effusion. 2. Numerous irregular masses seen throughout both lungs some which are cavitary. These are nonspecific. Inflammatory masses needs be suspected. The multiplicity raises possibility of septic emboli. Agustin Price MD CT Angiography 11/13/16 1328 Signed Impressions: Service Date/Time: Sunday, November 13, 2016 15:50 - CONCLUSION: 1. Multiple cavitary lesions within both lungs with the largest measuring 9.5 cm in the right upper lobe. Differential diagnosis includes infectious and neoplastic etiologies. 2. Moderate sized right pleural effusion with adjacent compressive atelectasis and/or infiltrate. 3. Cardiomegaly and coronary artery calcifications. 4. Subcarinal mediastinal lymphadenopathy. 5. Degenerative changes throughout the thoracic spine. Jed Ponce MD Hospital Course 56-year-old male is brought to the emergency department by EMS for evaluation of generalized weakness, confusion for about 2 weeks, and also increasing shortness of breath. His oxygen saturation was 88% on room air. EMS administered breathing treatments and Solu-Medrol 125 mg 1 and placed him on nasal cannula. Patient states that he had been sick for almost 10 days, but he is a poor historian. He had a productive cough, but reports no hematemesis or weight loss. He states that it was his neighbor who made him called EMS. He has no past medical history and last time had seen a doctor was about 15 years ago. He denies any fevers but reports some night sweats and chills. He was tachycardic with a heart rate of 115 bpm, had severe leukocytosis with a white count of 35,000 with 91% neutrophils. CMP shows hyponatremia with a sodium of 126. Lactic acid is 2.4. His Chest x-ray shows large 7.7 x 7.8 cm cavitary right midlung lesion with associated right-sided pleural effusion. Subcentimeter left mid lung pulmonary nodules. Patient received 1 L normal saline bolus and Zosyn 4.5 g and Zithromax 500 mg IV and was placed on TB/ respiratory isolation. He has been being in alf 2 years ago increasing his risk of tuberculosis. CT pulmonary angiogram negative for PE but showed multiple cavitary lesions within both lungs with the largest measuring 9.5 cm in the right upper lobe. Moderate size right pleural effusion. Dr. Velez evaluated the patient in the emergency department. Patient appears critically ill in moderate distress mildly tachypneic, sweating. I performed a bedside ultrasound which showed a right effusion which is large. The thoracentesis was performed and 1 L of cloudy dark pleural fluid was removed. Patient will be continued on Zosyn and Levaquin and vancomycin. ID consulted and I discussed with Dr. Steele-she recommended no empiric treatments for TB. Hospital course: 11/14/16: Patient seen and examined complaints of severe epigastric and periumbilical abdominal pain. Patient remains oriented to person. His white count is slightly improved from 35,000-28,9000. Na improved to 136. I have ordered a STAT CT abd/pelvis with IV contrast. Chest x-ray shows reaccumulation of right pleural effusion-fluid chemistries are pending but cell count indicates at least a parapneumonic effusion and patient will need a pigtail chest tube 11/15: Patient pulled his right-sided pigtail catheter out overnight last night. Currently nasal cannula in no acute distress. Afebrile. Continues to have a leukocytosis. 11/16: Currently on room air. Hold out his IVs reportedly overnight last night. Requesting diet. Awake and alert and following commands. 11/17: Intubated yesterday due to acute hypercapnic respiratory failure. Hypoxic post intubation requiring right chest tube placement, bronchoscopy and Flolan. Bronchoscopy revealed thick mucous plugging at bilateral right and left mainstem which were clear. Improved oxygenation over the past 12 hours. Afebrile. 11/18 Patient remains sedated with Diprivan, Fentanyl and intubated. On Vasopressin and Neosyn 120 mics. 11/19 Patient is sedated with Diprivan, Fentanyl and intubated. Afebrile. Off all pressors. Afebrile. WBC is trending down 30 today from 50. 11/20: Remains severely septic and encephalopathic even though weaned off all pressors. White count still elevated but trending down. Became extremely tachycardic and tachypneic on lowering sedation. We'll check MRI of the brain to rule out embolic infarct. Family at the bedside updated 11/21 Remains heavily sedated, remains encephalopathic. MRI brain is pending. Family is at bedside. Remains critically with resp failure severe from endocarditis, now unable to wean off the ventilator due to severe metabolic encephalopathy 11/22 No events overnight. Sedated with Diprivan, fentanyl and intubated. Afebrile. MRI brain yesterday showed ischemic changes likely related to septic emboli. 11/23: Patient remains encephalopathic, severe hyponatremia possible contributing , Na is 157 today. Currently on Precedex and fentanyl. CXR shows increasing L effusion 11/24: Patient more awake today. Follows Commands but did not tolerate spontaneous breathing trials. Had left pigtail chest tube placed yesterday 1.6 L transudative fluid removal since placement 11/25 Patient is sedated with Diprivan, Fentanyl and intubated. T:99.9 11/26 No events overnight. Sedated and intubated. Patient was on CPAP x 3 hrs yesterday then became tachypneic. 11/27: Resting in bed comfortably on Diprivan at 40 mics grams per kilogram per minute and fentanyl drip at 200 an hour. Tolerated PSV trial 2 hours yesterday before becoming tachypnea. Positive BM via fecal containment device 1100 cc. Yesterday according to RN was following commands. 11/28: Currently afebrile. Tolerating PSV trials 1.5 hours today for became tachypneic. Awake and alert and follows commands. Neurologically intact. Positive BM. 11/29: Tmax 99.6. Status post percutaneous tracheostomy secondary to failed extubation trials. Plan for PEG tube today. Awake and interactive the ventilator on sedation vacation. 11/30: currently 98.8. Status post percutaneous tracheostomy Dr. Baker yesterday and PEG tube placement by Dr. Figueroa. Tube feeds will be resumed today. Otherwise appears comfortable ventilator. Arousable and follows commands on sedation vacation. 12/01: Patient becomes tachypneic on attempted CPAP, even with high pressure support. I will add by mouth Ativan to reduce IV sedation requirement. Decreasing chest tube output 12/02: Patient failed spontaneous breathing trial clinically today secondary to severe tachypnea and tachycardia. His spiking fever upto 103. Panculture blood , dose of vancomycin given. Most likely patient is getting new sepsis 12/03: Continued to spike fever up to 102. Dose of vancomycin was given yesterday. Patient tolerated CPAP for 3 hours today, remains encephalopathic though. 12/04: Patient more awake alert follows commands, tolerated CPAP but did not tolerate TPs. Abdomen significantly distended, KUB shows ileus. Continues to spike high fever. Diflucan vancomycin added by ID and continue Ancef 12/05: Abdomen remains distended, CT yesterday show intra abdominal free air. Unclear whether related to PEG or perforation. D/W with Dr. Baker, will get repeat CT with oral contrast today. Zosyn added by ID 12/06 Patient is sedated with Fentanyl and Diprivan. CT abdomen/pelvis yesterday sowed small bowel dilation ( ileus vs obstruction) 12/07 Patient remains intubated on low dose Diprivan and Fentanyl infusion however he is awake. Tolerated CPAP all day yesterday T: 100.0 last night. SB series showed distended loops of small bowel. Renal function worse today with Cr: 2.4 from 1.96. 12/08 No events overnight. On Diprivan and Fentanyl drip for sedation. T:99.9 last night. 12/09 Patient remains on ventilator via trach, sedated with Diprivan and Fentanyl. T: 101.0 last night. s/p transfusion 1unit PRBC yesterday. 12/10 Patient is sedate with Dip, Fentanyl and intubated. T: 101.6 at 8 am. 12/11: patient remains on sedation for his agitated delirium. remains febrile today. 25kg up from admission and Cr uptrending. bedside critical care echo demonstrates 2cm ivc without respiratory variation, RVSP 48 mmHg, mild RV dilation, normal LV function. by physical exam, grossly volume overloaded. Subjective 12/12: patient less agitated. following commands. still did not diurese well on intermittent bumex. BNP severely elevated. on my examination today patient with leaking trach despite multiple inflation of balloon. trach swapped out over cook exchange catheter with good seal for new trach (8.0 shiley cuffed). not making improvements. 12/13 No events overnight. On Bumex drip 1mg/hr, T: 100.8. Off sedation. 12/14 Patient is on ventilator via trach. T;100.7 last night. On Bumex drip 0.5mg /hr. Renal function worse Cr: 3.67 from 3.20 with UOP 1150ml in 24 hrs. 12/15 Patient remains on Bumex drip 0.5mg/hr however renal function is worsening with Cr: 4.27 from 3.67 and UOP: 400ml in 24 hrs. Afebrile. Tolerated CPAP all day yesterday. 12/16 Patient remains on ventilator via trach, renal function continue to decline with Cr: 4.83 from 4.72 with poor UOP. Vascath just placed for HD. Afebrile. On Bicarb drip. 12/17 Patient is on ventilator via trach s/p HD yesterday with removal 2L for another HD session today. Afebrile. 12/18 No events overnight. Spiked fever with Tmax: 103.1 last night. s/p HD yesterday with 3L removal. 12/19: No improvement in mental status.According to palliative care notes, family will likely proceed to withdrawal of life support and cessation of dialysis in the next few days. They are allowing time for other family to visit Comfort measure orders placed by palliative care team and patient was removed from ventilator and at 1542 on 12/19/16 Jan Velez MD Dec 20, 2016 18:41
== END 2016-12-19 15:42 | disposition expired | DRG 4 ==
LOC: NEPE 13:08 → NEDA 17:10 → HIMN 20:35
PROVIDERS: ADMIT Internal Medicine; ATTEND Internal Medicine
PROC: 0W993ZZ Drainage of Right Pleural Cavity, Percutaneous Approach (ICD-10-PCS; 2016-11-13)
PROC: 0W9930Z Drainage of Right Pleural Cavity with Drainage Device, Percutaneous Approach (ICD-10-PCS; 2016-11-13)
PROC: B246ZZ4 Ultrasonography of Right and Left Heart, Transesophageal (ICD-10-PCS; 2016-11-15)
PROC: 5A1955Z Respiratory Ventilation, Greater than 96 Consecutive Hours (ICD-10-PCS; 2016-11-16)
PROC: 04HY32Z Insertion of Monitoring Device into Lower Artery, Percutaneous Approach (ICD-10-PCS; 2016-11-16)
PROC: 0B9J8ZX Drainage of Left Lower Lung Lobe, Via Natural or Artificial Opening Endoscopic, Diagnostic (ICD-10-PCS; 2016-11-16)
PROC: 0B9C8ZX Drainage of Right Upper Lung Lobe, Via Natural or Artificial Opening Endoscopic, Diagnostic (ICD-10-PCS; 2016-11-16)
PROC: 0B9G8ZX Drainage of Left Upper Lung Lobe, Via Natural or Artificial Opening Endoscopic, Diagnostic (ICD-10-PCS; 2016-11-16)
PROC: 0B9D8ZX Drainage of Right Middle Lung Lobe, Via Natural or Artificial Opening Endoscopic, Diagnostic (ICD-10-PCS; 2016-11-16)
PROC: 0B9F8ZX Drainage of Right Lower Lung Lobe, Via Natural or Artificial Opening Endoscopic, Diagnostic (ICD-10-PCS; 2016-11-16)
PROC: 0BC78ZZ Extirpation of Matter from Left Main Bronchus, Via Natural or Artificial Opening Endoscopic (ICD-10-PCS; 2016-11-16)
PROC: 0BC38ZZ Extirpation of Matter from Right Main Bronchus, Via Natural or Artificial Opening Endoscopic (ICD-10-PCS; 2016-11-16)
PROC: 02HV33Z Insertion of Infusion Device into Superior Vena Cava, Percutaneous Approach (ICD-10-PCS; 2016-11-16)
PROC: B544ZZA Ultrasonography of Left Jugular Veins, Guidance (ICD-10-PCS; 2016-11-16)
PROC: 0BH17EZ Insertion of Endotracheal Airway into Trachea, Via Natural or Artificial Opening (ICD-10-PCS; 2016-11-16)
PROC: 0W9930Z Drainage of Right Pleural Cavity with Drainage Device, Percutaneous Approach (ICD-10-PCS; 2016-11-16)
PROC: 0W9930Z Drainage of Right Pleural Cavity with Drainage Device, Percutaneous Approach (ICD-10-PCS; 2016-11-23)
PROC: 30233N1 Transfusion of Nonautologous Red Blood Cells into Peripheral Vein, Percutaneous Approach (ICD-10-PCS; 2016-11-27)
PROC: 0BJ08ZZ Inspection of Tracheobronchial Tree, Via Natural or Artificial Opening Endoscopic (ICD-10-PCS; 2016-11-29)
PROC: 0DH68UZ Insertion of Feeding Device into Stomach, Via Natural or Artificial Opening Endoscopic (ICD-10-PCS; 2016-11-29)
PROC: 0DJ08ZZ Inspection of Upper Intestinal Tract, Via Natural or Artificial Opening Endoscopic (ICD-10-PCS; 2016-11-29)
PROC: 0B113F4 Bypass Trachea to Cutaneous with Tracheostomy Device, Percutaneous Approach (ICD-10-PCS; principal; 2016-11-29 15:20)
PROC: 0B21XFZ Change Tracheostomy Device in Trachea, External Approach (ICD-10-PCS; 2016-12-12)
PROC: 02HV33Z Insertion of Infusion Device into Superior Vena Cava, Percutaneous Approach (ICD-10-PCS; 2016-12-16)
PROC: B543ZZA Ultrasonography of Right Jugular Veins, Guidance (ICD-10-PCS; 2016-12-16)
PROC: 5A1D60Z (ICD-10-PCS; 2016-12-16)
DX: A41.01 Sepsis due to Methicillin susceptible Staphylococcus aureus (principal); I26.90 Septic pulmonary embolism without acute cor pulmonale; N17.0 Acute kidney failure with tubular necrosis; I63.40 Cerebral infarction due to embolism of unspecified cerebral artery; R65.21 Severe sepsis with septic shock; Z51.5 Encounter for palliative care; J96.21 Acute and chronic respiratory failure with hypoxia; I33.0 Acute and subacute infective endocarditis; J90 Pleural effusion, not elsewhere classified; G93.41 Metabolic encephalopathy; J69.0 Pneumonitis due to inhalation of food and vomit; J15.1 Pneumonia due to Pseudomonas; J86.9 Pyothorax without fistula; J15.211 Pneumonia due to Methicillin susceptible Staphylococcus aureus; I76 Septic arterial embolism; D68.9 Coagulation defect, unspecified; J98.11 Atelectasis; E87.2 Acidosis; J93.9 Pneumothorax, unspecified; K56.7 Ileus, unspecified; E22.2 Syndrome of inappropriate secretion of antidiuretic hormone; E87.0 Hyperosmolality and hypernatremia; E44.0 Moderate protein-calorie malnutrition; J94.8 Other specified pleural conditions; R18.8 Other ascites; J95.851 Ventilator associated pneumonia; I50.9 Heart failure, unspecified; E86.0 Dehydration; I25.10 Atherosclerotic heart disease of native coronary artery without angina pectoris; L98.9 Disorder of the skin and subcutaneous tissue, unspecified; J98.09 Other diseases of bronchus, not elsewhere classified; I35.1 Nonrheumatic aortic (valve) insufficiency; D64.9 Anemia, unspecified; I48.91 Unspecified atrial fibrillation; N28.1 Cyst of kidney, acquired; F12.90 Cannabis use, unspecified, uncomplicated; Y84.8 Other medical procedures as the cause of abnormal reaction of the patient, or of later complication, without mention of misadventure at the time of the procedure; Z87.891 Personal history of nicotine dependence; Z66 Do not resuscitate
CPT/HCPCS: 31500; 31600; 31624; 32551; 32557; 36430; 36556; 36600; 70450; 70553; 71010; 71250; 71275; 74000; 74020; 74176; 74177; 74250; 76705; 76775; 76937; 80048; 80053; 80074; 80170; 80202; 80307; 81001; 82140; 82150; 82550; 82552; 82565; 82570; 82805; 82945; 82948; 83605; 83615; 83690; 83735; 83880; 83935; 83986; 84100; 84132; 84155; 84157; 84295; 84300; 84443; 84484; 85007; 85014; 85018; 85025; 85027; 85384; 85610; 85730; 86403; 86703; 86850; 86900; 86901; 86920; 87015; 87040; 87070; 87077; 87086; 87102; 87106; 87116; 87147; 87149; 87186; 87205; 87206; 87493; 87556; 87641; 87798; 87804; 88112; 88305; 89051; 90935; 93005; 93306; 93308; 93312; 93320; 93325; 94002; 94003; 94640; 94664; 94799; 95819; 96361; 96365; 96374; 96375; A7521; A9579; C1729; C1769; C9113; J0456; J0690; J1170; J1325; J1450; J1580; J1644; J1650; J1720; J1815; J1940; J1956; J1980; J2060; J2250; J2270; J2370; J2405; J2543; J2765; J3010; J3370; J3411; J3480; J7030; J7040; J7042; J7050; J7060; J7070; J7613; P9016; P9045; P9047; Q4081; Q9963; Q9967